=== PATIENT | female | born 1950 | race Two or more races ===

== ENCOUNTER 2020-06-17 17:35 | Inpatient (IN) | payer MEDICAID ==
[~2020-06-17] VITALS: Ht 157.5 cm; Wt 62.6 kg
[2020-06-17] MEDS ORDERED: cefTRIAXone 1 GM in NS 55 ML IV ONE (17:45)
[2020-06-17] MEDS ORDERED: dexAMETHasone 10mg/ml Inj IV ONE (17:45)
[2020-06-17] MEDS ORDERED: Azithromycin 500 MG in NS 275 ML IVPB ONE (17:45)
[2020-06-17 18:14] VITALS: BP 129/62
[2020-06-17 18:34] LABS: ANION GAP 11 mmol/L (5-15); BLOOD UREA NITROGEN 77 mg/dL (7-18); CALCIUM 8.5 MG/DL (8.5-10.1); CARBON DIOXIDE 27 MMOL/L (21-32); CHLORIDE 108 MMOL/L (98-107); CREATININE 1.6 MG/DL (0.55-1.30); POTASSIUM 3.5 MMOL/L (3.5-5.1); SODIUM 146 MMOL/L (136-145)
[2020-06-17 18:39] LABS: BASOPHILS % (AUTO) 0.2 % (0.0-2.0); HEMOGLOBIN 13.2 G/DL (12.0-16.0); LYMPHOCYTES % (AUTO) 7.4 % (20.0-45.0); MEAN CORPUSCULAR VOLUME 88 FL (80-99); MONOCYTES % (AUTO) 3.3 % (1.0-10.0); NEUTROPHILS % (AUTO) 89.1 % (45.0-75.0); PLATELET COUNT 341 K/UL (150-450); RED BLOOD COUNT 4.43 M/UL (4.20-5.40); RED CELL DISTRIBUTION WIDTH 11.3 % (11.6-14.8); WHITE BLOOD COUNT 15.5 K/UL (4.8-10.8)
--- NOTE | 2020-06-17 18:40 | NUR ---
ED Nurse Note:pt. was BIBA from home with respiratory distress, covid positive, pt. is A/Ox4 blood and cultures sent to labs, given IV fluids and meds, placed on isolation and laboratory monitor
[2020-06-17 18:51] LABS: ALANINE AMINOTRANSFERASE 55 U/L (12-78); ALBUMIN/GLOBULIN RATIO 0.6 (1.0-2.7); ALKALINE PHOSPHATASE 68 U/L (46-116); ASPARTATE AMINO TRANSFERASE 95 U/L (15-37); CREATINE KINASE 542 U/L (26-308); FERRITIN 222 NG/ML (8-388); LACTATE DEHYDROGENASE 1095 U/L (81-234)
--- NOTE | 2020-06-17 19:08 | Emergency Room Report ---
History of Present Illness General Chief Complaint: Dyspnea/Respdistress Source: Patient Present Illness HPI Patient has been ill for 6 days. She had a test for Covid that was positive. She was with her son. She has been having muscle aches. She was feeling dizzy and somewhat out of breath with walking and therefore 911 was called. Apparently they state her initial O2 saturation was 52%. She did not appear to be in distress. They placed the patient on 100% nonrebreather and her oxygen saturation teresa to 88 to 92%. With minimal exertion apparently her oxygen saturation decreased. The patient mainly complains of feeling weakness with trying to ambulate and some dizziness. She is felt feverish but no documented temperature. The patient has a history of hypertension. The patient is prediabetic. No chills, sore throat, chest pain, palpitations, nausea, vomiting, diarrhea, dysuria, abdominal pain, rashes, depression, anxiety, visual changes, headache. 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 Lives with son Reviewed Nursing Documentation: PMH: Agreed; PSxH: Agreed Nursing Documentation-[facility] Past Medical History: No History, Except For Hx Hypertension: Yes Review of Systems All Other Systems: negative except mentioned in HPI Physical Exam Vital Signs Date Time Temp Pulse Resp B/P (MAP) Pulse Ox O2 Delivery O2 Flow Rate FiO2 06/17/20 17:36 100.9 86 16 129/62 (84) 87 Non-Rebreather 15.0 Sp02 EP Interpretation: reviewed, abnormal - Interpreted as low by me General Appearance: GCS 15 - Sometimes slightly confused, non-toxic, mild distress Head: normocephalic Eyes: bilateral eye normal inspection ENT: moist mucus membranes Neck: supple Respiratory: no retraction, no accessory muscle use, respiratory distress - Minimal with tachypnea, crackles Cardiovascular #1: regular rate, rhythm, no edema Cardiovascular #2: 2+ radial (R) Gastrointestinal: normal inspection, non tender, soft, no mass, non-distended, decreased bowel sounds Genitourinary: no CVA tenderness Musculoskeletal: back normal, normal range of motion, no calf tenderness Neurologic: alert, oriented x3, grossly normal Psychiatric: mood/affect normal - Occasionally sometimes confused Skin: no rash, warm/dry Procedures Critical Care Time Critical Care Time Total Critical Care Time: 35 min bedside evaluation and treatment excludes procedures (EKG). Reason for critical care: hypoxia, proning, COVID pneumonia, repeat evaluations Possible complications: hypotension, hypertension, TN, shock, arrhythmias, metabolic acidosis, end organ damage, respiratory failure. Interventions: dexamethasone, antibiotics, oxygen titration, proning, repeat evaluations Course: Covid positive patient presents with hypoxia and respiratory distress. Evaluation reveals bilateral infiltrates. Patient saturations in the low 90s with desaturation with minimal movement. Treatment with dexamethasone and antibiotics. Minimally elevated D-dimer led to administration of Lovenox. Patient still deciding with minimal movement and advised and observed with proning. Improvement with proning. Still the degree of hypoxia needs to be closely watched and therefore the patient needs admission to stepdown unit. Consultations: nursing staff, EMS, family, admitting physician, RT Performed by: Dr. Valenzuela Tolerated well condition = critical Medical Decision Making Diagnostic Impression: Primary Impression: Pneumonia due to COVID-19 virus Additional Impressions: Hypoxia Renal insufficiency Elevated d-dimer ER Course Covid positive patient presents with hypoxia. Differential includes COVID-19 pneumonia, pulmonary embolus, acute myocardial infarction, other pneumonia amongst others. Evaluation includes EKG, chest x-ray and labs. Patient is placed on a knuckle strap sewer. Oxygen is administered. Patient without wheezes but clinically has COVID-19 pneumonia. Patient saturation 93% on 6 L by nasal cannula. Chest x-ray with bilateral infiltrates consistent with Covid pneumonia. Dexamethasone, azithromycin and rocephin ordered. Discussed that mother needs to be admitted with patient's son. Leukocytosis. Renal insufficiency. Elevated D dimer. Lovenox ordered. Elevated lactic acid. Fluid bolus had been ordered. Patient desat with minimal exertion. Proning L and R lateral decubitus. Improved with proning. Repeat lactic acid improved. Discussed with admitting MD. concern over need for aggressive observation and care. Admitted to stepdown unit. Laboratory Tests Test 06/17/20 18:10 06/17/20 19:49 06/17/20 20:18 White Blood Count 15.5 K/UL (4.8-10.8) H Red Blood Count 4.43 M/UL (4.20-5.40) Hemoglobin 13.2 G/DL (12.0-16.0) Hematocrit 39.0 % (37.0-47.0) Mean Corpuscular Volume 88 FL (80-99) Mean Corpuscular Hemoglobin 29.7 PG (27.0-31.0) Mean Corpuscular Hemoglobin Concent 33.7 G/DL (32.0-36.0) Red Cell Distribution Width 11.3 % (11.6-14.8) L Platelet Count 341 K/UL (150-450) Mean Platelet Volume 8.0 FL (6.5-10.1) Neutrophils (%) (Auto) 89.1 % (45.0-75.0) H Lymphocytes (%) (Auto) 7.4 % (20.0-45.0) L Monocytes (%) (Auto) 3.3 % (1.0-10.0) Eosinophils (%) (Auto) 0.0 % (0.0-3.0) Basophils (%) (Auto) 0.2 % (0.0-2.0) Prothrombin Time 11.1 SEC (9.30-11.50) Prothrombin Time INR 1.0 (0.9-1.1) Activated Partial Thromboplast Time 23 SEC (23-33) D-Dimer 1.08 mg/L FEU (0.00-0.49) H Sodium Level 146 MMOL/L (136-145) H Potassium Level 3.5 MMOL/L (3.5-5.1) Chloride Level 108 MMOL/L (98-107) H Carbon Dioxide Level 27 MMOL/L (21-32) Anion Gap 11 mmol/L (5-15) Blood Urea Nitrogen 77 mg/dL (7-18) H Creatinine 1.6 MG/DL (0.55-1.30) H Estimated Glomerular Filtration Rate 31.8 mL/min (>60) Glucose Level 168 MG/DL (74-106) H Lactic Acid Level 3.70 mmol/L (0.4-2.0) H 2.30 mmol/L (0.66-2.22) H Calcium Level 8.5 MG/DL (8.5-10.1) Magnesium Level 3.9 MG/DL (1.8-2.4) H Ferritin 222 NG/ML (8-388) Total Bilirubin 1.0 MG/DL (0.2-1.0) Aspartate Amino Transferase (AST) 95 U/L (15-37) H Alanine Aminotransferase (ALT) 55 U/L (12-78) Alkaline Phosphatase 68 U/L (46-116) Lactate Dehydrogenase 1095 U/L (81-234) H Total Creatine Kinase 542 U/L (26-308) H Troponin I 0.003 ng/mL (0.000-0.056) C-Reactive Protein, Quantitative 4.1 mg/dL (0.00-0.90) H Pro-B-Type Natriuretic Peptide 658 pg/mL (0-125) H Total Protein 7.7 G/DL (6.4-8.2) Albumin 3.0 G/DL (3.4-5.0) L Globulin 4.7 g/dL Albumin/Globulin Ratio 0.6 (1.0-2.7) L Lipase 226 U/L (73-393) Urine Color Pale yellow Urine Appearance Clear Urine pH 6 (4.5-8.0) Urine Specific [place] 1.010 (1.005-1.035) Urine Protein Negative (NEGATIVE) Urine Glucose (UA) Negative (NEGATIVE) Urine Ketones Negative (NEGATIVE) Urine Blood Negative (NEGATIVE) Urine Nitrite Negative (NEGATIVE) Urine Bilirubin Negative (NEGATIVE) Urine Urobilinogen Normal MG/DL (0.0-1.0) Urine Leukocyte Esterase 1+ (NEGATIVE) H Urine RBC 0-2 /HPF (0 - 2) Urine WBC 2-4 /HPF (0 - 2) Urine Squamous Epithelial Cells Few /LPF (NONE/OCC) Urine Bacteria Few /HPF (NONE) EKG Diagnostic Results Rate: normal Rhythm: NSR ST Segments: no acute changes - NSSTTW changes Rhythm Strip Diag. Results EP Interpretation: yes Rhythm: NSR, no PVC's, no ectopy Chest X-Ray Diagnostic Results Chest X-Ray Diagnostic Results : Chest X-Ray Ordered: Yes # of Views/Limited/Complete: 1 View Indication: Other EP Interpretation: Yes Interpretation: no effusion, no pneumothorax, other - bilateral infiltrates Impression: Other Electronically Signed by: Electronically signed by Selvin Valenzuela MD Last Vital Signs Date Time Temp Pulse Resp B/P (MAP) Pulse Ox O2 Delivery O2 Flow Rate FiO2 06/17/20 22:51 Non-Rebreather 15.0 06/17/20 20:20 99.0 78 22 105/79 95 Status: improved Disposition: ADMITTED INPATIENT Condition: Critical Referrals: NOT CHOSEN IPA/,REFERRING (PCP) Selvin Valenzuela MD Jun 17, 2020 19:08
[2020-06-17] MEDS ORDERED: Enoxaparin 80mg Inj SUBQ STA (19:20)
--- NOTE | 2020-06-17 19:25 | NUR ---
ED Nurse Note: Recived care from [place]. Pt is resting comfortably. PTs SPO2 was 88% on NC. Placed on simple mask and then NRB 15L. SPO2 is now 95%.
[2020-06-17 19:27] VITALS: BP 103/72
--- NOTE | 2020-06-17 20:31 | NUR ---
ED Nurse Note: Urine sent to lab, pt was incontinent of bowel, changed bed shets and gown.
[2020-06-17 20:53] LABS: APPEARANCE,URINE CLEAR; BILIRUBIN, URINE NEGATIVE (NEGATIVE); COLOR,URINE PALE YELLOW; GLUCOSE, URINE (UA) NEGATIVE (NEGATIVE); KETONES,URINE NEGATIVE (NEGATIVE); LEUKOCYTE ESTERASE ,URINE 1+ (NEGATIVE); NITRITE,URINE NEGATIVE (NEGATIVE); PH,URINE 6 (4.5-8.0); PROTEIN,URINE NEGATIVE (NEGATIVE); UROBILINOGEN,URINE NORMAL MG/DL (0.0-1.0)
--- NOTE | 2020-06-17 21:58 | NUR ---
ED Nurse Note: Report given to Iris [id number]
--- NOTE | 2020-06-17 22:23 | NUR ---
ED Nurse Note: Unable to do med recon. Patient forgot the name & dosage of meds shes taking
--- NOTE | 2020-06-17 22:47 | NUR ---
NURSE NOTES: notified Dr. Burleson regarding all the abnormal labs, and VS, with ER meds. will wait for call back for admission order.
[2020-06-17 23:00] VITALS: BP 113/61
--- NOTE | 2020-06-17 23:00 | NUR ---
NURSE NOTES: received pt from TEVIN AUST[facility]., no belonging noted, confirmed with pt. IV sites Left 20G AC and left hand 20G intact, clean, and patent. pt is AOx4 Kinyarwanda speaker. attached playground monitor pt the pt, screen shows NSR. vital stable, no fever at this time. pt is in non-breather 15L O2sat is at 91%. pt is voiding with bedside commode. ABD round, non-tender, soft, and active on 4 quadrants. no edema noted at this time. no skin issue, skin intact, clean, and little scaly. pupil 3mm bilateral. bilateral hands general farmer 5/5, bilateral foot 5/5. pt states no pain at this time.no active bleeding noted. call light within reach. will continue to monitor pt with plan of care. bed at the lowest position, alarmed, and locked.
--- NOTE | 2020-06-17 23:12 | NUR ---
TRANSFER TO FLOOR: Patient transferred to as ordered, per ER MD. Report given to Dalila AUSTIN ICU overflow [id number]. Belongings sent with pt.vitals re stable, transported with RN and passenger locomotive engineer.
[2020-06-18] VITALS (7 sets, daily range): BP systolic 105–128; BP diastolic 62–72
--- NOTE | 2020-06-18 | NUR ---
NURSE NOTES: pt is now on bipap, O2sat is at 100%. pt states no pain at this time, will continue to monitor pt.
--- NOTE | 2020-06-18 00:10 | NUR ---
NURSE NOTES: made Dr. Butts aware regarding new ABG result and received order of bipap. will carry on.
--- NOTE | 2020-06-18 02:00 | NUR ---
NURSE NOTES: assisted pt to urinate in bedside commode, yellow urine noted. no active bleeding noted at this time. call light within reach.
--- NOTE | 2020-06-18 04:00 | NUR ---
NURSE NOTES: assisted pt to the bedside commode. pt cooperates well, pt states no pain at this time.
[2020-06-18 05:06] LABS: HEMATOCRIT 36.1 % (37.0-47.0); HEMOGLOBIN 12.1 G/DL (12.0-16.0); MEAN CORPUSCULAR VOLUME 89 FL (80-99); PLATELET COUNT 278 K/UL (150-450); RED BLOOD COUNT 4.06 M/UL (4.20-5.40); RED CELL DISTRIBUTION WIDTH 11.2 % (11.6-14.8); WHITE BLOOD COUNT 11.6 K/UL (4.8-10.8)
[2020-06-18 05:25] LABS: ALBUMIN 2.6 G/DL (3.4-5.0); ALBUMIN/GLOBULIN RATIO 0.6 (1.0-2.7); BILIRUBIN,TOTAL 0.6 MG/DL (0.2-1.0); CALCIUM 8.3 MG/DL (8.5-10.1); CREATININE 1.3 MG/DL (0.55-1.30); POTASSIUM 3.3 MMOL/L (3.5-5.1)
--- NOTE | 2020-06-18 06:39 | Consultation ---
History of Present Illness General Chief Complaint: Dyspnea/Respdistress Present Illness Allergies: Coded Allergies: No Known Allergies (Unverified , 06/17/20) Patient History Healthcare decision maker N Resuscitation status Advanced Directive on File Physical Exam Last 24 Hour Vital Signs Date Time Temp Pulse Resp B/P (MAP) Pulse Ox O2 Delivery O2 Flow Rate FiO2 06/18/20 04:00 Bi-pap 100.0 06/18/20 04:00 100.0 06/18/20 03:41 65 35 96 100 06/18/20 03:32 62 06/18/20 01:00 69 126/70 (88) 100 06/18/20 00:35 72 28 100 100 06/18/20 00:35 72 28 100 Bi-Pap 100 06/18/20 00:00 76 06/18/20 00:00 Bi-pap 100.0 06/18/20 00:00 98.5 78 113/69 (84) 94 06/18/20 00:00 100.0 06/17/20 23:00 98.7 82 113/61 (78) 96 06/17/20 22:51 Non-Rebreather 15.0 06/17/20 22:37 91 06/17/20 20:20 99.0 78 22 105/79 95 Non-Rebreather 15.0 06/17/20 19:27 99.0 78 16 103/72 95 Non-Rebreather 15.0 06/17/20 18:52 100.3 06/17/20 18:37 81 16 Nasal Cannula 8.0 06/17/20 18:14 100.9 81 16 129/62 95 Nasal Cannula 8.0 06/17/20 17:36 100.9 86 16 129/62 (84) 87 Non-Rebreather 15.0 Laboratory Tests Test 06/17/20 18:10 06/17/20 19:49 06/17/20 20:18 06/17/20 23:50 White Blood Count 15.5 K/UL (4.8-10.8) H Red Blood Count 4.43 M/UL (4.20-5.40) Hemoglobin 13.2 G/DL (12.0-16.0) Hematocrit 39.0 % (37.0-47.0) Mean Corpuscular Volume 88 FL (80-99) Mean Corpuscular Hemoglobin 29.7 PG (27.0-31.0) Mean Corpuscular Hemoglobin Concent 33.7 G/DL (32.0-36.0) Red Cell Distribution Width 11.3 % (11.6-14.8) L Platelet Count 341 K/UL (150-450) Mean Platelet Volume 8.0 FL (6.5-10.1) Neutrophils (%) (Auto) 89.1 % (45.0-75.0) H Lymphocytes (%) (Auto) 7.4 % (20.0-45.0) L Monocytes (%) (Auto) 3.3 % (1.0-10.0) Eosinophils (%) (Auto) 0.0 % (0.0-3.0) Basophils (%) (Auto) 0.2 % (0.0-2.0) Prothrombin Time 11.1 SEC (9.30-11.50) Prothromb Time International Ratio 1.0 (0.9-1.1) Activated Partial Thromboplast Time 23 SEC (23-33) D-Dimer 1.08 mg/L FEU (0.00-0.49) H Sodium Level 146 MMOL/L (136-145) H Potassium Level 3.5 MMOL/L (3.5-5.1) Chloride Level 108 MMOL/L (98-107) H Carbon Dioxide Level 27 MMOL/L (21-32) Anion Gap 11 mmol/L (5-15) Blood Urea Nitrogen 77 mg/dL (7-18) H Creatinine 1.6 MG/DL (0.55-1.30) H Estimat Glomerular Filtration Rate 31.8 mL/min (>60) Glucose Level 168 MG/DL (74-106) H Lactic Acid Level 3.70 mmol/L (0.4-2.0) H 2.30 mmol/L (0.66-2.22) H Calcium Level 8.5 MG/DL (8.5-10.1) Magnesium Level 3.9 MG/DL (1.8-2.4) H Ferritin 222 NG/ML (8-388) Total Bilirubin 1.0 MG/DL (0.2-1.0) Aspartate Amino Transf (AST/SGOT) 95 U/L (15-37) H Alanine Aminotransferase (ALT/SGPT) 55 U/L (12-78) Alkaline Phosphatase 68 U/L (46-116) Lactate Dehydrogenase 1095 U/L (81-234) H Total Creatine Kinase 542 U/L (26-308) H Troponin I 0.003 ng/mL (0.000-0.056) C-Reactive Protein, Quantitative 4.1 mg/dL (0.00-0.90) H Pro-B-Type Natriuretic Peptide 658 pg/mL (0-125) H Total Protein 7.7 G/DL (6.4-8.2) Albumin 3.0 G/DL (3.4-5.0) L Globulin 4.7 g/dL Albumin/Globulin Ratio 0.6 (1.0-2.7) L Lipase 226 U/L (73-393) Urine Color Pale yellow Urine Appearance Clear Urine pH 6 (4.5-8.0) Urine Specific [place] 1.010 (1.005-1.035) Urine Protein Negative (NEGATIVE) Urine Glucose (UA) Negative (NEGATIVE) Urine Ketones Negative (NEGATIVE) Urine Blood Negative (NEGATIVE) Urine Nitrite Negative (NEGATIVE) Urine Bilirubin Negative (NEGATIVE) Urine Urobilinogen Normal MG/DL (0.0-1.0) Urine Leukocyte Esterase 1+ (NEGATIVE) H Urine RBC 0-2 /HPF (0 - 2) Urine WBC 2-4 /HPF (0 - 2) Urine Squamous Epithelial Cells Few /LPF (NONE/OCC) Urine Bacteria Few /HPF (NONE) Arterial Blood pH 7.507 (7.350-7.450) Arterial Blood Partial Pressure CO2 32.2 mmHg (35.0-45.0) L Arterial Blood Partial Pressure O2 63.5 mmHg (75.0-100.0) L Arterial Blood HCO3 24.9 mmol/L (22.0-26.0) Arterial Blood Oxygen Saturation 91.3 % (95-100) L Arterial Blood Base Excess 2.4 (-2-2) H Amrit Test Positive Test 06/18/20 03:30 06/18/20 06:05 White Blood Count 11.6 K/UL (4.8-10.8) H Red Blood Count 4.06 M/UL (4.20-5.40) L Hemoglobin 12.1 G/DL (12.0-16.0) Hematocrit 36.1 % (37.0-47.0) L Mean Corpuscular Volume 89 FL (80-99) Mean Corpuscular Hemoglobin 29.9 PG (27.0-31.0) Mean Corpuscular Hemoglobin Concent 33.6 G/DL (32.0-36.0) Red Cell Distribution Width 11.2 % (11.6-14.8) L Platelet Count 278 K/UL (150-450) Mean Platelet Volume 8.5 FL (6.5-10.1) Neutrophils (%) (Auto) % (45.0-75.0) Lymphocytes (%) (Auto) % (20.0-45.0) Monocytes (%) (Auto) % (1.0-10.0) Eosinophils (%) (Auto) % (0.0-3.0) Basophils (%) (Auto) % (0.0-2.0) Neutrophils % (Manual) Pending Lymphocytes % (Manual) Pending Platelet Estimate Pending Platelet Morphology Pending Sodium Level 148 MMOL/L (136-145) H Potassium Level 3.3 MMOL/L (3.5-5.1) L Chloride Level 112 MMOL/L (98-107) H Carbon Dioxide Level 27 MMOL/L (21-32) Anion Gap 9 mmol/L (5-15) Blood Urea Nitrogen 56 mg/dL (7-18) H Creatinine 1.3 MG/DL (0.55-1.30) Estimat Glomerular Filtration Rate 40.5 mL/min (>60) Glucose Level 214 MG/DL (74-106) H Calcium Level 8.3 MG/DL (8.5-10.1) L Total Bilirubin 0.6 MG/DL (0.2-1.0) Aspartate Amino Transf (AST/SGOT) 90 U/L (15-37) H Alanine Aminotransferase (ALT/SGPT) 48 U/L (12-78) Alkaline Phosphatase 63 U/L (46-116) Troponin I Pending Total Protein 7.3 G/DL (6.4-8.2) Albumin 2.6 G/DL (3.4-5.0) L Globulin 4.7 g/dL Albumin/Globulin Ratio 0.6 (1.0-2.7) L Lactic Acid Level Pending Height (Feet): 5 Height (Inches): 2.00 Weight (Pounds): 138 Medications Current Medications Medications (Trade) Dose Ordered Sig/Maya Route PRN Reason Start Time Stop Time Status Last Admin Dose Admin Acetaminophen (Tylenol) 500 mg Q4H PRN ORAL Mild Pain (Pain Scale 1-3) 06/18/20 00:15 07/18/20 00:14 Acetaminophen (Tylenol) 500 mg Q4H PRN ORAL Temp >100.5 06/18/20 00:15 07/18/20 00:14 Enoxaparin Sodium (Lovenox) 60 mg Q24H SUBQ 06/18/20 18:00 09/16/20 17:59 Assessment/Plan Assessment/Plan: Hematology Consultation RFC: High wbc DOS: 06/18/2020 REQ MD: Vidya Burr HPI Patient has been ill for 6 days. She had a test for Covid that was positive. She was with her son. She has been having muscle aches. She was feeling dizzy and somewhat out of breath with walking and therefore 911 was called. Apparently they state her initial O2 saturation was 52%. She did not appear to be in distress. They placed the patient on 100% nonrebreather and her oxygen saturation teresa to 88 to 92%. With minimal exertion apparently her oxygen saturation decreased. The patient mainly complains of feeling weakness with trying to ambulate and some dizziness. She is felt feverish but no documented temperature. The patient has a history of hypertension. The patient is prediabetic. No chi lls, sore throat, chest pain, palpitations, nausea, vomiting, diarrhea, dysuria, abdominal pain, rashes, depression, anxiety, visual changes, headache. Initally admitted to [facility] and this am transfered to sdu. 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 Lives with son Reviewed Nursing Documentation: PMH: Agreed; PSxH: Agreed Nursing Documentation-PMH Past Medical History: No History, Except For Hx Hypertension: Yes Review of Systems All Other Systems: negative except mentioned in HPI Physical Exam Vitals: reviewed, abnormal - Interpreted as low by me General: GCS 15 - Sometimes slightly confused, non-toxic, mild distress Head: normocephalic, moist mucus membranes Neck: supple Respiratory: no retraction, no accessory muscle use, respiratory distress - Minimal with tachypnea, crackles Cardiovascular: regular rate, rhythm, no edema Gastrointestinal: normal inspection, non tender, soft Genitourinary: no CVA tenderness Musculoskeletal: back normal Neurologic: alert, oriented x3, grossly normal Psychiatric: mood/affect normal - sometimes confused Skin: no rash, warm/dry Labs: noted Imaging: reviewed Assessment and recs # Leukocytosis with Pneumonia due to COVID-19 virus -> wbc trend 15-->11 --> ABX as per id --> imaging does show pna -> anticoag recommended # Anemia of chronic disease --> hgb 12 # Elevated ddimer due to covid --> duplex legs -> LOVENOX sq # Covid19++ with Hypoxia -> steriods, abx per id # Renal insufficiency -> per renal care # Sepsis due to above --> abx, fluid resuscitation # Dvt ppx lovenox sq Appreciate consultation and dw RN Jj Swann MD Jun 18, 2020 06:39
--- NOTE | 2020-06-18 07:33 | NUR ---
NURSE HAND-OFF REPORT: Important Events on Shift:[follow up lactic acid, troponin, ABG, chest x-ray. POTASSIUM low, sodium high] Patient Status: [stale] Diet: [npo] Pending Orders: [n/a] Pending Results/Labs:[lactic acid, troponin,] Pending MD notification:[n/a] Latest Vital Signs: Temperature 98.4 , Pulse 70 , B/P 105 /67 , Respiratory Rate 29 , O2 SAT 95 , Non-Rebreather, O2 Flow Rate 100.0 . Vital Sign Comment: [stable] EKG Rhythm: Sinus Rhythm Rhythm change?: N MD Notified?: N - MD Response: Latest Carney Fall Score: 45 Fall Risk: High Risk Safety Measures: Call light Within Reach, Bed Alarm Zone 3, Side Rails Side Rails x3, Bed position Low and Locked. Fall Precautions: Yellow Socks Yellow Gown Door Sign Patient Fall Education Report given to [kaley RN].
--- NOTE | 2020-06-18 07:55 | NUR ---
NURSE NOTES: Received patient from ICU, report given by aMranda AUSTIN. Patient in bed awake. Bipap in place with settings at 15/8, 100% FiO2, no acute distress, no complaints of discomfort at this time. IV lines intact. Maintained on NPO. HOB elevated. Bed locked in low position. Call light within reach. Will continue plan of care.
[2020-06-18] MEDS: dexAMETHasone 10mg/ml Inj IV SCH (09:53)
--- NOTE | 2020-06-18 10:06 | NUR ---
CASE MANAGEMENT:REVIEW 70 YR OLD FEMALE PRESENTED TO ER CC; SOB AND RESPIRATORY DISTRESS. SAT 52% ON RA SI: COVID PNA. HYPOXIA. RENAL INSUFF 101.0 86 16 129/62 87% ON 15L/NRB PH+7.50 PCO2-32.2 PO2-63.5 WBC+15.5 BUN+77 CR+1.6 IS: IV AZITHROMYCIN X1 IV DECADRON X1 1L NS BOLUS X1 IV ROCEPHIN X1 TYLENOL PO X1 LOVENOX SQ X1 : TO STEP DOWN UNIT DCP: FROM HOME
--- NOTE | 2020-06-18 10:41 | Diagnostic Imaging Report ---
Procedure: XRAY Chest 1v Reason for study: Shortness of breath. Comparison films: None. FINDINGS: A single one view chest is obtained. Extensive bilateral alveolar densities noted either infiltrates or edema. Cardiac and mediastinal silhouette are within normal limits. CP angles are sharp. The bony thorax appear unremarkable. IMPRESSION: Extensive bilateral alveolar densities, infiltrates and/or edema.
--- NOTE | 2020-06-18 10:51 | Diagnostic Imaging Report ---
EXAM: ULTRASOUND Venous Duplex Scan Marc Leg CLINICAL HISTORY: Leg pain and edema. COMPARISON: None TECHNIQUE: Doppler examination include grayscale images obtained with and without compression, and color and spectral doppler analysis. FINDINGS: Doppler examination shows normal spontaneity, phasicity, compressibility in the bilateral lower extremities. There is no thrombus identified by grayscale. Normal color and spectral flow is identified. There is no evidence of valvular incompetency or insufficiency. IMPRESSION: UNREMARKABLE VENOUS DUPLEX.
[2020-06-18] MEDS ORDERED: Loading Dose:Remdesivir 200mg/NS 210ml IV SCH ×2 (12:00)
--- NOTE | 2020-06-18 12:47 | Consultation ---
Consult Note Consult Note I am asked to evaluate the patient at the request of Dr. Owens for renal failure and electrolyte imbalances Patient seen in room 238 Discussed with RN Labs reviewed Chief Complaint: Dyspnea/Respdistress Patient has been ill for 6 days. She had a test for Covid that was positive. She was with her son. She has been having muscle aches. She was feeling dizzy and somewhat out of breath with walking and therefore 911 was called. Apparently they state her initial O2 saturation was 52%. She did not appear to be in distress. They placed the patient on 100% nonrebreather and her oxygen saturation teresa to 88 to 92%. With minimal exertion apparently her oxygen saturation decreased. The patient mainly complains of feeling weakness with trying to ambulate and some dizziness. She is felt feverish but no documented temperature. The patient has a history of hypertension. The patient is prediabetic. No chills, sore throat, chest pain, palpitations, nausea, vomiting, diarrhea, dysuria, abdominal pain, rashes, depression, anxiety, visual changes, headache. 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 HEAD AND NECK: [place] conjunctiva. HEART: Normal. LUNGS: Clear. The patient is on BiPAP with FiO2 of 100%. ABDOMEN: Soft. EXTREMITIES: She has no edema. NEUROLOGIC: She is awake, alert, responsive. LABORATORY AND DIAGNOSTIC DATA: WBC at the time of admission was 15.5, currently is 11.6, hemoglobin 12.1, hematocrit 36.1, platelets is 278. Sodium 148, potassium 3.3, chloride 100, bicarb 27, BUN 56, creatinine 1.3, glucose is 214, at the time of admission was 168. Lactic acid was 2.7 that is coming down to 2.3. Blood gas showed pO2 of 63.5. Chest x-ray official report is pending, but shows patchy infiltrates bilaterally. . Assessment/Plan 70-year-old female presents with COVID-19 pneumonia and hypoxia On admission has BUN of 77 and creatinine of 1.6. 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
[2020-06-18] MEDS: Docusate 100mg cap ORAL SCH ×2 (13:37→17:53)
--- NOTE | 2020-06-18 13:58 | Consultation ---
Consult Note Consult Note DATE OF CONSULTATION: 06/10/2020 CONSULTING PHYSICIAN: Charlie Sewell MD. ATTENDING PHYSICIAN: Dr. Clayton REASON FOR CONSULTATION: Hypoxia secondary to COVID-19 HISTORY OF PRESENT ILLNESS: Ms. Roni Myers is a 70-year-old female with past medical history of hypertension who presented to the ED for evaluation of myalgia, and shortness of breath x6 days. She was reported to be testing positive for COVID-19 recently with unknown date. She was hypoxic on arrival saturating at 52% however did not appear to be in distress. She was immediately placed on 100% nonrebreather and oxygen saturation improved to 92%. She denied chills, sore throat, chest pain, palpitations, nausea, vomiting, diarrhea, dysuria, abdominal pain, new rashes, depression, anxiety, visual changes, or headache. Chest x-ray was notable for extensive bilateral alveolar densities, infiltrates and/or edema. Her duplex undue that venous duplex ultrasound is unremarkable for DVT. She received broad-spectrum antibiotics, steroids, and Lovenox in ER and was admitted to the hospital for further management. PAST MEDICAL HISTORY: Hypertension MEDICATIONS: Full list of home medication not available at this time ALLERGIES: No known allergies FAMILY HISTORY: Unknown PERSONAL/SOCIAL HISTORY: Lives at home with son REVIEW OF SYSTEMS: None except mentioned in HPI PHYSICAL EXAMINATION: VITAL SIGNS: Blood pressure 108/62, heart rate 69, respiratory rate 33, weight 63 kg, height 107 undue that 157 cm General: Patient sitting up in bed watching TV, appears NAD on BiPAP. HEENT: Head exam reveals that the head is normocephalic, atraumatic without deformity or unusual swelling. Pupils are PERRLA. CHEST AND LUNGS: Crackles noted CARDIOVASCULAR: Reveals normal S1, S2 without murmurs, rubs, or clicks. ABDOMEN: Soft with no tenderness or organomegaly. RECTAL: Deferred. MUSCULOSKELETAL: There is no tenderness to palpation. Range of motion is normal. NEUROLOGICAL: Alert and oriented x3 , nonfocal LABORATORY DATA: Laboratory testing shows WBC 11.6, KRYS globin 12.1, hematocrit 36.1. Chemistries show sodium 148, potassium 3.3, chloride 112, BUN 56, glucose 214, calcium 8.3, AST 90 ABG shows pH 7.5, PCO2 32.2, PO2 63.5, O2 sat 91.3 Assessment/Plan 1. COVID-19 pneumonia -Currently pt is tolerating 60% FiO2 on BiPAP; will continue to wean as tolerated -Encourage proning -On Decadron, and remdesivir - can observe off abx since WBC improving, oxygen requirement improving, and afebrile; per ID 2. Leukocytosis -Likely secondary to #1 -WBC improving 3. Elevated D-dimer -Venous duplex ultrasound negative for DVT -On Lovenox for DVT prophylaxis 4. Renal insufficiency -On IV fluids - nephro following 5. Anemia of chronic disease -Hematology oncology following 6. Sepsis -Status post antibiotics, fluid resuscitation The care for this patient was discussed with my supervising physician. Time spent for this case was approximately 31 minutes. Dave Smith Jun 18, 2020 13:58
[2020-06-18] MEDS: 1/2NS w/KCl 20mEq 1000ml 1,000 ML IV SCH (15:22)
--- NOTE | 2020-06-18 15:53 | NUR ---
INSURANCE CLINICALS/REVIEW FAXED TO [facility] [phone]
[2020-06-18] MEDS ORDERED: METOPROLOL TART50 M1 ORAL (17:37)
[2020-06-18] MEDS ORDERED: HYZAAR 100-12.1 EACH ORAL (17:37)
[2020-06-18] MEDS ORDERED: AMLODIPINE BESYL5 MG ORAL (17:37)
[2020-06-18] MEDS: NovoLOG Insulin Flexpen SUBQ SCH (17:53)
[2020-06-18] MEDS ORDERED: CATAPRES0.1 MG ORAL (17:54)
[2020-06-18] MEDS ORDERED: MELOXICAM15 MG PO (17:54)
[2020-06-18] MEDS ORDERED: LORATADINE10 M1 PO (17:54)
[2020-06-18] MEDS ORDERED: ASPIRIN-LOW81 MG ORAL (17:54)
[2020-06-18] MEDS ORDERED: ATORVASTATIN CA10 MG ORAL (17:54)
[2020-06-18] MEDS ORDERED: MONTELUKAST SOD10 MG ORAL (17:54)
[2020-06-18] MEDS ORDERED: PROMETHAZINE-D118 ML ORAL (17:54)
[2020-06-18] MEDS: Enoxaparin 60mg Inj SUBQ SCH (17:55)
[2020-06-18] MEDS ORDERED: DOXYCYCLINE HY100 M6 PO (17:58)
[2020-06-18] MEDS ORDERED: CLOBETASOL PROP30 GM TP (17:58)
--- NOTE | 2020-06-18 18:46 | NUR ---
NURSE HAND-OFF REPORT: Important Events on Shift: bipap titrated down to 70% FiO2 Patient Status: alert Diet: npo Pending Orders: Pending Results/Labs: Pending MD notification: Latest Vital Signs: Temperature 98.1 , Pulse 71 , B/P 119 /72 , Respiratory Rate 28 , O2 SAT 93 , Non-Rebreather, O2 Flow Rate 70.0 . Vital Sign Comment: EKG Rhythm: Sinus Rhythm Rhythm change?: N MD Notified?: N - MD Response: Latest Carney Fall Score: 45 Fall Risk: High Risk Safety Measures: Call light Within Reach, Bed Alarm Zone 1, Side Rails Side Rails x2, Bed position Low and Locked. Fall Precautions: Yellow Socks Yellow Gown Door Sign Patient Fall Education Addendum: 06/18/20 at 1943 by Delaney Cook RN NURSE NOTES: Report given to Princess AUSTIN.
--- NOTE | 2020-06-18 19:35 | NUR ---
NURSE NOTES: Received report from NORMAN lEizondo. Pt is seen lying in bed in semi- flores's position. Pt is alert, oriented x 4. Pt is verbally responsive. Pt is on BIPAP 15/8 , with Fio2- 70%, o2 sat -95%, not in respiratory distress. Pt on NPO. With Right wrist g20 intacvt and oatent. With bedside commode near patient's bed. Call light within reach. NO pain noted. Bed in lowest position, call light within reach. Continue to plan of care.
[2020-06-18] MEDS: Pantoprazole Inj IVP SCH (21:01)
--- NOTE | 2020-06-18 22:00 | NUR ---
NURSE NOTES: assist to bedside commode, tolerating well. o2 sat- 93%.
[2020-06-18] MEDS ORDERED: Tubing IV Secondary IV ONE (22:37)
[2020-06-19] VITALS: BP 128/72
--- NOTE | 2020-06-19 00:24 | NUR ---
NURSE NOTES: Pt is sleeping, o2 sat-95%. No signs of distress.
[2020-06-19] MEDS: 1/2NS w/KCl 20mEq 1000ml 1,000 ML IV SCH (03:52)
[2020-06-19 04:00] VITALS: BP 129/61
--- NOTE | 2020-06-19 05:05 | NUR ---
NURSE NOTES: Assisted in ADL, tolerating BIPAP o2 sat- 98% with ambulation.
[2020-06-19] MEDS: NovoLOG Insulin Flexpen SUBQ SCH ×4 (05:27→18:00)
[2020-06-19 07:03] LABS: HEMATOCRIT 37.4 % (37.0-47.0); HEMOGLOBIN 12.3 G/DL (12.0-16.0); MEAN CORPUSCULAR VOLUME 91 FL (80-99); PLATELET COUNT 294 K/UL (150-450); RED BLOOD COUNT 4.13 M/UL (4.20-5.40); RED CELL DISTRIBUTION WIDTH 11.5 % (11.6-14.8); WHITE BLOOD COUNT 11.2 K/UL (4.8-10.8)
--- NOTE | 2020-06-19 07:15 | NUR ---
NURSE HAND-OFF REPORT: Important Events on Shift: ambulates, NPO for BIPAP. No acute events Patient Status: guarded and stable Diet: NPO Pending Orders: None Pending Results/Labs: none Pending MD notification: none Latest Vital Signs: Temperature 97.7 , Pulse 70 , B/P 129 /61 , Respiratory Rate 20 , O2 SAT 97 , Non-Rebreather, O2 Flow Rate 70.0 . Vital Sign Comment: WNML EKG Rhythm: Sinus Rhythm Rhythm change?: N MD Notified?: N - MD Response: Latest Carney Fall Score: 45 Fall Risk: High Risk Safety Measures: Call light Within Reach, Bed Alarm Zone 1, Side Rails Side Rails x2, Bed position Low and Locked. Fall Precautions: Yellow Socks Yellow Gown Door Sign Patient Fall Education Report given to [NORMAN Salinas].
[2020-06-19 07:25] LABS: % IRON SATURATION 22 % (15-50); CHOLESTEROL 145 MG/DL (< 200); HDL CHOLESTEROL 27 MG/DL (40-60); IRON 46 ug/dL (50-175); TOTAL IRON BINDING CAPACITY 212 ug/dL (250-450); TRIGLYCERIDES 203 MG/DL (30-150)
--- NOTE | 2020-06-19 07:27 | Hematology/Onc Progress Note ---
Assessment/Plan Assessment/Plan Assessment and recs # Leukocytosis with Pneumonia due to COVID-19 virus -> wbc trend 15-->11 --> ABX as per id --> imaging does show pna --> anticoag recommended --> on remdesivir # Anemia of chronic disease --> hgb 12 # Elevated ddimer due to covid --> duplex legs -> LOVENOX sq # Covid19++ with Hypoxia -> steriods, abx per id # Renal insufficiency -> per renal care # Sepsis due to above --> abx, fluid resuscitation # Dvt ppx lovenox sq Appreciate consultation and dw RN Subjective Cardiovascular: Denies: no symptoms, chest pain, edema, irregular heart rate, lightheadedness, palpitations, syncope, other Gastrointestinal/Abdominal: Denies: no symptoms, abdomen distended, abdominal pain, black stools, tarry stools, blood in stool, constipated, diarrhea, difficulty swallowing, nausea, poor appetite, poor fluid intake, rectal bleeding, vomiting, other Genitourinary: Denies: no symptoms, burning, discharge, frequency, flank pain, hematuria, incontinence, pain, urgency, other Neurologic/Psychiatric: Denies: no symptoms, anxiety, depressed, emotional problems, headache, numbness, paresthesia, pre-existing deficit, seizure, tingling, tremors, weakness, other Endocrine: Denies: no symptoms, excessive sweating, flushing, intolerance to cold, intolerance to heat, increased hunger, increased thirst, increased urine, unexplained weight gain, unexplained weight loss, other Hematologic/Lymphatic: Denies: no symptoms, anemia, easy bleeding, easy bruising, adenopathy, other Allergies: Coded Allergies: No Known Allergies (Unverified , 06/17/20) Subjective 06/19 sleeping, comfortable, on bipap, meds have been reviewed Objective Objective Current Medications Medications (Trade) Dose Ordered Sig/Maya Route PRN Reason Start Time Stop Time Status Last Admin Dose Admin Acetaminophen (Tylenol) 500 mg Q4H PRN ORAL Mild Pain (Pain Scale 1-3) 06/18/20 00:15 07/18/20 00:14 Acetaminophen (Tylenol) 500 mg Q4H PRN ORAL Temp >100.5 06/18/20 00:15 07/18/20 00:14 Dexamethasone Sodium Phosphate (Decadron 10mg/ ml Inj) 6 mg DAILY IV 06/18/20 09:45 06/27/20 09:01 06/18/20 09:53 Dextrose (Dextrose 50%) 25 ml Q30M PRN IV Hypoglycemia 06/18/20 14:15 09/16/20 14:14 Dextrose (Dextrose 50%) 50 ml Q30M PRN IV Hypoglycemia 06/18/20 14:15 09/16/20 14:14 Docusate Sodium (Colace) 100 mg THREE TIMES A DAY ORAL 06/18/20 13:00 07/18/20 12:59 06/18/20 17:53 Enoxaparin Sodium (Lovenox) 60 mg Q12HR SUBQ 06/18/20 18:00 09/16/20 17:59 06/18/20 17:55 Insulin Aspart (NovoLOG) while NPO Q6HR SUBQ 06/18/20 18:00 09/16/20 17:59 06/18/20 17:53 Pantoprazole (Protonix) 40 mg EVERY 12 HOURS IVP 06/18/20 21:00 07/18/20 20:59 06/18/20 21:01 Remdesivir 100 mg/ Sodium Chloride 250 ml @ 250 mls/hr Q24H IV 06/19/20 12:00 06/22/20 12:59 Sodium 1,000 ml @ 75 mls/hr [id number] IV 06/18/20 15:00 07/18/20 14:59 06/19/20 03:52 Last 24 Hour Vital Signs Date Time Temp Pulse Resp B/P (MAP) Pulse Ox O2 Delivery O2 Flow Rate FiO2 06/19/20 04:00 97.7 70 20 129/61 (83) 97 06/19/20 04:00 Bi-pap 70.0 06/19/20 04:00 70.0 06/19/20 04:00 70 06/19/20 03:10 63 27 96 70 06/19/20 00:00 65 06/19/20 00:00 98.1 82 25 128/72 (90) 96 06/19/20 00:00 Bi-pap 70.0 06/19/20 00:00 Bi-pap 70.0 06/19/20 00:00 98.1 82 22 128/72 (90) 96 06/18/20 23:14 76 27 97 70 06/18/20 20:00 Bi-pap 70.0 06/18/20 20:00 97.5 75 20 121/69 (86) 95 06/18/20 20:00 68 06/18/20 20:00 70.0 06/18/20 19:20 68 28 97 70 06/18/20 16:00 Bi-pap 70.0 06/18/20 16:00 98.1 71 28 119/72 (88) 93 06/18/20 16:00 74 06/18/20 16:00 70.0 06/18/20 14:40 72 35 93 60 06/18/20 12:00 60.0 06/18/20 11:46 70.0 06/18/20 11:45 97.6 69 33 108/62 (77) 95 06/18/20 11:43 Bi-pap 70.0 06/18/20 11:34 63 06/18/20 11:00 72 28 94 60 06/18/20 10:00 96 70 06/18/20 08:00 100.0 06/18/20 08:00 98.1 76 30 128/67 (87) 100 06/18/20 08:00 Bi-pap 100.0 06/18/20 07:46 68 06/18/20 06:40 70 29 95 100 06/18/20 04:00 Bi-pap 100.0 06/18/20 04:00 98.4 87 105/67 (80) 100 06/18/20 04:00 100.0 06/18/20 03:41 65 35 96 100 06/18/20 03:32 62 06/18/20 01:00 69 126/70 (88) 100 06/18/20 00:35 72 28 100 100 06/18/20 00:35 72 28 100 Bi-Pap 100 06/18/20 00:00 76 06/18/20 00:00 Bi-pap 100.0 06/18/20 00:00 98.5 78 113/69 (84) 94 06/18/20 00:00 100.0 06/17/20 23:00 98.7 82 113/61 (78) 96 06/17/20 22:51 Non-Rebreather 15.0 06/17/20 22:37 91 06/17/20 20:20 99.0 78 22 105/79 95 Non-Rebreather 15.0 06/17/20 19:27 99.0 78 16 103/72 95 Non-Rebreather 15.0 06/17/20 18:52 100.3 06/17/20 18:37 81 16 Nasal Cannula 8.0 06/17/20 18:14 100.9 81 16 129/62 95 Nasal Cannula 8.0 06/17/20 17:36 100.9 86 16 129/62 (84) 87 Non-Rebreather 15.0 Intake and Output 06/18/20 06/19/20 19:00 07:00 Intake Total 75 ml 825 ml Balance 75 ml 825 ml Intake IV Total 75 ml 825 ml # Voids 2 3 Labs Test 06/17/20 18:10 06/17/20 19:49 06/17/20 20:18 06/17/20 23:50 White Blood Count 15.5 K/UL (4.8-10.8) Red Blood Count 4.43 M/UL (4.20-5.40) Hemoglobin 13.2 G/DL (12.0-16.0) Hematocrit 39.0 % (37.0-47.0) Mean Corpuscular Volume 88 FL (80-99) Mean Corpuscular Hemoglobin 29.7 PG (27.0-31.0) Mean Corpuscular Hemoglobin Concent 33.7 G/DL (32.0-36.0) Red Cell Distribution Width 11.3 % (11.6-14.8) Platelet Count 341 K/UL (150-450) Mean Platelet Volume 8.0 FL (6.5-10.1) Neutrophils (%) (Auto) 89.1 % (45.0-75.0) Lymphocytes (%) (Auto) 7.4 % (20.0-45.0) Monocytes (%) (Auto) 3.3 % (1.0-10.0) Eosinophils (%) (Auto) 0.0 % (0.0-3.0) Basophils (%) (Auto) 0.2 % (0.0-2.0) Prothrombin Time 11.1 SEC (9.30-11.50) Prothromb Time International Ratio 1.0 (0.9-1.1) Activated Partial Thromboplast Time 23 SEC (23-33) D-Dimer 1.08 mg/L FEU (0.00-0.49) Sodium Level 146 MMOL/L (136-145) Potassium Level 3.5 MMOL/L (3.5-5.1) Chloride Level 108 MMOL/L (98-107) Carbon Dioxide Level 27 MMOL/L (21-32) Anion Gap 11 mmol/L (5-15) Blood Urea Nitrogen 77 mg/dL (7-18) Creatinine 1.6 MG/DL (0.55-1.30) Estimat Glomerular Filtration Rate 31.8 mL/min (>60) Glucose Level 168 MG/DL (74-106) Lactic Acid Level 3.70 mmol/L (0.4-2.0) 2.30 mmol/L (0.66-2.22) Calcium Level 8.5 MG/DL (8.5-10.1) Magnesium Level 3.9 MG/DL (1.8-2.4) Ferritin 222 NG/ML (8-388) Total Bilirubin 1.0 MG/DL (0.2-1.0) Aspartate Amino Transf (AST/SGOT) 95 U/L (15-37) Alanine Aminotransferase (ALT/SGPT) 55 U/L (12-78) Alkaline Phosphatase 68 U/L (46-116) Lactate Dehydrogenase 1095 U/L (81-234) Total Creatine Kinase 542 U/L (26-308) Troponin I 0.003 ng/mL (0.000-0.056) C-Reactive Protein, Quantitative 4.1 mg/dL (0.00-0.90) Pro-B-Type Natriuretic Peptide 658 pg/mL (0-125) Total Protein 7.7 G/DL (6.4-8.2) Albumin 3.0 G/DL (3.4-5.0) Globulin 4.7 g/dL Albumin/Globulin Ratio 0.6 (1.0-2.7) Lipase 226 U/L (73-393) Urine Color Pale yellow Urine Appearance Clear Urine pH 6 (4.5-8.0) Urine Specific [place] 1.010 (1.005-1.035) Urine Protein Negative (NEGATIVE) Urine Glucose (UA) Negative (NEGATIVE) Urine Ketones Negative (NEGATIVE) Urine Blood Negative (NEGATIVE) Urine Nitrite Negative (NEGATIVE) Urine Bilirubin Negative (NEGATIVE) Urine Urobilinogen Normal MG/DL (0.0-1.0) Urine Leukocyte Esterase 1+ (NEGATIVE) Urine RBC 0-2 /HPF (0 - 2) Urine WBC 2-4 /HPF (0 - 2) Urine Squamous Epithelial Cells Few /LPF (NONE/OCC) Urine Bacteria Few /HPF (NONE) Arterial Blood pH 7.507 (7.350-7.450) Arterial Blood Partial Pressure CO2 32.2 mmHg (35.0-45.0) Arterial Blood Partial Pressure O2 63.5 mmHg (75.0-100.0) Arterial Blood HCO3 24.9 mmol/L (22.0-26.0) Arterial Blood Oxygen Saturation 91.3 % (95-100) Arterial Blood Base Excess 2.4 (-2-2) Amrit Test Positive Test 06/18/20 03:30 06/18/20 06:05 06/18/20 13:20 06/18/20 17:41 White Blood Count 11.6 K/UL (4.8-10.8) Red Blood Count 4.06 M/UL (4.20-5.40) Hemoglobin 12.1 G/DL (12.0-16.0) Hematocrit 36.1 % (37.0-47.0) Mean Corpuscular Volume 89 FL (80-99) Mean Corpuscular Hemoglobin 29.9 PG (27.0-31.0) Mean Corpuscular Hemoglobin Concent 33.6 G/DL (32.0-36.0) Red Cell Distribution Width 11.2 % (11.6-14.8) Platelet Count 278 K/UL (150-450) Mean Platelet Volume 8.5 FL (6.5-10.1) Neutrophils (%) (Auto) % (45.0-75.0) Lymphocytes (%) (Auto) % (20.0-45.0) Monocytes (%) (Auto) % (1.0-10.0) Eosinophils (%) (Auto) % (0.0-3.0) Basophils (%) (Auto) % (0.0-2.0) Differential Total Cells Counted 100 Neutrophils % (Manual) 91 % (45-75) Lymphocytes % (Manual) 7 % (20-45) Monocytes % (Manual) 2 % (1-10) Eosinophils % (Manual) 0 % (0-3) Basophils % (Manual) 0 % (0-2) Band Neutrophils 0 % (0-8) Platelet Estimate Adequate Platelet Morphology Normal Red Blood Cell Morphology Normal Sodium Level 148 MMOL/L (136-145) Potassium Level 3.3 MMOL/L (3.5-5.1) Chloride Level 112 MMOL/L (98-107) Carbon Dioxide Level 27 MMOL/L (21-32) Anion Gap 9 mmol/L (5-15) Blood Urea Nitrogen 56 mg/dL (7-18) Creatinine 1.3 MG/DL (0.55-1.30) Estimat Glomerular Filtration Rate 40.5 mL/min (>60) Glucose Level 214 MG/DL (74-106) Calcium Level 8.3 MG/DL (8.5-10.1) Total Bilirubin 0.6 MG/DL (0.2-1.0) Aspartate Amino Transf (AST/SGOT) 90 U/L (15-37) Alanine Aminotransferase (ALT/SGPT) 48 U/L (12-78) Alkaline Phosphatase 63 U/L (46-116) Troponin I 0.013 ng/mL (0.000-0.056) Total Protein 7.3 G/DL (6.4-8.2) Albumin 2.6 G/DL (3.4-5.0) Globulin 4.7 g/dL Albumin/Globulin Ratio 0.6 (1.0-2.7) Lactic Acid Level 1.20 mmol/L (0.4-2.0) Urine Random Sodium 59 mmol/L (20-110) POC Whole Blood Glucose 167 MG/DL (74-106) Test 06/19/20 06:22 White Blood Count 11.2 K/UL (4.8-10.8) Red Blood Count 4.13 M/UL (4.20-5.40) Hemoglobin 12.3 G/DL (12.0-16.0) Hematocrit 37.4 % (37.0-47.0) Mean Corpuscular Volume 91 FL (80-99) Mean Corpuscular Hemoglobin 29.7 PG (27.0-31.0) Mean Corpuscular Hemoglobin Concent 32.8 G/DL (32.0-36.0) Red Cell Distribution Width 11.5 % (11.6-14.8) Platelet Count 294 K/UL (150-450) Mean Platelet Volume 8.1 FL (6.5-10.1) Neutrophils (%) (Auto) % (45.0-75.0) Lymphocytes (%) (Auto) % (20.0-45.0) Monocytes (%) (Auto) % (1.0-10.0) Eosinophils (%) (Auto) % (0.0-3.0) Basophils (%) (Auto) % (0.0-2.0) Lactate Dehydrogenase 915 U/L (81-234) Height (Feet): 5 Height (Inches): 2.00 Weight (Pounds): 138 Objective Physical Exam Vitals: reviewed, abnormal - Interpreted as low by me General: GCS 15 - Sometimes slightly confused, non-toxic, mild distress Head: normocephalic, moist mucus membranes Neck: supple Respiratory: no retraction, no accessory muscle use, respiratory distress - Minimal with tachypnea, crackles Cardiovascular: regular rate, rhythm, no edema Gastrointestinal: normal inspection, non tender, soft Genitourinary: no CVA tenderness Musculoskeletal: back normal Neurologic: alert, oriented x3, grossly normal Psychiatric: mood/affect normal - sometimes confused Skin: no rash, warm/dry Jj Swann MD Jun 19, 2020 07:27
[2020-06-19 07:28] LABS: CREATINE KINASE 228 U/L (26-308); GAMMA GLUTAMYL TRANSPEPTIDASE 86 U/L (5-85); PHOSPHORUS 3.5 MG/DL (2.5-4.9)
[2020-06-19 07:30] LABS: ALBUMIN 2.5 G/DL (3.4-5.0); ALBUMIN/GLOBULIN RATIO 0.5 (1.0-2.7); BILIRUBIN,DIRECT 0.3 MG/DL (0.0-0.3); BILIRUBIN,TOTAL 0.6 MG/DL (0.2-1.0); CALCIUM 8.6 MG/DL (8.5-10.1); POTASSIUM 3.9 MMOL/L (3.5-5.1)
[2020-06-19 08:00] VITALS: BP 130/99
[2020-06-19] MEDS: Enoxaparin 60mg Inj SUBQ SCH ×2 (08:59→20:13)
[2020-06-19] MEDS: dexAMETHasone 10mg/ml Inj IV SCH (08:59)
[2020-06-19] MEDS: Docusate 100mg cap ORAL SCH ×3 (08:59→17:54)
[2020-06-19] MEDS: Pantoprazole Inj IVP SCH ×2 (08:59→20:12)
--- NOTE | 2020-06-19 10:13 | NUR ---
CASE MANAGEMENT:REVIEW 06/19/20 SI: COVID PNA. HYPOXIA 98.1 89 20 130/99 99% ON BIPAP 70% FIO2 WBC+11.2 NA+152 BUN+44 IS: IV REMDESIVIR Q24 (06/26) IV DECADRON QD IVF@75/HR IV PROTONIX Q12 LOVENOX SQ Q12 : STEP DOWN UNIT DCP: FROM HOME
--- NOTE | 2020-06-19 10:58 | Infectious Diseases Prog Note ---
Assessment/Plan Assessment/Plan A; Sepsis COVID19 pneumonia Hypoxemia Acute kidney injury Hyperglycemia, DM type 2 P; Continue Remdesivir & Dexamethasone Subjective ROS Limited/Unobtainable: Yes Respiratory: Reports: shortness of breath, dry cough Allergies: Coded Allergies: No Known Allergies (Unverified , 06/17/20) Objective Last 24 Hour Vital Signs Date Time Temp Pulse Resp B/P (MAP) Pulse Ox O2 Delivery O2 Flow Rate FiO2 06/19/20 08:00 70.0 06/19/20 08:00 Bi-pap 70.0 06/19/20 08:00 98.1 89 20 130/99 (109) 99 06/19/20 07:51 59 06/19/20 04:00 97.7 70 20 129/61 (83) 97 06/19/20 04:00 Bi-pap 70.0 06/19/20 04:00 70.0 06/19/20 04:00 70 06/19/20 03:10 63 27 96 70 06/19/20 00:00 65 06/19/20 00:00 98.1 82 25 128/72 (90) 96 06/19/20 00:00 Bi-pap 70.0 06/19/20 00:00 Bi-pap 70.0 06/19/20 00:00 98.1 82 22 128/72 (90) 96 06/18/20 23:14 76 27 97 70 06/18/20 20:00 Bi-pap 70.0 06/18/20 20:00 97.5 75 20 121/69 (86) 95 06/18/20 20:00 68 06/18/20 20:00 70.0 06/18/20 19:20 68 28 97 70 06/18/20 16:00 Bi-pap 70.0 06/18/20 16:00 98.1 71 28 119/72 (88) 93 06/18/20 16:00 74 06/18/20 16:00 70.0 06/18/20 14:40 72 35 93 60 06/18/20 12:00 60.0 06/18/20 11:46 70.0 06/18/20 11:45 97.6 69 33 108/62 (77) 95 06/18/20 11:43 Bi-pap 70.0 06/18/20 11:34 63 06/18/20 11:00 72 28 94 60 Height (Feet): 5 Height (Inches): 2.00 Weight (Pounds): 138 HEENT: mucous membranes moist Respiratory/Chest: other - on BIPA, FIO2=70% Abdomen: soft, non tender Extremities: no edema Neurologic/Psychiatric: alert, responsive Microbiology Date/Time Source Procedure Growth Status 06/17/20 18:15 Blood Blood Culture - Preliminary NO GROWTH AFTER 24 HOURS Resulted 06/17/20 18:10 Blood Blood Culture - Preliminary NO GROWTH AFTER 24 HOURS Resulted Laboratory Tests Test 06/18/20 13:20 06/18/20 17:41 06/19/20 06:22 Urine Random Sodium 59 mmol/L (20-110) POC Whole Blood Glucose 167 MG/DL (74-106) H White Blood Count 11.2 K/UL (4.8-10.8) H Red Blood Count 4.13 M/UL (4.20-5.40) L Hemoglobin 12.3 G/DL (12.0-16.0) Hematocrit 37.4 % (37.0-47.0) Mean Corpuscular Volume 91 FL (80-99) Mean Corpuscular Hemoglobin 29.7 PG (27.0-31.0) Mean Corpuscular Hemoglobin Concent 32.8 G/DL (32.0-36.0) Red Cell Distribution Width 11.5 % (11.6-14.8) L Platelet Count 294 K/UL (150-450) Mean Platelet Volume 8.1 FL (6.5-10.1) Neutrophils (%) (Auto) % (45.0-75.0) Lymphocytes (%) (Auto) % (20.0-45.0) Monocytes (%) (Auto) % (1.0-10.0) Eosinophils (%) (Auto) % (0.0-3.0) Basophils (%) (Auto) % (0.0-2.0) Differential Total Cells Counted 100 Neutrophils % (Manual) 94 % (45-75) H Lymphocytes % (Manual) 4 % (20-45) L Monocytes % (Manual) 2 % (1-10) Eosinophils % (Manual) 0 % (0-3) Basophils % (Manual) 0 % (0-2) Band Neutrophils 0 % (0-8) Platelet Estimate Adequate Platelet Morphology Normal Polychromasia 1+ Hypochromasia 1+ Sodium Level 152 MMOL/L (136-145) H Potassium Level 3.9 MMOL/L (3.5-5.1) Chloride Level 117 MMOL/L (98-107) H Carbon Dioxide Level 28 MMOL/L (21-32) Anion Gap 7 mmol/L (5-15) Blood Urea Nitrogen 44 mg/dL (7-18) H Creatinine 1.0 MG/DL (0.55-1.30) Estimat Glomerular Filtration Rate 54.8 mL/min (>60) Glucose Level 141 MG/DL (74-106) H Hemoglobin A1c 7.1 % (4.3-6.0) H Lactic Acid Level 1.40 mmol/L (0.4-2.0) Uric Acid 8.2 MG/DL (2.6-7.2) H Calcium Level 8.6 MG/DL (8.5-10.1) Phosphorus Level 3.5 MG/DL (2.5-4.9) Magnesium Level 4.2 MG/DL (1.8-2.4) H Iron Level 46 ug/dL (50-175) L Total Iron Binding Capacity 212 ug/dL (250-450) L Percent Iron Saturation 22 % (15-50) Unsaturated Iron Binding 166 ug/dL (112-346) Total Bilirubin 0.6 MG/DL (0.2-1.0) Direct Bilirubin 0.3 MG/DL (0.0-0.3) Gamma Glutamyl Transpeptidase 86 U/L (5-85) H Aspartate Amino Transf (AST/SGOT) 55 U/L (15-37) H Alanine Aminotransferase (ALT/SGPT) 50 U/L (12-78) Alkaline Phosphatase 66 U/L (46-116) Lactate Dehydrogenase 915 U/L (81-234) H Total Creatine Kinase 228 U/L (26-308) C-Reactive Protein, Quantitative 2.2 mg/dL (0.00-0.90) H Pro-B-Type Natriuretic Peptide 199 pg/mL (0-125) H Total Protein 7.3 G/DL (6.4-8.2) Albumin 2.5 G/DL (3.4-5.0) L Globulin 4.8 g/dL Albumin/Globulin Ratio 0.5 (1.0-2.7) L Triglycerides Level 203 MG/DL (30-150) H Cholesterol Level 145 MG/DL (< 200) LDL Cholesterol 85 mg/dL (<100) HDL Cholesterol 27 MG/DL (40-60) L Cholesterol/HDL Ratio 5.4 (3.3-4.4) H Lipase 164 U/L (73-393) Vitamin B12 Level > 2000 PG/ML (193-986) H Vitamin D 25-Hydroxy Pending 25-Hydroxy Vitamin D2 Pending 25-Hydroxy Vitamin D3 Pending Folate 13.0 NG/ML (8.6-58.9) Thyroid Stimulating Hormone (TSH) 0.149 uiU/mL (0.358-3.740) Current Medications Medications (Trade) Dose Ordered Sig/Maya Route PRN Reason Start Time Stop Time Status Last Admin Dose Admin Acetaminophen (Tylenol) 500 mg Q4H PRN ORAL Mild Pain (Pain Scale 1-3) 06/18/20 00:15 07/18/20 00:14 Acetaminophen (Tylenol) 500 mg Q4H PRN ORAL Temp >100.5 06/18/20 00:15 07/18/20 00:14 Dexamethasone Sodium Phosphate (Decadron 10mg/ ml Inj) 6 mg DAILY IV 06/18/20 09:45 06/27/20 09:01 06/19/20 08:59 Dextrose (Dextrose 50%) 25 ml Q30M PRN IV Hypoglycemia 06/18/20 14:15 09/16/20 14:14 Dextrose (Dextrose 50%) 50 ml Q30M PRN IV Hypoglycemia 06/18/20 14:15 09/16/20 14:14 Docusate Sodium (Colace) 100 mg THREE TIMES A DAY ORAL 06/18/20 13:00 07/18/20 12:59 06/19/20 08:59 Enoxaparin Sodium (Lovenox) 60 mg Q12HR SUBQ 06/18/20 18:00 09/16/20 17:59 06/19/20 08:59 Insulin Aspart (NovoLOG) while NPO Q6HR SUBQ 06/18/20 18:00 09/16/20 17:59 06/18/20 17:53 Pantoprazole (Protonix) 40 mg EVERY 12 HOURS IVP 06/18/20 21:00 07/18/20 20:59 06/19/20 08:59 Remdesivir 100 mg/ Sodium Chloride 250 ml @ 250 mls/hr Q24H IV 06/19/20 12:00 06/22/20 12:59 Sodium 1,000 ml @ 75 mls/hr [id number] IV 06/18/20 15:00 07/18/20 14:59 06/19/20 03:52 Raji Turpin MD Jun 19, 2020 10:57
[2020-06-19 12:00] VITALS: BP 128/70
[2020-06-19] MEDS: Maintenance Dose:Remdesivir 100mg/NS 230ml x 4 Doses IV SCH ×2 (12:00)
--- NOTE | 2020-06-19 12:51 | NUR ---
NURSE NOTES: Received report from Princess [place]. Pt is AOx 4. Pt is verbally responsive. Pt is on BIPAP 15/8 , with Fio2- 70%, o2 sat -93-95%, not in respiratory distress. Pt on NPO. With Right wrist g20 intact and patent. 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 Call light within reach. NO pain noted. Bed in lowest position, call light within reach. Continue to plan of care.
--- NOTE | 2020-06-19 13:35 | Nephrology Progress Note ---
Assessment/Plan Problem List: (1) LEONARDO (acute kidney injury) (2) Dehydration (3) DMII (diabetes mellitus, type 2) (4) Pneumonia due to COVID-19 virus (5) Hypoxia Assessment 70-year-old female presents with COVID-19 pneumonia and hypoxia On admission has BUN of 77 and creatinine of 1.6. Renal failure most likely prerenal and dehydration with possible underlying chronic kidney disease Patient has elevated inflammatory markers Hypoalbuminemia Electrolyte abnormalities Hyperglycemia Plan June 19: IV changed to D5W. Monitor blood sugar. Monitor electrolytes. Medication list reviewed. Patient is being treated for COVID-19 pneumonia. Patient is full code. Previously Pulmonary support IV antibiotics Slow hydration Avoid nephrotoxic Monitor renal parameters Per orders Subjective ROS Limited/Unobtainable: No Constitutional: Reports: malaise Objective Objective Last 24 Hour Vital Signs Date Time Temp Pulse Resp B/P (MAP) Pulse Ox O2 Delivery O2 Flow Rate FiO2 06/19/20 12:00 58 06/19/20 12:00 96.4 71 24 128/70 (89) 93 06/19/20 12:00 Bi-pap 70.0 06/19/20 12:00 70.0 06/19/20 11:15 70 30 94 70 06/19/20 08:00 70.0 06/19/20 08:00 Bi-pap 70.0 06/19/20 08:00 98.1 89 20 130/99 (109) 99 06/19/20 07:51 59 06/19/20 07:15 67 27 96 70 06/19/20 04:00 97.7 70 20 129/61 (83) 97 06/19/20 04:00 Bi-pap 70.0 06/19/20 04:00 70.0 06/19/20 04:00 70 06/19/20 03:10 63 27 96 70 06/19/20 00:00 65 06/19/20 00:00 98.1 82 25 128/72 (90) 96 06/19/20 00:00 Bi-pap 70.0 06/19/20 00:00 Bi-pap 70.0 06/19/20 00:00 98.1 82 22 128/72 (90) 96 06/18/20 23:14 76 27 97 70 06/18/20 20:00 Bi-pap 70.0 06/18/20 20:00 97.5 75 20 121/69 (86) 95 06/18/20 20:00 68 06/18/20 20:00 70.0 06/18/20 19:20 68 28 97 70 06/18/20 16:00 Bi-pap 70.0 06/18/20 16:00 98.1 71 28 119/72 (88) 93 06/18/20 16:00 74 06/18/20 16:00 70.0 06/18/20 14:40 72 35 93 60 Intake and Output 06/18/20 06/19/20 19:00 07:00 Intake Total 75 ml 825 ml Balance 75 ml 825 ml Intake IV Total 75 ml 825 ml # Voids 2 3 Current Medications Medications (Trade) Dose Ordered Sig/Maya Route PRN Reason Start Time Stop Time Status Last Admin Dose Admin Acetaminophen (Tylenol) 500 mg Q4H PRN ORAL Mild Pain (Pain Scale 1-3) 06/18/20 00:15 07/18/20 00:14 Acetaminophen (Tylenol) 500 mg Q4H PRN ORAL Temp >100.5 06/18/20 00:15 07/18/20 00:14 Dexamethasone Sodium Phosphate (Decadron 10mg/ ml Inj) 6 mg DAILY IV 06/18/20 09:45 06/27/20 09:01 06/19/20 08:59 Dextrose 1,000 ml @ 50 mls/hr Q20H IV 06/19/20 13:30 07/19/20 13:29 UNV Dextrose (Dextrose 50%) 25 ml Q30M PRN IV Hypoglycemia 06/18/20 14:15 09/16/20 14:14 Dextrose (Dextrose 50%) 50 ml Q30M PRN IV Hypoglycemia 06/18/20 14:15 09/16/20 14:14 Docusate Sodium (Colace) 100 mg THREE TIMES A DAY ORAL 06/18/20 13:00 07/18/20 12:59 06/19/20 12:58 Enoxaparin Sodium (Lovenox) 60 mg Q12HR SUBQ 06/18/20 18:00 09/16/20 17:59 06/19/20 08:59 Insulin Aspart (NovoLOG) while NPO Q6HR SUBQ 06/18/20 18:00 4/28/21 17:59 06/18/20 17:53 Pantoprazole (Protonix) 40 mg EVERY 12 HOURS IVP 06/18/20 21:00 07/18/20 20:59 06/19/20 08:59 Remdesivir 100 mg/ Sodium Chloride 250 ml @ 250 mls/hr Q24H IV 06/19/20 12:00 06/22/20 12:59 06/19/20 12:00 Laboratory Tests 06/18/20 17:41: POC Whole Blood Glucose 167H 06/19/20 06:22: White Blood Count 11.2H, Red Blood Count 4.13L, Hemoglobin 12.3, Hematocrit 37.4, Mean Corpuscular Volume 91, Mean Corpuscular Hemoglobin 29.7, Mean Corpuscular Hemoglobin Concent 32.8, Red Cell Distribution Width 11.5L, Platelet Count 294, Mean Platelet Volume 8.1, Neutrophils (%) (Auto) , Lymphocytes (%) (Auto) , Monocytes (%) (Auto) , Eosinophils (%) (Auto) , Basophils (%) (Auto) , Differential Total Cells Counted 100, Neutrophils % (Manual) 94H, Lymphocytes % (Manual) 4L, Monocytes % (Manual) 2, Eosinophils % (Manual) 0, Basophils % (Manual) 0, Band Neutrophils 0, Platelet Estimate Adequate, Platelet Morphology Normal, Polychromasia 1+, Hypochromasia 1+, Sodium Level 152H, Potassium Level 3.9, Chloride Level 117H, Carbon Dioxide Level 28, Anion Gap 7, Blood Urea Nitrogen 44H, Creatinine 1.0, Estimat Glomerular Filtration Rate 54.8, Glucose Level 141H, Hemoglobin A1c 7.1H, Lactic Acid Level 1.40, Uric Acid 8.2H, Calcium Level 8.6, Phosphorus Level 3.5, Magnesium Level 4.2H, Iron Level 46L, Total Iron Binding Capacity 212L, Percent Iron Saturation 22, Unsaturated Iron Binding 166, Total Bilirubin 0.6, Direct Bilirubin 0.3, Gamma Glutamyl Transpeptidase 86H, Aspartate Amino Transf (AST/SGOT) 55H, Alanine Aminotransferase (ALT/SGPT) 50, Alkaline Phosphatase 66, Lactate Dehydrogenase 915H, Total Creatine Kinase 228, C-Reactive Protein, Quantitative 2.2H, Pro-B-Type Natriuretic Peptide 199H, Total Protein 7.3, Albumin 2.5L, Globulin 4.8, Albumin/Globulin Ratio 0.5L, Triglycerides Level 203H, Cholesterol Level 145, LDL Cholesterol 85, HDL Cholesterol 27L, Cholesterol/HDL Ratio 5.4H, Lipase 164, Vitamin B12 Level > 2000H, Vitamin D 25-Hydroxy [Pending], 25-Hydroxy Vitamin D2 [Pending], 25- Hydroxy Vitamin D3 [Pending], Folate 13.0, Thyroid Stimulating Hormone (TSH) 0.149L 06/19/20 13:02: POC Whole Blood Glucose [Pending] Height (Feet): 5 Height (Inches): 2.00 Weight (Pounds): 138 General Appearance: mild distress EENT: other - On BiPAP Cardiovascular: normal rate Respiratory/Chest: decreased breath sounds Abdomen: distended Raza De Jesus MD Jun 19, 2020 13:35
--- NOTE | 2020-06-19 14:18 | Pulmonology Progress Note ---
Subjective ROS Limited/Unobtainable: No Constitutional: Reports: no symptoms HEENT: Repors: no symptoms Respiratory: Reports: no symptoms Cardiovascular: Reports: no symptoms Gastrointestinal/Abdominal: Reports: no symptoms Allergies: Coded Allergies: No Known Allergies (Unverified , 06/17/20) Objective Last 24 Hour Vital Signs Date Time Temp Pulse Resp B/P (MAP) Pulse Ox O2 Delivery O2 Flow Rate FiO2 06/19/20 12:00 58 06/19/20 12:00 96.4 71 24 128/70 (89) 93 06/19/20 12:00 Bi-pap 70.0 06/19/20 12:00 70.0 06/19/20 11:15 70 30 94 70 06/19/20 08:00 70.0 06/19/20 08:00 Bi-pap 70.0 06/19/20 08:00 98.1 89 20 130/99 (109) 99 06/19/20 07:51 59 06/19/20 07:15 67 27 96 70 06/19/20 04:00 97.7 70 20 129/61 (83) 97 06/19/20 04:00 Bi-pap 70.0 06/19/20 04:00 70.0 06/19/20 04:00 70 06/19/20 03:10 63 27 96 70 06/19/20 00:00 65 06/19/20 00:00 98.1 82 25 128/72 (90) 96 06/19/20 00:00 Bi-pap 70.0 06/19/20 00:00 Bi-pap 70.0 06/19/20 00:00 98.1 82 22 128/72 (90) 96 06/18/20 23:14 76 27 97 70 06/18/20 20:00 Bi-pap 70.0 06/18/20 20:00 97.5 75 20 121/69 (86) 95 06/18/20 20:00 68 06/18/20 20:00 70.0 06/18/20 19:20 68 28 97 70 06/18/20 16:00 Bi-pap 70.0 06/18/20 16:00 98.1 71 28 119/72 (88) 93 06/18/20 16:00 74 06/18/20 16:00 70.0 06/18/20 14:40 72 35 93 60 Intake and Output 06/18/20 06/19/20 19:00 07:00 Intake Total 75 ml 825 ml Balance 75 ml 825 ml Intake IV Total 75 ml 825 ml # Voids 2 3 General Appearance: no acute distress HEENT: atraumatic Respiratory: crackles/rales Cardiovascular: normal rate Abdomen: soft, non tender Microbiology Date/Time Source Procedure Growth Status 06/17/20 18:15 Blood Blood Culture - Preliminary NO GROWTH AFTER 24 HOURS Resulted 06/17/20 18:10 Blood Blood Culture - Preliminary NO GROWTH AFTER 24 HOURS Resulted Laboratory Tests 06/18/20 17:41: POC Whole Blood Glucose 167H 06/19/20 06:22: White Blood Count 11.2H, Red Blood Count 4.13L, Hemoglobin 12.3, Hematocrit 37.4, Mean Corpuscular Volume 91, Mean Corpuscular Hemoglobin 29.7, Mean Corpuscular Hemoglobin Concent 32.8, Red Cell Distribution Width 11.5L, Platelet Count 294, Mean Platelet Volume 8.1, Neutrophils (%) (Auto) , Lymphocytes (%) (Auto) , Monocytes (%) (Auto) , Eosinophils (%) (Auto) , Basophils (%) (Auto) , Differential Total Cells Counted 100, Neutrophils % (Manual) 94H, Lymphocytes % (Manual) 4L, Monocytes % (Manual) 2, Eosinophils % (Manual) 0, Basophils % (Manual) 0, Band Neutrophils 0, Platelet Estimate Adequate, Platelet Morphology Normal, Polychromasia 1+, Hypochromasia 1+, Sodium Level 152H, Potassium Level 3.9, Chloride Level 117H, Carbon Dioxide Level 28, Anion Gap 7, Blood Urea Nitrogen 44H, Creatinine 1.0, Estimat Glomerular Filtration Rate 54.8, Glucose Level 141H, Hemoglobin A1c 7.1H, Lactic Acid Level 1.40, Uric Acid 8.2H, Calcium Level 8.6, Phosphorus Level 3.5, Magnesium Level 4.2H, Iron Level 46L, Total Iron Binding Capacity 212L, Percent Iron Saturation 22, Unsaturated Iron Binding 166, Total Bilirubin 0.6, Direct Bilirubin 0.3, Gamma Glutamyl Transpeptidase 86H, Aspartate Amino Transf (AST/SGOT) 55H, Alanine Aminotransferase (ALT/SGPT) 50, Alkaline Phosphatase 66, Lactate Dehydrogenase 915H, Total Creatine Kinase 228, C-Reactive Protein, Quantitative 2.2H, Pro-B-Type Natriuretic Peptide 199H, Total Protein 7.3, Albumin 2.5L, Globulin 4.8, Albumin/Globulin Ratio 0.5L, Triglycerides Level 203H, Cholesterol Level 145, LDL Cholesterol 85, HDL Cholesterol 27L, Cholesterol/HDL Ratio 5.4H, Lipase 164, Vitamin B12 Level > 2000H, Vitamin D 25-Hydroxy [Pending], 25-Hydroxy Vitamin D2 [Pending], 25- Hydroxy Vitamin D3 [Pending], Folate 13.0, Thyroid Stimulating Hormone (TSH) 0.149L 06/19/20 13:02: POC Whole Blood Glucose [Pending] Current Medications Medications (Trade) Dose Ordered Sig/Maya Route PRN Reason Start Time Stop Time Status Last Admin Dose Admin Acetaminophen (Tylenol) 500 mg Q4H PRN ORAL Mild Pain (Pain Scale 1-3) 06/18/20 00:15 07/18/20 00:14 Acetaminophen (Tylenol) 500 mg Q4H PRN ORAL Temp >100.5 06/18/20 00:15 07/18/20 00:14 Dexamethasone Sodium Phosphate (Decadron 10mg/ ml Inj) 6 mg DAILY IV 06/18/20 09:45 06/27/20 09:01 06/19/20 08:59 Dextrose 1,000 ml @ 50 mls/hr Q20H IV 06/19/20 13:30 07/19/20 13:29 Dextrose (Dextrose 50%) 25 ml Q30M PRN IV Hypoglycemia 06/18/20 14:15 09/16/20 14:14 Dextrose (Dextrose 50%) 50 ml Q30M PRN IV Hypoglycemia 06/18/20 14:15 09/16/20 14:14 Docusate Sodium (Colace) 100 mg THREE TIMES A DAY ORAL 06/18/20 13:00 07/18/20 12:59 06/19/20 12:58 Enoxaparin Sodium (Lovenox) 60 mg Q12HR SUBQ 06/18/20 18:00 09/16/20 17:59 06/19/20 08:59 Insulin Aspart (NovoLOG) while NPO Q6HR SUBQ 06/18/20 18:00 09/16/20 17:59 06/18/20 17:53 Pantoprazole (Protonix) 40 mg EVERY 12 HOURS IVP 06/18/20 21:00 07/18/20 20:59 06/19/20 08:59 Remdesivir 100 mg/ Sodium Chloride 250 ml @ 250 mls/hr Q24H IV 06/19/20 12:00 06/22/20 12:59 06/19/20 12:00 Assessment/Plan Assessment/Plan 1. COVID-19 pneumonia -on BiPAP, FiO2 increased from 60 to 70% today ; will continue to wean as tolerated -Encourage proning -On Decadron, and remdesivir - can observe off abx since WBC improving, oxygen requirement improving, and afebrile; per ID 2. Leukocytosis -Likely secondary to #1 -WBC improving 3. Elevated D-dimer -Venous duplex ultrasound negative for DVT -On Lovenox for DVT prophylaxis 4. Renal insufficiency -On IV fluids - nephro following 5. Anemia of chronic disease -Hematology oncology following 6. Sepsis -Status post antibiotics, fluid resuscitation The care for this patient was discussed with my supervising physician. Time spent for this case was approximately 31 minutes. Dave Smith Jun 19, 2020 14:18
--- NOTE | 2020-06-19 15:35 | NUR ---
INSURANCE CLINICALS/REVIEW FAXED TO [facility] [phone]
[2020-06-19 16:00] VITALS: BP 126/70
--- NOTE | 2020-06-19 19:36 | NUR ---
NURSE NOTES: Report received from NORMAN Salinas. Observed pt lying in the bed. A/O x4 noted. SR at this time. On Bipap 15, 70% at this time, failed weaning fio2 am shift. NPO at this time. IV on R W 20G intact. R AC 20G, intact. Bed in the lowest position. Side rails up x3. Call light within reach. Will continue to monitor.
[2020-06-19 20:00] VITALS: BP 142/76
--- NOTE | 2020-06-19 21:29 | General Progress Note ---
Subjective ROS Limited/Unobtainable: Yes Allergies: Coded Allergies: No Known Allergies (Unverified , 06/17/20) Objective Last 24 Hour Vital Signs Date Time Temp Pulse Resp B/P (MAP) Pulse Ox O2 Delivery O2 Flow Rate FiO2 06/19/20 19:08 72 32 99 70 06/19/20 16:00 71 06/19/20 16:00 70.0 06/19/20 16:00 Bi-pap 70.0 06/19/20 16:00 98.2 70 24 126/70 (88) 96 06/19/20 14:50 78 32 93 70 06/19/20 12:00 58 06/19/20 12:00 96.4 71 24 128/70 (89) 93 06/19/20 12:00 Bi-pap 70.0 06/19/20 12:00 70.0 06/19/20 11:15 70 30 94 70 06/19/20 08:00 70.0 06/19/20 08:00 Bi-pap 70.0 06/19/20 08:00 98.1 89 20 130/99 (109) 99 06/19/20 07:51 59 06/19/20 07:15 67 27 96 70 06/19/20 04:00 97.7 70 20 129/61 (83) 97 06/19/20 04:00 Bi-pap 70.0 06/19/20 04:00 70.0 06/19/20 04:00 70 06/19/20 03:10 63 27 96 70 06/19/20 00:00 65 06/19/20 00:00 98.1 82 25 128/72 (90) 96 06/19/20 00:00 Bi-pap 70.0 06/19/20 00:00 Bi-pap 70.0 06/19/20 00:00 98.1 82 22 128/72 (90) 96 06/18/20 23:14 76 27 97 70 Intake and Output0 06/18/20 06/19/20 19:00 07:00 Intake Total 75 ml 825 ml Balance 75 ml 825 ml Intake IV Total 75 ml 825 ml # Voids 2 3 Laboratory Tests 06/19/20 06:22: White Blood Count 11.2H, Red Blood Count 4.13L, Hemoglobin 12.3, Hematocrit 37.4, Mean Corpuscular Volume 91, Mean Corpuscular Hemoglobin 29.7, Mean Corpuscular Hemoglobin Concent 32.8, Red Cell Distribution Width 11.5L, Platelet Count 294, Mean Platelet Volume 8.1, Neutrophils (%) (Auto) , Lymphocytes (%) (Auto) , Monocytes (%) (Auto) , Eosinophils (%) (Auto) , Basophils (%) (Auto) , Differential Total Cells Counted 100, Neutrophils % (Manual) 94H, Lymphocytes % (Manual) 4L, Monocytes % (Manual) 2, Eosinophils % (Manual) 0, Basophils % (Manual) 0, Band Neutrophils 0, Platelet Estimate Adequate, Platelet Morphology Normal, Polychromasia 1+, Hypochromasia 1+, Sodium Level 152H, Potassium Level 3.9, Chloride Level 117H, Carbon Dioxide Level 28, Anion Gap 7, Blood Urea Nitrogen 44H, Creatinine 1.0, Estimat Glomerular Filtration Rate 54.8, Glucose Level 141H, Hemoglobin A1c 7.1H, Lactic Acid Level 1.40, Uric Acid 8.2H, Calcium Level 8.6, Phosphorus Level 3.5, Magnesium Level 4.2H, Iron Level 46L, Total Iron Binding Capacity 212L, Percent Iron Saturation 22, Unsaturated Iron Binding 166, Total Bilirubin 0.6, Direct Bilirubin 0.3, Gamma Glutamyl Transpeptidase 8 6H, Aspartate Amino Transf (AST/SGOT) 55H, Alanine Aminotransferase (ALT/SGPT) 50, Alkaline Phosphatase 66, Lactate Dehydrogenase 915H, Total Creatine Kinase 228, C-Reactive Protein, Quantitative 2.2H, Pro-B-Type Natriuretic Peptide 199H, Total Protein 7.3, Albumin 2.5L, Globulin 4.8, Albumin/Globulin Ratio 0.5L, Triglycerides Level 203H, Cholesterol Level 145, LDL Cholesterol 85, HDL Cholesterol 27L, Cholesterol/HDL Ratio 5.4H, Lipase 164, Vitamin B12 Level > 2000H, Vitamin D 25-Hydroxy [Pending], 25-Hydroxy Vitamin D2 [Pending], 25- Hydroxy Vitamin D3 [Pending], Folate 13.0, Thyroid Stimulating Hormone (TSH) 0.149L 06/19/20 13:02: POC Whole Blood Glucose [Pending] 06/19/20 18:32: POC Whole Blood Glucose 138H Height (Feet): 5 Height (Inches): 2.00 Weight (Pounds): 138 Assessment/Plan Problem List: (1) Elevated d-dimer ICD Codes: R79.89 - Other specified abnormal findings of blood chemistry SNOMED: 039923708 (2) Renal insufficiency ICD Codes: N28.9 - Disorder of kidney and ureter, unspecified SNOMED: 121809254, 513817939 (3) PNA (pneumonia) ICD Codes: J18.9 - Pneumonia, unspecified organism SNOMED: 520571322 (4) Dehydration ICD Codes: E86.0 - Dehydration SNOMED: 18945049 (5) LEONARDO (acute kidney injury) ICD Codes: N17.9 - Acute kidney failure, unspecified SNOMED: 9913811, 84073592 (6) Hypoxia ICD Codes: R09.02 - Hypoxemia; J12.82 - Pneumonia due to coronavirus disease 2019 SNOMED: 078754850 (7) Pneumonia due to COVID-19 virus ICD Codes: U07.1 - COVID-19; J12.82 - Pneumonia due to coronavirus disease 2019 SNOMED: 133218909253266317 (8) DMII (diabetes mellitus, type 2) ICD Codes: E11.9 - Type 2 diabetes mellitus without complications SNOMED: 02409098 Status: progressing Assessment/Plan: covid + resp insuff leonardo prn supportive care dm reviewed chart and labs Vidya Clayton MD Jun 19, 2020 21:28
--- NOTE | 2020-06-19 22:59 | NUR ---
NURSE NOTES: Noted pt lying in the bed, sleeping. SR noted. On bipap, saturating 95%. Assisted pt to bedside commode x1. Will continue to monitor.
[2020-06-20] VITALS: BP 147/86
[2020-06-20] MEDS: NovoLOG Insulin Flexpen SUBQ SCH ×4 (00:16→18:04)
--- NOTE | 2020-06-20 01:57 | NUR ---
NURSE NOTES: Pt sleeping at this time. On bipap, saturating at 95%. Bed bath given. Reposition done. Will continue to monitor.
[2020-06-20 04:00] VITALS: BP 133/72
[2020-06-20 04:48] LABS: HEMATOCRIT 36.1 % (37.0-47.0); HEMOGLOBIN 12.4 G/DL (12.0-16.0); MEAN CORPUSCULAR VOLUME 90 FL (80-99); PLATELET COUNT 275 K/UL (150-450); RED BLOOD COUNT 3.99 M/UL (4.20-5.40); WHITE BLOOD COUNT 10.4 K/UL (4.8-10.8)
[2020-06-20 05:05] LABS: ALANINE AMINOTRANSFERASE 48 U/L (12-78); ALBUMIN 2.5 G/DL (3.4-5.0); ALBUMIN/GLOBULIN RATIO 0.5 (1.0-2.7); ALKALINE PHOSPHATASE 68 U/L (46-116); ANION GAP 8 mmol/L (5-15); ASPARTATE AMINO TRANSFERASE 55 U/L (15-37); BILIRUBIN,DIRECT 0.1 MG/DL (0.0-0.3); BILIRUBIN,TOTAL 0.8 MG/DL (0.2-1.0); BLOOD UREA NITROGEN 42 mg/dL (7-18); CALCIUM 8.1 MG/DL (8.5-10.1); CARBON DIOXIDE 27 MMOL/L (21-32); CHLORIDE 118 MMOL/L (98-107); CREATININE 0.9 MG/DL (0.55-1.30); POTASSIUM 4.3 MMOL/L (3.5-5.1); SODIUM 153 MMOL/L (136-145)
[2020-06-20 05:17] LABS: PHOSPHORUS 3.2 MG/DL (2.5-4.9)
--- NOTE | 2020-06-20 07:19 | NUR ---
NURSE HAND-OFF REPORT: Important Events on Shift: Pt on bipap, tolerating FIO2 70%. Bedside commode use. Patient Status: Diet: npo Pending Orders: [] Pending Results/Labs:[] Pending MD notification:[] Latest Vital Signs: Temperature 98.6 , Pulse 70 , B/P 133 /72 , Respiratory Rate 22 , O2 SAT 98 , Non-Rebreather, O2 Flow Rate 70.0 . Vital Sign Comment: [] EKG Rhythm: Sinus Rhythm Rhythm change?: N MD Notified?: N - MD Response: Latest Carney Fall Score: 45 Fall Risk: High Risk Safety Measures: Call light Within Reach, Bed Alarm Zone 1, Side Rails Side Rails x2, Bed position Low and Locked. Fall Precautions: Yellow Socks Yellow Gown Door Sign Patient Fall Education Report given to NORMAN Moreau.
[2020-06-20 08:00] VITALS: BP 143/79
--- NOTE | 2020-06-20 08:00 | NUR ---
NURSE NOTES: Pt was assessed after receiving change of shift report from [facility]. Awake, alert, oriented x4, bilingual [place] speaking. On Bipap 15/8 FIO2 60%, O2Sat 99%, bilateral rhonchi on auscultation. NSR on early childhood associate. Temp 98.6F axillary. Peripheral IV access right wrist #20G, and right AC#20G, with IV fluid D5W is infusing 50ml/hour. Uses bedside commode for urination and BM. Skin is intact. HOB at high flores's, bed locked, three side rails, and ambrose light within easy reach. Will continue with plan of care.
--- NOTE | 2020-06-20 08:54 | Pulmonology Progress Note ---
Subjective ROS Limited/Unobtainable: Yes Constitutional: Reports: no symptoms HEENT: Repors: no symptoms Respiratory: Reports: no symptoms Cardiovascular: Reports: no symptoms Gastrointestinal/Abdominal: Reports: no symptoms Allergies: Coded Allergies: No Known Allergies (Unverified , 06/17/20) Objective Last 24 Hour Vital Signs Date Time Temp Pulse Resp B/P (MAP) Pulse Ox O2 Delivery O2 Flow Rate FiO2 06/20/20 04:00 98.6 93 22 133/72 (92) 98 06/20/20 04:00 70 06/20/20 04:00 70.0 06/20/20 04:00 Bi-pap 70.0 06/20/20 03:19 80 30 96 70 06/20/20 00:00 Bi-pap 70.0 06/20/20 00:00 96.0 93 22 147/86 (106) 98 06/20/20 00:00 82 06/19/20 22:28 85 34 97 70 06/19/20 20:00 98.2 70 22 142/76 (98) 98 06/19/20 20:00 Bi-pap 70.0 06/19/20 20:00 70.0 06/19/20 20:00 74 06/19/20 19:08 72 32 99 70 06/19/20 16:00 71 06/19/20 16:00 70.0 06/19/20 16:00 Bi-pap 70.0 06/19/20 16:00 98.2 70 24 126/70 (88) 96 06/19/20 14:50 78 32 93 70 06/19/20 12:00 58 06/19/20 12:00 96.4 71 24 128/70 (89) 93 06/19/20 12:00 Bi-pap 70.0 06/19/20 12:00 70.0 06/19/20 11:15 70 30 94 70 Intake and Output 06/19/20 06/20/20 19:00 07:00 Intake Total 50 ml 600 ml Balance 50 ml 600 ml Intake IV Total 50 ml 600 ml # Voids 2 3 General Appearance: no acute distress HEENT: atraumatic Respiratory: crackles/rales Cardiovascular: normal rate Abdomen: soft, non tender Microbiology Date/Time Source Procedure Growth Status 06/18/20 10:30 Nasopharynx Coronavirus COVID-19 PCR ([facility]) - Final Complete 06/17/20 18:15 Blood Blood Culture - Preliminary NO GROWTH AFTER 48 HOURS Resulted 06/17/20 18:10 Blood Blood Culture - Preliminary NO GROWTH AFTER 48 HOURS Resulted Laboratory Tests 06/19/20 13:02: POC Whole Blood Glucose [Pending] 06/19/20 18:32: POC Whole Blood Glucose 138H 06/20/20 00:10: POC Whole Blood Glucose [Pending] 06/20/20 03:00: White Blood Count 10.4, Red Blood Count 3.99L, Hemoglobin 12.4, Hematocrit 36.1L , Mean Corpuscular Volume 90, Mean Corpuscular Hemoglobin 31.0, Mean Corpuscular Hemoglobin Concent 34.3, Red Cell Distribution Width 12.0, Platelet Count 275, Mean Platelet Volume 7.0, Neutrophils (%) (Auto) , Lymphocytes (%) (Auto) , Monocytes (%) (Auto) , Eosinophils (%) (Auto) , Basophils (%) (Auto) , Neutrophils % (Manual) [Pending], Lymphocytes % (Manual) [Pending], Platelet Estimate [Pending], Platelet Morphology [Pending], Sodium Level 153H, Potassium Level 4.3, Chloride Level 118H, Carbon Dioxide Level 27, Anion Gap 8, Blood Urea Nitrogen 42H, Creatinine 0.9, Estimat Glomerular Filtration Rate > 60, Glucose Level 148H, Uric Acid 7.0, Calcium Level 8.1L, Phosphorus Level 3.2, Magnesium Level 3.6H, Total Bilirubin 0.8, Direct Bilirubin 0.1, Aspartate Amino Transf (AST/SGOT) 55H, Alanine Aminotransferase (ALT/SGPT) 48, Alkaline Phosphatase 68, C-Reactive Protein, Quantitative 2.1H, Pro-B-Type Natriuretic Peptide 77, Total Protein 7.2, Albumin 2.5L, Globulin 4.7, Albumin/Globulin Ratio 0.5L 06/20/20 05:37: POC Whole Blood Glucose 147H Current Medications Medications (Trade) Dose Ordered Sig/Maya Route PRN Reason Start Time Stop Time Status Last Admin Dose Admin Acetaminophen (Tylenol) 500 mg Q4H PRN ORAL Mild Pain (Pain Scale 1-3) 06/18/20 00:15 07/18/20 00:14 Acetaminophen (Tylenol) 500 mg Q4H PRN ORAL Temp >100.5 1/28/21 00:15 07/18/20 00:14 Dexamethasone Sodium Phosphate (Decadron 10mg/ ml Inj) 6 mg DAILY IV 06/18/20 09:45 06/27/20 09:01 06/19/20 08:59 Dextrose 1,000 ml @ 50 mls/hr Q20H IV 06/19/20 13:30 07/19/20 13:29 06/19/20 13:30 Dextrose (Dextrose 50%) 25 ml Q30M PRN IV Hypoglycemia 06/18/20 14:15 09/16/20 14:14 Dextrose (Dextrose 50%) 50 ml Q30M PRN IV Hypoglycemia 06/18/20 14:15 09/16/20 14:14 Docusate Sodium (Colace) 100 mg THREE TIMES A DAY ORAL 06/18/20 13:00 07/18/20 12:59 06/19/20 12:58 Enoxaparin Sodium (Lovenox) 60 mg Q12HR SUBQ 06/18/20 18:00 09/16/20 17:59 06/19/20 20:13 Insulin Aspart (NovoLOG) while NPO Q6HR SUBQ 06/18/20 18:00 09/16/20 17:59 06/20/20 06:04 Pantoprazole (Protonix) 40 mg EVERY 12 HOURS IVP 06/18/20 21:00 07/18/20 20:59 06/19/20 20:12 Remdesivir 100 mg/ Sodium Chloride 250 ml @ 250 mls/hr Q24H IV 06/19/20 12:00 06/22/20 12:59 06/19/20 12:00 Assessment/Plan Assessment/Plan 1. COVID-19 pneumonia -on BiPAP, FiO2 increased from 60 to 70% yesterday ; will continue to wean as tolerated -Encourage proning -On Decadron, and remdesivir - can observe off abx since WBC improving, oxygen requirement improving, and afebrile; per ID 2. Leukocytosis -Likely secondary to #1 -WBC improving 3. Elevated D-dimer -Venous duplex ultrasound negative for DVT -Was on full dose Lovenox, switched to 40 subcu QD for DVT prophylaxis 4. Renal insufficiency -On IV fluids - nephro following 5. Anemia of chronic disease -Hematology oncology following 6. Sepsis -Status post antibiotics, fluid resuscitation The care for this patient was discussed with my supervising physician. Time spent for this case was approximately 31 minutes. Dave Smith Jun 20, 2020 08:54
[2020-06-20] MEDS: dexAMETHasone 10mg/ml Inj IV SCH (09:37)
[2020-06-20] MEDS: Enoxaparin 60mg Inj SUBQ SCH (09:37)
[2020-06-20] MEDS: Docusate 100mg cap ORAL SCH ×3 (09:38→18:00)
[2020-06-20] MEDS: Pantoprazole Inj IVP SCH ×2 (09:38→21:04)
--- NOTE | 2020-06-20 10:00 | NUR ---
NURSE NOTES: Dave ACEVEDO is rounding and was updated on pt's current status. Informed regarding AM lab values, including Na 153 and on IV fluid D5W infusing at 50ml/hour. No new orders at this time.
--- NOTE | 2020-06-20 10:03 | Infectious Diseases Prog Note ---
Assessment/Plan Assessment/Plan A; Sepsis COVID19 pneumonia Hypoxemia Acute kidney injury Hyperglycemia, DM type 2 P; Continue Remdesivir & Dexamethasone Subjective ROS Limited/Unobtainable: Yes Constitutional: Denies: fever Allergies: Coded Allergies: No Known Allergies (Unverified , 06/17/20) Objective Last 24 Hour Vital Signs Date Time Temp Pulse Resp B/P (MAP) Pulse Ox O2 Delivery O2 Flow Rate FiO2 06/20/20 08:00 79 06/20/20 04:00 98.6 93 22 133/72 (92) 98 06/20/20 04:00 70 06/20/20 04:00 70.0 06/20/20 04:00 Bi-pap 70.0 06/20/20 03:19 80 30 96 70 06/20/20 00:00 Bi-pap 70.0 06/20/20 00:00 96.0 93 22 147/86 (106) 98 06/20/20 00:00 82 06/19/20 22:28 85 34 97 70 06/19/20 20:00 98.2 70 22 142/76 (98) 98 06/19/20 20:00 Bi-pap 70.0 06/19/20 20:00 70.0 06/19/20 20:00 74 06/19/20 19:08 72 32 99 70 06/19/20 16:00 71 06/19/20 16:00 70.0 06/19/20 16:00 Bi-pap 70.0 06/19/20 16:00 98.2 70 24 126/70 (88) 96 06/19/20 14:50 78 32 93 70 06/19/20 12:00 58 06/19/20 12:00 96.4 71 24 128/70 (89) 93 06/19/20 12:00 Bi-pap 70.0 06/19/20 12:00 70.0 06/19/20 11:15 70 30 94 70 Height (Feet): 5 Height (Inches): 2.00 Weight (Pounds): 138 HEENT: mucous membranes moist Respiratory/Chest: lungs clear, other - on BIPAP, FIO2=70% Cardiovascular: normal rate Abdomen: soft, non tender Extremities: no edema Neurologic/Psychiatric: alert, responsive Microbiology Date/Time Source Procedure Growth Status 06/18/20 10:30 Nasopharynx Coronavirus COVID-19 PCR ([facility]) - Final Complete 06/17/20 18:15 Blood Blood Culture - Preliminary NO GROWTH AFTER 48 HOURS Resulted 06/17/20 18:10 Blood Blood Culture - Preliminary NO GROWTH AFTER 48 HOURS Resulted Laboratory Tests Test 06/19/20 13:02 06/19/20 18:32 06/20/20 00:10 06/20/20 03:00 POC Whole Blood Glucose Pending 138 MG/DL (74-106) H Pending White Blood Count 10.4 K/UL (4.8-10.8) Red Blood Count 3.99 M/UL (4.20-5.40) L Hemoglobin 12.4 G/DL (12.0-16.0) Hematocrit 36.1 % (37.0-47.0) L Mean Corpuscular Volume 90 FL (80-99) Mean Corpuscular Hemoglobin 31.0 PG (27.0-31.0) Mean Corpuscular Hemoglobin Concent 34.3 G/DL (32.0-36.0) Red Cell Distribution Width 12.0 % (11.6-14.8) Platelet Count 275 K/UL (150-450) Mean Platelet Volume 7.0 FL (6.5-10.1) Neutrophils (%) (Auto) % (45.0-75.0) Lymphocytes (%) (Auto) % (20.0-45.0) Monocytes (%) (Auto) % (1.0-10.0) Eosinophils (%) (Auto) % (0.0-3.0) Basophils (%) (Auto) % (0.0-2.0) Differential Total Cells Counted 100 Neutrophils % (Manual) 88 % (45-75) H Lymphocytes % (Manual) 9 % (20-45) L Monocytes % (Manual) 3 % (1-10) Eosinophils % (Manual) 0 % (0-3) Basophils % (Manual) 0 % (0-2) Band Neutrophils 0 % (0-8) Platelet Estimate Adequate Platelet Morphology Normal Red Blood Cell Morphology Normal Sodium Level 153 MMOL/L (136-145) H Potassium Level 4.3 MMOL/L (3.5-5.1) Chloride Level 118 MMOL/L (98-107) H Carbon Dioxide Level 27 MMOL/L (21-32) Anion Gap 8 mmol/L (5-15) Blood Urea Nitrogen 42 mg/dL (7-18) H Creatinine 0.9 MG/DL (0.55-1.30) Estimat Glomerular Filtration Rate > 60 mL/min (>60) Glucose Level 148 MG/DL (74-106) H Uric Acid 7.0 MG/DL (2.6-7.2) Calcium Level 8.1 MG/DL (8.5-10.1) L Phosphorus Level 3.2 MG/DL (2.5-4.9) Magnesium Level 3.6 MG/DL (1.8-2.4) H Total Bilirubin 0.8 MG/DL (0.2-1.0) Direct Bilirubin 0.1 MG/DL (0.0-0.3) Aspartate Amino Transf (AST/SGOT) 55 U/L (15-37) H Alanine Aminotransferase (ALT/SGPT) 48 U/L (12-78) Alkaline Phosphatase 68 U/L (46-116) C-Reactive Protein, Quantitative 2.1 mg/dL (0.00-0.90) H Pro-B-Type Natriuretic Peptide 77 pg/mL (0-125) Total Protein 7.2 G/DL (6.4-8.2) Albumin 2.5 G/DL (3.4-5.0) L Globulin 4.7 g/dL Albumin/Globulin Ratio 0.5 (1.0-2.7) L Test 06/20/20 05:37 POC Whole Blood Glucose 147 MG/DL (74-106) H Current Medications Medications (Trade) Dose Ordered Sig/Maya Route PRN Reason Start Time Stop Time Status Last Admin Dose Admin Acetaminophen (Tylenol) 500 mg Q4H PRN ORAL Mild Pain (Pain Scale 1-3) 06/18/20 00:15 07/18/20 00:14 Acetaminophen (Tylenol) 500 mg Q4H PRN ORAL Temp >100.5 06/18/20 00:15 07/18/20 00:14 Dexamethasone Sodium Phosphate (Decadron 10mg/ ml Inj) 6 mg DAILY IV 06/18/20 09:45 06/27/20 09:01 06/20/20 09:37 Dextrose 1,000 ml @ 50 mls/hr Q20H IV 06/19/20 13:30 07/19/20 13:29 06/20/20 09:38 Dextrose (Dextrose 50%) 25 ml Q30M PRN IV Hypoglycemia 06/18/20 14:15 09/16/20 14:14 Dextrose (Dextrose 50%) 50 ml Q30M PRN IV Hypoglycemia 06/18/20 14:15 09/16/20 14:14 Docusate Sodium (Colace) 100 mg THREE TIMES A DAY ORAL 06/18/20 13:00 07/18/20 12:59 06/20/20 09:38 Enoxaparin Sodium (Lovenox) 60 mg Q12HR SUBQ 06/18/20 18:00 09/16/20 17:59 06/20/20 09:37 Insulin Aspart (NovoLOG) while NPO Q6HR SUBQ 06/18/20 18:00 09/16/20 17:59 06/20/20 06:04 Pantoprazole (Protonix) 40 mg EVERY 12 HOURS IVP 06/18/20 21:00 07/18/20 20:59 06/20/20 09:38 Remdesivir 100 mg/ Sodium Chloride 250 ml @ 250 mls/hr Q24H IV 06/19/20 12:00 06/22/20 12:59 06/19/20 12:00 Raji Turpin MD Jun 20, 2020 10:03
--- NOTE | 2020-06-20 11:45 | Hematology/Onc Progress Note ---
Assessment/Plan Assessment/Plan Assessment and recs # Leukocytosis with Pneumonia due to COVID-19 virus -> wbc trend 15-->11 --> ABX as per id --> imaging does show pna --> anticoag recommended --> on remdesivir # Anemia of chronic disease --> hgb 12 # Elevated ddimer due to covid --> duplex legs -> LOVENOX sq # Covid19++ with Hypoxia -> steriods, abx per id # Renal insufficiency -> per renal care # Sepsis due to above --> abx, fluid resuscitation # Dvt ppx lovenox sq Appreciate consultation and dw RN Subjective Allergies: Coded Allergies: No Known Allergies (Unverified , 06/17/20) Subjective Subjective Subjective Cardiovascular: Denies: no symptoms, chest pain, edema, irregular heart rate, lightheadedness, palpitations, syncope, other Gastrointestinal/Abdominal: Denies: no symptoms, abdomen distended, abdominal pain, black stools, tarry stools, blood in stool, constipated, diarrhea, difficulty swallowing, nausea, poor appetite, poor fluid intake, rectal bleeding, vomiting, other Genitourinary: Denies: no symptoms, burning, discharge, frequency, flank pain, hematuria, incontinence, pain, urgency, other Neurologic/Psychiatric: Denies: no symptoms, anxiety, depressed, emotional problems, headache, numbness, paresthesia, pre-existing deficit, seizure, tingling, tremors, weakness, other Endocrine: Denies: no symptoms, excessive sweating, flushing, intolerance to cold, intolerance to heat, increased hunger, increased thirst, increased urine, unexplained weight gain, unexplained weight loss, other Hematologic/Lymphatic: Denies: no symptoms, anemia, easy bleeding, easy bruising, adenopathy, other Allergies: Coded Allergies: No Known Allergies (Unverified , 06/17/20) Subjective 06/19 sleeping, comfortable, on bipap, meds have been reviewed 06/20: on supplemental oxygen no bleeding reported Objective Objective Current Medications Medications (Trade) Dose Ordered Sig/Maya Route PRN Reason Start Time Stop Time Status Last Admin Dose Admin Acetaminophen (Tylenol) 500 mg Q4H PRN ORAL Mild Pain (Pain Scale 1-3) 06/18/20 00:15 07/18/20 00:14 Acetaminophen (Tylenol) 500 mg Q4H PRN ORAL Temp >100.5 06/18/20 00:15 07/18/20 00:14 Dexamethasone Sodium Phosphate (Decadron 10mg/ ml Inj) 6 mg DAILY IV 06/18/20 09:45 06/27/20 09:01 06/20/20 09:37 Dextrose 1,000 ml @ 50 mls/hr Q20H IV 06/19/20 13:30 07/19/20 13:29 06/20/20 09:38 Dextrose (Dextrose 50%) 25 ml Q30M PRN IV Hypoglycemia 06/18/20 14:15 09/16/20 14:14 Dextrose (Dextrose 50%) 50 ml Q30M PRN IV Hypoglycemia 06/18/20 14:15 09/16/20 14:14 Docusate Sodium (Colace) 100 mg THREE TIMES A DAY ORAL 06/18/20 13:00 07/18/20 12:59 06/20/20 09:38 Enoxaparin Sodium (Lovenox) 60 mg Q12HR SUBQ 06/18/20 18:00 09/16/20 17:59 06/20/20 09:37 Insulin Aspart (NovoLOG) while NPO Q6HR SUBQ 06/18/20 18:00 09/16/20 17:59 06/20/20 06:04 Pantoprazole (Protonix) 40 mg EVERY 12 HOURS IVP 06/18/20 21:00 07/18/20 20:59 06/20/20 09:38 Remdesivir 100 mg/ Sodium Chloride 250 ml @ 250 mls/hr Q24H IV 06/19/20 12:00 06/22/20 12:59 06/19/20 12:00 Last 24 Hour Vital Signs Date Time Temp Pulse Resp B/P (MAP) Pulse Ox O2 Delivery O2 Flow Rate FiO2 06/20/20 08:00 70.0 06/20/20 08:00 98.6 84 22 143/79 (100) 99 06/20/20 08:00 79 06/20/20 08:00 Bi-pap 70.0 06/20/20 04:00 98.6 93 22 133/72 (92) 98 06/20/20 04:00 70 06/20/20 04:00 70.0 06/20/20 04:00 Bi-pap 70.0 06/20/20 03:19 80 30 96 70 06/20/20 00:00 Bi-pap 70.0 06/20/20 00:00 96.0 93 22 147/86 (106) 98 06/20/20 00:00 82 06/19/20 22:28 85 34 97 70 06/19/20 20:00 98.2 70 22 142/76 (98) 98 06/19/20 20:00 Bi-pap 70.0 06/19/20 20:00 70.0 06/19/20 20:00 74 06/19/20 19:08 72 32 99 70 06/19/20 16:00 71 06/19/20 16:00 70.0 06/19/20 16:00 Bi-pap 70.0 06/19/20 16:00 98.2 70 24 126/70 (88) 96 06/19/20 14:50 78 32 93 70 06/19/20 12:00 58 06/19/20 12:00 96.4 71 24 128/70 (89) 93 06/19/20 12:00 Bi-pap 70.0 06/19/20 12:00 70.0 06/19/20 11:15 70 30 94 70 06/19/20 08:00 70.0 06/19/20 08:00 Bi-pap 70.0 06/19/20 08:00 98.1 89 20 130/99 (109) 99 06/19/20 07:51 59 06/19/20 07:15 67 27 96 70 06/19/20 04:00 97.7 70 20 129/61 (83) 97 06/19/20 04:00 Bi-pap 70.0 06/19/20 04:00 70.0 06/19/20 04:00 70 06/19/20 03:10 63 27 96 70 06/19/20 00:00 65 06/19/20 00:00 98.1 82 25 128/72 (90) 96 06/19/20 00:00 Bi-pap 70.0 06/19/20 00:00 Bi-pap 70.0 06/19/20 00:00 98.1 82 22 128/72 (90) 96 06/18/20 23:14 76 27 97 70 06/18/20 20:00 Bi-pap 70.0 06/18/20 20:00 97.5 75 20 121/69 (86) 95 06/18/20 20:00 68 06/18/20 20:00 70.0 06/18/20 19:20 68 28 97 70 06/18/20 16:00 Bi-pap 70.0 06/18/20 16:00 98.1 71 28 119/72 (88) 93 06/18/20 16:00 74 06/18/20 16:00 70.0 06/18/20 14:40 72 35 93 60 06/18/20 12:00 60.0 06/18/20 11:46 70.0 06/18/20 11:45 97.6 69 33 108/62 (77) 95 Intake and Output 06/19/20 06/20/20 19:00 07:00 Intake Total 50 ml 600 ml Balance 50 ml 600 ml Intake IV Total 50 ml 600 ml # Voids 2 3 Labs Test 06/17/20 18:10 06/17/20 19:49 06/17/20 20:18 06/17/20 23:50 White Blood Count 15.5 K/UL (4.8-10.8) Red Blood Count 4.43 M/UL (4.20-5.40) Hemoglobin 13.2 G/DL (12.0-16.0) Hematocrit 39.0 % (37.0-47.0) Mean Corpuscular Volume 88 FL (80-99) Mean Corpuscular Hemoglobin 29.7 PG (27.0-31.0) Mean Corpuscular Hemoglobin Concent 33.7 G/DL (32.0-36.0) Red Cell Distribution Width 11.3 % (11.6-14.8) Platelet Count 341 K/UL (150-450) Mean Platelet Volume 8.0 FL (6.5-10.1) Neutrophils (%) (Auto) 89.1 % (45.0-75.0) Lymphocytes (%) (Auto) 7.4 % (20.0-45.0) Monocytes (%) (Auto) 3.3 % (1.0-10.0) Eosinophils (%) (Auto) 0.0 % (0.0-3.0) Basophils (%) (Auto) 0.2 % (0.0-2.0) Prothrombin Time 11.1 SEC (9.30-11.50) Prothromb Time International Ratio 1.0 (0.9-1.1) Activated Partial Thromboplast Time 23 SEC (23-33) D-Dimer 1.08 mg/L FEU (0.00-0.49) Sodium Level 146 MMOL/L (136-145) Potassium Level 3.5 MMOL/L (3.5-5.1) Chloride Level 108 MMOL/L (98-107) Carbon Dioxide Level 27 MMOL/L (21-32) Anion Gap 11 mmol/L (5-15) Blood Urea Nitrogen 77 mg/dL (7-18) Creatinine 1.6 MG/DL (0.55-1.30) Estimat Glomerular Filtration Rate 31.8 mL/min (>60) Glucose Level 168 MG/DL (74-106) Lactic Acid Level 3.70 mmol/L (0.4-2.0) 2.30 mmol/L (0.66-2.22) Calcium Level 8.5 MG/DL (8.5-10.1) Magnesium Level 3.9 MG/DL (1.8-2.4) Ferritin 222 NG/ML (8-388) Total Bilirubin 1.0 MG/DL (0.2-1.0) Aspartate Amino Transf (AST/SGOT) 95 U/L (15-37) Alanine Aminotransferase (ALT/SGPT) 55 U/L (12-78) Alkaline Phosphatase 68 U/L (46-116) Lactate Dehydrogenase 1095 U/L (81-234) Total Creatine Kinase 542 U/L (26-308) Troponin I 0.003 ng/mL (0.000-0.056) C-Reactive Protein, Quantitative 4.1 mg/dL (0.00-0.90) Pro-B-Type Natriuretic Peptide 658 pg/mL (0-125) Total Protein 7.7 G/DL (6.4-8.2) Albumin 3.0 G/DL (3.4-5.0) Globulin 4.7 g/dL Albumin/Globulin Ratio 0.6 (1.0-2.7) Lipase 226 U/L (73-393) Urine Color Pale yellow Urine Appearance Clear Urine pH 6 (4.5-8.0) Urine Specific [place] 1.010 (1.005-1.035) Urine Protein Negative (NEGATIVE) Urine Glucose (UA) Negative (NEGATIVE) Urine Ketones Negative (NEGATIVE) Urine Blood Negative (NEGATIVE) Urine Nitrite Negative (NEGATIVE) Urine Bilirubin Negative (NEGATIVE) Urine Urobilinogen Normal MG/DL (0.0-1.0) Urine Leukocyte Esterase 1+ (NEGATIVE) Urine RBC 0-2 /HPF (0 - 2) Urine WBC 2-4 /HPF (0 - 2) Urine Squamous Epithelial Cells Few /LPF (NONE/OCC) Urine Bacteria Few /HPF (NONE) Arterial Blood pH 7.507 (7.350-7.450) Arterial Blood Partial Pressure CO2 32.2 mmHg (35.0-45.0) Arterial Blood Partial Pressure O2 63.5 mmHg (75.0-100.0) Arterial Blood HCO3 24.9 mmol/L (22.0-26.0) Arterial Blood Oxygen Saturation 91.3 % (95-100) Arterial Blood Base Excess 2.4 (-2-2) Amrit Test Positive Test 06/18/20 03:30 06/18/20 06:05 06/18/20 13:20 06/18/20 17:41 White Blood Count 11.6 K/UL (4.8-10.8) Red Blood Count 4.06 M/UL (4.20-5.40) Hemoglobin 12.1 G/DL (12.0-16.0) Hematocrit 36.1 % (37.0-47.0) Mean Corpuscular Volume 89 FL (80-99) Mean Corpuscular Hemoglobin 29.9 PG (27.0-31.0) Mean Corpuscular Hemoglobin Concent 33.6 G/DL (32.0-36.0) Red Cell Distribution Width 11.2 % (11.6-14.8) Platelet Count 278 K/UL (150-450) Mean Platelet Volume 8.5 FL (6.5-10.1) Neutrophils (%) (Auto) % (45.0-75.0) Lymphocytes (%) (Auto) % (20.0-45.0) Monocytes (%) (Auto) % (1.0-10.0) Eosinophils (%) (Auto) % (0.0-3.0) Basophils (%) (Auto) % (0.0-2.0) Differential Total Cells Counted 100 Neutrophils % (Manual) 91 % (45-75) Lymphocytes % (Manual) 7 % (20-45) Monocytes % (Manual) 2 % (1-10) Eosinophils % (Manual) 0 % (0-3) Basophils % (Manual) 0 % (0-2) Band Neutrophils 0 % (0-8) Platelet Estimate Adequate Platelet Morphology Normal Red Blood Cell Morphology Normal Sodium Level 148 MMOL/L (136-145) Potassium Level 3.3 MMOL/L (3.5-5.1) Chloride Level 112 MMOL/L (98-107) Carbon Dioxide Level 27 MMOL/L (21-32) Anion Gap 9 mmol/L (5-15) Blood Urea Nitrogen 56 mg/dL (7-18) Creatinine 1.3 MG/DL (0.55-1.30) Estimat Glomerular Filtration Rate 40.5 mL/min (>60) Glucose Level 214 MG/DL (74-106) Calcium Level 8.3 MG/DL (8.5-10.1) Total Bilirubin 0.6 MG/DL (0.2-1.0) Aspartate Amino Transf (AST/SGOT) 90 U/L (15-37) Alanine Aminotransferase (ALT/SGPT) 48 U/L (12-78) Alkaline Phosphatase 63 U/L (46-116) Troponin I 0.013 ng/mL (0.000-0.056) Total Protein 7.3 G/DL (6.4-8.2) Albumin 2.6 G/DL (3.4-5.0) Globulin 4.7 g/dL Albumin/Globulin Ratio 0.6 (1.0-2.7) Lactic Acid Level 1.20 mmol/L (0.4-2.0) Urine Random Sodium 59 mmol/L (20-110) POC Whole Blood Glucose 167 MG/DL (74-106) Test 06/19/20 06:22 06/19/20 13:02 06/19/20 18:32 06/20/20 00:10 White Blood Count 11.2 K/UL (4.8-10.8) Red Blood Count 4.13 M/UL (4.20-5.40) Hemoglobin 12.3 G/DL (12.0-16.0) Hematocrit 37.4 % (37.0-47.0) Mean Corpuscular Volume 91 FL (80-99) Mean Corpuscular Hemoglobin 29.7 PG (27.0-31.0) Mean Corpuscular Hemoglobin Concent 32.8 G/DL (32.0-36.0) Red Cell Distribution Width 11.5 % (11.6-14.8) Platelet Count 294 K/UL (150-450) Mean Platelet Volume 8.1 FL (6.5-10.1) Neutrophils (%) (Auto) % (45.0-75.0) Lymphocytes (%) (Auto) % (20.0-45.0) Monocytes (%) (Auto) % (1.0-10.0) Eosinophils (%) (Auto) % (0.0-3.0) Basophils (%) (Auto) % (0.0-2.0) Differential Total Cells Counted 100 Neutrophils % (Manual) 94 % (45-75) Lymphocytes % (Manual) 4 % (20-45) Monocytes % (Manual) 2 % (1-10) Eosinophils % (Manual) 0 % (0-3) Basophils % (Manual) 0 % (0-2) Band Neutrophils 0 % (0-8) Platelet Estimate Adequate Platelet Morphology Normal Polychromasia 1+ Hypochromasia 1+ Sodium Level 152 MMOL/L (136-145) Potassium Level 3.9 MMOL/L (3.5-5.1) Chloride Level 117 MMOL/L (98-107) Carbon Dioxide Level 28 MMOL/L (21-32) Anion Gap 7 mmol/L (5-15) Blood Urea Nitrogen 44 mg/dL (7-18) Creatinine 1.0 MG/DL (0.55-1.30) Estimat Glomerular Filtration Rate 54.8 mL/min (>60) Glucose Level 141 MG/DL (74-106) Hemoglobin A1c 7.1 % (4.3-6.0) Lactic Acid Level 1.40 mmol/L (0.4-2.0) Uric Acid 8.2 MG/DL (2.6-7.2) Calcium Level 8.6 MG/DL (8.5-10.1) Phosphorus Level 3.5 MG/DL (2.5-4.9) Magnesium Level 4.2 MG/DL (1.8-2.4) Iron Level 46 ug/dL (50-175) Total Iron Binding Capacity 212 ug/dL (250-450) Percent Iron Saturation 22 % (15-50) Unsaturated Iron Binding 166 ug/dL (112-346) Total Bilirubin 0.6 MG/DL (0.2-1.0) Direct Bilirubin 0.3 MG/DL (0.0-0.3) Gamma Glutamyl Transpeptidase 86 U/L (5-85) Aspartate Amino Transf (AST/SGOT) 55 U/L (15-37) Alanine Aminotransferase (ALT/SGPT) 50 U/L (12-78) Alkaline Phosphatase 66 U/L (46-116) Lactate Dehydrogenase 915 U/L (81-234) Total Creatine Kinase 228 U/L (26-308) C-Reactive Protein, Quantitative 2.2 mg/dL (0.00-0.90) Pro-B-Type Natriuretic Peptide 199 pg/mL (0-125) Total Protein 7.3 G/DL (6.4-8.2) Albumin 2.5 G/DL (3.4-5.0) Globulin 4.8 g/dL Albumin/Globulin Ratio 0.5 (1.0-2.7) Triglycerides Level 203 MG/DL (30-150) Cholesterol Level 145 MG/DL (< 200) LDL Cholesterol 85 mg/dL (<100) HDL Cholesterol 27 MG/DL (40-60) Cholesterol/HDL Ratio 5.4 (3.3-4.4) Lipase 164 U/L (73-393) Vitamin B12 Level > 2000 PG/ML (193-986) Folate 13.0 NG/ML (8.6-58.9) Thyroid Stimulating Hormone (TSH) 0.149 uiU/mL (0.358-3.740) POC Whole Blood Glucose 138 MG/DL (74-106) Test 06/20/20 03:00 06/20/20 05:37 White Blood Count 10.4 K/UL (4.8-10.8) Red Blood Count 3.99 M/UL (4.20-5.40) Hemoglobin 12.4 G/DL (12.0-16.0) Hematocrit 36.1 % (37.0-47.0) Mean Corpuscular Volume 90 FL (80-99) Mean Corpuscular Hemoglobin 31.0 PG (27.0-31.0) Mean Corpuscular Hemoglobin Concent 34.3 G/DL (32.0-36.0) Red Cell Distribution Width 12.0 % (11.6-14.8) Platelet Count 275 K/UL (150-450) Mean Platelet Volume 7.0 FL (6.5-10.1) Neutrophils (%) (Auto) % (45.0-75.0) Lymphocytes (%) (Auto) % (20.0-45.0) Monocytes (%) (Auto) % (1.0-10.0) Eosinophils (%) (Auto) % (0.0-3.0) Basophils (%) (Auto) % (0.0-2.0) Differential Total Cells Counted 100 Neutrophils % (Manual) 88 % (45-75) Lymphocytes % (Manual) 9 % (20-45) Monocytes % (Manual) 3 % (1-10) Eosinophils % (Manual) 0 % (0-3) Basophils % (Manual) 0 % (0-2) Band Neutrophils 0 % (0-8) Platelet Estimate Adequate Platelet Morphology Normal Red Blood Cell Morphology Normal Sodium Level 153 MMOL/L (136-145) Potassium Level 4.3 MMOL/L (3.5-5.1) Chloride Level 118 MMOL/L (98-107) Carbon Dioxide Level 27 MMOL/L (21-32) Anion Gap 8 mmol/L (5-15) Blood Urea Nitrogen 42 mg/dL (7-18) Creatinine 0.9 MG/DL (0.55-1.30) Estimat Glomerular Filtration Rate > 60 mL/min (>60) Glucose Level 148 MG/DL (74-106) Uric Acid 7.0 MG/DL (2.6-7.2) Calcium Level 8.1 MG/DL (8.5-10.1) Phosphorus Level 3.2 MG/DL (2.5-4.9) Magnesium Level 3.6 MG/DL (1.8-2.4) Total Bilirubin 0.8 MG/DL (0.2-1.0) Direct Bilirubin 0.1 MG/DL (0.0-0.3) Aspartate Amino Transf (AST/SGOT) 55 U/L (15-37) Alanine Aminotransferase (ALT/SGPT) 48 U/L (12-78) Alkaline Phosphatase 68 U/L (46-116) C-Reactive Protein, Quantitative 2.1 mg/dL (0.00-0.90) Pro-B-Type Natriuretic Peptide 77 pg/mL (0-125) Total Protein 7.2 G/DL (6.4-8.2) Albumin 2.5 G/DL (3.4-5.0) Globulin 4.7 g/dL Albumin/Globulin Ratio 0.5 (1.0-2.7) POC Whole Blood Glucose 147 MG/DL (74-106) Height (Feet): 5 Height (Inches): 2.00 Weight (Pounds): 138 Objective Physical Exam Vitals: reviewed, abnormal - Interpreted as low by me General: GCS 15 - Sometimes slightly confused, non-toxic, mild distress Head: normocephalic, moist mucus membranes Neck: supple Respiratory: no retraction, no accessory muscle use, respiratory distress - Minimal with tachypnea, crackles Cardiovascular: regular rate, rhythm, no edema Gastrointestinal: normal inspection, non tender, soft Genitourinary: no CVA tenderness Musculoskeletal: back normal Neurologic: alert, oriented x3, grossly normal Psychiatric: mood/affect normal - sometimes confused Skin: no rash, warm/dry Maria Eugenia Farmer NP Jun 20, 2020 11:45
[2020-06-20 12:00] VITALS: BP 146/76
--- NOTE | 2020-06-20 12:30 | NUR ---
NURSE NOTES: Dr De Jesus is rounding and aware of AM lab results. No new orders received at this time.
[2020-06-20] MEDS: Maintenance Dose:Remdesivir 100mg/NS 230ml x 4 Doses IV SCH ×2 (12:57)
--- NOTE | 2020-06-20 13:13 | NUR ---
INSURANCE CLINICALS/REVIEW FAXED TO COUNT INCLUDES THE [facility] [phone]
--- NOTE | 2020-06-20 14:12 | Nephrology Progress Note ---
Assessment/Plan Problem List: (1) LEONARDO (acute kidney injury) (2) Dehydration (3) DMII (diabetes mellitus, type 2) (4) Pneumonia due to COVID-19 virus (5) Hypoxia Assessment 70-year-old female presents with COVID-19 pneumonia and hypoxia On admission has BUN of 77 and creatinine of 1.6. Renal failure most likely prerenal and dehydration with possible underlying chronic kidney disease Patient has elevated inflammatory markers Hypoalbuminemia Electrolyte abnormalities Hyperglycemia Plan June 20: Patient full code. On BiPAP. Labs reviewed. Serum sodium rising. Will increase D5W to 75 cc an hour. Continue to monitor electrolytes. June 19: IV changed to D5W. Monitor blood sugar. Monitor electrolytes. Medication list reviewed. Patient is being treated for COVID-19 pneumonia. Patient is full code. Previously Pulmonary support IV antibiotics Slow hydration Avoid nephrotoxic Monitor renal parameters Per orders Subjective ROS Limited/Unobtainable: Yes Objective Objective Last 24 Hour Vital Signs Date Time Temp Pulse Resp B/P (MAP) Pulse Ox O2 Delivery O2 Flow Rate FiO2 06/20/20 12:00 70.0 06/20/20 12:00 98.2 84 22 146/76 (99) 93 06/20/20 12:00 Bi-pap 70.0 06/20/20 12:00 77 06/20/20 11:14 91 30 97 70 06/20/20 08:00 70.0 06/20/20 08:00 98.6 84 22 143/79 (100) 99 06/20/20 08:00 79 06/20/20 08:00 Bi-pap 70.0 06/20/20 07:21 89 31 94 70 06/20/20 04:00 98.6 93 22 133/72 (92) 98 06/20/20 04:00 70 06/20/20 04:00 70.0 06/20/20 04:00 Bi-pap 70.0 06/20/20 03:19 80 30 96 70 06/20/20 00:00 Bi-pap 70.0 06/20/20 00:00 96.0 93 22 147/86 (106) 98 06/20/20 00:00 82 06/19/20 22:28 85 34 97 70 06/19/20 20:00 98.2 70 22 142/76 (98) 98 06/19/20 20:00 Bi-pap 70.0 06/19/20 20:00 70.0 06/19/20 20:00 74 06/19/20 19:08 72 32 99 70 06/19/20 16:00 71 06/19/20 16:00 70.0 06/19/20 16:00 Bi-pap 70.0 06/19/20 16:00 98.2 70 24 126/70 (88) 96 06/19/20 14:50 78 32 93 70 Intake and Output 06/19/20 06/20/20 19:00 07:00 Intake Total 50 ml 600 ml Balance 50 ml 600 ml Intake IV Total 50 ml 600 ml # Voids 2 3 Current Medications Medications (Trade) Dose Ordered Sig/Maya Route PRN Reason Start Time Stop Time Status Last Admin Dose Admin Acetaminophen (Tylenol) 500 mg Q4H PRN ORAL Mild Pain (Pain Scale 1-3) 06/18/20 00:15 07/18/20 00:14 Acetaminophen (Tylenol) 500 mg Q4H PRN ORAL Temp >100.5 06/18/20 00:15 07/18/20 00:14 Dexamethasone Sodium Phosphate (Decadron 10mg/ ml Inj) 6 mg DAILY IV 06/18/20 09:45 06/27/20 09:01 06/20/20 09:37 Dextrose 1,000 ml @ 50 mls/hr Q20H IV 06/19/20 13:30 07/19/20 13:29 06/20/20 09:38 Dextrose (Dextrose 50%) 25 ml Q30M PRN IV Hypoglycemia 06/18/20 14:15 09/16/20 14:14 Dextrose (Dextrose 50%) 50 ml Q30M PRN IV Hypoglycemia 06/18/20 14:15 09/16/20 14:14 Docusate Sodium (Colace) 100 mg THREE TIMES A DAY ORAL 06/18/20 13:00 07/18/20 12:59 06/20/20 12:57 Enoxaparin Sodium (Lovenox) 40 mg DAILY SUBQ 06/21/20 09:00 09/19/20 08:59 Insulin Aspart (NovoLOG) while NPO Q6HR SUBQ 06/18/20 18:00 09/16/20 17:59 06/20/20 12:58 Pantoprazole (Protonix) 40 mg EVERY 12 HOURS IVP 06/18/20 21:00 07/18/20 20:59 06/20/20 09:38 Remdesivir 100 mg/ Sodium Chloride 250 ml @ 250 mls/hr Q24H IV 06/19/20 12:00 06/22/20 12:59 06/20/20 12:57 Laboratory Tests 06/19/20 18:32: POC Whole Blood Glucose 138H 06/20/20 00:10: POC Whole Blood Glucose [Pending] 06/20/20 03:00: White Blood Count 10.4, Red Blood Count 3.99L, Hemoglobin 12.4, Hematocrit 36.1L , Mean Corpuscular Volume 90, Mean Corpuscular Hemoglobin 31.0, Mean Corpuscular Hemoglobin Concent 34.3, Red Cell Distribution Width 12.0, Platelet Count 275, Mean Platelet Volume 7.0, Neutrophils (%) (Auto) , Lymphocytes (%) (Auto) , Monocytes (%) (Auto) , Eosinophils (%) (Auto) , Basophils (%) (Auto) , Differential Total Cells Counted 100, Neutrophils % (Manual) 88H, Lymphocytes % (Manual) 9L, Monocytes % (Manual) 3, Eosinophils % (Manual) 0, Basophils % (Manual) 0, Band Neutrophils 0, Platelet Estimate Adequate, Platelet Morphology Normal, Red Blood Cell Morphology Normal, Sodium Level 153H, Potassium Level 4.3, Chloride Level 118H, Carbon Dioxide Level 27, Anion Gap 8, Blood Urea Nitrogen 42H, Creatinine 0.9, Estimat Glomerular Filtration Rate > 60, Glucose Level 148H, Uric Acid 7.0, Calcium Level 8.1L, Phosphorus Level 3.2, Magnesium Level 3.6H, Total Bilirubin 0.8, Direct Bilirubin 0.1, Aspartate Amino Transf (AST/SGOT) 55H, Alanine Aminotransferase (ALT/SGPT) 48, Alkaline Phosphatase 68, C-Reactive Protein, Quantitative 2.1H, Pro-B-Type Natriuretic Peptide 77, Total Protein 7.2, Albumin 2.5L, Globulin 4.7, Albumin/Globulin Ratio 0.5L 06/20/20 05:37: POC Whole Blood Glucose 147H 06/20/20 12:00: POC Whole Blood Glucose [Pending] Height (Feet): 5 Height (Inches): 2.00 Weight (Pounds): 138 EENT: other - On BiPAP Cardiovascular: tachycardia Respiratory/Chest: decreased breath sounds Abdomen: distended Raza De Jesus MD Jun 20, 2020 14:12
[2020-06-20 16:00] VITALS: BP 144/79
--- NOTE | 2020-06-20 18:00 | NUR ---
NURSE NOTES: Pt used bedside commode for BM x1, formed/soft/brown. VS remain stable.
--- NOTE | 2020-06-20 19:30 | NUR ---
NURSE NOTES: Received report from Lizzeth AUSTIN.patient in bed Awake, alert, oriented x4, bilingual Slovenian speaking. On Bipap 15/8 FIO2 60%, O2Sat 95%, . 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 Temp 97.9F axillary. Peripheral IV access right wrist #20G, and right AC#20G, with IV fluid D5W is infusing 50ml/hour. Uses bedside commode for urination and BM. Covid +, airborne precaution maintained and observed. HOB elevated.bed locked and in low position. and ambrose light within easy reach. Will continue with plan of care.
--- NOTE | 2020-06-20 19:32 | NUR ---
NURSE HAND-OFF REPORT: Important Events on Shift: IVF, bipap, antibiotics Patient Status: stable Diet: npo Pending Orders: n/a Pending Results/Labs:n/s Pending MD notification:n/a Latest Vital Signs: Temperature 99.7 , Pulse 78 , B/P 144 /79 , Respiratory Rate 32 , O2 SAT 96 , Non-Rebreather, O2 Flow Rate 70.0 . Vital Sign Comment: n/a EKG Rhythm: Sinus Rhythm Rhythm change?: N MD Notified?: N - MD Response: Latest Carney Fall Score: 45 Fall Risk: High Risk Safety Measures: Call light Within Reach, Bed Alarm Zone 1, Side Rails Side Rails x2, Bed position Low and Locked. Fall Precautions: Yellow Socks Yellow Gown Door Sign Patient Fall Education Report given to Michelle AUSTIN .
[2020-06-20 20:00] VITALS: BP 132/82
--- NOTE | 2020-06-20 20:27 | General Progress Note ---
Subjective ROS Limited/Unobtainable: Yes Allergies: Coded Allergies: No Known Allergies (Unverified , 06/17/20) Objective Last 24 Hour Vital Signs Date Time Temp Pulse Resp B/P (MAP) Pulse Ox O2 Delivery O2 Flow Rate FiO2 06/20/20 19:20 78 32 96 60 06/20/20 16:49 79 32 96 60 06/20/20 16:00 99.7 81 20 144/79 (100) 94 06/20/20 16:00 70.0 06/20/20 16:00 Bi-pap 70.0 06/20/20 16:00 73 06/20/20 15:00 73 29 97 60 06/20/20 13:01 91 30 97 70 06/20/20 12:00 70.0 06/20/20 12:00 98.2 84 22 146/76 (99) 93 06/20/20 12:00 Bi-pap 70.0 06/20/20 12:00 77 06/20/20 11:14 91 30 97 70 06/20/20 09:00 79 30 98 70 06/20/20 08:00 70.0 06/20/20 08:00 98.6 84 22 143/79 (100) 99 06/20/20 08:00 79 06/20/20 08:00 Bi-pap 70.0 06/20/20 07:21 89 31 94 70 06/20/20 04:00 98.6 93 22 133/72 (92) 98 06/20/20 04:00 70 06/20/20 04:00 70.0 06/20/20 04:00 Bi-pap 70.0 06/20/20 03:19 80 30 96 70 06/20/20 00:00 Bi-pap 70.0 06/20/20 00:00 96.0 93 22 147/86 (106) 98 06/20/20 00:00 82 06/19/20 22:28 85 34 97 70 Intake and Output 06/19/20 06/20/20 19:00 07:00 Intake Total 50 ml 600 ml Balance 50 ml 600 ml Intake IV Total 50 ml 600 ml # Voids 2 3 Laboratory Tests 06/20/20 00:10: POC Whole Blood Glucose [Pending] 06/20/20 03:00: White Blood Count 10.4, Red Blood Count 3.99L, Hemoglobin 12.4, Hematocrit 36.1L , Mean Corpuscular Volume 90, Mean Corpuscular Hemoglobin 31.0, Mean Corpuscular Hemoglobin Concent 34.3, Red Cell Distribution Width 12.0, Platelet Count 275, Mean Platelet Volume 7.0, Neutrophils (%) (Auto) , Lymphocytes (%) (Auto) , Monocytes (%) (Auto) , Eosinophils (%) (Auto) , Basophils (%) (Auto) , Differential Total Cells Counted 100, Neutrophils % (Manual) 88H, Lymphocytes % (Manual) 9L, Monocytes % (Manual) 3, Eosinophils % (Manual) 0, Basophils % (Manual) 0, Band Neutrophils 0, Platelet Estimate Adequate, Platelet Morphology Normal, Red Blood Cell Morphology Normal, Sodium Level 153H, Potassium Level 4.3, Chloride Level 118H, Carbon Dioxide Level 27, Anion Gap 8, Blood Urea Nitrogen 42H, Creatinine 0.9, Estimat Glomerular Filtration Rate > 60, Glucose Level 148H, Uric Acid 7.0, Calcium Level 8.1L, Phosphorus Level 3.2, Magnesium Level 3.6H, Total Bilirubin 0.8, Direct Bilirubin 0.1, Aspartate Amino Transf (AST/SGOT) 55H, Alanine Aminotransferase (ALT/SGPT) 48, Alkaline Phosphatase 68, C-Reactive Protein, Quantitative 2.1H, Pro-B-Type Natriuretic Peptide 77, Total Protein 7.2, Albumin 2.5L, Globulin 4.7, Albumin/Globulin Ratio 0.5L 06/20/20 05:37: POC Whole Blood Glucose 147H 06/20/20 12:00: POC Whole Blood Glucose [Pending] Height (Feet): 5 Height (Inches): 2.00 Weight (Pounds): 138 Assessment/Plan Problem List: (1) Elevated d-dimer ICD Codes: R79.89 - Other specified abnormal findings of blood chemistry SNOMED: 912186130 (2) Renal insufficiency ICD Codes: N28.9 - Disorder of kidney and ureter, unspecified SNOMED: 566259960, 755260847 (3) PNA (pneumonia) ICD Codes: J18.9 - Pneumonia, unspecified organism SNOMED: 668275489 (4) Dehydration ICD Codes: E86.0 - Dehydration SNOMED: 77867642 (5) LEONARDO (acute kidney injury) ICD Codes: N17.9 - Acute kidney failure, unspecified SNOMED: 8200807, 09687521 (6) Hypoxia ICD Codes: R09.02 - Hypoxemia; J12.82 - Pneumonia due to coronavirus disease 2019 SNOMED: 428949430 (7) Pneumonia due to COVID-19 virus ICD Codes: U07.1 - COVID-19; J12.82 - Pneumonia due to coronavirus disease 2019 SNOMED: 211301578664053113 (8) DMII (diabetes mellitus, type 2) ICD Codes: E11.9 - Type 2 diabetes mellitus without complications SNOMED: 92194254 Status: progressing Assessment/Plan: covid + resp insuff azotemia dehydration sugar is improving afebrile reviewed chart and labs Vidya Montes MD Jun 20, 2020 20:27
[2020-06-21] VITALS: BP 145/82
--- NOTE | 2020-06-21 | NUR ---
NURSE NOTES: Patient in bed on BIPAP 15/8 60% patient saturation 89-90% titrated fi02 to 90% satting 94-95%. HOB elevated. call light within easy reach.
[2020-06-21 04:00] VITALS: BP 145/75
[2020-06-21] MEDS: NovoLOG Insulin Flexpen SUBQ SCH ×4 (06:00→18:33)
[2020-06-21 06:35] LABS: HEMATOCRIT 40.9 % (37.0-47.0); HEMOGLOBIN 13.4 G/DL (12.0-16.0); MEAN CORPUSCULAR VOLUME 91 FL (80-99); PLATELET COUNT 319 K/UL (150-450); RED CELL DISTRIBUTION WIDTH 11.8 % (11.6-14.8)
--- NOTE | 2020-06-21 06:44 | Hematology/Onc Progress Note ---
Assessment/Plan Assessment/Plan Assessment and recs # Leukocytosis with Pneumonia due to COVID-19 virus -> wbc trend 15-->11-->10 --> ABX as per id --> imaging does show pna --> anticoag recommended --> on remdesivir # Anemia of chronic disease --> hgb 12 # Elevated ddimer due to covid --> duplex legs -> LOVENOX sq # Covid19++ with Hypoxia -> steriods, abx per id # Renal insufficiency -> per renal care # Sepsis due to above --> abx, fluid resuscitation # Dvt ppx lovenox sq Appreciate consultation and dw RN Subjective Constitutional: Denies: no symptoms, chills, fever, malaise, weakness, other HEENT: Denies: no symptoms, eye pain, blurred vision, tearing, double vision, ear pain, ear discharge, nose pain, nose congestion, throat pain, throat swelling, mouth pain, mouth swelling, other Respiratory: Denies: no symptoms, cough, shortness of breath, SOB with excertion, SOB at rest, sputum, wheezing, other Gastrointestinal/Abdominal: Denies: no symptoms, abdomen distended, abdominal pain, black stools, tarry stools, blood in stool, constipated, diarrhea, difficulty swallowing, nausea, poor appetite, poor fluid intake, rectal bleedin g, vomiting, other Genitourinary: Denies: no symptoms, burning, discharge, frequency, flank pain, hematuria, incontinence, pain, urgency, other Neurologic/Psychiatric: Denies: no symptoms, anxiety, depressed, emotional problems, headache, numbness, paresthesia, pre-existing deficit, seizure, tingling, tremors, weakness, other Hematologic/Lymphatic: Denies: no symptoms, anemia, easy bleeding, easy bruising, adenopathy, other Allergies: Coded Allergies: No Known Allergies (Unverified , 06/17/20) Subjective 06/19 sleeping, comfortable, on bipap, meds have been reviewed 06/21 on bipap, labs have been reviewed, no major events Objective Objective Current Medications Medications (Trade) Dose Ordered Sig/Maya Route PRN Reason Start Time Stop Time Status Last Admin Dose Admin Acetaminophen (Tylenol) 500 mg Q4H PRN ORAL Mild Pain (Pain Scale 1-3) 06/18/20 00:15 07/18/20 00:14 Acetaminophen (Tylenol) 500 mg Q4H PRN ORAL Temp >100.5 06/18/20 00:15 07/18/20 00:14 Dexamethasone Sodium Phosphate (Decadron 10mg/ ml Inj) 6 mg DAILY IV 06/18/20 09:45 06/27/20 09:01 06/20/20 09:37 Dextrose 1,000 ml @ 75 mls/hr [id number] IV 06/19/20 13:30 07/19/20 13:29 06/21/20 01:04 Dextrose (Dextrose 50%) 25 ml Q30M PRN IV Hypoglycemia 06/18/20 14:15 09/16/20 14:14 Dextrose (Dextrose 50%) 50 ml Q30M PRN IV Hypoglycemia 06/18/20 14:15 09/16/20 14:14 Docusate Sodium (Colace) 100 mg THREE TIMES A DAY ORAL 06/18/20 13:00 07/18/20 12:59 06/20/20 18:00 Enoxaparin Sodium (Lovenox) 40 mg DAILY SUBQ 06/21/20 09:00 09/19/20 08:59 Insulin Aspart (NovoLOG) while NPO Q6HR SUBQ 06/18/20 18:00 09/16/20 17:59 06/20/20 18:04 Pantoprazole (Protonix) 40 mg EVERY 12 HOURS IVP 06/18/20 21:00 07/18/20 20:59 06/20/20 21:04 Remdesivir 100 mg/ Sodium Chloride 250 ml @ 250 mls/hr Q24H IV 06/19/20 12:00 06/22/20 12:59 06/20/20 12:57 Last 24 Hour Vital Signs Date Time Temp Pulse Resp B/P (MAP) Pulse Ox O2 Delivery O2 Flow Rate FiO2 06/21/20 05:15 84 32 94 90 06/21/20 04:00 Bi-pap 90.0 06/21/20 04:00 90.0 06/21/20 04:00 73 06/21/20 04:00 97.7 82 20 145/75 (98) 95 06/21/20 03:28 86 38 95 90 06/21/20 00:35 82 30 94 90 06/21/20 00:00 90.0 06/21/20 00:00 Bi-pap 90.0 06/21/20 00:00 97.9 90 20 145/82 (103) 94 06/21/20 00:00 77 06/20/20 23:25 92 33 90 60 06/20/20 21:03 97 36 92 60 06/20/20 20:00 Bi-pap 70.0 06/20/20 20:00 60.0 06/20/20 20:00 73 06/20/20 20:00 97.9 78 20 132/82 (99) 94 06/20/20 19:20 78 32 96 60 06/20/20 16:49 79 32 96 60 06/20/20 16:00 99.7 81 20 144/79 (100) 94 06/20/20 16:00 70.0 06/20/20 16:00 Bi-pap 70.0 06/20/20 16:00 73 06/20/20 15:00 73 29 97 60 06/20/20 13:01 91 30 97 70 06/20/20 12:00 70.0 06/20/20 12:00 98.2 84 22 146/76 (99) 93 06/20/20 12:00 Bi-pap 70.0 06/20/20 12:00 77 06/20/20 11:14 91 30 97 70 06/20/20 09:00 79 30 98 70 06/20/20 08:00 70.0 06/20/20 08:00 98.6 84 22 143/79 (100) 99 06/20/20 08:00 79 06/20/20 08:00 Bi-pap 70.0 06/20/20 07:21 89 31 94 70 06/20/20 04:00 98.6 93 22 133/72 (92) 98 06/20/20 04:00 70 06/20/20 04:00 70.0 06/20/20 04:00 Bi-pap 70.0 06/20/20 03:19 80 30 96 70 06/20/20 00:00 Bi-pap 70.0 06/20/20 00:00 96.0 93 22 147/86 (106) 98 06/20/20 00:00 82 06/19/20 22:28 85 34 97 70 06/19/20 20:00 98.2 70 22 142/76 (98) 98 06/19/20 20:00 Bi-pap 70.0 06/19/20 20:00 70.0 06/19/20 20:00 74 06/19/20 19:08 72 32 99 70 06/19/20 16:00 71 06/19/20 16:00 70.0 06/19/20 16:00 Bi-pap 70.0 06/19/20 16:00 98.2 70 24 126/70 (88) 96 06/19/20 14:50 78 32 93 70 06/19/20 12:00 58 06/19/20 12:00 96.4 71 24 128/70 (89) 93 06/19/20 12:00 Bi-pap 70.0 06/19/20 12:00 70.0 06/19/20 11:15 70 30 94 70 06/19/20 08:00 70.0 06/19/20 08:00 Bi-pap 70.0 06/19/20 08:00 98.1 89 20 130/99 (109) 99 06/19/20 07:51 59 06/19/20 07:15 67 27 96 70 Intake and Output 06/20/20 06/21/20 19:00 07:00 Intake Total 850 ml 525 ml Balance 850 ml 525 ml Intake IV Total 850 ml 525 ml Labs Test 06/18/20 13:20 06/18/20 17:41 06/19/20 06:22 06/19/20 13:02 Urine Random Sodium 59 mmol/L (20-110) POC Whole Blood Glucose 167 MG/DL (74-106) White Blood Count 11.2 K/UL (4.8-10.8) Red Blood Count 4.13 M/UL (4.20-5.40) Hemoglobin 12.3 G/DL (12.0-16.0) Hematocrit 37.4 % (37.0-47.0) Mean Corpuscular Volume 91 FL (80-99) Mean Corpuscular Hemoglobin 29.7 PG (27.0-31.0) Mean Corpuscular Hemoglobin Concent 32.8 G/DL (32.0-36.0) Red Cell Distribution Width 11.5 % (11.6-14.8) Platelet Count 294 K/UL (150-450) Mean Platelet Volume 8.1 FL (6.5-10.1) Neutrophils (%) (Auto) % (45.0-75.0) Lymphocytes (%) (Auto) % (20.0-45.0) Monocytes (%) (Auto) % (1.0-10.0) Eosinophils (%) (Auto) % (0.0-3.0) Basophils (%) (Auto) % (0.0-2.0) Differential Total Cells Counted 100 Neutrophils % (Manual) 94 % (45-75) Lymphocytes % (Manual) 4 % (20-45) Monocytes % (Manual) 2 % (1-10) Eosinophils % (Manual) 0 % (0-3) Basophils % (Manual) 0 % (0-2) Band Neutrophils 0 % (0-8) Platelet Estimate Adequate Platelet Morphology Normal Polychromasia 1+ Hypochromasia 1+ Sodium Level 152 MMOL/L (136-145) Potassium Level 3.9 MMOL/L (3.5-5.1) Chloride Level 117 MMOL/L (98-107) Carbon Dioxide Level 28 MMOL/L (21-32) Anion Gap 7 mmol/L (5-15) Blood Urea Nitrogen 44 mg/dL (7-18) Creatinine 1.0 MG/DL (0.55-1.30) Estimat Glomerular Filtration Rate 54.8 mL/min (>60) Glucose Level 141 MG/DL (74-106) Hemoglobin A1c 7.1 % (4.3-6.0) Lactic Acid Level 1.40 mmol/L (0.4-2.0) Uric Acid 8.2 MG/DL (2.6-7.2) Calcium Level 8.6 MG/DL (8.5-10.1) Phosphorus Level 3.5 MG/DL (2.5-4.9) Magnesium Level 4.2 MG/DL (1.8-2.4) Iron Level 46 ug/dL (50-175) Total Iron Binding Capacity 212 ug/dL (250-450) Percent Iron Saturation 22 % (15-50) Unsaturated Iron Binding 166 ug/dL (112-346) Total Bilirubin 0.6 MG/DL (0.2-1.0) Direct Bilirubin 0.3 MG/DL (0.0-0.3) Gamma Glutamyl Transpeptidase 86 U/L (5-85) Aspartate Amino Transf (AST/SGOT) 55 U/L (15-37) Alanine Aminotransferase (ALT/SGPT) 50 U/L (12-78) Alkaline Phosphatase 66 U/L (46-116) Lactate Dehydrogenase 915 U/L (81-234) Total Creatine Kinase 228 U/L (26-308) C-Reactive Protein, Quantitative 2.2 mg/dL (0.00-0.90) Pro-B-Type Natriuretic Peptide 199 pg/mL (0-125) Total Protein 7.3 G/DL (6.4-8.2) Albumin 2.5 G/DL (3.4-5.0) Globulin 4.8 g/dL Albumin/Globulin Ratio 0.5 (1.0-2.7) Triglycerides Level 203 MG/DL (30-150) Cholesterol Level 145 MG/DL (< 200) LDL Cholesterol 85 mg/dL (<100) HDL Cholesterol 27 MG/DL (40-60) Cholesterol/HDL Ratio 5.4 (3.3-4.4) Lipase 164 U/L (73-393) Vitamin B12 Level > 2000 PG/ML (193-986) Folate 13.0 NG/ML (8.6-58.9) Thyroid Stimulating Hormone (TSH) 0.149 uiU/mL (0.358-3.740) Test 06/19/20 18:32 06/20/20 00:10 06/20/20 03:00 06/20/20 05:37 POC Whole Blood Glucose 138 MG/DL (74-106) 147 MG/DL (74-106) White Blood Count 10.4 K/UL (4.8-10.8) Red Blood Count 3.99 M/UL (4.20-5.40) Hemoglobin 12.4 G/DL (12.0-16.0) Hematocrit 36.1 % (37.0-47.0) Mean Corpuscular Volume 90 FL (80-99) Mean Corpuscular Hemoglobin 31.0 PG (27.0-31.0) Mean Corpuscular Hemoglobin Concent 34.3 G/DL (32.0-36.0) Red Cell Distribution Width 12.0 % (11.6-14.8) Platelet Count 275 K/UL (150-450) Mean Platelet Volume 7.0 FL (6.5-10.1) Neutrophils (%) (Auto) % (45.0-75.0) Lymphocytes (%) (Auto) % (20.0-45.0) Monocytes (%) (Auto) % (1.0-10.0) Eosinophils (%) (Auto) % (0.0-3.0) Basophils (%) (Auto) % (0.0-2.0) Differential Total Cells Counted 100 Neutrophils % (Manual) 88 % (45-75) Lymphocytes % (Manual) 9 % (20-45) Monocytes % (Manual) 3 % (1-10) Eosinophils % (Manual) 0 % (0-3) Basophils % (Manual) 0 % (0-2) Band Neutrophils 0 % (0-8) Platelet Estimate Adequate Platelet Morphology Normal Red Blood Cell Morphology Normal Sodium Level 153 MMOL/L (136-145) Potassium Level 4.3 MMOL/L (3.5-5.1) Chloride Level 118 MMOL/L (98-107) Carbon Dioxide Level 27 MMOL/L (21-32) Anion Gap 8 mmol/L (5-15) Blood Urea Nitrogen 42 mg/dL (7-18) Creatinine 0.9 MG/DL (0.55-1.30) Estimat Glomerular Filtration Rate > 60 mL/min (>60) Glucose Level 148 MG/DL (74-106) Uric Acid 7.0 MG/DL (2.6-7.2) Calcium Level 8.1 MG/DL (8.5-10.1) Phosphorus Level 3.2 MG/DL (2.5-4.9) Magnesium Level 3.6 MG/DL (1.8-2.4) Total Bilirubin 0.8 MG/DL (0.2-1.0) Direct Bilirubin 0.1 MG/DL (0.0-0.3) Aspartate Amino Transf (AST/SGOT) 55 U/L (15-37) Alanine Aminotransferase (ALT/SGPT) 48 U/L (12-78) Alkaline Phosphatase 68 U/L (46-116) C-Reactive Protein, Quantitative 2.1 mg/dL (0.00-0.90) Pro-B-Type Natriuretic Peptide 77 pg/mL (0-125) Total Protein 7.2 G/DL (6.4-8.2) Albumin 2.5 G/DL (3.4-5.0) Globulin 4.7 g/dL Albumin/Globulin Ratio 0.5 (1.0-2.7) Test 06/20/20 12:00 06/21/20 04:10 Height (Feet): 5 Height (Inches): 2.00 Weight (Pounds): 138 Objective Physical Exam Vitals: reviewed, abnormal - Interpreted as low by me General: GCS 15 - Sometimes slightly confused, non-toxic, mild distress Head: normocephalic, moist mucus membranes Neck: supple Respiratory: no retraction, no accessory muscle use, respiratory distress - Minimal with tachypnea, crackles Cardiovascular: regular rate, rhythm, no edema Gastrointestinal: normal inspection, non tender, soft Genitourinary: no CVA tenderness Musculoskeletal: back normal Neurologic: alert, oriented x3, grossly normal Psychiatric: mood/affect normal - sometimes confused Skin: no rash, warm/dry Jj Swann MD Jun 21, 2020 06:44
[2020-06-21 07:13] LABS: ALANINE AMINOTRANSFERASE 48 U/L (12-78); ALBUMIN 2.5 G/DL (3.4-5.0); ALBUMIN/GLOBULIN RATIO 0.5 (1.0-2.7); ALKALINE PHOSPHATASE 69 U/L (46-116); ANION GAP 9 mmol/L (5-15); ASPARTATE AMINO TRANSFERASE 50 U/L (15-37); BILIRUBIN,DIRECT 0.2 MG/DL (0.0-0.3); BILIRUBIN,TOTAL 0.8 MG/DL (0.2-1.0); BLOOD UREA NITROGEN 34 mg/dL (7-18); CALCIUM 8.5 MG/DL (8.5-10.1); CARBON DIOXIDE 26 MMOL/L (21-32); CHLORIDE 118 MMOL/L (98-107); CREATININE 0.8 MG/DL (0.55-1.30); POTASSIUM 3.8 MMOL/L (3.5-5.1); SODIUM 153 MMOL/L (136-145)
--- NOTE | 2020-06-21 07:24 | NUR ---
NURSE HAND-OFF REPORT: Important Events on Shift: Patient Status: Diet: Pending Orders: Pending Results/Labs: Pending MD notification: Latest Vital Signs: Temperature 97.7 , Pulse 84 , B/P 145 /75 , Respiratory Rate 32 , O2 SAT 94 , Non-Rebreather, O2 Flow Rate 90.0 . Vital Sign Comment: EKG Rhythm: Sinus Rhythm Rhythm change?: N MD Notified?: N - MD Response: Latest Carney Fall Score: 45 Fall Risk: High Risk Safety Measures: Call light Within Reach, Bed Alarm Zone 1, Side Rails Side Rails x2, Bed position Low and Locked. Fall Precautions: Yellow Socks Yellow Gown Door Sign Patient Fall Education Report given to .
--- NOTE | 2020-06-21 07:28 | NUR ---
NURSE NOTES: Received report from Michelle AUSTIN.
[2020-06-21 08:00] VITALS: BP 152/68
--- NOTE | 2020-06-21 08:20 | NUR ---
NURSE NOTES: Pt. in bed, awake, a/o x 4. No sign of distress. On cont. Bipap 15/8 with Fi O2 at 90%. Tried to lower Fi O2 but pt. deSat fast. No grimacing noted. IV at right wrist #20g. and right AC #20g. in placed patent/intact running D5W at 75cc/hr. Bed in low position, locked. Call light within reach. Will cont. to monitor.
[2020-06-21] MEDS: Enoxaparin 40mg Inj SUBQ SCH (08:59)
[2020-06-21] MEDS: dexAMETHasone 10mg/ml Inj IV SCH (08:59)
[2020-06-21] MEDS: Docusate 100mg cap ORAL SCH ×3 (09:00→18:00)
[2020-06-21] MEDS: Pantoprazole Inj IVP SCH ×2 (09:00→20:22)
--- NOTE | 2020-06-21 11:03 | NUR ---
INSURANCE CLINICALS FAXED TO [facility]S [facility]CLUDE [facility] BEDS AT THE [facility] [phone]
--- NOTE | 2020-06-21 11:35 | Pulmonology Progress Note ---
Subjective ROS Limited/Unobtainable: Yes Constitutional: Reports: no symptoms HEENT: Repors: no symptoms Respiratory: Reports: no symptoms Cardiovascular: Reports: no symptoms Gastrointestinal/Abdominal: Reports: no symptoms Allergies: Coded Allergies: No Known Allergies (Unverified , 06/17/20) Objective Last 24 Hour Vital Signs Date Time Temp Pulse Resp B/P (MAP) Pulse Ox O2 Delivery O2 Flow Rate FiO2 06/21/20 08:00 Bi-pap 90.0 06/21/20 08:00 99.0 95 35 152/68 (96) 94 06/21/20 08:00 90.0 06/21/20 07:47 95 06/21/20 05:15 84 32 94 90 06/21/20 04:00 Bi-pap 90.0 06/21/20 04:00 90.0 06/21/20 04:00 73 06/21/20 04:00 97.7 82 20 145/75 (98) 95 06/21/20 03:28 86 38 95 90 06/21/20 00:35 82 30 94 90 06/21/20 00:00 90.0 06/21/20 00:00 Bi-pap 90.0 06/21/20 00:00 97.9 90 20 145/82 (103) 94 06/21/20 00:00 77 06/20/20 23:25 92 33 90 60 06/20/20 21:03 97 36 92 60 06/20/20 20:00 Bi-pap 70.0 06/20/20 20:00 60.0 06/20/20 20:00 73 06/20/20 20:00 97.9 78 20 132/82 (99) 94 06/20/20 19:20 78 32 96 60 06/20/20 16:49 79 32 96 60 06/20/20 16:00 99.7 81 20 144/79 (100) 94 06/20/20 16:00 70.0 06/20/20 16:00 Bi-pap 70.0 06/20/20 16:00 73 06/20/20 15:00 73 29 97 60 06/20/20 13:01 91 30 97 70 06/20/20 12:00 70.0 06/20/20 12:00 98.2 84 22 146/76 (99) 93 06/20/20 12:00 Bi-pap 70.0 06/20/20 12:00 77 Intake and Output 06/20/20 06/21/20 19:00 07:00 Intake Total 850 ml 750 ml Output Total 1000 ml Balance 850 ml -250 ml Intake IV Total 850 ml 750 ml Output Urine Total 1000 ml # Voids 4 General Appearance: no acute distress HEENT: atraumatic Respiratory: crackles/rales Cardiovascular: normal rate Abdomen: soft, non tender Laboratory Tests 06/20/20 12:00: POC Whole Blood Glucose [Pending] 06/21/20 04:10: White Blood Count 10.0, Red Blood Count 4.50, Hemoglobin 13.4, Hematocrit 40.9, Mean Corpuscular Volume 91, Mean Corpuscular Hemoglobin 29.8, Mean Corpuscular Hemoglobin Concent 32.7, Red Cell Distribution Width 11.8, Platelet Count 319, Mean Platelet Volume 7.4, Neutrophils (%) (Auto) , Lymphocytes (%) (Auto) , Monocytes (%) (Auto) , Eosinophils (%) (Auto) , Basophils (%) (Auto) , Differential Total Cells Counted 100, Neutrophils % (Manual) 86H, Lymphocytes % (Manual) 9L, Monocytes % (Manual) 5, Eosinophils % (Manual) 0, Basophils % (Manual) 0, Band Neutrophils 0, Platelet Estimate Adequate, Platelet Morphology Normal, Red Blood Cell Morphology Normal, Sodium Level 153H, Potassium Level 3.8, Chloride Level 118H, Carbon Dioxide Level 26, Anion Gap 9, Blood Urea Nitrogen 34H, Creatinine 0.8, Estimat Glomerular Filtration Rate > 60, Glucose Level 117H, Uric Acid 5.7, Calcium Level 8.5, Phosphorus Level 3.0, Magnesium Level 3.1H, Total Bilirubin 0.8, Direct Bilirubin 0.2, Aspartate Amino Transf (AST/SGOT) 50H, Alanine Aminotransferase (ALT/SGPT) 48, Alkaline Phosphatase 69, C-Reactive Protein, Quantitative 3.4H, Pro-B-Type Natriuretic Peptide 140H, Total Protein 7.2, Albumin 2.5L, Globulin 4.7, Albumin/Globulin Ratio 0.5L Current Medications Medications (Trade) Dose Ordered Sig/Maya Route PRN Reason Start Time Stop Time Status Last Admin Dose Admin Acetaminophen (Tylenol) 500 mg Q4H PRN ORAL Mild Pain (Pain Scale 1-3) 06/18/20 00:15 07/18/20 00:14 Acetaminophen (Tylenol) 500 mg Q4H PRN ORAL Temp >100.5 06/18/20 00:15 07/18/20 00:14 Dexamethasone Sodium Phosphate (Decadron 10mg/ ml Inj) 6 mg DAILY IV 06/18/20 09:45 06/27/20 09:01 06/21/20 08:59 Dextrose 1,000 ml @ 75 mls/hr [id number] IV 06/19/20 13:30 07/19/20 13:29 06/21/20 01:04 Dextrose (Dextrose 50%) 25 ml Q30M PRN IV Hypoglycemia 06/18/20 14:15 09/16/20 14:14 Dextrose (Dextrose 50%) 50 ml Q30M PRN IV Hypoglycemia 06/18/20 14:15 09/16/20 14:14 Docusate Sodium (Colace) 100 mg THREE TIMES A DAY ORAL 06/18/20 13:00 07/18/20 12:59 06/20/20 18:00 Enoxaparin Sodium (Lovenox) 40 mg DAILY SUBQ 06/21/20 09:00 09/19/20 08:59 06/21/20 08:59 Insulin Aspart (NovoLOG) while NPO Q6HR SUBQ 06/18/20 18:00 09/16/20 17:59 06/21/20 06:00 Pantoprazole (Protonix) 40 mg EVERY 12 HOURS IVP 06/18/20 21:00 07/18/20 20:59 06/21/20 09:00 Remdesivir 100 mg/ Sodium Chloride 250 ml @ 250 mls/hr Q24H IV 06/19/20 12:00 06/22/20 12:59 06/20/20 12:57 Assessment/Plan Assessment/Plan 1. COVID-19 pneumonia -on BiPAP, FiO2 increased from 70 to 90% yesterday ; will continue to wean as tolerated -Encourage proning -On Decadron, and remdesivir - can observe off abx since WBC improving, oxygen requirement improving, and afebrile; per ID 2. Leukocytosis -Likely secondary to #1 -WBC improving 3. Elevated D-dimer -Venous duplex ultrasound negative for DVT -Was on full dose Lovenox, switched to 40 subcu QD for DVT prophylaxis 4. Renal insufficiency -On IV fluids - nephro following 5. Anemia of chronic disease -Hematology oncology following 6. Sepsis -Status post antibiotics, fluid resuscitation The care for this patient was discussed with my supervising physician. Time spent for this case was approximately 31 minutes. Dave Smith Jun 21, 2020 11:35
[2020-06-21] MEDS: Maintenance Dose:Remdesivir 100mg/NS 230ml x 4 Doses IV SCH ×2 (11:48)
[2020-06-21 12:00] VITALS: BP 141/82
--- NOTE | 2020-06-21 12:00 | NUR ---
NURSE NOTES: Pt. remain stable. On cont. Bipap unable to tolerate the tirtation of Fi O2. Maintain at 90% Fi O2. Sat at 94%. Pt. able to use commode with RN assistance.
--- NOTE | 2020-06-21 14:26 | Nephrology Progress Note ---
Assessment/Plan Problem List: (1) LEONARDO (acute kidney injury) (2) Dehydration (3) DMII (diabetes mellitus, type 2) (4) Pneumonia due to COVID-19 virus (5) Hypoxia Assessment 70-year-old female presents with COVID-19 pneumonia and hypoxia On admission has BUN of 77 and creatinine of 1.6. Renal failure most likely prerenal and dehydration with possible underlying chronic kidney disease Patient has elevated inflammatory markers Hypoalbuminemia Electrolyte abnormalities Hyperglycemia Plan June 21: Status quo. On BiPAP. Full code. Serum sodium 153. Continue D5W. Continue to monitor electrolytes. Continue per consultants. June 20: Patient full code. On BiPAP. Labs reviewed. Serum sodium rising. Will increase D5W to 75 cc an hour. Continue to monitor electrolytes. June 19: IV changed to D5W. Monitor blood sugar. Monitor electrolytes. Medication list reviewed. Patient is being treated for COVID-19 pneumonia. Patient is full code. Previously Pulmonary support IV antibiotics Slow hydration Avoid nephrotoxic Monitor renal parameters Per orders Subjective ROS Limited/Unobtainable: Yes Objective Objective Last 24 Hour Vital Signs Date Time Temp Pulse Resp B/P (MAP) Pulse Ox O2 Delivery O2 Flow Rate FiO2 06/21/20 12:00 90.0 06/21/20 12:00 99.0 110 22 141/82 (101) 93 06/21/20 08:00 Bi-pap 90.0 06/21/20 08:00 99.0 95 35 152/68 (96) 94 06/21/20 08:00 90.0 06/21/20 07:47 95 06/21/20 05:15 84 32 94 90 06/21/20 04:00 Bi-pap 90.0 06/21/20 04:00 90.0 06/21/20 04:00 73 06/21/20 04:00 97.7 82 20 145/75 (98) 95 06/21/20 03:28 86 38 95 90 06/21/20 00:35 82 30 94 90 06/21/20 00:00 90.0 06/21/20 00:00 Bi-pap 90.0 06/21/20 00:00 97.9 90 20 145/82 (103) 94 06/21/20 00:00 77 06/20/20 23:25 92 33 90 60 06/20/20 21:03 97 36 92 60 06/20/20 20:00 Bi-pap 70.0 06/20/20 20:00 60.0 06/20/20 20:00 73 06/20/20 20:00 97.9 78 20 132/82 (99) 94 06/20/20 19:20 78 32 96 60 06/20/20 16:49 79 32 96 60 06/20/20 16:00 99.7 81 20 144/79 (100) 94 06/20/20 16:00 70.0 06/20/20 16:00 Bi-pap 70.0 06/20/20 16:00 73 06/20/20 15:00 73 29 97 60 Intake and Output 06/20/20 06/21/20 19:00 07:00 Intake Total 850 ml 750 ml Output Total 1000 ml Balance 850 ml -250 ml Intake IV Total 850 ml 750 ml Output Urine Total 1000 ml # Voids 4 Current Medications Medications (Trade) Dose Ordered Sig/Maya Route PRN Reason Start Time Stop Time Status Last Admin Dose Admin Acetaminophen (Tylenol) 500 mg Q4H PRN ORAL Mild Pain (Pain Scale 1-3) 06/18/20 00:15 07/18/20 00:14 Acetaminophen (Tylenol) 500 mg Q4H PRN ORAL Temp >100.5 06/18/20 00:15 07/18/20 00:14 Dexamethasone Sodium Phosphate (Decadron 10mg/ ml Inj) 6 mg DAILY IV 06/18/20 09:45 06/27/20 09:01 06/21/20 08:59 Dextrose 1,000 ml @ 75 mls/hr [id number] IV 06/19/20 13:30 07/19/20 13:29 06/21/20 01:04 Dextrose (Dextrose 50%) 25 ml Q30M PRN IV Hypoglycemia 06/18/20 14:15 09/16/20 14:14 Dextrose (Dextrose 50%) 50 ml Q30M PRN IV Hypoglycemia 06/18/20 14:15 09/16/20 14:14 Docusate Sodium (Colace) 100 mg THREE TIMES A DAY ORAL 06/18/20 13:00 07/18/20 12:59 06/20/20 18:00 Enoxaparin Sodium (Lovenox) 40 mg DAILY SUBQ 06/21/20 09:00 09/19/20 08:59 06/21/20 08:59 Insulin Aspart (NovoLOG) while NPO Q6HR SUBQ 06/18/20 18:00 09/16/20 17:59 06/21/20 06:00 Pantoprazole (Protonix) 40 mg EVERY 12 HOURS IVP 06/18/20 21:00 07/18/20 20:59 06/21/20 09:00 Remdesivir 100 mg/ Sodium Chloride 250 ml @ 250 mls/hr Q24H IV 06/19/20 12:00 06/22/20 12:59 06/21/20 11:48 Laboratory Tests 06/21/20 04:10: White Blood Count 10.0, Red Blood Count 4.50, Hemoglobin 13.4, Hematocrit 40.9, Mean Corpuscular Volume 91, Mean Corpuscular Hemoglobin 29.8, Mean Corpuscular Hemoglobin Concent 32.7, Red Cell Distribution Width 11.8, Platelet Count 319, Mean Platelet Volume 7.4, Neutrophils (%) (Auto) , Lymphocytes (%) (Auto) , Monocytes (%) (Auto) , Eosinophils (%) (Auto) , Basophils (%) (Auto) , Differential Total Cells Counted 100, Neutrophils % (Manual) 86H, Lymphocytes % (Manual) 9L, Monocytes % (Manual) 5, Eosinophils % (Manual) 0, Basophils % (Manual) 0, Band Neutrophils 0, Platelet Estimate Adequate, Platelet Morphology Normal, Red Blood Cell Morphology Normal, Sodium Level 153H, Potassium Level 3.8, Chloride Level 118H, Carbon Dioxide Level 26, Anion Gap 9, Blood Urea Nitrogen 34H, Creatinine 0.8, Estimat Glomerular Filtration Rate > 60, Glucose Level 117H, Uric Acid 5.7, Calcium Level 8.5, Phosphorus Level 3.0, Magnesium Level 3.1H, Total Bilirubin 0.8, Direct Bilirubin 0.2, Aspartate Amino Transf (AST/SGOT) 50H, Alanine Aminotransferase (ALT/SGPT) 48, Alkaline Phosphatase 69, C-Reactive Protein, Quantitative 3.4H, Pro-B-Type Natriuretic Peptide 140H, Total Protein 7.2, Albumin 2.5L, Globulin 4.7, Albumin/Globulin Ratio 0.5L Height (Feet): 5 Height (Inches): 2.00 Weight (Pounds): 138 General Appearance: no apparent distress, lethargic EENT: other - On BiPAP Cardiovascular: tachycardia Respiratory/Chest: decreased breath sounds Abdomen: distended Raza De Jesus MD Jun 21, 2020 14:26
[2020-06-21 16:00] VITALS: BP 140/92
--- NOTE | 2020-06-21 17:56 | NUR ---
NURSE NOTES: Called and left message to Dr. Elsa Turpin regarding K+ 3.1 awaiting for response.
--- NOTE | 2020-06-21 18:25 | NUR ---
NURSE NOTES: Called Dr. Clayton and left a message regarding K+ 3.1 awaiting for response. Per Dr. Elsa Turpin (he doesn't have pt. at [facility]).
--- NOTE | 2020-06-21 19:15 | NUR ---
NURSE NOTES: Received report from Patricia AUSTIN. patient in bed restless when making rounds noted patient removed bipap saturation was 31%, placed the BIPAP back 03/01 fi01 100% saturation went up to 94%. RT came. Reality orientation provided. encouraged patient to verbalized needs, fears and feelings to staff. Explained the importance v/s risk and benefits of BIPAP. Instructed patient to use call light for assistance. Bed alarm on and in low position. offered bedside commode. Covid+ airborne precaution maintained and observed. will continue plan of care.
--- NOTE | 2020-06-21 19:18 | NUR ---
NURSE NOTES: Called Dr. De Jesus and received K+ IVPB 20MEQ. X 1 now. Noted and carried out.
--- NOTE | 2020-06-21 19:19 | NUR ---
NURSE HAND-OFF REPORT: Important Events on Shift: Pt. on cont. Bipap. Patient Status: Pt. remain stable. Diet: npo Pending Orders: n Pending Results/Labs:n Pending MD notification:n Latest Vital Signs: Temperature 98.0 , Pulse 133 , B/P 140 /92 , Respiratory Rate 37 , O2 SAT 93 , Non-Rebreather, O2 Flow Rate 90.0 . Vital Sign Comment: wnl EKG Rhythm: Sinus Tachycardia Rhythm change?: N MD Notified?: N - MD Response: Latest Carney Fall Score: 45 Fall Risk: High Risk Safety Measures: Call light Within Reach, Bed Alarm Zone 1, Side Rails Side Rails x2, Bed position Low and Locked. Fall Precautions: Yellow Socks Yellow Gown Door Sign Patient Fall Education Report given to Michelle AUSTIN.
[2020-06-21 20:00] VITALS: BP 141/98
--- NOTE | 2020-06-21 20:15 | NUR ---
NURSE NOTES: Called DR. De Jesus regarding the potassium level result was 3.8 not 3.1. over look and reported by previous nurse. Per MD D/C potassium 10 meQ x2 IVPB. charge nurse aware.
--- NOTE | 2020-06-21 20:22 | General Progress Note ---
Subjective ROS Limited/Unobtainable: Yes Allergies: Coded Allergies: No Known Allergies (Unverified , 06/17/20) Objective Last 24 Hour Vital Signs Date Time Temp Pulse Resp B/P (MAP) Pulse Ox O2 Delivery O2 Flow Rate FiO2 06/21/20 19:29 126 37 91 100 06/21/20 17:21 133 37 93 100 06/21/20 16:00 90.0 06/21/20 16:00 98.0 120 24 140/92 (108) 90 06/21/20 16:00 Bi-pap 90.0 06/21/20 15:32 120 38 93 90 06/21/20 15:32 122 06/21/20 13:16 93 39 94 90 06/21/20 12:00 Bi-pap 90.0 06/21/20 12:00 90.0 06/21/20 12:00 99.0 110 22 141/82 (101) 93 06/21/20 11:40 114 06/21/20 10:56 89 36 93 90 06/21/20 09:10 87 36 93 90 06/21/20 08:00 Bi-pap 90.0 06/21/20 08:00 99.0 95 35 152/68 (96) 94 06/21/20 08:00 90.0 06/21/20 07:47 95 06/21/20 07:32 89 27 96 90 06/21/20 05:15 84 32 94 90 06/21/20 04:00 Bi-pap 90.0 06/21/20 04:00 90.0 06/21/20 04:00 73 06/21/20 04:00 97.7 82 20 145/75 (98) 95 06/21/20 03:28 86 38 95 90 06/21/20 00:35 82 30 94 90 06/21/20 00:00 90.0 06/21/20 00:00 Bi-pap 90.0 06/21/20 00:00 97.9 90 20 145/82 (103) 94 06/21/20 00:00 77 06/20/20 23:25 92 33 90 60 06/20/20 21:03 97 36 92 60 Intake and Output 06/20/20 06/21/20 19:00 07:00 Intake Total 850 ml 750 ml Output Total 1000 ml Balance 850 ml -250 ml Intake IV Total 850 ml 750 ml Output Urine Total 1000 ml # Voids 4 Laboratory Tests 06/21/20 04:10: White Blood Count 10.0, Red Blood Count 4.50, Hemoglobin 13.4, Hematocrit 40.9, Mean Corpuscular Volume 91, Mean Corpuscular Hemoglobin 29.8, Mean Corpuscular Hemoglobin Concent 32.7, Red Cell Distribution Width 11.8, Platelet Count 319, Mean Platelet Volume 7.4, Neutrophils (%) (Auto) , Lymphocytes (%) (Auto) , Monocytes (%) (Auto) , Eosinophils (%) (Auto) , Basophils (%) (Auto) , Differential Total Cells Counted 100, Neutrophils % (Manual) 86H, Lymphocytes % (Manual) 9L, Monocytes % (Manual) 5, Eosinophils % (Manual) 0, Basophils % (Manual) 0, Band Neutrophils 0, Platelet Estimate Adequate, Platelet Morphology Normal, Red Blood Cell Morphology Normal, Sodium Level 153H, Potassium Level 3.8, Chloride Level 118H, Carbon Dioxide Level 26, Anion Gap 9, Blood Urea Nitrogen 34H, Creatinine 0.8, Estimat Glomerular Filtration Rate > 60, Glucose Level 117H, Uric Acid 5.7, Calcium Level 8.5, Phosphorus Level 3.0, Magnesium Level 3.1H, Total Bilirubin 0.8, Direct Bilirubin 0.2, Aspartate Amino Transf (AST/SGOT) 50H, Alanine Aminotransferase (ALT/SGPT) 48, Alkaline Phosphatase 69, C-Reactive Protein, Quantitative 3.4H, Pro-B-Type Natriuretic Peptide 140H, Tot al Protein 7.2, Albumin 2.5L, Globulin 4.7, Albumin/Globulin Ratio 0.5L Height (Feet): 5 Height (Inches): 2.00 Weight (Pounds): 138 Assessment/Plan Problem List: (1) Elevated d-dimer ICD Codes: R79.89 - Other specified abnormal findings of blood chemistry SNOMED: 358419269 (2) Renal insufficiency ICD Codes: N28.9 - Disorder of kidney and ureter, unspecified SNOMED: 882993633, 495165507 (3) PNA (pneumonia) ICD Codes: J18.9 - Pneumonia, unspecified organism SNOMED: 846359995 (4) Dehydration ICD Codes: E86.0 - Dehydration SNOMED: 77856346 (5) LEONARDO (acute kidney injury) ICD Codes: N17.9 - Acute kidney failure, unspecified SNOMED: 4165094, 16368214 (6) Hypoxia ICD Codes: R09.02 - Hypoxemia; J12.82 - Pneumonia due to coronavirus disease 2019 SNOMED: 067456711 (7) Pneumonia due to COVID-19 virus ICD Codes: U07.1 - COVID-19; J12.82 - Pneumonia due to coronavirus disease 2019 SNOMED: 779716886495661690 (8) DMII (diabetes mellitus, type 2) ICD Codes: E11.9 - Type 2 diabetes mellitus without complications SNOMED: 60589472 Status: progressing Assessment/Plan: covid + resp insuff azotemia check lytes afebrile not hypoxic continue supportive care reviewed chart and labs Vidya Montes MD Jun 21, 2020 20:22
[2020-06-22] VITALS: BP 122/77
[2020-06-22] MEDS: NovoLOG Insulin Flexpen SUBQ SCH ×4 (00:13→19:25)
--- NOTE | 2020-06-22 01:00 | NUR ---
NURSE NOTES: Pt desaturating to 80's with High Flow NR. Tachycardic 120's. RT at bedside. Rapid Response initiated. Addendum: 06/23/20 at 0200 by Jerrica Chaves RN Wrong date. Needs to be 06/23/20 at 0100
--- NOTE | 2020-06-22 03:14 | Consultation ---
DATE OF CONSULTATION: 06/18/2020 INFECTIOUS DISEASE CONSULTATION CONSULTING PHYSICIAN: Raji Turpin M.D. PRIMARY ATTENDING PHYSICIAN: Vidya Clayton M.D. REASON FOR CONSULT: COVID-19 pneumonia, hypoxemia. HISTORY OF PRESENT ILLNESS: The patient is a 70-year-old female, admitted last night from home complaining of sickness for 6 days, had muscle weakness, shortness of breath, has hypoxemia at initial evaluation with pulse oximetry of 52%. Had lactic acidosis. COVID test was positive 6 days ago. PAST MEDICAL HISTORY: Significant for hypertension. ALLERGIES: No known drug allergies. MEDICATIONS: Gets a dose of ceftriaxone and dexamethasone in the ER, getting enoxaparin and dexamethasone and Tylenol. SOCIAL HISTORY: Lives with son. No history of alcohol, drug abuse, or smoking. REVIEW OF SYSTEMS: Limited. At the present, had no fever. At the time of admission, had fever of 100.9. PHYSICAL EXAMINATION: VITAL SIGNS: Temperature 98.1, T-max is 100.9, pulse 76, blood pressure 128/67, respiratory rate is 309. HEAD AND NECK: Kirkman conjunctiva. HEART: Normal. LUNGS: Clear. The patient is on BiPAP with FiO2 of 100%. ABDOMEN: Soft. EXTREMITIES: She has no edema. NEUROLOGIC: She is awake, alert, responsive. LABORATORY AND DIAGNOSTIC DATA: WBC at the time of admission was 15.5, currently is 11.6, hemoglobin 12.1, hematocrit 36.1, platelets is 278. Sodium 148, potassium 3.3, chloride 100, bicarb 27, BUN 56, creatinine 1.3, glucose is 214, at the time of admission was 168. Lactic acid was 2.7 that is coming down to 2.3. Blood gas showed pO2 of 63.5. Chest x-ray official report is pending, but shows patchy infiltrates bilaterally. IMPRESSION: Sepsis with fever and leukocytosis. Seems to have COVID-19 pneumonia. Has hypoxemic respiratory failure on BiPAP. Has lactic acidosis, acute renal failure, hyperglycemia, likely underlying diabetes mellitus. Has hypertension. RECOMMENDATIONS: Continue dexamethasone. Case was discussed with pharmacy regarding starting of remdesivir. We will check hemoglobin A1c. We will check COVID-19 PCR. At the end of my exam, I thank, Dr. Clayton, for involving me in the care of this patient. Raji Turpin M.D. DR: JULIANA JOB#: [id number] CC: STEPHEN
[2020-06-22 04:00] VITALS: BP 139/77
--- NOTE | 2020-06-22 04:00 | NUR ---
NURSE NOTES: Patient in bed sleeping comfortably.
--- NOTE | 2020-06-22 06:28 | NUR ---
NURSE NOTES: patient removed BIPAP saturation decrease to 50%, placed patient back to BIPAP saturation 88-90%. RT at bed side will do ABG. patient restless reality orientation provided. encouraged patient to verbalized needs,fears and feelings to staff, explained the importance v/s risk and benefits. MD aware placed bilateral wrist restraint. call light within easy reach.
--- NOTE | 2020-06-22 06:59 | History and Physical Report ---
DATE OF ADMISSION: 06/17/2020 HISTORY OF PRESENT ILLNESS: The patient is being admitted for COVID-positive pneumonia, sepsis, and acute renal failure. The patient has been ill for about a week. The patient positive recently and looks feeling very weak, short of breath, and was coughing. Paramedics were called. The patient was severely hypoxic. The patient was not breathing and brought into the emergency room. The patient feels weak, lack of appetite, shortness of breath, and coughing as well. Denies wheezing. Denies sore throat. Denies headache. Denies nausea, vomiting, or diarrhea. PAST MEDICAL HISTORY: Recent COVID positive, GERD, and also history of hypertension as well. The patient also has a history of GERD and constipation. PAST SURGICAL HISTORY: None. ALLERGIES: No known allergies. MEDICATIONS: Protonix 40 mg daily. FAMILY HISTORY: Noncontributory. SOCIAL HISTORY: Denies history of smoking. Denies history of illegal drugs. No history of drug abuse. Denies history of alcohol abuse. REVIEW OF SYSTEMS: HEENT: Denies headaches. RESPIRATORY: Shortness of breath as well well cough, has both. Denies wheezing. CARDIOVASCULAR: Denies chest pain. GASTROINTESTINAL: Denies nausea, vomiting, or diarrhea. EXTREMITIES: Denies pain. CENTRAL NERVOUS SYSTEM: Reports generalized weakness and fatigue and poor appetite. PHYSICAL EXAMINATION: VITAL SIGNS: Temperature 97.6, pulse is 69, blood pressure 108/63. HEENT: PERRLA. CHEST: Bibasilar rhonchi. CARDIOVASCULAR: Regular rate and rhythm. No murmurs or extra sounds. GASTROINTESTINAL: Soft, nontender, nondistended. No organomegaly. EXTREMITIES: No edema. Dorsalis pedis pulses are present. Has generalized weakness. Reflexes on both sides. LABORATORY DATA: WBC of 15.5, hemoglobin of 13.2, platelets of 341. Sodium 148, potassium of 3.3, chloride 112, BUN of 56, creatinine 1.3, glucose of 214. Troponin 0.013. ASSESSMENT AND PLAN: COVID-positive pneumonia, sepsis, acute renal failure, hypokalemia, dehydration, poor appetite. I have asked Dr. De Jesus, Dr. Jj Swann, Dr. Charlie Sewell, and Dr. Raji Turpin to see the patient to help with the management of the above-mentioned abnormal symptoms and abnormal laboratory and imaging. Antibiotics per Dr. Raji Turpin. Vidya Clayton M.D. DR: Leigh JOB#: [id number] CC:
--- NOTE | 2020-06-22 07:30 | NUR ---
NURSE HAND-OFF REPORT: Important Events on Shift: Patient Status: Diet: NPO Pending Orders: Pending Results/Labs: Pending MD notification: Latest Vital Signs: Temperature 98.6 , Pulse 97 , B/P 139 /77 , Respiratory Rate 24 , O2 SAT 93 , BIPAP 12/8 fi02 100% . Vital Sign Comment: EKG Rhythm: Sinus Tachycardia Rhythm change?: N MD Notified?: N - MD Response: Latest Carney Fall Score: 45 Fall Risk: High Risk Safety Measures: Call light Within Reach, Bed Alarm Zone 1, Side Rails Side Rails x2, Bed position Low and Locked. Fall Precautions: Yellow Socks Yellow Gown Door Sign Patient Fall Education Report given to Viry Shaikh RN Leno Son made aware of patient change of condition and restraint order.
--- NOTE | 2020-06-22 07:41 | Hematology/Onc Progress Note ---
Assessment/Plan Assessment/Plan Assessment and recs # Leukocytosis with Pneumonia due to COVID-19 virus -> wbc trend 15-->11-->10 --> ABX as per id --> imaging does show pna --> anticoag recommended --> on remdesivir # Anemia of chronic disease --> hgb 12 # Elevated ddimer due to covid --> duplex legs -> LOVENOX sq # Covid19++ with Hypoxia -> steriods, abx per id # Renal insufficiency -> per renal care # Sepsis due to above --> abx, fluid resuscitation # Dvt ppx lovenox sq Appreciate consultation and dw RN Subjective Constitutional: Denies: no symptoms, chills, fever, malaise, weakness, other HEENT: Denies: no symptoms, eye pain, blurred vision, tearing, double vision, ear pain, ear discharge, nose pain, nose congestion, throat pain, throat swelling, mouth pain, mouth swelling, other Cardiovascular: Denies: no symptoms, chest pain, edema, irregular heart rate, lightheadedness, palpitations, syncope, other Respiratory: Denies: no symptoms, cough, shortness of breath, SOB with excertion, SOB at rest, sputum, wheezing, other Gastrointestinal/Abdominal: Denies: no symptoms, abdomen distended, abdominal pain, black stools, tarry stools, blood in stool, constipated, diarrhea, difficulty swallowing, nausea, poor appetite, poor fluid intake, rectal bleeding, vomiting, other Endocrine: Denies: no symptoms, excessive sweating, flushing, intolerance to cold, intolerance to heat, increased hunger, increased thirst, increased urine, unexplained weight gain, unexplained weight loss, other Hematologic/Lymphatic: Denies: no symptoms, anemia, easy bleeding, easy bruising, adenopathy, other Allergies: Coded Allergies: No Known Allergies (Unverified , 06/17/20) Subjective 06/19 sleeping, comfortable, on bipap, meds have been reviewed 06/21 on bipap, labs have been reviewed, no major events 06/22 bipap labs reviewed, meds noted, no bleeding Objective Objective Current Medications Medications (Trade) Dose Ordered Sig/Maya Route PRN Reason Start Time Stop Time Status Last Admin Dose Admin Acetaminophen (Tylenol) 500 mg Q4H PRN ORAL Mild Pain (Pain Scale 1-3) 06/18/20 00:15 07/18/20 00:14 Acetaminophen (Tylenol) 500 mg Q4H PRN ORAL Temp >100.5 06/18/20 00:15 07/18/20 00:14 Dexamethasone Sodium Phosphate (Decadron 10mg/ ml Inj) 6 mg DAILY IV 06/18/20 09:45 06/27/20 09:01 06/21/20 08:59 Dextrose 1,000 ml @ 75 mls/hr [id number] IV 06/19/20 13:30 07/19/20 13:29 06/22/20 03:00 Dextrose (Dextrose 50%) 25 ml Q30M PRN IV Hypoglycemia 06/18/20 14:15 09/16/20 14:14 Dextrose (Dextrose 50%) 50 ml Q30M PRN IV Hypoglycemia 06/18/20 14:15 09/16/20 14:14 Docusate Sodium (Colace) 100 mg THREE TIMES A DAY ORAL 06/18/20 13:00 07/18/20 12:59 06/20/20 18:00 Enoxaparin Sodium (Lovenox) 40 mg DAILY SUBQ 06/21/20 09:00 09/19/20 08:59 06/21/20 08:59 Insulin Aspart (NovoLOG) while NPO Q6HR SUBQ 06/18/20 18:00 09/16/20 17:59 06/22/20 06:41 Pantoprazole (Protonix) 40 mg EVERY 12 HOURS IVP 06/18/20 21:00 07/18/20 20:59 06/21/20 20:22 Remdesivir 100 mg/ Sodium Chloride 250 ml @ 250 mls/hr Q24H IV 06/19/20 12:00 06/22/20 12:59 06/21/20 11:48 Last 24 Hour Vital Signs Date Time Temp Pulse Resp B/P (MAP) Pulse Ox O2 Delivery O2 Flow Rate FiO2 06/22/20 04:00 99 06/22/20 04:00 98.6 97 24 139/77 (97) 92 06/22/20 04:00 100.0 06/22/20 04:00 Bi-pap 90.0 06/22/20 03:10 110 32 90 100 06/22/20 00:00 Bi-pap 90.0 06/22/20 00:00 99.0 112 24 122/77 (92) 93 06/22/20 00:00 100.0 06/22/20 00:00 110 06/21/20 23:47 113 34 92 100 06/21/20 20:00 Bi-pap 90.0 06/21/20 20:00 125 06/21/20 20:00 100.0 06/21/20 20:00 98.0 123 24 141/98 (112) 90 06/21/20 19:29 126 37 91 100 06/21/20 17:21 133 37 93 100 06/21/20 16:00 90.0 06/21/20 16:00 98.0 120 24 140/92 (108) 90 06/21/20 16:00 Bi-pap 90.0 06/21/20 15:32 120 38 93 90 06/21/20 15:32 122 06/21/20 13:16 93 39 94 90 06/21/20 12:00 Bi-pap 90.0 06/21/20 12:00 90.0 06/21/20 12:00 99.0 110 22 141/82 (101) 93 06/21/20 11:40 114 06/21/20 10:56 89 36 93 90 06/21/20 09:10 87 36 93 90 06/21/20 08:00 Bi-pap 90.0 06/21/20 08:00 99.0 95 35 152/68 (96) 94 06/21/20 08:00 90.0 06/21/20 07:47 95 06/21/20 07:32 89 27 96 90 06/21/20 05:15 84 32 94 90 06/21/20 04:00 Bi-pap 90.0 06/21/20 04:00 90.0 06/21/20 04:00 73 06/21/20 04:00 97.7 82 20 145/75 (98) 95 06/21/20 03:28 86 38 95 90 06/21/20 00:35 82 30 94 90 06/21/20 00:00 90.0 06/21/20 00:00 Bi-pap 90.0 06/21/20 00:00 97.9 90 20 145/82 (103) 94 06/21/20 00:00 77 06/20/20 23:25 92 33 90 60 06/20/20 21:03 97 36 92 60 06/20/20 20:00 Bi-pap 70.0 06/20/20 20:00 60.0 06/20/20 20:00 73 06/20/20 20:00 97.9 78 20 132/82 (99) 94 06/20/20 19:20 78 32 96 60 06/20/20 16:49 79 32 96 60 06/20/20 16:00 99.7 81 20 144/79 (100) 94 06/20/20 16:00 70.0 06/20/20 16:00 Bi-pap 70.0 06/20/20 16:00 73 06/20/20 15:00 73 29 97 60 06/20/20 13:01 91 30 97 70 06/20/20 12:00 70.0 06/20/20 12:00 98.2 84 22 146/76 (99) 93 06/20/20 12:00 Bi-pap 70.0 06/20/20 12:00 77 06/20/20 11:14 91 30 97 70 06/20/20 09:00 79 30 98 70 06/20/20 08:00 70.0 06/20/20 08:00 98.6 84 22 143/79 (100) 99 06/20/20 08:00 79 06/20/20 08:00 Bi-pap 70.0 Intake and Output 06/21/20 06/22/20 19:00 07:00 Intake Total 825 ml 900 ml Output Total 1000 ml 1000 ml Balance -175 ml -100 ml Intake IV Total 825 ml 900 ml Output Urine Total 1000 ml 1000 ml # Voids 4 3 # Bowel Movements 2 1 Labs Test 06/19/20 13:02 06/19/20 18:32 06/20/20 00:10 06/20/20 03:00 POC Whole Blood Glucose 138 MG/DL (74-106) White Blood Count 10.4 K/UL (4.8-10.8) Red Blood Count 3.99 M/UL (4.20-5.40) Hemoglobin 12.4 G/DL (12.0-16.0) Hematocrit 36.1 % (37.0-47.0) Mean Corpuscular Volume 90 FL (80-99) Mean Corpuscular Hemoglobin 31.0 PG (27.0-31.0) Mean Corpuscular Hemoglobin Concent 34.3 G/DL (32.0-36.0) Red Cell Distribution Width 12.0 % (11.6-14.8) Platelet Count 275 K/UL (150-450) Mean Platelet Volume 7.0 FL (6.5-10.1) Neutrophils (%) (Auto) % (45.0-75.0) Lymphocytes (%) (Auto) % (20.0-45.0) Monocytes (%) (Auto) % (1.0-10.0) Eosinophils (%) (Auto) % (0.0-3.0) Basophils (%) (Auto) % (0.0-2.0) Differential Total Cells Counted 100 Neutrophils % (Manual) 88 % (45-75) Lymphocytes % (Manual) 9 % (20-45) Monocytes % (Manual) 3 % (1-10) Eosinophils % (Manual) 0 % (0-3) Basophils % (Manual) 0 % (0-2) Band Neutrophils 0 % (0-8) Platelet Estimate Adequate Platelet Morphology Normal Red Blood Cell Morphology Normal Sodium Level 153 MMOL/L (136-145) Potassium Level 4.3 MMOL/L (3.5-5.1) Chloride Level 118 MMOL/L (98-107) Carbon Dioxide Level 27 MMOL/L (21-32) Anion Gap 8 mmol/L (5-15) Blood Urea Nitrogen 42 mg/dL (7-18) Creatinine 0.9 MG/DL (0.55-1.30) Estimat Glomerular Filtration Rate > 60 mL/min (>60) Glucose Level 148 MG/DL (74-106) Uric Acid 7.0 MG/DL (2.6-7.2) Calcium Level 8.1 MG/DL (8.5-10.1) Phosphorus Level 3.2 MG/DL (2.5-4.9) Magnesium Level 3.6 MG/DL (1.8-2.4) Total Bilirubin 0.8 MG/DL (0.2-1.0) Direct Bilirubin 0.1 MG/DL (0.0-0.3) Aspartate Amino Transf (AST/SGOT) 55 U/L (15-37) Alanine Aminotransferase (ALT/SGPT) 48 U/L (12-78) Alkaline Phosphatase 68 U/L (46-116) C-Reactive Protein, Quantitative 2.1 mg/dL (0.00-0.90) Pro-B-Type Natriuretic Peptide 77 pg/mL (0-125) Total Protein 7.2 G/DL (6.4-8.2) Albumin 2.5 G/DL (3.4-5.0) Globulin 4.7 g/dL Albumin/Globulin Ratio 0.5 (1.0-2.7) Test 06/20/20 05:37 06/20/20 12:00 06/21/20 04:10 06/22/20 06:37 POC Whole Blood Glucose 147 MG/DL (74-106) 143 MG/DL (74-106) White Blood Count 10.0 K/UL (4.8-10.8) Red Blood Count 4.50 M/UL (4.20-5.40) Hemoglobin 13.4 G/DL (12.0-16.0) Hematocrit 40.9 % (37.0-47.0) Mean Corpuscular Volume 91 FL (80-99) Mean Corpuscular Hemoglobin 29.8 PG (27.0-31.0) Mean Corpuscular Hemoglobin Concent 32.7 G/DL (32.0-36.0) Red Cell Distribution Width 11.8 % (11.6-14.8) Platelet Count 319 K/UL (150-450) Mean Platelet Volume 7.4 FL (6.5-10.1) Neutrophils (%) (Auto) % (45.0-75.0) Lymphocytes (%) (Auto) % (20.0-45.0) Monocytes (%) (Auto) % (1.0-10.0) Eosinophils (%) (Auto) % (0.0-3.0) Basophils (%) (Auto) % (0.0-2.0) Differential Total Cells Counted 100 Neutrophils % (Manual) 86 % (45-75) Lymphocytes % (Manual) 9 % (20-45) Monocytes % (Manual) 5 % (1-10) Eosinophils % (Manual) 0 % (0-3) Basophils % (Manual) 0 % (0-2) Band Neutrophils 0 % (0-8) Platelet Estimate Adequate Platelet Morphology Normal Red Blood Cell Morphology Normal Sodium Level 153 MMOL/L (136-145) Potassium Level 3.8 MMOL/L (3.5-5.1) Chloride Level 118 MMOL/L (98-107) Carbon Dioxide Level 26 MMOL/L (21-32) Anion Gap 9 mmol/L (5-15) Blood Urea Nitrogen 34 mg/dL (7-18) Creatinine 0.8 MG/DL (0.55-1.30) Estimat Glomerular Filtration Rate > 60 mL/min (>60) Glucose Level 117 MG/DL (74-106) Uric Acid 5.7 MG/DL (2.6-7.2) Calcium Level 8.5 MG/DL (8.5-10.1) Phosphorus Level 3.0 MG/DL (2.5-4.9) Magnesium Level 3.1 MG/DL (1.8-2.4) Total Bilirubin 0.8 MG/DL (0.2-1.0) Direct Bilirubin 0.2 MG/DL (0.0-0.3) Aspartate Amino Transf (AST/SGOT) 50 U/L (15-37) Alanine Aminotransferase (ALT/SGPT) 48 U/L (12-78) Alkaline Phosphatase 69 U/L (46-116) C-Reactive Protein, Quantitative 3.4 mg/dL (0.00-0.90) Pro-B-Type Natriuretic Peptide 140 pg/mL (0-125) Total Protein 7.2 G/DL (6.4-8.2) Albumin 2.5 G/DL (3.4-5.0) Globulin 4.7 g/dL Albumin/Globulin Ratio 0.5 (1.0-2.7) Test 06/22/20 06:49 Arterial Blood pH 7.471 (7.350-7.450) Arterial Blood Partial Pressure CO2 29.8 mmHg (35.0-45.0) Arterial Blood Partial Pressure O2 58.5 mmHg (75.0-100.0) Arterial Blood HCO3 21.2 mmol/L (22.0-26.0) Arterial Blood Oxygen Saturation 91.2 % (95-100) Arterial Blood Base Excess -1.2 (-2-2) Amrit Test Positive Height (Feet): 5 Height (Inches): 2.00 Weight (Pounds): 138 Objective Physical Exam Vitals: reviewed, abnormal - Interpreted as low by me General: GCS 15 - Sometimes slightly confused, non-toxic, mild distress Head: normocephalic, moist mucus membranes Neck: supple Respiratory: no retraction, no accessory muscle use, respiratory distress - Minimal with tachypnea, crackles Cardiovascular: regular rate, rhythm, no edema Gastrointestinal: normal inspection, non tender, soft Genitourinary: no CVA tenderness Musculoskeletal: back normal Neurologic: alert, oriented x3, grossly normal Psychiatric: mood/affect normal - sometimes confused Skin: no rash, warm/dry Jj Swann MD Jun 22, 2020 07:40
[2020-06-22 08:00] VITALS: BP 147/90
[2020-06-22] MEDS: Docusate 100mg cap ORAL SCH ×3 (09:00→18:40)
--- NOTE | 2020-06-22 09:04 | NUR ---
RADIOLOGY DEPT., CHEST X-RAY DONE.-P.DYE
--- NOTE | 2020-06-22 09:30 | NUR ---
NURSE NOTES: received report from NORMAN Stephens.
[2020-06-22 09:41] LABS: HEMOGLOBIN 13.8 G/DL (12.0-16.0); MEAN CORPUSCULAR VOLUME 92 FL (80-99); PLATELET COUNT 334 K/UL (150-450); RED CELL DISTRIBUTION WIDTH 12.4 % (11.6-14.8); WHITE BLOOD COUNT 15.3 K/UL (4.8-10.8)
--- NOTE | 2020-06-22 09:53 | NUR ---
NURSE NOTES: morning medication administered successfully. colace non-administered because patient is NPO. patient remains on bipap with saturations in the low 90s (91, 92). on bed, no signs of grimacing or distress noted. will continue to be monitored. will continue plan of care.
[2020-06-22 10:02] LABS: ALANINE AMINOTRANSFERASE 48 U/L (12-78); ALBUMIN 2.5 G/DL (3.4-5.0); ALBUMIN/GLOBULIN RATIO 0.5 (1.0-2.7); ALKALINE PHOSPHATASE 73 U/L (46-116); ANION GAP 9 mmol/L (5-15); ASPARTATE AMINO TRANSFERASE 56 U/L (15-37); BILIRUBIN,DIRECT 0.2 MG/DL (0.0-0.3); BILIRUBIN,TOTAL 0.9 MG/DL (0.2-1.0); BLOOD UREA NITROGEN 31 mg/dL (7-18); CALCIUM 8.5 MG/DL (8.5-10.1); CARBON DIOXIDE 26 MMOL/L (21-32); CHLORIDE 120 MMOL/L (98-107); CREATININE 0.8 MG/DL (0.55-1.30); SODIUM 155 MMOL/L (136-145)
[2020-06-22] MEDS: Enoxaparin 40mg Inj SUBQ SCH (10:14)
[2020-06-22] MEDS: dexAMETHasone 10mg/ml Inj IV SCH (10:15)
[2020-06-22] MEDS: Pantoprazole Inj IVP SCH ×2 (10:16→22:05)
--- NOTE | 2020-06-22 10:37 | NUR ---
RD ASSESSMENT & RECOMMENDATIONS SEE CARE ACTIVITY FOR COMPLETE ASSESSMENT DAILY ESTIMATED NEEDS: Needs based on Pulmonary 53kg 25-35 kcals/kg 1983-0887 total kcals 1-1.5 g protein/kg 53-80 g total protein 25-30 mL/kg 5989-6644 total fluid mLs NUTRITION DIAGNOSIS: Altered nutrition related lab values r/t clinical status as evidenced by elev BG checks (POC 226 230 128), A1C 7.1, elevated Na(153), elev BUN(34), elev Mg(3.1). CURRENT DIET: NPO PO DIET RECOMMENDATIONS: When appropriate oral diet-> Liberalized Regular diet/texture per cream dumper ADDITIONAL RECOMMENDATIONS: 1) With prolonged NPO status d/t Bipap status-> consider TPN 2) Maintain D5 while NPO 3) Calibrated bed scale wts 4) with oral diet add Glucerna 1 tetra TID w/ meals
--- NOTE | 2020-06-22 11:25 | Pulmonology Progress Note ---
Subjective ROS Limited/Unobtainable: Yes Constitutional: Reports: no symptoms HEENT: Repors: no symptoms Respiratory: Reports: shortness of breath Cardiovascular: Reports: no symptoms Gastrointestinal/Abdominal: Reports: no symptoms Allergies: Coded Allergies: No Known Allergies (Unverified , 06/17/20) Objective Last 24 Hour Vital Signs Date Time Temp Pulse Resp B/P (MAP) Pulse Ox O2 Delivery O2 Flow Rate FiO2 06/22/20 10:42 108 30 92 100 06/22/20 08:00 Bi-pap 06/22/20 08:00 98.6 92 30 147/90 (109) 100 06/22/20 08:00 100.0 06/22/20 08:00 102 06/22/20 06:49 105 30 90 100 06/22/20 04:00 99 06/22/20 04:00 98.6 97 24 139/77 (97) 92 06/22/20 04:00 100.0 06/22/20 04:00 Bi-pap 90.0 06/22/20 03:10 110 32 90 100 06/22/20 00:00 Bi-pap 90.0 06/22/20 00:00 99.0 112 24 122/77 (92) 93 06/22/20 00:00 100.0 06/22/20 00:00 110 06/21/20 23:47 113 34 92 100 06/21/20 20:00 Bi-pap 90.0 06/21/20 20:00 125 06/21/20 20:00 100.0 06/21/20 20:00 98.0 123 24 141/98 (112) 90 06/21/20 19:29 126 37 91 100 06/21/20 17:21 133 37 93 100 06/21/20 16:00 90.0 06/21/20 16:00 98.0 120 24 140/92 (108) 90 06/21/20 16:00 Bi-pap 90.0 06/21/20 15:32 120 38 93 90 06/21/20 15:32 122 06/21/20 13:16 93 39 94 90 06/21/20 12:00 Bi-pap 90.0 06/21/20 12:00 90.0 06/21/20 12:00 99.0 110 22 141/82 (101) 93 06/21/20 11:40 114 Intake and Output 06/21/20 06/22/20 19:00 07:00 Intake Total 825 ml 900 ml Output Total 1000 ml 1000 ml Balance -175 ml -100 ml Intake IV Total 825 ml 900 ml Output Urine Total 1000 ml 1000 ml # Voids 4 3 # Bowel Movements 2 1 General Appearance: no acute distress HEENT: atraumatic Respiratory: crackles/rales Cardiovascular: normal rate Abdomen: soft, non tender Laboratory Tests 06/22/20 06:37: POC Whole Blood Glucose 143H 06/22/20 06:49: Arterial Blood pH 7.471H, Arterial Blood Partial Pressure CO2 29.8L, Arterial Blood Partial Pressure O2 58.5L, Arterial Blood HCO3 21.2L, Arterial Blood Ox ygen Saturation 91.2L, Arterial Blood Base Excess -1.2, Amrit Test Positive 06/22/20 09:10: White Blood Count 15.3#H, Red Blood Count 4.80, Hemoglobin 13.8, Hematocrit 44.0, Mean Corpuscular Volume 92, Mean Corpuscular Hemoglobin 28.8, Mean Corpuscular Hemoglobin Concent 31.4L, Red Cell Distribution Width 12.4, Platelet Count 334, Mean Platelet Volume 7.5, Neutrophils (%) (Auto) , Lymphocytes (%) (Auto) , Monocytes (%) (Auto) , Eosinophils (%) (Auto) , Basophils (%) (Auto) , Differential Total Cells Counted 100, Neutrophils % (Manual) 95H, Lymphocytes % (Manual) 4L, Monocytes % (Manual) 1, Eosinophils % (Manual) 0, Basophils % (Manual) 0, Band Neutrophils 0, Platelet Estimate Adequate, Platelet Morphology Normal, Red Blood Cell Morphology Normal, Sodium Level 155H, Potassium Level 4.0, Chloride Level 120H, Carbon Dioxide Level 26, Anion Gap 9, Blood Urea Nitrogen 31H, Creatinine 0.8, Estimat Glomerular Filtration Rate > 60, Glucose Level 150H, Calcium Level 8.5, Total Bilirubin 0.9, Direct Bilirubin 0.2, Aspartate Amino Transf (AST/SGOT) 56H, Alanine Aminotransferase (ALT/SGPT) 48, Alkaline Phosphatase 73, Total Protein 7.4, Albumin 2.5L, Globulin 4.9, Albumin /Globulin Ratio 0.5L Current Medications Medications (Trade) Dose Ordered Sig/Maya Route PRN Reason Start Time Stop Time Status Last Admin Dose Admin Acetaminophen (Tylenol) 500 mg Q4H PRN ORAL Mild Pain (Pain Scale 1-3) 06/18/20 00:15 07/18/20 00:14 Acetaminophen (Tylenol) 500 mg Q4H PRN ORAL Temp >100.5 06/18/20 00:15 07/18/20 00:14 Dexamethasone Sodium Phosphate (Decadron 10mg/ ml Inj) 6 mg DAILY IV 06/18/20 09:45 06/27/20 09:01 06/22/20 10:15 Dextrose 1,000 ml @ 75 mls/hr [id number] IV 06/19/20 13:30 07/19/20 13:29 06/22/20 03:00 Dextrose (Dextrose 50%) 25 ml Q30M PRN IV Hypoglycemia 06/18/20 14:15 09/16/20 14:14 Dextrose (Dextrose 50%) 50 ml Q30M PRN IV Hypoglycemia 06/18/20 14:15 09/16/20 14:14 Docusate Sodium (Colace) 100 mg THREE TIMES A DAY ORAL 06/18/20 13:00 07/18/20 12:59 06/20/20 18:00 Enoxaparin Sodium (Lovenox) 40 mg DAILY SUBQ 06/21/20 09:00 09/19/20 08:59 06/22/20 10:14 Insulin Aspart (NovoLOG) while NPO Q6HR SUBQ 06/18/20 18:00 09/16/20 17:59 06/22/20 06:41 Pantoprazole (Protonix) 40 mg EVERY 12 HOURS IVP 06/18/20 21:00 07/18/20 20:59 06/22/20 10:16 Remdesivir 100 mg/ Sodium Chloride 250 ml @ 250 mls/hr Q24H IV 06/19/20 12:00 06/22/20 12:59 06/21/20 11:48 Assessment/Plan Assessment/Plan 1. COVID-19 pneumonia - Desaturation overnight on NRB + hi flow; ABG worse; will be intubated and transferred to ICU -On Decadron, s/p remdesivir - can observe off abx since WBC improving, oxygen requirement improving, and afebrile; per ID 2. Leukocytosis -Likely secondary to #1 -WBC improving 3. Elevated D-dimer -Venous duplex ultrasound negative for DVT -Was on full dose Lovenox, switched to 40 subcu QD for DVT prophylaxis 4. Renal insufficiency -On IV fluids - nephro following 5. Anemia of chronic disease -Hematology oncology following 6. Sepsis -Status post antibiotics, fluid resuscitation 7. Pneumothorax 06/22/20 - b/l subcutaneous emphysema, pneumomediastinum, probable small left pneumothorax & ? trace right pneumothorax. - will dc BiPAP and order NRB + hi flow oxygen - ABG reviewed; ABG worse overnight The care for this patient was discussed with my supervising physician. Time spent for this case was approximately 31 minutes. Dave Smith Jun 22, 2020 11:25
--- NOTE | 2020-06-22 11:38 | Infectious Diseases Prog Note ---
Assessment/Plan Assessment/Plan A; Sepsis COVID19 pneumonia Hypoxemia Acute kidney injury, resolving Hyperglycemia, DM type 2 P; Continue Remdesivir & Dexamethasone Repeat CXR Subjective ROS Limited/Unobtainable: Yes Constitutional: Denies: fever Respiratory: Reports: shortness of breath, dry cough Allergies: Coded Allergies: No Known Allergies (Unverified , 06/17/20) Objective Last 24 Hour Vital Signs Date Time Temp Pulse Resp B/P (MAP) Pulse Ox O2 Delivery O2 Flow Rate FiO2 06/22/20 10:42 108 30 92 100 06/22/20 08:00 Bi-pap 06/22/20 08:00 98.6 92 30 147/90 (109) 100 06/22/20 08:00 100.0 06/22/20 08:00 102 06/22/20 06:49 105 30 90 100 06/22/20 04:00 99 06/22/20 04:00 98.6 97 24 139/77 (97) 92 06/22/20 04:00 100.0 06/22/20 04:00 Bi-pap 90.0 06/22/20 03:10 110 32 90 100 06/22/20 00:00 Bi-pap 90.0 06/22/20 00:00 99.0 112 24 122/77 (92) 93 06/22/20 00:00 100.0 06/22/20 00:00 110 06/21/20 23:47 113 34 92 100 06/21/20 20:00 Bi-pap 90.0 06/21/20 20:00 125 06/21/20 20:00 100.0 06/21/20 20:00 98.0 123 24 141/98 (112) 90 06/21/20 19:29 126 37 91 100 06/21/20 17:21 133 37 93 100 06/21/20 16:00 90.0 06/21/20 16:00 98.0 120 24 140/92 (108) 90 06/21/20 16:00 Bi-pap 90.0 06/21/20 15:32 120 38 93 90 06/21/20 15:32 122 06/21/20 13:16 93 39 94 90 06/21/20 12:00 Bi-pap 90.0 06/21/20 12:00 90.0 1/31/21 12:00 99.0 110 22 141/82 (101) 93 06/21/20 11:40 114 Height (Feet): 5 Height (Inches): 2.00 Weight (Pounds): 138 HEENT: mucous membranes moist Respiratory/Chest: other - on BIPAP, [id number]% Cardiovascular: tachycardia Abdomen: soft, non tender Extremities: no edema Neurologic/Psychiatric: alert, responsive Laboratory Tests Test 06/22/20 06:37 06/22/20 06:49 06/22/20 09:10 POC Whole Blood Glucose 143 MG/DL (74-106) H Arterial Blood pH 7.471 (7.350-7.450) Arterial Blood Partial Pressure CO2 29.8 mmHg (35.0-45.0) L Arterial Blood Partial Pressure O2 58.5 mmHg (75.0-100.0) L Arterial Blood HCO3 21.2 mmol/L (22.0-26.0) L Arterial Blood Oxygen Saturation 91.2 % (95-100) L Arterial Blood Base Excess -1.2 (-2-2) Amrit Test Positive White Blood Count 15.3 K/UL (4.8-10.8) #H Red Blood Count 4.80 M/UL (4.20-5.40) Hemoglobin 13.8 G/DL (12.0-16.0) Hematocrit 44.0 % (37.0-47.0) Mean Corpuscular Volume 92 FL (80-99) Mean Corpuscular Hemoglobin 28.8 PG (27.0-31.0) Mean Corpuscular Hemoglobin Concent 31.4 G/DL (32.0-36.0) L Red Cell Distribution Width 12.4 % (11.6-14.8) Platelet Count 334 K/UL (150-450) Mean Platelet Volume 7.5 FL (6.5-10.1) Neutrophils (%) (Auto) % (45.0-75.0) Lymphocytes (%) (Auto) % (20.0-45.0) Monocytes (%) (Auto) % (1.0-10.0) Eosinophils (%) (Auto) % (0.0-3.0) Basophils (%) (Auto) % (0.0-2.0) Differential Total Cells Counted 100 Neutrophils % (Manual) 95 % (45-75) H Lymphocytes % (Manual) 4 % (20-45) L Monocytes % (Manual) 1 % (1-10) Eosinophils % (Manual) 0 % (0-3) Basophils % (Manual) 0 % (0-2) Band Neutrophils 0 % (0-8) Platelet Estimate Adequate Platelet Morphology Normal Red Blood Cell Morphology Normal Sodium Level 155 MMOL/L (136-145) H Potassium Level 4.0 MMOL/L (3.5-5.1) Chloride Level 120 MMOL/L (98-107) H Carbon Dioxide Level 26 MMOL/L (21-32) Anion Gap 9 mmol/L (5-15) Blood Urea Nitrogen 31 mg/dL (7-18) H Creatinine 0.8 MG/DL (0.55-1.30) Estimat Glomerular Filtration Rate > 60 mL/min (>60) Glucose Level 150 MG/DL (74-106) H Calcium Level 8.5 MG/DL (8.5-10.1) Total Bilirubin 0.9 MG/DL (0.2-1.0) Direct Bilirubin 0.2 MG/DL (0.0-0.3) Aspartate Amino Transf (AST/SGOT) 56 U/L (15-37) H Alanine Aminotransferase (ALT/SGPT) 48 U/L (12-78) Alkaline Phosphatase 73 U/L (46-116) Total Protein 7.4 G/DL (6.4-8.2) Albumin 2.5 G/DL (3.4-5.0) L Globulin 4.9 g/dL Albumin/Globulin Ratio 0.5 (1.0-2.7) L Current Medications Medications (Trade) Dose Ordered Sig/Maya Route PRN Reason Start Time Stop Time Status Last Admin Dose Admin Acetaminophen (Tylenol) 500 mg Q4H PRN ORAL Mild Pain (Pain Scale 1-3) 06/18/20 00:15 07/18/20 00:14 Acetaminophen (Tylenol) 500 mg Q4H PRN ORAL Temp >100.5 06/18/20 00:15 07/18/20 00:14 Dexamethasone Sodium Phosphate (Decadron 10mg/ ml Inj) 6 mg DAILY IV 06/18/20 09:45 06/27/20 09:01 06/22/20 10:15 Dextrose 1,000 ml @ 75 mls/hr [id number] IV 06/19/20 13:30 07/19/20 13:29 06/22/20 03:00 Dextrose (Dextrose 50%) 25 ml Q30M PRN IV Hypoglycemia 06/18/20 14:15 09/16/20 14:14 Dextrose (Dextrose 50%) 50 ml Q30M PRN IV Hypoglycemia 06/18/20 14:15 09/16/20 14:14 Docusate Sodium (Colace) 100 mg THREE TIMES A DAY ORAL 06/18/20 13:00 07/18/20 12:59 06/20/20 18:00 Enoxaparin Sodium (Lovenox) 40 mg DAILY SUBQ 06/21/20 09:00 09/19/20 08:59 06/22/20 10:14 Insulin Aspart (NovoLOG) while NPO Q6HR SUBQ 06/18/20 18:00 09/16/20 17:59 06/22/20 06:41 Pantoprazole (Protonix) 40 mg EVERY 12 HOURS IVP 06/18/20 21:00 07/18/20 20:59 06/22/20 10:16 Remdesivir 100 mg/ Sodium Chloride 250 ml @ 250 mls/hr Q24H IV 06/19/20 12:00 06/22/20 12:59 06/21/20 11:48 Raji Turpin MD Jun 22, 2020 11:38
--- NOTE | 2020-06-22 11:56 | Diagnostic Imaging Report ---
Indication: Reason For Exam: SOB Technique: One view of the chest Comparison: 06/17/2020 Findings: Interim development of extensive subcutaneous emphysema. There is probably a left pneumothorax, although this is not well-demonstrated. Lucency also outlines the left heart and mediastinal border, probably represents pneumomediastinum as this also appears to extend into the neck. There may be a small peripheral right pneumothorax, although this is doubtful. Bilateral infiltrates are again demonstrated. Impression: Since 06/17/2020, development of bilateral subcutaneous emphysema, pneumomediastinum, probable small left pneumothorax. There is questionably also a trace right pneumothorax. Bilateral infiltrates are unchanged Critical value findings phoned to patient's nurse at the time of interpretation
[2020-06-22 12:00] VITALS: BP 141/90
[2020-06-22] MEDS: Maintenance Dose:Remdesivir 100mg/NS 230ml x 4 Doses IV SCH ×2 (12:01)
--- NOTE | 2020-06-22 12:37 | NUR ---
NURSE NOTES: patient switched to hi flow per dr. Sewell. RT called and patient is now put on high flow 60 L 100% with nonrebreather 100%. the highest saturation was 90%. now, patient is saturating between 87-89%. called Dave Smith (pulmo PA), now aware. ordered ABG for 1330. will continue to monitor.
--- NOTE | 2020-06-22 12:59 | Nephrology Progress Note ---
Assessment/Plan Problem List: (1) LEONARDO (acute kidney injury) (2) Dehydration (3) DMII (diabetes mellitus, type 2) (4) Pneumonia due to COVID-19 virus (5) Hypoxia Assessment 70-year-old female presents with COVID-19 pneumonia and hypoxia On admission has BUN of 77 and creatinine of 1.6. Renal failure most likely prerenal and dehydration with possible underlying chronic kidney disease Patient has elevated inflammatory markers Hypoalbuminemia Electrolyte abnormalities Hyperglycemia Plan June 22: Labs reviewed. Remains on BiPAP which is not changed to high flow oxygen due to pneumothorax found on chest x-ray. Serum sodium 155. Continues on D5W. Electrolytes within normal limits. Check 2D echocardiogram. Coreg for blood pressure and heart rate. June 21: Status quo. On BiPAP. Full code. Serum sodium 153. Continue D5W. Continue to monitor electrolytes. Continue per consultants. June 20: Patient full code. On BiPAP. Labs reviewed. Serum sodium rising. Will increase D5W to 75 cc an hour. Continue to monitor electrolytes. June 19: IV changed to D5W. Monitor blood sugar. Monitor electrolytes. Medication list reviewed. Patient is being treated for COVID-19 pneumonia. Patient is full code. Previously Pulmonary support IV antibiotics Slow hydration Avoid nephrotoxic Monitor renal parameters Per orders Subjective ROS Limited/Unobtainable: Yes Objective Objective Last 24 Hour Vital Signs Date Time Temp Pulse Resp B/P (MAP) Pulse Ox O2 Delivery O2 Flow Rate FiO2 06/22/20 12:30 90 High Flow 60.0 100 06/22/20 12:20 60.0 100 06/22/20 12:00 108 06/22/20 12:00 Bi-pap 06/22/20 12:00 98.1 113 41 141/90 (107) 100 06/22/20 10:42 108 30 92 100 06/22/20 08:00 Bi-pap 06/22/20 08:00 98.6 92 30 147/90 (109) 100 06/22/20 08:00 100.0 06/22/20 08:00 102 06/22/20 06:49 105 30 90 100 06/22/20 04:00 99 06/22/20 04:00 98.6 97 24 139/77 (97) 92 06/22/20 04:00 100.0 06/22/20 04:00 Bi-pap 90.0 06/22/20 03:10 110 32 90 100 06/22/20 00:00 Bi-pap 90.0 06/22/20 00:00 99.0 112 24 122/77 (92) 93 06/22/20 00:00 100.0 06/22/20 00:00 110 06/21/20 23:47 113 34 92 100 06/21/20 20:00 Bi-pap 90.0 06/21/20 20:00 125 06/21/20 20:00 100.0 06/21/20 20:00 98.0 123 24 141/98 (112) 90 06/21/20 19:29 126 37 91 100 06/21/20 17:21 133 37 93 100 06/21/20 16:00 90.0 06/21/20 16:00 98.0 120 24 140/92 (108) 90 06/21/20 16:00 Bi-pap 90.0 06/21/20 15:32 120 38 93 90 06/21/20 15:32 122 06/21/20 13:16 93 39 94 90 Intake and Output 06/21/20 06/22/20 19:00 07:00 Intake Total 825 ml 900 ml Output Total 1000 ml 1000 ml Balance -175 ml -100 ml Intake IV Total 825 ml 900 ml Output Urine Total 1000 ml 1000 ml # Voids 4 3 # Bowel Movements 2 1 Current Medications Medications (Trade) Dose Ordered Sig/Maya Route PRN Reason Start Time Stop Time Status Last Admin Dose Admin Acetaminophen (Tylenol) 500 mg Q4H PRN ORAL Mild Pain (Pain Scale 1-3) 06/18/20 00:15 07/18/20 00:14 Acetaminophen (Tylenol) 500 mg Q4H PRN ORAL Temp >100.5 06/18/20 00:15 07/18/20 00:14 Dexamethasone Sodium Phosphate (Decadron 10mg/ ml Inj) 6 mg DAILY IV 06/18/20 09:45 06/27/20 09:01 06/22/20 10:15 Dextrose 1,000 ml @ 75 mls/hr [id number] IV 06/19/20 13:30 07/19/20 13:29 06/22/20 03:00 Dextrose (Dextrose 50%) 25 ml Q30M PRN IV Hypoglycemia 06/18/20 14:15 09/16/20 14:14 Dextrose (Dextrose 50%) 50 ml Q30M PRN IV Hypoglycemia 06/18/20 14:15 09/16/20 14:14 Docusate Sodium (Colace) 100 mg THREE TIMES A DAY ORAL 06/18/20 13:00 07/18/20 12:59 06/20/20 18:00 Enoxaparin Sodium (Lovenox) 40 mg DAILY SUBQ 06/21/20 09:00 09/19/20 08:59 06/22/20 10:14 Insulin Aspart (NovoLOG) while NPO Q6HR SUBQ 06/18/20 18:00 09/16/20 17:59 06/22/20 12:37 Pantoprazole (Protonix) 40 mg EVERY 12 HOURS IVP 06/18/20 21:00 07/18/20 20:59 06/22/20 10:16 Remdesivir 100 mg/ Sodium Chloride 250 ml @ 250 mls/hr Q24H IV 06/19/20 12:00 06/22/20 12:59 06/22/20 12:01 Laboratory Tests 06/22/20 06:37: POC Whole Blood Glucose 143H 06/22/20 06:49: Arterial Blood pH 7.471H, Arterial Blood Partial Pressure CO2 29.8L, Arterial Blood Partial Pressure O2 58.5L, Arterial Blood HCO3 21.2L, Arterial Blood Oxygen Saturation 91.2L, Arterial Blood Base Excess -1.2, Amrit Test Positive 06/22/20 09:10: White Blood Count 15.3#H, Red Blood Count 4.80, Hemoglobin 13.8, Hematocrit 44.0, Mean Corpuscular Volume 92, Mean Corpuscular Hemoglobin 28.8, Mean Corpuscular Hemoglobin Concent 31.4L, Red Cell Distribution Width 12.4, Platelet Count 334, Mean Platelet Volume 7.5, Neutrophils (%) (Auto) , Lymphocytes (%) (Auto) , Monocytes (%) (Auto) , Eosinophils (%) (Auto) , Basophils (%) (Auto) , Differential Total Cells Counted 100, Neutrophils % (Manual) 95H, Lymphocytes % (Manual) 4L, Monocytes % (Manual) 1, Eosinophils % (Manual) 0, Basophils % (Manual) 0, Band Neutrophils 0, Platelet Estimate Adequate, Platelet Morphology Normal, Red Blood Cell Morphology Normal, Sodium Level 155H, Potassium Level 4.0 , Chloride Level 120H, Carbon Dioxide Level 26, Anion Gap 9, Blood Urea Nitrogen 31H, Creatinine 0.8, Estimat Glomerular Filtration Rate > 60, Glucose Level 150H , Calcium Level 8.5, Total Bilirubin 0.9, Direct Bilirubin 0.2, Aspartate Amino Transf (AST/SGOT) 56H, Alanine Aminotransferase (ALT/SGPT) 48, Alkaline Phosphatase 73, Total Protein 7.4, Albumin 2.5L, Globulin 4.9, Albumin/Globulin Ratio 0.5L 06/22/20 12:09: POC Whole Blood Glucose 141H Height (Feet): 5 Height (Inches): 2.00 Weight (Pounds): 138 EENT: other - Remains on BiPAP Cardiovascular: tachycardia Respiratory/Chest: decreased breath sounds Abdomen: distended Raza De Jesus MD Jun 22, 2020 12:59
[2020-06-22] MEDS ORDERED: Carvedilol 6.25mg Tab ORAL SCH (13:15)
--- NOTE | 2020-06-22 13:21 | NUR ---
CASE MANAGEMENT:REVIEW 06/22/20 SI: COVID PNA. HYPOXIA 98.1 113 41 141/90 SAT 90% ON HI FLOW 60.0L/100% WBC+15.3 NA+155 BUN+31 IS: COREG PO Q12 IV DECADRON QD IVF@75/HR IV PROTONIX Q12 LOVENOX SQ Q12 : STEP DOWN UNIT DCP: FROM HOME PLAN: COMPLETED REMDESIVIR ~ WEAN OXYGENT WHEN ABLE
--- NOTE | 2020-06-22 15:05 | NUR ---
INSURANCE CLINICALS/REVIEW [facility] [phone]
[2020-06-22 16:00] VITALS: BP 139/80
--- NOTE | 2020-06-22 18:45 | NUR ---
NURSE NOTES: Patient's nasal cannula and mask were off. patient's saturation were in the low 70s. called RT and now saturation is on 85. ordered another ABG. will endorse to the upcoming nurse.
--- NOTE | 2020-06-22 18:49 | General Progress Note ---
Subjective ROS Limited/Unobtainable: Yes Allergies: Coded Allergies: No Known Allergies (Unverified , 06/17/20) Objective Last 24 Hour Vital Signs Date Time Temp Pulse Resp B/P (MAP) Pulse Ox O2 Delivery O2 Flow Rate FiO2 06/22/20 16:00 100 06/22/20 15:05 90 High Flow 60.0 100 06/22/20 13:34 102 143/80 06/22/20 12:30 90 High Flow 60.0 100 06/22/20 12:20 60.0 100 06/22/20 12:00 108 06/22/20 12:00 Bi-pap 06/22/20 12:00 98.1 113 41 141/90 (107) 100 06/22/20 10:42 108 30 92 100 06/22/20 08:00 Bi-pap 06/22/20 08:00 98.6 92 30 147/90 (109) 100 06/22/20 08:00 100.0 06/22/20 08:00 102 06/22/20 06:49 105 30 90 100 06/22/20 04:00 99 06/22/20 04:00 98.6 97 24 139/77 (97) 92 06/22/20 04:00 100.0 06/22/20 04:00 Bi-pap 90.0 06/22/20 03:10 110 32 90 100 06/22/20 00:00 Bi-pap 90.0 06/22/20 00:00 99.0 112 24 122/77 (92) 93 06/22/20 00:00 100.0 06/22/20 00:00 110 06/21/20 23:47 113 34 92 100 06/21/20 20:00 Bi-pap 90.0 06/21/20 20:00 125 06/21/20 20:00 100.0 06/21/20 20:00 98.0 123 24 141/98 (112) 90 06/21/20 19:29 126 37 91 100 Intake and Output 06/21/20 06/22/20 19:00 07:00 Intake Total 825 ml 900 ml Output Total 1000 ml 1000 ml Balance -175 ml -100 ml Intake IV Total 825 ml 900 ml Output Urine Total 1000 ml 1000 ml # Voids 4 3 # Bowel Movements 2 1 Laboratory Tests 06/22/20 06:37: POC Whole Blood Glucose 143H 06/22/20 06:49: Arterial Blood pH 7.471H, Arterial Blood Partial Pressure CO2 29.8L, Arterial Blood Partial Pressure O2 58.5L, Arterial Blood HCO3 21.2L, Arterial Blood Oxygen Saturation 91.2L, Arterial Blood Base Excess -1.2, Amrit Test Positive 06/22/20 09:10: White Blood Count 15.3#H, Red Blood Count 4.80, Hemoglobin 13.8, Hematocrit 44.0, Mean Corpuscular Volume 92, Mean Corpuscular Hemoglobin 28.8, Mean Corpuscular Hemoglobin Concent 31.4L, Red Cell Distribution Width 12.4, Platelet Count 334, Mean Platelet Volume 7.5, Neutrophils (%) (Auto) , Lymphocytes (%) (Auto) , Monocytes (%) (Auto) , Eosinophils (%) (Auto) , Basophils (%) (Auto) , Differential Total Cells Counted 100, Neutrophils % (Manual) 95H, Lymphocytes % (Manual) 4L, Monocytes % (Manual) 1, Eosinophils % (Manual) 0, Basophils % (Manual) 0, Band Neutrophils 0, Platelet Estimate Adequate, Platelet Morphology Normal, Red Blood Cell Morphology Normal, Sodium Level 155H, Potassium Level 4.0, Chloride Level 120H, Carbon Dioxide Level 26, Anion Gap 9, Blood Urea Nitrogen 31H, Creatinine 0.8, Estimat Glomerular Filtration Rate > 60, Glucose Level 150H, Calcium Level 8.5, Total Bilirubin 0.9, Direct Bilirubin 0.2, Aspartate Amino Transf (AST/SGOT) 56H, Alanine Aminotransferase (ALT/SGPT) 48, Alkaline Phosphatase 73, Total Protein 7.4, Albumin 2.5L, Globulin 4.9, Albumin/Globulin Ratio 0.5L 06/22/20 12:09: POC Whole Blood Glucose 141H 06/22/20 13:35: Arterial Blood pH 7.522H, Arterial Blood Partial Pressure CO2 25.3L, Arterial Blood Partial Pressure O2 54.9L, Arterial Blood HCO3 20.3L, Arterial Blood Oxygen Saturation 91.2L, Arterial Blood Base Excess -1.0, Amrit Test Positive Height (Feet): 5 Height (Inches): 2.00 Weight (Pounds): 138 Assessment/Plan Problem List: (1) Elevated d-dimer ICD Codes: R79.89 - Other specified abnormal findings of blood chemistry SNOMED: 205403143 (2) Renal insufficiency ICD Codes: N28.9 - Disorder of kidney and ureter, unspecified SNOMED: 337291575, 663141452 (3) PNA (pneumonia) ICD Codes: J18.9 - Pneumonia, unspecified organism SNOMED: 842054346 (4) Dehydration ICD Codes: E86.0 - Dehydration SNOMED: 80710467 (5) LEONARDO (acute kidney injury) ICD Codes: N17.9 - Acute kidney failure, unspecified SNOMED: 6638128, 34201625 (6) Hypoxia ICD Codes: R09.02 - Hypoxemia; J12.82 - Pneumonia due to coronavirus disease 2019 SNOMED: 089455836 (7) Pneumonia due to COVID-19 virus ICD Codes: U07.1 - COVID-19; J12.82 - Pneumonia due to coronavirus disease 2019 SNOMED: 385091156794762251 (8) DMII (diabetes mellitus, type 2) ICD Codes: E11.9 - Type 2 diabetes mellitus without complications SNOMED: 30856238 Status: progressing Assessment/Plan: covid + resp insuff not hypoxic continue supportive care reviewed chart and labs dm check sugar afebrile dehydration Vidya Clayton MD Jun 22, 2020 18:49
--- NOTE | 2020-06-22 19:30 | NUR ---
NURSE NOTES: NURSE HAND-OFF REPORT: Important Events on Shift: changed from bipap to high flow Patient Status: Diet: Pending Orders: Pending Results/Labs: Pending MD notification: Latest Vital Signs: Temperature 98.2 , Pulse 98 , B/P 139 /80 , Respiratory Rate 25 , O2 SAT 85 , Non-Rebreather, O2 Flow Rate 60.0 . Vital Sign Comment: EKG Rhythm: Sinus Tachycardia Rhythm change?: N MD Notified?: N - MD Response: Latest Carney Fall Score: 45 Fall Risk: High Risk Safety Measures: Call light Within Reach, Bed Alarm Zone 1, Side Rails Side Rails x2, Bed position Low and Locked. Fall Precautions: Yellow Socks Yellow Gown Door Sign Patient Fall Education Report given to NORMAN Foster.
--- NOTE | 2020-06-22 19:31 | NUR ---
NURSE NOTES: Report received from NORMAN Mccarthy. Upon assessment pt is seen without mask, hypoxic 79%, and attempting to get out of bed. Oxygen administered with RT at bedside and ensured pt is safe and comfortable. Right AC D5W running 85 mL. 5-lead EKG shows ST at 140. Per Dr. Clayton, Dr. Carreon on case for cardio. Will notify. Bilateral soft wrist restraints observed for attempting to remove medical devices. Bed kept in lowest and locked position. call light within reach. Will monitor.
[2020-06-22 20:00] VITALS: BP 124/75
--- NOTE | 2020-06-22 21:00 | NUR ---
NURSE NOTES: Pt seen attempting to get out of bed despite all needs met.
[2020-06-22] MEDS: Carvedilol 6.25mg Tab ORAL SCH (22:06)
[2020-06-23] VITALS (22 sets, daily range): BP systolic 86–162; BP diastolic 50–113
[2020-06-23] MEDS: NovoLOG Insulin Flexpen SUBQ SCH ×5 (00:11→23:59)
--- NOTE | 2020-06-23 01:30 | NUR ---
NURSE NOTES: Pt desaturating to 80's with High Flow NR. Tachycardic 120's. RT at bedside. Rapid Response initiated. ordered repeat ABG's, STAT chest xray. Will notify
--- NOTE | 2020-06-23 02:29 | Diagnostic Imaging Report ---
EXAM: XR Chest, 1 View CLINICAL HISTORY: PNEUMOTX TECHNIQUE: Frontal view of the chest. COMPARISON: 06/22/2020 IMPRESSION: Small bilateral pneumothoraces are again seen. Pneumomediastinum and diffuse soft tissue emphysema.
--- NOTE | 2020-06-23 03:15 | NUR ---
NURSE NOTES: Chest x-ray read by Dr. Talbot is unchanged compared to previous xray on 06/22/2020. Abg's compensated. EKG shows ST [address] Sewell; orders to monitor further. Pt currently saturating 86% on High Flow 60L 100% and NR 100%. Will monitor closely.
--- NOTE | 2020-06-23 04:30 | NUR ---
NURSE NOTES: Pt observed sitting on side of bed with masks off despite bilateral soft wrist restraints and bed alarm. Saturated 59% on monitor. Assist back into bed with RT at bedside and reoriented pt. Saturation back up to 83%. Will monitor.
[2020-06-23] MEDS ORDERED: LORazepam Inj 2mg/ml 1ml IV PRN (06:45)
[2020-06-23 06:47] LABS: ALANINE AMINOTRANSFERASE 49 U/L (12-78); ALBUMIN 2.2 G/DL (3.4-5.0); ALBUMIN/GLOBULIN RATIO 0.4 (1.0-2.7); ALKALINE PHOSPHATASE 90 U/L (46-116); ANION GAP 14 mmol/L (5-15); ASPARTATE AMINO TRANSFERASE 110 U/L (15-37); BILIRUBIN,TOTAL 1.1 MG/DL (0.2-1.0); BLOOD UREA NITROGEN 31 mg/dL (7-18); CALCIUM 8.4 MG/DL (8.5-10.1); CARBON DIOXIDE 17 MMOL/L (21-32); CHLORIDE 120 MMOL/L (98-107); CREATININE 0.5 MG/DL (0.55-1.30); PHOSPHORUS 2.1 MG/DL (2.5-4.9); POTASSIUM 5.5 MMOL/L (3.5-5.1); SODIUM 151 MMOL/L (136-145)
[2020-06-23 06:50] LABS: BILIRUBIN,DIRECT < 0.1 MG/DL (0.0-0.3)
--- NOTE | 2020-06-23 06:51 | NUR ---
NURSE HAND-OFF REPORT: Important Events on Shift: Rapid Responsive for hypoxia;tacchycardia;possible pneuomothorax Patient Status: Unstable; sustaining ST and 80% O2 Diet: NPO Pending Orders: Pending Results/Labs: Pending MD notification: Latest Vital Signs: Temperature 98.2 , Pulse 106 , B/P 138 /77 , Respiratory Rate 24 , O2 SAT 86 , Non-Rebreather, O2 Flow Rate 60.0 . Vital Sign Comment: EKG Rhythm: Sinus Tachycardia Rhythm change?: N MD Notified?: N - MD Response: Latest Carney Fall Score: 45 Fall Risk: High Risk Safety Measures: Call light Within Reach, Bed Alarm Zone 2, Side Rails Side Rails x3, Bed position Low and Locked. Fall Precautions: Yellow Socks Yellow Gown Door Sign Patient Fall Education Report given to NORMAN Marcus.
--- NOTE | 2020-06-23 06:57 | Hematology/Onc Progress Note ---
Assessment/Plan Assessment/Plan Assessment and recs # Leukocytosis with Pneumonia due to COVID-19 virus -> wbc trend 15-->11-->10 --> ABX as per id --> imaging does show pna --> anticoag recommended --> on remdesivir # Anemia of chronic disease --> hgb 12 # Elevated ddimer due to covid --> duplex legs -> LOVENOX sq # Covid19++ with Hypoxia -> steriods, abx per id # Renal insufficiency -> per renal care # Sepsis due to above --> abx, fluid resuscitation # Dvt ppx lovenox sq Appreciate consultation and mehran RN Subjective Constitutional: Denies: no symptoms, chills, fever, malaise, weakness, other HEENT: Denies: no symptoms, eye pain, blurred vision, tearing, double vision, ear pain, ear discharge, nose pain, nose congestion, throat pain, throat swelling, mouth pain, mouth swelling, other Cardiovascular: Denies: no symptoms, chest pain, edema, irregular heart rate, lightheadedness, palpitations, syncope, other Neurologic/Psychiatric: Denies: no symptoms, anxiety, depressed, emotional problems, headache, numbness, paresthesia, pre-existing deficit, seizure, tingling, tremors, weakness, other Endocrine: Denies: no symptoms, excessive sweating, flushing, intolerance to cold, intolerance to heat, increased hunger, increased thirst, increased urine, unexplained weight gain, unexplained weight loss, other Hematologic/Lymphatic: Denies: no symptoms, anemia, easy bleeding, easy bruising, adenopathy, other Allergies: Coded Allergies: No Known Allergies (Unverified , 06/17/20) Subjective 06/19 sleeping, comfortable, on bipap, meds have been reviewed 06/21 on bipap, labs have been reviewed, no major events 06/22 bipap labs reviewed, meds noted, no bleeding 06/23 bipap labs noted, no bleeding, meds reviewed, mehran woodward Objective Objective Current Medications Medications (Trade) Dose Ordered Sig/Maya Route PRN Reason Start Time Stop Time Status Last Admin Dose Admin Acetaminophen (Tylenol) 500 mg Q4H PRN ORAL Mild Pain (Pain Scale 1-3) 06/18/20 00:15 07/18/20 00:14 Acetaminophen (Tylenol) 500 mg Q4H PRN ORAL Temp >100.5 06/18/20 00:15 07/18/20 00:14 Carvedilol (Coreg) 6.25 mg EVERY 12 HOURS ORAL 06/22/20 21:00 07/22/20 20:59 06/22/20 22:06 Dexamethasone Sodium Phosphate (Decadron 10mg/ ml Inj) 6 mg DAILY IV 06/18/20 09:45 06/27/20 09:01 06/22/20 10:15 Dextrose 1,000 ml @ 75 mls/hr [id number] IV 06/19/20 13:30 07/19/20 13:29 06/23/20 05:38 Dextrose (Dextrose 50%) 25 ml Q30M PRN IV Hypoglycemia 06/18/20 14:15 09/16/20 14:14 Dextrose (Dextrose 50%) 50 ml Q30M PRN IV Hypoglycemia 06/18/20 14:15 09/16/20 14:14 Docusate Sodium (Colace) 100 mg THREE TIMES A DAY ORAL 06/18/20 13:00 07/18/20 12:59 06/22/20 18:40 Enoxaparin Sodium (Lovenox) 40 mg DAILY SUBQ 06/21/20 09:00 09/19/20 08:59 06/22/20 10:14 Insulin Aspart (NovoLOG) while NPO Q6HR SUBQ 06/18/20 18:00 09/16/20 17:59 06/23/20 00:11 Lorazepam (Ativan 2mg/ml 1ml) 1 mg Q8H PRN IV For Anxiety 06/23/20 06:45 06/30/20 06:44 Pantoprazole (Protonix) 40 mg EVERY 12 HOURS IVP 06/18/20 21:00 07/18/20 20:59 06/22/20 22:05 Last 24 Hour Vital Signs Date Time Temp Pulse Resp B/P (MAP) Pulse Ox O2 Delivery O2 Flow Rate FiO2 06/23/20 04:00 60.0 100 06/23/20 04:00 98.2 106 24 138/77 (97) 86 06/23/20 04:00 Bi-pap Bi-pap 06/23/20 04:00 106 06/23/20 03:23 86 High Flow 60.0 100 06/23/20 00:55 83 High Flow 60.0 100 06/23/20 00:55 108 26 83 High Flow 60.0 100 06/23/20 00:00 Bi-pap Bi-pap 06/23/20 00:00 123 06/23/20 00:00 98.2 130 28 162/99 (120) 92 06/23/20 00:00 60.0 100 06/22/20 23:05 90 Bi-Pap 100 06/22/20 22:06 137 124/75 06/22/20 21:15 111 40 85 100 06/22/20 20:07 111 40 89 100 06/22/20 20:00 Bi-pap Bi-pap 06/22/20 20:00 99.0 132 20 124/75 (91) 80 06/22/20 20:00 130 06/22/20 20:00 60.0 100 06/22/20 19:02 85 High Flow 60.0 100 06/22/20 16:00 60.0 100 06/22/20 16:00 100 06/22/20 16:00 98.2 98 25 139/80 (99) 100 06/22/20 16:00 Bi-pap 06/22/20 15:05 90 High Flow 60.0 100 06/22/20 13:34 102 143/80 06/22/20 12:30 90 High Flow 60.0 100 06/22/20 12:20 60.0 100 06/22/20 12:00 108 06/22/20 12:00 Bi-pap 06/22/20 12:00 98.1 113 41 141/90 (107) 100 06/22/20 10:42 108 30 92 100 06/22/20 08:00 Bi-pap 06/22/20 08:00 98.6 92 30 147/90 (109) 100 06/22/20 08:00 100.0 06/22/20 08:00 102 06/22/20 06:49 105 30 90 100 06/22/20 04:00 99 06/22/20 04:00 98.6 97 24 139/77 (97) 92 06/22/20 04:00 100.0 06/22/20 04:00 Bi-pap 90.0 06/22/20 03:10 110 32 90 100 06/22/20 00:00 Bi-pap 90.0 06/22/20 00:00 99.0 112 24 122/77 (92) 93 06/22/20 00:00 100.0 06/22/20 00:00 110 06/21/20 23:47 113 34 92 100 06/21/20 20:00 Bi-pap 90.0 06/21/20 20:00 125 06/21/20 20:00 100.0 06/21/20 20:00 98.0 123 24 141/98 (112) 90 06/21/20 19:29 126 37 91 100 06/21/20 17:21 133 37 93 100 06/21/20 16:00 90.0 06/21/20 16:00 98.0 120 24 140/92 (108) 90 06/21/20 16:00 Bi-pap 90.0 06/21/20 15:32 120 38 93 90 06/21/20 15:32 122 06/21/20 13:16 93 39 94 90 06/21/20 12:00 Bi-pap 90.0 06/21/20 12:00 90.0 06/21/20 12:00 99.0 110 22 141/82 (101) 93 06/21/20 11:40 114 06/21/20 10:56 89 36 93 90 06/21/20 09:10 87 36 93 90 06/21/20 08:00 Bi-pap 90.0 06/21/20 08:00 99.0 95 35 152/68 (96) 94 06/21/20 08:00 90.0 06/21/20 07:47 95 06/21/20 07:32 89 27 96 90 Intake and Output 06/22/20 06/23/20 19:00 07:00 Intake Total 750 ml 777.5 ml Balance 750 ml 777.5 ml Intake IV Total 750 ml 777.5 ml # Voids 4 Labs Test 06/20/20 12:00 06/21/20 04:10 06/22/20 06:37 06/22/20 06:49 White Blood Count 10.0 K/UL (4.8-10.8) Red Blood Count 4.50 M/UL (4.20-5.40) Hemoglobin 13.4 G/DL (12.0-16.0) Hematocrit 40.9 % (37.0-47.0) Mean Corpuscular Volume 91 FL (80-99) Mean Corpuscular Hemoglobin 29.8 PG (27.0-31.0) Mean Corpuscular Hemoglobin Concent 32.7 G/DL (32.0-36.0) Red Cell Distribution Width 11.8 % (11.6-14.8) Platelet Count 319 K/UL (150-450) Mean Platelet Volume 7.4 FL (6.5-10.1) Neutrophils (%) (Auto) % (45.0-75.0) Lymphocytes (%) (Auto) % (20.0-45.0) Monocytes (%) (Auto) % (1.0-10.0) Eosinophils (%) (Auto) % (0.0-3.0) Basophils (%) (Auto) % (0.0-2.0) Differential Total Cells Counted 100 Neutrophils % (Manual) 86 % (45-75) Lymphocytes % (Manual) 9 % (20-45) Monocytes % (Manual) 5 % (1-10) Eosinophils % (Manual) 0 % (0-3) Basophils % (Manual) 0 % (0-2) Band Neutrophils 0 % (0-8) Platelet Estimate Adequate Platelet Morphology Normal Red Blood Cell Morphology Normal Sodium Level 153 MMOL/L (136-145) Potassium Level 3.8 MMOL/L (3.5-5.1) Chloride Level 118 MMOL/L (98-107) Carbon Dioxide Level 26 MMOL/L (21-32) Anion Gap 9 mmol/L (5-15) Blood Urea Nitrogen 34 mg/dL (7-18) Creatinine 0.8 MG/DL (0.55-1.30) Estimat Glomerular Filtration Rate > 60 mL/min (>60) Glucose Level 117 MG/DL (74-106) Uric Acid 5.7 MG/DL (2.6-7.2) Calcium Level 8.5 MG/DL (8.5-10.1) Phosphorus Level 3.0 MG/DL (2.5-4.9) Magnesium Level 3.1 MG/DL (1.8-2.4) Total Bilirubin 0.8 MG/DL (0.2-1.0) Direct Bilirubin 0.2 MG/DL (0.0-0.3) Aspartate Amino Transf (AST/SGOT) 50 U/L (15-37) Alanine Aminotransferase (ALT/SGPT) 48 U/L (12-78) Alkaline Phosphatase 69 U/L (46-116) C-Reactive Protein, Quantitative 3.4 mg/dL (0.00-0.90) Pro-B-Type Natriuretic Peptide 140 pg/mL (0-125) Total Protein 7.2 G/DL (6.4-8.2) Albumin 2.5 G/DL (3.4-5.0) Globulin 4.7 g/dL Albumin/Globulin Ratio 0.5 (1.0-2.7) POC Whole Blood Glucose 143 MG/DL (74-106) Arterial Blood pH 7.471 (7.350-7.450) Arterial Blood Partial Pressure CO2 29.8 mmHg (35.0-45.0) Arterial Blood Partial Pressure O2 58.5 mmHg (75.0-100.0) Arterial Blood HCO3 21.2 mmol/L (22.0-26.0) Arterial Blood Oxygen Saturation 91.2 % (95-100) Arterial Blood Base Excess -1.2 (-2-2) Amrit Test Positive Test 06/22/20 09:10 06/22/20 12:09 06/22/20 13:35 06/22/20 19:09 White Blood Count 15.3 K/UL (4.8-10.8) Red Blood Count 4.80 M/UL (4.20-5.40) Hemoglobin 13.8 G/DL (12.0-16.0) Hematocrit 44.0 % (37.0-47.0) Mean Corpuscular Volume 92 FL (80-99) Mean Corpuscular Hemoglobin 28.8 PG (27.0-31.0) Mean Corpuscular Hemoglobin Concent 31.4 G/DL (32.0-36.0) Red Cell Distribution Width 12.4 % (11.6-14.8) Platelet Count 334 K/UL (150-450) Mean Platelet Volume 7.5 FL (6.5-10.1) Neutrophils (%) (Auto) % (45.0-75.0) Lymphocytes (%) (Auto) % (20.0-45.0) Monocytes (%) (Auto) % (1.0-10.0) Eosinophils (%) (Auto) % (0.0-3.0) Basophils (%) (Auto) % (0.0-2.0) Differential Total Cells Counted 100 Neutrophils % (Manual) 95 % (45-75) Lymphocytes % (Manual) 4 % (20-45) Monocytes % (Manual) 1 % (1-10) Eosinophils % (Manual) 0 % (0-3) Basophils % (Manual) 0 % (0-2) Band Neutrophils 0 % (0-8) Platelet Estimate Adequate Platelet Morphology Normal Red Blood Cell Morphology Normal Sodium Level 155 MMOL/L (136-145) Potassium Level 4.0 MMOL/L (3.5-5.1) Chloride Level 120 MMOL/L (98-107) Carbon Dioxide Level 26 MMOL/L (21-32) Anion Gap 9 mmol/L (5-15) Blood Urea Nitrogen 31 mg/dL (7-18) Creatinine 0.8 MG/DL (0.55-1.30) Estimat Glomerular Filtration Rate > 60 mL/min (>60) Glucose Level 150 MG/DL (74-106) Calcium Level 8.5 MG/DL (8.5-10.1) Total Bilirubin 0.9 MG/DL (0.2-1.0) Direct Bilirubin 0.2 MG/DL (0.0-0.3) Aspartate Amino Transf (AST/SGOT) 56 U/L (15-37) Alanine Aminotransferase (ALT/SGPT) 48 U/L (12-78) Alkaline Phosphatase 73 U/L (46-116) Total Protein 7.4 G/DL (6.4-8.2) Albumin 2.5 G/DL (3.4-5.0) Globulin 4.9 g/dL Albumin/Globulin Ratio 0.5 (1.0-2.7) POC Whole Blood Glucose 141 MG/DL (74-106) Arterial Blood pH 7.522 (7.350-7.450) 7.369 (7.350-7.450) Arterial Blood Partial Pressure CO2 25.3 mmHg (35.0-45.0) 29.3 mmHg (35.0-45.0) Arterial Blood Partial Pressure O2 54.9 mmHg (75.0-100.0) 47.7 mmHg (75.0-100.0) Arterial Blood HCO3 20.3 mmol/L (22.0-26.0) 16.5 mmol/L (22.0-26.0) Arterial Blood Oxygen Saturation 91.2 % (95-100) 79.3 % (95-100) Arterial Blood Base Excess -1.0 (-2-2) -7.3 (-2-2) Amrit Test Positive Positive Test 06/23/20 01:25 06/23/20 01:29 06/23/20 03:20 06/23/20 05:40 Arterial Blood pH 7.488 (7.350-7.450) Arterial Blood Partial Pressure CO2 30.6 mmHg (35.0-45.0) Arterial Blood Partial Pressure O2 40.8 mmHg (75.0-100.0) Arterial Blood HCO3 22.7 mmol/L (22.0-26.0) Arterial Blood Oxygen Saturation 78.4 % (95-100) Arterial Blood Base Excess 0.3 (-2-2) Amrit Test Positive POC Whole Blood Glucose 144 MG/DL (74-106) 107 MG/DL (74-106) Sodium Level 151 MMOL/L (136-145) Potassium Level 5.5 MMOL/L (3.5-5.1) Chloride Level 120 MMOL/L (98-107) Carbon Dioxide Level 17 MMOL/L (21-32) Anion Gap 14 mmol/L (5-15) Blood Urea Nitrogen 31 mg/dL (7-18) Creatinine 0.5 MG/DL (0.55-1.30) Estimat Glomerular Filtration Rate > 60 mL/min (>60) Glucose Level 85 MG/DL (74-106) Calcium Level 8.4 MG/DL (8.5-10.1) Phosphorus Level 2.1 MG/DL (2.5-4.9) Magnesium Level 2.5 MG/DL (1.8-2.4) Total Bilirubin 1.1 MG/DL (0.2-1.0) Direct Bilirubin < 0.1 MG/DL (0.0-0.3) Aspartate Amino Transf (AST/SGOT) 110 U/L (15-37) Alanine Aminotransferase (ALT/SGPT) 49 U/L (12-78) Alkaline Phosphatase 90 U/L (46-116) Total Protein 7.3 G/DL (6.4-8.2) Albumin 2.2 G/DL (3.4-5.0) Globulin 5.1 g/dL Albumin/Globulin Ratio 0.4 (1.0-2.7) Height (Feet): 5 Height (Inches): 2.00 Weight (Pounds): 138 Objective Physical Exam Vitals: reviewed, abnormal - Interpreted as low by me General: GCS 15 - Sometimes slightly confused, non-toxic, mild distress Head: normocephalic, moist mucus membranes Neck: supple Respiratory: no retraction, no accessory muscle use, respiratory distress - Minimal with tachypnea, crackles Cardiovascular: regular rate, rhythm, no edema Gastrointestinal: normal inspection, non tender, soft Genitourinary: no CVA tenderness Musculoskeletal: back normal Neurologic: alert, oriented x3, grossly normal Psychiatric: mood/affect normal - sometimes confused Skin: no rash, warm/dry Jj Swann MD Jun 23, 2020 06:57
--- NOTE | 2020-06-23 07:25 | NUR ---
NURSE NOTES: Pt rcvd awake, alert agitated and confused. pt tachypneic, SOB with labored respirations. Pt on 60L Hi Flow and 100% NRB mask. resp rate 40. Lungs yusuf diminished with crackles bilat. pt with SQ air across the entire upper chestwall. Pt in notable resp distress. IV started to left hand x 1 attempt and Ativan 1mg given IVP. Charge nurse notified of pt's status and my concerns related to pt's condition. Rapid response called. ABG done. Pt placed on transport monitor. pt in ST rate of 127. Lab drawn and sent to lab. Pt incontinent of urine. pt cleaned up and helms catheter placed. Obtained approx. 200ml of clear yellow urine. Pt prepared for transport to ICU. At 0830 pt transported to ICU via bed. 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 No clothing found in pt's room. Report given to Mary Shin RN in ICU.
--- NOTE | 2020-06-23 07:44 | NUR ---
RESPIRATORY NOTE: ABG drawn at this time during Rapid Response. Results reported to Kat AUSTIN. PT to be transferred to ICU. Will continue to monitor.
[2020-06-23 08:20] LABS: HEMATOCRIT 44.1 % (37.0-47.0); HEMOGLOBIN 13.9 G/DL (12.0-16.0); MEAN CORPUSCULAR VOLUME 91 FL (80-99); PLATELET COUNT 350 K/UL (150-450); RED BLOOD COUNT 4.83 M/UL (4.20-5.40); RED CELL DISTRIBUTION WIDTH 12.3 % (11.6-14.8)
[2020-06-23 08:22] LABS: WHITE BLOOD COUNT 22.4 K/UL (4.8-10.8)
[2020-06-23 08:28] LABS: ANION GAP 12 mmol/L (5-15); BLOOD UREA NITROGEN 31 mg/dL (7-18); CALCIUM 8.5 MG/DL (8.5-10.1); CARBON DIOXIDE 24 MMOL/L (21-32); CHLORIDE 122 MMOL/L (98-107); CREATININE 0.9 MG/DL (0.55-1.30); POTASSIUM 3.8 MMOL/L (3.5-5.1); SODIUM 157 MMOL/L (136-145)
--- NOTE | 2020-06-23 08:35 | NUR ---
NURSE HAND-OFF REPORT: Latest Vital Signs: Temperature 98.2 , Pulse 127 , B/P 138 /77 , Respiratory Rate 42 , O2 SAT 77 , Non-Rebreather, O2 Flow Rate 60.0 . Vital Sign Comment: EKG Rhythm: Sinus Tachycardia Rhythm change?: N MD Notified?: N - MD Response: Latest Carney Fall Score: 45 Fall Risk: High Risk Safety Measures: Call light Within Reach, Bed Alarm Zone 2, Side Rails Side Rails x3, Bed position Low and Locked. Fall Precautions: Yellow Socks Yellow Gown Door Sign Patient Fall Education Report given to Mary Shin RN.
--- NOTE | 2020-06-23 08:36 | NUR ---
NURSE NOTES: Report received from NORMAN Baires. Patient arrived in the unit. Belonging list checked. White pants missing. Other belongings are with the patient. Patient is confused and agitated and unable to follow commands. Continued bilateral soft wrist restraints. Tachy 120's on telemetry monitor. Patient is on high flow 60L, 100%. O2 sat 80's. Crepitus heard and palpitated on bilateral upper chest. Dr Zapata from ER is aware. Kept NPO as ordered. Martin in place draining to gravity. Bed in lowest position. Side rail up x3. Will resume plan of care.
--- NOTE | 2020-06-23 08:55 | NUR ---
RESPIRATORY NOTE: Rapid Response called at 0745. ABG drawn and reported to Kat AUSTIN. PT was transferred to ICU at 0830 and was intubated and placed on mechanical ventilation on AC/VC 12,500,100%,+5. Alarms are on and audible. PT is currently sedated and soft restraints are in place. Saturation improved post intubation. Informed by nurse that PT has bilateral Pneumothorax and that chest tubes are to be inserted. Will continue to closely monitor.
--- NOTE | 2020-06-23 08:55 | NUR ---
NURSE NOTES: Dr Zapata from ER came and intubated patient at 0855. STAT CXR ordered to check placement. Order for post intubation ABG was entered at 1000 as per protocol. Will continue to monitor.
[2020-06-23] MEDS: Enoxaparin 40mg Inj SUBQ SCH ×2 (09:00→10:35)
[2020-06-23] MEDS: Carvedilol 6.25mg Tab ORAL SCH ×2 (09:00→20:53)
[2020-06-23] MEDS: Pantoprazole Inj IVP SCH ×2 (09:00→20:52)
[2020-06-23] MEDS: Docusate 100mg cap ORAL SCH ×3 (09:00→17:41)
--- NOTE | 2020-06-23 09:00 | NUR ---
NURSE NOTES: Dr Carreon is aware of elevated Troponin level. Order for another Troponin draw received and noted. Will out the order. Addendum: 06/23/20 at 1339 by HARISH ELIZONDO RN RN NURSE NOTES: Dr Carreon is aware of elevated Troponin level. Order for another Troponin draw received and noted. Will out the order. Levenox held for possible chest tube insertion today.
--- NOTE | 2020-06-23 09:41 | Cardiac Electrophysiology PN ---
Subjective Subjective [id number] Objective Last 24 Hour Vital Signs Date Time Temp Pulse Resp B/P (MAP) Pulse Ox O2 Delivery O2 Flow Rate FiO2 06/23/20 08:00 127 42 77 06/23/20 07:30 125 40 81 06/23/20 04:00 60.0 100 06/23/20 04:00 98.2 106 24 138/77 (97) 86 06/23/20 04:00 Bi-pap Bi-pap 06/23/20 04:00 106 06/23/20 03:23 86 High Flow 60.0 100 06/23/20 00:55 83 High Flow 60.0 100 06/23/20 00:55 108 26 83 High Flow 60.0 100 06/23/20 00:00 Bi-pap Bi-pap 06/23/20 00:00 123 06/23/20 00:00 98.2 130 28 162/99 (120) 92 06/23/20 00:00 60.0 100 06/22/20 23:05 90 Bi-Pap 100 06/22/20 22:06 137 124/75 06/22/20 21:15 111 40 85 100 06/22/20 20:07 111 40 89 100 06/22/20 20:00 Bi-pap Bi-pap 06/22/20 20:00 99.0 132 20 124/75 (91) 80 06/22/20 20:00 130 06/22/20 20:00 60.0 100 06/22/20 19:02 85 High Flow 60.0 100 06/22/20 16:00 60.0 100 06/22/20 16:00 100 06/22/20 16:00 98.2 98 25 139/80 (99) 100 06/22/20 16:00 Bi-pap 06/22/20 15:05 90 High Flow 60.0 100 06/22/20 13:34 102 143/80 06/22/20 12:30 90 High Flow 60.0 100 06/22/20 12:20 60.0 100 06/22/20 12:00 108 06/22/20 12:00 Bi-pap 06/22/20 12:00 98.1 113 41 141/90 (107) 100 06/22/20 10:42 108 30 92 100 Intake and Output 06/22/20 06/23/20 19:00 07:00 Intake Total 750 ml 777.5 ml Balance 750 ml 777.5 ml Intake IV Total 750 ml 777.5 ml # Voids 4 Laboratory Tests Test 06/22/20 12:09 06/22/20 13:35 06/22/20 19:09 06/23/20 01:25 POC Whole Blood Glucose 141 MG/DL (74-106) H Arterial Blood pH 7.522 (7.350-7.450) 7.369 (7.350-7.450) 7.488 (7.350-7.450) Arterial Blood Partial Pressure CO2 25.3 mmHg (35.0-45.0) L 29.3 mmHg (35.0-45.0) L 30.6 mmHg (35.0-45.0) L Arterial Blood Partial Pressure O2 54.9 mmHg (75.0-100.0) L 47.7 mmHg (75.0-100.0) 40.8 mmHg (75.0-100.0) Arterial Blood HCO3 20.3 mmol/L (22.0-26.0) L 16.5 mmol/L (22.0-26.0) *L 22.7 mmol/L (22.0-26.0) Arterial Blood Oxygen Saturation 91.2 % (95-100) L 79.3 % (95-100) *L 78.4 % (95-100) *L Arterial Blood Base Excess -1.0 (-2-2) -7.3 (-2-2) L 0.3 (-2-2) Amrit Test Positive Positive Positive Test 06/23/20 01:29 06/23/20 03:20 06/23/20 05:40 06/23/20 08:00 POC Whole Blood Glucose 144 MG/DL (74-106) H 107 MG/DL (74-106) H Sodium Level 151 MMOL/L (136-145) H 157 MMOL/L (136-145) H Potassium Level 5.5 MMOL/L (3.5-5.1) H 3.8 MMOL/L (3.5-5.1) Chloride Level 120 MMOL/L (98-107) H 122 MMOL/L (98-107) H Carbon Dioxide Level 17 MMOL/L (21-32) L 24 MMOL/L (21-32) Anion Gap 14 mmol/L (5-15) 12 mmol/L (5-15) Blood Urea Nitrogen 31 mg/dL (7-18) H 31 mg/dL (7-18) H Creatinine 0.5 MG/DL (0.55-1.30) L 0.9 MG/DL (0.55-1.30) # Estimat Glomerular Filtration Rate > 60 mL/min (>60) > 60 mL/min (>60) Glucose Level 85 MG/DL (74-106) 105 MG/DL (74-106) Calcium Level 8.4 MG/DL (8.5-10.1) L 8.5 MG/DL (8.5-10.1) Phosphorus Level 2.1 MG/DL (2.5-4.9) L Magnesium Level 2.5 MG/DL (1.8-2.4) H Total Bilirubin 1.1 MG/DL (0.2-1.0) H Direct Bilirubin < 0.1 MG/DL (0.0-0.3) Aspartate Amino Transf (AST/SGOT) 110 U/L (15-37) H Alanine Aminotransferase (ALT/SGPT) 49 U/L (12-78) Alkaline Phosphatase 90 U/L (46-116) Total Protein 7.3 G/DL (6.4-8.2) Albumin 2.2 G/DL (3.4-5.0) L Globulin 5.1 g/dL Albumin/Globulin Ratio 0.4 (1.0-2.7) L White Blood Count 22.4 K/UL (4.8-10.8) *H Red Blood Count 4.83 M/UL (4.20-5.40) Hemoglobin 13.9 G/DL (12.0-16.0) Hematocrit 44.1 % (37.0-47.0) Mean Corpuscular Volume 91 FL (80-99) Mean Corpuscular Hemoglobin 28.9 PG (27.0-31.0) Mean Corpuscular Hemoglobin Concent 31.6 G/DL (32.0-36.0) L Red Cell Distribution Width 12.3 % (11.6-14.8) Platelet Count 350 K/UL (150-450) Mean Platelet Volume 7.4 FL (6.5-10.1) Neutrophils (%) (Auto) % (45.0-75.0) Lymphocytes (%) (Auto) % (20.0-45.0) Monocytes (%) (Auto) % (1.0-10.0) Eosinophils (%) (Auto) % (0.0-3.0) Basophils (%) (Auto) % (0.0-2.0) Neutrophils % (Manual) Pending Lymphocytes % (Manual) Pending Platelet Estimate Pending Platelet Morphology Pending Lactic Acid Level 2.70 mmol/L (0.4-2.0) H Troponin I 0.225 ng/mL (0.000-0.056) Pro-B-Type Natriuretic Peptide 655 pg/mL (0-125) H Maxwell Carreon MD Jun 23, 2020 09:41
--- NOTE | 2020-06-23 10:00 | NUR ---
NURSE NOTES: Will hold oral meds until KUB confirms placement for OGT.
[2020-06-23] MEDS: dexAMETHasone 10mg/ml Inj IV SCH (10:34)
--- NOTE | 2020-06-23 10:34 | NUR ---
RADIOLOGY DEPT., CHEST AND ABDOMEN X-RAYS DONE FOR ORAL GASTRIC AND E/TT TUBE PLCMTS.-P.DYE
--- NOTE | 2020-06-23 10:40 | NUR ---
RESPIRATORY NOTE: PEEP changed from +5 to +[address] Sewell's verbal order. Doug AUSTIN. aware. Will continue to monitor.
--- NOTE | 2020-06-23 10:44 | Nephrology Progress Note ---
Assessment/Plan Problem List: (1) LEONARDO (acute kidney injury) (2) Dehydration (3) DMII (diabetes mellitus, type 2) (4) Pneumonia due to COVID-19 virus (5) Hypoxia Assessment 70-year-old female presents with COVID-19 pneumonia and hypoxia On admission has BUN of 77 and creatinine of 1.6. Renal failure most likely prerenal and dehydration with possible underlying chronic kidney disease Patient has elevated inflammatory markers Hypoalbuminemia Electrolyte abnormalities Hyperglycemia Plan June 23: Patient in ICU. Intubated. Due for insertion of a chest tube. Has pneumothorax. Renal parameters are stable. Serum sodium rising. Will adjust IV fluid. Continue per consultants. Patient full code. Prognosis poor. June 22: Labs reviewed. Remains on BiPAP which is not changed to high flow oxygen due to pneumothorax found on chest x-ray. Serum sodium 155. Continues on D5W. Electrolytes within normal limits. Check 2D echocardiogram. Coreg for blood pressure and heart rate. June 21: Status quo. On BiPAP. Full code. Serum sodium 153. Continue D5W. Continue to monitor electrolytes. Continue per consultants. June 20: Patient full code. On BiPAP. Labs reviewed. Serum sodium rising. Will increase D5W to 75 cc an hour. Continue to monitor electrolytes. June 19: IV changed to D5W. Monitor blood sugar. Monitor electrolytes. Medication list reviewed. Patient is being treated for COVID-19 pneumonia. Patient is full code. Previously Pulmonary support IV antibiotics Slow hydration Avoid nephrotoxic Monitor renal parameters Per orders Subjective ROS Limited/Unobtainable: Yes Objective Objective Last 24 Hour Vital Signs Date Time Temp Pulse Resp B/P (MAP) Pulse Ox O2 Delivery O2 Flow Rate FiO2 06/23/20 09:00 100.5 135 18 118/80 (93) 92 06/23/20 08:55 100.0 06/23/20 08:30 106 24 138/77 (97) 86 06/23/20 08:00 127 42 77 06/23/20 07:30 125 40 81 06/23/20 04:00 60.0 100 06/23/20 04:00 98.2 106 24 138/77 (97) 86 06/23/20 04:00 Bi-pap Bi-pap 06/23/20 04:00 106 06/23/20 03:23 86 High Flow 60.0 100 06/23/20 00:55 83 High Flow 60.0 100 06/23/20 00:55 108 26 83 High Flow 60.0 100 06/23/20 00:00 Bi-pap Bi-pap 06/23/20 00:00 123 06/23/20 00:00 98.2 130 28 162/99 (120) 92 06/23/20 00:00 60.0 100 06/22/20 23:05 90 Bi-Pap 100 06/22/20 22:06 137 124/75 06/22/20 21:15 111 40 85 100 06/22/20 20:07 111 40 89 100 06/22/20 20:00 Bi-pap Bi-pap 06/22/20 20:00 99.0 132 20 124/75 (91) 80 06/22/20 20:00 130 06/22/20 20:00 60.0 100 06/22/20 19:02 85 High Flow 60.0 100 06/22/20 16:00 60.0 100 06/22/20 16:00 100 06/22/20 16:00 98.2 98 25 139/80 (99) 100 06/22/20 16:00 Bi-pap 06/22/20 15:05 90 High Flow 60.0 100 06/22/20 13:34 102 143/80 06/22/20 12:30 90 High Flow 60.0 100 06/22/20 12:20 60.0 100 06/22/20 12:00 108 06/22/20 12:00 Bi-pap 06/22/20 12:00 98.1 113 41 141/90 (107) 100 Intake and Output 06/22/20 06/23/20 19:00 07:00 Intake Total 750 ml 777.5 ml Balance 750 ml 777.5 ml Intake IV Total 750 ml 777.5 ml # Voids 4 Current Medications Medications (Trade) Dose Ordered Sig/Maya Route PRN Reason Start Time Stop Time Status Last Admin Dose Admin Acetaminophen (Tylenol) 500 mg Q4H PRN ORAL Mild Pain (Pain Scale 1-3) 06/18/20 00:15 07/18/20 00:14 Acetaminophen (Tylenol) 500 mg Q4H PRN ORAL Temp >100.5 06/18/20 00:15 07/18/20 00:14 Carvedilol (Coreg) 6.25 mg EVERY 12 HOURS ORAL 06/22/20 21:00 07/22/20 20:59 06/22/20 22:06 Dexamethasone Sodium Phosphate (Decadron 10mg/ ml Inj) 6 mg DAILY IV 06/18/20 09:45 06/27/20 09:01 06/23/20 10:34 Dextrose 1,000 ml @ 75 mls/hr [id number] IV 06/19/20 13:30 07/19/20 13:29 06/23/20 05:38 Dextrose (Dextrose 50%) 25 ml Q30M PRN IV Hypoglycemia 06/18/20 14:15 09/16/20 14:14 Dextrose (Dextrose 50%) 50 ml Q30M PRN IV Hypoglycemia 06/18/20 14:15 09/16/20 14:14 Docusate Sodium (Colace) 100 mg THREE TIMES A DAY ORAL 06/18/20 13:00 07/18/20 12:59 06/22/20 18:40 Enoxaparin Sodium (Lovenox) 40 mg DAILY SUBQ 06/21/20 09:00 09/19/20 08:59 06/23/20 10:35 Insulin Aspart (NovoLOG) while NPO Q6HR SUBQ 06/18/20 18:00 09/16/20 17:59 06/23/20 00:11 Lorazepam (Ativan 2mg/ml 1ml) 1 mg Q8H PRN IV For Anxiety 06/23/20 06:45 06/30/20 06:44 06/23/20 07:30 Pantoprazole (Protonix) 40 mg EVERY 12 HOURS IVP 06/18/20 21:00 07/18/20 20:59 06/23/20 09:00 Laboratory Tests 06/22/20 12:09: POC Whole Blood Glucose 141H 06/22/20 13:35: Arterial Blood pH 7.522H, Arterial Blood Partial Pressure CO2 25.3L, Arterial Blood Partial Pressure O2 54.9L, Arterial Blood HCO3 20.3L, Arterial Blood Oxygen Saturation 91.2L, Arterial Blood Base Excess -1.0, Amrit Test Positive 06/22/20 19:09: Arterial Blood pH 7.369, Arterial Blood Partial Pressure CO2 29.3L, Arterial Blood Partial Pressure O2 47.7*L, Arterial Blood HCO3 16.5*L, Arterial Blood Oxygen Saturation 79.3*L, Arterial Blood Base Excess -7.3L, Amrit Test Positive 06/23/20 01:25: Arterial Blood pH 7.488H, Arterial Blood Partial Pressure CO2 30.6L, Arterial Blood Partial Pressure O2 40.8*L, Arterial Blood HCO3 22.7, Arterial Blood Oxygen Saturation 78.4*L, Arterial Blood Base Excess 0.3, Amrit Test Positive 06/23/20 01:29: POC Whole Blood Glucose 144H 06/23/20 03:20: Sodium Level 151H, Potassium Level 5.5H, Chloride Level 120H, Carbon Dioxide Level 17L, Anion Gap 14, Blood Urea Nitrogen 31H, Creatinine 0.5L, Estimat Glomerular Filtration Rate > 60, Glucose Level 85, Calcium Level 8.4L, Phosphorus Level 2.1L, Magnesium Level 2.5H, Total Bilirubin 1.1H, Direct Bilirubin < 0.1, Aspartate Amino Transf (AST/SGOT) 110H, Alanine Aminotransferase (ALT/SGPT) 49, Alkaline Phosphatase 90, Total Protein 7.3, Albumin 2.2L, Globulin 5.1, Albumin/Globulin Ratio 0.4L 06/23/20 05:40: POC Whole Blood Glucose 107H 06/23/20 07:44: Arterial Blood pH 7.454H, Arterial Blood Partial Pressure CO2 32.4L, Arterial Blood Partial Pressure O2 40.9*L, Arterial Blood HCO3 22.2, Arterial Blood Oxygen Saturation 76.9*L, Arterial Blood Base Excess -0.8, Amrit Test Positive 06/23/20 08:00: White Blood Count 22.4*H, Red Blood Count 4.83, Hemoglobin 13.9, Hematocrit 44.1, Mean Corpuscular Volume 91, Mean Corpuscular Hemoglobin 28.9, Mean Corpuscular Hemoglobin Concent 31.6L, Red Cell Distribution Width 12.3, Platelet Count 350, Mean Platelet Volume 7.4, Neutrophils (%) (Auto) , Lymphocytes (%) (Auto) , Monocytes (%) (Auto) , Eosinophils (%) (Auto) , Basophils (%) (Auto) , Differential Total Cells Counted 100, Neutrophils % (Manual) 97H, Lymphocytes % (Manual) 2L, Monocytes % (Manual) 1, Eosinophils % (Manual) 0, Basophils % (Manual) 0, Band Neutrophils 0, Platelet Estimate Adequate, Platelet Morphology Normal, Red Blood Cell Morphology Normal, Sodium Level 157H, Potassium Level 3.8, Chloride Level 122H, Carbon Dioxide Level 24, Anion Gap 12, Blood Urea Nitrogen 31H, Creatinine 0.9#, Estimat Glomerular Filtration Rate > 60, Glucose Level 105, Lactic Acid Level 2.70H, Calcium Level 8.5, Troponin I 0.225H, Pro-B-Type Natriuretic Peptide 655H Height (Feet): 5 Height (Inches): 2.00 Weight (Pounds): 138 General Appearance: no apparent distress, other - Now in ICU intubated Cardiovascular: tachycardia Respiratory/Chest: decreased breath sounds Abdomen: distended Raza De Jesus MD Jun 23, 2020 10:44
--- NOTE | 2020-06-23 10:45 | NUR ---
RESPIRATORY NOTE: ABG drawn at this time. Results shown to Dr. Sewell and reported to Doug AUSTIN. Will continue to monitor.
--- NOTE | 2020-06-23 10:49 | NUR ---
NURSE NOTES: Dr Sewell here to see the patient. Updated him with patient's current condition including bilateral subcutaneous emphysema. He called Dr Frazier for chest tube. Order for chest tube insertion received and noted. Will carry out the order.
--- NOTE | 2020-06-23 11:03 | NUR ---
NURSE NOTES: RT, Tesha, reported post-intubation ABG to Dr Sewell. No new orders. Awaiting Dr Frazier to insert chest tube.
[2020-06-23] MEDS ORDERED: Haloperidol 5mg/ml Inj IM PRN (11:30)
[2020-06-23] MEDS: cefTRIAXone 1 GM in D5W 55 ML IVPB SCH (11:33)
--- NOTE | 2020-06-23 11:34 | NUR ---
NURSE NOTES: PRN Haldol 10mg IVP given for agitation as ordered. Will continue to monitor.
--- NOTE | 2020-06-23 11:39 | NUR ---
CASE MANAGEMENT:REVIEW 06/23/20 SI: COVID PNA. HYPOXIA 100.5 135 18 118/80 92% ON BIPAP W/100% FIO2 WBC+22.4 NA+157 TROPONIN(+) 0.225 IS: HALDOL IM Q6HRS PRN IV ROCEPHIN Q24 COREG PO Q12 IV DECADRON QD IVF@100/HR IV PROTONIX Q12 LOVENOX SQ Q12 : TRANSFERRED FROM STEP DOWN TO ICU FOR CLOSER MONITORING DCP: FROM HOME PLAN: COMPLETED REMDESIVIR ~ WEAN OXYGENT WHEN ABLE PATIENT PULLS OXYGEN OFF AND DESATS TO 70'S
--- NOTE | 2020-06-23 11:47 | Consultation ---
DATE OF CONSULTATION: 06/23/2020 CARDIOLOGY CONSULTATION CONSULTING PHYSICIAN: Maxwell Carreon MD. REFERRING PHYSICIAN: Vidya Clayton MD. REASON FOR CONSULTATION: Respiratory failure requiring intubation. HISTORY OF PRESENT ILLNESS: The patient is a 70-year-old lady who was admitted with increasing shortness of breath, muscle weakness and short of breath, pulse ox was 62% and the patient has lactic acidosis. The patient's COVID test was positive a week prior to the admission. The patient was admitted and was started on BiPAP. However, subsequently the patient's respiratory failure got worse and was transferred to intensive care unit as the patient was on BiPAP. At the time of my evaluation, the patient is in respiratory failure, is not able to provide any information and is on the verge of getting intubated by the emergency room physician. REVIEW OF SYSTEMS: Cannot be obtained. PAST MEDICAL HISTORY: Hypertension. FAMILY HISTORY: Noncontributory. ALLERGIES: No known drug allergies. MEDICATIONS: Per reconciliation. SOCIAL HISTORY: She lives with son. No history of alcohol or drug use. PHYSICAL EXAMINATION: VITAL SIGNS: Show blood pressure of 138/77, pulse 130, respirations 42, temperature 98.2. HEAD AND NECK: No JVD. LUNGS: Coarse rhonchi bilaterally. CARDIOVASCULAR: Regular S1 and S2 and tachycardic. ABDOMEN: Soft. EXTREMITIES: No pitting edema. LABORATORY AND DIAGNOSTIC DATA: White count of 22.4, hemoglobin 13.9, hematocrit of 44, and platelet count is 350. Sodium 157, potassium 3.8, BUN of 31, creatinine 0.9, and glucose of 105. Troponin is 0.225. ASSESSMENT AND PLAN: 1. Respiratory failure likely due to COVID pneumonia. The patient's chest x-ray was also suggestive of small bilateral pneumothoraces with pneumomediastinum and soft tissue emphysema. The patient will be intubated in view of respiratory failure and failed BiPAP. Her echocardiogram showed ejection fraction within normal range. 2. Bilateral pneumothoraces. The patient will be evaluated for possible chest tube placement, but that will be considered after the patient is intubated. 3. Troponin elevation. We will repeat the cardiac enzymes. We will repeat EKG as well. Initial EKG shows sinus tachycardia at 110 beats per minute. 4. Hypernatremia with sodium of 155. IV fluids per Dr. Fouladian. 5. Azotemia, BUN 31 and creatinine 0.8. 6. The patient is also COVID-19 positive and is in isolation, on dexamethasone, completed Remdesivir. 7. Hypertension, the patient is also on Coreg 6.25 mg b.i.d. that may need to be discontinued if the blood pressure drops. Thank you very much, Dr. Clayton, for allowing me to participate in the care of this patient. Please do not hesitate to contact me for any questions regarding my evaluation. Maxwell Carreon M.D. DR: Marcelino JOB#: [id number] CC:
[2020-06-23] MEDS: Midazolam HCl 50mg/10ml vial 50 MG in NS 90 ML IV PRN ×2 (11:59→12:00)
--- NOTE | 2020-06-23 12:00 | NUR ---
NURSE NOTES: Patient is still agitated and restless. RASS +1. Started Versed and will titrate up the rate as ordered to reach goal RASS -2. Will continue to monitor.
--- NOTE | 2020-06-23 13:02 | Infectious Diseases Prog Note ---
Assessment/Plan Assessment/Plan A; Sepsis COVID19 pneumonia Hypoxic respiratory failure Acute kidney injury, resolving Hyperglycemia, DM type 2 Bilateral pneumothorax P; Finished Remdesivir course Continue Dexamethasone Started on Rocephin Subjective ROS Limited/Unobtainable: Yes Constitutional: Reports: fever, other - T=100.5, transferred to ICU Respiratory: Reports: other - intubated, had chest tube placent Allergies: Coded Allergies: No Known Allergies (Unverified , 06/17/20) Objective Last 24 Hour Vital Signs Date Time Temp Pulse Resp B/P (MAP) Pulse Ox O2 Delivery O2 Flow Rate FiO2 06/23/20 12:15 125 35 110/70 (83) 91 06/23/20 12:00 135 39 149/86 (107) 85 06/23/20 11:59 38 Mechanical Ventilator 100 06/23/20 11:00 140 32 142/57 (85) 100 06/23/20 10:49 100.0 06/23/20 10:00 137 17 149/113 (125) 98 06/23/20 09:00 100.5 135 18 118/80 (93) 92 06/23/20 08:55 Mechanical Ventilator Mechanical Ventilator 06/23/20 08:55 100.0 06/23/20 08:30 High Flow O2 60.0 High Flow O2 60.0 06/23/20 08:30 106 24 138/77 (97) 86 06/23/20 08:00 127 42 77 06/23/20 07:30 125 40 81 06/23/20 04:00 60.0 100 06/23/20 04:00 98.2 106 24 138/77 (97) 86 06/23/20 04:00 Bi-pap Bi-pap 06/23/20 04:00 106 06/23/20 03:23 86 High Flow 60.0 100 06/23/20 00:55 83 High Flow 60.0 100 06/23/20 00:55 108 26 83 High Flow 60.0 100 06/23/20 00:00 Bi-pap Bi-pap 06/23/20 00:00 123 06/23/20 00:00 98.2 130 28 162/99 (120) 92 06/23/20 00:00 60.0 100 06/22/20 23:05 90 Bi-Pap 100 06/22/20 22:06 137 124/75 06/22/20 21:15 111 40 85 100 06/22/20 20:07 111 40 89 100 06/22/20 20:00 Bi-pap Bi-pap 06/22/20 20:00 99.0 132 20 124/75 (91) 80 06/22/20 20:00 130 06/22/20 20:00 60.0 100 06/22/20 19:02 85 High Flow 60.0 100 06/22/20 16:00 60.0 100 06/22/20 16:00 100 06/22/20 16:00 98.2 98 25 139/80 (99) 100 06/22/20 16:00 Bi-pap 06/22/20 15:05 90 High Flow 60.0 100 06/22/20 13:34 102 143/80 Height (Feet): 5 Height (Inches): 2.00 Weight (Pounds): 138 HEENT: other - orally intubated Respiratory/Chest: other - on ventilator, POT0=811%, bilateral chest tubes Cardiovascular: tachycardia Abdomen: soft, non tender Genitourinary: other - Martin catheter Extremities: no edema Neurologic/Psychiatric: other - sedated Laboratory Tests Test 06/22/20 13:35 06/22/20 19:09 06/23/20 01:25 06/23/20 01:29 Arterial Blood pH 7.522 (7.350-7.450) 7.369 (7.350-7.450) 7.488 (7.350-7.450) Arterial Blood Partial Pressure CO2 25.3 mmHg (35.0-45.0) L 29.3 mmHg (35.0-45.0) L 30.6 mmHg (35.0-45.0) L Arterial Blood Partial Pressure O2 54.9 mmHg (75.0-100.0) L 47.7 mmHg (75.0-100.0) 40.8 mmHg (75.0-100.0) Arterial Blood HCO3 20.3 mmol/L (22.0-26.0) L 16.5 mmol/L (22.0-26.0) *L 22.7 mmol/L (22.0-26.0) Arterial Blood Oxygen Saturation 91.2 % (95-100) L 79.3 % (95-100) *L 78.4 % (95-100) *L Arterial Blood Base Excess -1.0 (-2-2) -7.3 (-2-2) L 0.3 (-2-2) Amrit Test Positive Positive Positive POC Whole Blood Glucose 144 MG/DL (74-106) H Test 06/23/20 03:20 06/23/20 05:40 06/23/20 07:44 06/23/20 08:00 Sodium Level 151 MMOL/L (136-145) H 157 MMOL/L (136-145) H Potassium Level 5.5 MMOL/L (3.5-5.1) H 3.8 MMOL/L (3.5-5.1) Chloride Level 120 MMOL/L (98-107) H 122 MMOL/L (98-107) H Carbon Dioxide Level 17 MMOL/L (21-32) L 24 MMOL/L (21-32) Anion Gap 14 mmol/L (5-15) 12 mmol/L (5-15) Blood Urea Nitrogen 31 mg/dL (7-18) H 31 mg/dL (7-18) H Creatinine 0.5 MG/DL (0.55-1.30) L 0.9 MG/DL (0.55-1.30) # Estimat Glomerular Filtration Rate > 60 mL/min (>60) > 60 mL/min (>60) Glucose Level 85 MG/DL (74-106) 105 MG/DL (74-106) Calcium Level 8.4 MG/DL (8.5-10.1) L 8.5 MG/DL (8.5-10.1) Phosphorus Level 2.1 MG/DL (2.5-4.9) L Magnesium Level 2.5 MG/DL (1.8-2.4) H Total Bilirubin 1.1 MG/DL (0.2-1.0) H Direct Bilirubin < 0.1 MG/DL (0.0-0.3) Aspartate Amino Transf (AST/SGOT) 110 U/L (15-37) H Alanine Aminotransferase (ALT/SGPT) 49 U/L (12-78) Alkaline Phosphatase 90 U/L (46-116) Total Protein 7.3 G/DL (6.4-8.2) Albumin 2.2 G/DL (3.4-5.0) L Globulin 5.1 g/dL Albumin/Globulin Ratio 0.4 (1.0-2.7) L POC Whole Blood Glucose 107 MG/DL (74-106) H Arterial Blood pH 7.454 (7.350-7.450) Arterial Blood Partial Pressure CO2 32.4 mmHg (35.0-45.0) L Arterial Blood Partial Pressure O2 40.9 mmHg (75.0-100.0) Arterial Blood HCO3 22.2 mmol/L (22.0-26.0) Arterial Blood Oxygen Saturation 76.9 % (95-100) *L Arterial Blood Base Excess -0.8 (-2-2) Amrit Test Positive White Blood Count 22.4 K/UL (4.8-10.8) *H Red Blood Count 4.83 M/UL (4.20-5.40) Hemoglobin 13.9 G/DL (12.0-16.0) Hematocrit 44.1 % (37.0-47.0) Mean Corpuscular Volume 91 FL (80-99) Mean Corpuscular Hemoglobin 28.9 PG (27.0-31.0) Mean Corpuscular Hemoglobin Concent 31.6 G/DL (32.0-36.0) L Red Cell Distribution Width 12.3 % (11.6-14.8) Platelet Count 350 K/UL (150-450) Mean Platelet Volume 7.4 FL (6.5-10.1) Neutrophils (%) (Auto) % (45.0-75.0) Lymphocytes (%) (Auto) % (20.0-45.0) Monocytes (%) (Auto) % (1.0-10.0) Eosinophils (%) (Auto) % (0.0-3.0) Basophils (%) (Auto) % (0.0-2.0) Differential Total Cells Counted 100 Neutrophils % (Manual) 97 % (45-75) H Lymphocytes % (Manual) 2 % (20-45) L Monocytes % (Manual) 1 % (1-10) Eosinophils % (Manual) 0 % (0-3) Basophils % (Manual) 0 % (0-2) Band Neutrophils 0 % (0-8) Platelet Estimate Adequate Platelet Morphology Normal Red Blood Cell Morphology Normal Lactic Acid Level 2.70 mmol/L (0.4-2.0) H Troponin I 0.225 ng/mL (0.000-0.056) Pro-B-Type Natriuretic Peptide 655 pg/mL (0-125) H Test 06/23/20 10:45 Arterial Blood pH 7.391 (7.350-7.450) Arterial Blood Partial Pressure CO2 37.1 mmHg (35.0-45.0) Arterial Blood Partial Pressure O2 41.6 mmHg (75.0-100.0) Arterial Blood HCO3 22.0 mmol/L (22.0-26.0) Arterial Blood Oxygen Saturation 75.7 % (95-100) *L Arterial Blood Base Excess -2.4 (-2-2) L Amrit Test Positive Current Medications Medications (Trade) Dose Ordered Sig/Maya Route PRN Reason Start Time Stop Time Status Last Admin Dose Admin Acetaminophen (Tylenol) 500 mg Q4H PRN ORAL Mild Pain (Pain Scale 1-3) 06/18/20 00:15 07/18/20 00:14 Acetaminophen (Tylenol) 500 mg Q4H PRN ORAL Temp >100.5 06/18/20 00:15 07/18/20 00:14 Carvedilol (Coreg) 6.25 mg EVERY 12 HOURS ORAL 06/22/20 21:00 07/22/20 20:59 06/22/20 22:06 Ceftriaxone Sodium 1 gm/ Dextrose 55 ml @ 110 mls/hr Q24H IVPB 06/23/20 11:00 06/30/20 10:59 06/23/20 11:33 Dexamethasone Sodium Phosphate (Decadron 10mg/ ml Inj) 6 mg DAILY IV 06/18/20 09:45 06/27/20 09:01 06/23/20 10:34 Dextrose 1,000 ml @ 100 mls/hr Q10H IV 06/19/20 13:30 07/19/20 13:29 06/23/20 05:38 Dextrose (Dextrose 50%) 25 ml Q30M PRN IV Hypoglycemia 06/18/20 14:15 09/16/20 14:14 Dextrose (Dextrose 50%) 50 ml Q30M PRN IV Hypoglycemia 06/18/20 14:15 09/16/20 14:14 Docusate Sodium (Colace) 100 mg THREE TIMES A DAY ORAL 06/18/20 13:00 07/18/20 12:59 06/22/20 18:40 Enoxaparin Sodium (Lovenox) 40 mg DAILY SUBQ 06/21/20 09:00 09/19/20 08:59 06/23/20 10:35 Haloperidol Lactate (Haldol) 10 mg Q6H PRN IM Agitation 06/23/20 11:30 08/07/20 11:29 06/23/20 11:34 Insulin Aspart (NovoLOG) while NPO Q6HR SUBQ 06/18/20 18:00 09/16/20 17:59 06/23/20 11:54 Midazolam HCl 50 mg/Sodium Chloride 100 ml @ 0 mls/hr Q24H PRN IV Agitation 06/23/20 12:30 06/25/20 12:29 06/23/20 11:59 Pantoprazole (Protonix) 40 mg EVERY 12 HOURS IVP 06/18/20 21:00 07/18/20 20:59 06/23/20 09:00 Raji Turpin MD Jun 23, 2020 13:02
--- NOTE | 2020-06-23 13:03 | Operative Note - PDOC ---
Operative Note Operative Note Date of Operation/Procedure: Jun 23, 2020 Pre-op Diagnosis: Bilateral Pneumothorax Procedure: 1. right chest tube insertion 2. left chest tube insertion Post-op Diagnosis: same as pre-op Surgeon: blade frazier md Anesthesia: other Specimen: none Complications: none Condition: stable Fluids: see Estimated Blood Loss: minimal Drains: other Implant(s) used?: No Indications for Procedure 70-year-old female Covid positive currently intubated and lymphatic center declining identified to have pneumomediastinum and subcutaneous emphysema r ecently with today's x-ray identifying bilateral small pneumothoraces likely etiology. Discussed with pulmonology medical teams and patient's family bilateral tube thoracostomy indicated and recommended. Consent obtained patient in ICU procedure performed bedside Description of Procedure Patient is not comfortable the bedside with bilateral arms up. Patient on ventilator support patient sedated currently unresponsive. Desaturation identified satting in the high 80s low 90s. The bilateral chest razo were prepped draped in standard surgical fashion. Anatomy was identified bilaterally at the level around the fifth and sixth intercostal space. Inframammary line mid axillary identified. Began with the right side and a small skin incision was made using a fresh #15 scalpel and carried on the 70s tissue to the intercostal muscle. Entry into the pleural space identified with a gush of air being identified. A 28 [place] chest tube was inserted with direct palpation into the chest cavity without complication. It was placed on Pleur-evac suction. Tube was sutured in place followed by dressings. Attention was then turned to the left side where in a similar fashion a 28 [place] chest tube was inserted. Again dressings applied and placed on the Pleur-evac both onto suction. Chest x-ray obtained and tube in appropriate positioning bilaterally. Patient saturations improved to about 96 to 98% post tube placement. Small leak identified on the left side no leak currently identified on the right. Continue chest tubes to suction 20 mmHg for now. Dressings as needed check daily. Will monitor and care for chest tubes. Blade Frazier Jun 23, 2020 13:03
--- NOTE | 2020-06-23 13:14 | NUR ---
NURSE NOTES: Dr Frazier here to insert bilateral chest tube on the patient. He called son Ethan Schultz and got the consent for chest tube insertion. Bilateral chest tube inserted at bedside by Dr Frazier. Order to change vent setting receiving and noted.
--- NOTE | 2020-06-23 13:34 | NUR ---
RADIOLOGY DEPT., CHEST X-RAY DONE FOR TWO CHEST TUBES.-P.DYE
--- NOTE | 2020-06-23 13:46 | NUR ---
INSURANCE CLINICALS/REVIEW FAXED TO [facility] [phone]
--- NOTE | 2020-06-23 14:10 | Pulmonology Progress Note ---
Subjective ROS Limited/Unobtainable: Yes Interval Events: Intubated this AM Constitutional: Reports: fever, other - T=100.5, transferred to ICU HEENT: Repors: no symptoms Respiratory: Reports: shortness of breath Cardiovascular: Reports: no symptoms Gastrointestinal/Abdominal: Reports: no symptoms Allergies: Coded Allergies: No Known Allergies (Unverified , 06/17/20) Objective Last 24 Hour Vital Signs Date Time Temp Pulse Resp B/P (MAP) Pulse Ox O2 Delivery O2 Flow Rate FiO2 06/23/20 13:20 99.4 104 29 91/60 (70) 95 06/23/20 13:16 100.0 06/23/20 13:00 115 36 116/70 (85) 89 06/23/20 12:45 122 31 136/69 (91) 92 06/23/20 12:30 121 35 99/71 (80) 90 06/23/20 12:15 125 35 110/70 (83) 91 06/23/20 12:00 125 06/23/20 12:00 135 39 149/86 (107) 85 06/23/20 11:59 38 Mechanical Ventilator 100 06/23/20 11:00 140 32 142/57 (85) 100 06/23/20 10:49 100.0 06/23/20 10:40 144 35 100 06/23/20 10:00 137 17 149/113 (125) 98 06/23/20 09:00 100.5 135 18 118/80 (93) 92 06/23/20 08:55 124 12 97 Mechanical Ventilator 100 06/23/20 08:55 124 12 100 06/23/20 08:55 Mechanical Ventilator Mechanical Ventilator 06/23/20 08:55 100.0 06/23/20 08:55 124 12 97 Mechanical Ventilator 100 06/23/20 08:30 126 06/23/20 08:30 High Flow O2 60.0 High Flow O2 60.0 06/23/20 08:30 106 24 138/77 (97) 86 06/23/20 08:00 127 42 77 06/23/20 07:44 73 High Flow 60.0 100 06/23/20 07:30 125 40 81 06/23/20 04:00 60.0 100 06/23/20 04:00 98.2 106 24 138/77 (97) 86 06/23/20 04:00 Bi-pap Bi-pap 06/23/20 04:00 106 06/23/20 03:23 86 High Flow 60.0 100 06/23/20 00:55 83 High Flow 60.0 100 06/23/20 00:55 108 26 83 High Flow 60.0 100 06/23/20 00:00 Bi-pap Bi-pap 06/23/20 00:00 123 06/23/20 00:00 98.2 130 28 162/99 (120) 92 06/23/20 00:00 60.0 100 06/22/20 23:05 90 Bi-Pap 100 06/22/20 22:06 137 124/75 06/22/20 21:15 111 40 85 100 06/22/20 20:07 111 40 89 100 06/22/20 20:00 Bi-pap Bi-pap 06/22/20 20:00 99.0 132 20 124/75 (91) 80 06/22/20 20:00 130 06/22/20 20:00 60.0 100 06/22/20 19:02 85 High Flow 60.0 100 06/22/20 16:00 60.0 100 06/22/20 16:00 100 06/22/20 16:00 98.2 98 25 139/80 (99) 100 06/22/20 16:00 Bi-pap 06/22/20 15:05 90 High Flow 60.0 100 Intake and Output 06/22/20 06/23/20 19:00 07:00 Intake Total 750 ml 777.5 ml Balance 750 ml 777.5 ml Intake IV Total 750 ml 777.5 ml # Voids 4 General Appearance: no acute distress HEENT: atraumatic Respiratory: crackles/rales Cardiovascular: normal rate Abdomen: soft, non tender Laboratory Tests 06/22/20 19:09: Arterial Blood pH 7.369, Arterial Blood Partial Pressure CO2 29.3L, Arterial Blood Partial Pressure O2 47.7*L, Arterial Blood HCO3 16.5*L, Arterial Blood Oxygen Saturation 79.3*L, Arterial Blood Base Excess -7.3L, Amrit Test Positive 06/23/20 01:25: Arterial Blood pH 7.488H, Arterial Blood Partial Pressure CO2 30.6L, Arterial Blood Partial Pressure O2 40.8*L, Arterial Blood HCO3 22.7, Arterial Blood Oxygen Saturation 78.4*L, Arterial Blood Base Excess 0.3, Amrit Test Positive 06/23/20 01:29: POC Whole Blood Glucose 144H 06/23/20 03:20: Sodium Level 151H, Potassium Level 5.5H, Chloride Level 120H, Carbon Dioxide Level 17L, Anion Gap 14, Blood Urea Nitrogen 31H, Creatinine 0.5L, Estimat Glomerular Filtration Rate > 60, Glucose Level 85, Calcium Level 8.4L, Phosphorus Level 2.1L, Magnesium Level 2.5H, Total Bilirubin 1.1H, Direct Bilirubin < 0.1, Aspartate Amino Transf (AST/SGOT) 110H, Alanine Aminotransferase (ALT/SGPT) 49, Alkaline Phosphatase 90, Total Protein 7.3, Albumin 2.2L, Globulin 5.1, Albumin/Globulin Ratio 0.4L 06/23/20 05:40: POC Whole Blood Glucose 107H 06/23/20 07:44: Arterial Blood pH 7.454H, Arterial Blood Partial Pressure CO2 32.4L, Arterial Blood Partial Pressure O2 40.9*L, Arterial Blood HCO3 22.2, Arterial Blood Oxygen Saturation 76.9*L, Arterial Blood Base Excess -0.8, Amrit Test Positive 06/23/20 08:00: White Blood Count 22.4*H, Red Blood Count 4.83, Hemoglobin 13.9, Hematocrit 44.1, Mean Corpuscular Volume 91, Mean Corpuscular Hemoglobin 28.9, Mean Corpuscular Hemoglobin Concent 31.6L, Red Cell Distribution Width 12.3, Platelet Count 350, Mean Platelet Volume 7.4, Neutrophils (%) (Auto) , Lymphocytes (%) (Auto) , Monocytes (%) (Auto) , Eosinophils (%) (Auto) , Basophils (%) (Auto) , Differential Total Cells Counted 100, Neutrophils % (Manual) 97H, Lymphocytes % (Manual) 2L, Monocytes % (Manual) 1, Eosinophils % (Manual) 0, Basophils % (Manual) 0, Band Neutrophils 0, Platelet Estimate Adequate, Platelet Morphology Normal, Red Blood Cell Morphology Normal, Sodium Level 157H, Potassium Level 3.8, Chloride Level 122H, Carbon Dioxide Level 24, Anion Gap 12, Blood Urea Nitrogen 31H, Creatinine 0.9#, Estimat Glomerular Filtration Rate > 60, Glucose Level 105, Lactic Acid Level 2.70H, Calcium Level 8.5, Troponin I 0.225H, Pro-B-Type Natriuretic Peptide 655H 06/23/20 10:45: Arterial Blood pH 7.391, Arterial Blood Partial Pressure CO2 37.1, Arterial Blood Partial Pressure O2 41.6*L, Arterial Blood HCO3 22.0, Arterial Blood Oxygen Saturation 75.7*L, Arterial Blood Base Excess -2.4L, Amrit Test Positive Current Medications Medications (Trade) Dose Ordered Sig/Maya Route PRN Reason Start Time Stop Time Status Last Admin Dose Admin Acetaminophen (Tylenol) 500 mg Q4H PRN ORAL Mild Pain (Pain Scale 1-3) 06/18/20 00:15 07/18/20 00:14 Acetaminophen (Tylenol) 500 mg Q4H PRN ORAL Temp >100.5 06/18/20 00:15 07/18/20 00:14 Carvedilol (Coreg) 6.25 mg EVERY 12 HOURS ORAL 06/22/20 21:00 07/22/20 20:59 06/22/20 22:06 Ceftriaxone Sodium 1 gm/ Dextrose 55 ml @ 110 mls/hr Q24H IVPB 06/23/20 11:00 06/30/20 10:59 06/23/20 11:33 Dexamethasone Sodium Phosphate (Decadron 10mg/ ml Inj) 6 mg DAILY IV 06/18/20 09:45 06/27/20 09:01 06/23/20 10:34 Dextrose 1,000 ml @ 100 mls/hr Q10H IV 06/19/20 13:30 07/19/20 13:29 06/23/20 05:38 Dextrose (Dextrose 50%) 25 ml Q30M PRN IV Hypoglycemia 06/18/20 14:15 09/16/20 14:14 Dextrose (Dextrose 50%) 50 ml Q30M PRN IV Hypoglycemia 06/18/20 14:15 09/16/20 14:14 Docusate Sodium (Colace) 100 mg THREE TIMES A DAY ORAL 06/18/20 13:00 07/18/20 12:59 06/22/20 18:40 Enoxaparin Sodium (Lovenox) 40 mg DAILY SUBQ 06/21/20 09:00 09/19/20 08:59 06/22/20 10:14 Haloperidol Lactate (Haldol) 10 mg Q6H PRN IM Agitation 06/23/20 11:30 08/07/20 11:29 06/23/20 11:34 Insulin Aspart (NovoLOG) while NPO Q6HR SUBQ 06/18/20 18:00 09/16/20 17:59 06/23/20 11:54 Midazolam HCl 50 mg/Sodium Chloride 100 ml @ 0 mls/hr Q24H PRN IV Agitation 06/23/20 12:30 06/25/20 12:29 06/23/20 11:59 Pantoprazole (Protonix) 40 mg EVERY 12 HOURS IVP 06/18/20 21:00 07/18/20 20:59 06/23/20 09:00 Assessment/Plan Assessment/Plan 1. COVID-19 pneumonia - Desaturation overnight on NRB + hi flow; ABG worse; now intubated and transferred to ICU -On Decadron, s/p remdesivir 2. Leukocytosis -Likely secondary to #1 -WBC improving 3. Elevated D-dimer -Venous duplex ultrasound negative for DVT -Was on full dose Lovenox, switched to 40 subcu QD for DVT prophylaxis 4. Renal insufficiency -On IV fluids - nephro following 5. Anemia of chronic disease -Hematology oncology following 6. Sepsis -Status post antibiotics, fluid resuscitation 7. Pneumothorax 06/22/20 - b/l subcutaneous emphysema, pneumomediastinum, probable small left pneumothorax & ? trace right pneumothorax. - CXR worse; has bilateral PTX - requested CT by surgery (bilateral) Charlie Sewell MD Jun 23, 2020 14:10
--- NOTE | 2020-06-23 15:43 | Diagnostic Imaging Report ---
Indication: Post endotracheal tube placement Technique: One view of the chest Comparison: none Findings: Interim endotracheal intubation, endotracheal tube tip in good position approximately 4 cm above the melyssa. Interim placement of an orogastric tube, tip in the mid to distal esophagus, shaft appearing to be coiled in the hypopharynx. Bilateral infiltrates are unchanged. Small bilateral pneumothoraces are unchanged, left greater than right, slightly more conspicuous than on the previous study. There is probably a pneumomediastinum as well. Extensive subcutaneous emphysema persists. Impression: Satisfactory endotracheal intubation. High position of orogastric tube Unchanged bilateral pneumothoraces and pneumomediastinum Unchanged bilateral infiltrates Unchanged subcutaneous emphysema
--- NOTE | 2020-06-23 15:47 | Diagnostic Imaging Report ---
Indication: Post orogastric tube placement Technique: Supine view of the abdomen Comparison: none Findings: Initial image demonstrates orogastric tube tip at the level of the distal esophagus. On the subsequent image it has advanced, tip just within the stomach with the proximal port is above the gastroesophageal junction. The bowel gas pattern is unremarkable. The included lung bases demonstrate extensive infiltrates bilaterally. There is extensive subcutaneous emphysema. There are degenerative spondylosis changes Impression: High position of orogastric tube despite advancement. This was discussed with patient's nurse at the time of interpretation Other findings as noted
--- NOTE | 2020-06-23 15:50 | Diagnostic Imaging Report ---
Indication: Dyspnea Technique: One view of the chest Comparison: 3 hours earlier Findings: Orogastric tube tip projects just beyond the gastroesophageal junction and the proximal sidehole projects above the gastroesophageal junction, shaft of the orogastric tube coiled in the hypopharynx. Stable satisfactory position of endotracheal tube. Interim placement of bilateral chest tubes, which appear to be adequately positioned. However, bilateral pneumothoraces appear unchanged. Bilateral subcutaneous emphysema is again demonstrated, probably not significantly changed. Bilateral infiltrates are unchanged Impression: Interim bilateral chest tube placement. Unchanged small bilateral pneumothoraces, despite apparent adequate position of such. Malposition of orogastric tube, as described common shaft coiled in the hypopharynx, tip barely within the stomach. Recommend pulling out the slack and reinserting. This was discussed with patient's nurse at the time of interpretation. Other stable findings as described
--- NOTE | 2020-06-23 15:58 | NUR ---
NURSE NOTES: RASS -2 with Versed 4 mcg/hr. Hr 90's. O2 sat 96%. RR 25. Continued bilateral soft wrist restraints because patient is impulsive at times, trying to reach ETT. Will continue to monitor.
--- NOTE | 2020-06-23 17:45 | NUR ---
NURSE NOTES: New peripheral IV inserted to right AC. Cleaned and repositioned patient. Oral care done. Will continue to monitor. Addendum: 06/23/20 at 1748 by HARISH ELIZONDO RN RN NURSE NOTES: New peripheral IV inserted to right AC. Cleaned and repositioned patient. Oral care done. NGT tube adjusted as per radiologist's recommendation. STAT KUB ordered to check placement. Will continue to monitor.
--- NOTE | 2020-06-23 18:34 | Diagnostic Imaging Report ---
EXAM: XR Abdomen, 2 Views CLINICAL HISTORY: NGT TECHNIQUE: Frontal view of the abdomen/pelvis with upright view of the abdomen. COMPARISON: 06/23/2020, earlier study. FINDINGS: Lower thorax: Small bilateral pleural effusions. Intraperitoneal space: No free air. Gastrointestinal tract: Nonspecific bowel gas pattern. No dilation. Bones/joints: Osteopenia. Soft tissues: There is extensive subcutaneous emphysema the anterior chest wall. Tubes, lines and devices: NG tube is noted in place with its tip within the proximal duodenum. Bilateral chest tubes are noted in place. IMPRESSION: NG tube is noted in place with its tip below the diaphragm.
--- NOTE | 2020-06-23 19:13 | NUR ---
NURSE HAND-OFF REPORT: Latest Vital Signs: Temperature 99.5 , Pulse 99 , B/P 111 /56 , Respiratory Rate 30 , O2 SAT 96 , Mechanical Ventilator, O2 Flow Rate . Vital Sign Comment: EKG Rhythm: Sinus Rhythm Rhythm change?: N MD Notified?: MD Response: Latest Carney Fall Score: 45 Fall Risk: High Risk Safety Measures: Call light Within Reach, Bed Alarm Zone 2, Side Rails Side Rails x3, Bed position Low and Locked. Fall Precautions: Yellow Socks Yellow Gown Door Sign Patient Fall Education Report given to NORMAN Chisholm.
--- NOTE | 2020-06-23 20:06 | NUR ---
NURSE NOTES: received report from yina woodward orally intubated with o2 sat 94% sedated with versed 2mg -2 rass on 2chest tube to suction on suction iv infusing well site good urenary output good reposition and suction
--- NOTE | 2020-06-23 20:46 | General Progress Note ---
Subjective ROS Limited/Unobtainable: Yes Allergies: Coded Allergies: No Known Allergies (Unverified , 06/17/20) Objective Last 24 Hour Vital Signs Date Time Temp Pulse Resp B/P (MAP) Pulse Ox O2 Delivery O2 Flow Rate FiO2 06/23/20 19:00 28 Mechanical Ventilator 100 06/23/20 19:00 91 31 98/63 (75) 94 06/23/20 18:00 99 33 111/56 (74) 96 06/23/20 18:00 30 Mechanical Ventilator 100 06/23/20 17:00 31 Mechanical Ventilator 100 06/23/20 17:00 98 29 111/83 (92) 94 06/23/20 16:00 Mechanical Ventilator Mechanical Ventilator 06/23/20 16:00 99.5 95 27 100/65 (77) 96 06/23/20 16:00 29 Mechanical Ventilator 100 06/23/20 15:19 98 06/23/20 15:10 98 29 100 06/23/20 15:00 29 Mechanical Ventilator 100 06/23/20 15:00 98 26 104/61 (75) 94 06/23/20 14:00 27 Mechanical Ventilator 100 06/23/20 14:00 98 24 90/80 (83) 89 06/23/20 13:18 108 31 100 06/23/20 13:16 100.0 06/23/20 13:00 99.4 115 36 116/70 (85) 89 06/23/20 13:00 28 Mechanical Ventilator 100 06/23/20 12:45 32 Mechanical Ventilator 100 06/23/20 12:45 122 31 136/69 (91) 92 06/23/20 12:30 121 35 99/71 (80) 90 06/23/20 12:30 32 Mechanical Ventilator 100 06/23/20 12:15 34 Mechanical Ventilator 100 06/23/20 12:15 125 35 110/70 (83) 91 06/23/20 12:00 Mechanical Ventilator Mechanical Ventilator 06/23/20 12:00 125 06/23/20 12:00 35 Mechanical Ventilator 100 06/23/20 12:00 135 39 149/86 (107) 85 06/23/20 11:00 140 32 142/57 (85) 100 06/23/20 10:49 100.0 06/23/20 10:40 144 35 100 06/23/20 10:00 137 17 149/113 (125) 98 06/23/20 09:00 100.5 135 18 118/80 (93) 92 06/23/20 08:55 124 12 97 Mechanical Ventilator 100 06/23/20 08:55 124 12 100 06/23/20 08:55 Mechanical Ventilator Mechanical Ventilator 06/23/20 08:55 100.0 06/23/20 08:55 124 12 97 Mechanical Ventilator 100 06/23/20 08:30 126 06/23/20 08:30 High Flow O2 60.0 High Flow O2 60.0 06/23/20 08:30 106 24 138/77 (97) 86 06/23/20 08:00 127 42 77 06/23/20 07:44 73 High Flow 60.0 100 06/23/20 07:30 125 40 81 06/23/20 04:00 60.0 100 06/23/20 04:00 98.2 106 24 138/77 (97) 86 06/23/20 04:00 Bi-pap Bi-pap 06/23/20 04:00 106 06/23/20 03:23 86 High Flow 60.0 100 06/23/20 00:55 83 High Flow 60.0 100 06/23/20 00:55 108 26 83 High Flow 60.0 100 06/23/20 00:00 Bi-pap Bi-pap 06/23/20 00:00 123 06/23/20 00:00 98.2 130 28 162/99 (120) 92 06/23/20 00:00 60.0 100 06/22/20 23:05 90 Bi-Pap 100 06/22/20 22:06 137 124/75 06/22/20 21:15 111 40 85 100 Intake and Output 06/22/20 06/23/20 19:00 07:00 Intake Total 750 ml 852.5 ml Balance 750 ml 852.5 ml Intake IV Total 750 ml 852.5 ml # Voids 4 Laboratory Tests 06/23/20 01:25: Arterial Blood pH 7.488H, Arterial Blood Partial Pressure CO2 30.6L, Arterial Blood Partial Pressure O2 40.8*L, Arterial Blood HCO3 22.7, Arterial Blood Oxygen Saturation 78.4*L, Arterial Blood Base Excess 0.3, Amrit Test Positive 06/23/20 01:29: POC Whole Blood Glucose 144H 06/23/20 03:20: Sodium Level 151H, Potassium Level 5.5H, Chloride Level 120H, Carbon Dioxide Level 17L, Anion Gap 14, Blood Urea Nitrogen 31H, Creatinine 0.5L, Estimat Glomerular Filtration Rate > 60, Glucose Level 85, Calcium Level 8.4L, Phosphorus Level 2.1L, Magnesium Level 2.5H, Total Bilirubin 1.1H, Direct Bilirubin < 0.1, Aspartate Amino Transf (AST/SGOT) 110H, Alanine Aminotransferase (ALT/SGPT) 49, Alkaline Phosphatase 90, Total Protein 7.3, Albumin 2.2L, Globulin 5.1, Albumin/Globulin Ratio 0.4L 06/23/20 05:40: POC Whole Blood Glucose 107H 06/23/20 07:44: Arterial Blood pH 7.454H, Arterial Blood Partial Pressure CO2 32.4L, Arterial Blood Partial Pressure O2 40.9*L, Arterial Blood HCO3 22.2, Arterial Blood Oxygen Saturation 76.9*L, Arterial Blood Base Excess -0.8, Amrit Test Positive 06/23/20 08:00: White Blood Count 22.4*H, Red Blood Count 4.83, Hemoglobin 13.9, Hematocrit 44.1, Mean Corpuscular Volume 91, Mean Corpuscular Hemoglobin 28.9, Mean Corpuscular Hemoglobin Concent 31.6L, Red Cell Distribution Width 12.3, Platelet Count 350, Mean Platelet Volume 7.4, Neutrophils (%) (Auto) , Lymphocytes (%) (Auto) , Monocytes (%) (Auto) , Eosinophils (%) (Auto) , Basophils (%) (Auto) , Differential Total Cells Counted 100, Neutrophils % (Manual) 97H, Lymphocytes % (Manual) 2L, Monocytes % (Manual) 1, Eosinophils % (Manual) 0, Basophils % (Manual) 0, Band Neutrophils 0, Platelet Estimate Adequate, Platelet Morphology Normal, Red Blood Cell Morphology Normal, Sodium Level 157H, Potassium Level 3.8, Chloride Level 122H, Carbon Dioxide Level 24, Anion Gap 12, Blood Urea Nitrogen 31H, Creatinine 0.9#, Estimat Glomerular Filtration Rate > 60, Glucose Level 105, Lactic Acid Level 2.70H, Calcium Level 8.5, Troponin I 0.225H, Pro-B-Type Natriuretic Peptide 655H 06/23/20 10:45: Arterial Blood pH 7.391, Arterial Blood Partial Pressure CO2 37.1, Arterial Blood Partial Pressure O2 41.6*L, Arterial Blood HCO3 22.0, Arterial Blood Oxygen Saturation 75.7*L, Arterial Blood Base Excess -2.4L, Amrit Test Positive 06/23/20 17:30: Troponin I 0.120H Height (Feet): 5 Height (Inches): 2.00 Weight (Pounds): 138 Assessment/Plan Problem List: (1) Elevated d-dimer ICD Codes: R79.89 - Other specified abnormal findings of blood chemistry SNOMED: 138170111 (2) Renal insufficiency ICD Codes: N28.9 - Disorder of kidney and ureter, unspecified SNOMED: 567971847, 254252614 (3) PNA (pneumonia) ICD Codes: J18.9 - Pneumonia, unspecified organism SNOMED: 749784148 (4) Dehydration ICD Codes: E86.0 - Dehydration SNOMED: 97804880 (5) LEONARDO (acute kidney injury) ICD Codes: N17.9 - Acute kidney failure, unspecified SNOMED: 2807203, 24432566 (6) Hypoxia ICD Codes: R09.02 - Hypoxemia; J12.82 - Pneumonia due to coronavirus disease 2019 SNOMED: 667894454 (7) Pneumonia due to COVID-19 virus ICD Codes: U07.1 - COVID-19; J12.82 - Pneumonia due to coronavirus disease 2019 SNOMED: 958503931911456778 (8) DMII (diabetes mellitus, type 2) ICD Codes: E11.9 - Type 2 diabetes mellitus without complications SNOMED: 02961815 Status: progressing Assessment/Plan: covid + resp failure intubated dm worsening leuckoytosis in icu sepsis Vidya Clayton MD Jun 23, 2020 20:46
--- NOTE | 2020-06-23 22:53 | Psychiatry Consultation ---
Psychiatry Consultation Psychiatry Consultation Chief Complaint: Dyspnea/Respdistress Allergies: Coded Allergies: No Known Allergies (Unverified , 06/17/20) Medication History Scheduled Amlodipine Besylate* (Amlodipine Besylate*), 5 MG ORAL DAILY, (Reported) Aspirin (Aspirin EC), 81 MG ORAL DAILY, (Reported) Atorvastatin Calcium* (Lipitor*), 10 MG ORAL DAILY, (Reported) Clobetasol Propionate (Clobetasol Propionate), 1 APPLIC TP BID, (Reported) Doxycycline Hyclate (Doxycycline Hyclate), 100 MG PO BID, (Reported) Loratadine (Claritin*), 10 MG PO DAILY, (Reported) Losartan/Hydrochlorothiazide 100-12.5 Tablet (Hyzaar 100-12.5 Tablet), 1 TAB ORAL DAILY, (Reported) Metoprolol Tartrate* (Metoprolol Tartrate*), 50 MG ORAL DAILY, (Reported) Montelukast Sodium* (Montelukast Sodium*), 10 MG ORAL DAILY, (Reported) Scheduled PRN Clonidine Hcl* (Catapres*), 0.1 MG ORAL DAILY PRN for BLOOD PRESSURE, (Reported) D-Methorphan Hb/Prometh Hcl* (Promethazine-Dm Syrup*), 1 TBS ORAL Q6H PRN for For Cough, (Reported) Meloxicam* (Meloxicam*), 15 MG PO DAILY PRN for For Pain, (Reported) Objective Data Height (Feet): 5 Height (Inches): 2.00 Weight (Pounds): 138 Appearance: no abnormalities noted Behavior Mannerisms: good eye contact Affect: blunted Additional Comments: alert, oriented times self. Mood is agitated. Affect is blunted. Thought process, disorganized. Thought content, no suicidal or homicidal ideation. Cognition is impaired. Insight and judgment is impaired. ASSESSMENT: [place] I Schizophrenia. [place] II Deferred. [place] III Failure to thrive. [place] IV Low. [place] V 20. PLAN: 1. Discontinue the Remeron, Zyprexa 10 mg at bedtime. 2. Increase the Ativan p.r.harriet. Suellen Carlson MD Jun 23, 2020 22:53
[2020-06-24] VITALS (25 sets, daily range): BP systolic 91–153; BP diastolic 47–98
--- NOTE | 2020-06-24 | NUR ---
NURSE NOTES: reposition and suction
[2020-06-24] MEDS: Midazolam HCl 50mg/10ml vial 50 MG in NS 90 ML IV PRN ×3 (02:03→23:03)
--- NOTE | 2020-06-24 02:26 | Cardiology Report ---
APPROVED REPORT EXAM: Two-dimensional and M-mode echocardiogram with Doppler and color Doppler. INDICATION Congestive Heart Failure M-Mode DIMENSIONS Left Atrium (MM)3.3 (1.6-4.0cm) Aortic Root4.5 (2.0-3.7cm) Aortic Cusp Exc.1.9 (1.5-2.0cm) Other Information Quality : Technically Limited <Conclusion> Technically difficult study due poor acoustical windows,all images obtained from subcostal. Normal left ventricular chamber size, systolic function and wall motion to extent visualized. Left ventricular ejection fraction estimated to be grossly normal. No evidence of ventricular hypertrophy. Anterior Echo-free space, may be due to pericardial fat or effusion. All other cardiac chamber sizes are within normal limits. Calcification of aortic valve with adequate cusp excursion. Thickened mitral valve leaflets with normal excursion. Mitral annulus and aortic root calcification. Pulmonic valve not well visualized. Normal tricuspid valve structure. IVC at normal size with <50% physiologic collapse. A color flow and spectral Doppler study was performed and revealed: No aortic regurgitation. Trace mitral regurgitation. Trace tricuspid regurgitation. Tricuspid systolic velocities suggests peak right ventricular systolic pressure of 18 mmHg.
--- NOTE | 2020-06-24 04:00 | NUR ---
NURSE NOTES: complete bed bath back care and oral care done
[2020-06-24 05:11] LABS: HEMATOCRIT 36.6 % (37.0-47.0); HEMOGLOBIN 11.8 G/DL (12.0-16.0); MEAN CORPUSCULAR VOLUME 91 FL (80-99); PLATELET COUNT 219 K/UL (150-450); RED BLOOD COUNT 4.04 M/UL (4.20-5.40); RED CELL DISTRIBUTION WIDTH 11.9 % (11.6-14.8)
[2020-06-24 05:31] LABS: PHOSPHORUS 2.1 MG/DL (2.5-4.9)
[2020-06-24 05:47] LABS: ALANINE AMINOTRANSFERASE 41 U/L (12-78); ALBUMIN 1.9 G/DL (3.4-5.0); ALBUMIN/GLOBULIN RATIO 0.5 (1.0-2.7); ALKALINE PHOSPHATASE 74 U/L (46-116); ANION GAP 9 mmol/L (5-15); ASPARTATE AMINO TRANSFERASE 45 U/L (15-37); BILIRUBIN,TOTAL 0.9 MG/DL (0.2-1.0); BLOOD UREA NITROGEN 30 mg/dL (7-18); CALCIUM 7.5 MG/DL (8.5-10.1); CARBON DIOXIDE 23 MMOL/L (21-32); CHLORIDE 116 MMOL/L (98-107); CREATININE 0.7 MG/DL (0.55-1.30); POTASSIUM 3.6 MMOL/L (3.5-5.1); SODIUM 148 MMOL/L (136-145)
--- NOTE | 2020-06-24 06:00 | NUR ---
NURSE NOTES: bs [id number] insulin coverage coverage
[2020-06-24] MEDS: NovoLOG Insulin Flexpen SUBQ SCH ×4 (06:01→23:58)
--- NOTE | 2020-06-24 07:06 | Hematology/Onc Progress Note ---
Assessment/Plan Assessment/Plan Assessment and recs # Leukocytosis with Pneumonia due to COVID-19 virus -> wbc trend 15-->11-->10->17 --> ABX as per id ctx --> imaging does show pna --> anticoag recommended --> on remdesivir # Anemia of chronic disease --> hgb 12->10 --> r/o hemolysis # Elevated ddimer due to covid --> duplex legs -> LOVENOX sq # Covid19++ with Hypoxia -> steriods, abx per id # Renal insufficiency -> per renal care # Sepsis due to above --> abx, fluid resuscitation # Dvt ppx lovenox sq Appreciate consultation and mehran RN Subjective Allergies: Coded Allergies: No Known Allergies (Unverified , 06/17/20) All Systems: reviewed and negative except above Subjective 06/19 sleeping, comfortable, on bipap, meds have been reviewed 06/21 on bipap, labs have been reviewed, no major events 06/22 bipap labs reviewed, meds noted, no bleeding 06/23 bipap labs noted, no bleeding, meds reviewed, mehran rn 06/24 on vent, labs reviewed, meds reviewed Objective Objective Current Medications Medications (Trade) Dose Ordered Sig/Maya Route PRN Reason Start Time Stop Time Status Last Admin Dose Admin Acetaminophen (Tylenol) 500 mg Q4H PRN ORAL Mild Pain (Pain Scale 1-3) 06/18/20 00:15 07/18/20 00:14 Acetaminophen (Tylenol) 500 mg Q4H PRN ORAL Temp >100.5 06/18/20 00:15 07/18/20 00:14 Carvedilol (Coreg) 6.25 mg EVERY 12 HOURS ORAL 06/22/20 21:00 07/22/20 20:59 06/23/20 20:53 Ceftriaxone Sodium 1 gm/ Dextrose 55 ml @ 110 mls/hr Q24H IVPB 06/23/20 11:00 06/30/20 10:59 06/23/20 11:33 Dexamethasone Sodium Phosphate (Decadron 10mg/ ml Inj) 6 mg DAILY IV 06/18/20 09:45 06/27/20 09:01 06/23/20 10:34 Dextrose 1,000 ml @ 100 mls/hr Q10H IV 06/19/20 13:30 07/19/20 13:29 06/24/20 01:06 Dextrose (Dextrose 50%) 25 ml Q30M PRN IV Hypoglycemia 06/18/20 14:15 09/16/20 14:14 Dextrose (Dextrose 50%) 50 ml Q30M PRN IV Hypoglycemia 06/18/20 14:15 09/16/20 14:14 Docusate Sodium (Colace) 100 mg THREE TIMES A DAY ORAL 06/18/20 13:00 07/18/20 12:59 06/22/20 18:40 Enoxaparin Sodium (Lovenox) 40 mg DAILY SUBQ 06/21/20 09:00 09/19/20 08:59 06/22/20 10:14 Haloperidol Lactate (Haldol) 10 mg Q6H PRN IM Agitation 06/23/20 11:30 08/07/20 11:29 06/23/20 11:34 Insulin Aspart (NovoLOG) while NPO Q6HR SUBQ 06/18/20 18:00 09/16/20 17:59 06/24/20 06:01 Midazolam HCl 50 mg/Sodium Chloride 100 ml @ 0 mls/hr Q24H PRN IV Agitation 06/23/20 12:30 06/25/20 12:29 06/24/20 02:03 Pantoprazole (Protonix) 40 mg EVERY 12 HOURS IVP 06/18/20 21:00 07/18/20 20:59 06/23/20 20:52 Last 24 Hour Vital Signs Date Time Temp Pulse Resp B/P (MAP) Pulse Ox O2 Delivery O2 Flow Rate FiO2 06/24/20 06:00 30 Mechanical Ventilator 100 06/24/20 06:00 88 33 102/67 (79) 91 06/24/20 05:15 85 31 115/71 (86) 92 06/24/20 05:00 28 Mechanical Ventilator 100 06/24/20 05:00 98.5 89 29 103/63 (76) 84 06/24/20 04:00 100.0 06/24/20 04:00 80 06/24/20 04:00 92 37 124/71 (88) 83 06/24/20 04:00 30 Mechanical Ventilator 100 06/24/20 04:00 Mechanical Ventilator Mechanical Ventilator 06/24/20 03:27 86 38 100 06/24/20 03:00 85 32 95/63 (74) 94 06/24/20 03:00 28 100 06/24/20 02:03 28 100 06/24/20 02:00 83 34 101/62 (75) 96 06/24/20 01:00 30 Mechanical Ventilator 100 06/24/20 01:00 82 32 100/64 (76) 86 06/24/20 00:00 82 27 104/70 (81) 87 06/24/20 00:00 Mechanical Ventilator Mechanical Ventilator 06/24/20 00:00 30 Mechanical Ventilator 100 06/24/20 00:00 74 06/24/20 00:00 100.0 06/23/20 23:20 97 37 100 06/23/20 23:00 98.8 83 30 94/56 (69) 100 06/23/20 23:00 28 Endotracheal Tube 100 06/23/20 22:00 Mechanical Ventilator Mechanical Ventilator 06/23/20 22:00 30 100 06/23/20 22:00 84 31 95/63 (74) 98 06/23/20 21:00 29 Mechanical Ventilator 100 06/23/20 21:00 86 29 88/53 (65) 94 06/23/20 20:53 88 91/56 06/23/20 20:00 97.8 90 30 86/50 (62) 93 06/23/20 20:00 83 06/23/20 20:00 Mechanical Ventilator Mechanical Ventilator 06/23/20 20:00 100.0 06/23/20 20:00 30 Mechanical Ventilator 100 06/23/20 19:10 81 32 100 06/23/20 19:00 28 Mechanical Ventilator 100 06/23/20 19:00 91 31 98/63 (75) 94 06/23/20 18:00 99 33 111/56 (74) 96 06/23/20 18:00 30 Mechanical Ventilator 100 06/23/20 17:00 31 Mechanical Ventilator 100 06/23/20 17:00 98 29 111/83 (92) 94 06/23/20 16:00 Mechanical Ventilator Mechanical Ventilator 06/23/20 16:00 99.5 95 27 100/65 (77) 96 06/23/20 16:00 29 Mechanical Ventilator 100 06/23/20 15:19 98 06/23/20 15:10 98 29 100 06/23/20 15:00 29 Mechanical Ventilator 100 06/23/20 15:00 98 26 104/61 (75) 94 06/23/20 14:00 27 Mechanical Ventilator 100 06/23/20 14:00 98 24 90/80 (83) 89 06/23/20 13:18 108 31 100 06/23/20 13:16 100.0 06/23/20 13:00 99.4 115 36 116/70 (85) 89 06/23/20 13:00 28 Mechanical Ventilator 100 06/23/20 12:45 32 Mechanical Ventilator 100 06/23/20 12:45 122 31 136/69 (91) 92 06/23/20 12:30 121 35 99/71 (80) 90 06/23/20 12:30 32 Mechanical Ventilator 100 06/23/20 12:15 34 Mechanical Ventilator 100 06/23/20 12:15 125 35 110/70 (83) 91 06/23/20 12:00 Mechanical Ventilator Mechanical Ventilator 06/23/20 12:00 125 06/23/20 12:00 35 Mechanical Ventilator 100 06/23/20 12:00 135 39 149/86 (107) 85 06/23/20 11:00 140 32 142/57 (85) 100 06/23/20 10:49 100.0 06/23/20 10:40 144 35 100 06/23/20 10:00 137 17 149/113 (125) 98 06/23/20 09:00 100.5 135 18 118/80 (93) 92 06/23/20 08:55 124 12 97 Mechanical Ventilator 100 06/23/20 08:55 124 12 100 06/23/20 08:55 Mechanical Ventilator Mechanical Ventilator 06/23/20 08:55 100.0 06/23/20 08:55 124 12 97 Mechanical Ventilator 100 06/23/20 08:30 126 06/23/20 08:30 High Flow O2 60.0 High Flow O2 60.0 06/23/20 08:30 106 24 138/77 (97) 86 06/23/20 08:00 127 42 77 06/23/20 07:44 73 High Flow 60.0 100 06/23/20 07:30 125 40 81 06/23/20 04:00 60.0 100 06/23/20 04:00 98.2 106 24 138/77 (97) 86 06/23/20 04:00 Bi-pap Bi-pap 2/2/21 04:00 106 06/23/20 03:23 86 High Flow 60.0 100 06/23/20 00:55 83 High Flow 60.0 100 06/23/20 00:55 108 26 83 High Flow 60.0 100 06/23/20 00:00 Bi-pap Bi-pap 06/23/20 00:00 123 06/23/20 00:00 98.2 130 28 162/99 (120) 92 06/23/20 00:00 60.0 100 06/22/20 23:05 90 Bi-Pap 100 06/22/20 22:06 137 124/75 06/22/20 21:15 111 40 85 100 06/22/20 20:07 111 40 89 100 06/22/20 20:00 Bi-pap Bi-pap 06/22/20 20:00 99.0 132 20 124/75 (91) 80 06/22/20 20:00 130 06/22/20 20:00 60.0 100 06/22/20 19:02 85 High Flow 60.0 100 06/22/20 16:00 60.0 100 06/22/20 16:00 100 06/22/20 16:00 98.2 98 25 139/80 (99) 100 06/22/20 16:00 Bi-pap 06/22/20 15:05 90 High Flow 60.0 100 06/22/20 13:34 102 143/80 06/22/20 12:30 90 High Flow 60.0 100 06/22/20 12:20 60.0 100 06/22/20 12:00 108 06/22/20 12:00 Bi-pap 06/22/20 12:00 98.1 113 41 141/90 (107) 100 06/22/20 10:42 108 30 92 100 06/22/20 08:00 Bi-pap 06/22/20 08:00 98.6 92 30 147/90 (109) 100 06/22/20 08:00 100.0 06/22/20 08:00 102 Intake and Output 06/23/20 06/24/20 19:00 07:00 Intake Total 1057.75 ml 1280 ml Output Total 1414 ml 775 ml Balance -356.25 ml 505 ml Intake IV Total 1057.75 ml 1280 ml Output Urine Total 1400 ml 740 ml Chest Tube Drainage Total 14 ml 35 ml # Bowel Movements 3 Labs Test 06/22/20 06:37 06/22/20 06:49 06/22/20 09:10 06/22/20 12:09 POC Whole Blood Glucose 143 MG/DL (74-106) 141 MG/DL (74-106) Arterial Blood pH 7.471 (7.350-7.450) Arterial Blood Partial Pressure CO2 29.8 mmHg (35.0-45.0) Arterial Blood Partial Pressure O2 58.5 mmHg (75.0-100.0) Arterial Blood HCO3 21.2 mmol/L (22.0-26.0) Arterial Blood Oxygen Saturation 91.2 % (95-100) Arterial Blood Base Excess -1.2 (-2-2) Amrit Test Positive White Blood Count 15.3 K/UL (4.8-10.8) Red Blood Count 4.80 M/UL (4.20-5.40) Hemoglobin 13.8 G/DL (12.0-16.0) Hematocrit 44.0 % (37.0-47.0) Mean Corpuscular Volume 92 FL (80-99) Mean Corpuscular Hemoglobin 28.8 PG (27.0-31.0) Mean Corpuscular Hemoglobin Concent 31.4 G/DL (32.0-36.0) Red Cell Distribution Width 12.4 % (11.6-14.8) Platelet Count 334 K/UL (150-450) Mean Platelet Volume 7.5 FL (6.5-10.1) Neutrophils (%) (Auto) % (45.0-75.0) Lymphocytes (%) (Auto) % (20.0-45.0) Monocytes (%) (Auto) % (1.0-10.0) Eosinophils (%) (Auto) % (0.0-3.0) Basophils (%) (Auto) % (0.0-2.0) Differential Total Cells Counted 100 Neutrophils % (Manual) 95 % (45-75) Lymphocytes % (Manual) 4 % (20-45) Monocytes % (Manual) 1 % (1-10) Eosinophils % (Manual) 0 % (0-3) Basophils % (Manual) 0 % (0-2) Band Neutrophils 0 % (0-8) Platelet Estimate Adequate Platelet Morphology Normal Red Blood Cell Morphology Normal Sodium Level 155 MMOL/L (136-145) Potassium Level 4.0 MMOL/L (3.5-5.1) Chloride Level 120 MMOL/L (98-107) Carbon Dioxide Level 26 MMOL/L (21-32) Anion Gap 9 mmol/L (5-15) Blood Urea Nitrogen 31 mg/dL (7-18) Creatinine 0.8 MG/DL (0.55-1.30) Estimat Glomerular Filtration Rate > 60 mL/min (>60) Glucose Level 150 MG/DL (74-106) Calcium Level 8.5 MG/DL (8.5-10.1) Total Bilirubin 0.9 MG/DL (0.2-1.0) Direct Bilirubin 0.2 MG/DL (0.0-0.3) Aspartate Amino Transf (AST/SGOT) 56 U/L (15-37) Alanine Aminotransferase (ALT/SGPT) 48 U/L (12-78) Alkaline Phosphatase 73 U/L (46-116) Total Protein 7.4 G/DL (6.4-8.2) Albumin 2.5 G/DL (3.4-5.0) Globulin 4.9 g/dL Albumin/Globulin Ratio 0.5 (1.0-2.7) Test 06/22/20 13:35 06/22/20 19:09 06/23/20 01:25 06/23/20 01:29 Arterial Blood pH 7.522 (7.350-7.450) 7.369 (7.350-7.450) 7.488 (7.350-7.450) Arterial Blood Partial Pressure CO2 25.3 mmHg (35.0-45.0) 29.3 mmHg (35.0-45.0) 30.6 mmHg (35.0-45.0) Arterial Blood Partial Pressure O2 54.9 mmHg (75.0-100.0) 47.7 mmHg (75.0-100.0) 40.8 mmHg (75.0-100.0) Arterial Blood HCO3 20.3 mmol/L (22.0-26.0) 16.5 mmol/L (22.0-26.0) 22.7 mmol/L (22.0-26.0) Arterial Blood Oxygen Saturation 91.2 % (95-100) 79.3 % (95-100) 78.4 % (95-100) Arterial Blood Base Excess -1.0 (-2-2) -7.3 (-2-2) 0.3 (-2-2) Amrit Test Positive Positive Positive POC Whole Blood Glucose 144 MG/DL (74-106) Test 06/23/20 03:20 06/23/20 05:40 06/23/20 07:44 06/23/20 08:00 Sodium Level 151 MMOL/L (136-145) 157 MMOL/L (136-145) Potassium Level 5.5 MMOL/L (3.5-5.1) 3.8 MMOL/L (3.5-5.1) Chloride Level 120 MMOL/L (98-107) 122 MMOL/L (98-107) Carbon Dioxide Level 17 MMOL/L (21-32) 24 MMOL/L (21-32) Anion Gap 14 mmol/L (5-15) 12 mmol/L (5-15) Blood Urea Nitrogen 31 mg/dL (7-18) 31 mg/dL (7-18) Creatinine 0.5 MG/DL (0.55-1.30) 0.9 MG/DL (0.55-1.30) Estimat Glomerular Filtration Rate > 60 mL/min (>60) > 60 mL/min (>60) Glucose Level 85 MG/DL (74-106) 105 MG/DL (74-106) Calcium Level 8.4 MG/DL (8.5-10.1) 8.5 MG/DL (8.5-10.1) Phosphorus Level 2.1 MG/DL (2.5-4.9) Magnesium Level 2.5 MG/DL (1.8-2.4) Total Bilirubin 1.1 MG/DL (0.2-1.0) Direct Bilirubin < 0.1 MG/DL (0.0-0.3) Aspartate Amino Transf (AST/SGOT) 110 U/L (15-37) Alanine Aminotransferase (ALT/SGPT) 49 U/L (12-78) Alkaline Phosphatase 90 U/L (46-116) Total Protein 7.3 G/DL (6.4-8.2) Albumin 2.2 G/DL (3.4-5.0) Globulin 5.1 g/dL Albumin/Globulin Ratio 0.4 (1.0-2.7) POC Whole Blood Glucose 107 MG/DL (74-106) Arterial Blood pH 7.454 (7.350-7.450) Arterial Blood Partial Pressure CO2 32.4 mmHg (35.0-45.0) Arterial Blood Partial Pressure O2 40.9 mmHg (75.0-100.0) Arterial Blood HCO3 22.2 mmol/L (22.0-26.0) Arterial Blood Oxygen Saturation 76.9 % (95-100) Arterial Blood Base Excess -0.8 (-2-2) Amrit Test Positive White Blood Count 22.4 K/UL (4.8-10.8) Red Blood Count 4.83 M/UL (4.20-5.40) Hemoglobin 13.9 G/DL (12.0-16.0) Hematocrit 44.1 % (37.0-47.0) Mean Corpuscular Volume 91 FL (80-99) Mean Corpuscular Hemoglobin 28.9 PG (27.0-31.0) Mean Corpuscular Hemoglobin Concent 31.6 G/DL (32.0-36.0) Red Cell Distribution Width 12.3 % (11.6-14.8) Platelet Count 350 K/UL (150-450) Mean Platelet Volume 7.4 FL (6.5-10.1) Neutrophils (%) (Auto) % (45.0-75.0) Lymphocytes (%) (Auto) % (20.0-45.0) Monocytes (%) (Auto) % (1.0-10.0) Eosinophils (%) (Auto) % (0.0-3.0) Basophils (%) (Auto) % (0.0-2.0) Differential Total Cells Counted 100 Neutrophils % (Manual) 97 % (45-75) Lymphocytes % (Manual) 2 % (20-45) Monocytes % (Manual) 1 % (1-10) Eosinophils % (Manual) 0 % (0-3) Basophils % (Manual) 0 % (0-2) Band Neutrophils 0 % (0-8) Platelet Estimate Adequate Platelet Morphology Normal Red Blood Cell Morphology Normal Lactic Acid Level 2.70 mmol/L (0.4-2.0) Troponin I 0.225 ng/mL (0.000-0.056) Pro-B-Type Natriuretic Peptide 655 pg/mL (0-125) Test 06/23/20 10:45 06/23/20 17:30 06/24/20 00:56 06/24/20 04:20 Arterial Blood pH 7.391 (7.350-7.450) 7.482 (7.350-7.450) Arterial Blood Partial Pressure CO2 37.1 mmHg (35.0-45.0) 30.4 mmHg (35.0-45.0) Arterial Blood Partial Pressure O2 41.6 mmHg (75.0-100.0) 50.8 mmHg (75.0-100.0) Arterial Blood HCO3 22.0 mmol/L (22.0-26.0) 22.2 mmol/L (22.0-26.0) Arterial Blood Oxygen Saturation 75.7 % (95-100) 87.0 % (95-100) Arterial Blood Base Excess -2.4 (-2-2) -0.4 (-2-2) Amrit Test Positive Positive Troponin I 0.120 ng/mL (0.000-0.056) 0.079 ng/mL (0.000-0.056) White Blood Count 17.0 K/UL (4.8-10.8) Red Blood Count 4.04 M/UL (4.20-5.40) Hemoglobin 11.8 G/DL (12.0-16.0) Hematocrit 36.6 % (37.0-47.0) Mean Corpuscular Volume 91 FL (80-99) Mean Corpuscular Hemoglobin 29.3 PG (27.0-31.0) Mean Corpuscular Hemoglobin Concent 32.3 G/DL (32.0-36.0) Red Cell Distribution Width 11.9 % (11.6-14.8) Platelet Count 219 K/UL (150-450) Mean Platelet Volume 7.7 FL (6.5-10.1) Neutrophils (%) (Auto) % (45.0-75.0) Lymphocytes (%) (Auto) % (20.0-45.0) Monocytes (%) (Auto) % (1.0-10.0) Eosinophils (%) (Auto) % (0.0-3.0) Basophils (%) (Auto) % (0.0-2.0) Sodium Level 148 MMOL/L (136-145) Potassium Level 3.6 MMOL/L (3.5-5.1) Chloride Level 116 MMOL/L (98-107) Carbon Dioxide Level 23 MMOL/L (21-32) Anion Gap 9 mmol/L (5-15) Blood Urea Nitrogen 30 mg/dL (7-18) Creatinine 0.7 MG/DL (0.55-1.30) Estimat Glomerular Filtration Rate > 60 mL/min (>60) Glucose Level 247 MG/DL (74-106) Lactic Acid Level 2.40 mmol/L (0.4-2.0) Uric Acid 3.8 MG/DL (2.6-7.2) Calcium Level 7.5 MG/DL (8.5-10.1) Phosphorus Level 2.1 MG/DL (2.5-4.9) Magnesium Level 2.2 MG/DL (1.8-2.4) Total Bilirubin 0.9 MG/DL (0.2-1.0) Aspartate Amino Transf (AST/SGOT) 45 U/L (15-37) Alanine Aminotransferase (ALT/SGPT) 41 U/L (12-78) Alkaline Phosphatase 74 U/L (46-116) C-Reactive Protein, Quantitative 8.3 mg/dL (0.00-0.90) Pro-B-Type Natriuretic Peptide 219 pg/mL (0-125) Total Protein 5.8 G/DL (6.4-8.2) Albumin 1.9 G/DL (3.4-5.0) Globulin 3.9 g/dL Albumin/Globulin Ratio 0.5 (1.0-2.7) Height (Feet): 5 Height (Inches): 2.00 Weight (Pounds): 138 Objective Physical Exam Vitals: reviewed, abnormal - Interpreted as low by me General: GCS 15 - Sometimes slightly confused, non-toxic, mild distress Head: normocephalic, moist mucus membranes Neck: supple Respiratory: no retraction, no accessory muscle use, respiratory distress - Minimal with tachypnea, crackles Cardiovascular: regular rate, rhythm, no edema Gastrointestinal: normal inspection, non tender, soft Genitourinary: no CVA tenderness Musculoskeletal: back normal Neurologic: alert, oriented x3, grossly normal Psychiatric: mood/affect normal - sometimes confused Skin: no rash, warm/dry Jj Swann MD Jun 24, 2020 07:06
--- NOTE | 2020-06-24 07:37 | NUR ---
NURSE HAND-OFF REPORT: Latest Vital Signs: Temperature 98.5 , Pulse 89 , B/P 101 /65 , Respiratory Rate 28 , O2 SAT 92 , Mechanical Ventilator, O2 Flow Rate . Vital Sign Comment: EKG Rhythm: Sinus Rhythm Rhythm change?: N MD Notified?: N - MD Response: Latest Carney Fall Score: 45 Fall Risk: High Risk Safety Measures: Call light Within Reach, Bed Alarm Zone 2, Side Rails Side Rails x3, Bed position Low and Locked. Fall Precautions: Yellow Socks Yellow Gown Door Sign Patient Fall Education Report given to kay woodward using sbar.
--- NOTE | 2020-06-24 07:38 | NUR ---
NURSE NOTES: Report received from NORMAN Chisholm. Patient is sedated in bed. RASS -2. Patient is impulsive, trying to reach ETT. Continued bilateral soft wrist restraints. SR on automobile glass technician. ETT 7.0/22cm at lip line. AC 12, TV 500, FiO2 100%, P 5. O2 sat 87-93%. Subcutaneous emphysema is worse and tight. It is on bilateral upper chest, neck, lower face, bilateral arms. Will notify MD. Bilateral chest tubes are in place, connected to low continuos suction as ordered. No air leak. OGT in place and kept NPO as ordered. Martin in place draining to gravity. IV to left hand G20 and right AC 20 patent and asymptomatic. D5W is running at 100cc/hr. Patient is on Versed at 4mg/hr. Bed in lowest position. Side rail up x3. Will resume plan of care.
[2020-06-24] MEDS: Pantoprazole Inj IVP SCH ×2 (09:05→20:48)
[2020-06-24] MEDS: Enoxaparin 40mg Inj SUBQ SCH (09:06)
[2020-06-24] MEDS: dexAMETHasone 10mg/ml Inj IV SCH (09:06)
[2020-06-24] MEDS: Carvedilol 6.25mg Tab ORAL SCH ×2 (09:07→20:48)
[2020-06-24] MEDS: Docusate 100mg cap ORAL SCH ×3 (09:08→17:50)
--- NOTE | 2020-06-24 09:12 | NUR ---
CASE MANAGEMENT:REVIEW 06/24/20 SI: COVID PNA. HYPOXIA ~ INTUBATED 98.5 89 36 126/75 89% ON VENT SUPPORT W/100% FIO2 WBC+17.0 BUN+30 TROPONIN(+)0.079 IS: VERSED GTT IV ROCEPHIN Q24 COREG NG Q12 IV DECADRON QD IVF@100/HR IV PROTONIX Q12 LOVENOX SQ Q12 : ICU STATUS DCP: FROM HOME PLAN: COMPLETED REMDESIVIR ~ WEAN OXYGEN WHEN ABLE
--- NOTE | 2020-06-24 09:38 | NUR ---
NURSE NOTES: Notified DR Frazier that subcutaneous emphysema is worse and tight and it is on upper chest, neck, lower face, and bilateral arm area. No new orders.
--- NOTE | 2020-06-24 09:54 | NUR ---
NURSE NOTES: Called and left a message to Dr Sewell regarding subcutaneous emphysema. Awaiting call back for new orders.
--- NOTE | 2020-06-24 10:46 | Pulmonology Progress Note ---
Subjective ROS Limited/Unobtainable: Yes Interval Events: Remains intubated Constitutional: Reports: fever, other - T=100.5, transferred to ICU HEENT: Repors: no symptoms Respiratory: Reports: shortness of breath Cardiovascular: Reports: no symptoms Gastrointestinal/Abdominal: Reports: no symptoms Allergies: Coded Allergies: No Known Allergies (Unverified , 06/17/20) All Systems: reviewed and negative except above Objective Last 24 Hour Vital Signs Date Time Temp Pulse Resp B/P (MAP) Pulse Ox O2 Delivery O2 Flow Rate FiO2 06/24/20 10:00 98 29 111/70 (84) 83 06/24/20 09:07 95 110/69 06/24/20 09:00 99.4 94 34 110/69 (83) 89 06/24/20 08:00 Mechanical Ventilator Mechanical Ventilator 06/24/20 08:00 36 Mechanical Ventilator 100 06/24/20 08:00 89 36 126/75 (92) 89 06/24/20 08:00 100.0 06/24/20 07:00 28 Mechanical Ventilator 100 06/24/20 07:00 89 35 101/65 (77) 92 06/24/20 06:00 30 Mechanical Ventilator 100 06/24/20 06:00 88 33 102/67 (79) 91 06/24/20 05:15 85 31 115/71 (86) 92 06/24/20 05:00 28 Mechanical Ventilator 100 06/24/20 05:00 98.5 89 29 103/63 (76) 84 06/24/20 04:00 100.0 06/24/20 04:00 80 06/24/20 04:00 92 37 124/71 (88) 83 06/24/20 04:00 30 Mechanical Ventilator 100 06/24/20 04:00 Mechanical Ventilator Mechanical Ventilator 06/24/20 03:27 86 38 100 06/24/20 03:00 85 32 95/63 (74) 94 06/24/20 03:00 28 100 06/24/20 02:03 28 100 06/24/20 02:00 83 34 101/62 (75) 96 06/24/20 01:00 30 Mechanical Ventilator 100 06/24/20 01:00 82 32 100/64 (76) 86 06/24/20 00:00 82 27 104/70 (81) 87 06/24/20 00:00 Mechanical Ventilator Mechanical Ventilator 06/24/20 00:00 30 Mechanical Ventilator 100 06/24/20 00:00 74 06/24/20 00:00 100.0 06/23/20 23:20 97 37 100 06/23/20 23:00 98.8 83 30 94/56 (69) 100 06/23/20 23:00 28 Endotracheal Tube 100 06/23/20 22:00 Mechanical Ventilator Mechanical Ventilator 06/23/20 22:00 30 100 06/23/20 22:00 84 31 95/63 (74) 98 06/23/20 21:00 29 Mechanical Ventilator 100 06/23/20 21:00 86 29 88/53 (65) 94 06/23/20 20:53 88 91/56 06/23/20 20:00 97.8 90 30 86/50 (62) 93 06/23/20 20:00 83 06/23/20 20:00 Mechanical Ventilator Mechanical Ventilator 06/23/20 20:00 100.0 06/23/20 20:00 30 Mechanical Ventilator 100 06/23/20 19:10 81 32 100 06/23/20 19:00 28 Mechanical Ventilator 100 06/23/20 19:00 91 31 98/63 (75) 94 06/23/20 18:00 99 33 111/56 (74) 96 06/23/20 18:00 30 Mechanical Ventilator 100 06/23/20 17:00 31 Mechanical Ventilator 100 06/23/20 17:00 98 29 111/83 (92) 94 06/23/20 16:00 Mechanical Ventilator Mechanical Ventilator 06/23/20 16:00 99.5 95 27 100/65 (77) 96 06/23/20 16:00 29 Mechanical Ventilator 100 06/23/20 15:19 98 06/23/20 15:10 98 29 100 06/23/20 15:00 29 Mechanical Ventilator 100 06/23/20 15:00 98 26 104/61 (75) 94 06/23/20 14:00 27 Mechanical Ventilator 100 06/23/20 14:00 98 24 90/80 (83) 89 06/23/20 13:18 108 31 100 06/23/20 13:16 100.0 06/23/20 13:00 99.4 115 36 116/70 (85) 89 06/23/20 13:00 28 Mechanical Ventilator 100 06/23/20 12:45 32 Mechanical Ventilator 100 06/23/20 12:45 122 31 136/69 (91) 92 06/23/20 12:30 121 35 99/71 (80) 90 06/23/20 12:30 32 Mechanical Ventilator 100 06/23/20 12:15 34 Mechanical Ventilator 100 06/23/20 12:15 125 35 110/70 (83) 91 06/23/20 12:00 Mechanical Ventilator Mechanical Ventilator 06/23/20 12:00 125 06/23/20 12:00 35 Mechanical Ventilator 100 06/23/20 12:00 135 39 149/86 (107) 85 06/23/20 11:00 140 32 142/57 (85) 100 06/23/20 10:49 100.0 Intake and Output 06/23/20 06/24/20 19:00 07:00 Intake Total 1057.75 ml 1388 ml Output Total 1414 ml 825 ml Balance -356.25 ml 563 ml Intake IV Total 1057.75 ml 1388 ml Output Urine Total 1400 ml 790 ml Chest Tube Drainage Total 14 ml 35 ml # Bowel Movements 3 General Appearance: no acute distress HEENT: atraumatic Respiratory: crackles/rales Cardiovascular: normal rate Abdomen: soft, non tender Laboratory Tests 06/23/20 17:30: Troponin I 0.120H 06/24/20 00:56: Arterial Blood pH 7.482H, Arterial Blood Partial Pressure CO2 30.4L, Arterial Blood Partial Pressure O2 50.8L, Arterial Blood HCO3 22.2, Arterial Blood Oxygen Saturation 87.0*L, Arterial Blood Base Excess -0.4, Amrit Test Positive 06/24/20 04:20: Troponin I 0.079H, White Blood Count 17.0H, Red Blood Count 4.04L, Hemoglobin 11.8L, Hematocrit 36.6L, Mean Corpuscular Volume 91, Mean Corpuscular Hemoglobin 29.3, Mean Corpuscular Hemoglobin Concent 32.3, Red Cell Distribution Width 11.9, Platelet Count 219, Mean Platelet Volume 7.7, Neutrophils (%) (Auto) , Lymphocytes (%) (Auto) , Monocytes (%) (Auto) , Eosinophils (%) (Auto) , Basophils (%) (Auto) , Differential Total Cells Counted 100, Neutrophils % (Manual) 96H, Lymphocytes % (Manual) 3L, Monocytes % (Manual) 1, Eosinophils % (Manual) 0, Basophils % (Manual) 0, Band Neutrophils 0, Platelet Estimate Adequate, Platelet Morphology Normal, Red Blood Cell Morphology Normal, Sodium Level 148H, Potassium Level 3.6, Chloride Level 116H, Carbon Dioxide Level 23, Anion Gap 9, Blood Urea Nitrogen 30H, Creatinine 0.7, Estimat Glomerular Filtration Rate > 60, Glucose Level 247#H, Lactic Acid Level 2.40H, Uric Acid 3.8, Calcium Level 7.5L, Phosphorus Level 2.1L, Magnesium Level 2.2, Total Bilirubin 0.9, Aspartate Amino Transf (AST/SGOT) 45H, Alanine Aminotransferase (ALT/SGPT) 41, Alkaline Phosphatase 74, C-Reactive Protein, Quantitative 8.3H, Pro-B-Type Natriuretic Peptide 219H, Total Protein 5.8L, Albumin 1.9L, Globulin 3.9, Albumin/Globulin Ratio 0.5L Current Medications Medications (Trade) Dose Ordered Sig/Maya Route PRN Reason Start Time Stop Time Status Last Admin Dose Admin Acetaminophen (Tylenol) 500 mg Q4H PRN ORAL Mild Pain (Pain Scale 1-3) 06/18/20 00:15 07/18/20 00:14 Acetaminophen (Tylenol) 500 mg Q4H PRN ORAL Temp >100.5 06/18/20 00:15 07/18/20 00:14 Carvedilol (Coreg) 6.25 mg EVERY 12 HOURS ORAL 06/22/20 21:00 07/22/20 20:59 06/24/20 09:07 Ceftriaxone Sodium 1 gm/ Dextrose 55 ml @ 110 mls/hr Q24H IVPB 06/23/20 11:00 06/30/20 10:59 06/23/20 11:33 Dexamethasone Sodium Phosphate (Decadron 10mg/ ml Inj) 6 mg DAILY IV 06/18/20 09:45 06/27/20 09:01 06/24/20 09:06 Dextrose 1,000 ml @ 100 mls/hr Q10H IV 06/19/20 13:30 07/19/20 13:29 06/24/20 01:06 Dextrose (Dextrose 50%) 25 ml Q30M PRN IV Hypoglycemia 06/18/20 14:15 09/16/20 14:14 Dextrose (Dextrose 50%) 50 ml Q30M PRN IV Hypoglycemia 06/18/20 14:15 09/16/20 14:14 Docusate Sodium (Colace) 100 mg THREE TIMES A DAY ORAL 06/18/20 13:00 07/18/20 12:59 06/24/20 09:08 Enoxaparin Sodium (Lovenox) 40 mg DAILY SUBQ 06/21/20 09:00 09/19/20 08:59 06/24/20 09:06 Haloperidol Lactate (Haldol) 10 mg Q6H PRN IM Agitation 06/23/20 11:30 08/07/20 11:29 06/23/20 11:34 Insulin Aspart (NovoLOG) while NPO Q6HR SUBQ 06/18/20 18:00 09/16/20 17:59 06/24/20 06:01 Midazolam HCl 50 mg/Sodium Chloride 100 ml @ 0 mls/hr Q24H PRN IV Agitation 06/23/20 12:30 06/25/20 12:29 06/24/20 02:03 Pantoprazole (Protonix) 40 mg EVERY 12 HOURS IVP 06/18/20 21:00 07/18/20 20:59 06/24/20 09:05 Potassium Phosphate 20 mm/ Sodium Chloride 281.6667 ml @ 46.944 m... ONCE ONCE IV 06/24/20 12:00 06/24/20 17:59 Assessment/Plan Assessment/Plan 1. COVID-19 pneumonia - Desaturation overnight on NRB + hi flow; ABG worse; now intubated and transferred to ICU -On Decadron, s/p remdesivir 2. Leukocytosis -Likely secondary to #1 -WBC improving 3. Elevated D-dimer -Venous duplex ultrasound negative for DVT -Was on full dose Lovenox, switched to 40 subcu QD for DVT prophylaxis 4. Renal insufficiency -On IV fluids - nephro following 5. Anemia of chronic disease -Hematology oncology following 6. Sepsis -Status post antibiotics, fluid resuscitation 7. Pneumothorax 06/22/20 - b/l subcutaneous emphysema, pneumomediastinum, probable small left pneumothorax & ? trace right pneumothorax. - CXR worse; has bilateral PTX - placed CT by surgery (bilateral) - will decrease PEEP and VT; has worsening subcut emphysema Charlie Sewell MD Jun 24, 2020 10:46
--- NOTE | 2020-06-24 11:00 | Nephrology Progress Note ---
Assessment/Plan Problem List: (1) LEONARDO (acute kidney injury) (2) Dehydration (3) DMII (diabetes mellitus, type 2) (4) Pneumonia due to COVID-19 virus (5) Hypoxia Assessment 70-year-old female presents with COVID-19 pneumonia and hypoxia On admission has BUN of 77 and creatinine of 1.6. Renal failure most likely prerenal and dehydration with possible underlying chronic kidney disease Patient has elevated inflammatory markers Hypoalbuminemia Electrolyte abnormalities Hyperglycemia Plan June 24: Patient in ICU. Intubated. Has bilateral chest tube. Labs reviewed. Renal parameters stable. Low phosphorus addressed. Continue per consultants. Full code. Poor prognosis. June 23: Patient in ICU. Intubated. Due for insertion of a chest tube. Has pneumothorax. Renal parameters are stable. Serum sodium rising. Will adjust IV fluid. Continue per consultants. Patient full code. Prognosis poor. June 22: Labs reviewed. Remains on BiPAP which is not changed to high flow oxygen due to pneumothorax found on chest x-ray. Serum sodium 155. Continues on D5W. Electrolytes within normal limits. Check 2D echocardiogram. Coreg for blood pressure and heart rate. June 21: Status quo. On BiPAP. Full code. Serum sodium 153. Continue D5W. Continue to monitor electrolytes. Continue per consultants. June 20: Patient full code. On BiPAP. Labs reviewed. Serum sodium rising. Will increase D5W to 75 cc an hour. Continue to monitor electrolytes. June 19: IV changed to D5W. Monitor blood sugar. Monitor electrolytes. Medication list reviewed. Patient is being treated for COVID-19 pneumonia. Patient is full code. Previously Pulmonary support IV antibiotics Slow hydration Avoid nephrotoxic Monitor renal parameters Per orders Subjective ROS Limited/Unobtainable: Yes Objective Objective Last 24 Hour Vital Signs Date Time Temp Pulse Resp B/P (MAP) Pulse Ox O2 Delivery O2 Flow Rate FiO2 06/24/20 10:00 35 Mechanical Ventilator 100 06/24/20 10:00 98 29 111/70 (84) 83 06/24/20 09:07 95 110/69 06/24/20 09:00 99.4 94 34 110/69 (83) 89 06/24/20 09:00 37 Mechanical Ventilator 100 06/24/20 08:00 Mechanical Ventilator Mechanical Ventilator 06/24/20 08:00 36 Mechanical Ventilator 100 06/24/20 08:00 89 36 126/75 (92) 89 06/24/20 08:00 100.0 06/24/20 07:00 28 Mechanical Ventilator 100 06/24/20 07:00 89 35 101/65 (77) 92 06/24/20 06:00 30 Mechanical Ventilator 100 06/24/20 06:00 88 33 102/67 (79) 91 06/24/20 05:15 85 31 115/71 (86) 92 06/24/20 05:00 28 Mechanical Ventilator 100 06/24/20 05:00 98.5 89 29 103/63 (76) 84 06/24/20 04:00 100.0 06/24/20 04:00 80 06/24/20 04:00 92 37 124/71 (88) 83 06/24/20 04:00 30 Mechanical Ventilator 100 06/24/20 04:00 Mechanical Ventilator Mechanical Ventilator 06/24/20 03:27 86 38 100 06/24/20 03:00 85 32 95/63 (74) 94 06/24/20 03:00 28 100 06/24/20 02:03 28 100 06/24/20 02:00 83 34 101/62 (75) 96 06/24/20 01:00 30 Mechanical Ventilator 100 06/24/20 01:00 82 32 100/64 (76) 86 06/24/20 00:00 82 27 104/70 (81) 87 06/24/20 00:00 Mechanical Ventilator Mechanical Ventilator 06/24/20 00:00 30 Mechanical Ventilator 100 06/24/20 00:00 74 06/24/20 00:00 100.0 06/23/20 23:20 97 37 100 06/23/20 23:00 98.8 83 30 94/56 (69) 100 06/23/20 23:00 28 Endotracheal Tube 100 06/23/20 22:00 Mechanical Ventilator Mechanical Ventilator 06/23/20 22:00 30 100 06/23/20 22:00 84 31 95/63 (74) 98 06/23/20 21:00 29 Mechanical Ventilator 100 06/23/20 21:00 86 29 88/53 (65) 94 06/23/20 20:53 88 91/56 06/23/20 20:00 97.8 90 30 86/50 (62) 93 06/23/20 20:00 83 06/23/20 20:00 Mechanical Ventilator Mechanical Ventilator 06/23/20 20:00 100.0 06/23/20 20:00 30 Mechanical Ventilator 100 06/23/20 19:10 81 32 100 06/23/20 19:00 28 Mechanical Ventilator 100 06/23/20 19:00 91 31 98/63 (75) 94 06/23/20 18:00 99 33 111/56 (74) 96 06/23/20 18:00 30 Mechanical Ventilator 100 06/23/20 17:00 31 Mechanical Ventilator 100 06/23/20 17:00 98 29 111/83 (92) 94 06/23/20 16:00 Mechanical Ventilator Mechanical Ventilator 06/23/20 16:00 99.5 95 27 100/65 (77) 96 06/23/20 16:00 29 Mechanical Ventilator 100 06/23/20 15:19 98 06/23/20 15:10 98 29 100 06/23/20 15:00 29 Mechanical Ventilator 100 06/23/20 15:00 98 26 104/61 (75) 94 06/23/20 14:00 27 Mechanical Ventilator 100 06/23/20 14:00 98 24 90/80 (83) 89 06/23/20 13:18 108 31 100 06/23/20 13:16 100.0 06/23/20 13:00 99.4 115 36 116/70 (85) 89 06/23/20 13:00 28 Mechanical Ventilator 100 06/23/20 12:45 32 Mechanical Ventilator 100 06/23/20 12:45 122 31 136/69 (91) 92 06/23/20 12:30 121 35 99/71 (80) 90 06/23/20 12:30 32 Mechanical Ventilator 100 06/23/20 12:15 34 Mechanical Ventilator 100 06/23/20 12:15 125 35 110/70 (83) 91 06/23/20 12:00 Mechanical Ventilator Mechanical Ventilator 06/23/20 12:00 125 06/23/20 12:00 35 Mechanical Ventilator 100 06/23/20 12:00 135 39 149/86 (107) 85 06/23/20 11:00 140 32 142/57 (85) 100 Intake and Output 06/23/20 06/24/20 19:00 07:00 Intake Total 1057.75 ml 1388 ml Output Total 1414 ml 825 ml Balance -356.25 ml 563 ml Intake IV Total 1057.75 ml 1388 ml Output Urine Total 1400 ml 790 ml Chest Tube Drainage Total 14 ml 35 ml # Bowel Movements 3 Laboratory Tests Test 06/23/20 17:30 06/24/20 00:56 06/24/20 04:20 Troponin I 0.120 ng/mL (0.000-0.056) 0.079 ng/mL (0.000-0.056) Arterial Blood pH 7.482 (7.350-7.450) Arterial Blood Partial Pressure CO2 30.4 mmHg (35.0-45.0) L Arterial Blood Partial Pressure O2 50.8 mmHg (75.0-100.0) L Arterial Blood HCO3 22.2 mmol/L (22.0-26.0) Arterial Blood Oxygen Saturation 87.0 % (95-100) *L Arterial Blood Base Excess -0.4 (-2-2) Amrit Test Positive White Blood Count 17.0 K/UL (4.8-10.8) H Red Blood Count 4.04 M/UL (4.20-5.40) L Hemoglobin 11.8 G/DL (12.0-16.0) L Hematocrit 36.6 % (37.0-47.0) L Mean Corpuscular Volume 91 FL (80-99) Mean Corpuscular Hemoglobin 29.3 PG (27.0-31.0) Mean Corpuscular Hemoglobin Concent 32.3 G/DL (32.0-36.0) Red Cell Distribution Width 11.9 % (11.6-14.8) Platelet Count 219 K/UL (150-450) Mean Platelet Volume 7.7 FL (6.5-10.1) Neutrophils (%) (Auto) % (45.0-75.0) Lymphocytes (%) (Auto) % (20.0-45.0) Monocytes (%) (Auto) % (1.0-10.0) Eosinophils (%) (Auto) % (0.0-3.0) Basophils (%) (Auto) % (0.0-2.0) Differential Total Cells Counted 100 Neutrophils % (Manual) 96 % (45-75) H Lymphocytes % (Manual) 3 % (20-45) L Monocytes % (Manual) 1 % (1-10) Eosinophils % (Manual) 0 % (0-3) Basophils % (Manual) 0 % (0-2) Band Neutrophils 0 % (0-8) Platelet Estimate Adequate Platelet Morphology Normal Red Blood Cell Morphology Normal Sodium Level 148 MMOL/L (136-145) H Potassium Level 3.6 MMOL/L (3.5-5.1) Chloride Level 116 MMOL/L (98-107) H Carbon Dioxide Level 23 MMOL/L (21-32) Anion Gap 9 mmol/L (5-15) Blood Urea Nitrogen 30 mg/dL (7-18) H Creatinine 0.7 MG/DL (0.55-1.30) Estimat Glomerular Filtration Rate > 60 mL/min (>60) Glucose Level 247 MG/DL (74-106) #H Lactic Acid Level 2.40 mmol/L (0.4-2.0) H Uric Acid 3.8 MG/DL (2.6-7.2) Calcium Level 7.5 MG/DL (8.5-10.1) L Phosphorus Level 2.1 MG/DL (2.5-4.9) L Magnesium Level 2.2 MG/DL (1.8-2.4) Total Bilirubin 0.9 MG/DL (0.2-1.0) Aspartate Amino Transf (AST/SGOT) 45 U/L (15-37) H Alanine Aminotransferase (ALT/SGPT) 41 U/L (12-78) Alkaline Phosphatase 74 U/L (46-116) C-Reactive Protein, Quantitative 8.3 mg/dL (0.00-0.90) H Pro-B-Type Natriuretic Peptide 219 pg/mL (0-125) H Total Protein 5.8 G/DL (6.4-8.2) L Albumin 1.9 G/DL (3.4-5.0) L Globulin 3.9 g/dL Albumin/Globulin Ratio 0.5 (1.0-2.7) L Laboratory Tests 06/23/20 17:30: Troponin I 0.120H 06/24/20 00:56: Arterial Blood pH 7.482H, Arterial Blood Partial Pressure CO2 30.4L, Arterial Blood Partial Pressure O2 50.8L, Arterial Blood HCO3 22.2, Arterial Blood Oxygen Saturation 87.0*L, Arterial Blood Base Excess -0.4, Amrit Test Positive 2/3/21 04:20: Troponin I 0.079H, White Blood Count 17.0H, Red Blood Count 4.04L, Hemoglobin 11.8L, Hematocrit 36.6L, Mean Corpuscular Volume 91, Mean Corpuscular Hemoglobin 29.3, Mean Corpuscular Hemoglobin Concent 32.3, Red Cell Distribution Width 11.9, Platelet Count 219, Mean Platelet Volume 7.7, Neutrophils (%) (Auto) , Lymphocytes (%) (Auto) , Monocytes (%) (Auto) , Eosinophils (%) (Auto) , Basophils (%) (Auto) , Differential Total Cells Counted 100, Neutrophils % (Manual) 96H, Lymphocytes % (Manual) 3L, Monocytes % (Manual) 1, Eosinophils % (Manual) 0, Basophils % (Manual) 0, Band Neutrophils 0, Platelet Estimate Adequate, Platelet Morphology Normal, Red Blood Cell Morphology Normal, Sodium Level 148H, Potassium Level 3.6, Chloride Level 116H, Carbon Dioxide Level 23, Anion Gap 9, Blood Urea Nitrogen 30H, Creatinine 0.7, Estimat Glomerular Filtration Rate > 60, Glucose Level 247#H, Lactic Acid Level 2.40H, Uric Acid 3.8, Calcium Level 7.5L, Phosphorus Level 2.1L, Magnesium Level 2.2, Total Bilirubin 0.9, Aspartate Amino Transf (AST/SGOT) 45H, Alanine Aminotransferase (ALT/SGPT) 41, Alkaline Phosphatase 74, C-Reactive Protein, Quantitative 8.3H, Pro-B-Type Natriuretic Peptide 219H, Total Protein 5.8L, Albumin 1.9L, Globulin 3.9, Albumin/Globulin Ratio 0.5L Height (Feet): 5 Height (Inches): 2.00 Weight (Pounds): 138 General Appearance: no apparent distress, other - Subcutaneous emphysema extended to the neck and face EENT: other - Intubated on ventilator Neck: other - Subcutaneous emphysema Cardiovascular: tachycardia Respiratory/Chest: decreased breath sounds, other - Has bilateral chest tube Abdomen: distended Raza De Jesus MD Jun 24, 2020 11:00
--- NOTE | 2020-06-24 11:04 | NUR ---
NURSE NOTES: Vent setting changed as ordered by RT. O2 sat 87-91%. Dr Miller is aware.
--- NOTE | 2020-06-24 11:50 | Infectious Diseases Prog Note ---
Assessment/Plan Assessment/Plan A; Sepsis COVID19 pneumonia Hypoxic respiratory failure Acute kidney injury, resolving Hyperglycemia, DM type 2 Bilateral pneumothorax Leukocytosis P; Finished Remdesivir course Continue Dexamethasone Continue Rocephin Subjective ROS Limited/Unobtainable: Yes Neurologic: Reports: other - sedated Allergies: Coded Allergies: No Known Allergies (Unverified , 06/17/20) Objective Last 24 Hour Vital Signs Date Time Temp Pulse Resp B/P (MAP) Pulse Ox O2 Delivery O2 Flow Rate FiO2 06/24/20 11:04 100.0 06/24/20 11:00 29 Mechanical Ventilator 100 06/24/20 11:00 88 35 113/98 (103) 85 06/24/20 10:00 35 Mechanical Ventilator 100 06/24/20 10:00 98 29 111/70 (84) 83 06/24/20 09:07 95 110/69 06/24/20 09:00 99.4 94 34 110/69 (83) 89 06/24/20 09:00 37 Mechanical Ventilator 100 06/24/20 08:00 Mechanical Ventilator Mechanical Ventilator 06/24/20 08:00 36 Mechanical Ventilator 100 06/24/20 08:00 89 36 126/75 (92) 89 06/24/20 08:00 100.0 06/24/20 07:00 28 Mechanical Ventilator 100 06/24/20 07:00 89 35 101/65 (77) 92 06/24/20 06:00 30 Mechanical Ventilator 100 06/24/20 06:00 88 33 102/67 (79) 91 06/24/20 05:15 85 31 115/71 (86) 92 06/24/20 05:00 28 Mechanical Ventilator 100 06/24/20 05:00 98.5 89 29 103/63 (76) 84 06/24/20 04:00 100.0 06/24/20 04:00 80 06/24/20 04:00 92 37 124/71 (88) 83 06/24/20 04:00 30 Mechanical Ventilator 100 06/24/20 04:00 Mechanical Ventilator Mechanical Ventilator 06/24/20 03:27 86 38 100 06/24/20 03:00 85 32 95/63 (74) 94 06/24/20 03:00 28 100 06/24/20 02:03 28 100 06/24/20 02:00 83 34 101/62 (75) 96 06/24/20 01:00 30 Mechanical Ventilator 100 06/24/20 01:00 82 32 100/64 (76) 86 06/24/20 00:00 82 27 104/70 (81) 87 06/24/20 00:00 Mechanical Ventilator Mechanical Ventilator 06/24/20 00:00 30 Mechanical Ventilator 100 06/24/20 00:00 74 06/24/20 00:00 100.0 06/23/20 23:20 97 37 100 06/23/20 23:00 98.8 83 30 94/56 (69) 100 06/23/20 23:00 28 Endotracheal Tube 100 06/23/20 22:00 Mechanical Ventilator Mechanical Ventilator 06/23/20 22:00 30 100 06/23/20 22:00 84 31 95/63 (74) 98 06/23/20 21:00 29 Mechanical Ventilator 100 06/23/20 21:00 86 29 88/53 (65) 94 06/23/20 20:53 88 91/56 06/23/20 20:00 97.8 90 30 86/50 (62) 93 06/23/20 20:00 83 06/23/20 20:00 Mechanical Ventilator Mechanical Ventilator 06/23/20 20:00 100.0 06/23/20 20:00 30 Mechanical Ventilator 100 06/23/20 19:10 81 32 100 06/23/20 19:00 28 Mechanical Ventilator 100 06/23/20 19:00 91 31 98/63 (75) 94 06/23/20 18:00 99 33 111/56 (74) 96 06/23/20 18:00 30 Mechanical Ventilator 100 06/23/20 17:00 31 Mechanical Ventilator 100 06/23/20 17:00 98 29 111/83 (92) 94 06/23/20 16:00 Mechanical Ventilator Mechanical Ventilator 06/23/20 16:00 99.5 95 27 100/65 (77) 96 06/23/20 16:00 29 Mechanical Ventilator 100 06/23/20 15:19 98 06/23/20 15:10 98 29 100 06/23/20 15:00 29 Mechanical Ventilator 100 06/23/20 15:00 98 26 104/61 (75) 94 06/23/20 14:00 27 Mechanical Ventilator 100 06/23/20 14:00 98 24 90/80 (83) 89 06/23/20 13:18 108 31 100 06/23/20 13:16 100.0 06/23/20 13:00 99.4 115 36 116/70 (85) 89 06/23/20 13:00 28 Mechanical Ventilator 100 06/23/20 12:45 32 Mechanical Ventilator 100 06/23/20 12:45 122 31 136/69 (91) 92 06/23/20 12:30 121 35 99/71 (80) 90 06/23/20 12:30 32 Mechanical Ventilator 100 06/23/20 12:15 34 Mechanical Ventilator 100 06/23/20 12:15 125 35 110/70 (83) 91 06/23/20 12:00 Mechanical Ventilator Mechanical Ventilator 06/23/20 12:00 125 06/23/20 12:00 35 Mechanical Ventilator 100 06/23/20 12:00 135 39 149/86 (107) 85 Height (Feet): 5 Height (Inches): 2.00 Weight (Pounds): 138 HEENT: other - orally intubated Respiratory/Chest: other - on ventilator, [id number]%, bilateral chest tubes Cardiovascular: normal rate Abdomen: soft, non tender Extremities: no edema Skin: other - subcutanous emphysema Neurologic/Psychiatric: other - sedated Laboratory Tests Test 06/23/20 17:30 06/24/20 00:56 06/24/20 04:20 Troponin I 0.120 ng/mL (0.000-0.056) 0.079 ng/mL (0.000-0.056) Arterial Blood pH 7.482 (7.350-7.450) Arterial Blood Partial Pressure CO2 30.4 mmHg (35.0-45.0) L Arterial Blood Partial Pressure O2 50.8 mmHg (75.0-100.0) L Arterial Blood HCO3 22.2 mmol/L (22.0-26.0) Arterial Blood Oxygen Saturation 87.0 % (95-100) *L Arterial Blood Base Excess -0.4 (-2-2) Amrit Test Positive White Blood Count 17.0 K/UL (4.8-10.8) H Red Blood Count 4.04 M/UL (4.20-5.40) L Hemoglobin 11.8 G/DL (12.0-16.0) L Hematocrit 36.6 % (37.0-47.0) L Mean Corpuscular Volume 91 FL (80-99) Mean Corpuscular Hemoglobin 29.3 PG (27.0-31.0) Mean Corpuscular Hemoglobin Concent 32.3 G/DL (32.0-36.0) Red Cell Distribution Width 11.9 % (11.6-14.8) Platelet Count 219 K/UL (150-450) Mean Platelet Volume 7.7 FL (6.5-10.1) Neutrophils (%) (Auto) % (45.0-75.0) Lymphocytes (%) (Auto) % (20.0-45.0) Monocytes (%) (Auto) % (1.0-10.0) Eosinophils (%) (Auto) % (0.0-3.0) Basophils (%) (Auto) % (0.0-2.0) Differential Total Cells Counted 100 Neutrophils % (Manual) 96 % (45-75) H Lymphocytes % (Manual) 3 % (20-45) L Monocytes % (Manual) 1 % (1-10) Eosinophils % (Manual) 0 % (0-3) Basophils % (Manual) 0 % (0-2) Band Neutrophils 0 % (0-8) Platelet Estimate Adequate Platelet Morphology Normal Red Blood Cell Morphology Normal Sodium Level 148 MMOL/L (136-145) H Potassium Level 3.6 MMOL/L (3.5-5.1) Chloride Level 116 MMOL/L (98-107) H Carbon Dioxide Level 23 MMOL/L (21-32) Anion Gap 9 mmol/L (5-15) Blood Urea Nitrogen 30 mg/dL (7-18) H Creatinine 0.7 MG/DL (0.55-1.30) Estimat Glomerular Filtration Rate > 60 mL/min (>60) Glucose Level 247 MG/DL (74-106) #H Lactic Acid Level 2.40 mmol/L (0.4-2.0) H Uric Acid 3.8 MG/DL (2.6-7.2) Calcium Level 7.5 MG/DL (8.5-10.1) L Phosphorus Level 2.1 MG/DL (2.5-4.9) L Magnesium Level 2.2 MG/DL (1.8-2.4) Total Bilirubin 0.9 MG/DL (0.2-1.0) Aspartate Amino Transf (AST/SGOT) 45 U/L (15-37) H Alanine Aminotransferase (ALT/SGPT) 41 U/L (12-78) Alkaline Phosphatase 74 U/L (46-116) C-Reactive Protein, Quantitative 8.3 mg/dL (0.00-0.90) H Pro-B-Type Natriuretic Peptide 219 pg/mL (0-125) H Total Protein 5.8 G/DL (6.4-8.2) L Albumin 1.9 G/DL (3.4-5.0) L Globulin 3.9 g/dL Albumin/Globulin Ratio 0.5 (1.0-2.7) L Current Medications Medications (Trade) Dose Ordered Sig/Maya Route PRN Reason Start Time Stop Time Status Last Admin Dose Admin Acetaminophen (Tylenol) 500 mg Q4H PRN ORAL Mild Pain (Pain Scale 1-3) 06/18/20 00:15 07/18/20 00:14 Acetaminophen (Tylenol) 500 mg Q4H PRN ORAL Temp >100.5 06/18/20 00:15 07/18/20 00:14 Carvedilol (Coreg) 6.25 mg EVERY 12 HOURS ORAL 06/22/20 21:00 07/22/20 20:59 06/24/20 09:07 Ceftriaxone Sodium 1 gm/ Dextrose 55 ml @ 110 mls/hr Q24H IVPB 06/23/20 11:00 06/30/20 10:59 06/23/20 11:33 Dexamethasone Sodium Phosphate (Decadron 10mg/ ml Inj) 6 mg DAILY IV 06/18/20 09:45 06/27/20 09:01 06/24/20 09:06 Dextrose 1,000 ml @ 100 mls/hr Q10H IV 06/19/20 13:30 07/19/20 13:29 06/24/20 01:06 Dextrose (Dextrose 50%) 25 ml Q30M PRN IV Hypoglycemia 06/18/20 14:15 09/16/20 14:14 Dextrose (Dextrose 50%) 50 ml Q30M PRN IV Hypoglycemia 06/18/20 14:15 09/16/20 14:14 Docusate Sodium (Colace) 100 mg THREE TIMES A DAY ORAL 06/18/20 13:00 07/18/20 12:59 06/24/20 09:08 Enoxaparin Sodium (Lovenox) 40 mg DAILY SUBQ 06/21/20 09:00 09/19/20 08:59 06/24/20 09:06 Haloperidol Lactate (Haldol) 10 mg Q6H PRN IM Agitation 06/23/20 11:30 08/07/20 11:29 06/23/20 11:34 Insulin Aspart (NovoLOG) while NPO Q6HR SUBQ 06/18/20 18:00 09/16/20 17:59 06/24/20 06:01 Midazolam HCl 50 mg/Sodium Chloride 100 ml @ 0 mls/hr Q24H PRN IV Agitation 06/23/20 12:30 06/25/20 12:29 06/24/20 02:03 Pantoprazole (Protonix) 40 mg EVERY 12 HOURS IVP 06/18/20 21:00 07/18/20 20:59 06/24/20 09:05 Potassium Phosphate 20 mm/ Sodium Chloride 281.6667 ml @ 46.944 m... ONCE ONCE IV 06/24/20 12:00 06/24/20 17:59 Raji Turpin MD Jun 24, 2020 11:50
[2020-06-24] MEDS ORDERED: Potassium Phosphate 20 MM in NS 275 ML IV ONE (12:00)
[2020-06-24] MEDS: cefTRIAXone 1 GM in D5W 55 ML IVPB SCH (12:00)
--- NOTE | 2020-06-24 12:06 | NUR ---
T[employer]PERATOR LOCKSTITCH NOTE PT is intubated on 06/23/2020. NICOLE attempted to call pt's son, Ethan Frost [phone], the call was not answered and vm was full. SW spoke w/ pt's daughter, Suyapa [phone] and obtained information. Pt resides w/ two sons and she has 8 children. Pt was ambulatory w/o DME and independent w/ ADLs. PT did not have a caregiver. PT does not have hx of mental illness and substance abuse. PT does not have AD/POA. Pt remains full code. Primary contact: Ethan Frost (son) [phone] Secondary contact: Car Frost (son) [phone]
[2020-06-24] MEDS: Acetaminophen 500mg (ES) tab ORAL PRN ×2 (12:21→17:51)
--- NOTE | 2020-06-24 12:21 | NUR ---
NURSE NOTES: Oral temp 100.9. PRN 500mg Tylenol give for fever. Started cooling measures. Notified Dr Lilian Turpin regarding fever.
--- NOTE | 2020-06-24 12:42 | NUR ---
INSURANCE CLINICALS/REVIEW FAXED TO [facility] [phone]
--- NOTE | 2020-06-24 13:01 | NUR ---
NURSE NOTES: Dr Frazier here to see patient. Notified him regarding subcutaneous emphysema. No new orders.
[2020-06-24] MEDS ORDERED: NS 275ml ONE (13:13)
--- NOTE | 2020-06-24 13:58 | Surgery Progress Note ---
Surgery Progress Note Subjective Procedure Performed 1. right chest tube insertion 2. left chest tube insertion Additional Comments no acute events b/l chest tube in place cxr noted left with small air leak right without leak no n/v ill appearing kub noted ng in place now cont ct to suction Objective Last 24 Hour Vital Signs Date Time Temp Pulse Resp B/P (MAP) Pulse Ox O2 Delivery O2 Flow Rate FiO2 06/24/20 13:00 100 41 112/60 (77) 83 06/24/20 13:00 40 Mechanical Ventilator 100 06/24/20 12:51 100.3 06/24/20 12:04 112 06/24/20 12:00 38 Mechanical Ventilator 100 06/24/20 12:00 Mechanical Ventilator Mechanical Ventilator 06/24/20 12:00 100.9 115 45 149/73 (98) 88 06/24/20 12:00 100.0 06/24/20 11:04 100.0 06/24/20 11:00 29 Mechanical Ventilator 100 06/24/20 11:00 88 35 113/98 (103) 85 06/24/20 10:00 35 Mechanical Ventilator 100 06/24/20 10:00 98 29 111/70 (84) 83 06/24/20 09:07 95 110/69 06/24/20 09:00 99.4 94 34 110/69 (83) 89 06/24/20 09:00 37 Mechanical Ventilator 100 06/24/20 08:00 Mechanical Ventilator Mechanical Ventilator 06/24/20 08:00 36 Mechanical Ventilator 100 06/24/20 08:00 89 36 126/75 (92) 89 06/24/20 08:00 100.0 06/24/20 07:28 87 06/24/20 07:00 28 Mechanical Ventilator 100 06/24/20 07:00 89 35 101/65 (77) 92 06/24/20 06:00 30 Mechanical Ventilator 100 06/24/20 06:00 88 33 102/67 (79) 91 06/24/20 05:15 85 31 115/71 (86) 92 06/24/20 05:00 28 Mechanical Ventilator 100 06/24/20 05:00 98.5 89 29 103/63 (76) 84 06/24/20 04:00 100.0 06/24/20 04:00 80 06/24/20 04:00 92 37 124/71 (88) 83 06/24/20 04:00 30 Mechanical Ventilator 100 06/24/20 04:00 Mechanical Ventilator Mechanical Ventilator 06/24/20 03:27 86 38 100 06/24/20 03:00 85 32 95/63 (74) 94 06/24/20 03:00 28 100 06/24/20 02:03 28 100 06/24/20 02:00 83 34 101/62 (75) 96 06/24/20 01:00 30 Mechanical Ventilator 100 06/24/20 01:00 82 32 100/64 (76) 86 06/24/20 00:00 82 27 104/70 (81) 87 06/24/20 00:00 Mechanical Ventilator Mechanical Ventilator 06/24/20 00:00 30 Mechanical Ventilator 100 06/24/20 00:00 74 06/24/20 00:00 100.0 06/23/20 23:20 97 37 100 06/23/20 23:00 98.8 83 30 94/56 (69) 100 06/23/20 23:00 28 Endotracheal Tube 100 06/23/20 22:00 Mechanical Ventilator Mechanical Ventilator 06/23/20 22:00 30 100 06/23/20 22:00 84 31 95/63 (74) 98 06/23/20 21:00 29 Mechanical Ventilator 100 06/23/20 21:00 86 29 88/53 (65) 94 06/23/20 20:53 88 91/56 06/23/20 20:00 97.8 90 30 86/50 (62) 93 06/23/20 20:00 83 06/23/20 20:00 Mechanical Ventilator Mechanical Ventilator 06/23/20 20:00 100.0 06/23/20 20:00 30 Mechanical Ventilator 100 06/23/20 19:10 81 32 100 06/23/20 19:00 28 Mechanical Ventilator 100 06/23/20 19:00 91 31 98/63 (75) 94 06/23/20 18:00 99 33 111/56 (74) 96 06/23/20 18:00 30 Mechanical Ventilator 100 06/23/20 17:00 31 Mechanical Ventilator 100 06/23/20 17:00 98 29 111/83 (92) 94 06/23/20 16:00 Mechanical Ventilator Mechanical Ventilator 06/23/20 16:00 99.5 95 27 100/65 (77) 96 06/23/20 16:00 29 Mechanical Ventilator 100 06/23/20 15:19 98 06/23/20 15:10 98 29 100 06/23/20 15:00 29 Mechanical Ventilator 100 06/23/20 15:00 98 26 104/61 (75) 94 06/23/20 14:00 27 Mechanical Ventilator 100 06/23/20 14:00 98 24 90/80 (83) 89 I&O Intake and Output 06/23/20 06/24/20 19:00 07:00 Intake Total 1057.75 ml 1388 ml Output Total 1414 ml 825 ml Balance -356.25 ml 563 ml Intake IV Total 1057.75 ml 1388 ml Output Urine Total 1400 ml 790 ml Chest Tube Drainage Total 14 ml 35 ml # Bowel Movements 3 Dressing: saturated Drains: other Cardiovascular: RSR Respiratory: decreased breath sounds Abdomen: non-tender, present bowel sounds, non-distended Extremities: no edema, no tenderness, no cyanosis Laboratory Tests Test 06/23/20 17:30 06/24/20 00:56 06/24/20 04:20 06/24/20 12:26 Troponin I 0.120 ng/mL (0.000-0.056) 0.079 ng/mL (0.000-0.056) Arterial Blood pH 7.482 (7.350-7.450) Arterial Blood Partial Pressure CO2 30.4 mmHg (35.0-45.0) L Arterial Blood Partial Pressure O2 50.8 mmHg (75.0-100.0) L Arterial Blood HCO3 22.2 mmol/L (22.0-26.0) Arterial Blood Oxygen Saturation 87.0 % (95-100) *L Arterial Blood Base Excess -0.4 (-2-2) Amrit Test Positive White Blood Count 17.0 K/UL (4.8-10.8) H Red Blood Count 4.04 M/UL (4.20-5.40) L Hemoglobin 11.8 G/DL (12.0-16.0) L Hematocrit 36.6 % (37.0-47.0) L Mean Corpuscular Volume 91 FL (80-99) Mean Corpuscular Hemoglobin 29.3 PG (27.0-31.0) Mean Corpuscular Hemoglobin Concent 32.3 G/DL (32.0-36.0) Red Cell Distribution Width 11.9 % (11.6-14.8) Platelet Count 219 K/UL (150-450) Mean Platelet Volume 7.7 FL (6.5-10.1) Neutrophils (%) (Auto) % (45.0-75.0) Lymphocytes (%) (Auto) % (20.0-45.0) Monocytes (%) (Auto) % (1.0-10.0) Eosinophils (%) (Auto) % (0.0-3.0) Basophils (%) (Auto) % (0.0-2.0) Differential Total Cells Counted 100 Neutrophils % (Manual) 96 % (45-75) H Lymphocytes % (Manual) 3 % (20-45) L Monocytes % (Manual) 1 % (1-10) Eosinophils % (Manual) 0 % (0-3) Basophils % (Manual) 0 % (0-2) Band Neutrophils 0 % (0-8) Platelet Estimate Adequate Platelet Morphology Normal Red Blood Cell Morphology Normal Sodium Level 148 MMOL/L (136-145) H Potassium Level 3.6 MMOL/L (3.5-5.1) Chloride Level 116 MMOL/L (98-107) H Carbon Dioxide Level 23 MMOL/L (21-32) Anion Gap 9 mmol/L (5-15) Blood Urea Nitrogen 30 mg/dL (7-18) H Creatinine 0.7 MG/DL (0.55-1.30) Estimat Glomerular Filtration Rate > 60 mL/min (>60) Glucose Level 247 MG/DL (74-106) #H Lactic Acid Level 2.40 mmol/L (0.4-2.0) H 2.60 mmol/L (0.4-2.0) H Uric Acid 3.8 MG/DL (2.6-7.2) Calcium Level 7.5 MG/DL (8.5-10.1) L Phosphorus Level 2.1 MG/DL (2.5-4.9) L Magnesium Level 2.2 MG/DL (1.8-2.4) Total Bilirubin 0.9 MG/DL (0.2-1.0) Aspartate Amino Transf (AST/SGOT) 45 U/L (15-37) H Alanine Aminotransferase (ALT/SGPT) 41 U/L (12-78) Alkaline Phosphatase 74 U/L (46-116) C-Reactive Protein, Quantitative 8.3 mg/dL (0.00-0.90) H Pro-B-Type Natriuretic Peptide 219 pg/mL (0-125) H Total Protein 5.8 G/DL (6.4-8.2) L Albumin 1.9 G/DL (3.4-5.0) L Globulin 3.9 g/dL Albumin/Globulin Ratio 0.5 (1.0-2.7) L Elpidio Frazier Jun 24, 2020 13:58
--- NOTE | 2020-06-24 14:01 | Diagnostic Imaging Report ---
Indication: Dyspnea Technique: One view of the chest Comparison: 06/23/2020 Findings: Interim repositioning of malpositioned orogastric tube, tip projecting off the edge of the image but seen in this is far as the distal gastric antrum. Stable satisfactory position of endotracheal tube. Bilateral chest tubes remain. Bilateral small pneumothoraces persist despite chest tubes, appearing unchanged. Pneumomediastinum persists. Bilateral pulmonary parenchymal infiltrates are unchanged. Extensive subcutaneous emphysema persists. Impression: Improved and now satisfactory orogastric tube position Other stable findings as described
--- NOTE | 2020-06-24 14:16 | Cardiac Electrophysiology PN ---
Assessment/Plan Assessment/Plan 1. Respiratory failure likely due to COVID pneumonia. Intubated on 100% Fio2. Echocardiogram showed ejection fraction within normal range. 2. Bilateral pneumothoraces. S/P bilateral chest tube placement 3. Troponin elevation. Levels are low and flat could be demand ischemia vs Renal failure EKG shows sinus tachycardia at 110 beats per minute. 4. Hypernatremia with sodium of 155. IV fluids per Dr. De Jesus. 5. Azotemia, BUN 31 and creatinine 0.8. 6. The patient is also COVID-19 positive and is in isolation, on dexamethasone, completed Remdesivir. 7. Hypertension, on Coreg 6.25 mg b.i.d. Subjective Subjective Intubated in ICU . Underwent bilateral chest tube placement yesterday. Has severe SQ emphysema. On 100% Fio2 . Off pressors Objective Last 24 Hour Vital Signs Date Time Temp Pulse Resp B/P (MAP) Pulse Ox O2 Delivery O2 Flow Rate FiO2 06/24/20 13:00 100 41 112/60 (77) 83 06/24/20 13:00 40 Mechanical Ventilator 100 06/24/20 12:51 100.3 06/24/20 12:04 112 06/24/20 12:00 38 Mechanical Ventilator 100 06/24/20 12:00 Mechanical Ventilator Mechanical Ventilator 06/24/20 12:00 100.9 115 45 149/73 (98) 88 06/24/20 12:00 100.0 06/24/20 11:04 100.0 06/24/20 11:00 29 Mechanical Ventilator 100 06/24/20 11:00 88 35 113/98 (103) 85 06/24/20 10:00 35 Mechanical Ventilator 100 06/24/20 10:00 98 29 111/70 (84) 83 06/24/20 09:07 95 110/69 06/24/20 09:00 99.4 94 34 110/69 (83) 89 06/24/20 09:00 37 Mechanical Ventilator 100 06/24/20 08:00 Mechanical Ventilator Mechanical Ventilator 06/24/20 08:00 36 Mechanical Ventilator 100 06/24/20 08:00 89 36 126/75 (92) 89 06/24/20 08:00 100.0 06/24/20 07:28 87 06/24/20 07:00 28 Mechanical Ventilator 100 06/24/20 07:00 89 35 101/65 (77) 92 06/24/20 06:00 30 Mechanical Ventilator 100 06/24/20 06:00 88 33 102/67 (79) 91 06/24/20 05:15 85 31 115/71 (86) 92 06/24/20 05:00 28 Mechanical Ventilator 100 06/24/20 05:00 98.5 89 29 103/63 (76) 84 06/24/20 04:00 100.0 06/24/20 04:00 80 06/24/20 04:00 92 37 124/71 (88) 83 06/24/20 04:00 30 Mechanical Ventilator 100 06/24/20 04:00 Mechanical Ventilator Mechanical Ventilator 06/24/20 03:27 86 38 100 06/24/20 03:00 85 32 95/63 (74) 94 06/24/20 03:00 28 100 06/24/20 02:03 28 100 06/24/20 02:00 83 34 101/62 (75) 96 06/24/20 01:00 30 Mechanical Ventilator 100 06/24/20 01:00 82 32 100/64 (76) 86 06/24/20 00:00 82 27 104/70 (81) 87 06/24/20 00:00 Mechanical Ventilator Mechanical Ventilator 06/24/20 00:00 30 Mechanical Ventilator 100 06/24/20 00:00 74 06/24/20 00:00 100.0 06/23/20 23:20 97 37 100 06/23/20 23:00 98.8 83 30 94/56 (69) 100 06/23/20 23:00 28 Endotracheal Tube 100 06/23/20 22:00 Mechanical Ventilator Mechanical Ventilator 06/23/20 22:00 30 100 06/23/20 22:00 84 31 95/63 (74) 98 06/23/20 21:00 29 Mechanical Ventilator 100 06/23/20 21:00 86 29 88/53 (65) 94 06/23/20 20:53 88 91/56 06/23/20 20:00 97.8 90 30 86/50 (62) 93 06/23/20 20:00 83 06/23/20 20:00 Mechanical Ventilator Mechanical Ventilator 06/23/20 20:00 100.0 06/23/20 20:00 30 Mechanical Ventilator 100 06/23/20 19:10 81 32 100 06/23/20 19:00 28 Mechanical Ventilator 100 06/23/20 19:00 91 31 98/63 (75) 94 06/23/20 18:00 99 33 111/56 (74) 96 06/23/20 18:00 30 Mechanical Ventilator 100 06/23/20 17:00 31 Mechanical Ventilator 100 06/23/20 17:00 98 29 111/83 (92) 94 06/23/20 16:00 Mechanical Ventilator Mechanical Ventilator 06/23/20 16:00 99.5 95 27 100/65 (77) 96 06/23/20 16:00 29 Mechanical Ventilator 100 06/23/20 15:19 98 06/23/20 15:10 98 29 100 06/23/20 15:00 29 Mechanical Ventilator 100 06/23/20 15:00 98 26 104/61 (75) 94 Intake and Output 06/23/20 06/24/20 19:00 07:00 Intake Total 1057.75 ml 1388 ml Output Total 1414 ml 825 ml Balance -356.25 ml 563 ml Intake IV Total 1057.75 ml 1388 ml Output Urine Total 1400 ml 790 ml Chest Tube Drainage Total 14 ml 35 ml # Bowel Movements 3 Laboratory Tests Test 06/23/20 17:30 06/24/20 00:56 06/24/20 04:20 06/24/20 12:26 Troponin I 0.120 ng/mL (0.000-0.056) 0.079 ng/mL (0.000-0.056) Arterial Blood pH 7.482 (7.350-7.450) Arterial Blood Partial Pressure CO2 30.4 mmHg (35.0-45.0) L Arterial Blood Partial Pressure O2 50.8 mmHg (75.0-100.0) L Arterial Blood HCO3 22.2 mmol/L (22.0-26.0) Arterial Blood Oxygen Saturation 87.0 % (95-100) *L Arterial Blood Base Excess -0.4 (-2-2) Amrit Test Positive White Blood Count 17.0 K/UL (4.8-10.8) H Red Blood Count 4.04 M/UL (4.20-5.40) L Hemoglobin 11.8 G/DL (12.0-16.0) L Hematocrit 36.6 % (37.0-47.0) L Mean Corpuscular Volume 91 FL (80-99) Mean Corpuscular Hemoglobin 29.3 PG (27.0-31.0) Mean Corpuscular Hemoglobin Concent 32.3 G/DL (32.0-36.0) Red Cell Distribution Width 11.9 % (11.6-14.8) Platelet Count 219 K/UL (150-450) Mean Platelet Volume 7.7 FL (6.5-10.1) Neutrophils (%) (Auto) % (45.0-75.0) Lymphocytes (%) (Auto) % (20.0-45.0) Monocytes (%) (Auto) % (1.0-10.0) Eosinophils (%) (Auto) % (0.0-3.0) Basophils (%) (Auto) % (0.0-2.0) Differential Total Cells Counted 100 Neutrophils % (Manual) 96 % (45-75) H Lymphocytes % (Manual) 3 % (20-45) L Monocytes % (Manual) 1 % (1-10) Eosinophils % (Manual) 0 % (0-3) Basophils % (Manual) 0 % (0-2) Band Neutrophils 0 % (0-8) Platelet Estimate Adequate Platelet Morphology Normal Red Blood Cell Morphology Normal Sodium Level 148 MMOL/L (136-145) H Potassium Level 3.6 MMOL/L (3.5-5.1) Chloride Level 116 MMOL/L (98-107) H Carbon Dioxide Level 23 MMOL/L (21-32) Anion Gap 9 mmol/L (5-15) Blood Urea Nitrogen 30 mg/dL (7-18) H Creatinine 0.7 MG/DL (0.55-1.30) Estimat Glomerular Filtration Rate > 60 mL/min (>60) Glucose Level 247 MG/DL (74-106) #H Lactic Acid Level 2.40 mmol/L (0.4-2.0) H 2.60 mmol/L (0.4-2.0) H Uric Acid 3.8 MG/DL (2.6-7.2) Calcium Level 7.5 MG/DL (8.5-10.1) L Phosphorus Level 2.1 MG/DL (2.5-4.9) L Magnesium Level 2.2 MG/DL (1.8-2.4) Total Bilirubin 0.9 MG/DL (0.2-1.0) Aspartate Amino Transf (AST/SGOT) 45 U/L (15-37) H Alanine Aminotransferase (ALT/SGPT) 41 U/L (12-78) Alkaline Phosphatase 74 U/L (46-116) C-Reactive Protein, Quantitative 8.3 mg/dL (0.00-0.90) H Pro-B-Type Natriuretic Peptide 219 pg/mL (0-125) H Total Protein 5.8 G/DL (6.4-8.2) L Albumin 1.9 G/DL (3.4-5.0) L Globulin 3.9 g/dL Albumin/Globulin Ratio 0.5 (1.0-2.7) L Objective HEAD AND NECK: No JVD.Orally intubated with SQ emphysema LUNGS: Coarse rhonchi bilaterally. Bilateral chest tube in. CARDIOVASCULAR: Regular S1 and S2 and tachycardic. ABDOMEN: Soft. EXTREMITIES: No pitting edema. Maxwell Carreon MD Jun 24, 2020 14:16
--- NOTE | 2020-06-24 15:03 | NUR ---
NURSE NOTES: Subcutaneous emphysema on the lower face and neck area is better and less tight. Bilateral chest tubes are in place. O2 sat 90%. RR 44. Will continue to monitor.
--- NOTE | 2020-06-24 17:51 | NUR ---
NURSE NOTES: PRN Tylenol 500mg given via OGT for mild pain 3/10. Will reassess patient. Cleaned and repositioned patient. Good oral care done.
--- NOTE | 2020-06-24 18:50 | NUR ---
NURSE NOTES: Subcutaneous emphysema is a bit better compared to previous assessment on face, neck, upper chest, and bilateral arm area. New peripheral IV inserted to right wrist.
--- NOTE | 2020-06-24 19:13 | NUR ---
NURSE HAND-OFF REPORT: Latest Vital Signs: Temperature 100.5 , Pulse 105 , B/P 93 /50 , Respiratory Rate 38 , O2 SAT 76 , Mechanical Ventilator, O2 Flow Rate . Vital Sign Comment: NORMAN Chisholm EKG Rhythm: Sinus Tachycardia Rhythm change?: N MD Notified?: MD Response: Latest Carney Fall Score: 60 Fall Risk: High Risk Safety Measures: Call light Within Reach, Bed Alarm Zone 2, Side Rails Side Rails x3, Bed position Low and Locked. Fall Precautions: Yellow Socks Yellow Gown Door Sign Patient Fall Education Report given to NORMAN Chisholm.
--- NOTE | 2020-06-24 19:43 | NUR ---
NURSE NOTES: received report from nuvia rn pt orally intubated -vent o2 sat 85-90% sedated with versed 7mg/hr -2 ross ON JM RESTRAINT NAN COMPLAINT CHEST TUBE X2 -SUCTION SUBCUTANEOUS ENPHY IMPROVE REPOSITION AND SUCTION IV SITE GOOD AND INTACT
--- NOTE | 2020-06-24 21:32 | General Progress Note ---
Subjective ROS Limited/Unobtainable: Yes Allergies: Coded Allergies: No Known Allergies (Unverified , 06/17/20) Objective Last 24 Hour Vital Signs Date Time Temp Pulse Resp B/P (MAP) Pulse Ox O2 Delivery O2 Flow Rate FiO2 06/24/20 21:00 35 Mechanical Ventilator 100 06/24/20 21:00 99.5 98 40 106/58 (74) 83 06/24/20 20:48 100 90/49 06/24/20 20:00 Mechanical Ventilator Mechanical Ventilator 06/24/20 20:00 102 06/24/20 20:00 100.0 103 38 91/47 (62) 86 06/24/20 20:00 100.0 06/24/20 20:00 30 Mechanical Ventilator 100 06/24/20 19:05 106 38 100 06/24/20 19:00 105 38 93/50 (64) 76 06/24/20 19:00 38 Mechanical Ventilator 100 06/24/20 18:00 38 Mechanical Ventilator 100 06/24/20 18:00 100.5 112 40 135/60 (85) 83 06/24/20 17:00 40 Mechanical Ventilator 100 06/24/20 17:00 114 40 153/65 (94) 84 06/24/20 16:45 41 Mechanical Ventilator 100 06/24/20 16:30 42 Mechanical Ventilator 100 06/24/20 16:15 41 Mechanical Ventilator 100 06/24/20 16:00 Mechanical Ventilator Mechanical Ventilator 06/24/20 16:00 108 41 139/85 (103) 85 06/24/20 16:00 42 Mechanical Ventilator 100 06/24/20 16:00 100.0 06/24/20 15:50 100 06/24/20 15:16 101 42 100 06/24/20 15:00 104 35 120/62 (81) 91 06/24/20 15:00 38 Mechanical Ventilator 100 06/24/20 14:30 39 Mechanical Ventilator 100 06/24/20 14:00 40 Mechanical Ventilator 100 06/24/20 14:00 99 36 113/60 (77) 84 06/24/20 13:00 100.3 100 41 112/60 (77) 83 06/24/20 13:00 40 Mechanical Ventilator 100 06/24/20 12:51 100.3 06/24/20 12:04 112 06/24/20 12:00 38 Mechanical Ventilator 100 06/24/20 12:00 Mechanical Ventilator Mechanical Ventilator 06/24/20 12:00 100.9 115 45 149/73 (98) 88 06/24/20 12:00 100.0 06/24/20 11:39 88 39 100 06/24/20 11:04 100.0 06/24/20 11:00 29 Mechanical Ventilator 100 06/24/20 11:00 88 35 113/98 (103) 85 06/24/20 10:00 35 Mechanical Ventilator 100 06/24/20 10:00 98 29 111/70 (84) 83 06/24/20 09:07 95 110/69 06/24/20 09:00 99.4 94 34 110/69 (83) 89 06/24/20 09:00 37 Mechanical Ventilator 100 06/24/20 08:00 Mechanical Ventilator Mechanical Ventilator 06/24/20 08:00 36 Mechanical Ventilator 100 06/24/20 08:00 89 36 126/75 (92) 89 06/24/20 08:00 100.0 06/24/20 07:36 89 35 100 06/24/20 07:28 87 06/24/20 07:00 28 Mechanical Ventilator 100 06/24/20 07:00 89 35 101/65 (77) 92 06/24/20 06:00 30 Mechanical Ventilator 100 06/24/20 06:00 88 33 102/67 (79) 91 06/24/20 05:15 85 31 115/71 (86) 92 06/24/20 05:00 28 Mechanical Ventilator 100 06/24/20 05:00 98.5 89 29 103/63 (76) 84 06/24/20 04:00 100.0 06/24/20 04:00 80 06/24/20 04:00 92 37 124/71 (88) 83 06/24/20 04:00 30 Mechanical Ventilator 100 06/24/20 04:00 Mechanical Ventilator Mechanical Ventilator 06/24/20 03:27 86 38 100 06/24/20 03:00 85 32 95/63 (74) 94 06/24/20 03:00 28 100 06/24/20 02:03 28 100 06/24/20 02:00 83 34 101/62 (75) 96 06/24/20 01:00 30 Mechanical Ventilator 100 06/24/20 01:00 82 32 100/64 (76) 86 06/24/20 00:00 82 27 104/70 (81) 87 06/24/20 00:00 Mechanical Ventilator Mechanical Ventilator 06/24/20 00:00 30 Mechanical Ventilator 100 06/24/20 00:00 74 06/24/20 00:00 100.0 06/23/20 23:20 97 37 100 06/23/20 23:00 98.8 83 30 94/56 (69) 100 06/23/20 23:00 28 Endotracheal Tube 100 06/23/20 22:00 Mechanical Ventilator Mechanical Ventilator 06/23/20 22:00 30 100 06/23/20 22:00 84 31 95/63 (74) 98 Intake and Output 06/23/20 06/24/20 19:00 07:00 Intake Total 1057.75 ml 1388 ml Output Total 1414 ml 825 ml Balance -356.25 ml 563 ml Intake IV Total 1057.75 ml 1388 ml Output Urine Total 1400 ml 790 ml Chest Tube Drainage Total 14 ml 35 ml # Bowel Movements 3 Laboratory Tests 06/24/20 00:56: Arterial Blood pH 7.482H, Arterial Blood Partial Pressure CO2 30.4L, Arterial Blood Partial Pressure O2 50.8L, Arterial Blood HCO3 22.2, Arterial Blood Oxygen Saturation 87.0*L, Arterial Blood Base Excess -0.4, Amrit Test Positive 06/24/20 04:20: White Blood Count 17.0H, Red Blood Count 4.04L, Hemoglobin 11.8L, Hematocrit 36.6L, Mean Corpuscular Volume 91, Mean Corpuscular Hemoglobin 29.3, Mean Corpuscular Hemoglobin Concent 32.3, Red Cell Distribution Width 11.9, Platelet Count 219, Mean Platelet Volume 7.7, Neutrophils (%) (Auto) , Lymphocytes (%) (Auto) , Monocytes (%) (Auto) , Eosinophils (%) (Auto) , Basophils (%) (Auto) , Differential Total Cells Counted 100, Neutrophils % (Manual) 96H, Lymphocytes % (Manual) 3L, Monocytes % (Manual) 1, Eosinophils % (Manual) 0, Basophils % (Manual) 0, Band Neutrophils 0, Platelet Estimate Adequate, Platelet Morphology Normal, Red Blood Cell Morphology Normal, Sodium Level 148H, Potassium Level 3.6, Chloride Level 116H, Carbon Dioxide Level 23, Anion Gap 9, Blood Urea Nitrogen 30H, Creatinine 0.7, Estimat Glomerular Filtration Rate > 60, Glucose Level 247#H, Lactic Acid Level 2.40H, Uric Acid 3.8, Calcium Level 7.5L, Phosphorus Level 2.1L, Magnesium Level 2.2, Total Bilirubin 0.9, Aspartate Amino Transf (AST/SGOT) 45H, Alanine Aminotransferase (ALT/SGPT) 41, Alkaline Phosp hatase 74, Troponin I 0.079H, C-Reactive Protein, Quantitative 8.3H, Pro-B-Type Natriuretic Peptide 219H, Total Protein 5.8L, Albumin 1.9L, Globulin 3.9, Albumin/Globulin Ratio 0.5L 06/24/20 12:26: Lactic Acid Level 2.60H 06/24/20 18:20: Lactic Acid Level 2.10 Height (Feet): 5 Height (Inches): 2.00 Weight (Pounds): 138 Assessment/Plan Problem List: (1) Elevated d-dimer ICD Codes: R79.89 - Other specified abnormal findings of blood chemistry SNOMED: 494383227 (2) Renal insufficiency ICD Codes: N28.9 - Disorder of kidney and ureter, unspecified SNOMED: 867468303, 450284661 (3) PNA (pneumonia) ICD Codes: J18.9 - Pneumonia, unspecified organism SNOMED: 679367981 (4) Dehydration ICD Codes: E86.0 - Dehydration SNOMED: 32721549 (5) LEONARDO (acute kidney injury) ICD Codes: N17.9 - Acute kidney failure, unspecified SNOMED: 2781340, 60752401 (6) Hypoxia ICD Codes: R09.02 - Hypoxemia; J12.82 - Pneumonia due to coronavirus disease 2019 SNOMED: 279510669 (7) Pneumonia due to COVID-19 virus ICD Codes: U07.1 - COVID-19; J12.82 - Pneumonia due to coronavirus disease 2019 SNOMED: 005531320034641847 (8) DMII (diabetes mellitus, type 2) ICD Codes: E11.9 - Type 2 diabetes mellitus without complications SNOMED: 95650365 Status: progressing Assessment/Plan: covid + resp failure intubated check sugar afebrile leonardo dehydrated niddm poor prognosis Vidya Clayton MD Jun 24, 2020 21:32
--- NOTE | 2020-06-24 22:00 | NUR ---
NURSE NOTES: reposition and suction temp 99.8
[2020-06-25] VITALS (46 sets, daily range): BP systolic 98–155; BP diastolic 52–70
--- NOTE | 2020-06-25 | NUR ---
NURSE NOTES: bs 168 insulin -coverage elvin
--- NOTE | 2020-06-25 04:00 | NUR ---
NURSE NOTES: complete bed bath bach care done reposition and suction
[2020-06-25] MEDS: Acetaminophen 500mg (ES) tab ORAL PRN (04:05)
[2020-06-25 05:10] LABS: HEMATOCRIT 38.1 % (37.0-47.0); HEMOGLOBIN 12.4 G/DL (12.0-16.0); MEAN CORPUSCULAR VOLUME 92 FL (80-99); PLATELET COUNT 193 K/UL (150-450); RED BLOOD COUNT 4.15 M/UL (4.20-5.40); RED CELL DISTRIBUTION WIDTH 12.8 % (11.6-14.8); WHITE BLOOD COUNT 18.4 K/UL (4.8-10.8)
[2020-06-25 05:50] LABS: ALANINE AMINOTRANSFERASE 46 U/L (12-78); ALBUMIN 1.7 G/DL (3.4-5.0); ALBUMIN/GLOBULIN RATIO 0.4 (1.0-2.7); ALKALINE PHOSPHATASE 92 U/L (46-116); ANION GAP 7 mmol/L (5-15); ASPARTATE AMINO TRANSFERASE 55 U/L (15-37); BILIRUBIN,TOTAL 1.1 MG/DL (0.2-1.0); BLOOD UREA NITROGEN 18 mg/dL (7-18); CALCIUM 7.3 MG/DL (8.5-10.1); CARBON DIOXIDE 25 MMOL/L (21-32); CHLORIDE 109 MMOL/L (98-107); CREATININE 0.7 MG/DL (0.55-1.30); PHOSPHORUS 2.1 MG/DL (2.5-4.9); POTASSIUM 3.9 MMOL/L (3.5-5.1); SODIUM 141 MMOL/L (136-145)
[2020-06-25 05:52] LABS: BILIRUBIN,DIRECT 0.3 MG/DL (0.0-0.3)
[2020-06-25] MEDS: NovoLOG Insulin Flexpen SUBQ SCH ×3 (05:58→18:00)
--- NOTE | 2020-06-25 06:00 | NUR ---
NURSE NOTES: bs 158 insulin coverage given temp99.8 reposition and suction
--- NOTE | 2020-06-25 06:47 | Hematology/Onc Progress Note ---
Assessment/Plan Assessment/Plan Assessment and recs # Leukocytosis with Pneumonia due to COVID-19 virus -> wbc trend 15-->11-->10->17-->18 --> ABX as per id ctx --> imaging does show pna --> anticoag recommended --> on remdesivir # Anemia of chronic disease --> hgb 12->10 --> r/o hemolysis # Elevated ddimer due to covid --> duplex legs -> LOVENOX sq # Covid19++ with Hypoxia -> steriods, abx per id # Renal insufficiency -> per renal care # Sepsis due to above --> abx, fluid resuscitation # Dvt ppx lovenox sq Appreciate consultation and dw RN Subjective Constitutional: Denies: no symptoms, chills, fever, malaise, weakness, other HEENT: Denies: no symptoms, eye pain, blurred vision, tearing, double vision, ear pain, ear discharge, nose pain, nose congestion, throat pain, throat swelling, mouth pain, mouth swelling, other Cardiovascular: Denies: no symptoms, chest pain, edema, irregular heart rate, lightheadedness, palpitations, syncope, other Gastrointestinal/Abdominal: Denies: no symptoms, abdomen distended, abdominal pain, black stools, tarry stools, blood in stool, constipated, diarrhea, difficulty swallowing, nausea, poor appetite, poor fluid intake, rectal bleeding, vomiting, other Genitourinary: Denies: no symptoms, burning, discharge, frequency, flank pain, hematuria, incontinence, pain, urgency, other Neurologic/Psychiatric: Denies: no symptoms, anxiety, depressed, emotional problems, headache, numbness, paresthesia, pre-existing deficit, seizure, tingling, tremors, weakness, other Endocrine: Denies: no symptoms, excessive sweating, flushing, intolerance to c old, intolerance to heat, increased hunger, increased thirst, increased urine, unexplained weight gain, unexplained weight loss, other Allergies: Coded Allergies: No Known Allergies (Unverified , 06/17/20) Subjective 06/19 sleeping, comfortable, on bipap, meds have been reviewed 06/21 on bipap, labs have been reviewed, no major events 06/22 bipap labs reviewed, meds noted, no bleeding 06/23 bipap labs noted, no bleeding, meds reviewed, dw rn 06/24 on vent, labs reviewed, meds reviewed 06/25 on vent, with ctx as abx, labs noted, no bleeding Objective Objective Current Medications Medications (Trade) Dose Ordered Sig/Maya Route PRN Reason Start Time Stop Time Status Last Admin Dose Admin Acetaminophen (Tylenol) 500 mg Q4H PRN ORAL Mild Pain (Pain Scale 1-3) 06/18/20 00:15 07/18/20 00:14 06/24/20 17:51 Acetaminophen (Tylenol) 500 mg Q4H PRN ORAL Temp >100.5 06/18/20 00:15 07/18/20 00:14 06/25/20 04:05 Carvedilol (Coreg) 6.25 mg EVERY 12 HOURS ORAL 06/22/20 21:00 07/22/20 20:59 06/24/20 09:07 Ceftriaxone Sodium 1 gm/ Dextrose 55 ml @ 110 mls/hr Q24H IVPB 06/23/20 11:00 06/30/20 10:59 06/24/20 12:00 Dexamethasone Sodium Phosphate (Decadron 10mg/ ml Inj) 6 mg DAILY IV 06/18/20 09:45 06/27/20 09:01 06/24/20 09:06 Dextrose 1,000 ml @ 100 mls/hr Q10H IV 06/19/20 13:30 07/19/20 13:29 06/25/20 05:59 Dextrose (Dextrose 50%) 25 ml Q30M PRN IV Hypoglycemia 06/18/20 14:15 09/16/20 14:14 Dextrose (Dextrose 50%) 50 ml Q30M PRN IV Hypoglycemia 06/18/20 14:15 09/16/20 14:14 Docusate Sodium (Colace) 100 mg THREE TIMES A DAY ORAL 06/18/20 13:00 07/18/20 12:59 06/24/20 17:50 Enoxaparin Sodium (Lovenox) 40 mg DAILY SUBQ 06/21/20 09:00 09/19/20 08:59 06/24/20 09:06 Haloperidol Lactate (Haldol) 10 mg Q6H PRN IM Agitation 06/23/20 11:30 08/07/20 11:29 06/23/20 11:34 Insulin Aspart (NovoLOG) while NPO Q6HR SUBQ 06/18/20 18:00 09/16/20 17:59 06/25/20 05:58 Midazolam HCl 50 mg/Sodium Chloride 100 ml @ 0 mls/hr Q24H PRN IV Agitation 06/23/20 12:30 06/25/20 12:29 06/24/20 23:03 Pantoprazole (Protonix) 40 mg EVERY 12 HOURS IVP 06/18/20 21:00 07/18/20 20:59 06/24/20 20:48 Last 24 Hour Vital Signs Date Time Temp Pulse Resp B/P (MAP) Pulse Ox O2 Delivery O2 Flow Rate FiO2 06/25/20 06:00 100.0 105 40 113/60 (77) 93 06/25/20 06:00 35 Mechanical Ventilator 100 06/25/20 05:00 110 39 113/54 (73) 78 06/25/20 05:00 35 Mechanical Ventilator 100 06/25/20 04:35 100.0 06/25/20 04:00 110 06/25/20 04:00 30 Mechanical Ventilator 100 06/25/20 04:00 100.0 06/25/20 04:00 101.0 112 46 155/70 (98) 87 06/25/20 04:00 Mechanical Ventilator Mechanical Ventilator 06/25/20 03:34 104 35 100 06/25/20 03:00 108 42 128/60 (82) 83 06/25/20 03:00 30 Mechanical Ventilator 100 06/25/20 02:00 108 43 135/60 (85) 83 06/25/20 02:00 30 Mechanical Ventilator 100 06/25/20 01:25 100 38 100 06/25/20 01:00 105 43 128/61 (83) 83 06/25/20 01:00 38 100 06/25/20 00:00 34 Mechanical Ventilator 100 06/25/20 00:00 Mechanical Ventilator Mechanical Ventilator 06/25/20 00:00 99.8 104 42 119/61 (80) 83 06/24/20 23:03 35 Room Air 100 06/24/20 23:00 99 42 130/64 (86) 86 06/24/20 22:00 99 41 110/59 (76) 85 06/24/20 22:00 30 Mechanical Ventilator 100 06/24/20 21:00 35 Mechanical Ventilator 100 06/24/20 21:00 99.5 98 40 106/58 (74) 83 2 20:48 100 90/49 06/24/20 20:00 Mechanical Ventilator Mechanical Ventilator 06/24/20 20:00 102 06/24/20 20:00 100.0 103 38 91/47 (62) 86 06/24/20 20:00 100.0 06/24/20 20:00 30 Mechanical Ventilator 100 06/24/20 19:05 106 38 100 06/24/20 19:00 105 38 93/50 (64) 76 06/24/20 19:00 38 Mechanical Ventilator 100 06/24/20 18:00 38 Mechanical Ventilator 100 06/24/20 18:00 100.5 112 40 135/60 (85) 83 06/24/20 17:00 40 Mechanical Ventilator 100 06/24/20 17:00 114 40 153/65 (94) 84 06/24/20 16:45 41 Mechanical Ventilator 100 06/24/20 16:30 42 Mechanical Ventilator 100 06/24/20 16:15 41 Mechanical Ventilator 100 06/24/20 16:00 Mechanical Ventilator Mechanical Ventilator 06/24/20 16:00 108 41 139/85 (103) 85 06/24/20 16:00 42 Mechanical Ventilator 100 06/24/20 16:00 100.0 06/24/20 15:50 100 06/24/20 15:16 101 42 100 06/24/20 15:00 104 35 120/62 (81) 91 06/24/20 15:00 38 Mechanical Ventilator 100 06/24/20 14:30 39 Mechanical Ventilator 100 06/24/20 14:00 40 Mechanical Ventilator 100 06/24/20 14:00 99 36 113/60 (77) 84 06/24/20 13:00 100.3 100 41 112/60 (77) 83 06/24/20 13:00 40 Mechanical Ventilator 100 06/24/20 12:51 100.3 06/24/20 12:04 112 06/24/20 12:00 38 Mechanical Ventilator 100 06/24/20 12:00 Mechanical Ventilator Mechanical Ventilator 06/24/20 12:00 100.9 115 45 149/73 (98) 88 06/24/20 12:00 100.0 06/24/20 11:39 88 39 100 06/24/20 11:04 100.0 06/24/20 11:00 29 Mechanical Ventilator 100 06/24/20 11:00 88 35 113/98 (103) 85 06/24/20 10:00 35 Mechanical Ventilator 100 06/24/20 10:00 98 29 111/70 (84) 83 06/24/20 09:07 95 110/69 06/24/20 09:00 99.4 94 34 110/69 (83) 89 06/24/20 09:00 37 Mechanical Ventilator 100 06/24/20 08:00 Mechanical Ventilator Mechanical Ventilator 06/24/20 08:00 36 Mechanical Ventilator 100 06/24/20 08:00 89 36 126/75 (92) 89 06/24/20 08:00 100.0 06/24/20 07:36 89 35 100 06/24/20 07:28 87 06/24/20 07:00 28 Mechanical Ventilator 100 06/24/20 07:00 89 35 101/65 (77) 92 06/24/20 06:00 30 Mechanical Ventilator 100 06/24/20 06:00 88 33 102/67 (79) 91 06/24/20 05:15 85 31 115/71 (86) 92 06/24/20 05:00 28 Mechanical Ventilator 100 06/24/20 05:00 98.5 89 29 103/63 (76) 84 06/24/20 04:00 100.0 06/24/20 04:00 80 06/24/20 04:00 92 37 124/71 (88) 83 06/24/20 04:00 30 Mechanical Ventilator 100 06/24/20 04:00 Mechanical Ventilator Mechanical Ventilator 06/24/20 03:27 86 38 100 06/24/20 03:00 85 32 95/63 (74) 94 06/24/20 03:00 28 100 06/24/20 02:03 28 100 06/24/20 02:00 83 34 101/62 (75) 96 06/24/20 01:00 30 Mechanical Ventilator 100 06/24/20 01:00 82 32 100/64 (76) 86 06/24/20 00:00 82 27 104/70 (81) 87 06/24/20 00:00 Mechanical Ventilator Mechanical Ventilator 06/24/20 00:00 30 Mechanical Ventilator 100 06/24/20 00:00 74 06/24/20 00:00 100.0 06/23/20 23:20 97 37 100 06/23/20 23:00 98.8 83 30 94/56 (69) 100 06/23/20 23:00 28 Endotracheal Tube 100 06/23/20 22:00 Mechanical Ventilator Mechanical Ventilator 06/23/20 22:00 30 100 06/23/20 22:00 84 31 95/63 (74) 98 06/23/20 21:00 29 Mechanical Ventilator 100 06/23/20 21:00 86 29 88/53 (65) 94 06/23/20 20:53 88 91/56 06/23/20 20:00 97.8 90 30 86/50 (62) 93 06/23/20 20:00 83 06/23/20 20:00 Mechanical Ventilator Mechanical Ventilator 06/23/20 20:00 100.0 06/23/20 20:00 30 Mechanical Ventilator 100 06/23/20 19:10 81 32 100 06/23/20 19:00 28 Mechanical Ventilator 100 06/23/20 19:00 91 31 98/63 (75) 94 06/23/20 18:00 99 33 111/56 (74) 96 06/23/20 18:00 30 Mechanical Ventilator 100 06/23/20 17:00 31 Mechanical Ventilator 100 06/23/20 17:00 98 29 111/83 (92) 94 06/23/20 16:00 Mechanical Ventilator Mechanical Ventilator 06/23/20 16:00 99.5 95 27 100/65 (77) 96 06/23/20 16:00 29 Mechanical Ventilator 100 06/23/20 15:19 98 06/23/20 15:10 98 29 100 06/23/20 15:00 29 Mechanical Ventilator 100 06/23/20 15:00 98 26 104/61 (75) 94 06/23/20 14:00 27 Mechanical Ventilator 100 06/23/20 14:00 98 24 90/80 (83) 89 06/23/20 13:18 108 31 100 06/23/20 13:16 100.0 06/23/20 13:00 99.4 115 36 116/70 (85) 89 06/23/20 13:00 28 Mechanical Ventilator 100 06/23/20 12:45 32 Mechanical Ventilator 100 06/23/20 12:45 122 31 136/69 (91) 92 06/23/20 12:30 121 35 99/71 (80) 90 2/2/21 12:30 32 Mechanical Ventilator 100 06/23/20 12:15 34 Mechanical Ventilator 100 06/23/20 12:15 125 35 110/70 (83) 91 06/23/20 12:00 Mechanical Ventilator Mechanical Ventilator 06/23/20 12:00 125 06/23/20 12:00 35 Mechanical Ventilator 100 06/23/20 12:00 135 39 149/86 (107) 85 06/23/20 11:00 140 32 142/57 (85) 100 06/23/20 10:49 100.0 06/23/20 10:40 144 35 100 06/23/20 10:00 137 17 149/113 (125) 98 06/23/20 09:00 100.5 135 18 118/80 (93) 92 06/23/20 08:55 124 12 97 Mechanical Ventilator 100 06/23/20 08:55 124 12 100 06/23/20 08:55 Mechanical Ventilator Mechanical Ventilator 06/23/20 08:55 100.0 06/23/20 08:55 124 12 97 Mechanical Ventilator 100 06/23/20 08:30 126 06/23/20 08:30 High Flow O2 60.0 High Flow O2 60.0 06/23/20 08:30 106 24 138/77 (97) 86 06/23/20 08:00 127 42 77 06/23/20 07:44 73 High Flow 60.0 100 06/23/20 07:30 125 40 81 Intake and Output 06/24/20 06/25/20 19:00 07:00 Intake Total 1893.664 ml 1240 ml Output Total 518 ml 530 ml Balance 1375.664 ml 710 ml Intake IV Total 1743.664 ml 1240 ml Other 150 ml Output Urine Total 460 ml 530 ml Chest Tube Drainage Total 58 ml # Bowel Movements 1 Labs Test 06/22/20 06:49 06/22/20 09:10 06/22/20 12:09 06/22/20 13:35 Arterial Blood pH 7.471 (7.350-7.450) 7.522 (7.350-7.450) Arterial Blood Partial Pressure CO2 29.8 mmHg (35.0-45.0) 25.3 mmHg (35.0-45.0) Arterial Blood Partial Pressure O2 58.5 mmHg (75.0-100.0) 54.9 mmHg (75.0-100.0) Arterial Blood HCO3 21.2 mmol/L (22.0-26.0) 20.3 mmol/L (22.0-26.0) Arterial Blood Oxygen Saturation 91.2 % (95-100) 91.2 % (95-100) Arterial Blood Base Excess -1.2 (-2-2) -1.0 (-2-2) Amrit Test Positive Positive White Blood Count 15.3 K/UL (4.8-10.8) Red Blood Count 4.80 M/UL (4.20-5.40) Hemoglobin 13.8 G/DL (12.0-16.0) Hematocrit 44.0 % (37.0-47.0) Mean Corpuscular Volume 92 FL (80-99) Mean Corpuscular Hemoglobin 28.8 PG (27.0-31.0) Mean Corpuscular Hemoglobin Concent 31.4 G/DL (32.0-36.0) Red Cell Distribution Width 12.4 % (11.6-14.8) Platelet Count 334 K/UL (150-450) Mean Platelet Volume 7.5 FL (6.5-10.1) Neutrophils (%) (Auto) % (45.0-75.0) Lymphocytes (%) (Auto) % (20.0-45.0) Monocytes (%) (Auto) % (1.0-10.0) Eosinophils (%) (Auto) % (0.0-3.0) Basophils (%) (Auto) % (0.0-2.0) Differential Total Cells Counted 100 Neutrophils % (Manual) 95 % (45-75) Lymphocytes % (Manual) 4 % (20-45) Monocytes % (Manual) 1 % (1-10) Eosinophils % (Manual) 0 % (0-3) Basophils % (Manual) 0 % (0-2) Band Neutrophils 0 % (0-8) Platelet Estimate Adequate Platelet Morphology Normal Red Blood Cell Morphology Normal Sodium Level 155 MMOL/L (136-145) Potassium Level 4.0 MMOL/L (3.5-5.1) Chloride Level 120 MMOL/L (98-107) Carbon Dioxide Level 26 MMOL/L (21-32) Anion Gap 9 mmol/L (5-15) Blood Urea Nitrogen 31 mg/dL (7-18) Creatinine 0.8 MG/DL (0.55-1.30) Estimat Glomerular Filtration Rate > 60 mL/min (>60) Glucose Level 150 MG/DL (74-106) Calcium Level 8.5 MG/DL (8.5-10.1) Total Bilirubin 0.9 MG/DL (0.2-1.0) Direct Bilirubin 0.2 MG/DL (0.0-0.3) Aspartate Amino Transf (AST/SGOT) 56 U/L (15-37) Alanine Aminotransferase (ALT/SGPT) 48 U/L (12-78) Alkaline Phosphatase 73 U/L (46-116) Total Protein 7.4 G/DL (6.4-8.2) Albumin 2.5 G/DL (3.4-5.0) Globulin 4.9 g/dL Albumin/Globulin Ratio 0.5 (1.0-2.7) POC Whole Blood Glucose 141 MG/DL (74-106) Test 06/22/20 19:09 06/23/20 01:25 06/23/20 01:29 06/23/20 03:20 Arterial Blood pH 7.369 (7.350-7.450) 7.488 (7.350-7.450) Arterial Blood Partial Pressure CO2 29.3 mmHg (35.0-45.0) 30.6 mmHg (35.0-45.0) Arterial Blood Partial Pressure O2 47.7 mmHg (75.0-100.0) 40.8 mmHg (75.0-100.0) Arterial Blood HCO3 16.5 mmol/L (22.0-26.0) 22.7 mmol/L (22.0-26.0) Arterial Blood Oxygen Saturation 79.3 % (95-100) 78.4 % (95-100) Arterial Blood Base Excess -7.3 (-2-2) 0.3 (-2-2) Amrit Test Positive Positive POC Whole Blood Glucose 144 MG/DL (74-106) Sodium Level 151 MMOL/L (136-145) Potassium Level 5.5 MMOL/L (3.5-5.1) Chloride Level 120 MMOL/L (98-107) Carbon Dioxide Level 17 MMOL/L (21-32) Anion Gap 14 mmol/L (5-15) Blood Urea Nitrogen 31 mg/dL (7-18) Creatinine 0.5 MG/DL (0.55-1.30) Estimat Glomerular Filtration Rate > 60 mL/min (>60) Glucose Level 85 MG/DL (74-106) Calcium Level 8.4 MG/DL (8.5-10.1) Phosphorus Level 2.1 MG/DL (2.5-4.9) Magnesium Level 2.5 MG/DL (1.8-2.4) Total Bilirubin 1.1 MG/DL (0.2-1.0) Direct Bilirubin < 0.1 MG/DL (0.0-0.3) Aspartate Amino Transf (AST/SGOT) 110 U/L (15-37) Alanine Aminotransferase (ALT/SGPT) 49 U/L (12-78) Alkaline Phosphatase 90 U/L (46-116) Total Protein 7.3 G/DL (6.4-8.2) Albumin 2.2 G/DL (3.4-5.0) Globulin 5.1 g/dL Albumin/Globulin Ratio 0.4 (1.0-2.7) Test 06/23/20 05:40 06/23/20 07:44 06/23/20 08:00 06/23/20 10:45 POC Whole Blood Glucose 107 MG/DL (74-106) Arterial Blood pH 7.454 (7.350-7.450) 7.391 (7.350-7.450) Arterial Blood Partial Pressure CO2 32.4 mmHg (35.0-45.0) 37.1 mmHg (35.0-45.0) Arterial Blood Partial Pressure O2 40.9 mmHg (75.0-100.0) 41.6 mmHg (75.0-100.0) Arterial Blood HCO3 22.2 mmol/L (22.0-26.0) 22.0 mmol/L (22.0-26.0) Arterial Blood Oxygen Saturation 76.9 % (95-100) 75.7 % (95-100) Arterial Blood Base Excess -0.8 (-2-2) -2.4 (-2-2) Amrit Test Positive Positive White Blood Count 22.4 K/UL (4.8-10.8) Red Blood Count 4.83 M/UL (4.20-5.40) Hemoglobin 13.9 G/DL (12.0-16.0) Hematocrit 44.1 % (37.0-47.0) Mean Corpuscular Volume 91 FL (80-99) Mean Corpuscular Hemoglobin 28.9 PG (27.0-31.0) Mean Corpuscular Hemoglobin Concent 31.6 G/DL (32.0-36.0) Red Cell Distribution Width 12.3 % (11.6-14.8) Platelet Count 350 K/UL (150-450) Mean Platelet Volume 7.4 FL (6.5-10.1) Neutrophils (%) (Auto) % (45.0-75.0) Lymphocytes (%) (Auto) % (20.0-45.0) Monocytes (%) (Auto) % (1.0-10.0) Eosinophils (%) (Auto) % (0.0-3.0) Basophils (%) (Auto) % (0.0-2.0) Differential Total Cells Counted 100 Neutrophils % (Manual) 97 % (45-75) Lymphocytes % (Manual) 2 % (20-45) Monocytes % (Manual) 1 % (1-10) Eosinophils % (Manual) 0 % (0-3) Basophils % (Manual) 0 % (0-2) Band Neutrophils 0 % (0-8) Platelet Estimate Adequate Platelet Morphology Normal Red Blood Cell Morphology Normal Sodium Level 157 MMOL/L (136-145) Potassium Level 3.8 MMOL/L (3.5-5.1) Chloride Level 122 MMOL/L (98-107) Carbon Dioxide Level 24 MMOL/L (21-32) Anion Gap 12 mmol/L (5-15) Blood Urea Nitrogen 31 mg/dL (7-18) Creatinine 0.9 MG/DL (0.55-1.30) Estimat Glomerular Filtration Rate > 60 mL/min (>60) Glucose Level 105 MG/DL (74-106) Lactic Acid Level 2.70 mmol/L (0.4-2.0) Calcium Level 8.5 MG/DL (8.5-10.1) Troponin I 0.225 ng/mL (0.000-0.056) Pro-B-Type Natriuretic Peptide 655 pg/mL (0-125) Test 06/23/20 17:30 06/24/20 00:56 06/24/20 04:20 06/24/20 12:26 Troponin I 0.120 ng/mL (0.000-0.056) 0.079 ng/mL (0.000-0.056) Arterial Blood pH 7.482 (7.350-7.450) Arterial Blood Partial Pressure CO2 30.4 mmHg (35.0-45.0) Arterial Blood Partial Pressure O2 50.8 mmHg (75.0-100.0) Arterial Blood HCO3 22.2 mmol/L (22.0-26.0) Arterial Blood Oxygen Saturation 87.0 % (95-100) Arterial Blood Base Excess -0.4 (-2-2) Amrit Test Positive White Blood Count 17.0 K/UL (4.8-10.8) Red Blood Count 4.04 M/UL (4.20-5.40) Hemoglobin 11.8 G/DL (12.0-16.0) Hematocrit 36.6 % (37.0-47.0) Mean Corpuscular Volume 91 FL (80-99) Mean Corpuscular Hemoglobin 29.3 PG (27.0-31.0) Mean Corpuscular Hemoglobin Concent 32.3 G/DL (32.0-36.0) Red Cell Distribution Width 11.9 % (11.6-14.8) Platelet Count 219 K/UL (150-450) Mean Platelet Volume 7.7 FL (6.5-10.1) Neutrophils (%) (Auto) % (45.0-75.0) Lymphocytes (%) (Auto) % (20.0-45.0) Monocytes (%) (Auto) % (1.0-10.0) Eosinophils (%) (Auto) % (0.0-3.0) Basophils (%) (Auto) % (0.0-2.0) Differential Total Cells Counted 100 Neutrophils % (Manual) 96 % (45-75) Lymphocytes % (Manual) 3 % (20-45) Monocytes % (Manual) 1 % (1-10) Eosinophils % (Manual) 0 % (0-3) Basophils % (Manual) 0 % (0-2) Band Neutrophils 0 % (0-8) Platelet Estimate Adequate Platelet Morphology Normal Red Blood Cell Morphology Normal Sodium Level 148 MMOL/L (136-145) Potassium Level 3.6 MMOL/L (3.5-5.1) Chloride Level 116 MMOL/L (98-107) Carbon Dioxide Level 23 MMOL/L (21-32) Anion Gap 9 mmol/L (5-15) Blood Urea Nitrogen 30 mg/dL (7-18) Creatinine 0.7 MG/DL (0.55-1.30) Estimat Glomerular Filtration Rate > 60 mL/min (>60) Glucose Level 247 MG/DL (74-106) Lactic Acid Level 2.40 mmol/L (0.4-2.0) 2.60 mmol/L (0.4-2.0) Uric Acid 3.8 MG/DL (2.6-7.2) Calcium Level 7.5 MG/DL (8.5-10.1) Phosphorus Level 2.1 MG/DL (2.5-4.9) Magnesium Level 2.2 MG/DL (1.8-2.4) Total Bilirubin 0.9 MG/DL (0.2-1.0) Aspartate Amino Transf (AST/SGOT) 45 U/L (15-37) Alanine Aminotransferase (ALT/SGPT) 41 U/L (12-78) Alkaline Phosphatase 74 U/L (46-116) C-Reactive Protein, Quantitative 8.3 mg/dL (0.00-0.90) Pro-B-Type Natriuretic Peptide 219 pg/mL (0-125) Total Protein 5.8 G/DL (6.4-8.2) Albumin 1.9 G/DL (3.4-5.0) Globulin 3.9 g/dL Albumin/Globulin Ratio 0.5 (1.0-2.7) Test 06/24/20 18:20 06/25/20 04:30 Lactic Acid Level 2.10 mmol/L (0.66-2.22) White Blood Count 18.4 K/UL (4.8-10.8) Red Blood Count 4.15 M/UL (4.20-5.40) Hemoglobin 12.4 G/DL (12.0-16.0) Hematocrit 38.1 % (37.0-47.0) Mean Corpuscular Volume 92 FL (80-99) Mean Corpuscular Hemoglobin 29.8 PG (27.0-31.0) Mean Corpuscular Hemoglobin Concent 32.5 G/DL (32.0-36.0) Red Cell Distribution Width 12.8 % (11.6-14.8) Platelet Count 193 K/UL (150-450) Mean Platelet Volume 7.9 FL (6.5-10.1) Neutrophils (%) (Auto) % (45.0-75.0) Lymphocytes (%) (Auto) % (20.0-45.0) Monocytes (%) (Auto) % (1.0-10.0) Eosinophils (%) (Auto) % (0.0-3.0) Basophils (%) (Auto) % (0.0-2.0) Sodium Level 141 MMOL/L (136-145) Potassium Level 3.9 MMOL/L (3.5-5.1) Chloride Level 109 MMOL/L (98-107) Carbon Dioxide Level 25 MMOL/L (21-32) Anion Gap 7 mmol/L (5-15) Blood Urea Nitrogen 18 mg/dL (7-18) Creatinine 0.7 MG/DL (0.55-1.30) Estimat Glomerular Filtration Rate > 60 mL/min (>60) Glucose Level 133 MG/DL (74-106) Uric Acid 1.9 MG/DL (2.6-7.2) Calcium Level 7.3 MG/DL (8.5-10.1) Phosphorus Level 2.1 MG/DL (2.5-4.9) Magnesium Level 1.9 MG/DL (1.8-2.4) Total Bilirubin 1.1 MG/DL (0.2-1.0) Direct Bilirubin 0.3 MG/DL (0.0-0.3) Aspartate Amino Transf (AST/SGOT) 55 U/L (15-37) Alanine Aminotransferase (ALT/SGPT) 46 U/L (12-78) Alkaline Phosphatase 92 U/L (46-116) C-Reactive Protein, Quantitative 14.6 mg/dL (0.00-0.90) Pro-B-Type Natriuretic Peptide 139 pg/mL (0-125) Total Protein 5.8 G/DL (6.4-8.2) Albumin 1.7 G/DL (3.4-5.0) Globulin 4.1 g/dL Albumin/Globulin Ratio 0.4 (1.0-2.7) Height (Feet): 5 Height (Inches): 2.00 Weight (Pounds): 138 Objective Physical Exam Vitals: reviewed, abnormal - Interpreted as low by me General: GCS 15 - Sometimes slightly confused, non-toxic, mild distress Head: normocephalic, moist mucus membranes Neck: supple Respiratory: no retraction, no accessory muscle use, respiratory distress - Minimal with tachypnea, crackles Cardiovascular: regular rate, rhythm, no edema Gastrointestinal: normal inspection, non tender, soft Genitourinary: no CVA tenderness Musculoskeletal: back normal Neurologic: alert, oriented x3, grossly normal Psychiatric: mood/affect normal - sometimes confused Skin: no rash, warm/dry Jj Swann MD Jun 25, 2020 06:47
[2020-06-25] MEDS: Midazolam HCl 50mg/10ml vial 50 MG in NS 90 ML IV PRN (06:58)
--- NOTE | 2020-06-25 07:23 | NUR ---
NURSE HAND-OFF REPORT: Latest Vital Signs: Temperature 100.0 , Pulse 103 , B/P 118 /61 , Respiratory Rate 38 , O2 SAT 77 , Mechanical Ventilator, O2 Flow Rate . Vital Sign Comment: EKG Rhythm: Sinus Tachycardia Rhythm change?: N MD Notified?: N - MD Response: Latest Carney Fall Score: 60 Fall Risk: High Risk Safety Measures: Call light Within Reach, Bed Alarm Zone 2, Side Rails Side Rails x3, Bed position Low and Locked. Fall Precautions: Yellow Socks Yellow Gown Door Sign Patient Fall Education Report given to khushi gallardo.
--- NOTE | 2020-06-25 08:00 | NUR ---
NURSE NOTES: Pt rcvd tachypneic rate in the 40's. O2 sats in the 70's. Resp therapist notified and ABG ordered. Peep increased to 5. pt pulled up and repositioned. Bilat chest tubes to 20cm suction and patent. no air leaks present. pt grimaces to stimulation. Versed gtt increasede. Will discuss with Dr. Sewell about sedation and increasing peep. pt with large amount of SQ air in the neck face and chest area.
--- NOTE | 2020-06-25 08:22 | NUR ---
RD ASSESSMENT & RECOMMENDATIONS SEE CARE ACTIVITY FOR COMPLETE ASSESSMENT DAILY ESTIMATED NEEDS: Needs based on Critical care 62.7kg 22-28 kcals/kg 2492-2319 total kcals 1.2-2 g protein/kg 75-125 g total protein 25-30 mL/kg 1662-3388 total fluid mLs NUTRITION DIAGNOSIS: Altered nutrition related lab values r/t clinical status as evidenced by elev BG checks (POC 226 230 128), A1C 7.1, elevated Na(153), elev BUN(34), elev Mg(3.1). CURRENT DIET: NPO ENTERAL NUTRITION RECOMMENDATIONS: Glucerna 1.2 goal of 55ml/hr x24 hrs to provide 1320ml, 1584 kcal, 79g pro, 1063ml free H2O - Now intubated, rec non oral feeds as medically able. - Start Glucerna 1.2 @25ml/hr for 6 hrs, advance as tolerated 10ml/hr q4-6 hrs to goal. - Flush per MD/ HOB over 30 degrees ADDITIONAL RECOMMENDATIONS: 1) Now Intubated-->>Rec OGT/ NGT feeds 2) Maintain D5 while NPO 3) Calibrated bed scale wts 4) Lytes low, replete as able 5) On decadron, close monitoring of BG 6) Feed w/ hemodynamic stability
--- NOTE | 2020-06-25 08:37 | Surgery Progress Note ---
Surgery Progress Note Subjective Procedure Performed 1. right chest tube insertion 2. left chest tube insertion Additional Comments ill appearing b/l ct functional stat 77% peep 0 fio2 100% prognosis guarded imaging reviewed cont ct tos uction Objective Last 24 Hour Vital Signs Date Time Temp Pulse Resp B/P (MAP) Pulse Ox O2 Delivery O2 Flow Rate FiO2 06/25/20 07:00 38 Mechanical Ventilator 100 06/25/20 07:00 103 41 118/61 (80) 77 06/25/20 06:58 35 Mechanical Ventilator 100 06/25/20 06:00 100.0 105 40 113/60 (77) 93 06/25/20 06:00 35 Mechanical Ventilator 100 06/25/20 05:00 110 39 113/54 (73) 78 06/25/20 05:00 35 Mechanical Ventilator 100 06/25/20 04:35 100.0 06/25/20 04:00 110 06/25/20 04:00 30 Mechanical Ventilator 100 06/25/20 04:00 100.0 06/25/20 04:00 101.0 112 46 155/70 (98) 87 06/25/20 04:00 Mechanical Ventilator Mechanical Ventilator 06/25/20 03:34 104 35 100 06/25/20 03:00 108 42 128/60 (82) 83 06/25/20 03:00 30 Mechanical Ventilator 100 06/25/20 02:00 108 43 135/60 (85) 83 06/25/20 02:00 30 Mechanical Ventilator 100 06/25/20 01:25 100 38 100 06/25/20 01:00 105 43 128/61 (83) 83 06/25/20 01:00 38 100 06/25/20 00:00 34 Mechanical Ventilator 100 06/25/20 00:00 Mechanical Ventilator Mechanical Ventilator 06/25/20 00:00 99.8 104 42 119/61 (80) 83 06/24/20 23:03 35 Room Air 100 06/24/20 23:00 99 42 130/64 (86) 86 06/24/20 22:00 99 41 110/59 (76) 85 06/24/20 22:00 30 Mechanical Ventilator 100 06/24/20 21:00 35 Mechanical Ventilator 100 06/24/20 21:00 99.5 98 40 106/58 (74) 83 06/24/20 20:48 100 90/49 06/24/20 20:00 Mechanical Ventilator Mechanical Ventilator 06/24/20 20:00 102 06/24/20 20:00 100.0 103 38 91/47 (62) 86 06/24/20 20:00 100.0 06/24/20 20:00 30 Mechanical Ventilator 100 06/24/20 19:05 106 38 100 06/24/20 19:00 105 38 93/50 (64) 76 06/24/20 19:00 38 Mechanical Ventilator 100 06/24/20 18:00 38 Mechanical Ventilator 100 06/24/20 18:00 100.5 112 40 135/60 (85) 83 06/24/20 17:00 40 Mechanical Ventilator 100 06/24/20 17:00 114 40 153/65 (94) 84 06/24/20 16:45 41 Mechanical Ventilator 100 06/24/20 16:30 42 Mechanical Ventilator 100 06/24/20 16:15 41 Mechanical Ventilator 100 06/24/20 16:00 Mechanical Ventilator Mechanical Ventilator 06/24/20 16:00 108 41 139/85 (103) 85 06/24/20 16:00 42 Mechanical Ventilator 100 06/24/20 16:00 100.0 06/24/20 15:50 100 06/24/20 15:16 101 42 100 06/24/20 15:00 104 35 120/62 (81) 91 06/24/20 15:00 38 Mechanical Ventilator 100 06/24/20 14:30 39 Mechanical Ventilator 100 06/24/20 14:00 40 Mechanical Ventilator 100 06/24/20 14:00 99 36 113/60 (77) 84 06/24/20 13:00 100.3 100 41 112/60 (77) 83 06/24/20 13:00 40 Mechanical Ventilator 100 06/24/20 12:51 100.3 06/24/20 12:04 112 06/24/20 12:00 38 Mechanical Ventilator 100 06/24/20 12:00 Mechanical Ventilator Mechanical Ventilator 06/24/20 12:00 100.9 115 45 149/73 (98) 88 06/24/20 12:00 100.0 06/24/20 11:39 88 39 100 06/24/20 11:04 100.0 06/24/20 11:00 29 Mechanical Ventilator 100 06/24/20 11:00 88 35 113/98 (103) 85 06/24/20 10:00 35 Mechanical Ventilator 100 06/24/20 10:00 98 29 111/70 (84) 83 06/24/20 09:07 95 110/69 06/24/20 09:00 99.4 94 34 110/69 (83) 89 06/24/20 09:00 37 Mechanical Ventilator 100 I&O Intake and Output 06/24/20 06/25/20 19:00 07:00 Intake Total 1893.664 ml 1354 ml Output Total 518 ml 530 ml Balance 1375.664 ml 824 ml Intake IV Total 1743.664 ml 1354 ml Other 150 ml Output Urine Total 460 ml 530 ml Chest Tube Drainage Total 58 ml # Bowel Movements 1 Dressing: dry Drains: other Cardiovascular: RSR Respiratory: decreased breath sounds Abdomen: soft, non-tender, present bowel sounds Extremities: no tenderness, no cyanosis Laboratory Tests Test 06/24/20 12:26 06/24/20 18:20 06/25/20 04:30 06/25/20 08:13 Lactic Acid Level 2.60 mmol/L (0.4-2.0) H 2.10 mmol/L (0.66-2.22) White Blood Count 18.4 K/UL (4.8-10.8) H Red Blood Count 4.15 M/UL (4.20-5.40) L Hemoglobin 12.4 G/DL (12.0-16.0) Hematocrit 38.1 % (37.0-47.0) Mean Corpuscular Volume 92 FL (80-99) Mean Corpuscular Hemoglobin 29.8 PG (27.0-31.0) Mean Corpuscular Hemoglobin Concent 32.5 G/DL (32.0-36.0) Red Cell Distribution Width 12.8 % (11.6-14.8) Platelet Count 193 K/UL (150-450) Mean Platelet Volume 7.9 FL (6.5-10.1) Neutrophils (%) (Auto) % (45.0-75.0) Lymphocytes (%) (Auto) % (20.0-45.0) Monocytes (%) (Auto) % (1.0-10.0) Eosinophils (%) (Auto) % (0.0-3.0) Basophils (%) (Auto) % (0.0-2.0) Neutrophils % (Manual) Pending Lymphocytes % (Manual) Pending Platelet Estimate Pending Platelet Morphology Pending Sodium Level 141 MMOL/L (136-145) Potassium Level 3.9 MMOL/L (3.5-5.1) Chloride Level 109 MMOL/L (98-107) H Carbon Dioxide Level 25 MMOL/L (21-32) Anion Gap 7 mmol/L (5-15) Blood Urea Nitrogen 18 mg/dL (7-18) Creatinine 0.7 MG/DL (0.55-1.30) Estimat Glomerular Filtration Rate > 60 mL/min (>60) Glucose Level 133 MG/DL (74-106) #H Uric Acid 1.9 MG/DL (2.6-7.2) L Calcium Level 7.3 MG/DL (8.5-10.1) L Phosphorus Level 2.1 MG/DL (2.5-4.9) L Magnesium Level 1.9 MG/DL (1.8-2.4) Total Bilirubin 1.1 MG/DL (0.2-1.0) H Direct Bilirubin 0.3 MG/DL (0.0-0.3) Aspartate Amino Transf (AST/SGOT) 55 U/L (15-37) H Alanine Aminotransferase (ALT/SGPT) 46 U/L (12-78) Alkaline Phosphatase 92 U/L (46-116) C-Reactive Protein, Quantitative 14.6 mg/dL (0.00-0.90) H Pro-B-Type Natriuretic Peptide 139 pg/mL (0-125) H Total Protein 5.8 G/DL (6.4-8.2) L Albumin 1.7 G/DL (3.4-5.0) L Globulin 4.1 g/dL Albumin/Globulin Ratio 0.4 (1.0-2.7) L Arterial Blood pH 7.353 (7.350-7.450) Arterial Blood Partial Pressure CO2 46.3 mmHg (35.0-45.0) H Arterial Blood Partial Pressure O2 40.5 mmHg (75.0-100.0) Arterial Blood HCO3 25.2 mmol/L (22.0-26.0) Arterial Blood Oxygen Saturation 74.0 % (95-100) *L Arterial Blood Base Excess -0.7 (-2-2) Amrit Test Positive Plan Problems: (1) Renal insufficiency (2) Elevated d-dimer (3) Dehydration (4) LEONARDO (acute kidney injury) (5) DMII (diabetes mellitus, type 2) (6) Hypoxia (7) Pneumonia due to COVID-19 virus (8) PNA (pneumonia) Elpidio Frazier Jun 25, 2020 08:37
[2020-06-25] MEDS: Docusate 100mg cap ORAL SCH ×3 (08:41→18:00)
[2020-06-25] MEDS: dexAMETHasone 10mg/ml Inj IV SCH (08:41)
[2020-06-25] MEDS: Pantoprazole Inj IVP SCH ×2 (08:41→20:41)
[2020-06-25] MEDS: Enoxaparin 40mg Inj SUBQ SCH (08:41)
[2020-06-25] MEDS: Carvedilol 6.25mg Tab ORAL SCH ×2 (08:42→20:41)
--- NOTE | 2020-06-25 09:33 | Nephrology Progress Note ---
Assessment/Plan Problem List: (1) LEONARDO (acute kidney injury) (2) Dehydration (3) DMII (diabetes mellitus, type 2) (4) Pneumonia due to COVID-19 virus (5) Hypoxia Assessment 70-year-old female presents with COVID-19 pneumonia and hypoxia On admission has BUN of 77 and creatinine of 1.6. Renal failure most likely prerenal and dehydration with possible underlying chronic kidney disease Patient has elevated inflammatory markers Hypoalbuminemia Electrolyte abnormalities Hyperglycemia Plan June 25: Remains intubated. Has bilateral chest tube. Full code. Labs reviewed. Abnormal electrolytes addressed. Albumin bolus given. Continue to monitor renal parameters. Poor prognosis. June 24: Patient in ICU. Intubated. Has bilateral chest tube. Labs reviewed. Renal parameters stable. Low phosphorus addressed. Continue per consultants. Full code. Poor prognosis. June 23: Patient in ICU. Intubated. Due for insertion of a chest tube. Has pneumothorax. Renal parameters are stable. Serum sodium rising. Will adjust IV fluid. Continue per consultants. Patient full code. Prognosis poor. June 22: Labs reviewed. Remains on BiPAP which is not changed to high flow oxygen due to pneumothorax found on chest x-ray. Serum sodium 155. Continues on D5W. Electrolytes within normal limits. Check 2D echocardiogram. Coreg for blood pressure and heart rate. June 21: Status quo. On BiPAP. Full code. Serum sodium 153. Continue D5W. Continue to monitor electrolytes. Continue per consultants. June 20: Patient full code. On BiPAP. Labs reviewed. Serum sodium rising. Will increase D5W to 75 cc an hour. Continue to monitor electrolytes. June 19: IV changed to D5W. Monitor blood sugar. Monitor electrolytes. Medication list reviewed. Patient is being treated for COVID-19 pneumonia. Patient is full code. Previously Pulmonary support IV antibiotics Slow hydration Avoid nephrotoxic Monitor renal parameters Per orders Subjective ROS Limited/Unobtainable: Yes Objective Objective Last 24 Hour Vital Signs Date Time Temp Pulse Resp B/P (MAP) Pulse Ox O2 Delivery O2 Flow Rate FiO2 06/25/20 08:42 100 120/68 06/25/20 08:30 41 Mechanical Ventilator 100 06/25/20 07:00 38 Mechanical Ventilator 100 06/25/20 07:00 103 41 118/61 (80) 77 06/25/20 06:58 35 Mechanical Ventilator 100 06/25/20 06:00 100.0 105 40 113/60 (77) 93 06/25/20 06:00 35 Mechanical Ventilator 100 06/25/20 05:00 110 39 113/54 (73) 78 06/25/20 05:00 35 Mechanical Ventilator 100 06/25/20 04:35 100.0 06/25/20 04:00 110 06/25/20 04:00 30 Mechanical Ventilator 100 06/25/20 04:00 100.0 06/25/20 04:00 101.0 112 46 155/70 (98) 87 06/25/20 04:00 Mechanical Ventilator Mechanical Ventilator 06/25/20 03:34 104 35 100 06/25/20 03:00 108 42 128/60 (82) 83 06/25/20 03:00 30 Mechanical Ventilator 100 06/25/20 02:00 108 43 135/60 (85) 83 06/25/20 02:00 30 Mechanical Ventilator 100 06/25/20 01:25 100 38 100 06/25/20 01:00 105 43 128/61 (83) 83 06/25/20 01:00 38 100 06/25/20 00:00 34 Mechanical Ventilator 100 06/25/20 00:00 Mechanical Ventilator Mechanical Ventilator 06/25/20 00:00 99.8 104 42 119/61 (80) 83 06/24/20 23:03 35 Room Air 100 06/24/20 23:00 99 42 130/64 (86) 86 06/24/20 22:00 99 41 110/59 (76) 85 06/24/20 22:00 30 Mechanical Ventilator 100 06/24/20 21:00 35 Mechanical Ventilator 100 06/24/20 21:00 99.5 98 40 106/58 (74) 83 06/24/20 20:48 100 90/49 06/24/20 20:00 Mechanical Ventilator Mechanical Ventilator 06/24/20 20:00 102 06/24/20 20:00 100.0 103 38 91/47 (62) 86 06/24/20 20:00 100.0 06/24/20 20:00 30 Mechanical Ventilator 100 06/24/20 19:05 106 38 100 06/24/20 19:00 105 38 93/50 (64) 76 06/24/20 19:00 38 Mechanical Ventilator 100 06/24/20 18:00 38 Mechanical Ventilator 100 06/24/20 18:00 100.5 112 40 135/60 (85) 83 06/24/20 17:00 40 Mechanical Ventilator 100 06/24/20 17:00 114 40 153/65 (94) 84 06/24/20 16:45 41 Mechanical Ventilator 100 06/24/20 16:30 42 Mechanical Ventilator 100 06/24/20 16:15 41 Mechanical Ventilator 100 06/24/20 16:00 Mechanical Ventilator Mechanical Ventilator 06/24/20 16:00 108 41 139/85 (103) 85 06/24/20 16:00 42 Mechanical Ventilator 100 06/24/20 16:00 100.0 06/24/20 15:50 100 06/24/20 15:16 101 42 100 06/24/20 15:00 104 35 120/62 (81) 91 06/24/20 15:00 38 Mechanical Ventilator 100 06/24/20 14:30 39 Mechanical Ventilator 100 06/24/20 14:00 40 Mechanical Ventilator 100 06/24/20 14:00 99 36 113/60 (77) 84 06/24/20 13:00 100.3 100 41 112/60 (77) 83 06/24/20 13:00 40 Mechanical Ventilator 100 06/24/20 12:51 100.3 06/24/20 12:04 112 06/24/20 12:00 38 Mechanical Ventilator 100 06/24/20 12:00 Mechanical Ventilator Mechanical Ventilator 06/24/20 12:00 100.9 115 45 149/73 (98) 88 06/24/20 12:00 100.0 06/24/20 11:39 88 39 100 06/24/20 11:04 100.0 06/24/20 11:00 29 Mechanical Ventilator 100 06/24/20 11:00 88 35 113/98 (103) 85 06/24/20 10:00 35 Mechanical Ventilator 100 06/24/20 10:00 98 29 111/70 (84) 83 Intake and Output0 06/24/20 06/25/20 19:00 07:00 Intake Total 1893.664 ml 1354 ml Output Total 518 ml 530 ml Balance 1375.664 ml 824 ml Intake IV Total 1743.664 ml 1354 ml Other 150 ml Output Urine Total 460 ml 530 ml Chest Tube Drainage Total 58 ml # Bowel Movements 1 Current Medications Medications (Trade) Dose Ordered Sig/Maya Route PRN Reason Start Time Stop Time Status Last Admin Dose Admin Acetaminophen (Tylenol) 500 mg Q4H PRN ORAL Mild Pain (Pain Scale 1-3) 06/18/20 00:15 07/18/20 00:14 06/24/20 17:51 Acetaminophen (Tylenol) 500 mg Q4H PRN ORAL Temp >100.5 06/18/20 00:15 07/18/20 00:14 06/25/20 04:05 Carvedilol (Coreg) 6.25 mg EVERY 12 HOURS ORAL 06/22/20 21:00 07/22/20 20:59 06/25/20 08:42 Ceftriaxone Sodium 1 gm/ Dextrose 55 ml @ 110 mls/hr Q24H IVPB 06/23/20 11:00 06/30/20 10:59 06/24/20 12:00 Dexamethasone Sodium Phosphate (Decadron 10mg/ ml Inj) 6 mg DAILY IV 06/18/20 09:45 06/27/20 09:01 06/25/20 08:41 Dextrose 1,000 ml @ 100 mls/hr Q10H IV 06/19/20 13:30 07/19/20 13:29 06/25/20 05:59 Dextrose (Dextrose 50%) 25 ml Q30M PRN IV Hypoglycemia 06/18/20 14:15 09/16/20 14:14 Dextrose (Dextrose 50%) 50 ml Q30M PRN IV Hypoglycemia 06/18/20 14:15 09/16/20 14:14 Docusate Sodium (Colace) 100 mg THREE TIMES A DAY ORAL 06/18/20 13:00 07/18/20 12:59 06/24/20 17:50 Enoxaparin Sodium (Lovenox) 40 mg DAILY SUBQ 06/21/20 09:00 09/19/20 08:59 06/25/20 08:41 Haloperidol Lactate (Haldol) 10 mg Q6H PRN IM Agitation 06/23/20 11:30 08/07/20 11:29 06/23/20 11:34 Insulin Aspart (NovoLOG) while NPO Q6HR SUBQ 06/18/20 18:00 09/16/20 17:59 06/25/20 05:58 Midazolam HCl 50 mg/Sodium Chloride 100 ml @ 0 mls/hr Q24H PRN IV Agitation 06/23/20 12:30 06/25/20 12:29 06/25/20 06:58 Pantoprazole (Protonix) 40 mg EVERY 12 HOURS IVP 06/18/20 21:00 07/18/20 20:59 06/25/20 08:41 Potassium Phosphate 20 mm/ Sodium Chloride 281.6667 ml @ 46.944 m... ONCE ONCE IV 06/25/20 12:00 06/25/20 17:59 Laboratory Tests 06/24/20 12:26: Lactic Acid Level 2.60H 06/24/20 18:20: Lactic Acid Level 2.10 06/25/20 04:30: White Blood Count 18.4H, Red Blood Count 4.15L, Hemoglobin 12.4, Hematocrit 38.1, Mean Corpuscular Volume 92, Mean Corpuscular Hemoglobin 29.8, Mean Corpuscular Hemoglobin Concent 32.5, Red Cell Distribution Width 12.8, Platelet Count 193, Mean Platelet Volume 7.9, Neutrophils (%) (Auto) , Lymphocytes (%) (Auto) , Monocytes (%) (Auto) , Eosinophils (%) (Auto) , Basophils (%) (Auto) , Neutrophils % (Manual) [Pending], Lymphocytes % (Manual) [Pending], Platelet Estimate [Pending], Platelet Morphology [Pending], Sodium Level 141, Potassium Level 3.9, Chloride Level 109H, Carbon Dioxide Level 25, Anion Gap 7, Blood Urea Nitrogen 18, Creatinine 0.7, Estimat Glomerular Filtration Rate > 60, Glucose Level 133#H, Uric Acid 1.9L, Calcium Level 7.3L, Phosphorus Level 2.1L, Magnesium Level 1.9, Total Bilirubin 1.1H, Direct Bilirubin 0.3, Aspartate Amino Transf (AST/SGOT) 55H, Alanine Aminotransferase (ALT/SGPT) 46, Alkaline Phosphatase 92, C-Reactive Protein, Quantitative 14.6H, Pro-B-Type Natriuretic Peptide 139H, Total Protein 5.8L, Albumin 1.7L, Globulin 4.1, Albumin/Globulin Ratio 0.4L 06/25/20 08:13: Arterial Blood pH 7.353, Arterial Blood Partial Pressure CO2 46.3H, Arterial Blood Partial Pressure O2 40.5*L, Arterial Blood HCO3 25.2, Arterial Blood Oxygen Saturation 74.0*L, Arterial Blood Base Excess -0.7, Amrit Test Positive Height (Feet): 5 Height (Inches): 2.00 Weight (Pounds): 138 General Appearance: mild distress EENT: other - Intubated on ventilator Cardiovascular: tachycardia Respiratory/Chest: other - Bilateral chest tube Abdomen: distended Raza De Jesus MD Jun 25, 2020 09:33
--- NOTE | 2020-06-25 09:50 | Infectious Diseases Prog Note ---
Assessment/Plan Assessment/Plan A; Sepsis COVID19 pneumonia Hypoxic respiratory failure Acute kidney injury, resolving Hyperglycemia, DM type 2 Bilateral pneumothorax Leukocytosis P; Finished Remdesivir course Continue Dexamethasone Continue Rocephin Sputum culture Poor prognosis Subjective ROS Limited/Unobtainable: Yes Constitutional: Reports: fever, other - Pk=[id number] Neurologic: Reports: other - sedated on restraint Allergies: Coded Allergies: No Known Allergies (Unverified , 06/17/20) Objective Last 24 Hour Vital Signs Date Time Temp Pulse Resp B/P (MAP) Pulse Ox O2 Delivery O2 Flow Rate FiO2 06/25/20 09:00 97 40 98/62 (74) 80 06/25/20 08:42 100 120/68 06/25/20 08:30 41 Mechanical Ventilator 100 06/25/20 08:00 98 40 120/58 (78) 88 06/25/20 08:00 98 06/25/20 07:00 38 Mechanical Ventilator 100 06/25/20 07:00 103 41 118/61 (80) 77 06/25/20 06:58 35 Mechanical Ventilator 100 06/25/20 06:00 100.0 105 40 113/60 (77) 93 06/25/20 06:00 35 Mechanical Ventilator 100 06/25/20 05:00 110 39 113/54 (73) 78 06/25/20 05:00 35 Mechanical Ventilator 100 06/25/20 04:35 100.0 06/25/20 04:00 110 06/25/20 04:00 30 Mechanical Ventilator 100 06/25/20 04:00 100.0 06/25/20 04:00 101.0 112 46 155/70 (98) 87 06/25/20 04:00 Mechanical Ventilator Mechanical Ventilator 06/25/20 03:34 104 35 100 06/25/20 03:00 108 42 128/60 (82) 83 06/25/20 03:00 30 Mechanical Ventilator 100 06/25/20 02:00 108 43 135/60 (85) 83 06/25/20 02:00 30 Mechanical Ventilator 100 06/25/20 01:25 100 38 100 06/25/20 01:00 105 43 128/61 (83) 83 06/25/20 01:00 38 100 06/25/20 00:00 34 Mechanical Ventilator 100 06/25/20 00:00 Mechanical Ventilator Mechanical Ventilator 06/25/20 00:00 99.8 104 42 119/61 (80) 83 06/24/20 23:03 35 Room Air 100 06/24/20 23:00 99 42 130/64 (86) 86 06/24/20 22:00 99 41 110/59 (76) 85 06/24/20 22:00 30 Mechanical Ventilator 100 06/24/20 21:00 35 Mechanical Ventilator 100 06/24/20 21:00 99.5 98 40 106/58 (74) 83 06/24/20 20:48 100 90/49 06/24/20 20:00 Mechanical Ventilator Mechanical Ventilator 06/24/20 20:00 102 06/24/20 20:00 100.0 103 38 91/47 (62) 86 06/24/20 20:00 100.0 06/24/20 20:00 30 Mechanical Ventilator 100 06/24/20 19:05 106 38 100 06/24/20 19:00 105 38 93/50 (64) 76 06/24/20 19:00 38 Mechanical Ventilator 100 06/24/20 18:00 38 Mechanical Ventilator 100 06/24/20 18:00 100.5 112 40 135/60 (85) 83 06/24/20 17:00 40 Mechanical Ventilator 100 06/24/20 17:00 114 40 153/65 (94) 84 06/24/20 16:45 41 Mechanical Ventilator 100 06/24/20 16:30 42 Mechanical Ventilator 100 06/24/20 16:15 41 Mechanical Ventilator 100 06/24/20 16:00 Mechanical Ventilator Mechanical Ventilator 06/24/20 16:00 108 41 139/85 (103) 85 06/24/20 16:00 42 Mechanical Ventilator 100 06/24/20 16:00 100.0 06/24/20 15:50 100 06/24/20 15:16 101 42 100 06/24/20 15:00 104 35 120/62 (81) 91 06/24/20 15:00 38 Mechanical Ventilator 100 06/24/20 14:30 39 Mechanical Ventilator 100 06/24/20 14:00 40 Mechanical Ventilator 100 06/24/20 14:00 99 36 113/60 (77) 84 06/24/20 13:00 100.3 100 41 112/60 (77) 83 06/24/20 13:00 40 Mechanical Ventilator 100 06/24/20 12:51 100.3 2/3/21 12:04 112 06/24/20 12:00 38 Mechanical Ventilator 100 06/24/20 12:00 Mechanical Ventilator Mechanical Ventilator 06/24/20 12:00 100.9 115 45 149/73 (98) 88 06/24/20 12:00 100.0 06/24/20 11:39 88 39 100 06/24/20 11:04 100.0 06/24/20 11:00 29 Mechanical Ventilator 100 06/24/20 11:00 88 35 113/98 (103) 85 06/24/20 10:00 35 Mechanical Ventilator 100 06/24/20 10:00 98 29 111/70 (84) 83 Height (Feet): 5 Height (Inches): 2.00 Weight (Pounds): 138 HEENT: other - orally intubated Respiratory/Chest: other - on ventilator, [id number]%, bilateral chest tubes Cardiovascular: normal rate Abdomen: soft, non tender Extremities: other - hands edema Neurologic/Psychiatric: other - sedated Laboratory Tests Test 06/24/20 12:26 06/24/20 18:20 06/25/20 04:30 06/25/20 08:13 Lactic Acid Level 2.60 mmol/L (0.4-2.0) H 2.10 mmol/L (0.66-2.22) White Blood Count 18.4 K/UL (4.8-10.8) H Red Blood Count 4.15 M/UL (4.20-5.40) L Hemoglobin 12.4 G/DL (12.0-16.0) Hematocrit 38.1 % (37.0-47.0) Mean Corpuscular Volume 92 FL (80-99) Mean Corpuscular Hemoglobin 29.8 PG (27.0-31.0) Mean Corpuscular Hemoglobin Concent 32.5 G/DL (32.0-36.0) Red Cell Distribution Width 12.8 % (11.6-14.8) Platelet Count 193 K/UL (150-450) Mean Platelet Volume 7.9 FL (6.5-10.1) Neutrophils (%) (Auto) % (45.0-75.0) Lymphocytes (%) (Auto) % (20.0-45.0) Monocytes (%) (Auto) % (1.0-10.0) Eosinophils (%) (Auto) % (0.0-3.0) Basophils (%) (Auto) % (0.0-2.0) Differential Total Cells Counted 100 Neutrophils % (Manual) 95 % (45-75) H Lymphocytes % (Manual) 3 % (20-45) L Monocytes % (Manual) 0 % (1-10) L Eosinophils % (Manual) 0 % (0-3) Basophils % (Manual) 0 % (0-2) Band Neutrophils 2 % (0-8) Platelet Estimate Adequate Platelet Morphology Normal Red Blood Cell Morphology Normal Sodium Level 141 MMOL/L (136-145) Potassium Level 3.9 MMOL/L (3.5-5.1) Chloride Level 109 MMOL/L (98-107) H Carbon Dioxide Level 25 MMOL/L (21-32) Anion Gap 7 mmol/L (5-15) Blood Urea Nitrogen 18 mg/dL (7-18) Creatinine 0.7 MG/DL (0.55-1.30) Estimat Glomerular Filtration Rate > 60 mL/min (>60) Glucose Level 133 MG/DL (74-106) #H Uric Acid 1.9 MG/DL (2.6-7.2) L Calcium Level 7.3 MG/DL (8.5-10.1) L Phosphorus Level 2.1 MG/DL (2.5-4.9) L Magnesium Level 1.9 MG/DL (1.8-2.4) Total Bilirubin 1.1 MG/DL (0.2-1.0) H Direct Bilirubin 0.3 MG/DL (0.0-0.3) Aspartate Amino Transf (AST/SGOT) 55 U/L (15-37) H Alanine Aminotransferase (ALT/SGPT) 46 U/L (12-78) Alkaline Phosphatase 92 U/L (46-116) C-Reactive Protein, Quantitative 14.6 mg/dL (0.00-0.90) H Pro-B-Type Natriuretic Peptide 139 pg/mL (0-125) H Total Protein 5.8 G/DL (6.4-8.2) L Albumin 1.7 G/DL (3.4-5.0) L Globulin 4.1 g/dL Albumin/Globulin Ratio 0.4 (1.0-2.7) L Arterial Blood pH 7.353 (7.350-7.450) Arterial Blood Partial Pressure CO2 46.3 mmHg (35.0-45.0) H Arterial Blood Partial Pressure O2 40.5 mmHg (75.0-100.0) Arterial Blood HCO3 25.2 mmol/L (22.0-26.0) Arterial Blood Oxygen Saturation 74.0 % (95-100) *L Arterial Blood Base Excess -0.7 (-2-2) Amrit Test Positive Current Medications Medications (Trade) Dose Ordered Sig/Maya Route PRN Reason Start Time Stop Time Status Last Admin Dose Admin Acetaminophen (Tylenol) 500 mg Q4H PRN ORAL Mild Pain (Pain Scale 1-3) 06/18/20 00:15 07/18/20 00:14 06/24/20 17:51 Acetaminophen (Tylenol) 500 mg Q4H PRN ORAL Temp >100.5 06/18/20 00:15 07/18/20 00:14 06/25/20 04:05 Albumin Human 500 ml @ 0 mls/hr Q0M IV 06/25/20 09:30 06/25/20 12:00 Carvedilol (Coreg) 6.25 mg EVERY 12 HOURS ORAL 06/22/20 21:00 07/22/20 20:59 06/25/20 08:42 Ceftriaxone Sodium 1 gm/ Dextrose 55 ml @ 110 mls/hr Q24H IVPB 06/23/20 11:00 06/30/20 10:59 06/24/20 12:00 Dexamethasone Sodium Phosphate (Decadron 10mg/ ml Inj) 6 mg DAILY IV 06/18/20 09:45 06/27/20 09:01 06/25/20 08:41 Dextrose 1,000 ml @ 100 mls/hr Q10H IV 06/19/20 13:30 07/19/20 13:29 06/25/20 05:59 Dextrose (Dextrose 50%) 25 ml Q30M PRN IV Hypoglycemia 06/18/20 14:15 09/16/20 14:14 Dextrose (Dextrose 50%) 50 ml Q30M PRN IV Hypoglycemia 06/18/20 14:15 09/16/20 14:14 Docusate Sodium (Colace) 100 mg THREE TIMES A DAY ORAL 06/18/20 13:00 07/18/20 12:59 06/24/20 17:50 Enoxaparin Sodium (Lovenox) 40 mg DAILY SUBQ 06/21/20 09:00 09/19/20 08:59 06/25/20 08:41 Haloperidol Lactate (Haldol) 10 mg Q6H PRN IM Agitation 06/23/20 11:30 08/07/20 11:29 06/23/20 11:34 Insulin Aspart (NovoLOG) while NPO Q6HR SUBQ 06/18/20 18:00 09/16/20 17:59 06/25/20 05:58 Midazolam HCl 50 mg/Sodium Chloride 100 ml @ 0 mls/hr Q24H PRN IV Agitation 06/23/20 12:30 06/25/20 12:29 06/25/20 06:58 Pantoprazole (Protonix) 40 mg EVERY 12 HOURS IVP 06/18/20 21:00 07/18/20 20:59 06/25/20 08:41 Potassium Phosphate 20 mm/ Sodium Chloride 281.6667 ml @ 46.944 m... ONCE ONCE IV 06/25/20 12:00 06/25/20 17:59 Raji Turpin MD Jun 25, 2020 09:50
--- NOTE | 2020-06-25 10:15 | NUR ---
NURSE NOTES: Dr. Sewell in to see pt. Discussed pt status. Rcvd order for Fentanyl gtt and order to increase peep to 10 as tolerated. pt remains tachypneic. O2 sats slightly better. Will continue to monitor pt.
--- NOTE | 2020-06-25 10:23 | Cardiac Electrophysiology PN ---
Assessment/Plan Assessment/Plan 1. Respiratory failure likely due to COVID pneumonia. Intubated on 100% Fio2. Echocardiogram showed ejection fraction within normal range. 2. Bilateral pneumothoraces. S/P bilateral chest tube placement with around 100cc drainage over night 3. Troponin elevation. Levels are low and flat could be demand ischemia vs Renal failure EKG shows sinus tachycardia at 110 beats per minute. 4. Hypernatremia with sodium of 155. IV fluids per Dr. De Jesus. 5. Azotemia, BUN 31 and creatinine 0.8. 6. The patient is also COVID-19 positive and is in isolation, on dexamethasone, completed Remdesivir. 7. Hypertension, on Coreg 6.25 mg b.i.d. Subjective Subjective Intubated in ICU on Versed drip at 8 mg/hr. Has bilateral chest tube drainage. Has severe SQ emphysema. On 100% Fio2 . Off pressors Objective Last 24 Hour Vital Signs Date Time Temp Pulse Resp B/P (MAP) Pulse Ox O2 Delivery O2 Flow Rate FiO2 06/25/20 09:00 97 40 98/62 (74) 80 06/25/20 08:42 100 120/68 06/25/20 08:30 41 Mechanical Ventilator 100 06/25/20 08:00 98 40 120/58 (78) 88 06/25/20 08:00 98 06/25/20 07:37 105 42 100 06/25/20 07:00 38 Mechanical Ventilator 100 06/25/20 07:00 103 41 118/61 (80) 77 06/25/20 06:58 35 Mechanical Ventilator 100 06/25/20 06:00 100.0 105 40 113/60 (77) 93 06/25/20 06:00 35 Mechanical Ventilator 100 06/25/20 05:00 110 39 113/54 (73) 78 06/25/20 05:00 35 Mechanical Ventilator 100 06/25/20 04:35 100.0 06/25/20 04:00 110 06/25/20 04:00 30 Mechanical Ventilator 100 06/25/20 04:00 100.0 06/25/20 04:00 101.0 112 46 155/70 (98) 87 06/25/20 04:00 Mechanical Ventilator Mechanical Ventilator 06/25/20 03:34 104 35 100 06/25/20 03:00 108 42 128/60 (82) 83 06/25/20 03:00 30 Mechanical Ventilator 100 06/25/20 02:00 108 43 135/60 (85) 83 06/25/20 02:00 30 Mechanical Ventilator 100 06/25/20 01:25 100 38 100 06/25/20 01:00 105 43 128/61 (83) 83 06/25/20 01:00 38 100 06/25/20 00:00 34 Mechanical Ventilator 100 06/25/20 00:00 Mechanical Ventilator Mechanical Ventilator 06/25/20 00:00 99.8 104 42 119/61 (80) 83 06/24/20 23:03 35 Room Air 100 06/24/20 23:00 99 42 130/64 (86) 86 06/24/20 22:00 99 41 110/59 (76) 85 06/24/20 22:00 30 Mechanical Ventilator 100 06/24/20 21:00 35 Mechanical Ventilator 100 06/24/20 21:00 99.5 98 40 106/58 (74) 83 06/24/20 20:48 100 90/49 06/24/20 20:00 Mechanical Ventilator Mechanical Ventilator 06/24/20 20:00 102 06/24/20 20:00 100.0 103 38 91/47 (62) 86 06/24/20 20:00 100.0 06/24/20 20:00 30 Mechanical Ventilator 100 06/24/20 19:05 106 38 100 06/24/20 19:00 105 38 93/50 (64) 76 06/24/20 19:00 38 Mechanical Ventilator 100 06/24/20 18:00 38 Mechanical Ventilator 100 06/24/20 18:00 100.5 112 40 135/60 (85) 83 06/24/20 17:00 40 Mechanical Ventilator 100 06/24/20 17:00 114 40 153/65 (94) 84 06/24/20 16:45 41 Mechanical Ventilator 100 06/24/20 16:30 42 Mechanical Ventilator 100 06/24/20 16:15 41 Mechanical Ventilator 100 06/24/20 16:00 Mechanical Ventilator Mechanical Ventilator 06/24/20 16:00 108 41 139/85 (103) 85 06/24/20 16:00 42 Mechanical Ventilator 100 06/24/20 16:00 100.0 06/24/20 15:50 100 06/24/20 15:16 101 42 100 06/24/20 15:00 104 35 120/62 (81) 91 06/24/20 15:00 38 Mechanical Ventilator 100 06/24/20 14:30 39 Mechanical Ventilator 100 06/24/20 14:00 40 Mechanical Ventilator 100 06/24/20 14:00 99 36 113/60 (77) 84 06/24/20 13:00 100.3 100 41 112/60 (77) 83 06/24/20 13:00 40 Mechanical Ventilator 100 06/24/20 12:51 100.3 06/24/20 12:04 112 06/24/20 12:00 38 Mechanical Ventilator 100 06/24/20 12:00 Mechanical Ventilator Mechanical Ventilator 06/24/20 12:00 100.9 115 45 149/73 (98) 88 06/24/20 12:00 100.0 06/24/20 11:39 88 39 100 06/24/20 11:04 100.0 06/24/20 11:00 29 Mechanical Ventilator 100 06/24/20 11:00 88 35 113/98 (103) 85 Intake and Output 06/24/20 06/25/20 19:00 07:00 Intake Total 1893.664 ml 1354 ml Output Total 518 ml 530 ml Balance 1375.664 ml 824 ml Intake IV Total 1743.664 ml 1354 ml Other 150 ml Output Urine Total 460 ml 530 ml Chest Tube Drainage Total 58 ml # Bowel Movements 1 Laboratory Tests Test 06/24/20 12:26 06/24/20 18:20 06/25/20 04:30 06/25/20 08:13 Lactic Acid Level 2.60 mmol/L (0.4-2.0) H 2.10 mmol/L (0.66-2.22) White Blood Count 18.4 K/UL (4.8-10.8) H Red Blood Count 4.15 M/UL (4.20-5.40) L Hemoglobin 12.4 G/DL (12.0-16.0) Hematocrit 38.1 % (37.0-47.0) Mean Corpuscular Volume 92 FL (80-99) Mean Corpuscular Hemoglobin 29.8 PG (27.0-31.0) Mean Corpuscular Hemoglobin Concent 32.5 G/DL (32.0-36.0) Red Cell Distribution Width 12.8 % (11.6-14.8) Platelet Count 193 K/UL (150-450) Mean Platelet Volume 7.9 FL (6.5-10.1) Neutrophils (%) (Auto) % (45.0-75.0) Lymphocytes (%) (Auto) % (20.0-45.0) Monocytes (%) (Auto) % (1.0-10.0) Eosinophils (%) (Auto) % (0.0-3.0) Basophils (%) (Auto) % (0.0-2.0) Differential Total Cells Counted 100 Neutrophils % (Manual) 95 % (45-75) H Lymphocytes % (Manual) 3 % (20-45) L Monocytes % (Manual) 0 % (1-10) L Eosinophils % (Manual) 0 % (0-3) Basophils % (Manual) 0 % (0-2) Band Neutrophils 2 % (0-8) Platelet Estimate Adequate Platelet Morphology Normal Red Blood Cell Morphology Normal Sodium Level 141 MMOL/L (136-145) Potassium Level 3.9 MMOL/L (3.5-5.1) Chloride Level 109 MMOL/L (98-107) H Carbon Dioxide Level 25 MMOL/L (21-32) Anion Gap 7 mmol/L (5-15) Blood Urea Nitrogen 18 mg/dL (7-18) Creatinine 0.7 MG/DL (0.55-1.30) Estimat Glomerular Filtration Rate > 60 mL/min (>60) Glucose Level 133 MG/DL (74-106) #H Uric Acid 1.9 MG/DL (2.6-7.2) L Calcium Level 7.3 MG/DL (8.5-10.1) L Phosphorus Level 2.1 MG/DL (2.5-4.9) L Magnesium Level 1.9 MG/DL (1.8-2.4) Total Bilirubin 1.1 MG/DL (0.2-1.0) H Direct Bilirubin 0.3 MG/DL (0.0-0.3) Aspartate Amino Transf (AST/SGOT) 55 U/L (15-37) H Alanine Aminotransferase (ALT/SGPT) 46 U/L (12-78) Alkaline Phosphatase 92 U/L (46-116) C-Reactive Protein, Quantitative 14.6 mg/dL (0.00-0.90) H Pro-B-Type Natriuretic Peptide 139 pg/mL (0-125) H Total Protein 5.8 G/DL (6.4-8.2) L Albumin 1.7 G/DL (3.4-5.0) L Globulin 4.1 g/dL Albumin/Globulin Ratio 0.4 (1.0-2.7) L Arterial Blood pH 7.353 (7.350-7.450) Arterial Blood Partial Pressure CO2 46.3 mmHg (35.0-45.0) H Arterial Blood Partial Pressure O2 40.5 mmHg (75.0-100.0) Arterial Blood HCO3 25.2 mmol/L (22.0-26.0) Arterial Blood Oxygen Saturation 74.0 % (95-100) *L Arterial Blood Base Excess -0.7 (-2-2) Amrit Test Positive Objective HEAD AND NECK: No JVD.Orally intubated with SQ emphysema LUNGS: Coarse rhonchi bilaterally. Bilateral chest tube in. CARDIOVASCULAR: Regular S1 and S2 and tachycardic. ABDOMEN: Soft. EXTREMITIES: No pitting edema. Maxwell Carreon MD Jun 25, 2020 10:23
--- NOTE | 2020-06-25 11:06 | Pulmonology Progress Note ---
Subjective ROS Limited/Unobtainable: Yes Interval Events: Remains intubated Constitutional: Reports: fever, other - [id number] HEENT: Repors: no symptoms Respiratory: Reports: shortness of breath Cardiovascular: Reports: no symptoms Gastrointestinal/Abdominal: Reports: no symptoms Allergies: Coded Allergies: No Known Allergies (Unverified , 06/17/20) All Systems: reviewed and negative except above Objective Last 24 Hour Vital Signs Date Time Temp Pulse Resp B/P (MAP) Pulse Ox O2 Delivery O2 Flow Rate FiO2 06/25/20 09:00 97 40 98/62 (74) 80 06/25/20 08:42 100 120/68 06/25/20 08:30 41 Mechanical Ventilator 100 06/25/20 08:00 40 Mechanical Ventilator 100 06/25/20 08:00 98 40 120/58 (78) 88 06/25/20 08:00 98 06/25/20 07:37 105 42 100 06/25/20 07:00 38 Mechanical Ventilator 100 06/25/20 07:00 103 41 118/61 (80) 77 06/25/20 06:58 35 Mechanical Ventilator 100 06/25/20 06:00 100.0 105 40 113/60 (77) 93 06/25/20 06:00 35 Mechanical Ventilator 100 06/25/20 05:00 110 39 113/54 (73) 78 06/25/20 05:00 35 Mechanical Ventilator 100 06/25/20 04:35 100.0 06/25/20 04:00 110 06/25/20 04:00 30 Mechanical Ventilator 100 06/25/20 04:00 100.0 06/25/20 04:00 101.0 112 46 155/70 (98) 87 06/25/20 04:00 Mechanical Ventilator Mechanical Ventilator 06/25/20 03:34 104 35 100 06/25/20 03:00 108 42 128/60 (82) 83 06/25/20 03:00 30 Mechanical Ventilator 100 06/25/20 02:00 108 43 135/60 (85) 83 06/25/20 02:00 30 Mechanical Ventilator 100 06/25/20 01:25 100 38 100 06/25/20 01:00 105 43 128/61 (83) 83 06/25/20 01:00 38 100 06/25/20 00:00 34 Mechanical Ventilator 100 06/25/20 00:00 Mechanical Ventilator Mechanical Ventilator 06/25/20 00:00 99.8 104 42 119/61 (80) 83 06/24/20 23:03 35 Room Air 100 06/24/20 23:00 99 42 130/64 (86) 86 06/24/20 22:00 99 41 110/59 (76) 85 06/24/20 22:00 30 Mechanical Ventilator 100 06/24/20 21:00 35 Mechanical Ventilator 100 06/24/20 21:00 99.5 98 40 106/58 (74) 83 06/24/20 20:48 100 90/49 06/24/20 20:00 Mechanical Ventilator Mechanical Ventilator 06/24/20 20:00 102 06/24/20 20:00 100.0 103 38 91/47 (62) 86 06/24/20 20:00 100.0 06/24/20 20:00 30 Mechanical Ventilator 100 06/24/20 19:05 106 38 100 06/24/20 19:00 105 38 93/50 (64) 76 06/24/20 19:00 38 Mechanical Ventilator 100 06/24/20 18:00 38 Mechanical Ventilator 100 06/24/20 18:00 100.5 112 40 135/60 (85) 83 06/24/20 17:00 40 Mechanical Ventilator 100 06/24/20 17:00 114 40 153/65 (94) 84 06/24/20 16:45 41 Mechanical Ventilator 100 06/24/20 16:30 42 Mechanical Ventilator 100 06/24/20 16:15 41 Mechanical Ventilator 100 06/24/20 16:00 Mechanical Ventilator Mechanical Ventilator 06/24/20 16:00 108 41 139/85 (103) 85 06/24/20 16:00 42 Mechanical Ventilator 100 06/24/20 16:00 100.0 06/24/20 15:50 100 06/24/20 15:16 101 42 100 06/24/20 15:00 104 35 120/62 (81) 91 06/24/20 15:00 38 Mechanical Ventilator 100 06/24/20 14:30 39 Mechanical Ventilator 100 06/24/20 14:00 40 Mechanical Ventilator 100 06/24/20 14:00 99 36 113/60 (77) 84 06/24/20 13:00 100.3 100 41 112/60 (77) 83 06/24/20 13:00 40 Mechanical Ventilator 100 06/24/20 12:51 100.3 06/24/20 12:04 112 06/24/20 12:00 38 Mechanical Ventilator 100 06/24/20 12:00 Mechanical Ventilator Mechanical Ventilator 06/24/20 12:00 100.9 115 45 149/73 (98) 88 06/24/20 12:00 100.0 06/24/20 11:39 88 39 100 Intake and Output 06/24/20 06/25/20 19:00 07:00 Intake Total 1893.664 ml 1354 ml Output Total 518 ml 530 ml Balance 1375.664 ml 824 ml IV Total 1743.664 ml 1354 ml Other 150 ml Output Urine Total 460 ml 530 ml Chest Tube Drainage Total 58 ml # Bowel Movements 1 General Appearance: no acute distress HEENT: atraumatic Respiratory: crackles/rales Cardiovascular: normal rate Abdomen: soft, non tender Laboratory Tests 06/24/20 12:26: Lactic Acid Level 2.60H 06/24/20 18:20: Lactic Acid Level 2.10 06/25/20 04:30: White Blood Count 18.4H, Red Blood Count 4.15L, Hemoglobin 12.4, Hematocrit 38.1, Mean Corpuscular Volume 92, Mean Corpuscular Hemoglobin 29.8, Mean Corpuscular Hemoglobin Concent 32.5, Red Cell Distribution Width 12.8, Platelet Count 193, Mean Platelet Volume 7.9, Neutrophils (%) (Auto) , Lymphocytes (%) (Auto) , Monocytes (%) (Auto) , Eosinophils (%) (Auto) , Basophils (%) (Auto) , Differential Total Cells Counted 100, Neutrophils % (Manual) 95H, Lymphocytes % (Manual) 3L, Monocytes % (Manual) 0L, Eosinophils % (Manual) 0, Basophils % (Manual) 0, Band Neutrophils 2, Platelet Estimate Adequate, Platelet Morphology Normal, Red Blood Cell Morphology Normal, Sodium Level 141, Potassium Level 3.9, Chloride Level 109H, Carbon Dioxide Level 25, Anion Gap 7, Blood Urea Nitrogen 18, Creatinine 0.7, Estimat Glomerular Filtration Rate > 60, Glucose Level 133#H , Uric Acid 1.9L, Calcium Level 7.3L, Phosphorus Level 2.1L, Magnesium Level 1.9, Total Bilirubin 1.1H, Direct Bilirubin 0.3, Aspartate Amino Transf (AST/SGOT) 55H, Alanine Aminotransferase (ALT/SGPT) 46, Alkaline Phosphatase 92, C-Reactive Protein, Quantitative 14.6H, Pro-B-Type Natriuretic Peptide 139H, Total Protein 5.8L, Albumin 1.7L, Globulin 4.1, Albumin/Globulin Ratio 0.4L 06/25/20 08:13: Arterial Blood pH 7.353, Arterial Blood Partial Pressure CO2 46.3H, Arterial Blood Partial Pressure O2 40.5*L, Arterial Blood HCO3 25.2, Arterial Blood Oxygen Saturation 74.0*L, Arterial Blood Base Excess -0.7, Amrit Test Positive Current Medications Medications (Trade) Dose Ordered Sig/Maya Route PRN Reason Start Time Stop Time Status Last Admin Dose Admin Acetaminophen (Tylenol) 500 mg Q4H PRN ORAL Mild Pain (Pain Scale 1-3) 06/18/20 00:15 07/18/20 00:14 06/24/20 17:51 Acetaminophen (Tylenol) 500 mg Q4H PRN ORAL Temp >100.5 06/18/20 00:15 07/18/20 00:14 06/25/20 04:05 Albumin Human 500 ml @ 0 mls/hr Q0M IV 06/25/20 09:30 06/25/20 12:00 Carvedilol (Coreg) 6.25 mg EVERY 12 HOURS ORAL 06/22/20 21:00 07/22/20 20:59 06/25/20 08:42 Ceftriaxone Sodium 1 gm/ Dextrose 55 ml @ 110 mls/hr Q24H IVPB 06/23/20 11:00 06/30/20 10:59 06/24/20 12:00 Dexamethasone Sodium Phosphate (Decadron 10mg/ ml Inj) 6 mg DAILY IV 06/18/20 09:45 06/27/20 09:01 06/25/20 08:41 Dextrose 1,000 ml @ 100 mls/hr Q10H IV 06/19/20 13:30 07/19/20 13:29 06/25/20 05:59 Dextrose (Dextrose 50%) 25 ml Q30M PRN IV Hypoglycemia 06/18/20 14:15 09/16/20 14:14 Dextrose (Dextrose 50%) 50 ml Q30M PRN IV Hypoglycemia 06/18/20 14:15 09/16/20 14:14 Docusate Sodium (Colace) 100 mg THREE TIMES A DAY ORAL 06/18/20 13:00 07/18/20 12:59 06/24/20 17:50 Enoxaparin Sodium (Lovenox) 40 mg DAILY SUBQ 06/21/20 09:00 09/19/20 08:59 06/25/20 08:41 Fentanyl Citrate 250 ml @ 1 mls/hr Q24H IV 06/25/20 10:45 06/27/20 10:44 Haloperidol Lactate (Haldol) 10 mg Q6H PRN IM Agitation 06/23/20 11:30 08/07/20 11:29 06/23/20 11:34 Insulin Aspart (NovoLOG) while NPO Q6HR SUBQ 06/18/20 18:00 09/16/20 17:59 06/25/20 05:58 Midazolam HCl 50 mg/Sodium Chloride 100 ml @ 0 mls/hr Q24H PRN IV Agitation 06/23/20 12:30 06/25/20 12:29 06/25/20 06:58 Pantoprazole (Protonix) 40 mg EVERY 12 HOURS IVP 06/18/20 21:00 07/18/20 20:59 06/25/20 08:41 Potassium Phosphate 20 mm/ Sodium Chloride 281.6667 ml @ 46.944 m... ONCE ONCE IV 06/25/20 12:00 06/25/20 17:59 Assessment/Plan Assessment/Plan 1. COVID-19 pneumonia -Intubated, on 100% FiO2. PEEP 5. -Will increase PEEP as peak pressures tolerate. -On Decadron, s/p remdesivir 2. Leukocytosis -Likely secondary to #1 -WBC improving 3. Elevated D-dimer -Venous duplex ultrasound negative for DVT -Was on full dose Lovenox, switched to 40 subcu QD for DVT prophylaxis 4. Renal insufficiency -On IV fluids - nephro following 5. Anemia of chronic disease -Hematology oncology following 6. Sepsis -Status post antibiotics, fluid resuscitation 7. Pneumothorax 06/22/20 - b/l subcutaneous emphysema, pneumomediastinum, probable small left pneumothorax & ? trace right pneumothorax. -Pleur-evac adjusted by RN - placed CT by surgery (bilateral) - will need to increase PEEP given hypoxemia Charlie Sewell MD Jun 25, 2020 11:06
--- NOTE | 2020-06-25 11:25 | NUR ---
NURSE NOTES: Peep increased to 8. O2 sats 78%. Peak pressures increases to 50's but slowly comes down to low 40's.
[2020-06-25] MEDS ORDERED: Potassium Phosphate 20 MM in NS 275 ML IV ONE (12:00)
[2020-06-25] MEDS: cefTRIAXone 1 GM in D5W 55 ML IVPB SCH (12:03)
[2020-06-25] MEDS: fentaNYL 2500mcg/NS 250ml 250 ML IV SCH (12:05)
--- NOTE | 2020-06-25 12:30 | NUR ---
Pt tolerating increased peep well. o2 sats up to 86-87%. Will start Fentanyl gtt when IV fluid comes from pharmacy. no other changes noted.
--- NOTE | 2020-06-25 14:30 | NUR ---
NURSE NOTES: Fentanyl gtt titrated up for sedation and vent synchrony. No s/s of distress. Sats and VS are stable.
--- NOTE | 2020-06-25 15:00 | NUR ---
CASE MANAGEMENT:REVIEW 06/25/20 SI: COVID PNA. HYPOXIA ~ INTUBATED 99.2 94 37 98/62 87% ON VENT SUPPORT W/100% FIO2 WBC+18.4 PCO2+46.3 PO2-40.5 IS: IV ALBUMIN 50ML ``FENTANYL GTT IV K-PHOS X1 IV ROCEPHIN Q24 COREG NG Q12 IV DECADRON QD IVF@100/HR IV PROTONIX Q12 LOVENOX SQ Q12 : ICU STATUS DCP: FROM HOME PLAN: COMPLETED REMDESIVIR ~ WEAN OXYGEN WHEN ABLE
--- NOTE | 2020-06-25 16:00 | NUR ---
NURSE NOTES: Pt resting quietly. adequately sedated. Fentanyl @ 50mcg/hr and Versed @ 8mg/hr. O2 sats @ 87%. Resp rate @ 36. VSS.
[2020-06-25] MEDS: Midazolam HCl 50mg/10ml vial 100 MG in NS 180 ML IV PRN (16:48)
--- NOTE | 2020-06-25 18:15 | NUR ---
NURSE NOTES: Pt resting quietly. No s/s of distress. Sedation in use. VSS. CTs patent without air leak.
--- NOTE | 2020-06-25 19:17 | NUR ---
NURSE HAND-OFF REPORT: Latest Vital Signs: Temperature 97.6 , Pulse 74 , B/P 118 /52 , Respiratory Rate 16 , O2 SAT 88 , Mechanical Ventilator, O2 Flow Rate . Vital Sign Comment: EKG Rhythm: Sinus Rhythm Rhythm change?: N MD Notified?: N - MD Response: Latest Canrey Fall Score: 60 Fall Risk: High Risk Safety Measures: Call light Within Reach, Bed Alarm Zone 2, Side Rails Side Rails x3, Bed position Low and Locked. Fall Precautions: Yellow Socks Yellow Gown Door Sign Patient Fall Education Report given to NORMAN Alfredo.
--- NOTE | 2020-06-25 19:20 | NUR ---
NURSE NOTES: Received patient from NORMAN Baires. patient is sedated. sinus rhythm on the monitor. ETT 7.5, 23cm at the lip. vent settings AC 16 TV 400 FiO2 100% PEEP 8, O2 saturation 85%. OGT in place, currently NPO. helms in place and draining well to gravity. Fentanyl @50mcg/hr, versed @5mg/hr. bilateral chest tubes in place draining serosanguineous. bed to lowest position and locked. call light within easy reach. side rails up x2. will continue plan of care.
[2020-06-25] MEDS ORDERED: Haloperidol 5mg/ml Inj IM PRN (19:30)
--- NOTE | 2020-06-25 20:46 | General Progress Note ---
Subjective ROS Limited/Unobtainable: Yes Allergies: Coded Allergies: No Known Allergies (Unverified , 06/17/20) Objective Last 24 Hour Vital Signs Date Time Temp Pulse Resp B/P (MAP) Pulse Ox O2 Delivery O2 Flow Rate FiO2 06/25/20 20:41 80 107/52 06/25/20 20:30 80 25 107/52 (70) 87 06/25/20 20:00 98.7 79 44 108/56 (73) 87 06/25/20 19:30 80 28 100 06/25/20 19:00 80 42 108/53 (71) 87 06/25/20 18:45 80 35 106/55 (72) 87 06/25/20 18:30 79 30 106/59 (75) 85 06/25/20 18:15 79 28 102/55 (71) 86 06/25/20 18:00 78 33 86 06/25/20 18:00 78 33 108/53 (71) 86 06/25/20 17:45 77 31 107/57 (74) 86 06/25/20 17:30 78 32 105/52 (69) 86 06/25/20 17:15 80 33 109/53 (71) 86 06/25/20 17:00 81 30 114/55 (74) 85 06/25/20 17:00 34 114/55 Mechanical Ventilator 100 06/25/20 16:48 38 Mechanical Ventilator 100 06/25/20 16:45 80 32 111/53 (72) 85 06/25/20 16:30 82 35 109/56 (73) 84 06/25/20 16:15 82 43 113/59 (77) 83 06/25/20 16:00 100 06/25/20 16:00 83 06/25/20 16:00 98.3 82 33 109/54 (72) 84 06/25/20 16:00 33 109/54 Mechanical Ventilator 100 06/25/20 16:00 Endotracheal Tube Endotracheal Tube 06/25/20 15:45 83 34 109/56 (73) 84 06/25/20 15:32 83 35 100 06/25/20 15:30 84 35 110/54 (72) 87 06/25/20 15:15 85 35 106/62 (77) 87 06/25/20 15:00 30 99/55 Mechanical Ventilator 100 06/25/20 15:00 84 34 105/53 (70) 87 06/25/20 14:45 86 35 112/61 (78) 88 06/25/20 14:30 25 132/74 Mechanical Ventilator 91 06/25/20 14:30 88 35 115/61 (79) 88 06/25/20 14:15 88 35 117/57 (77) 87 06/25/20 14:00 26 93/41 Mechanical Ventilator 100 06/25/20 14:00 90 36 121/64 (83) 86 06/25/20 13:45 90 36 124/62 (82) 85 06/25/20 13:30 32 193/86 Mechanical Ventilator 100 06/25/20 13:30 91 37 122/62 (82) 86 06/25/20 13:15 94 37 127/63 (84) 85 06/25/20 13:00 29 103/61 Mechanical Ventilator 100 06/25/20 13:00 93 37 112/60 (77) 86 06/25/20 12:05 39 107/65 Mechanical Ventilator 100 06/25/20 12:00 Endotracheal Tube Endotracheal Tube 06/25/20 12:00 99.2 93 37 118/64 (82) 87 06/25/20 12:00 94 06/25/20 12:00 29 Mechanical Ventilator 100 06/25/20 12:00 100 06/25/20 11:38 93 37 100 06/25/20 11:30 100 06/25/20 11:00 96 39 125/63 (83) 83 06/25/20 11:00 27 118/80 100 06/25/20 10:00 98 38 114/63 (80) 87 06/25/20 09:00 97 40 98/62 (74) 80 06/25/20 08:42 100 120/68 06/25/20 08:30 100 06/25/20 08:30 41 Mechanical Ventilator 100 06/25/20 08:00 Endotracheal Tube Endotracheal Tube 06/25/20 08:00 40 Mechanical Ventilator 100 06/25/20 08:00 98 40 120/58 (78) 88 06/25/20 08:00 100 06/25/20 08:00 98 06/25/20 07:37 105 42 100 06/25/20 07:00 38 Mechanical Ventilator 100 06/25/20 07:00 103 41 118/61 (80) 77 06/25/20 06:58 35 Mechanical Ventilator 100 06/25/20 06:00 100.0 105 40 113/60 (77) 93 06/25/20 06:00 35 Mechanical Ventilator 100 06/25/20 05:00 110 39 113/54 (73) 78 06/25/20 05:00 35 Mechanical Ventilator 100 06/25/20 04:35 100.0 06/25/20 04:00 110 06/25/20 04:00 30 Mechanical Ventilator 100 06/25/20 04:00 100.0 06/25/20 04:00 101.0 112 46 155/70 (98) 87 06/25/20 04:00 Mechanical Ventilator Mechanical Ventilator 06/25/20 03:34 104 35 100 06/25/20 03:00 108 42 128/60 (82) 83 06/25/20 03:00 30 Mechanical Ventilator 100 06/25/20 02:00 108 43 135/60 (85) 83 06/25/20 02:00 30 Mechanical Ventilator 100 06/25/20 01:25 100 38 100 06/25/20 01:00 105 43 128/61 (83) 83 06/25/20 01:00 38 100 06/25/20 00:00 34 Mechanical Ventilator 100 06/25/20 00:00 Mechanical Ventilator Mechanical Ventilator 06/25/20 00:00 99.8 104 42 119/61 (80) 83 06/24/20 23:03 35 Room Air 100 06/24/20 23:00 99 42 130/64 (86) 86 06/24/20 22:00 99 41 110/59 (76) 85 06/24/20 22:00 30 Mechanical Ventilator 100 06/24/20 21:00 35 Mechanical Ventilator 100 06/24/20 21:00 99.5 98 40 106/58 (74) 83 06/24/20 20:48 100 90/49 Intake and Output 06/24/20 06/25/20 19:00 07:00 Intake Total 1893.664 ml 1354 ml Output Total 518 ml 530 ml Balance 1375.664 ml 824 ml IV Total 1743.664 ml 1354 ml Other 150 ml Output Urine Total 460 ml 530 ml Chest Tube Drainage Total 58 ml # Bowel Movements 1 Laboratory Tests 06/25/20 04:30: White Blood Count 18.4H, Red Blood Count 4.15L, Hemoglobin 12.4, Hematocrit 38.1, Mean Corpuscular Volume 92, Mean Corpuscular Hemoglobin 29.8, Mean Corpuscular Hemoglobin Concent 32.5, Red Cell Distribution Width 12.8, Platelet Count 193, Mean Platelet Volume 7.9, Neutrophils (%) (Auto) , Lymphocytes (%) (Auto) , Monocytes (%) (Auto) , Eosinophils (%) (Auto) , Basophils (%) (Auto) , Differential Total Cells Counted 100, Neutrophils % (Manual) 95H, Lymphocytes % (Manual) 3L, Monocytes % (Manual) 0L, Eosinophils % (Manual) 0, Basophils % (Manual) 0, Band Neutrophils 2, Platelet Estimate Adequate, Platelet Morphology Normal, Red Blood Cell Morphology Normal, Sodium Level 141, Potassium Level 3.9, Chloride Level 109H, Carbon Dioxide Level 25, Anion Gap 7, Blood Urea Nitrogen 18, Creatinine 0.7, Estimat Glomerular Filtration Rate > 60, Glucose Level 133#H , Uric Acid 1.9L, Calcium Level 7.3L, Phosphorus Level 2.1L, Magnesium Level 1.9, Total Bilirubin 1.1H, Direct Bilirubin 0.3, Aspartate Amino Transf (AST/SGOT) 55H, Alanine Aminotransferase (ALT/SGPT) 46, Alkaline Phosphatase 92, C-Reactive Protein, Quantitative 14.6H, Pro-B-Type Natriuretic Peptide 139H, Total Protein 5.8L, Albumin 1.7L, Globulin 4.1, Albumin/Globulin Ratio 0.4L 06/25/20 05:47: POC Whole Blood Glucose 154H 06/25/20 08:13: Arterial Blood pH 7.353, Arterial Blood Partial Pressure CO2 46.3H, Arterial Blood Partial Pressure O2 40.5*L, Arterial Blood HCO3 25.2, Arterial Blood Oxygen Saturation 74.0*L, Arterial Blood Base Excess -0.7, Amrit Test Positive 06/25/20 12:02: POC Whole Blood Glucose [Pending] 06/25/20 18:12: POC Whole Blood Glucose 241H Height (Feet): 5 Height (Inches): 2.00 Weight (Pounds): 138 General Appearance: lethargic Assessment/Plan Problem List: (1) Elevated d-dimer ICD Codes: R79.89 - Other specified abnormal findings of blood chemistry SNOMED: 777090659 (2) Renal insufficiency ICD Codes: N28.9 - Disorder of kidney and ureter, unspecified SNOMED: 481797188, 911617525 (3) PNA (pneumonia) ICD Codes: J18.9 - Pneumonia, unspecified organism SNOMED: 184553647 (4) Dehydration ICD Codes: E86.0 - Dehydration SNOMED: 30390219 (5) LEONARDO (acute kidney injury) ICD Codes: N17.9 - Acute kidney failure, unspecified SNOMED: 8417450, 92288245 (6) Hypoxia ICD Codes: R09.02 - Hypoxemia; J12.82 - Pneumonia due to coronavirus disease 2019 SNOMED: 596403559 (7) Pneumonia due to COVID-19 virus ICD Codes: U07.1 - COVID-19; J12.82 - Pneumonia due to coronavirus disease 2019 SNOMED: 141993575579621285 (8) DMII (diabetes mellitus, type 2) ICD Codes: E11.9 - Type 2 diabetes mellitus without complications SNOMED: 82448364 Status: progressing Assessment/Plan: covid + resp failure intubated arf on full support check sugar not improving dehydrated niddm poor prognosis Vidya Clayton MD Jun 25, 2020 20:46
--- NOTE | 2020-06-25 20:59 | Consultation ---
DATE OF CONSULTATION: 06/25/2020 CONSULTING PHYSICIAN: Suellen Carlson MD HISTORY OF PRESENT ILLNESS: This is a 70-year-old female. I was asked by the primary physician and administration to be involved during this case as the patient is on restraints. Patient is sedated in the ICU; however, the restraints were needed and according to the department of mental health, psychiatrist supervision needed for the restraints. Patient is attempting to pull out lines and extubate self. Patient is on sedation currently. Still has episodes of agitation and attempts to pull out lines or extubate self. This is not for management of her agitation. Patient will be ordered Seroquel or Haldol p.r.n. in case the patient is being weaned off from sedation and shows symptoms of agitation. The Seroquel is not being ordered now for the management of agitation. Right now, the patient is sedated on Versed and fentanyl. It is ordered for the future in case the patient being weaned off from sedation. Midazolam is ordered by the boat rental clerk on case for agitation. We will add Haldol. ASSESSMENT: [place] I Acute toxic encephalopathy. [place] II Deferred. [place] III As above, respiratory failure. [place] IV Low. [place] V 10. PLAN: 1. the restraints. 2. Haldol IM p.r.n. when needed for weaning off in addition to Midazolam that was ordered by the boat rental clerk. Suellen Carlson M.D. DR: OTTO JOB#: [id number] CC:
[2020-06-26] VITALS (67 sets, daily range): BP systolic 98–121; BP diastolic 45–60
[2020-06-26] MEDS: NovoLOG Insulin Flexpen SUBQ SCH ×5 (00:57→23:36)
--- NOTE | 2020-06-26 03:30 | NUR ---
NURSE NOTES: bed bath performed. no BM. vital signs stable
[2020-06-26 04:50] LABS: HEMATOCRIT 30.1 % (37.0-47.0); HEMOGLOBIN 9.7 G/DL (12.0-16.0); MEAN CORPUSCULAR VOLUME 93 FL (80-99); PLATELET COUNT 121 K/UL (150-450); RED BLOOD COUNT 3.24 M/UL (4.20-5.40); RED CELL DISTRIBUTION WIDTH 12.6 % (11.6-14.8); WHITE BLOOD COUNT 11.3 K/UL (4.8-10.8)
[2020-06-26 05:10] LABS: ALANINE AMINOTRANSFERASE 39 U/L (12-78); ALBUMIN/GLOBULIN RATIO 0.6 (1.0-2.7); ALKALINE PHOSPHATASE 71 U/L (46-116); ANION GAP 4 mmol/L (5-15); ASPARTATE AMINO TRANSFERASE 38 U/L (15-37); BILIRUBIN,TOTAL 0.6 MG/DL (0.2-1.0); BLOOD UREA NITROGEN 20 mg/dL (7-18); CALCIUM 7.1 MG/DL (8.5-10.1); CARBON DIOXIDE 25 MMOL/L (21-32); CHLORIDE 104 MMOL/L (98-107); CREATININE 0.7 MG/DL (0.55-1.30); POTASSIUM 4.6 MMOL/L (3.5-5.1); SODIUM 133 MMOL/L (136-145)
--- NOTE | 2020-06-26 06:53 | Hematology/Onc Progress Note ---
Assessment/Plan Assessment/Plan Assessment and recs # Leukocytosis with Pneumonia due to COVID-19 virus -> wbc trend 15-->11-->10->17-->18->11 --> ABX as per id ctx --> imaging does show pna --> anticoag recommended --> on remdesivir # Anemia of chronic disease --> hgb 12->10-->9 -> transfuse prn --> r/o hemolysis # Elevated ddimer due to covid --> duplex legs -> LOVENOX sq # Thrombocytopenia due to Covid19++ with Hypoxia -> steriods, abx per id --> plt 117 # Renal insufficiency -> per renal care # Sepsis due to above --> abx, fluid resuscitation # Dvt ppx lovenox sq Appreciate consultation and mehran RN Subjective Allergies: Coded Allergies: No Known Allergies (Unverified , 06/17/20) All Systems: reviewed and negative except above Subjective 06/19 sleeping, comfortable, on bipap, meds have been reviewed 06/21 on bipap, labs have been reviewed, no major events 06/22 bipap labs reviewed, meds noted, no bleeding 06/23 bipap labs noted, no bleeding, meds reviewed, mehran rn 06/24 on vent, labs reviewed, meds reviewed 06/25 on vent, with ctx as abx, labs noted, no bleeding 06/26 vent, with ogt, with helms, labs noted, no bleeding plts lower Objective Objective Current Medications Medications (Trade) Dose Ordered Sig/Maya Route PRN Reason Start Time Stop Time Status Last Admin Dose Admin Acetaminophen (Tylenol) 500 mg Q4H PRN ORAL Mild Pain (Pain Scale 1-3) 06/18/20 00:15 07/18/20 00:14 06/24/20 17:51 Acetaminophen (Tylenol) 500 mg Q4H PRN ORAL Temp >100.5 06/18/20 00:15 07/18/20 00:14 06/25/20 04:05 Carvedilol (Coreg) 6.25 mg EVERY 12 HOURS ORAL 06/22/20 21:00 07/22/20 20:59 06/25/20 08:42 Ceftriaxone Sodium 1 gm/ Dextrose 55 ml @ 110 mls/hr Q24H IVPB 06/23/20 11:00 06/30/20 10:59 06/25/20 12:03 Dexamethasone Sodium Phosphate (Decadron 10mg/ ml Inj) 6 mg DAILY IV 06/18/20 09:45 06/27/20 09:01 06/25/20 08:41 Dextrose 1,000 ml @ 100 mls/hr Q10H IV 06/19/20 13:30 07/19/20 13:29 06/26/20 05:00 Dextrose (Dextrose 50%) 25 ml Q30M PRN IV Hypoglycemia 06/18/20 14:15 09/16/20 14:14 Dextrose (Dextrose 50%) 50 ml Q30M PRN IV Hypoglycemia 06/18/20 14:15 09/16/20 14:14 Docusate Sodium (Colace) 100 mg THREE TIMES A DAY ORAL 06/18/20 13:00 07/18/20 12:59 06/24/20 17:50 Enoxaparin Sodium (Lovenox) 40 mg DAILY SUBQ 06/21/20 09:00 09/19/20 08:59 06/25/20 08:41 Fentanyl Citrate 250 ml @ 1 mls/hr Q24H IV 06/25/20 10:45 06/27/20 10:44 06/25/20 12:05 Haloperidol Lactate (Haldol) 10 mg Q6H PRN IM Agitation 06/23/20 11:30 08/07/20 11:29 06/23/20 11:34 Insulin Aspart (NovoLOG) while NPO Q6HR SUBQ 06/18/20 18:00 09/16/20 17:59 06/26/20 06:14 Midazolam HCl 100 mg/Sodium Chloride 200 ml @ 0 mls/hr Q24H PRN IV Agitation 06/25/20 14:41 06/27/20 14:40 06/25/20 16:48 Pantoprazole (Protonix) 40 mg EVERY 12 HOURS IVP 06/18/20 21:00 07/18/20 20:59 06/25/20 20:41 Last 24 Hour Vital Signs Date Time Temp Pulse Resp B/P (MAP) Pulse Ox O2 Delivery O2 Flow Rate FiO2 06/26/20 06:00 74 21 115/51 (72) 90 06/26/20 05:30 77 19 118/52 (74) 65 06/26/20 05:00 76 21 116/52 (73) 63 06/26/20 05:00 20 100 06/26/20 05:00 20 117/52 Mechanical Ventilator 100 06/26/20 04:30 75 22 116/53 (74) 100 06/26/20 04:00 100 06/26/20 04:00 79 06/26/20 04:00 98.7 76 22 117/51 (73) 92 06/26/20 04:00 Endotracheal Tube Endotracheal Tube 06/26/20 04:00 22 100 06/26/20 04:00 22 118/54 Mechanical Ventilator 100 06/26/20 03:56 77 29 100 06/26/20 03:30 77 22 117/54 (75) 93 06/26/20 03:00 79 22 107/58 (74) 85 06/26/20 03:00 23 Mechanical Ventilator 100 06/26/20 03:00 23 110/57 Mechanical Ventilator 100 06/26/20 02:30 81 22 111/55 (73) 89 06/26/20 02:00 22 Mechanical Ventilator 100 06/26/20 02:00 22 108/58 Mechanical Ventilator 100 06/26/20 02:00 80 22 112/54 (73) 88 06/26/20 01:00 77 35 98/53 (68) 86 06/26/20 01:00 35 Mechanical Ventilator 100 06/26/20 01:00 35 110/56 Mechanical Ventilator 100 06/26/20 00:00 79 06/26/20 00:00 25 Mechanical Ventilator 100 06/26/20 00:00 25 111/56 Mechanical Ventilator 100 06/26/20 00:00 Endotracheal Tube Endotracheal Tube 06/26/20 00:00 100 06/26/20 00:00 76 31 109/56 (73) 87 06/25/20 23:45 82 28 100 06/25/20 23:30 98.0 78 26 107/54 (71) 87 06/25/20 23:00 26 100 06/25/20 23:00 26 105/63 Mechanical Ventilator 100 06/25/20 23:00 78 27 105/63 (77) 87 06/25/20 22:30 79 29 109/53 (71) 86 06/25/20 22:00 29 Mechanical Ventilator 100 06/25/20 22:00 29 101/56 Mechanical Ventilator 100 06/25/20 22:00 78 25 103/59 (74) 87 06/25/20 21:30 78 32 102/55 (71) 86 06/25/20 21:00 29 Mechanical Ventilator 100 06/25/20 21:00 29 103/59 Mechanical Ventilator 100 06/25/20 21:00 79 30 101/56 (71) 87 06/25/20 20:41 80 107/52 06/25/20 20:30 80 25 107/52 (70) 87 06/25/20 20:00 98.7 79 44 108/56 (73) 87 06/25/20 20:00 80 06/25/20 20:00 26 Mechanical Ventilator 100 06/25/20 20:00 26 108/56 Mechanical Ventilator 100 06/25/20 20:00 Endotracheal Tube Endotracheal Tube 06/25/20 20:00 100 06/25/20 19:30 80 28 100 06/25/20 19:00 80 42 108/53 (71) 87 06/25/20 19:00 29 Mechanical Ventilator 100 06/25/20 19:00 29 108/53 Mechanical Ventilator 100 06/25/20 18:45 80 35 106/55 (72) 87 06/25/20 18:30 79 30 106/59 (75) 85 06/25/20 18:15 79 28 102/55 (71) 86 06/25/20 18:00 78 33 86 06/25/20 18:00 78 33 108/53 (71) 86 06/25/20 17:45 77 31 107/57 (74) 86 06/25/20 17:30 78 32 105/52 (69) 86 06/25/20 17:15 80 33 109/53 (71) 86 06/25/20 17:00 81 30 114/55 (74) 85 06/25/20 17:00 34 114/55 Mechanical Ventilator 100 06/25/20 16:48 38 Mechanical Ventilator 100 06/25/20 16:45 80 32 111/53 (72) 85 06/25/20 16:30 82 35 109/56 (73) 84 06/25/20 16:15 82 43 113/59 (77) 83 06/25/20 16:00 100 06/25/20 16:00 83 06/25/20 16:00 98.3 82 33 109/54 (72) 84 06/25/20 16:00 33 109/54 Mechanical Ventilator 100 06/25/20 16:00 Endotracheal Tube Endotracheal Tube 06/25/20 15:45 83 34 109/56 (73) 84 06/25/20 15:32 83 35 100 06/25/20 15:30 84 35 110/54 (72) 87 06/25/20 15:15 85 35 106/62 (77) 87 06/25/20 15:00 30 99/55 Mechanical Ventilator 100 06/25/20 15:00 84 34 105/53 (70) 87 06/25/20 14:45 86 35 112/61 (78) 88 06/25/20 14:30 25 132/74 Mechanical Ventilator 91 06/25/20 14:30 88 35 115/61 (79) 88 06/25/20 14:15 88 35 117/57 (77) 87 06/25/20 14:00 26 93/41 Mechanical Ventilator 100 06/25/20 14:00 90 36 121/64 (83) 86 06/25/20 13:45 90 36 124/62 (82) 85 06/25/20 13:30 32 193/86 Mechanical Ventilator 100 06/25/20 13:30 91 37 122/62 (82) 86 06/25/20 13:15 94 37 127/63 (84) 85 06/25/20 13:00 29 103/61 Mechanical Ventilator 100 06/25/20 13:00 93 37 112/60 (77) 86 06/25/20 12:05 39 107/65 Mechanical Ventilator 100 06/25/20 12:00 Endotracheal Tube Endotracheal Tube 06/25/20 12:00 99.2 93 37 118/64 (82) 87 06/25/20 12:00 94 06/25/20 12:00 29 Mechanical Ventilator 100 06/25/20 12:00 100 06/25/20 11:38 93 37 100 06/25/20 11:30 100 06/25/20 11:00 96 39 125/63 (83) 83 06/25/20 11:00 27 118/80 100 06/25/20 10:00 98 38 114/63 (80) 87 06/25/20 09:00 97 40 98/62 (74) 80 06/25/20 08:42 100 120/68 06/25/20 08:30 100 06/25/20 08:30 41 Mechanical Ventilator 100 06/25/20 08:00 Endotracheal Tube Endotracheal Tube 06/25/20 08:00 40 Mechanical Ventilator 100 06/25/20 08:00 98 40 120/58 (78) 88 06/25/20 08:00 100 06/25/20 08:00 98 06/25/20 07:37 105 42 100 06/25/20 07:00 38 Mechanical Ventilator 100 06/25/20 07:00 103 41 118/61 (80) 77 06/25/20 06:58 35 Mechanical Ventilator 100 06/25/20 06:00 100.0 105 40 113/60 (77) 93 06/25/20 06:00 35 Mechanical Ventilator 100 06/25/20 05:00 110 39 113/54 (73) 78 06/25/20 05:00 35 Mechanical Ventilator 100 06/25/20 04:35 100.0 06/25/20 04:00 110 06/25/20 04:00 30 Mechanical Ventilator 100 06/25/20 04:00 100.0 06/25/20 04:00 101.0 112 46 155/70 (98) 87 06/25/20 04:00 Mechanical Ventilator Mechanical Ventilator 06/25/20 03:34 104 35 100 06/25/20 03:00 108 42 128/60 (82) 83 06/25/20 03:00 30 Mechanical Ventilator 100 06/25/20 02:00 108 43 135/60 (85) 83 06/25/20 02:00 30 Mechanical Ventilator 100 06/25/20 01:25 100 38 100 06/25/20 01:00 105 43 128/61 (83) 83 06/25/20 01:00 38 100 06/25/20 00:00 34 Mechanical Ventilator 100 06/25/20 00:00 Mechanical Ventilator Mechanical Ventilator 06/25/20 00:00 99.8 104 42 119/61 (80) 83 06/24/20 23:03 35 Room Air 100 06/24/20 23:00 99 42 130/64 (86) 86 06/24/20 22:00 99 41 110/59 (76) 85 06/24/20 22:00 30 Mechanical Ventilator 100 06/24/20 21:00 35 Mechanical Ventilator 100 06/24/20 21:00 99.5 98 40 106/58 (74) 83 06/24/20 20:48 100 90/49 06/24/20 20:00 Mechanical Ventilator Mechanical Ventilator 06/24/20 20:00 102 06/24/20 20:00 100.0 103 38 91/47 (62) 86 06/24/20 20:00 100.0 06/24/20 20:00 30 Mechanical Ventilator 100 06/24/20 19:05 106 38 100 06/24/20 19:00 105 38 93/50 (64) 76 06/24/20 19:00 38 Mechanical Ventilator 100 06/24/20 18:00 38 Mechanical Ventilator 100 06/24/20 18:00 100.5 112 40 135/60 (85) 83 06/24/20 17:00 40 Mechanical Ventilator 100 06/24/20 17:00 114 40 153/65 (94) 84 06/24/20 16:45 41 Mechanical Ventilator 100 06/24/20 16:30 42 Mechanical Ventilator 100 06/24/20 16:15 41 Mechanical Ventilator 100 06/24/20 16:00 Mechanical Ventilator Mechanical Ventilator 06/24/20 16:00 108 41 139/85 (103) 85 06/24/20 16:00 42 Mechanical Ventilator 100 06/24/20 16:00 100.0 06/24/20 15:50 100 06/24/20 15:16 101 42 100 06/24/20 15:00 104 35 120/62 (81) 91 06/24/20 15:00 38 Mechanical Ventilator 100 06/24/20 14:30 39 Mechanical Ventilator 100 06/24/20 14:00 40 Mechanical Ventilator 100 06/24/20 14:00 99 36 113/60 (77) 84 06/24/20 13:00 100.3 100 41 112/60 (77) 83 06/24/20 13:00 40 Mechanical Ventilator 100 06/24/20 12:51 100.3 06/24/20 12:04 112 06/24/20 12:00 38 Mechanical Ventilator 100 06/24/20 12:00 Mechanical Ventilator Mechanical Ventilator 06/24/20 12:00 100.9 115 45 149/73 (98) 88 06/24/20 12:00 100.0 06/24/20 11:39 88 39 100 06/24/20 11:04 100.0 06/24/20 11:00 29 Mechanical Ventilator 100 06/24/20 11:00 88 35 113/98 (103) 85 06/24/20 10:00 35 Mechanical Ventilator 100 06/24/20 10:00 98 29 111/70 (84) 83 06/24/20 09:07 95 110/69 06/24/20 09:00 99.4 94 34 110/69 (83) 89 06/24/20 09:00 37 Mechanical Ventilator 100 06/24/20 08:00 Mechanical Ventilator Mechanical Ventilator 06/24/20 08:00 36 Mechanical Ventilator 100 06/24/20 08:00 89 36 126/75 (92) 89 06/24/20 08:00 100.0 06/24/20 07:36 89 35 100 06/24/20 07:28 87 06/24/20 07:00 28 Mechanical Ventilator 100 06/24/20 07:00 89 35 101/65 (77) 92 Intake and Output 06/25/20 06/26/20 19:00 07:00 Intake Total 1606.055 ml 950 ml Output Total 400 ml 726 ml Balance 1206.055 ml 224 ml Intake Free Water 60 ml IV Total 1546.055 ml 950 ml Output Urine Total 400 ml 630 ml Chest Tube Drainage Total 96 ml Labs Test 06/23/20 07:44 06/23/20 08:00 06/23/20 10:45 06/23/20 17:30 Arterial Blood pH 7.454 (7.350-7.450) 7.391 (7.350-7.450) Arterial Blood Partial Pressure CO2 32.4 mmHg (35.0-45.0) 37.1 mmHg (35.0-45.0) Arterial Blood Partial Pressure O2 40.9 mmHg (75.0-100.0) 41.6 mmHg (75.0-100.0) Arterial Blood HCO3 22.2 mmol/L (22.0-26.0) 22.0 mmol/L (22.0-26.0) Arterial Blood Oxygen Saturation 76.9 % (95-100) 75.7 % (95-100) Arterial Blood Base Excess -0.8 (-2-2) -2.4 (-2-2) Amrit Test Positive Positive White Blood Count 22.4 K/UL (4.8-10.8) Red Blood Count 4.83 M/UL (4.20-5.40) Hemoglobin 13.9 G/DL (12.0-16.0) Hematocrit 44.1 % (37.0-47.0) Mean Corpuscular Volume 91 FL (80-99) Mean Corpuscular Hemoglobin 28.9 PG (27.0-31.0) Mean Corpuscular Hemoglobin Concent 31.6 G/DL (32.0-36.0) Red Cell Distribution Width 12.3 % (11.6-14.8) Platelet Count 350 K/UL (150-450) Mean Platelet Volume 7.4 FL (6.5-10.1) Neutrophils (%) (Auto) % (45.0-75.0) Lymphocytes (%) (Auto) % (20.0-45.0) Monocytes (%) (Auto) % (1.0-10.0) Eosinophils (%) (Auto) % (0.0-3.0) Basophils (%) (Auto) % (0.0-2.0) Differential Total Cells Counted 100 Neutrophils % (Manual) 97 % (45-75) Lymphocytes % (Manual) 2 % (20-45) Monocytes % (Manual) 1 % (1-10) Eosinophils % (Manual) 0 % (0-3) Basophils % (Manual) 0 % (0-2) Band Neutrophils 0 % (0-8) Platelet Estimate Adequate Platelet Morphology Normal Red Blood Cell Morphology Normal Sodium Level 157 MMOL/L (136-145) Potassium Level 3.8 MMOL/L (3.5-5.1) Chloride Level 122 MMOL/L (98-107) Carbon Dioxide Level 24 MMOL/L (21-32) Anion Gap 12 mmol/L (5-15) Blood Urea Nitrogen 31 mg/dL (7-18) Creatinine 0.9 MG/DL (0.55-1.30) Estimat Glomerular Filtration Rate > 60 mL/min (>60) Glucose Level 105 MG/DL (74-106) Lactic Acid Level 2.70 mmol/L (0.4-2.0) Calcium Level 8.5 MG/DL (8.5-10.1) Troponin I 0.225 ng/mL (0.000-0.056) 0.120 ng/mL (0.000-0.056) Pro-B-Type Natriuretic Peptide 655 pg/mL (0-125) Test 2/3/21 00:56 06/24/20 04:20 06/24/20 12:26 06/24/20 17:58 Arterial Blood pH 7.482 (7.350-7.450) Arterial Blood Partial Pressure CO2 30.4 mmHg (35.0-45.0) Arterial Blood Partial Pressure O2 50.8 mmHg (75.0-100.0) Arterial Blood HCO3 22.2 mmol/L (22.0-26.0) Arterial Blood Oxygen Saturation 87.0 % (95-100) Arterial Blood Base Excess -0.4 (-2-2) Amrit Test Positive White Blood Count 17.0 K/UL (4.8-10.8) Red Blood Count 4.04 M/UL (4.20-5.40) Hemoglobin 11.8 G/DL (12.0-16.0) Hematocrit 36.6 % (37.0-47.0) Mean Corpuscular Volume 91 FL (80-99) Mean Corpuscular Hemoglobin 29.3 PG (27.0-31.0) Mean Corpuscular Hemoglobin Concent 32.3 G/DL (32.0-36.0) Red Cell Distribution Width 11.9 % (11.6-14.8) Platelet Count 219 K/UL (150-450) Mean Platelet Volume 7.7 FL (6.5-10.1) Neutrophils (%) (Auto) % (45.0-75.0) Lymphocytes (%) (Auto) % (20.0-45.0) Monocytes (%) (Auto) % (1.0-10.0) Eosinophils (%) (Auto) % (0.0-3.0) Basophils (%) (Auto) % (0.0-2.0) Differential Total Cells Counted 100 Neutrophils % (Manual) 96 % (45-75) Lymphocytes % (Manual) 3 % (20-45) Monocytes % (Manual) 1 % (1-10) Eosinophils % (Manual) 0 % (0-3) Basophils % (Manual) 0 % (0-2) Band Neutrophils 0 % (0-8) Platelet Estimate Adequate Platelet Morphology Normal Red Blood Cell Morphology Normal Sodium Level 148 MMOL/L (136-145) Potassium Level 3.6 MMOL/L (3.5-5.1) Chloride Level 116 MMOL/L (98-107) Carbon Dioxide Level 23 MMOL/L (21-32) Anion Gap 9 mmol/L (5-15) Blood Urea Nitrogen 30 mg/dL (7-18) Creatinine 0.7 MG/DL (0.55-1.30) Estimat Glomerular Filtration Rate > 60 mL/min (>60) Glucose Level 247 MG/DL (74-106) Lactic Acid Level 2.40 mmol/L (0.4-2.0) 2.60 mmol/L (0.4-2.0) Uric Acid 3.8 MG/DL (2.6-7.2) Calcium Level 7.5 MG/DL (8.5-10.1) Phosphorus Level 2.1 MG/DL (2.5-4.9) Magnesium Level 2.2 MG/DL (1.8-2.4) Total Bilirubin 0.9 MG/DL (0.2-1.0) Aspartate Amino Transf (AST/SGOT) 45 U/L (15-37) Alanine Aminotransferase (ALT/SGPT) 41 U/L (12-78) Alkaline Phosphatase 74 U/L (46-116) Troponin I 0.079 ng/mL (0.000-0.056) C-Reactive Protein, Quantitative 8.3 mg/dL (0.00-0.90) Pro-B-Type Natriuretic Peptide 219 pg/mL (0-125) Total Protein 5.8 G/DL (6.4-8.2) Albumin 1.9 G/DL (3.4-5.0) Globulin 3.9 g/dL Albumin/Globulin Ratio 0.5 (1.0-2.7) POC Whole Blood Glucose 129 MG/DL (74-106) Test 06/24/20 18:20 06/25/20 04:30 06/25/20 05:47 06/25/20 08:13 Lactic Acid Level 2.10 mmol/L (0.66-2.22) White Blood Count 18.4 K/UL (4.8-10.8) Red Blood Count 4.15 M/UL (4.20-5.40) Hemoglobin 12.4 G/DL (12.0-16.0) Hematocrit 38.1 % (37.0-47.0) Mean Corpuscular Volume 92 FL (80-99) Mean Corpuscular Hemoglobin 29.8 PG (27.0-31.0) Mean Corpuscular Hemoglobin Concent 32.5 G/DL (32.0-36.0) Red Cell Distribution Width 12.8 % (11.6-14.8) Platelet Count 193 K/UL (150-450) Mean Platelet Volume 7.9 FL (6.5-10.1) Neutrophils (%) (Auto) % (45.0-75.0) Lymphocytes (%) (Auto) % (20.0-45.0) Monocytes (%) (Auto) % (1.0-10.0) Eosinophils (%) (Auto) % (0.0-3.0) Basophils (%) (Auto) % (0.0-2.0) Differential Total Cells Counted 100 Neutrophils % (Manual) 95 % (45-75) Lymphocytes % (Manual) 3 % (20-45) Monocytes % (Manual) 0 % (1-10) Eosinophils % (Manual) 0 % (0-3) Basophils % (Manual) 0 % (0-2) Band Neutrophils 2 % (0-8) Platelet Estimate Adequate Platelet Morphology Normal Red Blood Cell Morphology Normal Sodium Level 141 MMOL/L (136-145) Potassium Level 3.9 MMOL/L (3.5-5.1) Chloride Level 109 MMOL/L (98-107) Carbon Dioxide Level 25 MMOL/L (21-32) Anion Gap 7 mmol/L (5-15) Blood Urea Nitrogen 18 mg/dL (7-18) Creatinine 0.7 MG/DL (0.55-1.30) Estimat Glomerular Filtration Rate > 60 mL/min (>60) Glucose Level 133 MG/DL (74-106) Uric Acid 1.9 MG/DL (2.6-7.2) Calcium Level 7.3 MG/DL (8.5-10.1) Phosphorus Level 2.1 MG/DL (2.5-4.9) Magnesium Level 1.9 MG/DL (1.8-2.4) Total Bilirubin 1.1 MG/DL (0.2-1.0) Direct Bilirubin 0.3 MG/DL (0.0-0.3) Aspartate Amino Transf (AST/SGOT) 55 U/L (15-37) Alanine Aminotransferase (ALT/SGPT) 46 U/L (12-78) Alkaline Phosphatase 92 U/L (46-116) C-Reactive Protein, Quantitative 14.6 mg/dL (0.00-0.90) Pro-B-Type Natriuretic Peptide 139 pg/mL (0-125) Total Protein 5.8 G/DL (6.4-8.2) Albumin 1.7 G/DL (3.4-5.0) Globulin 4.1 g/dL Albumin/Globulin Ratio 0.4 (1.0-2.7) POC Whole Blood Glucose 154 MG/DL (74-106) Arterial Blood pH 7.353 (7.350-7.450) Arterial Blood Partial Pressure CO2 46.3 mmHg (35.0-45.0) Arterial Blood Partial Pressure O2 40.5 mmHg (75.0-100.0) Arterial Blood HCO3 25.2 mmol/L (22.0-26.0) Arterial Blood Oxygen Saturation 74.0 % (95-100) Arterial Blood Base Excess -0.7 (-2-2) Amrit Test Positive Test 06/25/20 12:02 06/25/20 18:12 06/26/20 03:00 POC Whole Blood Glucose 241 MG/DL (74-106) White Blood Count 11.3 K/UL (4.8-10.8) Red Blood Count 3.24 M/UL (4.20-5.40) Hemoglobin 9.7 G/DL (12.0-16.0) Hematocrit 30.1 % (37.0-47.0) Mean Corpuscular Volume 93 FL (80-99) Mean Corpuscular Hemoglobin 30.1 PG (27.0-31.0) Mean Corpuscular Hemoglobin Concent 32.4 G/DL (32.0-36.0) Red Cell Distribution Width 12.6 % (11.6-14.8) Platelet Count 121 K/UL (150-450) Mean Platelet Volume 8.8 FL (6.5-10.1) Neutrophils (%) (Auto) % (45.0-75.0) Lymphocytes (%) (Auto) % (20.0-45.0) Monocytes (%) (Auto) % (1.0-10.0) Eosinophils (%) (Auto) % (0.0-3.0) Basophils (%) (Auto) % (0.0-2.0) Sodium Level 133 MMOL/L (136-145) Potassium Level 4.6 MMOL/L (3.5-5.1) Chloride Level 104 MMOL/L (98-107) Carbon Dioxide Level 25 MMOL/L (21-32) Anion Gap 4 mmol/L (5-15) Blood Urea Nitrogen 20 mg/dL (7-18) Creatinine 0.7 MG/DL (0.55-1.30) Estimat Glomerular Filtration Rate > 60 mL/min (>60) Glucose Level 241 MG/DL (74-106) Uric Acid 2.0 MG/DL (2.6-7.2) Calcium Level 7.1 MG/DL (8.5-10.1) Phosphorus Level 3.0 MG/DL (2.5-4.9) Magnesium Level 2.0 MG/DL (1.8-2.4) Total Bilirubin 0.6 MG/DL (0.2-1.0) Aspartate Amino Transf (AST/SGOT) 38 U/L (15-37) Alanine Aminotransferase (ALT/SGPT) 39 U/L (12-78) Alkaline Phosphatase 71 U/L (46-116) C-Reactive Protein, Quantitative 17.9 mg/dL (0.00-0.90) Pro-B-Type Natriuretic Peptide 122 pg/mL (0-125) Total Protein 5.5 G/DL (6.4-8.2) Albumin 2.0 G/DL (3.4-5.0) Globulin 3.5 g/dL Albumin/Globulin Ratio 0.6 (1.0-2.7) Height (Feet): 5 Height (Inches): 2.00 Weight (Pounds): 138 Objective Physical Exam Vitals: reviewed, abnormal - Interpreted as low by me General: GCS 15 - Sometimes slightly confused, non-toxic, mild distress Head: normocephalic, moist mucus membranes Neck: supple Respiratory: no retraction, no accessory muscle use, respiratory distress - Minimal with tachypnea, crackles Cardiovascular: regular rate, rhythm, no edema Gastrointestinal: normal inspection, non tender, soft Genitourinary: no CVA tenderness Musculoskeletal: back normal Neurologic: alert, oriented x3, grossly normal Psychiatric: mood/affect normal - sometimes confused Skin: no rash, warm/dry Kleynberg,Jj L. MD Jun 26, 2020 06:53
--- NOTE | 2020-06-26 07:00 | NUR ---
NURSE HAND-OFF REPORT: Latest Vital Signs: Temperature 98.7 , Pulse 74 , B/P 110 /49 , Respiratory Rate 20 , O2 SAT 90 , Mechanical Ventilator, O2 Flow Rate . Vital Sign Comment: stable EKG Rhythm: Sinus Rhythm Rhythm change?: N MD Notified?: N - MD Response: Latest Carney Fall Score: 60 Fall Risk: High Risk Safety Measures: Call light Within Reach, Bed Alarm Zone 2, Side Rails Side Rails x3, Bed position Low and Locked. Fall Precautions: Yellow Socks Yellow Gown Door Sign Patient Fall Education Report given to NORMAN Baires.
--- NOTE | 2020-06-26 07:14 | NUR ---
CASE MANAGEMENT:REVIEW 06/26/20 SI: COVID PNA. HYPOXIA ~ INTUBATED 98.7 74 21 115/51 90% ON VENT SUPPORT W/100% FIO2 WBC+11.3 BUN+20 CRP+17.9 IS: FENTANYL GTT IV ROCEPHIN Q24 COREG NG Q12 IV DECADRON QD IVF@100/HR IV PROTONIX Q12 LOVENOX SQ Q12 : ICU STATUS DCP: FROM HOME PLAN: COMPLETED REMDESIVIR ~ WEAN OXYGEN WHEN ABLE SUPPORTIVE CARE
--- NOTE | 2020-06-26 08:00 | NUR ---
NURSE NOTES: Pt rcvd sedated. No s/s of distress. tolerating vent. O2 sats 92-93%. CTs patent and intact. no air leak noted. SQ air improving. Oral care done and pt repositioned.
--- NOTE | 2020-06-26 08:40 | Pulmonology Progress Note ---
Subjective ROS Limited/Unobtainable: Yes Interval Events: Remains intubated Constitutional: Reports: fever, other - [id number] HEENT: Repors: no symptoms Respiratory: Reports: shortness of breath Cardiovascular: Reports: no symptoms Gastrointestinal/Abdominal: Reports: no symptoms Allergies: Coded Allergies: No Known Allergies (Unverified , 06/17/20) All Systems: reviewed and negative except above Objective Last 24 Hour Vital Signs Date Time Temp Pulse Resp B/P (MAP) Pulse Ox O2 Delivery O2 Flow Rate FiO2 06/26/20 07:00 77 19 110/55 (73) 91 06/26/20 07:00 20 Mechanical Ventilator 100 06/26/20 07:00 20 110/49 Mechanical Ventilator 100 06/26/20 06:00 20 Mechanical Ventilator 100 06/26/20 06:00 20 113/53 Mechanical Ventilator 100 06/26/20 06:00 74 21 115/51 (72) 90 06/26/20 05:30 77 19 118/52 (74) 65 06/26/20 05:00 76 21 116/52 (73) 63 06/26/20 05:00 20 100 06/26/20 05:00 20 117/52 Mechanical Ventilator 100 06/26/20 04:30 75 22 116/53 (74) 100 06/26/20 04:00 100 06/26/20 04:00 79 06/26/20 04:00 98.7 76 22 117/51 (73) 92 06/26/20 04:00 Endotracheal Tube Endotracheal Tube 06/26/20 04:00 22 100 06/26/20 04:00 22 118/54 Mechanical Ventilator 100 06/26/20 03:56 77 29 100 06/26/20 03:30 77 22 117/54 (75) 93 06/26/20 03:00 79 22 107/58 (74) 85 06/26/20 03:00 23 Mechanical Ventilator 100 06/26/20 03:00 23 110/57 Mechanical Ventilator 100 06/26/20 02:30 81 22 111/55 (73) 89 06/26/20 02:00 22 Mechanical Ventilator 100 06/26/20 02:00 22 108/58 Mechanical Ventilator 100 06/26/20 02:00 80 22 112/54 (73) 88 06/26/20 01:00 77 35 98/53 (68) 86 06/26/20 01:00 35 Mechanical Ventilator 100 06/26/20 01:00 35 110/56 Mechanical Ventilator 100 06/26/20 00:00 79 06/26/20 00:00 25 Mechanical Ventilator 100 06/26/20 00:00 25 111/56 Mechanical Ventilator 100 06/26/20 00:00 Endotracheal Tube Endotracheal Tube 06/26/20 00:00 100 06/26/20 00:00 76 31 109/56 (73) 87 06/25/20 23:45 82 28 100 06/25/20 23:30 98.0 78 26 107/54 (71) 87 06/25/20 23:00 26 100 06/25/20 23:00 26 105/63 Mechanical Ventilator 100 06/25/20 23:00 78 27 105/63 (77) 87 06/25/20 22:30 79 29 109/53 (71) 86 06/25/20 22:00 29 Mechanical Ventilator 100 06/25/20 22:00 29 101/56 Mechanical Ventilator 100 06/25/20 22:00 78 25 103/59 (74) 87 06/25/20 21:30 78 32 102/55 (71) 86 06/25/20 21:00 29 Mechanical Ventilator 100 06/25/20 21:00 29 103/59 Mechanical Ventilator 100 06/25/20 21:00 79 30 101/56 (71) 87 06/25/20 20:41 80 107/52 06/25/20 20:30 80 25 107/52 (70) 87 06/25/20 20:00 98.7 79 44 108/56 (73) 87 06/25/20 20:00 80 06/25/20 20:00 26 Mechanical Ventilator 100 06/25/20 20:00 26 108/56 Mechanical Ventilator 100 06/25/20 20:00 Endotracheal Tube Endotracheal Tube 06/25/20 20:00 100 06/25/20 19:30 80 28 100 06/25/20 19:00 80 42 108/53 (71) 87 06/25/20 19:00 29 Mechanical Ventilator 100 06/25/20 19:00 29 108/53 Mechanical Ventilator 100 06/25/20 18:45 80 35 106/55 (72) 87 06/25/20 18:30 79 30 106/59 (75) 85 06/25/20 18:15 79 28 102/55 (71) 86 2/4/21 18:00 78 33 86 06/25/20 18:00 78 33 108/53 (71) 86 06/25/20 17:45 77 31 107/57 (74) 86 06/25/20 17:30 78 32 105/52 (69) 86 06/25/20 17:15 80 33 109/53 (71) 86 06/25/20 17:00 81 30 114/55 (74) 85 06/25/20 17:00 34 114/55 Mechanical Ventilator 100 06/25/20 16:48 38 Mechanical Ventilator 100 06/25/20 16:45 80 32 111/53 (72) 85 06/25/20 16:30 82 35 109/56 (73) 84 06/25/20 16:15 82 43 113/59 (77) 83 06/25/20 16:00 100 06/25/20 16:00 83 06/25/20 16:00 98.3 82 33 109/54 (72) 84 06/25/20 16:00 33 109/54 Mechanical Ventilator 100 06/25/20 16:00 Endotracheal Tube Endotracheal Tube 06/25/20 15:45 83 34 109/56 (73) 84 06/25/20 15:32 83 35 100 06/25/20 15:30 84 35 110/54 (72) 87 06/25/20 15:15 85 35 106/62 (77) 87 06/25/20 15:00 30 99/55 Mechanical Ventilator 100 06/25/20 15:00 84 34 105/53 (70) 87 06/25/20 14:45 86 35 112/61 (78) 88 06/25/20 14:30 25 132/74 Mechanical Ventilator 91 06/25/20 14:30 88 35 115/61 (79) 88 06/25/20 14:15 88 35 117/57 (77) 87 06/25/20 14:00 26 93/41 Mechanical Ventilator 100 06/25/20 14:00 90 36 121/64 (83) 86 06/25/20 13:45 90 36 124/62 (82) 85 06/25/20 13:30 32 193/86 Mechanical Ventilator 100 06/25/20 13:30 91 37 122/62 (82) 86 06/25/20 13:15 94 37 127/63 (84) 85 06/25/20 13:00 29 103/61 Mechanical Ventilator 100 06/25/20 13:00 93 37 112/60 (77) 86 06/25/20 12:05 39 107/65 Mechanical Ventilator 100 06/25/20 12:00 Endotracheal Tube Endotracheal Tube 06/25/20 12:00 99.2 93 37 118/64 (82) 87 06/25/20 12:00 94 06/25/20 12:00 29 Mechanical Ventilator 100 06/25/20 12:00 100 06/25/20 11:38 93 37 100 06/25/20 11:30 100 06/25/20 11:00 96 39 125/63 (83) 83 06/25/20 11:00 27 118/80 100 06/25/20 10:00 98 38 114/63 (80) 87 06/25/20 09:00 97 40 98/62 (74) 80 06/25/20 08:42 100 120/68 Intake and Output 06/25/20 06/26/20 19:00 07:00 Intake Total 1606.055 ml 980 ml Output Total 400 ml 751 ml Balance 1206.055 ml 229 ml Intake Free Water 60 ml IV Total 1546.055 ml 980 ml Output Urine Total 400 ml 655 ml Chest Tube Drainage Total 96 ml General Appearance: no acute distress HEENT: atraumatic Respiratory: crackles/rales Cardiovascular: normal rate Abdomen: soft, non tender Microbiology Date/Time Source Procedure Growth Status 06/25/20 12:00 Sputum Gram Stain - Final Resulted 06/25/20 12:00 Sputum Sputum Culture Pending Resulted Laboratory Tests 06/25/20 12:02: POC Whole Blood Glucose [Pending] 06/25/20 18:12: POC Whole Blood Glucose 241H 06/26/20 03:00: White Blood Count 11.3H, Red Blood Count 3.24L, Hemoglobin 9.7L, Hematocrit 30.1L, Mean Corpuscular Volume 93, Mean Corpuscular Hemoglobin 30.1, Mean Corpuscular Hemoglobin Concent 32.4, Red Cell Distribution Width 12.6, Platelet Count 121L, Mean Platelet Volume 8.8, Neutrophils (%) (Auto) , Lymphocytes (%) (Auto) , Monocytes (%) (Auto) , Eosinophils (%) (Auto) , Basophils (%) (Auto) , Neutrophils % (Manual) [Pending], Lymphocytes % (Manual) [Pending], Platelet Estimate [Pending], Platelet Morphology [Pending], Sodium Level 133L, Potassium Level 4.6, Chloride Level 104, Carbon Dioxide Level 25, Anion Gap 4L, Blood Urea Nitrogen 20H, Creatinine 0.7, Estimat Glomerular Filtration Rate > 60, Glucose Level 241#H, Uric Acid 2.0L, Calcium Level 7.1L, Phosphorus Level 3.0, Magnesium Level 2.0, Total Bilirubin 0.6, Aspartate Amino Transf (AST/SGOT) 38H, Alanine Aminotransferase (ALT/SGPT) 39, Alkaline Phosphatase 71, C-Reactive Protein, Quantitative 17.9H, Pro-B-Type Natriuretic Peptide 122, Total Protein 5.5L, Albumin 2.0L, Globulin 3.5, Albumin/Globulin Ratio 0.6L Current Medications Medications (Trade) Dose Ordered Sig/Maya Route PRN Reason Start Time Stop Time Status Last Admin Dose Admin Acetaminophen (Tylenol) 500 mg Q4H PRN ORAL Mild Pain (Pain Scale 1-3) 06/18/20 00:15 07/18/20 00:14 06/24/20 17:51 Acetaminophen (Tylenol) 500 mg Q4H PRN ORAL Temp >100.5 06/18/20 00:15 07/18/20 00:14 06/25/20 04:05 Carvedilol (Coreg) 6.25 mg EVERY 12 HOURS ORAL 06/22/20 21:00 07/22/20 20:59 06/25/20 08:42 Ceftriaxone Sodium 1 gm/ Dextrose 55 ml @ 110 mls/hr Q24H IVPB 06/23/20 11:00 06/30/20 10:59 06/25/20 12:03 Dexamethasone Sodium Phosphate (Decadron 10mg/ ml Inj) 6 mg DAILY IV 06/18/20 09:45 06/27/20 09:01 06/25/20 08:41 Dextrose (Dextrose 50%) 25 ml Q30M PRN IV Hypoglycemia 06/18/20 14:15 09/16/20 14:14 Dextrose (Dextrose 50%) 50 ml Q30M PRN IV Hypoglycemia 06/18/20 14:15 09/16/20 14:14 Docusate Sodium (Colace) 100 mg THREE TIMES A DAY ORAL 06/18/20 13:00 07/18/20 12:59 06/24/20 17:50 Enoxaparin Sodium (Lovenox) 40 mg DAILY SUBQ 06/21/20 09:00 09/19/20 08:59 06/25/20 08:41 Fentanyl Citrate 250 ml @ 1 mls/hr Q24H IV 06/25/20 10:45 06/27/20 10:44 06/25/20 12:05 Haloperidol Lactate (Haldol) 10 mg Q6H PRN IM Agitation 06/23/20 11:30 08/07/20 11:29 06/23/20 11:34 Insulin Aspart (NovoLOG) while NPO Q6HR SUBQ 06/18/20 18:00 09/16/20 17:59 06/26/20 06:14 Midazolam HCl 100 mg/Sodium Chloride 200 ml @ 0 mls/hr Q24H PRN IV Agitation 06/25/20 14:41 06/27/20 14:40 06/25/20 16:48 Pantoprazole (Protonix) 40 mg EVERY 12 HOURS IVP 06/18/20 21:00 07/18/20 20:59 06/25/20 20:41 Sodium Chloride 1,000 ml @ 50 mls/hr Q20H IV 06/26/20 08:00 07/26/20 07:59 Assessment/Plan Assessment/Plan 1. COVID-19 pneumonia -Intubated, on 100% FiO2. PEEP 5-10. -Will increase PEEP as peak pressures tolerate. SaO2 91% -On Decadron, s/p remdesivir 2. Leukocytosis -Likely secondary to #1 -WBC improving 3. Elevated D-dimer -Venous duplex ultrasound negative for DVT -Was on full dose Lovenox, switched to 40 subcu QD for DVT prophylaxis 4. Renal insufficiency -On IV fluids - nephro following 5. Anemia of chronic disease -Hematology oncology following 6. Sepsis -Status post antibiotics, fluid resuscitation 7. Pneumothorax 06/22/20 - b/l subcutaneous emphysema, pneumomediastinum, probable small left pneumothorax & ? trace right pneumothorax. -Pleur-evac adjusted by RN - placed CT by surgery (bilateral) - will need to increase PEEP given hypoxemia Charlie Sewell MD Jun 26, 2020 08:40
--- NOTE | 2020-06-26 08:50 | Nephrology Progress Note ---
Assessment/Plan Problem List: (1) LEONARDO (acute kidney injury) (2) Dehydration (3) DMII (diabetes mellitus, type 2) (4) Pneumonia due to COVID-19 virus (5) Hypoxia Assessment 70-year-old female presents with COVID-19 pneumonia and hypoxia On admission has BUN of 77 and creatinine of 1.6. Renal failure most likely prerenal and dehydration with possible underlying chronic kidney disease Patient has elevated inflammatory markers Hypoalbuminemia Electrolyte abnormalities Hyperglycemia Plan June 26: Status quo. Remains full code. Labs reviewed. Main IV changed to normal saline 50 cc an hour. Continue per consultants and pulmonary. June 25: Remains intubated. Has bilateral chest tube. Full code. Labs reviewed. Abnormal electrolytes addressed. Albumin bolus given. Continue to monitor renal parameters. Poor prognosis. June 24: Patient in ICU. Intubated. Has bilateral chest tube. Labs reviewed. Renal parameters stable. Low phosphorus addressed. Continue per consultants. Full code. Poor prognosis. June 23: Patient in ICU. Intubated. Due for insertion of a chest tube. Has pneumothorax. Renal parameters are stable. Serum sodium rising. Will adjust IV fluid. Continue per consultants. Patient full code. Prognosis poor. June 22: Labs reviewed. Remains on BiPAP which is not changed to high flow oxygen due to pneumothorax found on chest x-ray. Serum sodium 155. Continues on D5W. Electrolytes within normal limits. Check 2D echocardiogram. Coreg for blood pressure and heart rate. June 21: Status quo. On BiPAP. Full code. Serum sodium 153. Continue D5W. Continue to monitor electrolytes. Continue per consultants. June 20: Patient full code. On BiPAP. Labs reviewed. Serum sodium rising. Will increase D5W to 75 cc an hour. Continue to monitor electrolytes. June 19: IV changed to D5W. Monitor blood sugar. Monitor electrolytes. Medication list reviewed. Patient is being treated for COVID-19 pneumonia. Patient is full code. Previously Pulmonary support IV antibiotics Slow hydration Avoid nephrotoxic Monitor renal parameters Per orders Subjective ROS Limited/Unobtainable: Yes Objective Objective Last 24 Hour Vital Signs Date Time Temp Pulse Resp B/P (MAP) Pulse Ox O2 Delivery O2 Flow Rate FiO2 06/26/20 07:00 77 19 110/55 (73) 91 06/26/20 07:00 20 Mechanical Ventilator 100 06/26/20 07:00 20 110/49 Mechanical Ventilator 100 06/26/20 06:00 20 Mechanical Ventilator 100 06/26/20 06:00 20 113/53 Mechanical Ventilator 100 06/26/20 06:00 74 21 115/51 (72) 90 06/26/20 05:30 77 19 118/52 (74) 65 06/26/20 05:00 76 21 116/52 (73) 63 06/26/20 05:00 20 100 06/26/20 05:00 20 117/52 Mechanical Ventilator 100 06/26/20 04:30 75 22 116/53 (74) 100 06/26/20 04:00 100 06/26/20 04:00 79 06/26/20 04:00 98.7 76 22 117/51 (73) 92 06/26/20 04:00 Endotracheal Tube Endotracheal Tube 06/26/20 04:00 22 100 06/26/20 04:00 22 118/54 Mechanical Ventilator 100 06/26/20 03:56 77 29 100 06/26/20 03:30 77 22 117/54 (75) 93 06/26/20 03:00 79 22 107/58 (74) 85 06/26/20 03:00 23 Mechanical Ventilator 100 06/26/20 03:00 23 110/57 Mechanical Ventilator 100 06/26/20 02:30 81 22 111/55 (73) 89 06/26/20 02:00 22 Mechanical Ventilator 100 06/26/20 02:00 22 108/58 Mechanical Ventilator 100 06/26/20 02:00 80 22 112/54 (73) 88 06/26/20 01:00 77 35 98/53 (68) 86 06/26/20 01:00 35 Mechanical Ventilator 100 06/26/20 01:00 35 110/56 Mechanical Ventilator 100 06/26/20 00:00 79 06/26/20 00:00 25 Mechanical Ventilator 100 06/26/20 00:00 25 111/56 Mechanical Ventilator 100 06/26/20 00:00 Endotracheal Tube Endotracheal Tube 06/26/20 00:00 100 06/26/20 00:00 76 31 109/56 (73) 87 06/25/20 23:45 82 28 100 06/25/20 23:30 98.0 78 26 107/54 (71) 87 06/25/20 23:00 26 100 06/25/20 23:00 26 105/63 Mechanical Ventilator 100 06/25/20 23:00 78 27 105/63 (77) 87 06/25/20 22:30 79 29 109/53 (71) 86 06/25/20 22:00 29 Mechanical Ventilator 100 06/25/20 22:00 29 101/56 Mechanical Ventilator 100 06/25/20 22:00 78 25 103/59 (74) 87 06/25/20 21:30 78 32 102/55 (71) 86 06/25/20 21:00 29 Mechanical Ventilator 100 06/25/20 21:00 29 103/59 Mechanical Ventilator 100 06/25/20 21:00 79 30 101/56 (71) 87 06/25/20 20:41 80 107/52 06/25/20 20:30 80 25 107/52 (70) 87 06/25/20 20:00 98.7 79 44 108/56 (73) 87 06/25/20 20:00 80 06/25/20 20:00 26 Mechanical Ventilator 100 06/25/20 20:00 26 108/56 Mechanical Ventilator 100 06/25/20 20:00 Endotracheal Tube Endotracheal Tube 06/25/20 20:00 100 06/25/20 19:30 80 28 100 06/25/20 19:00 80 42 108/53 (71) 87 06/25/20 19:00 29 Mechanical Ventilator 100 06/25/20 19:00 29 108/53 Mechanical Ventilator 100 06/25/20 18:45 80 35 106/55 (72) 87 06/25/20 18:30 79 30 106/59 (75) 85 06/25/20 18:15 79 28 102/55 (71) 86 06/25/20 18:00 78 33 86 06/25/20 18:00 78 33 108/53 (71) 86 06/25/20 17:45 77 31 107/57 (74) 86 06/25/20 17:30 78 32 105/52 (69) 86 06/25/20 17:15 80 33 109/53 (71) 86 06/25/20 17:00 81 30 114/55 (74) 85 06/25/20 17:00 34 114/55 Mechanical Ventilator 100 06/25/20 16:48 38 Mechanical Ventilator 100 06/25/20 16:45 80 32 111/53 (72) 85 06/25/20 16:30 82 35 109/56 (73) 84 06/25/20 16:15 82 43 113/59 (77) 83 06/25/20 16:00 100 06/25/20 16:00 83 06/25/20 16:00 98.3 82 33 109/54 (72) 84 06/25/20 16:00 33 109/54 Mechanical Ventilator 100 06/25/20 16:00 Endotracheal Tube Endotracheal Tube 06/25/20 15:45 83 34 109/56 (73) 84 06/25/20 15:32 83 35 100 06/25/20 15:30 84 35 110/54 (72) 87 06/25/20 15:15 85 35 106/62 (77) 87 06/25/20 15:00 30 99/55 Mechanical Ventilator 100 06/25/20 15:00 84 34 105/53 (70) 87 06/25/20 14:45 86 35 112/61 (78) 88 06/25/20 14:30 25 132/74 Mechanical Ventilator 91 06/25/20 14:30 88 35 115/61 (79) 88 06/25/20 14:15 88 35 117/57 (77) 87 06/25/20 14:00 26 93/41 Mechanical Ventilator 100 06/25/20 14:00 90 36 121/64 (83) 86 06/25/20 13:45 90 36 124/62 (82) 85 06/25/20 13:30 32 193/86 Mechanical Ventilator 100 06/25/20 13:30 91 37 122/62 (82) 86 06/25/20 13:15 94 37 127/63 (84) 85 06/25/20 13:00 29 103/61 Mechanical Ventilator 100 06/25/20 13:00 93 37 112/60 (77) 86 06/25/20 12:05 39 107/65 Mechanical Ventilator 100 06/25/20 12:00 Endotracheal Tube Endotracheal Tube 06/25/20 12:00 99.2 93 37 118/64 (82) 87 06/25/20 12:00 94 06/25/20 12:00 29 Mechanical Ventilator 100 06/25/20 12:00 100 06/25/20 11:38 93 37 100 06/25/20 11:30 100 06/25/20 11:00 96 39 125/63 (83) 83 06/25/20 11:00 27 118/80 100 06/25/20 10:00 98 38 114/63 (80) 87 06/25/20 09:00 97 40 98/62 (74) 80 Intake and Output 06/25/20 06/26/20 19:00 07:00 Intake Total 1606.055 ml 980 ml Output Total 400 ml 751 ml Balance 1206.055 ml 229 ml Intake Free Water 60 ml IV Total 1546.055 ml 980 ml Output Urine Total 400 ml 655 ml Chest Tube Drainage Total 96 ml Current Medications Medications (Trade) Dose Ordered Sig/Maya Route PRN Reason Start Time Stop Time Status Last Admin Dose Admin Acetaminophen (Tylenol) 500 mg Q4H PRN ORAL Mild Pain (Pain Scale 1-3) 06/18/20 00:15 07/18/20 00:14 06/24/20 17:51 Acetaminophen (Tylenol) 500 mg Q4H PRN ORAL Temp >100.5 06/18/20 00:15 07/18/20 00:14 06/25/20 04:05 Carvedilol (Coreg) 6.25 mg EVERY 12 HOURS ORAL 06/22/20 21:00 07/22/20 20:59 06/25/20 08:42 Ceftriaxone Sodium 1 gm/ Dextrose 55 ml @ 110 mls/hr Q24H IVPB 06/23/20 11:00 06/30/20 10:59 06/25/20 12:03 Dexamethasone Sodium Phosphate (Decadron 10mg/ ml Inj) 6 mg DAILY IV 06/18/20 09:45 06/27/20 09:01 06/25/20 08:41 Dextrose (Dextrose 50%) 25 ml Q30M PRN IV Hypoglycemia 06/18/20 14:15 09/16/20 14:14 Dextrose (Dextrose 50%) 50 ml Q30M PRN IV Hypoglycemia 06/18/20 14:15 09/16/20 14:14 Docusate Sodium (Colace) 100 mg THREE TIMES A DAY ORAL 06/18/20 13:00 07/18/20 12:59 06/24/20 17:50 Enoxaparin Sodium (Lovenox) 40 mg DAILY SUBQ 06/21/20 09:00 09/19/20 08:59 06/25/20 08:41 Fentanyl Citrate 250 ml @ 1 mls/hr Q24H IV 06/25/20 10:45 06/27/20 10:44 06/25/20 12:05 Haloperidol Lactate (Haldol) 10 mg Q6H PRN IM Agitation 06/23/20 11:30 08/07/20 11:29 06/23/20 11:34 Insulin Aspart (NovoLOG) while NPO Q6HR SUBQ 06/18/20 18:00 09/16/20 17:59 06/26/20 06:14 Midazolam HCl 100 mg/Sodium Chloride 200 ml @ 0 mls/hr Q24H PRN IV Agitation 06/25/20 14:41 06/27/20 14:40 06/25/20 16:48 Pantoprazole (Protonix) 40 mg EVERY 12 HOURS IVP 06/18/20 21:00 07/18/20 20:59 06/25/20 20:41 Sodium Chloride 1,000 ml @ 50 mls/hr Q20H IV 06/26/20 08:00 07/26/20 07:59 Laboratory Tests 06/25/20 12:02: POC Whole Blood Glucose [Pending] 06/25/20 18:12: POC Whole Blood Glucose 241H 06/26/20 03:00: White Blood Count 11.3H, Red Blood Count 3.24L, Hemoglobin 9.7L, Hematocrit 30.1L, Mean Corpuscular Volume 93, Mean Corpuscular Hemoglobin 30.1, Mean Corpuscular Hemoglobin Concent 32.4, Red Cell Distribution Width 12.6, Platelet Count 121L, Mean Platelet Volume 8.8, Neutrophils (%) (Auto) , Lymphocytes (%) (Auto) , Monocytes (%) (Auto) , Eosinophils (%) (Auto) , Basophils (%) (Auto) , Neutrophils % (Manual) [Pending], Lymphocytes % (Manual) [Pending], Platelet Estimate [Pending], Platelet Morphology [Pending], Sodium Level 133L, Potassium Level 4.6, Chloride Level 104, Carbon Dioxide Level 25, Anion Gap 4L, Blood Urea Nitrogen 20H, Creatinine 0.7, Estimat Glomerular Filtration Rate > 60, Glucose Level 241#H, Uric Acid 2.0L, Calcium Level 7.1L, Phosphorus Level 3.0, Magnesium Level 2.0, Total Bilirubin 0.6, Aspartate Amino Transf (AST/SGOT) 38H, Alanine Aminotransferase (ALT/SGPT) 39, Alkaline Phosphatase 71, C-Reactive Protein, Quantitative 17.9H, Pro-B-Type Natriuretic Peptide 122, Total Protein 5.5L, Albumin 2.0L, Globulin 3.5, Albumin/Globulin Ratio 0.6L Height (Feet): 5 Height (Inches): 2.00 Weight (Pounds): 138 General Appearance: no apparent distress EENT: other - Intubated on ventilator Cardiovascular: normal rate Respiratory/Chest: decreased breath sounds Abdomen: distended Raza De Jesus MD Jun 26, 2020 08:50
[2020-06-26] MEDS: Docusate 100mg cap ORAL SCH ×3 (09:00→18:00)
[2020-06-26] MEDS: dexAMETHasone 10mg/ml Inj IV SCH (09:40)
[2020-06-26] MEDS: Pantoprazole Inj IVP SCH ×2 (09:40→20:25)
[2020-06-26] MEDS: Carvedilol 6.25mg Tab ORAL SCH ×2 (09:40→21:00)
[2020-06-26] MEDS: Enoxaparin 40mg Inj SUBQ SCH (09:40)
--- NOTE | 2020-06-26 10:20 | NUR ---
NURSE NOTES: No change in status. Pt resting quietly. no s/s of distress. Fentanyl and Versed gtt infusing. IV sites patent.
[2020-06-26] MEDS: fentaNYL 2500mcg/NS 250ml 250 ML IV SCH (10:45)
[2020-06-26] MEDS: Midazolam HCl 50mg/10ml vial 100 MG in NS 180 ML IV PRN (11:25)
[2020-06-26] MEDS: cefTRIAXone 1 GM in D5W 55 ML IVPB SCH (11:27)
--- NOTE | 2020-06-26 12:10 | NUR ---
NURSE NOTES: Pt is resting quietly. no s/s of distress. pt repositioned. no oral care done. no change in status.
--- NOTE | 2020-06-26 13:25 | Cardiac Electrophysiology PN ---
Assessment/Plan Assessment/Plan 1. Respiratory failure likely due to COVID pneumonia. Intubated on 100% Fio2. Echocardiogram showed ejection fraction within normal range. 2. Bilateral pneumothoraces. S/P bilateral chest tube placement with around 50 cc drainage over night 3. Troponin elevation. Levels are low and flat could be demand ischemia vs Renal failure EKG shows sinus tachycardia at 110 beats per minute. 4. Hypernatremia with sodium of 155. IV fluids per Dr. De Jesus. 5. Azotemia, BUN 31 and creatinine 0.8. 6. The patient is also COVID-19 positive and is in isolation, on dexamethasone, completed Remdesivir. 7. Hypertension, on Coreg 6.25 mg b.i.d. Subjective Subjective Intubated in ICU on Fentanyl drip and Versed drip at 8 mg/hr. Has bilateral chest tube drainage < 50 cc. SQ emphysema getting better. On 100% Fio2 . Off pressors Objective Last 24 Hour Vital Signs Date Time Temp Pulse Resp B/P (MAP) Pulse Ox O2 Delivery O2 Flow Rate FiO2 06/26/20 11:25 24 Mechanical Ventilator 100 06/26/20 09:40 74 115/62 06/26/20 09:15 72 18 115/51 (72) 91 06/26/20 09:00 71 18 107/49 (68) 91 06/26/20 08:45 73 19 112/52 (72) 92 06/26/20 08:30 74 19 115/51 (72) 92 06/26/20 08:15 74 19 121/53 (75) 92 06/26/20 07:45 74 19 118/55 (76) 90 06/26/20 07:30 75 20 116/48 (70) 90 06/26/20 07:15 76 19 110/49 (69) 91 06/26/20 07:00 77 19 110/55 (73) 91 06/26/20 07:00 20 Mechanical Ventilator 100 06/26/20 07:00 20 110/49 Mechanical Ventilator 100 06/26/20 06:00 20 Mechanical Ventilator 100 06/26/20 06:00 20 113/53 Mechanical Ventilator 100 06/26/20 06:00 74 21 115/51 (72) 90 06/26/20 05:30 77 19 118/52 (74) 65 06/26/20 05:00 76 21 116/52 (73) 63 06/26/20 05:00 20 100 06/26/20 05:00 20 117/52 Mechanical Ventilator 100 06/26/20 04:30 75 22 116/53 (74) 100 06/26/20 04:00 100 06/26/20 04:00 79 06/26/20 04:00 98.7 76 22 117/51 (73) 92 06/26/20 04:00 Endotracheal Tube Endotracheal Tube 06/26/20 04:00 22 100 06/26/20 04:00 22 118/54 Mechanical Ventilator 100 06/26/20 03:56 77 29 100 06/26/20 03:30 77 22 117/54 (75) 93 06/26/20 03:00 79 22 107/58 (74) 85 06/26/20 03:00 23 Mechanical Ventilator 100 06/26/20 03:00 23 110/57 Mechanical Ventilator 100 06/26/20 02:30 81 22 111/55 (73) 89 06/26/20 02:00 22 Mechanical Ventilator 100 06/26/20 02:00 22 108/58 Mechanical Ventilator 100 06/26/20 02:00 80 22 112/54 (73) 88 06/26/20 01:00 77 35 98/53 (68) 86 06/26/20 01:00 35 Mechanical Ventilator 100 06/26/20 01:00 35 110/56 Mechanical Ventilator 100 06/26/20 00:00 79 06/26/20 00:00 25 Mechanical Ventilator 100 06/26/20 00:00 25 111/56 Mechanical Ventilator 100 06/26/20 00:00 Endotracheal Tube Endotracheal Tube 06/26/20 00:00 100 06/26/20 00:00 76 31 109/56 (73) 87 06/25/20 23:45 82 28 100 06/25/20 23:30 98.0 78 26 107/54 (71) 87 06/25/20 23:00 26 100 06/25/20 23:00 26 105/63 Mechanical Ventilator 100 06/25/20 23:00 78 27 105/63 (77) 87 06/25/20 22:30 79 29 109/53 (71) 86 06/25/20 22:00 29 Mechanical Ventilator 100 06/25/20 22:00 29 101/56 Mechanical Ventilator 100 06/25/20 22:00 78 25 103/59 (74) 87 06/25/20 21:30 78 32 102/55 (71) 86 06/25/20 21:00 29 Mechanical Ventilator 100 06/25/20 21:00 29 103/59 Mechanical Ventilator 100 06/25/20 21:00 79 30 101/56 (71) 87 06/25/20 20:41 80 107/52 06/25/20 20:30 80 25 107/52 (70) 87 06/25/20 20:00 98.7 79 44 108/56 (73) 87 06/25/20 20:00 80 06/25/20 20:00 26 Mechanical Ventilator 100 06/25/20 20:00 26 108/56 Mechanical Ventilator 100 06/25/20 20:00 Endotracheal Tube Endotracheal Tube 06/25/20 20:00 100 06/25/20 19:30 80 28 100 06/25/20 19:00 80 42 108/53 (71) 87 06/25/20 19:00 29 Mechanical Ventilator 100 06/25/20 19:00 29 108/53 Mechanical Ventilator 100 06/25/20 18:45 80 35 106/55 (72) 87 06/25/20 18:30 79 30 106/59 (75) 85 06/25/20 18:15 79 28 102/55 (71) 86 06/25/20 18:00 78 33 86 06/25/20 18:00 78 33 108/53 (71) 86 06/25/20 17:45 77 31 107/57 (74) 86 06/25/20 17:30 78 32 105/52 (69) 86 06/25/20 17:15 80 33 109/53 (71) 86 06/25/20 17:00 81 30 114/55 (74) 85 06/25/20 17:00 34 114/55 Mechanical Ventilator 100 06/25/20 16:48 38 Mechanical Ventilator 100 06/25/20 16:45 80 32 111/53 (72) 85 06/25/20 16:30 82 35 109/56 (73) 84 06/25/20 16:15 82 43 113/59 (77) 83 06/25/20 16:00 100 06/25/20 16:00 83 06/25/20 16:00 98.3 82 33 109/54 (72) 84 06/25/20 16:00 33 109/54 Mechanical Ventilator 100 06/25/20 16:00 Endotracheal Tube Endotracheal Tube 06/25/20 15:45 83 34 109/56 (73) 84 06/25/20 15:32 83 35 100 06/25/20 15:30 84 35 110/54 (72) 87 06/25/20 15:15 85 35 106/62 (77) 87 06/25/20 15:00 30 99/55 Mechanical Ventilator 100 06/25/20 15:00 84 34 105/53 (70) 87 06/25/20 14:45 86 35 112/61 (78) 88 06/25/20 14:30 25 132/74 Mechanical Ventilator 91 06/25/20 14:30 88 35 115/61 (79) 88 06/25/20 14:15 88 35 117/57 (77) 87 06/25/20 14:00 26 93/41 Mechanical Ventilator 100 06/25/20 14:00 90 36 121/64 (83) 86 06/25/20 13:45 90 36 124/62 (82) 85 06/25/20 13:30 32 193/86 Mechanical Ventilator 100 06/25/20 13:30 91 37 122/62 (82) 86 Intake and Output 06/25/20 06/26/20 19:00 07:00 Intake Total 1606.055 ml 980 ml Output Total 400 ml 751 ml Balance 1206.055 ml 229 ml Intake Free Water 60 ml IV Total 1546.055 ml 980 ml Output Urine Total 400 ml 655 ml Chest Tube Drainage Total 96 ml Laboratory Tests Test 06/25/20 18:12 06/26/20 03:00 POC Whole Blood Glucose 241 MG/DL (74-106) H White Blood Count 11.3 K/UL (4.8-10.8) H Red Blood Count 3.24 M/UL (4.20-5.40) L Hemoglobin 9.7 G/DL (12.0-16.0) L Hematocrit 30.1 % (37.0-47.0) L Mean Corpuscular Volume 93 FL (80-99) Mean Corpuscular Hemoglobin 30.1 PG (27.0-31.0) Mean Corpuscular Hemoglobin Concent 32.4 G/DL (32.0-36.0) Red Cell Distribution Width 12.6 % (11.6-14.8) Platelet Count 121 K/UL (150-450) L Mean Platelet Volume 8.8 FL (6.5-10.1) Neutrophils (%) (Auto) % (45.0-75.0) Lymphocytes (%) (Auto) % (20.0-45.0) Monocytes (%) (Auto) % (1.0-10.0) Eosinophils (%) (Auto) % (0.0-3.0) Basophils (%) (Auto) % (0.0-2.0) Differential Total Cells Counted 100 Neutrophils % (Manual) 97 % (45-75) H Lymphocytes % (Manual) 1 % (20-45) L Monocytes % (Manual) 2 % (1-10) Eosinophils % (Manual) 0 % (0-3) Basophils % (Manual) 0 % (0-2) Band Neutrophils 0 % (0-8) Platelet Estimate Decreased L Platelet Morphology Normal Hypochromasia 1+ Sodium Level 133 MMOL/L (136-145) L Potassium Level 4.6 MMOL/L (3.5-5.1) Chloride Level 104 MMOL/L (98-107) Carbon Dioxide Level 25 MMOL/L (21-32) Anion Gap 4 mmol/L (5-15) L Blood Urea Nitrogen 20 mg/dL (7-18) H Creatinine 0.7 MG/DL (0.55-1.30) Estimat Glomerular Filtration Rate > 60 mL/min (>60) Glucose Level 241 MG/DL (74-106) #H Uric Acid 2.0 MG/DL (2.6-7.2) L Calcium Level 7.1 MG/DL (8.5-10.1) L Phosphorus Level 3.0 MG/DL (2.5-4.9) Magnesium Level 2.0 MG/DL (1.8-2.4) Total Bilirubin 0.6 MG/DL (0.2-1.0) Aspartate Amino Transf (AST/SGOT) 38 U/L (15-37) H Alanine Aminotransferase (ALT/SGPT) 39 U/L (12-78) Alkaline Phosphatase 71 U/L (46-116) C-Reactive Protein, Quantitative 17.9 mg/dL (0.00-0.90) H Pro-B-Type Natriuretic Peptide 122 pg/mL (0-125) Total Protein 5.5 G/DL (6.4-8.2) L Albumin 2.0 G/DL (3.4-5.0) L Globulin 3.5 g/dL Albumin/Globulin Ratio 0.6 (1.0-2.7) L Microbiology Date/Time Source Procedure Growth Status 06/25/20 12:00 Sputum Gram Stain - Final Resulted 06/25/20 12:00 Sputum Sputum Culture Pending Resulted Objective HEAD AND NECK: No JVD.Orally intubated with SQ emphysema LUNGS: Coarse rhonchi bilaterally. Bilateral chest tube in. CARDIOVASCULAR: Regular S1 and S2 and tachycardic. ABDOMEN: Soft. EXTREMITIES: No pitting edema. Maxwell Carreon MD Jun 26, 2020 13:24
--- NOTE | 2020-06-26 13:38 | Infectious Diseases Prog Note ---
Assessment/Plan Assessment/Plan A; Sepsis COVID19 pneumonia Hypoxic respiratory failure Acute kidney injury, resolving Hyperglycemia, DM type 2 Bilateral pneumothorax Leukocytosis P; Finished Remdesivir course Continue Dexamethasone Continue Rocephin Will f/u Sputum culture Poor prognosis Subjective ROS Limited/Unobtainable: Yes Neurologic: Reports: other - sedated on restrainnt Allergies: Coded Allergies: No Known Allergies (Unverified , 06/17/20) Objective Last 24 Hour Vital Signs Date Time Temp Pulse Resp B/P (MAP) Pulse Ox O2 Delivery O2 Flow Rate FiO2 06/26/20 11:25 24 Mechanical Ventilator 100 06/26/20 09:40 74 115/62 06/26/20 09:15 72 18 115/51 (72) 91 06/26/20 09:00 71 18 107/49 (68) 91 06/26/20 08:45 73 19 112/52 (72) 92 06/26/20 08:30 74 19 115/51 (72) 92 06/26/20 08:15 74 19 121/53 (75) 92 06/26/20 07:45 74 19 118/55 (76) 90 06/26/20 07:30 75 20 116/48 (70) 90 06/26/20 07:15 76 19 110/49 (69) 91 06/26/20 07:00 77 19 110/55 (73) 91 06/26/20 07:00 20 Mechanical Ventilator 100 06/26/20 07:00 20 110/49 Mechanical Ventilator 100 06/26/20 06:00 20 Mechanical Ventilator 100 06/26/20 06:00 20 113/53 Mechanical Ventilator 100 06/26/20 06:00 74 21 115/51 (72) 90 06/26/20 05:30 77 19 118/52 (74) 65 06/26/20 05:00 76 21 116/52 (73) 63 06/26/20 05:00 20 100 06/26/20 05:00 20 117/52 Mechanical Ventilator 100 06/26/20 04:30 75 22 116/53 (74) 100 06/26/20 04:00 100 06/26/20 04:00 79 06/26/20 04:00 98.7 76 22 117/51 (73) 92 06/26/20 04:00 Endotracheal Tube Endotracheal Tube 06/26/20 04:00 22 100 06/26/20 04:00 22 118/54 Mechanical Ventilator 100 06/26/20 03:56 77 29 100 06/26/20 03:30 77 22 117/54 (75) 93 06/26/20 03:00 79 22 107/58 (74) 85 06/26/20 03:00 23 Mechanical Ventilator 100 06/26/20 03:00 23 110/57 Mechanical Ventilator 100 06/26/20 02:30 81 22 111/55 (73) 89 06/26/20 02:00 22 Mechanical Ventilator 100 06/26/20 02:00 22 108/58 Mechanical Ventilator 100 06/26/20 02:00 80 22 112/54 (73) 88 06/26/20 01:00 77 35 98/53 (68) 86 06/26/20 01:00 35 Mechanical Ventilator 100 06/26/20 01:00 35 110/56 Mechanical Ventilator 100 06/26/20 00:00 79 06/26/20 00:00 25 Mechanical Ventilator 100 06/26/20 00:00 25 111/56 Mechanical Ventilator 100 06/26/20 00:00 Endotracheal Tube Endotracheal Tube 06/26/20 00:00 100 06/26/20 00:00 76 31 109/56 (73) 87 06/25/20 23:45 82 28 100 06/25/20 23:30 98.0 78 26 107/54 (71) 87 06/25/20 23:00 26 100 06/25/20 23:00 26 105/63 Mechanical Ventilator 100 06/25/20 23:00 78 27 105/63 (77) 87 06/25/20 22:30 79 29 109/53 (71) 86 06/25/20 22:00 29 Mechanical Ventilator 100 06/25/20 22:00 29 101/56 Mechanical Ventilator 100 06/25/20 22:00 78 25 103/59 (74) 87 06/25/20 21:30 78 32 102/55 (71) 86 06/25/20 21:00 29 Mechanical Ventilator 100 06/25/20 21:00 29 103/59 Mechanical Ventilator 100 06/25/20 21:00 79 30 101/56 (71) 87 06/25/20 20:41 80 107/52 06/25/20 20:30 80 25 107/52 (70) 87 06/25/20 20:00 98.7 79 44 108/56 (73) 87 06/25/20 20:00 80 06/25/20 20:00 26 Mechanical Ventilator 100 06/25/20 20:00 26 108/56 Mechanical Ventilator 100 06/25/20 20:00 Endotracheal Tube Endotracheal Tube 06/25/20 20:00 100 06/25/20 19:30 80 28 100 06/25/20 19:00 80 42 108/53 (71) 87 06/25/20 19:00 29 Mechanical Ventilator 100 06/25/20 19:00 29 108/53 Mechanical Ventilator 100 06/25/20 18:45 80 35 106/55 (72) 87 06/25/20 18:30 79 30 106/59 (75) 85 06/25/20 18:15 79 28 102/55 (71) 86 06/25/20 18:00 78 33 86 06/25/20 18:00 78 33 108/53 (71) 86 06/25/20 17:45 77 31 107/57 (74) 86 06/25/20 17:30 78 32 105/52 (69) 86 06/25/20 17:15 80 33 109/53 (71) 86 06/25/20 17:00 81 30 114/55 (74) 85 06/25/20 17:00 34 114/55 Mechanical Ventilator 100 06/25/20 16:48 38 Mechanical Ventilator 100 06/25/20 16:45 80 32 111/53 (72) 85 06/25/20 16:30 82 35 109/56 (73) 84 06/25/20 16:15 82 43 113/59 (77) 83 06/25/20 16:00 100 06/25/20 16:00 83 06/25/20 16:00 98.3 82 33 109/54 (72) 84 06/25/20 16:00 33 109/54 Mechanical Ventilator 100 06/25/20 16:00 Endotracheal Tube Endotracheal Tube 06/25/20 15:45 83 34 109/56 (73) 84 06/25/20 15:32 83 35 100 06/25/20 15:30 84 35 110/54 (72) 87 06/25/20 15:15 85 35 106/62 (77) 87 06/25/20 15:00 30 99/55 Mechanical Ventilator 100 06/25/20 15:00 84 34 105/53 (70) 87 2/4/21 14:45 86 35 112/61 (78) 88 06/25/20 14:30 25 132/74 Mechanical Ventilator 91 06/25/20 14:30 88 35 115/61 (79) 88 06/25/20 14:15 88 35 117/57 (77) 87 06/25/20 14:00 26 93/41 Mechanical Ventilator 100 06/25/20 14:00 90 36 121/64 (83) 86 06/25/20 13:45 90 36 124/62 (82) 85 Height (Feet): 5 Height (Inches): 2.00 Weight (Pounds): 138 HEENT: other - orally intubated Respiratory/Chest: other - on ventilator, FTI5=838%, bilateral chest tubes Cardiovascular: normal rate Abdomen: soft, non tender Neurologic/Psychiatric: other - sedated Microbiology Date/Time Source Procedure Growth Status 06/25/20 12:00 Sputum Gram Stain - Final Resulted 06/25/20 12:00 Sputum Sputum Culture Pending Resulted Laboratory Tests Test 06/25/20 18:12 06/26/20 03:00 POC Whole Blood Glucose 241 MG/DL (74-106) H White Blood Count 11.3 K/UL (4.8-10.8) H Red Blood Count 3.24 M/UL (4.20-5.40) L Hemoglobin 9.7 G/DL (12.0-16.0) L Hematocrit 30.1 % (37.0-47.0) L Mean Corpuscular Volume 93 FL (80-99) Mean Corpuscular Hemoglobin 30.1 PG (27.0-31.0) Mean Corpuscular Hemoglobin Concent 32.4 G/DL (32.0-36.0) Red Cell Distribution Width 12.6 % (11.6-14.8) Platelet Count 121 K/UL (150-450) L Mean Platelet Volume 8.8 FL (6.5-10.1) Neutrophils (%) (Auto) % (45.0-75.0) Lymphocytes (%) (Auto) % (20.0-45.0) Monocytes (%) (Auto) % (1.0-10.0) Eosinophils (%) (Auto) % (0.0-3.0) Basophils (%) (Auto) % (0.0-2.0) Differential Total Cells Counted 100 Neutrophils % (Manual) 97 % (45-75) H Lymphocytes % (Manual) 1 % (20-45) L Monocytes % (Manual) 2 % (1-10) Eosinophils % (Manual) 0 % (0-3) Basophils % (Manual) 0 % (0-2) Band Neutrophils 0 % (0-8) Platelet Estimate Decreased L Platelet Morphology Normal Hypochromasia 1+ Sodium Level 133 MMOL/L (136-145) L Potassium Level 4.6 MMOL/L (3.5-5.1) Chloride Level 104 MMOL/L (98-107) Carbon Dioxide Level 25 MMOL/L (21-32) Anion Gap 4 mmol/L (5-15) L Blood Urea Nitrogen 20 mg/dL (7-18) H Creatinine 0.7 MG/DL (0.55-1.30) Estimat Glomerular Filtration Rate > 60 mL/min (>60) Glucose Level 241 MG/DL (74-106) #H Uric Acid 2.0 MG/DL (2.6-7.2) L Calcium Level 7.1 MG/DL (8.5-10.1) L Phosphorus Level 3.0 MG/DL (2.5-4.9) Magnesium Level 2.0 MG/DL (1.8-2.4) Total Bilirubin 0.6 MG/DL (0.2-1.0) Aspartate Amino Transf (AST/SGOT) 38 U/L (15-37) H Alanine Aminotransferase (ALT/SGPT) 39 U/L (12-78) Alkaline Phosphatase 71 U/L (46-116) C-Reactive Protein, Quantitative 17.9 mg/dL (0.00-0.90) H Pro-B-Type Natriuretic Peptide 122 pg/mL (0-125) Total Protein 5.5 G/DL (6.4-8.2) L Albumin 2.0 G/DL (3.4-5.0) L Globulin 3.5 g/dL Albumin/Globulin Ratio 0.6 (1.0-2.7) L Current Medications Medications (Trade) Dose Ordered Sig/Maya Route PRN Reason Start Time Stop Time Status Last Admin Dose Admin Acetaminophen (Tylenol) 500 mg Q4H PRN ORAL Mild Pain (Pain Scale 1-3) 06/18/20 00:15 2/27/21 00:14 06/24/20 17:51 Acetaminophen (Tylenol) 500 mg Q4H PRN ORAL Temp >100.5 06/18/20 00:15 07/18/20 00:14 06/25/20 04:05 Carvedilol (Coreg) 6.25 mg EVERY 12 HOURS ORAL 06/22/20 21:00 07/22/20 20:59 06/26/20 09:40 Ceftriaxone Sodium 1 gm/ Dextrose 55 ml @ 110 mls/hr Q24H IVPB 06/23/20 11:00 06/30/20 10:59 06/26/20 11:27 Dexamethasone Sodium Phosphate (Decadron 10mg/ ml Inj) 6 mg DAILY IV 06/18/20 09:45 06/27/20 09:01 06/26/20 09:40 Dextrose (Dextrose 50%) 25 ml Q30M PRN IV Hypoglycemia 06/18/20 14:15 09/16/20 14:14 Dextrose (Dextrose 50%) 50 ml Q30M PRN IV Hypoglycemia 06/18/20 14:15 09/16/20 14:14 Docusate Sodium (Colace) 100 mg THREE TIMES A DAY ORAL 06/18/20 13:00 07/18/20 12:59 06/24/20 17:50 Enoxaparin Sodium (Lovenox) 40 mg DAILY SUBQ 06/21/20 09:00 09/19/20 08:59 06/26/20 09:40 Fentanyl Citrate 250 ml @ 1 mls/hr Q24H IV 06/25/20 10:45 06/27/20 10:44 06/25/20 12:05 Haloperidol Lactate (Haldol) 10 mg Q6H PRN IM Agitation 06/23/20 11:30 08/07/20 11:29 06/23/20 11:34 Insulin Aspart (NovoLOG) while NPO Q6HR SUBQ 06/18/20 18:00 09/16/20 17:59 06/26/20 12:52 Midazolam HCl 100 mg/Sodium Chloride 200 ml @ 0 mls/hr Q24H PRN IV Agitation 06/25/20 14:41 06/27/20 14:40 06/26/20 11:25 Pantoprazole (Protonix) 40 mg EVERY 12 HOURS IVP 06/18/20 21:00 07/18/20 20:59 06/26/20 09:40 Sodium Chloride 1,000 ml @ 50 mls/hr Q20H IV 06/26/20 08:00 07/26/20 07:59 06/26/20 09:50 Raji Turpin MD Jun 26, 2020 13:38
--- NOTE | 2020-06-26 14:47 | NUR ---
INSURANCE CLINICALS/REVIEW FAXED TO [facility] [phone]
[2020-06-26] MEDS ORDERED: Sterile Water Irrig 1000ml IRRIG ONE (19:42)
[2020-06-26] MEDS ORDERED: NS Irrig 1000ml ONE (19:42)
[2020-06-26] MEDS ORDERED: Tubing IV Secondary IV ONE (19:42)
[2020-06-26] MEDS ORDERED: NS 275ml ONE (19:42)
--- NOTE | 2020-06-26 19:45 | NUR ---
NURSE NOTES: PATIENT SEDATED, RASS SCORE -2 STATUS, ON ETT TO VENT AC 16/TV400/FIO2 100%/PEEP 8, O2 SATURATION 88% NOTED, CHEST TUBE TO BILATERAL INTACT WITH PLEU VAC, SEROUS DISCHARGE OUTED, OGT INTACT AND PATENT, NPO STATUS, KEPT HOB 30 DEGREES AND ASPIRATION PRECAUTION, ABDOMEN SOFT, NON TENDER, NO BM STATUS, F/C INTACT AND PATENT, MALCOLM COLOR URINE OUTED, PPL TO RIGHT AC 20G AND RIGHT WRIST 20G, INTACT AND PATENT, ONGOING VERSED 5MG AND FENTANYL 50MCG/HR VIA RT. AC PPL, IV FLUID NS AT 50 ML VIA RT. WRIST PPL, KEPT [place] PRECAUTION, MADE LOWER BED POSITION, ON BED ALARM AND LOCKED, WILL CONTINUE TO MONITOR.
--- NOTE | 2020-06-26 21:28 | General Progress Note ---
Subjective ROS Limited/Unobtainable: Yes Allergies: Coded Allergies: No Known Allergies (Unverified , 06/17/20) Objective Last 24 Hour Vital Signs Date Time Temp Pulse Resp B/P (MAP) Pulse Ox O2 Delivery O2 Flow Rate FiO2 06/26/20 21:00 16 Mechanical Ventilator 100 06/26/20 21:00 16 110/48 Mechanical Ventilator 100 06/26/20 21:00 74 111/44 06/26/20 21:00 78 16 110/48 (68) 99 06/26/20 20:45 77 16 118/49 (72) 96 06/26/20 20:31 77 16 100 06/26/20 20:30 76 16 117/51 (73) 86 06/26/20 20:15 75 16 115/54 (74) 88 06/26/20 20:00 Mechanical Ventilator Mechanical Ventilator 06/26/20 20:00 16 Mechanical Ventilator 100 06/26/20 20:00 16 113/51 Mechanical Ventilator 100 06/26/20 20:00 98.0 75 16 113/51 (71) 85 06/26/20 20:00 100 06/26/20 19:45 75 06/26/20 19:30 77 17 115/53 (73) 89 06/26/20 19:07 74 16 100 06/26/20 19:00 74 20 118/52 (74) 88 06/26/20 18:45 77 16 118/52 (74) 83 06/26/20 18:30 75 16 113/52 (72) 84 06/26/20 18:15 75 17 117/50 (72) 90 06/26/20 18:00 72 22 107/54 (71) 89 06/26/20 17:45 77 17 116/55 (75) 86 06/26/20 17:30 74 17 112/54 (73) 87 06/26/20 17:15 76 17 117/54 (75) 87 06/26/20 17:00 76 17 116/54 (74) 87 06/26/20 16:45 77 18 117/54 (75) 87 06/26/20 16:30 77 18 116/54 (74) 94 06/26/20 16:15 79 17 119/60 (79) 91 06/26/20 16:01 97.6 77 22 119/58 (78) 85 06/26/20 16:00 Endotracheal Tube Endotracheal Tube 06/26/20 16:00 73 06/26/20 16:00 100 06/26/20 15:45 74 17 101/49 (66) 90 06/26/20 15:30 75 16 104/51 (68) 92 06/26/20 15:30 75 17 100 06/26/20 15:15 77 18 109/55 (73) 91 06/26/20 15:00 74 16 109/51 (70) 91 06/26/20 14:45 75 23 105/53 (70) 91 06/26/20 14:30 74 30 104/50 (68) 91 06/26/20 14:15 74 29 104/51 (68) 91 06/26/20 14:00 74 27 102/51 (68) 91 06/26/20 13:45 74 20 103/51 (68) 91 06/26/20 13:30 74 18 106/50 (68) 92 06/26/20 13:15 73 28 104/54 (71) 91 06/26/20 13:00 72 32 101/52 (68) 91 06/26/20 12:45 72 30 100/50 (67) 91 06/26/20 12:30 71 30 103/54 (70) 92 06/26/20 12:15 71 32 100/50 (67) 92 06/26/20 12:00 97.5 69 25 102/50 (67) 92 06/26/20 12:00 Endotracheal Tube Endotracheal Tube 06/26/20 12:00 100 06/26/20 12:00 74 06/26/20 11:45 70 28 107/53 (71) 91 06/26/20 11:30 70 33 100/54 (69) 90 06/26/20 11:25 24 Mechanical Ventilator 100 06/26/20 11:25 74 16 100 06/26/20 11:15 69 33 104/57 (73) 90 06/26/20 11:00 70 23 98/53 (68) 90 06/26/20 10:45 71 32 101/51 (68) 90 06/26/20 10:30 73 23 106/53 (70) 90 06/26/20 10:15 73 26 110/54 (72) 88 06/26/20 10:00 75 21 109/51 (70) 88 06/26/20 09:45 73 19 115/53 (73) 92 06/26/20 09:40 74 115/62 06/26/20 09:30 72 18 111/53 (72) 91 06/26/20 09:15 72 18 115/51 (72) 91 06/26/20 09:00 71 18 107/49 (68) 91 06/26/20 08:45 73 19 112/52 (72) 92 06/26/20 08:30 74 19 115/51 (72) 92 06/26/20 08:15 74 19 121/53 (75) 92 06/26/20 08:00 100 06/26/20 08:00 Endotracheal Tube Endotracheal Tube 06/26/20 08:00 75 06/26/20 07:45 74 19 118/55 (76) 90 06/26/20 07:30 72 25 100 06/26/20 07:30 75 20 116/48 (70) 90 06/26/20 07:15 76 19 110/49 (69) 91 06/26/20 07:00 77 19 110/55 (73) 91 06/26/20 07:00 20 Mechanical Ventilator 100 06/26/20 07:00 20 110/49 Mechanical Ventilator 100 06/26/20 06:00 20 Mechanical Ventilator 100 06/26/20 06:00 20 113/53 Mechanical Ventilator 100 06/26/20 06:00 74 21 115/51 (72) 90 06/26/20 05:30 77 19 118/52 (74) 65 06/26/20 05:00 76 21 116/52 (73) 63 06/26/20 05:00 20 100 06/26/20 05:00 20 117/52 Mechanical Ventilator 100 06/26/20 04:30 75 22 116/53 (74) 100 06/26/20 04:00 100 06/26/20 04:00 79 06/26/20 04:00 98.7 76 22 117/51 (73) 92 06/26/20 04:00 Endotracheal Tube Endotracheal Tube 06/26/20 04:00 22 100 06/26/20 04:00 22 118/54 Mechanical Ventilator 100 06/26/20 03:56 77 29 100 06/26/20 03:30 77 22 117/54 (75) 93 06/26/20 03:00 79 22 107/58 (74) 85 06/26/20 03:00 23 Mechanical Ventilator 100 06/26/20 03:00 23 110/57 Mechanical Ventilator 100 06/26/20 02:30 81 22 111/55 (73) 89 06/26/20 02:00 22 Mechanical Ventilator 100 06/26/20 02:00 22 108/58 Mechanical Ventilator 100 06/26/20 02:00 80 22 112/54 (73) 88 06/26/20 01:00 77 35 98/53 (68) 86 06/26/20 01:00 35 Mechanical Ventilator 100 06/26/20 01:00 35 110/56 Mechanical Ventilator 100 06/26/20 00:00 79 06/26/20 00:00 25 Mechanical Ventilator 100 06/26/20 00:00 25 111/56 Mechanical Ventilator 100 06/26/20 00:00 Endotracheal Tube Endotracheal Tube 06/26/20 00:00 100 06/26/20 00:00 76 31 109/56 (73) 87 06/25/20 23:45 82 28 100 06/25/20 23:30 98.0 78 26 107/54 (71) 87 06/25/20 23:00 26 100 06/25/20 23:00 26 105/63 Mechanical Ventilator 100 06/25/20 23:00 78 27 105/63 (77) 87 06/25/20 22:30 79 29 109/53 (71) 86 06/25/20 22:00 29 Mechanical Ventilator 100 06/25/20 22:00 29 101/56 Mechanical Ventilator 100 06/25/20 22:00 78 25 103/59 (74) 87 06/25/20 21:30 78 32 102/55 (71) 86 Intake and Output 06/25/20 06/26/20 19:00 07:00 Intake Total 1606.055 ml 980 ml Output Total 400 ml 751 ml Balance 1206.055 ml 229 ml Intake Free Water 60 ml IV Total 1546.055 ml 980 ml Output Urine Total 400 ml 655 ml Chest Tube Drainage Total 96 ml Laboratory Tests 06/26/20 03:00: White Blood Count 11.3H, Red Blood Count 3.24L, Hemoglobin 9.7L, Hematocrit 30.1L, Mean Corpuscular Volume 93, Mean Corpuscular Hemoglobin 30.1, Mean Corpuscular Hemoglobin Concent 32.4, Red Cell Distribution Width 12.6, Platelet Count 121L, Mean Platelet Volume 8.8, Neutrophils (%) (Auto) , Lymphocytes (%) (Auto) , Monocytes (%) (Auto) , Eosinophils (%) (Auto) , Basophils (%) (Auto) , Differential Total Cells Counted 100, Neutrophils % (Manual) 97H, Lymphocytes % (Manual) 1L, Monocytes % (Manual) 2, Eosinophils % (Manual) 0, Basophils % (Manual) 0, Band Neutrophils 0, Platelet Estimate DecreasedL, Platelet Morphology Normal, Hypochromasia 1+, Sodium Level 133L, Potassium Level 4.6, Chloride Level 104, Carbon Dioxide Level 25, Anion Gap 4L, Blood Urea Nitrogen 20H, Creatinine 0.7, Estimat Glomerular Filtration Rate > 60, Glucose Level 241#H, Uric Acid 2.0L, Calcium Level 7.1L, Phosphorus Level 3.0, Magnesium Level 2.0, Total Bilirubin 0.6, Aspartate Amino Transf (AST/SGOT) 38H, Alanine Aminotr ansferase (ALT/SGPT) 39, Alkaline Phosphatase 71, C-Reactive Protein, Quantitative 17.9H, Pro-B-Type Natriuretic Peptide 122, Total Protein 5.5L, Albumin 2.0L, Globulin 3.5, Albumin/Globulin Ratio 0.6L Height (Feet): 5 Height (Inches): 2.00 Weight (Pounds): 138 Assessment/Plan Problem List: (1) Elevated d-dimer ICD Codes: R79.89 - Other specified abnormal findings of blood chemistry SNOMED: 523069611 (2) Renal insufficiency ICD Codes: N28.9 - Disorder of kidney and ureter, unspecified SNOMED: 460680807, 913655285 (3) PNA (pneumonia) ICD Codes: J18.9 - Pneumonia, unspecified organism SNOMED: 541169256 (4) Dehydration ICD Codes: E86.0 - Dehydration SNOMED: 42858185 (5) LEONARDO (acute kidney injury) ICD Codes: N17.9 - Acute kidney failure, unspecified SNOMED: 7074880, 73546511 (6) Hypoxia ICD Codes: R09.02 - Hypoxemia; J12.82 - Pneumonia due to coronavirus disease 2019 SNOMED: 694066854 (7) Pneumonia due to COVID-19 virus ICD Codes: U07.1 - COVID-19; J12.82 - Pneumonia due to coronavirus disease 2019 SNOMED: 620722108150343600 (8) DMII (diabetes mellitus, type 2) ICD Codes: E11.9 - Type 2 diabetes mellitus without complications SNOMED: 96068955 Status: progressing Assessment/Plan: covid + resp failure intubated azotemia full support sugar improving afebrile lethargy niddm poor prognosis Vidya Clayton MD Jun 26, 2020 21:28
--- NOTE | 2020-06-26 21:55 | NUR ---
NURSE NOTES: REPOSITIONED, SEDATED, KEPT RASS SCORE -2, O2 SATURATION 99% NOTED ON FIO2 100%, BILATERAL CHEST TUBE INTACT AND SEROUS DISCHARGE OUTED FROM RIGHT SIDE, WILL CONTINUE TO MONITOR.
[2020-06-27] VITALS (24 sets, daily range): BP systolic 106–172; BP diastolic 43–59
--- NOTE | 2020-06-27 00:05 | NUR ---
NURSE NOTES: ORAL CARE WAS DONE, KEPT NPO, RASS SCORE -2 STATUS WITH FENTANYL 50MCG/HR AND VERSED 5MG/HR, WILL CONTINUE PLAN OF CARE.
--- NOTE | 2020-06-27 02:40 | NUR ---
NURSE NOTES: NO ACUTE DISTRESS NOTED AT THIS TIME.
--- NOTE | 2020-06-27 05:10 | NUR ---
NURSE NOTES: MORNING CARE AND ORAL CARE WAS DONE, O2 SATURATION 98% NOTED, WILL CONTINUE TO MONITOR.
[2020-06-27] MEDS: NovoLOG Insulin Flexpen SUBQ SCH ×4 (05:40→23:29)
[2020-06-27] MEDS: Midazolam HCl 50mg/10ml vial 100 MG in NS 180 ML IV PRN (07:04)
--- NOTE | 2020-06-27 07:08 | NUR ---
NURSE HAND-OFF REPORT: Latest Vital Signs: Temperature 97.5 , Pulse 78 , B/P 113 /45 , Respiratory Rate 16 , O2 SAT 98 , Mechanical Ventilator, O2 Flow Rate . Vital Sign Comment: EKG Rhythm: Sinus Rhythm Rhythm change?: N MD Notified?: N - MD Response: Latest Carney Fall Score: 50 Fall Risk: High Risk Safety Measures: Call light Within Reach, Bed Alarm Zone 2, Side Rails Side Rails x3, Bed position Low and Locked. Fall Precautions: Yellow Socks Door Sign Patient Fall Education Report given to NORMAN MATTSON.
--- NOTE | 2020-06-27 07:30 | NUR ---
NURSE NOTES: Patient stable at this time sedated at goal of RASS -2. Ventilated as ordered through ETT. NSR on potline monitor. Cardiac sounds benign and breath sounds diminished. Martin draining well to gravity. BL chest tubes noted and functioning to water seal as ordered. Side rails up x2, call light within reach.
[2020-06-27] MEDS: Docusate 100mg cap ORAL SCH ×3 (09:00→17:38)
[2020-06-27] MEDS: Enoxaparin 40mg Inj SUBQ SCH (09:00)
[2020-06-27] MEDS: Pantoprazole Inj IVP SCH ×2 (09:17→20:36)
[2020-06-27] MEDS: Carvedilol 6.25mg Tab ORAL SCH ×2 (09:18→21:00)
[2020-06-27] MEDS: dexAMETHasone 10mg/ml Inj IV SCH (09:18)
[2020-06-27] MEDS: fentaNYL 2500mcg/NS 250ml 250 ML IV SCH (10:45)
[2020-06-27] MEDS: cefTRIAXone 1 GM in D5W 55 ML IVPB SCH (11:32)
--- NOTE | 2020-06-27 12:35 | Infectious Diseases Prog Note ---
Assessment/Plan Assessment/Plan A; Sepsis COVID19 pneumonia Hypoxic respiratory failure Acute kidney injury, resolving Hyperglycemia, DM type 2 Bilateral pneumothorax Leukocytosis improving Anemia P; Finished Remdesivir & Dexamethasone course Continue Rocephin Poor prognosis Subjective ROS Limited/Unobtainable: Yes Constitutional: Denies: fever Allergies: Coded Allergies: No Known Allergies (Unverified , 06/17/20) Objective Last 24 Hour Vital Signs Date Time Temp Pulse Resp B/P (MAP) Pulse Ox O2 Delivery O2 Flow Rate FiO2 06/27/20 12:00 98.0 78 20 112/47 (68) 90 06/27/20 12:00 17 06/27/20 12:00 19 113/47 Endotracheal Tube 80 06/27/20 11:46 100 06/27/20 11:46 Mechanical Ventilator Mechanical Ventilator 06/27/20 11:26 77 06/27/20 11:00 76 17 110/49 (69) 97 06/27/20 11:00 17 80 06/27/20 11:00 17 110/49 Endotracheal Tube 80 06/27/20 10:00 80 17 115/46 (69) 96 06/27/20 10:00 17 Endotracheal Tube 80 06/27/20 10:00 17 115/46 Endotracheal Tube 80 06/27/20 09:18 83 119/47 06/27/20 09:00 17 Endotracheal Tube 80 06/27/20 09:00 17 119/46 Endotracheal Tube 80 06/27/20 09:00 81 16 119/46 (70) 100 06/27/20 08:00 Mechanical Ventilator Mechanical Ventilator 06/27/20 08:00 100 06/27/20 08:00 17 Endotracheal Tube 80 06/27/20 08:00 17 113/44 Endotracheal Tube 80 06/27/20 08:00 80 06/27/20 08:00 97.8 80 16 113/44 (67) 99 06/27/20 07:04 16 Mechanical Ventilator 100 06/27/20 07:00 16 Mechanical Ventilator 100 06/27/20 07:00 16 118/47 Mechanical Ventilator 100 06/27/20 07:00 80 16 118/47 (70) 99 06/27/20 06:00 17 Mechanical Ventilator 100 06/27/20 06:00 17 113/45 Mechanical Ventilator 100 06/27/20 06:00 78 17 113/45 (67) 98 06/27/20 05:08 81 16 100 06/27/20 05:00 80 16 111/49 (69) 99 06/27/20 05:00 16 Mechanical Ventilator 100 06/27/20 05:00 16 111/49 Mechanical Ventilator 100 06/27/20 04:00 Mechanical Ventilator Mechanical Ventilator 06/27/20 04:00 77 06/27/20 04:00 17 Mechanical Ventilator 100 06/27/20 04:00 17 115/47 Mechanical Ventilator 100 06/27/20 04:00 100 06/27/20 04:00 97.5 77 17 115/47 (69) 99 06/27/20 03:21 77 16 100 06/27/20 03:00 77 16 114/48 (70) 98 06/27/20 03:00 16 Mechanical Ventilator 100 06/27/20 03:00 16 114/48 Mechanical Ventilator 100 06/27/20 02:00 16 Mechanical Ventilator 100 06/27/20 02:00 16 110/47 Mechanical Ventilator 100 06/27/20 02:00 75 16 110/47 (68) 97 06/27/20 01:15 76 16 100 06/27/20 01:00 74 16 109/43 (65) 98 06/27/20 01:00 16 Mechanical Ventilator 100 06/27/20 01:00 16 109/43 Mechanical Ventilator 100 06/27/20 00:00 75 06/27/20 00:00 97.6 75 16 106/47 (66) 97 06/27/20 00:00 16 Mechanical Ventilator 100 06/27/20 00:00 16 106/47 Mechanical Ventilator 100 06/27/20 00:00 Mechanical Ventilator Mechanical Ventilator 06/27/20 00:00 100 06/26/20 23:31 77 16 100 06/26/20 23:00 16 Mechanical Ventilator 100 06/26/20 23:00 16 114/45 Mechanical Ventilator 100 06/26/20 23:00 77 16 114/45 (68) 97 06/26/20 22:00 74 16 109/45 (66) 99 06/26/20 22:00 16 Mechanical Ventilator 100 06/26/20 22:00 16 109/45 Mechanical Ventilator 100 06/26/20 21:00 16 Mechanical Ventilator 100 06/26/20 21:00 16 110/48 Mechanical Ventilator 100 06/26/20 21:00 74 111/44 06/26/20 21:00 78 16 110/48 (68) 99 06/26/20 20:45 77 16 118/49 (72) 96 06/26/20 20:31 77 16 100 06/26/20 20:30 76 16 117/51 (73) 86 06/26/20 20:15 75 16 115/54 (74) 88 06/26/20 20:00 Mechanical Ventilator Mechanical Ventilator 06/26/20 20:00 16 Mechanical Ventilator 100 06/26/20 20:00 16 113/51 Mechanical Ventilator 100 06/26/20 20:00 98.0 75 16 113/51 (71) 85 06/26/20 20:00 100 06/26/20 19:45 75 06/26/20 19:30 77 17 115/53 (73) 89 06/26/20 19:07 74 16 100 06/26/20 19:00 74 20 118/52 (74) 88 06/26/20 18:45 77 16 118/52 (74) 83 06/26/20 18:30 75 16 113/52 (72) 84 06/26/20 18:15 75 17 117/50 (72) 90 06/26/20 18:00 72 22 107/54 (71) 89 06/26/20 17:45 77 17 116/55 (75) 86 06/26/20 17:30 74 17 112/54 (73) 87 06/26/20 17:15 76 17 117/54 (75) 87 06/26/20 17:00 76 17 116/54 (74) 87 06/26/20 16:45 77 18 117/54 (75) 87 06/26/20 16:30 77 18 116/54 (74) 94 06/26/20 16:15 79 17 119/60 (79) 91 06/26/20 16:01 97.6 77 22 119/58 (78) 85 06/26/20 16:00 Endotracheal Tube Endotracheal Tube 06/26/20 16:00 73 06/26/20 16:00 100 06/26/20 15:45 74 17 101/49 (66) 90 06/26/20 15:30 75 16 104/51 (68) 92 06/26/20 15:30 75 17 100 06/26/20 15:15 77 18 109/55 (73) 91 06/26/20 15:00 74 16 109/51 (70) 91 06/26/20 14:45 75 23 105/53 (70) 91 06/26/20 14:30 74 30 104/50 (68) 91 06/26/20 14:15 74 29 104/51 (68) 91 06/26/20 14:00 74 27 102/51 (68) 91 06/26/20 13:45 74 20 103/51 (68) 91 06/26/20 13:30 74 18 106/50 (68) 92 06/26/20 13:15 73 28 104/54 (71) 91 06/26/20 13:00 72 32 101/52 (68) 91 06/26/20 12:45 72 30 100/50 (67) 91 Height (Feet): 5 Height (Inches): 2.00 Weight (Pounds): 138 HEENT: other - orally intubated Respiratory/Chest: other - on ventilator, FIO2=80%, bilateral chest tube Cardiovascular: normal rate Abdomen: soft, non tender, other - OG tube Extremities: other - hands edema Neurologic/Psychiatric: other - sedated Microbiology Date/Time Source Procedure Growth Status 06/25/20 12:00 Sputum Gram Stain - Final Complete 06/25/20 12:00 Sputum Culture - Final Mery Albicans Complete Laboratory Tests Test 06/26/20 12:50 06/26/20 18:16 06/26/20 23:05 06/27/20 11:42 POC Whole Blood Glucose Pending Pending 139 MG/DL (74-106) H Pending Current Medications Medications (Trade) Dose Ordered Sig/Maya Route PRN Reason Start Time Stop Time Status Last Admin Dose Admin Acetaminophen (Tylenol) 500 mg Q4H PRN ORAL Mild Pain (Pain Scale 1-3) 06/18/20 00:15 07/18/20 00:14 06/24/20 17:51 Acetaminophen (Tylenol) 500 mg Q4H PRN ORAL Temp >100.5 06/18/20 00:15 07/18/20 00:14 06/25/20 04:05 Carvedilol (Coreg) 6.25 mg EVERY 12 HOURS ORAL 06/22/20 21:00 07/22/20 20:59 06/27/20 09:18 Ceftriaxone Sodium 1 gm/ Dextrose 55 ml @ 110 mls/hr Q24H IVPB 06/23/20 11:00 06/30/20 10:59 06/27/20 11:32 Dextrose (Dextrose 50%) 25 ml Q30M PRN IV Hypoglycemia 06/18/20 14:15 09/16/20 14:14 Dextrose (Dextrose 50%) 50 ml Q30M PRN IV Hypoglycemia 06/18/20 14:15 09/16/20 14:14 Docusate Sodium (Colace) 100 mg THREE TIMES A DAY ORAL 06/18/20 13:00 07/18/20 12:59 06/24/20 17:50 Enoxaparin Sodium (Lovenox) 40 mg DAILY SUBQ 06/21/20 09:00 09/19/20 08:59 06/26/20 09:40 Fentanyl Citrate 250 ml @ 1 mls/hr Q24H IV 06/25/20 10:45 06/27/20 12:59 06/25/20 12:05 Fentanyl Citrate 1000 mcg/Sodium Chloride 100 ml @ 1 mls/hr Q24H IV 06/27/20 13:00 06/29/20 12:59 Haloperidol Lactate (Haldol) 10 mg Q6H PRN IM Agitation 06/23/20 11:30 08/07/20 11:29 06/23/20 11:34 Insulin Aspart (NovoLOG) while NPO Q6HR SUBQ 06/18/20 18:00 09/16/20 17:59 06/26/20 18:35 Midazolam HCl 100 mg/Sodium Chloride 200 ml @ 0 mls/hr Q24H PRN IV Agitation 06/25/20 14:41 06/27/20 14:40 06/27/20 07:04 Pantoprazole (Protonix) 40 mg EVERY 12 HOURS IVP 06/18/20 21:00 07/18/20 20:59 06/27/20 09:17 Sodium Chloride 1,000 ml @ 50 mls/hr Q20H IV 06/26/20 08:00 07/26/20 07:59 06/27/20 04:42 Raji Turpin MD Jun 27, 2020 12:35
--- NOTE | 2020-06-27 12:41 | NUR ---
NURSE HAND-OFF REPORT: Latest Vital Signs: Temperature 98.0 , Pulse 78 , B/P 112 /47 , Respiratory Rate 20 , O2 SAT 90 , Endotracheal Tube, O2 Flow Rate . Vital Sign Comment: STABLE EKG Rhythm: Sinus Rhythm Rhythm change?: N MD Notified?: N - MD Response: Latest Carney Fall Score: 50 Fall Risk: High Risk Safety Measures: Call light Within Reach, Bed Alarm Zone 2, Side Rails Side Rails x3, Bed position Low and Locked. Fall Precautions: Yellow Socks Door Sign Patient Fall Education Report given to Mary Shin. Plan of care endorsed.
--- NOTE | 2020-06-27 12:46 | NUR ---
NURSE NOTES: Report received from NORMAN Fernandes. Patient is sedated in bed. RASS -2. Patient is impulsive, trying to reach ETT. Continued bilateral soft wrist restraints. SR on athletic monitor. ETT 7.0/22cm at lip line. AC 16, TV 400, FiO2 80%, P 8. O2 sat 91-94%. Bilateral chest tubes are in place, connected to low continuos suction as ordered. No air leak. OGT in place and kept NPO as ordered. Martin in place draining to gravity. IV to right AC G20 and right wrist 20 patent and asymptomatic. Fentanyl at 50mg/hr, Versed at 5mg/hr. Bed in lowest position. Side rail up x3. Will resume plan of care.
--- NOTE | 2020-06-27 14:30 | NUR ---
NURSE NOTES: Turned and repositioned patient. Afebrile. Oral care done. O2 sat 90-93. Will continue to monitor.
--- NOTE | 2020-06-27 15:31 | Surgery Progress Note ---
Surgery Progress Note Subjective Procedure Performed 1. right chest tube insertion 2. left chest tube insertion Additional Comments ill appearing b/l chest tube stable on vent support Objective Last 24 Hour Vital Signs Date Time Temp Pulse Resp B/P (MAP) Pulse Ox O2 Delivery O2 Flow Rate FiO2 06/27/20 15:00 79 21 124/50 (74) 90 06/27/20 15:00 20 124/50 Mechanical Ventilator 80 06/27/20 15:00 20 124/50 Mechanical Ventilator 80 06/27/20 15:00 20 Mechanical Ventilator 80 06/27/20 15:00 20 Mechanical Ventilator 80 06/27/20 15:00 79 21 124/50 (74) 90 06/27/20 14:46 20 121/48 Mechanical Ventilator 80 06/27/20 14:00 78 21 122/46 (71) 91 06/27/20 14:00 21 Mechanical Ventilator 80 06/27/20 14:00 21 124/44 Mechanical Ventilator 80 06/27/20 13:20 77 21 80 06/27/20 13:00 79 19 122/48 (72) 92 06/27/20 13:00 19 Mechanical Ventilator 80 06/27/20 13:00 19 116/50 Mechanical Ventilator 80 06/27/20 12:46 Mechanical Ventilator Mechanical Ventilator 06/27/20 12:00 98.0 78 20 112/47 (68) 90 06/27/20 12:00 17 06/27/20 12:00 19 113/47 Endotracheal Tube 80 06/27/20 11:46 100 06/27/20 11:46 Mechanical Ventilator Mechanical Ventilator 06/27/20 11:26 77 06/27/20 11:20 75 17 80 06/27/20 11:00 76 17 110/49 (69) 97 06/27/20 11:00 17 80 06/27/20 11:00 17 110/49 Endotracheal Tube 80 06/27/20 10:00 80 17 115/46 (69) 96 06/27/20 10:00 17 Endotracheal Tube 80 06/27/20 10:00 17 115/46 Endotracheal Tube 80 06/27/20 09:30 83 17 90 06/27/20 09:18 83 119/47 06/27/20 09:00 17 Endotracheal Tube 80 06/27/20 09:00 17 119/46 Endotracheal Tube 80 06/27/20 09:00 81 16 119/46 (70) 100 2/6/21 08:00 Mechanical Ventilator Mechanical Ventilator 06/27/20 08:00 100 06/27/20 08:00 17 Endotracheal Tube 80 06/27/20 08:00 17 113/44 Endotracheal Tube 80 06/27/20 08:00 80 06/27/20 08:00 97.8 80 16 113/44 (67) 99 06/27/20 07:20 76 16 100 06/27/20 07:04 16 Mechanical Ventilator 100 06/27/20 07:00 16 Mechanical Ventilator 100 06/27/20 07:00 16 118/47 Mechanical Ventilator 100 06/27/20 07:00 80 16 118/47 (70) 99 06/27/20 06:00 17 Mechanical Ventilator 100 06/27/20 06:00 17 113/45 Mechanical Ventilator 100 06/27/20 06:00 78 17 113/45 (67) 98 06/27/20 05:08 81 16 100 06/27/20 05:00 80 16 111/49 (69) 99 06/27/20 05:00 16 Mechanical Ventilator 100 06/27/20 05:00 16 111/49 Mechanical Ventilator 100 06/27/20 04:00 Mechanical Ventilator Mechanical Ventilator 06/27/20 04:00 77 06/27/20 04:00 17 Mechanical Ventilator 100 06/27/20 04:00 17 115/47 Mechanical Ventilator 100 06/27/20 04:00 100 06/27/20 04:00 97.5 77 17 115/47 (69) 99 06/27/20 03:21 77 16 100 06/27/20 03:00 77 16 114/48 (70) 98 06/27/20 03:00 16 Mechanical Ventilator 100 06/27/20 03:00 16 114/48 Mechanical Ventilator 100 06/27/20 02:00 16 Mechanical Ventilator 100 06/27/20 02:00 16 110/47 Mechanical Ventilator 100 06/27/20 02:00 75 16 110/47 (68) 97 06/27/20 01:15 76 16 100 06/27/20 01:00 74 16 109/43 (65) 98 06/27/20 01:00 16 Mechanical Ventilator 100 06/27/20 01:00 16 109/43 Mechanical Ventilator 100 06/27/20 00:00 75 06/27/20 00:00 97.6 75 16 106/47 (66) 97 06/27/20 00:00 16 Mechanical Ventilator 100 06/27/20 00:00 16 106/47 Mechanical Ventilator 100 06/27/20 00:00 Mechanical Ventilator Mechanical Ventilator 06/27/20 00:00 100 06/26/20 23:31 77 16 100 06/26/20 23:00 16 Mechanical Ventilator 100 06/26/20 23:00 16 114/45 Mechanical Ventilator 100 06/26/20 23:00 77 16 114/45 (68) 97 06/26/20 22:00 74 16 109/45 (66) 99 06/26/20 22:00 16 Mechanical Ventilator 100 06/26/20 22:00 16 109/45 Mechanical Ventilator 100 06/26/20 21:00 16 Mechanical Ventilator 100 06/26/20 21:00 16 110/48 Mechanical Ventilator 100 06/26/20 21:00 74 111/44 06/26/20 21:00 78 16 110/48 (68) 99 06/26/20 20:45 77 16 118/49 (72) 96 06/26/20 20:31 77 16 100 06/26/20 20:30 76 16 117/51 (73) 86 06/26/20 20:15 75 16 115/54 (74) 88 06/26/20 20:00 Mechanical Ventilator Mechanical Ventilator 06/26/20 20:00 16 Mechanical Ventilator 100 06/26/20 20:00 16 113/51 Mechanical Ventilator 100 06/26/20 20:00 98.0 75 16 113/51 (71) 85 06/26/20 20:00 100 06/26/20 19:45 75 06/26/20 19:30 77 17 115/53 (73) 89 06/26/20 19:07 74 16 100 06/26/20 19:00 74 20 118/52 (74) 88 06/26/20 18:45 77 16 118/52 (74) 83 06/26/20 18:30 75 16 113/52 (72) 84 06/26/20 18:15 75 17 117/50 (72) 90 06/26/20 18:00 72 22 107/54 (71) 89 06/26/20 17:45 77 17 116/55 (75) 86 06/26/20 17:30 74 17 112/54 (73) 87 06/26/20 17:15 76 17 117/54 (75) 87 06/26/20 17:00 76 17 116/54 (74) 87 06/26/20 16:45 77 18 117/54 (75) 87 06/26/20 16:30 77 18 116/54 (74) 94 06/26/20 16:15 79 17 119/60 (79) 91 06/26/20 16:01 97.6 77 22 119/58 (78) 85 06/26/20 16:00 Endotracheal Tube Endotracheal Tube 06/26/20 16:00 73 06/26/20 16:00 100 06/26/20 15:45 74 17 101/49 (66) 90 I&O Intake and Output 06/26/20 06/27/20 19:00 07:00 Intake Total 1166.663 ml 780 ml Output Total 779 ml 770 ml Balance 387.663 ml 10 ml Intake Free Water 90 ml IV Total 1076.663 ml 780 ml Output Urine Total 740 ml 760 ml Chest Tube Drainage Total 39 ml 10 ml Dressing: saturated Drains: other Cardiovascular: RSR Respiratory: decreased breath sounds Abdomen: soft, non-tender, decreased bowel sounds Extremities: edema, no tenderness, no cyanosis Laboratory Tests Test 06/26/20 18:16 06/26/20 23:05 06/27/20 11:42 POC Whole Blood Glucose Pending 139 MG/DL (74-106) H Pending Plan Problems: (1) Renal insufficiency (2) Elevated d-dimer (3) Dehydration (4) LEONARDO (acute kidney injury) (5) DMII (diabetes mellitus, type 2) (6) Hypoxia (7) Pneumonia due to COVID-19 virus (8) PNA (pneumonia) (9) Pneumothorax Assessment & Plan: Bilateral pneumothorax status post bilateral chest tubes. Still on significant vent support. leak performed. Continue weaning vent. Continue with chest tubes. Will monitor and manage chest tubes accordingly. Thank you for let me to participate in patient's care Elpidio Frazier Jun 27, 2020 15:31
--- NOTE | 2020-06-27 15:38 | Pulmonology Progress Note ---
Subjective ROS Limited/Unobtainable: Yes Interval Events: Remains intubated; bilateral chest tubes in place Constitutional: Denies: fever HEENT: Repors: no symptoms Respiratory: Reports: shortness of breath Cardiovascular: Reports: no symptoms Gastrointestinal/Abdominal: Reports: no symptoms Allergies: Coded Allergies: No Known Allergies (Unverified , 06/17/20) All Systems: reviewed and negative except above Objective Last 24 Hour Vital Signs Date Time Temp Pulse Resp B/P (MAP) Pulse Ox O2 Delivery O2 Flow Rate FiO2 06/27/20 15:00 79 21 124/50 (74) 90 06/27/20 15:00 20 124/50 Mechanical Ventilator 80 06/27/20 15:00 20 124/50 Mechanical Ventilator 80 06/27/20 15:00 20 Mechanical Ventilator 80 06/27/20 15:00 20 Mechanical Ventilator 80 06/27/20 15:00 79 21 124/50 (74) 90 06/27/20 14:46 20 121/48 Mechanical Ventilator 80 06/27/20 14:00 78 21 122/46 (71) 91 06/27/20 14:00 21 Mechanical Ventilator 80 06/27/20 14:00 21 124/44 Mechanical Ventilator 80 06/27/20 13:20 77 21 80 06/27/20 13:00 79 19 122/48 (72) 92 06/27/20 13:00 19 Mechanical Ventilator 80 06/27/20 13:00 19 116/50 Mechanical Ventilator 80 06/27/20 12:46 Mechanical Ventilator Mechanical Ventilator 06/27/20 12:00 98.0 78 20 112/47 (68) 90 06/27/20 12:00 17 06/27/20 12:00 19 113/47 Endotracheal Tube 80 06/27/20 11:46 100 06/27/20 11:46 Mechanical Ventilator Mechanical Ventilator 06/27/20 11:26 77 06/27/20 11:20 75 17 80 06/27/20 11:00 76 17 110/49 (69) 97 06/27/20 11:00 17 80 06/27/20 11:00 17 110/49 Endotracheal Tube 80 06/27/20 10:00 80 17 115/46 (69) 96 06/27/20 10:00 17 Endotracheal Tube 80 06/27/20 10:00 17 115/46 Endotracheal Tube 80 06/27/20 09:30 83 17 90 2/6/21 09:18 83 119/47 06/27/20 09:00 17 Endotracheal Tube 80 06/27/20 09:00 17 119/46 Endotracheal Tube 80 06/27/20 09:00 81 16 119/46 (70) 100 06/27/20 08:00 Mechanical Ventilator Mechanical Ventilator 06/27/20 08:00 100 06/27/20 08:00 17 Endotracheal Tube 80 06/27/20 08:00 17 113/44 Endotracheal Tube 80 06/27/20 08:00 80 06/27/20 08:00 97.8 80 16 113/44 (67) 99 06/27/20 07:20 76 16 100 06/27/20 07:04 16 Mechanical Ventilator 100 06/27/20 07:00 16 Mechanical Ventilator 100 06/27/20 07:00 16 118/47 Mechanical Ventilator 100 06/27/20 07:00 80 16 118/47 (70) 99 06/27/20 06:00 17 Mechanical Ventilator 100 06/27/20 06:00 17 113/45 Mechanical Ventilator 100 06/27/20 06:00 78 17 113/45 (67) 98 06/27/20 05:08 81 16 100 06/27/20 05:00 80 16 111/49 (69) 99 06/27/20 05:00 16 Mechanical Ventilator 100 06/27/20 05:00 16 111/49 Mechanical Ventilator 100 06/27/20 04:00 Mechanical Ventilator Mechanical Ventilator 06/27/20 04:00 77 06/27/20 04:00 17 Mechanical Ventilator 100 06/27/20 04:00 17 115/47 Mechanical Ventilator 100 06/27/20 04:00 100 06/27/20 04:00 97.5 77 17 115/47 (69) 99 06/27/20 03:21 77 16 100 06/27/20 03:00 77 16 114/48 (70) 98 06/27/20 03:00 16 Mechanical Ventilator 100 06/27/20 03:00 16 114/48 Mechanical Ventilator 100 06/27/20 02:00 16 Mechanical Ventilator 100 06/27/20 02:00 16 110/47 Mechanical Ventilator 100 06/27/20 02:00 75 16 110/47 (68) 97 06/27/20 01:15 76 16 100 06/27/20 01:00 74 16 109/43 (65) 98 06/27/20 01:00 16 Mechanical Ventilator 100 06/27/20 01:00 16 109/43 Mechanical Ventilator 100 06/27/20 00:00 75 06/27/20 00:00 97.6 75 16 106/47 (66) 97 06/27/20 00:00 16 Mechanical Ventilator 100 06/27/20 00:00 16 106/47 Mechanical Ventilator 100 06/27/20 00:00 Mechanical Ventilator Mechanical Ventilator 06/27/20 00:00 100 06/26/20 23:31 77 16 100 06/26/20 23:00 16 Mechanical Ventilator 100 06/26/20 23:00 16 114/45 Mechanical Ventilator 100 06/26/20 23:00 77 16 114/45 (68) 97 06/26/20 22:00 74 16 109/45 (66) 99 06/26/20 22:00 16 Mechanical Ventilator 100 06/26/20 22:00 16 109/45 Mechanical Ventilator 100 06/26/20 21:00 16 Mechanical Ventilator 100 06/26/20 21:00 16 110/48 Mechanical Ventilator 100 06/26/20 21:00 74 111/44 06/26/20 21:00 78 16 110/48 (68) 99 06/26/20 20:45 77 16 118/49 (72) 96 06/26/20 20:31 77 16 100 06/26/20 20:30 76 16 117/51 (73) 86 06/26/20 20:15 75 16 115/54 (74) 88 06/26/20 20:00 Mechanical Ventilator Mechanical Ventilator 06/26/20 20:00 16 Mechanical Ventilator 100 06/26/20 20:00 16 113/51 Mechanical Ventilator 100 06/26/20 20:00 98.0 75 16 113/51 (71) 85 06/26/20 20:00 100 06/26/20 19:45 75 06/26/20 19:30 77 17 115/53 (73) 89 06/26/20 19:07 74 16 100 06/26/20 19:00 74 20 118/52 (74) 88 06/26/20 18:45 77 16 118/52 (74) 83 06/26/20 18:30 75 16 113/52 (72) 84 06/26/20 18:15 75 17 117/50 (72) 90 06/26/20 18:00 72 22 107/54 (71) 89 06/26/20 17:45 77 17 116/55 (75) 86 06/26/20 17:30 74 17 112/54 (73) 87 06/26/20 17:15 76 17 117/54 (75) 87 06/26/20 17:00 76 17 116/54 (74) 87 06/26/20 16:45 77 18 117/54 (75) 87 06/26/20 16:30 77 18 116/54 (74) 94 06/26/20 16:15 79 17 119/60 (79) 91 06/26/20 16:01 97.6 77 22 119/58 (78) 85 06/26/20 16:00 Endotracheal Tube Endotracheal Tube 06/26/20 16:00 73 06/26/20 16:00 100 06/26/20 15:45 74 17 101/49 (66) 90 Intake and Output 06/26/20 06/27/20 19:00 07:00 Intake Total 1166.663 ml 780 ml Output Total 779 ml 770 ml Balance 387.663 ml 10 ml Intake Free Water 90 ml IV Total 1076.663 ml 780 ml Output Urine Total 740 ml 760 ml Chest Tube Drainage Total 39 ml 10 ml General Appearance: no acute distress HEENT: atraumatic Respiratory: crackles/rales Cardiovascular: normal rate Abdomen: soft, non tender Microbiology Date/Time Source Procedure Growth Status 06/25/20 12:00 Sputum Gram Stain - Final Complete 06/25/20 12:00 Sputum Culture - Final Mery Albicans Complete Laboratory Tests 06/26/20 18:16: POC Whole Blood Glucose [Pending] 06/26/20 23:05: POC Whole Blood Glucose 139H 06/27/20 11:42: POC Whole Blood Glucose [Pending] Current Medications Medications (Trade) Dose Ordered Sig/Maya Route PRN Reason Start Time Stop Time Status Last Admin Dose Admin Acetaminophen (Tylenol) 500 mg Q4H PRN ORAL Mild Pain (Pain Scale 1-3) 06/18/20 00:15 07/18/20 00:14 06/24/20 17:51 Acetaminophen (Tylenol) 500 mg Q4H PRN ORAL Temp >100.5 06/18/20 00:15 07/18/20 00:14 06/25/20 04:05 Carvedilol (Coreg) 6.25 mg EVERY 12 HOURS ORAL 06/22/20 21:00 07/22/20 20:59 06/27/20 09:18 Ceftriaxone Sodium 1 gm/ Dextrose 55 ml @ 110 mls/hr Q24H IVPB 06/23/20 11:00 06/30/20 10:59 06/27/20 11:32 Dextrose (Dextrose 50%) 25 ml Q30M PRN IV Hypoglycemia 06/18/20 14:15 09/16/20 14:14 Dextrose (Dextrose 50%) 50 ml Q30M PRN IV Hypoglycemia 06/18/20 14:15 09/16/20 14:14 Docusate Sodium (Colace) 100 mg THREE TIMES A DAY ORAL 06/18/20 13:00 07/18/20 12:59 06/27/20 13:27 Enoxaparin Sodium (Lovenox) 40 mg DAILY SUBQ 06/21/20 09:00 09/19/20 08:59 06/26/20 09:40 Fentanyl Citrate 1000 mcg/Sodium Chloride 100 ml @ 1 mls/hr Q24H IV 06/27/20 13:00 06/29/20 12:59 06/27/20 14:46 Haloperidol Lactate (Haldol) 10 mg Q6H PRN IM Agitation 06/23/20 11:30 08/07/20 11:29 06/23/20 11:34 Insulin Aspart (NovoLOG) while NPO Q6HR SUBQ 06/18/20 18:00 09/16/20 17:59 06/26/20 18:35 Midazolam HCl 100 mg/Sodium Chloride 200 ml @ 0 mls/hr Q24H PRN IV Agitation 06/25/20 14:41 06/28/20 02:59 06/27/20 07:04 Midazolam HCl 100 mg/Sodium Chloride 200 ml @ 2 mls/hr Q24H PRN IV sedation 06/28/20 03:00 06/30/20 02:59 Pantoprazole (Protonix) 40 mg EVERY 12 HOURS IVP 06/18/20 21:00 07/18/20 20:59 06/27/20 09:17 Sodium Chloride 1,000 ml @ 50 mls/hr Q20H IV 06/26/20 08:00 07/26/20 07:59 06/27/20 04:42 Assessment/Plan Assessment/Plan 1. COVID-19 pneumonia -Intubated, on 80% FiO2. PEEP 5-10. -Will increase PEEP as peak pressures tolerate. SaO2 91% -On Decadron, s/p remdesivir 2. Leukocytosis -Likely secondary to #1 -WBC improving 3. Elevated D-dimer -Venous duplex ultrasound negative for DVT -Was on full dose Lovenox, switched to 40 subcu QD for DVT prophylaxis 4. Renal insufficiency -On IV fluids - nephro following 5. Anemia of chronic disease -Hematology oncology following 6. Sepsis -Status post antibiotics, fluid resuscitation 7. Pneumothorax 06/22/20 - b/l subcutaneous emphysema, pneumomediastinum, probable small left pneumothorax & ? trace right pneumothorax. -Pleur-evac adjusted by RN - placed CT by surgery (bilateral) - Charlie Sewell MD Jun 27, 2020 15:38
--- NOTE | 2020-06-27 17:24 | NUR ---
NURSE NOTES: Dr De Jesus here to see the patient. Notified him with patient's current condition including that nurses were unable to insert Martin, patient voided, and post-residual bladder scan shows 140ml. Awaiting new orders to be entered. Addendum: 06/27/20 at 1733 by HARISH ELIZONDO RN RN NURSE NOTES: Dr De Jesus here to see the patient. Notified him with patient's current condition. Awaiting new orders to be entered.
--- NOTE | 2020-06-27 17:33 | NUR ---
CASE MANAGEMENT:REVIEW 06/27/20 SI: COVID PNA. HYPOXIA ~ INTUBATED VS: T 98 HR 82 RR 21 B/P 130/49 SATS 91% ON MECH VENT FIO2 80 LABS: NO LABS TODAY IS: FENTANYL GTT IV ROCEPHIN Q24H COREG NG Q12H IV DECADRON QD IVF@100 mL/HR IV PROTONIX Q12H LOVENOX SQ Q12H : ICU STATUS DCP: FROM HOME PLAN: SUPPORTIVE CARE Continue weaning vent. Continue with chest tubes
--- NOTE | 2020-06-27 17:45 | Nephrology Progress Note ---
Assessment/Plan Problem List: (1) LEONARDO (acute kidney injury) (2) Dehydration (3) DMII (diabetes mellitus, type 2) (4) Pneumonia due to COVID-19 virus (5) Hypoxia Assessment 70-year-old female presents with COVID-19 pneumonia and hypoxia On admission has BUN of 77 and creatinine of 1.6. Renal failure most likely prerenal and dehydration with possible underlying chronic kidney disease Patient has elevated inflammatory markers Hypoalbuminemia Electrolyte abnormalities Hyperglycemia Plan June 27: No chemistry panel done today. Remains full code. Medication list reviewed. Continue per consultants. Will monitor electrolytes and renal panel in a.m. June 26: Status quo. Remains full code. Labs reviewed. Main IV changed to normal saline 50 cc an hour. Continue per consultants and pulmonary. June 25: Remains intubated. Has bilateral chest tube. Full code. Labs reviewed. Abnormal electrolytes addressed. Albumin bolus given. Continue to monitor renal parameters. Poor prognosis. June 24: Patient in ICU. Intubated. Has bilateral chest tube. Labs reviewed. Renal parameters stable. Low phosphorus addressed. Continue per consultants. Full code. Poor prognosis. June 23: Patient in ICU. Intubated. Due for insertion of a chest tube. Has pneumothorax. Renal parameters are stable. Serum sodium rising. Will adjust IV fluid. Continue per consultants. Patient full code. Prognosis poor. June 22: Labs reviewed. Remains on BiPAP which is not changed to high flow oxygen due to pneumothorax found on chest x-ray. Serum sodium 155. Continues on D5W. Electrolytes within normal limits. Check 2D echocardiogram. Coreg for blood pressure and heart rate. June 21: Status quo. On BiPAP. Full code. Serum sodium 153. Continue D5W. Continue to monitor electrolytes. Continue per consultants. June 20: Patient full code. On BiPAP. Labs reviewed. Serum sodium rising. Will increase D5W to 75 cc an hour. Continue to monitor electrolytes. June 19: IV changed to D5W. Monitor blood sugar. Monitor electrolytes. Medication list reviewed. Patient is being treated for COVID-19 pneumonia. Patient is full code. Previously Pulmonary support IV antibiotics Slow hydration Avoid nephrotoxic Monitor renal parameters Per orders Subjective ROS Limited/Unobtainable: Yes Objective Objective Last 24 Hour Vital Signs Date Time Temp Pulse Resp B/P (MAP) Pulse Ox O2 Delivery O2 Flow Rate FiO2 06/27/20 17:00 83 22 128/51 (76) 90 06/27/20 17:00 21 129/45 Mechanical Ventilator 80 06/27/20 17:00 21 Mechanical Ventilator 80 06/27/20 16:00 Mechanical Ventilator Mechanical Ventilator 06/27/20 16:00 20 129/49 Mechanical Ventilator 80 06/27/20 16:00 22 Mechanical Ventilator 80 06/27/20 16:00 80 06/27/20 16:00 98.0 82 21 130/49 (76) 91 06/27/20 15:44 82 06/27/20 15:15 82 21 80 06/27/20 15:00 79 21 124/50 (74) 90 06/27/20 15:00 20 124/50 Mechanical Ventilator 80 06/27/20 15:00 20 124/50 Mechanical Ventilator 80 06/27/20 15:00 20 Mechanical Ventilator 80 06/27/20 15:00 20 Mechanical Ventilator 80 06/27/20 14:46 20 121/48 Mechanical Ventilator 80 06/27/20 14:00 78 21 122/46 (71) 91 06/27/20 14:00 21 Mechanical Ventilator 80 06/27/20 14:00 21 124/44 Mechanical Ventilator 80 06/27/20 13:20 77 21 80 06/27/20 13:00 79 19 122/48 (72) 92 06/27/20 13:00 19 Mechanical Ventilator 80 06/27/20 13:00 19 116/50 Mechanical Ventilator 80 06/27/20 12:46 Mechanical Ventilator Mechanical Ventilator 06/27/20 12:00 98.0 78 20 112/47 (68) 90 06/27/20 12:00 17 06/27/20 12:00 19 113/47 Endotracheal Tube 80 06/27/20 11:46 100 06/27/20 11:46 Mechanical Ventilator Mechanical Ventilator 06/27/20 11:26 77 06/27/20 11:20 75 17 80 06/27/20 11:00 76 17 110/49 (69) 97 06/27/20 11:00 17 80 06/27/20 11:00 17 110/49 Endotracheal Tube 80 06/27/20 10:00 80 17 115/46 (69) 96 06/27/20 10:00 17 Endotracheal Tube 80 06/27/20 10:00 17 115/46 Endotracheal Tube 80 06/27/20 09:30 83 17 90 06/27/20 09:18 83 119/47 06/27/20 09:00 17 Endotracheal Tube 80 06/27/20 09:00 17 119/46 Endotracheal Tube 80 06/27/20 09:00 81 16 119/46 (70) 100 06/27/20 08:00 Mechanical Ventilator Mechanical Ventilator 06/27/20 08:00 100 06/27/20 08:00 17 Endotracheal Tube 80 06/27/20 08:00 17 113/44 Endotracheal Tube 80 06/27/20 08:00 80 06/27/20 08:00 97.8 80 16 113/44 (67) 99 06/27/20 07:20 76 16 100 06/27/20 07:04 16 Mechanical Ventilator 100 06/27/20 07:00 16 Mechanical Ventilator 100 06/27/20 07:00 16 118/47 Mechanical Ventilator 100 06/27/20 07:00 80 16 118/47 (70) 99 06/27/20 06:00 17 Mechanical Ventilator 100 06/27/20 06:00 17 113/45 Mechanical Ventilator 100 06/27/20 06:00 78 17 113/45 (67) 98 06/27/20 05:08 81 16 100 06/27/20 05:00 80 16 111/49 (69) 99 06/27/20 05:00 16 Mechanical Ventilator 100 06/27/20 05:00 16 111/49 Mechanical Ventilator 100 06/27/20 04:00 Mechanical Ventilator Mechanical Ventilator 06/27/20 04:00 77 06/27/20 04:00 17 Mechanical Ventilator 100 06/27/20 04:00 17 115/47 Mechanical Ventilator 100 06/27/20 04:00 100 06/27/20 04:00 97.5 77 17 115/47 (69) 99 06/27/20 03:21 77 16 100 06/27/20 03:00 77 16 114/48 (70) 98 06/27/20 03:00 16 Mechanical Ventilator 100 06/27/20 03:00 16 114/48 Mechanical Ventilator 100 06/27/20 02:00 16 Mechanical Ventilator 100 06/27/20 02:00 16 110/47 Mechanical Ventilator 100 06/27/20 02:00 75 16 110/47 (68) 97 06/27/20 01:15 76 16 100 06/27/20 01:00 74 16 109/43 (65) 98 2/6/21 01:00 16 Mechanical Ventilator 100 06/27/20 01:00 16 109/43 Mechanical Ventilator 100 06/27/20 00:00 75 06/27/20 00:00 97.6 75 16 106/47 (66) 97 06/27/20 00:00 16 Mechanical Ventilator 100 06/27/20 00:00 16 106/47 Mechanical Ventilator 100 06/27/20 00:00 Mechanical Ventilator Mechanical Ventilator 06/27/20 00:00 100 06/26/20 23:31 77 16 100 06/26/20 23:00 16 Mechanical Ventilator 100 06/26/20 23:00 16 114/45 Mechanical Ventilator 100 06/26/20 23:00 77 16 114/45 (68) 97 06/26/20 22:00 74 16 109/45 (66) 99 06/26/20 22:00 16 Mechanical Ventilator 100 06/26/20 22:00 16 109/45 Mechanical Ventilator 100 06/26/20 21:00 16 Mechanical Ventilator 100 06/26/20 21:00 16 110/48 Mechanical Ventilator 100 06/26/20 21:00 74 111/44 06/26/20 21:00 78 16 110/48 (68) 99 06/26/20 20:45 77 16 118/49 (72) 96 06/26/20 20:31 77 16 100 06/26/20 20:30 76 16 117/51 (73) 86 06/26/20 20:15 75 16 115/54 (74) 88 06/26/20 20:00 Mechanical Ventilator Mechanical Ventilator 06/26/20 20:00 16 Mechanical Ventilator 100 06/26/20 20:00 16 113/51 Mechanical Ventilator 100 06/26/20 20:00 98.0 75 16 113/51 (71) 85 06/26/20 20:00 100 06/26/20 19:45 75 06/26/20 19:30 77 17 115/53 (73) 89 06/26/20 19:07 74 16 100 06/26/20 19:00 74 20 118/52 (74) 88 06/26/20 18:45 77 16 118/52 (74) 83 06/26/20 18:30 75 16 113/52 (72) 84 06/26/20 18:15 75 17 117/50 (72) 90 06/26/20 18:00 72 22 107/54 (71) 89 06/26/20 17:45 77 17 116/55 (75) 86 Intake and Output 06/26/20 06/27/20 19:00 07:00 Intake Total 1166.663 ml 780 ml Output Total 779 ml 770 ml Balance 387.663 ml 10 ml Intake Free Water 90 ml IV Total 1076.663 ml 780 ml Output Urine Total 740 ml 760 ml Chest Tube Drainage Total 39 ml 10 ml Current Medications Medications (Trade) Dose Ordered Sig/Maya Route PRN Reason Start Time Stop Time Status Last Admin Dose Admin Acetaminophen (Tylenol) 500 mg Q4H PRN ORAL Mild Pain (Pain Scale 1-3) 06/18/20 00:15 07/18/20 00:14 06/24/20 17:51 Acetaminophen (Tylenol) 500 mg Q4H PRN ORAL Temp >100.5 06/18/20 00:15 07/18/20 00:14 06/25/20 04:05 Carvedilol (Coreg) 6.25 mg EVERY 12 HOURS ORAL 06/22/20 21:00 07/22/20 20:59 06/27/20 09:18 Ceftriaxone Sodium 1 gm/ Dextrose 55 ml @ 110 mls/hr Q24H IVPB 06/23/20 11:00 06/30/20 10:59 06/27/20 11:32 Dextrose (Dextrose 50%) 25 ml Q30M PRN IV Hypoglycemia 06/18/20 14:15 09/16/20 14:14 Dextrose (Dextrose 50%) 50 ml Q30M PRN IV Hypoglycemia 06/18/20 14:15 09/16/20 14:14 Docusate Sodium (Colace) 100 mg THREE TIMES A DAY ORAL 06/18/20 13:00 07/18/20 12:59 06/27/20 17:38 Enoxaparin Sodium (Lovenox) 40 mg DAILY SUBQ 06/21/20 09:00 09/19/20 08:59 06/26/20 09:40 Fentanyl Citrate 1000 mcg/Sodium Chloride 100 ml @ 1 mls/hr Q24H IV 06/27/20 13:00 06/29/20 12:59 06/27/20 14:46 Haloperidol Lactate (Haldol) 10 mg Q6H PRN IM Agitation 06/23/20 11:30 08/07/20 11:29 06/23/20 11:34 Insulin Aspart (NovoLOG) while NPO Q6HR SUBQ 06/18/20 18:00 09/16/20 17:59 06/26/20 18:35 Midazolam HCl 100 mg/Sodium Chloride 200 ml @ 0 mls/hr Q24H PRN IV Agitation 06/25/20 14:41 06/28/20 02:59 06/27/20 07:04 Midazolam HCl 100 mg/Sodium Chloride 200 ml @ 2 mls/hr Q24H PRN IV sedation 06/28/20 03:00 06/30/20 02:59 Pantoprazole (Protonix) 40 mg EVERY 12 HOURS IVP 06/18/20 21:00 07/18/20 20:59 06/27/20 09:17 Sodium Chloride 1,000 ml @ 50 mls/hr Q20H IV 06/26/20 08:00 07/26/20 07:59 06/27/20 04:42 Laboratory Tests 06/26/20 18:16: POC Whole Blood Glucose [Pending] 06/26/20 23:05: POC Whole Blood Glucose 139H 06/27/20 11:42: POC Whole Blood Glucose [Pending] Height (Feet): 5 Height (Inches): 2.00 Weight (Pounds): 138 General Appearance: no apparent distress Cardiovascular: normal rate Respiratory/Chest: decreased breath sounds Abdomen: distended Raza De Jesus MD Jun 27, 2020 17:45
--- NOTE | 2020-06-27 18:01 | Cardiac Electrophysiology PN ---
Assessment/Plan Assessment/Plan 1. Respiratory failure likely due to COVID pneumonia. Intubated on 100% Fio2. Echocardiogram showed ejection fraction within normal range. 2. Bilateral pneumothoraces. S/P bilateral chest tube placement with now minimal drainage 3. Troponin elevation. Levels are low and flat could be demand ischemia vs Renal failure EKG shows sinus tachycardia at 110 beats per minute. 4. Hypernatremia with sodium of 155. IV fluids per Dr. De Jesus. 5. Azotemia, BUN 31 and creatinine 0.8. 6. The patient is also COVID-19 positive and is in isolation, on dexamethasone, completed Remdesivir. 7. Hypertension, on Coreg 6.25 mg b.i.d. Subjective Subjective Intubated in ICU on Fentanyl drip and Versed drip . Has bilateral chest tube with minimal drainage. SQ emphysema getting better. On 80% Fio2, PEEP 8 . Off pressors Objective Last 24 Hour Vital Signs Date Time Temp Pulse Resp B/P (MAP) Pulse Ox O2 Delivery O2 Flow Rate FiO2 06/27/20 17:20 78 21 80 06/27/20 17:00 83 22 128/51 (76) 90 06/27/20 17:00 21 129/45 Mechanical Ventilator 80 06/27/20 17:00 21 Mechanical Ventilator 80 06/27/20 16:00 Mechanical Ventilator Mechanical Ventilator 06/27/20 16:00 20 129/49 Mechanical Ventilator 80 06/27/20 16:00 22 Mechanical Ventilator 80 06/27/20 16:00 80 06/27/20 16:00 98.0 82 21 130/49 (76) 91 06/27/20 15:44 82 06/27/20 15:15 82 21 80 06/27/20 15:00 79 21 124/50 (74) 90 06/27/20 15:00 20 124/50 Mechanical Ventilator 80 06/27/20 15:00 20 124/50 Mechanical Ventilator 80 06/27/20 15:00 20 Mechanical Ventilator 80 06/27/20 15:00 20 Mechanical Ventilator 80 06/27/20 14:46 20 121/48 Mechanical Ventilator 80 06/27/20 14:00 78 21 122/46 (71) 91 06/27/20 14:00 21 Mechanical Ventilator 80 06/27/20 14:00 21 124/44 Mechanical Ventilator 80 06/27/20 13:20 77 21 80 06/27/20 13:00 79 19 122/48 (72) 92 06/27/20 13:00 19 Mechanical Ventilator 80 06/27/20 13:00 19 116/50 Mechanical Ventilator 80 06/27/20 12:46 Mechanical Ventilator Mechanical Ventilator 06/27/20 12:00 98.0 78 20 112/47 (68) 90 06/27/20 12:00 17 06/27/20 12:00 19 113/47 Endotracheal Tube 80 06/27/20 11:46 100 06/27/20 11:46 Mechanical Ventilator Mechanical Ventilator 06/27/20 11:26 77 06/27/20 11:20 75 17 80 06/27/20 11:00 76 17 110/49 (69) 97 06/27/20 11:00 17 80 06/27/20 11:00 17 110/49 Endotracheal Tube 80 06/27/20 10:00 80 17 115/46 (69) 96 06/27/20 10:00 17 Endotracheal Tube 80 06/27/20 10:00 17 115/46 Endotracheal Tube 80 06/27/20 09:30 83 17 90 06/27/20 09:18 83 119/47 06/27/20 09:00 17 Endotracheal Tube 80 06/27/20 09:00 17 119/46 Endotracheal Tube 80 06/27/20 09:00 81 16 119/46 (70) 100 06/27/20 08:00 Mechanical Ventilator Mechanical Ventilator 06/27/20 08:00 100 06/27/20 08:00 17 Endotracheal Tube 80 06/27/20 08:00 17 113/44 Endotracheal Tube 80 06/27/20 08:00 80 06/27/20 08:00 97.8 80 16 113/44 (67) 99 06/27/20 07:20 76 16 100 06/27/20 07:04 16 Mechanical Ventilator 100 06/27/20 07:00 16 Mechanical Ventilator 100 06/27/20 07:00 16 118/47 Mechanical Ventilator 100 06/27/20 07:00 80 16 118/47 (70) 99 06/27/20 06:00 17 Mechanical Ventilator 100 06/27/20 06:00 17 113/45 Mechanical Ventilator 100 06/27/20 06:00 78 17 113/45 (67) 98 06/27/20 05:08 81 16 100 06/27/20 05:00 80 16 111/49 (69) 99 06/27/20 05:00 16 Mechanical Ventilator 100 06/27/20 05:00 16 111/49 Mechanical Ventilator 100 06/27/20 04:00 Mechanical Ventilator Mechanical Ventilator 06/27/20 04:00 77 06/27/20 04:00 17 Mechanical Ventilator 100 06/27/20 04:00 17 115/47 Mechanical Ventilator 100 06/27/20 04:00 100 06/27/20 04:00 97.5 77 17 115/47 (69) 99 06/27/20 03:21 77 16 100 06/27/20 03:00 77 16 114/48 (70) 98 06/27/20 03:00 16 Mechanical Ventilator 100 06/27/20 03:00 16 114/48 Mechanical Ventilator 100 06/27/20 02:00 16 Mechanical Ventilator 100 06/27/20 02:00 16 110/47 Mechanical Ventilator 100 06/27/20 02:00 75 16 110/47 (68) 97 06/27/20 01:15 76 16 100 06/27/20 01:00 74 16 109/43 (65) 98 06/27/20 01:00 16 Mechanical Ventilator 100 06/27/20 01:00 16 109/43 Mechanical Ventilator 100 06/27/20 00:00 75 06/27/20 00:00 97.6 75 16 106/47 (66) 97 06/27/20 00:00 16 Mechanical Ventilator 100 06/27/20 00:00 16 106/47 Mechanical Ventilator 100 06/27/20 00:00 Mechanical Ventilator Mechanical Ventilator 06/27/20 00:00 100 06/26/20 23:31 77 16 100 06/26/20 23:00 16 Mechanical Ventilator 100 06/26/20 23:00 16 114/45 Mechanical Ventilator 100 06/26/20 23:00 77 16 114/45 (68) 97 06/26/20 22:00 74 16 109/45 (66) 99 06/26/20 22:00 16 Mechanical Ventilator 100 06/26/20 22:00 16 109/45 Mechanical Ventilator 100 06/26/20 21:00 16 Mechanical Ventilator 100 06/26/20 21:00 16 110/48 Mechanical Ventilator 100 06/26/20 21:00 74 111/44 06/26/20 21:00 78 16 110/48 (68) 99 06/26/20 20:45 77 16 118/49 (72) 96 06/26/20 20:31 77 16 100 06/26/20 20:30 76 16 117/51 (73) 86 06/26/20 20:15 75 16 115/54 (74) 88 06/26/20 20:00 Mechanical Ventilator Mechanical Ventilator 06/26/20 20:00 16 Mechanical Ventilator 100 06/26/20 20:00 16 113/51 Mechanical Ventilator 100 06/26/20 20:00 98.0 75 16 113/51 (71) 85 06/26/20 20:00 100 06/26/20 19:45 75 06/26/20 19:30 77 17 115/53 (73) 89 06/26/20 19:07 74 16 100 06/26/20 19:00 74 20 118/52 (74) 88 06/26/20 18:45 77 16 118/52 (74) 83 06/26/20 18:30 75 16 113/52 (72) 84 06/26/20 18:15 75 17 117/50 (72) 90 06/26/20 18:00 72 22 107/54 (71) 89 Intake and Output 06/26/20 06/27/20 19:00 07:00 Intake Total 1166.663 ml 780 ml Output Total 779 ml 770 ml Balance 387.663 ml 10 ml Intake Free Water 90 ml IV Total 1076.663 ml 780 ml Output Urine Total 740 ml 760 ml Chest Tube Drainage Total 39 ml 10 ml Laboratory Tests Test 06/26/20 18:16 06/26/20 23:05 06/27/20 11:42 POC Whole Blood Glucose Pending 139 MG/DL (74-106) H Pending Microbiology Date/Time Source Procedure Growth Status 06/25/20 12:00 Sputum Gram Stain - Final Complete 06/25/20 12:00 Sputum Culture - Final Mery Albicans Complete Objective HEAD AND NECK: No JVD.Orally intubated with SQ emphysema LUNGS: Coarse rhonchi bilaterally. Bilateral chest tubes in. CARDIOVASCULAR: Regular S1 and S2 and tachycardic. ABDOMEN: Soft. EXTREMITIES: No pitting edema. Maxwell Carreon MD Jun 27, 2020 18:01
--- NOTE | 2020-06-27 19:20 | NUR ---
NURSE HAND-OFF REPORT: Latest Vital Signs: Temperature 98.0 , Pulse 83 , B/P 132 /52 , Respiratory Rate 21 , O2 SAT 88 , Mechanical Ventilator, O2 Flow Rate . Vital Sign Comment: EKG Rhythm: Sinus Rhythm Rhythm change?: N MD Notified?: MD Response: Latest Carney Fall Score: 50 Fall Risk: High Risk Safety Measures: Call light Within Reach, Bed Alarm Zone 2, Side Rails Side Rails x3, Bed position Low and Locked. Fall Precautions: Yellow Socks Door Sign Patient Fall Education Report given to Arpan العراقي RN.
--- NOTE | 2020-06-27 19:50 | NUR ---
NURSE NOTES: PATIENT SEDATED, RASS SCORE -2 STATUS, ON ETT TO VENT AC 16/TV400/FIO2 80%/PEEP 8, O2 SATURATION 85% NOTED, CHEST TUBE TO BILATERAL INTACT WITH PLEU VAC, SEROUS DISCHARGE OUTED, OGT INTACT AND PATENT, NPO STATUS, KEPT HOB 30 DEGREES AND ASPIRATION PRECAUTION, ABDOMEN SOFT, NON TENDER, NO BM STATUS, F/C INTACT AND PATENT, MALCOLM COLOR URINE OUTED, PPL TO RIGHT AC 20G AND RIGHT WRIST 20G, INTACT AND PATENT, ONGOING VERSED 5MG AND FENTANYL 50MCG/HR VIA RT. AC PPL, IV FLUID NS AT 50 ML VIA RT. WRIST PPL, KEPT [place] PRECAUTION, MADE LOWER BED POSITION, ON BED ALARM AND LOCKED, WILL CONTINUE TO MONITOR.
--- NOTE | 2020-06-27 21:38 | General Progress Note ---
Subjective ROS Limited/Unobtainable: Yes Allergies: Coded Allergies: No Known Allergies (Unverified , 06/17/20) Objective Last 24 Hour Vital Signs Date Time Temp Pulse Resp B/P (MAP) Pulse Ox O2 Delivery O2 Flow Rate FiO2 06/27/20 21:00 22 141/54 Mechanical Ventilator 80 06/27/20 21:00 22 Mechanical Ventilator 80 06/27/20 21:00 82 141/54 06/27/20 21:00 82 22 141/54 (83) 100 06/27/20 20:00 Mechanical Ventilator Mechanical Ventilator 06/27/20 20:00 80 06/27/20 20:00 21 136/51 Mechanical Ventilator 80 06/27/20 20:00 21 Mechanical Ventilator 80 06/27/20 20:00 98.6 84 21 136/51 (79) 86 06/27/20 19:20 83 21 80 06/27/20 19:16 89 06/27/20 19:00 88 22 136/53 (80) 88 06/27/20 19:00 22 132/52 Mechanical Ventilator 80 06/27/20 19:00 22 Mechanical Ventilator 80 06/27/20 18:00 88 21 172/57 (95) 87 06/27/20 18:00 23 160/58 Mechanical Ventilator 80 06/27/20 18:00 23 Mechanical Ventilator 80 06/27/20 17:20 78 21 80 06/27/20 17:00 83 22 128/51 (76) 90 06/27/20 17:00 21 129/45 Mechanical Ventilator 80 06/27/20 17:00 21 Mechanical Ventilator 80 06/27/20 16:00 Mechanical Ventilator Mechanical Ventilator 06/27/20 16:00 20 129/49 Mechanical Ventilator 80 06/27/20 16:00 22 Mechanical Ventilator 80 06/27/20 16:00 80 06/27/20 16:00 98.0 82 21 130/49 (76) 91 06/27/20 15:44 82 06/27/20 15:15 82 21 80 06/27/20 15:00 79 21 124/50 (74) 90 06/27/20 15:00 20 124/50 Mechanical Ventilator 80 06/27/20 15:00 20 124/50 Mechanical Ventilator 80 06/27/20 15:00 20 Mechanical Ventilator 80 06/27/20 15:00 20 Mechanical Ventilator 80 06/27/20 14:46 20 121/48 Mechanical Ventilator 80 06/27/20 14:00 78 21 122/46 (71) 91 06/27/20 14:00 21 Mechanical Ventilator 80 06/27/20 14:00 21 124/44 Mechanical Ventilator 80 06/27/20 13:20 77 21 80 06/27/20 13:00 79 19 122/48 (72) 92 06/27/20 13:00 19 Mechanical Ventilator 80 06/27/20 13:00 19 116/50 Mechanical Ventilator 80 06/27/20 12:46 Mechanical Ventilator Mechanical Ventilator 06/27/20 12:00 98.0 78 20 112/47 (68) 90 06/27/20 12:00 17 06/27/20 12:00 19 113/47 Endotracheal Tube 80 06/27/20 11:46 100 06/27/20 11:46 Mechanical Ventilator Mechanical Ventilator 06/27/20 11:26 77 06/27/20 11:20 75 17 80 06/27/20 11:00 76 17 110/49 (69) 97 06/27/20 11:00 17 80 06/27/20 11:00 17 110/49 Endotracheal Tube 80 06/27/20 10:00 80 17 115/46 (69) 96 06/27/20 10:00 17 Endotracheal Tube 80 06/27/20 10:00 17 115/46 Endotracheal Tube 80 06/27/20 09:30 83 17 90 06/27/20 09:18 83 119/47 06/27/20 09:00 17 Endotracheal Tube 80 06/27/20 09:00 17 119/46 Endotracheal Tube 80 06/27/20 09:00 81 16 119/46 (70) 100 06/27/20 08:00 Mechanical Ventilator Mechanical Ventilator 06/27/20 08:00 100 06/27/20 08:00 17 Endotracheal Tube 80 06/27/20 08:00 17 113/44 Endotracheal Tube 80 06/27/20 08:00 80 06/27/20 08:00 97.8 80 16 113/44 (67) 99 06/27/20 07:20 76 16 100 06/27/20 07:04 16 Mechanical Ventilator 100 06/27/20 07:00 16 Mechanical Ventilator 100 06/27/20 07:00 16 118/47 Mechanical Ventilator 100 06/27/20 07:00 80 16 118/47 (70) 99 2/6/21 06:00 17 Mechanical Ventilator 100 06/27/20 06:00 17 113/45 Mechanical Ventilator 100 06/27/20 06:00 78 17 113/45 (67) 98 06/27/20 05:08 81 16 100 06/27/20 05:00 80 16 111/49 (69) 99 06/27/20 05:00 16 Mechanical Ventilator 100 06/27/20 05:00 16 111/49 Mechanical Ventilator 100 06/27/20 04:00 Mechanical Ventilator Mechanical Ventilator 06/27/20 04:00 77 06/27/20 04:00 17 Mechanical Ventilator 100 06/27/20 04:00 17 115/47 Mechanical Ventilator 100 06/27/20 04:00 100 06/27/20 04:00 97.5 77 17 115/47 (69) 99 06/27/20 03:21 77 16 100 06/27/20 03:00 77 16 114/48 (70) 98 06/27/20 03:00 16 Mechanical Ventilator 100 06/27/20 03:00 16 114/48 Mechanical Ventilator 100 06/27/20 02:00 16 Mechanical Ventilator 100 06/27/20 02:00 16 110/47 Mechanical Ventilator 100 06/27/20 02:00 75 16 110/47 (68) 97 06/27/20 01:15 76 16 100 06/27/20 01:00 74 16 109/43 (65) 98 06/27/20 01:00 16 Mechanical Ventilator 100 06/27/20 01:00 16 109/43 Mechanical Ventilator 100 06/27/20 00:00 75 06/27/20 00:00 97.6 75 16 106/47 (66) 97 06/27/20 00:00 16 Mechanical Ventilator 100 06/27/20 00:00 16 106/47 Mechanical Ventilator 100 06/27/20 00:00 Mechanical Ventilator Mechanical Ventilator 06/27/20 00:00 100 06/26/20 23:31 77 16 100 06/26/20 23:00 16 Mechanical Ventilator 100 06/26/20 23:00 16 114/45 Mechanical Ventilator 100 06/26/20 23:00 77 16 114/45 (68) 97 06/26/20 22:00 74 16 109/45 (66) 99 06/26/20 22:00 16 Mechanical Ventilator 100 06/26/20 22:00 16 109/45 Mechanical Ventilator 100 Intake and Output 06/26/20 06/27/20 19:00 07:00 Intake Total 1166.663 ml 780 ml Output Total 779 ml 770 ml Balance 387.663 ml 10 ml Intake Free Water 90 ml IV Total 1076.663 ml 780 ml Output Urine Total 740 ml 760 ml Chest Tube Drainage Total 39 ml 10 ml Laboratory Tests 06/26/20 23:05: POC Whole Blood Glucose 139H 06/27/20 11:42: POC Whole Blood Glucose [Pending] Height (Feet): 5 Height (Inches): 2.00 Weight (Pounds): 138 Assessment/Plan Problem List: (1) Elevated d-dimer ICD Codes: R79.89 - Other specified abnormal findings of blood chemistry SNOMED: 517640569 (2) Renal insufficiency ICD Codes: N28.9 - Disorder of kidney and ureter, unspecified SNOMED: 138244166, 418471565 (3) PNA (pneumonia) ICD Codes: J18.9 - Pneumonia, unspecified organism SNOMED: 379223111 (4) Dehydration ICD Codes: E86.0 - Dehydration SNOMED: 07366792 (5) LEONARDO (acute kidney injury) ICD Codes: N17.9 - Acute kidney failure, unspecified SNOMED: 6406703, 61634351 (6) Hypoxia ICD Codes: R09.02 - Hypoxemia; J12.82 - Pneumonia due to coronavirus disease 2019 SNOMED: 412510956 (7) Pneumonia due to COVID-19 virus ICD Codes: U07.1 - COVID-19; J12.82 - Pneumonia due to coronavirus disease 2019 SNOMED: 000927055157941519 (8) DMII (diabetes mellitus, type 2) ICD Codes: E11.9 - Type 2 diabetes mellitus without complications SNOMED: 91075604 Status: progressing Assessment/Plan: covid + resp insuff intubated septic poor prognosis no change afebrile Vidya Clayton MD Jun 27, 2020 21:37
--- NOTE | 2020-06-27 21:44 | NUR ---
NURSE NOTES: O2 SATURATION OVER 98% NOTED ON FIO2 80%, KEPT RASS SCORE -2, WILL CONTINUE TO MONITOR.
--- NOTE | 2020-06-27 22:31 | Psychiatric Progress Note ---
Psychiatry Progress Note Psychiatry Progress Note Medications Current Medications Medications (Trade) Dose Ordered Sig/Maya Route PRN Reason Start Time Stop Time Status Last Admin Dose Admin Acetaminophen (Tylenol) 500 mg Q4H PRN ORAL Mild Pain (Pain Scale 1-3) 06/18/20 00:15 07/18/20 00:14 06/24/20 17:51 Acetaminophen (Tylenol) 500 mg Q4H PRN ORAL Temp >100.5 06/18/20 00:15 07/18/20 00:14 06/25/20 04:05 Carvedilol (Coreg) 6.25 mg EVERY 12 HOURS ORAL 06/22/20 21:00 07/22/20 20:59 06/27/20 09:18 Ceftriaxone Sodium 1 gm/ Dextrose 55 ml @ 110 mls/hr Q24H IVPB 06/23/20 11:00 06/30/20 10:59 06/27/20 11:32 Dextrose (Dextrose 50%) 25 ml Q30M PRN IV Hypoglycemia 06/18/20 14:15 09/16/20 14:14 Dextrose (Dextrose 50%) 50 ml Q30M PRN IV Hypoglycemia 06/18/20 14:15 09/16/20 14:14 Docusate Sodium (Colace) 100 mg THREE TIMES A DAY ORAL 06/18/20 13:00 07/18/20 12:59 06/27/20 17:38 Enoxaparin Sodium (Lovenox) 40 mg DAILY SUBQ 06/21/20 09:00 09/19/20 08:59 06/26/20 09:40 Fentanyl Citrate 1000 mcg/Sodium Chloride 100 ml @ 1 mls/hr Q24H IV 06/27/20 13:00 06/29/20 12:59 06/27/20 14:46 Haloperidol Lactate (Haldol) 10 mg Q6H PRN IM Agitation 06/23/20 11:30 08/07/20 11:29 06/23/20 11:34 Insulin Aspart (NovoLOG) while NPO Q6HR SUBQ 06/18/20 18:00 09/16/20 17:59 06/27/20 18:14 Midazolam HCl 100 mg/Sodium Chloride 200 ml @ 0 mls/hr Q24H PRN IV Agitation 06/25/20 14:41 06/28/20 02:59 06/27/20 07:04 Midazolam HCl 100 mg/Sodium Chloride 200 ml @ 2 mls/hr Q24H PRN IV sedation 06/28/20 03:00 06/30/20 02:59 Pantoprazole (Protonix) 40 mg EVERY 12 HOURS IVP 06/18/20 21:00 07/18/20 20:59 06/27/20 20:36 Sodium Chloride 1,000 ml @ 50 mls/hr Q20H IV 06/26/20 08:00 07/26/20 07:59 06/27/20 04:42 Neurological/Psychiatric: Denies: no symptoms, anxiety, depressed, emotional problems, headache, numbness, paresthesia, pre-existing deficit, seizure, tingling, tremors, weakness, other Allergies: Coded Allergies: No Known Allergies (Unverified , 06/17/20) Objective Data Height (Feet): 5 Height (Inches): 2.00 Weight (Pounds): 138 General Appearance: no apparent distress, lethargic, confused, agitated Additional Comments: Gilliam I Acute toxic encephalopathy. Gilliam II Deferred. Gilliam III As above, respiratory failure. Gilliam IV Low. Gilliam V 10. PLAN: 1. cont the restraints. 2. Haldol IM p.r.n. when needed for weaning off in addition to Midazolam that was ordered by the die inspector. Assessment/Plan Status: Suellen Allen MD Jun 27, 2020 22:31
--- NOTE | 2020-06-27 23:40 | NUR ---
NURSE NOTES: NOTED BS 128MG/DL, PATIENT SEDATED WITH FENTANYL 50MCG/HR AND VERSED 5MG/HR, NO ACUTE DISTRESS NOTED AT THIS TIME.
[2020-06-28] VITALS (63 sets, daily range): BP systolic 119–181; BP diastolic 57–119
--- NOTE | 2020-06-28 01:50 | NUR ---
NURSE NOTES: BILATERAL CHEST TUBE INTACT, NO LEAKING STATUS,
[2020-06-28] MEDS: Midazolam HCl 50mg/10ml vial 100 MG in NS 180 ML IV PRN ×2 (03:04→23:07)
--- NOTE | 2020-06-28 03:35 | NUR ---
NURSE NOTES: F/C INTACT AND PATENT, MALCOLM COLOR URINE OUTED, WILL CONTINUE TO MONITOR.
--- NOTE | 2020-06-28 05:20 | NUR ---
NURSE NOTES: MORNING CARE AND ORAL CARE WAS DONE, NO BM STATUS.
[2020-06-28] MEDS: NovoLOG Insulin Flexpen SUBQ SCH ×4 (05:49→23:41)
--- NOTE | 2020-06-28 06:43 | Hematology/Onc Progress Note ---
Assessment/Plan Assessment/Plan Assessment and recs # Leukocytosis with Pneumonia due to COVID-19 virus -> wbc trend 15-->11-->10->17-->18->11 --> ABX as per id ctx --> imaging does show pna --> anticoag recommended --> on remdesivir # Anemia of chronic disease --> hgb 12->10-->9 -> transfuse prn --> r/o hemolysis # Elevated ddimer due to covid --> duplex legs -> LOVENOX sq # Thrombocytopenia due to Covid19++ with Hypoxia -> steriods, abx per id --> plt 117-->121 # Renal insufficiency -> per renal care # Sepsis due to above --> abx, fluid resuscitation # Dvt ppx lovenox sq Appreciate consultation and mehran RN Subjective Allergies: Coded Allergies: No Known Allergies (Unverified , 06/17/20) All Systems: reviewed and negative except above Subjective 06/19 sleeping, comfortable, on bipap, meds have been reviewed 06/21 on bipap, labs have been reviewed, no major events 06/22 bipap labs reviewed, meds noted, no bleeding 06/23 bipap labs noted, no bleeding, meds reviewed, mehran rn 06/24 on vent, labs reviewed, meds reviewed 06/25 on vent, with ctx as abx, labs noted, no bleeding 06/26 vent, with ogt, with helms, labs noted, no bleeding plts lower 06/28 labs are pending, on vent, helms intract, no new changes Objective Objective Current Medications Medications (Trade) Dose Ordered Sig/Maya Route PRN Reason Start Time Stop Time Status Last Admin Dose Admin Acetaminophen (Tylenol) 500 mg Q4H PRN ORAL Mild Pain (Pain Scale 1-3) 06/18/20 00:15 07/18/20 00:14 06/24/20 17:51 Acetaminophen (Tylenol) 500 mg Q4H PRN ORAL Temp >100.5 06/18/20 00:15 07/18/20 00:14 06/25/20 04:05 Carvedilol (Coreg) 6.25 mg EVERY 12 HOURS ORAL 06/22/20 21:00 07/22/20 20:59 06/27/20 09:18 Ceftriaxone Sodium 1 gm/ Dextrose 55 ml @ 110 mls/hr Q24H IVPB 06/23/20 11:00 06/30/20 10:59 06/27/20 11:32 Dextrose (Dextrose 50%) 25 ml Q30M PRN IV Hypoglycemia 06/18/20 14:15 09/16/20 14:14 Dextrose (Dextrose 50%) 50 ml Q30M PRN IV Hypoglycemia 06/18/20 14:15 09/16/20 14:14 Docusate Sodium (Colace) 100 mg THREE TIMES A DAY ORAL 06/18/20 13:00 07/18/20 12:59 06/27/20 17:38 Enoxaparin Sodium (Lovenox) 40 mg DAILY SUBQ 06/21/20 09:00 09/19/20 08:59 06/26/20 09:40 Fentanyl Citrate 1000 mcg/Sodium Chloride 100 ml @ 1 mls/hr Q24H IV 06/27/20 13:00 06/29/20 12:59 06/27/20 14:46 Haloperidol Lactate (Haldol) 10 mg Q6H PRN IM Agitation 06/23/20 11:30 08/07/20 11:29 06/23/20 11:34 Insulin Aspart (NovoLOG) while NPO Q6HR SUBQ 06/18/20 18:00 09/16/20 17:59 06/27/20 18:14 Midazolam HCl 100 mg/Sodium Chloride 200 ml @ 2 mls/hr Q24H PRN IV sedation 06/28/20 03:00 06/30/20 02:59 06/28/20 03:04 Pantoprazole (Protonix) 40 mg EVERY 12 HOURS IVP 06/18/20 21:00 07/18/20 20:59 06/27/20 20:36 Sodium Chloride 1,000 ml @ 50 mls/hr Q20H IV 06/26/20 08:00 07/26/20 07:59 06/27/20 23:29 Last 24 Hour Vital Signs Date Time Temp Pulse Resp B/P (MAP) Pulse Ox O2 Delivery O2 Flow Rate FiO2 06/28/20 05:00 22 Mechanical Ventilator 80 06/28/20 05:00 22 140/60 Mechanical Ventilator 80 06/28/20 05:00 78 22 140/60 (86) 94 06/28/20 04:00 Mechanical Ventilator Mechanical Ventilator 06/28/20 04:00 80 06/28/20 04:00 23 Mechanical Ventilator 80 06/28/20 04:00 23 140/62 Mechanical Ventilator 80 06/28/20 04:00 98.6 76 23 140/62 (88) 92 06/28/20 04:00 76 06/28/20 03:04 26 Mechanical Ventilator 80 06/28/20 03:00 79 24 145/64 (91) 91 06/28/20 03:00 24 145/64 Mechanical Ventilator 80 06/28/20 03:00 24 Mechanical Ventilator 80 06/28/20 02:00 78 21 144/59 (87) 87 06/28/20 02:00 21 144/59 Mechanical Ventilator 80 06/28/20 02:00 21 Mechanical Ventilator 80 06/28/20 01:21 82 22 80 06/28/20 01:00 79 22 137/57 (83) 93 06/28/20 01:00 22 137/57 Mechanical Ventilator 80 06/28/20 01:00 22 Mechanical Ventilator 80 06/28/20 00:00 79 06/28/20 00:00 80 06/28/20 00:00 22 140/58 Mechanical Ventilator 80 06/28/20 00:00 22 Mechanical Ventilator 80 06/28/20 00:00 98.9 79 22 140/58 (85) 100 06/28/20 00:00 Mechanical Ventilator Mechanical Ventilator 06/27/20 23:00 79 22 140/54 (82) 100 06/27/20 23:00 22 140/54 Mechanical Ventilator 80 06/27/20 23:00 22 Mechanical Ventilator 80 06/27/20 22:00 21 139/59 Mechanical Ventilator 80 06/27/20 22:00 21 Mechanical Ventilator 80 06/27/20 22:00 83 21 139/59 (85) 100 06/27/20 21:00 22 141/54 Mechanical Ventilator 80 06/27/20 21:00 22 Mechanical Ventilator 80 06/27/20 21:00 82 141/54 06/27/20 21:00 82 22 141/54 (83) 100 06/27/20 20:00 Mechanical Ventilator Mechanical Ventilator 06/27/20 20:00 80 06/27/20 20:00 21 136/51 Mechanical Ventilator 80 06/27/20 20:00 21 Mechanical Ventilator 80 06/27/20 20:00 98.6 84 21 136/51 (79) 86 06/27/20 19:20 83 21 80 06/27/20 19:16 89 06/27/20 19:00 88 22 136/53 (80) 88 06/27/20 19:00 22 132/52 Mechanical Ventilator 80 06/27/20 19:00 22 Mechanical Ventilator 80 06/27/20 18:00 88 21 172/57 (95) 87 06/27/20 18:00 23 160/58 Mechanical Ventilator 80 06/27/20 18:00 23 Mechanical Ventilator 80 06/27/20 17:20 78 21 80 06/27/20 17:00 83 22 128/51 (76) 90 06/27/20 17:00 21 129/45 Mechanical Ventilator 80 06/27/20 17:00 21 Mechanical Ventilator 80 06/27/20 16:00 Mechanical Ventilator Mechanical Ventilator 06/27/20 16:00 20 129/49 Mechanical Ventilator 80 06/27/20 16:00 22 Mechanical Ventilator 80 06/27/20 16:00 80 06/27/20 16:00 98.0 82 21 130/49 (76) 91 06/27/20 15:44 82 06/27/20 15:15 82 21 80 06/27/20 15:00 79 21 124/50 (74) 90 06/27/20 15:00 20 124/50 Mechanical Ventilator 80 06/27/20 15:00 20 124/50 Mechanical Ventilator 80 06/27/20 15:00 20 Mechanical Ventilator 80 06/27/20 15:00 20 Mechanical Ventilator 80 06/27/20 14:46 20 121/48 Mechanical Ventilator 80 06/27/20 14:00 78 21 122/46 (71) 91 06/27/20 14:00 21 Mechanical Ventilator 80 06/27/20 14:00 21 124/44 Mechanical Ventilator 80 06/27/20 13:20 77 21 80 06/27/20 13:00 79 19 122/48 (72) 92 06/27/20 13:00 19 Mechanical Ventilator 80 06/27/20 13:00 19 116/50 Mechanical Ventilator 80 06/27/20 12:46 Mechanical Ventilator Mechanical Ventilator 06/27/20 12:00 98.0 78 20 112/47 (68) 90 06/27/20 12:00 17 06/27/20 12:00 19 113/47 Endotracheal Tube 80 06/27/20 11:46 100 06/27/20 11:46 Mechanical Ventilator Mechanical Ventilator 06/27/20 11:26 77 06/27/20 11:20 75 17 80 06/27/20 11:00 76 17 110/49 (69) 97 06/27/20 11:00 17 80 06/27/20 11:00 17 110/49 Endotracheal Tube 80 06/27/20 10:00 80 17 115/46 (69) 96 06/27/20 10:00 17 Endotracheal Tube 80 06/27/20 10:00 17 115/46 Endotracheal Tube 80 06/27/20 09:30 83 17 90 06/27/20 09:18 83 119/47 06/27/20 09:00 17 Endotracheal Tube 80 06/27/20 09:00 17 119/46 Endotracheal Tube 80 06/27/20 09:00 81 16 119/46 (70) 100 06/27/20 08:00 Mechanical Ventilator Mechanical Ventilator 06/27/20 08:00 100 06/27/20 08:00 17 Endotracheal Tube 80 06/27/20 08:00 17 113/44 Endotracheal Tube 80 06/27/20 08:00 80 06/27/20 08:00 97.8 80 16 113/44 (67) 99 06/27/20 07:20 76 16 100 06/27/20 07:04 16 Mechanical Ventilator 100 06/27/20 07:00 16 Mechanical Ventilator 100 06/27/20 07:00 16 118/47 Mechanical Ventilator 100 06/27/20 07:00 80 16 118/47 (70) 99 06/27/20 06:00 17 Mechanical Ventilator 100 06/27/20 06:00 17 113/45 Mechanical Ventilator 100 06/27/20 06:00 78 17 113/45 (67) 98 06/27/20 05:08 81 16 100 06/27/20 05:00 80 16 111/49 (69) 99 06/27/20 05:00 16 Mechanical Ventilator 100 06/27/20 05:00 16 111/49 Mechanical Ventilator 100 06/27/20 04:00 Mechanical Ventilator Mechanical Ventilator 06/27/20 04:00 77 06/27/20 04:00 17 Mechanical Ventilator 100 06/27/20 04:00 17 115/47 Mechanical Ventilator 100 06/27/20 04:00 100 06/27/20 04:00 97.5 77 17 115/47 (69) 99 06/27/20 03:21 77 16 100 06/27/20 03:00 77 16 114/48 (70) 98 06/27/20 03:00 16 Mechanical Ventilator 100 06/27/20 03:00 16 114/48 Mechanical Ventilator 100 06/27/20 02:00 16 Mechanical Ventilator 100 06/27/20 02:00 16 110/47 Mechanical Ventilator 100 06/27/20 02:00 75 16 110/47 (68) 97 06/27/20 01:15 76 16 100 06/27/20 01:00 74 16 109/43 (65) 98 06/27/20 01:00 16 Mechanical Ventilator 100 06/27/20 01:00 16 109/43 Mechanical Ventilator 100 06/27/20 00:00 75 06/27/20 00:00 97.6 75 16 106/47 (66) 97 06/27/20 00:00 16 Mechanical Ventilator 100 06/27/20 00:00 16 106/47 Mechanical Ventilator 100 06/27/20 00:00 Mechanical Ventilator Mechanical Ventilator 06/27/20 00:00 100 06/26/20 23:31 77 16 100 06/26/20 23:00 16 Mechanical Ventilator 100 06/26/20 23:00 16 114/45 Mechanical Ventilator 100 06/26/20 23:00 77 16 114/45 (68) 97 06/26/20 22:00 74 16 109/45 (66) 99 06/26/20 22:00 16 Mechanical Ventilator 100 06/26/20 22:00 16 109/45 Mechanical Ventilator 100 06/26/20 21:00 16 Mechanical Ventilator 100 06/26/20 21:00 16 110/48 Mechanical Ventilator 100 06/26/20 21:00 74 111/44 06/26/20 21:00 78 16 110/48 (68) 99 06/26/20 20:45 77 16 118/49 (72) 96 06/26/20 20:31 77 16 100 06/26/20 20:30 76 16 117/51 (73) 86 06/26/20 20:15 75 16 115/54 (74) 88 06/26/20 20:00 Mechanical Ventilator Mechanical Ventilator 06/26/20 20:00 16 Mechanical Ventilator 100 06/26/20 20:00 16 113/51 Mechanical Ventilator 100 06/26/20 20:00 98.0 75 16 113/51 (71) 85 06/26/20 20:00 100 06/26/20 19:45 75 06/26/20 19:30 77 17 115/53 (73) 89 06/26/20 19:07 74 16 100 06/26/20 19:00 74 20 118/52 (74) 88 06/26/20 18:45 77 16 118/52 (74) 83 06/26/20 18:30 75 16 113/52 (72) 84 06/26/20 18:15 75 17 117/50 (72) 90 06/26/20 18:00 72 22 107/54 (71) 89 06/26/20 17:45 77 17 116/55 (75) 86 06/26/20 17:30 74 17 112/54 (73) 87 06/26/20 17:15 76 17 117/54 (75) 87 06/26/20 17:00 76 17 116/54 (74) 87 06/26/20 16:45 77 18 117/54 (75) 87 06/26/20 16:30 77 18 116/54 (74) 94 06/26/20 16:15 79 17 119/60 (79) 91 06/26/20 16:01 97.6 77 22 119/58 (78) 85 06/26/20 16:00 Endotracheal Tube Endotracheal Tube 06/26/20 16:00 73 06/26/20 16:00 100 06/26/20 15:45 74 17 101/49 (66) 90 06/26/20 15:30 75 16 104/51 (68) 92 06/26/20 15:30 75 17 100 06/26/20 15:15 77 18 109/55 (73) 91 06/26/20 15:00 74 16 109/51 (70) 91 06/26/20 14:45 75 23 105/53 (70) 91 06/26/20 14:30 74 30 104/50 (68) 91 06/26/20 14:15 74 29 104/51 (68) 91 06/26/20 14:00 74 27 102/51 (68) 91 06/26/20 13:45 74 20 103/51 (68) 91 06/26/20 13:30 74 18 106/50 (68) 92 06/26/20 13:15 73 28 104/54 (71) 91 06/26/20 13:00 72 32 101/52 (68) 91 06/26/20 12:45 72 30 100/50 (67) 91 06/26/20 12:30 71 30 103/54 (70) 92 06/26/20 12:15 71 32 100/50 (67) 92 06/26/20 12:00 97.5 69 25 102/50 (67) 92 06/26/20 12:00 Endotracheal Tube Endotracheal Tube 06/26/20 12:00 100 06/26/20 12:00 74 06/26/20 11:45 70 28 107/53 (71) 91 06/26/20 11:30 70 33 100/54 (69) 90 06/26/20 11:25 24 Mechanical Ventilator 100 06/26/20 11:25 74 16 100 06/26/20 11:15 69 33 104/57 (73) 90 06/26/20 11:00 70 23 98/53 (68) 90 06/26/20 10:45 71 32 101/51 (68) 90 06/26/20 10:45 17 115/46 Mechanical Ventilator 100.0 100 06/26/20 10:30 73 23 106/53 (70) 90 06/26/20 10:15 73 26 110/54 (72) 88 06/26/20 10:00 75 21 109/51 (70) 88 06/26/20 09:45 73 19 115/53 (73) 92 06/26/20 09:40 74 115/62 06/26/20 09:30 72 18 111/53 (72) 91 06/26/20 09:15 72 18 115/51 (72) 91 06/26/20 09:00 71 18 107/49 (68) 91 06/26/20 08:45 73 19 112/52 (72) 92 06/26/20 08:30 74 19 115/51 (72) 92 06/26/20 08:15 74 19 121/53 (75) 92 06/26/20 08:00 100 06/26/20 08:00 Endotracheal Tube Endotracheal Tube 06/26/20 08:00 75 06/26/20 07:45 74 19 118/55 (76) 90 06/26/20 07:30 72 25 100 06/26/20 07:30 75 20 116/48 (70) 90 06/26/20 07:15 76 19 110/49 (69) 91 06/26/20 07:00 77 19 110/55 (73) 91 06/26/20 07:00 20 Mechanical Ventilator 100 06/26/20 07:00 20 110/49 Mechanical Ventilator 100 Intake and Output 06/27/20 06/28/20 19:00 07:00 Intake Total 834.00 ml 650 ml Output Total 684 ml 460 ml Balance 150.00 ml 190 ml IV Total 834.00 ml 650 ml Output Urine Total 616 ml 460 ml Chest Tube Drainage Total 68 ml Labs Test 06/25/20 08:13 06/25/20 12:02 06/25/20 18:12 06/26/20 00:55 Arterial Blood pH 7.353 (7.350-7.450) Arterial Blood Partial Pressure CO2 46.3 mmHg (35.0-45.0) Arterial Blood Partial Pressure O2 40.5 mmHg (75.0-100.0) Arterial Blood HCO3 25.2 mmol/L (22.0-26.0) Arterial Blood Oxygen Saturation 74.0 % (95-100) Arterial Blood Base Excess -0.7 (-2-2) Amrit Test Positive POC Whole Blood Glucose 241 MG/DL (74-106) 270 MG/DL (74-106) Test 06/26/20 03:00 06/26/20 06:09 06/26/20 12:50 06/26/20 18:16 White Blood Count 11.3 K/UL (4.8-10.8) Red Blood Count 3.24 M/UL (4.20-5.40) Hemoglobin 9.7 G/DL (12.0-16.0) Hematocrit 30.1 % (37.0-47.0) Mean Corpuscular Volume 93 FL (80-99) Mean Corpuscular Hemoglobin 30.1 PG (27.0-31.0) Mean Corpuscular Hemoglobin Concent 32.4 G/DL (32.0-36.0) Red Cell Distribution Width 12.6 % (11.6-14.8) Platelet Count 121 K/UL (150-450) Mean Platelet Volume 8.8 FL (6.5-10.1) Neutrophils (%) (Auto) % (45.0-75.0) Lymphocytes (%) (Auto) % (20.0-45.0) Monocytes (%) (Auto) % (1.0-10.0) Eosinophils (%) (Auto) % (0.0-3.0) Basophils (%) (Auto) % (0.0-2.0) Differential Total Cells Counted 100 Neutrophils % (Manual) 97 % (45-75) Lymphocytes % (Manual) 1 % (20-45) Monocytes % (Manual) 2 % (1-10) Eosinophils % (Manual) 0 % (0-3) Basophils % (Manual) 0 % (0-2) Band Neutrophils 0 % (0-8) Platelet Estimate Decreased Platelet Morphology Normal Hypochromasia 1+ Sodium Level 133 MMOL/L (136-145) Potassium Level 4.6 MMOL/L (3.5-5.1) Chloride Level 104 MMOL/L (98-107) Carbon Dioxide Level 25 MMOL/L (21-32) Anion Gap 4 mmol/L (5-15) Blood Urea Nitrogen 20 mg/dL (7-18) Creatinine 0.7 MG/DL (0.55-1.30) Estimat Glomerular Filtration Rate > 60 mL/min (>60) Glucose Level 241 MG/DL (74-106) Uric Acid 2.0 MG/DL (2.6-7.2) Calcium Level 7.1 MG/DL (8.5-10.1) Phosphorus Level 3.0 MG/DL (2.5-4.9) Magnesium Level 2.0 MG/DL (1.8-2.4) Total Bilirubin 0.6 MG/DL (0.2-1.0) Aspartate Amino Transf (AST/SGOT) 38 U/L (15-37) Alanine Aminotransferase (ALT/SGPT) 39 U/L (12-78) Alkaline Phosphatase 71 U/L (46-116) C-Reactive Protein, Quantitative 17.9 mg/dL (0.00-0.90) Pro-B-Type Natriuretic Peptide 122 pg/mL (0-125) Total Protein 5.5 G/DL (6.4-8.2) Albumin 2.0 G/DL (3.4-5.0) Globulin 3.5 g/dL Albumin/Globulin Ratio 0.6 (1.0-2.7) POC Whole Blood Glucose 262 MG/DL (74-106) Test 06/26/20 23:05 06/27/20 11:42 06/27/20 23:22 06/28/20 04:40 POC Whole Blood Glucose 139 MG/DL (74-106) 128 MG/DL (74-106) Height (Feet): 5 Height (Inches): 2.00 Weight (Pounds): 138 Objective Physical Exam Vitals: reviewed, abnormal - Interpreted as low by me General: GCS 15 - Sometimes slightly confused, non-toxic, mild distress Head: normocephalic, moist mucus membranes Neck: supple Respiratory: no retraction, no accessory muscle use, respiratory distress - Minimal with tachypnea, crackles Cardiovascular: regular rate, rhythm, no edema Gastrointestinal: normal inspection, non tender, soft Genitourinary: no CVA tenderness Musculoskeletal: back normal Neurologic: alert, oriented x3, grossly normal Psychiatric: mood/affect normal - sometimes confused Skin: no rash, warm/dry Jj Swann MD Jun 28, 2020 06:43
[2020-06-28 07:04] LABS: ALANINE AMINOTRANSFERASE 46 U/L (12-78); ALBUMIN 1.9 G/DL (3.4-5.0); ALBUMIN/GLOBULIN RATIO 0.5 (1.0-2.7); ALKALINE PHOSPHATASE 73 U/L (46-116); ANION GAP 2 mmol/L (5-15); ASPARTATE AMINO TRANSFERASE 50 U/L (15-37); BILIRUBIN,TOTAL 0.5 MG/DL (0.2-1.0); BLOOD UREA NITROGEN 26 mg/dL (7-18); CALCIUM 7.9 MG/DL (8.5-10.1); CARBON DIOXIDE 31 MMOL/L (21-32); CHLORIDE 112 MMOL/L (98-107); CREATININE 0.5 MG/DL (0.55-1.30); PHOSPHORUS 2.4 MG/DL (2.5-4.9); POTASSIUM 4.8 MMOL/L (3.5-5.1); SODIUM 145 MMOL/L (136-145)
--- NOTE | 2020-06-28 07:15 | NUR ---
RESPIRATORY NOTE: PT received on AC/VC: 16, 400 80%, +8. Alarms are on and audible. Vent circuit is secure and out of the way. Airway is secure and patent. No s/s of respiratory distress noted at this time. Will continue to closely monitor.
--- NOTE | 2020-06-28 07:21 | NUR ---
NURSE HAND-OFF REPORT: Latest Vital Signs: Temperature 98.6 , Pulse 79 , B/P 143 /63 , Respiratory Rate 21 , O2 SAT 91 , Mechanical Ventilator, O2 Flow Rate . Vital Sign Comment: EKG Rhythm: Sinus Rhythm Rhythm change?: N MD Notified?: N - MD Response: Latest Carney Fall Score: 50 Fall Risk: High Risk Safety Measures: Call light Within Reach, Bed Alarm Zone 2, Side Rails Side Rails x3, Bed position Low and Locked. Fall Precautions: Yellow Socks Door Sign Patient Fall Education Report given to NORMAN BRASHER.
[2020-06-28] MEDS: Docusate 100mg cap ORAL SCH (09:00)
--- NOTE | 2020-06-28 10:03 | Nephrology Progress Note ---
Assessment/Plan Problem List: (1) LEONARDO (acute kidney injury) (2) Dehydration (3) DMII (diabetes mellitus, type 2) (4) Pneumonia due to COVID-19 virus (5) Hypoxia Assessment 70-year-old female presents with COVID-19 pneumonia and hypoxia On admission has BUN of 77 and creatinine of 1.6. Renal failure most likely prerenal and dehydration with possible underlying chronic kidney disease Patient has elevated inflammatory markers Hypoalbuminemia Electrolyte abnormalities Hyperglycemia Plan June 28: Labs reviewed. Abnormal electrolytes addressed. Patient remains full code. Continue per consultants. June 27: No chemistry panel done today. Remains full code. Medication list reviewed. Continue per consultants. Will monitor electrolytes and renal panel in a.m. June 26: Status quo. Remains full code. Labs reviewed. Main IV changed to normal saline 50 cc an hour. Continue per consultants and pulmonary. June 25: Remains intubated. Has bilateral chest tube. Full code. Labs reviewed. Abnormal electrolytes addressed. Albumin bolus given. Continue to monitor renal parameters. Poor prognosis. June 24: Patient in ICU. Intubated. Has bilateral chest tube. Labs reviewe d. Renal parameters stable. Low phosphorus addressed. Continue per consultants. Full code. Poor prognosis. June 23: Patient in ICU. Intubated. Due for insertion of a chest tube. Has pneumothorax. Renal parameters are stable. Serum sodium rising. Will adjust IV fluid. Continue per consultants. Patient full code. Prognosis poor. June 22: Labs reviewed. Remains on BiPAP which is not changed to high flow oxygen due to pneumothorax found on chest x-ray. Serum sodium 155. Continues on D5W. Electrolytes within normal limits. Check 2D echocardiogram. Coreg for blood pressure and heart rate. June 21: Status quo. On BiPAP. Full code. Serum sodium 153. Continue D5W. Continue to monitor electrolytes. Continue per consultants. June 20: Patient full code. On BiPAP. Labs reviewed. Serum sodium rising. Will increase D5W to 75 cc an hour. Continue to monitor electrolytes. June 19: IV changed to D5W. Monitor blood sugar. Monitor electrolytes. Medication list reviewed. Patient is being treated for COVID-19 pneumonia. Patient is full code. Previously Pulmonary support IV antibiotics Slow hydration Avoid nephrotoxic Monitor renal parameters Per orders Subjective ROS Limited/Unobtainable: Yes Objective Objective Last 24 Hour Vital Signs Date Time Temp Pulse Resp B/P (MAP) Pulse Ox O2 Delivery O2 Flow Rate FiO2 06/28/20 07:00 79 21 143/63 (89) 91 06/28/20 07:00 21 Mechanical Ventilator 80 06/28/20 07:00 21 143/63 Mechanical Ventilator 80 06/28/20 06:00 21 Mechanical Ventilator 80 06/28/20 06:00 21 149/63 Mechanical Ventilator 80 06/28/20 06:00 77 21 149/63 (91) 92 06/28/20 05:00 22 Mechanical Ventilator 80 06/28/20 05:00 22 140/60 Mechanical Ventilator 80 06/28/20 05:00 78 22 140/60 (86) 94 06/28/20 04:00 Mechanical Ventilator Mechanical Ventilator 06/28/20 04:00 80 06/28/20 04:00 23 Mechanical Ventilator 80 06/28/20 04:00 23 140/62 Mechanical Ventilator 80 06/28/20 04:00 98.6 76 23 140/62 (88) 92 06/28/20 04:00 76 06/28/20 03:04 26 Mechanical Ventilator 80 06/28/20 03:00 79 24 145/64 (91) 91 06/28/20 03:00 24 145/64 Mechanical Ventilator 80 06/28/20 03:00 24 Mechanical Ventilator 80 06/28/20 02:00 78 21 144/59 (87) 87 06/28/20 02:00 21 144/59 Mechanical Ventilator 80 06/28/20 02:00 21 Mechanical Ventilator 80 06/28/20 01:21 82 22 80 06/28/20 01:00 79 22 137/57 (83) 93 06/28/20 01:00 22 137/57 Mechanical Ventilator 80 06/28/20 01:00 22 Mechanical Ventilator 80 06/28/20 00:00 79 06/28/20 00:00 80 06/28/20 00:00 22 140/58 Mechanical Ventilator 80 06/28/20 00:00 22 Mechanical Ventilator 80 06/28/20 00:00 98.9 79 22 140/58 (85) 100 06/28/20 00:00 Mechanical Ventilator Mechanical Ventilator 06/27/20 23:00 79 22 140/54 (82) 100 06/27/20 23:00 22 140/54 Mechanical Ventilator 80 06/27/20 23:00 22 Mechanical Ventilator 80 06/27/20 22:00 21 139/59 Mechanical Ventilator 80 06/27/20 22:00 21 Mechanical Ventilator 80 06/27/20 22:00 83 21 139/59 (85) 100 06/27/20 21:00 22 141/54 Mechanical Ventilator 80 06/27/20 21:00 22 Mechanical Ventilator 80 06/27/20 21:00 82 141/54 06/27/20 21:00 82 22 141/54 (83) 100 06/27/20 20:00 Mechanical Ventilator Mechanical Ventilator 06/27/20 20:00 80 06/27/20 20:00 21 136/51 Mechanical Ventilator 80 06/27/20 20:00 21 Mechanical Ventilator 80 06/27/20 20:00 98.6 84 21 136/51 (79) 86 06/27/20 19:20 83 21 80 06/27/20 19:16 89 06/27/20 19:00 88 22 136/53 (80) 88 06/27/20 19:00 22 132/52 Mechanical Ventilator 80 06/27/20 19:00 22 Mechanical Ventilator 80 06/27/20 18:00 88 21 172/57 (95) 87 06/27/20 18:00 23 160/58 Mechanical Ventilator 80 06/27/20 18:00 23 Mechanical Ventilator 80 06/27/20 17:20 78 21 80 06/27/20 17:00 83 22 128/51 (76) 90 06/27/20 17:00 21 129/45 Mechanical Ventilator 80 06/27/20 17:00 21 Mechanical Ventilator 80 06/27/20 16:00 Mechanical Ventilator Mechanical Ventilator 06/27/20 16:00 20 129/49 Mechanical Ventilator 80 06/27/20 16:00 22 Mechanical Ventilator 80 06/27/20 16:00 80 06/27/20 16:00 98.0 82 21 130/49 (76) 91 06/27/20 15:44 82 06/27/20 15:15 82 21 80 06/27/20 15:00 79 21 124/50 (74) 90 06/27/20 15:00 20 124/50 Mechanical Ventilator 80 06/27/20 15:00 20 124/50 Mechanical Ventilator 80 06/27/20 15:00 20 Mechanical Ventilator 80 06/27/20 15:00 20 Mechanical Ventilator 80 06/27/20 14:46 20 121/48 Mechanical Ventilator 80 06/27/20 14:00 78 21 122/46 (71) 91 06/27/20 14:00 21 Mechanical Ventilator 80 06/27/20 14:00 21 124/44 Mechanical Ventilator 80 06/27/20 13:20 77 21 80 06/27/20 13:00 79 19 122/48 (72) 92 06/27/20 13:00 19 Mechanical Ventilator 80 06/27/20 13:00 19 116/50 Mechanical Ventilator 80 06/27/20 12:46 Mechanical Ventilator Mechanical Ventilator 06/27/20 12:00 98.0 78 20 112/47 (68) 90 06/27/20 12:00 17 06/27/20 12:00 19 113/47 Endotracheal Tube 80 06/27/20 11:46 100 06/27/20 11:46 Mechanical Ventilator Mechanical Ventilator 06/27/20 11:26 77 06/27/20 11:20 75 17 80 06/27/20 11:00 76 17 110/49 (69) 97 06/27/20 11:00 17 80 06/27/20 11:00 17 110/49 Endotracheal Tube 80 Intake and Output 06/27/20 06/28/20 19:00 07:00 Intake Total 834.00 ml 780 ml Output Total 684 ml 750 ml Balance 150.00 ml 30 ml IV Total 834.00 ml 780 ml Output Urine Total 616 ml 570 ml Chest Tube Drainage Total 68 ml 180 ml Current Medications Medications (Trade) Dose Ordered Sig/Maya Route PRN Reason Start Time Stop Time Status Last Admin Dose Admin Acetaminophen (Tylenol) 500 mg Q4H PRN ORAL Mild Pain (Pain Scale 1-3) 06/18/20 00:15 07/18/20 00:14 06/24/20 17:51 Acetaminophen (Tylenol) 500 mg Q4H PRN ORAL Temp >100.5 06/18/20 00:15 07/18/20 00:14 06/25/20 04:05 Carvedilol (Coreg) 6.25 mg EVERY 12 HOURS ORAL 06/22/20 21:00 07/22/20 20:59 06/28/20 10:29 Ceftriaxone Sodium 1 gm/ Dextrose 55 ml @ 110 mls/hr Q24H IVPB 06/23/20 11:00 06/30/20 10:59 06/28/20 10:30 Dextrose (Dextrose 50%) 25 ml Q30M PRN IV Hypoglycemia 06/18/20 14:15 09/16/20 14:14 Dextrose (Dextrose 50%) 50 ml Q30M PRN IV Hypoglycemia 06/18/20 14:15 09/16/20 14:14 Docusate Sodium (Colace) 100 mg THREE TIMES A DAY ORAL 06/18/20 13:00 07/18/20 12:59 06/27/20 17:38 Enoxaparin Sodium (Lovenox) 40 mg DAILY SUBQ 06/21/20 09:00 09/19/20 08:59 06/28/20 10:31 Fentanyl Citrate 1000 mcg/Sodium Chloride 100 ml @ 1 mls/hr Q24H IV 06/27/20 13:00 06/29/20 12:59 06/27/20 14:46 Haloperidol Lactate (Haldol) 10 mg Q6H PRN IM Agitation 06/23/20 11:30 08/07/20 11:29 06/23/20 11:34 Insulin Aspart (NovoLOG) while NPO Q6HR SUBQ 06/18/20 18:00 09/16/20 17:59 06/27/20 18:14 Midazolam HCl 100 mg/Sodium Chloride 200 ml @ 2 mls/hr Q24H PRN IV sedation 06/28/20 03:00 06/30/20 02:59 06/28/20 03:04 Pantoprazole (Protonix) 40 mg EVERY 12 HOURS IVP 06/18/20 21:00 07/18/20 20:59 06/28/20 10:29 Sodium Chloride 1,000 ml @ 50 mls/hr Q20H IV 06/26/20 08:00 07/26/20 07:59 06/27/20 23:29 Laboratory Tests 06/27/20 11:42: POC Whole Blood Glucose [Pending] 06/27/20 23:22: POC Whole Blood Glucose 128H 06/28/20 04:40: Sodium Level 145, Potassium Level 4.8, Chloride Level 112H, Carbon Dioxide Level 31, Anion Gap 2L, Blood Urea Nitrogen 26H, Creatinine 0.5L, Estimat Glomerular Filtration Rate > 60, Glucose Level 106, Uric Acid 1.9L, Calcium Level 7.9L, Phosphorus Level 2.4L, Magnesium Level 2.4, Total Bilirubin 0.5, Aspartate Amino Transf (AST/SGOT) 50H, Alanine Aminotransferase (ALT/SGPT) 46, Alkaline Phosphatase 73, Total Protein 5.6L, Albumin 1.9L, Globulin 3.7, Albumin/Globulin Ratio 0.5L Height (Feet): 5 Height (Inches): 2.00 Weight (Pounds): 138 General Appearance: no apparent distress EENT: other - Intubated on ventilator Cardiovascular: normal rate Respiratory/Chest: decreased breath sounds, other - bilaterally chest. Abdomen: distended Raza De Jesus MD Jun 28, 2020 10:02
[2020-06-28] MEDS: Pantoprazole Inj IVP SCH ×2 (10:29→20:20)
[2020-06-28] MEDS: Carvedilol 6.25mg Tab ORAL SCH ×2 (10:29→20:20)
[2020-06-28] MEDS: cefTRIAXone 1 GM in D5W 55 ML IVPB SCH (10:30)
[2020-06-28] MEDS: Enoxaparin 40mg Inj SUBQ SCH (10:31)
--- NOTE | 2020-06-28 11:24 | Pulmonology Progress Note ---
Subjective ROS Limited/Unobtainable: Yes Interval Events: Remains intubated; bilateral chest tubes in place Constitutional: Denies: fever HEENT: Repors: no symptoms Respiratory: Reports: shortness of breath Cardiovascular: Reports: no symptoms Gastrointestinal/Abdominal: Reports: no symptoms Allergies: Coded Allergies: No Known Allergies (Unverified , 06/17/20) All Systems: reviewed and negative except above Objective Last 24 Hour Vital Signs Date Time Temp Pulse Resp B/P (MAP) Pulse Ox O2 Delivery O2 Flow Rate FiO2 06/28/20 10:29 83 157/61 06/28/20 07:00 79 21 143/63 (89) 91 06/28/20 07:00 21 Mechanical Ventilator 80 06/28/20 07:00 21 143/63 Mechanical Ventilator 80 06/28/20 06:00 21 Mechanical Ventilator 80 06/28/20 06:00 21 149/63 Mechanical Ventilator 80 06/28/20 06:00 77 21 149/63 (91) 92 06/28/20 05:00 22 Mechanical Ventilator 80 06/28/20 05:00 22 140/60 Mechanical Ventilator 80 06/28/20 05:00 78 22 140/60 (86) 94 06/28/20 04:00 Mechanical Ventilator Mechanical Ventilator 06/28/20 04:00 80 06/28/20 04:00 23 Mechanical Ventilator 80 06/28/20 04:00 23 140/62 Mechanical Ventilator 80 06/28/20 04:00 98.6 76 23 140/62 (88) 92 06/28/20 04:00 76 06/28/20 03:04 26 Mechanical Ventilator 80 06/28/20 03:00 79 24 145/64 (91) 91 06/28/20 03:00 24 145/64 Mechanical Ventilator 80 06/28/20 03:00 24 Mechanical Ventilator 80 06/28/20 02:00 78 21 144/59 (87) 87 06/28/20 02:00 21 144/59 Mechanical Ventilator 80 06/28/20 02:00 21 Mechanical Ventilator 80 06/28/20 01:21 82 22 80 06/28/20 01:00 79 22 137/57 (83) 93 06/28/20 01:00 22 137/57 Mechanical Ventilator 80 06/28/20 01:00 22 Mechanical Ventilator 80 06/28/20 00:00 79 06/28/20 00:00 80 06/28/20 00:00 22 140/58 Mechanical Ventilator 80 06/28/20 00:00 22 Mechanical Ventilator 80 06/28/20 00:00 98.9 79 22 140/58 (85) 100 06/28/20 00:00 Mechanical Ventilator Mechanical Ventilator 06/27/20 23:00 79 22 140/54 (82) 100 06/27/20 23:00 22 140/54 Mechanical Ventilator 80 06/27/20 23:00 22 Mechanical Ventilator 80 06/27/20 22:00 21 139/59 Mechanical Ventilator 80 06/27/20 22:00 21 Mechanical Ventilator 80 06/27/20 22:00 83 21 139/59 (85) 100 06/27/20 21:00 22 141/54 Mechanical Ventilator 80 06/27/20 21:00 22 Mechanical Ventilator 80 06/27/20 21:00 82 141/54 06/27/20 21:00 82 22 141/54 (83) 100 06/27/20 20:00 Mechanical Ventilator Mechanical Ventilator 06/27/20 20:00 80 06/27/20 20:00 21 136/51 Mechanical Ventilator 80 06/27/20 20:00 21 Mechanical Ventilator 80 06/27/20 20:00 98.6 84 21 136/51 (79) 86 06/27/20 19:20 83 21 80 06/27/20 19:16 89 06/27/20 19:00 88 22 136/53 (80) 88 06/27/20 19:00 22 132/52 Mechanical Ventilator 80 06/27/20 19:00 22 Mechanical Ventilator 80 06/27/20 18:00 88 21 172/57 (95) 87 06/27/20 18:00 23 160/58 Mechanical Ventilator 80 06/27/20 18:00 23 Mechanical Ventilator 80 06/27/20 17:20 78 21 80 06/27/20 17:00 83 22 128/51 (76) 90 06/27/20 17:00 21 129/45 Mechanical Ventilator 80 06/27/20 17:00 21 Mechanical Ventilator 80 06/27/20 16:00 Mechanical Ventilator Mechanical Ventilator 06/27/20 16:00 20 129/49 Mechanical Ventilator 80 06/27/20 16:00 22 Mechanical Ventilator 80 06/27/20 16:00 80 06/27/20 16:00 98.0 82 21 130/49 (76) 91 2/6/21 15:44 82 06/27/20 15:15 82 21 80 06/27/20 15:00 79 21 124/50 (74) 90 06/27/20 15:00 20 124/50 Mechanical Ventilator 80 06/27/20 15:00 20 124/50 Mechanical Ventilator 80 06/27/20 15:00 20 Mechanical Ventilator 80 06/27/20 15:00 20 Mechanical Ventilator 80 06/27/20 14:46 20 121/48 Mechanical Ventilator 80 06/27/20 14:00 78 21 122/46 (71) 91 06/27/20 14:00 21 Mechanical Ventilator 80 06/27/20 14:00 21 124/44 Mechanical Ventilator 80 06/27/20 13:20 77 21 80 06/27/20 13:00 79 19 122/48 (72) 92 06/27/20 13:00 19 Mechanical Ventilator 80 06/27/20 13:00 19 116/50 Mechanical Ventilator 80 06/27/20 12:46 Mechanical Ventilator Mechanical Ventilator 06/27/20 12:00 98.0 78 20 112/47 (68) 90 06/27/20 12:00 17 06/27/20 12:00 19 113/47 Endotracheal Tube 80 06/27/20 11:46 100 06/27/20 11:46 Mechanical Ventilator Mechanical Ventilator 06/27/20 11:26 77 Intake and Output 06/27/20 06/28/20 19:00 07:00 Intake Total 834.00 ml 780 ml Output Total 684 ml 750 ml Balance 150.00 ml 30 ml IV Total 834.00 ml 780 ml Output Urine Total 616 ml 570 ml Chest Tube Drainage Total 68 ml 180 ml General Appearance: no acute distress HEENT: atraumatic Respiratory: crackles/rales Cardiovascular: normal rate Abdomen: soft, non tender Microbiology Date/Time Source Procedure Growth Status 06/25/20 12:00 Sputum Gram Stain - Final Complete 06/25/20 12:00 Sputum Culture - Final Mery Albicans Complete Laboratory Tests 06/27/20 11:42: POC Whole Blood Glucose [Pending] 06/27/20 23:22: POC Whole Blood Glucose 128H 06/28/20 04:40: Sodium Level 145, Potassium Level 4.8, Chloride Level 112H, Carbon Dioxide Level 31, Anion Gap 2L, Blood Urea Nitrogen 26H, Creatinine 0.5L, Estimat Glomerular Filtration Rate > 60, Glucose Level 106, Uric Acid 1.9L, Calcium Level 7.9L, Phosphorus Level 2.4L, Magnesium Level 2.4, Total Bilirubin 0.5, Aspartate Amino Transf (AST/SGOT) 50H, Alanine Aminotransferase (ALT/SGPT) 46, Alkaline Phosphatase 73, Total Protein 5.6L, Albumin 1.9L, Globulin 3.7, Albumin/Globulin Ratio 0.5L Current Medications Medications (Trade) Dose Ordered Sig/Maya Route PRN Reason Start Time Stop Time Status Last Admin Dose Admin Acetaminophen (Tylenol) 500 mg Q4H PRN ORAL Mild Pain (Pain Scale 1-3) 06/18/20 00:15 07/18/20 00:14 06/24/20 17:51 Acetaminophen (Tylenol) 500 mg Q4H PRN ORAL Temp >100.5 06/18/20 00:15 07/18/20 00:14 06/25/20 04:05 Carvedilol (Coreg) 6.25 mg EVERY 12 HOURS ORAL 06/22/20 21:00 07/22/20 20:59 06/28/20 10:29 Ceftriaxone Sodium 1 gm/ Dextrose 55 ml @ 110 mls/hr Q24H IVPB 06/23/20 11:00 06/30/20 10:59 06/28/20 10:30 Dextrose (Dextrose 50%) 25 ml Q30M PRN IV Hypoglycemia 06/18/20 14:15 09/16/20 14:14 Dextrose (Dextrose 50%) 50 ml Q30M PRN IV Hypoglycemia 06/18/20 14:15 09/16/20 14:14 Docusate Sodium (Colace) 100 mg THREE TIMES A DAY ORAL 06/18/20 13:00 07/18/20 12:59 06/27/20 17:38 Enoxaparin Sodium (Lovenox) 40 mg DAILY SUBQ 06/21/20 09:00 09/19/20 08:59 06/28/20 10:31 Fentanyl Citrate 1000 mcg/Sodium Chloride 100 ml @ 1 mls/hr Q24H IV 06/27/20 13:00 06/29/20 12:59 06/27/20 14:46 Haloperidol Lactate (Haldol) 10 mg Q6H PRN IM Agitation 06/23/20 11:30 08/07/20 11:29 06/23/20 11:34 Insulin Aspart (NovoLOG) while NPO Q6HR SUBQ 06/18/20 18:00 09/16/20 17:59 06/27/20 18:14 Midazolam HCl 100 mg/Sodium Chloride 200 ml @ 2 mls/hr Q24H PRN IV sedation 06/28/20 03:00 06/30/20 02:59 06/28/20 03:04 Pantoprazole (Protonix) 40 mg EVERY 12 HOURS IVP 06/18/20 21:00 07/18/20 20:59 06/28/20 10:29 Sodium Chloride 1,000 ml @ 50 mls/hr Q20H IV 06/26/20 08:00 07/26/20 07:59 06/27/20 23:29 Assessment/Plan Assessment/Plan 1. COVID-19 pneumonia -Intubated, on 80% FiO2. PEEP 5-10. -Will increase PEEP as peak pressures tolerate. SaO2 91% -On Decadron, s/p remdesivir 2. Leukocytosis -Likely secondary to #1 -WBC improving 3. Elevated D-dimer -Venous duplex ultrasound negative for DVT -Was on full dose Lovenox, switched to 40 subcu QD for DVT prophylaxis 4. Renal insufficiency -On IV fluids - nephro following 5. Anemia of chronic disease -Hematology oncology following 6. Sepsis -Status post antibiotics, fluid resuscitation 7. Pneumothorax 06/22/20 - b/l subcutaneous emphysema, pneumomediastinum, probable small left pneumothorax & ? trace right pneumothorax. -Pleur-evac adjusted by RN - placed CT by surgery (bilateral) - Charlie Sewell MD Jun 28, 2020 11:24
[2020-06-28] MEDS: Docusate 100mg/10ml Liq NG SCH ×2 (12:28→17:58)
--- NOTE | 2020-06-28 13:35 | Surgery Progress Note ---
Surgery Progress Note Subjective Procedure Performed 1. right chest tube insertion 2. left chest tube insertion Additional Comments ill appearing on support no n/v labs noted ct stable Objective Last 24 Hour Vital Signs Date Time Temp Pulse Resp B/P (MAP) Pulse Ox O2 Delivery O2 Flow Rate FiO2 06/28/20 13:00 71 26 124/62 (82) 89 06/28/20 13:00 75 27 132/66 (88) 88 06/28/20 12:30 69 25 119/62 (81) 90 06/28/20 12:30 77 27 148/71 (96) 91 06/28/20 12:29 24 120/58 Mechanical Ventilator 100 06/28/20 12:00 97.7 73 25 122/59 (80) 89 06/28/20 12:00 80 06/28/20 12:00 70 24 120/58 (78) 91 06/28/20 12:00 Mechanical Ventilator Mechanical Ventilator 06/28/20 12:00 70 06/28/20 11:45 74 23 124/62 (82) 82 06/28/20 11:30 75 24 124/62 (82) 95 06/28/20 11:30 78 23 121/57 (78) 100 06/28/20 11:15 83 23 136/65 (88) 81 06/28/20 11:00 85 22 148/64 (92) 94 06/28/20 11:00 83 23 136/65 (88) 95 06/28/20 10:45 84 22 150/57 (88) 90 06/28/20 10:30 81 21 145/59 (87) 91 06/28/20 10:29 83 157/61 06/28/20 10:15 81 22 157/61 (93) 91 06/28/20 10:00 82 21 157/61 (93) 91 06/28/20 09:45 82 21 142/64 (90) 90 06/28/20 09:30 82 20 152/61 (91) 91 06/28/20 09:15 83 21 149/58 (88) 90 06/28/20 09:00 81 21 149/58 (88) 90 06/28/20 08:45 81 20 148/60 (89) 91 06/28/20 08:30 81 21 142/62 (88) 91 06/28/20 08:15 97.8 82 21 142/62 (88) 91 06/28/20 08:00 80 06/28/20 08:00 81 21 146/62 (90) 92 06/28/20 08:00 81 21 142/62 (88) 91 06/28/20 08:00 Mechanical Ventilator Mechanical Ventilator 06/28/20 08:00 81 06/28/20 07:45 79 22 147/62 (90) 91 06/28/20 07:30 79 21 153/64 (93) 91 06/28/20 07:15 80 22 150/62 (91) 91 06/28/20 07:00 79 21 143/63 (89) 91 06/28/20 07:00 21 Mechanical Ventilator 80 06/28/20 07:00 21 143/63 Mechanical Ventilator 80 06/28/20 06:00 21 Mechanical Ventilator 80 06/28/20 06:00 21 149/63 Mechanical Ventilator 80 06/28/20 06:00 77 21 149/63 (91) 92 06/28/20 05:00 22 Mechanical Ventilator 80 06/28/20 05:00 22 140/60 Mechanical Ventilator 80 06/28/20 05:00 78 22 140/60 (86) 94 06/28/20 04:00 Mechanical Ventilator Mechanical Ventilator 06/28/20 04:00 80 06/28/20 04:00 23 Mechanical Ventilator 80 06/28/20 04:00 23 140/62 Mechanical Ventilator 80 06/28/20 04:00 98.6 76 23 140/62 (88) 92 06/28/20 04:00 76 06/28/20 03:04 26 Mechanical Ventilator 80 06/28/20 03:00 79 24 145/64 (91) 91 06/28/20 03:00 24 145/64 Mechanical Ventilator 80 06/28/20 03:00 24 Mechanical Ventilator 80 06/28/20 02:00 78 21 144/59 (87) 87 06/28/20 02:00 21 144/59 Mechanical Ventilator 80 06/28/20 02:00 21 Mechanical Ventilator 80 06/28/20 01:21 82 22 80 06/28/20 01:00 79 22 137/57 (83) 93 06/28/20 01:00 22 137/57 Mechanical Ventilator 80 06/28/20 01:00 22 Mechanical Ventilator 80 06/28/20 00:00 79 06/28/20 00:00 80 2/7/21 00:00 22 140/58 Mechanical Ventilator 80 06/28/20 00:00 22 Mechanical Ventilator 80 06/28/20 00:00 98.9 79 22 140/58 (85) 100 06/28/20 00:00 Mechanical Ventilator Mechanical Ventilator 06/27/20 23:00 79 22 140/54 (82) 100 06/27/20 23:00 22 140/54 Mechanical Ventilator 80 06/27/20 23:00 22 Mechanical Ventilator 80 06/27/20 22:00 21 139/59 Mechanical Ventilator 80 06/27/20 22:00 21 Mechanical Ventilator 80 06/27/20 22:00 83 21 139/59 (85) 100 06/27/20 21:00 22 141/54 Mechanical Ventilator 80 06/27/20 21:00 22 Mechanical Ventilator 80 06/27/20 21:00 82 141/54 06/27/20 21:00 82 22 141/54 (83) 100 06/27/20 20:00 Mechanical Ventilator Mechanical Ventilator 06/27/20 20:00 80 06/27/20 20:00 21 136/51 Mechanical Ventilator 80 06/27/20 20:00 21 Mechanical Ventilator 80 06/27/20 20:00 98.6 84 21 136/51 (79) 86 06/27/20 19:20 83 21 80 06/27/20 19:16 89 06/27/20 19:00 88 22 136/53 (80) 88 06/27/20 19:00 22 132/52 Mechanical Ventilator 80 06/27/20 19:00 22 Mechanical Ventilator 80 06/27/20 18:00 88 21 172/57 (95) 87 06/27/20 18:00 23 160/58 Mechanical Ventilator 80 06/27/20 18:00 23 Mechanical Ventilator 80 06/27/20 17:20 78 21 80 06/27/20 17:00 83 22 128/51 (76) 90 06/27/20 17:00 21 129/45 Mechanical Ventilator 80 06/27/20 17:00 21 Mechanical Ventilator 80 06/27/20 16:00 Mechanical Ventilator Mechanical Ventilator 06/27/20 16:00 20 129/49 Mechanical Ventilator 80 06/27/20 16:00 22 Mechanical Ventilator 80 06/27/20 16:00 80 06/27/20 16:00 98.0 82 21 130/49 (76) 91 06/27/20 15:44 82 06/27/20 15:15 82 21 80 06/27/20 15:00 79 21 124/50 (74) 90 06/27/20 15:00 20 124/50 Mechanical Ventilator 80 06/27/20 15:00 20 124/50 Mechanical Ventilator 80 06/27/20 15:00 20 Mechanical Ventilator 80 06/27/20 15:00 20 Mechanical Ventilator 80 06/27/20 14:46 20 121/48 Mechanical Ventilator 80 06/27/20 14:00 78 21 122/46 (71) 91 06/27/20 14:00 21 Mechanical Ventilator 80 06/27/20 14:00 21 124/44 Mechanical Ventilator 80 I&O Intake and Output 06/27/20 06/28/20 19:00 07:00 Intake Total 834.00 ml 780 ml Output Total 684 ml 750 ml Balance 150.00 ml 30 ml IV Total 834.00 ml 780 ml Output Urine Total 616 ml 570 ml Chest Tube Drainage Total 68 ml 180 ml Dressing: saturated Drains: other Cardiovascular: RSR, other Respiratory: decreased breath sounds Abdomen: soft, non-tender, present bowel sounds Extremities: no edema, no tenderness, no cyanosis Laboratory Tests Test 06/27/20 23:22 06/28/20 04:40 POC Whole Blood Glucose 128 MG/DL (74-106) H Sodium Level 145 MMOL/L (136-145) Potassium Level 4.8 MMOL/L (3.5-5.1) Chloride Level 112 MMOL/L (98-107) H Carbon Dioxide Level 31 MMOL/L (21-32) Anion Gap 2 mmol/L (5-15) L Blood Urea Nitrogen 26 mg/dL (7-18) H Creatinine 0.5 MG/DL (0.55-1.30) L Estimat Glomerular Filtration Rate > 60 mL/min (>60) Glucose Level 106 MG/DL (74-106) Uric Acid 1.9 MG/DL (2.6-7.2) L Calcium Level 7.9 MG/DL (8.5-10.1) L Phosphorus Level 2.4 MG/DL (2.5-4.9) L Magnesium Level 2.4 MG/DL (1.8-2.4) Total Bilirubin 0.5 MG/DL (0.2-1.0) Aspartate Amino Transf (AST/SGOT) 50 U/L (15-37) H Alanine Aminotransferase (ALT/SGPT) 46 U/L (12-78) Alkaline Phosphatase 73 U/L (46-116) Total Protein 5.6 G/DL (6.4-8.2) L Albumin 1.9 G/DL (3.4-5.0) L Globulin 3.7 g/dL Albumin/Globulin Ratio 0.5 (1.0-2.7) L Plan Problems: (1) Renal insufficiency (2) Elevated d-dimer (3) Dehydration (4) LEONARDO (acute kidney injury) (5) DMII (diabetes mellitus, type 2) (6) Hypoxia (7) Pneumonia due to COVID-19 virus (8) PNA (pneumonia) (9) Pneumothorax Assessment & Plan: Bilateral pneumothorax status post bilateral chest tubes. Still on significant vent support. leak performed. Continue weaning vent. Continue with chest tubes. Will monitor and manage chest tubes accordingly. Thank you for let me to participate in patient's care Elpidio Frazier Jun 28, 2020 13:35
--- NOTE | 2020-06-28 15:22 | General Progress Note ---
Subjective ROS Limited/Unobtainable: Yes Allergies: Coded Allergies: No Known Allergies (Unverified , 06/17/20) Objective Last 24 Hour Vital Signs Date Time Temp Pulse Resp B/P (MAP) Pulse Ox O2 Delivery O2 Flow Rate FiO2 06/28/20 14:00 24 Mechanical Ventilator 100 06/28/20 14:00 24 125/62 Mechanical Ventilator 100 06/28/20 13:00 71 26 124/62 (82) 89 06/28/20 13:00 25 Mechanical Ventilator 100 06/28/20 13:00 25 124/62 Mechanical Ventilator 100 06/28/20 13:00 75 27 132/66 (88) 88 06/28/20 12:30 69 25 119/62 (81) 90 06/28/20 12:30 77 27 148/71 (96) 91 06/28/20 12:29 24 120/58 Mechanical Ventilator 100 06/28/20 12:00 97.7 73 25 122/59 (80) 89 06/28/20 12:00 80 06/28/20 12:00 70 24 120/58 (78) 91 06/28/20 12:00 Mechanical Ventilator Mechanical Ventilator 06/28/20 12:00 26 Mechanical Ventilator 100 06/28/20 12:00 26 120/58 Mechanical Ventilator 100 06/28/20 12:00 70 06/28/20 11:45 74 23 124/62 (82) 82 06/28/20 11:30 75 24 124/62 (82) 95 06/28/20 11:30 78 23 121/57 (78) 100 06/28/20 11:15 83 23 136/65 (88) 81 06/28/20 11:12 78 23 80 06/28/20 11:00 85 22 148/64 (92) 94 06/28/20 11:00 23 Mechanical Ventilator 100 06/28/20 11:00 23 136/65 Mechanical Ventilator 100 06/28/20 11:00 83 23 136/65 (88) 95 06/28/20 10:45 84 22 150/57 (88) 90 06/28/20 10:30 81 21 145/59 (87) 91 06/28/20 10:29 83 157/61 06/28/20 10:15 81 22 157/61 (93) 91 06/28/20 10:00 22 Mechanical Ventilator 100 06/28/20 10:00 22 157/61 Mechanical Ventilator 100 06/28/20 10:00 82 21 157/61 (93) 91 06/28/20 09:45 82 21 142/64 (90) 90 06/28/20 09:30 82 20 152/61 (91) 91 06/28/20 09:15 83 21 149/58 (88) 90 06/28/20 09:00 81 21 149/58 (88) 90 06/28/20 09:00 21 Mechanical Ventilator 100 06/28/20 09:00 21 149/58 Mechanical Ventilator 100 06/28/20 08:45 81 20 148/60 (89) 91 06/28/20 08:30 81 21 142/62 (88) 91 06/28/20 08:15 97.8 82 21 142/62 (88) 91 06/28/20 08:00 80 06/28/20 08:00 21 Mechanical Ventilator 100 06/28/20 08:00 21 142/62 Mechanical Ventilator 100 06/28/20 08:00 81 21 146/62 (90) 92 06/28/20 08:00 81 21 142/62 (88) 91 06/28/20 08:00 Mechanical Ventilator Mechanical Ventilator 06/28/20 08:00 81 06/28/20 07:45 79 22 147/62 (90) 91 06/28/20 07:30 79 21 153/64 (93) 91 06/28/20 07:15 83 21 80 06/28/20 07:15 80 22 150/62 (91) 91 06/28/20 07:00 79 21 143/63 (89) 91 06/28/20 07:00 21 Mechanical Ventilator 80 06/28/20 07:00 21 143/63 Mechanical Ventilator 80 06/28/20 06:00 21 Mechanical Ventilator 80 06/28/20 06:00 21 149/63 Mechanical Ventilator 80 06/28/20 06:00 77 21 149/63 (91) 92 06/28/20 05:00 22 Mechanical Ventilator 80 06/28/20 05:00 22 140/60 Mechanical Ventilator 80 06/28/20 05:00 78 22 140/60 (86) 94 06/28/20 04:00 Mechanical Ventilator Mechanical Ventilator 06/28/20 04:00 80 06/28/20 04:00 23 Mechanical Ventilator 80 06/28/20 04:00 23 140/62 Mechanical Ventilator 80 06/28/20 04:00 98.6 76 23 140/62 (88) 92 06/28/20 04:00 76 06/28/20 03:04 26 Mechanical Ventilator 80 06/28/20 03:00 79 24 145/64 (91) 91 06/28/20 03:00 24 145/64 Mechanical Ventilator 80 06/28/20 03:00 24 Mechanical Ventilator 80 06/28/20 02:00 78 21 144/59 (87) 87 06/28/20 02:00 21 144/59 Mechanical Ventilator 80 06/28/20 02:00 21 Mechanical Ventilator 80 06/28/20 01:21 82 22 80 06/28/20 01:07 78 23 92 Mechanical Ventilator 80 06/28/20 01:00 79 22 137/57 (83) 93 06/28/20 01:00 22 137/57 Mechanical Ventilator 80 06/28/20 01:00 22 Mechanical Ventilator 80 06/28/20 00:00 79 06/28/20 00:00 80 06/28/20 00:00 22 140/58 Mechanical Ventilator 80 06/28/20 00:00 22 Mechanical Ventilator 80 06/28/20 00:00 98.9 79 22 140/58 (85) 100 06/28/20 00:00 Mechanical Ventilator Mechanical Ventilator 06/27/20 23:00 79 22 140/54 (82) 100 06/27/20 23:00 22 140/54 Mechanical Ventilator 80 06/27/20 23:00 22 Mechanical Ventilator 80 06/27/20 22:00 21 139/59 Mechanical Ventilator 80 06/27/20 22:00 21 Mechanical Ventilator 80 06/27/20 22:00 83 21 139/59 (85) 100 06/27/20 21:00 22 141/54 Mechanical Ventilator 80 06/27/20 21:00 22 Mechanical Ventilator 80 06/27/20 21:00 82 141/54 06/27/20 21:00 82 22 141/54 (83) 100 06/27/20 20:00 Mechanical Ventilator Mechanical Ventilator 06/27/20 20:00 80 06/27/20 20:00 21 136/51 Mechanical Ventilator 80 06/27/20 20:00 21 Mechanical Ventilator 80 06/27/20 20:00 98.6 84 21 136/51 (79) 86 06/27/20 19:20 83 21 80 06/27/20 19:16 89 06/27/20 19:00 88 22 136/53 (80) 88 06/27/20 19:00 22 132/52 Mechanical Ventilator 80 06/27/20 19:00 22 Mechanical Ventilator 80 06/27/20 18:00 88 21 172/57 (95) 87 06/27/20 18:00 23 160/58 Mechanical Ventilator 80 06/27/20 18:00 23 Mechanical Ventilator 80 06/27/20 17:20 78 21 80 06/27/20 17:00 83 22 128/51 (76) 90 06/27/20 17:00 21 129/45 Mechanical Ventilator 80 06/27/20 17:00 21 Mechanical Ventilator 80 06/27/20 16:00 Mechanical Ventilator Mechanical Ventilator 06/27/20 16:00 20 129/49 Mechanical Ventilator 80 06/27/20 16:00 22 Mechanical Ventilator 80 06/27/20 16:00 80 06/27/20 16:00 98.0 82 21 130/49 (76) 91 06/27/20 15:44 82 Intake and Output0 06/27/20 06/28/20 19:00 07:00 Intake Total 834.00 ml 780 ml Output Total 684 ml 750 ml Balance 150.00 ml 30 ml IV Total 834.00 ml 780 ml Output Urine Total 616 ml 570 ml Chest Tube Drainage Total 68 ml 180 ml Laboratory Tests 06/27/20 23:22: POC Whole Blood Glucose 128H 06/28/20 04:40: Sodium Level 145, Potassium Level 4.8, Chloride Level 112H, Carbon Dioxide Level 31, Anion Gap 2L, Blood Urea Nitrogen 26H, Creatinine 0.5L, Estimat Glomerular Filtration Rate > 60, Glucose Level 106, Uric Acid 1.9L, Calcium Level 7.9L, Phosphorus Level 2.4L, Magnesium Level 2.4, Total Bilirubin 0.5, Aspartate Amino Transf (AST/SGOT) 50H, Alanine Aminotransferase (ALT/SGPT) 46, Alkaline Phosphatase 73, Total Protein 5.6L, Albumin 1.9L, Globulin 3.7, Albumin/Globulin Ratio 0.5L Height (Feet): 5 Height (Inches): 2.00 Weight (Pounds): 138 Assessment/Plan Problem List: (1) Elevated d-dimer ICD Codes: R79.89 - Other specified abnormal findings of blood chemistry SNOMED: 560890405 (2) Renal insufficiency ICD Codes: N28.9 - Disorder of kidney and ureter, unspecified SNOMED: 787683426, 228588785 (3) PNA (pneumonia) ICD Codes: J18.9 - Pneumonia, unspecified organism SNOMED: 998177727 (4) Dehydration ICD Codes: E86.0 - Dehydration SNOMED: 99984283 (5) LEONARDO (acute kidney injury) ICD Codes: N17.9 - Acute kidney failure, unspecified SNOMED: 4441276, 10240433 (6) Hypoxia ICD Codes: R09.02 - Hypoxemia; J12.82 - Pneumonia due to coronavirus disease 2019 SNOMED: 894342656 (7) Pneumonia due to COVID-19 virus ICD Codes: U07.1 - COVID-19; J12.82 - Pneumonia due to coronavirus disease 2019 SNOMED: 264715266693927440 (8) DMII (diabetes mellitus, type 2) ICD Codes: E11.9 - Type 2 diabetes mellitus without complications SNOMED: 32351035 Status: progressing Assessment/Plan: covid + resp insuff intubated septic shock off presors no change Vidya Clayton MD Jun 28, 2020 15:22
--- NOTE | 2020-06-28 17:43 | Cardiac Electrophysiology PN ---
Assessment/Plan Assessment/Plan 1. Respiratory failure likely due to COVID pneumonia. Intubated on 90% Fio2. Echocardiogram showed ejection fraction within normal range. 2. Bilateral pneumothoraces. S/P bilateral chest tube placement with around 100 cc drainage 3. Troponin elevation. Levels are low and flat could be demand ischemia vs Renal failure EKG shows sinus tachycardia at 110 beats per minute. 4. Hypernatremia with sodium of 155. Resolved 5. Volume overload. Add Lasix 40 iv daily 6. COVID-19 positive and is in isolation, on dexamethasone, completed Remdesivir. 7. Hypertension, on Coreg 6.25 mg b.i.d. Subjective Subjective Intubated in ICU on Fentanyl drip and Versed drip . Has bilateral chest tube with around [address] drainage. SQ emphysema getting better. On 90% Fio2, PEEP 8 . Off pressors Objective Last 24 Hour Vital Signs Date Time Temp Pulse Resp B/P (MAP) Pulse Ox O2 Delivery O2 Flow Rate FiO2 06/28/20 16:00 78 06/28/20 16:00 80 06/28/20 14:00 24 Mechanical Ventilator 100 06/28/20 14:00 24 125/62 Mechanical Ventilator 100 06/28/20 13:00 71 26 124/62 (82) 89 06/28/20 13:00 25 Mechanical Ventilator 100 06/28/20 13:00 25 124/62 Mechanical Ventilator 100 06/28/20 13:00 75 27 132/66 (88) 88 06/28/20 12:30 69 25 119/62 (81) 90 06/28/20 12:30 77 27 148/71 (96) 91 06/28/20 12:29 24 120/58 Mechanical Ventilator 100 06/28/20 12:00 97.7 73 25 122/59 (80) 89 06/28/20 12:00 80 06/28/20 12:00 70 24 120/58 (78) 91 06/28/20 12:00 Mechanical Ventilator Mechanical Ventilator 06/28/20 12:00 26 Mechanical Ventilator 100 06/28/20 12:00 26 120/58 Mechanical Ventilator 100 06/28/20 12:00 70 06/28/20 11:45 74 23 124/62 (82) 82 06/28/20 11:30 75 24 124/62 (82) 95 06/28/20 11:30 78 23 121/57 (78) 100 06/28/20 11:15 83 23 136/65 (88) 81 06/28/20 11:12 78 23 80 06/28/20 11:00 85 22 148/64 (92) 94 06/28/20 11:00 23 Mechanical Ventilator 100 06/28/20 11:00 23 136/65 Mechanical Ventilator 100 06/28/20 11:00 83 23 136/65 (88) 95 06/28/20 10:45 84 22 150/57 (88) 90 06/28/20 10:30 81 21 145/59 (87) 91 06/28/20 10:29 83 157/61 06/28/20 10:15 81 22 157/61 (93) 91 06/28/20 10:00 22 Mechanical Ventilator 100 06/28/20 10:00 22 157/61 Mechanical Ventilator 100 06/28/20 10:00 82 21 157/61 (93) 91 06/28/20 09:45 82 21 142/64 (90) 90 06/28/20 09:30 82 20 152/61 (91) 91 06/28/20 09:15 83 21 149/58 (88) 90 06/28/20 09:00 81 21 149/58 (88) 90 06/28/20 09:00 21 Mechanical Ventilator 100 06/28/20 09:00 21 149/58 Mechanical Ventilator 100 06/28/20 08:45 81 20 148/60 (89) 91 06/28/20 08:30 81 21 142/62 (88) 91 06/28/20 08:15 97.8 82 21 142/62 (88) 91 06/28/20 08:00 80 06/28/20 08:00 21 Mechanical Ventilator 100 06/28/20 08:00 21 142/62 Mechanical Ventilator 100 06/28/20 08:00 81 21 146/62 (90) 92 06/28/20 08:00 81 21 142/62 (88) 91 06/28/20 08:00 Mechanical Ventilator Mechanical Ventilator 06/28/20 08:00 81 06/28/20 07:45 79 22 147/62 (90) 91 06/28/20 07:30 79 21 153/64 (93) 91 06/28/20 07:15 83 21 80 06/28/20 07:15 80 22 150/62 (91) 91 06/28/20 07:00 79 21 143/63 (89) 91 06/28/20 07:00 21 Mechanical Ventilator 80 06/28/20 07:00 21 143/63 Mechanical Ventilator 80 06/28/20 06:00 21 Mechanical Ventilator 80 06/28/20 06:00 21 149/63 Mechanical Ventilator 80 06/28/20 06:00 77 21 149/63 (91) 92 06/28/20 05:00 22 Mechanical Ventilator 80 06/28/20 05:00 22 140/60 Mechanical Ventilator 80 06/28/20 05:00 78 22 140/60 (86) 94 06/28/20 04:00 Mechanical Ventilator Mechanical Ventilator 06/28/20 04:00 80 06/28/20 04:00 23 Mechanical Ventilator 80 06/28/20 04:00 23 140/62 Mechanical Ventilator 80 06/28/20 04:00 98.6 76 23 140/62 (88) 92 06/28/20 04:00 76 06/28/20 03:04 26 Mechanical Ventilator 80 06/28/20 03:00 79 24 145/64 (91) 91 06/28/20 03:00 24 145/64 Mechanical Ventilator 80 06/28/20 03:00 24 Mechanical Ventilator 80 06/28/20 02:00 78 21 144/59 (87) 87 06/28/20 02:00 21 144/59 Mechanical Ventilator 80 06/28/20 02:00 21 Mechanical Ventilator 80 06/28/20 01:21 82 22 80 06/28/20 01:07 78 23 92 Mechanical Ventilator 80 06/28/20 01:00 79 22 137/57 (83) 93 06/28/20 01:00 22 137/57 Mechanical Ventilator 80 06/28/20 01:00 22 Mechanical Ventilator 80 06/28/20 00:00 79 06/28/20 00:00 80 06/28/20 00:00 22 140/58 Mechanical Ventilator 80 06/28/20 00:00 22 Mechanical Ventilator 80 06/28/20 00:00 98.9 79 22 140/58 (85) 100 06/28/20 00:00 Mechanical Ventilator Mechanical Ventilator 06/27/20 23:00 79 22 140/54 (82) 100 06/27/20 23:00 22 140/54 Mechanical Ventilator 80 2/6/21 23:00 22 Mechanical Ventilator 80 06/27/20 22:00 21 139/59 Mechanical Ventilator 80 06/27/20 22:00 21 Mechanical Ventilator 80 06/27/20 22:00 83 21 139/59 (85) 100 06/27/20 21:00 22 141/54 Mechanical Ventilator 80 06/27/20 21:00 22 Mechanical Ventilator 80 06/27/20 21:00 82 141/54 06/27/20 21:00 82 22 141/54 (83) 100 06/27/20 20:00 Mechanical Ventilator Mechanical Ventilator 06/27/20 20:00 80 06/27/20 20:00 21 136/51 Mechanical Ventilator 80 06/27/20 20:00 21 Mechanical Ventilator 80 06/27/20 20:00 98.6 84 21 136/51 (79) 86 06/27/20 19:20 83 21 80 06/27/20 19:16 89 06/27/20 19:00 88 22 136/53 (80) 88 06/27/20 19:00 22 132/52 Mechanical Ventilator 80 06/27/20 19:00 22 Mechanical Ventilator 80 06/27/20 18:00 88 21 172/57 (95) 87 06/27/20 18:00 23 160/58 Mechanical Ventilator 80 06/27/20 18:00 23 Mechanical Ventilator 80 Intake and Output 06/27/20 06/28/20 19:00 07:00 Intake Total 834.00 ml 780 ml Output Total 684 ml 750 ml Balance 150.00 ml 30 ml IV Total 834.00 ml 780 ml Output Urine Total 616 ml 570 ml Chest Tube Drainage Total 68 ml 180 ml Laboratory Tests Test 06/27/20 23:22 06/28/20 04:40 POC Whole Blood Glucose 128 MG/DL (74-106) H Sodium Level 145 MMOL/L (136-145) Potassium Level 4.8 MMOL/L (3.5-5.1) Chloride Level 112 MMOL/L (98-107) H Carbon Dioxide Level 31 MMOL/L (21-32) Anion Gap 2 mmol/L (5-15) L Blood Urea Nitrogen 26 mg/dL (7-18) H Creatinine 0.5 MG/DL (0.55-1.30) L Estimat Glomerular Filtration Rate > 60 mL/min (>60) Glucose Level 106 MG/DL (74-106) Uric Acid 1.9 MG/DL (2.6-7.2) L Calcium Level 7.9 MG/DL (8.5-10.1) L Phosphorus Level 2.4 MG/DL (2.5-4.9) L Magnesium Level 2.4 MG/DL (1.8-2.4) Total Bilirubin 0.5 MG/DL (0.2-1.0) Aspartate Amino Transf (AST/SGOT) 50 U/L (15-37) H Alanine Aminotransferase (ALT/SGPT) 46 U/L (12-78) Alkaline Phosphatase 73 U/L (46-116) Total Protein 5.6 G/DL (6.4-8.2) L Albumin 1.9 G/DL (3.4-5.0) L Globulin 3.7 g/dL Albumin/Globulin Ratio 0.5 (1.0-2.7) L Objective HEAD AND NECK: No JVD.Orally intubated with SQ emphysema LUNGS: Coarse rhonchi bilaterally. Bilateral chest tubes in. CARDIOVASCULAR: Regular S1 and S2 and tachycardic. ABDOMEN: Soft. EXTREMITIES: No pitting edema. Maxwell Carreon MD Jun 28, 2020 17:43
--- NOTE | 2020-06-28 19:24 | NUR ---
NURSE HAND-OFF REPORT: Latest Vital Signs: Temperature 98.2 , Pulse 86 , B/P 170 /70 , Respiratory Rate 29 , O2 SAT 92 , Mechanical Ventilator, O2 Flow Rate . Vital Sign Comment: EKG Rhythm: Sinus Rhythm Rhythm change?: N MD Notified?: N - MD Response: Latest Carney Fall Score: 60 Fall Risk: High Risk Safety Measures: Call light Within Reach, Bed Alarm Zone 2, Side Rails Side Rails x3, Bed position Low and Locked. Fall Precautions: Yellow Socks Door Sign Patient Fall Education Report given to NORMAN Antony.
--- NOTE | 2020-06-28 19:45 | NUR ---
NURSE NOTES: PATIENT SEDATED, RASS SCORE -2 STATUS, ON ETT TO VENT AC 16/TV400/FIO2 90%/PEEP 8, O2 SATURATION 88% NOTED, CHEST TUBE TO BILATERAL INTACT WITH PLEU VAC, SEROSANGUINEOUS DISCHARGE OUTED, OGT INTACT AND PATENT, KEPT HOB 30 DEGREES AND ASPIRATION PRECAUTION, ABDOMEN SOFT, NON TENDER, NO BM STATUS, F/C INTACT AND PATENT, YELLOW COLOR URINE OUTED, PPL TO RIGHT AC 20G INTACT AND PATENT, RIGHT WRIST 20G, LEAKED STATUS, ONGOING VERSED 5MG AND FENTANYL 50MCG/HR VIA RT. AC PPL, IV FLUID NS AT 50 ML VIA RT. WRIST PPL STATUS, KEPT [place] PRECAUTION, MADE LOWER BED POSITION, ON BED ALARM AND LOCKED, WILL CONTINUE TO MONITOR.
--- NOTE | 2020-06-28 19:50 | NUR ---
NURSE NOTES: INSERTED PPL TO LEFT FA 22G CONNECTED IV FLUID NS AT AT 50ML/HR, WILL CONTINUE TO MONITOR.
[2020-06-28] MEDS ORDERED: Heparin1,000 units/500ml Premix(Conc:2 units/ml) IV PRN (20:00)
[2020-06-28] MEDS: Dyna-Hex 2% Top Sol 2oz TOPIC SCH (20:00)
--- NOTE | 2020-06-28 20:30 | NUR ---
NURSE NOTES: DESATURATION 85% SATTUS, RT CAME, CHANGED FIO2 TO 100%, WILL CONTINUE TO MONITOR.
--- NOTE | 2020-06-28 23:15 | NUR ---
NURSE NOTES: GOT TELEPHONE CONSENT FOR PICC LINE PLACEMENT FROM PT'S SON (ANGELES) THAT VERIFIED 2 NURSES.
[2020-06-29] VITALS (42 sets, daily range): BP systolic 89–178; BP diastolic 26–109
--- NOTE | 2020-06-29 00:40 | NUR ---
NURSE NOTES: ONGOING FENTANYL 60MCG/HR AND VERSED 8MG/HR VIA RIGHT AC PPL, RASS SCORE -2, WILL CONTINUE TO MONITOR.
--- NOTE | 2020-06-29 02:10 | NUR ---
NURSE NOTES: TEMP 99.9 F NOTED, REPOSITIONED AND APPLIED COOLING MEASURE, WILL CONTINUE TO MONITOR.
--- NOTE | 2020-06-29 04:20 | NUR ---
NURSE NOTES: MORNING CARE AND ORAL CARE WAS DONE, NO BM STATUS, TOLERATED OGT FEEDING.
[2020-06-29] MEDS: NovoLOG Insulin Flexpen SUBQ SCH ×4 (05:32→23:46)
--- NOTE | 2020-06-29 06:10 | NUR ---
NURSE NOTES: ONGOING GLUCERNA 1.2 AT 35ML/HR VIA OGT, RESIDUE 20ML OUTED, SEDATED, ONGOING FENTANYL 70MCG/HR AND VERSED 8MG/HR VIA RIGHT AC PPL, VSS AT THIS TIME, WILL CONTINUE TO MONITOR.
[2020-06-29 06:30] LABS: HEMATOCRIT 35.6 % (37.0-47.0); HEMOGLOBIN 11.4 G/DL (12.0-16.0); MEAN CORPUSCULAR VOLUME 94 FL (80-99); PLATELET COUNT 124 K/UL (150-450); RED CELL DISTRIBUTION WIDTH 14.7 % (11.6-14.8); WHITE BLOOD COUNT 10.1 K/UL (4.8-10.8)
--- NOTE | 2020-06-29 06:44 | Hematology/Onc Progress Note ---
Assessment/Plan Assessment/Plan Assessment and recs # Leukocytosis with Pneumonia due to COVID-19 virus -> wbc trend 15-->11-->10->17-->18->11 --> ABX as per id ctx --> imaging does show pna --> anticoag recommended --> on remdesivir # Anemia of chronic disease --> hgb 12->10-->9-->11 -> transfuse prn --> r/o hemolysis # Elevated ddimer due to covid --> duplex legs -> LOVENOX sq # Thrombocytopenia due to Covid19++ with Hypoxia -> steriods, abx per id --> plt 117-->121-->124 --> smear is noted # Renal insufficiency -> per renal care # Sepsis due to above --> abx, fluid resuscitation # Dvt ppx lovenox sq Appreciate consultation and mehran RN Subjective Allergies: Coded Allergies: No Known Allergies (Unverified , 06/17/20) All Systems: reviewed and negative except above Subjective 06/19 sleeping, comfortable, on bipap, meds have been reviewed 06/21 on bipap, labs have been reviewed, no major events 06/22 bipap labs reviewed, meds noted, no bleeding 06/23 bipap labs noted, no bleeding, meds reviewed, mehran rn 06/24 on vent, labs reviewed, meds reviewed 06/25 on vent, with ctx as abx, labs noted, no bleeding 06/26 vent, with ogt, with helms, labs noted, no bleeding plts lower 06/28 labs are pending, on vent, helms intract, no new changes 06/29 icu, on vent, hgb 11, plt 124, meds noted, on ctx Objective Objective Current Medications Medications (Trade) Dose Ordered Sig/Maya Route PRN Reason Start Time Stop Time Status Last Admin Dose Admin Acetaminophen (Tylenol) 500 mg Q4H PRN ORAL Mild Pain (Pain Scale 1-3) 06/18/20 00:15 07/18/20 00:14 06/24/20 17:51 Acetaminophen (Tylenol) 500 mg Q4H PRN ORAL Temp >100.5 06/18/20 00:15 07/18/20 00:14 06/25/20 04:05 Carvedilol (Coreg) 6.25 mg EVERY 12 HOURS ORAL 06/22/20 21:00 07/22/20 20:59 06/28/20 20:20 Ceftriaxone Sodium 1 gm/ Dextrose 55 ml @ 110 mls/hr Q24H IVPB 06/23/20 11:00 06/30/20 10:59 06/28/20 10:30 Chlorhexidine Gluconate (Sissy-Hex 2%) 1 applic DAILY@2000 TOPIC 06/28/20 20:00 09/26/20 19:59 Dextrose (Dextrose 50%) 25 ml Q30M PRN IV Hypoglycemia 06/18/20 14:15 09/16/20 14:14 Dextrose (Dextrose 50%) 50 ml Q30M PRN IV Hypoglycemia 06/18/20 14:15 09/16/20 14:14 Docusate Sodium (Colace) 100 mg THREE TIMES A DAY NG 06/28/20 13:00 07/28/20 12:59 06/28/20 12:28 Enoxaparin Sodium (Lovenox) 40 mg DAILY SUBQ 06/21/20 09:00 09/19/20 08:59 06/28/20 10:31 Fentanyl Citrate 1000 mcg/Sodium Chloride 100 ml @ 1 mls/hr Q24H IV 06/27/20 13:00 06/29/20 12:59 06/29/20 06:03 Furosemide (Lasix) 40 mg DAILY IV 06/28/20 17:45 07/28/20 16:59 06/28/20 17:57 Haloperidol Lactate (Haldol) 10 mg Q6H PRN IM Agitation 06/23/20 11:30 08/07/20 11:29 06/23/20 11:34 Heparin Sodium/ Sodium Chloride (Heparin 1000 units/500ml Premix) 1,000 unit NEEDED PRN IV PICC LINE PLACEMENT 06/28/20 20:00 Insulin Aspart (NovoLOG) while NPO Q6HR SUBQ 06/18/20 18:00 09/16/20 17:59 06/27/20 18:14 Midazolam HCl 100 mg/Sodium Chloride 200 ml @ 2 mls/hr Q24H PRN IV sedation 06/28/20 03:00 06/30/20 02:59 06/28/20 23:07 Pantoprazole (Protonix) 40 mg EVERY 12 HOURS IVP 06/18/20 21:00 07/18/20 20:59 06/28/20 20:20 Sodium Chloride 1,000 ml @ 50 mls/hr Q20H IV 06/26/20 08:00 07/26/20 07:59 06/28/20 19:32 Last 24 Hour Vital Signs Date Time Temp Pulse Resp B/P (MAP) Pulse Ox O2 Delivery O2 Flow Rate FiO2 06/29/20 06:03 30 136/61 Mechanical Ventilator 100 06/29/20 04:00 93 06/29/20 04:00 98.6 93 31 132/62 (85) 94 06/29/20 04:00 Mechanical Ventilator Mechanical Ventilator 06/29/20 04:00 100 06/29/20 03:00 94 33 155/62 (93) 95 06/29/20 02:30 99 33 156/72 (100) 95 06/29/20 02:00 100 33 147/64 (91) 95 06/29/20 01:30 100 34 156/66 (96) 93 06/29/20 01:00 100 35 100 06/29/20 01:00 101 36 164/81 (108) 97 06/29/20 01:00 36 Mechanical Ventilator 100 06/29/20 01:00 36 164/81 Mechanical Ventilator 100 06/29/20 00:42 100 35 161/69 (99) 93 06/29/20 00:30 34 156/66 Mechanical Ventilator 100 06/29/20 00:30 99 35 178/71 (106) 94 06/29/20 00:22 97 36 177/74 (108) 94 06/29/20 00:00 36 Mechanical Ventilator 100 06/29/20 00:00 36 178/74 Mechanical Ventilator 100 06/29/20 00:00 Mechanical Ventilator Mechanical Ventilator 06/29/20 00:00 99.9 93 36 178/74 (108) 96 06/29/20 00:00 100 06/29/20 00:00 93 06/28/20 23:07 35 Mechanical Ventilator 100 06/28/20 23:00 35 Mechanical Ventilator 100 06/28/20 23:00 35 165/60 Mechanical Ventilator 100 06/28/20 22:46 96 37 144/63 (90) 91 06/28/20 22:45 96 37 91 06/28/20 22:30 94 36 181/69 (106) 71 06/28/20 22:29 95 37 165/69 (101) 85 06/28/20 22:24 94 36 173/63 (99) 98 06/28/20 22:00 35 Mechanical Ventilator 100 06/28/20 22:00 35 165/60 Mechanical Ventilator 100 06/28/20 22:00 99.4 91 35 165/60 (95) 93 06/28/20 21:00 93 37 160/67 (98) 91 06/28/20 21:00 37 Mechanical Ventilator 100 06/28/20 21:00 37 160/67 Mechanical Ventilator 100 06/28/20 20:30 100 06/28/20 20:20 93 142/64 06/28/20 20:00 Mechanical Ventilator Mechanical Ventilator 06/28/20 20:00 31 Mechanical Ventilator 90 06/28/20 20:00 31 148/64 Mechanical Ventilator 90 06/28/20 20:00 93 31 148/64 (92) 82 06/28/20 20:00 90 06/28/20 19:58 92 06/28/20 19:30 93 37 100 06/28/20 19:00 30 Mechanical Ventilator 90 06/28/20 19:00 30 151/64 Mechanical Ventilator 90 06/28/20 19:00 98.5 88 30 151/64 (93) 83 06/28/20 18:45 86 29 170/70 (103) 92 06/28/20 18:30 84 28 162/66 (98) 88 06/28/20 18:19 85 29 168/61 (96) 06/28/20 18:15 92 29 178/65 (102) 06/28/20 18:00 83 27 151/67 (95) 88 06/28/20 18:00 27 Mechanical Ventilator 100 06/28/20 18:00 27 178/66 Mechanical Ventilator 100 06/28/20 17:45 82 27 152/60 (90) 88 06/28/20 17:30 80 27 134/60 (84) 88 06/28/20 17:15 80 27 127/64 (85) 88 06/28/20 17:00 26 Mechanical Ventilator 100 06/28/20 17:00 26 127/64 Mechanical Ventilator 100 06/28/20 17:00 79 26 123/61 (81) 88 06/28/20 16:45 79 26 122/59 (80) 88 06/28/20 16:30 78 26 119/59 (79) 90 06/28/20 16:15 80 26 124/58 (80) 93 06/28/20 16:04 84 27 139/60 (86) 99 06/28/20 16:00 Mechanical Ventilator Mechanical Ventilator 06/28/20 16:00 78 06/28/20 16:00 98.2 83 25 171/119 (136) 89 06/28/20 16:00 26 Mechanical Ventilator 100 06/28/20 16:00 26 139/60 Mechanical Ventilator 100 06/28/20 16:00 80 06/28/20 15:45 76 26 136/64 (88) 91 06/28/20 15:30 73 26 136/63 (87) 87 06/28/20 15:15 74 26 133/66 (88) 88 06/28/20 15:05 74 25 80 06/28/20 15:00 73 25 139/66 (90) 88 06/28/20 15:00 26 Mechanical Ventilator 100 06/28/20 15:00 26 133/66 Mechanical Ventilator 100 06/28/20 14:45 72 28 141/71 (94) 89 06/28/20 14:30 72 25 130/65 (86) 90 06/28/20 14:15 71 24 125/62 (83) 91 06/28/20 14:00 24 Mechanical Ventilator 100 06/28/20 14:00 24 125/62 Mechanical Ventilator 100 06/28/20 14:00 71 24 124/62 (82) 91 06/28/20 13:45 72 25 124/62 (82) 91 06/28/20 13:30 70 25 125/63 (83) 90 06/28/20 13:15 71 26 124/62 (82) 89 06/28/20 13:00 71 26 124/62 (82) 89 06/28/20 13:00 25 Mechanical Ventilator 100 06/28/20 13:00 25 124/62 Mechanical Ventilator 100 06/28/20 13:00 75 27 132/66 (88) 88 06/28/20 12:30 69 25 119/62 (81) 90 06/28/20 12:30 77 27 148/71 (96) 91 06/28/20 12:29 24 120/58 Mechanical Ventilator 100 06/28/20 12:00 97.7 73 25 122/59 (80) 89 06/28/20 12:00 80 06/28/20 12:00 70 24 120/58 (78) 91 06/28/20 12:00 Mechanical Ventilator Mechanical Ventilator 06/28/20 12:00 26 Mechanical Ventilator 100 06/28/20 12:00 26 120/58 Mechanical Ventilator 100 06/28/20 12:00 70 06/28/20 11:45 74 23 124/62 (82) 82 06/28/20 11:30 75 24 124/62 (82) 95 06/28/20 11:30 78 23 121/57 (78) 100 06/28/20 11:15 83 23 136/65 (88) 81 06/28/20 11:12 78 23 80 06/28/20 11:00 85 22 148/64 (92) 94 06/28/20 11:00 23 Mechanical Ventilator 100 06/28/20 11:00 23 136/65 Mechanical Ventilator 100 06/28/20 11:00 83 23 136/65 (88) 95 06/28/20 10:45 84 22 150/57 (88) 90 06/28/20 10:30 81 21 145/59 (87) 91 06/28/20 10:29 83 157/61 06/28/20 10:15 81 22 157/61 (93) 91 06/28/20 10:00 22 Mechanical Ventilator 100 06/28/20 10:00 22 157/61 Mechanical Ventilator 100 06/28/20 10:00 82 21 157/61 (93) 91 06/28/20 09:45 82 21 142/64 (90) 90 06/28/20 09:30 82 20 152/61 (91) 91 06/28/20 09:15 83 21 149/58 (88) 90 06/28/20 09:00 81 21 149/58 (88) 90 06/28/20 09:00 21 Mechanical Ventilator 100 06/28/20 09:00 21 149/58 Mechanical Ventilator 100 06/28/20 08:45 81 20 148/60 (89) 91 06/28/20 08:30 81 21 142/62 (88) 91 06/28/20 08:15 97.8 82 21 142/62 (88) 91 06/28/20 08:00 80 06/28/20 08:00 21 Mechanical Ventilator 100 06/28/20 08:00 21 142/62 Mechanical Ventilator 100 06/28/20 08:00 81 21 146/62 (90) 92 06/28/20 08:00 81 21 142/62 (88) 91 06/28/20 08:00 Mechanical Ventilator Mechanical Ventilator 06/28/20 08:00 81 06/28/20 07:45 79 22 147/62 (90) 91 06/28/20 07:30 79 21 153/64 (93) 91 06/28/20 07:15 83 21 80 06/28/20 07:15 80 22 150/62 (91) 91 06/28/20 07:00 79 21 143/63 (89) 91 06/28/20 07:00 21 Mechanical Ventilator 80 06/28/20 07:00 21 143/63 Mechanical Ventilator 80 06/28/20 06:00 21 Mechanical Ventilator 80 06/28/20 06:00 21 149/63 Mechanical Ventilator 80 06/28/20 06:00 77 21 149/63 (91) 92 06/28/20 05:00 22 Mechanical Ventilator 80 06/28/20 05:00 22 140/60 Mechanical Ventilator 80 06/28/20 05:00 78 22 140/60 (86) 94 06/28/20 04:00 Mechanical Ventilator Mechanical Ventilator 06/28/20 04:00 80 06/28/20 04:00 23 Mechanical Ventilator 80 06/28/20 04:00 23 140/62 Mechanical Ventilator 80 06/28/20 04:00 98.6 76 23 140/62 (88) 92 06/28/20 04:00 76 06/28/20 03:04 26 Mechanical Ventilator 80 06/28/20 03:00 79 24 145/64 (91) 91 06/28/20 03:00 24 145/64 Mechanical Ventilator 80 06/28/20 03:00 24 Mechanical Ventilator 80 06/28/20 02:00 78 21 144/59 (87) 87 06/28/20 02:00 21 144/59 Mechanical Ventilator 80 06/28/20 02:00 21 Mechanical Ventilator 80 06/28/20 01:21 82 22 80 06/28/20 01:07 78 23 92 Mechanical Ventilator 80 06/28/20 01:00 79 22 137/57 (83) 93 06/28/20 01:00 22 137/57 Mechanical Ventilator 80 06/28/20 01:00 22 Mechanical Ventilator 80 06/28/20 00:00 79 06/28/20 00:00 80 06/28/20 00:00 22 140/58 Mechanical Ventilator 80 06/28/20 00:00 22 Mechanical Ventilator 80 06/28/20 00:00 98.9 79 22 140/58 (85) 100 06/28/20 00:00 Mechanical Ventilator Mechanical Ventilator 06/27/20 23:00 79 22 140/54 (82) 100 06/27/20 23:00 22 140/54 Mechanical Ventilator 80 06/27/20 23:00 22 Mechanical Ventilator 80 06/27/20 22:00 21 139/59 Mechanical Ventilator 80 06/27/20 22:00 21 Mechanical Ventilator 80 06/27/20 22:00 83 21 139/59 (85) 100 06/27/20 21:00 22 141/54 Mechanical Ventilator 80 06/27/20 21:00 22 Mechanical Ventilator 80 06/27/20 21:00 82 141/54 06/27/20 21:00 82 22 141/54 (83) 100 06/27/20 20:00 Mechanical Ventilator Mechanical Ventilator 06/27/20 20:00 80 06/27/20 20:00 21 136/51 Mechanical Ventilator 80 06/27/20 20:00 21 Mechanical Ventilator 80 06/27/20 20:00 98.6 84 21 136/51 (79) 86 06/27/20 19:20 83 21 80 06/27/20 19:16 89 06/27/20 19:00 88 22 136/53 (80) 88 06/27/20 19:00 22 132/52 Mechanical Ventilator 80 06/27/20 19:00 22 Mechanical Ventilator 80 06/27/20 18:00 88 21 172/57 (95) 87 06/27/20 18:00 23 160/58 Mechanical Ventilator 80 06/27/20 18:00 23 Mechanical Ventilator 80 06/27/20 17:20 78 21 80 06/27/20 17:00 83 22 128/51 (76) 90 06/27/20 17:00 21 129/45 Mechanical Ventilator 80 06/27/20 17:00 21 Mechanical Ventilator 80 06/27/20 16:00 Mechanical Ventilator Mechanical Ventilator 06/27/20 16:00 20 129/49 Mechanical Ventilator 80 06/27/20 16:00 22 Mechanical Ventilator 80 06/27/20 16:00 80 06/27/20 16:00 98.0 82 21 130/49 (76) 91 06/27/20 15:44 82 06/27/20 15:15 82 21 80 06/27/20 15:00 79 21 124/50 (74) 90 06/27/20 15:00 20 124/50 Mechanical Ventilator 80 06/27/20 15:00 20 124/50 Mechanical Ventilator 80 06/27/20 15:00 20 Mechanical Ventilator 80 06/27/20 15:00 20 Mechanical Ventilator 80 06/27/20 14:46 20 121/48 Mechanical Ventilator 80 06/27/20 14:00 78 21 122/46 (71) 91 06/27/20 14:00 21 Mechanical Ventilator 80 06/27/20 14:00 21 124/44 Mechanical Ventilator 80 06/27/20 13:20 77 21 80 06/27/20 13:00 79 19 122/48 (72) 92 06/27/20 13:00 19 Mechanical Ventilator 80 06/27/20 13:00 19 116/50 Mechanical Ventilator 80 06/27/20 12:46 Mechanical Ventilator Mechanical Ventilator 06/27/20 12:00 98.0 78 20 112/47 (68) 90 06/27/20 12:00 17 06/27/20 12:00 19 113/47 Endotracheal Tube 80 06/27/20 11:46 100 06/27/20 11:46 Mechanical Ventilator Mechanical Ventilator 06/27/20 11:26 77 06/27/20 11:20 75 17 80 06/27/20 11:00 76 17 110/49 (69) 97 06/27/20 11:00 17 80 06/27/20 11:00 17 110/49 Endotracheal Tube 80 06/27/20 10:00 80 17 115/46 (69) 96 06/27/20 10:00 17 Endotracheal Tube 80 06/27/20 10:00 17 115/46 Endotracheal Tube 80 06/27/20 09:30 83 17 90 06/27/20 09:18 83 119/47 06/27/20 09:00 17 Endotracheal Tube 80 06/27/20 09:00 17 119/46 Endotracheal Tube 80 06/27/20 09:00 81 16 119/46 (70) 100 06/27/20 08:00 Mechanical Ventilator Mechanical Ventilator 06/27/20 08:00 100 06/27/20 08:00 17 Endotracheal Tube 80 06/27/20 08:00 17 113/44 Endotracheal Tube 80 06/27/20 08:00 80 06/27/20 08:00 97.8 80 16 113/44 (67) 99 06/27/20 07:20 76 16 100 06/27/20 07:04 16 Mechanical Ventilator 100 06/27/20 07:00 16 Mechanical Ventilator 100 06/27/20 07:00 16 118/47 Mechanical Ventilator 100 06/27/20 07:00 80 16 118/47 (70) 99 Intake and Output 06/28/20 06/29/20 19:00 07:00 Intake Total 835 ml 980.0 ml Output Total 1975 ml 1660 ml Balance -1140 ml -680.0 ml IV Total 835 ml 695.0 ml Tube Feeding 245 ml Other 40 ml Output Urine Total 1890 ml 1625 ml Chest Tube Drainage Total 85 ml 35 ml # Bowel Movements 1 Labs Test 06/26/20 12:50 06/26/20 18:16 06/26/20 23:05 06/27/20 11:42 POC Whole Blood Glucose 139 MG/DL (74-106) Test 06/27/20 23:22 06/28/20 04:40 06/28/20 05:09 06/29/20 05:05 POC Whole Blood Glucose 128 MG/DL (74-106) 124 MG/DL (74-106) Sodium Level 145 MMOL/L (136-145) Potassium Level 4.8 MMOL/L (3.5-5.1) Chloride Level 112 MMOL/L (98-107) Carbon Dioxide Level 31 MMOL/L (21-32) Anion Gap 2 mmol/L (5-15) Blood Urea Nitrogen 26 mg/dL (7-18) Creatinine 0.5 MG/DL (0.55-1.30) Estimat Glomerular Filtration Rate > 60 mL/min (>60) Glucose Level 106 MG/DL (74-106) Uric Acid 1.9 MG/DL (2.6-7.2) Calcium Level 7.9 MG/DL (8.5-10.1) Phosphorus Level 2.4 MG/DL (2.5-4.9) Magnesium Level 2.4 MG/DL (1.8-2.4) Total Bilirubin 0.5 MG/DL (0.2-1.0) Aspartate Amino Transf (AST/SGOT) 50 U/L (15-37) Alanine Aminotransferase (ALT/SGPT) 46 U/L (12-78) Alkaline Phosphatase 73 U/L (46-116) Total Protein 5.6 G/DL (6.4-8.2) Albumin 1.9 G/DL (3.4-5.0) Globulin 3.7 g/dL Albumin/Globulin Ratio 0.5 (1.0-2.7) White Blood Count 10.1 K/UL (4.8-10.8) Red Blood Count 3.80 M/UL (4.20-5.40) Hemoglobin 11.4 G/DL (12.0-16.0) Hematocrit 35.6 % (37.0-47.0) Mean Corpuscular Volume 94 FL (80-99) Mean Corpuscular Hemoglobin 30.0 PG (27.0-31.0) Mean Corpuscular Hemoglobin Concent 32.1 G/DL (32.0-36.0) Red Cell Distribution Width 14.7 % (11.6-14.8) Platelet Count 124 K/UL (150-450) Mean Platelet Volume 7.0 FL (6.5-10.1) Neutrophils (%) (Auto) % (45.0-75.0) Lymphocytes (%) (Auto) % (20.0-45.0) Monocytes (%) (Auto) % (1.0-10.0) Eosinophils (%) (Auto) % (0.0-3.0) Basophils (%) (Auto) % (0.0-2.0) Height (Feet): 5 Height (Inches): 2.00 Weight (Pounds): 138 Objective Physical Exam Vitals: reviewed, abnormal - Interpreted as low by me General: GCS 15 - Sometimes slightly confused, non-toxic, mild distress Head: normocephalic, moist mucus membranes Neck: supple Respiratory: no retraction, no accessory muscle use, respiratory distress - Minimal with tachypnea, crackles Cardiovascular: regular rate, rhythm, no edema Gastrointestinal: normal inspection, non tender, soft Genitourinary: no CVA tenderness Musculoskeletal: back normal Neurologic: alert, oriented x3, grossly normal Psychiatric: mood/affect normal - sometimes confused Skin: no rash, warm/dry Jj Swann MD Jun 29, 2020 06:44
[2020-06-29 06:45] LABS: ANION GAP 4 mmol/L (5-15); BLOOD UREA NITROGEN 23 mg/dL (7-18); CALCIUM 7.8 MG/DL (8.5-10.1); CARBON DIOXIDE 33 MMOL/L (21-32); CHLORIDE 109 MMOL/L (98-107); CREATININE 0.5 MG/DL (0.55-1.30); POTASSIUM 3.4 MMOL/L (3.5-5.1); SODIUM 146 MMOL/L (136-145)
--- NOTE | 2020-06-29 07:05 | NUR ---
NURSE HAND-OFF REPORT: Latest Vital Signs: Temperature 99.3 , Pulse 91 , B/P 136 /61 , Respiratory Rate 30 , O2 SAT 93 , Mechanical Ventilator, O2 Flow Rate . Vital Sign Comment: EKG Rhythm: Sinus Rhythm Rhythm change?: N MD Notified?: N - MD Response: Latest Carney Fall Score: 60 Fall Risk: High Risk Safety Measures: Call light Within Reach, Bed Alarm Zone 2, Side Rails Side Rails x3, Bed position Low and Locked. Fall Precautions: Yellow Socks Door Sign Patient Fall Education Report given to NORMAN BRASHER.
--- NOTE | 2020-06-29 07:10 | NUR ---
CASE MANAGEMENT:REVIEW 06/29/20 SI: COVID PNEUMONIA ~ INTUBATED. PNTHX W/BILATERAL CHEST TUBE 99.3 93 31 136/61 93% ON VENT SUPPORT W/100% FIO2 PLT-124 K-3.4 C02+33 BUN+23 IS: FENTANYL GTT IV LASIX QD IVF@50/HR IV ROCEPHIN Q24 IV ROCEPHIN Q24H COREG NG Q12H IV PROTONIX Q12H LOVENOX SQ Q12H : ICU STATUS DCP: FROM HOME PLAN: SUPPORTIVE CARE
[2020-06-29 07:15] LABS: ALANINE AMINOTRANSFERASE 63 U/L (12-78); ALBUMIN 1.9 G/DL (3.4-5.0); ALKALINE PHOSPHATASE 83 U/L (46-116); ASPARTATE AMINO TRANSFERASE 69 U/L (15-37); BILIRUBIN,DIRECT 0.4 MG/DL (0.0-0.3); BILIRUBIN,TOTAL 0.8 MG/DL (0.2-1.0); PHOSPHORUS 1.6 MG/DL (2.5-4.9)
--- NOTE | 2020-06-29 09:39 | NUR ---
RD ASSESSMENT & RECOMMENDATIONS SEE CARE ACTIVITY FOR COMPLETE ASSESSMENT DAILY ESTIMATED NEEDS: Needs based on Critical care 62.7kg 22-28 kcals/kg 8223-3715 total kcals 1.2-2 g protein/kg 75-125 g total protein 25-30 mL/kg 6407-4883 total fluid mLs NUTRITION DIAGNOSIS: Altered nutrition related lab values r/t clinical status as evidenced by elev BG checks (POC 226 230 128), A1C 7.1, elevated Na(153-> 146), elev BUN(34-> 23), elev Mg(3.1). CURRENT TF:Now Glucerna 1.2 goal of 55ml/hr, running @35ml/hr ENTERAL NUTRITION RECOMMENDATIONS: Glucerna 1.2 goal of 55ml/hr x24 hrs to provide 1320ml, 1584 kcal, 79g pro, 1063ml free H2O - Now intubated, rec non oral feeds as medically able. - Start Glucerna 1.2 @25ml/hr for 6 hrs, advance as tolerated 10ml/hr q4-6 hrs to goal. - Flush per MD/ HOB over 30 degrees ADDITIONAL RECOMMENDATIONS: 1) Now Intubated-->>Rec OGT/ NGT feeds 2) Maintain D5 while NPO 3) Calibrated bed scale wts 4) Lytes low, replete as able 5) On decadron, close monitoring of BG/ now off 6) Feed w/ hemodynamic stability
--- NOTE | 2020-06-29 09:42 | Infectious Diseases Prog Note ---
Assessment/Plan Assessment/Plan A; Sepsis COVID19 pneumonia Hypoxic respiratory failure Acute kidney injury, resolving Hyperglycemia, DM type 2 Bilateral pneumothorax Leukocytosis resolved Anemia P; Finished Remdesivir & Dexamethasone course May discontinue Rocephin Poor prognosis Subjective ROS Limited/Unobtainable: Yes Allergies: Coded Allergies: No Known Allergies (Unverified , 06/17/20) Objective Last 24 Hour Vital Signs Date Time Temp Pulse Resp B/P (MAP) Pulse Ox O2 Delivery O2 Flow Rate FiO2 06/29/20 07:29 89 32 90 06/29/20 07:00 90 32 129/61 (83) 96 06/29/20 07:00 32 Mechanical Ventilator 100 06/29/20 07:00 32 129/61 Mechanical Ventilator 100 06/29/20 06:03 30 136/61 Mechanical Ventilator 100 06/29/20 06:00 31 Mechanical Ventilator 100 06/29/20 06:00 31 136/61 Mechanical Ventilator 100 06/29/20 06:00 91 31 136/61 (86) 93 06/29/20 05:00 92 32 126/65 (85) 94 06/29/20 05:00 32 Mechanical Ventilator 100 06/29/20 05:00 32 126/65 Mechanical Ventilator 100 06/29/20 04:00 93 06/29/20 04:00 99.3 93 31 132/62 (85) 94 06/29/20 04:00 Mechanical Ventilator Mechanical Ventilator 06/29/20 04:00 31 Mechanical Ventilator 100 06/29/20 04:00 31 134/62 Mechanical Ventilator 100 06/29/20 04:00 100 06/29/20 03:00 94 33 155/62 (93) 95 06/29/20 03:00 33 Mechanical Ventilator 100 06/29/20 03:00 33 155/62 Mechanical Ventilator 100 06/29/20 02:30 99 33 156/72 (100) 95 06/29/20 02:00 100 33 147/64 (91) 95 06/29/20 02:00 33 Mechanical Ventilator 100 06/29/20 02:00 35 165/60 Mechanical Ventilator 100 06/29/20 01:30 100 34 156/66 (96) 93 06/29/20 01:30 34 156/66 Mechanical Ventilator 100 06/29/20 01:00 100 35 100 06/29/20 01:00 101 36 164/81 (108) 97 06/29/20 01:00 36 Mechanical Ventilator 100 06/29/20 01:00 36 164/81 Mechanical Ventilator 100 06/29/20 00:42 100 35 161/69 (99) 93 06/29/20 00:30 34 156/66 Mechanical Ventilator 100 06/29/20 00:30 99 35 178/71 (106) 94 06/29/20 00:22 97 36 177/74 (108) 94 06/29/20 00:00 36 Mechanical Ventilator 100 06/29/20 00:00 36 178/74 Mechanical Ventilator 100 06/29/20 00:00 Mechanical Ventilator Mechanical Ventilator 06/29/20 00:00 99.9 93 36 178/74 (108) 96 06/29/20 00:00 100 06/29/20 00:00 93 06/28/20 23:07 35 Mechanical Ventilator 100 06/28/20 23:00 35 Mechanical Ventilator 100 06/28/20 23:00 35 165/60 Mechanical Ventilator 100 06/28/20 22:46 96 37 144/63 (90) 91 06/28/20 22:45 96 37 91 06/28/20 22:30 94 36 181/69 (106) 71 06/28/20 22:29 95 37 165/69 (101) 85 06/28/20 22:24 94 36 173/63 (99) 98 06/28/20 22:00 35 Mechanical Ventilator 100 06/28/20 22:00 35 165/60 Mechanical Ventilator 100 06/28/20 22:00 99.4 91 35 165/60 (95) 93 06/28/20 21:00 93 37 160/67 (98) 91 06/28/20 21:00 37 Mechanical Ventilator 100 06/28/20 21:00 37 160/67 Mechanical Ventilator 100 06/28/20 20:30 100 06/28/20 20:20 93 142/64 06/28/20 20:00 Mechanical Ventilator Mechanical Ventilator 06/28/20 20:00 31 Mechanical Ventilator 90 06/28/20 20:00 31 148/64 Mechanical Ventilator 90 06/28/20 20:00 93 31 148/64 (92) 82 06/28/20 20:00 90 06/28/20 19:58 92 06/28/20 19:30 93 37 100 06/28/20 19:00 30 Mechanical Ventilator 90 06/28/20 19:00 30 151/64 Mechanical Ventilator 90 06/28/20 19:00 98.5 88 30 151/64 (93) 83 06/28/20 18:45 86 29 170/70 (103) 92 06/28/20 18:30 84 28 162/66 (98) 88 06/28/20 18:19 85 29 168/61 (96) 06/28/20 18:15 92 29 178/65 (102) 06/28/20 18:00 83 27 151/67 (95) 88 06/28/20 18:00 27 Mechanical Ventilator 100 06/28/20 18:00 27 178/66 Mechanical Ventilator 100 06/28/20 17:45 82 27 152/60 (90) 88 06/28/20 17:30 80 27 134/60 (84) 88 06/28/20 17:15 80 27 127/64 (85) 88 06/28/20 17:00 26 Mechanical Ventilator 100 06/28/20 17:00 26 127/64 Mechanical Ventilator 100 06/28/20 17:00 79 26 123/61 (81) 88 06/28/20 16:45 79 26 122/59 (80) 88 06/28/20 16:30 78 26 119/59 (79) 90 06/28/20 16:15 80 26 124/58 (80) 93 06/28/20 16:04 84 27 139/60 (86) 99 06/28/20 16:00 Mechanical Ventilator Mechanical Ventilator 06/28/20 16:00 78 06/28/20 16:00 98.2 83 25 171/119 (136) 89 06/28/20 16:00 26 Mechanical Ventilator 100 06/28/20 16:00 26 139/60 Mechanical Ventilator 100 06/28/20 16:00 80 06/28/20 15:45 76 26 136/64 (88) 91 06/28/20 15:30 73 26 136/63 (87) 87 06/28/20 15:15 74 26 133/66 (88) 88 06/28/20 15:05 74 25 80 06/28/20 15:00 73 25 139/66 (90) 88 06/28/20 15:00 26 Mechanical Ventilator 100 06/28/20 15:00 26 133/66 Mechanical Ventilator 100 06/28/20 14:45 72 28 141/71 (94) 89 06/28/20 14:30 72 25 130/65 (86) 90 06/28/20 14:15 71 24 125/62 (83) 91 06/28/20 14:00 24 Mechanical Ventilator 100 06/28/20 14:00 24 125/62 Mechanical Ventilator 100 06/28/20 14:00 71 24 124/62 (82) 91 06/28/20 13:45 72 25 124/62 (82) 91 06/28/20 13:30 70 25 125/63 (83) 90 06/28/20 13:15 71 26 124/62 (82) 89 06/28/20 13:00 71 26 124/62 (82) 89 06/28/20 13:00 25 Mechanical Ventilator 100 06/28/20 13:00 25 124/62 Mechanical Ventilator 100 06/28/20 13:00 75 27 132/66 (88) 88 06/28/20 12:30 69 25 119/62 (81) 90 06/28/20 12:30 77 27 148/71 (96) 91 06/28/20 12:29 24 120/58 Mechanical Ventilator 100 06/28/20 12:00 97.7 73 25 122/59 (80) 89 06/28/20 12:00 80 06/28/20 12:00 70 24 120/58 (78) 91 06/28/20 12:00 Mechanical Ventilator Mechanical Ventilator 06/28/20 12:00 26 Mechanical Ventilator 100 06/28/20 12:00 26 120/58 Mechanical Ventilator 100 06/28/20 12:00 70 06/28/20 11:45 74 23 124/62 (82) 82 06/28/20 11:30 75 24 124/62 (82) 95 06/28/20 11:30 78 23 121/57 (78) 100 06/28/20 11:15 83 23 136/65 (88) 81 06/28/20 11:12 78 23 80 06/28/20 11:00 85 22 148/64 (92) 94 06/28/20 11:00 23 Mechanical Ventilator 100 06/28/20 11:00 23 136/65 Mechanical Ventilator 100 06/28/20 11:00 83 23 136/65 (88) 95 06/28/20 10:45 84 22 150/57 (88) 90 06/28/20 10:30 81 21 145/59 (87) 91 06/28/20 10:29 83 157/61 06/28/20 10:15 81 22 157/61 (93) 91 06/28/20 10:00 22 Mechanical Ventilator 100 06/28/20 10:00 22 157/61 Mechanical Ventilator 100 06/28/20 10:00 82 21 157/61 (93) 91 06/28/20 09:45 82 21 142/64 (90) 90 Height (Feet): 5 Height (Inches): 2.00 Weight (Pounds): 138 HEENT: other - orally intubated Respiratory/Chest: other - on ventilator , FIO2=90%, bilateral chest tubes Cardiovascular: normal rate Abdomen: soft, non tender Neurologic/Psychiatric: other - sedated Laboratory Tests Test 06/29/20 05:05 White Blood Count 10.1 K/UL (4.8-10.8) Red Blood Count 3.80 M/UL (4.20-5.40) L Hemoglobin 11.4 G/DL (12.0-16.0) L Hematocrit 35.6 % (37.0-47.0) L Mean Corpuscular Volume 94 FL (80-99) Mean Corpuscular Hemoglobin 30.0 PG (27.0-31.0) Mean Corpuscular Hemoglobin Concent 32.1 G/DL (32.0-36.0) Red Cell Distribution Width 14.7 % (11.6-14.8) Platelet Count 124 K/UL (150-450) L Mean Platelet Volume 7.0 FL (6.5-10.1) Neutrophils (%) (Auto) % (45.0-75.0) Lymphocytes (%) (Auto) % (20.0-45.0) Monocytes (%) (Auto) % (1.0-10.0) Eosinophils (%) (Auto) % (0.0-3.0) Basophils (%) (Auto) % (0.0-2.0) Differential Total Cells Counted 100 Neutrophils % (Manual) 91 % (45-75) H Lymphocytes % (Manual) 6 % (20-45) L Monocytes % (Manual) 3 % (1-10) Eosinophils % (Manual) 0 % (0-3) Basophils % (Manual) 0 % (0-2) Band Neutrophils 0 % (0-8) Platelet Estimate Decreased L Platelet Morphology Normal Anisocytosis 1+ Sodium Level 146 MMOL/L (136-145) H Potassium Level 3.4 MMOL/L (3.5-5.1) L Chloride Level 109 MMOL/L (98-107) H Carbon Dioxide Level 33 MMOL/L (21-32) H Anion Gap 4 mmol/L (5-15) L Blood Urea Nitrogen 23 mg/dL (7-18) H Creatinine 0.5 MG/DL (0.55-1.30) L Estimat Glomerular Filtration Rate > 60 mL/min (>60) Glucose Level 118 MG/DL (74-106) H Uric Acid 2.0 MG/DL (2.6-7.2) L Calcium Level 7.8 MG/DL (8.5-10.1) L Phosphorus Level 1.6 MG/DL (2.5-4.9) L Magnesium Level 2.4 MG/DL (1.8-2.4) Total Bilirubin 0.8 MG/DL (0.2-1.0) Direct Bilirubin 0.4 MG/DL (0.0-0.3) H Aspartate Amino Transf (AST/SGOT) 69 U/L (15-37) H Alanine Aminotransferase (ALT/SGPT) 63 U/L (12-78) Alkaline Phosphatase 83 U/L (46-116) C-Reactive Protein, Quantitative 6.9 mg/dL (0.00-0.90) H Pro-B-Type Natriuretic Peptide 183 pg/mL (0-125) H Total Protein 5.3 G/DL (6.4-8.2) L Albumin 1.9 G/DL (3.4-5.0) L Current Medications Medications (Trade) Dose Ordered Sig/Maya Route PRN Reason Start Time Stop Time Status Last Admin Dose Admin Acetaminophen (Tylenol) 500 mg Q4H PRN ORAL Mild Pain (Pain Scale 1-3) 06/18/20 00:15 07/18/20 00:14 06/24/20 17:51 Acetaminophen (Tylenol) 500 mg Q4H PRN ORAL Temp >100.5 06/18/20 00:15 07/18/20 00:14 06/25/20 04:05 Carvedilol (Coreg) 6.25 mg EVERY 12 HOURS ORAL 06/22/20:00 07/22/20 20:59 06/28/20 20:20 Ceftriaxone Sodium 1 gm/ Dextrose 55 ml @ 110 mls/hr Q24H IVPB 06/29/20 11:00 07/06/20 10:59 Chlorhexidine Gluconate (Sissy-Hex 2%) 1 applic DAILY@2000 TOPIC 06/28/20 20:00 09/26/20 19:59 Dextrose (Dextrose 50%) 25 ml Q30M PRN IV Hypoglycemia 06/18/20 14:15 09/16/20 14:14 Dextrose (Dextrose 50%) 50 ml Q30M PRN IV Hypoglycemia 06/18/20 14:15 09/16/20 14:14 Docusate Sodium (Colace) 100 mg THREE TIMES A DAY NG 06/28/20 13:00 07/28/20 12:59 06/28/20 12:28 Enoxaparin Sodium (Lovenox) 40 mg DAILY SUBQ 06/21/20 09:00 09/19/20 08:59 06/28/20 10:31 Fentanyl Citrate 1000 mcg/Sodium Chloride 100 ml @ 1 mls/hr Q24H IV 06/27/20 13:00 06/29/20 12:59 06/29/20 06:03 Furosemide (Lasix) 40 mg DAILY IV 06/28/20 17:45 07/28/20 16:59 06/28/20 17:57 Haloperidol Lactate (Haldol) 10 mg Q6H PRN IM Agitation 06/23/20 11:30 08/07/20 11:29 06/23/20 11:34 Heparin Sodium/ Sodium Chloride (Heparin 1000 units/500ml Premix) 1,000 unit NEEDED PRN IV PICC LINE PLACEMENT 06/28/20 20:00 Insulin Aspart (NovoLOG) while NPO Q6HR SUBQ 06/18/20 18:00 09/16/20 17:59 06/27/20 18:14 Midazolam HCl 100 mg/Sodium Chloride 200 ml @ 2 mls/hr Q24H PRN IV sedation 06/28/20 03:00 06/30/20 02:59 06/28/20 23:07 Pantoprazole (Protonix) 40 mg EVERY 12 HOURS IVP 06/18/20 21:00 2/27/21 20:59 06/28/20 20:20 Potassium Phosphate 20 mm/ Sodium Chloride 281.6667 ml @ 46.944 m... ONCE ONCE IV 06/29/20 10:00 06/29/20 15:59 Sodium Chloride 1,000 ml @ 50 mls/hr Q20H IV 06/26/20 08:00 07/26/20 07:59 06/28/20 19:32 Raji Turpin MD Jun 29, 2020 09:42
[2020-06-29] MEDS: Midazolam HCl 50mg/10ml vial 100 MG in NS 180 ML IV PRN ×2 (09:47→23:48)
[2020-06-29] MEDS ORDERED: Potassium Phosphate 20 MM in NS 275 ML IV ONE (10:00)
--- NOTE | 2020-06-29 10:03 | Nephrology Progress Note ---
Assessment/Plan Problem List: (1) LEONARDO (acute kidney injury) (2) Dehydration (3) DMII (diabetes mellitus, type 2) (4) Pneumonia due to COVID-19 virus (5) Hypoxia Assessment 70-year-old female presents with COVID-19 pneumonia and hypoxia On admission has BUN of 77 and creatinine of 1.6. Renal failure most likely prerenal and dehydration with possible underlying chronic kidney disease Patient has elevated inflammatory markers Hypoalbuminemia Electrolyte abnormalities Hyperglycemia Plan June 29: Full code. Intubated. Bilateral chest tube. Unstable pulmonary status. ABG ordered. Electrolyte imbalance addressed. Discussed with NORMAN Montalvo. June 28: Labs reviewed. Abnormal electrolytes addressed. Patient remains full code. Continue per consultants. June 27: No chemistry panel done today. Remains full code. Medication list reviewed. Continue per consultants. Will monitor electrolytes and renal panel in a.m. June 26: Status quo. Remains full code. Labs reviewed. Main IV changed to normal saline 50 cc an hour. Continue per consultants and pulmonary. June 25: Remains intubated. Has bilateral chest tube. Full code. Labs reviewed. Abnormal electrolytes addressed. Albumin bolus given. Continue to monitor renal parameters. Poor prognosis. June 24: Patient in ICU. Intubated. Has bilateral chest tube. Labs reviewed. Renal parameters stable. Low phosphorus addressed. Continue per consultants. Full code. Poor prognosis. June 23: Patient in ICU. Intubated. Due for insertion of a chest tube. Has pneumothorax. Renal parameters are stable. Serum sodium rising. Will adjust IV fluid. Continue per consultants. Patient full code. Prognosis poor. June 22: Labs reviewed. Remains on BiPAP which is not changed to high flow oxygen due to pneumothorax found on chest x-ray. Serum sodium 155. Continues on D5W. Electrolytes within normal limits. Check 2D echocardiogram. Coreg for blood pressure and heart rate. June 21: Status quo. On BiPAP. Full code. Serum sodium 153. Continue D5W. Continue to monitor electrolytes. Continue per consultants. June 20: Patient full code. On BiPAP. Labs reviewed. Serum sodium rising. Will increase D5W to 75 cc an hour. Continue to monitor electrolytes. June 19: IV changed to D5W. Monitor blood sugar. Monitor electrolytes. Medication list reviewed. Patient is being treated for COVID-19 pneumonia. Patient is full code. Previously Pulmonary support IV antibiotics Slow hydration Avoid nephrotoxic Monitor renal parameters Per orders Subjective ROS Limited/Unobtainable: Yes Objective Objective Last 24 Hour Vital Signs Date Time Temp Pulse Resp B/P (MAP) Pulse Ox O2 Delivery O2 Flow Rate FiO2 06/29/20 09:47 32 Mechanical Ventilator 100 06/29/20 07:29 89 32 90 06/29/20 07:00 90 32 129/61 (83) 96 06/29/20 07:00 32 Mechanical Ventilator 100 06/29/20 07:00 32 129/61 Mechanical Ventilator 100 06/29/20 06:03 30 136/61 Mechanical Ventilator 100 06/29/20 06:00 31 Mechanical Ventilator 100 06/29/20 06:00 31 136/61 Mechanical Ventilator 100 06/29/20 06:00 91 31 136/61 (86) 93 06/29/20 05:00 92 32 126/65 (85) 94 06/29/20 05:00 32 Mechanical Ventilator 100 06/29/20 05:00 32 126/65 Mechanical Ventilator 100 06/29/20 04:00 93 06/29/20 04:00 99.3 93 31 132/62 (85) 94 06/29/20 04:00 Mechanical Ventilator Mechanical Ventilator 06/29/20 04:00 31 Mechanical Ventilator 100 06/29/20 04:00 31 134/62 Mechanical Ventilator 100 06/29/20 04:00 100 06/29/20 03:00 94 33 155/62 (93) 95 06/29/20 03:00 33 Mechanical Ventilator 100 06/29/20 03:00 33 155/62 Mechanical Ventilator 100 06/29/20 02:30 99 33 156/72 (100) 95 06/29/20 02:00 100 33 147/64 (91) 95 06/29/20 02:00 33 Mechanical Ventilator 100 06/29/20 02:00 35 165/60 Mechanical Ventilator 100 06/29/20 01:30 100 34 156/66 (96) 93 06/29/20 01:30 34 156/66 Mechanical Ventilator 100 06/29/20 01:00 100 35 100 06/29/20 01:00 101 36 164/81 (108) 97 06/29/20 01:00 36 Mechanical Ventilator 100 06/29/20 01:00 36 164/81 Mechanical Ventilator 100 06/29/20 00:42 100 35 161/69 (99) 93 06/29/20 00:30 34 156/66 Mechanical Ventilator 100 06/29/20 00:30 99 35 178/71 (106) 94 06/29/20 00:22 97 36 177/74 (108) 94 06/29/20 00:00 36 Mechanical Ventilator 100 06/29/20 00:00 36 178/74 Mechanical Ventilator 100 06/29/20 00:00 Mechanical Ventilator Mechanical Ventilator 06/29/20 00:00 99.9 93 36 178/74 (108) 96 06/29/20 00:00 100 06/29/20 00:00 93 06/28/20 23:07 35 Mechanical Ventilator 100 06/28/20 23:00 35 Mechanical Ventilator 100 06/28/20 23:00 35 165/60 Mechanical Ventilator 100 06/28/20 22:46 96 37 144/63 (90) 91 06/28/20 22:45 96 37 91 06/28/20 22:30 94 36 181/69 (106) 71 06/28/20 22:29 95 37 165/69 (101) 85 06/28/20 22:24 94 36 173/63 (99) 98 06/28/20 22:00 35 Mechanical Ventilator 100 06/28/20 22:00 35 165/60 Mechanical Ventilator 100 06/28/20 22:00 99.4 91 35 165/60 (95) 93 06/28/20 21:00 93 37 160/67 (98) 91 06/28/20 21:00 37 Mechanical Ventilator 100 06/28/20 21:00 37 160/67 Mechanical Ventilator 100 06/28/20 20:30 100 06/28/20 20:20 93 142/64 06/28/20 20:00 Mechanical Ventilator Mechanical Ventilator 06/28/20 20:00 31 Mechanical Ventilator 90 06/28/20 20:00 31 148/64 Mechanical Ventilator 90 06/28/20 20:00 93 31 148/64 (92) 82 06/28/20 20:00 90 06/28/20 19:58 92 06/28/20 19:30 93 37 100 06/28/20 19:00 30 Mechanical Ventilator 90 06/28/20 19:00 30 151/64 Mechanical Ventilator 90 06/28/20 19:00 98.5 88 30 151/64 (93) 83 06/28/20 18:45 86 29 170/70 (103) 92 06/28/20 18:30 84 28 162/66 (98) 88 06/28/20 18:19 85 29 168/61 (96) 06/28/20 18:15 92 29 178/65 (102) 06/28/20 18:00 83 27 151/67 (95) 88 06/28/20 18:00 27 Mechanical Ventilator 100 06/28/20 18:00 27 178/66 Mechanical Ventilator 100 06/28/20 17:45 82 27 152/60 (90) 88 06/28/20 17:30 80 27 134/60 (84) 88 06/28/20 17:15 80 27 127/64 (85) 88 06/28/20 17:00 26 Mechanical Ventilator 100 06/28/20 17:00 26 127/64 Mechanical Ventilator 100 06/28/20 17:00 79 26 123/61 (81) 88 06/28/20 16:45 79 26 122/59 (80) 88 06/28/20 16:30 78 26 119/59 (79) 90 06/28/20 16:15 80 26 124/58 (80) 93 06/28/20 16:04 84 27 139/60 (86) 99 06/28/20 16:00 Mechanical Ventilator Mechanical Ventilator 06/28/20 16:00 78 06/28/20 16:00 98.2 83 25 171/119 (136) 89 06/28/20 16:00 26 Mechanical Ventilator 100 06/28/20 16:00 26 139/60 Mechanical Ventilator 100 06/28/20 16:00 80 06/28/20 15:45 76 26 136/64 (88) 91 06/28/20 15:30 73 26 136/63 (87) 87 06/28/20 15:15 74 26 133/66 (88) 88 06/28/20 15:05 74 25 80 06/28/20 15:00 73 25 139/66 (90) 88 06/28/20 15:00 26 Mechanical Ventilator 100 06/28/20 15:00 26 133/66 Mechanical Ventilator 100 06/28/20 14:45 72 28 141/71 (94) 89 06/28/20 14:30 72 25 130/65 (86) 90 06/28/20 14:15 71 24 125/62 (83) 91 06/28/20 14:00 24 Mechanical Ventilator 100 06/28/20 14:00 24 125/62 Mechanical Ventilator 100 06/28/20 14:00 71 24 124/62 (82) 91 06/28/20 13:45 72 25 124/62 (82) 91 06/28/20 13:30 70 25 125/63 (83) 90 06/28/20 13:15 71 26 124/62 (82) 89 06/28/20 13:00 71 26 124/62 (82) 89 06/28/20 13:00 25 Mechanical Ventilator 100 06/28/20 13:00 25 124/62 Mechanical Ventilator 100 06/28/20 13:00 75 27 132/66 (88) 88 06/28/20 12:30 69 25 119/62 (81) 90 06/28/20 12:30 77 27 148/71 (96) 91 06/28/20 12:29 24 120/58 Mechanical Ventilator 100 06/28/20 12:00 97.7 73 25 122/59 (80) 89 06/28/20 12:00 80 06/28/20 12:00 70 24 120/58 (78) 91 06/28/20 12:00 Mechanical Ventilator Mechanical Ventilator 06/28/20 12:00 26 Mechanical Ventilator 100 06/28/20 12:00 26 120/58 Mechanical Ventilator 100 06/28/20 12:00 70 06/28/20 11:45 74 23 124/62 (82) 82 06/28/20 11:30 75 24 124/62 (82) 95 06/28/20 11:30 78 23 121/57 (78) 100 06/28/20 11:15 83 23 136/65 (88) 81 06/28/20 11:12 78 23 80 06/28/20 11:00 85 22 148/64 (92) 94 06/28/20 11:00 23 Mechanical Ventilator 100 06/28/20 11:00 23 136/65 Mechanical Ventilator 100 06/28/20 11:00 83 23 136/65 (88) 95 06/28/20 10:45 84 22 150/57 (88) 90 06/28/20 10:30 81 21 145/59 (87) 91 06/28/20 10:29 83 157/61 06/28/20 10:15 81 22 157/61 (93) 91 Intake and Output 06/28/20 06/29/20 19:00 07:00 Intake Total 835 ml 1161.0 ml Output Total 1975 ml 1700 ml Balance -1140 ml -539.0 ml IV Total 835 ml 841.0 ml Tube Feeding 280 ml Other 40 ml Output Urine Total 1890 ml 1665 ml Chest Tube Drainage Total 85 ml 35 ml # Bowel Movements 1 Current Medications Medications (Trade) Dose Ordered Sig/Maya Route PRN Reason Start Time Stop Time Status Last Admin Dose Admin Acetaminophen (Tylenol) 500 mg Q4H PRN ORAL Mild Pain (Pain Scale 1-3) 06/18/20 00:15 07/18/20 00:14 06/24/20 17:51 Acetaminophen (Tylenol) 500 mg Q4H PRN ORAL Temp >100.5 06/18/20 00:15 07/18/20 00:14 06/25/20 04:05 Carvedilol (Coreg) 6.25 mg EVERY 12 HOURS ORAL 06/22/20 21:00 07/22/20 20:59 06/28/20 20:20 Chlorhexidine Gluconate (Sissy-Hex 2%) 1 applic DAILY@2000 TOPIC 06/28/20 20:00 09/26/20 19:59 Dextrose (Dextrose 50%) 25 ml Q30M PRN IV Hypoglycemia 06/18/20 14:15 09/16/20 14:14 Dextrose (Dextrose 50%) 50 ml Q30M PRN IV Hypoglycemia 06/18/20 14:15 09/16/20 14:14 Docusate Sodium (Colace) 100 mg THREE TIMES A DAY NG 06/28/20 13:00 07/28/20 12:59 06/28/20 12:28 Enoxaparin Sodium (Lovenox) 40 mg DAILY SUBQ 06/21/20 09:00 09/19/20 08:59 06/28/20 10:31 Fentanyl Citrate 1000 mcg/Sodium Chloride 100 ml @ 1 mls/hr Q24H IV 06/27/20 13:00 06/29/20 12:59 06/29/20 06:03 Furosemide (Lasix) 40 mg DAILY IV 06/28/20 17:45 07/28/20 16:59 06/28/20 17:57 Haloperidol Lactate (Haldol) 10 mg Q6H PRN IM Agitation 06/23/20 11:30 08/07/20 11:29 06/23/20 11:34 Heparin Sodium/ Sodium Chloride (Heparin 1000 units/500ml Premix) 1,000 unit NEEDED PRN IV PICC LINE PLACEMENT 06/28/20 20:00 Insulin Aspart (NovoLOG) while NPO Q6HR SUBQ 06/18/20 18:00 09/16/20 17:59 06/27/20 18:14 Midazolam HCl 100 mg/Sodium Chloride 200 ml @ 2 mls/hr Q24H PRN IV sedation 06/28/20 03:00 06/30/20 02:59 06/29/20 09:47 Pantoprazole (Protonix) 40 mg EVERY 12 HOURS IVP 06/18/20 21:00 07/18/20 20:59 06/28/20 20:20 Potassium Phosphate 20 mm/ Sodium Chloride 281.6667 ml @ 46.944 m... ONCE ONCE IV 06/29/20 10:00 06/29/20 15:59 Sodium Chloride 1,000 ml @ 50 mls/hr Q20H IV 06/26/20 08:00 07/26/20 07:59 06/28/20 19:32 Laboratory Tests 06/29/20 05:05: White Blood Count 10.1, Red Blood Count 3.80L, Hemoglobin 11.4L, Hematocrit 35.6L, Mean Corpuscular Volume 94, Mean Corpuscular Hemoglobin 30.0, Mean Corpuscular Hemoglobin Concent 32.1, Red Cell Distribution Width 14.7, Platelet Count 124L, Mean Platelet Volume 7.0, Neutrophils (%) (Auto) , Lymphocytes (%) (Auto) , Monocytes (%) (Auto) , Eosinophils (%) (Auto) , Basophils (%) (Auto) , Differential Total Cells Counted 100, Neutrophils % (Manual) 91H, Lymphocytes % (Manual) 6L, Monocytes % (Manual) 3, Eosinophils % (Manual) 0, Basophils % (Manual) 0, Band Neutrophils 0, Platelet Estimate DecreasedL, Platelet Morphology Normal, Anisocytosis 1+, Sodium Level 146H, Potassium Level 3.4L, Chloride Level 109H, Carbon Dioxide Level 33H, Anion Gap 4L, Blood Urea Nitrogen 23H, Creatinine 0.5L, Estimat Glomerular Filtration Rate > 60, Glucose Level 118H, Uric Acid 2.0L, Calcium Level 7.8L, Phosphorus Level 1.6L, Magnesium Level 2.4, Total Bilirubin 0.8, Direct Bilirubin 0.4H, Aspartate Amino Transf (AST/SGOT) 69H, Alanine Aminotransferase (ALT/SGPT) 63, Alkaline Phosphatase 83, C-Reactive Protein, Quantitative 6.9H, Pro-B-Type Natriuretic Peptide 183H, Total Protein 5.3L, Albumin 1.9L Height (Feet): 5 Height (Inches): 2.00 Weight (Pounds): 138 General Appearance: moderate distress EENT: other - Intubated on ventilator tachypneic Cardiovascular: tachycardia Respiratory/Chest: decreased breath sounds, other - Bilateral chest tube Abdomen: distended Raza De Jesus MD Jun 29, 2020 10:03
[2020-06-29] MEDS ORDERED: cefTRIAXone 1 GM in D5W 55 ML IVPB SCH (11:00)
[2020-06-29] MEDS: Enoxaparin 40mg Inj SUBQ SCH (11:10)
[2020-06-29] MEDS: Vitamin D 1000 units Tab GT SCH (11:10)
[2020-06-29] MEDS: Carvedilol 6.25mg Tab ORAL SCH ×2 (11:11→20:42)
[2020-06-29] MEDS: Docusate 100mg/10ml Liq NG SCH ×3 (11:11→18:00)
[2020-06-29] MEDS: Pantoprazole Inj IVP SCH ×2 (11:11→20:42)
--- NOTE | 2020-06-29 12:19 | Cardiac Electrophysiology PN ---
Assessment/Plan Assessment/Plan 1. Respiratory failure likely due to COVID pneumonia. Intubated on 90% Fio2. Echocardiogram showed ejection fraction within normal range. 2. Bilateral pneumothoraces. S/P bilateral chest tube placement with around 100 cc drainage 3. Troponin elevation. Levels are low and flat could be demand ischemia vs Renal failure EKG shows sinus tachycardia at 110 beats per minute. 4. Hypernatremia with sodium of 155. Resolved 5. Volume overload. On Lasix 40 iv daily 6. COVID-19 positive and is in isolation, on dexamethasone, completed Remdesivir. 7. Hypertension, on Coreg 6.25 mg b.i.d. and Lasix DW RN Subjective Subjective Intubated in ICU on Fentanyl drip and Versed drip. Has bilateral chest tube with around [address] drainage. SQ emphysema getting better. On 100% Fio2, PEEP 8 . Off pressors Diuresed 4 liters on iv Lasix Objective Last 24 Hour Vital Signs Date Time Temp Pulse Resp B/P (MAP) Pulse Ox O2 Delivery O2 Flow Rate FiO2 06/29/20 11:17 89 33 100 06/29/20 11:11 90 131/63 06/29/20 09:47 32 Mechanical Ventilator 100 06/29/20 07:29 89 32 90 06/29/20 07:00 90 32 129/61 (83) 96 06/29/20 07:00 32 Mechanical Ventilator 100 06/29/20 07:00 32 129/61 Mechanical Ventilator 100 06/29/20 06:03 30 136/61 Mechanical Ventilator 100 06/29/20 06:00 31 Mechanical Ventilator 100 06/29/20 06:00 31 136/61 Mechanical Ventilator 100 06/29/20 06:00 91 31 136/61 (86) 93 06/29/20 05:00 92 32 126/65 (85) 94 06/29/20 05:00 32 Mechanical Ventilator 100 06/29/20 05:00 32 126/65 Mechanical Ventilator 100 06/29/20 04:00 93 06/29/20 04:00 99.3 93 31 132/62 (85) 94 06/29/20 04:00 Mechanical Ventilator Mechanical Ventilator 06/29/20 04:00 31 Mechanical Ventilator 100 06/29/20 04:00 31 134/62 Mechanical Ventilator 100 06/29/20 04:00 100 06/29/20 03:00 94 33 155/62 (93) 95 06/29/20 03:00 33 Mechanical Ventilator 100 06/29/20 03:00 33 155/62 Mechanical Ventilator 100 06/29/20 02:30 99 33 156/72 (100) 95 06/29/20 02:00 100 33 147/64 (91) 95 06/29/20 02:00 33 Mechanical Ventilator 100 06/29/20 02:00 35 165/60 Mechanical Ventilator 100 06/29/20 01:30 100 34 156/66 (96) 93 06/29/20 01:30 34 156/66 Mechanical Ventilator 100 06/29/20 01:00 100 35 100 06/29/20 01:00 101 36 164/81 (108) 97 06/29/20 01:00 36 Mechanical Ventilator 100 06/29/20 01:00 36 164/81 Mechanical Ventilator 100 06/29/20 00:42 100 35 161/69 (99) 93 06/29/20 00:30 34 156/66 Mechanical Ventilator 100 06/29/20 00:30 99 35 178/71 (106) 94 06/29/20 00:22 97 36 177/74 (108) 94 06/29/20 00:00 36 Mechanical Ventilator 100 06/29/20 00:00 36 178/74 Mechanical Ventilator 100 06/29/20 00:00 Mechanical Ventilator Mechanical Ventilator 06/29/20 00:00 99.9 93 36 178/74 (108) 96 06/29/20 00:00 100 06/29/20 00:00 93 06/28/20 23:07 35 Mechanical Ventilator 100 06/28/20 23:00 35 Mechanical Ventilator 100 06/28/20 23:00 35 165/60 Mechanical Ventilator 100 06/28/20 22:46 96 37 144/63 (90) 91 06/28/20 22:45 96 37 91 06/28/20 22:30 94 36 181/69 (106) 71 06/28/20 22:29 95 37 165/69 (101) 85 06/28/20 22:24 94 36 173/63 (99) 98 06/28/20 22:00 35 Mechanical Ventilator 100 06/28/20 22:00 35 165/60 Mechanical Ventilator 100 06/28/20 22:00 99.4 91 35 165/60 (95) 93 06/28/20 21:00 93 37 160/67 (98) 91 06/28/20 21:00 37 Mechanical Ventilator 100 06/28/20 21:00 37 160/67 Mechanical Ventilator 100 06/28/20 20:30 100 06/28/20 20:20 93 142/64 06/28/20 20:00 Mechanical Ventilator Mechanical Ventilator 06/28/20 20:00 31 Mechanical Ventilator 90 06/28/20 20:00 31 148/64 Mechanical Ventilator 90 06/28/20 20:00 93 31 148/64 (92) 82 06/28/20 20:00 90 06/28/20 19:58 92 06/28/20 19:30 93 37 100 06/28/20 19:00 30 Mechanical Ventilator 90 06/28/20 19:00 30 151/64 Mechanical Ventilator 90 06/28/20 19:00 98.5 88 30 151/64 (93) 83 06/28/20 18:45 86 29 170/70 (103) 92 06/28/20 18:30 84 28 162/66 (98) 88 06/28/20 18:19 85 29 168/61 (96) 06/28/20 18:15 92 29 178/65 (102) 06/28/20 18:00 83 27 151/67 (95) 88 06/28/20 18:00 27 Mechanical Ventilator 100 06/28/20 18:00 27 178/66 Mechanical Ventilator 100 06/28/20 17:45 82 27 152/60 (90) 88 06/28/20 17:30 80 27 134/60 (84) 88 06/28/20 17:15 80 27 127/64 (85) 88 06/28/20 17:00 26 Mechanical Ventilator 100 06/28/20 17:00 26 127/64 Mechanical Ventilator 100 06/28/20 17:00 79 26 123/61 (81) 88 06/28/20 16:45 79 26 122/59 (80) 88 06/28/20 16:30 78 26 119/59 (79) 90 06/28/20 16:15 80 26 124/58 (80) 93 06/28/20 16:04 84 27 139/60 (86) 99 06/28/20 16:00 Mechanical Ventilator Mechanical Ventilator 06/28/20 16:00 78 06/28/20 16:00 98.2 83 25 171/119 (136) 89 06/28/20 16:00 26 Mechanical Ventilator 100 06/28/20 16:00 26 139/60 Mechanical Ventilator 100 06/28/20 16:00 80 06/28/20 15:45 76 26 136/64 (88) 91 06/28/20 15:30 73 26 136/63 (87) 87 06/28/20 15:15 74 26 133/66 (88) 88 06/28/20 15:05 74 25 80 06/28/20 15:00 73 25 139/66 (90) 88 06/28/20 15:00 26 Mechanical Ventilator 100 06/28/20 15:00 26 133/66 Mechanical Ventilator 100 06/28/20 14:45 72 28 141/71 (94) 89 06/28/20 14:30 72 25 130/65 (86) 90 06/28/20 14:15 71 24 125/62 (83) 91 06/28/20 14:00 24 Mechanical Ventilator 100 06/28/20 14:00 24 125/62 Mechanical Ventilator 100 06/28/20 14:00 71 24 124/62 (82) 91 06/28/20 13:45 72 25 124/62 (82) 91 06/28/20 13:30 70 25 125/63 (83) 90 06/28/20 13:15 71 26 124/62 (82) 89 06/28/20 13:00 71 26 124/62 (82) 89 06/28/20 13:00 25 Mechanical Ventilator 100 06/28/20 13:00 25 124/62 Mechanical Ventilator 100 06/28/20 13:00 75 27 132/66 (88) 88 06/28/20 12:30 69 25 119/62 (81) 90 06/28/20 12:30 77 27 148/71 (96) 91 06/28/20 12:29 24 120/58 Mechanical Ventilator 100 Intake and Output 06/28/20 06/29/20 19:00 07:00 Intake Total 835 ml 1161.0 ml Output Total 1975 ml 1700 ml Balance -1140 ml -539.0 ml IV Total 835 ml 841.0 ml Tube Feeding 280 ml Other 40 ml Output Urine Total 1890 ml 1665 ml Chest Tube Drainage Total 85 ml 35 ml # Bowel Movements 1 Laboratory Tests Test 06/29/20 05:05 White Blood Count 10.1 K/UL (4.8-10.8) Red Blood Count 3.80 M/UL (4.20-5.40) L Hemoglobin 11.4 G/DL (12.0-16.0) L Hematocrit 35.6 % (37.0-47.0) L Mean Corpuscular Volume 94 FL (80-99) Mean Corpuscular Hemoglobin 30.0 PG (27.0-31.0) Mean Corpuscular Hemoglobin Concent 32.1 G/DL (32.0-36.0) Red Cell Distribution Width 14.7 % (11.6-14.8) Platelet Count 124 K/UL (150-450) L Mean Platelet Volume 7.0 FL (6.5-10.1) Neutrophils (%) (Auto) % (45.0-75.0) Lymphocytes (%) (Auto) % (20.0-45.0) Monocytes (%) (Auto) % (1.0-10.0) Eosinophils (%) (Auto) % (0.0-3.0) Basophils (%) (Auto) % (0.0-2.0) Differential Total Cells Counted 100 Neutrophils % (Manual) 91 % (45-75) H Lymphocytes % (Manual) 6 % (20-45) L Monocytes % (Manual) 3 % (1-10) Eosinophils % (Manual) 0 % (0-3) Basophils % (Manual) 0 % (0-2) Band Neutrophils 0 % (0-8) Platelet Estimate Decreased L Platelet Morphology Normal Anisocytosis 1+ Sodium Level 146 MMOL/L (136-145) H Potassium Level 3.4 MMOL/L (3.5-5.1) L Chloride Level 109 MMOL/L (98-107) H Carbon Dioxide Level 33 MMOL/L (21-32) H Anion Gap 4 mmol/L (5-15) L Blood Urea Nitrogen 23 mg/dL (7-18) H Creatinine 0.5 MG/DL (0.55-1.30) L Estimat Glomerular Filtration Rate > 60 mL/min (>60) Glucose Level 118 MG/DL (74-106) H Uric Acid 2.0 MG/DL (2.6-7.2) L Calcium Level 7.8 MG/DL (8.5-10.1) L Phosphorus Level 1.6 MG/DL (2.5-4.9) L Magnesium Level 2.4 MG/DL (1.8-2.4) Total Bilirubin 0.8 MG/DL (0.2-1.0) Direct Bilirubin 0.4 MG/DL (0.0-0.3) H Aspartate Amino Transf (AST/SGOT) 69 U/L (15-37) H Alanine Aminotransferase (ALT/SGPT) 63 U/L (12-78) Alkaline Phosphatase 83 U/L (46-116) C-Reactive Protein, Quantitative 6.9 mg/dL (0.00-0.90) H Pro-B-Type Natriuretic Peptide 183 pg/mL (0-125) H Total Protein 5.3 G/DL (6.4-8.2) L Albumin 1.9 G/DL (3.4-5.0) L Objective HEAD AND NECK: No JVD.Orally intubated with SQ emphysema LUNGS: Coarse rhonchi bilaterally. Bilateral chest tubes in. CARDIOVASCULAR: Regular S1 and S2 and tachycardic. ABDOMEN: Soft. EXTREMITIES: No pitting edema. Maxwell Carreon MD Jun 29, 2020 12:19
[2020-06-29] MEDS ORDERED: Heparin1,000 units/500ml Premix(Conc:2 units/ml) IV PRN (12:52)
[2020-06-29] MEDS ORDERED: Lidocaine 1% Plain 30 ml INJ PRN (12:52)
--- NOTE | 2020-06-29 13:30 | Pulmonology Progress Note ---
Subjective ROS Limited/Unobtainable: Yes Interval Events: Remains intubated; bilateral chest tubes in place Constitutional: Denies: fever HEENT: Repors: no symptoms Respiratory: Reports: shortness of breath Cardiovascular: Reports: no symptoms Gastrointestinal/Abdominal: Reports: no symptoms Allergies: Coded Allergies: No Known Allergies (Unverified , 06/17/20) All Systems: reviewed and negative except above Objective Last 24 Hour Vital Signs Date Time Temp Pulse Resp B/P (MAP) Pulse Ox O2 Delivery O2 Flow Rate FiO2 06/29/20 11:17 89 33 100 06/29/20 11:11 90 131/63 06/29/20 09:47 32 Mechanical Ventilator 100 06/29/20 07:29 89 32 90 06/29/20 07:00 90 32 129/61 (83) 96 06/29/20 07:00 32 Mechanical Ventilator 100 06/29/20 07:00 32 129/61 Mechanical Ventilator 100 06/29/20 06:03 30 136/61 Mechanical Ventilator 100 06/29/20 06:00 31 Mechanical Ventilator 100 06/29/20 06:00 31 136/61 Mechanical Ventilator 100 06/29/20 06:00 91 31 136/61 (86) 93 06/29/20 05:00 92 32 126/65 (85) 94 06/29/20 05:00 32 Mechanical Ventilator 100 06/29/20 05:00 32 126/65 Mechanical Ventilator 100 06/29/20 04:00 93 06/29/20 04:00 99.3 93 31 132/62 (85) 94 06/29/20 04:00 Mechanical Ventilator Mechanical Ventilator 06/29/20 04:00 31 Mechanical Ventilator 100 06/29/20 04:00 31 134/62 Mechanical Ventilator 100 06/29/20 04:00 100 06/29/20 03:00 94 33 155/62 (93) 95 06/29/20 03:00 33 Mechanical Ventilator 100 06/29/20 03:00 33 155/62 Mechanical Ventilator 100 06/29/20 02:30 99 33 156/72 (100) 95 06/29/20 02:00 100 33 147/64 (91) 95 06/29/20 02:00 33 Mechanical Ventilator 100 06/29/20 02:00 35 165/60 Mechanical Ventilator 100 06/29/20 01:30 100 34 156/66 (96) 93 06/29/20 01:30 34 156/66 Mechanical Ventilator 100 06/29/20 01:00 100 35 100 06/29/20 01:00 101 36 164/81 (108) 97 06/29/20 01:00 36 Mechanical Ventilator 100 06/29/20 01:00 36 164/81 Mechanical Ventilator 100 06/29/20 00:42 100 35 161/69 (99) 93 06/29/20 00:30 34 156/66 Mechanical Ventilator 100 06/29/20 00:30 99 35 178/71 (106) 94 06/29/20 00:22 97 36 177/74 (108) 94 06/29/20 00:00 36 Mechanical Ventilator 100 06/29/20 00:00 36 178/74 Mechanical Ventilator 100 06/29/20 00:00 Mechanical Ventilator Mechanical Ventilator 06/29/20 00:00 99.9 93 36 178/74 (108) 96 06/29/20 00:00 100 06/29/20 00:00 93 06/28/20 23:07 35 Mechanical Ventilator 100 06/28/20 23:00 35 Mechanical Ventilator 100 06/28/20 23:00 35 165/60 Mechanical Ventilator 100 06/28/20 22:46 96 37 144/63 (90) 91 06/28/20 22:45 96 37 91 06/28/20 22:30 94 36 181/69 (106) 71 06/28/20 22:29 95 37 165/69 (101) 85 06/28/20 22:24 94 36 173/63 (99) 98 06/28/20 22:00 35 Mechanical Ventilator 100 06/28/20 22:00 35 165/60 Mechanical Ventilator 100 06/28/20 22:00 99.4 91 35 165/60 (95) 93 06/28/20 21:00 93 37 160/67 (98) 91 06/28/20 21:00 37 Mechanical Ventilator 100 06/28/20 21:00 37 160/67 Mechanical Ventilator 100 06/28/20 20:30 100 06/28/20 20:20 93 142/64 06/28/20 20:00 Mechanical Ventilator Mechanical Ventilator 06/28/20 20:00 31 Mechanical Ventilator 90 06/28/20 20:00 31 148/64 Mechanical Ventilator 90 06/28/20 20:00 93 31 148/64 (92) 82 06/28/20 20:00 90 06/28/20 19:58 92 06/28/20 19:30 93 37 100 06/28/20 19:00 30 Mechanical Ventilator 90 06/28/20 19:00 30 151/64 Mechanical Ventilator 90 06/28/20 19:00 98.5 88 30 151/64 (93) 83 06/28/20 18:45 86 29 170/70 (103) 92 06/28/20 18:30 84 28 162/66 (98) 88 06/28/20 18:19 85 29 168/61 (96) 06/28/20 18:15 92 29 178/65 (102) 06/28/20 18:00 83 27 151/67 (95) 88 06/28/20 18:00 27 Mechanical Ventilator 100 06/28/20 18:00 27 178/66 Mechanical Ventilator 100 06/28/20 17:45 82 27 152/60 (90) 88 06/28/20 17:30 80 27 134/60 (84) 88 06/28/20 17:15 80 27 127/64 (85) 88 06/28/20 17:00 26 Mechanical Ventilator 100 06/28/20 17:00 26 127/64 Mechanical Ventilator 100 06/28/20 17:00 79 26 123/61 (81) 88 06/28/20 16:45 79 26 122/59 (80) 88 06/28/20 16:30 78 26 119/59 (79) 90 06/28/20 16:15 80 26 124/58 (80) 93 06/28/20 16:04 84 27 139/60 (86) 99 06/28/20 16:00 Mechanical Ventilator Mechanical Ventilator 06/28/20 16:00 78 06/28/20 16:00 98.2 83 25 171/119 (136) 89 06/28/20 16:00 26 Mechanical Ventilator 100 06/28/20 16:00 26 139/60 Mechanical Ventilator 100 06/28/20 16:00 80 06/28/20 15:45 76 26 136/64 (88) 91 06/28/20 15:30 73 26 136/63 (87) 87 06/28/20 15:15 74 26 133/66 (88) 88 06/28/20 15:05 74 25 80 06/28/20 15:00 73 25 139/66 (90) 88 06/28/20 15:00 26 Mechanical Ventilator 100 06/28/20 15:00 26 133/66 Mechanical Ventilator 100 06/28/20 14:45 72 28 141/71 (94) 89 06/28/20 14:30 72 25 130/65 (86) 90 06/28/20 14:15 71 24 125/62 (83) 91 06/28/20 14:00 24 Mechanical Ventilator 100 06/28/20 14:00 24 125/62 Mechanical Ventilator 100 06/28/20 14:00 71 24 124/62 (82) 91 06/28/20 13:45 72 25 124/62 (82) 91 06/28/20 13:30 70 25 125/63 (83) 90 Intake and Output 06/28/20 06/29/20 19:00 07:00 Intake Total 835 ml 1161.0 ml Output Total 1975 ml 1700 ml Balance -1140 ml -539.0 ml IV Total 835 ml 841.0 ml Tube Feeding 280 ml Other 40 ml Output Urine Total 1890 ml 1665 ml Chest Tube Drainage Total 85 ml 35 ml # Bowel Movements 1 General Appearance: no acute distress HEENT: atraumatic Respiratory: crackles/rales Cardiovascular: normal rate Abdomen: soft, non tender Laboratory Tests 06/29/20 05:05: White Blood Count 10.1, Red Blood Count 3.80L, Hemoglobin 11.4L, Hematocrit 35.6L, Mean Corpuscular Volume 94, Mean Corpuscular Hemoglobin 30.0, Mean Corpuscular Hemoglobin Concent 32.1, Red Cell Distribution Width 14.7, Platelet Count 124L, Mean Platelet Volume 7.0, Neutrophils (%) (Auto) , Lymphocytes (%) (Auto) , Monocytes (%) (Auto) , Eosinophils (%) (Auto) , Basophils (%) (Auto) , Differential Total Cells Counted 100, Neutrophils % (Manual) 91H, Lymphocytes % (Manual) 6L, Monocytes % (Manual) 3, Eosinophils % (Manual) 0, Basophils % (Manual) 0, Band Neutrophils 0, Platelet Estimate DecreasedL, Platelet Morphology Normal, Anisocytosis 1+, Sodium Level 146H, Potassium Level 3.4L, Chloride Level 109H, Carbon Dioxide Level 33H, Anion Gap 4L, Blood Urea Nitrogen 23H, Creatinine 0.5L, Estimat Glomerular Filtration Rate > 60, Glucose Level 118H, Uric Acid 2.0L, Calcium Level 7.8L, Phosphorus Level 1.6L, Magnesium Level 2.4, Total Bilirubin 0.8, Direct Bilirubin 0.4H, Aspartate Amino Transf (AST/SGOT) 69H, Alanine Aminotransferase (ALT/SGPT) 63, Alkaline Phosphatase 83, C-Reactive Protein, Quantitative 6.9H, Pro-B-Type Natriuretic Peptide 183H, Total Protein 5.3L, Albumin 1.9L 06/29/20 12:31: POC Whole Blood Glucose 176H Current Medications Medications (Trade) Dose Ordered Sig/Maya Route PRN Reason Start Time Stop Time Status Last Admin Dose Admin Acetaminophen (Tylenol) 500 mg Q4H PRN ORAL Mild Pain (Pain Scale 1-3) 06/18/20 00:15 07/18/20 00:14 06/24/20 17:51 Acetaminophen (Tylenol) 500 mg Q4H PRN ORAL Temp >100.5 06/18/20 00:15 07/18/20 00:14 06/25/20 04:05 Carvedilol (Coreg) 6.25 mg EVERY 12 HOURS ORAL 06/22/20 21:00 07/22/20 20:59 06/29/20 11:11 Chlorhexidine Gluconate (Sissy-Hex 2%) 1 applic DAILY@2000 TOPIC 06/28/20 20:00 09/26/20 19:59 Dextrose (Dextrose 50%) 25 ml Q30M PRN IV Hypoglycemia 06/18/20 14:15 09/16/20 14:14 Dextrose (Dextrose 50%) 50 ml Q30M PRN IV Hypoglycemia 06/18/20 14:15 09/16/20 14:14 Docusate Sodium (Colace) 100 mg THREE TIMES A DAY NG 06/28/20 13:00 07/28/20 12:59 06/29/20 11:11 Enoxaparin Sodium (Lovenox) 40 mg DAILY SUBQ 06/21/20 09:00 09/19/20 08:59 06/29/20 11:10 Fentanyl Citrate 1000 mcg/Sodium Chloride 100 ml @ 1 mls/hr Q24H IV 06/27/20 13:00 06/29/20 19:59 06/29/20 06:03 Fentanyl Citrate 1000 mcg/Sodium Chloride 100 ml @ 1 mls/hr Q24H IV 06/29/20 20:00 07/01/20 19:59 Furosemide (Lasix) 40 mg DAILY IV 06/28/20 17:45 07/28/20 16:59 06/29/20 11:11 Haloperidol Lactate (Haldol) 10 mg Q6H PRN IM Agitation 06/23/20 11:30 08/07/20 11:29 06/23/20 11:34 Heparin Sodium/ Sodium Chloride (Heparin 1000 units/500ml Premix) 1,000 unit NEEDED PRN IV PICC LINE PLACEMENT 06/28/20 20:00 Heparin Sodium/ Sodium Chloride (Heparin 1000 units/500ml Premix) 1,000 unit ONCE PRN IV PROCEDURE 06/29/20 12:52 06/29/20 23:59 Insulin Aspart (NovoLOG) while NPO Q6HR SUBQ 06/18/20 18:00 09/16/20 17:59 06/29/20 12:45 Lidocaine HCl (Xylocaine 1% 30ml) 30 ml ONCE PRN INJ procedure 06/29/20 12:52 06/29/20 23:59 Midazolam HCl 100 mg/Sodium Chloride 200 ml @ 2 mls/hr Q24H PRN IV sedation 06/28/20 03:00 06/30/20 02:59 06/29/20 09:47 Pantoprazole (Protonix) 40 mg EVERY 12 HOURS IVP 06/18/20 21:00 07/18/20 20:59 06/29/20 11:11 Potassium Phosphate 20 mm/ Sodium Chloride 281.6667 ml @ 46.944 m... ONCE ONCE IV 06/29/20 10:00 06/29/20 15:59 06/29/20 11:07 Sodium Chloride 1,000 ml @ 50 mls/hr Q20H IV 06/26/20 08:00 07/26/20 07:59 06/28/20 19:32 Vitamin D (Vitamin D) 2,000 unit DAILY GT 06/29/20 10:30 07/29/20 10:29 06/29/20 11:10 Assessment/Plan Assessment/Plan 1. COVID-19 pneumonia -Intubated, on 80% FiO2. PEEP 5-10. -Will increase PEEP as peak pressures tolerate. SaO2 91% -On Decadron, s/p remdesivir 2. Leukocytosis -Likely secondary to #1 -WBC improving 3. Elevated D-dimer -Venous duplex ultrasound negative for DVT -Was on full dose Lovenox, switched to 40 subcu QD for DVT prophylaxis 4. Renal insufficiency -On IV fluids - nephro following 5. Anemia of chronic disease -Hematology oncology following 6. Sepsis -Status post antibiotics, fluid resuscitation 7. Pneumothorax 06/22/20 - b/l subcutaneous emphysema, pneumomediastinum, probable small left pneumothorax & ? trace right pneumothorax. -Pleur-evac adjusted by RN - placed CT by surgery (bilateral) - Charlie Sewell MD Jun 29, 2020 13:30
--- NOTE | 2020-06-29 13:57 | NUR ---
RADIOLOGY NOTE: RIGHT UPPER EXTREMITY PICC PLACED.
--- NOTE | 2020-06-29 14:20 | NUR ---
INSURANCE CLINICALS/REVIEW FAXED TO [facility] [phone]
--- NOTE | 2020-06-29 14:23 | Brief Operative Note ---
Immediate Post Operative Note Operative Note Pre-op Diagnosis: needs IV access Procedure: PICC Post-op Diagnosis: same as pre-op Surgeon: Dominic Rosa Specimen: none Complications: none Fluids: none Implant(s) used?: No Fredis Rosa MD Jun 29, 2020 14:23
--- NOTE | 2020-06-29 15:44 | Diagnostic Imaging Report ---
Indications: Needs long-term IV access Technique: Procedure performed at bedside. Procedural timeout performed. Ultrasound confirms patent compressible right basilic vein. Total sterile technique, including sterile probe cover and sterile gel, sterile gloves, hand hygiene, hat, mask,, sterile gown, large sterile drape, and preparation with 2% chlorhexidine utilized. Local anesthesia with 1% lidocaine. Under real-time ultrasound guidance, puncture basilic vein using 21-gauge needle, passage 0.018 guidewire, exchange for 4 [place] peel-away sheath. 4 [place] Bard dual-lumen power PICC cut to 39 cm. It was inserted through the peel-away sheath. Peel-away sheath and guidewire removed. Catheter fixed to the skin. Both catheter ports aspirated and flushed. Patient tolerated procedure well, without immediate complication. FINDINGS: Followup chest x-ray obtained, documents catheter tip position at the cavoatrial junction. Chest radiograph also demonstrates endotracheal tube tip at the right mainstem bronchus orifice. Bilateral chest tubes remain in place. Small bilateral pneumothoraces are unchanged from 06/24/2020. Stable satisfactory position of orogastric tube. Bilateral infiltrates are unchanged. Extensive subcutaneous emphysema persists. Impression: Successful bedside placement of right arm PICC under sonographic guidance, as described above. Malposition of endotracheal tube, seen on postprocedure chest radiograph. This value finding was reported to charge nurse in the ICU [place] at the time of interpretation
--- NOTE | 2020-06-29 17:11 | Diagnostic Imaging Report ---
Indication: Post endotracheal tube readjustment Technique: One view of the chest Comparison: Post PICC radiograph of 2 hours earlier Findings: Interim improvement in position of endotracheal tube, now satisfactory, tip now projects approximately 2 cm above the melyssa. Other findings are unchanged. Impression: Improved and now satisfactory endotracheal tube tip position
--- NOTE | 2020-06-29 18:22 | Surgery Progress Note ---
Surgery Progress Note Subjective Procedure Performed 1. right chest tube insertion 2. left chest tube insertion Additional Comments Patient is declining. Left chest tube has a worsening leak. Her peak pressures are very high. She has been sedated. Imaging noted labs noted Objective Last 24 Hour Vital Signs Date Time Temp Pulse Resp B/P (MAP) Pulse Ox O2 Delivery O2 Flow Rate FiO2 06/29/20 17:30 104 33 118/61 (80) 88 06/29/20 17:00 34 Mechanical Ventilator 100 06/29/20 17:00 34 114/63 Mechanical Ventilator 100 06/29/20 17:00 105 34 114/63 (80) 87 06/29/20 16:30 107 34 112/62 (79) 86 06/29/20 16:00 99.0 105 35 107/58 (74) 87 06/29/20 16:00 33 Mechanical Ventilator 100 06/29/20 16:00 33 112/62 Mechanical Ventilator 100 06/29/20 15:30 106 32 133/74 (93) 83 06/29/20 15:21 104 38 100 06/29/20 15:00 108 33 120/61 (80) 84 06/29/20 15:00 33 100 06/29/20 15:00 33 133/74 Mechanical Ventilator 100 06/29/20 14:30 109 33 122/57 (78) 86 06/29/20 14:00 33 Mechanical Ventilator 100 06/29/20 14:00 33 122/57 Mechanical Ventilator 100 06/29/20 14:00 109 34 112/75 (87) 85 06/29/20 13:30 107 34 147/53 (84) 84 06/29/20 13:00 34 Mechanical Ventilator 100 06/29/20 13:00 34 147/53 Mechanical Ventilator 100 06/29/20 13:00 105 33 140/63 (88) 84 06/29/20 12:30 103 34 134/47 (76) 82 06/29/20 12:00 33 Non-Rebreather 100 06/29/20 12:00 33 134/47 Mechanical Ventilator 100 06/29/20 12:00 99.6 98 27 144/56 (85) 76 06/29/20 11:45 91 31 06/29/20 11:30 91 31 155/81 (105) 06/29/20 11:17 89 33 100 2/8/21 11:15 92 32 96 06/29/20 11:11 90 131/63 06/29/20 11:00 32 Mechanical Ventilator 100 06/29/20 11:00 32 155/81 Mechanical Ventilator 100 06/29/20 11:00 91 33 131/63 (85) 92 06/29/20 10:45 93 33 92 06/29/20 10:30 94 32 137/76 (96) 93 06/29/20 10:15 92 32 91 06/29/20 10:00 92 32 137/71 (93) 93 06/29/20 10:00 32 Mechanical Ventilator 100 06/29/20 10:00 32 137/76 Mechanical Ventilator 100 06/29/20 09:47 32 Mechanical Ventilator 100 06/29/20 09:45 89 32 91 06/29/20 09:30 89 32 123/78 (93) 92 06/29/20 09:15 88 32 92 06/29/20 09:00 88 32 125/63 (83) 92 06/29/20 09:00 100 06/29/20 09:00 32 Mechanical Ventilator 100 06/29/20 09:00 32 123/78 Mechanical Ventilator 100 06/29/20 08:45 88 32 97 06/29/20 08:30 88 32 137/63 (87) 97 06/29/20 08:15 89 32 94 06/29/20 08:00 98.9 88 32 119/50 (73) 90 06/29/20 08:00 32 Mechanical Ventilator 100 06/29/20 08:00 32 119/50 Mechanical Ventilator 100 06/29/20 07:45 88 32 96 06/29/20 07:30 89 32 163/109 (127) 97 06/29/20 07:29 89 32 90 06/29/20 07:15 91 31 97 06/29/20 07:00 90 32 129/61 (83) 96 06/29/20 07:00 32 Mechanical Ventilator 100 06/29/20 07:00 32 129/61 Mechanical Ventilator 100 06/29/20 06:03 30 136/61 Mechanical Ventilator 100 06/29/20 06:00 31 Mechanical Ventilator 100 06/29/20 06:00 31 136/61 Mechanical Ventilator 100 06/29/20 06:00 91 31 136/61 (86) 93 06/29/20 05:00 92 32 126/65 (85) 94 06/29/20 05:00 32 Mechanical Ventilator 100 06/29/20 05:00 32 126/65 Mechanical Ventilator 100 06/29/20 04:00 93 06/29/20 04:00 99.3 93 31 132/62 (85) 94 06/29/20 04:00 Mechanical Ventilator Mechanical Ventilator 06/29/20 04:00 31 Mechanical Ventilator 100 06/29/20 04:00 31 134/62 Mechanical Ventilator 100 06/29/20 04:00 100 06/29/20 03:00 94 33 155/62 (93) 95 06/29/20 03:00 33 Mechanical Ventilator 100 06/29/20 03:00 33 155/62 Mechanical Ventilator 100 06/29/20 02:30 99 33 156/72 (100) 95 06/29/20 02:00 100 33 147/64 (91) 95 06/29/20 02:00 33 Mechanical Ventilator 100 06/29/20 02:00 35 165/60 Mechanical Ventilator 100 06/29/20 01:30 100 34 156/66 (96) 93 06/29/20 01:30 34 156/66 Mechanical Ventilator 100 06/29/20 01:00 100 35 100 06/29/20 01:00 101 36 164/81 (108) 97 06/29/20 01:00 36 Mechanical Ventilator 100 06/29/20 01:00 36 164/81 Mechanical Ventilator 100 06/29/20 00:42 100 35 161/69 (99) 93 06/29/20 00:30 34 156/66 Mechanical Ventilator 100 06/29/20 00:30 99 35 178/71 (106) 94 06/29/20 00:22 97 36 177/74 (108) 94 06/29/20 00:00 36 Mechanical Ventilator 100 06/29/20 00:00 36 178/74 Mechanical Ventilator 100 06/29/20 00:00 Mechanical Ventilator Mechanical Ventilator 06/29/20 00:00 99.9 93 36 178/74 (108) 96 06/29/20 00:00 100 06/29/20 00:00 93 06/28/20 23:07 35 Mechanical Ventilator 100 06/28/20 23:00 35 Mechanical Ventilator 100 06/28/20 23:00 35 165/60 Mechanical Ventilator 100 06/28/20 22:46 96 37 144/63 (90) 91 06/28/20 22:45 96 37 91 06/28/20 22:30 94 36 181/69 (106) 71 06/28/20 22:29 95 37 165/69 (101) 85 06/28/20 22:24 94 36 173/63 (99) 98 06/28/20 22:00 35 Mechanical Ventilator 100 06/28/20 22:00 35 165/60 Mechanical Ventilator 100 06/28/20 22:00 99.4 91 35 165/60 (95) 93 06/28/20 21:00 93 37 160/67 (98) 91 06/28/20 21:00 37 Mechanical Ventilator 100 06/28/20 21:00 37 160/67 Mechanical Ventilator 100 06/28/20 20:30 100 06/28/20 20:20 93 142/64 06/28/20 20:00 Mechanical Ventilator Mechanical Ventilator 06/28/20 20:00 31 Mechanical Ventilator 90 06/28/20 20:00 31 148/64 Mechanical Ventilator 90 06/28/20 20:00 93 31 148/64 (92) 82 06/28/20 20:00 90 06/28/20 19:58 92 06/28/20 19:30 93 37 100 06/28/20 19:00 30 Mechanical Ventilator 90 06/28/20 19:00 30 151/64 Mechanical Ventilator 90 06/28/20 19:00 98.5 88 30 151/64 (93) 83 06/28/20 18:45 86 29 170/70 (103) 92 06/28/20 18:30 84 28 162/66 (98) 88 I&O Intake and Output 06/28/20 06/29/20 19:00 07:00 Intake Total 835 ml 1161.0 ml Output Total 1975 ml 1700 ml Balance -1140 ml -539.0 ml IV Total 835 ml 841.0 ml Tube Feeding 280 ml Other 40 ml Output Urine Total 1890 ml 1665 ml Chest Tube Drainage Total 85 ml 35 ml # Bowel Movements 1 Cardiovascular: RSR Respiratory: decreased breath sounds Abdomen: non-tender, non-distended, decreased bowel sounds Extremities: edema, no tenderness, no cyanosis Laboratory Tests Test 06/29/20 05:05 06/29/20 12:31 White Blood Count 10.1 K/UL (4.8-10.8) Red Blood Count 3.80 M/UL (4.20-5.40) L Hemoglobin 11.4 G/DL (12.0-16.0) L Hematocrit 35.6 % (37.0-47.0) L Mean Corpuscular Volume 94 FL (80-99) Mean Corpuscular Hemoglobin 30.0 PG (27.0-31.0) Mean Corpuscular Hemoglobin Concent 32.1 G/DL (32.0-36.0) Red Cell Distribution Width 14.7 % (11.6-14.8) Platelet Count 124 K/UL (150-450) L Mean Platelet Volume 7.0 FL (6.5-10.1) Neutrophils (%) (Auto) % (45.0-75.0) Lymphocytes (%) (Auto) % (20.0-45.0) Monocytes (%) (Auto) % (1.0-10.0) Eosinophils (%) (Auto) % (0.0-3.0) Basophils (%) (Auto) % (0.0-2.0) Differential Total Cells Counted 100 Neutrophils % (Manual) 91 % (45-75) H Lymphocytes % (Manual) 6 % (20-45) L Monocytes % (Manual) 3 % (1-10) Eosinophils % (Manual) 0 % (0-3) Basophils % (Manual) 0 % (0-2) Band Neutrophils 0 % (0-8) Platelet Estimate Decreased L Platelet Morphology Normal Anisocytosis 1+ Sodium Level 146 MMOL/L (136-145) H Potassium Level 3.4 MMOL/L (3.5-5.1) L Chloride Level 109 MMOL/L (98-107) H Carbon Dioxide Level 33 MMOL/L (21-32) H Anion Gap 4 mmol/L (5-15) L Blood Urea Nitrogen 23 mg/dL (7-18) H Creatinine 0.5 MG/DL (0.55-1.30) L Estimat Glomerular Filtration Rate > 60 mL/min (>60) Glucose Level 118 MG/DL (74-106) H Uric Acid 2.0 MG/DL (2.6-7.2) L Calcium Level 7.8 MG/DL (8.5-10.1) L Phosphorus Level 1.6 MG/DL (2.5-4.9) L Magnesium Level 2.4 MG/DL (1.8-2.4) Total Bilirubin 0.8 MG/DL (0.2-1.0) Direct Bilirubin 0.4 MG/DL (0.0-0.3) H Aspartate Amino Transf (AST/SGOT) 69 U/L (15-37) H Alanine Aminotransferase (ALT/SGPT) 63 U/L (12-78) Alkaline Phosphatase 83 U/L (46-116) C-Reactive Protein, Quantitative 6.9 mg/dL (0.00-0.90) H Pro-B-Type Natriuretic Peptide 183 pg/mL (0-125) H Total Protein 5.3 G/DL (6.4-8.2) L Albumin 1.9 G/DL (3.4-5.0) L POC Whole Blood Glucose 176 MG/DL (74-106) H Plan Problems: (1) Renal insufficiency (2) Elevated d-dimer (3) Dehydration (4) LEONARDO (acute kidney injury) (5) DMII (diabetes mellitus, type 2) (6) Hypoxia (7) Pneumonia due to COVID-19 virus (8) PNA (pneumonia) (9) Pneumothorax Assessment & Plan: Bilateral pneumothorax status post bilateral chest tubes. Still on significant vent support. leak performed. Continue weaning vent. Continue with chest tubes. Will monitor and manage chest tubes accordingly. Thank you for let me to participate in patient's care Continue bilateral chest tubes on suction the airleak is worse her peak pressures are high prognosis overall is guarded. Imaging reviewed Elpidio Frazier Jun 29, 2020 18:22
--- NOTE | 2020-06-29 19:50 | NUR ---
NURSE NOTES: PATIENT SEDATED, RASS SCORE -2 STATUS, ON ETT TO VENT AC 16/TV400/FIO2 100%/PEEP 8, O2 SATURATION 88% NOTED, CHEST TUBE TO BILATERAL INTACT WITH PLEU VAC, RIGHT SIDE LEAKED THAT DAY SHIFT NURSE SAID DR. GIRALDO WAS AWARE. OGT INTACT AND PATENT, ONGOING GLUCERNA 1.1 AT 55ML/HR, NO RESIDUE NOTED, KEPT HOB 30 DEGREES AND ASPIRATION PRECAUTION, ABDOMEN SOFT, NON TENDER, NO BM STATUS, F/C INTACT AND PATENT, MALCOLM COLOR URINE OUTED, PPL TO RIGHT AC 20G, LEFT FOREARM 22G AND PICC LINE TO RIGHT UPPER ARM INTACT AND PATENT, ONGOING VERSED 8MG AND FENTANYL 70 MCG/HR VIA RT. PICC LINE, IV FLUID NS AT 50 ML VIA PICC LINE. KEPT AIRBORNE PRECAUTION, MADE LOWER BED POSITION, ON BED ALARM AND LOCKED, WILL CONTINUE TO MONITOR.
[2020-06-29] MEDS: Dyna-Hex 2% Top Sol 2oz TOPIC SCH (19:59)
[2020-06-29] MEDS: Acetaminophen 500mg (ES) tab ORAL PRN ×2 (20:00→20:01)
--- NOTE | 2020-06-29 20:22 | Psychiatric Progress Note ---
Psychiatry Progress Note Psychiatry Progress Note Medications Current Medications Medications (Trade) Dose Ordered Sig/Maya Route PRN Reason Start Time Stop Time Status Last Admin Dose Admin Acetaminophen (Tylenol) 500 mg Q4H PRN ORAL Mild Pain (Pain Scale 1-3) 06/18/20 00:15 07/18/20 00:14 06/24/20 17:51 Acetaminophen (Tylenol) 500 mg Q4H PRN ORAL Temp >100.5 06/18/20 00:15 07/18/20 00:14 06/29/20 20:01 Carvedilol (Coreg) 6.25 mg EVERY 12 HOURS ORAL 06/22/20 21:00 07/22/20 20:59 06/29/20 11:11 Chlorhexidine Gluconate (Sissy-Hex 2%) 1 applic DAILY@2000 TOPIC 06/28/20 20:00 09/26/20 19:59 06/29/20 19:59 Dextrose (Dextrose 50%) 25 ml Q30M PRN IV Hypoglycemia 06/18/20 14:15 09/16/20 14:14 Dextrose (Dextrose 50%) 50 ml Q30M PRN IV Hypoglycemia 06/18/20 14:15 09/16/20 14:14 Docusate Sodium (Colace) 100 mg THREE TIMES A DAY NG 06/28/20 13:00 07/28/20 12:59 06/29/20 18:00 Enoxaparin Sodium (Lovenox) 40 mg DAILY SUBQ 06/21/20 09:00 09/19/20 08:59 06/29/20 11:10 Fentanyl Citrate 1000 mcg/Sodium Chloride 100 ml @ 1 mls/hr Q24H PRN IV sedation 06/29/20 20:00 07/01/20 19:59 06/29/20 20:03 Furosemide (Lasix) 40 mg DAILY IV 06/28/20 17:45 07/28/20 16:59 06/29/20 11:11 Haloperidol Lactate (Haldol) 10 mg Q6H PRN IM Agitation 06/23/20 11:30 08/07/20 11:29 06/23/20 11:34 Heparin Sodium/ Sodium Chloride (Heparin 1000 units/500ml Premix) 1,000 unit NEEDED PRN IV PICC LINE PLACEMENT 06/28/20 20:00 Heparin Sodium/ Sodium Chloride (Heparin 1000 units/500ml Premix) 1,000 unit ONCE PRN IV PROCEDURE 06/29/20 12:52 06/29/20 23:59 Insulin Aspart (NovoLOG) while NPO Q6HR SUBQ 06/18/20 18:00 09/16/20 17:59 06/29/20 12:45 Lidocaine HCl (Xylocaine 1% 30ml) 30 ml ONCE PRN INJ procedure 06/29/20 12:52 06/29/20 23:59 Midazolam HCl 100 mg/Sodium Chloride 200 ml @ 2 mls/hr Q24H PRN IV sedation 06/28/20 03:00 06/30/20 02:59 06/29/20 09:47 Pantoprazole (Protonix) 40 mg EVERY 12 HOURS IVP 06/18/20 21:00 07/18/20 20:59 06/29/20 11:11 Sodium Chloride 1,000 ml @ 50 mls/hr Q20H IV 06/26/20 08:00 07/26/20 07:59 06/29/20 16:13 Vitamin D (Vitamin D) 2,000 unit DAILY GT 06/29/20 10:30 07/29/20 10:29 06/29/20 11:10 Neurological/Psychiatric: Reports: anxiety, depressed, emotional problems; Denies: no symptoms, headache, numbness, paresthesia, pre-existing deficit, seizure, tingling, tremors, weakness, other Allergies: Coded Allergies: No Known Allergies (Unverified , 06/17/20) Objective Data Height (Feet): 5 Height (Inches): 2.00 Weight (Pounds): 138 General Appearance: moderate distress Additional Comments: Kevin I Acute toxic encephalopathy. Kevin II Deferred. Kevin III As above, respiratory failure. Kevin IV Low. Kevin V 10. PLAN: 1. cont the restraints. 2. Haldol IM p.r.n. when needed for weaning off in addition to Midazolam that was ordered by the tubing mill setter. Assessment/Plan Status: progressing Suellen Carlson MD Jun 29, 2020 20:21
--- NOTE | 2020-06-29 20:32 | General Progress Note ---
Subjective ROS Limited/Unobtainable: Yes Allergies: Coded Allergies: No Known Allergies (Unverified , 06/17/20) Objective Last 24 Hour Vital Signs Date Time Temp Pulse Resp B/P (MAP) Pulse Ox O2 Delivery O2 Flow Rate FiO2 06/29/20 20:03 33 142/63 Mechanical Ventilator 100 06/29/20 19:43 110 32 100 06/29/20 18:30 105 33 120/60 (80) 89 06/29/20 18:00 104 34 115/61 (79) 88 06/29/20 17:30 104 33 118/61 (80) 88 06/29/20 17:00 34 Mechanical Ventilator 100 06/29/20 17:00 34 114/63 Mechanical Ventilator 100 06/29/20 17:00 105 34 114/63 (80) 87 06/29/20 16:30 107 34 112/62 (79) 86 06/29/20 16:00 100 06/29/20 16:00 99.0 105 35 107/58 (74) 87 06/29/20 16:00 33 Mechanical Ventilator 100 06/29/20 16:00 33 112/62 Mechanical Ventilator 100 06/29/20 16:00 Mechanical Ventilator Mechanical Ventilator 06/29/20 15:30 106 32 133/74 (93) 83 06/29/20 15:21 104 38 100 06/29/20 15:00 108 33 120/61 (80) 84 06/29/20 15:00 33 100 06/29/20 15:00 33 133/74 Mechanical Ventilator 100 06/29/20 14:30 109 33 122/57 (78) 86 06/29/20 14:00 33 Mechanical Ventilator 100 06/29/20 14:00 33 122/57 Mechanical Ventilator 100 06/29/20 14:00 109 34 112/75 (87) 85 06/29/20 13:30 107 34 147/53 (84) 84 06/29/20 13:00 34 Mechanical Ventilator 100 06/29/20 13:00 34 147/53 Mechanical Ventilator 100 06/29/20 13:00 105 33 140/63 (88) 84 06/29/20 12:30 103 34 134/47 (76) 82 06/29/20 12:00 100 06/29/20 12:00 33 Non-Rebreather 100 06/29/20 12:00 33 134/47 Mechanical Ventilator 100 06/29/20 12:00 99.6 98 27 144/56 (85) 76 06/29/20 12:00 Mechanical Ventilator Mechanical Ventilator 06/29/20 11:45 91 31 06/29/20 11:30 91 31 155/81 (105) 06/29/20 11:17 89 33 100 06/29/20 11:15 92 32 96 06/29/20 11:11 90 131/63 06/29/20 11:00 32 Mechanical Ventilator 100 06/29/20 11:00 32 155/81 Mechanical Ventilator 100 06/29/20 11:00 91 33 131/63 (85) 92 06/29/20 10:45 93 33 92 06/29/20 10:30 94 32 137/76 (96) 93 06/29/20 10:15 92 32 91 06/29/20 10:00 92 32 137/71 (93) 93 06/29/20 10:00 32 Mechanical Ventilator 100 06/29/20 10:00 32 137/76 Mechanical Ventilator 100 06/29/20 09:47 32 Mechanical Ventilator 100 06/29/20 09:45 89 32 91 06/29/20 09:30 89 32 123/78 (93) 92 06/29/20 09:15 88 32 92 06/29/20 09:00 88 32 125/63 (83) 92 06/29/20 09:00 100 06/29/20 09:00 32 Mechanical Ventilator 100 06/29/20 09:00 32 123/78 Mechanical Ventilator 100 06/29/20 08:45 88 32 97 06/29/20 08:30 88 32 137/63 (87) 97 06/29/20 08:15 89 32 94 06/29/20 08:00 Mechanical Ventilator Mechanical Ventilator 06/29/20 08:00 98.9 88 32 119/50 (73) 90 06/29/20 08:00 32 Mechanical Ventilator 100 06/29/20 08:00 32 119/50 Mechanical Ventilator 100 06/29/20 07:45 88 32 96 06/29/20 07:30 89 32 163/109 (127) 97 06/29/20 07:29 89 32 90 06/29/20 07:15 91 31 97 06/29/20 07:00 90 32 129/61 (83) 96 06/29/20 07:00 32 Mechanical Ventilator 100 2/8/21 07:00 32 129/61 Mechanical Ventilator 100 06/29/20 06:03 30 136/61 Mechanical Ventilator 100 06/29/20 06:00 31 Mechanical Ventilator 100 06/29/20 06:00 31 136/61 Mechanical Ventilator 100 06/29/20 06:00 91 31 136/61 (86) 93 06/29/20 05:00 92 32 126/65 (85) 94 06/29/20 05:00 32 Mechanical Ventilator 100 06/29/20 05:00 32 126/65 Mechanical Ventilator 100 06/29/20 04:00 93 06/29/20 04:00 99.3 93 31 132/62 (85) 94 06/29/20 04:00 Mechanical Ventilator Mechanical Ventilator 06/29/20 04:00 31 Mechanical Ventilator 100 06/29/20 04:00 31 134/62 Mechanical Ventilator 100 06/29/20 04:00 100 06/29/20 03:00 94 33 155/62 (93) 95 06/29/20 03:00 33 Mechanical Ventilator 100 06/29/20 03:00 33 155/62 Mechanical Ventilator 100 06/29/20 02:30 99 33 156/72 (100) 95 06/29/20 02:00 100 33 147/64 (91) 95 06/29/20 02:00 33 Mechanical Ventilator 100 06/29/20 02:00 35 165/60 Mechanical Ventilator 100 06/29/20 01:30 100 34 156/66 (96) 93 06/29/20 01:30 34 156/66 Mechanical Ventilator 100 06/29/20 01:00 100 35 100 06/29/20 01:00 101 36 164/81 (108) 97 06/29/20 01:00 36 Mechanical Ventilator 100 06/29/20 01:00 36 164/81 Mechanical Ventilator 100 06/29/20 00:42 100 35 161/69 (99) 93 06/29/20 00:30 34 156/66 Mechanical Ventilator 100 06/29/20 00:30 99 35 178/71 (106) 94 06/29/20 00:22 97 36 177/74 (108) 94 06/29/20 00:00 36 Mechanical Ventilator 100 06/29/20 00:00 36 178/74 Mechanical Ventilator 100 06/29/20 00:00 Mechanical Ventilator Mechanical Ventilator 06/29/20 00:00 99.9 93 36 178/74 (108) 96 06/29/20 00:00 100 06/29/20 00:00 93 06/28/20 23:07 35 Mechanical Ventilator 100 06/28/20 23:00 35 Mechanical Ventilator 100 06/28/20 23:00 35 165/60 Mechanical Ventilator 100 06/28/20 22:46 96 37 144/63 (90) 91 06/28/20 22:45 96 37 91 06/28/20 22:30 94 36 181/69 (106) 71 06/28/20 22:29 95 37 165/69 (101) 85 06/28/20 22:24 94 36 173/63 (99) 98 06/28/20 22:00 35 Mechanical Ventilator 100 06/28/20 22:00 35 165/60 Mechanical Ventilator 100 06/28/20 22:00 99.4 91 35 165/60 (95) 93 06/28/20 21:00 93 37 160/67 (98) 91 06/28/20 21:00 37 Mechanical Ventilator 100 06/28/20 21:00 37 160/67 Mechanical Ventilator 100 Intake and Output 0 06/28/20 06/29/20 19:00 07:00 Intake Total 835 ml 1161.0 ml Output Total 1975 ml 1700 ml Balance -1140 ml -539.0 ml IV Total 835 ml 841.0 ml Tube Feeding 280 ml Other 40 ml Output Urine Total 1890 ml 1665 ml Chest Tube Drainage Total 85 ml 35 ml # Bowel Movements 1 Laboratory Tests 06/29/20 05:05: White Blood Count 10.1, Red Blood Count 3.80L, Hemoglobin 11.4L, Hematocrit 35.6L, Mean Corpuscular Volume 94, Mean Corpuscular Hemoglobin 30.0, Mean Corpuscular Hemoglobin Concent 32.1, Red Cell Distribution Width 14.7, Platelet Count 124L, Mean Platelet Volume 7.0, Neutrophils (%) (Auto) , Lymphocytes (%) (Auto) , Monocytes (%) (Auto) , Eosinophils (%) (Auto) , Basophils (%) (Auto) , Differential Total Cells Counted 100, Neutrophils % (Manual) 91H, Lymphocytes % (Manual) 6L, Monocytes % (Manual) 3, Eosinophils % (Manual) 0, Basophils % (Manual) 0, Band Neutrophils 0, Platelet Estimate DecreasedL, Platelet Morphology Normal, Anisocytosis 1+, Sodium Level 146H, Potassium Level 3.4L, Chloride Level 109H, Carbon Dioxide Level 33H, Anion Gap 4L, Blood Urea Nitrogen 23H, Creatinine 0.5L, Estimat Glomerular Filtration Rate > 60, Glucose Level 118H, Uric Acid 2.0L, Calcium Level 7.8L, Phosphorus Level 1.6L, Magnesium Level 2.4, Total Bilirubin 0.8, Direct Bilirubin 0.4H, Aspartate Amino Transf (AST/SGOT) 69H, Alanine Aminotransferase (ALT/SGPT) 63, Alkaline Phosphatase 83, C-Reactive Protein, Quantitative 6.9H, Pro-B-Type Natriuretic Peptide 183H, Total Protein 5.3L, Albumin 1.9L 06/29/20 12:31: POC Whole Blood Glucose 176H Height (Feet): 5 Height (Inches): 2.00 Weight (Pounds): 138 Assessment/Plan Problem List: (1) Elevated d-dimer ICD Codes: R79.89 - Other specified abnormal findings of blood chemistry SNOMED: 217924686 (2) Renal insufficiency ICD Codes: N28.9 - Disorder of kidney and ureter, unspecified SNOMED: 065917003, 565208319 (3) PNA (pneumonia) ICD Codes: J18.9 - Pneumonia, unspecified organism SNOMED: 617329744 (4) Dehydration ICD Codes: E86.0 - Dehydration SNOMED: 14774387 (5) LEONARDO (acute kidney injury) ICD Codes: N17.9 - Acute kidney failure, unspecified SNOMED: 1161890, 56399082 (6) Hypoxia ICD Codes: R09.02 - Hypoxemia; J12.82 - Pneumonia due to coronavirus disease 2019 SNOMED: 991027858 (7) Pneumonia due to COVID-19 virus ICD Codes: U07.1 - COVID-19; J12.82 - Pneumonia due to coronavirus disease 2019 SNOMED: 600898251176623051 (8) DMII (diabetes mellitus, type 2) ICD Codes: E11.9 - Type 2 diabetes mellitus without complications SNOMED: 97323620 Status: progressing, unchanged Assessment/Plan: covid + resp insuff intubated septic shock dehydration azotemia check sugar afebrile Vidya Clayton MD Jun 29, 2020 20:32
--- NOTE | 2020-06-29 21:00 | NUR ---
NURSE NOTES: LE: TEMP 100.9F THAT GIVEN TYLENOL 500MG VIA GOGT AND APPLIED COOLING MEASURE AT 2001PM. HR 107/MIN ST, O2 SATURATION 90% NOTED AT THIS TIME.
--- NOTE | 2020-06-29 22:00 | NUR ---
NURSE NOTES: NOTED BP 89/29MMHG, RASS SCORE -2, DECREASED FENTANYL 60MCG/MIN AND VERSED 7MG/HR, WILL CONTINUE TO MONITOR.
[2020-06-30] VITALS (46 sets, daily range): BP systolic 90–183; BP diastolic 51–96
--- NOTE | 2020-06-30 00:05 | NUR ---
NURSE NOTES: TEMP 99.3F NOTED, ORAL CARE WAS DONE, NO ACUTE DISTRESS NOTED AT THIS TIME.
--- NOTE | 2020-06-30 02:44 | NUR ---
NURSE NOTES: EDEMATOUS TO BOTH CONJUNCTIVAS, F/C INTACT AND PATENT, TOLERATED OGT FEEDING, WILL CONTINUE TO MONITOR.
--- NOTE | 2020-06-30 04:30 | NUR ---
NURSE NOTES: MORNING CARE WAS DONE, NO BM STATUS, WILL CONTINUE PLAN OF CARE
[2020-06-30 05:36] LABS: HEMATOCRIT 32.8 % (37.0-47.0); HEMOGLOBIN 10.8 G/DL (12.0-16.0); MEAN CORPUSCULAR VOLUME 94 FL (80-99); PLATELET COUNT 77 K/UL (150-450); RED BLOOD COUNT 3.48 M/UL (4.20-5.40); RED CELL DISTRIBUTION WIDTH 15.1 % (11.6-14.8); WHITE BLOOD COUNT 9.2 K/UL (4.8-10.8)
[2020-06-30] MEDS: NovoLOG Insulin Flexpen SUBQ SCH ×4 (05:39→23:35)
[2020-06-30 06:06] LABS: ALANINE AMINOTRANSFERASE 59 U/L (12-78); ALBUMIN 1.5 G/DL (3.4-5.0); ALBUMIN/GLOBULIN RATIO 0.4 (1.0-2.7); ALKALINE PHOSPHATASE 98 U/L (46-116); ANION GAP 1 mmol/L (5-15); ASPARTATE AMINO TRANSFERASE 60 U/L (15-37); BLOOD UREA NITROGEN 21 mg/dL (7-18); CALCIUM 7.4 MG/DL (8.5-10.1); CARBON DIOXIDE 36 MMOL/L (21-32); CHLORIDE 109 MMOL/L (98-107); CREATININE 0.5 MG/DL (0.55-1.30); PHOSPHORUS 2.3 MG/DL (2.5-4.9); POTASSIUM 3.5 MMOL/L (3.5-5.1); SODIUM 146 MMOL/L (136-145)
--- NOTE | 2020-06-30 06:31 | Hematology/Onc Progress Note ---
Assessment/Plan Assessment/Plan Assessment and recs # Leukocytosis with Pneumonia due to COVID-19 virus -> wbc trend 15-->11-->10->17-->18->11 --> ABX as per id ctx-->off --> imaging does show pna --> anticoag recommended --> on remdesivir # Anemia of chronic disease --> hgb 12->10-->9-->11-->10.8 -> transfuse prn --> r/o hemolysis # Elevated ddimer due to covid --> duplex legs -> LOVENOX sq # Thrombocytopenia due to likely plt destruction, Covid19++ with Hypoxia -> steriods, abx per id --> plt 117-->121-->124->77 --> smear is noted # Renal insufficiency -> per renal care # Sepsis due to above --> abx, fluid resuscitation # Dvt ppx lovenox sq Appreciate consultation and mehran RN Subjective Allergies: Coded Allergies: No Known Allergies (Unverified , 06/17/20) All Systems: reviewed and negative except above Subjective 06/19 sleeping, comfortable, on bipap, meds have been reviewed 06/21 on bipap, labs have been reviewed, no major events 06/22 bipap labs reviewed, meds noted, no bleeding 06/23 bipap labs noted, no bleeding, meds reviewed, mehran rn 06/24 on vent, labs reviewed, meds reviewed 06/25 on vent, with ctx as abx, labs noted, no bleeding 06/26 vent, with ogt, with helms, labs noted, no bleeding plts lower 06/28 labs are pending, on vent, helms intract, no new changes 06/29 icu, on vent, hgb 11, plt 124, meds noted, on ctx 06/30 icu, edematous, is on vent, labs reviewed, abx Objective Objective Current Medications Medications (Trade) Dose Ordered Sig/Maya Route PRN Reason Start Time Stop Time Status Last Admin Dose Admin Acetaminophen (Tylenol) 500 mg Q4H PRN ORAL Mild Pain (Pain Scale 1-3) 06/18/20 00:15 07/18/20 00:14 06/24/20 17:51 Acetaminophen (Tylenol) 500 mg Q4H PRN ORAL Temp >100.5 1/28/21 00:15 07/18/20 00:14 06/29/20 20:01 Carvedilol (Coreg) 6.25 mg EVERY 12 HOURS ORAL 06/22/20 21:00 07/22/20 20:59 06/29/20 20:42 Chlorhexidine Gluconate (Sissy-Hex 2%) 1 applic DAILY@2000 TOPIC 06/28/20 20:00 09/26/20 19:59 06/29/20 19:59 Dextrose (Dextrose 50%) 25 ml Q30M PRN IV Hypoglycemia 06/18/20 14:15 09/16/20 14:14 Dextrose (Dextrose 50%) 50 ml Q30M PRN IV Hypoglycemia 06/18/20 14:15 09/16/20 14:14 Docusate Sodium (Colace) 100 mg THREE TIMES A DAY NG 06/28/20 13:00 07/28/20 12:59 06/29/20 18:00 Enoxaparin Sodium (Lovenox) 40 mg DAILY SUBQ 06/21/20 09:00 09/19/20 08:59 06/29/20 11:10 Fentanyl Citrate 1000 mcg/Sodium Chloride 100 ml @ 1 mls/hr Q24H PRN IV sedation 06/29/20 20:00 07/01/20 19:59 06/29/20 20:03 Furosemide (Lasix) 40 mg DAILY IV 06/28/20 17:45 07/28/20 16:59 06/29/20 11:11 Haloperidol Lactate (Haldol) 10 mg Q6H PRN IM Agitation 06/23/20 11:30 08/07/20 11:29 06/23/20 11:34 Heparin Sodium/ Sodium Chloride (Heparin 1000 units/500ml Premix) 1,000 unit NEEDED PRN IV PICC LINE PLACEMENT 06/28/20 20:00 Insulin Aspart (NovoLOG) while NPO Q6HR SUBQ 06/18/20 18:00 09/16/20 17:59 06/30/20 05:39 Midazolam HCl 100 ml @ 0 mls/hr Q24H PRN IV Per rx protocol 06/30/20 03:00 07/02/20 02:59 Pantoprazole (Protonix) 40 mg EVERY 12 HOURS IVP 06/18/20 21:00 07/18/20 20:59 06/29/20 20:42 Sodium Chloride 1,000 ml @ 50 mls/hr Q20H IV 06/26/20 08:00 07/26/20 07:59 06/29/20 16:13 Vitamin D (Vitamin D) 2,000 unit DAILY GT 06/29/20 10:30 07/29/20 10:29 06/29/20 11:10 Last 24 Hour Vital Signs Date Time Temp Pulse Resp B/P (MAP) Pulse Ox O2 Delivery O2 Flow Rate FiO2 06/30/20 04:00 85 06/30/20 04:00 28 109/56 Mechanical Ventilator 100 06/30/20 04:00 26 Mechanical Ventilator 100 06/30/20 04:00 Mechanical Ventilator Mechanical Ventilator 06/30/20 04:00 100 06/30/20 04:00 97.7 85 28 109/56 (73) 95 06/30/20 03:30 88 30 100 06/30/20 03:30 85 28 102/52 (69) 95 06/30/20 03:15 28 Mechanical Ventilator 100 06/30/20 03:00 88 26 90/52 (65) 96 06/30/20 03:00 26 90/52 Mechanical Ventilator 100 06/30/20 03:00 26 Mechanical Ventilator 100 06/30/20 02:00 23 104/53 Mechanical Ventilator 100 06/30/20 02:00 23 Mechanical Ventilator 100 06/30/20 02:00 93 23 104/53 (70) 93 06/30/20 01:45 23 Mechanical Ventilator 100 06/30/20 01:30 26 104/51 Mechanical Ventilator 100 06/30/20 01:30 26 Mechanical Ventilator 100 06/30/20 01:30 97 26 104/51 (68) 93 06/30/20 01:15 26 Mechanical Ventilator 100 06/30/20 01:00 97 26 105/52 (69) 93 06/30/20 01:00 26 105/52 Mechanical Ventilator 100 06/30/20 01:00 26 Mechanical Ventilator 100 06/30/20 00:30 97 27 109/53 (71) 92 06/30/20 00:00 100 06/30/20 00:00 Mechanical Ventilator Mechanical Ventilator 06/30/20 00:00 28 106/51 Mechanical Ventilator 100 06/30/20 00:00 28 Mechanical Ventilator 100 06/30/20 00:00 99.3 96 28 106/51 (69) 92 06/30/20 00:00 96 06/29/20 23:48 28 Mechanical Ventilator 100 06/29/20 23:30 110 28 100 06/29/20 23:00 94 27 97/52 (67) 93 06/29/20 23:00 27 97/52 Mechanical Ventilator 100 06/29/20 23:00 27 Mechanical Ventilator 100 06/29/20 22:30 95 27 94/49 (64) 95 06/29/20 22:00 93 27 89/26 (47) 92 06/29/20 22:00 27 89/26 Mechanical Ventilator 100 06/29/20 22:00 27 Mechanical Ventilator 100 06/29/20 21:00 31 107/51 Mechanical Ventilator 100 06/29/20 21:00 31 Mechanical Ventilator 100 06/29/20 21:00 99.9 107 31 107/51 (69) 90 06/29/20 20:42 108 123/56 06/29/20 20:31 99.9 06/29/20 20:03 33 142/63 Mechanical Ventilator 100 06/29/20 20:00 Mechanical Ventilator Mechanical Ventilator 06/29/20 20:00 100.7 113 33 142/63 (89) 87 06/29/20 20:00 33 Mechanical Ventilator 100 06/29/20 20:00 33 142/63 Mechanical Ventilator 100 06/29/20 20:00 100 06/29/20 19:43 110 32 100 06/29/20 19:34 111 06/29/20 19:00 108 32 122/62 (82) 88 06/29/20 19:00 32 Mechanical Ventilator 100 06/29/20 19:00 32 122/62 Mechanical Ventilator 100 06/29/20 18:30 105 33 120/60 (80) 89 06/29/20 18:00 104 34 115/61 (79) 88 06/29/20 17:30 104 33 118/61 (80) 88 06/29/20 17:00 34 Mechanical Ventilator 100 06/29/20 17:00 34 114/63 Mechanical Ventilator 100 06/29/20 17:00 105 34 114/63 (80) 87 06/29/20 16:30 107 34 112/62 (79) 86 06/29/20 16:00 100 06/29/20 16:00 99.0 105 35 107/58 (74) 87 06/29/20 16:00 33 Mechanical Ventilator 100 06/29/20 16:00 33 112/62 Mechanical Ventilator 100 06/29/20 16:00 Mechanical Ventilator Mechanical Ventilator 06/29/20 15:30 106 32 133/74 (93) 83 06/29/20 15:21 104 38 100 06/29/20 15:00 108 33 120/61 (80) 84 06/29/20 15:00 33 100 06/29/20 15:00 33 133/74 Mechanical Ventilator 100 06/29/20 14:30 109 33 122/57 (78) 86 06/29/20 14:00 33 Mechanical Ventilator 100 06/29/20 14:00 33 122/57 Mechanical Ventilator 100 06/29/20 14:00 109 34 112/75 (87) 85 06/29/20 13:30 107 34 147/53 (84) 84 06/29/20 13:00 34 Mechanical Ventilator 100 06/29/20 13:00 34 147/53 Mechanical Ventilator 100 06/29/20 13:00 105 33 140/63 (88) 84 06/29/20 12:30 103 34 134/47 (76) 82 06/29/20 12:00 100 06/29/20 12:00 33 Non-Rebreather 100 06/29/20 12:00 33 134/47 Mechanical Ventilator 100 06/29/20 12:00 99.6 98 27 144/56 (85) 76 06/29/20 12:00 Mechanical Ventilator Mechanical Ventilator 06/29/20 11:45 91 31 06/29/20 11:30 91 31 155/81 (105) 06/29/20 11:17 89 33 100 06/29/20 11:15 92 32 96 06/29/20 11:11 90 131/63 06/29/20 11:00 32 Mechanical Ventilator 100 06/29/20 11:00 32 155/81 Mechanical Ventilator 100 06/29/20 11:00 91 33 131/63 (85) 92 06/29/20 10:45 93 33 92 06/29/20 10:30 94 32 137/76 (96) 93 06/29/20 10:15 92 32 91 06/29/20 10:00 92 32 137/71 (93) 93 06/29/20 10:00 32 Mechanical Ventilator 100 06/29/20 10:00 32 137/76 Mechanical Ventilator 100 06/29/20 09:47 32 Mechanical Ventilator 100 06/29/20 09:45 89 32 91 06/29/20 09:30 89 32 123/78 (93) 92 06/29/20 09:15 88 32 92 06/29/20 09:00 88 32 125/63 (83) 92 06/29/20 09:00 100 06/29/20 09:00 32 Mechanical Ventilator 100 06/29/20 09:00 32 123/78 Mechanical Ventilator 100 06/29/20 08:45 88 32 97 06/29/20 08:30 88 32 137/63 (87) 97 06/29/20 08:15 89 32 94 06/29/20 08:00 Mechanical Ventilator Mechanical Ventilator 06/29/20 08:00 98.9 88 32 119/50 (73) 90 06/29/20 08:00 32 Mechanical Ventilator 100 06/29/20 08:00 32 119/50 Mechanical Ventilator 100 06/29/20 07:45 88 32 96 06/29/20 07:30 89 32 163/109 (127) 97 06/29/20 07:29 89 32 90 06/29/20 07:15 91 31 97 06/29/20 07:00 90 32 129/61 (83) 96 06/29/20 07:00 32 Mechanical Ventilator 100 06/29/20 07:00 32 129/61 Mechanical Ventilator 100 06/29/20 06:03 30 136/61 Mechanical Ventilator 100 06/29/20 06:00 31 Mechanical Ventilator 100 06/29/20 06:00 31 136/61 Mechanical Ventilator 100 06/29/20 06:00 91 31 136/61 (86) 93 06/29/20 05:00 92 32 126/65 (85) 94 06/29/20 05:00 32 Mechanical Ventilator 100 06/29/20 05:00 32 126/65 Mechanical Ventilator 100 06/29/20 04:00 93 06/29/20 04:00 99.3 93 31 132/62 (85) 94 06/29/20 04:00 Mechanical Ventilator Mechanical Ventilator 06/29/20 04:00 31 Mechanical Ventilator 100 06/29/20 04:00 31 134/62 Mechanical Ventilator 100 06/29/20 04:00 100 06/29/20 03:00 94 33 155/62 (93) 95 06/29/20 03:00 33 Mechanical Ventilator 100 06/29/20 03:00 33 155/62 Mechanical Ventilator 100 06/29/20 02:30 99 33 156/72 (100) 95 06/29/20 02:00 100 33 147/64 (91) 95 06/29/20 02:00 33 Mechanical Ventilator 100 06/29/20 02:00 35 165/60 Mechanical Ventilator 100 06/29/20 01:30 100 34 156/66 (96) 93 06/29/20 01:30 34 156/66 Mechanical Ventilator 100 06/29/20 01:00 100 35 100 06/29/20 01:00 101 36 164/81 (108) 97 06/29/20 01:00 36 Mechanical Ventilator 100 06/29/20 01:00 36 164/81 Mechanical Ventilator 100 06/29/20 00:42 100 35 161/69 (99) 93 06/29/20 00:30 34 156/66 Mechanical Ventilator 100 06/29/20 00:30 99 35 178/71 (106) 94 06/29/20 00:22 97 36 177/74 (108) 94 06/29/20 00:00 36 Mechanical Ventilator 100 06/29/20 00:00 36 178/74 Mechanical Ventilator 100 06/29/20 00:00 Mechanical Ventilator Mechanical Ventilator 06/29/20 00:00 99.9 93 36 178/74 (108) 96 06/29/20 00:00 100 06/29/20 00:00 93 06/28/20 23:07 35 Mechanical Ventilator 100 06/28/20 23:00 35 Mechanical Ventilator 100 06/28/20 23:00 35 165/60 Mechanical Ventilator 100 06/28/20 22:46 96 37 144/63 (90) 91 06/28/20 22:45 96 37 91 06/28/20 22:30 94 36 181/69 (106) 71 06/28/20 22:29 95 37 165/69 (101) 85 06/28/20 22:24 94 36 173/63 (99) 98 06/28/20 22:00 35 Mechanical Ventilator 100 06/28/20 22:00 35 165/60 Mechanical Ventilator 100 06/28/20 22:00 99.4 91 35 165/60 (95) 93 06/28/20 21:00 93 37 160/67 (98) 91 06/28/20 21:00 37 Mechanical Ventilator 100 06/28/20 21:00 37 160/67 Mechanical Ventilator 100 06/28/20 20:30 100 06/28/20 20:20 93 142/64 06/28/20 20:00 Mechanical Ventilator Mechanical Ventilator 06/28/20 20:00 31 Mechanical Ventilator 90 06/28/20 20:00 31 148/64 Mechanical Ventilator 90 06/28/20 20:00 93 31 148/64 (92) 82 06/28/20 20:00 90 06/28/20 19:58 92 06/28/20 19:30 93 37 100 06/28/20 19:00 30 Mechanical Ventilator 90 06/28/20 19:00 30 151/64 Mechanical Ventilator 90 06/28/20 19:00 98.5 88 30 151/64 (93) 83 06/28/20 18:45 86 29 170/70 (103) 92 06/28/20 18:30 84 28 162/66 (98) 88 06/28/20 18:19 85 29 168/61 (96) 06/28/20 18:15 92 29 178/65 (102) 06/28/20 18:00 83 27 151/67 (95) 88 06/28/20 18:00 27 Mechanical Ventilator 100 06/28/20 18:00 27 178/66 Mechanical Ventilator 100 06/28/20 17:45 82 27 152/60 (90) 88 06/28/20 17:30 80 27 134/60 (84) 88 06/28/20 17:15 80 27 127/64 (85) 88 06/28/20 17:00 26 Mechanical Ventilator 100 06/28/20 17:00 26 127/64 Mechanical Ventilator 100 06/28/20 17:00 79 26 123/61 (81) 88 06/28/20 16:45 79 26 122/59 (80) 88 06/28/20 16:30 78 26 119/59 (79) 90 06/28/20 16:15 80 26 124/58 (80) 93 06/28/20 16:04 84 27 139/60 (86) 99 06/28/20 16:00 Mechanical Ventilator Mechanical Ventilator 06/28/20 16:00 78 06/28/20 16:00 98.2 83 25 171/119 (136) 89 06/28/20 16:00 26 Mechanical Ventilator 100 06/28/20 16:00 26 139/60 Mechanical Ventilator 100 06/28/20 16:00 80 06/28/20 15:45 76 26 136/64 (88) 91 06/28/20 15:30 73 26 136/63 (87) 87 06/28/20 15:15 74 26 133/66 (88) 88 06/28/20 15:05 74 25 80 06/28/20 15:00 73 25 139/66 (90) 88 06/28/20 15:00 26 Mechanical Ventilator 100 06/28/20 15:00 26 133/66 Mechanical Ventilator 100 06/28/20 14:45 72 28 141/71 (94) 89 06/28/20 14:30 72 25 130/65 (86) 90 06/28/20 14:15 71 24 125/62 (83) 91 06/28/20 14:00 24 Mechanical Ventilator 100 06/28/20 14:00 24 125/62 Mechanical Ventilator 100 06/28/20 14:00 71 24 124/62 (82) 91 06/28/20 13:45 72 25 124/62 (82) 91 06/28/20 13:30 70 25 125/63 (83) 90 06/28/20 13:15 71 26 124/62 (82) 89 06/28/20 13:00 71 26 124/62 (82) 89 06/28/20 13:00 25 Mechanical Ventilator 100 06/28/20 13:00 25 124/62 Mechanical Ventilator 100 06/28/20 13:00 75 27 132/66 (88) 88 06/28/20 12:30 69 25 119/62 (81) 90 06/28/20 12:30 77 27 148/71 (96) 91 06/28/20 12:29 24 120/58 Mechanical Ventilator 100 06/28/20 12:00 97.7 73 25 122/59 (80) 89 06/28/20 12:00 80 06/28/20 12:00 70 24 120/58 (78) 91 06/28/20 12:00 Mechanical Ventilator Mechanical Ventilator 06/28/20 12:00 26 Mechanical Ventilator 100 06/28/20 12:00 26 120/58 Mechanical Ventilator 100 06/28/20 12:00 70 06/28/20 11:45 74 23 124/62 (82) 82 06/28/20 11:30 75 24 124/62 (82) 95 06/28/20 11:30 78 23 121/57 (78) 100 06/28/20 11:15 83 23 136/65 (88) 81 06/28/20 11:12 78 23 80 06/28/20 11:00 85 22 148/64 (92) 94 06/28/20 11:00 23 Mechanical Ventilator 100 06/28/20 11:00 23 136/65 Mechanical Ventilator 100 06/28/20 11:00 83 23 136/65 (88) 95 06/28/20 10:45 84 22 150/57 (88) 90 06/28/20 10:30 81 21 145/59 (87) 91 06/28/20 10:29 83 157/61 06/28/20 10:15 81 22 157/61 (93) 91 06/28/20 10:00 22 Mechanical Ventilator 100 06/28/20 10:00 22 157/61 Mechanical Ventilator 100 06/28/20 10:00 82 21 157/61 (93) 91 06/28/20 09:45 82 21 142/64 (90) 90 06/28/20 09:30 82 20 152/61 (91) 91 06/28/20 09:15 83 21 149/58 (88) 90 06/28/20 09:00 81 21 149/58 (88) 90 06/28/20 09:00 21 Mechanical Ventilator 100 06/28/20 09:00 21 149/58 Mechanical Ventilator 100 06/28/20 08:45 81 20 148/60 (89) 91 06/28/20 08:30 81 21 142/62 (88) 91 06/28/20 08:15 97.8 82 21 142/62 (88) 91 06/28/20 08:00 80 06/28/20 08:00 21 Mechanical Ventilator 100 06/28/20 08:00 21 142/62 Mechanical Ventilator 100 06/28/20 08:00 81 21 146/62 (90) 92 06/28/20 08:00 81 21 142/62 (88) 91 06/28/20 08:00 Mechanical Ventilator Mechanical Ventilator 06/28/20 08:00 81 06/28/20 07:45 79 22 147/62 (90) 91 06/28/20 07:30 79 21 153/64 (93) 91 06/28/20 07:15 83 21 80 06/28/20 07:15 80 22 150/62 (91) 91 06/28/20 07:00 79 21 143/63 (89) 91 06/28/20 07:00 21 Mechanical Ventilator 80 06/28/20 07:00 21 143/63 Mechanical Ventilator 80 Intake and Output 06/29/20 06/30/20 19:00 07:00 Intake Total 1658.6667 ml 1200.1 ml Output Total 1860 ml 380 ml Balance -201.3333 ml 820.1 ml Intake Free Water 90 ml IV Total 1068.6667 ml 610.1 ml Tube Feeding 500 ml 440 ml Other 150 ml Output Urine Total 1860 ml 380 ml Labs Test 06/27/20 11:42 06/27/20 23:22 06/28/20 04:40 06/28/20 05:09 POC Whole Blood Glucose 128 MG/DL (74-106) 124 MG/DL (74-106) Sodium Level 145 MMOL/L (136-145) Potassium Level 4.8 MMOL/L (3.5-5.1) Chloride Level 112 MMOL/L (98-107) Carbon Dioxide Level 31 MMOL/L (21-32) Anion Gap 2 mmol/L (5-15) Blood Urea Nitrogen 26 mg/dL (7-18) Creatinine 0.5 MG/DL (0.55-1.30) Estimat Glomerular Filtration Rate > 60 mL/min (>60) Glucose Level 106 MG/DL (74-106) Uric Acid 1.9 MG/DL (2.6-7.2) Calcium Level 7.9 MG/DL (8.5-10.1) Phosphorus Level 2.4 MG/DL (2.5-4.9) Magnesium Level 2.4 MG/DL (1.8-2.4) Total Bilirubin 0.5 MG/DL (0.2-1.0) Aspartate Amino Transf (AST/SGOT) 50 U/L (15-37) Alanine Aminotransferase (ALT/SGPT) 46 U/L (12-78) Alkaline Phosphatase 73 U/L (46-116) Total Protein 5.6 G/DL (6.4-8.2) Albumin 1.9 G/DL (3.4-5.0) Globulin 3.7 g/dL Albumin/Globulin Ratio 0.5 (1.0-2.7) Test 06/29/20 05:05 06/29/20 12:31 06/30/20 04:25 White Blood Count 10.1 K/UL (4.8-10.8) 9.2 K/UL (4.8-10.8) Red Blood Count 3.80 M/UL (4.20-5.40) 3.48 M/UL (4.20-5.40) Hemoglobin 11.4 G/DL (12.0-16.0) 10.8 G/DL (12.0-16.0) Hematocrit 35.6 % (37.0-47.0) 32.8 % (37.0-47.0) Mean Corpuscular Volume 94 FL (80-99) 94 FL (80-99) Mean Corpuscular Hemoglobin 30.0 PG (27.0-31.0) 30.9 PG (27.0-31.0) Mean Corpuscular Hemoglobin Concent 32.1 G/DL (32.0-36.0) 32.8 G/DL (32.0-36.0) Red Cell Distribution Width 14.7 % (11.6-14.8) 15.1 % (11.6-14.8) Platelet Count 124 K/UL (150-450) 77 K/UL (150-450) Mean Platelet Volume 7.0 FL (6.5-10.1) 7.7 FL (6.5-10.1) Neutrophils (%) (Auto) % (45.0-75.0) % (45.0-75.0) Lymphocytes (%) (Auto) % (20.0-45.0) % (20.0-45.0) Monocytes (%) (Auto) % (1.0-10.0) % (1.0-10.0) Eosinophils (%) (Auto) % (0.0-3.0) % (0.0-3.0) Basophils (%) (Auto) % (0.0-2.0) % (0.0-2.0) Differential Total Cells Counted 100 Neutrophils % (Manual) 91 % (45-75) Lymphocytes % (Manual) 6 % (20-45) Monocytes % (Manual) 3 % (1-10) Eosinophils % (Manual) 0 % (0-3) Basophils % (Manual) 0 % (0-2) Band Neutrophils 0 % (0-8) Platelet Estimate Decreased Platelet Morphology Normal Anisocytosis 1+ Sodium Level 146 MMOL/L (136-145) 146 MMOL/L (136-145) Potassium Level 3.4 MMOL/L (3.5-5.1) 3.5 MMOL/L (3.5-5.1) Chloride Level 109 MMOL/L (98-107) 109 MMOL/L (98-107) Carbon Dioxide Level 33 MMOL/L (21-32) 36 MMOL/L (21-32) Anion Gap 4 mmol/L (5-15) 1 mmol/L (5-15) Blood Urea Nitrogen 23 mg/dL (7-18) 21 mg/dL (7-18) Creatinine 0.5 MG/DL (0.55-1.30) 0.5 MG/DL (0.55-1.30) Estimat Glomerular Filtration Rate > 60 mL/min (>60) > 60 mL/min (>60) Glucose Level 118 MG/DL (74-106) 173 MG/DL (74-106) Uric Acid 2.0 MG/DL (2.6-7.2) Calcium Level 7.8 MG/DL (8.5-10.1) 7.4 MG/DL (8.5-10.1) Phosphorus Level 1.6 MG/DL (2.5-4.9) 2.3 MG/DL (2.5-4.9) Magnesium Level 2.4 MG/DL (1.8-2.4) 2.2 MG/DL (1.8-2.4) Total Bilirubin 0.8 MG/DL (0.2-1.0) Direct Bilirubin 0.4 MG/DL (0.0-0.3) Aspartate Amino Transf (AST/SGOT) 69 U/L (15-37) 60 U/L (15-37) Alanine Aminotransferase (ALT/SGPT) 63 U/L (12-78) 59 U/L (12-78) Alkaline Phosphatase 83 U/L (46-116) 98 U/L (46-116) C-Reactive Protein, Quantitative 6.9 mg/dL (0.00-0.90) 16.0 mg/dL (0.00-0.90) Pro-B-Type Natriuretic Peptide 183 pg/mL (0-125) 131 pg/mL (0-125) Total Protein 5.3 G/DL (6.4-8.2) 5.2 G/DL (6.4-8.2) Albumin 1.9 G/DL (3.4-5.0) 1.5 G/DL (3.4-5.0) POC Whole Blood Glucose 176 MG/DL (74-106) Globulin 3.7 g/dL Albumin/Globulin Ratio 0.4 (1.0-2.7) Height (Feet): 5 Height (Inches): 2.00 Weight (Pounds): 138 Objective Physical Exam Vitals: reviewed, abnormal - Interpreted as low by me General: GCS 15 - Sometimes slightly confused, non-toxic, mild distress Head: normocephalic, moist mucus membranes Neck: supple Respiratory: no retraction, no accessory muscle use, respiratory distress - Minimal with tachypnea, crackles Cardiovascular: regular rate, rhythm, no edema Gastrointestinal: normal inspection, non tender, soft Genitourinary: no CVA tenderness Musculoskeletal: back normal Neurologic: alert, oriented x3, grossly normal Psychiatric: mood/affect normal - sometimes confused Skin: no rash, warm/dry Jj Swann MD Jun 30, 2020 06:30
--- NOTE | 2020-06-30 07:10 | NUR ---
NURSE HAND-OFF REPORT: Latest Vital Signs: Temperature 97.7 , Pulse 92 , B/P 142 /67 , Respiratory Rate 32 , O2 SAT 90 , Mechanical Ventilator, O2 Flow Rate . Vital Sign Comment: EKG Rhythm: Sinus Rhythm Rhythm change?: N MD Notified?: N - MD Response: Latest Carney Fall Score: 50 Fall Risk: High Risk Safety Measures: Call light Within Reach, Bed Alarm Zone 2, Side Rails Side Rails x3, Bed position Low and Locked. Fall Precautions: Yellow Socks Door Sign Patient Fall Education Report given to NORMAN BRASHER.
[2020-06-30 07:19] LABS: BILIRUBIN,TOTAL 0.9 MG/DL (0.2-1.0)
[2020-06-30] MEDS: Pantoprazole Inj IVP SCH ×2 (08:28→20:31)
[2020-06-30] MEDS: Docusate 100mg/10ml Liq NG SCH ×3 (08:28→18:39)
[2020-06-30] MEDS: Vitamin D 1000 units Tab GT SCH (08:30)
[2020-06-30] MEDS: Carvedilol 6.25mg Tab ORAL SCH ×2 (08:30→20:32)
--- NOTE | 2020-06-30 10:23 | Cardiac Electrophysiology PN ---
Assessment/Plan Assessment/Plan 1. Respiratory failure likely due to COVID pneumonia. Intubated on 100% Fio2. Echocardiogram showed ejection fraction within normal range. 2. Bilateral pneumothoraces. S/P bilateral chest tube placement with around 10-20 cc drainage 3. Troponin elevation. Levels are low and flat could be demand ischemia vs Renal failure EKG shows sinus tachycardia at 110 beats per minute. 4. Hypernatremia with sodium of 155. Resolved 5. Volume overload. On Lasix 40 iv daily 6. COVID-19 positive and is in isolation, on dexamethasone, completed Remdesivir. 7. Hypertension, on Coreg 6.25 mg b.i.d. and Lasix DW RN Subjective Subjective Intubated in ICU on Fentanyl drip and Versed drip. Has bilateral chest tube with around 10-[address] drainage. On 100% Fio2, PEEP 8 . Off pressors On iv Lasix Objective Last 24 Hour Vital Signs Date Time Temp Pulse Resp B/P (MAP) Pulse Ox O2 Delivery O2 Flow Rate FiO2 06/30/20 08:30 103 159/69 06/30/20 07:00 33 149/65 Mechanical Ventilator 100 06/30/20 07:00 33 Mechanical Ventilator 100 06/30/20 07:00 94 33 149/65 (93) 90 06/30/20 06:45 92 32 142/67 (92) 90 06/30/20 06:30 93 33 162/70 (100) 93 06/30/20 06:15 90 31 138/68 (91) 93 06/30/20 06:00 30 138/61 Mechanical Ventilator 100 06/30/20 06:00 30 Mechanical Ventilator 100 06/30/20 06:00 89 30 138/61 (86) 93 06/30/20 05:45 88 29 136/60 (85) 93 06/30/20 05:30 86 29 126/61 (82) 92 06/30/20 05:30 30 126/61 Mechanical Ventilator 100 06/30/20 05:15 29 126/63 Mechanical Ventilator 100 06/30/20 05:00 30 126/63 Mechanical Ventilator 100 06/30/20 05:00 30 Mechanical Ventilator 100 06/30/20 05:00 86 30 126/63 (84) 91 06/30/20 04:30 87 30 125/65 (85) 91 06/30/20 04:15 26 Mechanical Ventilator 100 06/30/20 04:00 85 06/30/20 04:00 28 109/56 Mechanical Ventilator 100 06/30/20 04:00 26 Mechanical Ventilator 100 06/30/20 04:00 Mechanical Ventilator Mechanical Ventilator 06/30/20 04:00 100 06/30/20 04:00 97.7 85 28 109/56 (73) 95 06/30/20 03:30 88 30 100 06/30/20 03:30 85 28 102/52 (69) 95 06/30/20 03:15 28 Mechanical Ventilator 100 06/30/20 03:00 88 26 90/52 (65) 96 06/30/20 03:00 26 90/52 Mechanical Ventilator 100 06/30/20 03:00 26 Mechanical Ventilator 100 06/30/20 02:00 23 104/53 Mechanical Ventilator 100 06/30/20 02:00 23 Mechanical Ventilator 100 06/30/20 02:00 93 23 104/53 (70) 93 06/30/20 01:45 23 Mechanical Ventilator 100 06/30/20 01:30 26 104/51 Mechanical Ventilator 100 06/30/20 01:30 26 Mechanical Ventilator 100 06/30/20 01:30 97 26 104/51 (68) 93 06/30/20 01:15 26 Mechanical Ventilator 100 06/30/20 01:00 97 26 105/52 (69) 93 06/30/20 01:00 26 105/52 Mechanical Ventilator 100 06/30/20 01:00 26 Mechanical Ventilator 100 06/30/20 00:30 97 27 109/53 (71) 92 06/30/20 00:00 100 06/30/20 00:00 Mechanical Ventilator Mechanical Ventilator 06/30/20 00:00 28 106/51 Mechanical Ventilator 100 06/30/20 00:00 28 Mechanical Ventilator 100 06/30/20 00:00 99.3 96 28 106/51 (69) 92 06/30/20 00:00 96 06/29/20 23:48 28 Mechanical Ventilator 100 06/29/20 23:30 110 28 100 06/29/20 23:00 94 27 97/52 (67) 93 06/29/20 23:00 27 97/52 Mechanical Ventilator 100 06/29/20 23:00 27 Mechanical Ventilator 100 06/29/20 22:30 95 27 94/49 (64) 95 06/29/20 22:00 93 27 89/26 (47) 92 06/29/20 22:00 27 89/26 Mechanical Ventilator 100 06/29/20 22:00 27 Mechanical Ventilator 100 06/29/20 21:00 31 107/51 Mechanical Ventilator 100 06/29/20 21:00 31 Mechanical Ventilator 100 06/29/20 21:00 99.9 107 31 107/51 (69) 90 06/29/20 20:42 108 123/56 06/29/20 20:31 99.9 06/29/20 20:03 33 142/63 Mechanical Ventilator 100 06/29/20 20:00 Mechanical Ventilator Mechanical Ventilator 06/29/20 20:00 100.7 113 33 142/63 (89) 87 06/29/20 20:00 33 Mechanical Ventilator 100 06/29/20 20:00 33 142/63 Mechanical Ventilator 100 06/29/20 20:00 100 06/29/20 19:43 110 32 100 06/29/20 19:34 111 06/29/20 19:00 108 32 122/62 (82) 88 06/29/20 19:00 32 Mechanical Ventilator 100 06/29/20 19:00 32 122/62 Mechanical Ventilator 100 06/29/20 18:30 105 33 120/60 (80) 89 06/29/20 18:00 104 34 115/61 (79) 88 06/29/20 17:30 104 33 118/61 (80) 88 06/29/20 17:00 34 Mechanical Ventilator 100 06/29/20 17:00 34 114/63 Mechanical Ventilator 100 06/29/20 17:00 105 34 114/63 (80) 87 06/29/20 16:30 107 34 112/62 (79) 86 06/29/20 16:00 100 06/29/20 16:00 99.0 105 35 107/58 (74) 87 06/29/20 16:00 33 Mechanical Ventilator 100 06/29/20 16:00 33 112/62 Mechanical Ventilator 100 06/29/20 16:00 Mechanical Ventilator Mechanical Ventilator 06/29/20 15:30 106 32 133/74 (93) 83 06/29/20 15:21 104 38 100 06/29/20 15:00 108 33 120/61 (80) 84 06/29/20 15:00 33 100 06/29/20 15:00 33 133/74 Mechanical Ventilator 100 06/29/20 14:30 109 33 122/57 (78) 86 06/29/20 14:00 33 Mechanical Ventilator 100 06/29/20 14:00 33 122/57 Mechanical Ventilator 100 06/29/20 14:00 109 34 112/75 (87) 85 06/29/20 13:30 107 34 147/53 (84) 84 06/29/20 13:00 34 Mechanical Ventilator 100 06/29/20 13:00 34 147/53 Mechanical Ventilator 100 06/29/20 13:00 105 33 140/63 (88) 84 06/29/20 12:30 103 34 134/47 (76) 82 06/29/20 12:00 100 06/29/20 12:00 33 Non-Rebreather 100 06/29/20 12:00 33 134/47 Mechanical Ventilator 100 06/29/20 12:00 99.6 98 27 144/56 (85) 76 06/29/20 12:00 Mechanical Ventilator Mechanical Ventilator 06/29/20 11:45 91 31 06/29/20 11:30 91 31 155/81 (105) 06/29/20 11:17 89 33 100 06/29/20 11:15 92 32 96 06/29/20 11:11 90 131/63 06/29/20 11:00 32 Mechanical Ventilator 100 06/29/20 11:00 32 155/81 Mechanical Ventilator 100 06/29/20 11:00 91 33 131/63 (85) 92 06/29/20 10:45 93 33 92 06/29/20 10:30 94 32 137/76 (96) 93 Intake and Output 06/29/20 06/30/20 19:00 07:00 Intake Total 1658.6667 ml 1590.85 ml Output Total 1860 ml 580 ml Balance -201.3333 ml 1010.85 ml Intake Free Water 90 ml IV Total 1068.6667 ml 835.85 ml Tube Feeding 500 ml 605 ml Other 150 ml Output Urine Total 1860 ml 550 ml Chest Tube Drainage Total 30 ml Laboratory Tests Test 06/29/20 12:31 06/30/20 04:25 POC Whole Blood Glucose 176 MG/DL (74-106) H White Blood Count 9.2 K/UL (4.8-10.8) Red Blood Count 3.48 M/UL (4.20-5.40) L Hemoglobin 10.8 G/DL (12.0-16.0) L Hematocrit 32.8 % (37.0-47.0) L Mean Corpuscular Volume 94 FL (80-99) Mean Corpuscular Hemoglobin 30.9 PG (27.0-31.0) Mean Corpuscular Hemoglobin Concent 32.8 G/DL (32.0-36.0) Red Cell Distribution Width 15.1 % (11.6-14.8) H Platelet Count 77 K/UL (150-450) L Mean Platelet Volume 7.7 FL (6.5-10.1) Neutrophils (%) (Auto) % (45.0-75.0) Lymphocytes (%) (Auto) % (20.0-45.0) Monocytes (%) (Auto) % (1.0-10.0) Eosinophils (%) (Auto) % (0.0-3.0) Basophils (%) (Auto) % (0.0-2.0) Differential Total Cells Counted 100 Neutrophils % (Manual) 92 % (45-75) H Lymphocytes % (Manual) 6 % (20-45) L Monocytes % (Manual) 2 % (1-10) Eosinophils % (Manual) 0 % (0-3) Basophils % (Manual) 0 % (0-2) Band Neutrophils 0 % (0-8) Platelet Estimate Decreased L Platelet Morphology Normal Polychromasia 1+ Hypochromasia 1+ Anisocytosis 1+ Sodium Level 146 MMOL/L (136-145) H Potassium Level 3.5 MMOL/L (3.5-5.1) Chloride Level 109 MMOL/L (98-107) H Carbon Dioxide Level 36 MMOL/L (21-32) H Anion Gap 1 mmol/L (5-15) L Blood Urea Nitrogen 21 mg/dL (7-18) H Creatinine 0.5 MG/DL (0.55-1.30) L Estimat Glomerular Filtration Rate > 60 mL/min (>60) Glucose Level 173 MG/DL (74-106) H Calcium Level 7.4 MG/DL (8.5-10.1) L Phosphorus Level 2.3 MG/DL (2.5-4.9) L Magnesium Level 2.2 MG/DL (1.8-2.4) Total Bilirubin 0.9 MG/DL (0.2-1.0) Aspartate Amino Transf (AST/SGOT) 60 U/L (15-37) H Alanine Aminotransferase (ALT/SGPT) 59 U/L (12-78) Alkaline Phosphatase 98 U/L (46-116) C-Reactive Protein, Quantitative 16.0 mg/dL (0.00-0.90) H Pro-B-Type Natriuretic Peptide 131 pg/mL (0-125) H Total Protein 5.2 G/DL (6.4-8.2) L Albumin 1.5 G/DL (3.4-5.0) L Globulin 3.7 g/dL Albumin/Globulin Ratio 0.4 (1.0-2.7) L Objective HEAD AND NECK: No JVD.Orally intubated with SQ emphysema LUNGS: Coarse rhonchi bilaterally. Bilateral chest tubes in. CARDIOVASCULAR: Regular S1 and S2 and tachycardic. ABDOMEN: Soft. EXTREMITIES: No pitting edema. Maxwell Carreon MD Jun 30, 2020 10:23
--- NOTE | 2020-06-30 10:35 | Infectious Diseases Prog Note ---
Assessment/Plan Assessment/Plan A; Sepsis COVID19 pneumonia Hypoxic respiratory failure Acute kidney injury, resolving Hyperglycemia, DM type 2 Bilateral pneumothorax Leukocytosis resolved Anemia P; Finished Remdesivir & Dexamethasone course Poor prognosis Subjective ROS Limited/Unobtainable: Yes Constitutional: Reports: fever, other - low grade Neurologic: Reports: other - sedated Allergies: Coded Allergies: No Known Allergies (Unverified , 06/17/20) Objective Last 24 Hour Vital Signs Date Time Temp Pulse Resp B/P (MAP) Pulse Ox O2 Delivery O2 Flow Rate FiO2 06/30/20 10:00 33 133/80 Mechanical Ventilator 100 06/30/20 10:00 33 Mechanical Ventilator 100 06/30/20 09:00 24 156/75 100 06/30/20 09:00 34 Mechanical Ventilator 100 06/30/20 08:30 103 159/69 06/30/20 08:00 35 162/66 Mechanical Ventilator 100 06/30/20 08:00 35 Mechanical Ventilator 100 06/30/20 07:00 33 149/65 Mechanical Ventilator 100 06/30/20 07:00 33 Mechanical Ventilator 100 06/30/20 07:00 94 33 149/65 (93) 90 06/30/20 06:45 92 32 142/67 (92) 90 06/30/20 06:30 93 33 162/70 (100) 93 06/30/20 06:15 90 31 138/68 (91) 93 06/30/20 06:00 30 138/61 Mechanical Ventilator 100 06/30/20 06:00 30 Mechanical Ventilator 100 06/30/20 06:00 89 30 138/61 (86) 93 06/30/20 05:45 88 29 136/60 (85) 93 06/30/20 05:30 86 29 126/61 (82) 92 06/30/20 05:30 30 126/61 Mechanical Ventilator 100 06/30/20 05:15 29 126/63 Mechanical Ventilator 100 06/30/20 05:00 30 126/63 Mechanical Ventilator 100 06/30/20 05:00 30 Mechanical Ventilator 100 06/30/20 05:00 86 30 126/63 (84) 91 06/30/20 04:30 87 30 125/65 (85) 91 06/30/20 04:15 26 Mechanical Ventilator 100 06/30/20 04:00 85 06/30/20 04:00 28 109/56 Mechanical Ventilator 100 06/30/20 04:00 26 Mechanical Ventilator 100 06/30/20 04:00 Mechanical Ventilator Mechanical Ventilator 06/30/20 04:00 100 06/30/20 04:00 97.7 85 28 109/56 (73) 95 06/30/20 03:30 88 30 100 06/30/20 03:30 85 28 102/52 (69) 95 06/30/20 03:15 28 Mechanical Ventilator 100 06/30/20 03:00 88 26 90/52 (65) 96 06/30/20 03:00 26 90/52 Mechanical Ventilator 100 06/30/20 03:00 26 Mechanical Ventilator 100 06/30/20 02:00 23 104/53 Mechanical Ventilator 100 06/30/20 02:00 23 Mechanical Ventilator 100 06/30/20 02:00 93 23 104/53 (70) 93 06/30/20 01:45 23 Mechanical Ventilator 100 06/30/20 01:30 26 104/51 Mechanical Ventilator 100 06/30/20 01:30 26 Mechanical Ventilator 100 06/30/20 01:30 97 26 104/51 (68) 93 06/30/20 01:15 26 Mechanical Ventilator 100 06/30/20 01:00 97 26 105/52 (69) 93 06/30/20 01:00 26 105/52 Mechanical Ventilator 100 06/30/20 01:00 26 Mechanical Ventilator 100 06/30/20 00:30 97 27 109/53 (71) 92 06/30/20 00:00 100 06/30/20 00:00 Mechanical Ventilator Mechanical Ventilator 06/30/20 00:00 28 106/51 Mechanical Ventilator 100 06/30/20 00:00 28 Mechanical Ventilator 100 06/30/20 00:00 99.3 96 28 106/51 (69) 92 06/30/20 00:00 96 06/29/20 23:48 28 Mechanical Ventilator 100 06/29/20 23:30 110 28 100 06/29/20 23:00 94 27 97/52 (67) 93 06/29/20 23:00 27 97/52 Mechanical Ventilator 100 06/29/20 23:00 27 Mechanical Ventilator 100 06/29/20 22:30 95 27 94/49 (64) 95 06/29/20 22:00 93 27 89/26 (47) 92 2/8/21 22:00 27 89/26 Mechanical Ventilator 100 06/29/20 22:00 27 Mechanical Ventilator 100 06/29/20 21:00 31 107/51 Mechanical Ventilator 100 06/29/20 21:00 31 Mechanical Ventilator 100 06/29/20 21:00 99.9 107 31 107/51 (69) 90 06/29/20 20:42 108 123/56 06/29/20 20:31 99.9 06/29/20 20:03 33 142/63 Mechanical Ventilator 100 06/29/20 20:00 Mechanical Ventilator Mechanical Ventilator 06/29/20 20:00 100.7 113 33 142/63 (89) 87 06/29/20 20:00 33 Mechanical Ventilator 100 06/29/20 20:00 33 142/63 Mechanical Ventilator 100 06/29/20 20:00 100 06/29/20 19:43 110 32 100 06/29/20 19:34 111 06/29/20 19:00 108 32 122/62 (82) 88 06/29/20 19:00 32 Mechanical Ventilator 100 06/29/20 19:00 32 122/62 Mechanical Ventilator 100 06/29/20 18:30 105 33 120/60 (80) 89 06/29/20 18:00 104 34 115/61 (79) 88 06/29/20 17:30 104 33 118/61 (80) 88 06/29/20 17:00 34 Mechanical Ventilator 100 06/29/20 17:00 34 114/63 Mechanical Ventilator 100 06/29/20 17:00 105 34 114/63 (80) 87 06/29/20 16:30 107 34 112/62 (79) 86 06/29/20 16:00 100 06/29/20 16:00 99.0 105 35 107/58 (74) 87 06/29/20 16:00 33 Mechanical Ventilator 100 06/29/20 16:00 33 112/62 Mechanical Ventilator 100 06/29/20 16:00 Mechanical Ventilator Mechanical Ventilator 06/29/20 15:30 106 32 133/74 (93) 83 06/29/20 15:21 104 38 100 06/29/20 15:00 108 33 120/61 (80) 84 06/29/20 15:00 33 100 06/29/20 15:00 33 133/74 Mechanical Ventilator 100 06/29/20 14:30 109 33 122/57 (78) 86 06/29/20 14:00 33 Mechanical Ventilator 100 06/29/20 14:00 33 122/57 Mechanical Ventilator 100 06/29/20 14:00 109 34 112/75 (87) 85 06/29/20 13:30 107 34 147/53 (84) 84 06/29/20 13:00 34 Mechanical Ventilator 100 06/29/20 13:00 34 147/53 Mechanical Ventilator 100 06/29/20 13:00 105 33 140/63 (88) 84 06/29/20 12:30 103 34 134/47 (76) 82 06/29/20 12:00 100 06/29/20 12:00 33 Non-Rebreather 100 06/29/20 12:00 33 134/47 Mechanical Ventilator 100 06/29/20 12:00 99.6 98 27 144/56 (85) 76 06/29/20 12:00 Mechanical Ventilator Mechanical Ventilator 06/29/20 11:45 91 31 06/29/20 11:30 91 31 155/81 (105) 06/29/20 11:17 89 33 100 06/29/20 11:15 92 32 96 06/29/20 11:11 90 131/63 06/29/20 11:00 32 Mechanical Ventilator 100 06/29/20 11:00 32 155/81 Mechanical Ventilator 100 06/29/20 11:00 91 33 131/63 (85) 92 06/29/20 10:45 93 33 92 Height (Feet): 5 Height (Inches): 2.00 Weight (Pounds): 138 HEENT: other - orally intubated, Respiratory/Chest: other - on ventilator , UFD2=654%, bilateral chest tubes Cardiovascular: tachycardia Abdomen: other - edema Neurologic/Psychiatric: other - sedated Laboratory Tests Test 06/29/20 12:31 06/30/20 04:25 POC Whole Blood Glucose 176 MG/DL (74-106) H White Blood Count 9.2 K/UL (4.8-10.8) Red Blood Count 3.48 M/UL (4.20-5.40) L Hemoglobin 10.8 G/DL (12.0-16.0) L Hematocrit 32.8 % (37.0-47.0) L Mean Corpuscular Volume 94 FL (80-99) Mean Corpuscular Hemoglobin 30.9 PG (27.0-31.0) Mean Corpuscular Hemoglobin Concent 32.8 G/DL (32.0-36.0) Red Cell Distribution Width 15.1 % (11.6-14.8) H Platelet Count 77 K/UL (150-450) L Mean Platelet Volume 7.7 FL (6.5-10.1) Neutrophils (%) (Auto) % (45.0-75.0) Lymphocytes (%) (Auto) % (20.0-45.0) Monocytes (%) (Auto) % (1.0-10.0) Eosinophils (%) (Auto) % (0.0-3.0) Basophils (%) (Auto) % (0.0-2.0) Differential Total Cells Counted 100 Neutrophils % (Manual) 92 % (45-75) H Lymphocytes % (Manual) 6 % (20-45) L Monocytes % (Manual) 2 % (1-10) Eosinophils % (Manual) 0 % (0-3) Basophils % (Manual) 0 % (0-2) Band Neutrophils 0 % (0-8) Platelet Estimate Decreased L Platelet Morphology Normal Polychromasia 1+ Hypochromasia 1+ Anisocytosis 1+ Sodium Level 146 MMOL/L (136-145) H Potassium Level 3.5 MMOL/L (3.5-5.1) Chloride Level 109 MMOL/L (98-107) H Carbon Dioxide Level 36 MMOL/L (21-32) H Anion Gap 1 mmol/L (5-15) L Blood Urea Nitrogen 21 mg/dL (7-18) H Creatinine 0.5 MG/DL (0.55-1.30) L Estimat Glomerular Filtration Rate > 60 mL/min (>60) Glucose Level 173 MG/DL (74-106) H Calcium Level 7.4 MG/DL (8.5-10.1) L Phosphorus Level 2.3 MG/DL (2.5-4.9) L Magnesium Level 2.2 MG/DL (1.8-2.4) Total Bilirubin 0.9 MG/DL (0.2-1.0) Aspartate Amino Transf (AST/SGOT) 60 U/L (15-37) H Alanine Aminotransferase (ALT/SGPT) 59 U/L (12-78) Alkaline Phosphatase 98 U/L (46-116) C-Reactive Protein, Quantitative 16.0 mg/dL (0.00-0.90) H Pro-B-Type Natriuretic Peptide 131 pg/mL (0-125) H Total Protein 5.2 G/DL (6.4-8.2) L Albumin 1.5 G/DL (3.4-5.0) L Globulin 3.7 g/dL Albumin/Globulin Ratio 0.4 (1.0-2.7) L Current Medications Medications (Trade) Dose Ordered Sig/Maya Route PRN Reason Start Time Stop Time Status Last Admin Dose Admin Acetaminophen (Tylenol) 500 mg Q4H PRN ORAL Mild Pain (Pain Scale 1-3) 06/18/20 00:15 07/18/20 00:14 06/24/20 17:51 Acetaminophen (Tylenol) 500 mg Q4H PRN ORAL Temp >100.5 06/18/20 00:15 07/18/20 00:14 06/29/20 20:01 Carvedilol (Coreg) 6.25 mg EVERY 12 HOURS ORAL 06/22/20 21:00 07/22/20 20:59 06/30/20 08:30 Chlorhexidine Gluconate (Sissy-Hex 2%) 1 applic DAILY@2000 TOPIC 06/28/20 20:00 09/26/20 19:59 06/29/20 19:59 Dextrose (Dextrose 50%) 25 ml Q30M PRN IV Hypoglycemia 06/18/20 14:15 09/16/20 14:14 Dextrose (Dextrose 50%) 50 ml Q30M PRN IV Hypoglycemia 06/18/20 14:15 09/16/20 14:14 Docusate Sodium (Colace) 100 mg THREE TIMES A DAY NG 06/28/20 13:00 07/28/20 12:59 06/30/20 08:28 Enoxaparin Sodium (Lovenox) 40 mg DAILY SUBQ 06/21/20 09:00 09/19/20 08:59 06/29/20 11:10 Fentanyl Citrate 1000 mcg/Sodium Chloride 100 ml @ 1 mls/hr Q24H PRN IV sedation 06/29/20 20:00 07/01/20 19:59 06/29/20 20:03 Furosemide (Lasix) 40 mg DAILY IV 06/28/20 17:45 07/28/20 16:59 06/30/20 08:28 Haloperidol Lactate (Haldol) 10 mg Q6H PRN IM Agitation 06/23/20 11:30 08/07/20 11:29 06/23/20 11:34 Heparin Sodium/ Sodium Chloride (Heparin 1000 units/500ml Premix) 1,000 unit NEEDED PRN IV PICC LINE PLACEMENT 06/28/20 20:00 Insulin Aspart (NovoLOG) while NPO Q6HR SUBQ 06/18/20 18:00 09/16/20 17:59 06/30/20 05:39 Midazolam HCl 100 ml @ 0 mls/hr Q24H PRN IV Per rx protocol 06/30/20 03:00 07/02/20 02:59 Pantoprazole (Protonix) 40 mg EVERY 12 HOURS IVP 06/18/20 21:00 07/18/20 20:59 06/30/20 08:28 Potassium Phosphate 20 mm/ Sodium Chloride 281.6667 ml @ 46.944 m... ONCE IV 06/30/20 11:00 06/30/20 12:00 Sodium Chloride 1,000 ml @ 50 mls/hr Q20H IV 06/26/20 08:00 07/26/20 07:59 06/29/20 16:13 Vitamin D (Vitamin D) 2,000 unit DAILY GT 06/29/20 10:30 07/29/20 10:29 06/30/20 08:30 Raji Turpin MD Jun 30, 2020 10:35
[2020-06-30] MEDS ORDERED: Potassium Phosphate 20 MM in NS 275 ML IV SCH (11:00)
--- NOTE | 2020-06-30 11:03 | Nephrology Progress Note ---
Assessment/Plan Problem List: (1) LEONARDO (acute kidney injury) (2) Dehydration (3) DMII (diabetes mellitus, type 2) (4) Pneumonia due to COVID-19 virus (5) Hypoxia Assessment 70-year-old female presents with COVID-19 pneumonia and hypoxia On admission has BUN of 77 and creatinine of 1.6. Renal failure most likely prerenal and dehydration with possible underlying chronic kidney disease Patient has elevated inflammatory markers Hypoalbuminemia Electrolyte abnormalities Hyperglycemia Plan June 30: Full code. Intubated. Bilateral chest tube. As reviewed. Abnormal electrolytes addressed. June 29: Full code. Intubated. Bilateral chest tube. Unstable pulmonary status. ABG ordered. Electrolyte imbalance addressed. Discussed with NORMAN Montalvo. June 28: Labs reviewed. Abnormal electrolytes addressed. Patient remains full code. Continue per consultants. June 27: No chemistry panel done today. Remains full code. Medication list reviewed. Continue per consultants. Will monitor electrolytes and renal panel in a.m. June 26: Status quo. Remains full code. Labs reviewed. Main IV changed to normal saline 50 cc an hour. Continue per consultants and pulmonary. June 25: Remains intubated. Has bilateral chest tube. Full code. Labs reviewed. Abnormal electrolytes addressed. Albumin bolus given. Continue to monitor renal parameters. Poor prognosis. June 24: Patient in ICU. Intubated. Has bilateral chest tube. Labs reviewed. Renal parameters stable. Low phosphorus addressed. Continue per consultants. Full code. Poor prognosis. June 23: Patient in ICU. Intubated. Due for insertion of a chest tube. Has pneumothorax. Renal parameters are stable. Serum sodium rising. Will adjust IV fluid. Continue per consultants. Patient full code. Prognosis poor. June 22: Labs reviewed. Remains on BiPAP which is not changed to high flow oxygen due to pneumothorax found on chest x-ray. Serum sodium 155. Continues on D5W. Electrolytes within normal limits. Check 2D echocardiogram. Coreg for blood pressure and heart rate. June 21: Status quo. On BiPAP. Full code. Serum sodium 153. Continue D5W. Continue to monitor electrolytes. Continue per consultants. June 20: Patient full code. On BiPAP. Labs reviewed. Serum sodium rising. Will increase D5W to 75 cc an hour. Continue to monitor electrolytes. June 19: IV changed to D5W. Monitor blood sugar. Monitor electrolytes. Medication list reviewed. Patient is being treated for COVID-19 pneumonia. Patient is full code. Previously Pulmonary support IV antibiotics Slow hydration Avoid nephrotoxic Monitor renal parameters Per orders Subjective ROS Limited/Unobtainable: Yes Objective Objective Last 24 Hour Vital Signs Date Time Temp Pulse Resp B/P (MAP) Pulse Ox O2 Delivery O2 Flow Rate FiO2 06/30/20 10:00 33 133/80 Mechanical Ventilator 100 06/30/20 10:00 33 Mechanical Ventilator 100 06/30/20 09:00 24 156/75 100 06/30/20 09:00 34 Mechanical Ventilator 100 06/30/20 08:30 103 159/69 06/30/20 08:00 35 162/66 Mechanical Ventilator 100 06/30/20 08:00 35 Mechanical Ventilator 100 06/30/20 07:00 33 149/65 Mechanical Ventilator 100 06/30/20 07:00 33 Mechanical Ventilator 100 06/30/20 07:00 94 33 149/65 (93) 90 06/30/20 06:45 92 32 142/67 (92) 90 06/30/20 06:30 93 33 162/70 (100) 93 06/30/20 06:15 90 31 138/68 (91) 93 06/30/20 06:00 30 138/61 Mechanical Ventilator 100 06/30/20 06:00 30 Mechanical Ventilator 100 06/30/20 06:00 89 30 138/61 (86) 93 06/30/20 05:45 88 29 136/60 (85) 93 06/30/20 05:30 86 29 126/61 (82) 92 06/30/20 05:30 30 126/61 Mechanical Ventilator 100 06/30/20 05:15 29 126/63 Mechanical Ventilator 100 06/30/20 05:00 30 126/63 Mechanical Ventilator 100 06/30/20 05:00 30 Mechanical Ventilator 100 06/30/20 05:00 86 30 126/63 (84) 91 06/30/20 04:30 87 30 125/65 (85) 91 06/30/20 04:15 26 Mechanical Ventilator 100 06/30/20 04:00 85 06/30/20 04:00 28 109/56 Mechanical Ventilator 100 06/30/20 04:00 26 Mechanical Ventilator 100 06/30/20 04:00 Mechanical Ventilator Mechanical Ventilator 06/30/20 04:00 100 06/30/20 04:00 97.7 85 28 109/56 (73) 95 06/30/20 03:30 88 30 100 06/30/20 03:30 85 28 102/52 (69) 95 06/30/20 03:15 28 Mechanical Ventilator 100 06/30/20 03:00 88 26 90/52 (65) 96 06/30/20 03:00 26 90/52 Mechanical Ventilator 100 06/30/20 03:00 26 Mechanical Ventilator 100 06/30/20 02:00 23 104/53 Mechanical Ventilator 100 06/30/20 02:00 23 Mechanical Ventilator 100 06/30/20 02:00 93 23 104/53 (70) 93 06/30/20 01:45 23 Mechanical Ventilator 100 06/30/20 01:30 26 104/51 Mechanical Ventilator 100 06/30/20 01:30 26 Mechanical Ventilator 100 06/30/20 01:30 97 26 104/51 (68) 93 06/30/20 01:15 26 Mechanical Ventilator 100 06/30/20 01:00 97 26 105/52 (69) 93 06/30/20 01:00 26 105/52 Mechanical Ventilator 100 06/30/20 01:00 26 Mechanical Ventilator 100 06/30/20 00:30 97 27 109/53 (71) 92 06/30/20 00:00 100 06/30/20 00:00 Mechanical Ventilator Mechanical Ventilator 06/30/20 00:00 28 106/51 Mechanical Ventilator 100 06/30/20 00:00 28 Mechanical Ventilator 100 06/30/20 00:00 99.3 96 28 106/51 (69) 92 06/30/20 00:00 96 06/29/20 23:48 28 Mechanical Ventilator 100 06/29/20 23:30 110 28 100 06/29/20 23:00 94 27 97/52 (67) 93 06/29/20 23:00 27 97/52 Mechanical Ventilator 100 06/29/20 23:00 27 Mechanical Ventilator 100 06/29/20 22:30 95 27 94/49 (64) 95 06/29/20 22:00 93 27 89/26 (47) 92 06/29/20 22:00 27 89/26 Mechanical Ventilator 100 06/29/20 22:00 27 Mechanical Ventilator 100 06/29/20 21:00 31 107/51 Mechanical Ventilator 100 06/29/20 21:00 31 Mechanical Ventilator 100 06/29/20 21:00 99.9 107 31 107/51 (69) 90 06/29/20 20:42 108 123/56 06/29/20 20:31 99.9 06/29/20 20:03 33 142/63 Mechanical Ventilator 100 06/29/20 20:00 Mechanical Ventilator Mechanical Ventilator 06/29/20 20:00 100.7 113 33 142/63 (89) 87 06/29/20 20:00 33 Mechanical Ventilator 100 06/29/20 20:00 33 142/63 Mechanical Ventilator 100 06/29/20 20:00 100 06/29/20 19:43 110 32 100 06/29/20 19:34 111 06/29/20 19:00 108 32 122/62 (82) 88 06/29/20 19:00 32 Mechanical Ventilator 100 06/29/20 19:00 32 122/62 Mechanical Ventilator 100 06/29/20 18:30 105 33 120/60 (80) 89 06/29/20 18:00 104 34 115/61 (79) 88 06/29/20 17:30 104 33 118/61 (80) 88 06/29/20 17:00 34 Mechanical Ventilator 100 06/29/20 17:00 34 114/63 Mechanical Ventilator 100 06/29/20 17:00 105 34 114/63 (80) 87 06/29/20 16:30 107 34 112/62 (79) 86 06/29/20 16:00 100 06/29/20 16:00 99.0 105 35 107/58 (74) 87 06/29/20 16:00 33 Mechanical Ventilator 100 06/29/20 16:00 33 112/62 Mechanical Ventilator 100 06/29/20 16:00 Mechanical Ventilator Mechanical Ventilator 06/29/20 15:30 106 32 133/74 (93) 83 06/29/20 15:21 104 38 100 06/29/20 15:00 108 33 120/61 (80) 84 06/29/20 15:00 33 100 06/29/20 15:00 33 133/74 Mechanical Ventilator 100 06/29/20 14:30 109 33 122/57 (78) 86 06/29/20 14:00 33 Mechanical Ventilator 100 06/29/20 14:00 33 122/57 Mechanical Ventilator 100 06/29/20 14:00 109 34 112/75 (87) 85 06/29/20 13:30 107 34 147/53 (84) 84 06/29/20 13:00 34 Mechanical Ventilator 100 06/29/20 13:00 34 147/53 Mechanical Ventilator 100 06/29/20 13:00 105 33 140/63 (88) 84 06/29/20 12:30 103 34 134/47 (76) 82 06/29/20 12:00 100 06/29/20 12:00 33 Non-Rebreather 100 06/29/20 12:00 33 134/47 Mechanical Ventilator 100 06/29/20 12:00 99.6 98 27 144/56 (85) 76 06/29/20 12:00 Mechanical Ventilator Mechanical Ventilator 06/29/20 11:45 91 31 06/29/20 11:30 91 31 155/81 (105) 06/29/20 11:17 89 33 100 06/29/20 11:15 92 32 96 06/29/20 11:11 90 131/63 Intake and Output 06/29/20 06/30/20 19:00 07:00 Intake Total 1658.6667 ml 1590.85 ml Output Total 1860 ml 580 ml Balance -201.3333 ml 1010.85 ml Intake Free Water 90 ml IV Total 1068.6667 ml 835.85 ml Tube Feeding 500 ml 605 ml Other 150 ml Output Urine Total 1860 ml 550 ml Chest Tube Drainage Total 30 ml Current Medications Medications (Trade) Dose Ordered Sig/Maya Route PRN Reason Start Time Stop Time Status Last Admin Dose Admin Acetaminophen (Tylenol) 500 mg Q4H PRN ORAL Mild Pain (Pain Scale 1-3) 06/18/20 00:15 07/18/20 00:14 06/24/20 17:51 Acetaminophen (Tylenol) 500 mg Q4H PRN ORAL Temp >100.5 06/18/20 00:15 07/18/20 00:14 06/29/20 20:01 Carvedilol (Coreg) 6.25 mg EVERY 12 HOURS ORAL 06/22/20 21:00 07/22/20 20:59 06/30/20 08:30 Chlorhexidine Gluconate (Sissy-Hex 2%) 1 applic DAILY@1999 TOPIC 06/28/20 20:00 09/26/20 19:59 06/29/20 19:59 Dextrose (Dextrose 50%) 25 ml Q30M PRN IV Hypoglycemia 06/18/20 14:15 09/16/20 14:14 Dextrose (Dextrose 50%) 50 ml Q30M PRN IV Hypoglycemia 06/18/20 14:15 09/16/20 14:14 Docusate Sodium (Colace) 100 mg THREE TIMES A DAY NG 06/28/20 13:00 07/28/20 12:59 06/30/20 08:28 Enoxaparin Sodium (Lovenox) 40 mg DAILY SUBQ 06/21/20 09:00 09/19/20 08:59 06/29/20 11:10 Fentanyl Citrate 1000 mcg/Sodium Chloride 100 ml @ 1 mls/hr Q24H PRN IV sedation 06/29/20 20:00 07/01/20 19:59 06/29/20 20:03 Furosemide (Lasix) 40 mg DAILY IV 06/28/20 17:45 07/28/20 16:59 06/30/20 08:28 Haloperidol Lactate (Haldol) 10 mg Q6H PRN IM Agitation 06/23/20 11:30 08/07/20 11:29 06/23/20 11:34 Heparin Sodium/ Sodium Chloride (Heparin 1000 units/500ml Premix) 1,000 unit NEEDED PRN IV PICC LINE PLACEMENT 06/28/20 20:00 Insulin Aspart (NovoLOG) while NPO Q6HR SUBQ 06/18/20 18:00 09/16/20 17:59 06/30/20 05:39 Midazolam HCl 100 ml @ 0 mls/hr Q24H PRN IV Per rx protocol 06/30/20 03:00 07/02/20 02:59 Pantoprazole (Protonix) 40 mg EVERY 12 HOURS IVP 06/18/20 21:00 07/18/20 20:59 06/30/20 08:28 Potassium Phosphate 20 mm/ Sodium Chloride 281.6667 ml @ 46.944 m... ONCE IV 06/30/20 11:00 06/30/20 12:00 Sodium Chloride 1,000 ml @ 50 mls/hr Q20H IV 06/26/20 08:00 07/26/20 07:59 06/29/20 16:13 Vitamin D (Vitamin D) 2,000 unit DAILY GT 06/29/20 10:30 07/29/20 10:29 06/30/20 08:30 Laboratory Tests 06/29/20 12:31: POC Whole Blood Glucose 176H 06/30/20 04:25: White Blood Count 9.2, Red Blood Count 3.48L, Hemoglobin 10.8L, Hematocrit 32.8L , Mean Corpuscular Volume 94, Mean Corpuscular Hemoglobin 30.9, Mean Corpuscular Hemoglobin Concent 32.8, Red Cell Distribution Width 15.1H, Platelet Count 77L, Mean Platelet Volume 7.7, Neutrophils (%) (Auto) , Lymphocytes (%) (Auto) , Monocytes (%) (Auto) , Eosinophils (%) (Auto) , Basophils (%) (Auto) , Differential Total Cells Counted 100, Neutrophils % (Manual) 92H, Lymphocytes % (Manual) 6L, Monocytes % (Manual) 2, Eosinophils % (Manual) 0, Basophils % (Manual) 0, Band Neutrophils 0, Platelet Estimate DecreasedL, Platelet Morphology Normal, Polychromasia 1+, Hypochromasia 1+, Anisocytosis 1+, Sodium Level 146H, Potassium Level 3.5, Chloride Level 109H, Carbon Dioxide Level 36H, Anion Gap 1L, Blood Urea Nitrogen 21H, Creatinine 0.5L, Estimat Glomerular Filtration Rate > 60, Glucose Level 173H, Calcium Level 7.4L, Phosphorus Level 2.3L, Magnesium Level 2.2, Total Bilirubin 0.9, Aspartate Amino Transf (AST/SGOT) 60H, Alanine Aminotransferase (ALT/SGPT) 59, Alkaline Phosphatase 98, C-Reactive Protein, Quantitative 16.0H, Pro-B-Type Natriuretic Peptide 131H, Total Protein 5.2L, Albumin 1.5L, Globulin 3.7, Albumin/Globulin Ratio 0.4L Height (Feet): 5 Height (Inches): 2.00 Weight (Pounds): 138 General Appearance: no apparent distress Cardiovascular: tachycardia Respiratory/Chest: decreased breath sounds Abdomen: distended Raza De Jesus MD Jun 30, 2020 11:03
--- NOTE | 2020-06-30 11:48 | Pulmonology Progress Note ---
Subjective ROS Limited/Unobtainable: Yes Interval Events: Remains intubated; bilateral chest tubes in place Constitutional: Reports: fever, other - low grade HEENT: Repors: no symptoms Respiratory: Reports: shortness of breath Cardiovascular: Reports: no symptoms Gastrointestinal/Abdominal: Reports: no symptoms Allergies: Coded Allergies: No Known Allergies (Unverified , 06/17/20) All Systems: reviewed and negative except above Objective Last 24 Hour Vital Signs Date Time Temp Pulse Resp B/P (MAP) Pulse Ox O2 Delivery O2 Flow Rate FiO2 06/30/20 10:00 33 133/80 Mechanical Ventilator 100 06/30/20 10:00 33 Mechanical Ventilator 100 06/30/20 09:00 24 156/75 100 06/30/20 09:00 34 Mechanical Ventilator 100 06/30/20 08:30 103 159/69 06/30/20 08:00 35 162/66 Mechanical Ventilator 100 06/30/20 08:00 35 Mechanical Ventilator 100 06/30/20 07:00 33 149/65 Mechanical Ventilator 100 06/30/20 07:00 33 Mechanical Ventilator 100 06/30/20 07:00 94 33 149/65 (93) 90 06/30/20 06:45 92 32 142/67 (92) 90 06/30/20 06:30 93 33 162/70 (100) 93 06/30/20 06:15 90 31 138/68 (91) 93 06/30/20 06:00 30 138/61 Mechanical Ventilator 100 06/30/20 06:00 30 Mechanical Ventilator 100 06/30/20 06:00 89 30 138/61 (86) 93 06/30/20 05:45 88 29 136/60 (85) 93 06/30/20 05:30 86 29 126/61 (82) 92 06/30/20 05:30 30 126/61 Mechanical Ventilator 100 06/30/20 05:15 29 126/63 Mechanical Ventilator 100 06/30/20 05:00 30 126/63 Mechanical Ventilator 100 06/30/20 05:00 30 Mechanical Ventilator 100 06/30/20 05:00 86 30 126/63 (84) 91 06/30/20 04:30 87 30 125/65 (85) 91 06/30/20 04:15 26 Mechanical Ventilator 100 06/30/20 04:00 85 06/30/20 04:00 28 109/56 Mechanical Ventilator 100 06/30/20 04:00 26 Mechanical Ventilator 100 06/30/20 04:00 Mechanical Ventilator Mechanical Ventilator 06/30/20 04:00 100 06/30/20 04:00 97.7 85 28 109/56 (73) 95 06/30/20 03:30 88 30 100 06/30/20 03:30 85 28 102/52 (69) 95 06/30/20 03:15 28 Mechanical Ventilator 100 06/30/20 03:00 88 26 90/52 (65) 96 06/30/20 03:00 26 90/52 Mechanical Ventilator 100 06/30/20 03:00 26 Mechanical Ventilator 100 06/30/20 02:00 23 104/53 Mechanical Ventilator 100 06/30/20 02:00 23 Mechanical Ventilator 100 06/30/20 02:00 93 23 104/53 (70) 93 06/30/20 01:45 23 Mechanical Ventilator 100 06/30/20 01:30 26 104/51 Mechanical Ventilator 100 06/30/20 01:30 26 Mechanical Ventilator 100 06/30/20 01:30 97 26 104/51 (68) 93 06/30/20 01:15 26 Mechanical Ventilator 100 06/30/20 01:00 97 26 105/52 (69) 93 06/30/20 01:00 26 105/52 Mechanical Ventilator 100 06/30/20 01:00 26 Mechanical Ventilator 100 06/30/20 00:30 97 27 109/53 (71) 92 06/30/20 00:00 100 06/30/20 00:00 Mechanical Ventilator Mechanical Ventilator 06/30/20 00:00 28 106/51 Mechanical Ventilator 100 06/30/20 00:00 28 Mechanical Ventilator 100 06/30/20 00:00 99.3 96 28 106/51 (69) 92 06/30/20 00:00 96 06/29/20 23:48 28 Mechanical Ventilator 100 06/29/20 23:30 110 28 100 06/29/20 23:00 94 27 97/52 (67) 93 06/29/20 23:00 27 97/52 Mechanical Ventilator 100 06/29/20 23:00 27 Mechanical Ventilator 100 06/29/20 22:30 95 27 94/49 (64) 95 06/29/20 22:00 93 27 89/26 (47) 92 2/8/21 22:00 27 89/26 Mechanical Ventilator 100 06/29/20 22:00 27 Mechanical Ventilator 100 06/29/20 21:00 31 107/51 Mechanical Ventilator 100 06/29/20 21:00 31 Mechanical Ventilator 100 06/29/20 21:00 99.9 107 31 107/51 (69) 90 06/29/20 20:42 108 123/56 06/29/20 20:31 99.9 06/29/20 20:03 33 142/63 Mechanical Ventilator 100 06/29/20 20:00 Mechanical Ventilator Mechanical Ventilator 06/29/20 20:00 100.7 113 33 142/63 (89) 87 06/29/20 20:00 33 Mechanical Ventilator 100 06/29/20 20:00 33 142/63 Mechanical Ventilator 100 06/29/20 20:00 100 06/29/20 19:43 110 32 100 06/29/20 19:34 111 06/29/20 19:00 108 32 122/62 (82) 88 06/29/20 19:00 32 Mechanical Ventilator 100 06/29/20 19:00 32 122/62 Mechanical Ventilator 100 06/29/20 18:30 105 33 120/60 (80) 89 06/29/20 18:00 104 34 115/61 (79) 88 06/29/20 17:30 104 33 118/61 (80) 88 06/29/20 17:00 34 Mechanical Ventilator 100 06/29/20 17:00 34 114/63 Mechanical Ventilator 100 06/29/20 17:00 105 34 114/63 (80) 87 06/29/20 16:30 107 34 112/62 (79) 86 06/29/20 16:00 100 06/29/20 16:00 99.0 105 35 107/58 (74) 87 06/29/20 16:00 33 Mechanical Ventilator 100 06/29/20 16:00 33 112/62 Mechanical Ventilator 100 06/29/20 16:00 Mechanical Ventilator Mechanical Ventilator 06/29/20 15:30 106 32 133/74 (93) 83 06/29/20 15:21 104 38 100 06/29/20 15:00 108 33 120/61 (80) 84 06/29/20 15:00 33 100 06/29/20 15:00 33 133/74 Mechanical Ventilator 100 06/29/20 14:30 109 33 122/57 (78) 86 06/29/20 14:00 33 Mechanical Ventilator 100 06/29/20 14:00 33 122/57 Mechanical Ventilator 100 06/29/20 14:00 109 34 112/75 (87) 85 06/29/20 13:30 107 34 147/53 (84) 84 06/29/20 13:00 34 Mechanical Ventilator 100 06/29/20 13:00 34 147/53 Mechanical Ventilator 100 06/29/20 13:00 105 33 140/63 (88) 84 06/29/20 12:30 103 34 134/47 (76) 82 06/29/20 12:00 100 06/29/20 12:00 33 Non-Rebreather 100 06/29/20 12:00 33 134/47 Mechanical Ventilator 100 06/29/20 12:00 99.6 98 27 144/56 (85) 76 06/29/20 12:00 Mechanical Ventilator Mechanical Ventilator Intake and Output 06/29/20 06/30/20 19:00 07:00 Intake Total 1658.6667 ml 1590.85 ml Output Total 1860 ml 580 ml Balance -201.3333 ml 1010.85 ml Intake Free Water 90 ml IV Total 1068.6667 ml 835.85 ml Tube Feeding 500 ml 605 ml Other 150 ml Output Urine Total 1860 ml 550 ml Chest Tube Drainage Total 30 ml General Appearance: no acute distress HEENT: atraumatic Respiratory: crackles/rales Cardiovascular: normal rate Abdomen: soft, non tender Laboratory Tests 06/29/20 12:31: POC Whole Blood Glucose 176H 06/30/20 04:25: White Blood Count 9.2, Red Blood Count 3.48L, Hemoglobin 10.8L, Hematocrit 32.8L , Mean Corpuscular Volume 94, Mean Corpuscular Hemoglobin 30.9, Mean Corpuscular Hemoglobin Concent 32.8, Red Cell Distribution Width 15.1H, Platelet Count 77L, Mean Platelet Volume 7.7, Neutrophils (%) (Auto) , Lymphocytes (%) (Auto) , Monocytes (%) (Auto) , Eosinophils (%) (Auto) , Basophils (%) (Auto) , Differential Total Cells Counted 100, Neutrophils % (Manual) 92H, Lymphocytes % (Manual) 6L, Monocytes % (Manual) 2, Eosinophils % (Manual) 0, Basophils % (Manual) 0, Band Neutrophils 0, Platelet Estimate DecreasedL, Platelet Morphology Normal, Polychromasia 1+, Hypochromasia 1+, Anisocytosis 1+, Sodium Level 146H, Potassium Level 3.5, Chloride Level 109H, Carbon Dioxide Level 36H, Anion Gap 1L, Blood Urea Nitrogen 21H, Creatinine 0.5L, Estimat Glomerular Filtration Rate > 60, Glucose Level 173H, Calcium Level 7.4L, Phosphorus Level 2.3L, Magnesium Level 2.2, Total Bilirubin 0.9, Aspartate Amino Transf (AST/SGOT) 60H, Alanine Aminotransferase (ALT/SGPT) 59, Alkaline Phosphatase 98, C-Reactive Protein, Quantitative 16.0H, Pro-B-Type Natriuretic Peptide 131H, Total Protein 5.2L, Albumin 1.5L, Globulin 3.7, Albumin/Globulin Ratio 0.4L Current Medications Medications (Trade) Dose Ordered Sig/Maya Route PRN Reason Start Time Stop Time Status Last Admin Dose Admin Acetaminophen (Tylenol) 500 mg Q4H PRN ORAL Mild Pain (Pain Scale 1-3) 06/18/20 00:15 07/18/20 00:14 06/24/20 17:51 Acetaminophen (Tylenol) 500 mg Q4H PRN ORAL Temp >100.5 06/18/20 00:15 07/18/20 00:14 06/29/20 20:01 Carvedilol (Coreg) 6.25 mg EVERY 12 HOURS ORAL 06/22/20 21:00 07/22/20 20:59 06/30/20 08:30 Chlorhexidine Gluconate (Sissy-Hex 2%) 1 applic DAILY@1999 TOPIC 06/28/20 20:00 09/26/20 19:59 06/29/20 19:59 Dextrose (Dextrose 50%) 25 ml Q30M PRN IV Hypoglycemia 06/18/20 14:15 09/16/20 14:14 Dextrose (Dextrose 50%) 50 ml Q30M PRN IV Hypoglycemia 06/18/20 14:15 09/16/20 14:14 Docusate Sodium (Colace) 100 mg THREE TIMES A DAY NG 06/28/20 13:00 07/28/20 12:59 06/30/20 08:28 Fentanyl Citrate 1000 mcg/Sodium Chloride 100 ml @ 1 mls/hr Q24H PRN IV sedation 06/29/20 20:00 07/01/20 19:59 06/29/20 20:03 Furosemide (Lasix) 40 mg DAILY IV 06/28/20 17:45 07/28/20 16:59 06/30/20 08:28 Haloperidol Lactate (Haldol) 10 mg Q6H PRN IM Agitation 06/23/20 11:30 08/07/20 11:29 06/23/20 11:34 Heparin Sodium/ Sodium Chloride (Heparin 1000 units/500ml Premix) 1,000 unit NEEDED PRN IV PICC LINE PLACEMENT 06/28/20 20:00 Insulin Aspart (NovoLOG) while NPO Q6HR SUBQ 06/18/20 18:00 09/16/20 17:59 06/30/20 05:39 Midazolam HCl 100 ml @ 0 mls/hr Q24H PRN IV Per rx protocol 06/30/20 03:00 07/02/20 02:59 Pantoprazole (Protonix) 40 mg EVERY 12 HOURS IVP 06/18/20 21:00 07/18/20 20:59 06/30/20 08:28 Potassium Phosphate 20 mm/ Sodium Chloride 281.6667 ml @ 46.944 m... ONCE IV 06/30/20 11:00 06/30/20 12:00 Sodium Chloride 1,000 ml @ 50 mls/hr Q20H IV 06/26/20 08:00 07/26/20 07:59 06/30/20 11:26 Vitamin D (Vitamin D) 2,000 unit DAILY GT 06/29/20 10:30 07/29/20 10:29 06/30/20 08:30 Assessment/Plan Assessment/Plan 1. COVID-19 pneumonia -Intubated, on 80% FiO2. PEEP 5-10. -Will increase PEEP as peak pressures tolerate. SaO2 96% -On Decadron, s/p remdesivir 2. Leukocytosis -Likely secondary to #1 -WBC improving 3. Elevated D-dimer -Venous duplex ultrasound negative for DVT -Was on full dose Lovenox, switched to 40 subcu QD for DVT prophylaxis 4. Renal insufficiency -On IV fluids - nephro following 5. Anemia of chronic disease -Hematology oncology following 6. Sepsis -Status post antibiotics, fluid resuscitation 7. Pneumothorax 06/22/20 - b/l subcutaneous emphysema, pneumomediastinum, probable small left pneumothorax & ? trace right pneumothorax. -Pleur-evac adjusted by RN - placed CT by surgery (bilateral) - Charlie Sewell MD Jun 30, 2020 11:48
--- NOTE | 2020-06-30 12:15 | Surgery Progress Note ---
Surgery Progress Note Subjective Procedure Performed 1. right chest tube insertion 2. left chest tube insertion Additional Comments Bilateral air leak today. Peak pressures down. Ill-appearing. On vent support. Weaning as tolerated. Objective Last 24 Hour Vital Signs Date Time Temp Pulse Resp B/P (MAP) Pulse Ox O2 Delivery O2 Flow Rate FiO2 06/30/20 12:00 120 06/30/20 11:00 33 145/85 Mechanical Ventilator 100 06/30/20 11:00 33 100 06/30/20 10:00 33 133/80 Mechanical Ventilator 100 06/30/20 10:00 33 Mechanical Ventilator 100 06/30/20 09:30 107 34 133/80 (97) 94 06/30/20 09:00 24 156/75 100 06/30/20 09:00 34 Mechanical Ventilator 100 06/30/20 09:00 111 34 144/76 (98) 93 06/30/20 08:30 110 34 156/75 (102) 93 06/30/20 08:30 103 159/69 06/30/20 08:00 100 06/30/20 08:00 105 36 163/67 (99) 92 06/30/20 08:00 35 162/66 Mechanical Ventilator 100 06/30/20 08:00 35 Mechanical Ventilator 100 06/30/20 08:00 100 06/30/20 07:30 101 36 162/66 (98) 90 06/30/20 07:00 33 149/65 Mechanical Ventilator 100 06/30/20 07:00 33 Mechanical Ventilator 100 06/30/20 07:00 94 33 149/65 (93) 90 06/30/20 06:45 92 32 142/67 (92) 90 06/30/20 06:30 93 33 162/70 (100) 93 06/30/20 06:15 90 31 138/68 (91) 93 06/30/20 06:00 30 138/61 Mechanical Ventilator 100 06/30/20 06:00 30 Mechanical Ventilator 100 06/30/20 06:00 89 30 138/61 (86) 93 06/30/20 05:45 88 29 136/60 (85) 93 06/30/20 05:30 86 29 126/61 (82) 92 06/30/20 05:30 30 126/61 Mechanical Ventilator 100 06/30/20 05:15 29 126/63 Mechanical Ventilator 100 06/30/20 05:00 30 126/63 Mechanical Ventilator 100 06/30/20 05:00 30 Mechanical Ventilator 100 06/30/20 05:00 86 30 126/63 (84) 91 06/30/20 04:30 87 30 125/65 (85) 91 06/30/20 04:15 26 Mechanical Ventilator 100 06/30/20 04:00 85 06/30/20 04:00 28 109/56 Mechanical Ventilator 100 06/30/20 04:00 26 Mechanical Ventilator 100 06/30/20 04:00 Mechanical Ventilator Mechanical Ventilator 06/30/20 04:00 100 06/30/20 04:00 97.7 85 28 109/56 (73) 95 06/30/20 03:30 88 30 100 06/30/20 03:30 85 28 102/52 (69) 95 06/30/20 03:15 28 Mechanical Ventilator 100 06/30/20 03:00 88 26 90/52 (65) 96 06/30/20 03:00 26 90/52 Mechanical Ventilator 100 06/30/20 03:00 26 Mechanical Ventilator 100 06/30/20 02:00 23 104/53 Mechanical Ventilator 100 06/30/20 02:00 23 Mechanical Ventilator 100 06/30/20 02:00 93 23 104/53 (70) 93 06/30/20 01:45 23 Mechanical Ventilator 100 06/30/20 01:30 26 104/51 Mechanical Ventilator 100 06/30/20 01:30 26 Mechanical Ventilator 100 06/30/20 01:30 97 26 104/51 (68) 93 06/30/20 01:15 26 Mechanical Ventilator 100 06/30/20 01:00 97 26 105/52 (69) 93 06/30/20 01:00 26 105/52 Mechanical Ventilator 100 06/30/20 01:00 26 Mechanical Ventilator 100 06/30/20 00:30 97 27 109/53 (71) 92 06/30/20 00:00 100 06/30/20 00:00 Mechanical Ventilator Mechanical Ventilator 06/30/20 00:00 28 106/51 Mechanical Ventilator 100 06/30/20 00:00 28 Mechanical Ventilator 100 06/30/20 00:00 99.3 96 28 106/51 (69) 92 06/30/20 00:00 96 06/29/20 23:48 28 Mechanical Ventilator 100 06/29/20 23:30 110 28 100 06/29/20 23:00 94 27 97/52 (67) 93 06/29/20 23:00 27 97/52 Mechanical Ventilator 100 06/29/20 23:00 27 Mechanical Ventilator 100 06/29/20 22:30 95 27 94/49 (64) 95 06/29/20 22:00 93 27 89/26 (47) 92 06/29/20 22:00 27 89/26 Mechanical Ventilator 100 06/29/20 22:00 27 Mechanical Ventilator 100 06/29/20 21:00 31 107/51 Mechanical Ventilator 100 06/29/20 21:00 31 Mechanical Ventilator 100 06/29/20 21:00 99.9 107 31 107/51 (69) 90 06/29/20 20:42 108 123/56 06/29/20 20:31 99.9 06/29/20 20:03 33 142/63 Mechanical Ventilator 100 06/29/20 20:00 Mechanical Ventilator Mechanical Ventilator 06/29/20 20:00 100.7 113 33 142/63 (89) 87 06/29/20 20:00 33 Mechanical Ventilator 100 06/29/20 20:00 33 142/63 Mechanical Ventilator 100 06/29/20 20:00 100 06/29/20 19:43 110 32 100 06/29/20 19:34 111 06/29/20 19:00 108 32 122/62 (82) 88 06/29/20 19:00 32 Mechanical Ventilator 100 06/29/20 19:00 32 122/62 Mechanical Ventilator 100 06/29/20 18:30 105 33 120/60 (80) 89 06/29/20 18:00 104 34 115/61 (79) 88 06/29/20 17:30 104 33 118/61 (80) 88 06/29/20 17:00 34 Mechanical Ventilator 100 06/29/20 17:00 34 114/63 Mechanical Ventilator 100 06/29/20 17:00 105 34 114/63 (80) 87 06/29/20 16:30 107 34 112/62 (79) 86 06/29/20 16:00 100 06/29/20 16:00 99.0 105 35 107/58 (74) 87 06/29/20 16:00 33 Mechanical Ventilator 100 06/29/20 16:00 33 112/62 Mechanical Ventilator 100 06/29/20 16:00 Mechanical Ventilator Mechanical Ventilator 06/29/20 15:30 106 32 133/74 (93) 83 06/29/20 15:21 104 38 100 06/29/20 15:00 108 33 120/61 (80) 84 06/29/20 15:00 33 100 06/29/20 15:00 33 133/74 Mechanical Ventilator 100 06/29/20 14:30 109 33 122/57 (78) 86 06/29/20 14:00 33 Mechanical Ventilator 100 06/29/20 14:00 33 122/57 Mechanical Ventilator 100 06/29/20 14:00 109 34 112/75 (87) 85 06/29/20 13:30 107 34 147/53 (84) 84 06/29/20 13:00 34 Mechanical Ventilator 100 06/29/20 13:00 34 147/53 Mechanical Ventilator 100 06/29/20 13:00 105 33 140/63 (88) 84 06/29/20 12:30 103 34 134/47 (76) 82 I&O Intake and Output 06/29/20 06/30/20 19:00 07:00 Intake Total 1658.6667 ml 1590.85 ml Output Total 1860 ml 580 ml Balance -201.3333 ml 1010.85 ml Intake Free Water 90 ml IV Total 1068.6667 ml 835.85 ml Tube Feeding 500 ml 605 ml Other 150 ml Output Urine Total 1860 ml 550 ml Chest Tube Drainage Total 30 ml Dressing: saturated Cardiovascular: RSR Respiratory: decreased breath sounds Abdomen: soft, non-tender, decreased bowel sounds Extremities: edema, no tenderness, no cyanosis Laboratory Tests Test 06/29/20 12:31 06/30/20 04:25 POC Whole Blood Glucose 176 MG/DL (74-106) H White Blood Count 9.2 K/UL (4.8-10.8) Red Blood Count 3.48 M/UL (4.20-5.40) L Hemoglobin 10.8 G/DL (12.0-16.0) L Hematocrit 32.8 % (37.0-47.0) L Mean Corpuscular Volume 94 FL (80-99) Mean Corpuscular Hemoglobin 30.9 PG (27.0-31.0) Mean Corpuscular Hemoglobin Concent 32.8 G/DL (32.0-36.0) Red Cell Distribution Width 15.1 % (11.6-14.8) H Platelet Count 77 K/UL (150-450) L Mean Platelet Volume 7.7 FL (6.5-10.1) Neutrophils (%) (Auto) % (45.0-75.0) Lymphocytes (%) (Auto) % (20.0-45.0) Monocytes (%) (Auto) % (1.0-10.0) Eosinophils (%) (Auto) % (0.0-3.0) Basophils (%) (Auto) % (0.0-2.0) Differential Total Cells Counted 100 Neutrophils % (Manual) 92 % (45-75) H Lymphocytes % (Manual) 6 % (20-45) L Monocytes % (Manual) 2 % (1-10) Eosinophils % (Manual) 0 % (0-3) Basophils % (Manual) 0 % (0-2) Band Neutrophils 0 % (0-8) Platelet Estimate Decreased L Platelet Morphology Normal Polychromasia 1+ Hypochromasia 1+ Anisocytosis 1+ Sodium Level 146 MMOL/L (136-145) H Potassium Level 3.5 MMOL/L (3.5-5.1) Chloride Level 109 MMOL/L (98-107) H Carbon Dioxide Level 36 MMOL/L (21-32) H Anion Gap 1 mmol/L (5-15) L Blood Urea Nitrogen 21 mg/dL (7-18) H Creatinine 0.5 MG/DL (0.55-1.30) L Estimat Glomerular Filtration Rate > 60 mL/min (>60) Glucose Level 173 MG/DL (74-106) H Calcium Level 7.4 MG/DL (8.5-10.1) L Phosphorus Level 2.3 MG/DL (2.5-4.9) L Magnesium Level 2.2 MG/DL (1.8-2.4) Total Bilirubin 0.9 MG/DL (0.2-1.0) Aspartate Amino Transf (AST/SGOT) 60 U/L (15-37) H Alanine Aminotransferase (ALT/SGPT) 59 U/L (12-78) Alkaline Phosphatase 98 U/L (46-116) C-Reactive Protein, Quantitative 16.0 mg/dL (0.00-0.90) H Pro-B-Type Natriuretic Peptide 131 pg/mL (0-125) H Total Protein 5.2 G/DL (6.4-8.2) L Albumin 1.5 G/DL (3.4-5.0) L Globulin 3.7 g/dL Albumin/Globulin Ratio 0.4 (1.0-2.7) L Plan Problems: (1) Renal insufficiency (2) Elevated d-dimer (3) Dehydration (4) LEONARDO (acute kidney injury) (5) DMII (diabetes mellitus, type 2) (6) Hypoxia (7) Pneumonia due to COVID-19 virus (8) PNA (pneumonia) (9) Pneumothorax Assessment & Plan: Bilateral pneumothorax status post bilateral chest tubes. Still on significant vent support. leak performed. Continue weaning vent. Continue with chest tubes. Will monitor and manage chest tubes accordingly. Thank you for let me to participate in patient's care Continue bilateral chest tubes on suction the airleak is worse her peak pressures are high prognosis overall is guarded. Imaging reviewed Bilateral air leaks noted high pressures continue chest tube suction Elpidio Frazier Jun 30, 2020 12:15
--- NOTE | 2020-06-30 13:44 | NUR ---
CASE MANAGEMENT:REVIEW 06/30/20 SI: COVID PNEUMONIA ~ INTUBATED. PNTHX W/BILATERAL CHEST TUBE 99.3 120 33 170/96 98% ON VENT SUPPORT W/100% FIO2 H/H-10.8/32.8 PLT-77 CA-7.4 PHOS-2.3 IS: FENTANYL GTT IV LASIX QD IVF@50/HR COREG NG Q12H IV PROTONIX Q12H LOVENOX SQ Q12H : ICU STATUS DCP: FROM HOME PLAN: SUPPORTIVE CARE BILATERAL CHEST TUBES TO SUCTION
--- NOTE | 2020-06-30 13:51 | NUR ---
INSURANCE CLINICALS/REVIEW FAXED TO [facility] [phone]
--- NOTE | 2020-06-30 16:51 | NUR ---
NURSE NOTES:WOUND CARE NOTES:Pt deconditioned and presents with rapidly evolving Sacral DTPI. (L)7.5c x (W)9cm. Base of Pressure Injury is indurated, purpuric with erythematous margins. Purpuric and fluctuant areas noted to both R and L Ischial tuberosities. Fingers both hands are purplish/red. R Heel is boggy with non-blanchable erythema. L Heel is boggy but blanchable. Tx.Plan: Apply Moisture Barrier Paste to Sacrum. Cover with Optifoam drsg. Change every 3 days and prn. Apply Moisture Barrier Paste R and L Ischial tuberosities. Cover each site with Optifoam drsgs. Change every 3 days and prn. Apply Cavilon Skin Barrier to both heels. Cover each Heel with Optifoam drsg. Change every 7 days and prn. Reposition at least every 2hours or as tolerated. Off-load heels with Pillows. APM/VIK Mattress overlay.
--- NOTE | 2020-06-30 19:00 | NUR ---
NURSE HAND-OFF REPORT: Latest Vital Signs: Temperature 100.8 , Pulse 113 , B/P 135 /70 , Respiratory Rate 31 , O2 SAT 98 , Mechanical Ventilator, O2 Flow Rate . Vital Sign Comment: EKG Rhythm: Sinus Tachycardia Rhythm change?: N MD Notified?: N - MD Response: Latest Carney Fall Score: 50 Fall Risk: High Risk Safety Measures: Call light Within Reach, Bed Alarm Zone 2, Side Rails Side Rails x3, Bed position Low and Locked. Fall Precautions: Yellow Socks Door Sign Patient Fall Education Report given to NORMAN Antony.
[2020-06-30] MEDS: Dyna-Hex 2% Top Sol 2oz TOPIC SCH (19:40)
--- NOTE | 2020-06-30 19:40 | NUR ---
NURSE NOTES: PATIENT SEDATED, RASS SCORE -2 STATUS, ON ETT TO VENT AC 16/TV400/FIO2 90%/PEEP 8, O2 SATURATION 98% NOTED, CHEST TUBE TO BILATERAL INTACT WITH PLEU VAC, SEROSANGUINEOUS DISCHARGE OUTED, OGT INTACT AND PATENT, ONGOING GLUCERNA 1.2 AT 55ML/HR, RESIDUE 20ML NOTED, KEPT HOB 30 DEGREES AND ASPIRATION PRECAUTION, ABDOMEN SOFT, NON TENDER, NO BM STATUS, F/C INTACT AND PATENT, MALCOLM COLOR URINE OUTED, PPL TO RIGHT AC 20G, LEFT FOREARM 22G AND PICC LINE TO RIGHT UPPER ARM INTACT AND PATENT, ONGOING VERSED 2MG AND FENTANYL 20 MCG/HR VIA RT. PICC LINE, IV FLUID NS AT 50 ML VIA PICC LINE. KEPT AIRBORNE PRECAUTION, MADE LOWER BED POSITION, ON BED ALARM AND LOCKED, WILL CONTINUE TO MONITOR.
--- NOTE | 2020-06-30 19:42 | General Progress Note ---
Subjective ROS Limited/Unobtainable: Yes Allergies: Coded Allergies: No Known Allergies (Unverified , 06/17/20) Objective Last 24 Hour Vital Signs Date Time Temp Pulse Resp B/P (MAP) Pulse Ox O2 Delivery O2 Flow Rate FiO2 06/30/20 19:00 31 135/70 Mechanical Ventilator 100 06/30/20 19:00 31 Mechanical Ventilator 100 06/30/20 19:00 113 32 120/71 (87) 98 06/30/20 18:30 100.8 114 26 146/71 (96) 92 06/30/20 18:00 32 153/69 Mechanical Ventilator 100 06/30/20 18:00 33 Mechanical Ventilator 100 06/30/20 18:00 115 27 153/69 (97) 95 06/30/20 17:30 117 33 121/77 (92) 97 06/30/20 17:00 33 126/67 Mechanical Ventilator 100 06/30/20 17:00 33 Mechanical Ventilator 100 06/30/20 17:00 120 33 126/67 (86) 95 06/30/20 16:30 123 33 183/92 (122) 87 06/30/20 16:00 Mechanical Ventilator Mechanical Ventilator 06/30/20 16:00 90 06/30/20 16:00 33 164/88 Mechanical Ventilator 100 06/30/20 16:00 33 Mechanical Ventilator 100 06/30/20 16:00 127 33 164/88 (113) 93 06/30/20 16:00 120 06/30/20 15:30 125 34 142/83 (102) 95 06/30/20 15:27 121 33 100 06/30/20 15:00 124 32 143/76 (98) 96 06/30/20 15:00 33 143/76 Mechanical Ventilator 100 06/30/20 15:00 33 Mechanical Ventilator 100 06/30/20 14:30 122 34 153/82 (105) 95 06/30/20 14:00 33 161/80 Mechanical Ventilator 100 06/30/20 14:00 33 Mechanical Ventilator 100 06/30/20 14:00 120 34 161/80 (107) 94 06/30/20 13:30 119 34 157/78 (104) 94 06/30/20 13:00 34 160/86 Mechanical Ventilator 100 06/30/20 13:00 34 Mechanical Ventilator 100 06/30/20 13:00 118 34 160/86 (110) 93 06/30/20 12:30 120 33 161/89 (113) 99 06/30/20 12:00 Mechanical Ventilator Mechanical Ventilator 06/30/20 12:00 99.8 06/30/20 12:00 33 168/101 Mechanical Ventilator 100 06/30/20 12:00 33 Mechanical Ventilator 100 06/30/20 12:00 120 33 170/96 (120) 98 06/30/20 12:00 120 06/30/20 12:00 90 06/30/20 11:30 120 33 154/89 (110) 98 06/30/20 11:00 33 145/85 Mechanical Ventilator 100 06/30/20 11:00 33 100 06/30/20 11:00 119 33 149/89 (109) 97 06/30/20 10:56 122 34 100 06/30/20 10:30 114 33 145/85 (105) 96 06/30/20 10:00 33 133/80 Mechanical Ventilator 100 06/30/20 10:00 33 Mechanical Ventilator 100 06/30/20 10:00 111 33 132/78 (96) 94 06/30/20 09:30 107 34 133/80 (97) 94 06/30/20 09:00 24 156/75 100 06/30/20 09:00 34 Mechanical Ventilator 100 06/30/20 09:00 111 34 144/76 (98) 93 06/30/20 08:30 110 34 156/75 (102) 93 06/30/20 08:30 103 159/69 06/30/20 08:00 100.6 06/30/20 08:00 100 06/30/20 08:00 105 36 163/67 (99) 92 06/30/20 08:00 35 162/66 Mechanical Ventilator 100 06/30/20 08:00 35 Mechanical Ventilator 100 06/30/20 08:00 100 06/30/20 08:00 Mechanical Ventilator Mechanical Ventilator 06/30/20 07:30 101 36 162/66 (98) 90 06/30/20 07:30 90 34 100 06/30/20 07:00 33 149/65 Mechanical Ventilator 100 06/30/20 07:00 33 Mechanical Ventilator 100 06/30/20 07:00 94 33 149/65 (93) 90 06/30/20 06:45 92 32 142/67 (92) 90 06/30/20 06:30 93 33 162/70 (100) 93 06/30/20 06:15 90 31 138/68 (91) 93 06/30/20 06:00 30 138/61 Mechanical Ventilator 100 06/30/20 06:00 30 Mechanical Ventilator 100 06/30/20 06:00 89 30 138/61 (86) 93 06/30/20 05:45 88 29 136/60 (85) 93 06/30/20 05:30 86 29 126/61 (82) 92 06/30/20 05:30 30 126/61 Mechanical Ventilator 100 06/30/20 05:15 29 126/63 Mechanical Ventilator 100 06/30/20 05:00 30 126/63 Mechanical Ventilator 100 06/30/20 05:00 30 Mechanical Ventilator 100 06/30/20 05:00 86 30 126/63 (84) 91 06/30/20 04:30 87 30 125/65 (85) 91 06/30/20 04:15 26 Mechanical Ventilator 100 06/30/20 04:00 85 06/30/20 04:00 28 109/56 Mechanical Ventilator 100 06/30/20 04:00 26 Mechanical Ventilator 100 06/30/20 04:00 Mechanical Ventilator Mechanical Ventilator 06/30/20 04:00 100 06/30/20 04:00 97.7 85 28 109/56 (73) 95 06/30/20 03:30 88 30 100 06/30/20 03:30 85 28 102/52 (69) 95 06/30/20 03:15 28 Mechanical Ventilator 100 06/30/20 03:00 88 26 90/52 (65) 96 06/30/20 03:00 26 90/52 Mechanical Ventilator 100 06/30/20 03:00 26 Mechanical Ventilator 100 06/30/20 02:00 23 104/53 Mechanical Ventilator 100 06/30/20 02:00 23 Mechanical Ventilator 100 06/30/20 02:00 93 23 104/53 (70) 93 06/30/20 01:45 23 Mechanical Ventilator 100 06/30/20 01:30 26 104/51 Mechanical Ventilator 100 06/30/20 01:30 26 Mechanical Ventilator 100 06/30/20 01:30 97 26 104/51 (68) 93 06/30/20 01:15 26 Mechanical Ventilator 100 06/30/20 01:00 97 26 105/52 (69) 93 2/9/21 01:00 26 105/52 Mechanical Ventilator 100 06/30/20 01:00 26 Mechanical Ventilator 100 06/30/20 00:30 97 27 109/53 (71) 92 06/30/20 00:00 100 06/30/20 00:00 Mechanical Ventilator Mechanical Ventilator 06/30/20 00:00 28 106/51 Mechanical Ventilator 100 06/30/20 00:00 28 Mechanical Ventilator 100 06/30/20 00:00 99.3 96 28 106/51 (69) 92 06/30/20 00:00 96 06/29/20 23:48 28 Mechanical Ventilator 100 06/29/20 23:30 110 28 100 06/29/20 23:00 94 27 97/52 (67) 93 06/29/20 23:00 27 97/52 Mechanical Ventilator 100 06/29/20 23:00 27 Mechanical Ventilator 100 06/29/20 22:30 95 27 94/49 (64) 95 06/29/20 22:00 93 27 89/26 (47) 92 06/29/20 22:00 27 89/26 Mechanical Ventilator 100 06/29/20 22:00 27 Mechanical Ventilator 100 06/29/20 21:00 31 107/51 Mechanical Ventilator 100 06/29/20 21:00 31 Mechanical Ventilator 100 06/29/20 21:00 99.9 107 31 107/51 (69) 90 06/29/20 20:42 108 123/56 06/29/20 20:31 99.9 06/29/20 20:03 33 142/63 Mechanical Ventilator 100 06/29/20 20:00 Mechanical Ventilator Mechanical Ventilator 06/29/20 20:00 100.7 113 33 142/63 (89) 87 06/29/20 20:00 33 Mechanical Ventilator 100 06/29/20 20:00 33 142/63 Mechanical Ventilator 100 06/29/20 20:00 100 06/29/20 19:43 110 32 100 Intake and Output 06/29/20 06/30/20 19:00 07:00 Intake Total 1658.6667 ml 1590.85 ml Output Total 1860 ml 580 ml Balance -201.3333 ml 1010.85 ml Intake Free Water 90 ml IV Total 1068.6667 ml 835.85 ml Tube Feeding 500 ml 605 ml Other 150 ml Output Urine Total 1860 ml 550 ml Chest Tube Drainage Total 30 ml Laboratory Tests 06/30/20 04:25: White Blood Count 9.2, Red Blood Count 3.48L, Hemoglobin 10.8L, Hematocrit 32.8L , Mean Corpuscular Volume 94, Mean Corpuscular Hemoglobin 30.9, Mean Corpuscular Hemoglobin Concent 32.8, Red Cell Distribution Width 15.1H, Platelet Count 77L, Mean Platelet Volume 7.7, Neutrophils (%) (Auto) , Lymphocytes (%) (Auto) , Monocytes (%) (Auto) , Eosinophils (%) (Auto) , Basophils (%) (Auto) , Differential Total Cells Counted 100, Neutrophils % (Manual) 92H, Lymphocytes % (Manual) 6L, Monocytes % (Manual) 2, Eosinophils % (Manual) 0, Basophils % (Manual) 0, Band Neutrophils 0, Platelet Estimate DecreasedL, Platelet Morphology Normal, Polychromasia 1+, Hypochromasia 1+, Anisocytosis 1+, Sodium Level 146H, Potassium Level 3.5, Chloride Level 109H, Carbon Dioxide Level 36H, Anion Gap 1L, Blood Urea Nitrogen 21H, Creatinine 0.5L, Estimat Glomerular Filtration Rate > 60, Glucose Level 173H, Calcium Level 7.4L, Phosphorus Level 2.3L, Magnesium Level 2.2, Total Bilirubin 0.9, Aspartate Amino Transf (AST/SGOT) 60H, Alanine Aminotransferase (ALT/SGPT) 59, Alkaline Phosphatase 98, C-Reactive Protein, Quantitative 16.0H, Pro-B-Type Natriuretic Peptide 131H, Total Protein 5.2L, Albumin 1.5L, Globulin 3.7, Albumin/Globulin Ratio 0.4L Height (Feet): 5 Height (Inches): 2.00 Weight (Pounds): 138 Assessment/Plan Problem List: (1) Elevated d-dimer ICD Codes: R79.89 - Other specified abnormal findings of blood chemistry SNOMED: 518400731 (2) Renal insufficiency ICD Codes: N28.9 - Disorder of kidney and ureter, unspecified SNOMED: 563151312, 955649155 (3) PNA (pneumonia) ICD Codes: J18.9 - Pneumonia, unspecified organism SNOMED: 936708195 (4) Dehydration ICD Codes: E86.0 - Dehydration SNOMED: 77291540 (5) LEONARDO (acute kidney injury) ICD Codes: N17.9 - Acute kidney failure, unspecified SNOMED: 5471388, 68241163 (6) Hypoxia ICD Codes: R09.02 - Hypoxemia; J12.82 - Pneumonia due to coronavirus disease 2019 SNOMED: 737850913 (7) Pneumonia due to COVID-19 virus ICD Codes: U07.1 - COVID-19; J12.82 - Pneumonia due to coronavirus disease 2019 SNOMED: 302881752168295429 (8) DMII (diabetes mellitus, type 2) ICD Codes: E11.9 - Type 2 diabetes mellitus without complications SNOMED: 73276105 Status: progressing, unchanged Assessment/Plan: covid + no change intubated niddm azotemia not on pressor poor prognosis not improving Vidya Clayton MD Jun 30, 2020 19:42
--- NOTE | 2020-06-30 22:25 | NUR ---
NURSE NOTES: HR 95/MIN SR, VSS, REPOSITIONED.
[2020-07-01] VITALS (60 sets, daily range): BP systolic 88–171; BP diastolic 54–97
--- NOTE | 2020-07-01 00:10 | NUR ---
NURSE NOTES: TOLERATED FEEDING, NO BM STATUS, WILL CONTINUE TO MONITOR.
[2020-07-01] MEDS: Versed 50mg/NS 100ml 100 ML IV PRN ×2 (01:03→01:05)
--- NOTE | 2020-07-01 02:10 | NUR ---
NURSE NOTES: PATIENT SEDATED WITH FENTANYL 20MCG/HR AND VERSED 2MG/HR, RASS SCORE -2, WILL CONTINUE PLAN OF CARE.
--- NOTE | 2020-07-01 02:16 | Cardiology Report ---
APPROVED REPORT EKG Measurement Heart [id number] <Conclusion> Normal sinus rhythm Low voltage QRS Possible Inferior infarct, age undetermined Abnormal ECG
--- NOTE | 2020-07-01 04:30 | NUR ---
NURSE NOTES: MORNING CARE AND ORAL CARE WAS DONE, NO BM STATUS.
[2020-07-01] MEDS: NovoLOG Insulin Flexpen SUBQ SCH ×3 (05:49→18:00)
--- NOTE | 2020-07-01 06:12 | NUR ---
NURSE NOTES: PATIENT SEDATED, BILATERAL CHEST TUBE INTACT, RASS SCORE -2, NO ACUTE DISTRESS NOTED AT THIS SHIFT.
--- NOTE | 2020-07-01 06:44 | Hematology/Onc Progress Note ---
Assessment/Plan Assessment/Plan Assessment and recs # Leukocytosis with Pneumonia due to COVID-19 virus -> wbc trend 15-->11-->10->17-->18->11->21 --> ABX as per id ctx-->off --> imaging does show pna --> anticoag recommended --> on remdesivir # Anemia of chronic disease --> hgb 12->10-->9-->11-->10.8->10 -> transfuse prn --> r/o hemolysis # Elevated ddimer due to covid --> duplex legs -> LOVENOX sq # Thrombocytopenia due to likely plt destruction, Covid19++ with Hypoxia -> steriods, abx per id --> plt 117-->121-->124->77 --> smear is noted # Renal insufficiency -> per renal care # Sepsis due to above --> abx, fluid resuscitation # Dvt ppx lovenox sq Appreciate consultation and mehran RN Subjective Allergies: Coded Allergies: No Known Allergies (Unverified , 06/17/20) All Systems: reviewed and negative except above Subjective 06/19 sleeping, comfortable, on bipap, meds have been reviewed 06/21 on bipap, labs have been reviewed, no major events 06/22 bipap labs reviewed, meds noted, no bleeding 06/23 bipap labs noted, no bleeding, meds reviewed, mehran rn 06/24 on vent, labs reviewed, meds reviewed 06/25 on vent, with ctx as abx, labs noted, no bleeding 06/26 vent, with ogt, with helms, labs noted, no bleeding plts lower 06/28 labs are pending, on vent, helms intract, no new changes 06/29 icu, on vent, hgb 11, plt 124, meds noted, on ctx 06/30 icu, edematous, is on vent, labs reviewed, abx 07/01 icu, on vent, labs noted, no bleeding, plt 77, labs ordered Objective Objective Current Medications Medications (Trade) Dose Ordered Sig/Maya Route PRN Reason Start Time Stop Time Status Last Admin Dose Admin Acetaminophen (Tylenol) 500 mg Q4H PRN ORAL Mild Pain (Pain Scale 1-3) 06/18/20 00:15 07/18/20 00:14 06/24/20 17:51 Acetaminophen (Tylenol) 500 mg Q4H PRN ORAL Temp >100.5 06/18/20 00:15 07/18/20 00:14 06/29/20 20:01 Carvedilol (Coreg) 6.25 mg EVERY 12 HOURS ORAL 06/22/20 21:00 07/22/20 20:59 06/30/20 20:32 Chlorhexidine Gluconate (Sissy-Hex 2%) 1 applic DAILY@2000 TOPIC 06/28/20 20:00 09/26/20 19:59 06/30/20 19:40 Dextrose (Dextrose 50%) 25 ml Q30M PRN IV Hypoglycemia 06/18/20 14:15 09/16/20 14:14 Dextrose (Dextrose 50%) 50 ml Q30M PRN IV Hypoglycemia 06/18/20 14:15 09/16/20 14:14 Docusate Sodium (Colace) 100 mg THREE TIMES A DAY NG 06/28/20 13:00 07/28/20 12:59 06/30/20 18:39 Fentanyl Citrate 1000 mcg/Sodium Chloride 100 ml @ 1 mls/hr Q24H PRN IV sedation 06/29/20 20:00 07/01/20 19:59 07/01/20 01:03 Furosemide (Lasix) 40 mg DAILY IV 06/28/20 17:45 07/28/20 16:59 06/30/20 08:28 Haloperidol Lactate (Haldol) 10 mg Q6H PRN IM Agitation 06/23/20 11:30 08/07/20 11:29 06/23/20 11:34 Heparin Sodium/ Sodium Chloride (Heparin 1000 units/500ml Premix) 1,000 unit NEEDED PRN IV PICC LINE PLACEMENT 06/28/20 20:00 Insulin Aspart (NovoLOG) while NPO Q6HR SUBQ 06/18/20 18:00 09/16/20 17:59 07/01/20 05:49 Midazolam HCl 100 ml @ 0 mls/hr Q24H PRN IV Per rx protocol 06/30/20 03:00 07/02/20 02:59 07/01/20 01:05 Pantoprazole (Protonix) 40 mg EVERY 12 HOURS IVP 06/18/20 21:00 07/18/20 20:59 06/30/20 20:31 Sodium Chloride 1,000 ml @ 50 mls/hr Q20H IV 06/26/20 08:00 07/26/20 07:59 07/01/20 05:38 Vitamin D (Vitamin D) 2,000 unit DAILY GT 06/29/20 10:30 07/29/20 10:29 06/30/20 08:30 Last 24 Hour Vital Signs Date Time Temp Pulse Resp B/P (MAP) Pulse Ox O2 Delivery O2 Flow Rate FiO2 07/01/20 06:00 105 33 127/66 (86) 95 07/01/20 06:00 33 Mechanical Ventilator 90 07/01/20 06:00 33 127/66 Mechanical Ventilator 90 07/01/20 05:00 32 Mechanical Ventilator 90 07/01/20 05:00 32 94/58 Mechanical Ventilator 90 07/01/20 05:00 104 32 94/58 (70) 92 07/01/20 04:00 99.6 107 32 96/54 (68) 96 07/01/20 04:00 Mechanical Ventilator Mechanical Ventilator 07/01/20 04:00 107 07/01/20 04:00 32 Mechanical Ventilator 90 07/01/20 04:00 32 96/54 Mechanical Ventilator 90 07/01/20 04:00 90 07/01/20 03:30 108 33 90 07/01/20 03:00 32 Mechanical Ventilator 90 07/01/20 03:00 32 138/67 Mechanical Ventilator 90 07/01/20 03:00 108 32 138/67 (90) 95 07/01/20 02:00 32 Mechanical Ventilator 90 07/01/20 02:00 32 134/77 Mechanical Ventilator 90 07/01/20 02:00 108 32 134/77 (96) 96 07/01/20 01:05 32 Mechanical Ventilator 90 07/01/20 01:03 32 147/79 Mechanical Ventilator 90 07/01/20 01:00 33 147/79 Mechanical Ventilator 90 07/01/20 01:00 33 Mechanical Ventilator 90 07/01/20 01:00 112 33 147/79 (101) 95 07/01/20 00:00 90 07/01/20 00:00 Mechanical Ventilator Mechanical Ventilator 07/01/20 00:00 110 07/01/20 00:00 98.9 110 33 138/68 (91) 96 07/01/20 00:00 20 102/58 Mechanical Ventilator 90 07/01/20 00:00 15 Mechanical Ventilator 90 06/30/20 23:31 106 34 90 06/30/20 23:00 20 106/69 Mechanical Ventilator 90 06/30/20 23:00 20 Mechanical Ventilator 90 06/30/20 23:00 106 32 120/62 (81) 95 06/30/20 22:00 103 32 121/66 (84) 86 06/30/20 22:00 17 106/62 Mechanical Ventilator 90 06/30/20 22:00 17 Mechanical Ventilator 90 06/30/20 21:00 32 108/58 Mechanical Ventilator 90 06/30/20 21:00 32 Mechanical Ventilator 90 06/30/20 21:00 107 32 108/58 (75) 86 06/30/20 20:32 109 119/65 06/30/20 20:30 111 32 119/65 (83) 99 06/30/20 20:00 90 06/30/20 20:00 99.3 110 32 118/76 (90) 100 06/30/20 20:00 32 118/76 Mechanical Ventilator 90 06/30/20 20:00 32 Mechanical Ventilator 90 06/30/20 20:00 Mechanical Ventilator Mechanical Ventilator 06/30/20 19:40 109 31 90 06/30/20 19:36 109 06/30/20 19:00 31 135/70 Mechanical Ventilator 100 06/30/20 19:00 31 Mechanical Ventilator 100 06/30/20 19:00 113 32 120/71 (87) 98 06/30/20 18:30 100.8 114 26 146/71 (96) 92 06/30/20 18:00 32 153/69 Mechanical Ventilator 100 06/30/20 18:00 33 Mechanical Ventilator 100 06/30/20 18:00 115 27 153/69 (97) 95 06/30/20 17:30 117 33 121/77 (92) 97 06/30/20 17:00 33 126/67 Mechanical Ventilator 100 06/30/20 17:00 33 Mechanical Ventilator 100 06/30/20 17:00 120 33 126/67 (86) 95 06/30/20 16:30 123 33 183/92 (122) 87 06/30/20 16:00 Mechanical Ventilator Mechanical Ventilator 06/30/20 16:00 90 06/30/20 16:00 33 164/88 Mechanical Ventilator 100 06/30/20 16:00 33 Mechanical Ventilator 100 06/30/20 16:00 127 33 164/88 (113) 93 06/30/20 16:00 120 06/30/20 15:30 125 34 142/83 (102) 95 06/30/20 15:27 121 33 100 06/30/20 15:00 124 32 143/76 (98) 96 06/30/20 15:00 33 143/76 Mechanical Ventilator 100 06/30/20 15:00 33 Mechanical Ventilator 100 06/30/20 14:30 122 34 153/82 (105) 95 06/30/20 14:00 33 161/80 Mechanical Ventilator 100 06/30/20 14:00 33 Mechanical Ventilator 100 06/30/20 14:00 120 34 161/80 (107) 94 06/30/20 13:30 119 34 157/78 (104) 94 06/30/20 13:00 34 160/86 Mechanical Ventilator 100 06/30/20 13:00 34 Mechanical Ventilator 100 06/30/20 13:00 118 34 160/86 (110) 93 06/30/20 12:30 120 33 161/89 (113) 99 06/30/20 12:00 Mechanical Ventilator Mechanical Ventilator 06/30/20 12:00 99.8 06/30/20 12:00 33 168/101 Mechanical Ventilator 100 06/30/20 12:00 33 Mechanical Ventilator 100 06/30/20 12:00 120 33 170/96 (120) 98 06/30/20 12:00 120 06/30/20 12:00 90 06/30/20 11:30 120 33 154/89 (110) 98 06/30/20 11:00 33 145/85 Mechanical Ventilator 100 06/30/20 11:00 33 100 06/30/20 11:00 119 33 149/89 (109) 97 06/30/20 10:56 122 34 100 06/30/20 10:30 114 33 145/85 (105) 96 06/30/20 10:00 33 133/80 Mechanical Ventilator 100 06/30/20 10:00 33 Mechanical Ventilator 100 06/30/20 10:00 111 33 132/78 (96) 94 06/30/20 09:30 107 34 133/80 (97) 94 06/30/20 09:00 24 156/75 100 06/30/20 09:00 34 Mechanical Ventilator 100 06/30/20 09:00 111 34 144/76 (98) 93 06/30/20 08:30 110 34 156/75 (102) 93 06/30/20 08:30 103 159/69 06/30/20 08:00 100.6 06/30/20 08:00 100 06/30/20 08:00 105 36 163/67 (99) 92 06/30/20 08:00 35 162/66 Mechanical Ventilator 100 06/30/20 08:00 35 Mechanical Ventilator 100 06/30/20 08:00 100 06/30/20 08:00 Mechanical Ventilator Mechanical Ventilator 06/30/20 07:30 101 36 162/66 (98) 90 06/30/20 07:30 90 34 100 06/30/20 07:00 33 149/65 Mechanical Ventilator 100 06/30/20 07:00 33 Mechanical Ventilator 100 06/30/20 07:00 94 33 149/65 (93) 90 06/30/20 06:45 92 32 142/67 (92) 90 06/30/20 06:30 93 33 162/70 (100) 93 06/30/20 06:15 90 31 138/68 (91) 93 06/30/20 06:00 30 138/61 Mechanical Ventilator 100 06/30/20 06:00 30 Mechanical Ventilator 100 06/30/20 06:00 89 30 138/61 (86) 93 06/30/20 05:45 88 29 136/60 (85) 93 06/30/20 05:30 86 29 126/61 (82) 92 06/30/20 05:30 30 126/61 Mechanical Ventilator 100 06/30/20 05:15 29 126/63 Mechanical Ventilator 100 06/30/20 05:00 30 126/63 Mechanical Ventilator 100 06/30/20 05:00 30 Mechanical Ventilator 100 06/30/20 05:00 86 30 126/63 (84) 91 06/30/20 04:30 87 30 125/65 (85) 91 06/30/20 04:15 26 Mechanical Ventilator 100 06/30/20 04:00 85 06/30/20 04:00 28 109/56 Mechanical Ventilator 100 06/30/20 04:00 26 Mechanical Ventilator 100 06/30/20 04:00 Mechanical Ventilator Mechanical Ventilator 06/30/20 04:00 100 2/9/21 04:00 97.7 85 28 109/56 (73) 95 06/30/20 03:30 88 30 100 06/30/20 03:30 85 28 102/52 (69) 95 06/30/20 03:15 28 Mechanical Ventilator 100 06/30/20 03:00 88 26 90/52 (65) 96 06/30/20 03:00 26 90/52 Mechanical Ventilator 100 06/30/20 03:00 26 Mechanical Ventilator 100 06/30/20 02:00 23 104/53 Mechanical Ventilator 100 06/30/20 02:00 23 Mechanical Ventilator 100 06/30/20 02:00 93 23 104/53 (70) 93 06/30/20 01:45 23 Mechanical Ventilator 100 06/30/20 01:30 26 104/51 Mechanical Ventilator 100 06/30/20 01:30 26 Mechanical Ventilator 100 06/30/20 01:30 97 26 104/51 (68) 93 06/30/20 01:15 26 Mechanical Ventilator 100 06/30/20 01:00 97 26 105/52 (69) 93 06/30/20 01:00 26 105/52 Mechanical Ventilator 100 06/30/20 01:00 26 Mechanical Ventilator 100 06/30/20 00:30 97 27 109/53 (71) 92 06/30/20 00:00 100 06/30/20 00:00 Mechanical Ventilator Mechanical Ventilator 06/30/20 00:00 28 106/51 Mechanical Ventilator 100 06/30/20 00:00 28 Mechanical Ventilator 100 06/30/20 00:00 99.3 96 28 106/51 (69) 92 06/30/20 00:00 96 06/29/20 23:48 28 Mechanical Ventilator 100 06/29/20 23:30 110 28 100 06/29/20 23:00 94 27 97/52 (67) 93 06/29/20 23:00 27 97/52 Mechanical Ventilator 100 06/29/20 23:00 27 Mechanical Ventilator 100 06/29/20 22:30 95 27 94/49 (64) 95 06/29/20 22:00 93 27 89/26 (47) 92 06/29/20 22:00 27 89/26 Mechanical Ventilator 100 06/29/20 22:00 27 Mechanical Ventilator 100 06/29/20 21:00 31 107/51 Mechanical Ventilator 100 06/29/20 21:00 31 Mechanical Ventilator 100 06/29/20 21:00 99.9 107 31 107/51 (69) 90 06/29/20 20:42 108 123/56 06/29/20 20:31 99.9 06/29/20 20:03 33 142/63 Mechanical Ventilator 100 06/29/20 20:00 Mechanical Ventilator Mechanical Ventilator 06/29/20 20:00 100.7 113 33 142/63 (89) 87 06/29/20 20:00 33 Mechanical Ventilator 100 06/29/20 20:00 33 142/63 Mechanical Ventilator 100 06/29/20 20:00 100 06/29/20 19:43 110 32 100 06/29/20 19:34 111 06/29/20 19:00 108 32 122/62 (82) 88 06/29/20 19:00 32 Mechanical Ventilator 100 06/29/20 19:00 32 122/62 Mechanical Ventilator 100 06/29/20 18:30 105 33 120/60 (80) 89 06/29/20 18:00 104 34 115/61 (79) 88 06/29/20 17:30 104 33 118/61 (80) 88 06/29/20 17:00 34 Mechanical Ventilator 100 06/29/20 17:00 34 114/63 Mechanical Ventilator 100 06/29/20 17:00 105 34 114/63 (80) 87 06/29/20 16:30 107 34 112/62 (79) 86 06/29/20 16:00 100 06/29/20 16:00 99.0 105 35 107/58 (74) 87 06/29/20 16:00 33 Mechanical Ventilator 100 06/29/20 16:00 33 112/62 Mechanical Ventilator 100 06/29/20 16:00 Mechanical Ventilator Mechanical Ventilator 06/29/20 15:30 106 32 133/74 (93) 83 06/29/20 15:21 104 38 100 06/29/20 15:00 108 33 120/61 (80) 84 06/29/20 15:00 33 100 06/29/20 15:00 33 133/74 Mechanical Ventilator 100 06/29/20 14:30 109 33 122/57 (78) 86 06/29/20 14:00 33 Mechanical Ventilator 100 06/29/20 14:00 33 122/57 Mechanical Ventilator 100 06/29/20 14:00 109 34 112/75 (87) 85 06/29/20 13:30 107 34 147/53 (84) 84 06/29/20 13:00 34 Mechanical Ventilator 100 06/29/20 13:00 34 147/53 Mechanical Ventilator 100 06/29/20 13:00 105 33 140/63 (88) 84 06/29/20 12:30 103 34 134/47 (76) 82 06/29/20 12:00 100 06/29/20 12:00 33 Non-Rebreather 100 06/29/20 12:00 33 134/47 Mechanical Ventilator 100 06/29/20 12:00 99.6 98 27 144/56 (85) 76 06/29/20 12:00 Mechanical Ventilator Mechanical Ventilator 06/29/20 11:45 91 31 06/29/20 11:30 91 31 155/81 (105) 06/29/20 11:17 89 33 100 06/29/20 11:15 92 32 96 06/29/20 11:11 90 131/63 06/29/20 11:00 32 Mechanical Ventilator 100 06/29/20 11:00 32 155/81 Mechanical Ventilator 100 06/29/20 11:00 91 33 131/63 (85) 92 06/29/20 10:45 93 33 92 06/29/20 10:30 94 32 137/76 (96) 93 06/29/20 10:15 92 32 91 06/29/20 10:00 92 32 137/71 (93) 93 06/29/20 10:00 32 Mechanical Ventilator 100 06/29/20 10:00 32 137/76 Mechanical Ventilator 100 06/29/20 09:47 32 Mechanical Ventilator 100 06/29/20 09:45 89 32 91 06/29/20 09:30 89 32 123/78 (93) 92 06/29/20 09:15 88 32 92 06/29/20 09:00 88 32 125/63 (83) 92 06/29/20 09:00 100 06/29/20 09:00 32 Mechanical Ventilator 100 06/29/20 09:00 32 123/78 Mechanical Ventilator 100 06/29/20 08:45 88 32 97 06/29/20 08:30 88 32 137/63 (87) 97 06/29/20 08:15 89 32 94 06/29/20 08:00 Mechanical Ventilator Mechanical Ventilator 06/29/20 08:00 98.9 88 32 119/50 (73) 90 06/29/20 08:00 32 Mechanical Ventilator 100 06/29/20 08:00 32 119/50 Mechanical Ventilator 100 06/29/20 07:45 88 32 96 06/29/20 07:30 89 32 163/109 (127) 97 06/29/20 07:29 89 32 90 06/29/20 07:15 91 31 97 06/29/20 07:00 90 32 129/61 (83) 96 06/29/20 07:00 32 Mechanical Ventilator 100 06/29/20 07:00 32 129/61 Mechanical Ventilator 100 Intake and Output 06/30/20 07/01/20 19:00 07:00 Intake Total 1828.6667 ml 1316 ml Output Total 2005 ml 505 ml Balance -176.3333 ml 811 ml Intake Free Water 270 ml IV Total 953.6667 ml 616 ml Tube Feeding 605 ml 660 ml Other 40 ml Output Urine Total 1905 ml 460 ml Chest Tube Drainage Total 100 ml 45 ml Labs Test 06/29/20 05:05 06/29/20 12:31 06/30/20 04:25 07/01/20 06:11 White Blood Count 10.1 K/UL (4.8-10.8) 9.2 K/UL (4.8-10.8) Red Blood Count 3.80 M/UL (4.20-5.40) 3.48 M/UL (4.20-5.40) Hemoglobin 11.4 G/DL (12.0-16.0) 10.8 G/DL (12.0-16.0) Hematocrit 35.6 % (37.0-47.0) 32.8 % (37.0-47.0) Mean Corpuscular Volume 94 FL (80-99) 94 FL (80-99) Mean Corpuscular Hemoglobin 30.0 PG (27.0-31.0) 30.9 PG (27.0-31.0) Mean Corpuscular Hemoglobin Concent 32.1 G/DL (32.0-36.0) 32.8 G/DL (32.0-36.0) Red Cell Distribution Width 14.7 % (11.6-14.8) 15.1 % (11.6-14.8) Platelet Count 124 K/UL (150-450) 77 K/UL (150-450) Mean Platelet Volume 7.0 FL (6.5-10.1) 7.7 FL (6.5-10.1) Neutrophils (%) (Auto) % (45.0-75.0) % (45.0-75.0) Lymphocytes (%) (Auto) % (20.0-45.0) % (20.0-45.0) Monocytes (%) (Auto) % (1.0-10.0) % (1.0-10.0) Eosinophils (%) (Auto) % (0.0-3.0) % (0.0-3.0) Basophils (%) (Auto) % (0.0-2.0) % (0.0-2.0) Differential Total Cells Counted 100 100 Neutrophils % (Manual) 91 % (45-75) 92 % (45-75) Lymphocytes % (Manual) 6 % (20-45) 6 % (20-45) Monocytes % (Manual) 3 % (1-10) 2 % (1-10) Eosinophils % (Manual) 0 % (0-3) 0 % (0-3) Basophils % (Manual) 0 % (0-2) 0 % (0-2) Band Neutrophils 0 % (0-8) 0 % (0-8) Platelet Estimate Decreased Decreased Platelet Morphology Normal Normal Anisocytosis 1+ 1+ Sodium Level 146 MMOL/L (136-145) 146 MMOL/L (136-145) Potassium Level 3.4 MMOL/L (3.5-5.1) 3.5 MMOL/L (3.5-5.1) Chloride Level 109 MMOL/L (98-107) 109 MMOL/L (98-107) Carbon Dioxide Level 33 MMOL/L (21-32) 36 MMOL/L (21-32) Anion Gap 4 mmol/L (5-15) 1 mmol/L (5-15) Blood Urea Nitrogen 23 mg/dL (7-18) 21 mg/dL (7-18) Creatinine 0.5 MG/DL (0.55-1.30) 0.5 MG/DL (0.55-1.30) Estimat Glomerular Filtration Rate > 60 mL/min (>60) > 60 mL/min (>60) Glucose Level 118 MG/DL (74-106) 173 MG/DL (74-106) Uric Acid 2.0 MG/DL (2.6-7.2) Calcium Level 7.8 MG/DL (8.5-10.1) 7.4 MG/DL (8.5-10.1) Phosphorus Level 1.6 MG/DL (2.5-4.9) 2.3 MG/DL (2.5-4.9) Magnesium Level 2.4 MG/DL (1.8-2.4) 2.2 MG/DL (1.8-2.4) Total Bilirubin 0.8 MG/DL (0.2-1.0) 0.9 MG/DL (0.2-1.0) Direct Bilirubin 0.4 MG/DL (0.0-0.3) Aspartate Amino Transf (AST/SGOT) 69 U/L (15-37) 60 U/L (15-37) Alanine Aminotransferase (ALT/SGPT) 63 U/L (12-78) 59 U/L (12-78) Alkaline Phosphatase 83 U/L (46-116) 98 U/L (46-116) C-Reactive Protein, Quantitative 6.9 mg/dL (0.00-0.90) 16.0 mg/dL (0.00-0.90) Pro-B-Type Natriuretic Peptide 183 pg/mL (0-125) 131 pg/mL (0-125) Total Protein 5.3 G/DL (6.4-8.2) 5.2 G/DL (6.4-8.2) Albumin 1.9 G/DL (3.4-5.0) 1.5 G/DL (3.4-5.0) POC Whole Blood Glucose 176 MG/DL (74-106) Polychromasia 1+ Hypochromasia 1+ Globulin 3.7 g/dL Albumin/Globulin Ratio 0.4 (1.0-2.7) Height (Feet): 5 Height (Inches): 2.00 Weight (Pounds): 138 Objective Physical Exam Vitals: reviewed, abnormal - Interpreted as low by me General: GCS 15 - Sometimes slightly confused, non-toxic, mild distress Head: normocephalic, moist mucus membranes Neck: supple Respiratory: no retraction, no accessory muscle use, respiratory distress - Minimal with tachypnea, crackles Cardiovascular: regular rate, rhythm, no edema Gastrointestinal: normal inspection, non tender, soft Genitourinary: no CVA tenderness Musculoskeletal: back normal Neurologic: alert, oriented x3, grossly normal Psychiatric: mood/affect normal - sometimes confused Skin: no rash, warm/dry Jj Swann MD Jul 01, 2020 06:44
--- NOTE | 2020-07-01 07:00 | NUR ---
NURSE NOTES: HELD OGT FEEDING DUE TO ABD US.
[2020-07-01 07:01] LABS: HEMATOCRIT 34.7 % (37.0-47.0); HEMOGLOBIN 11.1 G/DL (12.0-16.0); MEAN CORPUSCULAR VOLUME 95 FL (80-99); PLATELET COUNT 100 K/UL (150-450); RED BLOOD COUNT 3.67 M/UL (4.20-5.40); RED CELL DISTRIBUTION WIDTH 14.7 % (11.6-14.8); WHITE BLOOD COUNT 9.9 K/UL (4.8-10.8)
--- NOTE | 2020-07-01 07:24 | NUR ---
NURSE HAND-OFF REPORT: Latest Vital Signs: Temperature 99.6 , Pulse 109 , B/P 134 /69 , Respiratory Rate 33 , O2 SAT 95 , Mechanical Ventilator, O2 Flow Rate . Vital Sign Comment: EKG Rhythm: Sinus Tachycardia Rhythm change?: N MD Notified?: N - MD Response: Latest Carney Fall Score: 50 Fall Risk: High Risk Safety Measures: Call light Within Reach, Bed Alarm Zone 2, Side Rails Side Rails x3, Bed position Low and Locked. Fall Precautions: Yellow Socks Door Sign Patient Fall Education Report given to NORMAN JOSEPH.
[2020-07-01 07:37] LABS: ANION GAP 4 mmol/L (5-15); BLOOD UREA NITROGEN 21 mg/dL (7-18); CALCIUM 7.6 MG/DL (8.5-10.1); CARBON DIOXIDE 36 MMOL/L (21-32); CHLORIDE 108 MMOL/L (98-107); CREATININE 0.6 MG/DL (0.55-1.30); POTASSIUM 3.5 MMOL/L (3.5-5.1); SODIUM 148 MMOL/L (136-145)
[2020-07-01] MEDS: Docusate 100mg/10ml Liq NG SCH ×3 (09:00→18:00)
[2020-07-01] MEDS: Pantoprazole Inj IVP SCH ×2 (09:00→20:10)
[2020-07-01] MEDS: Vitamin D 1000 units Tab GT SCH (09:00)
[2020-07-01] MEDS: Carvedilol 6.25mg Tab ORAL SCH ×2 (09:00→21:00)
[2020-07-01 09:31] LABS: ALANINE AMINOTRANSFERASE 60 U/L (12-78); ALBUMIN 1.4 G/DL (3.4-5.0); ALKALINE PHOSPHATASE 128 U/L (46-116); ASPARTATE AMINO TRANSFERASE 59 U/L (15-37); BILIRUBIN,TOTAL 0.6 MG/DL (0.2-1.0)
[2020-07-01 09:40] LABS: BILIRUBIN,DIRECT 0.3 MG/DL (0.0-0.3)
--- NOTE | 2020-07-01 10:07 | Nephrology Progress Note ---
Assessment/Plan Problem List: (1) LEONARDO (acute kidney injury) (2) Dehydration (3) DMII (diabetes mellitus, type 2) (4) Pneumonia due to COVID-19 virus (5) Hypoxia Assessment 70-year-old female presents with COVID-19 pneumonia and hypoxia On admission has BUN of 77 and creatinine of 1.6. Renal failure most likely prerenal and dehydration with possible underlying chronic kidney disease Patient has elevated inflammatory markers Hypoalbuminemia Electrolyte abnormalities Hyperglycemia Plan July 01: Remains intubated. Continues to have bilateral chest tube. Full code. Labs reviewed. Renal parameters stable. Low phosphorus addressed. Discussed with NORMAN Lyon. June 30: Full code. Intubated. Bilateral chest tube. As reviewed. Abnormal electrolytes addressed. June 29: Full code. Intubated. Bilateral chest tube. Unstable pulmonary status. ABG ordered. Electrolyte imbalance addressed. Discussed with NORMAN Montalvo. June 28: Labs reviewed. Abnormal electrolytes addressed. Patient remains full code. Continue per consultants. June 27: No chemistry panel done today. Remains full code. Medication list reviewed. Continue per consultants. Will monitor electrolytes and renal panel in a.m. June 26: Status quo. Remains full code. Labs reviewed. Main IV changed to normal saline 50 cc an hour. Continue per consultants and pulmonary. June 25: Remains intubated. Has bilateral chest tube. Full code. Labs reviewed. Abnormal electrolytes addressed. Albumin bolus given. Continue to monitor renal parameters. Poor prognosis. June 24: Patient in ICU. Intubated. Has bilateral chest tube. Labs reviewed. Renal parameters stable. Low phosphorus addressed. Continue per consultants. Full code. Poor prognosis. June 23: Patient in ICU. Intubated. Due for insertion of a chest tube. Has pneumothorax. Renal parameters are stable. Serum sodium rising. Will adjust IV fluid. Continue per consultants. Patient full code. Prognosis poor. June 22: Labs reviewed. Remains on BiPAP which is not changed to high flow oxygen due to pneumothorax found on chest x-ray. Serum sodium 155. Continues on D5W. Electrolytes within normal limits. Check 2D echocardiogram. Coreg for blood pressure and heart rate. June 21: Status quo. On BiPAP. Full code. Serum sodium 153. Continue D5W. Continue to monitor electrolytes. Continue per consultants. June 20: Patient full code. On BiPAP. Labs reviewed. Serum sodium rising. Will increase D5W to 75 cc an hour. Continue to monitor electrolytes. June 19: IV changed to D5W. Monitor blood sugar. Monitor electrolytes. Medication list reviewed. Patient is being treated for COVID-19 pneumonia. Patient is full code. Previously Pulmonary support IV antibiotics Slow hydration Avoid nephrotoxic Monitor renal parameters Per orders Subjective ROS Limited/Unobtainable: Yes Objective Objective Last 24 Hour Vital Signs Date Time Temp Pulse Resp B/P (MAP) Pulse Ox O2 Delivery O2 Flow Rate FiO2 07/01/20 09:54 107 33 90 07/01/20 09:00 109 33 127/66 (86) 96 07/01/20 08:00 109 33 127/66 (86) 96 07/01/20 08:00 Mechanical Ventilator Mechanical Ventilator 07/01/20 08:00 109 33 134/69 (90) 95 07/01/20 08:00 107 07/01/20 08:00 90 07/01/20 07:45 110 34 90 07/01/20 07:45 110 33 130/70 (90) 95 07/01/20 07:30 110 33 119/66 (83) 94 07/01/20 07:15 110 33 120/61 (80) 95 07/01/20 07:00 109 33 134/69 (90) 95 07/01/20 07:00 109 33 134/69 (90) 95 07/01/20 07:00 33 Mechanical Ventilator 90 07/01/20 07:00 33 134/69 Mechanical Ventilator 90 07/01/20 06:45 108 33 135/66 (89) 95 07/01/20 06:30 108 33 134/69 (90) 95 07/01/20 06:15 106 33 128/66 (86) 96 07/01/20 06:00 105 33 127/66 (86) 95 07/01/20 06:00 33 Mechanical Ventilator 90 07/01/20 06:00 33 127/66 Mechanical Ventilator 90 07/01/20 06:00 105 33 127/66 (86) 95 07/01/20 05:00 32 Mechanical Ventilator 90 07/01/20 05:00 32 94/58 Mechanical Ventilator 90 07/01/20 05:00 104 32 94/58 (70) 92 07/01/20 04:00 99.6 107 32 96/54 (68) 96 07/01/20 04:00 Mechanical Ventilator Mechanical Ventilator 07/01/20 04:00 107 07/01/20 04:00 32 Mechanical Ventilator 90 07/01/20 04:00 32 96/54 Mechanical Ventilator 90 07/01/20 04:00 90 07/01/20 03:30 108 33 90 07/01/20 03:00 32 Mechanical Ventilator 90 07/01/20 03:00 32 138/67 Mechanical Ventilator 90 07/01/20 03:00 108 32 138/67 (90) 95 07/01/20 02:00 32 Mechanical Ventilator 90 07/01/20 02:00 32 134/77 Mechanical Ventilator 90 07/01/20 02:00 108 32 134/77 (96) 96 07/01/20 01:05 32 Mechanical Ventilator 90 07/01/20 01:03 32 147/79 Mechanical Ventilator 90 07/01/20 01:00 33 147/79 Mechanical Ventilator 90 07/01/20 01:00 33 Mechanical Ventilator 90 07/01/20 01:00 112 33 147/79 (101) 95 07/01/20 00:00 90 07/01/20 00:00 Mechanical Ventilator Mechanical Ventilator 07/01/20 00:00 110 07/01/20 00:00 98.9 110 33 138/68 (91) 96 07/01/20 00:00 20 102/58 Mechanical Ventilator 90 07/01/20 00:00 15 Mechanical Ventilator 90 06/30/20 23:31 106 34 90 06/30/20 23:00 20 106/69 Mechanical Ventilator 90 06/30/20 23:00 20 Mechanical Ventilator 90 06/30/20 23:00 106 32 120/62 (81) 95 06/30/20 22:00 103 32 121/66 (84) 86 06/30/20 22:00 17 106/62 Mechanical Ventilator 90 06/30/20 22:00 17 Mechanical Ventilator 90 06/30/20 21:00 32 108/58 Mechanical Ventilator 90 06/30/20 21:00 32 Mechanical Ventilator 90 06/30/20 21:00 107 32 108/58 (75) 86 06/30/20 20:32 109 119/65 06/30/20 20:30 111 32 119/65 (83) 99 06/30/20 20:00 90 06/30/20 20:00 99.3 110 32 118/76 (90) 100 06/30/20 20:00 32 118/76 Mechanical Ventilator 90 06/30/20 20:00 32 Mechanical Ventilator 90 06/30/20 20:00 Mechanical Ventilator Mechanical Ventilator 06/30/20 19:40 109 31 90 06/30/20 19:36 109 06/30/20 19:00 31 135/70 Mechanical Ventilator 100 06/30/20 19:00 31 Mechanical Ventilator 100 06/30/20 19:00 113 32 120/71 (87) 98 06/30/20 18:30 100.8 114 26 146/71 (96) 92 06/30/20 18:00 32 153/69 Mechanical Ventilator 100 06/30/20 18:00 33 Mechanical Ventilator 100 06/30/20 18:00 115 27 153/69 (97) 95 06/30/20 17:30 117 33 121/77 (92) 97 06/30/20 17:00 33 126/67 Mechanical Ventilator 100 06/30/20 17:00 33 Mechanical Ventilator 100 06/30/20 17:00 120 33 126/67 (86) 95 06/30/20 16:30 123 33 183/92 (122) 87 06/30/20 16:00 Mechanical Ventilator Mechanical Ventilator 06/30/20 16:00 90 06/30/20 16:00 33 164/88 Mechanical Ventilator 100 06/30/20 16:00 33 Mechanical Ventilator 100 06/30/20 16:00 127 33 164/88 (113) 93 06/30/20 16:00 120 06/30/20 15:30 125 34 142/83 (102) 95 06/30/20 15:27 121 33 100 06/30/20 15:00 124 32 143/76 (98) 96 06/30/20 15:00 33 143/76 Mechanical Ventilator 100 06/30/20 15:00 33 Mechanical Ventilator 100 06/30/20 14:30 122 34 153/82 (105) 95 06/30/20 14:00 33 161/80 Mechanical Ventilator 100 06/30/20 14:00 33 Mechanical Ventilator 100 06/30/20 14:00 120 34 161/80 (107) 94 06/30/20 13:30 119 34 157/78 (104) 94 06/30/20 13:00 34 160/86 Mechanical Ventilator 100 06/30/20 13:00 34 Mechanical Ventilator 100 06/30/20 13:00 118 34 160/86 (110) 93 06/30/20 12:30 120 33 161/89 (113) 99 06/30/20 12:00 Mechanical Ventilator Mechanical Ventilator 06/30/20 12:00 99.8 06/30/20 12:00 33 168/101 Mechanical Ventilator 100 06/30/20 12:00 33 Mechanical Ventilator 100 06/30/20 12:00 120 33 170/96 (120) 98 06/30/20 12:00 120 06/30/20 12:00 90 06/30/20 11:30 120 33 154/89 (110) 98 06/30/20 11:00 33 145/85 Mechanical Ventilator 100 06/30/20 11:00 33 100 06/30/20 11:00 119 33 149/89 (109) 97 06/30/20 10:56 122 34 100 06/30/20 10:30 114 33 145/85 (105) 96 Intake and Output 06/30/20 07/01/20 19:00 07:00 Intake Total 1828.6667 ml 1427 ml Output Total 2005 ml 535 ml Balance -176.3333 ml 892 ml Intake Free Water 270 ml IV Total 953.6667 ml 672 ml Tube Feeding 605 ml 715 ml Other 40 ml Output Urine Total 1905 ml 490 ml Chest Tube Drainage Total 100 ml 45 ml Current Medications Medications (Trade) Dose Ordered Sig/Maya Route PRN Reason Start Time Stop Time Status Last Admin Dose Admin Acetaminophen (Tylenol) 500 mg Q4H PRN ORAL Mild Pain (Pain Scale 1-3) 06/18/20 00:15 07/18/20 00:14 06/24/20 17:51 Acetaminophen (Tylenol) 500 mg Q4H PRN ORAL Temp >100.5 06/18/20 00:15 07/18/20 00:14 06/29/20 20:01 Carvedilol (Coreg) 6.25 mg EVERY 12 HOURS ORAL 06/22/20 21:00 07/22/20 20:59 06/30/20 20:32 Chlorhexidine Gluconate (Sissy-Hex 2%) 1 applic DAILY@2000 TOPIC 06/28/20 20:00 09/26/20 19:59 06/30/20 19:40 Dextrose (Dextrose 50%) 25 ml Q30M PRN IV Hypoglycemia 06/18/20 14:15 09/16/20 14:14 Dextrose (Dextrose 50%) 50 ml Q30M PRN IV Hypoglycemia 06/18/20 14:15 09/16/20 14:14 Docusate Sodium (Colace) 100 mg THREE TIMES A DAY NG 06/28/20 13:00 07/28/20 12:59 06/30/20 18:39 Fentanyl Citrate 1000 mcg/Sodium Chloride 100 ml @ 1 mls/hr Q24H PRN IV sedation 06/29/20 20:00 07/01/20 19:59 07/01/20 01:03 Furosemide (Lasix) 40 mg DAILY IV 06/28/20 17:45 07/28/20 16:59 06/30/20 08:28 Haloperidol Lactate (Haldol) 10 mg Q6H PRN IM Agitation 06/23/20 11:30 08/07/20 11:29 06/23/20 11:34 Heparin Sodium/ Sodium Chloride (Heparin 1000 units/500ml Premix) 1,000 unit NEEDED PRN IV PICC LINE PLACEMENT 06/28/20 20:00 Insulin Aspart (NovoLOG) while NPO Q6HR SUBQ 06/18/20 18:00 09/16/20 17:59 07/01/20 05:49 Midazolam HCl 100 ml @ 0 mls/hr Q24H PRN IV Per rx protocol 06/30/20 03:00 07/02/20 02:59 07/01/20 01:05 Pantoprazole (Protonix) 40 mg EVERY 12 HOURS IVP 06/18/20 21:00 07/18/20 20:59 06/30/20 20:31 Sodium Chloride 1,000 ml @ 50 mls/hr Q20H IV 06/26/20 08:00 07/26/20 07:59 07/01/20 05:38 Vitamin D (Vitamin D) 2,000 unit DAILY GT 06/29/20 10:30 07/29/20 10:29 06/30/20 08:30 Laboratory Tests 07/01/20 06:11: White Blood Count 9.9, Red Blood Count 3.67L, Hemoglobin 11.1L, Hematocrit 34.7L , Mean Corpuscular Volume 95, Mean Corpuscular Hemoglobin 30.3, Mean Corpuscular Hemoglobin Concent 32.0, Red Cell Distribution Width 14.7, Platelet Count 100L, Mean Platelet Volume 7.6, Neutrophils (%) (Auto) , Lymphocytes (%) (Auto) , Monocytes (%) (Auto) , Eosinophils (%) (Auto) , Basophils (%) (Auto) , Differential Total Cells Counted 100, Neutrophils % (Manual) 87H, Lymphocytes % (Manual) 9L, Monocytes % (Manual) 2, Eosinophils % (Manual) 2, Basophils % (Manual) 0, Band Neutrophils 0, Platelet Estimate DecreasedL, Platelet Morphology Normal, Anisocytosis 1+, Sodium Level 148H, Potassium Level 3.5, Chloride Level 108H, Carbon Dioxide Level 36H, Anion Gap 4L, Blood Urea Nitrogen 21H, Creatinine 0.6, Estimat Glomerular Filtration Rate > 60, Glucose Level 144H , Calcium Level 7.6L, Phosphorus Level 2.0L, Magnesium Level 2.0, Total Bilirubin 0.6, Direct Bilirubin 0.3, Aspartate Amino Transf (AST/SGOT) 59H, Alanine Aminotransferase (ALT/SGPT) 60, Alkaline Phosphatase 128H, Total Protein 5.4L, Albumin 1.4L Height (Feet): 5 Height (Inches): 2.00 Weight (Pounds): 138 General Appearance: mild distress EENT: other - Intubated on ventilator Cardiovascular: tachycardia Respiratory/Chest: decreased breath sounds, other - Bilateral chest tube present Raza De Jesus MD Jul 01, 2020 10:07
--- NOTE | 2020-07-01 10:20 | Pulmonology Progress Note ---
Subjective ROS Limited/Unobtainable: Yes Interval Events: Remains intubated; bilateral chest tubes in place Constitutional: Reports: fever, other - low grade HEENT: Repors: no symptoms Respiratory: Reports: shortness of breath Cardiovascular: Reports: no symptoms Gastrointestinal/Abdominal: Reports: no symptoms Allergies: Coded Allergies: No Known Allergies (Unverified , 06/17/20) All Systems: reviewed and negative except above Objective Last 24 Hour Vital Signs Date Time Temp Pulse Resp B/P (MAP) Pulse Ox O2 Delivery O2 Flow Rate FiO2 07/01/20 09:54 107 33 90 07/01/20 09:00 109 33 127/66 (86) 96 07/01/20 08:00 109 33 127/66 (86) 96 07/01/20 08:00 Mechanical Ventilator Mechanical Ventilator 07/01/20 08:00 109 33 134/69 (90) 95 07/01/20 08:00 107 07/01/20 08:00 90 07/01/20 07:45 110 34 90 07/01/20 07:45 110 33 130/70 (90) 95 07/01/20 07:30 110 33 119/66 (83) 94 07/01/20 07:15 110 33 120/61 (80) 95 07/01/20 07:00 109 33 134/69 (90) 95 07/01/20 07:00 109 33 134/69 (90) 95 07/01/20 07:00 33 Mechanical Ventilator 90 07/01/20 07:00 33 134/69 Mechanical Ventilator 90 07/01/20 06:45 108 33 135/66 (89) 95 07/01/20 06:30 108 33 134/69 (90) 95 07/01/20 06:15 106 33 128/66 (86) 96 07/01/20 06:00 105 33 127/66 (86) 95 07/01/20 06:00 33 Mechanical Ventilator 90 07/01/20 06:00 33 127/66 Mechanical Ventilator 90 07/01/20 06:00 105 33 127/66 (86) 95 07/01/20 05:00 32 Mechanical Ventilator 90 07/01/20 05:00 32 94/58 Mechanical Ventilator 90 07/01/20 05:00 104 32 94/58 (70) 92 07/01/20 04:00 99.6 107 32 96/54 (68) 96 07/01/20 04:00 Mechanical Ventilator Mechanical Ventilator 07/01/20 04:00 107 07/01/20 04:00 32 Mechanical Ventilator 90 07/01/20 04:00 32 96/54 Mechanical Ventilator 90 07/01/20 04:00 90 07/01/20 03:30 108 33 90 07/01/20 03:00 32 Mechanical Ventilator 90 07/01/20 03:00 32 138/67 Mechanical Ventilator 90 07/01/20 03:00 108 32 138/67 (90) 95 07/01/20 02:00 32 Mechanical Ventilator 90 07/01/20 02:00 32 134/77 Mechanical Ventilator 90 07/01/20 02:00 108 32 134/77 (96) 96 07/01/20 01:05 32 Mechanical Ventilator 90 07/01/20 01:03 32 147/79 Mechanical Ventilator 90 07/01/20 01:00 33 147/79 Mechanical Ventilator 90 07/01/20 01:00 33 Mechanical Ventilator 90 07/01/20 01:00 112 33 147/79 (101) 95 07/01/20 00:00 90 07/01/20 00:00 Mechanical Ventilator Mechanical Ventilator 07/01/20 00:00 110 07/01/20 00:00 98.9 110 33 138/68 (91) 96 07/01/20 00:00 20 102/58 Mechanical Ventilator 90 07/01/20 00:00 15 Mechanical Ventilator 90 06/30/20 23:31 106 34 90 06/30/20 23:00 20 106/69 Mechanical Ventilator 90 06/30/20 23:00 20 Mechanical Ventilator 90 06/30/20 23:00 106 32 120/62 (81) 95 06/30/20 22:00 103 32 121/66 (84) 86 06/30/20 22:00 17 106/62 Mechanical Ventilator 90 06/30/20 22:00 17 Mechanical Ventilator 90 06/30/20 21:00 32 108/58 Mechanical Ventilator 90 06/30/20 21:00 32 Mechanical Ventilator 90 06/30/20 21:00 107 32 108/58 (75) 86 06/30/20 20:32 109 119/65 06/30/20 20:30 111 32 119/65 (83) 99 06/30/20 20:00 90 06/30/20 20:00 99.3 110 32 118/76 (90) 100 06/30/20 20:00 32 118/76 Mechanical Ventilator 90 06/30/20 20:00 32 Mechanical Ventilator 90 06/30/20 20:00 Mechanical Ventilator Mechanical Ventilator 06/30/20 19:40 109 31 90 06/30/20 19:36 109 06/30/20 19:00 31 135/70 Mechanical Ventilator 100 06/30/20 19:00 31 Mechanical Ventilator 100 06/30/20 19:00 113 32 120/71 (87) 98 06/30/20 18:30 100.8 114 26 146/71 (96) 92 06/30/20 18:00 32 153/69 Mechanical Ventilator 100 06/30/20 18:00 33 Mechanical Ventilator 100 06/30/20 18:00 115 27 153/69 (97) 95 06/30/20 17:30 117 33 121/77 (92) 97 06/30/20 17:00 33 126/67 Mechanical Ventilator 100 06/30/20 17:00 33 Mechanical Ventilator 100 06/30/20 17:00 120 33 126/67 (86) 95 06/30/20 16:30 123 33 183/92 (122) 87 06/30/20 16:00 Mechanical Ventilator Mechanical Ventilator 06/30/20 16:00 90 06/30/20 16:00 33 164/88 Mechanical Ventilator 100 06/30/20 16:00 33 Mechanical Ventilator 100 06/30/20 16:00 127 33 164/88 (113) 93 06/30/20 16:00 120 06/30/20 15:30 125 34 142/83 (102) 95 06/30/20 15:27 121 33 100 06/30/20 15:00 124 32 143/76 (98) 96 06/30/20 15:00 33 143/76 Mechanical Ventilator 100 06/30/20 15:00 33 Mechanical Ventilator 100 06/30/20 14:30 122 34 153/82 (105) 95 06/30/20 14:00 33 161/80 Mechanical Ventilator 100 06/30/20 14:00 33 Mechanical Ventilator 100 06/30/20 14:00 120 34 161/80 (107) 94 06/30/20 13:30 119 34 157/78 (104) 94 06/30/20 13:00 34 160/86 Mechanical Ventilator 100 06/30/20 13:00 34 Mechanical Ventilator 100 06/30/20 13:00 118 34 160/86 (110) 93 06/30/20 12:30 120 33 161/89 (113) 99 06/30/20 12:00 Mechanical Ventilator Mechanical Ventilator 06/30/20 12:00 99.8 06/30/20 12:00 33 168/101 Mechanical Ventilator 100 06/30/20 12:00 33 Mechanical Ventilator 100 06/30/20 12:00 120 33 170/96 (120) 98 06/30/20 12:00 120 06/30/20 12:00 90 06/30/20 11:30 120 33 154/89 (110) 98 06/30/20 11:00 33 145/85 Mechanical Ventilator 100 06/30/20 11:00 33 100 06/30/20 11:00 119 33 149/89 (109) 97 06/30/20 10:56 122 34 100 06/30/20 10:30 114 33 145/85 (105) 96 Intake and Output 06/30/20 07/01/20 19:00 07:00 Intake Total 1828.6667 ml 1427 ml Output Total 2005 ml 535 ml Balance -176.3333 ml 892 ml Intake Free Water 270 ml IV Total 953.6667 ml 672 ml Tube Feeding 605 ml 715 ml Other 40 ml Output Urine Total 1905 ml 490 ml Chest Tube Drainage Total 100 ml 45 ml General Appearance: no acute distress HEENT: atraumatic Respiratory: crackles/rales Cardiovascular: normal rate Abdomen: soft, non tender Laboratory Tests 07/01/20 06:11: White Blood Count 9.9, Red Blood Count 3.67L, Hemoglobin 11.1L, Hematocrit 34.7L , Mean Corpuscular Volume 95, Mean Corpuscular Hemoglobin 30.3, Mean Corpuscular Hemoglobin Concent 32.0, Red Cell Distribution Width 14.7, Platelet Count 100L, Mean Platelet Volume 7.6, Neutrophils (%) (Auto) , Lymphocytes (%) (Auto) , Monocytes (%) (Auto) , Eosinophils (%) (Auto) , Basophils (%) (Auto) , Differential Total Cells Counted 100, Neutrophils % (Manual) 87H, Lymphocytes % (Manual) 9L, Monocytes % (Manual) 2, Eosinophils % (Manual) 2, Basophils % (Manual) 0, Band Neutrophils 0, Platelet Estimate DecreasedL, Platelet Morphology Normal, Anisocytosis 1+, Sodium Level 148H, Potassium Level 3.5, Chloride Level 108H, Carbon Dioxide Level 36H, Anion Gap 4L, Blood Urea Nitrogen 21H, Creatinine 0.6, Estimat Glomerular Filtration Rate > 60, Glucose Level 144H , Calcium Level 7.6L, Phosphorus Level 2.0L, Magnesium Level 2.0, Total Bilirubin 0.6, Direct Bilirubin 0.3, Aspartate Amino Transf (AST/SGOT) 59H, Alanine Aminotransferase (ALT/SGPT) 60, Alkaline Phosphatase 128H, Total Protein 5.4L, Albumin 1.4L Current Medications Medications (Trade) Dose Ordered Sig/Maya Route PRN Reason Start Time Stop Time Status Last Admin Dose Admin Acetaminophen (Tylenol) 500 mg Q4H PRN ORAL Mild Pain (Pain Scale 1-3) 06/18/20 00:15 07/18/20 00:14 06/24/20 17:51 Acetaminophen (Tylenol) 500 mg Q4H PRN ORAL Temp >100.5 06/18/20 00:15 07/18/20 00:14 06/29/20 20:01 Carvedilol (Coreg) 6.25 mg EVERY 12 HOURS ORAL 06/22/20 21:00 07/22/20 20:59 06/30/20 20:32 Chlorhexidine Gluconate (Sissy-Hex 2%) 1 applic DAILY@2000 TOPIC 06/28/20 20:00 09/26/20 19:59 06/30/20 19:40 Dextrose (Dextrose 50%) 25 ml Q30M PRN IV Hypoglycemia 06/18/20 14:15 09/16/20 14:14 Dextrose (Dextrose 50%) 50 ml Q30M PRN IV Hypoglycemia 06/18/20 14:15 09/16/20 14:14 Docusate Sodium (Colace) 100 mg THREE TIMES A DAY NG 06/28/20 13:00 07/28/20 12:59 06/30/20 18:39 Fentanyl Citrate 1000 mcg/Sodium Chloride 100 ml @ 1 mls/hr Q24H PRN IV sedation 06/29/20 20:00 07/01/20 19:59 07/01/20 01:03 Furosemide (Lasix) 40 mg DAILY IV 06/28/20 17:45 07/28/20 16:59 06/30/20 08:28 Haloperidol Lactate (Haldol) 10 mg Q6H PRN IM Agitation 06/23/20 11:30 08/07/20 11:29 06/23/20 11:34 Heparin Sodium/ Sodium Chloride (Heparin 1000 units/500ml Premix) 1,000 unit NEEDED PRN IV PICC LINE PLACEMENT 06/28/20 20:00 Insulin Aspart (NovoLOG) while NPO Q6HR SUBQ 06/18/20 18:00 09/16/20 17:59 07/01/20 05:49 Midazolam HCl 100 ml @ 0 mls/hr Q24H PRN IV Per rx protocol 06/30/20 03:00 07/02/20 02:59 07/01/20 01:05 Pantoprazole (Protonix) 40 mg EVERY 12 HOURS IVP 06/18/20 21:00 07/18/20 20:59 06/30/20 20:31 Potassium Phosphate 20 mm/ Sodium Chloride 281.6667 ml @ 46.944 m... ONCE ONCE IV 07/01/20 10:15 07/01/20 16:14 UNV Sodium Chloride 1,000 ml @ 50 mls/hr Q20H IV 06/26/20 08:00 07/26/20 07:59 07/01/20 05:38 Vitamin D (Vitamin D) 2,000 unit DAILY GT 06/29/20 10:30 07/29/20 10:29 06/30/20 08:30 Assessment/Plan Assessment/Plan 1. COVID-19 pneumonia -Intubated, on 80% FiO2. PEEP 5-10. -Will increase PEEP as peak pressures tolerate. SaO2 96% -On Decadron, s/p remdesivir 2. Leukocytosis -Likely secondary to #1 -WBC improving 3. Elevated D-dimer -Venous duplex ultrasound negative for DVT -Was on full dose Lovenox, switched to 40 subcu QD for DVT prophylaxis 4. Renal insufficiency -On IV fluids - nephro following 5. Anemia of chronic disease -Hematology oncology following 6. Sepsis -Status post antibiotics, fluid resuscitation 7. Pneumothorax 06/22/20 - b/l subcutaneous emphysema, pneumomediastinum, probable small left p neumothorax & ? trace right pneumothorax. -Pleur-evac adjusted by RN - placed CT by surgery (bilateral) - Charlie Sewell MD Jul 01, 2020 10:20
[2020-07-01] MEDS ORDERED: Potassium Phosphate 20 MM in NS 275 ML IV SCH (11:30)
--- NOTE | 2020-07-01 11:31 | Infectious Diseases Prog Note ---
Assessment/Plan Assessment/Plan A; Fever Sepsis COVID19 pneumonia Hypoxic respiratory failure Acute kidney injury, resolving Hyperglycemia, DM type 2 Bilateral pneumothorax Leukocytosis resolved Anemia P; Finished Remdesivir & Dexamethasone course UA, urine culture, CXR Poor prognosis Subjective ROS Limited/Unobtainable: Yes Constitutional: Reports: fever, other - low grade Allergies: Coded Allergies: No Known Allergies (Unverified , 06/17/20) Objective Last 24 Hour Vital Signs Date Time Temp Pulse Resp B/P (MAP) Pulse Ox O2 Delivery O2 Flow Rate FiO2 07/01/20 11:00 105 31 143/79 (100) 98 07/01/20 10:15 106 33 138/81 (100) 96 07/01/20 10:00 105 32 134/72 (92) 96 07/01/20 09:54 107 33 90 07/01/20 09:45 107 31 145/74 (97) 97 07/01/20 09:30 108 32 121/80 (94) 96 07/01/20 09:15 109 33 142/69 (93) 96 07/01/20 09:00 108 33 126/60 (82) 96 07/01/20 09:00 109 33 127/66 (86) 96 07/01/20 08:00 109 33 127/66 (86) 96 07/01/20 08:00 Mechanical Ventilator Mechanical Ventilator 07/01/20 08:00 109 33 134/69 (90) 95 07/01/20 08:00 107 07/01/20 08:00 90 07/01/20 07:45 110 34 90 07/01/20 07:45 110 33 130/70 (90) 95 07/01/20 07:30 110 33 119/66 (83) 94 07/01/20 07:15 110 33 120/61 (80) 95 07/01/20 07:00 109 33 134/69 (90) 95 07/01/20 07:00 109 33 134/69 (90) 95 07/01/20 07:00 33 Mechanical Ventilator 90 07/01/20 07:00 33 134/69 Mechanical Ventilator 90 07/01/20 06:45 108 33 135/66 (89) 95 07/01/20 06:30 108 33 134/69 (90) 95 07/01/20 06:15 106 33 128/66 (86) 96 07/01/20 06:00 105 33 127/66 (86) 95 07/01/20 06:00 33 Mechanical Ventilator 90 07/01/20 06:00 33 127/66 Mechanical Ventilator 90 07/01/20 06:00 105 33 127/66 (86) 95 07/01/20 05:00 32 Mechanical Ventilator 90 07/01/20 05:00 32 94/58 Mechanical Ventilator 90 07/01/20 05:00 104 32 94/58 (70) 92 07/01/20 04:00 99.6 107 32 96/54 (68) 96 07/01/20 04:00 Mechanical Ventilator Mechanical Ventilator 07/01/20 04:00 107 07/01/20 04:00 32 Mechanical Ventilator 90 07/01/20 04:00 32 96/54 Mechanical Ventilator 90 07/01/20 04:00 90 07/01/20 03:30 108 33 90 07/01/20 03:00 32 Mechanical Ventilator 90 07/01/20 03:00 32 138/67 Mechanical Ventilator 90 07/01/20 03:00 108 32 138/67 (90) 95 07/01/20 02:00 32 Mechanical Ventilator 90 07/01/20 02:00 32 134/77 Mechanical Ventilator 90 07/01/20 02:00 108 32 134/77 (96) 96 07/01/20 01:05 32 Mechanical Ventilator 90 07/01/20 01:03 32 147/79 Mechanical Ventilator 90 07/01/20 01:00 33 147/79 Mechanical Ventilator 90 07/01/20 01:00 33 Mechanical Ventilator 90 07/01/20 01:00 112 33 147/79 (101) 95 07/01/20 00:00 90 07/01/20 00:00 Mechanical Ventilator Mechanical Ventilator 07/01/20 00:00 110 07/01/20 00:00 98.9 110 33 138/68 (91) 96 07/01/20 00:00 20 102/58 Mechanical Ventilator 90 07/01/20 00:00 15 Mechanical Ventilator 90 06/30/20 23:31 106 34 90 06/30/20 23:00 20 106/69 Mechanical Ventilator 90 06/30/20 23:00 20 Mechanical Ventilator 90 06/30/20 23:00 106 32 120/62 (81) 95 06/30/20 22:00 103 32 121/66 (84) 86 06/30/20 22:00 17 106/62 Mechanical Ventilator 90 06/30/20 22:00 17 Mechanical Ventilator 90 06/30/20 21:00 32 108/58 Mechanical Ventilator 90 06/30/20 21:00 32 Mechanical Ventilator 90 06/30/20 21:00 107 32 108/58 (75) 86 06/30/20 20:32 109 119/65 06/30/20 20:30 111 32 119/65 (83) 99 06/30/20 20:00 90 06/30/20 20:00 99.3 110 32 118/76 (90) 100 06/30/20 20:00 32 118/76 Mechanical Ventilator 90 06/30/20 20:00 32 Mechanical Ventilator 90 06/30/20 20:00 Mechanical Ventilator Mechanical Ventilator 06/30/20 19:40 109 31 90 06/30/20 19:36 109 06/30/20 19:00 31 135/70 Mechanical Ventilator 100 06/30/20 19:00 31 Mechanical Ventilator 100 06/30/20 19:00 113 32 120/71 (87) 98 06/30/20 18:30 100.8 114 26 146/71 (96) 92 06/30/20 18:00 32 153/69 Mechanical Ventilator 100 06/30/20 18:00 33 Mechanical Ventilator 100 06/30/20 18:00 115 27 153/69 (97) 95 06/30/20 17:30 117 33 121/77 (92) 97 06/30/20 17:00 33 126/67 Mechanical Ventilator 100 06/30/20 17:00 33 Mechanical Ventilator 100 06/30/20 17:00 120 33 126/67 (86) 95 06/30/20 16:30 123 33 183/92 (122) 87 06/30/20 16:00 Mechanical Ventilator Mechanical Ventilator 06/30/20 16:00 90 06/30/20 16:00 33 164/88 Mechanical Ventilator 100 06/30/20 16:00 33 Mechanical Ventilator 100 06/30/20 16:00 127 33 164/88 (113) 93 06/30/20 16:00 120 06/30/20 15:30 125 34 142/83 (102) 95 06/30/20 15:27 121 33 100 06/30/20 15:00 124 32 143/76 (98) 96 06/30/20 15:00 33 143/76 Mechanical Ventilator 100 06/30/20 15:00 33 Mechanical Ventilator 100 06/30/20 14:30 122 34 153/82 (105) 95 06/30/20 14:00 33 161/80 Mechanical Ventilator 100 06/30/20 14:00 33 Mechanical Ventilator 100 06/30/20 14:00 120 34 161/80 (107) 94 06/30/20 13:30 119 34 157/78 (104) 94 06/30/20 13:00 34 160/86 Mechanical Ventilator 100 06/30/20 13:00 34 Mechanical Ventilator 100 06/30/20 13:00 118 34 160/86 (110) 93 06/30/20 12:30 120 33 161/89 (113) 99 06/30/20 12:00 Mechanical Ventilator Mechanical Ventilator 06/30/20 12:00 99.8 06/30/20 12:00 33 168/101 Mechanical Ventilator 100 06/30/20 12:00 33 Mechanical Ventilator 100 06/30/20 12:00 120 33 170/96 (120) 98 06/30/20 12:00 120 06/30/20 12:00 90 06/30/20 11:30 120 33 154/89 (110) 98 Height (Feet): 5 Height (Inches): 2.00 Weight (Pounds): 138 HEENT: other - orally intubated Respiratory/Chest: other - on ventilator FIO2=90%, bilateral chext tubes Cardiovascular: tachycardia, other - R arm PICC line Abdomen: soft, non tender Genitourinary: other - Martin catheter Extremities: other - edema, more in upper extemities Neurologic/Psychiatric: other - sedated Laboratory Tests Test 07/01/20 06:11 White Blood Count 9.9 K/UL (4.8-10.8) Red Blood Count 3.67 M/UL (4.20-5.40) L Hemoglobin 11.1 G/DL (12.0-16.0) L Hematocrit 34.7 % (37.0-47.0) L Mean Corpuscular Volume 95 FL (80-99) Mean Corpuscular Hemoglobin 30.3 PG (27.0-31.0) Mean Corpuscular Hemoglobin Concent 32.0 G/DL (32.0-36.0) Red Cell Distribution Width 14.7 % (11.6-14.8) Platelet Count 100 K/UL (150-450) L Mean Platelet Volume 7.6 FL (6.5-10.1) Neutrophils (%) (Auto) % (45.0-75.0) Lymphocytes (%) (Auto) % (20.0-45.0) Monocytes (%) (Auto) % (1.0-10.0) Eosinophils (%) (Auto) % (0.0-3.0) Basophils (%) (Auto) % (0.0-2.0) Differential Total Cells Counted 100 Neutrophils % (Manual) 87 % (45-75) H Lymphocytes % (Manual) 9 % (20-45) L Monocytes % (Manual) 2 % (1-10) Eosinophils % (Manual) 2 % (0-3) Basophils % (Manual) 0 % (0-2) Band Neutrophils 0 % (0-8) Platelet Estimate Decreased L Platelet Morphology Normal Anisocytosis 1+ Sodium Level 148 MMOL/L (136-145) H Potassium Level 3.5 MMOL/L (3.5-5.1) Chloride Level 108 MMOL/L (98-107) H Carbon Dioxide Level 36 MMOL/L (21-32) H Anion Gap 4 mmol/L (5-15) L Blood Urea Nitrogen 21 mg/dL (7-18) H Creatinine 0.6 MG/DL (0.55-1.30) Estimat Glomerular Filtration Rate > 60 mL/min (>60) Glucose Level 144 MG/DL (74-106) H Calcium Level 7.6 MG/DL (8.5-10.1) L Phosphorus Level 2.0 MG/DL (2.5-4.9) L Magnesium Level 2.0 MG/DL (1.8-2.4) Total Bilirubin 0.6 MG/DL (0.2-1.0) Direct Bilirubin 0.3 MG/DL (0.0-0.3) Aspartate Amino Transf (AST/SGOT) 59 U/L (15-37) H Alanine Aminotransferase (ALT/SGPT) 60 U/L (12-78) Alkaline Phosphatase 128 U/L (46-116) H Total Protein 5.4 G/DL (6.4-8.2) L Albumin 1.4 G/DL (3.4-5.0) L Current Medications Medications (Trade) Dose Ordered Sig/Maya Route PRN Reason Start Time Stop Time Status Last Admin Dose Admin Acetaminophen (Tylenol) 500 mg Q4H PRN ORAL Mild Pain (Pain Scale 1-3) 06/18/20 00:15 07/18/20 00:14 06/24/20 17:51 Acetaminophen (Tylenol) 500 mg Q4H PRN ORAL Temp >100.5 06/18/20 00:15 07/18/20 00:14 06/29/20 20:01 Carvedilol (Coreg) 6.25 mg EVERY 12 HOURS ORAL 06/22/20 21:00 07/22/20 20:59 06/30/20 20:32 Chlorhexidine Gluconate (Sissy-Hex 2%) 1 applic DAILY@2000 TOPIC 06/28/20 20:00 09/26/20 19:59 06/30/20 19:40 Dextrose (Dextrose 50%) 25 ml Q30M PRN IV Hypoglycemia 06/18/20 14:15 09/16/20 14:14 Dextrose (Dextrose 50%) 50 ml Q30M PRN IV Hypoglycemia 06/18/20 14:15 09/16/20 14:14 Docusate Sodium (Colace) 100 mg THREE TIMES A DAY NG 06/28/20 13:00 07/28/20 12:59 06/30/20 18:39 Fentanyl Citrate 1000 mcg/Sodium Chloride 100 ml @ 1 mls/hr Q24H PRN IV sedation 06/29/20 20:00 07/01/20 19:59 07/01/20 01:03 Furosemide (Lasix) 40 mg DAILY IV 06/28/20 17:45 07/28/20 16:59 06/30/20 08:28 Haloperidol Lactate (Haldol) 10 mg Q6H PRN IM Agitation 06/23/20 11:30 08/07/20 11:29 06/23/20 11:34 Heparin Sodium/ Sodium Chloride (Heparin 1000 units/500ml Premix) 1,000 unit NEEDED PRN IV PICC LINE PLACEMENT 06/28/20 20:00 Insulin Aspart (NovoLOG) while NPO Q6HR SUBQ 06/18/20 18:00 09/16/20 17:59 07/01/20 05:49 Midazolam HCl 100 ml @ 0 mls/hr Q24H PRN IV Per rx protocol 06/30/20 03:00 07/02/20 02:59 07/01/20 01:05 Pantoprazole (Protonix) 40 mg EVERY 12 HOURS IVP 06/18/20 21:00 07/18/20 20:59 06/30/20 20:31 Potassium Phosphate 20 mm/ Sodium Chloride 281.6667 ml @ 46.944 m... ONCE IV 07/01/20 11:30 07/01/20 12:30 Sodium Chloride 1,000 ml @ 50 mls/hr Q20H IV 06/26/20 08:00 07/26/20 07:59 07/01/20 05:38 Vitamin D (Vitamin D) 2,000 unit DAILY GT 06/29/20 10:30 07/29/20 10:29 06/30/20 08:30 Raji Turpin MD Jul 01, 2020 11:31
[2020-07-01] MEDS: Cefepime HCl 1 GM in D5W 55 ML IVPB SCH ×2 (11:45→20:10)
--- NOTE | 2020-07-01 13:31 | Surgery Progress Note ---
Surgery Progress Note Subjective Procedure Performed 1. right chest tube insertion 2. left chest tube insertion Additional Comments ill appearing on support labs noted imaging reviewed micro reviewed cont weaning worsening air leaks sub q air Objective Last 24 Hour Vital Signs Date Time Temp Pulse Resp B/P (MAP) Pulse Ox O2 Delivery O2 Flow Rate FiO2 07/01/20 13:00 117 31 129/75 (93) 96 07/01/20 12:00 90 07/01/20 12:00 Mechanical Ventilator Mechanical Ventilator 07/01/20 12:00 33 Mechanical Ventilator 07/01/20 12:00 33 146/78 Mechanical Ventilator 07/01/20 12:00 107 07/01/20 12:00 108 33 95 07/01/20 11:45 107 32 159/76 (103) 95 07/01/20 11:30 107 33 143/73 (96) 94 07/01/20 11:15 107 32 146/75 (98) 95 07/01/20 11:00 105 31 143/79 (100) 98 07/01/20 11:00 32 Mechanical Ventilator 07/01/20 11:00 33 147/62 07/01/20 11:00 106 32 143/79 (100) 96 07/01/20 10:45 106 32 121/69 (86) 96 07/01/20 10:30 106 32 147/76 (99) 96 07/01/20 10:15 106 33 138/81 (100) 96 07/01/20 10:15 106 33 138/81 (100) 96 07/01/20 10:00 105 32 134/72 (92) 96 07/01/20 10:00 34 Mechanical Ventilator 07/01/20 10:00 33 156/67 07/01/20 10:00 105 32 134/72 (92) 96 07/01/20 09:54 107 33 90 07/01/20 09:45 107 31 145/74 (97) 97 07/01/20 09:30 108 32 121/80 (94) 96 07/01/20 09:15 109 33 142/69 (93) 96 07/01/20 09:00 108 33 126/60 (82) 96 07/01/20 09:00 33 Mechanical Ventilator 07/01/20 09:00 33 156/67 Mechanical Ventilator 07/01/20 09:00 105 143/70 07/01/20 09:00 109 33 127/66 (86) 96 07/01/20 08:00 30 Mechanical Ventilator 07/01/20 08:00 33 147/72 07/01/20 08:00 109 33 127/66 (86) 96 07/01/20 08:00 Mechanical Ventilator Mechanical Ventilator 07/01/20 08:00 109 33 134/69 (90) 95 07/01/20 08:00 107 07/01/20 08:00 90 07/01/20 07:45 110 34 90 07/01/20 07:45 110 33 130/70 (90) 95 07/01/20 07:30 110 33 119/66 (83) 94 07/01/20 07:15 110 33 120/61 (80) 95 07/01/20 07:00 109 33 134/69 (90) 95 07/01/20 07:00 109 33 134/69 (90) 95 07/01/20 07:00 33 Mechanical Ventilator 90 07/01/20 07:00 33 134/69 Mechanical Ventilator 90 07/01/20 06:45 108 33 135/66 (89) 95 07/01/20 06:30 108 33 134/69 (90) 95 07/01/20 06:15 106 33 128/66 (86) 96 07/01/20 06:00 105 33 127/66 (86) 95 07/01/20 06:00 33 Mechanical Ventilator 90 07/01/20 06:00 33 127/66 Mechanical Ventilator 90 07/01/20 06:00 105 33 127/66 (86) 95 07/01/20 05:00 32 Mechanical Ventilator 90 07/01/20 05:00 32 94/58 Mechanical Ventilator 90 07/01/20 05:00 104 32 94/58 (70) 92 07/01/20 04:00 99.6 107 32 96/54 (68) 96 07/01/20 04:00 Mechanical Ventilator Mechanical Ventilator 07/01/20 04:00 107 07/01/20 04:00 32 Mechanical Ventilator 90 07/01/20 04:00 32 96/54 Mechanical Ventilator 90 07/01/20 04:00 90 07/01/20 03:30 108 33 90 07/01/20 03:00 32 Mechanical Ventilator 90 07/01/20 03:00 32 138/67 Mechanical Ventilator 90 07/01/20 03:00 108 32 138/67 (90) 95 07/01/20 02:00 32 Mechanical Ventilator 90 07/01/20 02:00 32 134/77 Mechanical Ventilator 90 07/01/20 02:00 108 32 134/77 (96) 96 07/01/20 01:05 32 Mechanical Ventilator 90 07/01/20 01:03 32 147/79 Mechanical Ventilator 90 07/01/20 01:00 33 147/79 Mechanical Ventilator 90 07/01/20 01:00 33 Mechanical Ventilator 90 07/01/20 01:00 112 33 147/79 (101) 95 07/01/20 00:00 90 07/01/20 00:00 Mechanical Ventilator Mechanical Ventilator 07/01/20 00:00 110 07/01/20 00:00 98.9 110 33 138/68 (91) 96 07/01/20 00:00 20 102/58 Mechanical Ventilator 90 07/01/20 00:00 15 Mechanical Ventilator 90 06/30/20 23:31 106 34 90 06/30/20 23:00 20 106/69 Mechanical Ventilator 90 06/30/20 23:00 20 Mechanical Ventilator 90 06/30/20 23:00 106 32 120/62 (81) 95 06/30/20 22:00 103 32 121/66 (84) 86 06/30/20 22:00 17 106/62 Mechanical Ventilator 90 06/30/20 22:00 17 Mechanical Ventilator 90 06/30/20 21:00 32 108/58 Mechanical Ventilator 90 06/30/20 21:00 32 Mechanical Ventilator 90 06/30/20 21:00 107 32 108/58 (75) 86 06/30/20 20:32 109 119/65 06/30/20 20:30 111 32 119/65 (83) 99 06/30/20 20:00 90 06/30/20 20:00 99.3 110 32 118/76 (90) 100 06/30/20 20:00 32 118/76 Mechanical Ventilator 90 06/30/20 20:00 32 Mechanical Ventilator 90 06/30/20 20:00 Mechanical Ventilator Mechanical Ventilator 06/30/20 19:40 109 31 90 06/30/20 19:36 109 06/30/20 19:00 31 135/70 Mechanical Ventilator 100 06/30/20 19:00 31 Mechanical Ventilator 100 06/30/20 19:00 113 32 120/71 (87) 98 06/30/20 18:30 100.8 114 26 146/71 (96) 92 06/30/20 18:00 32 153/69 Mechanical Ventilator 100 06/30/20 18:00 33 Mechanical Ventilator 100 06/30/20 18:00 115 27 153/69 (97) 95 06/30/20 17:30 117 33 121/77 (92) 97 06/30/20 17:00 33 126/67 Mechanical Ventilator 100 06/30/20 17:00 33 Mechanical Ventilator 100 06/30/20 17:00 120 33 126/67 (86) 95 06/30/20 16:30 123 33 183/92 (122) 87 06/30/20 16:00 Mechanical Ventilator Mechanical Ventilator 06/30/20 16:00 90 06/30/20 16:00 33 164/88 Mechanical Ventilator 100 06/30/20 16:00 33 Mechanical Ventilator 100 06/30/20 16:00 127 33 164/88 (113) 93 06/30/20 16:00 120 06/30/20 15:30 125 34 142/83 (102) 95 06/30/20 15:27 121 33 100 06/30/20 15:00 124 32 143/76 (98) 96 06/30/20 15:00 33 143/76 Mechanical Ventilator 100 06/30/20 15:00 33 Mechanical Ventilator 100 06/30/20 14:30 122 34 153/82 (105) 95 06/30/20 14:00 33 161/80 Mechanical Ventilator 100 06/30/20 14:00 33 Mechanical Ventilator 100 06/30/20 14:00 120 34 161/80 (107) 94 I&O Intake and Output 06/30/20 07/01/20 19:00 07:00 Intake Total 1828.6667 ml 1427 ml Output Total 2005 ml 535 ml Balance -176.3333 ml 892 ml Intake Free Water 270 ml IV Total 953.6667 ml 672 ml Tube Feeding 605 ml 715 ml Other 40 ml Output Urine Total 1905 ml 490 ml Chest Tube Drainage Total 100 ml 45 ml Dressing: saturated Wound: other Drains: other Cardiovascular: RSR Respiratory: decreased breath sounds Abdomen: soft, non-tender, present bowel sounds Extremities: no tenderness, no cyanosis Laboratory Tests Test 07/01/20 06:11 White Blood Count 9.9 K/UL (4.8-10.8) Red Blood Count 3.67 M/UL (4.20-5.40) L Hemoglobin 11.1 G/DL (12.0-16.0) L Hematocrit 34.7 % (37.0-47.0) L Mean Corpuscular Volume 95 FL (80-99) Mean Corpuscular Hemoglobin 30.3 PG (27.0-31.0) Mean Corpuscular Hemoglobin Concent 32.0 G/DL (32.0-36.0) Red Cell Distribution Width 14.7 % (11.6-14.8) Platelet Count 100 K/UL (150-450) L Mean Platelet Volume 7.6 FL (6.5-10.1) Neutrophils (%) (Auto) % (45.0-75.0) Lymphocytes (%) (Auto) % (20.0-45.0) Monocytes (%) (Auto) % (1.0-10.0) Eosinophils (%) (Auto) % (0.0-3.0) Basophils (%) (Auto) % (0.0-2.0) Differential Total Cells Counted 100 Neutrophils % (Manual) 87 % (45-75) H Lymphocytes % (Manual) 9 % (20-45) L Monocytes % (Manual) 2 % (1-10) Eosinophils % (Manual) 2 % (0-3) Basophils % (Manual) 0 % (0-2) Band Neutrophils 0 % (0-8) Platelet Estimate Decreased L Platelet Morphology Normal Anisocytosis 1+ Sodium Level 148 MMOL/L (136-145) H Potassium Level 3.5 MMOL/L (3.5-5.1) Chloride Level 108 MMOL/L (98-107) H Carbon Dioxide Level 36 MMOL/L (21-32) H Anion Gap 4 mmol/L (5-15) L Blood Urea Nitrogen 21 mg/dL (7-18) H Creatinine 0.6 MG/DL (0.55-1.30) Estimat Glomerular Filtration Rate > 60 mL/min (>60) Glucose Level 144 MG/DL (74-106) H Calcium Level 7.6 MG/DL (8.5-10.1) L Phosphorus Level 2.0 MG/DL (2.5-4.9) L Magnesium Level 2.0 MG/DL (1.8-2.4) Total Bilirubin 0.6 MG/DL (0.2-1.0) Direct Bilirubin 0.3 MG/DL (0.0-0.3) Aspartate Amino Transf (AST/SGOT) 59 U/L (15-37) H Alanine Aminotransferase (ALT/SGPT) 60 U/L (12-78) Alkaline Phosphatase 128 U/L (46-116) H Total Protein 5.4 G/DL (6.4-8.2) L Albumin 1.4 G/DL (3.4-5.0) L Hepatitis A IgM Antibody Pending Hepatitis B Surface Antigen Pending Hepatitis B Core IgM Antibody Pending Hepatitis C Antibody Pending HIV (1&2) Antibody Rapid Pending Plan Problems: (1) Renal insufficiency (2) Elevated d-dimer (3) Dehydration (4) LEONARDO (acute kidney injury) (5) DMII (diabetes mellitus, type 2) (6) Hypoxia (7) Pneumonia due to COVID-19 virus (8) PNA (pneumonia) (9) Pneumothorax Assessment & Plan: Bilateral pneumothorax status post bilateral chest tubes. Still on significant vent support. leak performed. Continue weaning vent. Continue with chest tubes. Will monitor and manage chest tubes accordingly. Thank you for let me to participate in patient's care Continue bilateral chest tubes on suction the airleak is worse her peak pressures are high prognosis overall is guarded. Imaging reviewed Bilateral air leaks noted high pressures continue chest tube suction Elpidio Frazier Jul 01, 2020 13:31
--- NOTE | 2020-07-01 14:19 | NUR ---
CASE MANAGEMENT:REVIEW 07/01/20 SI: COVID PNEUMONIA ~ INTUBATED. PNTHX W/BILATERAL CHEST TUBE 99.6 120 31 152/94 97% ON VENT W/90% FIO2 H/H-11.1/34.7 PLT-100 IS: FENTANYL GTT VERSED GTT PRN IV CEFEPIME Q12 IV LASIX QD IVF@50/HR COREG NG Q12H IV PROTONIX Q12H LOVENOX SQ Q12H : ICU STATUS DCP: FROM HOME PLAN: SUPPORTIVE CARE BILATERAL CHEST TUBES TO SUCTION
--- NOTE | 2020-07-01 14:24 | NUR ---
INSURANCE CLINICALS/REVIEW FAXED TO [facility] [id number]
--- NOTE | 2020-07-01 15:27 | Cardiac Electrophysiology PN ---
Assessment/Plan Assessment/Plan 1. Respiratory failure likely due to COVID pneumonia. Intubated on 100% Fio2. Echocardiogram showed ejection fraction within normal range. 2. Bilateral pneumothoraces. S/P bilateral chest tube placement with around 10-20 cc drainage 3. Troponin elevation. Levels are low and flat could be demand ischemia vs Renal failure EKG shows sinus tachycardia at 110 beats per minute. 4. Hypernatremia with sodium of 155. Resolved 5. Volume overload. On Lasix 40 iv daily 6. COVID-19 positive and is in isolation, on dexamethasone, completed Remdesivir. 7. Hypertension, on Coreg 6.25 mg b.i.d. and Lasix DW RN Subjective Subjective Intubated in ICU on Fentanyl drip and Versed drip. Left chest tube no drainage and right chest tube with around 10-20 cc On 100% Fio2, PEEP 8 . Off pressors On iv Lasix Objective Last 24 Hour Vital Signs Date Time Temp Pulse Resp B/P (MAP) Pulse Ox O2 Delivery O2 Flow Rate FiO2 07/01/20 15:00 115 30 134/71 (92) 96 07/01/20 14:00 119 31 142/84 (103) 96 07/01/20 13:55 102 33 90 07/01/20 13:45 120 31 152/94 (113) 97 07/01/20 13:30 118 31 144/78 (100) 95 07/01/20 13:15 118 31 129/75 (93) 94 07/01/20 13:00 30 07/01/20 13:00 117 31 129/75 (93) 96 07/01/20 13:00 116 32 151/81 (104) 94 07/01/20 12:45 111 32 154/95 (114) 96 07/01/20 12:30 108 32 153/81 (105) 96 07/01/20 12:15 108 32 159/82 (107) 96 07/01/20 12:00 90 07/01/20 12:00 Mechanical Ventilator Mechanical Ventilator 07/01/20 12:00 108 33 163/76 (105) 95 07/01/20 12:00 33 Mechanical Ventilator 07/01/20 12:00 33 146/78 Mechanical Ventilator 07/01/20 12:00 107 07/01/20 12:00 108 33 95 07/01/20 11:45 107 32 159/76 (103) 95 07/01/20 11:30 107 33 143/73 (96) 94 07/01/20 11:15 107 32 146/75 (98) 95 07/01/20 11:15 108 33 90 07/01/20 11:00 105 31 143/79 (100) 98 07/01/20 11:00 32 Mechanical Ventilator 07/01/20 11:00 33 147/62 07/01/20 11:00 106 32 143/79 (100) 96 07/01/20 10:45 106 32 121/69 (86) 96 07/01/20 10:30 106 32 147/76 (99) 96 07/01/20 10:15 106 33 138/81 (100) 96 07/01/20 10:15 106 33 138/81 (100) 96 07/01/20 10:00 105 32 134/72 (92) 96 07/01/20 10:00 34 Mechanical Ventilator 07/01/20 10:00 33 156/67 07/01/20 10:00 105 32 134/72 (92) 96 07/01/20 09:54 107 33 90 07/01/20 09:45 107 31 145/74 (97) 97 07/01/20 09:30 108 32 121/80 (94) 96 07/01/20 09:15 109 33 142/69 (93) 96 07/01/20 09:00 108 33 126/60 (82) 96 07/01/20 09:00 33 Mechanical Ventilator 07/01/20 09:00 33 156/67 Mechanical Ventilator 07/01/20 09:00 105 143/70 07/01/20 09:00 109 33 127/66 (86) 96 07/01/20 08:00 30 Mechanical Ventilator 07/01/20 08:00 33 147/72 07/01/20 08:00 109 33 127/66 (86) 96 07/01/20 08:00 Mechanical Ventilator Mechanical Ventilator 07/01/20 08:00 109 33 134/69 (90) 95 07/01/20 08:00 107 07/01/20 08:00 90 07/01/20 07:45 110 34 90 07/01/20 07:45 110 33 130/70 (90) 95 07/01/20 07:30 110 33 119/66 (83) 94 07/01/20 07:15 110 33 120/61 (80) 95 07/01/20 07:00 109 33 134/69 (90) 95 07/01/20 07:00 109 33 134/69 (90) 95 07/01/20 07:00 33 Mechanical Ventilator 90 07/01/20 07:00 33 134/69 Mechanical Ventilator 90 07/01/20 06:45 108 33 135/66 (89) 95 07/01/20 06:30 108 33 134/69 (90) 95 07/01/20 06:15 106 33 128/66 (86) 96 07/01/20 06:00 105 33 127/66 (86) 95 07/01/20 06:00 33 Mechanical Ventilator 90 07/01/20 06:00 33 127/66 Mechanical Ventilator 90 07/01/20 06:00 105 33 127/66 (86) 95 07/01/20 05:00 32 Mechanical Ventilator 90 07/01/20 05:00 32 94/58 Mechanical Ventilator 90 07/01/20 05:00 104 32 94/58 (70) 92 07/01/20 04:00 99.6 107 32 96/54 (68) 96 07/01/20 04:00 Mechanical Ventilator Mechanical Ventilator 07/01/20 04:00 107 07/01/20 04:00 32 Mechanical Ventilator 90 07/01/20 04:00 32 96/54 Mechanical Ventilator 90 07/01/20 04:00 90 07/01/20 03:30 108 33 90 07/01/20 03:00 32 Mechanical Ventilator 90 07/01/20 03:00 32 138/67 Mechanical Ventilator 90 07/01/20 03:00 108 32 138/67 (90) 95 07/01/20 02:00 32 Mechanical Ventilator 90 07/01/20 02:00 32 134/77 Mechanical Ventilator 90 07/01/20 02:00 108 32 134/77 (96) 96 07/01/20 01:05 32 Mechanical Ventilator 90 07/01/20 01:03 32 147/79 Mechanical Ventilator 90 07/01/20 01:00 33 147/79 Mechanical Ventilator 90 07/01/20 01:00 33 Mechanical Ventilator 90 07/01/20 01:00 112 33 147/79 (101) 95 07/01/20 00:00 90 07/01/20 00:00 Mechanical Ventilator Mechanical Ventilator 07/01/20 00:00 110 07/01/20 00:00 98.9 110 33 138/68 (91) 96 07/01/20 00:00 20 102/58 Mechanical Ventilator 90 07/01/20 00:00 15 Mechanical Ventilator 90 06/30/20 23:31 106 34 90 06/30/20 23:00 20 106/69 Mechanical Ventilator 90 06/30/20 23:00 20 Mechanical Ventilator 90 06/30/20 23:00 106 32 120/62 (81) 95 06/30/20 22:00 103 32 121/66 (84) 86 06/30/20 22:00 17 106/62 Mechanical Ventilator 90 06/30/20 22:00 17 Mechanical Ventilator 90 06/30/20 21:00 32 108/58 Mechanical Ventilator 90 06/30/20 21:00 32 Mechanical Ventilator 90 06/30/20 21:00 107 32 108/58 (75) 86 06/30/20 20:32 109 119/65 06/30/20 20:30 111 32 119/65 (83) 99 06/30/20 20:00 90 06/30/20 20:00 99.3 110 32 118/76 (90) 100 06/30/20 20:00 32 118/76 Mechanical Ventilator 90 06/30/20 20:00 32 Mechanical Ventilator 90 06/30/20 20:00 Mechanical Ventilator Mechanical Ventilator 06/30/20 19:40 109 31 90 06/30/20 19:36 109 06/30/20 19:00 31 135/70 Mechanical Ventilator 100 06/30/20 19:00 31 Mechanical Ventilator 100 06/30/20 19:00 113 32 120/71 (87) 98 06/30/20 18:30 100.8 114 26 146/71 (96) 92 06/30/20 18:00 32 153/69 Mechanical Ventilator 100 06/30/20 18:00 33 Mechanical Ventilator 100 06/30/20 18:00 115 27 153/69 (97) 95 06/30/20 17:30 117 33 121/77 (92) 97 06/30/20 17:00 33 126/67 Mechanical Ventilator 100 06/30/20 17:00 33 Mechanical Ventilator 100 06/30/20 17:00 120 33 126/67 (86) 95 06/30/20 16:30 123 33 183/92 (122) 87 06/30/20 16:00 Mechanical Ventilator Mechanical Ventilator 06/30/20 16:00 90 06/30/20 16:00 33 164/88 Mechanical Ventilator 100 06/30/20 16:00 33 Mechanical Ventilator 100 06/30/20 16:00 127 33 164/88 (113) 93 06/30/20 16:00 120 06/30/20 15:30 125 34 142/83 (102) 95 06/30/20 15:27 121 33 100 Intake and Output 06/30/20 07/01/20 19:00 07:00 Intake Total 1828.6667 ml 1427 ml Output Total 2005 ml 535 ml Balance -176.3333 ml 892 ml Intake Free Water 270 ml IV Total 953.6667 ml 672 ml Tube Feeding 605 ml 715 ml Other 40 ml Output Urine Total 1905 ml 490 ml Chest Tube Drainage Total 100 ml 45 ml Laboratory Tests Test 07/01/20 06:11 White Blood Count 9.9 K/UL (4.8-10.8) Red Blood Count 3.67 M/UL (4.20-5.40) L Hemoglobin 11.1 G/DL (12.0-16.0) L Hematocrit 34.7 % (37.0-47.0) L Mean Corpuscular Volume 95 FL (80-99) Mean Corpuscular Hemoglobin 30.3 PG (27.0-31.0) Mean Corpuscular Hemoglobin Concent 32.0 G/DL (32.0-36.0) Red Cell Distribution Width 14.7 % (11.6-14.8) Platelet Count 100 K/UL (150-450) L Mean Platelet Volume 7.6 FL (6.5-10.1) Neutrophils (%) (Auto) % (45.0-75.0) Lymphocytes (%) (Auto) % (20.0-45.0) Monocytes (%) (Auto) % (1.0-10.0) Eosinophils (%) (Auto) % (0.0-3.0) Basophils (%) (Auto) % (0.0-2.0) Differential Total Cells Counted 100 Neutrophils % (Manual) 87 % (45-75) H Lymphocytes % (Manual) 9 % (20-45) L Monocytes % (Manual) 2 % (1-10) Eosinophils % (Manual) 2 % (0-3) Basophils % (Manual) 0 % (0-2) Band Neutrophils 0 % (0-8) Platelet Estimate Decreased L Platelet Morphology Normal Anisocytosis 1+ Sodium Level 148 MMOL/L (136-145) H Potassium Level 3.5 MMOL/L (3.5-5.1) Chloride Level 108 MMOL/L (98-107) H Carbon Dioxide Level 36 MMOL/L (21-32) H Anion Gap 4 mmol/L (5-15) L Blood Urea Nitrogen 21 mg/dL (7-18) H Creatinine 0.6 MG/DL (0.55-1.30) Estimat Glomerular Filtration Rate > 60 mL/min (>60) Glucose Level 144 MG/DL (74-106) H Calcium Level 7.6 MG/DL (8.5-10.1) L Phosphorus Level 2.0 MG/DL (2.5-4.9) L Magnesium Level 2.0 MG/DL (1.8-2.4) Total Bilirubin 0.6 MG/DL (0.2-1.0) Direct Bilirubin 0.3 MG/DL (0.0-0.3) Aspartate Amino Transf (AST/SGOT) 59 U/L (15-37) H Alanine Aminotransferase (ALT/SGPT) 60 U/L (12-78) Alkaline Phosphatase 128 U/L (46-116) H Total Protein 5.4 G/DL (6.4-8.2) L Albumin 1.4 G/DL (3.4-5.0) L Hepatitis A IgM Antibody Pending Hepatitis B Surface Antigen Pending Hepatitis B Core IgM Antibody Pending Hepatitis C Antibody Pending HIV (1&2) Antibody Rapid Pending Objective HEAD AND NECK: No JVD.Orally intubated with SQ emphysema LUNGS: Coarse rhonchi bilaterally. Bilateral chest tubes in. CARDIOVASCULAR: Regular S1 and S2 and tachycardic. ABDOMEN: Soft. EXTREMITIES: No pitting edema. Maxwell Carreon MD Jul 01, 2020 15:27
--- NOTE | 2020-07-01 18:00 | NUR ---
After felipe care pt's O2 saturation decreased. Endorsed to extension service specialist in charge and RT; stat Xray results showed repositioning of chest tube. MD her contacted by NORMAN Brito.
--- NOTE | 2020-07-01 18:10 | Diagnostic Imaging Report ---
EXAM: XR Chest, 1 View CLINICAL HISTORY: ABN CHST TECHNIQUE: Frontal view of the chest. COMPARISON: Chest radiograph on 06/29/2020 FINDINGS: Hardware: Endotracheal tube terminates in the region of the mid thoracic trachea, approximately 2.7 cm above the melyssa. An enteric tube courses past the diaphragm and out of the [id number]. Left-sided chest tube. Repositioning of the right-sided chest tube which is now along the lateral right lower lung. Lungs/pleura: Similar extensive opacities throughout the lungs. Similar small bilateral pneumothoraces. Heart/mediastinum: Normal. No cardiomegaly. Soft tissues: Similar extensive subcutaneous emphysema. Bones: No acute fracture. Upper abdomen: Normal. IMPRESSION: 1. Endotracheal tube terminates in the region of the mid thoracic trachea, approximately 2.7 cm above the melyssa. An enteric tube courses past the diaphragm and out of the [id number]. Left-sided chest tube. Repositioning of the right-sided chest tube which is now along the lateral right lower lung. 2. Similar extensive opacities throughout the lungs. Similar small bilateral pneumothoraces.
--- NOTE | 2020-07-01 19:30 | NUR ---
Report received from NORMAN Lyon and this RN assumed care of patient. Patient O2 sats low in 85-89% range. XRay results showed repositioning of R Chest Tube. Called Dr. Collazo with results. Per Physician, CT is still in the lung, no intervention required. Updated on O2 sat and requested ABG on patient. Physician requested this RN contact street railway line installer for this need. Day Charge stated to order the ABG under [facility] and have RT draw. If gas requires intervention, then call [facility]. ABG reported back abnormal, but not critical. Patient FiO2 increased from 90% to 100% on vent.
--- NOTE | 2020-07-01 19:42 | General Progress Note ---
Subjective ROS Limited/Unobtainable: Yes Allergies: Coded Allergies: No Known Allergies (Unverified , 06/17/20) Objective Last 24 Hour Vital Signs Date Time Temp Pulse Resp B/P (MAP) Pulse Ox O2 Delivery O2 Flow Rate FiO2 07/01/20 18:00 34 07/01/20 18:00 112 34 135/69 (91) 83 07/01/20 17:00 137 36 171/97 (121) 96 07/01/20 17:00 30 07/01/20 16:00 90 07/01/20 16:00 109 07/01/20 16:00 33 07/01/20 16:00 100.9 108 26 146/77 (100) 96 07/01/20 16:00 Mechanical Ventilator Mechanical Ventilator 07/01/20 15:41 110 33 90 07/01/20 15:00 34 07/01/20 15:00 115 30 134/71 (92) 96 07/01/20 14:00 119 31 142/84 (103) 96 07/01/20 14:00 33 07/01/20 13:55 102 33 90 07/01/20 13:45 120 31 152/94 (113) 97 07/01/20 13:30 118 31 144/78 (100) 95 07/01/20 13:15 118 31 129/75 (93) 94 07/01/20 13:00 30 07/01/20 13:00 117 31 129/75 (93) 96 07/01/20 13:00 116 32 151/81 (104) 94 07/01/20 12:45 111 32 154/95 (114) 96 07/01/20 12:30 108 32 153/81 (105) 96 07/01/20 12:15 108 32 159/82 (107) 96 07/01/20 12:00 90 07/01/20 12:00 Mechanical Ventilator Mechanical Ventilator 07/01/20 12:00 108 33 163/76 (105) 95 07/01/20 12:00 33 Mechanical Ventilator 07/01/20 12:00 33 146/78 Mechanical Ventilator 07/01/20 12:00 107 07/01/20 12:00 108 33 95 07/01/20 11:45 107 32 159/76 (103) 95 07/01/20 11:30 107 33 143/73 (96) 94 07/01/20 11:15 107 32 146/75 (98) 95 07/01/20 11:15 108 33 90 07/01/20 11:00 105 31 143/79 (100) 98 07/01/20 11:00 32 Mechanical Ventilator 07/01/20 11:00 33 147/62 07/01/20 11:00 106 32 143/79 (100) 96 07/01/20 10:45 106 32 121/69 (86) 96 07/01/20 10:30 106 32 147/76 (99) 96 07/01/20 10:15 106 33 138/81 (100) 96 07/01/20 10:15 106 33 138/81 (100) 96 07/01/20 10:00 105 32 134/72 (92) 96 07/01/20 10:00 34 Mechanical Ventilator 07/01/20 10:00 33 156/67 07/01/20 10:00 105 32 134/72 (92) 96 07/01/20 09:54 107 33 90 07/01/20 09:45 107 31 145/74 (97) 97 07/01/20 09:30 108 32 121/80 (94) 96 07/01/20 09:15 109 33 142/69 (93) 96 07/01/20 09:00 108 33 126/60 (82) 96 07/01/20 09:00 33 Mechanical Ventilator 07/01/20 09:00 33 156/67 Mechanical Ventilator 07/01/20 09:00 105 143/70 07/01/20 09:00 109 33 127/66 (86) 96 07/01/20 08:00 30 Mechanical Ventilator 07/01/20 08:00 33 147/72 07/01/20 08:00 109 33 127/66 (86) 96 07/01/20 08:00 Mechanical Ventilator Mechanical Ventilator 07/01/20 08:00 109 33 134/69 (90) 95 07/01/20 08:00 107 07/01/20 08:00 90 07/01/20 07:45 110 34 90 07/01/20 07:45 110 33 130/70 (90) 95 07/01/20 07:30 110 33 119/66 (83) 94 07/01/20 07:15 110 33 120/61 (80) 95 07/01/20 07:00 109 33 134/69 (90) 95 07/01/20 07:00 109 33 134/69 (90) 95 07/01/20 07:00 33 Mechanical Ventilator 90 07/01/20 07:00 33 134/69 Mechanical Ventilator 90 07/01/20 06:45 108 33 135/66 (89) 95 07/01/20 06:30 108 33 134/69 (90) 95 07/01/20 06:15 106 33 128/66 (86) 96 07/01/20 06:00 105 33 127/66 (86) 95 07/01/20 06:00 33 Mechanical Ventilator 90 07/01/20 06:00 33 127/66 Mechanical Ventilator 90 07/01/20 06:00 105 33 127/66 (86) 95 07/01/20 05:00 32 Mechanical Ventilator 90 07/01/20 05:00 32 94/58 Mechanical Ventilator 90 07/01/20 05:00 104 32 94/58 (70) 92 07/01/20 04:00 99.6 107 32 96/54 (68) 96 07/01/20 04:00 Mechanical Ventilator Mechanical Ventilator 07/01/20 04:00 107 07/01/20 04:00 32 Mechanical Ventilator 90 07/01/20 04:00 32 96/54 Mechanical Ventilator 90 07/01/20 04:00 90 07/01/20 03:30 108 33 90 07/01/20 03:00 32 Mechanical Ventilator 90 07/01/20 03:00 32 138/67 Mechanical Ventilator 90 07/01/20 03:00 108 32 138/67 (90) 95 07/01/20 02:00 32 Mechanical Ventilator 90 07/01/20 02:00 32 134/77 Mechanical Ventilator 90 07/01/20 02:00 108 32 134/77 (96) 96 07/01/20 01:05 32 Mechanical Ventilator 90 07/01/20 01:03 32 147/79 Mechanical Ventilator 90 07/01/20 01:00 33 147/79 Mechanical Ventilator 90 07/01/20 01:00 33 Mechanical Ventilator 90 07/01/20 01:00 112 33 147/79 (101) 95 07/01/20 00:00 90 07/01/20 00:00 Mechanical Ventilator Mechanical Ventilator 07/01/20 00:00 110 07/01/20 00:00 98.9 110 33 138/68 (91) 96 07/01/20 00:00 20 102/58 Mechanical Ventilator 90 07/01/20 00:00 15 Mechanical Ventilator 90 06/30/20 23:31 106 34 90 06/30/20 23:00 20 106/69 Mechanical Ventilator 90 06/30/20 23:00 20 Mechanical Ventilator 90 06/30/20 23:00 106 32 120/62 (81) 95 06/30/20 22:00 103 32 121/66 (84) 86 06/30/20 22:00 17 106/62 Mechanical Ventilator 90 06/30/20 22:00 17 Mechanical Ventilator 90 06/30/20 21:00 32 108/58 Mechanical Ventilator 90 06/30/20 21:00 32 Mechanical Ventilator 90 06/30/20 21:00 107 32 108/58 (75) 86 06/30/20 20:32 109 119/65 06/30/20 20:30 111 32 119/65 (83) 99 06/30/20 20:00 90 06/30/20 20:00 99.3 110 32 118/76 (90) 100 06/30/20 20:00 32 118/76 Mechanical Ventilator 90 06/30/20 20:00 32 Mechanical Ventilator 90 06/30/20 20:00 Mechanical Ventilator Mechanical Ventilator Intake and Output 06/30/20 07/01/20 19:00 07:00 Intake Total 1828.6667 ml 1427 ml Output Total 2005 ml 535 ml Balance -176.3333 ml 892 ml Intake Free Water 270 ml IV Total 953.6667 ml 672 ml Tube Feeding 605 ml 715 ml Other 40 ml Output Urine Total 1905 ml 490 ml Chest Tube Drainage Total 100 ml 45 ml Laboratory Tests 07/01/20 06:11: White Blood Count 9.9, Red Blood Count 3.67L, Hemoglobin 11.1L, Hematocrit 34.7L , Mean Corpuscular Volume 95, Mean Corpuscular Hemoglobin 30.3, Mean Corpuscular Hemoglobin Concent 32.0, Red Cell Distribution Width 14.7, Platelet Count 100L, Mean Platelet Volume 7.6, Neutrophils (%) (Auto) , Lymphocytes (%) (Auto) , Monocytes (%) (Auto) , Eosinophils (%) (Auto) , Basophils (%) (Auto) , Differential Total Cells Counted 100, Neutrophils % (Manual) 87H, Lymphocytes % (Manual) 9L, Monocytes % (Manual) 2, Eosinophils % (Manual) 2, Basophils % (Manual) 0, Band Neutrophils 0, Platelet Estimate DecreasedL, Platelet Morphology Normal, Anisocytosis 1+, Sodium Level 148H, Potassium Level 3.5, Chloride Level 108H, Carbon Dioxide Level 36H, Anion Gap 4L, Blood Urea Nitrogen 21H, Creatinine 0.6, Estimat Glomerular Filtration Rate > 60, Glucose Level 144H , Calcium Level 7.6L, Phosphorus Level 2.0L, Magnesium Level 2.0, Total Bilirubin 0.6, Direct Bilirubin 0.3, Aspartate Amino Transf (AST/SGOT) 59H, Alanine Aminotransferase (ALT/SGPT) 60, Alkaline Phosphatase 128H, Total Protein 5.4L, Albumin 1.4L, Hepatitis A IgM Antibody [Pending], Hepatitis B Surface Antigen [Pending], Hepatitis B Core IgM Antibody [Pending], Hepatitis C Antibody [Pending], HIV (1&2) Antibody Rapid [Pending] Height (Feet): 5 Height (Inches): 2.00 Weight (Pounds): 138 Assessment/Plan Problem List: (1) Elevated d-dimer ICD Codes: R79.89 - Other specified abnormal findings of blood chemistry SNOMED: 974195911 (2) Renal insufficiency ICD Codes: N28.9 - Disorder of kidney and ureter, unspecified SNOMED: 999633690, 564904658 (3) PNA (pneumonia) ICD Codes: J18.9 - Pneumonia, unspecified organism SNOMED: 300753844 (4) Dehydration ICD Codes: E86.0 - Dehydration SNOMED: 17040010 (5) LEONARDO (acute kidney injury) ICD Codes: N17.9 - Acute kidney failure, unspecified SNOMED: 3595154, 99702075 (6) Hypoxia ICD Codes: R09.02 - Hypoxemia; J12.82 - Pneumonia due to coronavirus disease 2019 SNOMED: 296358723 (7) Pneumonia due to COVID-19 virus ICD Codes: U07.1 - COVID-19; J12.82 - Pneumonia due to coronavirus disease 2019 SNOMED: 765556296996160956 (8) DMII (diabetes mellitus, type 2) ICD Codes: E11.9 - Type 2 diabetes mellitus without complications SNOMED: 38321281 Status: progressing, unchanged Assessment/Plan: covid + diarrhea lethargic poor prognosis intubated niddm azotemia not on pressor p Vidya Clayton MD Jul 01, 2020 19:42
--- NOTE | 2020-07-01 20:00 | NUR ---
This RN into patient room to assess patient. Found L CT leaking around taped site where CT connects to suction. NORMAN James into patient room as well due to large BM and assisting with clean-up. Jacob and This RN took down the tape and noticed the chest tube had a slice in it where a prior provider had tried to make the CT opening large enough to connect the large 5 in 1 connector to the suction. However, it was not working and leaking fluid out and not sealed. Due to the unit not having a small 5 in 1 in stock, a 6 in 1 was utilized and fit snugly into the CT opening and also into the original 5 in 1 that connected into the suction tubing. Appropriate seal achieved. Re-taped the parts together to ensure they do not come disconnected and to enforce the seal. Immediately upon sealing the chest tube the patients O2 sats increased back into 90's and sustained. Patient cleaned up, linen change, CHG bath completed, and repositioned onto Right side. Patient stable, will continue to monitor.
[2020-07-01] MEDS: Dyna-Hex 2% Top Sol 2oz TOPIC SCH (20:10)
--- NOTE | 2020-07-01 22:00 | NUR ---
Patient repositioned, chest tubes assessed, oral care provided, VSS, underpad clean and dry, will continue to monitor.
[2020-07-01 23:00] LABS: APPEARANCE,URINE CLEAR; BILIRUBIN, URINE 1+ (NEGATIVE); GLUCOSE, URINE (UA) NEGATIVE (NEGATIVE); KETONES,URINE 1+ (NEGATIVE); LEUKOCYTE ESTERASE ,URINE 1+ (NEGATIVE); NITRITE,URINE NEGATIVE (NEGATIVE); PH,URINE 6 (4.5-8.0); PROTEIN,URINE 2+ (NEGATIVE); UROBILINOGEN,URINE 4 MG/DL (0.0-1.0)
[2020-07-02] VITALS (93 sets, daily range): BP systolic 87–167; BP diastolic 13–87
--- NOTE | 2020-07-02 | NUR ---
Patient repositioned, chest tubes assessed, oral care provided, VSS, underpad clean and dry, will continue to monitor.
[2020-07-02] MEDS: NovoLOG Insulin Flexpen SUBQ SCH ×4 (00:40→18:00)
[2020-07-02] MEDS: Versed 50mg/NS 100ml 100 ML IV PRN ×2 (00:40→16:12)
[2020-07-02 00:50] LABS: COLOR,URINE YELLOW
--- NOTE | 2020-07-02 02:00 | NUR ---
Left chest tube water chamber not filled to line. Refilled chest tube container to appropriate level using sterile water. Patient repositioned, chest tubes assessed, oral care provided, VSS, underpad clean and dry, will continue to monitor.
--- NOTE | 2020-07-02 04:00 | NUR ---
New TF hung, new tubing hung and dated, new suction and piston/irrigation kit changed. Patient repositioned, chest tubes assessed, oral care provided, VSS, underpad clean and dry, will continue to monitor.
[2020-07-02 05:49] LABS: HEMATOCRIT 31.5 % (37.0-47.0); HEMOGLOBIN 10.1 G/DL (12.0-16.0); MEAN CORPUSCULAR VOLUME 95 FL (80-99); PLATELET COUNT 91 K/UL (150-450); RED BLOOD COUNT 3.32 M/UL (4.20-5.40); RED CELL DISTRIBUTION WIDTH 14.7 % (11.6-14.8); WHITE BLOOD COUNT 7.9 K/UL (4.8-10.8)
[2020-07-02 05:54] LABS: ALANINE AMINOTRANSFERASE 56 U/L (12-78); ALBUMIN 1.2 G/DL (3.4-5.0); ALBUMIN/GLOBULIN RATIO 0.3 (1.0-2.7); ALKALINE PHOSPHATASE 82 U/L (46-116); ANION GAP 2 mmol/L (5-15); ASPARTATE AMINO TRANSFERASE 54 U/L (15-37); BILIRUBIN,TOTAL 0.6 MG/DL (0.2-1.0); BLOOD UREA NITROGEN 24 mg/dL (7-18); CALCIUM 7.3 MG/DL (8.5-10.1); CARBON DIOXIDE 36 MMOL/L (21-32); CHLORIDE 112 MMOL/L (98-107); CREATININE 0.4 MG/DL (0.55-1.30); POTASSIUM 3.5 MMOL/L (3.5-5.1); SODIUM 150 MMOL/L (136-145)
[2020-07-02 05:56] LABS: PHOSPHORUS 2.4 MG/DL (2.5-4.9)
--- NOTE | 2020-07-02 06:00 | NUR ---
This RN noticed that when patient is turned to Left side, pt becomes slightly hypotensive despite where BP cuff is placed. When pt is supine or turned to right this does not occur. Patient repositioned, oral care provided, underpad clean and dry, pt weighed. VSS. Will continue to monitor.
--- NOTE | 2020-07-02 06:37 | Hematology/Onc Progress Note ---
Assessment/Plan Assessment/Plan Assessment and recs # Leukocytosis with Pneumonia due to COVID-19 virus -> wbc trend 15-->11-->10->17-->18->11->21 --> ABX as per id ctx-->off --> imaging does show pna --> anticoag recommended --> on remdesivir # Anemia of chronic disease --> hgb 12->10-->9-->11-->10.8->10 -> transfuse prn --> r/o hemolysis # Elevated ddimer due to covid --> duplex legs -> LOVENOX sq # Thrombocytopenia due to likely plt destruction, Covid19++ with Hypoxia -> steriods, abx per id --> plt 117-->121-->124->77 --> smear is noted # Renal insufficiency -> per renal care # Sepsis due to above --> abx, fluid resuscitation # Dvt ppx lovenox sq Appreciate consultation and mehran RN Subjective HEENT: Denies: no symptoms, eye pain, blurred vision, tearing, double vision, ear pain, ear discharge, nose pain, nose congestion, throat pain, throat swelling, mouth pain, mouth swelling, other Cardiovascular: Denies: no symptoms, chest pain, edema, irregular heart rate, lightheadedness, palpitations, syncope, other Respiratory: Denies: no symptoms, cough, shortness of breath, SOB with excertion, SOB at rest, sputum, wheezing, other Allergies: Coded Allergies: No Known Allergies (Unverified , 06/17/20) All Systems: reviewed and negative except above Subjective 06/19 sleeping, comfortable, on bipap, meds have been reviewed 06/21 on bipap, labs have been reviewed, no major events 06/22 bipap labs reviewed, meds noted, no bleeding 06/23 bipap labs noted, no bleeding, meds reviewed, mehran woodward 06/24 on vent, labs reviewed, meds reviewed 06/25 on vent, with ctx as abx, labs noted, no bleeding 06/26 vent, with ogt, with helms, labs noted, no bleeding plts lower 06/28 labs are pending, on vent, helms intract, no new changes 06/29 icu, on vent, hgb 11, plt 124, meds noted, on ctx 06/30 icu, edematous, is on vent, labs reviewed, abx 07/01 icu, on vent, labs noted, no bleeding, plt 77, labs ordered 07/02 icu, nv, meds noted, no bleeding, plt 91, hgb 9 Objective Objective Current Medications Medications (Trade) Dose Ordered Sig/Maya Route PRN Reason Start Time Stop Time Status Last Admin Dose Admin Acetaminophen (Tylenol) 500 mg Q4H PRN ORAL Mild Pain (Pain Scale 1-3) 06/18/20 00:15 07/18/20 00:14 06/24/20 17:51 Acetaminophen (Tylenol) 500 mg Q4H PRN ORAL Temp >100.5 06/18/20 00:15 07/18/20 00:14 06/29/20 20:01 Carvedilol (Coreg) 6.25 mg EVERY 12 HOURS ORAL 06/22/20 21:00 07/22/20 20:59 07/01/20 09:00 Cefepime HCl 1 gm/ Dextrose 55 ml @ 110 mls/hr EVERY 12 HOURS IVPB 07/01/20 11:45 07/08/20 11:44 07/01/20 20:10 Chlorhexidine Gluconate (Sissy-Hex 2%) 1 applic DAILY@2000 TOPIC 06/28/20 20:00 09/26/20 19:59 07/01/20 20:10 Dextrose (Dextrose 50%) 25 ml Q30M PRN IV Hypoglycemia 06/18/20 14:15 09/16/20 14:14 Dextrose (Dextrose 50%) 50 ml Q30M PRN IV Hypoglycemia 06/18/20 14:15 09/16/20 14:14 Docusate Sodium (Colace) 100 mg THREE TIMES A DAY NG 06/28/20 13:00 07/28/20 12:59 07/01/20 18:00 Fentanyl Citrate 1000 mcg/Sodium Chloride 100 ml @ 1 mls/hr Q24H IV 07/01/20 22:30 07/03/20 22:29 07/02/20 06:10 Furosemide (Lasix) 40 mg DAILY IV 06/28/20 17:45 07/28/20 16:59 07/01/20 09:00 Haloperidol Lactate (Haldol) 10 mg Q6H PRN IM Agitation 06/23/20 11:30 08/07/20 11:29 06/23/20 11:34 Heparin Sodium/ Sodium Chloride (Heparin 1000 units/500ml Premix) 1,000 unit NEEDED PRN IV PICC LINE PLACEMENT 06/28/20 20:00 Insulin Aspart (NovoLOG) while NPO Q6HR SUBQ 06/18/20 18:00 09/16/20 17:59 07/02/20 00:40 Midazolam HCl 100 ml @ 0 mls/hr Q24H PRN IV To Patient Comfort 07/02/20 05:15 07/04/20 05:14 Pantoprazole (Protonix) 40 mg EVERY 12 HOURS IVP 06/18/20 21:00 07/18/20 20:59 07/01/20 20:10 Sodium Chloride 1,000 ml @ 50 mls/hr Q20H IV 06/26/20 08:00 07/26/20 07:59 07/02/20 02:22 Vitamin D (Vitamin D) 2,000 unit DAILY GT 06/29/20 10:30 07/29/20 10:29 07/01/20 09:00 Last 24 Hour Vital Signs Date Time Temp Pulse Resp B/P (MAP) Pulse Ox O2 Delivery O2 Flow Rate FiO2 07/02/20 06:10 26 118/60 Mechanical Ventilator 100 07/02/20 05:00 76 26 110/50 (70) 99 07/02/20 05:00 26 Mechanical Ventilator 100 07/02/20 05:00 26 110/60 Mechanical Ventilator 100 07/02/20 04:45 78 27 97/48 (64) 98 07/02/20 04:30 79 27 96/50 (65) 98 07/02/20 04:15 81 27 100/51 (67) 99 07/02/20 04:00 98.3 83 28 100/52 (68) 98 07/02/20 04:00 Mechanical Ventilator Mechanical Ventilator 07/02/20 04:00 28 Mechanical Ventilator 100 07/02/20 04:00 28 95/52 Mechanical Ventilator 100 07/02/20 04:00 100 07/02/20 03:45 84 27 95/52 (66) 97 07/02/20 03:30 87 26 95/52 (66) 99 07/02/20 03:15 89 26 95/56 (69) 98 07/02/20 03:03 90 07/02/20 03:00 99.5 90 28 87/52 (64) 98 07/02/20 03:00 28 Mechanical Ventilator 100 07/02/20 03:00 27 87/52 Mechanical Ventilator 100 07/02/20 02:45 95 28 110/57 (74) 100 07/02/20 02:30 95 28 97/57 (70) 95 07/02/20 02:15 94 28 102/61 (75) 93 07/02/20 02:00 94 28 113/53 (73) 92 07/02/20 02:00 28 Mechanical Ventilator 100 07/02/20 02:00 30 87/52 Mechanical Ventilator 100 07/02/20 01:45 92 28 106/59 (75) 89 07/02/20 01:40 89 31 90 07/02/20 01:30 91 28 107/59 (75) 90 07/02/20 01:15 88 27 107/57 (74) 93 07/02/20 01:09 32 107/57 Mechanical Ventilator 100 07/02/20 01:00 87 30 139/76 (97) 89 07/02/20 01:00 27 Mechanical Ventilator 100 07/02/20 00:45 89 29 118/68 (85) 94 07/02/20 00:40 30 Mechanical Ventilator 100 07/02/20 00:30 89 30 128/13 (51) 95 07/02/20 00:15 89 30 127/59 (81) 95 07/02/20 00:00 Mechanical Ventilator Mechanical Ventilator 07/02/20 00:00 30 Mechanical Ventilator 100 07/02/20 00:00 32 127/59 Mechanical Ventilator 100 07/02/20 00:00 100 07/02/20 00:00 98.4 89 29 113/64 (80) 96 07/01/20 23:45 90 30 164/63 (96) 93 07/01/20 23:30 86 29 143/62 (89) 94 07/01/20 23:24 87 07/01/20 23:15 84 29 129/84 (99) 93 07/01/20 23:00 83 30 113/79 (90) 94 07/01/20 23:00 30 Mechanical Ventilator 100 07/01/20 23:00 30 137/57 Mechanical Ventilator 100 07/01/20 22:45 85 29 140/67 (91) 93 07/01/20 22:30 87 31 144/66 (92) 83 07/01/20 22:15 85 29 135/74 (94) 81 07/01/20 22:00 30 Mechanical Ventilator 100 07/01/20 22:00 30 88/64 Mechanical Ventilator 100 07/01/20 22:00 87 31 137/57 (83) 93 07/01/20 21:45 89 31 109/73 (85) 94 07/01/20 21:30 89 30 135/57 (83) 94 07/01/20 21:15 91 30 100/57 (71) 95 07/01/20 21:00 98.9 95 30 88/64 (72) 89 07/01/20 21:00 30 Mechanical Ventilator 100 07/01/20 21:00 30 88/64 Mechanical Ventilator 100 07/01/20 21:00 90 98/57 07/01/20 20:45 93 24 116/64 (81) 84 07/01/20 20:30 96 27 143/66 (91) 88 07/01/20 20:15 102 30 122/73 (89) 87 07/01/20 20:00 Mechanical Ventilator Mechanical Ventilator 07/01/20 20:00 100 31 130/73 (92) 86 07/01/20 20:00 100 07/01/20 20:00 32 Mechanical Ventilator 100 07/01/20 20:00 32 90/61 Mechanical Ventilator 100 07/01/20 19:45 101 30 131/84 (100) 89 07/01/20 19:36 100 07/01/20 19:30 103 31 108/82 (91) 92 07/01/20 19:15 105 32 90/61 (71) 88 07/01/20 19:00 101 30 90 07/01/20 19:00 98.5 106 33 90/59 (69) 89 07/01/20 19:00 32 Mechanical Ventilator 100 07/01/20 19:00 30 130/73 Mechanical Ventilator 100 07/01/20 18:00 34 07/01/20 18:00 112 34 135/69 (91) 83 07/01/20 17:00 137 36 171/97 (121) 96 07/01/20 17:00 30 07/01/20 16:00 90 07/01/20 16:00 109 07/01/20 16:00 33 07/01/20 16:00 100.9 108 26 146/77 (100) 96 07/01/20 16:00 Mechanical Ventilator Mechanical Ventilator 07/01/20 15:41 110 33 90 07/01/20 15:00 34 07/01/20 15:00 115 30 134/71 (92) 96 07/01/20 14:00 119 31 142/84 (103) 96 07/01/20 14:00 33 07/01/20 13:55 102 33 90 07/01/20 13:45 120 31 152/94 (113) 97 07/01/20 13:30 118 31 144/78 (100) 95 07/01/20 13:15 118 31 129/75 (93) 94 07/01/20 13:00 30 07/01/20 13:00 117 31 129/75 (93) 96 07/01/20 13:00 116 32 151/81 (104) 94 07/01/20 12:45 111 32 154/95 (114) 96 07/01/20 12:30 108 32 153/81 (105) 96 07/01/20 12:15 108 32 159/82 (107) 96 07/01/20 12:00 90 07/01/20 12:00 Mechanical Ventilator Mechanical Ventilator 07/01/20 12:00 108 33 163/76 (105) 95 07/01/20 12:00 33 Mechanical Ventilator 07/01/20 12:00 33 146/78 Mechanical Ventilator 07/01/20 12:00 107 07/01/20 12:00 108 33 95 07/01/20 11:45 107 32 159/76 (103) 95 07/01/20 11:30 107 33 143/73 (96) 94 07/01/20 11:15 107 32 146/75 (98) 95 07/01/20 11:15 108 33 90 07/01/20 11:00 105 31 143/79 (100) 98 07/01/20 11:00 32 Mechanical Ventilator 07/01/20 11:00 33 147/62 07/01/20 11:00 106 32 143/79 (100) 96 07/01/20 10:45 106 32 121/69 (86) 96 07/01/20 10:30 106 32 147/76 (99) 96 07/01/20 10:15 106 33 138/81 (100) 96 07/01/20 10:15 106 33 138/81 (100) 96 07/01/20 10:00 105 32 134/72 (92) 96 07/01/20 10:00 34 Mechanical Ventilator 07/01/20 10:00 33 156/67 07/01/20 10:00 105 32 134/72 (92) 96 07/01/20 09:54 107 33 90 07/01/20 09:45 107 31 145/74 (97) 97 07/01/20 09:30 108 32 121/80 (94) 96 07/01/20 09:15 109 33 142/69 (93) 96 07/01/20 09:00 108 33 126/60 (82) 96 07/01/20 09:00 33 Mechanical Ventilator 07/01/20 09:00 33 156/67 Mechanical Ventilator 07/01/20 09:00 105 143/70 07/01/20 09:00 109 33 127/66 (86) 96 07/01/20 08:00 30 Mechanical Ventilator 07/01/20 08:00 33 147/72 07/01/20 08:00 109 33 127/66 (86) 96 07/01/20 08:00 Mechanical Ventilator Mechanical Ventilator 07/01/20 08:00 109 33 134/69 (90) 95 07/01/20 08:00 107 07/01/20 08:00 90 07/01/20 07:45 110 34 90 07/01/20 07:45 110 33 130/70 (90) 95 07/01/20 07:30 110 33 119/66 (83) 94 07/01/20 07:15 110 33 120/61 (80) 95 07/01/20 07:00 109 33 134/69 (90) 95 07/01/20 07:00 109 33 134/69 (90) 95 07/01/20 07:00 33 Mechanical Ventilator 90 07/01/20 07:00 33 134/69 Mechanical Ventilator 90 07/01/20 06:45 108 33 135/66 (89) 95 07/01/20 06:30 108 33 134/69 (90) 95 07/01/20 06:15 106 33 128/66 (86) 96 07/01/20 06:00 105 33 127/66 (86) 95 07/01/20 06:00 33 Mechanical Ventilator 90 07/01/20 06:00 33 127/66 Mechanical Ventilator 90 07/01/20 06:00 105 33 127/66 (86) 95 07/01/20 05:00 32 Mechanical Ventilator 90 07/01/20 05:00 32 94/58 Mechanical Ventilator 90 07/01/20 05:00 104 32 94/58 (70) 92 07/01/20 04:00 99.6 107 32 96/54 (68) 96 07/01/20 04:00 Mechanical Ventilator Mechanical Ventilator 07/01/20 04:00 107 07/01/20 04:00 32 Mechanical Ventilator 90 07/01/20 04:00 32 96/54 Mechanical Ventilator 90 07/01/20 04:00 90 07/01/20 03:30 108 33 90 07/01/20 03:00 32 Mechanical Ventilator 90 07/01/20 03:00 32 138/67 Mechanical Ventilator 90 07/01/20 03:00 108 32 138/67 (90) 95 07/01/20 02:00 32 Mechanical Ventilator 90 07/01/20 02:00 32 134/77 Mechanical Ventilator 90 07/01/20 02:00 108 32 134/77 (96) 96 07/01/20 01:05 32 Mechanical Ventilator 90 07/01/20 01:03 32 147/79 Mechanical Ventilator 90 07/01/20 01:00 33 147/79 Mechanical Ventilator 90 07/01/20 01:00 33 Mechanical Ventilator 90 07/01/20 01:00 112 33 147/79 (101) 95 07/01/20 00:00 90 07/01/20 00:00 Mechanical Ventilator Mechanical Ventilator 07/01/20 00:00 110 07/01/20 00:00 98.9 110 33 138/68 (91) 96 07/01/20 00:00 20 102/58 Mechanical Ventilator 90 07/01/20 00:00 15 Mechanical Ventilator 90 06/30/20 23:31 106 34 90 06/30/20 23:00 20 106/69 Mechanical Ventilator 90 06/30/20 23:00 20 Mechanical Ventilator 90 06/30/20 23:00 106 32 120/62 (81) 95 06/30/20 22:00 103 32 121/66 (84) 86 06/30/20 22:00 17 106/62 Mechanical Ventilator 90 06/30/20 22:00 17 Mechanical Ventilator 90 06/30/20 21:00 32 108/58 Mechanical Ventilator 90 06/30/20 21:00 32 Mechanical Ventilator 90 06/30/20 21:00 107 32 108/58 (75) 86 06/30/20 20:32 109 119/65 06/30/20 20:30 111 32 119/65 (83) 99 06/30/20 20:00 90 06/30/20 20:00 99.3 110 32 118/76 (90) 100 06/30/20 20:00 32 118/76 Mechanical Ventilator 90 06/30/20 20:00 32 Mechanical Ventilator 90 06/30/20 20:00 Mechanical Ventilator Mechanical Ventilator 06/30/20 19:40 109 31 90 06/30/20 19:36 109 06/30/20 19:00 31 135/70 Mechanical Ventilator 100 06/30/20 19:00 31 Mechanical Ventilator 100 06/30/20 19:00 113 32 120/71 (87) 98 06/30/20 18:30 100.8 114 26 146/71 (96) 92 06/30/20 18:00 32 153/69 Mechanical Ventilator 100 06/30/20 18:00 33 Mechanical Ventilator 100 06/30/20 18:00 115 27 153/69 (97) 95 06/30/20 17:30 117 33 121/77 (92) 97 06/30/20 17:00 33 126/67 Mechanical Ventilator 100 06/30/20 17:00 33 Mechanical Ventilator 100 06/30/20 17:00 120 33 126/67 (86) 95 06/30/20 16:30 123 33 183/92 (122) 87 06/30/20 16:00 Mechanical Ventilator Mechanical Ventilator 06/30/20 16:00 90 06/30/20 16:00 33 164/88 Mechanical Ventilator 100 06/30/20 16:00 33 Mechanical Ventilator 100 06/30/20 16:00 127 33 164/88 (113) 93 06/30/20 16:00 120 06/30/20 15:30 125 34 142/83 (102) 95 06/30/20 15:27 121 33 100 06/30/20 15:00 124 32 143/76 (98) 96 06/30/20 15:00 33 143/76 Mechanical Ventilator 100 06/30/20 15:00 33 Mechanical Ventilator 100 06/30/20 14:30 122 34 153/82 (105) 95 06/30/20 14:00 33 161/80 Mechanical Ventilator 100 06/30/20 14:00 33 Mechanical Ventilator 100 06/30/20 14:00 120 34 161/80 (107) 94 06/30/20 13:30 119 34 157/78 (104) 94 06/30/20 13:00 34 160/86 Mechanical Ventilator 100 06/30/20 13:00 34 Mechanical Ventilator 100 06/30/20 13:00 118 34 160/86 (110) 93 06/30/20 12:30 120 33 161/89 (113) 99 06/30/20 12:00 Mechanical Ventilator Mechanical Ventilator 06/30/20 12:00 99.8 06/30/20 12:00 33 168/101 Mechanical Ventilator 100 06/30/20 12:00 33 Mechanical Ventilator 100 06/30/20 12:00 120 33 170/96 (120) 98 06/30/20 12:00 120 06/30/20 12:00 90 06/30/20 11:30 120 33 154/89 (110) 98 06/30/20 11:00 33 145/85 Mechanical Ventilator 100 06/30/20 11:00 33 100 06/30/20 11:00 119 33 149/89 (109) 97 06/30/20 10:56 122 34 100 06/30/20 10:30 114 33 145/85 (105) 96 06/30/20 10:00 33 133/80 Mechanical Ventilator 100 06/30/20 10:00 33 Mechanical Ventilator 100 06/30/20 10:00 111 33 132/78 (96) 94 06/30/20 09:30 107 34 133/80 (97) 94 06/30/20 09:00 24 156/75 100 06/30/20 09:00 34 Mechanical Ventilator 100 06/30/20 09:00 111 34 144/76 (98) 93 06/30/20 08:30 110 34 156/75 (102) 93 06/30/20 08:30 103 159/69 06/30/20 08:00 100.6 06/30/20 08:00 100 06/30/20 08:00 105 36 163/67 (99) 92 06/30/20 08:00 35 162/66 Mechanical Ventilator 100 06/30/20 08:00 35 Mechanical Ventilator 100 06/30/20 08:00 100 06/30/20 08:00 Mechanical Ventilator Mechanical Ventilator 06/30/20 07:30 101 36 162/66 (98) 90 06/30/20 07:30 90 34 100 06/30/20 07:00 33 149/65 Mechanical Ventilator 100 06/30/20 07:00 33 Mechanical Ventilator 100 06/30/20 07:00 94 33 149/65 (93) 90 06/30/20 06:45 92 32 142/67 (92) 90 Intake and Output 07/01/20 07/02/20 19:00 07:00 Intake Total 1277 ml 1225 ml Output Total 330 ml 860 ml Balance 947 ml 365 ml Intake Free Water 250 ml IV Total 672 ml 535 ml Tube Feeding 605 ml 440 ml Output Urine Total 330 ml 860 ml # Bowel Movements 2 Labs Test 06/29/20 12:31 06/30/20 04:25 07/01/20 06:11 07/01/20 19:31 POC Whole Blood Glucose 176 MG/DL (74-106) White Blood Count 9.2 K/UL (4.8-10.8) 9.9 K/UL (4.8-10.8) Red Blood Count 3.48 M/UL (4.20-5.40) 3.67 M/UL (4.20-5.40) Hemoglobin 10.8 G/DL (12.0-16.0) 11.1 G/DL (12.0-16.0) Hematocrit 32.8 % (37.0-47.0) 34.7 % (37.0-47.0) Mean Corpuscular Volume 94 FL (80-99) 95 FL (80-99) Mean Corpuscular Hemoglobin 30.9 PG (27.0-31.0) 30.3 PG (27.0-31.0) Mean Corpuscular Hemoglobin Concent 32.8 G/DL (32.0-36.0) 32.0 G/DL (32.0-36.0) Red Cell Distribution Width 15.1 % (11.6-14.8) 14.7 % (11.6-14.8) Platelet Count 77 K/UL (150-450) 100 K/UL (150-450) Mean Platelet Volume 7.7 FL (6.5-10.1) 7.6 FL (6.5-10.1) Neutrophils (%) (Auto) % (45.0-75.0) % (45.0-75.0) Lymphocytes (%) (Auto) % (20.0-45.0) % (20.0-45.0) Monocytes (%) (Auto) % (1.0-10.0) % (1.0-10.0) Eosinophils (%) (Auto) % (0.0-3.0) % (0.0-3.0) Basophils (%) (Auto) % (0.0-2.0) % (0.0-2.0) Differential Total Cells Counted 100 100 Neutrophils % (Manual) 92 % (45-75) 87 % (45-75) Lymphocytes % (Manual) 6 % (20-45) 9 % (20-45) Monocytes % (Manual) 2 % (1-10) 2 % (1-10) Eosinophils % (Manual) 0 % (0-3) 2 % (0-3) Basophils % (Manual) 0 % (0-2) 0 % (0-2) Band Neutrophils 0 % (0-8) 0 % (0-8) Platelet Estimate Decreased Decreased Platelet Morphology Normal Normal Polychromasia 1+ Hypochromasia 1+ Anisocytosis 1+ 1+ Sodium Level 146 MMOL/L (136-145) 148 MMOL/L (136-145) Potassium Level 3.5 MMOL/L (3.5-5.1) 3.5 MMOL/L (3.5-5.1) Chloride Level 109 MMOL/L (98-107) 108 MMOL/L (98-107) Carbon Dioxide Level 36 MMOL/L (21-32) 36 MMOL/L (21-32) Anion Gap 1 mmol/L (5-15) 4 mmol/L (5-15) Blood Urea Nitrogen 21 mg/dL (7-18) 21 mg/dL (7-18) Creatinine 0.5 MG/DL (0.55-1.30) 0.6 MG/DL (0.55-1.30) Estimat Glomerular Filtration Rate > 60 mL/min (>60) > 60 mL/min (>60) Glucose Level 173 MG/DL (74-106) 144 MG/DL (74-106) Calcium Level 7.4 MG/DL (8.5-10.1) 7.6 MG/DL (8.5-10.1) Phosphorus Level 2.3 MG/DL (2.5-4.9) 2.0 MG/DL (2.5-4.9) Magnesium Level 2.2 MG/DL (1.8-2.4) 2.0 MG/DL (1.8-2.4) Total Bilirubin 0.9 MG/DL (0.2-1.0) 0.6 MG/DL (0.2-1.0) Aspartate Amino Transf (AST/SGOT) 60 U/L (15-37) 59 U/L (15-37) Alanine Aminotransferase (ALT/SGPT) 59 U/L (12-78) 60 U/L (12-78) Alkaline Phosphatase 98 U/L (46-116) 128 U/L (46-116) C-Reactive Protein, Quantitative 16.0 mg/dL (0.00-0.90) Pro-B-Type Natriuretic Peptide 131 pg/mL (0-125) Total Protein 5.2 G/DL (6.4-8.2) 5.4 G/DL (6.4-8.2) Albumin 1.5 G/DL (3.4-5.0) 1.4 G/DL (3.4-5.0) Globulin 3.7 g/dL Albumin/Globulin Ratio 0.4 (1.0-2.7) Direct Bilirubin 0.3 MG/DL (0.0-0.3) Arterial Blood pH 7.484 (7.350-7.450) Arterial Blood Partial Pressure CO2 44.3 mmHg (35.0-45.0) Arterial Blood Partial Pressure O2 55.8 mmHg (75.0-100.0) Arterial Blood HCO3 32.5 mmol/L (22.0-26.0) Arterial Blood Oxygen Saturation 90.3 % (95-100) Arterial Blood Base Excess 8.2 (-2-2) Amrit Test Positive Test 07/01/20 22:45 07/02/20 04:45 Urine Color Yellow Urine Appearance Clear Urine pH 6 (4.5-8.0) Urine Specific [place] 1.020 (1.005-1.035) Urine Protein 2+ (NEGATIVE) Urine Glucose (UA) Negative (NEGATIVE) Urine Ketones 1+ (NEGATIVE) Urine Blood 5+ (NEGATIVE) Urine Nitrite Negative (NEGATIVE) Urine Bilirubin 1+ (NEGATIVE) Urine Ictotest Negative (NEGATIVE) Urine Urobilinogen 4 MG/DL (0.0-1.0) Urine Leukocyte Esterase 1+ (NEGATIVE) Urine RBC Tntc /HPF (0 - 2) Urine WBC 2-4 /HPF (0 - 2) Urine Squamous Epithelial Cells Few /LPF (NONE/OCC) Urine Bacteria Few /HPF (NONE) Urine Mucus Few /LPF (NONE/OCC) White Blood Count 7.9 K/UL (4.8-10.8) Red Blood Count 3.32 M/UL (4.20-5.40) Hemoglobin 10.1 G/DL (12.0-16.0) Hematocrit 31.5 % (37.0-47.0) Mean Corpuscular Volume 95 FL (80-99) Mean Corpuscular Hemoglobin 30.3 PG (27.0-31.0) Mean Corpuscular Hemoglobin Concent 32.0 G/DL (32.0-36.0) Red Cell Distribution Width 14.7 % (11.6-14.8) Platelet Count 91 K/UL (150-450) Mean Platelet Volume 8.8 FL (6.5-10.1) Neutrophils (%) (Auto) % (45.0-75.0) Lymphocytes (%) (Auto) % (20.0-45.0) Monocytes (%) (Auto) % (1.0-10.0) Eosinophils (%) (Auto) % (0.0-3.0) Basophils (%) (Auto) % (0.0-2.0) Sodium Level 150 MMOL/L (136-145) Potassium Level 3.5 MMOL/L (3.5-5.1) Chloride Level 112 MMOL/L (98-107) Carbon Dioxide Level 36 MMOL/L (21-32) Anion Gap 2 mmol/L (5-15) Blood Urea Nitrogen 24 mg/dL (7-18) Creatinine 0.4 MG/DL (0.55-1.30) Estimat Glomerular Filtration Rate > 60 mL/min (>60) Glucose Level 90 MG/DL (74-106) Calcium Level 7.3 MG/DL (8.5-10.1) Phosphorus Level 2.4 MG/DL (2.5-4.9) Magnesium Level 2.0 MG/DL (1.8-2.4) Total Bilirubin 0.6 MG/DL (0.2-1.0) Aspartate Amino Transf (AST/SGOT) 54 U/L (15-37) Alanine Aminotransferase (ALT/SGPT) 56 U/L (12-78) Alkaline Phosphatase 82 U/L (46-116) Total Protein 5.1 G/DL (6.4-8.2) Albumin 1.2 G/DL (3.4-5.0) Globulin 3.9 g/dL Albumin/Globulin Ratio 0.3 (1.0-2.7) Height (Feet): 5 Height (Inches): 2.00 Weight (Pounds): 138 Objective Physical Exam Vitals: reviewed, abnormal - Interpreted as low by me General: GCS 15 - Sometimes slightly confused, non-toxic, mild distress Head: normocephalic, moist mucus membranes Neck: supple Respiratory: no retraction, no accessory muscle use, respiratory distress - Minimal with tachypnea, crackles Cardiovascular: regular rate, rhythm, no edema Gastrointestinal: normal inspection, non tender, soft Genitourinary: no CVA tenderness Musculoskeletal: back normal Neurologic: alert, oriented x3, grossly normal Psychiatric: mood/affect normal - sometimes confused Skin: no rash, warm/dry Jj Swann MD Jul 02, 2020 06:37
--- NOTE | 2020-07-02 07:21 | NUR ---
Gave report to NORMAN Lyon who assumed care of patient.
--- NOTE | 2020-07-02 08:21 | NUR ---
RD ASSESSMENT & RECOMMENDATIONS SEE CARE ACTIVITY FOR COMPLETE ASSESSMENT DAILY ESTIMATED NEEDS: Needs based on Critical care 62.7kg 22-28 kcals/kg 5946-2497 total kcals 1.2-2 g protein/kg 75-125 g total protein 25-30 mL/kg 3657-5402 total fluid mLs NUTRITION DIAGNOSIS: Altered nutrition related lab values r/t clinical status as evidenced by elev BG checks (POC 226 230 128), A1C 7.1, elevated Na(153-> 146), elev BUN(34-> 23), elev Mg(3.1). ENTERAL NUTRITION RECOMMENDATIONS: Glucerna 1.2 goal of 55ml/hr x24 hrs to provide 1320ml, 1584 kcal, 79g pro, 1063ml free H2O - Maintain Glucerna 1.2 @goal as tolerated. - Flush per MD/ HOB over 30 degrees - Trophic feeds if on pressor support to maintain gut integrity. ADDITIONAL RECOMMENDATIONS: 1) Now Intubated-->>Rec OGT/ NGT feeds 2) Maintain D5 while NPO 3) Calibrated bed scale wts 4) Lytes low, replete as able 5) On decadron, close monitoring of BG 6) Feed w/ hemodynamic stability- no pressors at this time
[2020-07-02] MEDS ORDERED: Potassium Phosphate 20 MM in NS 275 ML IV ONE (08:30)
[2020-07-02] MEDS: Vitamin D 1000 units Tab GT SCH (09:00)
[2020-07-02] MEDS: Docusate 100mg/10ml Liq NG SCH ×3 (09:00→21:27)
[2020-07-02] MEDS: Cefepime HCl 1 GM in D5W 55 ML IVPB SCH ×2 (09:00→20:38)
[2020-07-02] MEDS: Pantoprazole Inj IVP SCH ×2 (09:00→20:38)
[2020-07-02] MEDS: Carvedilol 6.25mg Tab ORAL SCH ×2 (09:00→20:39)
--- NOTE | 2020-07-02 09:34 | NUR ---
RADIOLOGY DEPT., CHEST X-RAY DONE.-P.DYE
--- NOTE | 2020-07-02 11:19 | Pulmonology Progress Note ---
Subjective ROS Limited/Unobtainable: Yes Interval Events: Remains intubated; bilateral chest tubes in place Constitutional: Reports: fever, other - low grade HEENT: Repors: no symptoms Respiratory: Reports: shortness of breath Cardiovascular: Reports: no symptoms Gastrointestinal/Abdominal: Reports: no symptoms Allergies: Coded Allergies: No Known Allergies (Unverified , 06/17/20) All Systems: reviewed and negative except above Objective Last 24 Hour Vital Signs Date Time Temp Pulse Resp B/P (MAP) Pulse Ox O2 Delivery O2 Flow Rate FiO2 07/02/20 09:45 88 28 131/70 (90) 97 07/02/20 09:30 88 31 149/76 (100) 97 07/02/20 09:15 95 28 105/56 (72) 92 07/02/20 09:00 93 29 126/65 (85) 87 07/02/20 09:00 80 121/63 07/02/20 08:45 88 32 127/69 (88) 89 07/02/20 08:30 93 29 117/61 (79) 92 07/02/20 08:15 96 29 138/60 (86) 90 07/02/20 08:15 96 29 138/60 (86) 90 07/02/20 08:00 95 30 130/58 (82) 90 07/02/20 08:00 95 30 130/58 (82) 90 07/02/20 08:00 90 07/02/20 08:00 100 07/02/20 08:00 Mechanical Ventilator Mechanical Ventilator 07/02/20 07:45 97 27 135/65 (88) 90 07/02/20 07:30 92 28 133/51 (78) 94 07/02/20 07:15 88 27 121/56 (77) 94 07/02/20 07:10 93 28 100 07/02/20 07:00 84 29 96/47 (63) 94 07/02/20 07:00 84 29 96/47 (63) 94 07/02/20 06:45 80 28 97/48 (64) 93 07/02/20 06:45 80 28 97/48 (64) 93 07/02/20 06:30 77 27 102/47 (65) 94 07/02/20 06:30 77 27 102/47 (65) 94 07/02/20 06:30 77 27 102/47 (65) 94 07/02/20 06:15 74 25 96/50 (65) 71 07/02/20 06:15 74 25 96/50 (65) 71 07/02/20 06:15 74 25 96/50 (65) 71 07/02/20 06:10 26 118/60 Mechanical Ventilator 100 07/02/20 06:00 26 Mechanical Ventilator 100 07/02/20 06:00 26 98/63 Mechanical Ventilator 100 07/02/20 06:00 71 24 118/60 (79) 81 07/02/20 06:00 98.0 71 24 118/60 (79) 81 07/02/20 06:00 71 24 118/60 (79) 81 07/02/20 05:45 66 22 145/64 (91) 85 07/02/20 05:45 66 22 145/64 (91) 85 07/02/20 05:30 76 26 97/50 (66) 98 07/02/20 05:30 76 26 97/50 (66) 98 07/02/20 05:15 78 24 94/55 (68) 100 07/02/20 05:15 78 24 94/55 (68) 100 07/02/20 05:00 76 26 110/50 (70) 99 07/02/20 05:00 26 Mechanical Ventilator 100 07/02/20 05:00 26 110/60 Mechanical Ventilator 100 07/02/20 05:00 76 26 110/50 (70) 99 07/02/20 04:45 78 27 97/48 (64) 98 07/02/20 04:30 79 27 96/50 (65) 98 07/02/20 04:15 81 27 100/51 (67) 99 07/02/20 04:00 98.3 83 28 100/52 (68) 98 07/02/20 04:00 Mechanical Ventilator Mechanical Ventilator 07/02/20 04:00 28 Mechanical Ventilator 100 07/02/20 04:00 28 95/52 Mechanical Ventilator 100 07/02/20 04:00 100 07/02/20 03:45 84 27 95/52 (66) 97 07/02/20 03:30 87 26 95/52 (66) 99 07/02/20 03:15 89 26 95/56 (69) 98 07/02/20 03:03 90 07/02/20 03:00 99.5 90 28 87/52 (64) 98 07/02/20 03:00 28 Mechanical Ventilator 100 07/02/20 03:00 27 87/52 Mechanical Ventilator 100 07/02/20 02:45 95 28 110/57 (74) 100 07/02/20 02:30 95 28 97/57 (70) 95 07/02/20 02:15 94 28 102/61 (75) 93 07/02/20 02:00 94 28 113/53 (73) 92 07/02/20 02:00 28 Mechanical Ventilator 100 07/02/20 02:00 30 87/52 Mechanical Ventilator 100 07/02/20 01:45 92 28 106/59 (75) 89 07/02/20 01:40 89 31 90 07/02/20 01:30 91 28 107/59 (75) 90 07/02/20 01:15 88 27 107/57 (74) 93 07/02/20 01:09 32 107/57 Mechanical Ventilator 100 07/02/20 01:00 87 30 139/76 (97) 89 07/02/20 01:00 27 Mechanical Ventilator 100 07/02/20 00:45 89 29 118/68 (85) 94 07/02/20 00:40 30 Mechanical Ventilator 100 07/02/20 00:30 89 30 128/13 (51) 95 07/02/20 00:15 89 30 127/59 (81) 95 07/02/20 00:00 Mechanical Ventilator Mechanical Ventilator 07/02/20 00:00 30 Mechanical Ventilator 100 07/02/20 00:00 32 127/59 Mechanical Ventilator 100 07/02/20 00:00 100 07/02/20 00:00 98.4 89 29 113/64 (80) 96 07/01/20 23:45 90 30 164/63 (96) 93 07/01/20 23:30 86 29 143/62 (89) 94 07/01/20 23:24 87 07/01/20 23:15 84 29 129/84 (99) 93 07/01/20 23:00 83 30 113/79 (90) 94 07/01/20 23:00 30 Mechanical Ventilator 100 07/01/20 23:00 30 137/57 Mechanical Ventilator 100 07/01/20 22:45 85 29 140/67 (91) 93 07/01/20 22:30 87 31 144/66 (92) 83 07/01/20 22:15 85 29 135/74 (94) 81 07/01/20 22:00 30 Mechanical Ventilator 100 07/01/20 22:00 30 88/64 Mechanical Ventilator 100 07/01/20 22:00 87 31 137/57 (83) 93 07/01/20 21:45 89 31 109/73 (85) 94 07/01/20 21:30 89 30 135/57 (83) 94 07/01/20 21:15 91 30 100/57 (71) 95 07/01/20 21:00 98.9 95 30 88/64 (72) 89 07/01/20 21:00 30 Mechanical Ventilator 100 07/01/20 21:00 30 88/64 Mechanical Ventilator 100 07/01/20 21:00 90 98/57 07/01/20 20:45 93 24 116/64 (81) 84 07/01/20 20:30 96 27 143/66 (91) 88 07/01/20 20:15 102 30 122/73 (89) 87 07/01/20 20:00 Mechanical Ventilator Mechanical Ventilator 07/01/20 20:00 100 31 130/73 (92) 86 07/01/20 20:00 100 07/01/20 20:00 32 Mechanical Ventilator 100 07/01/20 20:00 32 90/61 Mechanical Ventilator 100 07/01/20 19:45 101 30 131/84 (100) 89 07/01/20 19:36 100 07/01/20 19:30 103 31 108/82 (91) 92 07/01/20 19:15 105 32 90/61 (71) 88 07/01/20 19:00 101 30 90 07/01/20 19:00 98.5 106 33 90/59 (69) 89 07/01/20 19:00 32 Mechanical Ventilator 100 07/01/20 19:00 30 130/73 Mechanical Ventilator 100 07/01/20 18:00 34 07/01/20 18:00 112 34 135/69 (91) 83 07/01/20 17:00 137 36 171/97 (121) 96 07/01/20 17:00 30 07/01/20 16:00 90 07/01/20 16:00 109 07/01/20 16:00 33 07/01/20 16:00 100.9 108 26 146/77 (100) 96 07/01/20 16:00 Mechanical Ventilator Mechanical Ventilator 07/01/20 15:41 110 33 90 07/01/20 15:00 34 07/01/20 15:00 115 30 134/71 (92) 96 07/01/20 14:00 119 31 142/84 (103) 96 07/01/20 14:00 33 07/01/20 13:55 102 33 90 07/01/20 13:45 120 31 152/94 (113) 97 07/01/20 13:30 118 31 144/78 (100) 95 07/01/20 13:15 118 31 129/75 (93) 94 07/01/20 13:00 30 07/01/20 13:00 117 31 129/75 (93) 96 07/01/20 13:00 116 32 151/81 (104) 94 07/01/20 12:45 111 32 154/95 (114) 96 07/01/20 12:30 108 32 153/81 (105) 96 07/01/20 12:15 108 32 159/82 (107) 96 07/01/20 12:00 90 07/01/20 12:00 Mechanical Ventilator Mechanical Ventilator 07/01/20 12:00 108 33 163/76 (105) 95 07/01/20 12:00 33 Mechanical Ventilator 07/01/20 12:00 33 146/78 Mechanical Ventilator 07/01/20 12:00 107 07/01/20 12:00 108 33 95 07/01/20 11:45 107 32 159/76 (103) 95 07/01/20 11:30 107 33 143/73 (96) 94 Intake and Output 07/01/20 07/02/20 19:00 07:00 Intake Total 1277 ml 1396 ml Output Total 330 ml 1060 ml Balance 947 ml 336 ml Intake Free Water 250 ml IV Total 672 ml 596 ml Tube Feeding 605 ml 550 ml Output Urine Total 330 ml 960 ml Chest Tube Drainage Total 100 ml # Bowel Movements 2 General Appearance: no acute distress HEENT: atraumatic Respiratory: crackles/rales Cardiovascular: normal rate Abdomen: soft, non tender Laboratory Tests 07/01/20 19:31: Arterial Blood pH 7.484H, Arterial Blood Partial Pressure CO2 44.3, Arterial Blood Partial Pressure O2 55.8L, Arterial Blood HCO3 32.5H, Arterial Blood Oxygen Saturation 90.3L, Arterial Blood Base Excess 8.2H, Amrit Test Positive 07/01/20 22:45: Urine Color Yellow, Urine Appearance Clear, Urine pH 6, Urine Specific Cascade 1.020, Urine Protein 2+H, Urine Glucose (UA) Negative, Urine Ketones 1+H, Urine Blood 5+H, Urine Nitrite Negative, Urine Bilirubin 1+H, Urine Ictotest Negative, Urine Urobilinogen 4H, Urine Leukocyte Esterase 1+H, Urine RBC TntcH, Urine WBC 2-4, Urine Squamous Epithelial Cells Few, Urine Bacteria Few, Urine Mucus FewH 07/02/20 04:45: White Blood Count 7.9, Red Blood Count 3.32L, Hemoglobin 10.1L, Hematocrit 31.5L , Mean Corpuscular Volume 95, Mean Corpuscular Hemoglobin 30.3, Mean Corpuscular Hemoglobin Concent 32.0, Red Cell Distribution Width 14.7, Platelet Count 91L, Mean Platelet Volume 8.8, Neutrophils (%) (Auto) , Lymphocytes (%) (Auto) , Monocytes (%) (Auto) , Eosinophils (%) (Auto) , Basophils (%) (Auto) , Sodium Level 150H, Potassium Level 3.5, Chloride Level 112H, Carbon Dioxide Level 36H, Anion Gap 2L, Blood Urea Nitrogen 24H, Creatinine 0.4L, Estimat Glomerular Filtration Rate > 60, Glucose Level 90, Calcium Level 7.3L, Phosphorus Level 2.4L, Magnesium Level 2.0, Total Bilirubin 0.6, Aspartate Amino Transf (AST/SGOT) 54H, Alanine Aminotransferase (ALT/SGPT) 56, Alkaline Phosphatase 82, Total Protein 5.1L, Albumin 1.2L, Globulin 3.9, Albumin/Globulin Ratio 0.3L Current Medications Medications (Trade) Dose Ordered Sig/Maya Route PRN Reason Start Time Stop Time Status Last Admin Dose Admin Acetaminophen (Tylenol) 500 mg Q4H PRN ORAL Mild Pain (Pain Scale 1-3) 06/18/20 00:15 07/18/20 00:14 06/24/20 17:51 Acetaminophen (Tylenol) 500 mg Q4H PRN ORAL Temp >100.5 06/18/20 00:15 07/18/20 00:14 06/29/20 20:01 Carvedilol (Coreg) 6.25 mg EVERY 12 HOURS ORAL 06/22/20 21:00 07/22/20 20:59 07/01/20 09:00 Cefepime HCl 1 gm/ Dextrose 55 ml @ 110 mls/hr EVERY 12 HOURS IVPB 07/01/20 11:45 07/08/20 11:44 07/02/20 09:00 Chlorhexidine Gluconate (Sissy-Hex 2%) 1 applic DAILY@2000 TOPIC 06/28/20 20:00 09/26/20 19:59 07/01/20 20:10 Dextrose (Dextrose 50%) 25 ml Q30M PRN IV Hypoglycemia 06/18/20 14:15 09/16/20 14:14 Dextrose (Dextrose 50%) 50 ml Q30M PRN IV Hypoglycemia 06/18/20 14:15 09/16/20 14:14 Docusate Sodium (Colace) 100 mg EVERY 8 HOURS NG 07/02/20 14:00 07/28/20 12:59 Fentanyl Citrate 1000 mcg/Sodium Chloride 100 ml @ 1 mls/hr Q24H IV 07/01/20 22:30 07/03/20 22:29 07/02/20 06:10 Furosemide (Lasix) 40 mg DAILY IV 06/28/20 17:45 07/28/20 16:59 07/02/20 09:00 Haloperidol Lactate (Haldol) 10 mg Q6H PRN IM Agitation 06/23/20 11:30 08/07/20 11:29 06/23/20 11:34 Heparin Sodium/ Sodium Chloride (Heparin 1000 units/500ml Premix) 1,000 unit NEEDED PRN IV PICC LINE PLACEMENT 06/28/20 20:00 Insulin Aspart (NovoLOG) while NPO Q6HR SUBQ 06/18/20 18:00 09/16/20 17:59 07/02/20 00:40 Midazolam HCl 100 ml @ 0 mls/hr Q24H PRN IV To Patient Comfort 07/02/20 05:15 07/04/20 05:14 Pantoprazole (Protonix) 40 mg EVERY 12 HOURS IVP 06/18/20 21:00 07/18/20 20:59 07/02/20 09:00 Potassium Phosphate 20 mm/ Sodium Chloride 281.6667 ml @ 46.944 m... ONCE ONCE IV 07/02/20 08:30 07/02/20 14:29 07/02/20 08:30 Sodium Chloride 1,000 ml @ 50 mls/hr Q20H IV 06/26/20 08:00 07/26/20 07:59 07/02/20 02:22 Vitamin D (Vitamin D) 2,000 unit DAILY GT 06/29/20 10:30 07/29/20 10:29 07/02/20 09:00 Assessment/Plan Assessment/Plan 1. COVID-19 pneumonia -Intubated, on 80-90% FiO2. PEEP 5-10. -SaO2 96% -On Decadron, s/p remdesivir 2. Leukocytosis -Resolved 3. Elevated D-dimer -On Lovenox 40 subcu QD for DVT prophylaxis 4. Renal insufficiency -Improved 5. Anemia of chronic disease -Hematology oncology following 6. Sepsis -Status post antibiotics, fluid resuscitation 7. Pneumothorax 06/22/20 - b/l subcutaneous emphysema, pneumomediastinum, probable small left pneumothorax & ? trace right pneumothorax. -P[place] in place - placed CT by surgery (bilateral) - Will attempt wean when FiO2 decreases Charlie Sewell MD Jul 02, 2020 11:19
--- NOTE | 2020-07-02 12:41 | Nephrology Progress Note ---
Assessment/Plan Problem List: (1) LEONARDO (acute kidney injury) (2) Dehydration (3) DMII (diabetes mellitus, type 2) (4) Pneumonia due to COVID-19 virus (5) Hypoxia Assessment 70-year-old female presents with COVID-19 pneumonia and hypoxia On admission has BUN of 77 and creatinine of 1.6. Renal failure most likely prerenal and dehydration with possible underlying chronic kidney disease Patient has elevated inflammatory markers Hypoalbuminemia Electrolyte abnormalities Hyperglycemia Plan July 02: Remains intubated. Has a bilateral chest tube. He is full code. Labs reviewed. Abnormal electrolyte addressed. Continue per consultants. July 01: Remains intubated. Continues to have bilateral chest tube. Full code. Labs reviewed. Renal parameters stable. Low phosphorus addressed. Discussed with NORMAN Lyon. June 30: Full code. Intubated. Bilateral chest tube. As reviewed. Abnormal electrolytes addressed. June 29: Full code. Intubated. Bilateral chest tube. Unstable pulmonary status. ABG ordered. Electrolyte imbalance addressed. Discussed with NORMAN Montalvo. June 28: Labs reviewed. Abnormal electrolytes addressed. Patient remains full code. Continue per consultants. June 27: No chemistry panel done today. Remains full code. Medication list reviewed. Continue per consultants. Will monitor electrolytes and renal panel in a.m. June 26: Status quo. Remains full code. Labs reviewed. Main IV changed to normal saline 50 cc an hour. Continue per consultants and pulmonary. June 25: Remains intubated. Has bilateral chest tube. Full code. Labs reviewed. Abnormal electrolytes addressed. Albumin bolus given. Continue to monitor renal parameters. Poor prognosis. June 24: Patient in ICU. Intubated. Has bilateral chest tube. Labs reviewed. Renal parameters stable. Low phosphorus addressed. Continue per consultants. Full code. Poor prognosis. June 23: Patient in ICU. Intubated. Due for insertion of a chest tube. Has pneumothorax. Renal parameters are stable. Serum sodium rising. Will adjust IV fluid. Continue per consultants. Patient full code. Prognosis poor. June 22: Labs reviewed. Remains on BiPAP which is not changed to high flow oxygen due to pneumothorax found on chest x-ray. Serum sodium 155. Continues on D5W. Electrolytes within normal limits. Check 2D echocardiogram. Coreg for blood pressure and heart rate. June 21: Status quo. On BiPAP. Full code. Serum sodium 153. Continue D5W. Continue to monitor electrolytes. Continue per consultants. June 20: Patient full code. On BiPAP. Labs reviewed. Serum sodium rising. Will increase D5W to 75 cc an hour. Continue to monitor electrolytes. June 19: IV changed to D5W. Monitor blood sugar. Monitor electrolytes. Medication list reviewed. Patient is being treated for COVID-19 pneumonia. Patient is full code. Previously Pulmonary support IV antibiotics Slow hydration Avoid nephrotoxic Monitor renal parameters Per orders Subjective ROS Limited/Unobtainable: Yes Objective Objective Last 24 Hour Vital Signs Date Time Temp Pulse Resp B/P (MAP) Pulse Ox O2 Delivery O2 Flow Rate FiO2 07/02/20 12:00 100 07/02/20 12:00 90 07/02/20 12:00 87 24 148/72 (97) 99 07/02/20 12:00 Mechanical Ventilator Mechanical Ventilator 07/02/20 11:45 86 20 139/71 (93) 99 07/02/20 11:30 90 28 100 07/02/20 11:30 86 26 140/77 (98) 90 07/02/20 11:15 86 27 152/80 (104) 66 07/02/20 11:00 83 27 157/71 (99) 89 07/02/20 10:45 83 26 150/68 (95) 92 07/02/20 10:30 83 25 143/73 (96) 98 07/02/20 10:15 87 27 133/72 (92) 98 07/02/20 10:00 87 26 127/73 (91) 97 07/02/20 09:45 88 28 131/70 (90) 97 07/02/20 09:30 88 31 149/76 (100) 97 07/02/20 09:15 95 28 105/56 (72) 92 07/02/20 09:00 93 29 126/65 (85) 87 07/02/20 09:00 80 121/63 07/02/20 08:45 88 32 127/69 (88) 89 07/02/20 08:30 93 29 117/61 (79) 92 07/02/20 08:15 96 29 138/60 (86) 90 07/02/20 08:15 96 29 138/60 (86) 90 07/02/20 08:00 95 30 130/58 (82) 90 07/02/20 08:00 95 30 130/58 (82) 90 07/02/20 08:00 90 07/02/20 08:00 100 07/02/20 08:00 Mechanical Ventilator Mechanical Ventilator 07/02/20 07:45 97 27 135/65 (88) 90 07/02/20 07:30 92 28 133/51 (78) 94 07/02/20 07:15 88 27 121/56 (77) 94 07/02/20 07:10 93 28 100 07/02/20 07:00 84 29 96/47 (63) 94 07/02/20 07:00 84 29 96/47 (63) 94 07/02/20 06:45 80 28 97/48 (64) 93 07/02/20 06:45 80 28 97/48 (64) 93 07/02/20 06:30 77 27 102/47 (65) 94 07/02/20 06:30 77 27 102/47 (65) 94 07/02/20 06:30 77 27 102/47 (65) 94 07/02/20 06:15 74 25 96/50 (65) 71 07/02/20 06:15 74 25 96/50 (65) 71 07/02/20 06:15 74 25 96/50 (65) 71 07/02/20 06:10 26 118/60 Mechanical Ventilator 100 07/02/20 06:00 26 Mechanical Ventilator 100 07/02/20 06:00 26 98/63 Mechanical Ventilator 100 07/02/20 06:00 71 24 118/60 (79) 81 07/02/20 06:00 98.0 71 24 118/60 (79) 81 07/02/20 06:00 71 24 118/60 (79) 81 07/02/20 05:45 66 22 145/64 (91) 85 07/02/20 05:45 66 22 145/64 (91) 85 07/02/20 05:30 76 26 97/50 (66) 98 07/02/20 05:30 76 26 97/50 (66) 98 07/02/20 05:15 78 24 94/55 (68) 100 07/02/20 05:15 78 24 94/55 (68) 100 07/02/20 05:00 76 26 110/50 (70) 99 07/02/20 05:00 26 Mechanical Ventilator 100 07/02/20 05:00 26 110/60 Mechanical Ventilator 100 07/02/20 05:00 76 26 110/50 (70) 99 07/02/20 04:45 78 27 97/48 (64) 98 07/02/20 04:30 79 27 96/50 (65) 98 07/02/20 04:15 81 27 100/51 (67) 99 07/02/20 04:00 98.3 83 28 100/52 (68) 98 07/02/20 04:00 Mechanical Ventilator Mechanical Ventilator 07/02/20 04:00 28 Mechanical Ventilator 100 07/02/20 04:00 28 95/52 Mechanical Ventilator 100 07/02/20 04:00 100 07/02/20 03:45 84 27 95/52 (66) 97 07/02/20 03:30 87 26 95/52 (66) 99 07/02/20 03:15 89 26 95/56 (69) 98 07/02/20 03:03 90 07/02/20 03:00 99.5 90 28 87/52 (64) 98 07/02/20 03:00 28 Mechanical Ventilator 100 07/02/20 03:00 27 87/52 Mechanical Ventilator 100 07/02/20 02:45 95 28 110/57 (74) 100 07/02/20 02:30 95 28 97/57 (70) 95 07/02/20 02:15 94 28 102/61 (75) 93 07/02/20 02:00 94 28 113/53 (73) 92 07/02/20 02:00 28 Mechanical Ventilator 100 07/02/20 02:00 30 87/52 Mechanical Ventilator 100 07/02/20 01:45 92 28 106/59 (75) 89 07/02/20 01:40 89 31 90 07/02/20 01:30 91 28 107/59 (75) 90 07/02/20 01:15 88 27 107/57 (74) 93 07/02/20 01:09 32 107/57 Mechanical Ventilator 100 07/02/20 01:00 87 30 139/76 (97) 89 07/02/20 01:00 27 Mechanical Ventilator 100 07/02/20 00:45 89 29 118/68 (85) 94 07/02/20 00:40 30 Mechanical Ventilator 100 07/02/20 00:30 89 30 128/13 (51) 95 07/02/20 00:15 89 30 127/59 (81) 95 07/02/20 00:00 Mechanical Ventilator Mechanical Ventilator 07/02/20 00:00 30 Mechanical Ventilator 100 07/02/20 00:00 32 127/59 Mechanical Ventilator 100 07/02/20 00:00 100 07/02/20 00:00 98.4 89 29 113/64 (80) 96 07/01/20 23:45 90 30 164/63 (96) 93 07/01/20 23:30 86 29 143/62 (89) 94 07/01/20 23:24 87 07/01/20 23:15 84 29 129/84 (99) 93 07/01/20 23:00 83 30 113/79 (90) 94 07/01/20 23:00 30 Mechanical Ventilator 100 07/01/20 23:00 30 137/57 Mechanical Ventilator 100 07/01/20 22:45 85 29 140/67 (91) 93 07/01/20 22:30 87 31 144/66 (92) 83 07/01/20 22:15 85 29 135/74 (94) 81 07/01/20 22:00 30 Mechanical Ventilator 100 07/01/20 22:00 30 88/64 Mechanical Ventilator 100 07/01/20 22:00 87 31 137/57 (83) 93 07/01/20 21:45 89 31 109/73 (85) 94 07/01/20 21:30 89 30 135/57 (83) 94 07/01/20 21:15 91 30 100/57 (71) 95 07/01/20 21:00 98.9 95 30 88/64 (72) 89 07/01/20 21:00 30 Mechanical Ventilator 100 07/01/20 21:00 30 88/64 Mechanical Ventilator 100 07/01/20 21:00 90 98/57 07/01/20 20:45 93 24 116/64 (81) 84 07/01/20 20:30 96 27 143/66 (91) 88 07/01/20 20:15 102 30 122/73 (89) 87 07/01/20 20:00 Mechanical Ventilator Mechanical Ventilator 07/01/20 20:00 100 31 130/73 (92) 86 07/01/20 20:00 100 07/01/20 20:00 32 Mechanical Ventilator 100 07/01/20 20:00 32 90/61 Mechanical Ventilator 100 07/01/20 19:45 101 30 131/84 (100) 89 07/01/20 19:36 100 07/01/20 19:30 103 31 108/82 (91) 92 07/01/20 19:15 105 32 90/61 (71) 88 07/01/20 19:00 101 30 90 07/01/20 19:00 98.5 106 33 90/59 (69) 89 07/01/20 19:00 32 Mechanical Ventilator 100 07/01/20 19:00 30 130/73 Mechanical Ventilator 100 07/01/20 18:00 34 07/01/20 18:00 112 34 135/69 (91) 83 07/01/20 17:00 137 36 171/97 (121) 96 07/01/20 17:00 30 07/01/20 16:00 90 07/01/20 16:00 109 07/01/20 16:00 33 07/01/20 16:00 100.9 108 26 146/77 (100) 96 07/01/20 16:00 Mechanical Ventilator Mechanical Ventilator 07/01/20 15:41 110 33 90 07/01/20 15:00 34 07/01/20 15:00 115 30 134/71 (92) 96 07/01/20 14:00 119 31 142/84 (103) 96 07/01/20 14:00 33 07/01/20 13:55 102 33 90 07/01/20 13:45 120 31 152/94 (113) 97 07/01/20 13:30 118 31 144/78 (100) 95 07/01/20 13:15 118 31 129/75 (93) 94 07/01/20 13:00 30 07/01/20 13:00 117 31 129/75 (93) 96 07/01/20 13:00 116 32 151/81 (104) 94 07/01/20 12:45 111 32 154/95 (114) 96 Intake and Output 07/01/20 07/02/20 19:00 07:00 Intake Total 1277 ml 1396 ml Output Total 330 ml 1060 ml Balance 947 ml 336 ml Intake Free Water 250 ml IV Total 672 ml 596 ml Tube Feeding 605 ml 550 ml Output Urine Total 330 ml 960 ml Chest Tube Drainage Total 100 ml # Bowel Movements 2 Current Medications Medications (Trade) Dose Ordered Sig/Maya Route PRN Reason Start Time Stop Time Status Last Admin Dose Admin Acetaminophen (Tylenol) 500 mg Q4H PRN ORAL Mild Pain (Pain Scale 1-3) 06/18/20 00:15 07/18/20 00:14 06/24/20 17:51 Acetaminophen (Tylenol) 500 mg Q4H PRN ORAL Temp >100.5 06/18/20 00:15 07/18/20 00:14 06/29/20 20:01 Carvedilol (Coreg) 6.25 mg EVERY 12 HOURS ORAL 06/22/20 21:00 07/22/20 20:59 07/01/20 09:00 Cefepime HCl 1 gm/ Dextrose 55 ml @ 110 mls/hr EVERY 12 HOURS IVPB 07/01/20 11:45 07/08/20 11:44 07/02/20 09:00 Chlorhexidine Gluconate (Sissy-Hex 2%) 1 applic DAILY@2000 TOPIC 06/28/20 20:00 09/26/20 19:59 07/01/20 20:10 Dextrose (Dextrose 50%) 25 ml Q30M PRN IV Hypoglycemia 06/18/20 14:15 09/16/20 14:14 Dextrose (Dextrose 50%) 50 ml Q30M PRN IV Hypoglycemia 06/18/20 14:15 09/16/20 14:14 Docusate Sodium (Colace) 100 mg EVERY 8 HOURS NG 07/02/20 14:00 07/28/20 12:59 Fentanyl Citrate 1000 mcg/Sodium Chloride 100 ml @ 1 mls/hr Q24H IV 07/01/20 22:30 07/03/20 22:29 07/02/20 06:10 Furosemide (Lasix) 40 mg DAILY IV 06/28/20 17:45 07/28/20 16:59 07/02/20 09:00 Haloperidol Lactate (Haldol) 10 mg Q6H PRN IM Agitation 06/23/20 11:30 08/07/20 11:29 06/23/20 11:34 Heparin Sodium/ Sodium Chloride (Heparin 1000 units/500ml Premix) 1,000 unit NEEDED PRN IV PICC LINE PLACEMENT 06/28/20 20:00 Insulin Aspart (NovoLOG) while NPO Q6HR SUBQ 06/18/20 18:00 09/16/20 17:59 07/02/20 00:40 Midazolam HCl 100 ml @ 0 mls/hr Q24H PRN IV To Patient Comfort 07/02/20 05:15 07/04/20 05:14 Pantoprazole (Protonix) 40 mg EVERY 12 HOURS IVP 06/18/20 21:00 07/18/20 20:59 07/02/20 09:00 Potassium Phosphate 20 mm/ Sodium Chloride 281.6667 ml @ 46.944 m... ONCE ONCE IV 07/02/20 08:30 07/02/20 14:29 07/02/20 08:30 Sodium Chloride 1,000 ml @ 50 mls/hr Q20H IV 06/26/20 08:00 07/26/20 07:59 07/02/20 02:22 Vitamin D (Vitamin D) 2,000 unit DAILY GT 06/29/20 10:30 07/29/20 10:29 07/02/20 09:00 Laboratory Tests 07/01/20 19:31: Arterial Blood pH 7.484H, Arterial Blood Partial Pressure CO2 44.3, Arterial Blood Partial Pressure O2 55.8L, Arterial Blood HCO3 32.5H, Arterial Blood Oxygen Saturation 90.3L, Arterial Blood Base Excess 8.2H, Amrit Test Positive 07/01/20 22:45: Urine Color Yellow, Urine Appearance Clear, Urine pH 6, Urine Specific Antelope 1.020, Urine Protein 2+H, Urine Glucose (UA) Negative, Urine Ketones 1+H, Urine Blood 5+H, Urine Nitrite Negative, Urine Bilirubin 1+H, Urine Ictotest Negative, Urine Urobilinogen 4H, Urine Leukocyte Esterase 1+H, Urine RBC TntcH, Urine WBC 2-4, Urine Squamous Epithelial Cells Few, Urine Bacteria Few, Urine Mucus FewH 07/02/20 04:45: White Blood Count 7.9, Red Blood Count 3.32L, Hemoglobin 10.1L, Hematocrit 31.5L , Mean Corpuscular Volume 95, Mean Corpuscular Hemoglobin 30.3, Mean Corpuscular Hemoglobin Concent 32.0, Red Cell Distribution Width 14.7, Platelet Count 91L, Mean Platelet Volume 8.8, Neutrophils (%) (Auto) , Lymphocytes (%) (Auto) , Monocytes (%) (Auto) , Eosinophils (%) (Auto) , Basophils (%) (Auto) , Sodium Level 150H, Potassium Level 3.5, Chloride Level 112H, Carbon Dioxide Level 36H, Anion Gap 2L, Blood Urea Nitrogen 24H, Creatinine 0.4L, Estimat Glomerular Filtration Rate > 60, Glucose Level 90, Calcium Level 7.3L, Phosphorus Level 2.4L, Magnesium Level 2.0, Total Bilirubin 0.6, Aspartate Amino Transf (AST/SGOT) 54H, Alanine Aminotransferase (ALT/SGPT) 56, Alkaline Phosphatase 82, Total Protein 5.1L, Albumin 1.2L, Globulin 3.9, Albumin/Globulin Ratio 0.3L Height (Feet): 5 Height (Inches): 2.00 Weight (Pounds): 138 General Appearance: no apparent distress EENT: other - Trach to vent Cardiovascular: tachycardia Respiratory/Chest: decreased breath sounds Abdomen: soft Raza De Jesus MD Jul 02, 2020 12:41
--- NOTE | 2020-07-02 13:35 | Surgery Progress Note ---
Surgery Progress Note Subjective Procedure Performed 1. right chest tube insertion 2. left chest tube insertion Additional Comments Patient seen exam bedside. Worsening. Declining. Desaturating. Chest tubes functional imaging reviewed. Prognosis guarded Objective Last 24 Hour Vital Signs Date Time Temp Pulse Resp B/P (MAP) Pulse Ox O2 Delivery O2 Flow Rate FiO2 07/02/20 12:00 100 07/02/20 12:00 90 07/02/20 12:00 87 24 148/72 (97) 99 07/02/20 12:00 Mechanical Ventilator Mechanical Ventilator 07/02/20 11:45 86 20 139/71 (93) 99 07/02/20 11:30 90 28 100 07/02/20 11:30 86 26 140/77 (98) 90 07/02/20 11:15 86 27 152/80 (104) 66 07/02/20 11:00 83 27 157/71 (99) 89 07/02/20 10:45 83 26 150/68 (95) 92 07/02/20 10:30 83 25 143/73 (96) 98 07/02/20 10:15 87 27 133/72 (92) 98 07/02/20 10:00 87 26 127/73 (91) 97 07/02/20 09:45 88 28 131/70 (90) 97 07/02/20 09:30 88 31 149/76 (100) 97 07/02/20 09:15 95 28 105/56 (72) 92 07/02/20 09:00 93 29 126/65 (85) 87 07/02/20 09:00 80 121/63 07/02/20 08:45 88 32 127/69 (88) 89 07/02/20 08:30 93 29 117/61 (79) 92 07/02/20 08:15 96 29 138/60 (86) 90 07/02/20 08:15 96 29 138/60 (86) 90 07/02/20 08:00 95 30 130/58 (82) 90 07/02/20 08:00 95 30 130/58 (82) 90 07/02/20 08:00 90 07/02/20 08:00 100 07/02/20 08:00 Mechanical Ventilator Mechanical Ventilator 07/02/20 07:45 97 27 135/65 (88) 90 07/02/20 07:30 92 28 133/51 (78) 94 07/02/20 07:15 88 27 121/56 (77) 94 07/02/20 07:10 93 28 100 07/02/20 07:00 84 29 96/47 (63) 94 07/02/20 07:00 84 29 96/47 (63) 94 07/02/20 06:45 80 28 97/48 (64) 93 07/02/20 06:45 80 28 97/48 (64) 93 07/02/20 06:30 77 27 102/47 (65) 94 07/02/20 06:30 77 27 102/47 (65) 94 07/02/20 06:30 77 27 102/47 (65) 94 07/02/20 06:15 74 25 96/50 (65) 71 07/02/20 06:15 74 25 96/50 (65) 71 07/02/20 06:15 74 25 96/50 (65) 71 07/02/20 06:10 26 118/60 Mechanical Ventilator 100 07/02/20 06:00 26 Mechanical Ventilator 100 07/02/20 06:00 26 98/63 Mechanical Ventilator 100 07/02/20 06:00 71 24 118/60 (79) 81 07/02/20 06:00 98.0 71 24 118/60 (79) 81 07/02/20 06:00 71 24 118/60 (79) 81 07/02/20 05:45 66 22 145/64 (91) 85 07/02/20 05:45 66 22 145/64 (91) 85 07/02/20 05:30 76 26 97/50 (66) 98 07/02/20 05:30 76 26 97/50 (66) 98 07/02/20 05:15 78 24 94/55 (68) 100 07/02/20 05:15 78 24 94/55 (68) 100 07/02/20 05:00 76 26 110/50 (70) 99 07/02/20 05:00 26 Mechanical Ventilator 100 07/02/20 05:00 26 110/60 Mechanical Ventilator 100 07/02/20 05:00 76 26 110/50 (70) 99 07/02/20 04:45 78 27 97/48 (64) 98 07/02/20 04:30 79 27 96/50 (65) 98 07/02/20 04:15 81 27 100/51 (67) 99 07/02/20 04:00 98.3 83 28 100/52 (68) 98 07/02/20 04:00 Mechanical Ventilator Mechanical Ventilator 07/02/20 04:00 28 Mechanical Ventilator 100 07/02/20 04:00 28 95/52 Mechanical Ventilator 100 07/02/20 04:00 100 07/02/20 03:45 84 27 95/52 (66) 97 07/02/20 03:30 87 26 95/52 (66) 99 07/02/20 03:15 89 26 95/56 (69) 98 07/02/20 03:03 90 07/02/20 03:00 99.5 90 28 87/52 (64) 98 07/02/20 03:00 28 Mechanical Ventilator 100 07/02/20 03:00 27 87/52 Mechanical Ventilator 100 07/02/20 02:45 95 28 110/57 (74) 100 07/02/20 02:30 95 28 97/57 (70) 95 07/02/20 02:15 94 28 102/61 (75) 93 07/02/20 02:00 94 28 113/53 (73) 92 07/02/20 02:00 28 Mechanical Ventilator 100 07/02/20 02:00 30 87/52 Mechanical Ventilator 100 07/02/20 01:45 92 28 106/59 (75) 89 07/02/20 01:40 89 31 90 07/02/20 01:30 91 28 107/59 (75) 90 07/02/20 01:15 88 27 107/57 (74) 93 07/02/20 01:09 32 107/57 Mechanical Ventilator 100 07/02/20 01:00 87 30 139/76 (97) 89 07/02/20 01:00 27 Mechanical Ventilator 100 07/02/20 00:45 89 29 118/68 (85) 94 07/02/20 00:40 30 Mechanical Ventilator 100 07/02/20 00:30 89 30 128/13 (51) 95 07/02/20 00:15 89 30 127/59 (81) 95 07/02/20 00:00 Mechanical Ventilator Mechanical Ventilator 07/02/20 00:00 30 Mechanical Ventilator 100 07/02/20 00:00 32 127/59 Mechanical Ventilator 100 07/02/20 00:00 100 07/02/20 00:00 98.4 89 29 113/64 (80) 96 07/01/20 23:45 90 30 164/63 (96) 93 07/01/20 23:30 86 29 143/62 (89) 94 07/01/20 23:24 87 07/01/20 23:15 84 29 129/84 (99) 93 07/01/20 23:00 83 30 113/79 (90) 94 07/01/20 23:00 30 Mechanical Ventilator 100 07/01/20 23:00 30 137/57 Mechanical Ventilator 100 07/01/20 22:45 85 29 140/67 (91) 93 07/01/20 22:30 87 31 144/66 (92) 83 07/01/20 22:15 85 29 135/74 (94) 81 07/01/20 22:00 30 Mechanical Ventilator 100 07/01/20 22:00 30 88/64 Mechanical Ventilator 100 07/01/20 22:00 87 31 137/57 (83) 93 07/01/20 21:45 89 31 109/73 (85) 94 07/01/20 21:30 89 30 135/57 (83) 94 07/01/20 21:15 91 30 100/57 (71) 95 07/01/20 21:00 98.9 95 30 88/64 (72) 89 07/01/20 21:00 30 Mechanical Ventilator 100 07/01/20 21:00 30 88/64 Mechanical Ventilator 100 07/01/20 21:00 90 98/57 07/01/20 20:45 93 24 116/64 (81) 84 07/01/20 20:30 96 27 143/66 (91) 88 07/01/20 20:15 102 30 122/73 (89) 87 07/01/20 20:00 Mechanical Ventilator Mechanical Ventilator 07/01/20 20:00 100 31 130/73 (92) 86 07/01/20 20:00 100 07/01/20 20:00 32 Mechanical Ventilator 100 07/01/20 20:00 32 90/61 Mechanical Ventilator 100 07/01/20 19:45 101 30 131/84 (100) 89 07/01/20 19:36 100 07/01/20 19:30 103 31 108/82 (91) 92 07/01/20 19:15 105 32 90/61 (71) 88 07/01/20 19:00 101 30 90 07/01/20 19:00 98.5 106 33 90/59 (69) 89 07/01/20 19:00 32 Mechanical Ventilator 100 07/01/20 19:00 30 130/73 Mechanical Ventilator 100 07/01/20 18:00 34 07/01/20 18:00 112 34 135/69 (91) 83 07/01/20 17:00 137 36 171/97 (121) 96 07/01/20 17:00 30 07/01/20 16:00 90 07/01/20 16:00 109 07/01/20 16:00 33 07/01/20 16:00 100.9 108 26 146/77 (100) 96 07/01/20 16:00 Mechanical Ventilator Mechanical Ventilator 07/01/20 15:41 110 33 90 07/01/20 15:00 34 07/01/20 15:00 115 30 134/71 (92) 96 07/01/20 14:00 119 31 142/84 (103) 96 07/01/20 14:00 33 07/01/20 13:55 102 33 90 07/01/20 13:45 120 31 152/94 (113) 97 I&O Intake and Output 07/01/20 07/02/20 19:00 07:00 Intake Total 1277 ml 1396 ml Output Total 330 ml 1060 ml Balance 947 ml 336 ml Intake Free Water 250 ml IV Total 672 ml 596 ml Tube Feeding 605 ml 550 ml Output Urine Total 330 ml 960 ml Chest Tube Drainage Total 100 ml # Bowel Movements 2 Dressing: saturated Drains: other Cardiovascular: RSR Respiratory: decreased breath sounds Abdomen: soft, non-tender, present bowel sounds, non-distended Extremities: no tenderness, no cyanosis Laboratory Tests Test 07/01/20 19:31 07/01/20 22:45 07/02/20 04:45 Arterial Blood pH 7.484 (7.350-7.450) Arterial Blood Partial Pressure CO2 44.3 mmHg (35.0-45.0) Arterial Blood Partial Pressure O2 55.8 mmHg (75.0-100.0) L Arterial Blood HCO3 32.5 mmol/L (22.0-26.0) H Arterial Blood Oxygen Saturation 90.3 % (95-100) L Arterial Blood Base Excess 8.2 (-2-2) H Amrit Test Positive Urine Color Yellow Urine Appearance Clear Urine pH 6 (4.5-8.0) Urine Specific [place] 1.020 (1.005-1.035) Urine Protein 2+ (NEGATIVE) H Urine Glucose (UA) Negative (NEGATIVE) Urine Ketones 1+ (NEGATIVE) H Urine Blood 5+ (NEGATIVE) H Urine Nitrite Negative (NEGATIVE) Urine Bilirubin 1+ (NEGATIVE) H Urine Ictotest Negative (NEGATIVE) Urine Urobilinogen 4 MG/DL (0.0-1.0) H Urine Leukocyte Esterase 1+ (NEGATIVE) H Urine RBC Tntc /HPF (0 - 2) H Urine WBC 2-4 /HPF (0 - 2) Urine Squamous Epithelial Cells Few /LPF (NONE/OCC) Urine Bacteria Few /HPF (NONE) Urine Mucus Few /LPF (NONE/OCC) H White Blood Count 7.9 K/UL (4.8-10.8) Red Blood Count 3.32 M/UL (4.20-5.40) L Hemoglobin 10.1 G/DL (12.0-16.0) L Hematocrit 31.5 % (37.0-47.0) L Mean Corpuscular Volume 95 FL (80-99) Mean Corpuscular Hemoglobin 30.3 PG (27.0-31.0) Mean Corpuscular Hemoglobin Concent 32.0 G/DL (32.0-36.0) Red Cell Distribution Width 14.7 % (11.6-14.8) Platelet Count 91 K/UL (150-450) L Mean Platelet Volume 8.8 FL (6.5-10.1) Neutrophils (%) (Auto) % (45.0-75.0) Lymphocytes (%) (Auto) % (20.0-45.0) Monocytes (%) (Auto) % (1.0-10.0) Eosinophils (%) (Auto) % (0.0-3.0) Basophils (%) (Auto) % (0.0-2.0) Sodium Level 150 MMOL/L (136-145) H Potassium Level 3.5 MMOL/L (3.5-5.1) Chloride Level 112 MMOL/L (98-107) H Carbon Dioxide Level 36 MMOL/L (21-32) H Anion Gap 2 mmol/L (5-15) L Blood Urea Nitrogen 24 mg/dL (7-18) H Creatinine 0.4 MG/DL (0.55-1.30) L Estimat Glomerular Filtration Rate > 60 mL/min (>60) Glucose Level 90 MG/DL (74-106) Calcium Level 7.3 MG/DL (8.5-10.1) L Phosphorus Level 2.4 MG/DL (2.5-4.9) L Magnesium Level 2.0 MG/DL (1.8-2.4) Total Bilirubin 0.6 MG/DL (0.2-1.0) Aspartate Amino Transf (AST/SGOT) 54 U/L (15-37) H Alanine Aminotransferase (ALT/SGPT) 56 U/L (12-78) Alkaline Phosphatase 82 U/L (46-116) Total Protein 5.1 G/DL (6.4-8.2) L Albumin 1.2 G/DL (3.4-5.0) L Globulin 3.9 g/dL Albumin/Globulin Ratio 0.3 (1.0-2.7) L Plan Problems: (1) Renal insufficiency (2) Elevated d-dimer (3) Dehydration (4) LEONARDO (acute kidney injury) (5) DMII (diabetes mellitus, type 2) (6) Hypoxia (7) Pneumonia due to COVID-19 virus (8) PNA (pneumonia) (9) Pneumothorax Assessment & Plan: Bilateral pneumothorax status post bilateral chest tubes. Still on significant vent support. leak performed. Continue weaning vent. Continue with chest tubes. Will monitor and manage chest tubes accordingly. Thank you for let me to participate in patient's care Continue bilateral chest tubes on suction the airleak is worse her peak pressures are high prognosis overall is guarded. Imaging reviewed Bilateral air leaks noted high pressures continue chest tube suction Elpidio Frazier Jul 02, 2020 13:35
--- NOTE | 2020-07-02 14:43 | NUR ---
CASE MANAGEMENT:REVIEW 07/02/20 SI: COVID PNEUMONIA ~ INTUBATED. PNTHX W/BILATERAL CHEST TUBE 98.0 96 29 138/60 90% ON VENT SUPPORT W/100% FIO2 IS: FENTANYL GTT VERSED GTT PRN IV CEFEPIME Q12 IV LASIX QD IVF@50/HR COREG NG Q12H IV PROTONIX Q12H LOVENOX SQ Q12H : ICU STATUS DCP: FROM HOME PLAN: SUPPORTIVE CARE BILATERAL CHEST TUBES TO SUCTION
--- NOTE | 2020-07-02 14:43 | Infectious Diseases Prog Note ---
Assessment/Plan Assessment/Plan A; Fever Sepsis COVID19 pneumonia Hypoxic respiratory failure Acute kidney injury, resolving Hyperglycemia, DM type 2 Bilateral pneumothorax Leukocytosis resolved Anemia P; Finished Remdesivir & Dexamethasone course Continue Cefepime Poor prognosis Subjective ROS Limited/Unobtainable: Yes Allergies: Coded Allergies: No Known Allergies (Unverified , 06/17/20) Objective Last 24 Hour Vital Signs Date Time Temp Pulse Resp B/P (MAP) Pulse Ox O2 Delivery O2 Flow Rate FiO2 07/02/20 14:00 90 23 130/69 (89) 98 07/02/20 13:45 94 28 141/74 (96) 92 07/02/20 13:30 79 27 150/79 (102) 84 07/02/20 13:15 87 17 143/74 (97) 99 07/02/20 13:00 85 17 148/75 (99) 100 07/02/20 12:52 78 29 165/79 (107) 75 07/02/20 12:45 78 29 162/87 (112) 69 07/02/20 12:30 156/85 (108) 07/02/20 12:00 100 07/02/20 12:00 90 07/02/20 12:00 87 24 148/72 (97) 99 07/02/20 12:00 87 24 148/72 (97) 99 07/02/20 12:00 Mechanical Ventilator Mechanical Ventilator 07/02/20 11:45 86 20 139/71 (93) 99 07/02/20 11:30 90 28 100 07/02/20 11:30 86 26 140/77 (98) 90 07/02/20 11:15 86 27 152/80 (104) 66 07/02/20 11:00 83 27 157/71 (99) 89 07/02/20 10:45 83 26 150/68 (95) 92 07/02/20 10:30 83 25 143/73 (96) 98 07/02/20 10:15 87 27 133/72 (92) 98 07/02/20 10:00 87 26 127/73 (91) 97 07/02/20 09:45 88 28 131/70 (90) 97 07/02/20 09:30 88 31 149/76 (100) 97 07/02/20 09:15 95 28 105/56 (72) 92 07/02/20 09:00 93 29 126/65 (85) 87 07/02/20 09:00 80 121/63 07/02/20 08:45 88 32 127/69 (88) 89 07/02/20 08:30 93 29 117/61 (79) 92 07/02/20 08:15 96 29 138/60 (86) 90 07/02/20 08:15 96 29 138/60 (86) 90 07/02/20 08:00 95 30 130/58 (82) 90 07/02/20 08:00 95 30 130/58 (82) 90 07/02/20 08:00 90 07/02/20 08:00 100 07/02/20 08:00 Mechanical Ventilator Mechanical Ventilator 07/02/20 07:45 97 27 135/65 (88) 90 07/02/20 07:30 92 28 133/51 (78) 94 07/02/20 07:15 88 27 121/56 (77) 94 07/02/20 07:10 93 28 100 07/02/20 07:00 84 29 96/47 (63) 94 07/02/20 07:00 84 29 96/47 (63) 94 07/02/20 06:45 80 28 97/48 (64) 93 07/02/20 06:45 80 28 97/48 (64) 93 07/02/20 06:30 77 27 102/47 (65) 94 07/02/20 06:30 77 27 102/47 (65) 94 07/02/20 06:30 77 27 102/47 (65) 94 07/02/20 06:15 74 25 96/50 (65) 71 07/02/20 06:15 74 25 96/50 (65) 71 07/02/20 06:15 74 25 96/50 (65) 71 07/02/20 06:10 26 118/60 Mechanical Ventilator 100 07/02/20 06:00 26 Mechanical Ventilator 100 07/02/20 06:00 26 98/63 Mechanical Ventilator 100 07/02/20 06:00 71 24 118/60 (79) 81 07/02/20 06:00 98.0 71 24 118/60 (79) 81 07/02/20 06:00 71 24 118/60 (79) 81 07/02/20 05:45 66 22 145/64 (91) 85 07/02/20 05:45 66 22 145/64 (91) 85 07/02/20 05:30 76 26 97/50 (66) 98 07/02/20 05:30 76 26 97/50 (66) 98 07/02/20 05:15 78 24 94/55 (68) 100 07/02/20 05:15 78 24 94/55 (68) 100 07/02/20 05:00 76 26 110/50 (70) 99 07/02/20 05:00 26 Mechanical Ventilator 100 07/02/20 05:00 26 110/60 Mechanical Ventilator 100 07/02/20 05:00 76 26 110/50 (70) 99 07/02/20 04:45 78 27 97/48 (64) 98 07/02/20 04:30 79 27 96/50 (65) 98 07/02/20 04:15 81 27 100/51 (67) 99 07/02/20 04:00 98.3 83 28 100/52 (68) 98 07/02/20 04:00 Mechanical Ventilator Mechanical Ventilator 07/02/20 04:00 28 Mechanical Ventilator 100 07/02/20 04:00 28 95/52 Mechanical Ventilator 100 07/02/20 04:00 100 07/02/20 03:45 84 27 95/52 (66) 97 07/02/20 03:30 87 26 95/52 (66) 99 07/02/20 03:15 89 26 95/56 (69) 98 07/02/20 03:03 90 07/02/20 03:00 99.5 90 28 87/52 (64) 98 07/02/20 03:00 28 Mechanical Ventilator 100 07/02/20 03:00 27 87/52 Mechanical Ventilator 100 07/02/20 02:45 95 28 110/57 (74) 100 07/02/20 02:30 95 28 97/57 (70) 95 07/02/20 02:15 94 28 102/61 (75) 93 07/02/20 02:00 94 28 113/53 (73) 92 07/02/20 02:00 28 Mechanical Ventilator 100 07/02/20 02:00 30 87/52 Mechanical Ventilator 100 07/02/20 01:45 92 28 106/59 (75) 89 07/02/20 01:40 89 31 90 07/02/20 01:30 91 28 107/59 (75) 90 07/02/20 01:15 88 27 107/57 (74) 93 07/02/20 01:09 32 107/57 Mechanical Ventilator 100 07/02/20 01:00 87 30 139/76 (97) 89 07/02/20 01:00 27 Mechanical Ventilator 100 07/02/20 00:45 89 29 118/68 (85) 94 07/02/20 00:40 30 Mechanical Ventilator 100 07/02/20 00:30 89 30 128/13 (51) 95 07/02/20 00:15 89 30 127/59 (81) 95 07/02/20 00:00 Mechanical Ventilator Mechanical Ventilator 07/02/20 00:00 30 Mechanical Ventilator 100 07/02/20 00:00 32 127/59 Mechanical Ventilator 100 07/02/20 00:00 100 07/02/20 00:00 98.4 89 29 113/64 (80) 96 07/01/20 23:45 90 30 164/63 (96) 93 07/01/20 23:30 86 29 143/62 (89) 94 07/01/20 23:24 87 07/01/20 23:15 84 29 129/84 (99) 93 07/01/20 23:00 83 30 113/79 (90) 94 07/01/20 23:00 30 Mechanical Ventilator 100 07/01/20 23:00 30 137/57 Mechanical Ventilator 100 07/01/20 22:45 85 29 140/67 (91) 93 07/01/20 22:30 87 31 144/66 (92) 83 07/01/20 22:15 85 29 135/74 (94) 81 07/01/20 22:00 30 Mechanical Ventilator 100 07/01/20 22:00 30 88/64 Mechanical Ventilator 100 07/01/20 22:00 87 31 137/57 (83) 93 07/01/20 21:45 89 31 109/73 (85) 94 07/01/20 21:30 89 30 135/57 (83) 94 07/01/20 21:15 91 30 100/57 (71) 95 07/01/20 21:00 98.9 95 30 88/64 (72) 89 07/01/20 21:00 30 Mechanical Ventilator 100 07/01/20 21:00 30 88/64 Mechanical Ventilator 100 07/01/20 21:00 90 98/57 07/01/20 20:45 93 24 116/64 (81) 84 07/01/20 20:30 96 27 143/66 (91) 88 07/01/20 20:15 102 30 122/73 (89) 87 07/01/20 20:00 Mechanical Ventilator Mechanical Ventilator 07/01/20 20:00 100 31 130/73 (92) 86 07/01/20 20:00 100 07/01/20 20:00 32 Mechanical Ventilator 100 07/01/20 20:00 32 90/61 Mechanical Ventilator 100 07/01/20 19:45 101 30 131/84 (100) 89 07/01/20 19:36 100 07/01/20 19:30 103 31 108/82 (91) 92 07/01/20 19:15 105 32 90/61 (71) 88 07/01/20 19:00 101 30 90 07/01/20 19:00 98.5 106 33 90/59 (69) 89 07/01/20 19:00 32 Mechanical Ventilator 100 07/01/20 19:00 30 130/73 Mechanical Ventilator 100 07/01/20 18:00 34 07/01/20 18:00 112 34 135/69 (91) 83 07/01/20 17:00 137 36 171/97 (121) 96 07/01/20 17:00 30 07/01/20 16:00 90 07/01/20 16:00 109 07/01/20 16:00 33 07/01/20 16:00 100.9 108 26 146/77 (100) 96 07/01/20 16:00 Mechanical Ventilator Mechanical Ventilator 07/01/20 15:41 110 33 90 07/01/20 15:00 34 07/01/20 15:00 115 30 134/71 (92) 96 Height (Feet): 5 Height (Inches): 2.00 Weight (Pounds): 138 HEENT: other - orally intubated Respiratory/Chest: other - on ventilator, UNW1=373%, bilateral chest tubes Abdomen: soft, non tender, other - OG tube Neurologic/Psychiatric: unresponsiveness Laboratory Tests Test 07/01/20 19:31 07/01/20 22:45 07/02/20 04:45 Arterial Blood pH 7.484 (7.350-7.450) Arterial Blood Partial Pressure CO2 44.3 mmHg (35.0-45.0) Arterial Blood Partial Pressure O2 55.8 mmHg (75.0-100.0) L Arterial Blood HCO3 32.5 mmol/L (22.0-26.0) H Arterial Blood Oxygen Saturation 90.3 % (95-100) L Arterial Blood Base Excess 8.2 (-2-2) H Amrit Test Positive Urine Color Yellow Urine Appearance Clear Urine pH 6 (4.5-8.0) Urine Specific [place] 1.020 (1.005-1.035) Urine Protein 2+ (NEGATIVE) H Urine Glucose (UA) Negative (NEGATIVE) Urine Ketones 1+ (NEGATIVE) H Urine Blood 5+ (NEGATIVE) H Urine Nitrite Negative (NEGATIVE) Urine Bilirubin 1+ (NEGATIVE) H Urine Ictotest Negative (NEGATIVE) Urine Urobilinogen 4 MG/DL (0.0-1.0) H Urine Leukocyte Esterase 1+ (NEGATIVE) H Urine RBC Tntc /HPF (0 - 2) H Urine WBC 2-4 /HPF (0 - 2) Urine Squamous Epithelial Cells Few /LPF (NONE/OCC) Urine Bacteria Few /HPF (NONE) Urine Mucus Few /LPF (NONE/OCC) H White Blood Count 7.9 K/UL (4.8-10.8) Red Blood Count 3.32 M/UL (4.20-5.40) L Hemoglobin 10.1 G/DL (12.0-16.0) L Hematocrit 31.5 % (37.0-47.0) L Mean Corpuscular Volume 95 FL (80-99) Mean Corpuscular Hemoglobin 30.3 PG (27.0-31.0) Mean Corpuscular Hemoglobin Concent 32.0 G/DL (32.0-36.0) Red Cell Distribution Width 14.7 % (11.6-14.8) Platelet Count 91 K/UL (150-450) L Mean Platelet Volume 8.8 FL (6.5-10.1) Neutrophils (%) (Auto) % (45.0-75.0) Lymphocytes (%) (Auto) % (20.0-45.0) Monocytes (%) (Auto) % (1.0-10.0) Eosinophils (%) (Auto) % (0.0-3.0) Basophils (%) (Auto) % (0.0-2.0) Sodium Level 150 MMOL/L (136-145) H Potassium Level 3.5 MMOL/L (3.5-5.1) Chloride Level 112 MMOL/L (98-107) H Carbon Dioxide Level 36 MMOL/L (21-32) H Anion Gap 2 mmol/L (5-15) L Blood Urea Nitrogen 24 mg/dL (7-18) H Creatinine 0.4 MG/DL (0.55-1.30) L Estimat Glomerular Filtration Rate > 60 mL/min (>60) Glucose Level 90 MG/DL (74-106) Calcium Level 7.3 MG/DL (8.5-10.1) L Phosphorus Level 2.4 MG/DL (2.5-4.9) L Magnesium Level 2.0 MG/DL (1.8-2.4) Total Bilirubin 0.6 MG/DL (0.2-1.0) Aspartate Amino Transf (AST/SGOT) 54 U/L (15-37) H Alanine Aminotransferase (ALT/SGPT) 56 U/L (12-78) Alkaline Phosphatase 82 U/L (46-116) Total Protein 5.1 G/DL (6.4-8.2) L Albumin 1.2 G/DL (3.4-5.0) L Globulin 3.9 g/dL Albumin/Globulin Ratio 0.3 (1.0-2.7) L Current Medications Medications (Trade) Dose Ordered Sig/Maya Route PRN Reason Start Time Stop Time Status Last Admin Dose Admin Acetaminophen (Tylenol) 500 mg Q4H PRN ORAL Mild Pain (Pain Scale 1-3) 06/18/20 00:15 07/18/20 00:14 06/24/20 17:51 Acetaminophen (Tylenol) 500 mg Q4H PRN ORAL Temp >100.5 06/18/20 00:15 07/18/20 00:14 06/29/20 20:01 Carvedilol (Coreg) 6.25 mg EVERY 12 HOURS ORAL 06/22/20 21:00 07/22/20 20:59 07/01/20 09:00 Cefepime HCl 1 gm/ Dextrose 55 ml @ 110 mls/hr EVERY 12 HOURS IVPB 07/01/20 11:45 07/08/20 11:44 07/02/20 09:00 Chlorhexidine Gluconate (Sissy-Hex 2%) 1 applic DAILY@2000 TOPIC 06/28/20 20:00 09/26/20 19:59 07/01/20 20:10 Dextrose (Dextrose 50%) 25 ml Q30M PRN IV Hypoglycemia 06/18/20 14:15 09/16/20 14:14 Dextrose (Dextrose 50%) 50 ml Q30M PRN IV Hypoglycemia 06/18/20 14:15 09/16/20 14:14 Docusate Sodium (Colace) 100 mg EVERY 8 HOURS NG 07/02/20 14:00 07/28/20 12:59 Fentanyl Citrate 1000 mcg/Sodium Chloride 100 ml @ 1 mls/hr Q24H IV 07/01/20 22:30 07/03/20 22:29 07/02/20 06:10 Furosemide (Lasix) 40 mg DAILY IV 06/28/20 17:45 07/28/20 16:59 07/02/20 09:00 Haloperidol Lactate (Haldol) 10 mg Q6H PRN IM Agitation 06/23/20 11:30 08/07/20 11:29 06/23/20 11:34 Heparin Sodium/ Sodium Chloride (Heparin 1000 units/500ml Premix) 1,000 unit NEEDED PRN IV PICC LINE PLACEMENT 06/28/20 20:00 Insulin Aspart (NovoLOG) while NPO Q6HR SUBQ 06/18/20 18:00 09/16/20 17:59 07/02/20 00:40 Midazolam HCl 100 ml @ 0 mls/hr Q24H PRN IV To Patient Comfort 07/02/20 05:15 07/04/20 05:14 Pantoprazole (Protonix) 40 mg EVERY 12 HOURS IVP 06/18/20 21:00 07/18/20 20:59 07/02/20 09:00 Sodium Chloride 1,000 ml @ 50 mls/hr Q20H IV 06/26/20 08:00 07/26/20 07:59 07/02/20 02:22 Vitamin D (Vitamin D) 2,000 unit DAILY GT 06/29/20 10:30 07/29/20 10:29 07/02/20 09:00 Raji Turpin MD Jul 02, 2020 14:43
--- NOTE | 2020-07-02 14:51 | NUR ---
[employer]/REVIEW FAXED TO [facility] T:[phone] F: [phone]
--- NOTE | 2020-07-02 15:13 | Diagnostic Imaging Report ---
Indication: Cough Technique: One view of the chest Comparison: 07/01/2020 Findings: Bilateral chest tubes remain. Left pneumothorax appears smaller, now minimal. Small right pneumothorax is probably unchanged. Endotracheal and orogastric tubes remain in stable satisfactory positions. There appears to be decreased subcutaneous emphysema. The heart size is normal Impression: Decreased subcutaneous emphysema Smaller left pneumothorax Other stable findings as described
--- NOTE | 2020-07-02 15:22 | Cardiac Electrophysiology PN ---
Assessment/Plan Assessment/Plan 1. Respiratory failure likely due to COVID pneumonia. Intubated on 100% Fio2. Echocardiogram showed ejection fraction within normal range. 2. Bilateral pneumothoraces. S/P bilateral chest tube placement with minimal drainage 3. Troponin elevation. Levels are low and flat could be demand ischemia vs Renal failure EKG shows sinus tachycardia at 110 beats per minute. 4. Hypernatremia with sodium of 155. Resolved 5. Volume overload. On Lasix 40 iv daily 6. COVID-19 positive and is in isolation, on dexamethasone, completed Remdesivir. 7. Hypertension, on Coreg 6.25 mg b.i.d. and Lasix DW RN Subjective Subjective Intubated in ICU on Fentanyl drip and Versed drip. Chest tubes minimal drainage On 100% Fio2, PEEP 8 . Off pressors Objective Last 24 Hour Vital Signs Date Time Temp Pulse Resp B/P (MAP) Pulse Ox O2 Delivery O2 Flow Rate FiO2 07/02/20 14:00 90 23 130/69 (89) 98 07/02/20 13:45 94 28 141/74 (96) 92 07/02/20 13:30 79 27 150/79 (102) 84 07/02/20 13:15 87 17 143/74 (97) 99 07/02/20 13:00 85 17 148/75 (99) 100 07/02/20 12:52 78 29 165/79 (107) 75 07/02/20 12:45 78 29 162/87 (112) 69 07/02/20 12:30 156/85 (108) 07/02/20 12:00 100 07/02/20 12:00 90 07/02/20 12:00 87 24 148/72 (97) 99 07/02/20 12:00 87 24 148/72 (97) 99 07/02/20 12:00 Mechanical Ventilator Mechanical Ventilator 07/02/20 11:45 86 20 139/71 (93) 99 07/02/20 11:30 90 28 100 07/02/20 11:30 86 26 140/77 (98) 90 07/02/20 11:15 86 27 152/80 (104) 66 07/02/20 11:00 83 27 157/71 (99) 89 07/02/20 10:45 83 26 150/68 (95) 92 07/02/20 10:30 83 25 143/73 (96) 98 07/02/20 10:15 87 27 133/72 (92) 98 07/02/20 10:00 87 26 127/73 (91) 97 07/02/20 09:45 88 28 131/70 (90) 97 07/02/20 09:30 88 31 149/76 (100) 97 07/02/20 09:15 95 28 105/56 (72) 92 07/02/20 09:00 93 29 126/65 (85) 87 07/02/20 09:00 80 121/63 07/02/20 08:45 88 32 127/69 (88) 89 07/02/20 08:30 93 29 117/61 (79) 92 07/02/20 08:15 96 29 138/60 (86) 90 07/02/20 08:15 96 29 138/60 (86) 90 07/02/20 08:00 95 30 130/58 (82) 90 07/02/20 08:00 95 30 130/58 (82) 90 07/02/20 08:00 90 07/02/20 08:00 100 07/02/20 08:00 Mechanical Ventilator Mechanical Ventilator 07/02/20 07:45 97 27 135/65 (88) 90 07/02/20 07:30 92 28 133/51 (78) 94 07/02/20 07:15 88 27 121/56 (77) 94 07/02/20 07:10 93 28 100 07/02/20 07:00 84 29 96/47 (63) 94 07/02/20 07:00 84 29 96/47 (63) 94 07/02/20 06:45 80 28 97/48 (64) 93 07/02/20 06:45 80 28 97/48 (64) 93 07/02/20 06:30 77 27 102/47 (65) 94 07/02/20 06:30 77 27 102/47 (65) 94 07/02/20 06:30 77 27 102/47 (65) 94 07/02/20 06:15 74 25 96/50 (65) 71 07/02/20 06:15 74 25 96/50 (65) 71 07/02/20 06:15 74 25 96/50 (65) 71 07/02/20 06:10 26 118/60 Mechanical Ventilator 100 07/02/20 06:00 26 Mechanical Ventilator 100 07/02/20 06:00 26 98/63 Mechanical Ventilator 100 07/02/20 06:00 71 24 118/60 (79) 81 07/02/20 06:00 98.0 71 24 118/60 (79) 81 07/02/20 06:00 71 24 118/60 (79) 81 07/02/20 05:45 66 22 145/64 (91) 85 07/02/20 05:45 66 22 145/64 (91) 85 07/02/20 05:30 76 26 97/50 (66) 98 07/02/20 05:30 76 26 97/50 (66) 98 07/02/20 05:15 78 24 94/55 (68) 100 07/02/20 05:15 78 24 94/55 (68) 100 07/02/20 05:00 76 26 110/50 (70) 99 07/02/20 05:00 26 Mechanical Ventilator 100 07/02/20 05:00 26 110/60 Mechanical Ventilator 100 07/02/20 05:00 76 26 110/50 (70) 99 07/02/20 04:45 78 27 97/48 (64) 98 07/02/20 04:30 79 27 96/50 (65) 98 07/02/20 04:15 81 27 100/51 (67) 99 07/02/20 04:00 98.3 83 28 100/52 (68) 98 07/02/20 04:00 Mechanical Ventilator Mechanical Ventilator 07/02/20 04:00 28 Mechanical Ventilator 100 07/02/20 04:00 28 95/52 Mechanical Ventilator 100 07/02/20 04:00 100 07/02/20 03:45 84 27 95/52 (66) 97 07/02/20 03:30 87 26 95/52 (66) 99 07/02/20 03:15 89 26 95/56 (69) 98 07/02/20 03:03 90 07/02/20 03:00 99.5 90 28 87/52 (64) 98 07/02/20 03:00 28 Mechanical Ventilator 100 07/02/20 03:00 27 87/52 Mechanical Ventilator 100 07/02/20 02:45 95 28 110/57 (74) 100 07/02/20 02:30 95 28 97/57 (70) 95 07/02/20 02:15 94 28 102/61 (75) 93 07/02/20 02:00 94 28 113/53 (73) 92 07/02/20 02:00 28 Mechanical Ventilator 100 07/02/20 02:00 30 87/52 Mechanical Ventilator 100 07/02/20 01:45 92 28 106/59 (75) 89 07/02/20 01:40 89 31 90 07/02/20 01:30 91 28 107/59 (75) 90 07/02/20 01:15 88 27 107/57 (74) 93 07/02/20 01:09 32 107/57 Mechanical Ventilator 100 07/02/20 01:00 87 30 139/76 (97) 89 07/02/20 01:00 27 Mechanical Ventilator 100 07/02/20 00:45 89 29 118/68 (85) 94 07/02/20 00:40 30 Mechanical Ventilator 100 07/02/20 00:30 89 30 128/13 (51) 95 07/02/20 00:15 89 30 127/59 (81) 95 07/02/20 00:00 Mechanical Ventilator Mechanical Ventilator 07/02/20 00:00 30 Mechanical Ventilator 100 07/02/20 00:00 32 127/59 Mechanical Ventilator 100 07/02/20 00:00 100 07/02/20 00:00 98.4 89 29 113/64 (80) 96 07/01/20 23:45 90 30 164/63 (96) 93 07/01/20 23:30 86 29 143/62 (89) 94 07/01/20 23:24 87 07/01/20 23:15 84 29 129/84 (99) 93 07/01/20 23:00 83 30 113/79 (90) 94 07/01/20 23:00 30 Mechanical Ventilator 100 07/01/20 23:00 30 137/57 Mechanical Ventilator 100 07/01/20 22:45 85 29 140/67 (91) 93 07/01/20 22:30 87 31 144/66 (92) 83 07/01/20 22:15 85 29 135/74 (94) 81 07/01/20 22:00 30 Mechanical Ventilator 100 07/01/20 22:00 30 88/64 Mechanical Ventilator 100 07/01/20 22:00 87 31 137/57 (83) 93 07/01/20 21:45 89 31 109/73 (85) 94 07/01/20 21:30 89 30 135/57 (83) 94 07/01/20 21:15 91 30 100/57 (71) 95 07/01/20 21:00 98.9 95 30 88/64 (72) 89 07/01/20 21:00 30 Mechanical Ventilator 100 07/01/20 21:00 30 88/64 Mechanical Ventilator 100 07/01/20 21:00 90 98/57 07/01/20 20:45 93 24 116/64 (81) 84 07/01/20 20:30 96 27 143/66 (91) 88 07/01/20 20:15 102 30 122/73 (89) 87 07/01/20 20:00 Mechanical Ventilator Mechanical Ventilator 07/01/20 20:00 100 31 130/73 (92) 86 07/01/20 20:00 100 07/01/20 20:00 32 Mechanical Ventilator 100 07/01/20 20:00 32 90/61 Mechanical Ventilator 100 07/01/20 19:45 101 30 131/84 (100) 89 07/01/20 19:36 100 07/01/20 19:30 103 31 108/82 (91) 92 07/01/20 19:15 105 32 90/61 (71) 88 07/01/20 19:00 101 30 90 07/01/20 19:00 98.5 106 33 90/59 (69) 89 07/01/20 19:00 32 Mechanical Ventilator 100 07/01/20 19:00 30 130/73 Mechanical Ventilator 100 07/01/20 18:00 34 07/01/20 18:00 112 34 135/69 (91) 83 07/01/20 17:00 137 36 171/97 (121) 96 07/01/20 17:00 30 07/01/20 16:00 90 07/01/20 16:00 109 07/01/20 16:00 33 07/01/20 16:00 100.9 108 26 146/77 (100) 96 07/01/20 16:00 Mechanical Ventilator Mechanical Ventilator 07/01/20 15:41 110 33 90 Intake and Output 07/01/20 07/02/20 19:00 07:00 Intake Total 1277 ml 1396 ml Output Total 330 ml 1060 ml Balance 947 ml 336 ml Intake Free Water 250 ml IV Total 672 ml 596 ml Tube Feeding 605 ml 550 ml Output Urine Total 330 ml 960 ml Chest Tube Drainage Total 100 ml # Bowel Movements 2 Laboratory Tests Test 07/01/20 19:31 07/01/20 22:45 07/02/20 04:45 Arterial Blood pH 7.484 (7.350-7.450) Arterial Blood Partial Pressure CO2 44.3 mmHg (35.0-45.0) Arterial Blood Partial Pressure O2 55.8 mmHg (75.0-100.0) L Arterial Blood HCO3 32.5 mmol/L (22.0-26.0) H Arterial Blood Oxygen Saturation 90.3 % (95-100) L Arterial Blood Base Excess 8.2 (-2-2) H Amrit Test Positive Urine Color Yellow Urine Appearance Clear Urine pH 6 (4.5-8.0) Urine Specific [place] 1.020 (1.005-1.035) Urine Protein 2+ (NEGATIVE) H Urine Glucose (UA) Negative (NEGATIVE) Urine Ketones 1+ (NEGATIVE) H Urine Blood 5+ (NEGATIVE) H Urine Nitrite Negative (NEGATIVE) Urine Bilirubin 1+ (NEGATIVE) H Urine Ictotest Negative (NEGATIVE) Urine Urobilinogen 4 MG/DL (0.0-1.0) H Urine Leukocyte Esterase 1+ (NEGATIVE) H Urine RBC Tntc /HPF (0 - 2) H Urine WBC 2-4 /HPF (0 - 2) Urine Squamous Epithelial Cells Few /LPF (NONE/OCC) Urine Bacteria Few /HPF (NONE) Urine Mucus Few /LPF (NONE/OCC) H White Blood Count 7.9 K/UL (4.8-10.8) Red Blood Count 3.32 M/UL (4.20-5.40) L Hemoglobin 10.1 G/DL (12.0-16.0) L Hematocrit 31.5 % (37.0-47.0) L Mean Corpuscular Volume 95 FL (80-99) Mean Corpuscular Hemoglobin 30.3 PG (27.0-31.0) Mean Corpuscular Hemoglobin Concent 32.0 G/DL (32.0-36.0) Red Cell Distribution Width 14.7 % (11.6-14.8) Platelet Count 91 K/UL (150-450) L Mean Platelet Volume 8.8 FL (6.5-10.1) Neutrophils (%) (Auto) % (45.0-75.0) Lymphocytes (%) (Auto) % (20.0-45.0) Monocytes (%) (Auto) % (1.0-10.0) Eosinophils (%) (Auto) % (0.0-3.0) Basophils (%) (Auto) % (0.0-2.0) Sodium Level 150 MMOL/L (136-145) H Potassium Level 3.5 MMOL/L (3.5-5.1) Chloride Level 112 MMOL/L (98-107) H Carbon Dioxide Level 36 MMOL/L (21-32) H Anion Gap 2 mmol/L (5-15) L Blood Urea Nitrogen 24 mg/dL (7-18) H Creatinine 0.4 MG/DL (0.55-1.30) L Estimat Glomerular Filtration Rate > 60 mL/min (>60) Glucose Level 90 MG/DL (74-106) Calcium Level 7.3 MG/DL (8.5-10.1) L Phosphorus Level 2.4 MG/DL (2.5-4.9) L Magnesium Level 2.0 MG/DL (1.8-2.4) Total Bilirubin 0.6 MG/DL (0.2-1.0) Aspartate Amino Transf (AST/SGOT) 54 U/L (15-37) H Alanine Aminotransferase (ALT/SGPT) 56 U/L (12-78) Alkaline Phosphatase 82 U/L (46-116) Total Protein 5.1 G/DL (6.4-8.2) L Albumin 1.2 G/DL (3.4-5.0) L Globulin 3.9 g/dL Albumin/Globulin Ratio 0.3 (1.0-2.7) L Objective HEAD AND NECK: No JVD.Orally intubated with SQ emphysema LUNGS: Coarse rhonchi bilaterally. Bilateral chest tubes in. CARDIOVASCULAR: Regular S1 and S2 and tachycardic. ABDOMEN: Soft. EXTREMITIES: No pitting edema. Maxwell Carreon MD Jul 02, 2020 15:22
--- NOTE | 2020-07-02 15:57 | Diagnostic Imaging Report ---
Indication: Abdominal pain, abnormal liver function tests Technique: Veronica-scale and duplex images of the upper abdomen were obtained Comparison: none Findings: Exam is very limited due to patient body habitus, presence of chest tube, bandage, and bowel gas. Only portions of the left hepatic lobe abdominal aorta, and inferior vena cava, pancreas could be visualized. These structures are unremarkable The kidneys, gallbladder, common bile duct, spleen, right hepatic lobe could not be visualized Impression: Limited, essentially nondiagnostic exam, as described
--- NOTE | 2020-07-02 19:15 | NUR ---
Received report from NORMAN Lyon and assumed care of patient.
--- NOTE | 2020-07-02 20:00 | NUR ---
To bedside to assess patient. CT appear intact and patent. No drainage around tubing connections or on dressings. Patient does appear to have slightly labored breathing using accessory muscles, however all vent settings and volumes appear normal. Will continue to monitor this. VSS, patients underpad clean and dry. Not able to ET suction patient due to clamp in tube by dexter. See separate note notifying RT. Oral care provided as well as oral suction. Pt repositioned. Will continue to monitor.
--- NOTE | 2020-07-02 20:10 | NUR ---
Called RT to notify that ETT dexter is too tight around ETT causing an indentation on tube and restricting access to rae suction. RT to come to bedside to assess and loosen as needed to allow for suction while maintaining airway.
[2020-07-02] MEDS: Dyna-Hex 2% Top Sol 2oz TOPIC SCH (20:37)
--- NOTE | 2020-07-02 21:16 | General Progress Note ---
Subjective ROS Limited/Unobtainable: Yes Allergies: Coded Allergies: No Known Allergies (Unverified , 06/17/20) Objective Last 24 Hour Vital Signs Date Time Temp Pulse Resp B/P (MAP) Pulse Ox O2 Delivery O2 Flow Rate FiO2 07/02/20 20:39 93 164/76 07/02/20 20:00 100 07/02/20 20:00 97.0 93 26 158/70 (99) 95 07/02/20 20:00 Mechanical Ventilator Mechanical Ventilator 07/02/20 19:45 91 26 158/74 (102) 93 07/02/20 19:30 100 22 163/71 (101) 94 07/02/20 19:27 95 26 100 07/02/20 19:15 93 24 150/72 (98) 94 07/02/20 19:00 92 24 160/71 (100) 95 07/02/20 18:00 89 24 105/56 (72) 98 07/02/20 17:45 87 22 126/67 (86) 96 07/02/20 17:30 84 22 119/57 (77) 97 07/02/20 17:30 84 22 119/57 (77) 97 07/02/20 17:15 86 24 110/56 (74) 95 07/02/20 17:15 86 24 110/56 (74) 95 07/02/20 17:00 85 24 109/58 (75) 97 07/02/20 17:00 85 24 109/58 (75) 97 07/02/20 16:45 86 22 111/57 (75) 96 07/02/20 16:45 86 22 111/57 (75) 96 07/02/20 16:42 98.9 07/02/20 16:30 85 22 121/55 (77) 97 07/02/20 16:30 85 22 121/55 (77) 97 07/02/20 16:15 84 24 130/62 (84) 98 07/02/20 16:15 84 24 130/62 (84) 98 07/02/20 16:15 84 24 130/62 (84) 98 07/02/20 16:12 24 07/02/20 16:00 90 07/02/20 16:00 85 23 160/82 (108) 93 07/02/20 16:00 100 07/02/20 16:00 Mechanical Ventilator Mechanical Ventilator 07/02/20 16:00 85 23 160/82 (108) 93 07/02/20 16:00 85 23 160/82 (108) 93 07/02/20 15:45 84 25 110/68 (82) 95 07/02/20 15:45 84 25 110/68 (82) 95 07/02/20 15:30 84 24 134/60 (84) 94 07/02/20 15:30 84 24 134/60 (84) 94 07/02/20 15:20 83 24 100 07/02/20 15:15 83 24 135/75 (95) 94 07/02/20 15:15 83 24 135/75 (95) 94 07/02/20 15:00 84 24 119/76 (90) 97 07/02/20 15:00 84 24 119/76 (90) 97 07/02/20 14:45 83 23 132/76 (94) 99 07/02/20 14:30 84 24 133/74 (93) 97 07/02/20 14:15 83 25 124/64 (84) 100 07/02/20 14:00 90 23 130/69 (89) 98 07/02/20 14:00 90 23 130/69 (89) 98 07/02/20 13:45 94 28 141/74 (96) 92 07/02/20 13:30 79 27 150/79 (102) 84 07/02/20 13:15 87 17 143/74 (97) 99 07/02/20 13:00 85 17 148/75 (99) 100 07/02/20 12:52 78 29 165/79 (107) 75 07/02/20 12:45 78 29 162/87 (112) 69 07/02/20 12:30 156/85 (108) 07/02/20 12:00 100 07/02/20 12:00 90 07/02/20 12:00 87 24 148/72 (97) 99 07/02/20 12:00 87 24 148/72 (97) 99 07/02/20 12:00 Mechanical Ventilator Mechanical Ventilator 07/02/20 11:45 86 20 139/71 (93) 99 07/02/20 11:30 90 28 100 07/02/20 11:30 86 26 140/77 (98) 90 07/02/20 11:15 86 27 152/80 (104) 66 07/02/20 11:10 90 28 100 07/02/20 11:00 83 27 157/71 (99) 89 07/02/20 10:45 83 26 150/68 (95) 92 07/02/20 10:30 83 25 143/73 (96) 98 07/02/20 10:15 87 27 133/72 (92) 98 07/02/20 10:00 87 26 127/73 (91) 97 07/02/20 09:45 88 28 131/70 (90) 97 07/02/20 09:30 88 31 149/76 (100) 97 07/02/20 09:15 95 28 105/56 (72) 92 07/02/20 09:00 93 29 126/65 (85) 87 07/02/20 09:00 80 121/63 07/02/20 08:45 88 32 127/69 (88) 89 07/02/20 08:30 93 29 117/61 (79) 92 07/02/20 08:15 96 29 138/60 (86) 90 07/02/20 08:15 96 29 138/60 (86) 90 07/02/20 08:00 95 30 130/58 (82) 90 07/02/20 08:00 95 30 130/58 (82) 90 07/02/20 08:00 90 07/02/20 08:00 20 124/65 Mechanical Ventilator 100 07/02/20 08:00 100 07/02/20 08:00 Mechanical Ventilator Mechanical Ventilator 07/02/20 07:45 97 27 135/65 (88) 90 07/02/20 07:30 92 28 133/51 (78) 94 07/02/20 07:15 88 27 121/56 (77) 94 07/02/20 07:10 93 28 100 07/02/20 07:00 84 29 96/47 (63) 94 07/02/20 07:00 84 29 96/47 (63) 94 07/02/20 06:45 80 28 97/48 (64) 93 07/02/20 06:45 80 28 97/48 (64) 93 07/02/20 06:30 77 27 102/47 (65) 94 07/02/20 06:30 77 27 102/47 (65) 94 07/02/20 06:30 77 27 102/47 (65) 94 07/02/20 06:15 74 25 96/50 (65) 71 07/02/20 06:15 74 25 96/50 (65) 71 07/02/20 06:15 74 25 96/50 (65) 71 07/02/20 06:10 26 118/60 Mechanical Ventilator 100 07/02/20 06:00 26 Mechanical Ventilator 100 07/02/20 06:00 26 98/63 Mechanical Ventilator 100 07/02/20 06:00 71 24 118/60 (79) 81 07/02/20 06:00 98.0 71 24 118/60 (79) 81 07/02/20 06:00 71 24 118/60 (79) 81 07/02/20 05:45 66 22 145/64 (91) 85 07/02/20 05:45 66 22 145/64 (91) 85 07/02/20 05:30 76 26 97/50 (66) 98 07/02/20 05:30 76 26 97/50 (66) 98 07/02/20 05:15 78 24 94/55 (68) 100 07/02/20 05:15 78 24 94/55 (68) 100 07/02/20 05:00 76 26 110/50 (70) 99 07/02/20 05:00 26 Mechanical Ventilator 100 07/02/20 05:00 26 110/60 Mechanical Ventilator 100 07/02/20 05:00 76 26 110/50 (70) 99 07/02/20 04:45 78 27 97/48 (64) 98 07/02/20 04:30 79 27 96/50 (65) 98 07/02/20 04:15 81 27 100/51 (67) 99 07/02/20 04:00 98.3 83 28 100/52 (68) 98 07/02/20 04:00 Mechanical Ventilator Mechanical Ventilator 07/02/20 04:00 28 Mechanical Ventilator 100 07/02/20 04:00 28 95/52 Mechanical Ventilator 100 07/02/20 04:00 100 07/02/20 03:45 84 27 95/52 (66) 97 07/02/20 03:30 87 26 95/52 (66) 99 07/02/20 03:15 89 26 95/56 (69) 98 07/02/20 03:03 90 07/02/20 03:00 99.5 90 28 87/52 (64) 98 07/02/20 03:00 28 Mechanical Ventilator 100 07/02/20 03:00 27 87/52 Mechanical Ventilator 100 07/02/20 02:45 95 28 110/57 (74) 100 07/02/20 02:30 95 28 97/57 (70) 95 07/02/20 02:15 94 28 102/61 (75) 93 07/02/20 02:00 94 28 113/53 (73) 92 07/02/20 02:00 28 Mechanical Ventilator 100 07/02/20 02:00 30 87/52 Mechanical Ventilator 100 07/02/20 01:45 92 28 106/59 (75) 89 07/02/20 01:40 89 31 90 07/02/20 01:30 91 28 107/59 (75) 90 07/02/20 01:15 88 27 107/57 (74) 93 07/02/20 01:09 32 107/57 Mechanical Ventilator 100 07/02/20 01:00 87 30 139/76 (97) 89 07/02/20 01:00 27 Mechanical Ventilator 100 07/02/20 00:45 89 29 118/68 (85) 94 07/02/20 00:40 30 Mechanical Ventilator 100 07/02/20 00:30 89 30 128/13 (51) 95 07/02/20 00:15 89 30 127/59 (81) 95 07/02/20 00:00 Mechanical Ventilator Mechanical Ventilator 07/02/20 00:00 30 Mechanical Ventilator 100 07/02/20 00:00 32 127/59 Mechanical Ventilator 100 07/02/20 00:00 100 07/02/20 00:00 98.4 89 29 113/64 (80) 96 07/01/20 23:45 90 30 164/63 (96) 93 07/01/20 23:30 86 29 143/62 (89) 94 07/01/20 23:24 87 07/01/20 23:15 84 29 129/84 (99) 93 07/01/20 23:00 83 30 113/79 (90) 94 07/01/20 23:00 30 Mechanical Ventilator 100 07/01/20 23:00 30 137/57 Mechanical Ventilator 100 07/01/20 22:45 85 29 140/67 (91) 93 07/01/20 22:30 87 31 144/66 (92) 83 07/01/20 22:15 85 29 135/74 (94) 81 07/01/20 22:00 30 Mechanical Ventilator 100 07/01/20 22:00 30 88/64 Mechanical Ventilator 100 07/01/20 22:00 87 31 137/57 (83) 93 07/01/20 21:45 89 31 109/73 (85) 94 07/01/20 21:30 89 30 135/57 (83) 94 Intake and Output 07/01/20 07/02/20 19:00 07:00 Intake Total 1277 ml 1407 ml Output Total 330 ml 1060 ml Balance 947 ml 347 ml Intake Free Water 250 ml IV Total 672 ml 607 ml Tube Feeding 605 ml 550 ml Output Urine Total 330 ml 960 ml Chest Tube Drainage Total 100 ml # Bowel Movements 2 Laboratory Tests 07/01/20 22:45: Urine Color Yellow, Urine Appearance Clear, Urine pH 6, Urine Specific [place] 1.020, Urine Protein 2+H, Urine Glucose (UA) Negative, Urine Ketones 1+H, Urine Blood 5+H, Urine Nitrite Negative, Urine Bilirubin 1+H, Urine Ictotest Negative, Urine Urobilinogen 4H, Urine Leukocyte Esterase 1+H, Urine RBC TntcH, Urine WBC 2-4, Urine Squamous Epithelial Cells Few, Urine Bacteria Few, Urine Mucus FewH 07/02/20 04:45: White Blood Count 7.9, Red Blood Count 3.32L, Hemoglobin 10.1L, Hematocrit 31.5L , Mean Corpuscular Volume 95, Mean Corpuscular Hemoglobin 30.3, Mean Corpuscular Hemoglobin Concent 32.0, Red Cell Distribution Width 14.7, Platelet Count 91L, Mean Platelet Volume 8.8, Neutrophils (%) (Auto) , Lymphocytes (%) (Auto) , Monocytes (%) (Auto) , Eosinophils (%) (Auto) , Basophils (%) (Auto) , Sodium Level 150H, Potassium Level 3.5, Chloride Level 112H, Carbon Dioxide Level 36H, Anion Gap 2L, Blood Urea Nitrogen 24H, Creatinine 0.4L, Estimat Glomerular Filtration Rate > 60, Glucose Level 90, Calcium Level 7.3L, Phosphorus Level 2.4L, Magnesium Level 2.0, Total Bilirubin 0.6, Aspartate Amino Transf (AST/SGOT) 54H, Alanine Aminotransferase (ALT/SGPT) 56, Alkaline Phosphatase 82, Total Protein 5.1L, Albumin 1.2L, Globulin 3.9, Albumin/Globulin Ratio 0.3L Height (Feet): 5 Height (Inches): 2.00 Weight (Pounds): 138 Assessment/Plan Problem List: (1) Elevated d-dimer ICD Codes: R79.89 - Other specified abnormal findings of blood chemistry SNOMED: 139510761 (2) Renal insufficiency ICD Codes: N28.9 - Disorder of kidney and ureter, unspecified SNOMED: 072197427, 870811540 (3) PNA (pneumonia) ICD Codes: J18.9 - Pneumonia, unspecified organism SNOMED: 828014276 (4) Dehydration ICD Codes: E86.0 - Dehydration SNOMED: 67389821 (5) LEONARDO (acute kidney injury) ICD Codes: N17.9 - Acute kidney failure, unspecified SNOMED: 7441156, 24706009 (6) Hypoxia ICD Codes: R09.02 - Hypoxemia; J12.82 - Pneumonia due to coronavirus disease 2019 SNOMED: 204473485 (7) Pneumonia due to COVID-19 virus ICD Codes: U07.1 - COVID-19; J12.82 - Pneumonia due to coronavirus disease 2019 SNOMED: 506988616182597316 (8) DMII (diabetes mellitus, type 2) ICD Codes: E11.9 - Type 2 diabetes mellitus without complications SNOMED: 87224548 Status: progressing, unchanged Assessment/Plan: covid + diarrhea check lytes not improving lethargic intubated niddm azotemia Vidya Clayton MD Jul 02, 2020 21:16
--- NOTE | 2020-07-02 22:41 | NUR ---
ETT now allowing suction via rae post RT adjustment. OG was also not secured, assessed location of OG tube by auscultation, withdrawal of tube feeds, and flush. Taped and secured. Pt repositioned, oral care provided, and VSS. Will continue to monitor. Chest tubes remain secured.
[2020-07-03] VITALS (87 sets, daily range): BP systolic 91–180; BP diastolic 50–98
[2020-07-03] MEDS: NovoLOG Insulin Flexpen SUBQ SCH ×4 (00:04→18:00)
--- NOTE | 2020-07-03 00:07 | NUR ---
Oral care provided, CT milked B serousanguineous drainage noted, patient repositioned, VSS will continue to monitor.
--- NOTE | 2020-07-03 02:22 | NUR ---
Oral care provided, patient repositioned, B CT patent and draining. VSS, will continue to monitor.
--- NOTE | 2020-07-03 04:00 | NUR ---
Pt repositioned, oral care provided, underpad clean and dry, chest tubes assessed and patent. Will continue to monitor.
[2020-07-03 05:00] LABS: HEMATOCRIT 31.6 % (37.0-47.0); MEAN CORPUSCULAR VOLUME 96 FL (80-99); PLATELET COUNT 90 K/UL (150-450); RED BLOOD COUNT 3.29 M/UL (4.20-5.40); RED CELL DISTRIBUTION WIDTH 15.1 % (11.6-14.8); WHITE BLOOD COUNT 8.4 K/UL (4.8-10.8)
[2020-07-03 05:16] LABS: ANION GAP 1 mmol/L (5-15); BLOOD UREA NITROGEN 21 mg/dL (7-18); CALCIUM 7.6 MG/DL (8.5-10.1); CARBON DIOXIDE 36 MMOL/L (21-32); CHLORIDE 109 MMOL/L (98-107); CREATININE 0.4 MG/DL (0.55-1.30); POTASSIUM 3.9 MMOL/L (3.5-5.1); SODIUM 146 MMOL/L (136-145)
--- NOTE | 2020-07-03 06:17 | NUR ---
R chest tube put out 100ml overnight, and Left chest tube put out 28ml both marked with time and date with tape. Patient repositioned, underpad clean and dry, oral care provided, VSS will continue to monitor.
[2020-07-03] MEDS: Docusate 100mg/10ml Liq NG SCH ×3 (06:22→22:00)
--- NOTE | 2020-07-03 06:27 | Hematology/Onc Progress Note ---
Assessment/Plan Assessment/Plan Assessment and recs # Leukocytosis with Pneumonia due to COVID-19 virus -> wbc trend 15-->11-->10->17-->18->11->21 --> ABX as per id ctx-->off --> imaging does show pna --> anticoag recommended --> on remdesivir # Anemia of chronic disease --> hgb 12->10-->9-->11-->10.8->10 -> transfuse prn --> r/o hemolysis # Elevated ddimer due to covid --> duplex legs -> LOVENOX sq # Thrombocytopenia due to likely plt destruction, Covid19++ with Hypoxia -> steriods, abx per id --> plt 117-->121-->124->77 --> smear is noted # Renal insufficiency -> per renal care # Sepsis due to above --> abx, fluid resuscitation # Dvt ppx lovenox sq Appreciate consultation and mehran [place]UST[place] Subjective HEENT: Denies: no symptoms, eye pain, blurred vision, tearing, double vision, ear pain, ear discharge, nose pain, nose congestion, throat pain, throat swelling, mouth pain, mouth swelling, other Cardiovascular: Denies: no symptoms, chest pain, edema, irregular heart rate, lightheadedness, palpitations, syncope, other Respiratory: Denies: no symptoms, cough, shortness of breath, SOB with excertion, SOB at rest, sputum, wheezing, other Genitourinary: Denies: no symptoms, burning, discharge, frequency, flank pain, hematuria, incontinence, pain, urgency, other Endocrine: Denies: no symptoms, excessive sweating, flushing, intolerance to cold, intolerance to heat, increased hunger, increased thirst, increased urine, unexplained weight gain, unexplained weight loss, other Hematologic/Lymphatic: Denies: no symptoms, anemia, easy bleeding, easy bruising, adenopathy, other Allergies: Coded Allergies: No Known Allergies (Unverified , 06/17/20) Subjective 06/19 sleeping, comfortable, on bipap, meds have been reviewed 06/21 on bipap, labs have been reviewed, no major events 06/22 bipap labs reviewed, meds noted, no bleeding 06/23 bipap labs noted, no bleeding, meds reviewed, mehran [place] 06/24 on vent, labs reviewed, meds reviewed 06/25 on vent, with ctx as abx, labs noted, no bleeding 06/26 vent, with ogt, with helms, labs noted, no bleeding plts lower 06/28 labs are pending, on vent, helms intract, no new changes 06/29 icu, on vent, hgb 11, plt 124, meds noted, on ctx 06/30 icu, edematous, is on vent, labs reviewed, abx 07/01 icu, on vent, labs noted, no bleeding, plt 77, labs ordered 07/02 icu, nv, meds noted, no bleeding, plt 91, hgb 9 07/03 icu, nv, meds noted, right chest tube with output, hgb 10 Objective Objective Current Medications Medications (Trade) Dose Ordered Sig/Maya Route PRN Reason Start Time Stop Time Status Last Admin Dose Admin Acetaminophen (Tylenol) 500 mg Q4H PRN ORAL Mild Pain (Pain Scale 1-3) 06/18/20 00:15 07/18/20 00:14 06/24/20 17:51 Acetaminophen (Tylenol) 500 mg Q4H PRN ORAL Temp >100.5 06/18/20 00:15 07/18/20 00:14 06/29/20 20:01 Carvedilol (Coreg) 6.25 mg EVERY 12 HOURS ORAL 06/22/20 21:00 07/22/20 20:59 07/02/20 20:39 Cefepime HCl 1 gm/ Dextrose 55 ml @ 110 mls/hr EVERY 12 HOURS IVPB 07/01/20 11:45 07/08/20 11:44 07/02/20 20:38 Chlorhexidine Gluconate (Sissy-Hex 2%) 1 applic DAILY@2000 TOPIC 06/28/20 20:00 09/26/20 19:59 07/02/20 20:37 Dextrose (Dextrose 50%) 25 ml Q30M PRN IV Hypoglycemia 06/18/20 14:15 09/16/20 14:14 Dextrose (Dextrose 50%) 50 ml Q30M PRN IV Hypoglycemia 06/18/20 14:15 09/16/20 14:14 Docusate Sodium (Colace) 100 mg EVERY 8 HOURS NG 07/02/20 14:00 07/28/20 12:59 07/03/20 06:22 Fentanyl Citrate 1000 mcg/Sodium Chloride 100 ml @ 1 mls/hr Q24H IV 07/01/20 22:30 07/03/20 22:29 07/02/20 21:39 Furosemide (Lasix) 40 mg DAILY IV 06/28/20 17:45 07/28/20 16:59 07/02/20 09:00 Haloperidol Lactate (Haldol) 10 mg Q6H PRN IM Agitation 06/23/20 11:30 08/07/20 11:29 06/23/20 11:34 Heparin Sodium/ Sodium Chloride (Heparin 1000 units/500ml Premix) 1,000 unit NEEDED PRN IV PICC LINE PLACEMENT 06/28/20 20:00 Insulin Aspart (NovoLOG) while NPO Q6HR SUBQ 06/18/20 18:00 09/16/20 17:59 07/03/20 00:04 Midazolam HCl 100 ml @ 0 mls/hr Q24H PRN IV To Patient Comfort 07/02/20 05:15 07/04/20 05:14 07/02/20 16:12 Pantoprazole (Protonix) 40 mg EVERY 12 HOURS IVP 06/18/20 21:00 07/18/20 20:59 07/02/20 20:38 Sodium Chloride 1,000 ml @ 50 mls/hr Q20H IV 06/26/20 08:00 07/26/20 07:59 07/02/20 20:40 Vitamin D (Vitamin D) 2,000 unit DAILY GT 06/29/20 10:30 07/29/20 10:29 07/02/20 09:00 Last 24 Hour Vital Signs Date Time Temp Pulse Resp B/P (MAP) Pulse Ox O2 Delivery O2 Flow Rate FiO2 07/03/20 06:00 102 24 155/68 (97) 94 07/03/20 05:45 99 37 164/67 (99) 90 07/03/20 05:30 98.1 101 38 146/77 (100) 92 07/03/20 05:15 99 30 146/78 (100) 92 07/03/20 05:00 96 31 158/81 (106) 92 07/03/20 05:00 26 Mechanical Ventilator 100 07/03/20 05:00 26 96/55 Mechanical Ventilator 100 07/03/20 04:45 99 28 154/89 (110) 95 07/03/20 04:30 104 30 140/78 (98) 97 07/03/20 04:15 100 29 170/70 (103) 97 07/03/20 04:00 99.6 99 28 96/55 (69) 97 07/03/20 04:00 24 Mechanical Ventilator 100 07/03/20 04:00 24 94/54 Mechanical Ventilator 100 07/03/20 04:00 100 07/03/20 04:00 Mechanical Ventilator Mechanical Ventilator 07/03/20 03:45 99 26 107/57 (74) 95 07/03/20 03:30 99 27 91/56 (68) 97 07/03/20 03:15 97 07/03/20 03:15 98 22 105/60 (75) 95 07/03/20 03:03 99 27 100 07/03/20 03:00 26 Mechanical Ventilator 100 07/03/20 03:00 26 114/55 Mechanical Ventilator 100 07/03/20 03:00 98 26 94/54 (67) 98 07/03/20 02:45 99 27 98/54 (69) 98 07/03/20 02:30 99 26 114/55 (74) 98 07/03/20 02:15 100 26 118/59 (78) 96 07/03/20 02:00 99.0 95 26 108/57 (74) 97 07/03/20 02:00 26 Mechanical Ventilator 100 07/03/20 02:00 26 119/59 Mechanical Ventilator 100 07/03/20 01:45 96 27 108/63 (78) 97 07/03/20 01:30 95 26 122/64 (83) 97 07/03/20 01:15 93 25 138/61 (86) 93 07/03/20 01:00 93 26 136/59 (84) 93 07/03/20 01:00 24 Mechanical Ventilator 100 07/03/20 01:00 24 108/63 Mechanical Ventilator 100 07/03/20 00:55 92 24 100 07/03/20 00:45 93 26 136/65 (88) 94 07/03/20 00:30 92 25 128/69 (88) 94 07/03/20 00:15 91 25 131/59 (83) 94 07/03/20 00:03 89 07/03/20 00:00 100 07/03/20 00:00 23 Mechanical Ventilator 100 07/03/20 00:00 23 125/78 Mechanical Ventilator 100 07/03/20 00:00 Mechanical Ventilator Mechanical Ventilator 07/03/20 00:00 90 24 125/78 (94) 95 07/02/20 23:45 93 24 111/56 (74) 100 07/02/20 23:30 91 22 108/56 (73) 99 07/02/20 23:16 87 27 100 07/02/20 23:15 96.8 88 30 122/63 (82) 94 07/02/20 23:00 87 27 129/66 (87) 94 07/02/20 23:00 26 Mechanical Ventilator 100 07/02/20 23:00 26 122/63 Mechanical Ventilator 100 07/02/20 22:45 87 29 127/66 (86) 92 07/02/20 22:30 88 29 124/65 (84) 92 07/02/20 22:15 87 30 129/78 (95) 91 07/02/20 22:00 28 Mechanical Ventilator 100 07/02/20 22:00 31 129/78 Mechanical Ventilator 100 07/02/20 22:00 87 27 123/62 (82) 92 07/02/20 21:45 92 29 110/62 (78) 95 07/02/20 21:39 28 92/55 Mechanical Ventilator 100 07/02/20 21:30 93 25 92/55 (67) 97 07/02/20 21:24 102 28 100 07/02/20 21:15 102 22 112/65 (81) 99 07/02/20 21:00 102 23 152/73 (99) 100 07/02/20 21:00 30 Mechanical Ventilator 100 07/02/20 21:00 25 112/65 Mechanical Ventilator 100 07/02/20 20:45 91 27 162/67 (98) 93 07/02/20 20:39 93 164/76 07/02/20 20:30 95 28 164/76 (105) 99 07/02/20 20:15 90 28 167/72 (103) 94 07/02/20 20:00 100 07/02/20 20:00 97.0 93 26 158/70 (99) 95 07/02/20 20:00 34 Mechanical Ventilator 100 07/02/20 20:00 27 167/72 Mechanical Ventilator 100 07/02/20 20:00 Mechanical Ventilator Mechanical Ventilator 07/02/20 19:45 91 26 158/74 (102) 93 07/02/20 19:30 100 22 163/71 (101) 94 07/02/20 19:27 95 26 100 07/02/20 19:18 100 07/02/20 19:15 93 24 150/72 (98) 94 07/02/20 19:00 92 24 160/71 (100) 95 07/02/20 18:00 89 24 105/56 (72) 98 07/02/20 17:45 87 22 126/67 (86) 96 07/02/20 17:30 84 22 119/57 (77) 97 07/02/20 17:30 84 22 119/57 (77) 97 07/02/20 17:15 86 24 110/56 (74) 95 07/02/20 17:15 86 24 110/56 (74) 95 07/02/20 17:00 85 24 109/58 (75) 97 07/02/20 17:00 85 24 109/58 (75) 97 07/02/20 16:45 86 22 111/57 (75) 96 07/02/20 16:45 86 22 111/57 (75) 96 07/02/20 16:42 98.9 07/02/20 16:30 85 22 121/55 (77) 97 07/02/20 16:30 85 22 121/55 (77) 97 07/02/20 16:15 84 24 130/62 (84) 98 07/02/20 16:15 84 24 130/62 (84) 98 07/02/20 16:15 84 24 130/62 (84) 98 07/02/20 16:12 24 07/02/20 16:00 90 07/02/20 16:00 85 23 160/82 (108) 93 07/02/20 16:00 100 07/02/20 16:00 Mechanical Ventilator Mechanical Ventilator 07/02/20 16:00 85 23 160/82 (108) 93 07/02/20 16:00 85 23 160/82 (108) 93 07/02/20 15:45 84 25 110/68 (82) 95 07/02/20 15:45 84 25 110/68 (82) 95 07/02/20 15:30 84 24 134/60 (84) 94 07/02/20 15:30 84 24 134/60 (84) 94 07/02/20 15:20 83 24 100 07/02/20 15:15 83 24 135/75 (95) 94 07/02/20 15:15 83 24 135/75 (95) 94 07/02/20 15:00 84 24 119/76 (90) 97 07/02/20 15:00 84 24 119/76 (90) 97 07/02/20 14:45 83 23 132/76 (94) 99 07/02/20 14:30 84 24 133/74 (93) 97 07/02/20 14:15 83 25 124/64 (84) 100 07/02/20 14:00 90 23 130/69 (89) 98 07/02/20 14:00 90 23 130/69 (89) 98 07/02/20 13:45 94 28 141/74 (96) 92 07/02/20 13:30 79 27 150/79 (102) 84 07/02/20 13:15 87 17 143/74 (97) 99 07/02/20 13:00 85 17 148/75 (99) 100 07/02/20 12:52 78 29 165/79 (107) 75 07/02/20 12:45 78 29 162/87 (112) 69 07/02/20 12:30 156/85 (108) 07/02/20 12:00 100 07/02/20 12:00 90 07/02/20 12:00 87 24 148/72 (97) 99 07/02/20 12:00 87 24 148/72 (97) 99 07/02/20 12:00 Mechanical Ventilator Mechanical Ventilator 07/02/20 11:45 86 20 139/71 (93) 99 07/02/20 11:30 90 28 100 07/02/20 11:30 86 26 140/77 (98) 90 07/02/20 11:15 86 27 152/80 (104) 66 07/02/20 11:10 90 28 100 07/02/20 11:00 83 27 157/71 (99) 89 07/02/20 10:45 83 26 150/68 (95) 92 07/02/20 10:30 83 25 143/73 (96) 98 07/02/20 10:15 87 27 133/72 (92) 98 07/02/20 10:00 87 26 127/73 (91) 97 07/02/20 09:45 88 28 131/70 (90) 97 07/02/20 09:30 88 31 149/76 (100) 97 07/02/20 09:15 95 28 105/56 (72) 92 07/02/20 09:00 93 29 126/65 (85) 87 07/02/20 09:00 80 121/63 07/02/20 08:45 88 32 127/69 (88) 89 07/02/20 08:30 93 29 117/61 (79) 92 07/02/20 08:15 96 29 138/60 (86) 90 07/02/20 08:15 96 29 138/60 (86) 90 07/02/20 08:00 95 30 130/58 (82) 90 07/02/20 08:00 95 30 130/58 (82) 90 07/02/20 08:00 90 07/02/20 08:00 20 124/65 Mechanical Ventilator 100 07/02/20 08:00 100 07/02/20 08:00 Mechanical Ventilator Mechanical Ventilator 07/02/20 07:45 97 27 135/65 (88) 90 07/02/20 07:30 92 28 133/51 (78) 94 07/02/20 07:15 88 27 121/56 (77) 94 07/02/20 07:10 93 28 100 07/02/20 07:00 84 29 96/47 (63) 94 07/02/20 07:00 84 29 96/47 (63) 94 07/02/20 06:45 80 28 97/48 (64) 93 07/02/20 06:45 80 28 97/48 (64) 93 07/02/20 06:30 77 27 102/47 (65) 94 07/02/20 06:30 77 27 102/47 (65) 94 07/02/20 06:30 77 27 102/47 (65) 94 07/02/20 06:15 74 25 96/50 (65) 71 07/02/20 06:15 74 25 96/50 (65) 71 07/02/20 06:15 74 25 96/50 (65) 71 07/02/20 06:10 26 118/60 Mechanical Ventilator 100 07/02/20 06:00 26 Mechanical Ventilator 100 07/02/20 06:00 26 98/63 Mechanical Ventilator 100 07/02/20 06:00 71 24 118/60 (79) 81 07/02/20 06:00 98.0 71 24 118/60 (79) 81 07/02/20 06:00 71 24 118/60 (79) 81 07/02/20 05:45 66 22 145/64 (91) 85 07/02/20 05:45 66 22 145/64 (91) 85 07/02/20 05:30 76 26 97/50 (66) 98 07/02/20 05:30 76 26 97/50 (66) 98 07/02/20 05:15 78 24 94/55 (68) 100 07/02/20 05:15 78 24 94/55 (68) 100 07/02/20 05:00 76 26 110/50 (70) 99 07/02/20 05:00 26 Mechanical Ventilator 100 07/02/20 05:00 26 110/60 Mechanical Ventilator 100 07/02/20 05:00 76 26 110/50 (70) 99 07/02/20 04:45 78 27 97/48 (64) 98 07/02/20 04:30 79 27 96/50 (65) 98 07/02/20 04:15 81 27 100/51 (67) 99 07/02/20 04:00 98.3 83 28 100/52 (68) 98 07/02/20 04:00 Mechanical Ventilator Mechanical Ventilator 07/02/20 04:00 28 Mechanical Ventilator 100 07/02/20 04:00 28 95/52 Mechanical Ventilator 100 07/02/20 04:00 100 07/02/20 03:45 84 27 95/52 (66) 97 07/02/20 03:30 87 26 95/52 (66) 99 07/02/20 03:15 89 26 95/56 (69) 98 07/02/20 03:03 90 07/02/20 03:00 99.5 90 28 87/52 (64) 98 07/02/20 03:00 28 Mechanical Ventilator 100 07/02/20 03:00 27 87/52 Mechanical Ventilator 100 07/02/20 02:45 95 28 110/57 (74) 100 07/02/20 02:30 95 28 97/57 (70) 95 07/02/20 02:15 94 28 102/61 (75) 93 07/02/20 02:00 94 28 113/53 (73) 92 07/02/20 02:00 28 Mechanical Ventilator 100 07/02/20 02:00 30 87/52 Mechanical Ventilator 100 07/02/20 01:45 92 28 106/59 (75) 89 07/02/20 01:40 89 31 90 07/02/20 01:30 91 28 107/59 (75) 90 07/02/20 01:15 88 27 107/57 (74) 93 07/02/20 01:09 32 107/57 Mechanical Ventilator 100 07/02/20 01:00 87 30 139/76 (97) 89 07/02/20 01:00 27 Mechanical Ventilator 100 07/02/20 00:45 89 29 118/68 (85) 94 07/02/20 00:40 30 Mechanical Ventilator 100 07/02/20 00:30 89 30 128/13 (51) 95 07/02/20 00:15 89 30 127/59 (81) 95 07/02/20 00:00 Mechanical Ventilator Mechanical Ventilator 07/02/20 00:00 30 Mechanical Ventilator 100 07/02/20 00:00 32 127/59 Mechanical Ventilator 100 07/02/20 00:00 100 07/02/20 00:00 98.4 89 29 113/64 (80) 96 07/01/20 23:45 90 30 164/63 (96) 93 07/01/20 23:30 86 29 143/62 (89) 94 07/01/20 23:24 87 07/01/20 23:15 84 29 129/84 (99) 93 07/01/20 23:00 83 30 113/79 (90) 94 07/01/20 23:00 30 Mechanical Ventilator 100 07/01/20 23:00 30 137/57 Mechanical Ventilator 100 07/01/20 22:45 85 29 140/67 (91) 93 07/01/20 22:30 87 31 144/66 (92) 83 07/01/20 22:15 85 29 135/74 (94) 81 07/01/20 22:00 30 Mechanical Ventilator 100 07/01/20 22:00 30 88/64 Mechanical Ventilator 100 07/01/20 22:00 87 31 137/57 (83) 93 07/01/20 21:45 89 31 109/73 (85) 94 07/01/20 21:30 89 30 135/57 (83) 94 07/01/20 21:15 91 30 100/57 (71) 95 07/01/20 21:00 98.9 95 30 88/64 (72) 89 07/01/20 21:00 30 Mechanical Ventilator 100 07/01/20 21:00 30 88/64 Mechanical Ventilator 100 07/01/20 21:00 90 98/57 07/01/20 20:45 93 24 116/64 (81) 84 07/01/20 20:30 96 27 143/66 (91) 88 07/01/20 20:15 102 30 122/73 (89) 87 07/01/20 20:00 Mechanical Ventilator Mechanical Ventilator 07/01/20 20:00 100 31 130/73 (92) 86 07/01/20 20:00 100 07/01/20 20:00 32 Mechanical Ventilator 100 07/01/20 20:00 32 90/61 Mechanical Ventilator 100 07/01/20 19:45 101 30 131/84 (100) 89 07/01/20 19:36 100 07/01/20 19:30 103 31 108/82 (91) 92 07/01/20 19:15 105 32 90/61 (71) 88 07/01/20 19:00 101 30 90 07/01/20 19:00 98.5 106 33 90/59 (69) 89 07/01/20 19:00 32 Mechanical Ventilator 100 07/01/20 19:00 30 130/73 Mechanical Ventilator 100 07/01/20 18:00 34 07/01/20 18:00 112 34 135/69 (91) 83 07/01/20 17:00 137 36 171/97 (121) 96 07/01/20 17:00 30 07/01/20 16:00 90 07/01/20 16:00 109 07/01/20 16:00 33 07/01/20 16:00 100.9 108 26 146/77 (100) 96 07/01/20 16:00 Mechanical Ventilator Mechanical Ventilator 07/01/20 15:41 110 33 90 07/01/20 15:00 34 07/01/20 15:00 115 30 134/71 (92) 96 07/01/20 14:00 119 31 142/84 (103) 96 07/01/20 14:00 33 07/01/20 13:55 102 33 90 07/01/20 13:45 120 31 152/94 (113) 97 07/01/20 13:30 118 31 144/78 (100) 95 07/01/20 13:15 118 31 129/75 (93) 94 07/01/20 13:00 30 07/01/20 13:00 117 31 129/75 (93) 96 07/01/20 13:00 116 32 151/81 (104) 94 07/01/20 12:45 111 32 154/95 (114) 96 07/01/20 12:30 108 32 153/81 (105) 96 07/01/20 12:15 108 32 159/82 (107) 96 07/01/20 12:00 90 07/01/20 12:00 Mechanical Ventilator Mechanical Ventilator 07/01/20 12:00 108 33 163/76 (105) 95 07/01/20 12:00 33 Mechanical Ventilator 07/01/20 12:00 33 146/78 Mechanical Ventilator 07/01/20 12:00 107 07/01/20 12:00 108 33 95 07/01/20 11:45 107 32 159/76 (103) 95 07/01/20 11:30 107 33 143/73 (96) 94 07/01/20 11:15 107 32 146/75 (98) 95 07/01/20 11:15 108 33 90 07/01/20 11:00 105 31 143/79 (100) 98 07/01/20 11:00 32 Mechanical Ventilator 07/01/20 11:00 33 147/62 07/01/20 11:00 106 32 143/79 (100) 96 07/01/20 10:45 106 32 121/69 (86) 96 07/01/20 10:30 106 32 147/76 (99) 96 07/01/20 10:15 106 33 138/81 (100) 96 07/01/20 10:15 106 33 138/81 (100) 96 07/01/20 10:00 105 32 134/72 (92) 96 07/01/20 10:00 34 Mechanical Ventilator 07/01/20 10:00 33 156/67 07/01/20 10:00 105 32 134/72 (92) 96 07/01/20 09:54 107 33 90 07/01/20 09:45 107 31 145/74 (97) 97 07/01/20 09:30 108 32 121/80 (94) 96 07/01/20 09:15 109 33 142/69 (93) 96 07/01/20 09:00 108 33 126/60 (82) 96 07/01/20 09:00 33 Mechanical Ventilator 07/01/20 09:00 33 156/67 Mechanical Ventilator 07/01/20 09:00 105 143/70 07/01/20 09:00 109 33 127/66 (86) 96 07/01/20 08:00 30 Mechanical Ventilator 07/01/20 08:00 33 147/72 07/01/20 08:00 109 33 127/66 (86) 96 07/01/20 08:00 Mechanical Ventilator Mechanical Ventilator 07/01/20 08:00 109 33 134/69 (90) 95 07/01/20 08:00 107 07/01/20 08:00 90 07/01/20 07:45 110 34 90 07/01/20 07:45 110 33 130/70 (90) 95 07/01/20 07:30 110 33 119/66 (83) 94 07/01/20 07:15 110 33 120/61 (80) 95 07/01/20 07:00 109 33 134/69 (90) 95 07/01/20 07:00 109 33 134/69 (90) 95 07/01/20 07:00 33 Mechanical Ventilator 90 07/01/20 07:00 33 134/69 Mechanical Ventilator 90 07/01/20 06:45 108 33 135/66 (89) 95 07/01/20 06:30 108 33 134/69 (90) 95 Intake and Output 07/02/20 07/03/20 19:00 07:00 Intake Total 1633 ml 1465 ml Output Total 630 ml 813 ml Balance 1003 ml 652 ml Intake Free Water 1050 ml 300 ml IV Total 143 ml 560 ml Tube Feeding 440 ml 605 ml Output Urine Total 630 ml 685 ml Chest Tube Drainage Total 128 ml Labs Test 07/01/20 06:11 07/01/20 19:31 07/01/20 22:45 07/02/20 04:45 White Blood Count 9.9 K/UL (4.8-10.8) 7.9 K/UL (4.8-10.8) Red Blood Count 3.67 M/UL (4.20-5.40) 3.32 M/UL (4.20-5.40) Hemoglobin 11.1 G/DL (12.0-16.0) 10.1 G/DL (12.0-16.0) Hematocrit 34.7 % (37.0-47.0) 31.5 % (37.0-47.0) Mean Corpuscular Volume 95 FL (80-99) 95 FL (80-99) Mean Corpuscular Hemoglobin 30.3 PG (27.0-31.0) 30.3 PG (27.0-31.0) Mean Corpuscular Hemoglobin Concent 32.0 G/DL (32.0-36.0) 32.0 G/DL (32.0-36.0) Red Cell Distribution Width 14.7 % (11.6-14.8) 14.7 % (11.6-14.8) Platelet Count 100 K/UL (150-450) 91 K/UL (150-450) Mean Platelet Volume 7.6 FL (6.5-10.1) 8.8 FL (6.5-10.1) Neutrophils (%) (Auto) % (45.0-75.0) % (45.0-75.0) Lymphocytes (%) (Auto) % (20.0-45.0) % (20.0-45.0) Monocytes (%) (Auto) % (1.0-10.0) % (1.0-10.0) Eosinophils (%) (Auto) % (0.0-3.0) % (0.0-3.0) Basophils (%) (Auto) % (0.0-2.0) % (0.0-2.0) Differential Total Cells Counted 100 Neutrophils % (Manual) 87 % (45-75) Lymphocytes % (Manual) 9 % (20-45) Monocytes % (Manual) 2 % (1-10) Eosinophils % (Manual) 2 % (0-3) Basophils % (Manual) 0 % (0-2) Band Neutrophils 0 % (0-8) Platelet Estimate Decreased Platelet Morphology Normal Anisocytosis 1+ Sodium Level 148 MMOL/L (136-145) 150 MMOL/L (136-145) Potassium Level 3.5 MMOL/L (3.5-5.1) 3.5 MMOL/L (3.5-5.1) Chloride Level 108 MMOL/L (98-107) 112 MMOL/L (98-107) Carbon Dioxide Level 36 MMOL/L (21-32) 36 MMOL/L (21-32) Anion Gap 4 mmol/L (5-15) 2 mmol/L (5-15) Blood Urea Nitrogen 21 mg/dL (7-18) 24 mg/dL (7-18) Creatinine 0.6 MG/DL (0.55-1.30) 0.4 MG/DL (0.55-1.30) Estimat Glomerular Filtration Rate > 60 mL/min (>60) > 60 mL/min (>60) Glucose Level 144 MG/DL (74-106) 90 MG/DL (74-106) Calcium Level 7.6 MG/DL (8.5-10.1) 7.3 MG/DL (8.5-10.1) Phosphorus Level 2.0 MG/DL (2.5-4.9) 2.4 MG/DL (2.5-4.9) Magnesium Level 2.0 MG/DL (1.8-2.4) 2.0 MG/DL (1.8-2.4) Total Bilirubin 0.6 MG/DL (0.2-1.0) 0.6 MG/DL (0.2-1.0) Direct Bilirubin 0.3 MG/DL (0.0-0.3) Aspartate Amino Transf (AST/SGOT) 59 U/L (15-37) 54 U/L (15-37) Alanine Aminotransferase (ALT/SGPT) 60 U/L (12-78) 56 U/L (12-78) Alkaline Phosphatase 128 U/L (46-116) 82 U/L (46-116) Total Protein 5.4 G/DL (6.4-8.2) 5.1 G/DL (6.4-8.2) Albumin 1.4 G/DL (3.4-5.0) 1.2 G/DL (3.4-5.0) Arterial Blood pH 7.484 (7.350-7.450) Arterial Blood Partial Pressure CO2 44.3 mmHg (35.0-45.0) Arterial Blood Partial Pressure O2 55.8 mmHg (75.0-100.0) Arterial Blood HCO3 32.5 mmol/L (22.0-26.0) Arterial Blood Oxygen Saturation 90.3 % (95-100) Arterial Blood Base Excess 8.2 (-2-2) Amrit Test Positive Urine Color Yellow Urine Appearance Clear Urine pH 6 (4.5-8.0) Urine Specific [place] 1.020 (1.005-1.035) Urine Protein 2+ (NEGATIVE) Urine Glucose (UA) Negative (NEGATIVE) Urine Ketones 1+ (NEGATIVE) Urine Blood 5+ (NEGATIVE) Urine Nitrite Negative (NEGATIVE) Urine Bilirubin 1+ (NEGATIVE) Urine Ictotest Negative (NEGATIVE) Urine Urobilinogen 4 MG/DL (0.0-1.0) Urine Leukocyte Esterase 1+ (NEGATIVE) Urine RBC Tntc /HPF (0 - 2) Urine WBC 2-4 /HPF (0 - 2) Urine Squamous Epithelial Cells Few /LPF (NONE/OCC) Urine Bacteria Few /HPF (NONE) Urine Mucus Few /LPF (NONE/OCC) Globulin 3.9 g/dL Albumin/Globulin Ratio 0.3 (1.0-2.7) Test 07/03/20 03:40 White Blood Count 8.4 K/UL (4.8-10.8) Red Blood Count 3.29 M/UL (4.20-5.40) Hemoglobin 10.0 G/DL (12.0-16.0) Hematocrit 31.6 % (37.0-47.0) Mean Corpuscular Volume 96 FL (80-99) Mean Corpuscular Hemoglobin 30.5 PG (27.0-31.0) Mean Corpuscular Hemoglobin Concent 31.6 G/DL (32.0-36.0) Red Cell Distribution Width 15.1 % (11.6-14.8) Platelet Count 90 K/UL (150-450) Mean Platelet Volume 9.5 FL (6.5-10.1) Neutrophils (%) (Auto) % (45.0-75.0) Lymphocytes (%) (Auto) % (20.0-45.0) Monocytes (%) (Auto) % (1.0-10.0) Eosinophils (%) (Auto) % (0.0-3.0) Basophils (%) (Auto) % (0.0-2.0) Sodium Level 146 MMOL/L (136-145) Potassium Level 3.9 MMOL/L (3.5-5.1) Chloride Level 109 MMOL/L (98-107) Carbon Dioxide Level 36 MMOL/L (21-32) Anion Gap 1 mmol/L (5-15) Blood Urea Nitrogen 21 mg/dL (7-18) Creatinine 0.4 MG/DL (0.55-1.30) Estimat Glomerular Filtration Rate > 60 mL/min (>60) Glucose Level 128 MG/DL (74-106) Calcium Level 7.6 MG/DL (8.5-10.1) Height (Feet): 5 Height (Inches): 2.00 Weight (Pounds): 138 Objective Physical Exam Vitals: reviewed, abnormal - Interpreted as low by me General: GCS 15 - Sometimes slightly confused, non-toxic, mild distress Head: normocephalic, moist mucus membranes Neck: supple Respiratory: no retraction, no accessory muscle use, respiratory distress - Min imal with tachypnea, crackles Cardiovascular: regular rate, rhythm, no edema Gastrointestinal: normal inspection, non tender, soft Genitourinary: no CVA tenderness Musculoskeletal: back normal Neurologic: alert, oriented x3, grossly normal Psychiatric: mood/affect normal - sometimes confused Skin: no rash, warm/dry Jj Swann MD Jul 03, 2020 06:27
--- NOTE | 2020-07-03 06:36 | NUR ---
CASE MANAGEMENT:REVIEW 07/03/20 SI: COVID PNEUMONIA ~ INTUBATED. PNTHX W/BILATERAL CHEST TUBES 97.8 102 26 106/55 97% ON VENT SUPPORT W/100% FIO2 PEEP~8.0 H/H-10.0/31.6 PLT-90 CO2+36 BUN+21 CA-7.6 IS: FENTANYL GTT VERSED GTT PRN IV CEFEPIME Q12 IV LASIX QD IVF@50/HR COREG NG Q12H IV PROTONIX Q12H LOVENOX SQ Q12H : ICU STATUS DCP: FROM HOME PLAN: SUPPORTIVE CARE BILATERAL CHEST TUBES TO SUCTION WEAN OXYGEN ABLE
--- NOTE | 2020-07-03 07:40 | NUR ---
RESPIRATORY NOTE: PT received on AC/VC: 16, 400, 100%, +8. Alarms are on and audible. Vent circuit is secure and out of the way. Airway is secure and patent. No s/s of respiratory distress noted at this time. Will continue to closely monitor.
[2020-07-03] MEDS: Carvedilol 6.25mg Tab ORAL SCH ×2 (09:00→21:00)
[2020-07-03] MEDS: Vitamin D 1000 units Tab GT SCH (09:00)
[2020-07-03] MEDS: Cefepime HCl 1 GM in D5W 55 ML IVPB SCH (09:00)
[2020-07-03] MEDS: Pantoprazole Inj IVP SCH ×2 (09:00→20:46)
--- NOTE | 2020-07-03 10:44 | Pulmonology Progress Note ---
Subjective ROS Limited/Unobtainable: Yes Interval Events: Remains intubated; bilateral chest tubes in place Constitutional: Reports: fever, other - low grade HEENT: Repors: no symptoms Respiratory: Reports: shortness of breath Cardiovascular: Reports: no symptoms Gastrointestinal/Abdominal: Reports: no symptoms Allergies: Coded Allergies: No Known Allergies (Unverified , 06/17/20) All Systems: reviewed and negative except above Objective Last 24 Hour Vital Signs Date Time Temp Pulse Resp B/P (MAP) Pulse Ox O2 Delivery O2 Flow Rate FiO2 07/03/20 10:00 98 25 93/54 (67) 95 07/03/20 09:45 96 24 102/55 (71) 96 07/03/20 09:30 96 24 97/52 (67) 98 07/03/20 09:15 97 24 103/54 (70) 97 07/03/20 09:00 100 23 99 07/03/20 09:00 75 105/66 07/03/20 09:00 100 23 128/63 (84) 99 07/03/20 08:45 102 24 145/58 (87) 99 07/03/20 08:30 101 24 146/66 (92) 99 07/03/20 08:15 104 25 146/72 (96) 99 07/03/20 08:00 100 07/03/20 08:00 Mechanical Ventilator Mechanical Ventilator 07/03/20 08:00 98 30 142/69 (93) 92 07/03/20 08:00 97 07/03/20 07:45 99 31 147/71 (96) 92 07/03/20 07:30 95 33 164/72 (102) 90 07/03/20 07:15 101 28 100/51 (67) 97 07/03/20 07:15 101 28 100/51 (67) 97 07/03/20 07:00 100 27 95/51 (66) 96 07/03/20 07:00 100 27 95/51 (66) 96 07/03/20 06:45 99 26 93/50 (64) 97 07/03/20 06:30 97.8 102 26 106/55 (72) 97 07/03/20 06:30 102 26 106/55 (72) 97 07/03/20 06:15 103 26 125/71 (89) 95 2/12/21 06:15 103 26 125/71 (89) 95 07/03/20 06:00 26 Mechanical Ventilator 100 07/03/20 06:00 26 125/55 Mechanical Ventilator 100 07/03/20 06:00 102 24 155/68 (97) 94 07/03/20 06:00 102 24 155/68 (97) 94 07/03/20 05:45 99 37 164/67 (99) 90 07/03/20 05:45 99 37 164/67 (99) 90 07/03/20 05:30 98.1 101 38 146/77 (100) 92 07/03/20 05:30 101 38 146/77 (100) 92 07/03/20 05:15 99 30 146/78 (100) 92 07/03/20 05:15 99 30 146/78 (100) 92 07/03/20 05:00 96 31 158/81 (106) 92 07/03/20 05:00 26 Mechanical Ventilator 100 07/03/20 05:00 26 96/55 Mechanical Ventilator 100 07/03/20 05:00 96 31 158/81 (106) 92 07/03/20 04:45 99 28 154/89 (110) 95 07/03/20 04:30 104 30 140/78 (98) 97 07/03/20 04:15 100 29 170/70 (103) 97 07/03/20 04:00 99.6 99 28 96/55 (69) 97 07/03/20 04:00 24 Mechanical Ventilator 100 07/03/20 04:00 24 94/54 Mechanical Ventilator 100 07/03/20 04:00 100 07/03/20 04:00 Mechanical Ventilator Mechanical Ventilator 07/03/20 03:45 99 26 107/57 (74) 95 07/03/20 03:30 99 27 91/56 (68) 97 07/03/20 03:15 97 07/03/20 03:15 98 22 105/60 (75) 95 07/03/20 03:03 99 27 100 07/03/20 03:00 26 Mechanical Ventilator 100 07/03/20 03:00 26 114/55 Mechanical Ventilator 100 07/03/20 03:00 98 26 94/54 (67) 98 07/03/20 02:45 99 27 98/54 (69) 98 07/03/20 02:30 99 26 114/55 (74) 98 07/03/20 02:15 100 26 118/59 (78) 96 07/03/20 02:00 99.0 95 26 108/57 (74) 97 07/03/20 02:00 26 Mechanical Ventilator 100 07/03/20 02:00 26 119/59 Mechanical Ventilator 100 07/03/20 01:45 96 27 108/63 (78) 97 07/03/20 01:30 95 26 122/64 (83) 97 07/03/20 01:15 93 25 138/61 (86) 93 07/03/20 01:00 93 26 136/59 (84) 93 07/03/20 01:00 24 Mechanical Ventilator 100 07/03/20 01:00 24 108/63 Mechanical Ventilator 100 07/03/20 00:55 92 24 100 07/03/20 00:45 93 26 136/65 (88) 94 07/03/20 00:30 92 25 128/69 (88) 94 07/03/20 00:15 91 25 131/59 (83) 94 07/03/20 00:03 89 07/03/20 00:00 100 07/03/20 00:00 23 Mechanical Ventilator 100 07/03/20 00:00 23 125/78 Mechanical Ventilator 100 07/03/20 00:00 Mechanical Ventilator Mechanical Ventilator 07/03/20 00:00 90 24 125/78 (94) 95 07/02/20 23:45 93 24 111/56 (74) 100 07/02/20 23:30 91 22 108/56 (73) 99 07/02/20 23:16 87 27 100 07/02/20 23:15 96.8 88 30 122/63 (82) 94 07/02/20 23:00 87 27 129/66 (87) 94 07/02/20 23:00 26 Mechanical Ventilator 100 07/02/20 23:00 26 122/63 Mechanical Ventilator 100 07/02/20 22:45 87 29 127/66 (86) 92 07/02/20 22:30 88 29 124/65 (84) 92 07/02/20 22:15 87 30 129/78 (95) 91 07/02/20 22:00 28 Mechanical Ventilator 100 07/02/20 22:00 31 129/78 Mechanical Ventilator 100 07/02/20 22:00 87 27 123/62 (82) 92 07/02/20 21:45 92 29 110/62 (78) 95 07/02/20 21:39 28 92/55 Mechanical Ventilator 100 07/02/20 21:30 93 25 92/55 (67) 97 07/02/20 21:24 102 28 100 07/02/20 21:15 102 22 112/65 (81) 99 07/02/20 21:00 102 23 152/73 (99) 100 07/02/20 21:00 30 Mechanical Ventilator 100 07/02/20 21:00 25 112/65 Mechanical Ventilator 100 07/02/20 20:45 91 27 162/67 (98) 93 07/02/20 20:39 93 164/76 07/02/20 20:30 95 28 164/76 (105) 99 07/02/20 20:15 90 28 167/72 (103) 94 07/02/20 20:00 100 07/02/20 20:00 97.0 93 26 158/70 (99) 95 07/02/20 20:00 34 Mechanical Ventilator 100 07/02/20 20:00 27 167/72 Mechanical Ventilator 100 07/02/20 20:00 Mechanical Ventilator Mechanical Ventilator 07/02/20 19:45 91 26 158/74 (102) 93 07/02/20 19:30 100 22 163/71 (101) 94 07/02/20 19:27 95 26 100 07/02/20 19:18 100 07/02/20 19:15 93 24 150/72 (98) 94 07/02/20 19:00 92 24 160/71 (100) 95 07/02/20 18:00 89 24 105/56 (72) 98 07/02/20 17:45 87 22 126/67 (86) 96 07/02/20 17:30 84 22 119/57 (77) 97 07/02/20 17:30 84 22 119/57 (77) 97 07/02/20 17:15 86 24 110/56 (74) 95 07/02/20 17:15 86 24 110/56 (74) 95 07/02/20 17:00 85 24 109/58 (75) 97 07/02/20 17:00 85 24 109/58 (75) 97 07/02/20 16:45 86 22 111/57 (75) 96 07/02/20 16:45 86 22 111/57 (75) 96 07/02/20 16:42 98.9 07/02/20 16:30 85 22 121/55 (77) 97 07/02/20 16:30 85 22 121/55 (77) 97 07/02/20 16:15 84 24 130/62 (84) 98 07/02/20 16:15 84 24 130/62 (84) 98 07/02/20 16:15 84 24 130/62 (84) 98 07/02/20 16:12 24 07/02/20 16:00 90 07/02/20 16:00 85 23 160/82 (108) 93 07/02/20 16:00 100 07/02/20 16:00 Mechanical Ventilator Mechanical Ventilator 07/02/20 16:00 85 23 160/82 (108) 93 07/02/20 16:00 85 23 160/82 (108) 93 07/02/20 15:45 84 25 110/68 (82) 95 07/02/20 15:45 84 25 110/68 (82) 95 07/02/20 15:30 84 24 134/60 (84) 94 07/02/20 15:30 84 24 134/60 (84) 94 07/02/20 15:20 83 24 100 07/02/20 15:15 83 24 135/75 (95) 94 07/02/20 15:15 83 24 135/75 (95) 94 07/02/20 15:00 84 24 119/76 (90) 97 07/02/20 15:00 84 24 119/76 (90) 97 07/02/20 14:45 83 23 132/76 (94) 99 07/02/20 14:30 84 24 133/74 (93) 97 07/02/20 14:15 83 25 124/64 (84) 100 07/02/20 14:00 90 23 130/69 (89) 98 07/02/20 14:00 90 23 130/69 (89) 98 07/02/20 13:45 94 28 141/74 (96) 92 07/02/20 13:30 79 27 150/79 (102) 84 07/02/20 13:15 87 17 143/74 (97) 99 07/02/20 13:00 85 17 148/75 (99) 100 07/02/20 12:52 78 29 165/79 (107) 75 07/02/20 12:45 78 29 162/87 (112) 69 07/02/20 12:30 156/85 (108) 07/02/20 12:00 100 07/02/20 12:00 90 07/02/20 12:00 87 24 148/72 (97) 99 07/02/20 12:00 87 24 148/72 (97) 99 07/02/20 12:00 Mechanical Ventilator Mechanical Ventilator 07/02/20 11:45 86 20 139/71 (93) 99 07/02/20 11:30 90 28 100 07/02/20 11:30 86 26 140/77 (98) 90 07/02/20 11:15 86 27 152/80 (104) 66 07/02/20 11:10 90 28 100 07/02/20 11:00 83 27 157/71 (99) 89 07/02/20 10:45 83 26 150/68 (95) 92 Intake and Output 07/02/20 07/03/20 19:00 07:00 Intake Total 1633 ml 1581 ml Output Total 630 ml 843 ml Balance 1003 ml 738 ml Intake Free Water 1050 ml 300 ml IV Total 143 ml 621 ml Tube Feeding 440 ml 660 ml Output Urine Total 630 ml 715 ml Chest Tube Drainage Total 128 ml General Appearance: no acute distress HEENT: atraumatic Respiratory: crackles/rales Cardiovascular: normal rate Abdomen: soft, non tender Laboratory Tests 07/03/20 03:40: White Blood Count 8.4, Red Blood Count 3.29L, Hemoglobin 10.0L, Hematocrit 31.6L , Mean Corpuscular Volume 96, Mean Corpuscular Hemoglobin 30.5, Mean Corpuscular Hemoglobin Concent 31.6L, Red Cell Distribution Width 15.1H, Platelet Count 90L, Mean Platelet Volume 9.5, Neutrophils (%) (Auto) , Lymphocytes (%) (Auto) , Monocytes (%) (Auto) , Eosinophils (%) (Auto) , Basophils (%) (Auto) , Differential Total Cells Counted 100, Neutrophils % (Manual) 81H, Lymphocytes % (Manual) 11L, Monocytes % (Manual) 3, Eosinophils % (Manual) 5H, Basophils % (Manual) 0, Band Neutrophils 0, Platelet Estimate DecreasedL, Platelet Morphology Normal, Hypochromasia 1+, Anisocytosis 1+, Sodium Level 146H, Potassium Level 3.9, Chloride Level 109H, Carbon Dioxide Level 36H, Anion Gap 1L , Blood Urea Nitrogen 21H, Creatinine 0.4L, Estimat Glomerular Filtration Rate > 60, Glucose Level 128H, Calcium Level 7.6L Current Medications Medications (Trade) Dose Ordered Sig/Maya Route PRN Reason Start Time Stop Time Status Last Admin Dose Admin Acetaminophen (Tylenol) 500 mg Q4H PRN ORAL Mild Pain (Pain Scale 1-3) 06/18/20 00:15 07/18/20 00:14 06/24/20 17:51 Acetaminophen (Tylenol) 500 mg Q4H PRN ORAL Temp >100.5 06/18/20 00:15 07/18/20 00:14 06/29/20 20:01 Carvedilol (Coreg) 6.25 mg EVERY 12 HOURS ORAL 06/22/20 21:00 07/22/20 20:59 07/02/20 20:39 Cefepime HCl 1 gm/ Dextrose 55 ml @ 110 mls/hr EVERY 12 HOURS IVPB 07/01/20 11:45 07/08/20 11:44 07/03/20 09:00 Chlorhexidine Gluconate (Sissy-Hex 2%) 1 applic DAILY@2000 TOPIC 06/28/20 20:00 09/26/20 19:59 07/02/20 20:37 Dextrose (Dextrose 50%) 25 ml Q30M PRN IV Hypoglycemia 06/18/20 14:15 09/16/20 14:14 Dextrose (Dextrose 50%) 50 ml Q30M PRN IV Hypoglycemia 06/18/20 14:15 09/16/20 14:14 Docusate Sodium (Colace) 100 mg EVERY 8 HOURS NG 07/02/20 14:00 07/28/20 12:59 07/03/20 06:22 Fentanyl Citrate 1000 mcg/Sodium Chloride 100 ml @ 1 mls/hr Q24H IV 07/01/20 22:30 07/03/20 22:29 07/02/20 21:39 Furosemide (Lasix) 40 mg DAILY IV 06/28/20 17:45 07/28/20 16:59 07/03/20 09:00 Haloperidol Lactate (Haldol) 10 mg Q6H PRN IM Agitation 06/23/20 11:30 08/07/20 11:29 06/23/20 11:34 Insulin Aspart (NovoLOG) while NPO Q6HR SUBQ 06/18/20 18:00 09/16/20 17:59 07/03/20 00:04 Midazolam HCl 100 ml @ 0 mls/hr Q24H PRN IV To Patient Comfort 07/02/20 05:15 07/04/20 05:14 07/02/20 16:12 Pantoprazole (Protonix) 40 mg EVERY 12 HOURS IVP 06/18/20 21:00 07/18/20 20:59 07/03/20 09:00 Sodium Chloride 1,000 ml @ 50 mls/hr Q20H IV 06/26/20 08:00 07/26/20 07:59 07/02/20 20:40 Vitamin D (Vitamin D) 2,000 unit DAILY GT 06/29/20 10:30 07/29/20 10:29 07/03/20 09:00 Assessment/Plan Assessment/Plan 1. COVID-19 pneumonia -Intubated, on 80-90% FiO2. PEEP 5-10. -SaO2 96% -On Decadron, s/p remdesivir 2. Leukocytosis -Resolved 3. Elevated D-dimer -On Lovenox 40 subcu QD for DVT prophylaxis 4. Renal insufficiency -Improved 5. Anemia of chronic disease -Hematology oncology following 6. Sepsis -Status post antibiotics, fluid resuscitation 7. Pneumothorax 06/22/20 - b/l subcutaneous emphysema, pneumomediastinum, probable small left pneumothorax & ? trace right pneumothorax. -[place] in place - placed CT by surgery (bilateral) - Will attempt wean when FiO2 decreases Charlie Sewell MD Jul 03, 2020 10:44
[2020-07-03 11:03] LABS: ALANINE AMINOTRANSFERASE 48 U/L (12-78); ALBUMIN 1.2 G/DL (3.4-5.0); ALKALINE PHOSPHATASE 103 U/L (46-116); ASPARTATE AMINO TRANSFERASE 57 U/L (15-37); BILIRUBIN,DIRECT < 0.1 MG/DL (0.0-0.3); BILIRUBIN,TOTAL 0.6 MG/DL (0.2-1.0); PHOSPHORUS 2.5 MG/DL (2.5-4.9)
[2020-07-03] MEDS: Versed 50mg/NS 100ml 100 ML IV PRN (12:08)
--- NOTE | 2020-07-03 12:21 | Nephrology Progress Note ---
Assessment/Plan Problem List: (1) LEONARDO (acute kidney injury) (2) Dehydration (3) DMII (diabetes mellitus, type 2) (4) Pneumonia due to COVID-19 virus (5) Hypoxia Assessment 70-year-old female presents with COVID-19 pneumonia and hypoxia On admission has BUN of 77 and creatinine of 1.6. Renal failure most likely prerenal and dehydration with possible underlying chronic kidney disease Patient has elevated inflammatory markers Hypoalbuminemia Electrolyte abnormalities Hyperglycemia Plan July 03: Patient remains full code. Intubated on ventilator. Has chest tube. Labs reviewed. Renal parameters stable. Continue per consultants. July 02: Remains intubated. Has a bilateral chest tube. He is full code. Labs reviewed. Abnormal electrolyte addressed. Continue per consultants. July 01: Remains intubated. Continues to have bilateral chest tube. Full code. Labs reviewed. Renal parameters stable. Low phosphorus addressed. Discussed with NORMAN Lyon. June 30: Full code. Intubated. Bilateral chest tube. As reviewed. Abnormal electrolytes addressed. June 29: Full code. Intubated. Bilateral chest tube. Unstable pulmonary status. ABG ordered. Electrolyte imbalance addressed. Discussed with NORMAN Montalvo. June 28: Labs reviewed. Abnormal electrolytes addressed. Patient remains full code. Continue per consultants. June 27: No chemistry panel done today. Remains full code. Medication list reviewed. Continue per consultants. Will monitor electrolytes and renal panel in a.m. June 26: Status quo. Remains full code. Labs reviewed. Main IV changed to normal saline 50 cc an hour. Continue per consultants and pulmonary. June 25: Remains intubated. Has bilateral chest tube. Full code. Labs reviewed. Abnormal electrolytes addressed. Albumin bolus given. Continue to monitor renal parameters. Poor prognosis. June 24: Patient in ICU. Intubated. Has bilateral chest tube. Labs reviewed. Renal parameters stable. Low phosphorus addressed. Continue per consultants. Full code. Poor prognosis. June 23: Patient in ICU. Intubated. Due for insertion of a chest tube. Has pneumothorax. Renal parameters are stable. Serum sodium rising. Will adjust IV fluid. Continue per consultants. Patient full code. Prognosis poor. June 22: Labs reviewed. Remains on BiPAP which is not changed to high flow oxygen due to pneumothorax found on chest x-ray. Serum sodium 155. Continues on D5W. Electrolytes within normal limits. Check 2D echocardiogram. Coreg for blood pressure and heart rate. June 21: Status quo. On BiPAP. Full code. Serum sodium 153. Continue D5W. Continue to monitor electrolytes. Continue per consultants. June 20: Patient full code. On BiPAP. Labs reviewed. Serum sodium rising. Will increase D5W to 75 cc an hour. Continue to monitor electrolytes. June 19: IV changed to D5W. Monitor blood sugar. Monitor electrolytes. Medication list reviewed. Patient is being treated for COVID-19 pneumonia. Patient is full code. Previously Pulmonary support IV antibiotics Slow hydration Avoid nephrotoxic Monitor renal parameters Per orders Subjective ROS Limited/Unobtainable: Yes Objective Objective Last 24 Hour Vital Signs Date Time Temp Pulse Resp B/P (MAP) Pulse Ox O2 Delivery O2 Flow Rate FiO2 07/03/20 12:08 26 Mechanical Ventilator 100 07/03/20 12:00 103 28 116/58 (77) 94 07/03/20 12:00 Mechanical Ventilator Mechanical Ventilator 07/03/20 12:00 100 07/03/20 12:00 97 07/03/20 11:45 102 26 119/56 (77) 97 07/03/20 11:40 67 15 100 07/03/20 11:30 103 25 143/69 (93) 98 07/03/20 11:30 103 25 143/69 (93) 98 07/03/20 11:15 102 25 137/60 (85) 96 07/03/20 11:15 102 25 137/60 (85) 96 07/03/20 11:00 101 26 126/69 (88) 95 07/03/20 11:00 101 26 126/69 (88) 95 07/03/20 10:51 99 28 94 Mechanical Ventilator 80 07/03/20 10:45 102 27 119/58 (78) 95 07/03/20 10:30 101 27 109/71 (84) 95 07/03/20 10:15 99 27 100/52 (68) 96 07/03/20 10:00 98 25 93/54 (67) 95 07/03/20 10:00 98 25 93/54 (67) 95 07/03/20 09:45 96 24 102/55 (71) 96 07/03/20 09:30 96 24 97/52 (67) 98 07/03/20 09:15 97 24 103/54 (70) 97 07/03/20 09:00 100 23 99 07/03/20 09:00 75 105/66 07/03/20 09:00 100 23 128/63 (84) 99 07/03/20 08:45 102 24 145/58 (87) 99 07/03/20 08:30 101 24 146/66 (92) 99 07/03/20 08:15 104 25 146/72 (96) 99 07/03/20 08:00 100 07/03/20 08:00 Mechanical Ventilator Mechanical Ventilator 07/03/20 08:00 98 30 142/69 (93) 92 07/03/20 08:00 97 07/03/20 07:45 99 31 147/71 (96) 92 07/03/20 07:40 99 28 100 07/03/20 07:30 95 33 164/72 (102) 90 07/03/20 07:15 101 28 100/51 (67) 97 07/03/20 07:15 101 28 100/51 (67) 97 07/03/20 07:00 100 27 95/51 (66) 96 07/03/20 07:00 100 27 95/51 (66) 96 07/03/20 06:45 99 26 93/50 (64) 97 07/03/20 06:30 97.8 102 26 106/55 (72) 97 07/03/20 06:30 102 26 106/55 (72) 97 07/03/20 06:15 103 26 125/71 (89) 95 07/03/20 06:15 103 26 125/71 (89) 95 07/03/20 06:00 26 Mechanical Ventilator 100 07/03/20 06:00 26 125/55 Mechanical Ventilator 100 07/03/20 06:00 102 24 155/68 (97) 94 07/03/20 06:00 102 24 155/68 (97) 94 07/03/20 05:45 99 37 164/67 (99) 90 07/03/20 05:45 99 37 164/67 (99) 90 07/03/20 05:30 98.1 101 38 146/77 (100) 92 07/03/20 05:30 101 38 146/77 (100) 92 07/03/20 05:15 99 30 146/78 (100) 92 07/03/20 05:15 99 30 146/78 (100) 92 07/03/20 05:00 96 31 158/81 (106) 92 07/03/20 05:00 26 Mechanical Ventilator 100 07/03/20 05:00 26 96/55 Mechanical Ventilator 100 07/03/20 05:00 96 31 158/81 (106) 92 07/03/20 04:45 99 28 154/89 (110) 95 07/03/20 04:30 104 30 140/78 (98) 97 07/03/20 04:15 100 29 170/70 (103) 97 07/03/20 04:00 99.6 99 28 96/55 (69) 97 07/03/20 04:00 24 Mechanical Ventilator 100 07/03/20 04:00 24 94/54 Mechanical Ventilator 100 07/03/20 04:00 100 07/03/20 04:00 Mechanical Ventilator Mechanical Ventilator 07/03/20 03:45 99 26 107/57 (74) 95 07/03/20 03:30 99 27 91/56 (68) 97 07/03/20 03:15 97 07/03/20 03:15 98 22 105/60 (75) 95 07/03/20 03:03 99 27 100 07/03/20 03:00 26 Mechanical Ventilator 100 07/03/20 03:00 26 114/55 Mechanical Ventilator 100 07/03/20 03:00 98 26 94/54 (67) 98 07/03/20 02:45 99 27 98/54 (69) 98 07/03/20 02:30 99 26 114/55 (74) 98 07/03/20 02:15 100 26 118/59 (78) 96 07/03/20 02:00 99.0 95 26 108/57 (74) 97 07/03/20 02:00 26 Mechanical Ventilator 100 07/03/20 02:00 26 119/59 Mechanical Ventilator 100 07/03/20 01:45 96 27 108/63 (78) 97 07/03/20 01:30 95 26 122/64 (83) 97 07/03/20 01:15 93 25 138/61 (86) 93 07/03/20 01:00 93 26 136/59 (84) 93 07/03/20 01:00 24 Mechanical Ventilator 100 07/03/20 01:00 24 108/63 Mechanical Ventilator 100 07/03/20 00:55 92 24 100 07/03/20 00:45 93 26 136/65 (88) 94 07/03/20 00:30 92 25 128/69 (88) 94 07/03/20 00:15 91 25 131/59 (83) 94 07/03/20 00:03 89 07/03/20 00:00 100 07/03/20 00:00 23 Mechanical Ventilator 100 07/03/20 00:00 23 125/78 Mechanical Ventilator 100 07/03/20 00:00 Mechanical Ventilator Mechanical Ventilator 07/03/20 00:00 90 24 125/78 (94) 95 07/02/20 23:45 93 24 111/56 (74) 100 07/02/20 23:30 91 22 108/56 (73) 99 07/02/20 23:16 87 27 100 07/02/20 23:15 96.8 88 30 122/63 (82) 94 07/02/20 23:00 87 27 129/66 (87) 94 07/02/20 23:00 26 Mechanical Ventilator 100 07/02/20 23:00 26 122/63 Mechanical Ventilator 100 07/02/20 22:45 87 29 127/66 (86) 92 07/02/20 22:30 88 29 124/65 (84) 92 07/02/20 22:15 87 30 129/78 (95) 91 07/02/20 22:00 28 Mechanical Ventilator 100 07/02/20 22:00 31 129/78 Mechanical Ventilator 100 07/02/20 22:00 87 27 123/62 (82) 92 07/02/20 21:45 92 29 110/62 (78) 95 07/02/20 21:39 28 92/55 Mechanical Ventilator 100 07/02/20 21:30 93 25 92/55 (67) 97 07/02/20 21:24 102 28 100 07/02/20 21:15 102 22 112/65 (81) 99 07/02/20 21:00 102 23 152/73 (99) 100 07/02/20 21:00 30 Mechanical Ventilator 100 07/02/20 21:00 25 112/65 Mechanical Ventilator 100 07/02/20 20:45 91 27 162/67 (98) 93 07/02/20 20:39 93 164/76 07/02/20 20:30 95 28 164/76 (105) 99 07/02/20 20:15 90 28 167/72 (103) 94 07/02/20 20:00 100 07/02/20 20:00 97.0 93 26 158/70 (99) 95 07/02/20 20:00 34 Mechanical Ventilator 100 07/02/20 20:00 27 167/72 Mechanical Ventilator 100 07/02/20 20:00 Mechanical Ventilator Mechanical Ventilator 07/02/20 19:45 91 26 158/74 (102) 93 07/02/20 19:30 100 22 163/71 (101) 94 07/02/20 19:27 95 26 100 07/02/20 19:18 100 07/02/20 19:15 93 24 150/72 (98) 94 07/02/20 19:00 92 24 160/71 (100) 95 07/02/20 18:00 89 24 105/56 (72) 98 07/02/20 17:45 87 22 126/67 (86) 96 07/02/20 17:30 84 22 119/57 (77) 97 07/02/20 17:30 84 22 119/57 (77) 97 07/02/20 17:15 86 24 110/56 (74) 95 07/02/20 17:15 86 24 110/56 (74) 95 07/02/20 17:00 85 24 109/58 (75) 97 07/02/20 17:00 85 24 109/58 (75) 97 07/02/20 16:45 86 22 111/57 (75) 96 07/02/20 16:45 86 22 111/57 (75) 96 07/02/20 16:42 98.9 07/02/20 16:30 85 22 121/55 (77) 97 07/02/20 16:30 85 22 121/55 (77) 97 07/02/20 16:15 84 24 130/62 (84) 98 07/02/20 16:15 84 24 130/62 (84) 98 07/02/20 16:15 84 24 130/62 (84) 98 07/02/20 16:12 24 07/02/20 16:00 90 07/02/20 16:00 85 23 160/82 (108) 93 07/02/20 16:00 100 07/02/20 16:00 Mechanical Ventilator Mechanical Ventilator 07/02/20 16:00 85 23 160/82 (108) 93 07/02/20 16:00 85 23 160/82 (108) 93 07/02/20 15:45 84 25 110/68 (82) 95 07/02/20 15:45 84 25 110/68 (82) 95 07/02/20 15:30 84 24 134/60 (84) 94 07/02/20 15:30 84 24 134/60 (84) 94 07/02/20 15:20 83 24 100 07/02/20 15:15 83 24 135/75 (95) 94 07/02/20 15:15 83 24 135/75 (95) 94 07/02/20 15:00 84 24 119/76 (90) 97 07/02/20 15:00 84 24 119/76 (90) 97 07/02/20 14:45 83 23 132/76 (94) 99 07/02/20 14:30 84 24 133/74 (93) 97 07/02/20 14:15 83 25 124/64 (84) 100 07/02/20 14:00 90 23 130/69 (89) 98 07/02/20 14:00 90 23 130/69 (89) 98 07/02/20 13:45 94 28 141/74 (96) 92 07/02/20 13:30 79 27 150/79 (102) 84 07/02/20 13:15 87 17 143/74 (97) 99 07/02/20 13:00 85 17 148/75 (99) 100 07/02/20 12:52 78 29 165/79 (107) 75 07/02/20 12:45 78 29 162/87 (112) 69 07/02/20 12:30 156/85 (108) Intake and Output0 07/02/20 07/03/20 19:00 07:00 Intake Total 1633 ml 1642 ml Output Total 630 ml 843 ml Balance 1003 ml 799 ml Intake Free Water 1050 ml 300 ml IV Total 143 ml 682 ml Tube Feeding 440 ml 660 ml Output Urine Total 630 ml 715 ml Chest Tube Drainage Total 128 ml Current Medications Medications (Trade) Dose Ordered Sig/Maya Route PRN Reason Start Time Stop Time Status Last Admin Dose Admin Acetaminophen (Tylenol) 500 mg Q4H PRN ORAL Mild Pain (Pain Scale 1-3) 06/18/20 00:15 2/27/21 00:14 06/24/20 17:51 Acetaminophen (Tylenol) 500 mg Q4H PRN ORAL Temp >100.5 06/18/20 00:15 07/18/20 00:14 06/29/20 20:01 Carvedilol (Coreg) 6.25 mg EVERY 12 HOURS ORAL 06/22/20 21:00 07/22/20 20:59 07/02/20 20:39 Cefepime HCl 1 gm/ Dextrose 55 ml @ 110 mls/hr DAILY IVPB 07/04/20 09:00 07/08/20 12:00 Chlorhexidine Gluconate (Sissy-Hex 2%) 1 applic DAILY@2000 TOPIC 06/28/20 20:00 09/26/20 19:59 07/02/20 20:37 Dextrose (Dextrose 50%) 25 ml Q30M PRN IV Hypoglycemia 06/18/20 14:15 09/16/20 14:14 Dextrose (Dextrose 50%) 50 ml Q30M PRN IV Hypoglycemia 06/18/20 14:15 09/16/20 14:14 Docusate Sodium (Colace) 100 mg EVERY 8 HOURS NG 07/02/20 14:00 07/28/20 12:59 07/03/20 06:22 Fentanyl Citrate 1000 mcg/Sodium Chloride 100 ml @ 1 mls/hr Q24H IV 07/01/20 22:30 07/03/20 22:29 07/02/20 21:39 Furosemide (Lasix) 40 mg DAILY IV 06/28/20 17:45 07/28/20 16:59 07/03/20 09:00 Haloperidol Lactate (Haldol) 10 mg Q6H PRN IM Agitation 06/23/20 11:30 08/07/20 11:29 06/23/20 11:34 Insulin Aspart (NovoLOG) while NPO Q6HR SUBQ 06/18/20 18:00 09/16/20 17:59 07/03/20 00:04 Midazolam HCl 100 ml @ 0 mls/hr Q24H PRN IV To Patient Comfort 07/02/20 05:15 07/04/20 05:14 07/03/20 12:08 Pantoprazole (Protonix) 40 mg EVERY 12 HOURS IVP 06/18/20 21:00 07/18/20 20:59 07/03/20 09:00 Sodium Chloride 1,000 ml @ 50 mls/hr Q20H IV 06/26/20 08:00 07/26/20 07:59 07/02/20 20:40 Vitamin D (Vitamin D) 2,000 unit DAILY GT 06/29/20 10:30 07/29/20 10:29 07/03/20 09:00 Laboratory Tests 07/03/20 03:40: White Blood Count 8.4, Red Blood Count 3.29L, Hemoglobin 10.0L, Hematocrit 31.6L , Mean Corpuscular Volume 96, Mean Corpuscular Hemoglobin 30.5, Mean Corpuscular Hemoglobin Concent 31.6L, Red Cell Distribution Width 15.1H, Platelet Count 90L, Mean Platelet Volume 9.5, Neutrophils (%) (Auto) , Lymphocytes (%) (Auto) , Monocytes (%) (Auto) , Eosinophils (%) (Auto) , Basophils (%) (Auto) , Differential Total Cells Counted 100, Neutrophils % (Manual) 81H, Lymphocytes % (Manual) 11L, Monocytes % (Manual) 3, Eosinophils % (Manual) 5H, Basophils % (Manual) 0, Band Neutrophils 0, Platelet Estimate DecreasedL, Platelet Morphology Normal, Hypochromasia 1+, Anisocytosis 1+, Sodium Level 146H, Potassium Level 3.9, Chloride Level 109H, Carbon Dioxide Level 36H, Anion Gap 1L , Blood Urea Nitrogen 21H, Creatinine 0.4L, Estimat Glomerular Filtration Rate > 60, Glucose Level 128H, Calcium Level 7.6L, Phosphorus Level 2.5, Magnesium Level 2.0, Total Bilirubin 0.6, Direct Bilirubin < 0.1, Aspartate Amino Transf (AST/SGOT) 57H, Alanine Aminotransferase (ALT/SGPT) 48, Alkaline Phosphatase 103 , Total Protein 5.4L, Albumin 1.2L Height (Feet): 5 Height (Inches): 2.00 Weight (Pounds): 138 General Appearance: mild distress EENT: other - Intubated on ventilator Cardiovascular: tachycardia Respiratory/Chest: other - Bilateral chest tube Abdomen: distended Raza De Jesus MD Jul 03, 2020 12:21
--- NOTE | 2020-07-03 12:52 | Infectious Diseases Prog Note ---
Assessment/Plan Assessment/Plan A; Fever Sepsis COVID19 pneumonia Hypoxic respiratory failure Acute kidney injury, resolving Hyperglycemia, DM type 2 Bilateral pneumothorax Leukocytosis resolved Anemia P; Finished Remdesivir & Dexamethasone course Continue Cefepime Poor prognosis Subjective ROS Limited/Unobtainable: Yes Constitutional: Denies: fever Allergies: Coded Allergies: No Known Allergies (Unverified , 06/17/20) Objective Last 24 Hour Vital Signs Date Time Temp Pulse Resp B/P (MAP) Pulse Ox O2 Delivery O2 Flow Rate FiO2 07/03/20 12:08 26 Mechanical Ventilator 100 07/03/20 12:00 103 28 116/58 (77) 94 07/03/20 12:00 Mechanical Ventilator Mechanical Ventilator 07/03/20 12:00 100 07/03/20 12:00 97 07/03/20 11:45 102 26 119/56 (77) 97 07/03/20 11:30 103 25 143/69 (93) 98 07/03/20 11:30 103 25 143/69 (93) 98 07/03/20 11:25 102 25 100 07/03/20 11:15 102 25 137/60 (85) 96 07/03/20 11:15 102 25 137/60 (85) 96 07/03/20 11:00 101 26 126/69 (88) 95 07/03/20 11:00 101 26 126/69 (88) 95 07/03/20 10:51 99 28 94 Mechanical Ventilator 80 07/03/20 10:45 102 27 119/58 (78) 95 07/03/20 10:30 101 27 109/71 (84) 95 07/03/20 10:15 99 27 100/52 (68) 96 07/03/20 10:00 98 25 93/54 (67) 95 07/03/20 10:00 98 25 93/54 (67) 95 07/03/20 09:45 96 24 102/55 (71) 96 07/03/20 09:30 96 24 97/52 (67) 98 07/03/20 09:15 97 24 103/54 (70) 97 07/03/20 09:00 100 23 99 07/03/20 09:00 75 105/66 07/03/20 09:00 100 23 128/63 (84) 99 07/03/20 08:45 102 24 145/58 (87) 99 07/03/20 08:30 101 24 146/66 (92) 99 07/03/20 08:15 104 25 146/72 (96) 99 07/03/20 08:00 100 07/03/20 08:00 Mechanical Ventilator Mechanical Ventilator 07/03/20 08:00 98 30 142/69 (93) 92 07/03/20 08:00 97 07/03/20 07:45 99 31 147/71 (96) 92 07/03/20 07:40 99 28 100 07/03/20 07:30 95 33 164/72 (102) 90 07/03/20 07:15 101 28 100/51 (67) 97 07/03/20 07:15 101 28 100/51 (67) 97 07/03/20 07:00 100 27 95/51 (66) 96 07/03/20 07:00 100 27 95/51 (66) 96 07/03/20 06:45 99 26 93/50 (64) 97 07/03/20 06:30 97.8 102 26 106/55 (72) 97 07/03/20 06:30 102 26 106/55 (72) 97 07/03/20 06:15 103 26 125/71 (89) 95 07/03/20 06:15 103 26 125/71 (89) 95 07/03/20 06:00 26 Mechanical Ventilator 100 07/03/20 06:00 26 125/55 Mechanical Ventilator 100 07/03/20 06:00 102 24 155/68 (97) 94 07/03/20 06:00 102 24 155/68 (97) 94 07/03/20 05:45 99 37 164/67 (99) 90 07/03/20 05:45 99 37 164/67 (99) 90 07/03/20 05:30 98.1 101 38 146/77 (100) 92 07/03/20 05:30 101 38 146/77 (100) 92 07/03/20 05:15 99 30 146/78 (100) 92 07/03/20 05:15 99 30 146/78 (100) 92 07/03/20 05:00 96 31 158/81 (106) 92 07/03/20 05:00 26 Mechanical Ventilator 100 07/03/20 05:00 26 96/55 Mechanical Ventilator 100 07/03/20 05:00 96 31 158/81 (106) 92 07/03/20 04:45 99 28 154/89 (110) 95 07/03/20 04:30 104 30 140/78 (98) 97 07/03/20 04:15 100 29 170/70 (103) 97 07/03/20 04:00 99.6 99 28 96/55 (69) 97 07/03/20 04:00 24 Mechanical Ventilator 100 07/03/20 04:00 24 94/54 Mechanical Ventilator 100 07/03/20 04:00 100 07/03/20 04:00 Mechanical Ventilator Mechanical Ventilator 07/03/20 03:45 99 26 107/57 (74) 95 07/03/20 03:30 99 27 91/56 (68) 97 07/03/20 03:15 97 07/03/20 03:15 98 22 105/60 (75) 95 07/03/20 03:03 99 27 100 07/03/20 03:00 26 Mechanical Ventilator 100 07/03/20 03:00 26 114/55 Mechanical Ventilator 100 07/03/20 03:00 98 26 94/54 (67) 98 07/03/20 02:45 99 27 98/54 (69) 98 07/03/20 02:30 99 26 114/55 (74) 98 07/03/20 02:15 100 26 118/59 (78) 96 07/03/20 02:00 99.0 95 26 108/57 (74) 97 07/03/20 02:00 26 Mechanical Ventilator 100 07/03/20 02:00 26 119/59 Mechanical Ventilator 100 07/03/20 01:45 96 27 108/63 (78) 97 07/03/20 01:30 95 26 122/64 (83) 97 07/03/20 01:15 93 25 138/61 (86) 93 07/03/20 01:00 93 26 136/59 (84) 93 07/03/20 01:00 24 Mechanical Ventilator 100 07/03/20 01:00 24 108/63 Mechanical Ventilator 100 07/03/20 00:55 92 24 100 07/03/20 00:45 93 26 136/65 (88) 94 07/03/20 00:30 92 25 128/69 (88) 94 07/03/20 00:15 91 25 131/59 (83) 94 07/03/20 00:03 89 07/03/20 00:00 100 07/03/20 00:00 23 Mechanical Ventilator 100 07/03/20 00:00 23 125/78 Mechanical Ventilator 100 07/03/20 00:00 Mechanical Ventilator Mechanical Ventilator 07/03/20 00:00 90 24 125/78 (94) 95 07/02/20 23:45 93 24 111/56 (74) 100 07/02/20 23:30 91 22 108/56 (73) 99 07/02/20 23:16 87 27 100 07/02/20 23:15 96.8 88 30 122/63 (82) 94 07/02/20 23:00 87 27 129/66 (87) 94 07/02/20 23:00 26 Mechanical Ventilator 100 07/02/20 23:00 26 122/63 Mechanical Ventilator 100 07/02/20 22:45 87 29 127/66 (86) 92 07/02/20 22:30 88 29 124/65 (84) 92 07/02/20 22:15 87 30 129/78 (95) 91 07/02/20 22:00 28 Mechanical Ventilator 100 07/02/20 22:00 31 129/78 Mechanical Ventilator 100 07/02/20 22:00 87 27 123/62 (82) 92 07/02/20 21:45 92 29 110/62 (78) 95 07/02/20 21:39 28 92/55 Mechanical Ventilator 100 07/02/20 21:30 93 25 92/55 (67) 97 07/02/20 21:24 102 28 100 07/02/20 21:15 102 22 112/65 (81) 99 07/02/20 21:00 102 23 152/73 (99) 100 07/02/20 21:00 30 Mechanical Ventilator 100 07/02/20 21:00 25 112/65 Mechanical Ventilator 100 07/02/20 20:45 91 27 162/67 (98) 93 07/02/20 20:39 93 164/76 07/02/20 20:30 95 28 164/76 (105) 99 07/02/20 20:15 90 28 167/72 (103) 94 07/02/20 20:00 100 07/02/20 20:00 97.0 93 26 158/70 (99) 95 07/02/20 20:00 34 Mechanical Ventilator 100 07/02/20 20:00 27 167/72 Mechanical Ventilator 100 07/02/20 20:00 Mechanical Ventilator Mechanical Ventilator 07/02/20 19:45 91 26 158/74 (102) 93 07/02/20 19:30 100 22 163/71 (101) 94 07/02/20 19:27 95 26 100 07/02/20 19:18 100 07/02/20 19:15 93 24 150/72 (98) 94 07/02/20 19:00 92 24 160/71 (100) 95 07/02/20 18:00 89 24 105/56 (72) 98 07/02/20 17:45 87 22 126/67 (86) 96 07/02/20 17:30 84 22 119/57 (77) 97 07/02/20 17:30 84 22 119/57 (77) 97 07/02/20 17:15 86 24 110/56 (74) 95 07/02/20 17:15 86 24 110/56 (74) 95 07/02/20 17:00 85 24 109/58 (75) 97 07/02/20 17:00 85 24 109/58 (75) 97 07/02/20 16:45 86 22 111/57 (75) 96 07/02/20 16:45 86 22 111/57 (75) 96 07/02/20 16:42 98.9 07/02/20 16:30 85 22 121/55 (77) 97 07/02/20 16:30 85 22 121/55 (77) 97 07/02/20 16:15 84 24 130/62 (84) 98 07/02/20 16:15 84 24 130/62 (84) 98 07/02/20 16:15 84 24 130/62 (84) 98 07/02/20 16:12 24 07/02/20 16:00 90 07/02/20 16:00 85 23 160/82 (108) 93 07/02/20 16:00 100 07/02/20 16:00 Mechanical Ventilator Mechanical Ventilator 07/02/20 16:00 85 23 160/82 (108) 93 07/02/20 16:00 85 23 160/82 (108) 93 07/02/20 15:45 84 25 110/68 (82) 95 07/02/20 15:45 84 25 110/68 (82) 95 07/02/20 15:30 84 24 134/60 (84) 94 07/02/20 15:30 84 24 134/60 (84) 94 07/02/20 15:20 83 24 100 07/02/20 15:15 83 24 135/75 (95) 94 07/02/20 15:15 83 24 135/75 (95) 94 07/02/20 15:00 84 24 119/76 (90) 97 07/02/20 15:00 84 24 119/76 (90) 97 07/02/20 14:45 83 23 132/76 (94) 99 07/02/20 14:30 84 24 133/74 (93) 97 07/02/20 14:15 83 25 124/64 (84) 100 07/02/20 14:00 90 23 130/69 (89) 98 07/02/20 14:00 90 23 130/69 (89) 98 07/02/20 13:45 94 28 141/74 (96) 92 07/02/20 13:30 79 27 150/79 (102) 84 07/02/20 13:15 87 17 143/74 (97) 99 07/02/20 13:00 85 17 148/75 (99) 100 07/02/20 12:52 78 29 165/79 (107) 75 Height (Feet): 5 Height (Inches): 2.00 Weight (Pounds): 138 HEENT: other - orally intubated Respiratory/Chest: other Cardiovascular: tachycardia Abdomen: soft, non tender Extremities: other - dependent edema Neurologic/Psychiatric: other - sedated Laboratory Tests Test 07/03/20 03:40 White Blood Count 8.4 K/UL (4.8-10.8) Red Blood Count 3.29 M/UL (4.20-5.40) L Hemoglobin 10.0 G/DL (12.0-16.0) L Hematocrit 31.6 % (37.0-47.0) L Mean Corpuscular Volume 96 FL (80-99) Mean Corpuscular Hemoglobin 30.5 PG (27.0-31.0) Mean Corpuscular Hemoglobin Concent 31.6 G/DL (32.0-36.0) L Red Cell Distribution Width 15.1 % (11.6-14.8) H Platelet Count 90 K/UL (150-450) L Mean Platelet Volume 9.5 FL (6.5-10.1) Neutrophils (%) (Auto) % (45.0-75.0) Lymphocytes (%) (Auto) % (20.0-45.0) Monocytes (%) (Auto) % (1.0-10.0) Eosinophils (%) (Auto) % (0.0-3.0) Basophils (%) (Auto) % (0.0-2.0) Differential Total Cells Counted 100 Neutrophils % (Manual) 81 % (45-75) H Lymphocytes % (Manual) 11 % (20-45) L Monocytes % (Manual) 3 % (1-10) Eosinophils % (Manual) 5 % (0-3) H Basophils % (Manual) 0 % (0-2) Band Neutrophils 0 % (0-8) Platelet Estimate Decreased L Platelet Morphology Normal Hypochromasia 1+ Anisocytosis 1+ Sodium Level 146 MMOL/L (136-145) H Potassium Level 3.9 MMOL/L (3.5-5.1) Chloride Level 109 MMOL/L (98-107) H Carbon Dioxide Level 36 MMOL/L (21-32) H Anion Gap 1 mmol/L (5-15) L Blood Urea Nitrogen 21 mg/dL (7-18) H Creatinine 0.4 MG/DL (0.55-1.30) L Estimat Glomerular Filtration Rate > 60 mL/min (>60) Glucose Level 128 MG/DL (74-106) H Calcium Level 7.6 MG/DL (8.5-10.1) L Phosphorus Level 2.5 MG/DL (2.5-4.9) Magnesium Level 2.0 MG/DL (1.8-2.4) Total Bilirubin 0.6 MG/DL (0.2-1.0) Direct Bilirubin < 0.1 MG/DL (0.0-0.3) Aspartate Amino Transf (AST/SGOT) 57 U/L (15-37) H Alanine Aminotransferase (ALT/SGPT) 48 U/L (12-78) Alkaline Phosphatase 103 U/L (46-116) Total Protein 5.4 G/DL (6.4-8.2) L Albumin 1.2 G/DL (3.4-5.0) L Current Medications Medications (Trade) Dose Ordered Sig/Maya Route PRN Reason Start Time Stop Time Status Last Admin Dose Admin Acetaminophen (Tylenol) 500 mg Q4H PRN ORAL Mild Pain (Pain Scale 1-3) 06/18/20 00:15 07/18/20 00:14 06/24/20 17:51 Acetaminophen (Tylenol) 500 mg Q4H PRN ORAL Temp >100.5 06/18/20 00:15 07/18/20 00:14 06/29/20 20:01 Carvedilol (Coreg) 6.25 mg EVERY 12 HOURS ORAL 06/22/20 21:00 07/22/20 20:59 07/02/20 20:39 Cefepime HCl 1 gm/ Dextrose 55 ml @ 110 mls/hr DAILY IVPB 07/04/20 09:00 07/08/20 12:00 Chlorhexidine Gluconate (Sissy-Hex 2%) 1 applic DAILY@2000 TOPIC 06/28/20 20:00 09/26/20 19:59 07/02/20 20:37 Dextrose (Dextrose 50%) 25 ml Q30M PRN IV Hypoglycemia 06/18/20 14:15 09/16/20 14:14 Dextrose (Dextrose 50%) 50 ml Q30M PRN IV Hypoglycemia 06/18/20 14:15 09/16/20 14:14 Docusate Sodium (Colace) 100 mg EVERY 8 HOURS NG 07/02/20 14:00 07/28/20 12:59 07/03/20 06:22 Fentanyl Citrate 1000 mcg/Sodium Chloride 100 ml @ 1 mls/hr Q24H IV 07/01/20 22:30 07/03/20 22:29 07/02/20 21:39 Furosemide (Lasix) 40 mg DAILY IV 06/28/20 17:45 07/28/20 16:59 07/03/20 09:00 Haloperidol Lactate (Haldol) 10 mg Q6H PRN IM Agitation 06/23/20 11:30 08/07/20 11:29 06/23/20 11:34 Insulin Aspart (NovoLOG) while NPO Q6HR SUBQ 06/18/20 18:00 09/16/20 17:59 07/03/20 00:04 Midazolam HCl 100 ml @ 0 mls/hr Q24H PRN IV To Patient Comfort 07/02/20 05:15 07/04/20 05:14 07/03/20 12:08 Pantoprazole (Protonix) 40 mg EVERY 12 HOURS IVP 06/18/20 21:00 07/18/20 20:59 07/03/20 09:00 Sodium Chloride 1,000 ml @ 50 mls/hr Q20H IV 06/26/20 08:00 07/26/20 07:59 07/02/20 20:40 Vitamin D (Vitamin D) 2,000 unit DAILY GT 06/29/20 10:30 07/29/20 10:29 07/03/20 09:00 Raji Turpin MD Jul 03, 2020 12:52
--- NOTE | 2020-07-03 13:13 | Cardiac Electrophysiology PN ---
Assessment/Plan Assessment/Plan 1. Respiratory failure likely due to COVID pneumonia. Intubated on 100% Fio2. Echocardiogram showed Nl EF 2. Bilateral pneumothoraces. S/P bilateral chest tube placement 3. Troponin elevation. Levels are low and flat could be demand ischemia vs Renal failure EKG shows sinus tachycardia at 110 beats per minute. 4. Hypernatremia with sodium of 155. Resolved 5. Volume overload. On Lasix 40 iv daily 6. COVID-19 positive and is in isolation, on dexamethasone, completed Remdesivir. 7. Hypertension, on Coreg 6.25 mg b.i.d. and Lasix DW RN Subjective Subjective Intubated in ICU on Fentanyl drip and Versed drip. Chest tubes drainage 100cc on R and 40cc on L. On 100% Fio2, PEEP 8 . Off pressors Objective Last 24 Hour Vital Signs Date Time Temp Pulse Resp B/P (MAP) Pulse Ox O2 Delivery O2 Flow Rate FiO2 07/03/20 12:08 26 Mechanical Ventilator 100 07/03/20 12:00 103 28 116/58 (77) 94 07/03/20 12:00 Mechanical Ventilator Mechanical Ventilator 07/03/20 12:00 100 07/03/20 12:00 97 07/03/20 11:45 102 26 119/56 (77) 97 07/03/20 11:30 103 25 143/69 (93) 98 07/03/20 11:30 103 25 143/69 (93) 98 07/03/20 11:25 102 25 100 07/03/20 11:15 102 25 137/60 (85) 96 07/03/20 11:15 102 25 137/60 (85) 96 07/03/20 11:00 101 26 126/69 (88) 95 07/03/20 11:00 101 26 126/69 (88) 95 07/03/20 10:51 99 28 94 Mechanical Ventilator 80 07/03/20 10:45 102 27 119/58 (78) 95 07/03/20 10:30 101 27 109/71 (84) 95 07/03/20 10:15 99 27 100/52 (68) 96 07/03/20 10:00 98 25 93/54 (67) 95 07/03/20 10:00 98 25 93/54 (67) 95 07/03/20 09:45 96 24 102/55 (71) 96 07/03/20 09:30 96 24 97/52 (67) 98 07/03/20 09:15 97 24 103/54 (70) 97 07/03/20 09:00 100 23 99 07/03/20 09:00 75 105/66 07/03/20 09:00 100 23 128/63 (84) 99 07/03/20 08:45 102 24 145/58 (87) 99 07/03/20 08:30 101 24 146/66 (92) 99 07/03/20 08:15 104 25 146/72 (96) 99 07/03/20 08:00 100 07/03/20 08:00 Mechanical Ventilator Mechanical Ventilator 07/03/20 08:00 98 30 142/69 (93) 92 07/03/20 08:00 97 07/03/20 07:45 99 31 147/71 (96) 92 07/03/20 07:40 99 28 100 07/03/20 07:30 95 33 164/72 (102) 90 07/03/20 07:15 101 28 100/51 (67) 97 07/03/20 07:15 101 28 100/51 (67) 97 07/03/20 07:00 100 27 95/51 (66) 96 07/03/20 07:00 100 27 95/51 (66) 96 07/03/20 06:45 99 26 93/50 (64) 97 07/03/20 06:30 97.8 102 26 106/55 (72) 97 07/03/20 06:30 102 26 106/55 (72) 97 07/03/20 06:15 103 26 125/71 (89) 95 07/03/20 06:15 103 26 125/71 (89) 95 07/03/20 06:00 26 Mechanical Ventilator 100 07/03/20 06:00 26 125/55 Mechanical Ventilator 100 07/03/20 06:00 102 24 155/68 (97) 94 07/03/20 06:00 102 24 155/68 (97) 94 07/03/20 05:45 99 37 164/67 (99) 90 07/03/20 05:45 99 37 164/67 (99) 90 07/03/20 05:30 98.1 101 38 146/77 (100) 92 07/03/20 05:30 101 38 146/77 (100) 92 07/03/20 05:15 99 30 146/78 (100) 92 07/03/20 05:15 99 30 146/78 (100) 92 07/03/20 05:00 96 31 158/81 (106) 92 07/03/20 05:00 26 Mechanical Ventilator 100 07/03/20 05:00 26 96/55 Mechanical Ventilator 100 07/03/20 05:00 96 31 158/81 (106) 92 07/03/20 04:45 99 28 154/89 (110) 95 07/03/20 04:30 104 30 140/78 (98) 97 07/03/20 04:15 100 29 170/70 (103) 97 07/03/20 04:00 99.6 99 28 96/55 (69) 97 07/03/20 04:00 24 Mechanical Ventilator 100 07/03/20 04:00 24 94/54 Mechanical Ventilator 100 07/03/20 04:00 100 07/03/20 04:00 Mechanical Ventilator Mechanical Ventilator 07/03/20 03:45 99 26 107/57 (74) 95 07/03/20 03:30 99 27 91/56 (68) 97 07/03/20 03:15 97 07/03/20 03:15 98 22 105/60 (75) 95 07/03/20 03:03 99 27 100 07/03/20 03:00 26 Mechanical Ventilator 100 07/03/20 03:00 26 114/55 Mechanical Ventilator 100 07/03/20 03:00 98 26 94/54 (67) 98 07/03/20 02:45 99 27 98/54 (69) 98 07/03/20 02:30 99 26 114/55 (74) 98 07/03/20 02:15 100 26 118/59 (78) 96 07/03/20 02:00 99.0 95 26 108/57 (74) 97 07/03/20 02:00 26 Mechanical Ventilator 100 07/03/20 02:00 26 119/59 Mechanical Ventilator 100 07/03/20 01:45 96 27 108/63 (78) 97 07/03/20 01:30 95 26 122/64 (83) 97 07/03/20 01:15 93 25 138/61 (86) 93 07/03/20 01:00 93 26 136/59 (84) 93 07/03/20 01:00 24 Mechanical Ventilator 100 07/03/20 01:00 24 108/63 Mechanical Ventilator 100 07/03/20 00:55 92 24 100 07/03/20 00:45 93 26 136/65 (88) 94 07/03/20 00:30 92 25 128/69 (88) 94 07/03/20 00:15 91 25 131/59 (83) 94 07/03/20 00:03 89 07/03/20 00:00 100 07/03/20 00:00 23 Mechanical Ventilator 100 07/03/20 00:00 23 125/78 Mechanical Ventilator 100 07/03/20 00:00 Mechanical Ventilator Mechanical Ventilator 07/03/20 00:00 90 24 125/78 (94) 95 07/02/20 23:45 93 24 111/56 (74) 100 07/02/20 23:30 91 22 108/56 (73) 99 07/02/20 23:16 87 27 100 07/02/20 23:15 96.8 88 30 122/63 (82) 94 07/02/20 23:00 87 27 129/66 (87) 94 07/02/20 23:00 26 Mechanical Ventilator 100 07/02/20 23:00 26 122/63 Mechanical Ventilator 100 07/02/20 22:45 87 29 127/66 (86) 92 07/02/20 22:30 88 29 124/65 (84) 92 07/02/20 22:15 87 30 129/78 (95) 91 07/02/20 22:00 28 Mechanical Ventilator 100 07/02/20 22:00 31 129/78 Mechanical Ventilator 100 07/02/20 22:00 87 27 123/62 (82) 92 07/02/20 21:45 92 29 110/62 (78) 95 07/02/20 21:39 28 92/55 Mechanical Ventilator 100 07/02/20 21:30 93 25 92/55 (67) 97 07/02/20 21:24 102 28 100 07/02/20 21:15 102 22 112/65 (81) 99 07/02/20 21:00 102 23 152/73 (99) 100 07/02/20 21:00 30 Mechanical Ventilator 100 07/02/20 21:00 25 112/65 Mechanical Ventilator 100 2/11/21 20:45 91 27 162/67 (98) 93 07/02/20 20:39 93 164/76 07/02/20 20:30 95 28 164/76 (105) 99 07/02/20 20:15 90 28 167/72 (103) 94 07/02/20 20:00 100 07/02/20 20:00 97.0 93 26 158/70 (99) 95 07/02/20 20:00 34 Mechanical Ventilator 100 07/02/20 20:00 27 167/72 Mechanical Ventilator 100 07/02/20 20:00 Mechanical Ventilator Mechanical Ventilator 07/02/20 19:45 91 26 158/74 (102) 93 07/02/20 19:30 100 22 163/71 (101) 94 07/02/20 19:27 95 26 100 07/02/20 19:18 100 07/02/20 19:15 93 24 150/72 (98) 94 07/02/20 19:00 92 24 160/71 (100) 95 07/02/20 18:00 89 24 105/56 (72) 98 07/02/20 17:45 87 22 126/67 (86) 96 07/02/20 17:30 84 22 119/57 (77) 97 07/02/20 17:30 84 22 119/57 (77) 97 07/02/20 17:15 86 24 110/56 (74) 95 07/02/20 17:15 86 24 110/56 (74) 95 07/02/20 17:00 85 24 109/58 (75) 97 07/02/20 17:00 85 24 109/58 (75) 97 07/02/20 16:45 86 22 111/57 (75) 96 07/02/20 16:45 86 22 111/57 (75) 96 07/02/20 16:42 98.9 07/02/20 16:30 85 22 121/55 (77) 97 07/02/20 16:30 85 22 121/55 (77) 97 07/02/20 16:15 84 24 130/62 (84) 98 07/02/20 16:15 84 24 130/62 (84) 98 07/02/20 16:15 84 24 130/62 (84) 98 07/02/20 16:12 24 07/02/20 16:00 90 07/02/20 16:00 85 23 160/82 (108) 93 07/02/20 16:00 100 07/02/20 16:00 Mechanical Ventilator Mechanical Ventilator 07/02/20 16:00 85 23 160/82 (108) 93 07/02/20 16:00 85 23 160/82 (108) 93 07/02/20 15:45 84 25 110/68 (82) 95 07/02/20 15:45 84 25 110/68 (82) 95 07/02/20 15:30 84 24 134/60 (84) 94 07/02/20 15:30 84 24 134/60 (84) 94 07/02/20 15:20 83 24 100 07/02/20 15:15 83 24 135/75 (95) 94 07/02/20 15:15 83 24 135/75 (95) 94 07/02/20 15:00 84 24 119/76 (90) 97 07/02/20 15:00 84 24 119/76 (90) 97 07/02/20 14:45 83 23 132/76 (94) 99 07/02/20 14:30 84 24 133/74 (93) 97 07/02/20 14:15 83 25 124/64 (84) 100 07/02/20 14:00 90 23 130/69 (89) 98 07/02/20 14:00 90 23 130/69 (89) 98 07/02/20 13:45 94 28 141/74 (96) 92 07/02/20 13:30 79 27 150/79 (102) 84 07/02/20 13:15 87 17 143/74 (97) 99 Intake and Output 07/02/20 07/03/20 19:00 07:00 Intake Total 1633 ml 1642 ml Output Total 630 ml 843 ml Balance 1003 ml 799 ml Intake Free Water 1050 ml 300 ml IV Total 143 ml 682 ml Tube Feeding 440 ml 660 ml Output Urine Total 630 ml 715 ml Chest Tube Drainage Total 128 ml Laboratory Tests Test 07/03/20 03:40 White Blood Count 8.4 K/UL (4.8-10.8) Red Blood Count 3.29 M/UL (4.20-5.40) L Hemoglobin 10.0 G/DL (12.0-16.0) L Hematocrit 31.6 % (37.0-47.0) L Mean Corpuscular Volume 96 FL (80-99) Mean Corpuscular Hemoglobin 30.5 PG (27.0-31.0) Mean Corpuscular Hemoglobin Concent 31.6 G/DL (32.0-36.0) L Red Cell Distribution Width 15.1 % (11.6-14.8) H Platelet Count 90 K/UL (150-450) L Mean Platelet Volume 9.5 FL (6.5-10.1) Neutrophils (%) (Auto) % (45.0-75.0) Lymphocytes (%) (Auto) % (20.0-45.0) Monocytes (%) (Auto) % (1.0-10.0) Eosinophils (%) (Auto) % (0.0-3.0) Basophils (%) (Auto) % (0.0-2.0) Differential Total Cells Counted 100 Neutrophils % (Manual) 81 % (45-75) H Lymphocytes % (Manual) 11 % (20-45) L Monocytes % (Manual) 3 % (1-10) Eosinophils % (Manual) 5 % (0-3) H Basophils % (Manual) 0 % (0-2) Band Neutrophils 0 % (0-8) Platelet Estimate Decreased L Platelet Morphology Normal Hypochromasia 1+ Anisocytosis 1+ Sodium Level 146 MMOL/L (136-145) H Potassium Level 3.9 MMOL/L (3.5-5.1) Chloride Level 109 MMOL/L (98-107) H Carbon Dioxide Level 36 MMOL/L (21-32) H Anion Gap 1 mmol/L (5-15) L Blood Urea Nitrogen 21 mg/dL (7-18) H Creatinine 0.4 MG/DL (0.55-1.30) L Estimat Glomerular Filtration Rate > 60 mL/min (>60) Glucose Level 128 MG/DL (74-106) H Calcium Level 7.6 MG/DL (8.5-10.1) L Phosphorus Level 2.5 MG/DL (2.5-4.9) Magnesium Level 2.0 MG/DL (1.8-2.4) Total Bilirubin 0.6 MG/DL (0.2-1.0) Direct Bilirubin < 0.1 MG/DL (0.0-0.3) Aspartate Amino Transf (AST/SGOT) 57 U/L (15-37) H Alanine Aminotransferase (ALT/SGPT) 48 U/L (12-78) Alkaline Phosphatase 103 U/L (46-116) Total Protein 5.4 G/DL (6.4-8.2) L Albumin 1.2 G/DL (3.4-5.0) L Objective HEAD AND NECK: No JVD.Orally intubated with SQ emphysema LUNGS: Coarse rhonchi bilaterally. Bilateral chest tubes in. CARDIOVASCULAR: Regular S1 and S2 and tachycardic. ABDOMEN: Soft. EXTREMITIES: No pitting edema. Maxwell Carreon MD Jul 03, 2020 13:13
--- NOTE | 2020-07-03 15:04 | NUR ---
INSURANCE CLINICALS/REVIEW FAXED TO [facility] T:[phone] F: [phone]
--- NOTE | 2020-07-03 18:39 | Surgery Progress Note ---
Surgery Progress Note Subjective Procedure Performed 1. right chest tube insertion 2. left chest tube insertion Additional Comments cxr improving no n/v chest tubes okay functional cont to suction Objective Last 24 Hour Vital Signs Date Time Temp Pulse Resp B/P (MAP) Pulse Ox O2 Delivery O2 Flow Rate FiO2 07/03/20 18:00 108 30 180/78 (112) 85 07/03/20 17:00 104 33 161/81 (107) 84 07/03/20 16:15 113 31 120/59 (79) 95 07/03/20 16:00 97 07/03/20 16:00 110 31 112/52 (72) 95 07/03/20 16:00 113 07/03/20 16:00 Mechanical Ventilator Mechanical Ventilator 07/03/20 16:00 100 07/03/20 15:45 110 30 111/57 (75) 95 07/03/20 15:42 112 30 100 07/03/20 15:30 113 30 120/59 (79) 96 07/03/20 15:30 110 30 108/53 (71) 96 07/03/20 15:15 109 30 114/53 (73) 96 07/03/20 15:00 109 30 96 07/03/20 15:00 109 30 110/61 (77) 96 07/03/20 14:30 106 29 107/61 (76) 97 07/03/20 14:15 105 29 100/54 (69) 98 07/03/20 14:00 105 28 104/57 (73) 99 07/03/20 13:45 106 28 103/55 (71) 97 07/03/20 13:30 104 29 102/57 (72) 98 07/03/20 13:15 106 29 100/51 (67) 98 07/03/20 13:00 103 28 104/54 (71) 96 07/03/20 13:00 98.9 105 27 102/57 (72) 100 07/03/20 12:45 103 27 93/54 (67) 97 07/03/20 12:38 99.1 07/03/20 12:30 105 29 107/52 (70) 96 07/03/20 12:15 103 28 100/58 (72) 95 07/03/20 12:08 26 Mechanical Ventilator 100 07/03/20 12:00 103 28 116/58 (77) 94 07/03/20 12:00 Mechanical Ventilator Mechanical Ventilator 07/03/20 12:00 100 07/03/20 12:00 103 28 116/58 (77) 94 07/03/20 12:00 97 07/03/20 11:45 102 26 119/56 (77) 97 07/03/20 11:30 103 25 143/69 (93) 98 07/03/20 11:30 103 25 143/69 (93) 98 07/03/20 11:25 102 25 100 07/03/20 11:15 102 25 137/60 (85) 96 07/03/20 11:15 102 25 137/60 (85) 96 07/03/20 11:00 101 26 126/69 (88) 95 07/03/20 11:00 101 26 126/69 (88) 95 07/03/20 10:51 99 28 94 Mechanical Ventilator 80 07/03/20 10:45 102 27 119/58 (78) 95 07/03/20 10:30 101 27 109/71 (84) 95 07/03/20 10:15 99 27 100/52 (68) 96 07/03/20 10:00 98 25 93/54 (67) 95 07/03/20 10:00 98 25 93/54 (67) 95 07/03/20 09:45 96 24 102/55 (71) 96 07/03/20 09:30 96 24 97/52 (67) 98 07/03/20 09:15 97 24 103/54 (70) 97 07/03/20 09:00 100 23 99 07/03/20 09:00 75 105/66 07/03/20 09:00 100 23 128/63 (84) 99 07/03/20 08:45 102 24 145/58 (87) 99 07/03/20 08:30 101 24 146/66 (92) 99 07/03/20 08:15 104 25 146/72 (96) 99 07/03/20 08:00 100 07/03/20 08:00 Mechanical Ventilator Mechanical Ventilator 07/03/20 08:00 98 30 142/69 (93) 92 07/03/20 08:00 97 07/03/20 07:45 99 31 147/71 (96) 92 07/03/20 07:40 99 28 100 07/03/20 07:30 95 33 164/72 (102) 90 07/03/20 07:15 101 28 100/51 (67) 97 07/03/20 07:15 101 28 100/51 (67) 97 07/03/20 07:00 100 27 95/51 (66) 96 07/03/20 07:00 100 27 95/51 (66) 96 07/03/20 06:45 99 26 93/50 (64) 97 07/03/20 06:30 97.8 102 26 106/55 (72) 97 07/03/20 06:30 102 26 106/55 (72) 97 07/03/20 06:15 103 26 125/71 (89) 95 07/03/20 06:15 103 26 125/71 (89) 95 07/03/20 06:00 26 Mechanical Ventilator 100 07/03/20 06:00 26 125/55 Mechanical Ventilator 100 07/03/20 06:00 102 24 155/68 (97) 94 07/03/20 06:00 102 24 155/68 (97) 94 07/03/20 05:45 99 37 164/67 (99) 90 07/03/20 05:45 99 37 164/67 (99) 90 07/03/20 05:30 98.1 101 38 146/77 (100) 92 07/03/20 05:30 101 38 146/77 (100) 92 07/03/20 05:15 99 30 146/78 (100) 92 07/03/20 05:15 99 30 146/78 (100) 92 07/03/20 05:00 96 31 158/81 (106) 92 07/03/20 05:00 26 Mechanical Ventilator 100 07/03/20 05:00 26 96/55 Mechanical Ventilator 100 07/03/20 05:00 96 31 158/81 (106) 92 07/03/20 04:45 99 28 154/89 (110) 95 07/03/20 04:30 104 30 140/78 (98) 97 07/03/20 04:15 100 29 170/70 (103) 97 07/03/20 04:00 99.6 99 28 96/55 (69) 97 07/03/20 04:00 24 Mechanical Ventilator 100 07/03/20 04:00 24 94/54 Mechanical Ventilator 100 07/03/20 04:00 100 07/03/20 04:00 Mechanical Ventilator Mechanical Ventilator 07/03/20 03:45 99 26 107/57 (74) 95 07/03/20 03:30 99 27 91/56 (68) 97 07/03/20 03:15 97 07/03/20 03:15 98 22 105/60 (75) 95 07/03/20 03:03 99 27 100 07/03/20 03:00 26 Mechanical Ventilator 100 07/03/20 03:00 26 114/55 Mechanical Ventilator 100 07/03/20 03:00 98 26 94/54 (67) 98 07/03/20 02:45 99 27 98/54 (69) 98 07/03/20 02:30 99 26 114/55 (74) 98 07/03/20 02:15 100 26 118/59 (78) 96 07/03/20 02:00 99.0 95 26 108/57 (74) 97 07/03/20 02:00 26 Mechanical Ventilator 100 07/03/20 02:00 26 119/59 Mechanical Ventilator 100 07/03/20 01:45 96 27 108/63 (78) 97 07/03/20 01:30 95 26 122/64 (83) 97 07/03/20 01:15 93 25 138/61 (86) 93 07/03/20 01:00 93 26 136/59 (84) 93 07/03/20 01:00 24 Mechanical Ventilator 100 07/03/20 01:00 24 108/63 Mechanical Ventilator 100 07/03/20 00:55 92 24 100 07/03/20 00:45 93 26 136/65 (88) 94 07/03/20 00:30 92 25 128/69 (88) 94 07/03/20 00:15 91 25 131/59 (83) 94 07/03/20 00:03 89 07/03/20 00:00 100 07/03/20 00:00 23 Mechanical Ventilator 100 07/03/20 00:00 23 125/78 Mechanical Ventilator 100 07/03/20 00:00 Mechanical Ventilator Mechanical Ventilator 07/03/20 00:00 90 24 125/78 (94) 95 07/02/20 23:45 93 24 111/56 (74) 100 07/02/20 23:30 91 22 108/56 (73) 99 07/02/20 23:16 87 27 100 07/02/20 23:15 96.8 88 30 122/63 (82) 94 07/02/20 23:00 87 27 129/66 (87) 94 07/02/20 23:00 26 Mechanical Ventilator 100 07/02/20 23:00 26 122/63 Mechanical Ventilator 100 07/02/20 22:45 87 29 127/66 (86) 92 07/02/20 22:30 88 29 124/65 (84) 92 07/02/20 22:15 87 30 129/78 (95) 91 07/02/20 22:00 28 Mechanical Ventilator 100 07/02/20 22:00 31 129/78 Mechanical Ventilator 100 07/02/20 22:00 87 27 123/62 (82) 92 07/02/20 21:45 92 29 110/62 (78) 95 07/02/20 21:39 28 92/55 Mechanical Ventilator 100 07/02/20 21:30 93 25 92/55 (67) 97 07/02/20 21:24 102 28 100 07/02/20 21:15 102 22 112/65 (81) 99 07/02/20 21:00 102 23 152/73 (99) 100 07/02/20 21:00 30 Mechanical Ventilator 100 07/02/20 21:00 25 112/65 Mechanical Ventilator 100 07/02/20 20:45 91 27 162/67 (98) 93 07/02/20 20:39 93 164/76 07/02/20 20:30 95 28 164/76 (105) 99 07/02/20 20:15 90 28 167/72 (103) 94 07/02/20 20:00 100 07/02/20 20:00 97.0 93 26 158/70 (99) 95 07/02/20 20:00 34 Mechanical Ventilator 100 07/02/20 20:00 27 167/72 Mechanical Ventilator 100 07/02/20 20:00 Mechanical Ventilator Mechanical Ventilator 07/02/20 19:45 91 26 158/74 (102) 93 07/02/20 19:30 100 22 163/71 (101) 94 07/02/20 19:27 95 26 100 07/02/20 19:18 100 07/02/20 19:15 93 24 150/72 (98) 94 07/02/20 19:00 92 24 160/71 (100) 95 I&O Intake and Output 07/02/20 07/03/20 19:00 07:00 Intake Total 1633 ml 1642 ml Output Total 630 ml 843 ml Balance 1003 ml 799 ml Intake Free Water 1050 ml 300 ml IV Total 143 ml 682 ml Tube Feeding 440 ml 660 ml Output Urine Total 630 ml 715 ml Chest Tube Drainage Total 128 ml Dressing: saturated Cardiovascular: RSR Respiratory: decreased breath sounds Abdomen: soft, non-tender, decreased bowel sounds Extremities: edema, no tenderness, no cyanosis Laboratory Tests Test 07/03/20 03:40 White Blood Count 8.4 K/UL (4.8-10.8) Red Blood Count 3.29 M/UL (4.20-5.40) L Hemoglobin 10.0 G/DL (12.0-16.0) L Hematocrit 31.6 % (37.0-47.0) L Mean Corpuscular Volume 96 FL (80-99) Mean Corpuscular Hemoglobin 30.5 PG (27.0-31.0) Mean Corpuscular Hemoglobin Concent 31.6 G/DL (32.0-36.0) L Red Cell Distribution Width 15.1 % (11.6-14.8) H Platelet Count 90 K/UL (150-450) L Mean Platelet Volume 9.5 FL (6.5-10.1) Neutrophils (%) (Auto) % (45.0-75.0) Lymphocytes (%) (Auto) % (20.0-45.0) Monocytes (%) (Auto) % (1.0-10.0) Eosinophils (%) (Auto) % (0.0-3.0) Basophils (%) (Auto) % (0.0-2.0) Differential Total Cells Counted 100 Neutrophils % (Manual) 81 % (45-75) H Lymphocytes % (Manual) 11 % (20-45) L Monocytes % (Manual) 3 % (1-10) Eosinophils % (Manual) 5 % (0-3) H Basophils % (Manual) 0 % (0-2) Band Neutrophils 0 % (0-8) Platelet Estimate Decreased L Platelet Morphology Normal Hypochromasia 1+ Anisocytosis 1+ Sodium Level 146 MMOL/L (136-145) H Potassium Level 3.9 MMOL/L (3.5-5.1) Chloride Level 109 MMOL/L (98-107) H Carbon Dioxide Level 36 MMOL/L (21-32) H Anion Gap 1 mmol/L (5-15) L Blood Urea Nitrogen 21 mg/dL (7-18) H Creatinine 0.4 MG/DL (0.55-1.30) L Estimat Glomerular Filtration Rate > 60 mL/min (>60) Glucose Level 128 MG/DL (74-106) H Calcium Level 7.6 MG/DL (8.5-10.1) L Phosphorus Level 2.5 MG/DL (2.5-4.9) Magnesium Level 2.0 MG/DL (1.8-2.4) Total Bilirubin 0.6 MG/DL (0.2-1.0) Direct Bilirubin < 0.1 MG/DL (0.0-0.3) Aspartate Amino Transf (AST/SGOT) 57 U/L (15-37) H Alanine Aminotransferase (ALT/SGPT) 48 U/L (12-78) Alkaline Phosphatase 103 U/L (46-116) Total Protein 5.4 G/DL (6.4-8.2) L Albumin 1.2 G/DL (3.4-5.0) L Plan Problems: (1) Renal insufficiency (2) Elevated d-dimer (3) Dehydration (4) LEONARDO (acute kidney injury) (5) DMII (diabetes mellitus, type 2) (6) Hypoxia (7) Pneumonia due to COVID-19 virus (8) PNA (pneumonia) (9) Pneumothorax Assessment & Plan: Bilateral pneumothorax status post bilateral chest tubes. Still on significant vent support. leak performed. Continue weaning vent. Continue with chest tubes. Will monitor and manage chest tubes accordingly. Thank you for let me to participate in patient's care Continue bilateral chest tubes on suction the airleak is worse her peak pressures are high prognosis overall is guarded. Imaging reviewed Bilateral air leaks noted high pressures continue chest tube suction Elpidio Frazier Jul 03, 2020 18:39
--- NOTE | 2020-07-03 19:15 | NUR ---
Received report from NORMAN Lyon and assumed care of patient.
[2020-07-03] MEDS: fentaNYL 2500mcg/NS 250ml 250 ML IV SCH (20:30)
[2020-07-03] MEDS: Dyna-Hex 2% Top Sol 2oz TOPIC SCH (20:46)
--- NOTE | 2020-07-03 21:00 | NUR ---
Pulled medications for evening and saw that NORMAN Lyon pulled out coreg @ 1852 from [employer], due to this pull/potential late administration held this evening dose as it is too close to previous pull for administration. Same occurred for Colace so it was also held. Patient assessed, VSS, oral care provided, repositioned. Will continue to monitor.
--- NOTE | 2020-07-03 21:05 | General Progress Note ---
Subjective ROS Limited/Unobtainable: Yes Allergies: Coded Allergies: No Known Allergies (Unverified , 06/17/20) Objective Last 24 Hour Vital Signs Date Time Temp Pulse Resp B/P (MAP) Pulse Ox O2 Delivery O2 Flow Rate FiO2 07/03/20 19:08 104 25 100 07/03/20 18:00 108 30 180/78 (112) 85 07/03/20 17:00 104 33 161/81 (107) 84 07/03/20 16:15 113 31 120/59 (79) 95 07/03/20 16:00 97 07/03/20 16:00 110 31 112/52 (72) 95 07/03/20 16:00 113 07/03/20 16:00 Mechanical Ventilator Mechanical Ventilator 07/03/20 16:00 100 07/03/20 15:45 110 30 111/57 (75) 95 07/03/20 15:42 112 30 100 07/03/20 15:30 113 30 120/59 (79) 96 07/03/20 15:30 110 30 108/53 (71) 96 07/03/20 15:15 109 30 114/53 (73) 96 07/03/20 15:00 109 30 96 07/03/20 15:00 109 30 110/61 (77) 96 07/03/20 14:30 106 29 107/61 (76) 97 07/03/20 14:15 105 29 100/54 (69) 98 07/03/20 14:00 105 28 104/57 (73) 99 07/03/20 13:45 106 28 103/55 (71) 97 07/03/20 13:30 104 29 102/57 (72) 98 07/03/20 13:15 106 29 100/51 (67) 98 07/03/20 13:00 103 28 104/54 (71) 96 07/03/20 13:00 98.9 105 27 102/57 (72) 100 07/03/20 12:45 103 27 93/54 (67) 97 07/03/20 12:38 99.1 07/03/20 12:30 105 29 107/52 (70) 96 07/03/20 12:15 103 28 100/58 (72) 95 07/03/20 12:08 26 Mechanical Ventilator 100 07/03/20 12:00 103 28 116/58 (77) 94 07/03/20 12:00 Mechanical Ventilator Mechanical Ventilator 07/03/20 12:00 100 07/03/20 12:00 103 28 116/58 (77) 94 07/03/20 12:00 97 07/03/20 11:45 102 26 119/56 (77) 97 07/03/20 11:30 103 25 143/69 (93) 98 07/03/20 11:30 103 25 143/69 (93) 98 07/03/20 11:25 102 25 100 07/03/20 11:15 102 25 137/60 (85) 96 07/03/20 11:15 102 25 137/60 (85) 96 07/03/20 11:00 101 26 126/69 (88) 95 07/03/20 11:00 101 26 126/69 (88) 95 07/03/20 10:51 99 28 94 Mechanical Ventilator 80 07/03/20 10:45 102 27 119/58 (78) 95 07/03/20 10:30 101 27 109/71 (84) 95 07/03/20 10:15 99 27 100/52 (68) 96 07/03/20 10:00 98 25 93/54 (67) 95 07/03/20 10:00 98 25 93/54 (67) 95 07/03/20 09:45 96 24 102/55 (71) 96 07/03/20 09:30 96 24 97/52 (67) 98 07/03/20 09:15 97 24 103/54 (70) 97 07/03/20 09:00 100 23 99 07/03/20 09:00 75 105/66 07/03/20 09:00 100 23 128/63 (84) 99 07/03/20 08:45 102 24 145/58 (87) 99 07/03/20 08:30 101 24 146/66 (92) 99 07/03/20 08:15 104 25 146/72 (96) 99 07/03/20 08:00 100 07/03/20 08:00 Mechanical Ventilator Mechanical Ventilator 07/03/20 08:00 98 30 142/69 (93) 92 07/03/20 08:00 97 07/03/20 07:45 99 31 147/71 (96) 92 07/03/20 07:40 99 28 100 07/03/20 07:30 95 33 164/72 (102) 90 07/03/20 07:15 101 28 100/51 (67) 97 07/03/20 07:15 101 28 100/51 (67) 97 07/03/20 07:00 100 27 95/51 (66) 96 07/03/20 07:00 100 27 95/51 (66) 96 07/03/20 06:45 99 26 93/50 (64) 97 07/03/20 06:30 97.8 102 26 106/55 (72) 97 07/03/20 06:30 102 26 106/55 (72) 97 07/03/20 06:15 103 26 125/71 (89) 95 07/03/20 06:15 103 26 125/71 (89) 95 07/03/20 06:00 26 Mechanical Ventilator 100 07/03/20 06:00 26 125/55 Mechanical Ventilator 100 07/03/20 06:00 102 24 155/68 (97) 94 07/03/20 06:00 102 24 155/68 (97) 94 07/03/20 05:45 99 37 164/67 (99) 90 07/03/20 05:45 99 37 164/67 (99) 90 07/03/20 05:30 98.1 101 38 146/77 (100) 92 07/03/20 05:30 101 38 146/77 (100) 92 07/03/20 05:15 99 30 146/78 (100) 92 07/03/20 05:15 99 30 146/78 (100) 92 07/03/20 05:00 96 31 158/81 (106) 92 07/03/20 05:00 26 Mechanical Ventilator 100 07/03/20 05:00 26 96/55 Mechanical Ventilator 100 07/03/20 05:00 96 31 158/81 (106) 92 07/03/20 04:45 99 28 154/89 (110) 95 07/03/20 04:30 104 30 140/78 (98) 97 07/03/20 04:15 100 29 170/70 (103) 97 07/03/20 04:00 99.6 99 28 96/55 (69) 97 07/03/20 04:00 24 Mechanical Ventilator 100 07/03/20 04:00 24 94/54 Mechanical Ventilator 100 07/03/20 04:00 100 07/03/20 04:00 Mechanical Ventilator Mechanical Ventilator 07/03/20 03:45 99 26 107/57 (74) 95 07/03/20 03:30 99 27 91/56 (68) 97 07/03/20 03:15 97 07/03/20 03:15 98 22 105/60 (75) 95 07/03/20 03:03 99 27 100 07/03/20 03:00 26 Mechanical Ventilator 100 07/03/20 03:00 26 114/55 Mechanical Ventilator 100 07/03/20 03:00 98 26 94/54 (67) 98 07/03/20 02:45 99 27 98/54 (69) 98 07/03/20 02:30 99 26 114/55 (74) 98 07/03/20 02:15 100 26 118/59 (78) 96 07/03/20 02:00 99.0 95 26 108/57 (74) 97 07/03/20 02:00 26 Mechanical Ventilator 100 07/03/20 02:00 26 119/59 Mechanical Ventilator 100 07/03/20 01:45 96 27 108/63 (78) 97 07/03/20 01:30 95 26 122/64 (83) 97 07/03/20 01:15 93 25 138/61 (86) 93 07/03/20 01:00 93 26 136/59 (84) 93 07/03/20 01:00 24 Mechanical Ventilator 100 07/03/20 01:00 24 108/63 Mechanical Ventilator 100 07/03/20 00:55 92 24 100 07/03/20 00:45 93 26 136/65 (88) 94 07/03/20 00:30 92 25 128/69 (88) 94 07/03/20 00:15 91 25 131/59 (83) 94 07/03/20 00:03 89 07/03/20 00:00 100 07/03/20 00:00 23 Mechanical Ventilator 100 07/03/20 00:00 23 125/78 Mechanical Ventilator 100 07/03/20 00:00 Mechanical Ventilator Mechanical Ventilator 07/03/20 00:00 90 24 125/78 (94) 95 07/02/20 23:45 93 24 111/56 (74) 100 07/02/20 23:30 91 22 108/56 (73) 99 07/02/20 23:16 87 27 100 07/02/20 23:15 96.8 88 30 122/63 (82) 94 07/02/20 23:00 87 27 129/66 (87) 94 07/02/20 23:00 26 Mechanical Ventilator 100 07/02/20 23:00 26 122/63 Mechanical Ventilator 100 07/02/20 22:45 87 29 127/66 (86) 92 07/02/20 22:30 88 29 124/65 (84) 92 07/02/20 22:15 87 30 129/78 (95) 91 07/02/20 22:00 28 Mechanical Ventilator 100 07/02/20 22:00 31 129/78 Mechanical Ventilator 100 07/02/20 22:00 87 27 123/62 (82) 92 07/02/20 21:45 92 29 110/62 (78) 95 07/02/20 21:39 28 92/55 Mechanical Ventilator 100 07/02/20 21:30 93 25 92/55 (67) 97 07/02/20 21:24 102 28 100 07/02/20 21:15 102 22 112/65 (81) 99 Intake and Output 07/02/20 07/03/20 19:00 07:00 Intake Total 1633 ml 1642 ml Output Total 630 ml 843 ml Balance 1003 ml 799 ml Intake Free Water 1050 ml 300 ml IV Total 143 ml 682 ml Tube Feeding 440 ml 660 ml Output Urine Total 630 ml 715 ml Chest Tube Drainage Total 128 ml Laboratory Tests 07/03/20 03:40: White Blood Count 8.4, Red Blood Count 3.29L, Hemoglobin 10.0L, Hematocrit 31.6L , Mean Corpuscular Volume 96, Mean Corpuscular Hemoglobin 30.5, Mean Corpuscular Hemoglobin Concent 31.6L, Red Cell Distribution Width 15.1H, Platelet Count 90L, Mean Platelet Volume 9.5, Neutrophils (%) (Auto) , Lymphocytes (%) (Auto) , Monocytes (%) (Auto) , Eosinophils (%) (Auto) , Basophils (%) (Auto) , Differential Total Cells Counted 100, Neutrophils % (Manual) 81H, Lymphocytes % (Manual) 11L, Monocytes % (Manual) 3, Eosinophils % (Manual) 5H, Basophils % (Manual) 0, Band Neutrophils 0, Platelet Estimate DecreasedL, Platelet Morphology Normal, Hypochromasia 1+, Anisocytosis 1+, Sodium Level 146H, Potassium Level 3.9, Chloride Level 109H, Carbon Dioxide Level 36H, Anion Gap 1L , Blood Urea Nitrogen 21H, Creatinine 0.4L, Estimat Glomerular Filtration Rate > 60, Glucose Level 128H, Calcium Level 7.6L, Phosphorus Level 2.5, Magnesium Level 2.0, Total Bilirubin 0.6, Direct Bilirubin < 0.1, Aspartate Amino Transf (AST/SGOT) 57H, Alanine Aminotransferase (ALT/SGPT) 48, Alkaline Phosphatase 103, Total Protein 5.4L, Albumin 1.2L Height (Feet): 5 Height (Inches): 2.00 Weight (Pounds): 138 Assessment/Plan Problem List: (1) Elevated d-dimer ICD Codes: R79.89 - Other specified abnormal findings of blood chemistry SNOMED: 481510157 (2) Renal insufficiency ICD Codes: N28.9 - Disorder of kidney and ureter, unspecified SNOMED: 543792695, 955560476 (3) PNA (pneumonia) ICD Codes: J18.9 - Pneumonia, unspecified organism SNOMED: 897213171 (4) Dehydration ICD Codes: E86.0 - Dehydration SNOMED: 36748088 (5) LEONARDO (acute kidney injury) ICD Codes: N17.9 - Acute kidney failure, unspecified SNOMED: 4016135, 20848869 (6) Hypoxia ICD Codes: R09.02 - Hypoxemia; J12.82 - Pneumonia due to coronavirus disease 2019 SNOMED: 097515266 (7) Pneumonia due to COVID-19 virus ICD Codes: U07.1 - COVID-19; J12.82 - Pneumonia due to coronavirus disease 2019 SNOMED: 095614529834426221 (8) DMII (diabetes mellitus, type 2) ICD Codes: E11.9 - Type 2 diabetes mellitus without complications SNOMED: 00603313 Status: progressing, unchanged Assessment/Plan: covid + diarrhea check sugar afebrile reviewed chart and labs intubated niddm azotemia Vidya Clayton MD Jul 03, 2020 21:05
--- NOTE | 2020-07-03 21:30 | NUR ---
RT called to bedside as patient ventilator keeps alarming saying adequate volumes not being given. RT irrigated the ETT with saline bullets multiple times in order to clear tube and allow for proper ventilation and volume administration. Will continue to monitor and call RT if alarms again.
[2020-07-04] VITALS (67 sets, daily range): BP systolic 91–165; BP diastolic 47–93
--- NOTE | 2020-07-04 00:30 | NUR ---
Patient began to drop O2 saturation. B chest tubes assessed. Patient also began having frequent ectopy on the monitor while her tachycardia increased to the 110-115 range. Could not get patient saturation up after suctioning both orally and via ETT. Spoke with processing mgr about findings and presentation/patient changes in condition. ABG ordered as well as Chest XRay and STAT 12 lead EKG to assess the cardiac changes we were seeing on the bedside monitor. EKG shows changes "Sinus Tachycardia, with occassional PVS's,ST & T Wave abnormality, consider anterior ischemia". RT to bedside and amarilis ABG. Results came back concerning that it was a venous gas. Requested RT to re-draw the ABG to ensure it was arterial. Chest Xray was with an ER patient and therefore came to ICU as soon as able for this STAT chest XRay. Results pending. ABG Redraw still shows abnormality but not as severe as the venous. See results for this information. Once Chest XRay is read to ensure that all tubes are appropriately placed, will call MD with all of findings for further orders.
--- NOTE | 2020-07-04 02:15 | Diagnostic Imaging Report ---
EXAM: XR Chest, 1 View CLINICAL HISTORY: PNEUMOTX TECHNIQUE: Frontal view of the chest. COMPARISON: Chest x-ray 07/01/2020 11:36 PM FINDINGS: Lungs: No significant interval change in extensive bilateral airspace and interstitial opacities. Pleural space: Stable small right pneumothorax and trace left pneumothorax. Heart: Unremarkable. No cardiomegaly. Mediastinum: Unremarkable. Bones/joints: Unremarkable. Soft tissues: Interval improvement in diffuse subcutaneous emphysema throughout the chest, right lateral chest wall and neck compared to the previous exam. Tubes, lines and devices: ET tube terminates 2.8 cm above the melyssa. An enteric tube courses below the level of the diaphragm and extends beyond the [id number]. Bilateral chest tubes with slight repositioning of the chest tube along the lateral right lower lung. IMPRESSION: 1. Stable small right pneumothorax and trace left pneumothorax. Bilateral chest tubes remain in place. 2. No significant interval change in extensive bilateral airspace and interstitial opacities. 3. Stable ET tube. An enteric tube again is visualized coursing below the level of the diaphragm and extending beyond the [id number]. 4. Resolution of previously demonstrated subcutaneous emphysema throughout the chest.
--- NOTE | 2020-07-04 02:30 | NUR ---
Called Dr. Sewell to report changes in patient condition. Let the provider know that the patient dropped sats to 70's, became hypotensive, a liter bolus was administered, ABG drawn and resulted read him the results over the phone (see results) patient continues to sat 73% on ventilator at 100% FiO2. Read provider EKG changes on obtained 12 lead EKG, and Chest XRay results. Per Dr. Sewell no new orders as patient is on maximum therapy. Will continue to monitor the patient at this time as there are no new orders from [facility]. Updated software development analyst with Provider communication.
--- NOTE | 2020-07-04 04:00 | NUR ---
Pt remains hypoxic satting in 70's-80's. Continuing to monitor per Dr. Katz. Turned patient to change underpad and glidesheet. Kept supine due to instability.
[2020-07-04 05:16] LABS: HEMATOCRIT 30.9 % (37.0-47.0); HEMOGLOBIN 9.6 G/DL (12.0-16.0); MEAN CORPUSCULAR VOLUME 96 FL (80-99); PLATELET COUNT 90 K/UL (150-450); WHITE BLOOD COUNT 9.6 K/UL (4.8-10.8)
[2020-07-04 05:42] LABS: PHOSPHORUS 2.3 MG/DL (2.5-4.9)
[2020-07-04 05:44] LABS: ALANINE AMINOTRANSFERASE 52 U/L (12-78); ALBUMIN 1.1 G/DL (3.4-5.0); ALBUMIN/GLOBULIN RATIO 0.3 (1.0-2.7); ALKALINE PHOSPHATASE 136 U/L (46-116); ANION GAP 4 mmol/L (5-15); ASPARTATE AMINO TRANSFERASE 55 U/L (15-37); BILIRUBIN,TOTAL 0.5 MG/DL (0.2-1.0); BLOOD UREA NITROGEN 15 mg/dL (7-18); CALCIUM 7.4 MG/DL (8.5-10.1); CARBON DIOXIDE 36 MMOL/L (21-32); CHLORIDE 107 MMOL/L (98-107); CREATININE 0.4 MG/DL (0.55-1.30); POTASSIUM 3.6 MMOL/L (3.5-5.1); SODIUM 146 MMOL/L (136-145)
[2020-07-04] MEDS: NovoLOG Insulin Flexpen SUBQ SCH ×4 (06:00→17:45)
--- NOTE | 2020-07-04 06:00 | NUR ---
No new changes. Continuing to monitor.
[2020-07-04] MEDS: Docusate 100mg/10ml Liq NG SCH ×3 (06:30→20:18)
[2020-07-04] MEDS: Versed 50mg/NS 100ml 100 ML IV PRN ×2 (06:31→20:19)
--- NOTE | 2020-07-04 07:40 | NUR ---
Report given to Chikis who assumed care of patient
[2020-07-04] MEDS: Carvedilol 6.25mg Tab ORAL SCH ×3 (09:00→20:18)
--- NOTE | 2020-07-04 09:17 | Infectious Diseases Prog Note ---
Assessment/Plan Assessment/Plan A; Fever Sepsis COVID19 pneumonia Hypoxic respiratory failure Acute kidney injury, resolving Hyperglycemia, DM type 2 Bilateral pneumothorax Leukocytosis resolved Anemia P; Finished Remdesivir & Dexamethasone course Continue Cefepime Poor prognosis Subjective ROS Limited/Unobtainable: Yes Constitutional: Reports: fever, other - low grade in am Allergies: Coded Allergies: No Known Allergies (Unverified , 06/17/20) Objective Last 24 Hour Vital Signs Date Time Temp Pulse Resp B/P (MAP) Pulse Ox O2 Delivery O2 Flow Rate FiO2 07/04/20 08:00 96.0 112 23 113/62 (79) 92 07/04/20 08:00 110 07/04/20 08:00 100 07/04/20 08:00 Mechanical Ventilator Mechanical Ventilator 07/04/20 07:30 114 23 129/70 (89) 90 07/04/20 07:00 116 22 128/71 (90) 92 07/04/20 06:45 119 22 149/75 (99) 82 07/04/20 06:31 27 Mechanical Ventilator 100 07/04/20 06:30 116 25 151/82 (105) 79 07/04/20 06:15 119 26 150/71 (97) 78 07/04/20 06:00 96.7 118 27 160/79 (106) 76 07/04/20 06:00 30 102/59 Mechanical Ventilator 100 07/04/20 05:45 118 26 145/78 (100) 80 07/04/20 05:30 117 26 165/70 (101) 83 07/04/20 05:15 120 28 131/74 (93) 89 07/04/20 05:00 30 115/61 Mechanical Ventilator 100 07/04/20 05:00 123 21 117/64 (81) 93 07/04/20 04:45 123 24 127/62 (83) 93 07/04/20 04:30 124 22 129/74 (92) 85 07/04/20 04:15 119 26 104/53 (70) 77 07/04/20 04:00 100.0 121 26 108/52 (70) 78 07/04/20 04:00 Mechanical Ventilator Mechanical Ventilator 07/04/20 04:00 30 110/62 Mechanical Ventilator 100 07/04/20 04:00 30 Mechanical Ventilator 100 07/04/20 04:00 100 07/04/20 03:51 115 26 100 07/04/20 03:45 119 26 95/57 (70) 75 07/04/20 03:30 120 26 94/62 (73) 72 07/04/20 03:15 118 26 99/52 (68) 71 07/04/20 03:00 116 26 99/57 (71) 72 07/04/20 03:00 29 114/62 Mechanical Ventilator 100 07/04/20 03:00 29 Mechanical Ventilator 100 07/04/20 02:45 115 27 109/55 (73) 73 07/04/20 02:30 112 26 128/65 (86) 73 07/04/20 02:15 111 26 109/68 (82) 78 07/04/20 02:00 110 24 117/61 (79) 85 07/04/20 02:00 24 117/61 Mechanical Ventilator 100 07/04/20 02:00 24 Mechanical Ventilator 100 07/04/20 01:45 111 27 105/47 (66) 93 07/04/20 01:44 112 07/04/20 01:30 113 26 97/55 (69) 91 07/04/20 01:15 115 25 94/59 (71) 81 07/04/20 01:00 116 26 96/49 (65) 88 07/04/20 01:00 28 96/49 Mechanical Ventilator 100 07/04/20 01:00 28 Mechanical Ventilator 100 07/04/20 00:45 112 19 91/53 (66) 85 07/04/20 00:30 111 17 101/51 (68) 81 07/04/20 00:15 109 28 123/63 (83) 90 07/04/20 00:00 Mechanical Ventilator Mechanical Ventilator 07/04/20 00:00 98.0 108 31 126/61 (82) 92 07/04/20 00:00 28 126/61 Mechanical Ventilator 100 07/04/20 00:00 28 Mechanical Ventilator 100 07/03/20 23:45 108 32 131/64 (86) 90 07/03/20 23:30 109 21 127/62 (83) 94 07/03/20 23:18 107 18 100 07/03/20 23:15 108 19 138/61 (86) 95 07/03/20 23:00 107 18 131/67 (88) 94 07/03/20 23:00 30 131/67 Mechanical Ventilator 100 07/03/20 23:00 31 Mechanical Ventilator 100 07/03/20 22:45 107 22 125/71 (89) 93 07/03/20 22:30 107 20 128/70 (89) 94 07/03/20 22:15 106 18 115/63 (80) 95 07/03/20 22:00 95.3 105 18 123/59 (80) 95 07/03/20 22:00 18 148/80 Mechanical Ventilator 100 07/03/20 22:00 18 Mechanical Ventilator 100 07/03/20 21:45 106 16 107/59 (75) 96 07/03/20 21:30 105 16 119/58 (78) 94 07/03/20 21:15 105 17 115/60 (78) 92 07/03/20 21:00 112 25 148/80 (102) 95 07/03/20 21:00 16 148/80 Mechanical Ventilator 100 07/03/20 21:00 16 Mechanical Ventilator 100 07/03/20 21:00 105 123/59 07/03/20 20:45 101 30 150/86 (107) 93 07/03/20 20:30 100 31 158/70 (99) 92 07/03/20 20:30 31 158/79 Mechanical Ventilator 100 07/03/20 20:15 95 31 157/83 (107) 90 07/03/20 20:00 100 07/03/20 20:00 95 29 158/79 (105) 92 07/03/20 20:00 30 158/79 Mechanical Ventilator 100 07/03/20 20:00 30 Mechanical Ventilator 100 07/03/20 20:00 Mechanical Ventilator Mechanical Ventilator 07/03/20 19:45 92 31 168/75 (106) 93 07/03/20 19:33 98 07/03/20 19:30 96 31 169/98 (121) 94 07/03/20 19:15 98 34 166/74 (104) 94 07/03/20 19:08 104 25 100 07/03/20 19:00 32 169/98 Mechanical Ventilator 100 07/03/20 19:00 31 Mechanical Ventilator 100 07/03/20 19:00 31 169/69 Mechanical Ventilator 100 07/03/20 19:00 97.3 115 25 162/70 (100) 91 07/03/20 18:00 108 30 180/78 (112) 85 07/03/20 17:00 104 33 161/81 (107) 84 07/03/20 16:15 113 31 120/59 (79) 95 07/03/20 16:00 97 07/03/20 16:00 110 31 112/52 (72) 95 07/03/20 16:00 113 07/03/20 16:00 Mechanical Ventilator Mechanical Ventilator 07/03/20 16:00 100 07/03/20 15:45 110 30 111/57 (75) 95 07/03/20 15:42 112 30 100 07/03/20 15:30 113 30 120/59 (79) 96 07/03/20 15:30 110 30 108/53 (71) 96 07/03/20 15:15 109 30 114/53 (73) 96 07/03/20 15:00 109 30 96 07/03/20 15:00 109 30 110/61 (77) 96 07/03/20 14:30 106 29 107/61 (76) 97 07/03/20 14:15 105 29 100/54 (69) 98 07/03/20 14:00 105 28 104/57 (73) 99 07/03/20 13:45 106 28 103/55 (71) 97 07/03/20 13:30 104 29 102/57 (72) 98 07/03/20 13:15 106 29 100/51 (67) 98 07/03/20 13:00 103 28 104/54 (71) 96 07/03/20 13:00 98.9 105 27 102/57 (72) 100 07/03/20 12:45 103 27 93/54 (67) 97 07/03/20 12:38 99.1 07/03/20 12:30 105 29 107/52 (70) 96 07/03/20 12:15 103 28 100/58 (72) 95 07/03/20 12:08 26 Mechanical Ventilator 100 07/03/20 12:00 103 28 116/58 (77) 94 07/03/20 12:00 Mechanical Ventilator Mechanical Ventilator 07/03/20 12:00 100 07/03/20 12:00 103 28 116/58 (77) 94 07/03/20 12:00 97 07/03/20 11:45 102 26 119/56 (77) 97 07/03/20 11:30 103 25 143/69 (93) 98 07/03/20 11:30 103 25 143/69 (93) 98 07/03/20 11:25 102 25 100 07/03/20 11:15 102 25 137/60 (85) 96 07/03/20 11:15 102 25 137/60 (85) 96 07/03/20 11:00 101 26 126/69 (88) 95 07/03/20 11:00 101 26 126/69 (88) 95 07/03/20 10:51 99 28 94 Mechanical Ventilator 80 07/03/20 10:45 102 27 119/58 (78) 95 07/03/20 10:30 101 27 109/71 (84) 95 07/03/20 10:15 99 27 100/52 (68) 96 07/03/20 10:00 98 25 93/54 (67) 95 07/03/20 10:00 98 25 93/54 (67) 95 07/03/20 09:45 96 24 102/55 (71) 96 07/03/20 09:30 96 24 97/52 (67) 98 Height (Feet): 5 Height (Inches): 2.00 Weight (Pounds): 138 HEENT: other - orally intubated Respiratory/Chest: other - on ventilator, YOV5=355%, bilateral chest tubes Cardiovascular: tachycardia, other - PICC line Extremities: other - edema Neurologic/Psychiatric: other - sedated Laboratory Tests Test 07/04/20 00:55 07/04/20 01:44 07/04/20 03:40 Arterial Blood pH 7.326 (7.350-7.450) 7.364 (7.350-7.450) Arterial Blood Partial Pressure CO2 78.7 mmHg (35.0-45.0) *H 65.3 mmHg (35.0-45.0) *H Arterial Blood Partial Pressure O2 32.8 mmHg (75.0-100.0) 58.2 mmHg (75.0-100.0) L Arterial Blood HCO3 40.2 mmol/L (22.0-26.0) *H 36.4 mmol/L (22.0-26.0) H Arterial Blood Oxygen Saturation 58.5 % (95-100) *L 86.9 % (95-100) *L Arterial Blood Base Excess 11.5 (-2-2) *H 9.2 (-2-2) *H Amrit Test Positive Positive White Blood Count 9.6 K/UL (4.8-10.8) Red Blood Count 3.20 M/UL (4.20-5.40) L Hemoglobin 9.6 G/DL (12.0-16.0) L Hematocrit 30.9 % (37.0-47.0) L Mean Corpuscular Volume 96 FL (80-99) Mean Corpuscular Hemoglobin 30.1 PG (27.0-31.0) Mean Corpuscular Hemoglobin Concent 31.3 G/DL (32.0-36.0) L Red Cell Distribution Width 15.0 % (11.6-14.8) H Platelet Count 90 K/UL (150-450) L Mean Platelet Volume 8.6 FL (6.5-10.1) Neutrophils (%) (Auto) % (45.0-75.0) Lymphocytes (%) (Auto) % (20.0-45.0) Monocytes (%) (Auto) % (1.0-10.0) Eosinophils (%) (Auto) % (0.0-3.0) Basophils (%) (Auto) % (0.0-2.0) Neutrophils % (Manual) Pending Lymphocytes % (Manual) Pending Platelet Estimate Pending Platelet Morphology Pending Sodium Level 146 MMOL/L (136-145) H Potassium Level 3.6 MMOL/L (3.5-5.1) Chloride Level 107 MMOL/L (98-107) Carbon Dioxide Level 36 MMOL/L (21-32) H Anion Gap 4 mmol/L (5-15) L Blood Urea Nitrogen 15 mg/dL (7-18) Creatinine 0.4 MG/DL (0.55-1.30) L Estimat Glomerular Filtration Rate > 60 mL/min (>60) Glucose Level 149 MG/DL (74-106) H Uric Acid 1.2 MG/DL (2.6-7.2) L Calcium Level 7.4 MG/DL (8.5-10.1) L Phosphorus Level 2.3 MG/DL (2.5-4.9) L Magnesium Level 2.0 MG/DL (1.8-2.4) Total Bilirubin 0.5 MG/DL (0.2-1.0) Aspartate Amino Transf (AST/SGOT) 55 U/L (15-37) H Alanine Aminotransferase (ALT/SGPT) 52 U/L (12-78) Alkaline Phosphatase 136 U/L (46-116) H C-Reactive Protein, Quantitative 11.2 mg/dL (0.00-0.90) H Pro-B-Type Natriuretic Peptide 271 pg/mL (0-125) H Total Protein 5.4 G/DL (6.4-8.2) L Albumin 1.1 G/DL (3.4-5.0) L Globulin 4.3 g/dL Albumin/Globulin Ratio 0.3 (1.0-2.7) L Vitamin D 25-Hydroxy Pending 25-Hydroxy Vitamin D2 Pending 25-Hydroxy Vitamin D3 Pending Current Medications Medications (Trade) Dose Ordered Sig/Maya Route PRN Reason Start Time Stop Time Status Last Admin Dose Admin Acetaminophen (Tylenol) 500 mg Q4H PRN ORAL Mild Pain (Pain Scale 1-3) 06/18/20 00:15 07/18/20 00:14 06/24/20 17:51 Acetaminophen (Tylenol) 500 mg Q4H PRN ORAL Temp >100.5 06/18/20 00:15 07/18/20 00:14 06/29/20 20:01 Carvedilol (Coreg) 6.25 mg EVERY 12 HOURS ORAL 06/22/20 21:00 07/22/20 20:59 07/02/20 20:39 Cefepime HCl 1 gm/ Dextrose 55 ml @ 110 mls/hr DAILY IVPB 07/04/20 09:00 07/08/20 12:00 Chlorhexidine Gluconate (Sissy-Hex 2%) 1 applic DAILY@2000 TOPIC 06/28/20 20:00 09/26/20 19:59 07/03/20 20:46 Dextrose (Dextrose 50%) 25 ml Q30M PRN IV Hypoglycemia 06/18/20 14:15 09/16/20 14:14 Dextrose (Dextrose 50%) 50 ml Q30M PRN IV Hypoglycemia 06/18/20 14:15 09/16/20 14:14 Docusate Sodium (Colace) 100 mg EVERY 8 HOURS NG 07/02/20 14:00 07/28/20 12:59 07/04/20 06:30 Fentanyl Citrate 250 ml @ 1 mls/hr Q24H IV 07/03/20 20:30 07/05/20 20:29 07/03/20 20:30 Furosemide (Lasix) 40 mg DAILY IV 06/28/20 17:45 07/28/20 16:59 07/03/20 09:00 Haloperidol Lactate (Haldol) 10 mg Q6H PRN IM Agitation 06/23/20 11:30 08/07/20 11:29 06/23/20 11:34 Insulin Aspart (NovoLOG) while NPO Q6HR SUBQ 06/18/20 18:00 09/16/20 17:59 07/03/20 18:00 Midazolam HCl 100 ml @ 0 mls/hr Q24H PRN IV To Patient Comfort 07/04/20 03:00 07/06/20 02:59 07/04/20 06:31 Pantoprazole (Protonix) 40 mg EVERY 12 HOURS IVP 06/18/20 21:00 07/18/20 20:59 07/03/20 20:46 Sodium Chloride 1,000 ml @ 50 mls/hr Q20H IV 06/26/20 08:00 07/26/20 07:59 07/03/20 19:10 Vitamin D (Vitamin D) 2,000 unit DAILY GT 06/29/20 10:30 07/29/20 10:29 07/03/20 09:00 Raji Turpin MD Jul 04, 2020 09:17
[2020-07-04] MEDS: Pantoprazole Inj IVP SCH ×2 (09:32→20:18)
[2020-07-04] MEDS: Vitamin D 1000 units Tab GT SCH (09:32)
[2020-07-04] MEDS: Cefepime HCl 1 GM in D5W 55 ML IVPB SCH (09:34)
[2020-07-04] MEDS: fentaNYL 2500mcg/NS 250ml 250 ML IV SCH (09:36)
[2020-07-04] MEDS ORDERED: NS 275ml ONE ×2 (10:00→10:01)
[2020-07-04] MEDS ORDERED: Tubing IV Secondary IV ONE (10:00)
--- NOTE | 2020-07-04 10:08 | Pulmonology Progress Note ---
Subjective ROS Limited/Unobtainable: Yes Interval Events: Remains intubated; bilateral chest tubes in place Constitutional: Reports: fever, other - low grade in am HEENT: Repors: no symptoms Respiratory: Reports: shortness of breath Cardiovascular: Reports: no symptoms Gastrointestinal/Abdominal: Reports: no symptoms Allergies: Coded Allergies: No Known Allergies (Unverified , 06/17/20) All Systems: reviewed and negative except above Objective Last 24 Hour Vital Signs Date Time Temp Pulse Resp B/P (MAP) Pulse Ox O2 Delivery O2 Flow Rate FiO2 07/04/20 09:36 21 101/58 100 07/04/20 09:00 19 Mechanical Ventilator 100 07/04/20 09:00 19 113/58 Mechanical Ventilator 100 07/04/20 09:00 104 101/58 07/04/20 08:00 96.0 112 23 113/62 (79) 92 07/04/20 08:00 110 07/04/20 08:00 24 Mechanical Ventilator 100 07/04/20 08:00 24 113/62 Mechanical Ventilator 100 07/04/20 08:00 100 07/04/20 08:00 Mechanical Ventilator Mechanical Ventilator 07/04/20 07:30 114 23 129/70 (89) 90 07/04/20 07:00 116 22 128/71 (90) 92 07/04/20 07:00 22 Mechanical Ventilator 100 07/04/20 07:00 22 128/71 Mechanical Ventilator 100 07/04/20 06:45 119 22 149/75 (99) 82 07/04/20 06:31 27 Mechanical Ventilator 100 07/04/20 06:30 116 25 151/82 (105) 79 07/04/20 06:15 119 26 150/71 (97) 78 07/04/20 06:00 96.7 118 27 160/79 (106) 76 07/04/20 06:00 30 102/59 Mechanical Ventilator 100 07/04/20 05:45 118 26 145/78 (100) 80 07/04/20 05:30 117 26 165/70 (101) 83 07/04/20 05:15 120 28 131/74 (93) 89 07/04/20 05:00 30 115/61 Mechanical Ventilator 100 07/04/20 05:00 123 21 117/64 (81) 93 07/04/20 04:45 123 24 127/62 (83) 93 07/04/20 04:30 124 22 129/74 (92) 85 07/04/20 04:15 119 26 104/53 (70) 77 07/04/20 04:00 100.0 121 26 108/52 (70) 78 07/04/20 04:00 Mechanical Ventilator Mechanical Ventilator 07/04/20 04:00 30 110/62 Mechanical Ventilator 100 07/04/20 04:00 30 Mechanical Ventilator 100 07/04/20 04:00 100 07/04/20 03:51 115 26 100 07/04/20 03:45 119 26 95/57 (70) 75 07/04/20 03:30 120 26 94/62 (73) 72 07/04/20 03:15 118 26 99/52 (68) 71 07/04/20 03:00 116 26 99/57 (71) 72 07/04/20 03:00 29 114/62 Mechanical Ventilator 100 07/04/20 03:00 29 Mechanical Ventilator 100 07/04/20 02:45 115 27 109/55 (73) 73 07/04/20 02:30 112 26 128/65 (86) 73 07/04/20 02:15 111 26 109/68 (82) 78 07/04/20 02:00 110 24 117/61 (79) 85 07/04/20 02:00 24 117/61 Mechanical Ventilator 100 07/04/20 02:00 24 Mechanical Ventilator 100 07/04/20 01:45 111 27 105/47 (66) 93 07/04/20 01:44 112 07/04/20 01:30 113 26 97/55 (69) 91 07/04/20 01:15 115 25 94/59 (71) 81 07/04/20 01:00 116 26 96/49 (65) 88 07/04/20 01:00 28 96/49 Mechanical Ventilator 100 07/04/20 01:00 28 Mechanical Ventilator 100 07/04/20 00:45 112 19 91/53 (66) 85 07/04/20 00:30 111 17 101/51 (68) 81 07/04/20 00:15 109 28 123/63 (83) 90 07/04/20 00:00 Mechanical Ventilator Mechanical Ventilator 07/04/20 00:00 98.0 108 31 126/61 (82) 92 07/04/20 00:00 28 126/61 Mechanical Ventilator 100 07/04/20 00:00 28 Mechanical Ventilator 100 07/03/20 23:45 108 32 131/64 (86) 90 07/03/20 23:30 109 21 127/62 (83) 94 07/03/20 23:18 107 18 100 07/03/20 23:15 108 19 138/61 (86) 95 07/03/20 23:00 107 18 131/67 (88) 94 07/03/20 23:00 30 131/67 Mechanical Ventilator 100 07/03/20 23:00 31 Mechanical Ventilator 100 07/03/20 22:45 107 22 125/71 (89) 93 07/03/20 22:30 107 20 128/70 (89) 94 07/03/20 22:15 106 18 115/63 (80) 95 07/03/20 22:00 95.3 105 18 123/59 (80) 95 07/03/20 22:00 18 148/80 Mechanical Ventilator 100 07/03/20 22:00 18 Mechanical Ventilator 100 07/03/20 21:45 106 16 107/59 (75) 96 07/03/20 21:30 105 16 119/58 (78) 94 07/03/20 21:15 105 17 115/60 (78) 92 07/03/20 21:00 112 25 148/80 (102) 95 07/03/20 21:00 16 148/80 Mechanical Ventilator 100 07/03/20 21:00 16 Mechanical Ventilator 100 07/03/20 21:00 105 123/59 07/03/20 20:45 101 30 150/86 (107) 93 07/03/20 20:30 100 31 158/70 (99) 92 07/03/20 20:30 31 158/79 Mechanical Ventilator 100 07/03/20 20:15 95 31 157/83 (107) 90 07/03/20 20:00 100 07/03/20 20:00 95 29 158/79 (105) 92 07/03/20 20:00 30 158/79 Mechanical Ventilator 100 07/03/20 20:00 30 Mechanical Ventilator 100 07/03/20 20:00 Mechanical Ventilator Mechanical Ventilator 07/03/20 19:45 92 31 168/75 (106) 93 07/03/20 19:33 98 07/03/20 19:30 96 31 169/98 (121) 94 2/12/21 19:15 98 34 166/74 (104) 94 07/03/20 19:08 104 25 100 07/03/20 19:00 32 169/98 Mechanical Ventilator 100 07/03/20 19:00 31 Mechanical Ventilator 100 07/03/20 19:00 31 169/69 Mechanical Ventilator 100 07/03/20 19:00 97.3 115 25 162/70 (100) 91 07/03/20 18:00 108 30 180/78 (112) 85 07/03/20 17:00 104 33 161/81 (107) 84 07/03/20 16:15 113 31 120/59 (79) 95 07/03/20 16:00 97 07/03/20 16:00 110 31 112/52 (72) 95 07/03/20 16:00 113 07/03/20 16:00 Mechanical Ventilator Mechanical Ventilator 07/03/20 16:00 100 07/03/20 15:45 110 30 111/57 (75) 95 07/03/20 15:42 112 30 100 07/03/20 15:30 113 30 120/59 (79) 96 07/03/20 15:30 110 30 108/53 (71) 96 07/03/20 15:15 109 30 114/53 (73) 96 07/03/20 15:00 109 30 96 07/03/20 15:00 109 30 110/61 (77) 96 07/03/20 14:30 106 29 107/61 (76) 97 07/03/20 14:15 105 29 100/54 (69) 98 07/03/20 14:00 105 28 104/57 (73) 99 07/03/20 13:45 106 28 103/55 (71) 97 07/03/20 13:30 104 29 102/57 (72) 98 07/03/20 13:15 106 29 100/51 (67) 98 07/03/20 13:00 103 28 104/54 (71) 96 07/03/20 13:00 98.9 105 27 102/57 (72) 100 07/03/20 12:45 103 27 93/54 (67) 97 07/03/20 12:38 99.1 07/03/20 12:30 105 29 107/52 (70) 96 07/03/20 12:15 103 28 100/58 (72) 95 07/03/20 12:08 26 Mechanical Ventilator 100 07/03/20 12:00 103 28 116/58 (77) 94 07/03/20 12:00 Mechanical Ventilator Mechanical Ventilator 07/03/20 12:00 100 07/03/20 12:00 103 28 116/58 (77) 94 07/03/20 12:00 97 07/03/20 11:45 102 26 119/56 (77) 97 07/03/20 11:30 103 25 143/69 (93) 98 07/03/20 11:30 103 25 143/69 (93) 98 07/03/20 11:25 102 25 100 07/03/20 11:15 102 25 137/60 (85) 96 07/03/20 11:15 102 25 137/60 (85) 96 07/03/20 11:00 101 26 126/69 (88) 95 07/03/20 11:00 101 26 126/69 (88) 95 07/03/20 10:51 99 28 94 Mechanical Ventilator 80 07/03/20 10:45 102 27 119/58 (78) 95 07/03/20 10:30 101 27 109/71 (84) 95 07/03/20 10:15 99 27 100/52 (68) 96 Intake and Output 07/03/20 07/04/20 19:00 07:00 Intake Total 1084 ml 1648.0 ml Output Total 300 ml 635 ml Balance 784 ml 1013.0 ml Intake Free Water 300 ml IV Total 479 ml 743.0 ml Tube Feeding 605 ml 605 ml Output Urine Total 300 ml 515 ml Chest Tube Drainage Total 120 ml General Appearance: no acute distress HEENT: atraumatic Respiratory: crackles/rales Cardiovascular: normal rate Abdomen: soft, non tender Laboratory Tests 07/04/20 00:55: Arterial Blood pH 7.326L, Arterial Blood Partial Pressure CO2 78.7*H, Arterial Blood Partial Pressure O2 32.8*L, Arterial Blood HCO3 40.2*H, Arterial Blood Oxygen Saturation 58.5*L, Arterial Blood Base Excess 11.5*H, Amrit Test Positive 07/04/20 01:44: Arterial Blood pH 7.364, Arterial Blood Partial Pressure CO2 65.3*H, Arterial Blood Partial Pressure O2 58.2L, Arterial Blood HCO3 36.4H, Arterial Blood Oxygen Saturation 86.9*L, Arterial Blood Base Excess 9.2*H, Amrit Test Positive 07/04/20 03:40: White Blood Count 9.6, Red Blood Count 3.20L, Hemoglobin 9.6L, Hematocrit 30.9L, Mean Corpuscular Volume 96, Mean Corpuscular Hemoglobin 30.1, Mean Corpuscular Hemoglobin Concent 31.3L, Red Cell Distribution Width 15.0H, Platelet Count 90L, Mean Platelet Volume 8.6, Neutrophils (%) (Auto) , Lymphocytes (%) (Auto) , Monocytes (%) (Auto) , Eosinophils (%) (Auto) , Basophils (%) (Auto) , Differential Total Cells Counted 100, Neutrophils % (Manual) 82H, Lymphocytes % (Manual) 10L, Monocytes % (Manual) 3, Eosinophils % (Manual) 4H, Basophils % (Manual) 0, Band Neutrophils 1, Platelet Estimate DecreasedL, Platelet Morphology Normal, Hypochromasia 1+, Anisocytosis 1+, Sodium Level 146H, Potassium Level 3.6, Chloride Level 107, Carbon Dioxide Level 36H, Anion Gap 4L, Blood Urea Nitrogen 15, Creatinine 0.4L, Estimat Glomerular Filtration Rate > 60, Glucose Level 149H, Uric Acid 1.2L, Calcium Level 7.4L, Phosphorus Level 2.3L, Magnesium Level 2.0, Total Bilirubin 0.5, Aspartate Amino Transf (AST/SGOT) 55H, Alanine Aminotransferase (ALT/SGPT) 52, Alkaline Phosphatase 136H, C-Reactive Protein, Quantitative 11.2H, Pro-B-Type Natriuretic Peptide 271H, Total Protein 5.4L, Albumin 1.1L, Globulin 4.3, Albumin/Globulin Ratio 0.3L, Vitamin D 25-Hydroxy [Pending], 25-Hydroxy Vitamin D2 [Pending], 25- Hydroxy Vitamin D3 [Pending] Current Medications Medications (Trade) Dose Ordered Sig/Maya Route PRN Reason Start Time Stop Time Status Last Admin Dose Admin Acetaminophen (Tylenol) 500 mg Q4H PRN ORAL Mild Pain (Pain Scale 1-3) 06/18/20 00:15 07/18/20 00:14 06/24/20 17:51 Acetaminophen (Tylenol) 500 mg Q4H PRN ORAL Temp >100.5 06/18/20 00:15 07/18/20 00:14 06/29/20 20:01 Carvedilol (Coreg) 6.25 mg EVERY 12 HOURS ORAL 06/22/20 21:00 07/22/20 20:59 07/02/20 20:39 Cefepime HCl 1 gm/ Dextrose 55 ml @ 110 mls/hr DAILY IVPB 07/04/20 09:00 07/08/20 12:00 07/04/20 09:34 Chlorhexidine Gluconate (Sissy-Hex 2%) 1 applic DAILY@2000 TOPIC 06/28/20 20:00 09/26/20 19:59 07/03/20 20:46 Dextrose (Dextrose 50%) 25 ml Q30M PRN IV Hypoglycemia 06/18/20 14:15 09/16/20 14:14 Dextrose (Dextrose 50%) 50 ml Q30M PRN IV Hypoglycemia 06/18/20 14:15 09/16/20 14:14 Docusate Sodium (Colace) 100 mg EVERY 8 HOURS NG 07/02/20 14:00 07/28/20 12:59 07/04/20 06:30 Fentanyl Citrate 250 ml @ 1 mls/hr Q24H IV 07/03/20 20:30 07/05/20 20:29 07/04/20 09:36 Furosemide (Lasix) 40 mg DAILY IV 06/28/20 17:45 07/28/20 16:59 07/04/20 09:33 Haloperidol Lactate (Haldol) 10 mg Q6H PRN IM Agitation 06/23/20 11:30 08/07/20 11:29 06/23/20 11:34 Insulin Aspart (NovoLOG) while NPO Q6HR SUBQ 06/18/20 18:00 09/16/20 17:59 07/03/20 18:00 Midazolam HCl 100 ml @ 0 mls/hr Q24H PRN IV To Patient Comfort 07/04/20 03:00 07/06/20 02:59 07/04/20 06:31 Pantoprazole (Protonix) 40 mg EVERY 12 HOURS IVP 06/18/20 21:00 07/18/20 20:59 07/04/20 09:32 Sodium Chloride 1,000 ml @ 50 mls/hr Q20H IV 06/26/20 08:00 07/26/20 07:59 07/03/20 19:10 Vitamin D (Vitamin D) 2,000 unit DAILY GT 06/29/20 10:30 07/29/20 10:29 07/04/20 09:32 Assessment/Plan Assessment/Plan 1. COVID-19 pneumonia -Intubated, on 80-90% FiO2. PEEP 5-10. -SaO2 96% -On Decadron, s/p remdesivir 2. Leukocytosis -Resolved 3. Elevated D-dimer -On Lovenox 40 subcu QD for DVT prophylaxis 4. Renal insufficiency -Improved 5. Anemia of chronic disease -Hematology oncology following 6. Sepsis -Status post antibiotics, fluid resuscitation 7. Pneumothorax 06/22/20 - b/l subcutaneous emphysema, pneumomediastinum, probable small left pneumothorax & ? trace right pneumothorax. -Pleur-evacs in place - placed CT by surgery (bilateral) - Will attempt wean when FiO2 decreases - CXR shows R PTX; will advise CT surgery to adjust R CT Charlie Sewell MD Jul 04, 2020 10:08
[2020-07-04] MEDS ORDERED: Potassium Phosphate 20 MM in NS 275 ML IV ONE (12:00)
--- NOTE | 2020-07-04 12:24 | Cardiology Report ---
APPROVED REPORT EKG Measurement Heart [id number] <Conclusion> Sinus tachycardia with occasional premature ventricular complexes ST & T wave abnormality, consider anterior ischemia Abnormal ECG
--- NOTE | 2020-07-04 12:33 | Nephrology Progress Note ---
Assessment/Plan Problem List: (1) LEONARDO (acute kidney injury) (2) Dehydration (3) DMII (diabetes mellitus, type 2) (4) Pneumonia due to COVID-19 virus (5) Hypoxia Assessment 70-year-old female presents with COVID-19 pneumonia and hypoxia On admission has BUN of 77 and creatinine of 1.6. Renal failure most likely prerenal and dehydration with possible underlying chronic kidney disease Patient has elevated inflammatory markers Hypoalbuminemia Electrolyte abnormalities Hyperglycemia Plan July 04: Status quo. On ventilator. Full code. Bilateral chest tube. Renal parameters stable. July 03: Patient remains full code. Intubated on ventilator. Has chest tube. Labs reviewed. Renal parameters stable. Continue per consultants. July 02: Remains intubated. Has a bilateral chest tube. He is full code. Labs reviewed. Abnormal electrolyte addressed. Continue per consultants. July 01: Remains intubated. Continues to have bilateral chest tube. Full code. Labs reviewed. Renal parameters stable. Low phosphorus addressed. Discussed with NORMAN Lyon. June 30: Full code. Intubated. Bilateral chest tube. As reviewed. Abnormal electrolytes addressed. June 29: Full code. Intubated. Bilateral chest tube. Unstable pulmonary status. ABG ordered. Electrolyte imbalance addressed. Discussed with NORMAN Montalvo. June 28: Labs reviewed. Abnormal electrolytes addressed. Patient remains full code. Continue per consultants. June 27: No chemistry panel done today. Remains full code. Medication list reviewed. Continue per consultants. Will monitor electrolytes and renal panel in a.m. June 26: Status quo. Remains full code. Labs reviewed. Main IV changed to normal saline 50 cc an hour. Continue per consultants and pulmonary. June 25: Remains intubated. Has bilateral chest tube. Full code. Labs reviewed. Abnormal electrolytes addressed. Albumin bolus given. Continue to monitor renal parameters. Poor prognosis. June 24: Patient in ICU. Intubated. Has bilateral chest tube. Labs reviewed. Renal parameters stable. Low phosphorus addressed. Continue per consultants. Full code. Poor prognosis. June 23: Patient in ICU. Intubated. Due for insertion of a chest tube. Has pneumothorax. Renal parameters are stable. Serum sodium rising. Will adjust IV fluid. Continue per consultants. Patient full code. Prognosis poor. June 22: Labs reviewed. Remains on BiPAP which is not changed to high flow oxygen due to pneumothorax found on chest x-ray. Serum sodium 155. Continues on D5W. Electrolytes within normal limits. Check 2D echocardiogram. Coreg for blood pressure and heart rate. June 21: Status quo. On BiPAP. Full code. Serum sodium 153. Continue D5W. Continue to monitor electrolytes. Continue per consultants. June 20: Patient full code. On BiPAP. Labs reviewed. Serum sodium rising. Will increase D5W to 75 cc an hour. Continue to monitor electrolytes. June 19: IV changed to D5W. Monitor blood sugar. Monitor electrolytes. Medication list reviewed. Patient is being treated for COVID-19 pneumonia. Patient is full code. Previously Pulmonary support IV antibiotics Slow hydration Avoid nephrotoxic Monitor renal parameters Per orders Subjective ROS Limited/Unobtainable: Yes Objective Objective Last 24 Hour Vital Signs Date Time Temp Pulse Resp B/P (MAP) Pulse Ox O2 Delivery O2 Flow Rate FiO2 07/04/20 10:06 105 148/69 07/04/20 10:00 110 24 117/58 (77) 86 07/04/20 09:36 21 101/58 100 07/04/20 09:30 104 22 148/69 (95) 84 07/04/20 09:00 19 Mechanical Ventilator 100 07/04/20 09:00 19 113/58 Mechanical Ventilator 100 07/04/20 09:00 108 23 113/58 (76) 84 07/04/20 08:30 116 25 127/76 (93) 90 07/04/20 08:00 96.0 112 23 113/62 (79) 92 07/04/20 08:00 110 07/04/20 08:00 24 Mechanical Ventilator 100 07/04/20 08:00 24 113/62 Mechanical Ventilator 100 07/04/20 08:00 100 07/04/20 08:00 Mechanical Ventilator Mechanical Ventilator 07/04/20 07:38 109 20 100 07/04/20 07:30 114 23 129/70 (89) 90 07/04/20 07:00 116 22 128/71 (90) 92 07/04/20 07:00 22 Mechanical Ventilator 100 07/04/20 07:00 22 128/71 Mechanical Ventilator 100 07/04/20 06:45 119 22 149/75 (99) 82 07/04/20 06:31 27 Mechanical Ventilator 100 07/04/20 06:30 116 25 151/82 (105) 79 07/04/20 06:15 119 26 150/71 (97) 78 07/04/20 06:00 96.7 118 27 160/79 (106) 76 07/04/20 06:00 30 102/59 Mechanical Ventilator 100 07/04/20 05:45 118 26 145/78 (100) 80 07/04/20 05:30 117 26 165/70 (101) 83 07/04/20 05:15 120 28 131/74 (93) 89 07/04/20 05:00 30 115/61 Mechanical Ventilator 100 07/04/20 05:00 123 21 117/64 (81) 93 07/04/20 04:45 123 24 127/62 (83) 93 07/04/20 04:30 124 22 129/74 (92) 85 07/04/20 04:15 119 26 104/53 (70) 77 07/04/20 04:00 100.0 121 26 108/52 (70) 78 07/04/20 04:00 Mechanical Ventilator Mechanical Ventilator 07/04/20 04:00 30 110/62 Mechanical Ventilator 100 07/04/20 04:00 30 Mechanical Ventilator 100 07/04/20 04:00 100 07/04/20 03:51 115 26 100 07/04/20 03:45 119 26 95/57 (70) 75 07/04/20 03:30 120 26 94/62 (73) 72 07/04/20 03:15 118 26 99/52 (68) 71 07/04/20 03:00 116 26 99/57 (71) 72 07/04/20 03:00 29 114/62 Mechanical Ventilator 100 07/04/20 03:00 29 Mechanical Ventilator 100 07/04/20 02:45 115 27 109/55 (73) 73 07/04/20 02:30 112 26 128/65 (86) 73 07/04/20 02:15 111 26 109/68 (82) 78 07/04/20 02:00 110 24 117/61 (79) 85 07/04/20 02:00 24 117/61 Mechanical Ventilator 100 07/04/20 02:00 24 Mechanical Ventilator 100 07/04/20 01:45 111 27 105/47 (66) 93 07/04/20 01:44 112 07/04/20 01:30 113 26 97/55 (69) 91 07/04/20 01:15 115 25 94/59 (71) 81 07/04/20 01:00 116 26 96/49 (65) 88 07/04/20 01:00 28 96/49 Mechanical Ventilator 100 07/04/20 01:00 28 Mechanical Ventilator 100 07/04/20 00:45 112 19 91/53 (66) 85 07/04/20 00:30 111 17 101/51 (68) 81 07/04/20 00:15 109 28 123/63 (83) 90 07/04/20 00:00 Mechanical Ventilator Mechanical Ventilator 07/04/20 00:00 98.0 108 31 126/61 (82) 92 07/04/20 00:00 28 126/61 Mechanical Ventilator 100 07/04/20 00:00 28 Mechanical Ventilator 100 07/03/20 23:45 108 32 131/64 (86) 90 07/03/20 23:30 109 21 127/62 (83) 94 07/03/20 23:18 107 18 100 07/03/20 23:15 108 19 138/61 (86) 95 07/03/20 23:00 107 18 131/67 (88) 94 07/03/20 23:00 30 131/67 Mechanical Ventilator 100 07/03/20 23:00 31 Mechanical Ventilator 100 07/03/20 22:45 107 22 125/71 (89) 93 07/03/20 22:30 107 20 128/70 (89) 94 07/03/20 22:15 106 18 115/63 (80) 95 07/03/20 22:00 95.3 105 18 123/59 (80) 95 07/03/20 22:00 18 148/80 Mechanical Ventilator 100 07/03/20 22:00 18 Mechanical Ventilator 100 07/03/20 21:45 106 16 107/59 (75) 96 07/03/20 21:30 105 16 119/58 (78) 94 07/03/20 21:15 105 17 115/60 (78) 92 07/03/20 21:00 112 25 148/80 (102) 95 07/03/20 21:00 16 148/80 Mechanical Ventilator 100 07/03/20 21:00 16 Mechanical Ventilator 100 07/03/20 21:00 105 123/59 07/03/20 20:45 101 30 150/86 (107) 93 07/03/20 20:30 100 31 158/70 (99) 92 07/03/20 20:30 31 158/79 Mechanical Ventilator 100 07/03/20 20:15 95 31 157/83 (107) 90 07/03/20 20:00 100 07/03/20 20:00 95 29 158/79 (105) 92 07/03/20 20:00 30 158/79 Mechanical Ventilator 100 07/03/20 20:00 30 Mechanical Ventilator 100 07/03/20 20:00 Mechanical Ventilator Mechanical Ventilator 07/03/20 19:45 92 31 168/75 (106) 93 07/03/20 19:33 98 07/03/20 19:30 96 31 169/98 (121) 94 07/03/20 19:15 98 34 166/74 (104) 94 07/03/20 19:08 104 25 100 07/03/20 19:00 32 169/98 Mechanical Ventilator 100 07/03/20 19:00 31 Mechanical Ventilator 100 07/03/20 19:00 31 169/69 Mechanical Ventilator 100 07/03/20 19:00 97.3 115 25 162/70 (100) 91 07/03/20 18:00 108 30 180/78 (112) 85 07/03/20 17:00 104 33 161/81 (107) 84 07/03/20 16:15 113 31 120/59 (79) 95 07/03/20 16:00 97 07/03/20 16:00 110 31 112/52 (72) 95 07/03/20 16:00 113 07/03/20 16:00 Mechanical Ventilator Mechanical Ventilator 07/03/20 16:00 100 07/03/20 15:45 110 30 111/57 (75) 95 07/03/20 15:42 112 30 100 07/03/20 15:30 113 30 120/59 (79) 96 07/03/20 15:30 110 30 108/53 (71) 96 07/03/20 15:15 109 30 114/53 (73) 96 07/03/20 15:00 109 30 96 07/03/20 15:00 109 30 110/61 (77) 96 07/03/20 14:30 106 29 107/61 (76) 97 07/03/20 14:15 105 29 100/54 (69) 98 07/03/20 14:00 105 28 104/57 (73) 99 07/03/20 13:45 106 28 103/55 (71) 97 07/03/20 13:30 104 29 102/57 (72) 98 07/03/20 13:15 106 29 100/51 (67) 98 07/03/20 13:00 103 28 104/54 (71) 96 07/03/20 13:00 98.9 105 27 102/57 (72) 100 07/03/20 12:45 103 27 93/54 (67) 97 07/03/20 12:38 99.1 Intake and Output 07/03/20 07/04/20 19:00 07:00 Intake Total 1084 ml 1648.0 ml Output Total 300 ml 635 ml Balance 784 ml 1013.0 ml Intake Free Water 300 ml IV Total 479 ml 743.0 ml Tube Feeding 605 ml 605 ml Output Urine Total 300 ml 515 ml Chest Tube Drainage Total 120 ml Current Medications Medications (Trade) Dose Ordered Sig/Maya Route PRN Reason Start Time Stop Time Status Last Admin Dose Admin Acetaminophen (Tylenol) 500 mg Q4H PRN ORAL Mild Pain (Pain Scale 1-3) 06/18/20 00:15 07/18/20 00:14 06/24/20 17:51 Acetaminophen (Tylenol) 500 mg Q4H PRN ORAL Temp >100.5 06/18/20 00:15 07/18/20 00:14 06/29/20 20:01 Carvedilol (Coreg) 6.25 mg EVERY 12 HOURS ORAL 06/22/20 21:00 07/22/20 20:59 07/04/20 10:06 Cefepime HCl 1 gm/ Dextrose 55 ml @ 110 mls/hr DAILY IVPB 07/04/20 09:00 07/08/20 12:00 07/04/20 09:34 Chlorhexidine Gluconate (Sissy-Hex 2%) 1 applic DAILY@2000 TOPIC 06/28/20 20:00 09/26/20 19:59 07/03/20 20:46 Dextrose (Dextrose 50%) 25 ml Q30M PRN IV Hypoglycemia 06/18/20 14:15 09/16/20 14:14 Dextrose (Dextrose 50%) 50 ml Q30M PRN IV Hypoglycemia 06/18/20 14:15 09/16/20 14:14 Docusate Sodium (Colace) 100 mg EVERY 8 HOURS NG 07/02/20 14:00 07/28/20 12:59 07/04/20 06:30 Fentanyl Citrate 250 ml @ 1 mls/hr Q24H IV 07/03/20 20:30 07/05/20 20:29 07/04/20 09:36 Furosemide (Lasix) 40 mg DAILY IV 06/28/20 17:45 07/28/20 16:59 07/04/20 09:33 Haloperidol Lactate (Haldol) 10 mg Q6H PRN IM Agitation 06/23/20 11:30 08/07/20 11:29 06/23/20 11:34 Insulin Aspart (NovoLOG) while NPO Q6HR SUBQ 06/18/20 18:00 09/16/20 17:59 07/03/20 18:00 Midazolam HCl 100 ml @ 0 mls/hr Q24H PRN IV To Patient Comfort 07/04/20 03:00 07/06/20 02:59 07/04/20 06:31 Pantoprazole (Protonix) 40 mg EVERY 12 HOURS IVP 06/18/20 21:00 07/18/20 20:59 07/04/20 09:32 Potassium Phosphate 20 mm/ Sodium Chloride 281.6667 ml @ 46.944 m... ONCE ONCE IV 07/04/20 12:00 07/04/20 17:59 Sodium Chloride 1,000 ml @ 50 mls/hr Q20H IV 06/26/20 08:00 07/26/20 07:59 07/03/20 19:10 Vitamin D (Vitamin D) 2,000 unit DAILY GT 06/29/20 10:30 07/29/20 10:29 07/04/20 09:32 Laboratory Tests 07/04/20 00:55: Arterial Blood pH 7.326L, Arterial Blood Partial Pressure CO2 78.7*H, Arterial Blood Partial Pressure O2 32.8*L, Arterial Blood HCO3 40.2*H, Arterial Blood Oxygen Saturation 58.5*L, Arterial Blood Base Excess 11.5*H, Amrit Test Positive 07/04/20 01:44: Arterial Blood pH 7.364, Arterial Blood Partial Pressure CO2 65.3*H, Arterial Blood Partial Pressure O2 58.2L, Arterial Blood HCO3 36.4H, Arterial Blood Oxygen Saturation 86.9*L, Arterial Blood Base Excess 9.2*H, Amrit Test Positive 07/04/20 03:40: White Blood Count 9.6, Red Blood Count 3.20L, Hemoglobin 9.6L, Hematocrit 30.9L, Mean Corpuscular Volume 96, Mean Corpuscular Hemoglobin 30.1, Mean Corpuscular Hemoglobin Concent 31.3L, Red Cell Distribution Width 15.0H, Platelet Count 90L, Mean Platelet Volume 8.6, Neutrophils (%) (Auto) , Lymphocytes (%) (Auto) , Monocytes (%) (Auto) , Eosinophils (%) (Auto) , Basophils (%) (Auto) , Differential Total Cells Counted 100, Neutrophils % (Manual) 82H, Lymphocytes % (Manual) 10L, Monocytes % (Manual) 3, Eosinophils % (Manual) 4H, Basophils % (Manual) 0, Band Neutrophils 1, Platelet Estimate DecreasedL, Platelet Morphology Normal, Hypochromasia 1+, Anisocytosis 1+, Sodium Level 146H, Potassium Level 3.6, Chloride Level 107, Carbon Dioxide Level 36H, Anion Gap 4L, Blood Urea Nitrogen 15, Creatinine 0.4L, Estimat Glomerular Filtration Rate > 60, Glucose Level 149H, Uric Acid 1.2L, Calcium Level 7.4L, Phosphorus Level 2.3L, Magnesium Level 2.0, Total Bilirubin 0.5, Aspartate Amino Transf (AST/SGOT) 55H, Alanine Aminotransferase (ALT/SGPT) 52, Alkaline Phosphatase 136H, C-Reactive Protein, Quantitative 11.2H, Pro-B-Type Natriuretic Peptide 271H, Total Protein 5.4L, Albumin 1.1L, Globulin 4.3, Albumin/Globulin Ratio 0.3L, Vitamin D 25-Hydroxy [Pending], 25-Hydroxy Vitamin D2 [Pending], 25- Hydroxy Vitamin D3 [Pending] Height (Feet): 5 Height (Inches): 2.00 Weight (Pounds): 138 General Appearance: no apparent distress EENT: other - Intubated on ventilator Cardiovascular: tachycardia Respiratory/Chest: decreased breath sounds, other - Bilateral chest tube Abdomen: distended Raza De Jesus MD Jul 04, 2020 12:32
--- NOTE | 2020-07-04 12:36 | Surgery Progress Note ---
Surgery Progress Note Subjective Procedure Performed 1. right chest tube insertion 2. left chest tube insertion Additional Comments Chest x-ray noted. Recurrent right pneumothorax. tube noted to be kinked. Tube repositioned unkinked now functional. Repeat imaging. Objective Last 24 Hour Vital Signs Date Time Temp Pulse Resp B/P (MAP) Pulse Ox O2 Delivery O2 Flow Rate FiO2 07/04/20 10:06 105 148/69 07/04/20 10:00 110 24 117/58 (77) 86 07/04/20 09:36 21 101/58 100 07/04/20 09:30 104 22 148/69 (95) 84 07/04/20 09:00 19 Mechanical Ventilator 100 07/04/20 09:00 19 113/58 Mechanical Ventilator 100 07/04/20 09:00 108 23 113/58 (76) 84 07/04/20 08:30 116 25 127/76 (93) 90 07/04/20 08:00 96.0 112 23 113/62 (79) 92 07/04/20 08:00 110 07/04/20 08:00 24 Mechanical Ventilator 100 07/04/20 08:00 24 113/62 Mechanical Ventilator 100 07/04/20 08:00 100 07/04/20 08:00 Mechanical Ventilator Mechanical Ventilator 07/04/20 07:38 109 20 100 07/04/20 07:30 114 23 129/70 (89) 90 07/04/20 07:00 116 22 128/71 (90) 92 07/04/20 07:00 22 Mechanical Ventilator 100 07/04/20 07:00 22 128/71 Mechanical Ventilator 100 07/04/20 06:45 119 22 149/75 (99) 82 07/04/20 06:31 27 Mechanical Ventilator 100 07/04/20 06:30 116 25 151/82 (105) 79 07/04/20 06:15 119 26 150/71 (97) 78 07/04/20 06:00 96.7 118 27 160/79 (106) 76 07/04/20 06:00 30 102/59 Mechanical Ventilator 100 07/04/20 05:45 118 26 145/78 (100) 80 07/04/20 05:30 117 26 165/70 (101) 83 07/04/20 05:15 120 28 131/74 (93) 89 07/04/20 05:00 30 115/61 Mechanical Ventilator 100 2/13/21 05:00 123 21 117/64 (81) 93 07/04/20 04:45 123 24 127/62 (83) 93 07/04/20 04:30 124 22 129/74 (92) 85 07/04/20 04:15 119 26 104/53 (70) 77 07/04/20 04:00 100.0 121 26 108/52 (70) 78 07/04/20 04:00 Mechanical Ventilator Mechanical Ventilator 07/04/20 04:00 30 110/62 Mechanical Ventilator 100 07/04/20 04:00 30 Mechanical Ventilator 100 07/04/20 04:00 100 07/04/20 03:51 115 26 100 07/04/20 03:45 119 26 95/57 (70) 75 07/04/20 03:30 120 26 94/62 (73) 72 07/04/20 03:15 118 26 99/52 (68) 71 07/04/20 03:00 116 26 99/57 (71) 72 07/04/20 03:00 29 114/62 Mechanical Ventilator 100 07/04/20 03:00 29 Mechanical Ventilator 100 07/04/20 02:45 115 27 109/55 (73) 73 07/04/20 02:30 112 26 128/65 (86) 73 07/04/20 02:15 111 26 109/68 (82) 78 07/04/20 02:00 110 24 117/61 (79) 85 07/04/20 02:00 24 117/61 Mechanical Ventilator 100 07/04/20 02:00 24 Mechanical Ventilator 100 07/04/20 01:45 111 27 105/47 (66) 93 07/04/20 01:44 112 07/04/20 01:30 113 26 97/55 (69) 91 07/04/20 01:15 115 25 94/59 (71) 81 07/04/20 01:00 116 26 96/49 (65) 88 07/04/20 01:00 28 96/49 Mechanical Ventilator 100 07/04/20 01:00 28 Mechanical Ventilator 100 07/04/20 00:45 112 19 91/53 (66) 85 07/04/20 00:30 111 17 101/51 (68) 81 07/04/20 00:15 109 28 123/63 (83) 90 07/04/20 00:00 Mechanical Ventilator Mechanical Ventilator 07/04/20 00:00 98.0 108 31 126/61 (82) 92 07/04/20 00:00 28 126/61 Mechanical Ventilator 100 07/04/20 00:00 28 Mechanical Ventilator 100 07/03/20 23:45 108 32 131/64 (86) 90 07/03/20 23:30 109 21 127/62 (83) 94 07/03/20 23:18 107 18 100 07/03/20 23:15 108 19 138/61 (86) 95 07/03/20 23:00 107 18 131/67 (88) 94 07/03/20 23:00 30 131/67 Mechanical Ventilator 100 07/03/20 23:00 31 Mechanical Ventilator 100 07/03/20 22:45 107 22 125/71 (89) 93 07/03/20 22:30 107 20 128/70 (89) 94 07/03/20 22:15 106 18 115/63 (80) 95 07/03/20 22:00 95.3 105 18 123/59 (80) 95 07/03/20 22:00 18 148/80 Mechanical Ventilator 100 07/03/20 22:00 18 Mechanical Ventilator 100 07/03/20 21:45 106 16 107/59 (75) 96 07/03/20 21:30 105 16 119/58 (78) 94 07/03/20 21:15 105 17 115/60 (78) 92 07/03/20 21:00 112 25 148/80 (102) 95 07/03/20 21:00 16 148/80 Mechanical Ventilator 100 07/03/20 21:00 16 Mechanical Ventilator 100 07/03/20 21:00 105 123/59 07/03/20 20:45 101 30 150/86 (107) 93 07/03/20 20:30 100 31 158/70 (99) 92 07/03/20 20:30 31 158/79 Mechanical Ventilator 100 07/03/20 20:15 95 31 157/83 (107) 90 07/03/20 20:00 100 07/03/20 20:00 95 29 158/79 (105) 92 07/03/20 20:00 30 158/79 Mechanical Ventilator 100 07/03/20 20:00 30 Mechanical Ventilator 100 07/03/20 20:00 Mechanical Ventilator Mechanical Ventilator 07/03/20 19:45 92 31 168/75 (106) 93 07/03/20 19:33 98 07/03/20 19:30 96 31 169/98 (121) 94 07/03/20 19:15 98 34 166/74 (104) 94 07/03/20 19:08 104 25 100 07/03/20 19:00 32 169/98 Mechanical Ventilator 100 07/03/20 19:00 31 Mechanical Ventilator 100 07/03/20 19:00 31 169/69 Mechanical Ventilator 100 07/03/20 19:00 97.3 115 25 162/70 (100) 91 07/03/20 18:00 108 30 180/78 (112) 85 07/03/20 17:00 104 33 161/81 (107) 84 07/03/20 16:15 113 31 120/59 (79) 95 07/03/20 16:00 97 07/03/20 16:00 110 31 112/52 (72) 95 07/03/20 16:00 113 07/03/20 16:00 Mechanical Ventilator Mechanical Ventilator 07/03/20 16:00 100 07/03/20 15:45 110 30 111/57 (75) 95 07/03/20 15:42 112 30 100 07/03/20 15:30 113 30 120/59 (79) 96 07/03/20 15:30 110 30 108/53 (71) 96 07/03/20 15:15 109 30 114/53 (73) 96 07/03/20 15:00 109 30 96 07/03/20 15:00 109 30 110/61 (77) 96 07/03/20 14:30 106 29 107/61 (76) 97 07/03/20 14:15 105 29 100/54 (69) 98 07/03/20 14:00 105 28 104/57 (73) 99 07/03/20 13:45 106 28 103/55 (71) 97 07/03/20 13:30 104 29 102/57 (72) 98 07/03/20 13:15 106 29 100/51 (67) 98 07/03/20 13:00 103 28 104/54 (71) 96 07/03/20 13:00 98.9 105 27 102/57 (72) 100 07/03/20 12:45 103 27 93/54 (67) 97 07/03/20 12:38 99.1 I&O Intake and Output 07/03/20 07/04/20 19:00 07:00 Intake Total 1084 ml 1648.0 ml Output Total 300 ml 635 ml Balance 784 ml 1013.0 ml Intake Free Water 300 ml IV Total 479 ml 743.0 ml Tube Feeding 605 ml 605 ml Output Urine Total 300 ml 515 ml Chest Tube Drainage Total 120 ml Dressing: saturated Cardiovascular: RSR Respiratory: decreased breath sounds Abdomen: soft, non-tender, present bowel sounds Extremities: edema, no cyanosis Laboratory Tests Test 07/04/20 00:55 07/04/20 01:44 07/04/20 03:40 Arterial Blood pH 7.326 (7.350-7.450) 7.364 (7.350-7.450) Arterial Blood Partial Pressure CO2 78.7 mmHg (35.0-45.0) *H 65.3 mmHg (35.0-45.0) *H Arterial Blood Partial Pressure O2 32.8 mmHg (75.0-100.0) 58.2 mmHg (75.0-100.0) L Arterial Blood HCO3 40.2 mmol/L (22.0-26.0) *H 36.4 mmol/L (22.0-26.0) H Arterial Blood Oxygen Saturation 58.5 % (95-100) *L 86.9 % (95-100) *L Arterial Blood Base Excess 11.5 (-2-2) *H 9.2 (-2-2) *H Amrit Test Positive Positive White Blood Count 9.6 K/UL (4.8-10.8) Red Blood Count 3.20 M/UL (4.20-5.40) L Hemoglobin 9.6 G/DL (12.0-16.0) L Hematocrit 30.9 % (37.0-47.0) L Mean Corpuscular Volume 96 FL (80-99) Mean Corpuscular Hemoglobin 30.1 PG (27.0-31.0) Mean Corpuscular Hemoglobin Concent 31.3 G/DL (32.0-36.0) L Red Cell Distribution Width 15.0 % (11.6-14.8) H Platelet Count 90 K/UL (150-450) L Mean Platelet Volume 8.6 FL (6.5-10.1) Neutrophils (%) (Auto) % (45.0-75.0) Lymphocytes (%) (Auto) % (20.0-45.0) Monocytes (%) (Auto) % (1.0-10.0) Eosinophils (%) (Auto) % (0.0-3.0) Basophils (%) (Auto) % (0.0-2.0) Differential Total Cells Counted 100 Neutrophils % (Manual) 82 % (45-75) H Lymphocytes % (Manual) 10 % (20-45) L Monocytes % (Manual) 3 % (1-10) Eosinophils % (Manual) 4 % (0-3) H Basophils % (Manual) 0 % (0-2) Band Neutrophils 1 % (0-8) Platelet Estimate Decreased L Platelet Morphology Normal Hypochromasia 1+ Anisocytosis 1+ Sodium Level 146 MMOL/L (136-145) H Potassium Level 3.6 MMOL/L (3.5-5.1) Chloride Level 107 MMOL/L (98-107) Carbon Dioxide Level 36 MMOL/L (21-32) H Anion Gap 4 mmol/L (5-15) L Blood Urea Nitrogen 15 mg/dL (7-18) Creatinine 0.4 MG/DL (0.55-1.30) L Estimat Glomerular Filtration Rate > 60 mL/min (>60) Glucose Level 149 MG/DL (74-106) H Uric Acid 1.2 MG/DL (2.6-7.2) L Calcium Level 7.4 MG/DL (8.5-10.1) L Phosphorus Level 2.3 MG/DL (2.5-4.9) L Magnesium Level 2.0 MG/DL (1.8-2.4) Total Bilirubin 0.5 MG/DL (0.2-1.0) Aspartate Amino Transf (AST/SGOT) 55 U/L (15-37) H Alanine Aminotransferase (ALT/SGPT) 52 U/L (12-78) Alkaline Phosphatase 136 U/L (46-116) H C-Reactive Protein, Quantitative 11.2 mg/dL (0.00-0.90) H Pro-B-Type Natriuretic Peptide 271 pg/mL (0-125) H Total Protein 5.4 G/DL (6.4-8.2) L Albumin 1.1 G/DL (3.4-5.0) L Globulin 4.3 g/dL Albumin/Globulin Ratio 0.3 (1.0-2.7) L Vitamin D 25-Hydroxy Pending 25-Hydroxy Vitamin D2 Pending 25-Hydroxy Vitamin D3 Pending Plan Problems: (1) Renal insufficiency (2) Elevated d-dimer (3) Dehydration (4) LEONARDO (acute kidney injury) (5) DMII (diabetes mellitus, type 2) (6) Hypoxia (7) Pneumonia due to COVID-19 virus (8) PNA (pneumonia) (9) Pneumothorax Assessment & Plan: Bilateral pneumothorax status post bilateral chest tubes. Still on significant vent support. leak performed. Continue weaning vent. Continue with chest tubes. Will monitor and manage chest tubes accordingly. Thank you for let me to participate in patient's care Continue bilateral chest tubes on suction the airleak is worse her peak pressures are high prognosis overall is guarded. Imaging reviewed Bilateral air leaks noted high pressures continue chest tube suction recurrent right ptx tube fixed imaging Elpidio Frazier Jul 04, 2020 12:36
--- NOTE | 2020-07-04 16:33 | General Progress Note ---
Subjective ROS Limited/Unobtainable: Yes Allergies: Coded Allergies: No Known Allergies (Unverified , 06/17/20) Objective Last 24 Hour Vital Signs Date Time Temp Pulse Resp B/P (MAP) Pulse Ox O2 Delivery O2 Flow Rate FiO2 07/04/20 16:00 Mechanical Ventilator Mechanical Ventilator 07/04/20 16:00 99.8 134 28 133/69 (90) 53 07/04/20 16:00 100 07/04/20 16:00 137 07/04/20 15:30 129 26 133/64 (87) 63 07/04/20 15:00 26 Mechanical Ventilator 100 07/04/20 15:00 26 119/72 Mechanical Ventilator 100 07/04/20 15:00 128 27 119/72 (88) 67 07/04/20 14:30 128 28 140/71 (94) 53 07/04/20 14:00 28 Mechanical Ventilator 100 07/04/20 14:00 28 152/69 Mechanical Ventilator 100 07/04/20 14:00 128 28 152/69 (96) 56 07/04/20 13:30 125 31 160/75 (103) 50 07/04/20 13:00 30 Mechanical Ventilator 100 07/04/20 13:00 30 145/72 Mechanical Ventilator 100 07/04/20 13:00 118 31 145/72 (96) 42 07/04/20 12:30 111 25 111/57 (75) 88 07/04/20 12:00 110 07/04/20 12:00 99.7 111 24 104/56 (72) 89 07/04/20 12:00 25 Mechanical Ventilator 100 07/04/20 12:00 22 121/64 Mechanical Ventilator 100 07/04/20 12:00 Mechanical Ventilator Mechanical Ventilator 07/04/20 12:00 114 28 121/64 (83) 78 07/04/20 12:00 100 07/04/20 11:38 110 27 100 07/04/20 11:00 112 24 111/57 (75) 89 07/04/20 11:00 19 Mechanical Ventilator 100 07/04/20 11:00 24 111/57 Mechanical Ventilator 100 07/04/20 10:06 105 148/69 07/04/20 10:00 110 24 117/58 (77) 86 07/04/20 10:00 22 Non-Rebreather 100 07/04/20 10:00 19 117/58 Mechanical Ventilator 100 07/04/20 09:36 21 101/58 100 07/04/20 09:30 104 22 148/69 (95) 84 07/04/20 09:00 19 Mechanical Ventilator 100 07/04/20 09:00 19 113/58 Mechanical Ventilator 100 07/04/20 09:00 108 23 113/58 (76) 84 07/04/20 08:30 116 25 127/76 (93) 90 07/04/20 08:00 96.0 112 23 113/62 (79) 92 07/04/20 08:00 110 07/04/20 08:00 24 Mechanical Ventilator 100 07/04/20 08:00 24 113/62 Mechanical Ventilator 100 07/04/20 08:00 100 07/04/20 08:00 Mechanical Ventilator Mechanical Ventilator 07/04/20 07:38 109 20 100 07/04/20 07:30 114 23 129/70 (89) 90 07/04/20 07:00 116 22 128/71 (90) 92 07/04/20 07:00 22 Mechanical Ventilator 100 07/04/20 07:00 22 128/71 Mechanical Ventilator 100 07/04/20 06:45 119 22 149/75 (99) 82 07/04/20 06:31 27 Mechanical Ventilator 100 07/04/20 06:30 116 25 151/82 (105) 79 07/04/20 06:15 119 26 150/71 (97) 78 07/04/20 06:00 96.7 118 27 160/79 (106) 76 07/04/20 06:00 30 102/59 Mechanical Ventilator 100 07/04/20 05:45 118 26 145/78 (100) 80 07/04/20 05:30 117 26 165/70 (101) 83 07/04/20 05:15 120 28 131/74 (93) 89 07/04/20 05:00 30 115/61 Mechanical Ventilator 100 07/04/20 05:00 123 21 117/64 (81) 93 07/04/20 04:45 123 24 127/62 (83) 93 07/04/20 04:30 124 22 129/74 (92) 85 07/04/20 04:15 119 26 104/53 (70) 77 07/04/20 04:00 100.0 121 26 108/52 (70) 78 07/04/20 04:00 Mechanical Ventilator Mechanical Ventilator 07/04/20 04:00 30 110/62 Mechanical Ventilator 100 07/04/20 04:00 30 Mechanical Ventilator 100 07/04/20 04:00 100 07/04/20 03:51 115 26 100 07/04/20 03:45 119 26 95/57 (70) 75 07/04/20 03:30 120 26 94/62 (73) 72 07/04/20 03:15 118 26 99/52 (68) 71 07/04/20 03:00 116 26 99/57 (71) 72 07/04/20 03:00 29 114/62 Mechanical Ventilator 100 07/04/20 03:00 29 Mechanical Ventilator 100 07/04/20 02:45 115 27 109/55 (73) 73 07/04/20 02:30 112 26 128/65 (86) 73 07/04/20 02:15 111 26 109/68 (82) 78 07/04/20 02:00 110 24 117/61 (79) 85 07/04/20 02:00 24 117/61 Mechanical Ventilator 100 07/04/20 02:00 24 Mechanical Ventilator 100 07/04/20 01:45 111 27 105/47 (66) 93 07/04/20 01:44 112 07/04/20 01:30 113 26 97/55 (69) 91 07/04/20 01:15 115 25 94/59 (71) 81 07/04/20 01:00 116 26 96/49 (65) 88 07/04/20 01:00 28 96/49 Mechanical Ventilator 100 07/04/20 01:00 28 Mechanical Ventilator 100 07/04/20 00:45 112 19 91/53 (66) 85 07/04/20 00:30 111 17 101/51 (68) 81 07/04/20 00:15 109 28 123/63 (83) 90 07/04/20 00:00 Mechanical Ventilator Mechanical Ventilator 07/04/20 00:00 98.0 108 31 126/61 (82) 92 07/04/20 00:00 28 126/61 Mechanical Ventilator 100 07/04/20 00:00 28 Mechanical Ventilator 100 07/03/20 23:45 108 32 131/64 (86) 90 07/03/20 23:30 109 21 127/62 (83) 94 07/03/20 23:18 107 18 100 07/03/20 23:15 108 19 138/61 (86) 95 07/03/20 23:00 107 18 131/67 (88) 94 07/03/20 23:00 30 131/67 Mechanical Ventilator 100 07/03/20 23:00 31 Mechanical Ventilator 100 07/03/20 22:45 107 22 125/71 (89) 93 07/03/20 22:30 107 20 128/70 (89) 94 07/03/20 22:15 106 18 115/63 (80) 95 07/03/20 22:00 95.3 105 18 123/59 (80) 95 07/03/20 22:00 18 148/80 Mechanical Ventilator 100 07/03/20 22:00 18 Mechanical Ventilator 100 07/03/20 21:45 106 16 107/59 (75) 96 07/03/20 21:30 105 16 119/58 (78) 94 07/03/20 21:15 105 17 115/60 (78) 92 07/03/20 21:00 112 25 148/80 (102) 95 07/03/20 21:00 16 148/80 Mechanical Ventilator 100 07/03/20 21:00 16 Mechanical Ventilator 100 07/03/20 21:00 105 123/59 07/03/20 20:45 101 30 150/86 (107) 93 07/03/20 20:30 100 31 158/70 (99) 92 07/03/20 20:30 31 158/79 Mechanical Ventilator 100 07/03/20 20:15 95 31 157/83 (107) 90 07/03/20 20:00 100 07/03/20 20:00 95 29 158/79 (105) 92 07/03/20 20:00 30 158/79 Mechanical Ventilator 100 07/03/20 20:00 30 Mechanical Ventilator 100 07/03/20 20:00 Mechanical Ventilator Mechanical Ventilator 07/03/20 19:45 92 31 168/75 (106) 93 07/03/20 19:33 98 07/03/20 19:30 96 31 169/98 (121) 94 07/03/20 19:15 98 34 166/74 (104) 94 07/03/20 19:08 104 25 100 07/03/20 19:00 32 169/98 Mechanical Ventilator 100 07/03/20 19:00 31 Mechanical Ventilator 100 07/03/20 19:00 31 169/69 Mechanical Ventilator 100 07/03/20 19:00 97.3 115 25 162/70 (100) 91 07/03/20 18:00 108 30 180/78 (112) 85 07/03/20 17:00 104 33 161/81 (107) 84 Intake and Output0 07/03/20 07/04/20 19:00 07:00 Intake Total 1084 ml 1648.0 ml Output Total 300 ml 635 ml Balance 784 ml 1013.0 ml Intake Free Water 300 ml IV Total 479 ml 743.0 ml Tube Feeding 605 ml 605 ml Output Urine Total 300 ml 515 ml Chest Tube Drainage Total 120 ml Laboratory Tests 07/04/20 00:55: Arterial Blood pH 7.326L, Arterial Blood Partial Pressure CO2 78.7*H, Arterial Blood Partial Pressure O2 32.8*L, Arterial Blood HCO3 40.2*H, Arterial Blood Oxygen Saturation 58.5*L, Arterial Blood Base Excess 11.5*H, Amrit Test Positive 07/04/20 01:44: Arterial Blood pH 7.364, Arterial Blood Partial Pressure CO2 65.3*H, Arterial Blood Partial Pressure O2 58.2L, Arterial Blood HCO3 36.4H, Arterial Blood Oxygen Saturation 86.9*L, Arterial Blood Base Excess 9.2*H, Amrit Test Positive 07/04/20 03:40: White Blood Count 9.6, Red Blood Count 3.20L, Hemoglobin 9.6L, Hematocrit 30.9L, Mean Corpuscular Volume 96, Mean Corpuscular Hemoglobin 30.1, Mean Corpuscular Hemoglobin Concent 31.3L, Red Cell Distribution Width 15.0H, Platelet Count 90L, Mean Platelet Volume 8.6, Neutrophils (%) (Auto) , Lymphocytes (%) (Auto) , Monocytes (%) (Auto) , Eosinophils (%) (Auto) , Basophils (%) (Auto) , Differential Total Cells Counted 100, Neutrophils % (Manual) 82H, Lymphocytes % (Manual) 10L, Monocytes % (Manual) 3, Eosinophils % (Manual) 4H, Basophils % (Manual) 0, Band Neutrophils 1, Platelet Estimate DecreasedL, Platelet Morphology Normal, Hypochromasia 1+, Anisocytosis 1+, Sodium Level 146H, Potassium Level 3.6, Chloride Level 107, Carbon Dioxide Level 36H, Anion Gap 4L, Blood Urea Nitrogen 15, Creatinine 0.4L, Estimat Glomerular Filtration Rate > 60, Glucose Level 149H, Uric Acid 1.2L, Calcium Level 7.4L, Phosphorus Level 2.3L, Magnesium Level 2.0, Total Bilirubin 0.5, Aspartate Amino Transf (AST/SGOT) 55H, Alanine Aminotransferase (ALT/SGPT) 52, Alkaline Phosphatase 136H, C-Reactive Protein, Quantitative 11.2H, Pro-B-Type Natriuretic Peptide 271H, Total Protein 5.4L, Albumin 1.1L, Globulin 4.3, Albumin/Globulin Ratio 0.3L, Vitamin D 25-Hydroxy [Pending], 25-Hydroxy Vitamin D2 [Pending], 25- Hydroxy Vitamin D3 [Pending] Height (Feet): 5 Height (Inches): 2.00 Weight (Pounds): 138 Assessment/Plan Problem List: (1) Elevated d-dimer ICD Codes: R79.89 - Other specified abnormal findings of blood chemistry SNOMED: 022364419 (2) Renal insufficiency ICD Codes: N28.9 - Disorder of kidney and ureter, unspecified SNOMED: 002586580, 932178759 (3) PNA (pneumonia) ICD Codes: J18.9 - Pneumonia, unspecified organism SNOMED: 219123457 (4) Dehydration ICD Codes: E86.0 - Dehydration SNOMED: 38195719 (5) LEONARDO (acute kidney injury) ICD Codes: N17.9 - Acute kidney failure, unspecified SNOMED: 8843722, 28094487 (6) Hypoxia ICD Codes: R09.02 - Hypoxemia; J12.82 - Pneumonia due to coronavirus disease 2019 SNOMED: 232761510 (7) Pneumonia due to COVID-19 virus ICD Codes: U07.1 - COVID-19; J12.82 - Pneumonia due to coronavirus disease 2019 SNOMED: 389627780214388812 (8) DMII (diabetes mellitus, type 2) ICD Codes: E11.9 - Type 2 diabetes mellitus without complications SNOMED: 77892056 Status: progressing, unchanged Assessment/Plan: covid + failure to weam trach decision per dr dugan lethargic intubated niddm azotemia Vidya Clayton MD Jul 04, 2020 16:33
--- NOTE | 2020-07-04 16:49 | Cardiac Electrophysiology PN ---
Assessment/Plan Assessment/Plan 1. Respiratory failure likely due to COVID pneumonia. Intubated on 100% Fio2. Echo showed Nl EF 2. Bilateral pneumothoraces. S/P bilateral chest tube placement. Right chest tube repositioned today 3. Troponin elevation. Levels are low and flat could be demand ischemia vs Renal failure EKG shows sinus tachycardia at 110 beats per minute. 4. Hypernatremia with sodium of 155. Resolved 5. Volume overload. On Lasix 40 iv daily 6. COVID-19 positive and is in isolation, on dexamethasone, completed Remdesivir. 7. Hypertension, on Coreg 6.25 mg b.i.d. and Lasix 8. Full code DW RN Subjective Subjective Intubated in ICU on Fentanyl and Versed drip. Had Right Chest tubes repositioned by Dr Frazier On 100% Fio2, PEEP 8 . Off pressors Objective Last 24 Hour Vital Signs Date Time Temp Pulse Resp B/P (MAP) Pulse Ox O2 Delivery O2 Flow Rate FiO2 07/04/20 16:00 Mechanical Ventilator Mechanical Ventilator 07/04/20 16:00 99.8 134 28 133/69 (90) 53 07/04/20 16:00 100 07/04/20 16:00 137 07/04/20 15:30 129 26 133/64 (87) 63 07/04/20 15:00 26 Mechanical Ventilator 100 07/04/20 15:00 26 119/72 Mechanical Ventilator 100 07/04/20 15:00 128 27 119/72 (88) 67 07/04/20 14:30 128 28 140/71 (94) 53 07/04/20 14:00 28 Mechanical Ventilator 100 07/04/20 14:00 28 152/69 Mechanical Ventilator 100 07/04/20 14:00 128 28 152/69 (96) 56 07/04/20 13:30 125 31 160/75 (103) 50 07/04/20 13:00 30 Mechanical Ventilator 100 07/04/20 13:00 30 145/72 Mechanical Ventilator 100 07/04/20 13:00 118 31 145/72 (96) 42 07/04/20 12:30 111 25 111/57 (75) 88 07/04/20 12:00 110 07/04/20 12:00 99.7 111 24 104/56 (72) 89 07/04/20 12:00 25 Mechanical Ventilator 100 07/04/20 12:00 22 121/64 Mechanical Ventilator 100 07/04/20 12:00 Mechanical Ventilator Mechanical Ventilator 07/04/20 12:00 114 28 121/64 (83) 78 07/04/20 12:00 100 07/04/20 11:38 110 27 100 07/04/20 11:00 112 24 111/57 (75) 89 07/04/20 11:00 19 Mechanical Ventilator 100 07/04/20 11:00 24 111/57 Mechanical Ventilator 100 07/04/20 10:06 105 148/69 07/04/20 10:00 110 24 117/58 (77) 86 07/04/20 10:00 22 Non-Rebreather 100 07/04/20 10:00 19 117/58 Mechanical Ventilator 100 07/04/20 09:36 21 101/58 100 07/04/20 09:30 104 22 148/69 (95) 84 07/04/20 09:00 19 Mechanical Ventilator 100 07/04/20 09:00 19 113/58 Mechanical Ventilator 100 07/04/20 09:00 108 23 113/58 (76) 84 07/04/20 08:30 116 25 127/76 (93) 90 07/04/20 08:00 96.0 112 23 113/62 (79) 92 07/04/20 08:00 110 07/04/20 08:00 24 Mechanical Ventilator 100 07/04/20 08:00 24 113/62 Mechanical Ventilator 100 07/04/20 08:00 100 07/04/20 08:00 Mechanical Ventilator Mechanical Ventilator 07/04/20 07:38 109 20 100 07/04/20 07:30 114 23 129/70 (89) 90 07/04/20 07:00 116 22 128/71 (90) 92 07/04/20 07:00 22 Mechanical Ventilator 100 07/04/20 07:00 22 128/71 Mechanical Ventilator 100 07/04/20 06:45 119 22 149/75 (99) 82 07/04/20 06:31 27 Mechanical Ventilator 100 07/04/20 06:30 116 25 151/82 (105) 79 07/04/20 06:15 119 26 150/71 (97) 78 07/04/20 06:00 96.7 118 27 160/79 (106) 76 07/04/20 06:00 30 102/59 Mechanical Ventilator 100 07/04/20 05:45 118 26 145/78 (100) 80 07/04/20 05:30 117 26 165/70 (101) 83 07/04/20 05:15 120 28 131/74 (93) 89 07/04/20 05:00 30 115/61 Mechanical Ventilator 100 07/04/20 05:00 123 21 117/64 (81) 93 07/04/20 04:45 123 24 127/62 (83) 93 07/04/20 04:30 124 22 129/74 (92) 85 07/04/20 04:15 119 26 104/53 (70) 77 07/04/20 04:00 100.0 121 26 108/52 (70) 78 07/04/20 04:00 Mechanical Ventilator Mechanical Ventilator 07/04/20 04:00 30 110/62 Mechanical Ventilator 100 07/04/20 04:00 30 Mechanical Ventilator 100 07/04/20 04:00 100 07/04/20 03:51 115 26 100 07/04/20 03:45 119 26 95/57 (70) 75 07/04/20 03:30 120 26 94/62 (73) 72 07/04/20 03:15 118 26 99/52 (68) 71 07/04/20 03:00 116 26 99/57 (71) 72 07/04/20 03:00 29 114/62 Mechanical Ventilator 100 07/04/20 03:00 29 Mechanical Ventilator 100 07/04/20 02:45 115 27 109/55 (73) 73 07/04/20 02:30 112 26 128/65 (86) 73 07/04/20 02:15 111 26 109/68 (82) 78 07/04/20 02:00 110 24 117/61 (79) 85 07/04/20 02:00 24 117/61 Mechanical Ventilator 100 07/04/20 02:00 24 Mechanical Ventilator 100 07/04/20 01:45 111 27 105/47 (66) 93 07/04/20 01:44 112 07/04/20 01:30 113 26 97/55 (69) 91 07/04/20 01:15 115 25 94/59 (71) 81 07/04/20 01:00 116 26 96/49 (65) 88 07/04/20 01:00 28 96/49 Mechanical Ventilator 100 07/04/20 01:00 28 Mechanical Ventilator 100 07/04/20 00:45 112 19 91/53 (66) 85 07/04/20 00:30 111 17 101/51 (68) 81 07/04/20 00:15 109 28 123/63 (83) 90 07/04/20 00:00 Mechanical Ventilator Mechanical Ventilator 07/04/20 00:00 98.0 108 31 126/61 (82) 92 07/04/20 00:00 28 126/61 Mechanical Ventilator 100 07/04/20 00:00 28 Mechanical Ventilator 100 07/03/20 23:45 108 32 131/64 (86) 90 07/03/20 23:30 109 21 127/62 (83) 94 07/03/20 23:18 107 18 100 07/03/20 23:15 108 19 138/61 (86) 95 07/03/20 23:00 107 18 131/67 (88) 94 07/03/20 23:00 30 131/67 Mechanical Ventilator 100 07/03/20 23:00 31 Mechanical Ventilator 100 07/03/20 22:45 107 22 125/71 (89) 93 07/03/20 22:30 107 20 128/70 (89) 94 07/03/20 22:15 106 18 115/63 (80) 95 07/03/20 22:00 95.3 105 18 123/59 (80) 95 07/03/20 22:00 18 148/80 Mechanical Ventilator 100 07/03/20 22:00 18 Mechanical Ventilator 100 07/03/20 21:45 106 16 107/59 (75) 96 07/03/20 21:30 105 16 119/58 (78) 94 07/03/20 21:15 105 17 115/60 (78) 92 07/03/20 21:00 112 25 148/80 (102) 95 07/03/20 21:00 16 148/80 Mechanical Ventilator 100 07/03/20 21:00 16 Mechanical Ventilator 100 07/03/20 21:00 105 123/59 07/03/20 20:45 101 30 150/86 (107) 93 07/03/20 20:30 100 31 158/70 (99) 92 07/03/20 20:30 31 158/79 Mechanical Ventilator 100 07/03/20 20:15 95 31 157/83 (107) 90 07/03/20 20:00 100 07/03/20 20:00 95 29 158/79 (105) 92 07/03/20 20:00 30 158/79 Mechanical Ventilator 100 07/03/20 20:00 30 Mechanical Ventilator 100 07/03/20 20:00 Mechanical Ventilator Mechanical Ventilator 07/03/20 19:45 92 31 168/75 (106) 93 07/03/20 19:33 98 07/03/20 19:30 96 31 169/98 (121) 94 07/03/20 19:15 98 34 166/74 (104) 94 07/03/20 19:08 104 25 100 07/03/20 19:00 32 169/98 Mechanical Ventilator 100 07/03/20 19:00 31 Mechanical Ventilator 100 07/03/20 19:00 31 169/69 Mechanical Ventilator 100 07/03/20 19:00 97.3 115 25 162/70 (100) 91 07/03/20 18:00 108 30 180/78 (112) 85 07/03/20 17:00 104 33 161/81 (107) 84 Intake and Output 07/03/20 07/04/20 19:00 07:00 Intake Total 1084 ml 1648.0 ml Output Total 300 ml 635 ml Balance 784 ml 1013.0 ml Intake Free Water 300 ml IV Total 479 ml 743.0 ml Tube Feeding 605 ml 605 ml Output Urine Total 300 ml 515 ml Chest Tube Drainage Total 120 ml Laboratory Tests Test 07/04/20 00:55 07/04/20 01:44 07/04/20 03:40 Arterial Blood pH 7.326 (7.350-7.450) 7.364 (7.350-7.450) Arterial Blood Partial Pressure CO2 78.7 mmHg (35.0-45.0) *H 65.3 mmHg (35.0-45.0) *H Arterial Blood Partial Pressure O2 32.8 mmHg (75.0-100.0) 58.2 mmHg (75.0-100.0) L Arterial Blood HCO3 40.2 mmol/L (22.0-26.0) *H 36.4 mmol/L (22.0-26.0) H Arterial Blood Oxygen Saturation 58.5 % (95-100) *L 86.9 % (95-100) *L Arterial Blood Base Excess 11.5 (-2-2) *H 9.2 (-2-2) *H Amrit Test Positive Positive White Blood Count 9.6 K/UL (4.8-10.8) Red Blood Count 3.20 M/UL (4.20-5.40) L Hemoglobin 9.6 G/DL (12.0-16.0) L Hematocrit 30.9 % (37.0-47.0) L Mean Corpuscular Volume 96 FL (80-99) Mean Corpuscular Hemoglobin 30.1 PG (27.0-31.0) Mean Corpuscular Hemoglobin Concent 31.3 G/DL (32.0-36.0) L Red Cell Distribution Width 15.0 % (11.6-14.8) H Platelet Count 90 K/UL (150-450) L Mean Platelet Volume 8.6 FL (6.5-10.1) Neutrophils (%) (Auto) % (45.0-75.0) Lymphocytes (%) (Auto) % (20.0-45.0) Monocytes (%) (Auto) % (1.0-10.0) Eosinophils (%) (Auto) % (0.0-3.0) Basophils (%) (Auto) % (0.0-2.0) Differential Total Cells Counted 100 Neutrophils % (Manual) 82 % (45-75) H Lymphocytes % (Manual) 10 % (20-45) L Monocytes % (Manual) 3 % (1-10) Eosinophils % (Manual) 4 % (0-3) H Basophils % (Manual) 0 % (0-2) Band Neutrophils 1 % (0-8) Platelet Estimate Decreased L Platelet Morphology Normal Hypochromasia 1+ Anisocytosis 1+ Sodium Level 146 MMOL/L (136-145) H Potassium Level 3.6 MMOL/L (3.5-5.1) Chloride Level 107 MMOL/L (98-107) Carbon Dioxide Level 36 MMOL/L (21-32) H Anion Gap 4 mmol/L (5-15) L Blood Urea Nitrogen 15 mg/dL (7-18) Creatinine 0.4 MG/DL (0.55-1.30) L Estimat Glomerular Filtration Rate > 60 mL/min (>60) Glucose Level 149 MG/DL (74-106) H Uric Acid 1.2 MG/DL (2.6-7.2) L Calcium Level 7.4 MG/DL (8.5-10.1) L Phosphorus Level 2.3 MG/DL (2.5-4.9) L Magnesium Level 2.0 MG/DL (1.8-2.4) Total Bilirubin 0.5 MG/DL (0.2-1.0) Aspartate Amino Transf (AST/SGOT) 55 U/L (15-37) H Alanine Aminotransferase (ALT/SGPT) 52 U/L (12-78) Alkaline Phosphatase 136 U/L (46-116) H C-Reactive Protein, Quantitative 11.2 mg/dL (0.00-0.90) H Pro-B-Type Natriuretic Peptide 271 pg/mL (0-125) H Total Protein 5.4 G/DL (6.4-8.2) L Albumin 1.1 G/DL (3.4-5.0) L Globulin 4.3 g/dL Albumin/Globulin Ratio 0.3 (1.0-2.7) L Vitamin D 25-Hydroxy Pending 25-Hydroxy Vitamin D2 Pending 25-Hydroxy Vitamin D3 Pending Objective HEAD AND NECK: No JVD.Orally intubated with SQ emphysema LUNGS: Coarse rhonchi bilaterally. Bilateral chest tubes in. CARDIOVASCULAR: Regular S1 and S2 and tachycardic. ABDOMEN: Soft. EXTREMITIES: No pitting edema. Maxwell Carreon MD Jul 04, 2020 16:49
--- NOTE | 2020-07-04 18:45 | NUR ---
0745: Received nurse from [facility] [place]. Pt intubated and sedated. Pt breathing over vent at this time. Pt grimaces and becomes tachypneic with any movement. Pt currently with O2 saturation at 90's. 1200: MD repositioned chest tube. Now patent and draining. 1330: Pt with low O2 saturation in the 50's. RT was called to bedside. Attempted to call pulmonary MD x2. Voicemail left. Awaiting call back. 1600: Attempted to reach MD again. Awaiting call back. Cardiology was seen at bedside and updated. No new orders. Notified that L chest tube was not draining. Stated that Xray will be obtained in the AM and will reassess at that time. 1800: Pt remains with low O2 saturations in the 80's. Awaiting call back from . Son called and was updated. Pt remains on cooling blanket to control temperatures.
--- NOTE | 2020-07-04 19:24 | NUR ---
Report received from NORMAN Diop and assumed care of patient. Pt continues to sat in low 80's to 70's, MD Sewell aware and received no new orders overnight. Day Shift RN reported to this RN she attempted to call him twice and left messages with no return calls. Patient more tachycardic this evening into 130's, cardiology saw patient on day shift, and no new orders per Day shift RN. Will continue to monitor this patient.
--- NOTE | 2020-07-04 20:00 | NUR ---
In room to assess patient. CHG bath provided. Any manipulation of patient causes her to desaturate into low 70's. Unable to turn her due to instability at this time. Will attempt later if she becomes more stable. Patient remains in severe respiratory acidosis. TMax at 101.7. Patient is very temperature sensitive. She will spike a temp, nurses will turn on the cooling blanket and she will drop her temperatures quickly to 96 range[address] Will then place the cooling blanket on standby to monitor only temp and not treat then she will slowly spike back up. Will continue to monitor and adjust the cooling blanket as needed. Patient chest tubes are patent and draining. Oral care provided to which the patient dropped her saturation again to the low 70's. Pt did recover her saturation into the 80's at this time. Will continue to monitor. Dr. Sewell has not returned the Day shift RN calls to this RN as of this time. Did note that RT adjusted patent rate on ventilator to assist with elevated critical CO2 levels. AC is now at 26 all other settings remain the same on max levels.
[2020-07-04] MEDS: Dyna-Hex 2% Top Sol 2oz TOPIC SCH (20:18)
--- NOTE | 2020-07-04 22:30 | NUR ---
Leads changed on chest due to artifact. Patient has DTI to Chest from leads. Moved leads away from injury sites. Will capture photos and ensure upload by end of shift. Notified craps dealer of new wounds. Patient continues to saturate in the 70's and 80's. Remains too sensitive to turn at this time, however, will attempt when taking photos of sacral wound this shift. Pt remains tachycardic. Chest tubes remain intact and patent with serous drainage. Will continue to monitor.
[2020-07-05] VITALS (70 sets, daily range): BP systolic 95–185; BP diastolic 48–90
--- NOTE | 2020-07-05 00:20 | NUR ---
Took photos of patients chest wounds from telemetry leads. Due to instability did not turn patient for sacral photos. benefits consultant aware and concurs with this RN to not turn patient at this time. Pulse Oximetry continues to be int he 70's-80's on max ventilator settings. Continues to have urine output, chest tubes are patent and draining. Temperature decreased to 96F on cooling blanket. This RN placed cooling blanket on standby to monitor patient temperature only at this time due to lower temperature reading. Will continue to monitor patient.
[2020-07-05] MEDS: NovoLOG Insulin Flexpen SUBQ SCH ×4 (00:30→18:31)
--- NOTE | 2020-07-05 02:00 | NUR ---
Patient remains fragile. Vitals unchanged. Decreased urine output the last 2 hours. Chest tubes remain patent and draining. Will continue to monitor.
--- NOTE | 2020-07-05 04:00 | NUR ---
Patient remains fragile with movement and her saturations. B chest tubes remain in place and patent. BP stable. Remains on max vent settings. Will continue to monitor.
[2020-07-05] MEDS: Docusate 100mg/10ml Liq NG SCH ×3 (05:34→21:37)
--- NOTE | 2020-07-05 06:00 | NUR ---
Pt remains guarded. Chest tubes patent and draining. Will continue to monitor.
--- NOTE | 2020-07-05 07:19 | NUR ---
Report given to Chikis who assumed care of patient.
--- NOTE | 2020-07-05 07:59 | Pulmonology Progress Note ---
Subjective ROS Limited/Unobtainable: Yes Interval Events: Remains intubated; bilateral chest tubes in place Constitutional: Reports: fever, other - low grade in am HEENT: Repors: no symptoms Respiratory: Reports: shortness of breath Cardiovascular: Reports: no symptoms Gastrointestinal/Abdominal: Reports: no symptoms Allergies: Coded Allergies: No Known Allergies (Unverified , 06/17/20) All Systems: reviewed and negative except above Objective Last 24 Hour Vital Signs Date Time Temp Pulse Resp B/P (MAP) Pulse Ox O2 Delivery O2 Flow Rate FiO2 07/05/20 06:30 105 28 128/58 (81) 86 07/05/20 06:15 108 28 118/59 (78) 84 07/05/20 06:00 28 Mechanical Ventilator 100 07/05/20 06:00 28 118/59 Mechanical Ventilator 100 07/05/20 06:00 107 27 105/58 (74) 85 07/05/20 05:45 107 28 115/59 (77) 85 07/05/20 05:30 99.8 106 27 95/49 (64) 86 07/05/20 05:15 106 25 96/48 (64) 86 07/05/20 05:00 107 25 109/57 (74) 85 07/05/20 05:00 27 Mechanical Ventilator 100 07/05/20 05:00 27 135/71 Mechanical Ventilator 100 07/05/20 04:45 108 27 130/65 (86) 85 07/05/20 04:30 108 27 119/60 (79) 84 07/05/20 04:15 109 27 135/71 (92) 83 07/05/20 04:00 Mechanical Ventilator Mechanical Ventilator 07/05/20 04:00 96.3 111 27 117/52 (73) 83 07/05/20 04:00 26 Mechanical Ventilator 100 07/05/20 04:00 26 120/60 Mechanical Ventilator 100 07/05/20 04:00 100 07/05/20 03:45 109 07/05/20 03:45 109 26 104/58 (73) 85 07/05/20 03:30 109 26 105/57 (73) 86 07/05/20 03:15 109 25 120/60 (80) 87 07/05/20 03:09 108 27 100 07/05/20 03:00 28 Mechanical Ventilator 100 07/05/20 03:00 28 123/64 Mechanical Ventilator 100 07/05/20 03:00 112 27 123/64 (83) 87 07/05/20 02:45 113 25 129/62 (84) 87 07/05/20 02:30 115 26 143/66 (91) 84 07/05/20 02:15 116 27 140/73 (95) 83 07/05/20 02:00 115 27 134/72 (92) 85 07/05/20 02:00 28 Mechanical Ventilator 100 07/05/20 02:00 28 129/62 Mechanical Ventilator 100 07/05/20 01:45 100.4 114 27 114/60 (78) 85 07/05/20 01:30 114 28 112/59 (76) 85 07/05/20 01:15 115 26 118/54 (75) 86 07/05/20 01:00 115 26 112/56 (74) 87 07/05/20 01:00 27 Mechanical Ventilator 100 07/05/20 01:00 27 118/54 Mechanical Ventilator 100 07/05/20 00:45 117 24 119/64 (82) 87 07/05/20 00:30 119 28 122/66 (84) 87 07/05/20 00:15 96.0 121 26 121/61 (81) 87 07/05/20 00:00 124 27 128/69 (88) 86 07/05/20 00:00 27 Mechanical Ventilator 100 07/05/20 00:00 27 121/61 Mechanical Ventilator 100 07/05/20 00:00 Mechanical Ventilator Mechanical Ventilator 07/05/20 00:00 100 07/04/20 23:45 124 28 148/75 (99) 82 07/04/20 23:30 126 30 151/77 (101) 81 07/04/20 23:15 124 31 152/76 (101) 80 07/04/20 23:13 124 07/04/20 23:08 124 25 100 07/04/20 23:00 100.7 125 31 164/87 (112) 84 07/04/20 23:00 28 Mechanical Ventilator 100 07/04/20 23:00 28 152/76 Mechanical Ventilator 100 07/04/20 22:45 123 28 111/64 (80) 86 07/04/20 22:30 126 29 116/69 (85) 87 07/04/20 22:15 128 26 130/66 (87) 84 07/04/20 22:00 96.4 129 27 129/73 (91) 85 07/04/20 22:00 28 Mechanical Ventilator 100 07/04/20 22:00 28 130/66 Mechanical Ventilator 100 07/04/20 21:45 131 29 138/74 (95) 85 07/04/20 21:30 134 29 143/71 (95) 85 07/04/20 21:15 136 28 142/80 (100) 87 07/04/20 21:00 29 Mechanical Ventilator 100 07/04/20 21:00 29 142/80 Mechanical Ventilator 100 07/04/20 21:00 137 28 164/84 (110) 87 07/04/20 20:45 138 28 158/91 (113) 70 07/04/20 20:30 136 30 154/93 (113) 68 07/04/20 20:19 29 Mechanical Ventilator 100 07/04/20 20:18 135 126/72 07/04/20 20:15 135 27 126/72 (90) 86 07/04/20 20:00 100 07/04/20 20:00 Mechanical Ventilator Mechanical Ventilator 07/04/20 20:00 28 126/72 Mechanical Ventilator 100 07/04/20 20:00 101.7 133 26 125/72 (89) 83 07/04/20 19:45 133 31 129/72 (91) 78 07/04/20 19:31 133 29 100 07/04/20 19:30 133 30 118/71 (87) 83 07/04/20 19:20 133 07/04/20 19:15 133 28 126/66 (86) 83 07/04/20 19:00 28 Mechanical Ventilator 100 07/04/20 19:00 28 126/66 Mechanical Ventilator 100 07/04/20 19:00 132 26 132/76 (94) 83 07/04/20 18:00 26 Mechanical Ventilator 100 07/04/20 18:00 26 126/66 Mechanical Ventilator 100 07/04/20 18:00 136 26 130/69 (89) 82 07/04/20 17:00 25 Mechanical Ventilator 100 07/04/20 17:00 26 126/66 Mechanical Ventilator 100 07/04/20 17:00 138 26 141/74 (96) 81 07/04/20 16:00 22 Mechanical Ventilator 100 07/04/20 16:00 26 128/66 Mechanical Ventilator 100 07/04/20 16:00 Mechanical Ventilator Mechanical Ventilator 07/04/20 16:00 99.8 134 28 133/69 (90) 53 07/04/20 16:00 100 07/04/20 16:00 137 07/04/20 15:30 129 26 133/64 (87) 63 07/04/20 15:28 100 29 100 07/04/20 15:00 26 Mechanical Ventilator 100 07/04/20 15:00 26 119/72 Mechanical Ventilator 100 07/04/20 15:00 128 27 119/72 (88) 67 07/04/20 14:30 128 28 140/71 (94) 53 07/04/20 14:00 28 Mechanical Ventilator 100 07/04/20 14:00 28 152/69 Mechanical Ventilator 100 07/04/20 14:00 128 28 152/69 (96) 56 07/04/20 13:30 125 31 160/75 (103) 50 07/04/20 13:00 30 Mechanical Ventilator 100 07/04/20 13:00 30 145/72 Mechanical Ventilator 100 07/04/20 13:00 118 31 145/72 (96) 42 07/04/20 12:30 111 25 111/57 (75) 88 07/04/20 12:00 110 07/04/20 12:00 99.7 111 24 104/56 (72) 89 07/04/20 12:00 25 Mechanical Ventilator 100 07/04/20 12:00 22 121/64 Mechanical Ventilator 100 07/04/20 12:00 Mechanical Ventilator Mechanical Ventilator 07/04/20 12:00 114 28 121/64 (83) 78 07/04/20 12:00 100 07/04/20 11:38 110 27 100 07/04/20 11:00 112 24 111/57 (75) 89 07/04/20 11:00 19 Mechanical Ventilator 100 07/04/20 11:00 24 111/57 Mechanical Ventilator 100 07/04/20 10:06 105 148/69 07/04/20 10:00 110 24 117/58 (77) 86 07/04/20 10:00 22 Non-Rebreather 100 07/04/20 10:00 19 117/58 Mechanical Ventilator 100 07/04/20 09:36 21 101/58 100 07/04/20 09:30 104 22 148/69 (95) 84 07/04/20 09:00 19 Mechanical Ventilator 100 07/04/20 09:00 19 113/58 Mechanical Ventilator 100 07/04/20 09:00 108 23 113/58 (76) 84 07/04/20 08:30 116 25 127/76 (93) 90 07/04/20 08:00 96.0 112 23 113/62 (79) 92 07/04/20 08:00 110 07/04/20 08:00 24 Mechanical Ventilator 100 07/04/20 08:00 24 113/62 Mechanical Ventilator 100 07/04/20 08:00 100 07/04/20 08:00 Mechanical Ventilator Mechanical Ventilator Intake and Output 07/04/20 07/05/20 19:00 07:00 Intake Total 1796.0 ml 1717.5 ml Output Total 1985 ml 496 ml Balance -189.0 ml 1221.5 ml Intake Free Water 350 ml 400 ml IV Total 786.0 ml 712.5 ml Tube Feeding 660 ml 605 ml Output Urine Total 1865 ml 400 ml Chest Tube Drainage Total 120 ml 96 ml General Appearance: no acute distress HEENT: atraumatic Respiratory: crackles/rales Cardiovascular: normal rate Abdomen: soft, non tender Laboratory Tests 07/04/20 13:25: Arterial Blood pH 7.378, Arterial Blood Partial Pressure CO2 70.7*H, Arterial Blood Partial Pressure O2 29.2*L, Arterial Blood HCO3 40.7*H, Arterial Blood Oxygen Saturation 54.7*L, Arterial Blood Base Excess 12.9*H, Amrit Test Positive Current Medications Medications (Trade) Dose Ordered Sig/Maya Route PRN Reason Start Time Stop Time Status Last Admin Dose Admin Acetaminophen (Tylenol) 500 mg Q4H PRN ORAL Mild Pain (Pain Scale 1-3) 06/18/20 00:15 07/18/20 00:14 06/24/20 17:51 Acetaminophen (Tylenol) 500 mg Q4H PRN ORAL Temp >100.5 06/18/20 00:15 07/18/20 00:14 06/29/20 20:01 Carvedilol (Coreg) 6.25 mg EVERY 12 HOURS ORAL 06/22/20 21:00 07/22/20 20:59 07/04/20 20:18 Cefepime HCl 1 gm/ Dextrose 55 ml @ 110 mls/hr DAILY IVPB 07/04/20 09:00 07/08/20 12:00 07/04/20 09:34 Chlorhexidine Gluconate (Sissy-Hex 2%) 1 applic DAILY@2000 TOPIC 06/28/20 20:00 09/26/20 19:59 07/04/20 20:18 Dextrose (Dextrose 50%) 25 ml Q30M PRN IV Hypoglycemia 06/18/20 14:15 09/16/20 14:14 Dextrose (Dextrose 50%) 50 ml Q30M PRN IV Hypoglycemia 06/18/20 14:15 09/16/20 14:14 Docusate Sodium (Colace) 100 mg EVERY 8 HOURS NG 07/02/20 14:00 07/28/20 12:59 07/05/20 05:34 Fentanyl Citrate 250 ml @ 1 mls/hr Q24H IV 07/03/20 20:30 07/05/20 20:29 07/04/20 09:36 Furosemide (Lasix) 40 mg DAILY IV 06/28/20 17:45 07/28/20 16:59 07/04/20 09:33 Haloperidol Lactate (Haldol) 10 mg Q6H PRN IM Agitation 06/23/20 11:30 08/07/20 11:29 06/23/20 11:34 Insulin Aspart (NovoLOG) while NPO Q6HR SUBQ 06/18/20 18:00 09/16/20 17:59 07/05/20 00:30 Midazolam HCl 100 ml @ 0 mls/hr Q24H PRN IV To Patient Comfort 07/04/20 03:00 07/06/20 02:59 07/04/20 20:19 Pantoprazole (Protonix) 40 mg EVERY 12 HOURS IVP 06/18/20 21:00 07/18/20 20:59 07/04/20 20:18 Sodium Chloride 1,000 ml @ 50 mls/hr Q20H IV 06/26/20 08:00 07/26/20 07:59 07/04/20 16:19 Vitamin D (Vitamin D) 2,000 unit DAILY GT 06/29/20 10:30 07/29/20 10:29 07/04/20 09:32 Assessment/Plan Assessment/Plan 1. COVID-19 pneumonia -Intubated, on 100% FiO2. PEEP 5-10. -SaO2 90% -On Decadron, s/p remdesivir 2. Leukocytosis -Resolved 3. Elevated D-dimer -On Lovenox 40 subcu QD for DVT prophylaxis 4. Renal insufficiency -Improved 5. Anemia of chronic disease -Hematology oncology following 6. Sepsis -Status post antibiotics, fluid resuscitation 7. Pneumothorax 06/22/20 - b/l subcutaneous emphysema, pneumomediastinum, probable small left pneumothorax & ? trace right pneumothorax. -Pleur-ev[place] in place - placed CT by surgery (bilateral) - Will attempt wean when FiO2 decreases - CXR shows R PTX; will advise CT surgery to adjust R CT Charlie Sewell MD Jul 05, 2020 07:59
--- NOTE | 2020-07-05 08:15 | NUR ---
RD ASSESSMENT & RECOMMENDATIONS SEE CARE ACTIVITY FOR COMPLETE ASSESSMENT DAILY ESTIMATED NEEDS: Needs based on Critical care 62.7kg 22-28 kcals/kg [id number] total kcals 1.2-2 g protein/kg 75-125 g total protein 25-30 mL/kg 9040-0055 total fluid mLs NUTRITION DIAGNOSIS: Altered nutrition related lab values r/t clinical status as evidenced by elev BG checks (POC 226 230 128-> now improved), A1C 7.1, elevated Na(153-> 146), elev BUN(34-> 23), elev Mg(3.1). CURRENT TF:Now Glucerna 1.2 goal of 55ml/hr, running @35ml/hr ENTERAL NUTRITION RECOMMENDATIONS: Glucerna 1.2 goal of 55ml/hr x24 hrs to provide 1320ml, 1584 kcal, 79g pro, 1063ml free H2O - Maintain Glucerna 1.2 @goal as tolerated. - Flush per MD/ HOB over 30 degrees - Trophic feeds if on pressor support to maintain gut integrity. ADDITIONAL RECOMMENDATIONS: 1) Now Intubated-->>Rec OGT/ NGT feeds 2) Maintain D5 while NPO 3) Calibrated bed scale wts 4) Lytes low, replete as able 5) Off decadron, BG improved/ 6) Feed w/ hemodynamic stability- no pressors at this time
--- NOTE | 2020-07-05 08:25 | Diagnostic Imaging Report ---
EXAM: XR Chest, 1 View CLINICAL HISTORY: F/U TECHNIQUE: Frontal view of the chest. COMPARISON: Chest x-ray dated 07/04/20 FINDINGS: Lungs: No significant change in diffuse bilateral interstitial and airspace opacities. Pleural space: Persistent right apical pneumothorax, approximately 15% in volume. No definite pneumothorax identified on the left. Heart: Cardiac silhouette is exaggerated by portable AP exam technique. Mediastinum: Unremarkable. Bones/joints: Mild degenerative changes about the visualized spine. Tubes, lines and devices: Stable positioning of the left-sided chest tube. Right-sided chest tube tip appears more superiorly positioned compared to the prior exam. Endotracheal tube tip 3.6 cm above the melyssa. NG tube tip in the distal stomach/pylorus region. IMPRESSION: 1. Stable positioning of the left-sided chest tube. Right-sided chest tube tip appears more superiorly positioned compared to the prior exam. 2. Persistent right apical pneumothorax, approximately 15% in volume. No definite pneumothorax identified on the left. 3. No significant change in diffuse bilateral interstitial and airspace opacities.
[2020-07-05] MEDS: Pantoprazole Inj IVP SCH ×2 (08:48→20:30)
[2020-07-05] MEDS: Vitamin D 1000 units Tab GT SCH (08:48)
[2020-07-05] MEDS: Cefepime HCl 1 GM in D5W 55 ML IVPB SCH (08:49)
[2020-07-05] MEDS: Carvedilol 6.25mg Tab ORAL SCH ×2 (08:50→21:00)
--- NOTE | 2020-07-05 09:48 | Hematology/Onc Progress Note ---
Assessment/Plan Assessment/Plan Assessment and recs # Leukocytosis with Pneumonia due to COVID-19 virus -> wbc trend 15-->11-->10->17-->18->11->21->9 --> ABX as per id ctx-->off --> imaging does show pna --> anticoag recommended --> on remdesivir # Anemia of chronic disease --> hgb 12->10-->9-->11-->10.8->10-->9.6 -> transfuse prn --> r/o hemolysis # Elevated ddimer due to covid --> duplex legs -> LOVENOX sq # Thrombocytopenia due to likely plt destruction, Covid19++ with Hypoxia -> steriods, abx per id --> plt 117-->121-->124->77-->90 --> smear is noted # Renal insufficiency -> per renal care # Sepsis due to above --> abx, fluid resuscitation # Dvt ppx lovenox sq Appreciate consultation and mehran RN Subjective Allergies: Coded Allergies: No Known Allergies (Unverified , 06/17/20) All Systems: reviewed and negative except above Subjective 06/19 sleeping, comfortable, on bipap, meds have been reviewed 06/21 on bipap, labs have been reviewed, no major events 06/22 bipap labs reviewed, meds noted, no bleeding 06/23 bipap labs noted, no bleeding, meds reviewed, mehran rn 06/24 on vent, labs reviewed, meds reviewed 06/25 on vent, with ctx as abx, labs noted, no bleeding 06/26 vent, with ogt, with helms, labs noted, no bleeding plts lower 06/28 labs are pending, on vent, helms intract, no new changes 06/29 icu, on vent, hgb 11, plt 124, meds noted, on ctx 06/30 icu, edematous, is on vent, labs reviewed, abx 07/01 icu, on vent, labs noted, no bleeding, plt 77, labs ordered 07/02 icu, nv, meds noted, no bleeding, plt 91, hgb 9 07/03 icu, nv, meds noted, right chest tube with output, hgb 10 07/05 icu, nv, meds reviewed, labs noted, b/l chest tubes in place Objective Objective Current Medications Medications (Trade) Dose Ordered Sig/Maya Route PRN Reason Start Time Stop Time Status Last Admin Dose Admin Acetaminophen (Tylenol) 500 mg Q4H PRN ORAL Mild Pain (Pain Scale 1-3) 06/18/20 00:15 07/18/20 00:14 06/24/20 17:51 Acetaminophen (Tylenol) 500 mg Q4H PRN ORAL Temp >100.5 06/18/20 00:15 07/18/20 00:14 06/29/20 20:01 Carvedilol (Coreg) 6.25 mg EVERY 12 HOURS ORAL 06/22/20 21:00 07/22/20 20:59 07/04/20 20:18 Cefepime HCl 1 gm/ Dextrose 55 ml @ 110 mls/hr DAILY IVPB 07/04/20 09:00 07/08/20 12:00 07/05/20 08:49 Chlorhexidine Gluconate (Sissy-Hex 2%) 1 applic DAILY@2000 TOPIC 06/28/20 20:00 09/26/20 19:59 07/04/20 20:18 Dextrose (Dextrose 50%) 25 ml Q30M PRN IV Hypoglycemia 06/18/20 14:15 09/16/20 14:14 Dextrose (Dextrose 50%) 50 ml Q30M PRN IV Hypoglycemia 06/18/20 14:15 09/16/20 14:14 Docusate Sodium (Colace) 100 mg EVERY 8 HOURS NG 07/02/20 14:00 07/28/20 12:59 07/05/20 05:34 Fentanyl Citrate 250 ml @ 1 mls/hr Q24H IV 07/03/20 20:30 07/05/20 20:29 07/04/20 09:36 Furosemide (Lasix) 40 mg DAILY IV 06/28/20 17:45 07/28/20 16:59 07/05/20 08:48 Haloperidol Lactate (Haldol) 10 mg Q6H PRN IM Agitation 06/23/20 11:30 08/07/20 11:29 06/23/20 11:34 Insulin Aspart (NovoLOG) while NPO Q6HR SUBQ 06/18/20 18:00 09/16/20 17:59 07/05/20 00:30 Midazolam HCl 100 ml @ 0 mls/hr Q24H PRN IV To Patient Comfort 07/04/20 03:00 07/06/20 02:59 07/04/20 20:19 Pantoprazole (Protonix) 40 mg EVERY 12 HOURS IVP 06/18/20 21:00 07/18/20 20:59 07/05/20 08:48 Sodium Chloride 1,000 ml @ 50 mls/hr Q20H IV 06/26/20 08:00 07/26/20 07:59 07/04/20 16:19 Vitamin D (Vitamin D) 2,000 unit DAILY GT 06/29/20 10:30 07/29/20 10:29 07/05/20 08:48 Last 24 Hour Vital Signs Date Time Temp Pulse Resp B/P (MAP) Pulse Ox O2 Delivery O2 Flow Rate FiO2 07/05/20 09:30 102 29 127/65 (85) 80 07/05/20 09:00 102 28 116/60 (78) 83 07/05/20 08:50 103 113/59 07/05/20 08:30 105 29 104/51 (68) 84 07/05/20 08:00 100 07/05/20 08:00 105 07/05/20 08:00 98.7 103 26 108/52 (70) 85 07/05/20 07:39 104 27 100 07/05/20 07:30 102 27 102/53 (69) 87 07/05/20 07:00 102 27 120/59 (79) 86 07/05/20 06:30 105 28 128/58 (81) 86 07/05/20 06:15 108 28 118/59 (78) 84 07/05/20 06:00 28 Mechanical Ventilator 100 07/05/20 06:00 28 118/59 Mechanical Ventilator 100 07/05/20 06:00 107 27 105/58 (74) 85 07/05/20 05:45 107 28 115/59 (77) 85 07/05/20 05:30 99.8 106 27 95/49 (64) 86 07/05/20 05:15 106 25 96/48 (64) 86 07/05/20 05:00 107 25 109/57 (74) 85 07/05/20 05:00 27 Mechanical Ventilator 100 07/05/20 05:00 27 135/71 Mechanical Ventilator 100 07/05/20 04:45 108 27 130/65 (86) 85 07/05/20 04:30 108 27 119/60 (79) 84 07/05/20 04:15 109 27 135/71 (92) 83 07/05/20 04:00 Mechanical Ventilator Mechanical Ventilator 07/05/20 04:00 96.3 111 27 117/52 (73) 83 07/05/20 04:00 26 Mechanical Ventilator 100 07/05/20 04:00 26 120/60 Mechanical Ventilator 100 07/05/20 04:00 100 07/05/20 03:45 109 07/05/20 03:45 109 26 104/58 (73) 85 07/05/20 03:30 109 26 105/57 (73) 86 07/05/20 03:15 109 25 120/60 (80) 87 07/05/20 03:09 108 27 100 07/05/20 03:00 28 Mechanical Ventilator 100 07/05/20 03:00 28 123/64 Mechanical Ventilator 100 07/05/20 03:00 112 27 123/64 (83) 87 07/05/20 02:45 113 25 129/62 (84) 87 07/05/20 02:30 115 26 143/66 (91) 84 07/05/20 02:15 116 27 140/73 (95) 83 07/05/20 02:00 115 27 134/72 (92) 85 07/05/20 02:00 28 Mechanical Ventilator 100 07/05/20 02:00 28 129/62 Mechanical Ventilator 100 07/05/20 01:45 100.4 114 27 114/60 (78) 85 07/05/20 01:30 114 28 112/59 (76) 85 07/05/20 01:15 115 26 118/54 (75) 86 07/05/20 01:00 115 26 112/56 (74) 87 07/05/20 01:00 27 Mechanical Ventilator 100 07/05/20 01:00 27 118/54 Mechanical Ventilator 100 07/05/20 00:45 117 24 119/64 (82) 87 07/05/20 00:30 119 28 122/66 (84) 87 07/05/20 00:15 96.0 121 26 121/61 (81) 87 07/05/20 00:00 124 27 128/69 (88) 86 07/05/20 00:00 27 Mechanical Ventilator 100 07/05/20 00:00 27 121/61 Mechanical Ventilator 100 07/05/20 00:00 Mechanical Ventilator Mechanical Ventilator 07/05/20 00:00 100 07/04/20 23:45 124 28 148/75 (99) 82 07/04/20 23:30 126 30 151/77 (101) 81 07/04/20 23:15 124 31 152/76 (101) 80 07/04/20 23:13 124 07/04/20 23:08 124 25 100 07/04/20 23:00 100.7 125 31 164/87 (112) 84 07/04/20 23:00 28 Mechanical Ventilator 100 07/04/20 23:00 28 152/76 Mechanical Ventilator 100 07/04/20 22:45 123 28 111/64 (80) 86 07/04/20 22:30 126 29 116/69 (85) 87 07/04/20 22:15 128 26 130/66 (87) 84 07/04/20 22:00 96.4 129 27 129/73 (91) 85 07/04/20 22:00 28 Mechanical Ventilator 100 07/04/20 22:00 28 130/66 Mechanical Ventilator 100 07/04/20 21:45 131 29 138/74 (95) 85 07/04/20 21:30 134 29 143/71 (95) 85 07/04/20 21:15 136 28 142/80 (100) 87 07/04/20 21:00 29 Mechanical Ventilator 100 07/04/20 21:00 29 142/80 Mechanical Ventilator 100 07/04/20 21:00 137 28 164/84 (110) 87 07/04/20 20:45 138 28 158/91 (113) 70 07/04/20 20:30 136 30 154/93 (113) 68 07/04/20 20:19 29 Mechanical Ventilator 100 07/04/20 20:18 135 126/72 07/04/20 20:15 135 27 126/72 (90) 86 07/04/20 20:00 100 07/04/20 20:00 Mechanical Ventilator Mechanical Ventilator 07/04/20 20:00 28 126/72 Mechanical Ventilator 100 07/04/20 20:00 101.7 133 26 125/72 (89) 83 07/04/20 19:45 133 31 129/72 (91) 78 07/04/20 19:31 133 29 100 07/04/20 19:30 133 30 118/71 (87) 83 07/04/20 19:20 133 07/04/20 19:15 133 28 126/66 (86) 83 07/04/20 19:00 28 Mechanical Ventilator 100 07/04/20 19:00 28 126/66 Mechanical Ventilator 100 07/04/20 19:00 132 26 132/76 (94) 83 07/04/20 18:00 26 Mechanical Ventilator 100 07/04/20 18:00 26 126/66 Mechanical Ventilator 100 07/04/20 18:00 136 26 130/69 (89) 82 07/04/20 17:00 25 Mechanical Ventilator 100 07/04/20 17:00 26 126/66 Mechanical Ventilator 100 07/04/20 17:00 138 26 141/74 (96) 81 07/04/20 16:00 22 Mechanical Ventilator 100 07/04/20 16:00 26 128/66 Mechanical Ventilator 100 07/04/20 16:00 Mechanical Ventilator Mechanical Ventilator 07/04/20 16:00 99.8 134 28 133/69 (90) 53 07/04/20 16:00 100 07/04/20 16:00 137 07/04/20 15:30 129 26 133/64 (87) 63 07/04/20 15:28 100 29 100 07/04/20 15:00 26 Mechanical Ventilator 100 07/04/20 15:00 26 119/72 Mechanical Ventilator 100 07/04/20 15:00 128 27 119/72 (88) 67 07/04/20 14:30 128 28 140/71 (94) 53 07/04/20 14:00 28 Mechanical Ventilator 100 07/04/20 14:00 28 152/69 Mechanical Ventilator 100 07/04/20 14:00 128 28 152/69 (96) 56 07/04/20 13:30 125 31 160/75 (103) 50 07/04/20 13:00 30 Mechanical Ventilator 100 07/04/20 13:00 30 145/72 Mechanical Ventilator 100 07/04/20 13:00 118 31 145/72 (96) 42 07/04/20 12:30 111 25 111/57 (75) 88 07/04/20 12:00 110 07/04/20 12:00 99.7 111 24 104/56 (72) 89 07/04/20 12:00 25 Mechanical Ventilator 100 07/04/20 12:00 22 121/64 Mechanical Ventilator 100 07/04/20 12:00 Mechanical Ventilator Mechanical Ventilator 07/04/20 12:00 114 28 121/64 (83) 78 07/04/20 12:00 100 07/04/20 11:38 110 27 100 07/04/20 11:00 112 24 111/57 (75) 89 07/04/20 11:00 19 Mechanical Ventilator 100 07/04/20 11:00 24 111/57 Mechanical Ventilator 100 07/04/20 10:06 105 148/69 07/04/20 10:00 110 24 117/58 (77) 86 07/04/20 10:00 22 Non-Rebreather 100 07/04/20 10:00 19 117/58 Mechanical Ventilator 100 07/04/20 09:36 21 101/58 100 07/04/20 09:30 104 22 148/69 (95) 84 07/04/20 09:00 19 Mechanical Ventilator 100 07/04/20 09:00 19 113/58 Mechanical Ventilator 100 07/04/20 09:00 108 23 113/58 (76) 84 07/04/20 08:30 116 25 127/76 (93) 90 07/04/20 08:00 96.0 112 23 113/62 (79) 92 07/04/20 08:00 110 07/04/20 08:00 24 Mechanical Ventilator 100 07/04/20 08:00 24 113/62 Mechanical Ventilator 100 07/04/20 08:00 100 07/04/20 08:00 Mechanical Ventilator Mechanical Ventilator 07/04/20 07:38 109 20 100 07/04/20 07:30 114 23 129/70 (89) 90 07/04/20 07:00 116 22 128/71 (90) 92 07/04/20 07:00 22 Mechanical Ventilator 100 07/04/20 07:00 22 128/71 Mechanical Ventilator 100 07/04/20 06:45 119 22 149/75 (99) 82 07/04/20 06:31 27 Mechanical Ventilator 100 07/04/20 06:30 116 25 151/82 (105) 79 07/04/20 06:15 119 26 150/71 (97) 78 07/04/20 06:00 96.7 118 27 160/79 (106) 76 07/04/20 06:00 30 102/59 Mechanical Ventilator 100 07/04/20 05:45 118 26 145/78 (100) 80 07/04/20 05:30 117 26 165/70 (101) 83 07/04/20 05:15 120 28 131/74 (93) 89 07/04/20 05:00 30 115/61 Mechanical Ventilator 100 07/04/20 05:00 123 21 117/64 (81) 93 07/04/20 04:45 123 24 127/62 (83) 93 07/04/20 04:30 124 22 129/74 (92) 85 07/04/20 04:15 119 26 104/53 (70) 77 07/04/20 04:00 100.0 121 26 108/52 (70) 78 07/04/20 04:00 Mechanical Ventilator Mechanical Ventilator 07/04/20 04:00 30 110/62 Mechanical Ventilator 100 07/04/20 04:00 30 Mechanical Ventilator 100 07/04/20 04:00 100 07/04/20 03:51 115 26 100 07/04/20 03:45 119 26 95/57 (70) 75 07/04/20 03:30 120 26 94/62 (73) 72 07/04/20 03:15 118 26 99/52 (68) 71 07/04/20 03:00 116 26 99/57 (71) 72 07/04/20 03:00 29 114/62 Mechanical Ventilator 100 07/04/20 03:00 29 Mechanical Ventilator 100 07/04/20 02:45 115 27 109/55 (73) 73 07/04/20 02:30 112 26 128/65 (86) 73 07/04/20 02:15 111 26 109/68 (82) 78 07/04/20 02:00 110 24 117/61 (79) 85 07/04/20 02:00 24 117/61 Mechanical Ventilator 100 07/04/20 02:00 24 Mechanical Ventilator 100 07/04/20 01:45 111 27 105/47 (66) 93 07/04/20 01:44 112 07/04/20 01:30 113 26 97/55 (69) 91 07/04/20 01:15 115 25 94/59 (71) 81 07/04/20 01:00 116 26 96/49 (65) 88 07/04/20 01:00 28 96/49 Mechanical Ventilator 100 07/04/20 01:00 28 Mechanical Ventilator 100 07/04/20 00:45 112 19 91/53 (66) 85 07/04/20 00:30 111 17 101/51 (68) 81 07/04/20 00:15 109 28 123/63 (83) 90 07/04/20 00:00 Mechanical Ventilator Mechanical Ventilator 07/04/20 00:00 98.0 108 31 126/61 (82) 92 07/04/20 00:00 28 126/61 Mechanical Ventilator 100 07/04/20 00:00 28 Mechanical Ventilator 100 07/03/20 23:45 108 32 131/64 (86) 90 07/03/20 23:30 109 21 127/62 (83) 94 07/03/20 23:18 107 18 100 07/03/20 23:15 108 19 138/61 (86) 95 07/03/20 23:00 107 18 131/67 (88) 94 07/03/20 23:00 30 131/67 Mechanical Ventilator 100 07/03/20 23:00 31 Mechanical Ventilator 100 07/03/20 22:45 107 22 125/71 (89) 93 07/03/20 22:30 107 20 128/70 (89) 94 07/03/20 22:15 106 18 115/63 (80) 95 07/03/20 22:00 95.3 105 18 123/59 (80) 95 07/03/20 22:00 18 148/80 Mechanical Ventilator 100 07/03/20 22:00 18 Mechanical Ventilator 100 07/03/20 21:45 106 16 107/59 (75) 96 07/03/20 21:30 105 16 119/58 (78) 94 07/03/20 21:15 105 17 115/60 (78) 92 07/03/20 21:00 112 25 148/80 (102) 95 07/03/20 21:00 16 148/80 Mechanical Ventilator 100 07/03/20 21:00 16 Mechanical Ventilator 100 07/03/20 21:00 105 123/59 07/03/20 20:45 101 30 150/86 (107) 93 07/03/20 20:30 100 31 158/70 (99) 92 07/03/20 20:30 31 158/79 Mechanical Ventilator 100 07/03/20 20:15 95 31 157/83 (107) 90 07/03/20 20:00 100 07/03/20 20:00 95 29 158/79 (105) 92 07/03/20 20:00 30 158/79 Mechanical Ventilator 100 07/03/20 20:00 30 Mechanical Ventilator 100 07/03/20 20:00 Mechanical Ventilator Mechanical Ventilator 07/03/20 19:45 92 31 168/75 (106) 93 07/03/20 19:33 98 07/03/20 19:30 96 31 169/98 (121) 94 07/03/20 19:15 98 34 166/74 (104) 94 07/03/20 19:08 104 25 100 07/03/20 19:00 32 169/98 Mechanical Ventilator 100 07/03/20 19:00 31 Mechanical Ventilator 100 07/03/20 19:00 31 169/69 Mechanical Ventilator 100 07/03/20 19:00 97.3 115 25 162/70 (100) 91 07/03/20 18:00 108 30 180/78 (112) 85 07/03/20 17:00 104 33 161/81 (107) 84 07/03/20 16:15 113 31 120/59 (79) 95 07/03/20 16:00 97 07/03/20 16:00 110 31 112/52 (72) 95 07/03/20 16:00 113 07/03/20 16:00 Mechanical Ventilator Mechanical Ventilator 07/03/20 16:00 100 07/03/20 15:45 110 30 111/57 (75) 95 07/03/20 15:42 112 30 100 07/03/20 15:30 113 30 120/59 (79) 96 07/03/20 15:30 110 30 108/53 (71) 96 07/03/20 15:15 109 30 114/53 (73) 96 07/03/20 15:00 109 30 96 07/03/20 15:00 109 30 110/61 (77) 96 07/03/20 14:30 106 29 107/61 (76) 97 07/03/20 14:15 105 29 100/54 (69) 98 07/03/20 14:00 105 28 104/57 (73) 99 07/03/20 13:45 106 28 103/55 (71) 97 2/12/21 13:30 104 29 102/57 (72) 98 07/03/20 13:15 106 29 100/51 (67) 98 07/03/20 13:00 103 28 104/54 (71) 96 07/03/20 13:00 98.9 105 27 102/57 (72) 100 07/03/20 12:45 103 27 93/54 (67) 97 07/03/20 12:38 99.1 07/03/20 12:30 105 29 107/52 (70) 96 07/03/20 12:15 103 28 100/58 (72) 95 07/03/20 12:08 26 Mechanical Ventilator 100 07/03/20 12:00 103 28 116/58 (77) 94 07/03/20 12:00 Mechanical Ventilator Mechanical Ventilator 07/03/20 12:00 100 07/03/20 12:00 103 28 116/58 (77) 94 07/03/20 12:00 97 07/03/20 11:45 102 26 119/56 (77) 97 07/03/20 11:30 103 25 143/69 (93) 98 07/03/20 11:30 103 25 143/69 (93) 98 07/03/20 11:25 102 25 100 07/03/20 11:15 102 25 137/60 (85) 96 07/03/20 11:15 102 25 137/60 (85) 96 07/03/20 11:00 101 26 126/69 (88) 95 07/03/20 11:00 101 26 126/69 (88) 95 07/03/20 10:51 99 28 94 Mechanical Ventilator 80 07/03/20 10:45 102 27 119/58 (78) 95 07/03/20 10:30 101 27 109/71 (84) 95 07/03/20 10:15 99 27 100/52 (68) 96 07/03/20 10:00 98 25 93/54 (67) 95 07/03/20 10:00 98 25 93/54 (67) 95 Intake and Output 07/04/20 07/05/20 19:00 07:00 Intake Total 1796.0 ml 1717.5 ml Output Total 1985 ml 496 ml Balance -189.0 ml 1221.5 ml Intake Free Water 350 ml 400 ml IV Total 786.0 ml 712.5 ml Tube Feeding 660 ml 605 ml Output Urine Total 1865 ml 400 ml Chest Tube Drainage Total 120 ml 96 ml Labs Test 07/03/20 03:40 07/04/20 00:55 07/04/20 01:44 07/04/20 03:40 White Blood Count 8.4 K/UL (4.8-10.8) 9.6 K/UL (4.8-10.8) Red Blood Count 3.29 M/UL (4.20-5.40) 3.20 M/UL (4.20-5.40) Hemoglobin 10.0 G/DL (12.0-16.0) 9.6 G/DL (12.0-16.0) Hematocrit 31.6 % (37.0-47.0) 30.9 % (37.0-47.0) Mean Corpuscular Volume 96 FL (80-99) 96 FL (80-99) Mean Corpuscular Hemoglobin 30.5 PG (27.0-31.0) 30.1 PG (27.0-31.0) Mean Corpuscular Hemoglobin Concent 31.6 G/DL (32.0-36.0) 31.3 G/DL (32.0-36.0) Red Cell Distribution Width 15.1 % (11.6-14.8) 15.0 % (11.6-14.8) Platelet Count 90 K/UL (150-450) 90 K/UL (150-450) Mean Platelet Volume 9.5 FL (6.5-10.1) 8.6 FL (6.5-10.1) Neutrophils (%) (Auto) % (45.0-75.0) % (45.0-75.0) Lymphocytes (%) (Auto) % (20.0-45.0) % (20.0-45.0) Monocytes (%) (Auto) % (1.0-10.0) % (1.0-10.0) Eosinophils (%) (Auto) % (0.0-3.0) % (0.0-3.0) Basophils (%) (Auto) % (0.0-2.0) % (0.0-2.0) Differential Total Cells Counted 100 100 Neutrophils % (Manual) 81 % (45-75) 82 % (45-75) Lymphocytes % (Manual) 11 % (20-45) 10 % (20-45) Monocytes % (Manual) 3 % (1-10) 3 % (1-10) Eosinophils % (Manual) 5 % (0-3) 4 % (0-3) Basophils % (Manual) 0 % (0-2) 0 % (0-2) Band Neutrophils 0 % (0-8) 1 % (0-8) Platelet Estimate Decreased Decreased Platelet Morphology Normal Normal Hypochromasia 1+ 1+ Anisocytosis 1+ 1+ Sodium Level 146 MMOL/L (136-145) 146 MMOL/L (136-145) Potassium Level 3.9 MMOL/L (3.5-5.1) 3.6 MMOL/L (3.5-5.1) Chloride Level 109 MMOL/L (98-107) 107 MMOL/L (98-107) Carbon Dioxide Level 36 MMOL/L (21-32) 36 MMOL/L (21-32) Anion Gap 1 mmol/L (5-15) 4 mmol/L (5-15) Blood Urea Nitrogen 21 mg/dL (7-18) 15 mg/dL (7-18) Creatinine 0.4 MG/DL (0.55-1.30) 0.4 MG/DL (0.55-1.30) Estimat Glomerular Filtration Rate > 60 mL/min (>60) > 60 mL/min (>60) Glucose Level 128 MG/DL (74-106) 149 MG/DL (74-106) Calcium Level 7.6 MG/DL (8.5-10.1) 7.4 MG/DL (8.5-10.1) Phosphorus Level 2.5 MG/DL (2.5-4.9) 2.3 MG/DL (2.5-4.9) Magnesium Level 2.0 MG/DL (1.8-2.4) 2.0 MG/DL (1.8-2.4) Total Bilirubin 0.6 MG/DL (0.2-1.0) 0.5 MG/DL (0.2-1.0) Direct Bilirubin < 0.1 MG/DL (0.0-0.3) Aspartate Amino Transf (AST/SGOT) 57 U/L (15-37) 55 U/L (15-37) Alanine Aminotransferase (ALT/SGPT) 48 U/L (12-78) 52 U/L (12-78) Alkaline Phosphatase 103 U/L (46-116) 136 U/L (46-116) Total Protein 5.4 G/DL (6.4-8.2) 5.4 G/DL (6.4-8.2) Albumin 1.2 G/DL (3.4-5.0) 1.1 G/DL (3.4-5.0) Arterial Blood pH 7.326 (7.350-7.450) 7.364 (7.350-7.450) Arterial Blood Partial Pressure CO2 78.7 mmHg (35.0-45.0) 65.3 mmHg (35.0-45.0) Arterial Blood Partial Pressure O2 32.8 mmHg (75.0-100.0) 58.2 mmHg (75.0-100.0) Arterial Blood HCO3 40.2 mmol/L (22.0-26.0) 36.4 mmol/L (22.0-26.0) Arterial Blood Oxygen Saturation 58.5 % (95-100) 86.9 % (95-100) Arterial Blood Base Excess 11.5 (-2-2) 9.2 (-2-2) Amrit Test Positive Positive Uric Acid 1.2 MG/DL (2.6-7.2) C-Reactive Protein, Quantitative 11.2 mg/dL (0.00-0.90) Pro-B-Type Natriuretic Peptide 271 pg/mL (0-125) Globulin 4.3 g/dL Albumin/Globulin Ratio 0.3 (1.0-2.7) Test 07/04/20 13:25 Arterial Blood pH 7.378 (7.350-7.450) Arterial Blood Partial Pressure CO2 70.7 mmHg (35.0-45.0) Arterial Blood Partial Pressure O2 29.2 mmHg (75.0-100.0) Arterial Blood HCO3 40.7 mmol/L (22.0-26.0) Arterial Blood Oxygen Saturation 54.7 % (95-100) Arterial Blood Base Excess 12.9 (-2-2) Amrit Test Positive Height (Feet): 5 Height (Inches): 2.00 Weight (Pounds): 138 Objective Physical Exam Vitals: reviewed, abnormal - Interpreted as low by me General: GCS 15 - Sometimes slightly confused, non-toxic, mild distress Head: normocephalic, moist mucus membranes Neck: supple Respiratory: no retraction, no accessory muscle use, respiratory distress - Minimal with tachypnea, crackles Cardiovascular: regular rate, rhythm, no edema Gastrointestinal: normal inspection, non tender, soft Genitourinary: no CVA tenderness Musculoskeletal: back normal Neurologic: alert, oriented x3, grossly normal Psychiatric: mood/affect normal - sometimes confused Skin: no rash, warm/dry Jj Swann MD Jul 05, 2020 09:48
[2020-07-05] MEDS: Versed 50mg/NS 100ml 100 ML IV PRN ×3 (10:04→22:06)
--- NOTE | 2020-07-05 11:05 | Surgery Progress Note ---
Surgery Progress Note Subjective Procedure Performed 1. right chest tube insertion 2. left chest tube insertion Additional Comments cxr noted tube in place pleuravac not functional fixed placed on suction pending repeat cxr Objective Last 24 Hour Vital Signs Date Time Temp Pulse Resp B/P (MAP) Pulse Ox O2 Delivery O2 Flow Rate FiO2 07/05/20 10:30 107 26 105/49 (67) 84 07/05/20 10:04 28 Mechanical Ventilator 100 07/05/20 10:00 104 28 117/59 (78) 81 07/05/20 10:00 29 Mechanical Ventilator 100 07/05/20 10:00 29 105/49 Mechanical Ventilator 100 07/05/20 09:30 102 29 127/65 (85) 80 07/05/20 09:00 102 28 116/60 (78) 83 07/05/20 09:00 29 Mechanical Ventilator 100 07/05/20 09:00 29 116/60 Mechanical Ventilator 100 07/05/20 08:50 103 113/59 07/05/20 08:30 105 29 104/51 (68) 84 07/05/20 08:00 100 07/05/20 08:00 105 07/05/20 08:00 26 Mechanical Ventilator 100 07/05/20 08:00 26 108/52 Mechanical Ventilator 100 07/05/20 08:00 98.7 103 26 108/52 (70) 85 07/05/20 07:39 104 27 100 07/05/20 07:30 102 27 102/53 (69) 87 07/05/20 07:00 27 Mechanical Ventilator 100 07/05/20 07:00 27 120/59 Mechanical Ventilator 100 07/05/20 07:00 102 27 120/59 (79) 86 07/05/20 06:30 105 28 128/58 (81) 86 07/05/20 06:15 108 28 118/59 (78) 84 07/05/20 06:00 28 Mechanical Ventilator 100 07/05/20 06:00 28 118/59 Mechanical Ventilator 100 07/05/20 06:00 107 27 105/58 (74) 85 07/05/20 05:45 107 28 115/59 (77) 85 07/05/20 05:30 99.8 106 27 95/49 (64) 86 07/05/20 05:15 106 25 96/48 (64) 86 07/05/20 05:00 107 25 109/57 (74) 85 07/05/20 05:00 27 Mechanical Ventilator 100 07/05/20 05:00 27 135/71 Mechanical Ventilator 100 07/05/20 04:45 108 27 130/65 (86) 85 07/05/20 04:30 108 27 119/60 (79) 84 07/05/20 04:15 109 27 135/71 (92) 83 07/05/20 04:00 Mechanical Ventilator Mechanical Ventilator 07/05/20 04:00 96.3 111 27 117/52 (73) 83 07/05/20 04:00 26 Mechanical Ventilator 100 07/05/20 04:00 26 120/60 Mechanical Ventilator 100 07/05/20 04:00 100 07/05/20 03:45 109 07/05/20 03:45 109 26 104/58 (73) 85 07/05/20 03:30 109 26 105/57 (73) 86 07/05/20 03:15 109 25 120/60 (80) 87 07/05/20 03:09 108 27 100 07/05/20 03:00 28 Mechanical Ventilator 100 07/05/20 03:00 28 123/64 Mechanical Ventilator 100 07/05/20 03:00 112 27 123/64 (83) 87 07/05/20 02:45 113 25 129/62 (84) 87 07/05/20 02:30 115 26 143/66 (91) 84 07/05/20 02:15 116 27 140/73 (95) 83 07/05/20 02:00 115 27 134/72 (92) 85 07/05/20 02:00 28 Mechanical Ventilator 100 07/05/20 02:00 28 129/62 Mechanical Ventilator 100 07/05/20 01:45 100.4 114 27 114/60 (78) 85 07/05/20 01:30 114 28 112/59 (76) 85 07/05/20 01:15 115 26 118/54 (75) 86 07/05/20 01:00 115 26 112/56 (74) 87 07/05/20 01:00 27 Mechanical Ventilator 100 07/05/20 01:00 27 118/54 Mechanical Ventilator 100 07/05/20 00:45 117 24 119/64 (82) 87 07/05/20 00:30 119 28 122/66 (84) 87 07/05/20 00:15 96.0 121 26 121/61 (81) 87 07/05/20 00:00 124 27 128/69 (88) 86 07/05/20 00:00 27 Mechanical Ventilator 100 07/05/20 00:00 27 121/61 Mechanical Ventilator 100 07/05/20 00:00 Mechanical Ventilator Mechanical Ventilator 07/05/20 00:00 100 07/04/20 23:45 124 28 148/75 (99) 82 07/04/20 23:30 126 30 151/77 (101) 81 07/04/20 23:15 124 31 152/76 (101) 80 07/04/20 23:13 124 07/04/20 23:08 124 25 100 07/04/20 23:00 100.7 125 31 164/87 (112) 84 07/04/20 23:00 28 Mechanical Ventilator 100 07/04/20 23:00 28 152/76 Mechanical Ventilator 100 07/04/20 22:45 123 28 111/64 (80) 86 07/04/20 22:30 126 29 116/69 (85) 87 07/04/20 22:15 128 26 130/66 (87) 84 07/04/20 22:00 96.4 129 27 129/73 (91) 85 07/04/20 22:00 28 Mechanical Ventilator 100 07/04/20 22:00 28 130/66 Mechanical Ventilator 100 07/04/20 21:45 131 29 138/74 (95) 85 07/04/20 21:30 134 29 143/71 (95) 85 07/04/20 21:15 136 28 142/80 (100) 87 07/04/20 21:00 29 Mechanical Ventilator 100 07/04/20 21:00 29 142/80 Mechanical Ventilator 100 07/04/20 21:00 137 28 164/84 (110) 87 07/04/20 20:45 138 28 158/91 (113) 70 07/04/20 20:30 136 30 154/93 (113) 68 07/04/20 20:19 29 Mechanical Ventilator 100 07/04/20 20:18 135 126/72 07/04/20 20:15 135 27 126/72 (90) 86 07/04/20 20:00 100 07/04/20 20:00 Mechanical Ventilator Mechanical Ventilator 07/04/20 20:00 28 126/72 Mechanical Ventilator 100 07/04/20 20:00 101.7 133 26 125/72 (89) 83 07/04/20 19:45 133 31 129/72 (91) 78 07/04/20 19:31 133 29 100 07/04/20 19:30 133 30 118/71 (87) 83 07/04/20 19:20 133 07/04/20 19:15 133 28 126/66 (86) 83 07/04/20 19:00 28 Mechanical Ventilator 100 07/04/20 19:00 28 126/66 Mechanical Ventilator 100 07/04/20 19:00 132 26 132/76 (94) 83 07/04/20 18:00 26 Mechanical Ventilator 100 07/04/20 18:00 26 126/66 Mechanical Ventilator 100 07/04/20 18:00 136 26 130/69 (89) 82 07/04/20 17:00 25 Mechanical Ventilator 100 07/04/20 17:00 26 126/66 Mechanical Ventilator 100 07/04/20 17:00 138 26 141/74 (96) 81 07/04/20 16:00 22 Mechanical Ventilator 100 07/04/20 16:00 26 128/66 Mechanical Ventilator 100 07/04/20 16:00 Mechanical Ventilator Mechanical Ventilator 07/04/20 16:00 99.8 134 28 133/69 (90) 53 07/04/20 16:00 100 07/04/20 16:00 137 07/04/20 15:30 129 26 133/64 (87) 63 07/04/20 15:28 100 29 100 07/04/20 15:00 26 Mechanical Ventilator 100 07/04/20 15:00 26 119/72 Mechanical Ventilator 100 07/04/20 15:00 128 27 119/72 (88) 67 07/04/20 14:30 128 28 140/71 (94) 53 07/04/20 14:00 28 Mechanical Ventilator 100 07/04/20 14:00 28 152/69 Mechanical Ventilator 100 07/04/20 14:00 128 28 152/69 (96) 56 07/04/20 13:30 125 31 160/75 (103) 50 07/04/20 13:00 30 Mechanical Ventilator 100 07/04/20 13:00 30 145/72 Mechanical Ventilator 100 07/04/20 13:00 118 31 145/72 (96) 42 07/04/20 12:30 111 25 111/57 (75) 88 07/04/20 12:00 110 07/04/20 12:00 99.7 111 24 104/56 (72) 89 07/04/20 12:00 25 Mechanical Ventilator 100 07/04/20 12:00 22 121/64 Mechanical Ventilator 100 07/04/20 12:00 Mechanical Ventilator Mechanical Ventilator 07/04/20 12:00 114 28 121/64 (83) 78 07/04/20 12:00 100 07/04/20 11:38 110 27 100 I&O Intake and Output 07/04/20 07/05/20 19:00 07:00 Intake Total 1796.0 ml 1783.0 ml Output Total 1985 ml 496 ml Balance -189.0 ml 1287.0 ml Intake Free Water 350 ml 400 ml IV Total 786.0 ml 778.0 ml Tube Feeding 660 ml 605 ml Output Urine Total 1865 ml 400 ml Chest Tube Drainage Total 120 ml 96 ml Dressing: saturated Cardiovascular: RSR Respiratory: decreased breath sounds Abdomen: soft, non-tender, present bowel sounds, non-distended Extremities: edema, no tenderness, no cyanosis Laboratory Tests Test 07/04/20 13:25 Arterial Blood pH 7.378 (7.350-7.450) Arterial Blood Partial Pressure CO2 70.7 mmHg (35.0-45.0) *H Arterial Blood Partial Pressure O2 29.2 mmHg (75.0-100.0) Arterial Blood HCO3 40.7 mmol/L (22.0-26.0) *H Arterial Blood Oxygen Saturation 54.7 % (95-100) *L Arterial Blood Base Excess 12.9 (-2-2) *H Amrit Test Positive Plan Problems: (1) Renal insufficiency (2) Elevated d-dimer (3) Dehydration (4) LEONARDO (acute kidney injury) (5) DMII (diabetes mellitus, type 2) (6) Hypoxia (7) Pneumonia due to COVID-19 virus (8) PNA (pneumonia) (9) Pneumothorax Assessment & Plan: Bilateral pneumothorax status post bilateral chest tubes. Still on significant vent support. leak performed. Continue weaning vent. Continue with chest tubes. Will monitor and manage chest tubes accordingly. Thank you for let me to participate in patient's care Continue bilateral chest tubes on suction the airleak is worse her peak pressures are high prognosis overall is guarded. Imaging reviewed Bilateral air leaks noted high pressures continue chest tube suction recurrent right ptx tube fixed imaging Elpidio Frazier Jul 05, 2020 11:04
--- NOTE | 2020-07-05 12:05 | Diagnostic Imaging Report ---
EXAM: XR Chest, 1 View CLINICAL HISTORY: LINE TECHNIQUE: Frontal view of the chest. COMPARISON: Chest x-rays dated 07/05/20 at 6:57 AM FINDINGS: Lungs: No significant change in patchy opacities and interstitial markings in bilateral lungs. Pleural space: Interval decrease in size of the tiny right apical pneumothorax, now less than 10% in volume. No definite left-sided pneumothorax identified. Heart: Unremarkable. No cardiomegaly. Mediastinum: Unremarkable. Bones/joints: Unremarkable. Tubes, lines and devices: Stable positioning of bilateral chest tubes. NG tube tip in the distal stomach. Endotracheal tube tip 3.3 cm above the melyssa. Right arm PICC with catheter tip in the SVC region. IMPRESSION: 1. Interval decrease in size of the tiny right apical pneumothorax, now less than 10% in volume. No definite left-sided pneumothorax identified. 2. Stable positioning of endotracheal tube, nasogastric tube, bilateral chest tubes, and right-sided PICC. 3. No significant change in patchy opacities and interstitial markings in bilateral lungs.
--- NOTE | 2020-07-05 14:05 | Nephrology Progress Note ---
Assessment/Plan Problem List: (1) LEONARDO (acute kidney injury) (2) Dehydration (3) DMII (diabetes mellitus, type 2) (4) Pneumonia due to COVID-19 virus (5) Hypoxia Assessment 70-year-old female presents with COVID-19 pneumonia and hypoxia On admission has BUN of 77 and creatinine of 1.6. Renal failure most likely prerenal and dehydration with possible underlying chronic kidney disease Patient has elevated inflammatory markers Hypoalbuminemia Electrolyte abnormalities Hyperglycemia Plan July 05: No CHEM panel drawn today. Status quo. Pulmonary status u nchanged. We will continue to monitor renal parameters and electrolytes. Continue per consultants. July 04: Status quo. On ventilator. Full code. Bilateral chest tube. Renal parameters stable. July 03: Patient remains full code. Intubated on ventilator. Has chest tube. Labs reviewed. Renal parameters stable. Continue per consultants. July 02: Remains intubated. Has a bilateral chest tube. He is full code. Labs reviewed. Abnormal electrolyte addressed. Continue per consultants. July 01: Remains intubated. Continues to have bilateral chest tube. Full code. Labs reviewed. Renal parameters stable. Low phosphorus addressed. Discussed with NORMAN Lyon. June 30: Full code. Intubated. Bilateral chest tube. As reviewed. Abn ormal electrolytes addressed. June 29: Full code. Intubated. Bilateral chest tube. Unstable pulmonary status. ABG ordered. Electrolyte imbalance addressed. Discussed with NORMAN Montalvo. June 28: Labs reviewed. Abnormal electrolytes addressed. Patient remains full code. Continue per consultants. June 27: No chemistry panel done today. Remains full code. Medication list reviewed. Continue per consultants. Will monitor electrolytes and renal panel in a.m. June 26: Status quo. Remains full code. Labs reviewed. Main IV changed to normal saline 50 cc an hour. Continue per consultants and pulmonary. June 25: Remains intubated. Has bilateral chest tube. Full code. Labs reviewed. Abnormal electrolytes addressed. Albumin bolus given. Continue to monitor renal parameters. Poor prognosis. June 24: Patient in ICU. Intubated. Has bilateral chest tube. Labs r eviewed. Renal parameters stable. Low phosphorus addressed. Continue per consultants. Full code. Poor prognosis. June 23: Patient in ICU. Intubated. Due for insertion of a chest tube. Has pneumothorax. Renal parameters are stable. Serum sodium rising. Will adjust IV fluid. Continue per consultants. Patient full code. Prognosis poor. June 22: Labs reviewed. Remains on BiPAP which is not changed to high flow oxygen due to pneumothorax found on chest x-ray. Serum sodium 155. Continues on D5W. Electrolytes within normal limits. Check 2D echocardiogram. Coreg for blood pressure and heart rate. June 21: Status quo. On BiPAP. Full code. Serum sodium 153. Continue D5W. Continue to monitor electrolytes. Continue per consultants. June 20: Patient full code. On BiPAP. Labs reviewed. Serum sodium rising. Will increase D5W to 75 cc an hour. Continue to monitor electrolytes. June 19: IV changed to D5W. Monitor blood sugar. Monitor electrolytes. Medication list reviewed. Patient is being treated for COVID-19 pneumonia. Patient is full code. Previously Pulmonary support IV antibiotics Slow hydration Avoid nephrotoxic Monitor renal parameters Per orders Subjective ROS Limited/Unobtainable: Yes Objective Objective Last 24 Hour Vital Signs Date Time Temp Pulse Resp B/P (MAP) Pulse Ox O2 Delivery O2 Flow Rate FiO2 07/05/20 13:00 100 26 113/59 (77) 89 07/05/20 12:30 98 27 115/61 (79) 88 07/05/20 12:00 99 07/05/20 12:00 98.5 101 29 101/52 (68) 88 07/05/20 12:00 Mechanical Ventilator Mechanical Ventilator 07/05/20 12:00 100 07/05/20 11:38 105 28 100 07/05/20 11:30 104 28 110/55 (73) 86 07/05/20 11:00 109 27 104/51 (68) 84 07/05/20 10:30 107 26 105/49 (67) 84 07/05/20 10:04 28 Mechanical Ventilator 100 07/05/20 10:00 104 28 117/59 (78) 81 07/05/20 10:00 29 Mechanical Ventilator 100 07/05/20 10:00 29 105/49 Mechanical Ventilator 100 07/05/20 09:30 102 29 127/65 (85) 80 07/05/20 09:00 102 28 116/60 (78) 83 07/05/20 09:00 29 Mechanical Ventilator 100 07/05/20 09:00 29 116/60 Mechanical Ventilator 100 07/05/20 08:50 103 113/59 07/05/20 08:30 105 29 104/51 (68) 84 07/05/20 08:00 100 07/05/20 08:00 105 07/05/20 08:00 26 Mechanical Ventilator 100 07/05/20 08:00 26 108/52 Mechanical Ventilator 100 07/05/20 08:00 Mechanical Ventilator Mechanical Ventilator 07/05/20 08:00 98.7 103 26 108/52 (70) 85 07/05/20 07:39 104 27 100 07/05/20 07:30 102 27 102/53 (69) 87 07/05/20 07:00 27 Mechanical Ventilator 100 07/05/20 07:00 27 120/59 Mechanical Ventilator 100 07/05/20 07:00 102 27 120/59 (79) 86 07/05/20 06:30 105 28 128/58 (81) 86 07/05/20 06:15 108 28 118/59 (78) 84 07/05/20 06:00 28 Mechanical Ventilator 100 07/05/20 06:00 28 118/59 Mechanical Ventilator 100 07/05/20 06:00 107 27 105/58 (74) 85 07/05/20 05:45 107 28 115/59 (77) 85 07/05/20 05:30 99.8 106 27 95/49 (64) 86 07/05/20 05:15 106 25 96/48 (64) 86 07/05/20 05:00 107 25 109/57 (74) 85 07/05/20 05:00 27 Mechanical Ventilator 100 07/05/20 05:00 27 135/71 Mechanical Ventilator 100 07/05/20 04:45 108 27 130/65 (86) 85 07/05/20 04:30 108 27 119/60 (79) 84 07/05/20 04:15 109 27 135/71 (92) 83 07/05/20 04:00 Mechanical Ventilator Mechanical Ventilator 07/05/20 04:00 96.3 111 27 117/52 (73) 83 07/05/20 04:00 26 Mechanical Ventilator 100 07/05/20 04:00 26 120/60 Mechanical Ventilator 100 07/05/20 04:00 100 07/05/20 03:45 109 07/05/20 03:45 109 26 104/58 (73) 85 07/05/20 03:30 109 26 105/57 (73) 86 07/05/20 03:15 109 25 120/60 (80) 87 07/05/20 03:09 108 27 100 07/05/20 03:00 28 Mechanical Ventilator 100 07/05/20 03:00 28 123/64 Mechanical Ventilator 100 07/05/20 03:00 112 27 123/64 (83) 87 07/05/20 02:45 113 25 129/62 (84) 87 07/05/20 02:30 115 26 143/66 (91) 84 07/05/20 02:15 116 27 140/73 (95) 83 07/05/20 02:00 115 27 134/72 (92) 85 07/05/20 02:00 28 Mechanical Ventilator 100 07/05/20 02:00 28 129/62 Mechanical Ventilator 100 07/05/20 01:45 100.4 114 27 114/60 (78) 85 07/05/20 01:30 114 28 112/59 (76) 85 07/05/20 01:15 115 26 118/54 (75) 86 07/05/20 01:00 115 26 112/56 (74) 87 07/05/20 01:00 27 Mechanical Ventilator 100 07/05/20 01:00 27 118/54 Mechanical Ventilator 100 07/05/20 00:45 117 24 119/64 (82) 87 07/05/20 00:30 119 28 122/66 (84) 87 07/05/20 00:15 96.0 121 26 121/61 (81) 87 07/05/20 00:00 124 27 128/69 (88) 86 07/05/20 00:00 27 Mechanical Ventilator 100 07/05/20 00:00 27 121/61 Mechanical Ventilator 100 07/05/20 00:00 Mechanical Ventilator Mechanical Ventilator 07/05/20 00:00 100 07/04/20 23:45 124 28 148/75 (99) 82 07/04/20 23:30 126 30 151/77 (101) 81 07/04/20 23:15 124 31 152/76 (101) 80 07/04/20 23:13 124 07/04/20 23:08 124 25 100 07/04/20 23:00 100.7 125 31 164/87 (112) 84 07/04/20 23:00 28 Mechanical Ventilator 100 07/04/20 23:00 28 152/76 Mechanical Ventilator 100 07/04/20 22:45 123 28 111/64 (80) 86 07/04/20 22:30 126 29 116/69 (85) 87 07/04/20 22:15 128 26 130/66 (87) 84 07/04/20 22:00 96.4 129 27 129/73 (91) 85 07/04/20 22:00 28 Mechanical Ventilator 100 07/04/20 22:00 28 130/66 Mechanical Ventilator 100 07/04/20 21:45 131 29 138/74 (95) 85 07/04/20 21:30 134 29 143/71 (95) 85 07/04/20 21:15 136 28 142/80 (100) 87 07/04/20 21:00 29 Mechanical Ventilator 100 07/04/20 21:00 29 142/80 Mechanical Ventilator 100 07/04/20 21:00 137 28 164/84 (110) 87 07/04/20 20:45 138 28 158/91 (113) 70 07/04/20 20:30 136 30 154/93 (113) 68 07/04/20 20:19 29 Mechanical Ventilator 100 07/04/20 20:18 135 126/72 07/04/20 20:15 135 27 126/72 (90) 86 07/04/20 20:00 100 07/04/20 20:00 Mechanical Ventilator Mechanical Ventilator 07/04/20 20:00 28 126/72 Mechanical Ventilator 100 07/04/20 20:00 101.7 133 26 125/72 (89) 83 07/04/20 19:45 133 31 129/72 (91) 78 07/04/20 19:31 133 29 100 07/04/20 19:30 133 30 118/71 (87) 83 07/04/20 19:20 133 07/04/20 19:15 133 28 126/66 (86) 83 07/04/20 19:00 28 Mechanical Ventilator 100 07/04/20 19:00 28 126/66 Mechanical Ventilator 100 07/04/20 19:00 132 26 132/76 (94) 83 07/04/20 18:00 26 Mechanical Ventilator 100 07/04/20 18:00 26 126/66 Mechanical Ventilator 100 07/04/20 18:00 136 26 130/69 (89) 82 07/04/20 17:00 25 Mechanical Ventilator 100 07/04/20 17:00 26 126/66 Mechanical Ventilator 100 07/04/20 17:00 138 26 141/74 (96) 81 07/04/20 16:00 22 Mechanical Ventilator 100 07/04/20 16:00 26 128/66 Mechanical Ventilator 100 07/04/20 16:00 Mechanical Ventilator Mechanical Ventilator 07/04/20 16:00 99.8 134 28 133/69 (90) 53 07/04/20 16:00 100 07/04/20 16:00 137 07/04/20 15:30 129 26 133/64 (87) 63 07/04/20 15:28 100 29 100 07/04/20 15:00 26 Mechanical Ventilator 100 07/04/20 15:00 26 119/72 Mechanical Ventilator 100 07/04/20 15:00 128 27 119/72 (88) 67 07/04/20 14:30 128 28 140/71 (94) 53 Intake and Output 07/04/20 07/05/20 19:00 07:00 Intake Total 1796.0 ml 1783.0 ml Output Total 1985 ml 496 ml Balance -189.0 ml 1287.0 ml Intake Free Water 350 ml 400 ml IV Total 786.0 ml 778.0 ml Tube Feeding 660 ml 605 ml Output Urine Total 1865 ml 400 ml Chest Tube Drainage Total 120 ml 96 ml No CHEM panel drawn today Height (Feet): 5 Height (Inches): 2.00 Weight (Pounds): 138 General Appearance: no apparent distress EENT: other - Intubated on ventilator Cardiovascular: tachycardia Respiratory/Chest: other - Bilateral chest tube Raza De Jesus MD Jul 05, 2020 14:05
--- NOTE | 2020-07-05 15:30 | Cardiac Electrophysiology PN ---
Assessment/Plan Assessment/Plan 1. Respiratory failure likely due to COVID pneumonia. Intubated on 100% Fio2. Echo showed Nl EF 2. Bilateral pneumothoraces. S/P bilateral chest tube placement. Right chest tube repositioned 07/04/20 3. Troponin elevation. Levels are low and flat could be demand ischemia vs Renal failure EKG shows sinus tachycardia at 110 beats per minute. 4. Hypernatremia with sodium of 155. Resolved 5. Volume overload. On Lasix 40 iv daily 6. COVID-19 positive and is in isolation, on dexamethasone, completed Remdesivir. 7. Hypertension, on Coreg 6.25 mg b.i.d. and Lasix 8. Full code DW RN Subjective Subjective Intubated in ICU on Fentanyl and Versed drip. Had Right Chest tubes repositioned by Dr Frazier yesterday On 100% Fio2, PEEP 8 . Off pressors Objective Last 24 Hour Vital Signs Date Time Temp Pulse Resp B/P (MAP) Pulse Ox O2 Delivery O2 Flow Rate FiO2 07/05/20 14:00 101 28 102/53 (69) 86 07/05/20 14:00 26 Mechanical Ventilator 100 07/05/20 14:00 26 102/53 Mechanical Ventilator 100 07/05/20 13:30 97 26 112/56 (74) 88 07/05/20 13:00 100 26 113/59 (77) 89 07/05/20 13:00 26 Mechanical Ventilator 100 07/05/20 13:00 26 113/59 Mechanical Ventilator 100 07/05/20 12:30 98 27 115/61 (79) 88 07/05/20 12:00 99 07/05/20 12:00 98.5 101 29 101/52 (68) 88 07/05/20 12:00 Mechanical Ventilator Mechanical Ventilator 07/05/20 12:00 100 07/05/20 12:00 26 Mechanical Ventilator 100 07/05/20 12:00 29 101/52 Mechanical Ventilator 100 07/05/20 11:38 105 28 100 07/05/20 11:30 104 28 110/55 (73) 86 07/05/20 11:00 28 Mechanical Ventilator 100 07/05/20 11:00 27 104/51 Mechanical Ventilator 100 07/05/20 11:00 109 27 104/51 (68) 84 07/05/20 10:30 107 26 105/49 (67) 84 07/05/20 10:04 28 Mechanical Ventilator 100 07/05/20 10:00 104 28 117/59 (78) 81 07/05/20 10:00 29 Mechanical Ventilator 100 07/05/20 10:00 29 105/49 Mechanical Ventilator 100 07/05/20 09:30 102 29 127/65 (85) 80 07/05/20 09:00 102 28 116/60 (78) 83 07/05/20 09:00 29 Mechanical Ventilator 100 07/05/20 09:00 29 116/60 Mechanical Ventilator 100 07/05/20 08:50 103 113/59 07/05/20 08:30 105 29 104/51 (68) 84 07/05/20 08:00 100 07/05/20 08:00 105 07/05/20 08:00 26 Mechanical Ventilator 100 07/05/20 08:00 26 108/52 Mechanical Ventilator 100 07/05/20 08:00 Mechanical Ventilator Mechanical Ventilator 07/05/20 08:00 98.7 103 26 108/52 (70) 85 07/05/20 07:39 104 27 100 07/05/20 07:30 102 27 102/53 (69) 87 07/05/20 07:00 27 Mechanical Ventilator 100 07/05/20 07:00 27 120/59 Mechanical Ventilator 100 07/05/20 07:00 102 27 120/59 (79) 86 07/05/20 06:30 105 28 128/58 (81) 86 07/05/20 06:15 108 28 118/59 (78) 84 07/05/20 06:00 28 Mechanical Ventilator 100 07/05/20 06:00 28 118/59 Mechanical Ventilator 100 07/05/20 06:00 107 27 105/58 (74) 85 07/05/20 05:45 107 28 115/59 (77) 85 07/05/20 05:30 99.8 106 27 95/49 (64) 86 07/05/20 05:15 106 25 96/48 (64) 86 07/05/20 05:00 107 25 109/57 (74) 85 07/05/20 05:00 27 Mechanical Ventilator 100 07/05/20 05:00 27 135/71 Mechanical Ventilator 100 07/05/20 04:45 108 27 130/65 (86) 85 07/05/20 04:30 108 27 119/60 (79) 84 07/05/20 04:15 109 27 135/71 (92) 83 07/05/20 04:00 Mechanical Ventilator Mechanical Ventilator 07/05/20 04:00 96.3 111 27 117/52 (73) 83 07/05/20 04:00 26 Mechanical Ventilator 100 07/05/20 04:00 26 120/60 Mechanical Ventilator 100 07/05/20 04:00 100 07/05/20 03:45 109 07/05/20 03:45 109 26 104/58 (73) 85 07/05/20 03:30 109 26 105/57 (73) 86 07/05/20 03:15 109 25 120/60 (80) 87 07/05/20 03:09 108 27 100 07/05/20 03:00 28 Mechanical Ventilator 100 07/05/20 03:00 28 123/64 Mechanical Ventilator 100 07/05/20 03:00 112 27 123/64 (83) 87 07/05/20 02:45 113 25 129/62 (84) 87 07/05/20 02:30 115 26 143/66 (91) 84 07/05/20 02:15 116 27 140/73 (95) 83 07/05/20 02:00 115 27 134/72 (92) 85 07/05/20 02:00 28 Mechanical Ventilator 100 07/05/20 02:00 28 129/62 Mechanical Ventilator 100 07/05/20 01:45 100.4 114 27 114/60 (78) 85 07/05/20 01:30 114 28 112/59 (76) 85 07/05/20 01:15 115 26 118/54 (75) 86 07/05/20 01:00 115 26 112/56 (74) 87 07/05/20 01:00 27 Mechanical Ventilator 100 07/05/20 01:00 27 118/54 Mechanical Ventilator 100 07/05/20 00:45 117 24 119/64 (82) 87 07/05/20 00:30 119 28 122/66 (84) 87 07/05/20 00:15 96.0 121 26 121/61 (81) 87 07/05/20 00:00 124 27 128/69 (88) 86 07/05/20 00:00 27 Mechanical Ventilator 100 07/05/20 00:00 27 121/61 Mechanical Ventilator 100 07/05/20 00:00 Mechanical Ventilator Mechanical Ventilator 07/05/20 00:00 100 07/04/20 23:45 124 28 148/75 (99) 82 07/04/20 23:30 126 30 151/77 (101) 81 07/04/20 23:15 124 31 152/76 (101) 80 07/04/20 23:13 124 07/04/20 23:08 124 25 100 07/04/20 23:00 100.7 125 31 164/87 (112) 84 07/04/20 23:00 28 Mechanical Ventilator 100 07/04/20 23:00 28 152/76 Mechanical Ventilator 100 07/04/20 22:45 123 28 111/64 (80) 86 07/04/20 22:30 126 29 116/69 (85) 87 07/04/20 22:15 128 26 130/66 (87) 84 07/04/20 22:00 96.4 129 27 129/73 (91) 85 07/04/20 22:00 28 Mechanical Ventilator 100 07/04/20 22:00 28 130/66 Mechanical Ventilator 100 07/04/20 21:45 131 29 138/74 (95) 85 07/04/20 21:30 134 29 143/71 (95) 85 07/04/20 21:15 136 28 142/80 (100) 87 07/04/20 21:00 29 Mechanical Ventilator 100 07/04/20 21:00 29 142/80 Mechanical Ventilator 100 07/04/20 21:00 137 28 164/84 (110) 87 07/04/20 20:45 138 28 158/91 (113) 70 07/04/20 20:30 136 30 154/93 (113) 68 07/04/20 20:19 29 Mechanical Ventilator 100 07/04/20 20:18 135 126/72 07/04/20 20:15 135 27 126/72 (90) 86 07/04/20 20:00 100 07/04/20 20:00 Mechanical Ventilator Mechanical Ventilator 07/04/20 20:00 28 126/72 Mechanical Ventilator 100 07/04/20 20:00 101.7 133 26 125/72 (89) 83 07/04/20 19:45 133 31 129/72 (91) 78 07/04/20 19:31 133 29 100 07/04/20 19:30 133 30 118/71 (87) 83 07/04/20 19:20 133 07/04/20 19:15 133 28 126/66 (86) 83 07/04/20 19:00 28 Mechanical Ventilator 100 07/04/20 19:00 28 126/66 Mechanical Ventilator 100 07/04/20 19:00 132 26 132/76 (94) 83 07/04/20 18:00 26 Mechanical Ventilator 100 07/04/20 18:00 26 126/66 Mechanical Ventilator 100 07/04/20 18:00 136 26 130/69 (89) 82 07/04/20 17:00 25 Mechanical Ventilator 100 07/04/20 17:00 26 126/66 Mechanical Ventilator 100 07/04/20 17:00 138 26 141/74 (96) 81 07/04/20 16:00 22 Mechanical Ventilator 100 07/04/20 16:00 26 128/66 Mechanical Ventilator 100 07/04/20 16:00 Mechanical Ventilator Mechanical Ventilator 07/04/20 16:00 99.8 134 28 133/69 (90) 53 07/04/20 16:00 100 07/04/20 16:00 137 07/04/20 15:30 129 26 133/64 (87) 63 Intake and Output 07/04/20 07/05/20 19:00 07:00 Intake Total 1796.0 ml 1783.0 ml Output Total 1985 ml 496 ml Balance -189.0 ml 1287.0 ml Intake Free Water 350 ml 400 ml IV Total 786.0 ml 778.0 ml Tube Feeding 660 ml 605 ml Output Urine Total 1865 ml 400 ml Chest Tube Drainage Total 120 ml 96 ml Objective HEAD AND NECK: No JVD.Orally intubated with SQ emphysema LUNGS: Coarse rhonchi bilaterally. Bilateral chest tubes in. CARDIOVASCULAR: Regular S1 and S2 and tachycardic. ABDOMEN: Soft. EXTREMITIES: No pitting edema. Maxwell Carreon MD Jul 05, 2020 15:30
--- NOTE | 2020-07-05 17:26 | NUR ---
Respiratory Notes: Anchor[facility] in good condition.
--- NOTE | 2020-07-05 17:46 | NUR ---
0725: Assumed care of pt from Coral AUSTIN. Pt remains intubated and sedated. Pt currently with O2 saturations in the 80's. 0930: Spoke with KRISTINA Smith regarding orders needed for change in vent settings as well as drop in pt O2 and pt condition at this time. Also made aware that pt family members would like to be called. 1300: Dr. Frazier was at bedside and troubleshooted chest tube. Now patent and draining. All tubes in correct position. 1600: Pt continues to have O2 saturation in the high 80's. No new orders received pulmonary gilbert. Family was called and updated. Pt tolerating tube feeds at goal of 55. Pt unable to be turned due to medical instability as pt on maximum vent settings. Pt remains on cooling blanket to regulate temperature. Pt noted to have breakdown to chest. Urine output beginning to decrease following lasix push. All needs addressed. Will continue to follow.
[2020-07-05] MEDS: fentaNYL 2500mcg/NS 250ml 250 ML IV SCH (18:36)
--- NOTE | 2020-07-05 19:15 | NUR ---
Received report on patient from NORMAN Diop and assumed care of patient. Pt O2 sats in 70's and not tolerating any touching at this time. Will monitor patient.
--- NOTE | 2020-07-05 19:45 | NUR ---
Pt dropped sats to 43% and bedside monitor showed ST changes (depression). Decision made to perform a 12 lead EKG as well as an ABG in preparation of calling tonotify provider. PEr Day shift RNMD still has not called to update and speak with family. Will update provider to do so when ABG results are back. 1999: ABG results continue to show severe respiratory acidosis. RT unable to upload results into computer at this point due to no curent order for a rate of 26 on the vent. However, Melodie called multiple times 07/04/20 by Day RN to obtain order with no call back. Sarah ACEVEDO at bedside today where Day Shift RN also asked for order which was still not placed. 2009: NORMAN Martinez placed Vent rate order of 26 in computer to allow for RT to upload ABG results so that this RN can call provider. 2030: Paged Dr. Clayton, PCP and attending on case to request he call family. Will update note once provider calls back. Will also call Melodie to update on vent and gas results once I hear back from PCP/Attending.
[2020-07-05] MEDS: Dyna-Hex 2% Top Sol 2oz TOPIC SCH (20:30)
--- NOTE | 2020-07-05 20:40 | NUR ---
Called Dr. Clayton but voicemail was full so unable to leave a message. Called Dr. Sewell who requested that the rate be decreased to 20 on vent and PEEP increased to 10 with a max of [address] Sewell to call the son to speak with him about patient condition. Notified of 12 lead EKG findings and ABG findings. RT called to update on Dr. mcleod orders. Will continue to monitor the patient.
--- NOTE | 2020-07-05 21:20 | NUR ---
Called Ethan, son, who did not answer the phone and his voicemail was full so could not leave a message. Called other son, Car, to update on patient condition. Let son know current vital signs to include sustained low O2 saturations and that the patient is not doing well. Offered a visit to the family so that they could come to the ICU and see the patient through the window in the door. Notified them that it should be immediate family only and that no children should come. Also notified them that they cannot go into the patient room due to COVID19. Family agreed upon these restrictions and son handed the the phone due to him crying and unable to communicate with this RN due to emotions. said they would come into hospital and call other brother and sister as well to update them. 2135: This RN was in other patient room when family called back into hospital. high scaler notified them the same patient condition and family asked what their next step is. high scaler notified them of severe criticality of patient condition and worsening saturations and that they should talk amongst themselves about homes/arrangements to prepare for a poor outcome. Family deciding if they will come into hospital tonight or try and wait until tomorrow. Stressed current condition of patient and explained we do not know how long she can sustain with these vital signs/oxygenation levels.
--- NOTE | 2020-07-05 22:45 | NUR ---
1709-0310 Family at [facility], rotating in and out in pairs of 2 to see the patient through the window. Patient has 8 children and all children were able to see her. 1 daughter is in [place] and was able to see the patient . The family did not have any power of estate attorney and therefore wanted all siblings to discuss care of patient and advanced directive to come to a decision on next steps. This RN updated family on current status, low O2 saturations and instability of patient. Pt O2 saturations anywhere between 43% and 87%. Very fragile state. The eldest son is unable to be contact center consultant due to health and emotions. SonCar will be the point person for the family and is speaking on behalf of family in a unanimous decision by the family. The family requested that no CPR be administered if the patient were to arrest/code. SonCar, Signed the DNR for the patient. They would like to continue the current course of care for her, which includes artificial nutrition, antibiotics, IV fluids, etc. However, would not like CPR. Call made to Dr. Sewell to validate DNR by son, but physician refused to speak with the son as it was "12:30 in the morning". Explained to provider that son was in unit and immediately available via phone and he still refused. He said that he would sign it in the morning and that it is "ok that they make her DNR if they want too". Asked provider if it was [place] state law to have a provider witness a DNR request over the phone in order to activate it and he said "no it is not". This RN notified the vice president biostatistics of Dr. Sewell response. DNR signed by son placed in the patients chart along with a "sign here" sticky note pointing to the physician signature line for the provider to sign in the am. This RN will also pass along to the Day Nurse to ensure a signature is obtained. Notified family that all communication on patient should go through Car and that they should get any updates from him. Family in agreement with this. This RN will call sonCar, prior to departure in the am to update on current status and condition. Pt current O2 sat is 88%, B/P 96/52, TMax 103.2 (cooling blanket on), PEEP is at 12.
--- NOTE | 2020-07-05 23:30 | General Progress Note ---
Subjective ROS Limited/Unobtainable: Yes Allergies: Coded Allergies: No Known Allergies (Unverified , 06/17/20) Objective Last 24 Hour Vital Signs Date Time Temp Pulse Resp B/P (MAP) Pulse Ox O2 Delivery O2 Flow Rate FiO2 07/05/20 23:18 128 25 100 07/05/20 22:06 29 Mechanical Ventilator 100 07/05/20 21:45 124 29 104/59 (74) 56 07/05/20 21:30 125 31 111/60 (77) 53 07/05/20 21:15 126 32 158/63 (94) 52 07/05/20 21:00 123 31 135/69 (91) 55 07/05/20 21:00 100 07/05/20 21:00 29 Mechanical Ventilator 100 07/05/20 21:00 29 104/52 Mechanical Ventilator 100 07/05/20 21:00 112 127/65 07/05/20 20:51 112 07/05/20 20:49 120 28 100 07/05/20 20:45 118 30 118/62 (80) 54 07/05/20 20:30 118 29 121/61 (81) 55 07/05/20 20:15 115 29 121/64 (83) 61 07/05/20 20:00 Mechanical Ventilator Mechanical Ventilator 07/05/20 20:00 100 07/05/20 20:00 96.0 111 27 130/64 (86) 60 07/05/20 20:00 34 Mechanical Ventilator 100 07/05/20 20:00 34 171/98 Mechanical Ventilator 100 07/05/20 19:45 118 119/68 (85) 49 07/05/20 19:30 119 33 176/78 (110) 43 07/05/20 19:15 118 32 185/90 (121) 83 07/05/20 19:00 114 27 172/72 (105) 85 07/05/20 19:00 33 Mechanical Ventilator 100 07/05/20 19:00 33 168/95 Mechanical Ventilator 100 07/05/20 18:36 33 158/73 Mechanical Ventilator 100 07/05/20 18:00 106 29 172/83 (112) 77 07/05/20 18:00 30 Mechanical Ventilator 100 07/05/20 18:00 30 158/73 Mechanical Ventilator 100 07/05/20 17:30 107 33 177/77 (110) 75 07/05/20 17:00 26 Mechanical Ventilator 100 07/05/20 17:00 26 101/54 Mechanical Ventilator 100 07/05/20 17:00 96 27 101/54 (70) 87 07/05/20 16:30 95 25 105/55 (72) 87 07/05/20 16:00 Mechanical Ventilator Mechanical Ventilator 07/05/20 16:00 99 07/05/20 16:00 26 Mechanical Ventilator 100 07/05/20 16:00 28 105/55 Mechanical Ventilator 100 07/05/20 16:00 100 07/05/20 16:00 98.4 100 27 129/65 (86) 87 07/05/20 15:30 99 28 134/66 (88) 87 07/05/20 15:09 87 27 100 07/05/20 15:00 26 Mechanical Ventilator 100 07/05/20 15:00 26 129/65 Mechanical Ventilator 100 07/05/20 15:00 102 26 134/64 (87) 85 07/05/20 14:30 103 28 126/59 (81) 86 07/05/20 14:00 101 28 102/53 (69) 86 07/05/20 14:00 26 Mechanical Ventilator 100 07/05/20 14:00 26 102/53 Mechanical Ventilator 100 07/05/20 13:30 97 26 112/56 (74) 88 07/05/20 13:00 100 26 113/59 (77) 89 07/05/20 13:00 26 Mechanical Ventilator 100 07/05/20 13:00 26 113/59 Mechanical Ventilator 100 07/05/20 12:30 98 27 115/61 (79) 88 07/05/20 12:00 99 07/05/20 12:00 98.5 101 29 101/52 (68) 88 07/05/20 12:00 Mechanical Ventilator Mechanical Ventilator 07/05/20 12:00 100 07/05/20 12:00 26 Mechanical Ventilator 100 07/05/20 12:00 29 101/52 Mechanical Ventilator 100 07/05/20 11:38 105 28 100 07/05/20 11:30 104 28 110/55 (73) 86 07/05/20 11:00 28 Mechanical Ventilator 100 07/05/20 11:00 27 104/51 Mechanical Ventilator 100 07/05/20 11:00 109 27 104/51 (68) 84 07/05/20 10:30 107 26 105/49 (67) 84 07/05/20 10:04 28 Mechanical Ventilator 100 07/05/20 10:00 104 28 117/59 (78) 81 07/05/20 10:00 29 Mechanical Ventilator 100 07/05/20 10:00 29 105/49 Mechanical Ventilator 100 07/05/20 09:30 102 29 127/65 (85) 80 07/05/20 09:00 102 28 116/60 (78) 83 07/05/20 09:00 29 Mechanical Ventilator 100 07/05/20 09:00 29 116/60 Mechanical Ventilator 100 07/05/20 08:50 103 113/59 07/05/20 08:30 105 29 104/51 (68) 84 07/05/20 08:00 100 07/05/20 08:00 105 07/05/20 08:00 26 Mechanical Ventilator 100 07/05/20 08:00 26 108/52 Mechanical Ventilator 100 07/05/20 08:00 Mechanical Ventilator Mechanical Ventilator 07/05/20 08:00 98.7 103 26 108/52 (70) 85 07/05/20 07:39 104 27 100 07/05/20 07:30 102 27 102/53 (69) 87 07/05/20 07:00 27 Mechanical Ventilator 100 07/05/20 07:00 27 120/59 Mechanical Ventilator 100 07/05/20 07:00 102 27 120/59 (79) 86 07/05/20 06:30 105 28 128/58 (81) 86 07/05/20 06:15 108 28 118/59 (78) 84 07/05/20 06:00 28 Mechanical Ventilator 100 07/05/20 06:00 28 118/59 Mechanical Ventilator 100 07/05/20 06:00 107 27 105/58 (74) 85 07/05/20 05:45 107 28 115/59 (77) 85 07/05/20 05:30 99.8 106 27 95/49 (64) 86 07/05/20 05:15 106 25 96/48 (64) 86 07/05/20 05:00 107 25 109/57 (74) 85 07/05/20 05:00 27 Mechanical Ventilator 100 07/05/20 05:00 27 135/71 Mechanical Ventilator 100 07/05/20 04:45 108 27 130/65 (86) 85 07/05/20 04:30 108 27 119/60 (79) 84 07/05/20 04:15 109 27 135/71 (92) 83 07/05/20 04:00 Mechanical Ventilator Mechanical Ventilator 07/05/20 04:00 96.3 111 27 117/52 (73) 83 07/05/20 04:00 26 Mechanical Ventilator 100 07/05/20 04:00 26 120/60 Mechanical Ventilator 100 07/05/20 04:00 100 07/05/20 03:45 109 07/05/20 03:45 109 26 104/58 (73) 85 07/05/20 03:30 109 26 105/57 (73) 86 07/05/20 03:15 109 25 120/60 (80) 87 07/05/20 03:09 108 27 100 07/05/20 03:00 28 Mechanical Ventilator 100 07/05/20 03:00 28 123/64 Mechanical Ventilator 100 07/05/20 03:00 112 27 123/64 (83) 87 07/05/20 02:45 113 25 129/62 (84) 87 07/05/20 02:30 115 26 143/66 (91) 84 07/05/20 02:15 116 27 140/73 (95) 83 07/05/20 02:00 115 27 134/72 (92) 85 07/05/20 02:00 28 Mechanical Ventilator 100 07/05/20 02:00 28 129/62 Mechanical Ventilator 100 07/05/20 01:45 100.4 114 27 114/60 (78) 85 07/05/20 01:30 114 28 112/59 (76) 85 07/05/20 01:15 115 26 118/54 (75) 86 07/05/20 01:00 115 26 112/56 (74) 87 07/05/20 01:00 27 Mechanical Ventilator 100 07/05/20 01:00 27 118/54 Mechanical Ventilator 100 07/05/20 00:45 117 24 119/64 (82) 87 07/05/20 00:30 119 28 122/66 (84) 87 07/05/20 00:15 96.0 121 26 121/61 (81) 87 07/05/20 00:00 124 27 128/69 (88) 86 07/05/20 00:00 27 Mechanical Ventilator 100 07/05/20 00:00 27 121/61 Mechanical Ventilator 100 07/05/20 00:00 Mechanical Ventilator Mechanical Ventilator 07/05/20 00:00 100 07/04/20 23:45 124 28 148/75 (99) 82 07/04/20 23:30 126 30 151/77 (101) 81 Intake and Output 07/04/20 07/05/20 19:00 07:00 Intake Total 1796.0 ml 1783.0 ml Output Total 1985 ml 496 ml Balance -189.0 ml 1287.0 ml Intake Free Water 350 ml 400 ml IV Total 786.0 ml 778.0 ml Tube Feeding 660 ml 605 ml Output Urine Total 1865 ml 400 ml Chest Tube Drainage Total 120 ml 96 ml Laboratory Tests 07/05/20 20:14: Arterial Blood pH 7.391, Arterial Blood Partial Pressure CO2 66.3*H, Arterial Blood Partial Pressure O2 37.5*L, Arterial Blood HCO3 39.3H, Arterial Blood Oxygen Saturation 67.7*L, Arterial Blood Base Excess 12.1*H, Amrit Test Positive Height (Feet): 5 Height (Inches): 2.00 Weight (Pounds): 138 Assessment/Plan Problem List: (1) Elevated d-dimer ICD Codes: R79.89 - Other specified abnormal findings of blood chemistry SNOMED: 947196268 (2) Renal insufficiency ICD Codes: N28.9 - Disorder of kidney and ureter, unspecified SNOMED: 050580316, 516035332 (3) PNA (pneumonia) ICD Codes: J18.9 - Pneumonia, unspecified organism SNOMED: 651759266 (4) Dehydration ICD Codes: E86.0 - Dehydration SNOMED: 19474090 (5) LEONARDO (acute kidney injury) ICD Codes: N17.9 - Acute kidney failure, unspecified SNOMED: 4588973, 96957733 (6) Hypoxia ICD Codes: R09.02 - Hypoxemia; J12.82 - Pneumonia due to coronavirus disease 2019 SNOMED: 155154750 (7) Pneumonia due to COVID-19 virus ICD Codes: U07.1 - COVID-19; J12.82 - Pneumonia due to coronavirus disease 2019 SNOMED: 727633961648368181 (8) DMII (diabetes mellitus, type 2) ICD Codes: E11.9 - Type 2 diabetes mellitus without complications SNOMED: 01523527 Status: progressing, unchanged Assessment/Plan: covid + resp failure poor prognosis no fever reviewed chart and labs lethargic intubated niddm azotemia Vidya Clayton MD Jul 05, 2020 23:30
[2020-07-06] VITALS (47 sets, daily range): BP systolic 86–144; BP diastolic 50–80
[2020-07-06] MEDS: NovoLOG Insulin Flexpen SUBQ SCH ×4 (00:26→18:32)
--- NOTE | 2020-07-06 03:03 | NUR ---
Patient laid flat in order to change underpad which was damp due to slightly loose connection on L CT where suction tubing connects. Took tape down, re-tightened and re-taped the area. Snug fit. Patient does not tolerate being flat. Dropped sat to 68% with good pleth. Repositioned patient with slight tilt to the left using a pillow. Patients tube feeding changed, suction canisters changed and oral care provided. While flat, helms catheter care provided, and CHG applied to central line with cloth. Patient recovered to O2 sat of high 80's upon sitting her in high fowlers position post turn. B/P slightly low at this point, tachycardia remains, although improved. B CT's present and draining. Will continue to monitor the patient.
--- NOTE | 2020-07-06 04:57 | NUR ---
Pt remains guarded. Chest tubes patent and draining. O2 saturations stable in 80's as long as pt is not repositioned or touched. B/P remains on the sift side with SBP is the 80's-90's predominantly. Will continue to monitor the patient.
[2020-07-06] MEDS: Docusate 100mg/10ml Liq NG SCH ×3 (06:08→20:33)
--- NOTE | 2020-07-06 06:10 | NUR ---
Pt R CT put out a total of 70ml overnight while the L CT put out a total of 80ml. Pt had low urine output in total overnight at a total of ~300ml. B/P remains on the softer side, O2 sat remains in the 80's on max therapies, aware, but it is improved than where it was at start of shift. B CT's remain patent and dry/intact around connections and on dressings. Will continue to monitor the patient.
--- NOTE | 2020-07-06 06:37 | Hematology/Onc Progress Note ---
Assessment/Plan Assessment/Plan Assessment and recs # Leukocytosis with Pneumonia due to COVID-19 virus -> wbc trend 15-->11-->10->17-->18->11->21->9 --> ABX as per id ctx-->off --> imaging does show pna --> anticoag recommended --> on remdesivir # Anemia of chronic disease --> hgb 12->10-->9-->11-->10.8->10-->9.6 -> transfuse prn --> r/o hemolysis # Elevated ddimer due to covid --> duplex legs -> LOVENOX sq # Thrombocytopenia due to likely plt destruction, Covid19++ with Hypoxia -> steriods, abx per id --> plt 117-->121-->124->77-->90 --> smear is noted # Renal insufficiency -> per renal care # Sepsis due to above --> abx, fluid resuscitation # Dvt ppx lovenox sq Appreciate consultation and mehran RN Subjective Allergies: Coded Allergies: No Known Allergies (Unverified , 06/17/20) All Systems: reviewed and negative except above Subjective 06/19 sleeping, comfortable, on bipap, meds have been reviewed 06/21 on bipap, labs have been reviewed, no major events 06/22 bipap labs reviewed, meds noted, no bleeding 06/23 bipap labs noted, no bleeding, meds reviewed, mehran rn 06/24 on vent, labs reviewed, meds reviewed 06/25 on vent, with ctx as abx, labs noted, no bleeding 06/26 vent, with ogt, with helms, labs noted, no bleeding plts lower 06/28 labs are pending, on vent, helms intract, no new changes 06/29 icu, on vent, hgb 11, plt 124, meds noted, on ctx 06/30 icu, edematous, is on vent, labs reviewed, abx 07/01 icu, on vent, labs noted, no bleeding, plt 77, labs ordered 07/02 icu, nv, meds noted, no bleeding, plt 91, hgb 9 07/03 icu, nv, meds noted, right chest tube with output, hgb 10 07/05 icu, nv, meds reviewed, labs noted, b/l chest tubes in place 07/06 icu, nv, meds, labs have been ordered, chest tube draining Objective Objective Current Medications Medications (Trade) Dose Ordered Sig/Maya Route PRN Reason Start Time Stop Time Status Last Admin Dose Admin Acetaminophen (Tylenol) 500 mg Q4H PRN ORAL Mild Pain (Pain Scale 1-3) 06/18/20 00:15 07/18/20 00:14 06/24/20 17:51 Acetaminophen (Tylenol) 500 mg Q4H PRN ORAL Temp >100.5 06/18/20 00:15 07/18/20 00:14 06/29/20 20:01 Carvedilol (Coreg) 6.25 mg EVERY 12 HOURS ORAL 06/22/20 21:00 07/22/20 20:59 07/05/20 21:00 Cefepime HCl 1 gm/ Dextrose 55 ml @ 110 mls/hr DAILY IVPB 07/04/20 09:00 07/08/20 12:00 07/05/20 08:49 Chlorhexidine Gluconate (Sissy-Hex 2%) 1 applic DAILY@2000 TOPIC 06/28/20 20:00 09/26/20 19:59 07/05/20 20:30 Dextrose (Dextrose 50%) 25 ml Q30M PRN IV Hypoglycemia 06/18/20 14:15 09/16/20 14:14 Dextrose (Dextrose 50%) 50 ml Q30M PRN IV Hypoglycemia 06/18/20 14:15 09/16/20 14:14 Docusate Sodium (Colace) 100 mg EVERY 8 HOURS NG 07/02/20 14:00 07/28/20 12:59 07/06/20 06:08 Fentanyl Citrate 250 ml @ 1 mls/hr Q24H IV 07/03/20 20:30 07/06/20 20:29 07/05/20 18:36 Furosemide (Lasix) 40 mg DAILY IV 06/28/20 17:45 07/28/20 16:59 07/05/20 08:48 Haloperidol Lactate (Haldol) 10 mg Q6H PRN IM Agitation 06/23/20 11:30 08/07/20 11:29 06/23/20 11:34 Insulin Aspart (NovoLOG) while NPO Q6HR SUBQ 06/18/20 18:00 09/16/20 17:59 07/06/20 00:26 Midazolam HCl 100 ml @ 0 mls/hr Q24H PRN IV To Patient Comfort 07/06/20 07:00 07/08/20 06:59 Pantoprazole (Protonix) 40 mg EVERY 12 HOURS IVP 06/18/20 21:00 07/18/20 20:59 07/05/20 20:30 Sodium Chloride 1,000 ml @ 50 mls/hr Q20H IV 06/26/20 08:00 07/26/20 07:59 07/05/20 12:08 Vitamin D (Vitamin D) 2,000 unit DAILY GT 06/29/20 10:30 07/29/20 10:29 07/05/20 08:48 Last 24 Hour Vital Signs Date Time Temp Pulse Resp B/P (MAP) Pulse Ox O2 Delivery O2 Flow Rate FiO2 07/06/20 06:00 99.5 100 25 94/52 (66) 87 07/06/20 06:00 23 Mechanical Ventilator 100 07/06/20 06:00 23 94/52 Mechanical Ventilator 100 07/06/20 05:45 101 25 93/54 (67) 87 07/06/20 05:38 102 23 100 07/06/20 05:30 102 24 94/56 (69) 88 07/06/20 05:15 103 25 100/61 (74) 87 07/06/20 05:00 103 25 106/63 (77) 87 07/06/20 05:00 25 Mechanical Ventilator 100 07/06/20 05:00 25 106/63 Mechanical Ventilator 100 07/06/20 04:45 98.3 103 25 97/59 (72) 86 07/06/20 04:30 104 26 98/59 (72) 86 07/06/20 04:15 105 25 101/64 (76) 85 07/06/20 04:00 105 23 86/53 (64) 86 07/06/20 04:00 23 Mechanical Ventilator 100 07/06/20 04:00 23 86/53 Mechanical Ventilator 100 07/06/20 04:00 100 07/06/20 04:00 Mechanical Ventilator Mechanical Ventilator 07/06/20 03:57 104 07/06/20 03:45 104 24 90/50 (63) 87 07/06/20 03:30 104 23 97/57 (70) 87 07/06/20 03:29 103 22 100 07/06/20 03:15 106 24 88/55 (66) 88 07/06/20 03:00 21 Mechanical Ventilator 100 07/06/20 03:00 21 90/56 Mechanical Ventilator 100 07/06/20 03:00 99.4 106 21 90/56 (67) 89 07/06/20 02:45 106 22 98/55 (69) 88 07/06/20 02:30 107 21 116/68 (84) 68 07/06/20 02:15 96.0 111 24 93/53 (66) 88 07/06/20 02:00 114 25 87/59 (68) 88 07/06/20 02:00 25 Mechanical Ventilator 100 07/06/20 02:00 25 87/59 Mechanical Ventilator 100 07/06/20 01:48 109 22 100 07/06/20 01:45 100.4 116 23 96/56 (69) 87 07/06/20 01:30 118 23 94/57 (69) 86 07/06/20 01:15 120 24 99/60 (73) 85 07/06/20 01:00 103.1 121 23 106/68 (81) 84 07/06/20 01:00 27 Mechanical Ventilator 100 07/06/20 01:00 27 106/68 Mechanical Ventilator 100 07/06/20 00:48 100 07/06/20 00:45 123 27 115/60 (78) 80 07/06/20 00:30 125 28 118/64 (82) 77 07/06/20 00:15 125 29 111/52 (71) 75 07/06/20 00:00 Mechanical Ventilator Mechanical Ventilator 07/06/20 00:00 102.8 126 28 108/56 (73) 74 07/06/20 00:00 28 Mechanical Ventilator 100 07/06/20 00:00 28 108/56 Mechanical Ventilator 100 07/05/20 23:46 126 07/05/20 23:45 126 28 104/57 (73) 74 07/05/20 23:30 127 27 107/55 (72) 75 07/05/20 23:18 128 25 100 07/05/20 23:15 128 25 98/61 (73) 75 07/05/20 23:00 27 Mechanical Ventilator 100 07/05/20 23:00 27 107/55 Mechanical Ventilator 100 07/05/20 23:00 127 22 105/61 (76) 76 07/05/20 22:45 126 22 101/59 (73) 67 07/05/20 22:30 126 30 104/59 (74) 62 07/05/20 22:15 126 28 101/60 (74) 57 07/05/20 22:06 29 Mechanical Ventilator 100 07/05/20 22:00 22 105/61 Mechanical Ventilator 100 07/05/20 22:00 125 29 104/60 (75) 55 07/05/20 21:45 124 29 104/59 (74) 56 07/05/20 21:30 125 31 111/60 (77) 53 07/05/20 21:15 126 32 158/63 (94) 52 07/05/20 21:00 123 31 135/69 (91) 55 07/05/20 21:00 100 07/05/20 21:00 29 Mechanical Ventilator 100 07/05/20 21:00 29 104/52 Mechanical Ventilator 100 07/05/20 21:00 112 127/65 07/05/20 20:51 112 07/05/20 20:49 120 28 100 07/05/20 20:45 118 30 118/62 (80) 54 07/05/20 20:30 118 29 121/61 (81) 55 07/05/20 20:15 115 29 121/64 (83) 61 07/05/20 20:00 Mechanical Ventilator Mechanical Ventilator 07/05/20 20:00 100 07/05/20 20:00 96.0 111 27 130/64 (86) 60 07/05/20 20:00 34 Mechanical Ventilator 100 07/05/20 20:00 34 171/98 Mechanical Ventilator 100 07/05/20 19:45 118 119/68 (85) 49 07/05/20 19:30 119 33 176/78 (110) 43 07/05/20 19:15 118 32 185/90 (121) 83 07/05/20 19:00 114 27 172/72 (105) 85 07/05/20 19:00 33 Mechanical Ventilator 100 07/05/20 19:00 33 168/95 Mechanical Ventilator 100 07/05/20 18:36 33 158/73 Mechanical Ventilator 100 07/05/20 18:00 106 29 172/83 (112) 77 2/14/21 18:00 30 Mechanical Ventilator 100 07/05/20 18:00 30 158/73 Mechanical Ventilator 100 07/05/20 17:30 107 33 177/77 (110) 75 07/05/20 17:00 26 Mechanical Ventilator 100 07/05/20 17:00 26 101/54 Mechanical Ventilator 100 07/05/20 17:00 96 27 101/54 (70) 87 07/05/20 16:30 95 25 105/55 (72) 87 07/05/20 16:00 Mechanical Ventilator Mechanical Ventilator 07/05/20 16:00 99 07/05/20 16:00 26 Mechanical Ventilator 100 07/05/20 16:00 28 105/55 Mechanical Ventilator 100 07/05/20 16:00 100 07/05/20 16:00 98.4 100 27 129/65 (86) 87 07/05/20 15:30 99 28 134/66 (88) 87 07/05/20 15:09 87 27 100 07/05/20 15:00 26 Mechanical Ventilator 100 07/05/20 15:00 26 129/65 Mechanical Ventilator 100 07/05/20 15:00 102 26 134/64 (87) 85 07/05/20 14:30 103 28 126/59 (81) 86 07/05/20 14:00 101 28 102/53 (69) 86 07/05/20 14:00 26 Mechanical Ventilator 100 07/05/20 14:00 26 102/53 Mechanical Ventilator 100 07/05/20 13:30 97 26 112/56 (74) 88 07/05/20 13:00 100 26 113/59 (77) 89 07/05/20 13:00 26 Mechanical Ventilator 100 07/05/20 13:00 26 113/59 Mechanical Ventilator 100 07/05/20 12:30 98 27 115/61 (79) 88 07/05/20 12:00 99 07/05/20 12:00 98.5 101 29 101/52 (68) 88 07/05/20 12:00 Mechanical Ventilator Mechanical Ventilator 07/05/20 12:00 100 07/05/20 12:00 26 Mechanical Ventilator 100 07/05/20 12:00 29 101/52 Mechanical Ventilator 100 07/05/20 11:38 105 28 100 07/05/20 11:30 104 28 110/55 (73) 86 07/05/20 11:00 28 Mechanical Ventilator 100 07/05/20 11:00 27 104/51 Mechanical Ventilator 100 07/05/20 11:00 109 27 104/51 (68) 84 07/05/20 10:30 107 26 105/49 (67) 84 07/05/20 10:04 28 Mechanical Ventilator 100 07/05/20 10:00 104 28 117/59 (78) 81 07/05/20 10:00 29 Mechanical Ventilator 100 07/05/20 10:00 29 105/49 Mechanical Ventilator 100 07/05/20 09:30 102 29 127/65 (85) 80 07/05/20 09:00 102 28 116/60 (78) 83 07/05/20 09:00 29 Mechanical Ventilator 100 07/05/20 09:00 29 116/60 Mechanical Ventilator 100 07/05/20 08:50 103 113/59 07/05/20 08:30 105 29 104/51 (68) 84 07/05/20 08:00 100 07/05/20 08:00 105 07/05/20 08:00 26 Mechanical Ventilator 100 07/05/20 08:00 26 108/52 Mechanical Ventilator 100 07/05/20 08:00 Mechanical Ventilator Mechanical Ventilator 07/05/20 08:00 98.7 103 26 108/52 (70) 85 07/05/20 07:39 104 27 100 07/05/20 07:30 102 27 102/53 (69) 87 07/05/20 07:00 27 Mechanical Ventilator 100 07/05/20 07:00 27 120/59 Mechanical Ventilator 100 07/05/20 07:00 102 27 120/59 (79) 86 07/05/20 06:30 105 28 128/58 (81) 86 07/05/20 06:15 108 28 118/59 (78) 84 07/05/20 06:00 28 Mechanical Ventilator 100 07/05/20 06:00 28 118/59 Mechanical Ventilator 100 07/05/20 06:00 107 27 105/58 (74) 85 07/05/20 05:45 107 28 115/59 (77) 85 07/05/20 05:30 99.8 106 27 95/49 (64) 86 07/05/20 05:15 106 25 96/48 (64) 86 07/05/20 05:00 107 25 109/57 (74) 85 07/05/20 05:00 27 Mechanical Ventilator 100 07/05/20 05:00 27 135/71 Mechanical Ventilator 100 07/05/20 04:45 108 27 130/65 (86) 85 07/05/20 04:30 108 27 119/60 (79) 84 07/05/20 04:15 109 27 135/71 (92) 83 07/05/20 04:00 Mechanical Ventilator Mechanical Ventilator 07/05/20 04:00 96.3 111 27 117/52 (73) 83 07/05/20 04:00 26 Mechanical Ventilator 100 07/05/20 04:00 26 120/60 Mechanical Ventilator 100 07/05/20 04:00 100 07/05/20 03:45 109 07/05/20 03:45 109 26 104/58 (73) 85 07/05/20 03:30 109 26 105/57 (73) 86 07/05/20 03:15 109 25 120/60 (80) 87 07/05/20 03:09 108 27 100 07/05/20 03:00 28 Mechanical Ventilator 100 07/05/20 03:00 28 123/64 Mechanical Ventilator 100 07/05/20 03:00 112 27 123/64 (83) 87 07/05/20 02:45 113 25 129/62 (84) 87 07/05/20 02:30 115 26 143/66 (91) 84 07/05/20 02:15 116 27 140/73 (95) 83 07/05/20 02:00 115 27 134/72 (92) 85 07/05/20 02:00 28 Mechanical Ventilator 100 07/05/20 02:00 28 129/62 Mechanical Ventilator 100 07/05/20 01:45 100.4 114 27 114/60 (78) 85 07/05/20 01:30 114 28 112/59 (76) 85 07/05/20 01:15 115 26 118/54 (75) 86 07/05/20 01:00 115 26 112/56 (74) 87 07/05/20 01:00 27 Mechanical Ventilator 100 07/05/20 01:00 27 118/54 Mechanical Ventilator 100 07/05/20 00:45 117 24 119/64 (82) 87 07/05/20 00:30 119 28 122/66 (84) 87 07/05/20 00:15 96.0 121 26 121/61 (81) 87 07/05/20 00:00 124 27 128/69 (88) 86 07/05/20 00:00 27 Mechanical Ventilator 100 07/05/20 00:00 27 121/61 Mechanical Ventilator 100 07/05/20 00:00 Mechanical Ventilator Mechanical Ventilator 07/05/20 00:00 100 07/04/20 23:45 124 28 148/75 (99) 82 07/04/20 23:30 126 30 151/77 (101) 81 07/04/20 23:15 124 31 152/76 (101) 80 07/04/20 23:13 124 07/04/20 23:08 124 25 100 07/04/20 23:00 100.7 125 31 164/87 (112) 84 07/04/20 23:00 28 Mechanical Ventilator 100 07/04/20 23:00 28 152/76 Mechanical Ventilator 100 07/04/20 22:45 123 28 111/64 (80) 86 07/04/20 22:30 126 29 116/69 (85) 87 07/04/20 22:15 128 26 130/66 (87) 84 07/04/20 22:00 96.4 129 27 129/73 (91) 85 07/04/20 22:00 28 Mechanical Ventilator 100 07/04/20 22:00 28 130/66 Mechanical Ventilator 100 07/04/20 21:45 131 29 138/74 (95) 85 07/04/20 21:30 134 29 143/71 (95) 85 07/04/20 21:15 136 28 142/80 (100) 87 07/04/20 21:00 29 Mechanical Ventilator 100 07/04/20 21:00 29 142/80 Mechanical Ventilator 100 07/04/20 21:00 137 28 164/84 (110) 87 07/04/20 20:45 138 28 158/91 (113) 70 07/04/20 20:30 136 30 154/93 (113) 68 07/04/20 20:19 29 Mechanical Ventilator 100 07/04/20 20:18 135 126/72 07/04/20 20:15 135 27 126/72 (90) 86 07/04/20 20:00 100 07/04/20 20:00 Mechanical Ventilator Mechanical Ventilator 07/04/20 20:00 28 126/72 Mechanical Ventilator 100 07/04/20 20:00 101.7 133 26 125/72 (89) 83 07/04/20 19:45 133 31 129/72 (91) 78 07/04/20 19:31 133 29 100 07/04/20 19:30 133 30 118/71 (87) 83 07/04/20 19:20 133 07/04/20 19:15 133 28 126/66 (86) 83 07/04/20 19:00 28 Mechanical Ventilator 100 07/04/20 19:00 28 126/66 Mechanical Ventilator 100 07/04/20 19:00 132 26 132/76 (94) 83 07/04/20 18:00 26 Mechanical Ventilator 100 07/04/20 18:00 26 126/66 Mechanical Ventilator 100 07/04/20 18:00 136 26 130/69 (89) 82 07/04/20 17:00 25 Mechanical Ventilator 100 07/04/20 17:00 26 126/66 Mechanical Ventilator 100 07/04/20 17:00 138 26 141/74 (96) 81 07/04/20 16:00 22 Mechanical Ventilator 100 07/04/20 16:00 26 128/66 Mechanical Ventilator 100 07/04/20 16:00 Mechanical Ventilator Mechanical Ventilator 07/04/20 16:00 99.8 134 28 133/69 (90) 53 07/04/20 16:00 100 07/04/20 16:00 137 07/04/20 15:30 129 26 133/64 (87) 63 07/04/20 15:28 100 29 100 07/04/20 15:00 26 Mechanical Ventilator 100 07/04/20 15:00 26 119/72 Mechanical Ventilator 100 07/04/20 15:00 128 27 119/72 (88) 67 07/04/20 14:30 128 28 140/71 (94) 53 07/04/20 14:00 28 Mechanical Ventilator 100 07/04/20 14:00 28 152/69 Mechanical Ventilator 100 07/04/20 14:00 128 28 152/69 (96) 56 07/04/20 13:30 125 31 160/75 (103) 50 07/04/20 13:00 30 Mechanical Ventilator 100 07/04/20 13:00 30 145/72 Mechanical Ventilator 100 07/04/20 13:00 118 31 145/72 (96) 42 07/04/20 12:30 111 25 111/57 (75) 88 07/04/20 12:00 110 07/04/20 12:00 99.7 111 24 104/56 (72) 89 07/04/20 12:00 25 Mechanical Ventilator 100 07/04/20 12:00 22 121/64 Mechanical Ventilator 100 07/04/20 12:00 Mechanical Ventilator Mechanical Ventilator 07/04/20 12:00 114 28 121/64 (83) 78 07/04/20 12:00 100 07/04/20 11:38 110 27 100 07/04/20 11:00 112 24 111/57 (75) 89 07/04/20 11:00 19 Mechanical Ventilator 100 07/04/20 11:00 24 111/57 Mechanical Ventilator 100 07/04/20 10:06 105 148/69 07/04/20 10:00 110 24 117/58 (77) 86 07/04/20 10:00 22 Non-Rebreather 100 07/04/20 10:00 19 117/58 Mechanical Ventilator 100 07/04/20 09:36 21 101/58 100 07/04/20 09:30 104 22 148/69 (95) 84 07/04/20 09:00 19 Mechanical Ventilator 100 07/04/20 09:00 19 113/58 Mechanical Ventilator 100 07/04/20 09:00 108 23 113/58 (76) 84 07/04/20 08:30 116 25 127/76 (93) 90 07/04/20 08:00 96.0 112 23 113/62 (79) 92 07/04/20 08:00 110 07/04/20 08:00 24 Mechanical Ventilator 100 07/04/20 08:00 24 113/62 Mechanical Ventilator 100 07/04/20 08:00 100 07/04/20 08:00 Mechanical Ventilator Mechanical Ventilator 07/04/20 07:38 109 20 100 07/04/20 07:30 114 23 129/70 (89) 90 07/04/20 07:00 116 22 128/71 (90) 92 07/04/20 07:00 22 Mechanical Ventilator 100 07/04/20 07:00 22 128/71 Mechanical Ventilator 100 07/04/20 06:45 119 22 149/75 (99) 82 Intake and Output 07/05/20 07/06/20 19:00 07:00 Intake Total 1726.0 ml 1465 ml Output Total 1816 ml 430 ml Balance -90.0 ml 1035 ml Intake Free Water 280 ml 100 ml IV Total 786.0 ml 760 ml Tube Feeding 660 ml 605 ml Output Urine Total 1730 ml 280 ml Chest Tube Drainage Total 86 ml 150 ml Labs Test 07/04/20 00:55 07/04/20 01:44 07/04/20 03:40 07/04/20 13:25 Arterial Blood pH 7.326 (7.350-7.450) 7.364 (7.350-7.450) 7.378 (7.350-7.450) Arterial Blood Partial Pressure CO2 78.7 mmHg (35.0-45.0) 65.3 mmHg (35.0-45.0) 70.7 mmHg (35.0-45.0) Arterial Blood Partial Pressure O2 32.8 mmHg (75.0-100.0) 58.2 mmHg (75.0-100.0) 29.2 mmHg (75.0-100.0) Arterial Blood HCO3 40.2 mmol/L (22.0-26.0) 36.4 mmol/L (22.0-26.0) 40.7 mmol/L (22.0-26.0) Arterial Blood Oxygen Saturation 58.5 % (95-100) 86.9 % (95-100) 54.7 % (95-100) Arterial Blood Base Excess 11.5 (-2-2) 9.2 (-2-2) 12.9 (-2-2) Amrit Test Positive Positive Positive White Blood Count 9.6 K/UL (4.8-10.8) Red Blood Count 3.20 M/UL (4.20-5.40) Hemoglobin 9.6 G/DL (12.0-16.0) Hematocrit 30.9 % (37.0-47.0) Mean Corpuscular Volume 96 FL (80-99) Mean Corpuscular Hemoglobin 30.1 PG (27.0-31.0) Mean Corpuscular Hemoglobin Concent 31.3 G/DL (32.0-36.0) Red Cell Distribution Width 15.0 % (11.6-14.8) Platelet Count 90 K/UL (150-450) Mean Platelet Volume 8.6 FL (6.5-10.1) Neutrophils (%) (Auto) % (45.0-75.0) Lymphocytes (%) (Auto) % (20.0-45.0) Monocytes (%) (Auto) % (1.0-10.0) Eosinophils (%) (Auto) % (0.0-3.0) Basophils (%) (Auto) % (0.0-2.0) Differential Total Cells Counted 100 Neutrophils % (Manual) 82 % (45-75) Lymphocytes % (Manual) 10 % (20-45) Monocytes % (Manual) 3 % (1-10) Eosinophils % (Manual) 4 % (0-3) Basophils % (Manual) 0 % (0-2) Band Neutrophils 1 % (0-8) Platelet Estimate Decreased Platelet Morphology Normal Hypochromasia 1+ Anisocytosis 1+ Sodium Level 146 MMOL/L (136-145) Potassium Level 3.6 MMOL/L (3.5-5.1) Chloride Level 107 MMOL/L (98-107) Carbon Dioxide Level 36 MMOL/L (21-32) Anion Gap 4 mmol/L (5-15) Blood Urea Nitrogen 15 mg/dL (7-18) Creatinine 0.4 MG/DL (0.55-1.30) Estimat Glomerular Filtration Rate > 60 mL/min (>60) Glucose Level 149 MG/DL (74-106) Uric Acid 1.2 MG/DL (2.6-7.2) Calcium Level 7.4 MG/DL (8.5-10.1) Phosphorus Level 2.3 MG/DL (2.5-4.9) Magnesium Level 2.0 MG/DL (1.8-2.4) Total Bilirubin 0.5 MG/DL (0.2-1.0) Aspartate Amino Transf (AST/SGOT) 55 U/L (15-37) Alanine Aminotransferase (ALT/SGPT) 52 U/L (12-78) Alkaline Phosphatase 136 U/L (46-116) C-Reactive Protein, Quantitative 11.2 mg/dL (0.00-0.90) Pro-B-Type Natriuretic Peptide 271 pg/mL (0-125) Total Protein 5.4 G/DL (6.4-8.2) Albumin 1.1 G/DL (3.4-5.0) Globulin 4.3 g/dL Albumin/Globulin Ratio 0.3 (1.0-2.7) Test 07/05/20 20:14 Arterial Blood pH 7.391 (7.350-7.450) Arterial Blood Partial Pressure CO2 66.3 mmHg (35.0-45.0) Arterial Blood Partial Pressure O2 37.5 mmHg (75.0-100.0) Arterial Blood HCO3 39.3 mmol/L (22.0-26.0) Arterial Blood Oxygen Saturation 67.7 % (95-100) Arterial Blood Base Excess 12.1 (-2-2) Amrit Test Positive Height (Feet): 5 Height (Inches): 2.00 Weight (Pounds): 138 Objective Physical Exam Vitals: reviewed, abnormal - Interpreted as low by me General: GCS 15 - Sometimes slightly confused, non-toxic, mild distress Head: normocephalic, moist mucus membranes Neck: supple Respiratory: no retraction, no accessory muscle use, respiratory distress - Minimal with tachypnea, crackles Cardiovascular: regular rate, rhythm, no edema Gastrointestinal: normal inspection, non tender, soft Genitourinary: no CVA tenderness Musculoskeletal: back normal Neurologic: alert, oriented x3, grossly normal Psychiatric: mood/affect normal - sometimes confused Skin: no rash, warm/dry Jj Swann MD Jul 06, 2020 06:37
--- NOTE | 2020-07-06 06:47 | NUR ---
Called son, Car, to update on Mother's condition. Notified him of day nurse name and that I would pass along his information to her. Will continue to monitor.
[2020-07-06 06:52] LABS: BASOPHILS % (AUTO) 0.5 % (0.0-2.0); EOSINOPHILS % (AUTO) 3.5 % (0.0-3.0); HEMATOCRIT 30.6 % (37.0-47.0); HEMOGLOBIN 9.6 G/DL (12.0-16.0); LYMPHOCYTES % (AUTO) 11.3 % (20.0-45.0); MEAN CORPUSCULAR VOLUME 98 FL (80-99); MONOCYTES % (AUTO) 2.1 % (1.0-10.0); NEUTROPHILS % (AUTO) 82.6 % (45.0-75.0); PLATELET COUNT 105 K/UL (150-450); RED BLOOD COUNT 3.13 M/UL (4.20-5.40); WHITE BLOOD COUNT 8.4 K/UL (4.8-10.8)
[2020-07-06 07:12] LABS: ALANINE AMINOTRANSFERASE 52 U/L (12-78); ALBUMIN/GLOBULIN RATIO 0.2 (1.0-2.7); ALKALINE PHOSPHATASE 150 U/L (46-116); ASPARTATE AMINO TRANSFERASE 57 U/L (15-37); BILIRUBIN,TOTAL 0.5 MG/DL (0.2-1.0); BLOOD UREA NITROGEN 17 mg/dL (7-18); CALCIUM 7.6 MG/DL (8.5-10.1); CARBON DIOXIDE 38 MMOL/L (21-32); CHLORIDE 104 MMOL/L (98-107); CREATININE 0.6 MG/DL (0.55-1.30); GAMMA GLUTAMYL TRANSPEPTIDASE 123 U/L (5-85); PHOSPHORUS 2.7 MG/DL (2.5-4.9); POTASSIUM 3.8 MMOL/L (3.5-5.1); SODIUM 141 MMOL/L (136-145)
--- NOTE | 2020-07-06 07:15 | NUR ---
RESPIRATORY NOTE: PT received on AC/VC: 20, 400, 100%, +12. (Ventilator states PEEP of +10 but allows PEEP of +12 if needed). Alarms are on and audible. Vent circuit is secure and out of the way. Airway is secure and patent. PT saturation is currently 84% on the monitor while on the maximum allowed PEEP. Beatriz AUSTIN is aware. Will continue to closely monitor.
--- NOTE | 2020-07-06 07:15 | NUR ---
Report given to Tatiana Cerda who assumed care of patient.
--- NOTE | 2020-07-06 07:16 | NUR ---
NURSE NOTES: Received bedside report from NORMAN Moncada. Taz arnett MD aware. Pt is on sedation, does not open eyes spontaneously, does not follow commands. SR to ST on the cardiac specialist, HR between 95-110. Pt intubated, ETT 7.0 at 22 cm lip line with the following vent settings: A/C 20, T/V 400, 100% FiO2, Peep 12, O2 sat between 80-86%, MD aware per prior RN. Pt has Glucerna 1.2 running at 55mL/hr via OGT, no residual noted. Pt has helms catheter, draining well, dark yellow urine noted. Pt has Right and Left Chest Tubes, suction noted, functioning well, serousanguinous drainage noted. Skin alterations noted in chart and protected with optifoam. Pt has Left FA 22g, no signs of infection or complication noted, and TONY PICC, no signs of infection or complication noted from site, dressing clean dry and intact. Fentanyl currently running at 100mcg/hr, Versed at 5mg/hr, and NS at 50mL/hr. HOB at 30 degrees. Bed locked and in lowest position. Safety precautions maintained. Will continue to monitor. Addendum: 07/06/20 at 1243 by Beatriz Espinoza RN NURSE NOTES: Received bedside report from NORMAN Moncada. Taz arnett MD aware. Pt is on sedation, does not open eyes spontaneously, does not follow commands. SR to ST on the cardiac specialist, HR between 95-110. Pt intubated, ETT 7.0 at 22 cm lip line with the following vent settings: A/C 20, T/V 400, 100% FiO2, Peep 12, O2 sat between 80-86%, MD aware per prior RN. Pt has Glucerna 1.2 running at 55mL/hr via OGT, no residual noted. Pt has helms catheter, draining well, dark yellow urine noted. Pt has Right and Left Chest Tubes, suction noted, functioning well, serousanguinous drainage noted. Skin alterations noted in chart and protected with optifoam. Pt has Left FA 22g, no signs of infection or complication noted, and TONY PICC, no signs of infection or complication noted from site, dressing clean dry and intact. Fentanyl currently running at 100mcg/hr, Versed at 5mg/hr, and NS at 50mL/hr. Pt currently on cooling blanket. HOB at 30 degrees. Bed locked and in lowest position. Safety precautions maintained. Will continue to monitor.
--- NOTE | 2020-07-06 08:29 | NUR ---
RESPIRATORY NOTE: ABG drawn at this time. Results reported to Beatriz AUSTIN. Drawn on: AC/VC20,400,100%,+12 Vent order states PEEP of +10 but allows for a PEEP of +12 if needed. ABG drawn on settings above.
[2020-07-06] MEDS: Vitamin D 1000 units Tab GT SCH (08:43)
[2020-07-06] MEDS: Pantoprazole Inj IVP SCH ×2 (08:43→20:32)
[2020-07-06] MEDS: Cefepime HCl 1 GM in D5W 55 ML IVPB SCH (08:43)
[2020-07-06] MEDS: Carvedilol 6.25mg Tab ORAL SCH ×2 (08:47→20:33)
[2020-07-06] MEDS: Versed 50mg/NS 100ml 100 ML IV PRN ×2 (08:47→20:06)
--- NOTE | 2020-07-06 09:45 | NUR ---
NURSE NOTES: OGT placement checked, tip of tube in its proper place. Tube feeding residual checked, no residual noted. Scheduled carvedilol and lasix not given due to pt's SBP is in the 90s. Other scheduled medications given per MD order, pt tolerated well. Pt's VSS, afebrile. Will continue to monitor.
--- NOTE | 2020-07-06 10:00 | NUR ---
NURSE NOTES: MD Sewell at bedside to assess pt. Current ABG results given to MD Sewell, no new orders received. MD Sewell signed pt's DNR form. Will continue to monitor pt.
--- NOTE | 2020-07-06 10:44 | Pulmonology Progress Note ---
Subjective ROS Limited/Unobtainable: Yes Interval Events: Remains intubated; bilateral chest tubes in place Constitutional: Reports: fever, other - low grade in am HEENT: Repors: no symptoms Respiratory: Reports: shortness of breath Cardiovascular: Reports: no symptoms Gastrointestinal/Abdominal: Reports: no symptoms Allergies: Coded Allergies: No Known Allergies (Unverified , 06/17/20) All Systems: reviewed and negative except above Objective Last 24 Hour Vital Signs Date Time Temp Pulse Resp B/P (MAP) Pulse Ox O2 Delivery O2 Flow Rate FiO2 07/06/20 08:47 23 Mechanical Ventilator 100 07/06/20 08:47 101 123/61 07/06/20 07:16 100 24 100 07/06/20 06:00 99.5 100 25 94/52 (66) 87 07/06/20 06:00 23 Mechanical Ventilator 100 07/06/20 06:00 23 94/52 Mechanical Ventilator 100 07/06/20 05:45 101 25 93/54 (67) 87 07/06/20 05:38 102 23 100 07/06/20 05:30 102 24 94/56 (69) 88 07/06/20 05:15 103 25 100/61 (74) 87 07/06/20 05:00 103 25 106/63 (77) 87 07/06/20 05:00 25 Mechanical Ventilator 100 07/06/20 05:00 25 106/63 Mechanical Ventilator 100 07/06/20 04:45 98.3 103 25 97/59 (72) 86 07/06/20 04:30 104 26 98/59 (72) 86 07/06/20 04:15 105 25 101/64 (76) 85 07/06/20 04:00 105 23 86/53 (64) 86 07/06/20 04:00 23 Mechanical Ventilator 100 07/06/20 04:00 23 86/53 Mechanical Ventilator 100 07/06/20 04:00 100 07/06/20 04:00 Mechanical Ventilator Mechanical Ventilator 07/06/20 03:57 104 07/06/20 03:45 104 24 90/50 (63) 87 07/06/20 03:30 104 23 97/57 (70) 87 07/06/20 03:29 103 22 100 07/06/20 03:15 106 24 88/55 (66) 88 07/06/20 03:00 21 Mechanical Ventilator 100 07/06/20 03:00 21 90/56 Mechanical Ventilator 100 07/06/20 03:00 99.4 106 21 90/56 (67) 89 07/06/20 02:45 106 22 98/55 (69) 88 07/06/20 02:30 107 21 116/68 (84) 68 07/06/20 02:15 96.0 111 24 93/53 (66) 88 07/06/20 02:00 114 25 87/59 (68) 88 07/06/20 02:00 25 Mechanical Ventilator 100 07/06/20 02:00 25 87/59 Mechanical Ventilator 100 07/06/20 01:48 109 22 100 07/06/20 01:45 100.4 116 23 96/56 (69) 87 07/06/20 01:30 118 23 94/57 (69) 86 07/06/20 01:15 120 24 99/60 (73) 85 07/06/20 01:00 103.1 121 23 106/68 (81) 84 07/06/20 01:00 27 Mechanical Ventilator 100 07/06/20 01:00 27 106/68 Mechanical Ventilator 100 07/06/20 00:48 100 07/06/20 00:45 123 27 115/60 (78) 80 07/06/20 00:30 125 28 118/64 (82) 77 07/06/20 00:15 125 29 111/52 (71) 75 07/06/20 00:00 Mechanical Ventilator Mechanical Ventilator 07/06/20 00:00 102.8 126 28 108/56 (73) 74 07/06/20 00:00 28 Mechanical Ventilator 100 07/06/20 00:00 28 108/56 Mechanical Ventilator 100 07/05/20 23:46 126 07/05/20 23:45 126 28 104/57 (73) 74 07/05/20 23:30 127 27 107/55 (72) 75 07/05/20 23:18 128 25 100 07/05/20 23:15 128 25 98/61 (73) 75 07/05/20 23:00 27 Mechanical Ventilator 100 07/05/20 23:00 27 107/55 Mechanical Ventilator 100 07/05/20 23:00 127 22 105/61 (76) 76 07/05/20 22:45 126 22 101/59 (73) 67 07/05/20 22:30 126 30 104/59 (74) 62 07/05/20 22:15 126 28 101/60 (74) 57 07/05/20 22:06 29 Mechanical Ventilator 100 07/05/20 22:00 22 105/61 Mechanical Ventilator 100 07/05/20 22:00 125 29 104/60 (75) 55 07/05/20 21:45 124 29 104/59 (74) 56 07/05/20 21:30 125 31 111/60 (77) 53 07/05/20 21:15 126 32 158/63 (94) 52 07/05/20 21:00 123 31 135/69 (91) 55 07/05/20 21:00 100 07/05/20 21:00 29 Mechanical Ventilator 100 07/05/20 21:00 29 104/52 Mechanical Ventilator 100 07/05/20 21:00 112 127/65 07/05/20 20:51 112 07/05/20 20:49 120 28 100 07/05/20 20:45 118 30 118/62 (80) 54 07/05/20 20:30 118 29 121/61 (81) 55 07/05/20 20:15 115 29 121/64 (83) 61 07/05/20 20:00 Mechanical Ventilator Mechanical Ventilator 07/05/20 20:00 100 07/05/20 20:00 96.0 111 27 130/64 (86) 60 07/05/20 20:00 34 Mechanical Ventilator 100 07/05/20 20:00 34 171/98 Mechanical Ventilator 100 07/05/20 19:45 118 119/68 (85) 49 07/05/20 19:30 119 33 176/78 (110) 43 07/05/20 19:15 118 32 185/90 (121) 83 07/05/20 19:00 114 27 172/72 (105) 85 07/05/20 19:00 33 Mechanical Ventilator 100 07/05/20 19:00 33 168/95 Mechanical Ventilator 100 07/05/20 18:36 33 158/73 Mechanical Ventilator 100 07/05/20 18:00 106 29 172/83 (112) 77 07/05/20 18:00 30 Mechanical Ventilator 100 07/05/20 18:00 30 158/73 Mechanical Ventilator 100 07/05/20 17:30 107 33 177/77 (110) 75 2/14/21 17:00 26 Mechanical Ventilator 100 07/05/20 17:00 26 101/54 Mechanical Ventilator 100 07/05/20 17:00 96 27 101/54 (70) 87 07/05/20 16:30 95 25 105/55 (72) 87 07/05/20 16:00 Mechanical Ventilator Mechanical Ventilator 07/05/20 16:00 99 07/05/20 16:00 26 Mechanical Ventilator 100 07/05/20 16:00 28 105/55 Mechanical Ventilator 100 07/05/20 16:00 100 07/05/20 16:00 98.4 100 27 129/65 (86) 87 07/05/20 15:30 99 28 134/66 (88) 87 07/05/20 15:09 87 27 100 07/05/20 15:00 26 Mechanical Ventilator 100 07/05/20 15:00 26 129/65 Mechanical Ventilator 100 07/05/20 15:00 102 26 134/64 (87) 85 07/05/20 14:30 103 28 126/59 (81) 86 07/05/20 14:00 101 28 102/53 (69) 86 07/05/20 14:00 26 Mechanical Ventilator 100 07/05/20 14:00 26 102/53 Mechanical Ventilator 100 07/05/20 13:30 97 26 112/56 (74) 88 07/05/20 13:00 100 26 113/59 (77) 89 07/05/20 13:00 26 Mechanical Ventilator 100 07/05/20 13:00 26 113/59 Mechanical Ventilator 100 07/05/20 12:30 98 27 115/61 (79) 88 07/05/20 12:00 99 07/05/20 12:00 98.5 101 29 101/52 (68) 88 07/05/20 12:00 Mechanical Ventilator Mechanical Ventilator 07/05/20 12:00 100 07/05/20 12:00 26 Mechanical Ventilator 100 07/05/20 12:00 29 101/52 Mechanical Ventilator 100 07/05/20 11:38 105 28 100 07/05/20 11:30 104 28 110/55 (73) 86 07/05/20 11:00 28 Mechanical Ventilator 100 07/05/20 11:00 27 104/51 Mechanical Ventilator 100 07/05/20 11:00 109 27 104/51 (68) 84 Intake and Output 2/14/21 2/15/21 19:00 07:00 Intake Total 1726.0 ml 1465 ml Output Total 1816 ml 430 ml Balance -90.0 ml 1035 ml Intake Free Water 280 ml 100 ml IV Total 786.0 ml 760 ml Tube Feeding 660 ml 605 ml Output Urine Total 1730 ml 280 ml Chest Tube Drainage Total 86 ml 150 ml General Appearance: no acute distress HEENT: atraumatic Respiratory: crackles/rales Cardiovascular: normal rate Abdomen: soft, non tender Laboratory Tests 07/05/20 20:14: Arterial Blood pH 7.391, Arterial Blood Partial Pressure CO2 66.3*H, Arterial Blood Partial Pressure O2 37.5*L, Arterial Blood HCO3 39.3H, Arterial Blood Oxygen Saturation 67.7*L, Arterial Blood Base Excess 12.1*H, Amrit Test Positive 07/06/20 05:45: White Blood Count 8.4, Red Blood Count 3.13L, Hemoglobin 9.6L, Hematocrit 30.6L, Mean Corpuscular Volume 98, Mean Corpuscular Hemoglobin 30.6, Mean Corpuscular Hemoglobin Concent 31.3L, Red Cell Distribution Width 16.0H, Platelet Count 105L , Mean Platelet Volume 8.9, Neutrophils (%) (Auto) 82.6H, Lymphocytes (%) (Auto) 11.3L, Monocytes (%) (Auto) 2.1, Eosinophils (%) (Auto) 3.5H, Basophils (%) (Auto) 0.5, Sodium Level 141, Potassium Level 3.8, Chloride Level 104, Carbon Dioxide Level 38H, Blood Urea Nitrogen 17, Creatinine 0.6, Estimat Glomerular Filtration Rate > 60, Glucose Level 131H, Uric Acid 1.7L, Calcium Level 7.6L, Phosphorus Level 2.7, Magnesium Level 2.1, Total Bilirubin 0.5, Gamma Glutamyl Transpeptidase 123H, Aspartate Amino Transf (AST/SGOT) 57H, Alanine Aminotransferase (ALT/SGPT) 52, Alkaline Phosphatase 150H, C-Reactive Protein, Quantitative 13.5H, Pro-B-Type Natriuretic Peptide 1297H, Total Protein 5.5L, Albumin 1.0L, Globulin 4.5, Albumin/Globulin Ratio 0.2L 07/06/20 08:29: Arterial Blood pH 7.395, Arterial Blood Partial Pressure CO2 70.1*H, Arterial Blood Partial Pressure O2 44.4*L, Arterial Blood HCO3 42.0*H, Arterial Blood Oxygen Saturation 78.5*L, Arterial Blood Base Excess 14.6*H, Amrit Test Positive Current Medications Medications (Trade) Dose Ordered Sig/Maya Route PRN Reason Start Time Stop Time Status Last Admin Dose Admin Acetaminophen (Tylenol) 500 mg Q4H PRN ORAL Mild Pain (Pain Scale 1-3) 06/18/20 00:15 07/18/20 00:14 06/24/20 17:51 Acetaminophen (Tylenol) 500 mg Q4H PRN ORAL Temp >100.5 06/18/20 00:15 07/18/20 00:14 06/29/20 20:01 Carvedilol (Coreg) 6.25 mg EVERY 12 HOURS ORAL 06/22/20 21:00 07/22/20 20:59 07/05/20 21:00 Cefepime HCl 1 gm/ Dextrose 55 ml @ 110 mls/hr DAILY IVPB 07/04/20 09:00 07/08/20 12:00 07/06/20 08:43 Chlorhexidine Gluconate (Sissy-Hex 2%) 1 applic DAILY@2000 TOPIC 06/28/20 20:00 09/26/20 19:59 07/05/20 20:30 Dextrose (Dextrose 50%) 25 ml Q30M PRN IV Hypoglycemia 06/18/20 14:15 09/16/20 14:14 Dextrose (Dextrose 50%) 50 ml Q30M PRN IV Hypoglycemia 06/18/20 14:15 09/16/20 14:14 Docusate Sodium (Colace) 100 mg EVERY 8 HOURS NG 07/02/20 14:00 07/28/20 12:59 07/06/20 06:08 Fentanyl Citrate 250 ml @ 1 mls/hr Q24H IV 07/03/20 20:30 07/06/20 20:29 07/05/20 18:36 Furosemide (Lasix) 40 mg DAILY IV 06/28/20 17:45 07/28/20 16:59 07/05/20 08:48 Haloperidol Lactate (Haldol) 10 mg Q6H PRN IM Agitation 06/23/20 11:30 08/07/20 11:29 06/23/20 11:34 Insulin Aspart (NovoLOG) while NPO Q6HR SUBQ 06/18/20 18:00 09/16/20 17:59 07/06/20 00:26 Midazolam HCl 100 ml @ 0 mls/hr Q24H PRN IV To Patient Comfort 07/06/20 07:00 07/08/20 06:59 07/06/20 08:47 Pantoprazole (Protonix) 40 mg EVERY 12 HOURS IVP 06/18/20 21:00 07/18/20 20:59 07/06/20 08:43 Sodium Chloride 1,000 ml @ 50 mls/hr Q20H IV 06/26/20 08:00 07/26/20 07:59 07/06/20 08:43 Vitamin D (Vitamin D) 2,000 unit DAILY GT 06/29/20 10:30 07/29/20 10:29 07/06/20 08:43 Assessment/Plan Assessment/Plan 1. COVID-19 pneumonia -Intubated, on 100% FiO2. PEEP 5-10. -SaO2 90% -On Decadron, s/p remdesivir 2. Leukocytosis -Resolved 3. Elevated D-dimer -On Lovenox 40 subcu QD for DVT prophylaxis 4. Renal insufficiency -Improved 5. Anemia of chronic disease -Hematology oncology following 6. Sepsis -Status post antibiotics, fluid resuscitation 7. Pneumothorax 06/22/20 - b/l subcutaneous emphysema, pneumomediastinum, probable small left pneumothorax & ? trace right pneumothorax. -P[place] in place - placed CT by surgery (bilateral) - Will attempt wean when FiO2 decreases - CXR shows R PTX; will advise CT surgery to adjust R CT Discussed with son Now DNAR PaO2 44 on 100% FiO2 and PEEP 12 Grave prognosis Charlie Sewell MD Jul 06, 2020 10:44
--- NOTE | 2020-07-06 11:50 | Infectious Diseases Prog Note ---
Assessment/Plan Assessment/Plan antibiotics : cefepime A 1. covid 19 pneumonia on 100 % Fio2 with 79 % saturation 2. pneumothorax s/p CT 3. respiratory failure 4. diabetes mellitus P 1. continue cefepime 2. will follow up cultures Subjective ROS Limited/Unobtainable: Yes Allergies: Coded Allergies: No Known Allergies (Unverified , 06/17/20) Objective Last 24 Hour Vital Signs Date Time Temp Pulse Resp B/P (MAP) Pulse Ox O2 Delivery O2 Flow Rate FiO2 07/06/20 10:00 105 26 129/68 (88) 79 07/06/20 09:45 102 26 96/53 (67) 77 07/06/20 09:30 100 24 94/51 (65) 80 07/06/20 09:00 101 21 108/63 (78) 81 07/06/20 08:47 23 Mechanical Ventilator 100 07/06/20 08:47 101 123/61 07/06/20 08:03 100 07/06/20 08:00 Mechanical Ventilator Mechanical Ventilator 07/06/20 08:00 98.2 100 23 101/56 (71) 87 07/06/20 08:00 100 07/06/20 07:30 98 24 91/50 (64) 84 07/06/20 07:16 100 24 100 07/06/20 07:00 100 26 95/55 (68) 85 07/06/20 06:00 99.5 100 25 94/52 (66) 87 07/06/20 06:00 23 Mechanical Ventilator 100 07/06/20 06:00 23 94/52 Mechanical Ventilator 100 07/06/20 05:45 101 25 93/54 (67) 87 07/06/20 05:38 102 23 100 07/06/20 05:30 102 24 94/56 (69) 88 07/06/20 05:15 103 25 100/61 (74) 87 07/06/20 05:00 103 25 106/63 (77) 87 07/06/20 05:00 25 Mechanical Ventilator 100 07/06/20 05:00 25 106/63 Mechanical Ventilator 100 07/06/20 04:45 98.3 103 25 97/59 (72) 86 07/06/20 04:30 104 26 98/59 (72) 86 07/06/20 04:15 105 25 101/64 (76) 85 07/06/20 04:00 105 23 86/53 (64) 86 07/06/20 04:00 23 Mechanical Ventilator 100 07/06/20 04:00 23 86/53 Mechanical Ventilator 100 07/06/20 04:00 100 07/06/20 04:00 Mechanical Ventilator Mechanical Ventilator 07/06/20 03:57 104 07/06/20 03:45 104 24 90/50 (63) 87 07/06/20 03:30 104 23 97/57 (70) 87 07/06/20 03:29 103 22 100 07/06/20 03:15 106 24 88/55 (66) 88 07/06/20 03:00 21 Mechanical Ventilator 100 07/06/20 03:00 21 90/56 Mechanical Ventilator 100 07/06/20 03:00 99.4 106 21 90/56 (67) 89 07/06/20 02:45 106 22 98/55 (69) 88 07/06/20 02:30 107 21 116/68 (84) 68 07/06/20 02:15 96.0 111 24 93/53 (66) 88 07/06/20 02:00 114 25 87/59 (68) 88 07/06/20 02:00 25 Mechanical Ventilator 100 07/06/20 02:00 25 87/59 Mechanical Ventilator 100 07/06/20 01:48 109 22 100 07/06/20 01:45 100.4 116 23 96/56 (69) 87 07/06/20 01:30 118 23 94/57 (69) 86 07/06/20 01:15 120 24 99/60 (73) 85 07/06/20 01:00 103.1 121 23 106/68 (81) 84 07/06/20 01:00 27 Mechanical Ventilator 100 07/06/20 01:00 27 106/68 Mechanical Ventilator 100 07/06/20 00:48 100 07/06/20 00:45 123 27 115/60 (78) 80 07/06/20 00:30 125 28 118/64 (82) 77 07/06/20 00:15 125 29 111/52 (71) 75 07/06/20 00:00 Mechanical Ventilator Mechanical Ventilator 07/06/20 00:00 102.8 126 28 108/56 (73) 74 07/06/20 00:00 28 Mechanical Ventilator 100 07/06/20 00:00 28 108/56 Mechanical Ventilator 100 07/05/20 23:46 126 07/05/20 23:45 126 28 104/57 (73) 74 07/05/20 23:30 127 27 107/55 (72) 75 07/05/20 23:18 128 25 100 07/05/20 23:15 128 25 98/61 (73) 75 07/05/20 23:00 27 Mechanical Ventilator 100 07/05/20 23:00 27 107/55 Mechanical Ventilator 100 07/05/20 23:00 127 22 105/61 (76) 76 07/05/20 22:45 126 22 101/59 (73) 67 07/05/20 22:30 126 30 104/59 (74) 62 07/05/20 22:15 126 28 101/60 (74) 57 07/05/20 22:06 29 Mechanical Ventilator 100 07/05/20 22:00 22 105/61 Mechanical Ventilator 100 07/05/20 22:00 125 29 104/60 (75) 55 07/05/20 21:45 124 29 104/59 (74) 56 07/05/20 21:30 125 31 111/60 (77) 53 07/05/20 21:15 126 32 158/63 (94) 52 07/05/20 21:00 123 31 135/69 (91) 55 07/05/20 21:00 100 07/05/20 21:00 29 Mechanical Ventilator 100 07/05/20 21:00 29 104/52 Mechanical Ventilator 100 07/05/20 21:00 112 127/65 07/05/20 20:51 112 07/05/20 20:49 120 28 100 07/05/20 20:45 118 30 118/62 (80) 54 07/05/20 20:30 118 29 121/61 (81) 55 07/05/20 20:15 115 29 121/64 (83) 61 07/05/20 20:00 Mechanical Ventilator Mechanical Ventilator 07/05/20 20:00 100 07/05/20 20:00 96.0 111 27 130/64 (86) 60 07/05/20 20:00 34 Mechanical Ventilator 100 07/05/20 20:00 34 171/98 Mechanical Ventilator 100 07/05/20 19:45 118 119/68 (85) 49 07/05/20 19:30 119 33 176/78 (110) 43 07/05/20 19:15 118 32 185/90 (121) 83 07/05/20 19:00 114 27 172/72 (105) 85 07/05/20 19:00 33 Mechanical Ventilator 100 07/05/20 19:00 33 168/95 Mechanical Ventilator 100 07/05/20 18:36 33 158/73 Mechanical Ventilator 100 07/05/20 18:00 106 29 172/83 (112) 77 07/05/20 18:00 30 Mechanical Ventilator 100 07/05/20 18:00 30 158/73 Mechanical Ventilator 100 07/05/20 17:30 107 33 177/77 (110) 75 07/05/20 17:00 26 Mechanical Ventilator 100 07/05/20 17:00 26 101/54 Mechanical Ventilator 100 07/05/20 17:00 96 27 101/54 (70) 87 07/05/20 16:30 95 25 105/55 (72) 87 07/05/20 16:00 Mechanical Ventilator Mechanical Ventilator 07/05/20 16:00 99 07/05/20 16:00 26 Mechanical Ventilator 100 07/05/20 16:00 28 105/55 Mechanical Ventilator 100 07/05/20 16:00 100 07/05/20 16:00 98.4 100 27 129/65 (86) 87 07/05/20 15:30 99 28 134/66 (88) 87 07/05/20 15:09 87 27 100 07/05/20 15:00 26 Mechanical Ventilator 100 07/05/20 15:00 26 129/65 Mechanical Ventilator 100 07/05/20 15:00 102 26 134/64 (87) 85 07/05/20 14:30 103 28 126/59 (81) 86 07/05/20 14:00 101 28 102/53 (69) 86 07/05/20 14:00 26 Mechanical Ventilator 100 07/05/20 14:00 26 102/53 Mechanical Ventilator 100 07/05/20 13:30 97 26 112/56 (74) 88 07/05/20 13:00 100 26 113/59 (77) 89 07/05/20 13:00 26 Mechanical Ventilator 100 07/05/20 13:00 26 113/59 Mechanical Ventilator 100 07/05/20 12:30 98 27 115/61 (79) 88 07/05/20 12:00 99 07/05/20 12:00 98.5 101 29 101/52 (68) 88 07/05/20 12:00 Mechanical Ventilator Mechanical Ventilator 07/05/20 12:00 100 07/05/20 12:00 26 Mechanical Ventilator 100 07/05/20 12:00 29 101/52 Mechanical Ventilator 100 Height (Feet): 5 Height (Inches): 2.00 Weight (Pounds): 138 HEENT: other - intubated Laboratory Tests Test 07/05/20 20:14 07/06/20 05:45 07/06/20 08:29 Arterial Blood pH 7.391 (7.350-7.450) 7.395 (7.350-7.450) Arterial Blood Partial Pressure CO2 66.3 mmHg (35.0-45.0) *H 70.1 mmHg (35.0-45.0) *H Arterial Blood Partial Pressure O2 37.5 mmHg (75.0-100.0) 44.4 mmHg (75.0-100.0) Arterial Blood HCO3 39.3 mmol/L (22.0-26.0) H 42.0 mmol/L (22.0-26.0) *H Arterial Blood Oxygen Saturation 67.7 % (95-100) *L 78.5 % (95-100) *L Arterial Blood Base Excess 12.1 (-2-2) *H 14.6 (-2-2) *H Amrit Test Positive Positive White Blood Count 8.4 K/UL (4.8-10.8) Red Blood Count 3.13 M/UL (4.20-5.40) L Hemoglobin 9.6 G/DL (12.0-16.0) L Hematocrit 30.6 % (37.0-47.0) L Mean Corpuscular Volume 98 FL (80-99) Mean Corpuscular Hemoglobin 30.6 PG (27.0-31.0) Mean Corpuscular Hemoglobin Concent 31.3 G/DL (32.0-36.0) L Red Cell Distribution Width 16.0 % (11.6-14.8) H Platelet Count 105 K/UL (150-450) L Mean Platelet Volume 8.9 FL (6.5-10.1) Neutrophils (%) (Auto) 82.6 % (45.0-75.0) H Lymphocytes (%) (Auto) 11.3 % (20.0-45.0) L Monocytes (%) (Auto) 2.1 % (1.0-10.0) Eosinophils (%) (Auto) 3.5 % (0.0-3.0) H Basophils (%) (Auto) 0.5 % (0.0-2.0) Sodium Level 141 MMOL/L (136-145) Potassium Level 3.8 MMOL/L (3.5-5.1) Chloride Level 104 MMOL/L (98-107) Carbon Dioxide Level 38 MMOL/L (21-32) H Blood Urea Nitrogen 17 mg/dL (7-18) Creatinine 0.6 MG/DL (0.55-1.30) Estimat Glomerular Filtration Rate > 60 mL/min (>60) Glucose Level 131 MG/DL (74-106) H Uric Acid 1.7 MG/DL (2.6-7.2) L Calcium Level 7.6 MG/DL (8.5-10.1) L Phosphorus Level 2.7 MG/DL (2.5-4.9) Magnesium Level 2.1 MG/DL (1.8-2.4) Total Bilirubin 0.5 MG/DL (0.2-1.0) Gamma Glutamyl Transpeptidase 123 U/L (5-85) H Aspartate Amino Transf (AST/SGOT) 57 U/L (15-37) H Alanine Aminotransferase (ALT/SGPT) 52 U/L (12-78) Alkaline Phosphatase 150 U/L (46-116) H C-Reactive Protein, Quantitative 13.5 mg/dL (0.00-0.90) H Pro-B-Type Natriuretic Peptide 1297 pg/mL (0-125) H Total Protein 5.5 G/DL (6.4-8.2) L Albumin 1.0 G/DL (3.4-5.0) L Globulin 4.5 g/dL Albumin/Globulin Ratio 0.2 (1.0-2.7) L Current Medications Medications (Trade) Dose Ordered Sig/Maya Route PRN Reason Start Time Stop Time Status Last Admin Dose Admin Acetaminophen (Tylenol) 500 mg Q4H PRN ORAL Mild Pain (Pain Scale 1-3) 06/18/20 00:15 07/18/20 00:14 2/3/21 17:51 Acetaminophen (Tylenol) 500 mg Q4H PRN ORAL Temp >100.5 06/18/20 00:15 07/18/20 00:14 06/29/20 20:01 Carvedilol (Coreg) 6.25 mg EVERY 12 HOURS ORAL 06/22/20 21:00 07/22/20 20:59 07/05/20 21:00 Cefepime HCl 1 gm/ Dextrose 55 ml @ 110 mls/hr DAILY IVPB 07/04/20 09:00 07/08/20 12:00 07/06/20 08:43 Chlorhexidine Gluconate (Sissy-Hex 2%) 1 applic DAILY@2000 TOPIC 06/28/20 20:00 09/26/20 19:59 07/05/20 20:30 Dextrose (Dextrose 50%) 25 ml Q30M PRN IV Hypoglycemia 06/18/20 14:15 09/16/20 14:14 Dextrose (Dextrose 50%) 50 ml Q30M PRN IV Hypoglycemia 06/18/20 14:15 09/16/20 14:14 Docusate Sodium (Colace) 100 mg EVERY 8 HOURS NG 07/02/20 14:00 07/28/20 12:59 07/06/20 06:08 Fentanyl Citrate 250 ml @ 1 mls/hr Q24H IV 07/03/20 20:30 07/06/20 20:29 07/05/20 18:36 Furosemide (Lasix) 40 mg DAILY IV 06/28/20 17:45 07/28/20 16:59 07/05/20 08:48 Haloperidol Lactate (Haldol) 10 mg Q6H PRN IM Agitation 06/23/20 11:30 08/07/20 11:29 06/23/20 11:34 Insulin Aspart (NovoLOG) while NPO Q6HR SUBQ 06/18/20 18:00 09/16/20 17:59 07/06/20 00:26 Midazolam HCl 100 ml @ 0 mls/hr Q24H PRN IV To Patient Comfort 07/06/20 07:00 07/08/20 06:59 07/06/20 08:47 Pantoprazole (Protonix) 40 mg EVERY 12 HOURS IVP 06/18/20 21:00 07/18/20 20:59 07/06/20 08:43 Sodium Chloride 1,000 ml @ 50 mls/hr Q20H IV 06/26/20 08:00 07/26/20 07:59 07/06/20 08:43 Vitamin D (Vitamin D) 2,000 unit DAILY GT 06/29/20 10:30 07/29/20 10:29 07/06/20 08:43 Ernestina Coates MD Jul 06, 2020 11:50
--- NOTE | 2020-07-06 11:55 | Nephrology Progress Note ---
Assessment/Plan Problem List: (1) LEONARDO (acute kidney injury) (2) Dehydration (3) DMII (diabetes mellitus, type 2) (4) Pneumonia due to COVID-19 virus (5) Hypoxia Assessment 70-year-old female presents with COVID-19 pneumonia and hypoxia On admission has BUN of 77 and creatinine of 1.6. Renal failure most likely prerenal and dehydration with possible underlying chronic kidney disease Patient has elevated inflammatory markers Hypoalbuminemia Electrolyte abnormalities Hyperglycemia Plan July 06: Labs reviewed. Renal parameters stable. ABG suggests retaining of CO2. Patient continues to be on FiO2 100%. Has bilateral chest tubes. Remains intubated on ventilator. Continue to monitor renal parameters. July 05: No CHEM panel drawn today. Status quo. Pulmonary status unchanged. We will continue to monitor renal parameters and electrolytes. Continue per consultants. July 04: Status quo. On ventilator. Full code. Bilateral chest tube. Renal parameters stable. July 03: Patient remains full code. Intubated on ventilator. Has chest tube. Labs reviewed. Renal parameters stable. Continue per consultants. July 02: Remains intubated. Has a bilateral chest tube. He is full code. Labs reviewed. Abnormal electrolyte addressed. Continue per consultants. July 01: Remains intubated. Continues to have bilateral chest tube. Full code. Labs reviewed. Renal parameters stable. Low phosphorus addressed. Discussed with NORMAN Lyon. June 30: Full code. Intubated. Bilateral chest tube. As reviewed. Abnormal electrolytes addressed. June 29: Full code. Intubated. Bilateral chest tube. Unstable pulmonary status. ABG ordered. Electrolyte imbalance addressed. Discussed with NORMAN Montalvo. June 28: Labs reviewed. Abnormal electrolytes addressed. Patient remains full code. Continue per consultants. June 27: No chemistry panel done today. Remains full code. Medication list reviewed. Continue per consultants. Will monitor electrolytes and renal panel in a.m. June 26: Status quo. Remains full code. Labs reviewed. Main IV changed to normal saline 50 cc an hour. Continue per consultants and pulmonary. June 25: Remains intubated. Has bilateral chest tube. Full code. Labs reviewed. Abnormal electrolytes addressed. Albumin bolus given. Continue to monitor renal parameters. Poor prognosis. June 24: Patient in ICU. Intubated. Has bilateral chest tube. Labs reviewed. Renal parameters stable. Low phosphorus addressed. Continue per consultants. Full code. Poor prognosis. June 23: Patient in ICU. Intubated. Due for insertion of a chest tube. Has pneumothorax. Renal parameters are stable. Serum sodium rising. Will adjust IV fluid. Continue per consultants. Patient full code. Prognosis poor. June 22: Labs reviewed. Remains on BiPAP which is not changed to high flow oxygen due to pneumothorax found on chest x-ray. Serum sodium 155. Continues on D5W. Electrolytes within normal limits. Check 2D echocardiogram. Coreg for blood pressure and heart rate. June 21: Status quo. On BiPAP. Full code. Serum sodium 153. Continue D5W. Continue to monitor electrolytes. Continue per consultants. June 20: Patient full code. On BiPAP. Labs reviewed. Serum sodium rising. Will increase D5W to 75 cc an hour. Continue to monitor electrolytes. June 19: IV changed to D5W. Monitor blood sugar. Monitor electrolytes. Medication list reviewed. Patient is being treated for COVID-19 pneumonia. Patient is full code. Previously Pulmonary support IV antibiotics Slow hydration Avoid nephrotoxic Monitor renal parameters Per orders Subjective ROS Limited/Unobtainable: Yes Objective Objective Last 24 Hour Vital Signs Date Time Temp Pulse Resp B/P (MAP) Pulse Ox O2 Delivery O2 Flow Rate FiO2 07/06/20 10:00 105 26 129/68 (88) 79 07/06/20 09:45 102 26 96/53 (67) 77 07/06/20 09:30 100 24 94/51 (65) 80 07/06/20 09:00 101 21 108/63 (78) 81 07/06/20 08:47 23 Mechanical Ventilator 100 07/06/20 08:47 101 123/61 07/06/20 08:03 100 07/06/20 08:00 Mechanical Ventilator Mechanical Ventilator 07/06/20 08:00 98.2 100 23 101/56 (71) 87 07/06/20 08:00 100 07/06/20 07:30 98 24 91/50 (64) 84 07/06/20 07:16 100 24 100 07/06/20 07:00 100 26 95/55 (68) 85 07/06/20 06:00 99.5 100 25 94/52 (66) 87 07/06/20 06:00 23 Mechanical Ventilator 100 07/06/20 06:00 23 94/52 Mechanical Ventilator 100 07/06/20 05:45 101 25 93/54 (67) 87 07/06/20 05:38 102 23 100 07/06/20 05:30 102 24 94/56 (69) 88 07/06/20 05:15 103 25 100/61 (74) 87 07/06/20 05:00 103 25 106/63 (77) 87 07/06/20 05:00 25 Mechanical Ventilator 100 07/06/20 05:00 25 106/63 Mechanical Ventilator 100 07/06/20 04:45 98.3 103 25 97/59 (72) 86 07/06/20 04:30 104 26 98/59 (72) 86 07/06/20 04:15 105 25 101/64 (76) 85 07/06/20 04:00 105 23 86/53 (64) 86 07/06/20 04:00 23 Mechanical Ventilator 100 07/06/20 04:00 23 86/53 Mechanical Ventilator 100 07/06/20 04:00 100 07/06/20 04:00 Mechanical Ventilator Mechanical Ventilator 07/06/20 03:57 104 07/06/20 03:45 104 24 90/50 (63) 87 07/06/20 03:30 104 23 97/57 (70) 87 07/06/20 03:29 103 22 100 07/06/20 03:15 106 24 88/55 (66) 88 07/06/20 03:00 21 Mechanical Ventilator 100 07/06/20 03:00 21 90/56 Mechanical Ventilator 100 07/06/20 03:00 99.4 106 21 90/56 (67) 89 07/06/20 02:45 106 22 98/55 (69) 88 07/06/20 02:30 107 21 116/68 (84) 68 07/06/20 02:15 96.0 111 24 93/53 (66) 88 07/06/20 02:00 114 25 87/59 (68) 88 07/06/20 02:00 25 Mechanical Ventilator 100 07/06/20 02:00 25 87/59 Mechanical Ventilator 100 07/06/20 01:48 109 22 100 07/06/20 01:45 100.4 116 23 96/56 (69) 87 07/06/20 01:30 118 23 94/57 (69) 86 07/06/20 01:15 120 24 99/60 (73) 85 07/06/20 01:00 103.1 121 23 106/68 (81) 84 07/06/20 01:00 27 Mechanical Ventilator 100 07/06/20 01:00 27 106/68 Mechanical Ventilator 100 07/06/20 00:48 100 07/06/20 00:45 123 27 115/60 (78) 80 07/06/20 00:30 125 28 118/64 (82) 77 07/06/20 00:15 125 29 111/52 (71) 75 07/06/20 00:00 Mechanical Ventilator Mechanical Ventilator 07/06/20 00:00 102.8 126 28 108/56 (73) 74 07/06/20 00:00 28 Mechanical Ventilator 100 07/06/20 00:00 28 108/56 Mechanical Ventilator 100 07/05/20 23:46 126 07/05/20 23:45 126 28 104/57 (73) 74 07/05/20 23:30 127 27 107/55 (72) 75 07/05/20 23:18 128 25 100 07/05/20 23:15 128 25 98/61 (73) 75 07/05/20 23:00 27 Mechanical Ventilator 100 07/05/20 23:00 27 107/55 Mechanical Ventilator 100 07/05/20 23:00 127 22 105/61 (76) 76 07/05/20 22:45 126 22 101/59 (73) 67 07/05/20 22:30 126 30 104/59 (74) 62 07/05/20 22:15 126 28 101/60 (74) 57 07/05/20 22:06 29 Mechanical Ventilator 100 07/05/20 22:00 22 105/61 Mechanical Ventilator 100 07/05/20 22:00 125 29 104/60 (75) 55 07/05/20 21:45 124 29 104/59 (74) 56 07/05/20 21:30 125 31 111/60 (77) 53 07/05/20 21:15 126 32 158/63 (94) 52 07/05/20 21:00 123 31 135/69 (91) 55 07/05/20 21:00 100 07/05/20 21:00 29 Mechanical Ventilator 100 07/05/20 21:00 29 104/52 Mechanical Ventilator 100 07/05/20 21:00 112 127/65 07/05/20 20:51 112 07/05/20 20:49 120 28 100 07/05/20 20:45 118 30 118/62 (80) 54 07/05/20 20:30 118 29 121/61 (81) 55 07/05/20 20:15 115 29 121/64 (83) 61 07/05/20 20:00 Mechanical Ventilator Mechanical Ventilator 07/05/20 20:00 100 07/05/20 20:00 96.0 111 27 130/64 (86) 60 07/05/20 20:00 34 Mechanical Ventilator 100 07/05/20 20:00 34 171/98 Mechanical Ventilator 100 07/05/20 19:45 118 119/68 (85) 49 07/05/20 19:30 119 33 176/78 (110) 43 07/05/20 19:15 118 32 185/90 (121) 83 07/05/20 19:00 114 27 172/72 (105) 85 07/05/20 19:00 33 Mechanical Ventilator 100 07/05/20 19:00 33 168/95 Mechanical Ventilator 100 07/05/20 18:36 33 158/73 Mechanical Ventilator 100 07/05/20 18:00 106 29 172/83 (112) 77 07/05/20 18:00 30 Mechanical Ventilator 100 07/05/20 18:00 30 158/73 Mechanical Ventilator 100 07/05/20 17:30 107 33 177/77 (110) 75 07/05/20 17:00 26 Mechanical Ventilator 100 07/05/20 17:00 26 101/54 Mechanical Ventilator 100 07/05/20 17:00 96 27 101/54 (70) 87 07/05/20 16:30 95 25 105/55 (72) 87 07/05/20 16:00 Mechanical Ventilator Mechanical Ventilator 07/05/20 16:00 99 07/05/20 16:00 26 Mechanical Ventilator 100 07/05/20 16:00 28 105/55 Mechanical Ventilator 100 07/05/20 16:00 100 07/05/20 16:00 98.4 100 27 129/65 (86) 87 07/05/20 15:30 99 28 134/66 (88) 87 07/05/20 15:09 87 27 100 07/05/20 15:00 26 Mechanical Ventilator 100 07/05/20 15:00 26 129/65 Mechanical Ventilator 100 07/05/20 15:00 102 26 134/64 (87) 85 07/05/20 14:30 103 28 126/59 (81) 86 07/05/20 14:00 101 28 102/53 (69) 86 07/05/20 14:00 26 Mechanical Ventilator 100 07/05/20 14:00 26 102/53 Mechanical Ventilator 100 07/05/20 13:30 97 26 112/56 (74) 88 07/05/20 13:00 100 26 113/59 (77) 89 07/05/20 13:00 26 Mechanical Ventilator 100 07/05/20 13:00 26 113/59 Mechanical Ventilator 100 07/05/20 12:30 98 27 115/61 (79) 88 07/05/20 12:00 99 07/05/20 12:00 98.5 101 29 101/52 (68) 88 07/05/20 12:00 Mechanical Ventilator Mechanical Ventilator 07/05/20 12:00 100 07/05/20 12:00 26 Mechanical Ventilator 100 07/05/20 12:00 29 101/52 Mechanical Ventilator 100 Intake and Output 07/05/20 07/06/20 19:00 07:00 Intake Total 1726.0 ml 1520 ml Output Total 1816 ml 460 ml Balance -90.0 ml 1060 ml Intake Free Water 280 ml 100 ml IV Total 786.0 ml 760 ml Tube Feeding 660 ml 660 ml Output Urine Total 1730 ml 310 ml Chest Tube Drainage Total 86 ml 150 ml Current Medications Medications (Trade) Dose Ordered Sig/Maya Route PRN Reason Start Time Stop Time Status Last Admin Dose Admin Acetaminophen (Tylenol) 500 mg Q4H PRN ORAL Mild Pain (Pain Scale 1-3) 06/18/20 00:15 07/18/20 00:14 06/24/20 17:51 Acetaminophen (Tylenol) 500 mg Q4H PRN ORAL Temp >100.5 06/18/20 00:15 07/18/20 00:14 06/29/20 20:01 Carvedilol (Coreg) 6.25 mg EVERY 12 HOURS ORAL 06/22/20 21:00 07/22/20 20:59 07/05/20 21:00 Cefepime HCl 1 gm/ Dextrose 55 ml @ 110 mls/hr DAILY IVPB 07/04/20 09:00 07/08/20 12:00 07/06/20 08:43 Chlorhexidine Gluconate (Sissy-Hex 2%) 1 applic DAILY@2000 TOPIC 06/28/20 20:00 09/26/20 19:59 07/05/20 20:30 Dextrose (Dextrose 50%) 25 ml Q30M PRN IV Hypoglycemia 06/18/20 14:15 09/16/20 14:14 Dextrose (Dextrose 50%) 50 ml Q30M PRN IV Hypoglycemia 06/18/20 14:15 09/16/20 14:14 Docusate Sodium (Colace) 100 mg EVERY 8 HOURS NG 07/02/20 14:00 07/28/20 12:59 07/06/20 06:08 Fentanyl Citrate 250 ml @ 1 mls/hr Q24H IV 07/03/20 20:30 07/06/20 20:29 07/05/20 18:36 Furosemide (Lasix) 40 mg DAILY IV 06/28/20 17:45 07/28/20 16:59 07/05/20 08:48 Haloperidol Lactate (Haldol) 10 mg Q6H PRN IM Agitation 06/23/20 11:30 08/07/20 11:29 06/23/20 11:34 Insulin Aspart (NovoLOG) while NPO Q6HR SUBQ 06/18/20 18:00 09/16/20 17:59 07/06/20 00:26 Midazolam HCl 100 ml @ 0 mls/hr Q24H PRN IV To Patient Comfort 07/06/20 07:00 07/08/20 06:59 07/06/20 08:47 Pantoprazole (Protonix) 40 mg EVERY 12 HOURS IVP 06/18/20 21:00 07/18/20 20:59 07/06/20 08:43 Sodium Chloride 1,000 ml @ 50 mls/hr Q20H IV 06/26/20 08:00 07/26/20 07:59 07/06/20 08:43 Vitamin D (Vitamin D) 2,000 unit DAILY GT 06/29/20 10:30 07/29/20 10:29 07/06/20 08:43 Laboratory Tests 07/05/20 20:14: Arterial Blood pH 7.391, Arterial Blood Partial Pressure CO2 66.3*H, Arterial Blood Partial Pressure O2 37.5*L, Arterial Blood HCO3 39.3H, Arterial Blood Oxygen Saturation 67.7*L, Arterial Blood Base Excess 12.1*H, Amrit Test Positive 07/06/20 05:45: White Blood Count 8.4, Red Blood Count 3.13L, Hemoglobin 9.6L, Hematocrit 30.6L, Mean Corpuscular Volume 98, Mean Corpuscular Hemoglobin 30.6, Mean Corpuscular Hemoglobin Concent 31.3L, Red Cell Distribution Width 16.0H, Platelet Count 105L , Mean Platelet Volume 8.9, Neutrophils (%) (Auto) 82.6H, Lymphocytes (%) (Auto) 11.3L, Monocytes (%) (Auto) 2.1, Eosinophils (%) (Auto) 3.5H, Basophils (%) (Aut o) 0.5, Sodium Level 141, Potassium Level 3.8, Chloride Level 104, Carbon Dioxide Level 38H, Blood Urea Nitrogen 17, Creatinine 0.6, Estimat Glomerular Filtration Rate > 60, Glucose Level 131H, Uric Acid 1.7L, Calcium Level 7.6L, Phosphorus Level 2.7, Magnesium Level 2.1, Total Bilirubin 0.5, Gamma Glutamyl Transpeptidase 123H, Aspartate Amino Transf (AST/SGOT) 57H, Alanine Aminotran sferase (ALT/SGPT) 52, Alkaline Phosphatase 150H, C-Reactive Protein, Quantitative 13.5H, Pro-B-Type Natriuretic Peptide 1297H, Total Protein 5.5L, Albumin 1.0L, Globulin 4.5, Albumin/Globulin Ratio 0.2L 07/06/20 08:29: Arterial Blood pH 7.395, Arterial Blood Partial Pressure CO2 70.1*H, Arterial Blood Partial Pressure O2 44.4*L, Arterial Blood HCO3 42.0*H, Arterial Blood Oxygen Saturation 78.5*L, Arterial Blood Base Excess 14.6*H, Amrit Test Positive Height (Feet): 5 Height (Inches): 2.00 Weight (Pounds): 138 General Appearance: mild distress EENT: other - Intubated on ventilator Cardiovascular: tachycardia Respiratory/Chest: decreased breath sounds Abdomen: distended Raza De Jesus MD Jul 06, 2020 11:55
--- NOTE | 2020-07-06 12:05 | NUR ---
NURSE NOTES: Pt's BG checked, 149, insulin given per sliding scale order. No signs of distress noted, will continue to monitor pt.
--- NOTE | 2020-07-06 13:08 | General Progress Note ---
Subjective ROS Limited/Unobtainable: Yes Allergies: Coded Allergies: No Known Allergies (Unverified , 06/17/20) Objective Last 24 Hour Vital Signs Date Time Temp Pulse Resp B/P (MAP) Pulse Ox O2 Delivery O2 Flow Rate FiO2 07/06/20 12:14 110 07/06/20 12:00 Mechanical Ventilator Mechanical Ventilator 07/06/20 12:00 100 07/06/20 12:00 99.6 111 28 120/69 (86) 78 07/06/20 11:45 106 27 102/54 (70) 81 07/06/20 11:30 105 23 101/59 (73) 83 07/06/20 11:00 109 21 122/68 (86) 84 07/06/20 10:00 105 26 129/68 (88) 79 07/06/20 09:45 102 26 96/53 (67) 77 07/06/20 09:30 100 24 94/51 (65) 80 07/06/20 09:00 101 21 108/63 (78) 81 07/06/20 08:47 23 Mechanical Ventilator 100 07/06/20 08:47 101 123/61 07/06/20 08:03 100 07/06/20 08:00 Mechanical Ventilator Mechanical Ventilator 07/06/20 08:00 98.2 100 23 101/56 (71) 87 07/06/20 08:00 100 07/06/20 07:30 98 24 91/50 (64) 84 07/06/20 07:16 100 24 100 07/06/20 07:00 100 26 95/55 (68) 85 07/06/20 06:00 99.5 100 25 94/52 (66) 87 07/06/20 06:00 23 Mechanical Ventilator 100 07/06/20 06:00 23 94/52 Mechanical Ventilator 100 07/06/20 05:45 101 25 93/54 (67) 87 07/06/20 05:38 102 23 100 07/06/20 05:30 102 24 94/56 (69) 88 07/06/20 05:15 103 25 100/61 (74) 87 07/06/20 05:00 103 25 106/63 (77) 87 07/06/20 05:00 25 Mechanical Ventilator 100 07/06/20 05:00 25 106/63 Mechanical Ventilator 100 07/06/20 04:45 98.3 103 25 97/59 (72) 86 07/06/20 04:30 104 26 98/59 (72) 86 07/06/20 04:15 105 25 101/64 (76) 85 07/06/20 04:00 105 23 86/53 (64) 86 07/06/20 04:00 23 Mechanical Ventilator 100 07/06/20 04:00 23 86/53 Mechanical Ventilator 100 07/06/20 04:00 100 07/06/20 04:00 Mechanical Ventilator Mechanical Ventilator 07/06/20 03:57 104 07/06/20 03:45 104 24 90/50 (63) 87 07/06/20 03:30 104 23 97/57 (70) 87 07/06/20 03:29 103 22 100 07/06/20 03:15 106 24 88/55 (66) 88 07/06/20 03:00 21 Mechanical Ventilator 100 07/06/20 03:00 21 90/56 Mechanical Ventilator 100 07/06/20 03:00 99.4 106 21 90/56 (67) 89 07/06/20 02:45 106 22 98/55 (69) 88 07/06/20 02:30 107 21 116/68 (84) 68 07/06/20 02:15 96.0 111 24 93/53 (66) 88 07/06/20 02:00 114 25 87/59 (68) 88 07/06/20 02:00 25 Mechanical Ventilator 100 07/06/20 02:00 25 87/59 Mechanical Ventilator 100 07/06/20 01:48 109 22 100 07/06/20 01:45 100.4 116 23 96/56 (69) 87 07/06/20 01:30 118 23 94/57 (69) 86 07/06/20 01:15 120 24 99/60 (73) 85 07/06/20 01:00 103.1 121 23 106/68 (81) 84 07/06/20 01:00 27 Mechanical Ventilator 100 07/06/20 01:00 27 106/68 Mechanical Ventilator 100 07/06/20 00:48 100 07/06/20 00:45 123 27 115/60 (78) 80 07/06/20 00:30 125 28 118/64 (82) 77 07/06/20 00:15 125 29 111/52 (71) 75 07/06/20 00:00 Mechanical Ventilator Mechanical Ventilator 07/06/20 00:00 102.8 126 28 108/56 (73) 74 07/06/20 00:00 28 Mechanical Ventilator 100 07/06/20 00:00 28 108/56 Mechanical Ventilator 100 07/05/20 23:46 126 07/05/20 23:45 126 28 104/57 (73) 74 07/05/20 23:30 127 27 107/55 (72) 75 07/05/20 23:18 128 25 100 07/05/20 23:15 128 25 98/61 (73) 75 07/05/20 23:00 27 Mechanical Ventilator 100 07/05/20 23:00 27 107/55 Mechanical Ventilator 100 07/05/20 23:00 127 22 105/61 (76) 76 07/05/20 22:45 126 22 101/59 (73) 67 07/05/20 22:30 126 30 104/59 (74) 62 07/05/20 22:15 126 28 101/60 (74) 57 07/05/20 22:06 29 Mechanical Ventilator 100 07/05/20 22:00 22 105/61 Mechanical Ventilator 100 07/05/20 22:00 125 29 104/60 (75) 55 07/05/20 21:45 124 29 104/59 (74) 56 07/05/20 21:30 125 31 111/60 (77) 53 07/05/20 21:15 126 32 158/63 (94) 52 07/05/20 21:00 123 31 135/69 (91) 55 07/05/20 21:00 100 07/05/20 21:00 29 Mechanical Ventilator 100 07/05/20 21:00 29 104/52 Mechanical Ventilator 100 07/05/20 21:00 112 127/65 07/05/20 20:51 112 07/05/20 20:49 120 28 100 07/05/20 20:45 118 30 118/62 (80) 54 07/05/20 20:30 118 29 121/61 (81) 55 07/05/20 20:15 115 29 121/64 (83) 61 07/05/20 20:00 Mechanical Ventilator Mechanical Ventilator 07/05/20 20:00 100 07/05/20 20:00 96.0 111 27 130/64 (86) 60 07/05/20 20:00 34 Mechanical Ventilator 100 07/05/20 20:00 34 171/98 Mechanical Ventilator 100 07/05/20 19:45 118 119/68 (85) 49 07/05/20 19:30 119 33 176/78 (110) 43 07/05/20 19:15 118 32 185/90 (121) 83 07/05/20 19:00 114 27 172/72 (105) 85 07/05/20 19:00 33 Mechanical Ventilator 100 07/05/20 19:00 33 168/95 Mechanical Ventilator 100 07/05/20 18:36 33 158/73 Mechanical Ventilator 100 07/05/20 18:00 106 29 172/83 (112) 77 07/05/20 18:00 30 Mechanical Ventilator 100 07/05/20 18:00 30 158/73 Mechanical Ventilator 100 07/05/20 17:30 107 33 177/77 (110) 75 07/05/20 17:00 26 Mechanical Ventilator 100 07/05/20 17:00 26 101/54 Mechanical Ventilator 100 07/05/20 17:00 96 27 101/54 (70) 87 07/05/20 16:30 95 25 105/55 (72) 87 07/05/20 16:00 Mechanical Ventilator Mechanical Ventilator 07/05/20 16:00 99 07/05/20 16:00 26 Mechanical Ventilator 100 07/05/20 16:00 28 105/55 Mechanical Ventilator 100 07/05/20 16:00 100 07/05/20 16:00 98.4 100 27 129/65 (86) 87 07/05/20 15:30 99 28 134/66 (88) 87 07/05/20 15:09 87 27 100 07/05/20 15:00 26 Mechanical Ventilator 100 07/05/20 15:00 26 129/65 Mechanical Ventilator 100 07/05/20 15:00 102 26 134/64 (87) 85 07/05/20 14:30 103 28 126/59 (81) 86 07/05/20 14:00 101 28 102/53 (69) 86 07/05/20 14:00 26 Mechanical Ventilator 100 07/05/20 14:00 26 102/53 Mechanical Ventilator 100 07/05/20 13:30 97 26 112/56 (74) 88 Intake and Output 07/05/20 07/06/20 19:00 07:00 Intake Total 1726.0 ml 1520 ml Output Total 1816 ml 460 ml Balance -90.0 ml 1060 ml Intake Free Water 280 ml 100 ml IV Total 786.0 ml 760 ml Tube Feeding 660 ml 660 ml Output Urine Total 1730 ml 310 ml Chest Tube Drainage Total 86 ml 150 ml Laboratory Tests 07/05/20 20:14: Arterial Blood pH 7.391, Arterial Blood Partial Pressure CO2 66.3*H, Arterial Blood Partial Pressure O2 37.5*L, Arterial Blood HCO3 39.3H, Arterial Blood Oxygen Saturation 67.7*L, Arterial Blood Base Excess 12.1*H, Amrit Test Positive 07/06/20 05:45: White Blood Count 8.4, Red Blood Count 3.13L, Hemoglobin 9.6L, Hematocrit 30.6L, Mean Corpuscular Volume 98, Mean Corpuscular Hemoglobin 30.6, Mean Corpuscular Hemoglobin Concent 31.3L, Red Cell Distribution Width 16.0H, Platelet Count 105L , Mean Platelet Volume 8.9, Neutrophils (%) (Auto) 82.6H, Lymphocytes (%) (Auto) 11.3L, Monocytes (%) (Auto) 2.1, Eosinophils (%) (Auto) 3.5H, Basophils (%) (Auto) 0.5, Sodium Level 141, Potassium Level 3.8, Chloride Level 104, Carbon Dioxide Level 38H, Blood Urea Nitrogen 17, Creatinine 0.6, Estimat Glomerular Filtration Rate > 60, Glucose Level 131H, Uric Acid 1.7L, Calcium Level 7.6L, Phosphorus Level 2.7, Magnesium Level 2.1, Total Bilirubin 0.5, Gamma Glutamyl Transpeptidase 123H, Aspartate Amino Transf (AST/SGOT) 57H, Alanine Aminotransferase (ALT/SGPT) 52, Alkaline Phosphatase 150H, C-Reactive Protein, Quantitative 13.5H, Pro-B-Type Natriuretic Peptide 1297H, Total Protein 5.5L, Albumin 1.0L, Globulin 4.5, Albumin/Globulin Ratio 0.2L 07/06/20 08:29: Arterial Blood pH 7.395, Arterial Blood Partial Pressure CO2 70.1*H, Arterial Blood Partial Pressure O2 44.4*L, Arterial Blood HCO3 42.0*H, Arterial Blood Oxygen Saturation 78.5*L, Arterial Blood Base Excess 14.6*H, Amrit Test Positive Height (Feet): 5 Height (Inches): 2.00 Weight (Pounds): 138 Assessment/Plan Problem List: (1) Elevated d-dimer ICD Codes: R79.89 - Other specified abnormal findings of blood chemistry SNOMED: 020207938 (2) Renal insufficiency ICD Codes: N28.9 - Disorder of kidney and ureter, unspecified SNOMED: 337855511, 216215291 (3) PNA (pneumonia) ICD Codes: J18.9 - Pneumonia, unspecified organism SNOMED: 713452467 (4) Dehydration ICD Codes: E86.0 - Dehydration SNOMED: 55018260 (5) LEONARDO (acute kidney injury) ICD Codes: N17.9 - Acute kidney failure, unspecified SNOMED: 3773072, 06700260 (6) Hypoxia ICD Codes: R09.02 - Hypoxemia; J12.82 - Pneumonia due to coronavirus disease 2019 SNOMED: 975508299 (7) Pneumonia due to COVID-19 virus ICD Codes: U07.1 - COVID-19; J12.82 - Pneumonia due to coronavirus disease 2019 SNOMED: 813459645837983555 (8) DMII (diabetes mellitus, type 2) ICD Codes: E11.9 - Type 2 diabetes mellitus without complications SNOMED: 33680144 Status: progressing, unchanged Assessment/Plan: covid + trach per dr thompson not improving check sugar poor prognosis intubated niddm azotemia Vidya Clayton MD Jul 06, 2020 13:08
--- NOTE | 2020-07-06 13:15 | Surgery Progress Note ---
Surgery Progress Note Subjective Procedure Performed 1. right chest tube insertion 2. left chest tube insertion Additional Comments ill appearing on support no n/v ptx <10% now tubes okay and functional new pleuravac functional prognosis guarded Objective Last 24 Hour Vital Signs Date Time Temp Pulse Resp B/P (MAP) Pulse Ox O2 Delivery O2 Flow Rate FiO2 07/06/20 12:14 110 07/06/20 12:00 Mechanical Ventilator Mechanical Ventilator 07/06/20 12:00 100 07/06/20 12:00 99.6 111 28 120/69 (86) 78 07/06/20 11:45 106 27 102/54 (70) 81 07/06/20 11:30 105 23 101/59 (73) 83 07/06/20 11:00 109 21 122/68 (86) 84 07/06/20 10:00 105 26 129/68 (88) 79 07/06/20 09:45 102 26 96/53 (67) 77 07/06/20 09:30 100 24 94/51 (65) 80 07/06/20 09:00 101 21 108/63 (78) 81 07/06/20 08:47 23 Mechanical Ventilator 100 07/06/20 08:47 101 123/61 07/06/20 08:03 100 07/06/20 08:00 Mechanical Ventilator Mechanical Ventilator 07/06/20 08:00 98.2 100 23 101/56 (71) 87 07/06/20 08:00 100 07/06/20 07:30 98 24 91/50 (64) 84 07/06/20 07:16 100 24 100 07/06/20 07:00 100 26 95/55 (68) 85 07/06/20 06:00 99.5 100 25 94/52 (66) 87 07/06/20 06:00 23 Mechanical Ventilator 100 07/06/20 06:00 23 94/52 Mechanical Ventilator 100 07/06/20 05:45 101 25 93/54 (67) 87 07/06/20 05:38 102 23 100 07/06/20 05:30 102 24 94/56 (69) 88 07/06/20 05:15 103 25 100/61 (74) 87 07/06/20 05:00 103 25 106/63 (77) 87 07/06/20 05:00 25 Mechanical Ventilator 100 07/06/20 05:00 25 106/63 Mechanical Ventilator 100 07/06/20 04:45 98.3 103 25 97/59 (72) 86 07/06/20 04:30 104 26 98/59 (72) 86 07/06/20 04:15 105 25 101/64 (76) 85 07/06/20 04:00 105 23 86/53 (64) 86 07/06/20 04:00 23 Mechanical Ventilator 100 07/06/20 04:00 23 86/53 Mechanical Ventilator 100 07/06/20 04:00 100 07/06/20 04:00 Mechanical Ventilator Mechanical Ventilator 07/06/20 03:57 104 07/06/20 03:45 104 24 90/50 (63) 87 07/06/20 03:30 104 23 97/57 (70) 87 07/06/20 03:29 103 22 100 07/06/20 03:15 106 24 88/55 (66) 88 07/06/20 03:00 21 Mechanical Ventilator 100 07/06/20 03:00 21 90/56 Mechanical Ventilator 100 07/06/20 03:00 99.4 106 21 90/56 (67) 89 07/06/20 02:45 106 22 98/55 (69) 88 07/06/20 02:30 107 21 116/68 (84) 68 07/06/20 02:15 96.0 111 24 93/53 (66) 88 07/06/20 02:00 114 25 87/59 (68) 88 07/06/20 02:00 25 Mechanical Ventilator 100 07/06/20 02:00 25 87/59 Mechanical Ventilator 100 07/06/20 01:48 109 22 100 07/06/20 01:45 100.4 116 23 96/56 (69) 87 07/06/20 01:30 118 23 94/57 (69) 86 07/06/20 01:15 120 24 99/60 (73) 85 07/06/20 01:00 103.1 121 23 106/68 (81) 84 07/06/20 01:00 27 Mechanical Ventilator 100 07/06/20 01:00 27 106/68 Mechanical Ventilator 100 07/06/20 00:48 100 07/06/20 00:45 123 27 115/60 (78) 80 07/06/20 00:30 125 28 118/64 (82) 77 07/06/20 00:15 125 29 111/52 (71) 75 07/06/20 00:00 Mechanical Ventilator Mechanical Ventilator 07/06/20 00:00 102.8 126 28 108/56 (73) 74 07/06/20 00:00 28 Mechanical Ventilator 100 07/06/20 00:00 28 108/56 Mechanical Ventilator 100 07/05/20 23:46 126 07/05/20 23:45 126 28 104/57 (73) 74 07/05/20 23:30 127 27 107/55 (72) 75 07/05/20 23:18 128 25 100 07/05/20 23:15 128 25 98/61 (73) 75 07/05/20 23:00 27 Mechanical Ventilator 100 07/05/20 23:00 27 107/55 Mechanical Ventilator 100 07/05/20 23:00 127 22 105/61 (76) 76 07/05/20 22:45 126 22 101/59 (73) 67 07/05/20 22:30 126 30 104/59 (74) 62 07/05/20 22:15 126 28 101/60 (74) 57 07/05/20 22:06 29 Mechanical Ventilator 100 07/05/20 22:00 22 105/61 Mechanical Ventilator 100 07/05/20 22:00 125 29 104/60 (75) 55 07/05/20 21:45 124 29 104/59 (74) 56 07/05/20 21:30 125 31 111/60 (77) 53 07/05/20 21:15 126 32 158/63 (94) 52 07/05/20 21:00 123 31 135/69 (91) 55 07/05/20 21:00 100 07/05/20 21:00 29 Mechanical Ventilator 100 07/05/20 21:00 29 104/52 Mechanical Ventilator 100 07/05/20 21:00 112 127/65 07/05/20 20:51 112 07/05/20 20:49 120 28 100 07/05/20 20:45 118 30 118/62 (80) 54 07/05/20 20:30 118 29 121/61 (81) 55 07/05/20 20:15 115 29 121/64 (83) 61 07/05/20 20:00 Mechanical Ventilator Mechanical Ventilator 07/05/20 20:00 100 07/05/20 20:00 96.0 111 27 130/64 (86) 60 07/05/20 20:00 34 Mechanical Ventilator 100 07/05/20 20:00 34 171/98 Mechanical Ventilator 100 07/05/20 19:45 118 119/68 (85) 49 07/05/20 19:30 119 33 176/78 (110) 43 07/05/20 19:15 118 32 185/90 (121) 83 07/05/20 19:00 114 27 172/72 (105) 85 07/05/20 19:00 33 Mechanical Ventilator 100 07/05/20 19:00 33 168/95 Mechanical Ventilator 100 07/05/20 18:36 33 158/73 Mechanical Ventilator 100 07/05/20 18:00 106 29 172/83 (112) 77 07/05/20 18:00 30 Mechanical Ventilator 100 07/05/20 18:00 30 158/73 Mechanical Ventilator 100 07/05/20 17:30 107 33 177/77 (110) 75 07/05/20 17:00 26 Mechanical Ventilator 100 07/05/20 17:00 26 101/54 Mechanical Ventilator 100 07/05/20 17:00 96 27 101/54 (70) 87 07/05/20 16:30 95 25 105/55 (72) 87 07/05/20 16:00 Mechanical Ventilator Mechanical Ventilator 07/05/20 16:00 99 07/05/20 16:00 26 Mechanical Ventilator 100 07/05/20 16:00 28 105/55 Mechanical Ventilator 100 07/05/20 16:00 100 07/05/20 16:00 98.4 100 27 129/65 (86) 87 07/05/20 15:30 99 28 134/66 (88) 87 07/05/20 15:09 87 27 100 07/05/20 15:00 26 Mechanical Ventilator 100 07/05/20 15:00 26 129/65 Mechanical Ventilator 100 07/05/20 15:00 102 26 134/64 (87) 85 07/05/20 14:30 103 28 126/59 (81) 86 07/05/20 14:00 101 28 102/53 (69) 86 07/05/20 14:00 26 Mechanical Ventilator 100 07/05/20 14:00 26 102/53 Mechanical Ventilator 100 07/05/20 13:30 97 26 112/56 (74) 88 I&O Intake and Output 07/05/20 07/06/20 19:00 07:00 Intake Total 1726.0 ml 1520 ml Output Total 1816 ml 460 ml Balance -90.0 ml 1060 ml Intake Free Water 280 ml 100 ml IV Total 786.0 ml 760 ml Tube Feeding 660 ml 660 ml Output Urine Total 1730 ml 310 ml Chest Tube Drainage Total 86 ml 150 ml Dressing: saturated Cardiovascular: RSR Respiratory: decreased breath sounds Abdomen: soft, non-tender, present bowel sounds, non-distended Extremities: no tenderness, no cyanosis Laboratory Tests Test 07/05/20 20:14 07/06/20 05:45 07/06/20 08:29 Arterial Blood pH 7.391 (7.350-7.450) 7.395 (7.350-7.450) Arterial Blood Partial Pressure CO2 66.3 mmHg (35.0-45.0) *H 70.1 mmHg (35.0-45.0) *H Arterial Blood Partial Pressure O2 37.5 mmHg (75.0-100.0) 44.4 mmHg (75.0-100.0) Arterial Blood HCO3 39.3 mmol/L (22.0-26.0) H 42.0 mmol/L (22.0-26.0) *H Arterial Blood Oxygen Saturation 67.7 % (95-100) *L 78.5 % (95-100) *L Arterial Blood Base Excess 12.1 (-2-2) *H 14.6 (-2-2) *H Amrit Test Positive Positive White Blood Count 8.4 K/UL (4.8-10.8) Red Blood Count 3.13 M/UL (4.20-5.40) L Hemoglobin 9.6 G/DL (12.0-16.0) L Hematocrit 30.6 % (37.0-47.0) L Mean Corpuscular Volume 98 FL (80-99) Mean Corpuscular Hemoglobin 30.6 PG (27.0-31.0) Mean Corpuscular Hemoglobin Concent 31.3 G/DL (32.0-36.0) L Red Cell Distribution Width 16.0 % (11.6-14.8) H Platelet Count 105 K/UL (150-450) L Mean Platelet Volume 8.9 FL (6.5-10.1) Neutrophils (%) (Auto) 82.6 % (45.0-75.0) H Lymphocytes (%) (Auto) 11.3 % (20.0-45.0) L Monocytes (%) (Auto) 2.1 % (1.0-10.0) Eosinophils (%) (Auto) 3.5 % (0.0-3.0) H Basophils (%) (Auto) 0.5 % (0.0-2.0) Sodium Level 141 MMOL/L (136-145) Potassium Level 3.8 MMOL/L (3.5-5.1) Chloride Level 104 MMOL/L (98-107) Carbon Dioxide Level 38 MMOL/L (21-32) H Blood Urea Nitrogen 17 mg/dL (7-18) Creatinine 0.6 MG/DL (0.55-1.30) Estimat Glomerular Filtration Rate > 60 mL/min (>60) Glucose Level 131 MG/DL (74-106) H Uric Acid 1.7 MG/DL (2.6-7.2) L Calcium Level 7.6 MG/DL (8.5-10.1) L Phosphorus Level 2.7 MG/DL (2.5-4.9) Magnesium Level 2.1 MG/DL (1.8-2.4) Total Bilirubin 0.5 MG/DL (0.2-1.0) Gamma Glutamyl Transpeptidase 123 U/L (5-85) H Aspartate Amino Transf (AST/SGOT) 57 U/L (15-37) H Alanine Aminotransferase (ALT/SGPT) 52 U/L (12-78) Alkaline Phosphatase 150 U/L (46-116) H C-Reactive Protein, Quantitative 13.5 mg/dL (0.00-0.90) H Pro-B-Type Natriuretic Peptide 1297 pg/mL (0-125) H Total Protein 5.5 G/DL (6.4-8.2) L Albumin 1.0 G/DL (3.4-5.0) L Globulin 4.5 g/dL Albumin/Globulin Ratio 0.2 (1.0-2.7) L Plan Problems: (1) Renal insufficiency (2) Elevated d-dimer (3) Dehydration (4) LEONARDO (acute kidney injury) (5) DMII (diabetes mellitus, type 2) (6) Hypoxia (7) Pneumonia due to COVID-19 virus (8) PNA (pneumonia) (9) Pneumothorax Assessment & Plan: Bilateral pneumothorax status post bilateral chest tubes. Still on significant vent support. leak performed. Continue weaning vent. Continue with chest tubes. Will monitor and manage chest tubes accordingly. Thank you for let me to participate in patient's care Continue bilateral chest tubes on suction the airleak is worse her peak pressures are high prognosis overall is guarded. Imaging reviewed Bilateral air leaks noted high pressures continue chest tube suction recurrent right ptx tube fixed imaging pleuravac fixed tubes functional Unfortunately patient continues to be very ill on vent support with bilateral chest tubes in place. She continues to reaccumulate pneumothorax as this type functional tubes. Occasionally tubes or Pleur-evac needs to be changed and immediately shows improvement but then again declines. Prognosis is very guarded. We will continue to follow thank you for let me participate in patient's care Elpidio Frazier Jul 06, 2020 13:15
--- NOTE | 2020-07-06 13:50 | NUR ---
NURSE NOTES: MD Clayton at bedside to assess pt. MD updated regarding pt's status. Made MD aware that MD Sewell signed DNR form for pt. Made MD aware scheduled lasix and carvedilol in the morning was not given due to episodes of SBP in the 90s. Pt's VSS, will continue to monitor.
--- NOTE | 2020-07-06 14:43 | NUR ---
CASE MANAGEMENT:REVIEW 07/06/20 SI: COVID PNEUMONIA ~ INTUBATED. PNTHX W/BILATERAL CHEST TUBES 99.6 111 28 120/69 87% ON VENT SUPPORT W/100% FIO2 PEEP~7.0 H/H-9.6/30.6 PLT-105 CO2+38 CA-7.6 PCO2+70.1 PO244.4 HCO3 42.0 IS: FENTANYL GTT VERSED GTT PRN IV CEFEPIME Q12 IV LASIX QD IVF@50/HR COREG NG Q12H IV PROTONIX Q12H : ICU STATUS DCP: FROM HOME PLAN: SUPPORTIVE CARE BILATERAL CHEST TUBES TO SUCTION WEAN OXYGEN ABLE
--- NOTE | 2020-07-06 14:50 | Cardiology Report ---
APPROVED REPORT EKG Measurement Heart [id number] <Conclusion> Sinus tachycardia with occasional premature ventricular complexes Otherwise normal ECG
--- NOTE | 2020-07-06 15:11 | Cardiac Electrophysiology PN ---
Assessment/Plan Assessment/Plan 1. Respiratory failure due to COVID pneumonia. Intubated on 100% Fio2. PEEP 12 Echo showed Nl EF 2. Bilateral pneumothoraces. S/P bilateral chest tube placement. Right chest tube repositioned 07/04/20 3. Troponin elevation. Levels are low and flat could be demand ischemia vs Renal failure EKG shows sinus tachycardia at 110 beats per minute. 4. Hypernatremia with sodium of 155. Resolved 5. Volume overload. 6. COVID-19 positive and is in isolation, on dexamethasone, completed Remdesivir. 7. Hypertension, on Coreg 6.25 mg b.i.d. and Lasix 8. DNR now DW RN Subjective Subjective Intubated in ICU on Fentanyl and Versed drip. Had Right Chest tubes repositioned by Dr Frazier On 100% Fio2, PEEP 8 . Off pressors Now DNR Objective Last 24 Hour Vital Signs Date Time Temp Pulse Resp B/P (MAP) Pulse Ox O2 Delivery O2 Flow Rate FiO2 07/06/20 15:00 23 Mechanical Ventilator 90 07/06/20 14:00 100 24 109/62 (78) 87 07/06/20 14:00 25 Mechanical Ventilator 90 07/06/20 13:00 106 23 108/60 (76) 87 07/06/20 13:00 23 Mechanical Ventilator 100 07/06/20 12:14 110 07/06/20 12:00 Mechanical Ventilator Mechanical Ventilator 07/06/20 12:00 100 07/06/20 12:00 26 Mechanical Ventilator 100 07/06/20 12:00 99.6 111 28 120/69 (86) 78 07/06/20 11:45 106 27 102/54 (70) 81 07/06/20 11:30 105 23 101/59 (73) 83 07/06/20 11:00 109 21 122/68 (86) 84 07/06/20 11:00 24 Mechanical Ventilator 90 07/06/20 10:00 22 Mechanical Ventilator 90 07/06/20 10:00 105 26 129/68 (88) 79 07/06/20 09:45 102 26 96/53 (67) 77 07/06/20 09:30 100 24 94/51 (65) 80 07/06/20 09:00 23 Mechanical Ventilator 90 07/06/20 09:00 101 21 108/63 (78) 81 07/06/20 08:47 23 Mechanical Ventilator 100 07/06/20 08:47 101 123/61 07/06/20 08:42 26 Mechanical Ventilator 100 07/06/20 08:03 100 07/06/20 08:00 25 Mechanical Ventilator 100 07/06/20 08:00 Mechanical Ventilator Mechanical Ventilator 07/06/20 08:00 98.2 100 23 101/56 (71) 87 07/06/20 08:00 100 07/06/20 07:30 98 24 91/50 (64) 84 07/06/20 07:16 100 24 100 07/06/20 07:00 100 26 95/55 (68) 85 07/06/20 07:00 26 Mechanical Ventilator 100 07/06/20 06:00 99.5 100 25 94/52 (66) 87 07/06/20 06:00 23 Mechanical Ventilator 100 07/06/20 06:00 23 94/52 Mechanical Ventilator 100 07/06/20 05:45 101 25 93/54 (67) 87 07/06/20 05:38 102 23 100 07/06/20 05:30 102 24 94/56 (69) 88 07/06/20 05:15 103 25 100/61 (74) 87 07/06/20 05:00 103 25 106/63 (77) 87 07/06/20 05:00 25 Mechanical Ventilator 100 07/06/20 05:00 25 106/63 Mechanical Ventilator 100 07/06/20 04:45 98.3 103 25 97/59 (72) 86 07/06/20 04:30 104 26 98/59 (72) 86 07/06/20 04:15 105 25 101/64 (76) 85 07/06/20 04:00 105 23 86/53 (64) 86 07/06/20 04:00 23 Mechanical Ventilator 100 07/06/20 04:00 23 86/53 Mechanical Ventilator 100 07/06/20 04:00 100 07/06/20 04:00 Mechanical Ventilator Mechanical Ventilator 07/06/20 03:57 104 07/06/20 03:45 104 24 90/50 (63) 87 07/06/20 03:30 104 23 97/57 (70) 87 07/06/20 03:29 103 22 100 07/06/20 03:15 106 24 88/55 (66) 88 07/06/20 03:00 21 Mechanical Ventilator 100 07/06/20 03:00 21 90/56 Mechanical Ventilator 100 07/06/20 03:00 99.4 106 21 90/56 (67) 89 07/06/20 02:45 106 22 98/55 (69) 88 07/06/20 02:30 107 21 116/68 (84) 68 07/06/20 02:15 96.0 111 24 93/53 (66) 88 07/06/20 02:00 114 25 87/59 (68) 88 07/06/20 02:00 25 Mechanical Ventilator 100 07/06/20 02:00 25 87/59 Mechanical Ventilator 100 07/06/20 01:48 109 22 100 07/06/20 01:45 100.4 116 23 96/56 (69) 87 07/06/20 01:30 118 23 94/57 (69) 86 07/06/20 01:15 120 24 99/60 (73) 85 07/06/20 01:00 103.1 121 23 106/68 (81) 84 07/06/20 01:00 27 Mechanical Ventilator 100 07/06/20 01:00 27 106/68 Mechanical Ventilator 100 07/06/20 00:48 100 07/06/20 00:45 123 27 115/60 (78) 80 07/06/20 00:30 125 28 118/64 (82) 77 07/06/20 00:15 125 29 111/52 (71) 75 07/06/20 00:00 Mechanical Ventilator Mechanical Ventilator 07/06/20 00:00 102.8 126 28 108/56 (73) 74 07/06/20 00:00 28 Mechanical Ventilator 100 07/06/20 00:00 28 108/56 Mechanical Ventilator 100 07/05/20 23:46 126 07/05/20 23:45 126 28 104/57 (73) 74 07/05/20 23:30 127 27 107/55 (72) 75 07/05/20 23:18 128 25 100 07/05/20 23:15 128 25 98/61 (73) 75 07/05/20 23:00 27 Mechanical Ventilator 100 07/05/20 23:00 27 107/55 Mechanical Ventilator 100 07/05/20 23:00 127 22 105/61 (76) 76 07/05/20 22:45 126 22 101/59 (73) 67 07/05/20 22:30 126 30 104/59 (74) 62 07/05/20 22:15 126 28 101/60 (74) 57 07/05/20 22:06 29 Mechanical Ventilator 100 07/05/20 22:00 22 105/61 Mechanical Ventilator 100 07/05/20 22:00 125 29 104/60 (75) 55 07/05/20 21:45 124 29 104/59 (74) 56 07/05/20 21:30 125 31 111/60 (77) 53 07/05/20 21:15 126 32 158/63 (94) 52 07/05/20 21:00 123 31 135/69 (91) 55 07/05/20 21:00 100 07/05/20 21:00 29 Mechanical Ventilator 100 07/05/20 21:00 29 104/52 Mechanical Ventilator 100 07/05/20 21:00 112 127/65 07/05/20 20:51 112 07/05/20 20:49 120 28 100 07/05/20 20:45 118 30 118/62 (80) 54 07/05/20 20:30 118 29 121/61 (81) 55 07/05/20 20:15 115 29 121/64 (83) 61 07/05/20 20:00 Mechanical Ventilator Mechanical Ventilator 07/05/20 20:00 100 07/05/20 20:00 96.0 111 27 130/64 (86) 60 07/05/20 20:00 34 Mechanical Ventilator 100 07/05/20 20:00 34 171/98 Mechanical Ventilator 100 07/05/20 19:45 118 119/68 (85) 49 07/05/20 19:30 119 33 176/78 (110) 43 07/05/20 19:15 118 32 185/90 (121) 83 07/05/20 19:00 114 27 172/72 (105) 85 07/05/20 19:00 33 Mechanical Ventilator 100 07/05/20 19:00 33 168/95 Mechanical Ventilator 100 07/05/20 18:36 33 158/73 Mechanical Ventilator 100 07/05/20 18:00 106 29 172/83 (112) 77 07/05/20 18:00 30 Mechanical Ventilator 100 07/05/20 18:00 30 158/73 Mechanical Ventilator 100 07/05/20 17:30 107 33 177/77 (110) 75 07/05/20 17:00 26 Mechanical Ventilator 100 07/05/20 17:00 26 101/54 Mechanical Ventilator 100 07/05/20 17:00 96 27 101/54 (70) 87 07/05/20 16:30 95 25 105/55 (72) 87 07/05/20 16:00 Mechanical Ventilator Mechanical Ventilator 07/05/20 16:00 99 07/05/20 16:00 26 Mechanical Ventilator 100 07/05/20 16:00 28 105/55 Mechanical Ventilator 100 07/05/20 16:00 100 07/05/20 16:00 98.4 100 27 129/65 (86) 87 07/05/20 15:30 99 28 134/66 (88) 87 07/05/20 15:09 87 27 100 Intake and Output 07/05/20 07/06/20 19:00 07:00 Intake Total 1726.0 ml 1580 ml Output Total 1816 ml 460 ml Balance -90.0 ml 1120 ml Intake Free Water 280 ml 100 ml IV Total 786.0 ml 820 ml Tube Feeding 660 ml 660 ml Output Urine Total 1730 ml 310 ml Chest Tube Drainage Total 86 ml 150 ml Laboratory Tests Test 07/05/20 20:14 07/06/20 05:45 07/06/20 08:29 Arterial Blood pH 7.391 (7.350-7.450) 7.395 (7.350-7.450) Arterial Blood Partial Pressure CO2 66.3 mmHg (35.0-45.0) *H 70.1 mmHg (35.0-45.0) *H Arterial Blood Partial Pressure O2 37.5 mmHg (75.0-100.0) 44.4 mmHg (75.0-100.0) Arterial Blood HCO3 39.3 mmol/L (22.0-26.0) H 42.0 mmol/L (22.0-26.0) *H Arterial Blood Oxygen Saturation 67.7 % (95-100) *L 78.5 % (95-100) *L Arterial Blood Base Excess 12.1 (-2-2) *H 14.6 (-2-2) *H Amrit Test Positive Positive White Blood Count 8.4 K/UL (4.8-10.8) Red Blood Count 3.13 M/UL (4.20-5.40) L Hemoglobin 9.6 G/DL (12.0-16.0) L Hematocrit 30.6 % (37.0-47.0) L Mean Corpuscular Volume 98 FL (80-99) Mean Corpuscular Hemoglobin 30.6 PG (27.0-31.0) Mean Corpuscular Hemoglobin Concent 31.3 G/DL (32.0-36.0) L Red Cell Distribution Width 16.0 % (11.6-14.8) H Platelet Count 105 K/UL (150-450) L Mean Platelet Volume 8.9 FL (6.5-10.1) Neutrophils (%) (Auto) 82.6 % (45.0-75.0) H Lymphocytes (%) (Auto) 11.3 % (20.0-45.0) L Monocytes (%) (Auto) 2.1 % (1.0-10.0) Eosinophils (%) (Auto) 3.5 % (0.0-3.0) H Basophils (%) (Auto) 0.5 % (0.0-2.0) Sodium Level 141 MMOL/L (136-145) Potassium Level 3.8 MMOL/L (3.5-5.1) Chloride Level 104 MMOL/L (98-107) Carbon Dioxide Level 38 MMOL/L (21-32) H Blood Urea Nitrogen 17 mg/dL (7-18) Creatinine 0.6 MG/DL (0.55-1.30) Estimat Glomerular Filtration Rate > 60 mL/min (>60) Glucose Level 131 MG/DL (74-106) H Uric Acid 1.7 MG/DL (2.6-7.2) L Calcium Level 7.6 MG/DL (8.5-10.1) L Phosphorus Level 2.7 MG/DL (2.5-4.9) Magnesium Level 2.1 MG/DL (1.8-2.4) Total Bilirubin 0.5 MG/DL (0.2-1.0) Gamma Glutamyl Transpeptidase 123 U/L (5-85) H Aspartate Amino Transf (AST/SGOT) 57 U/L (15-37) H Alanine Aminotransferase (ALT/SGPT) 52 U/L (12-78) Alkaline Phosphatase 150 U/L (46-116) H C-Reactive Protein, Quantitative 13.5 mg/dL (0.00-0.90) H Pro-B-Type Natriuretic Peptide 1297 pg/mL (0-125) H Total Protein 5.5 G/DL (6.4-8.2) L Albumin 1.0 G/DL (3.4-5.0) L Globulin 4.5 g/dL Albumin/Globulin Ratio 0.2 (1.0-2.7) L Objective HEAD AND NECK: No JVD. Orally intubated with SQ emphysema LUNGS: Coarse rhonchi bilaterally. Bilateral chest tubes in. CARDIOVASCULAR: Regular S1 and S2 and tachycardic. ABDOMEN: Soft. EXTREMITIES: No pitting edema. Maxwell Carreon MD Jul 06, 2020 15:11
--- NOTE | 2020-07-06 15:29 | NUR ---
NURSE NOTES: Pt's VS remain stable, no signs of distress noted. Safety precautions maintained. Will continue to monitor.
--- NOTE | 2020-07-06 17:00 | NUR ---
NURSE NOTES: Pt's VSS, no signs of distress noted. Oral care provided, gown and bed linens changed. Safety precautions maintained. Will continue to monitor.
--- NOTE | 2020-07-06 18:45 | NUR ---
NURSE NOTES: Pt's VS remain stable at this time, afebrile temp 97.8, still on cooling blanket. Pt's tube feeding residual checked, none noted. Safety precautions maintained. Will continue to monitor.
--- NOTE | 2020-07-06 19:20 | NUR ---
NURSE HAND-OFF REPORT: Latest Vital Signs: Temperature 97.8 , Pulse 98 , B/P 94 /54 , Respiratory Rate 25 , O2 SAT 90 , Mechanical Ventilator, 100% FiO2. Vital Sign Comment: EKG Rhythm: Sinus Rhythm Rhythm change?: N MD Notified?: MD Response: Latest Carney Fall Score: 50 Fall Risk: High Risk Safety Measures: Call light Within Reach, Bed Alarm Zone 2, Side Rails Side Rails x3, Bed position Low and Locked. Fall Precautions: Yellow Socks Door Sign Patient Fall Education Report given to NORMAN Lam for continuity of care. Pt stable. .
--- NOTE | 2020-07-06 19:36 | NUR ---
NURSE NOTES: received report from coni woodward pt sedated with fent drip at 100mcg and versed drip at 5mg with -2rass orally intubated with o2 sat at 90% no acute resp distress noted tolerating tube feeding no residual reposition and suction urinary output good
[2020-07-06] MEDS: Dyna-Hex 2% Top Sol 2oz TOPIC SCH (20:07)
[2020-07-06] MEDS: fentaNYL 2500mcg/NS 250ml 250 ML IV SCH (21:10)
--- NOTE | 2020-07-06 22:00 | NUR ---
NURSE NOTES: reposition and suction
[2020-07-07] VITALS (32 sets, daily range): BP systolic 81–156; BP diastolic 52–91
[2020-07-07] MEDS: NovoLOG Insulin Flexpen SUBQ SCH ×5 (00:04→23:33)
--- NOTE | 2020-07-07 00:20 | NUR ---
NURSE NOTES: accucheck done with blood sugar of 146, covered with 2 units novolog subcut
--- NOTE | 2020-07-07 04:00 | NUR ---
NURSE NOTES: complete bed bath oral and back care done
[2020-07-07 04:45] LABS: EOSINOPHILS % (AUTO) 5.2 % (0.0-3.0); HEMATOCRIT 29.6 % (37.0-47.0); HEMOGLOBIN 9.1 G/DL (12.0-16.0); LYMPHOCYTES % (AUTO) 7.2 % (20.0-45.0); MEAN CORPUSCULAR VOLUME 98 FL (80-99); MONOCYTES % (AUTO) 3.4 % (1.0-10.0); NEUTROPHILS % (AUTO) 82.2 % (45.0-75.0); PLATELET COUNT 116 K/UL (150-450); RED BLOOD COUNT 3.01 M/UL (4.20-5.40); WHITE BLOOD COUNT 7.7 K/UL (4.8-10.8)
[2020-07-07 05:01] LABS: ANION GAP -2 mmol/L (5-15); BLOOD UREA NITROGEN 15 mg/dL (7-18); CALCIUM 7.9 MG/DL (8.5-10.1); CARBON DIOXIDE 38 MMOL/L (21-32); CHLORIDE 105 MMOL/L (98-107); CREATININE 0.4 MG/DL (0.55-1.30); POTASSIUM 4.3 MMOL/L (3.5-5.1); SODIUM 141 MMOL/L (136-145)
[2020-07-07] MEDS: Docusate 100mg/10ml Liq NG SCH ×3 (05:30→21:13)
[2020-07-07] MEDS: Versed 50mg/NS 100ml 100 ML IV PRN ×2 (05:32→21:10)
--- NOTE | 2020-07-07 06:00 | NUR ---
NURSE NOTES: bs 144 insulin coverage given
--- NOTE | 2020-07-07 06:44 | Hematology/Onc Progress Note ---
Assessment/Plan Assessment/Plan Assessment and recs # Leukocytosis with Pneumonia due to COVID-19 virus -> wbc trend 15-->11-->10->17-->18->11->21->9 --> ABX as per id ctx-->off --> imaging does show pna --> anticoag recommended --> on remdesivir # Anemia of chronic disease --> hgb 12->10-->9-->11-->10.8->10-->9.6 -> transfuse prn --> r/o hemolysis # Elevated ddimer due to covid --> duplex legs -> LOVENOX sq # Thrombocytopenia due to likely plt destruction, Covid19++ with Hypoxia -> steriods, abx per id --> plt 117-->121-->124->77-->90 --> smear is noted # Renal insufficiency -> per renal care # Sepsis due to above --> abx, fluid resuscitation # Dvt ppx lovenox sq Appreciate consultation and mehran RN Subjective Allergies: Coded Allergies: No Known Allergies (Unverified , 06/17/20) All Systems: reviewed and negative except above Subjective 06/19 sleeping, comfortable, on bipap, meds have been reviewed 06/21 on bipap, labs have been reviewed, no major events 06/22 bipap labs reviewed, meds noted, no bleeding 06/23 bipap labs noted, no bleeding, meds reviewed, mehran rn 06/24 on vent, labs reviewed, meds reviewed 06/25 on vent, with ctx as abx, labs noted, no bleeding 06/26 vent, with ogt, with helms, labs noted, no bleeding plts lower 06/28 labs are pending, on vent, helms intract, no new changes 06/29 icu, on vent, hgb 11, plt 124, meds noted, on ctx 06/30 icu, edematous, is on vent, labs reviewed, abx 07/01 icu, on vent, labs noted, no bleeding, plt 77, labs ordered 07/02 icu, nv, meds noted, no bleeding, plt 91, hgb 9 07/03 icu, nv, meds noted, right chest tube with output, hgb 10 07/05 icu, nv, meds reviewed, labs noted, b/l chest tubes in place 07/06 icu, nv, meds, labs have been ordered, chest tube draining 07/07 icu, chest tubes, on fen, versed, no major changes Objective Objective Current Medications Medications (Trade) Dose Ordered Sig/Maya Route PRN Reason Start Time Stop Time Status Last Admin Dose Admin Acetaminophen (Tylenol) 500 mg Q4H PRN ORAL Mild Pain (Pain Scale 1-3) 06/18/20 00:15 07/18/20 00:14 06/24/20 17:51 Acetaminophen (Tylenol) 500 mg Q4H PRN ORAL Temp >100.5 06/18/20 00:15 07/18/20 00:14 06/29/20 20:01 Carvedilol (Coreg) 6.25 mg EVERY 12 HOURS ORAL 06/22/20 21:00 07/22/20 20:59 07/05/20 21:00 Cefepime HCl 1 gm/ Dextrose 55 ml @ 110 mls/hr DAILY IVPB 07/04/20 09:00 07/08/20 12:00 07/06/20 08:43 Chlorhexidine Gluconate (Sissy-Hex 2%) 1 applic DAILY@2000 TOPIC 06/28/20 20:00 09/26/20 19:59 07/06/20 20:07 Dextrose (Dextrose 50%) 25 ml Q30M PRN IV Hypoglycemia 06/18/20 14:15 09/16/20 14:14 Dextrose (Dextrose 50%) 50 ml Q30M PRN IV Hypoglycemia 06/18/20 14:15 09/16/20 14:14 Docusate Sodium (Colace) 100 mg EVERY 8 HOURS NG 07/02/20 14:00 07/28/20 12:59 07/07/20 05:30 Furosemide (Lasix) 40 mg DAILY IV 06/28/20 17:45 07/28/20 16:59 07/05/20 08:48 Haloperidol Lactate (Haldol) 10 mg Q6H PRN IM Agitation 06/23/20 11:30 08/07/20 11:29 06/23/20 11:34 Insulin Aspart (NovoLOG) while NPO Q6HR SUBQ 06/18/20 18:00 09/16/20 17:59 07/07/20 05:31 Midazolam HCl 100 ml @ 0 mls/hr Q24H PRN IV To Patient Comfort 07/06/20 07:00 07/08/20 06:59 07/07/20 05:32 Pantoprazole (Protonix) 40 mg EVERY 12 HOURS IVP 06/18/20 21:00 07/18/20 20:59 07/06/20 20:32 Sodium Chloride 1,000 ml @ 50 mls/hr Q20H IV 06/26/20 08:00 07/26/20 07:59 07/07/20 04:00 Vitamin D (Vitamin D) 2,000 unit DAILY GT 06/29/20 10:30 07/29/20 10:29 07/06/20 08:43 Last 24 Hour Vital Signs Date Time Temp Pulse Resp B/P (MAP) Pulse Ox O2 Delivery O2 Flow Rate FiO2 07/07/20 06:00 22 Mechanical Ventilator 100 07/07/20 06:00 25 145/65 Mechanical Ventilator 100 07/07/20 06:00 107 20 134/69 (90) 88 07/07/20 05:32 22 Mechanical Ventilator 100 07/07/20 05:00 106 24 128/73 (91) 88 07/07/20 05:00 100 07/07/20 05:00 22 Mechanical Ventilator 100 07/07/20 05:00 22 132/59 Mechanical Ventilator 100 07/07/20 04:00 100 07/07/20 04:00 107 07/07/20 04:00 22 Mechanical Ventilator 07/07/20 04:00 23 130/88 Mechanical Ventilator 100 07/07/20 04:00 98.0 102 27 117/75 (89) 93 07/07/20 04:00 Mechanical Ventilator Mechanical Ventilator 07/07/20 03:41 101 23 100 07/07/20 03:00 101 23 93/52 (66) 91 07/07/20 03:00 22 Mechanical Ventilator 100 07/07/20 03:00 23 118/64 Mechanical Ventilator 100 07/07/20 02:00 99 22 89/59 (69) 90 07/07/20 02:00 22 Mechanical Ventilator 100 07/07/20 02:00 22 110/80 Mechanical Ventilator 100 07/07/20 01:00 100 22 94/57 (69) 89 07/07/20 01:00 25 Mechanical Ventilator 100 07/07/20 01:00 22 110/60 Mechanical Ventilator 100 07/07/20 00:00 Mechanical Ventilator Mechanical Ventilator 07/07/20 00:00 22 Mechanical Ventilator 100 07/07/20 00:00 22 97/48 Mechanical Ventilator 100 07/07/20 00:00 97.8 100 22 97/58 (71) 92 07/07/20 00:00 100 07/06/20 23:39 102 26 100 07/06/20 23:00 103 23 107/56 (73) 89 07/06/20 23:00 22 Mechanical Ventilator 100 07/06/20 23:00 22 116/64 Mechanical Ventilator 100 07/06/20 22:00 106 21 127/65 (85) 85 07/06/20 22:00 27 Mechanical Ventilator 100 07/06/20 22:00 27 127/65 Mechanical Ventilator 100 07/06/20 21:10 27 144/80 Mechanical Ventilator 100 07/06/20 21:00 99.0 103 28 144/80 (101) 86 07/06/20 21:00 20 Mechanical Ventilator 100 07/06/20 21:00 27 110/64 Mechanical Ventilator 100 07/06/20 20:33 99 100/65 07/06/20 20:06 24 Mechanical Ventilator 100 07/06/20 20:00 99 07/06/20 20:00 97 22 105/58 (74) 91 07/06/20 20:00 18 Mechanical Ventilator 100 07/06/20 20:00 27 100/60 Mechanical Ventilator 100 07/06/20 20:00 100 07/06/20 20:00 Mechanical Ventilator Mechanical Ventilator 07/06/20 19:52 98 25 100 07/06/20 19:00 98 24 108/52 (70) 90 07/06/20 19:00 21 Mechanical Ventilator 100 07/06/20 19:00 23 94/54 Mechanical Ventilator 100 07/06/20 18:00 99 24 109/60 (76) 89 07/06/20 18:00 24 Mechanical Ventilator 100 07/06/20 18:00 24 109/60 Mechanical Ventilator 100 07/06/20 17:00 98 23 111/62 (78) 90 07/06/20 17:00 22 Mechanical Ventilator 100 07/06/20 17:00 22 106/58 Mechanical Ventilator 100 07/06/20 16:01 96 07/06/20 16:00 18 Mechanical Ventilator 100 07/06/20 16:00 24 94/53 Mechanical Ventilator 100 07/06/20 16:00 Mechanical Ventilator Mechanical Ventilator 07/06/20 16:00 97.8 97 25 92/54 (67) 87 07/06/20 16:00 100 07/06/20 15:00 23 Mechanical Ventilator 90 07/06/20 15:00 24 103/62 Mechanical Ventilator 100 07/06/20 15:00 99 24 103/62 (76) 87 07/06/20 14:00 100 24 109/62 (78) 87 07/06/20 14:00 25 Mechanical Ventilator 90 07/06/20 14:00 25 102/57 Mechanical Ventilator 100 07/06/20 13:24 101 25 100 07/06/20 13:00 106 23 108/60 (76) 87 07/06/20 13:00 23 Mechanical Ventilator 100 07/06/20 13:00 23 100/53 Mechanical Ventilator 100 07/06/20 12:14 110 07/06/20 12:00 Mechanical Ventilator Mechanical Ventilator 07/06/20 12:00 100 07/06/20 12:00 26 Mechanical Ventilator 100 07/06/20 12:00 26 125/65 Mechanical Ventilator 100 07/06/20 12:00 99.6 111 28 120/69 (86) 78 07/06/20 11:45 106 27 102/54 (70) 81 07/06/20 11:30 105 23 101/59 (73) 83 07/06/20 11:00 109 21 122/68 (86) 84 07/06/20 11:00 24 Mechanical Ventilator 90 07/06/20 11:00 24 119/61 Mechanical Ventilator 100 07/06/20 10:00 22 Mechanical Ventilator 90 07/06/20 10:00 22 143/70 Mechanical Ventilator 100 07/06/20 10:00 105 26 129/68 (88) 79 07/06/20 09:45 102 26 96/53 (67) 77 07/06/20 09:30 100 24 94/51 (65) 80 07/06/20 09:00 23 Mechanical Ventilator 90 07/06/20 09:00 23 107/60 Mechanical Ventilator 100 07/06/20 09:00 101 21 108/63 (78) 81 07/06/20 08:47 23 Mechanical Ventilator 100 07/06/20 08:47 101 123/61 07/06/20 08:42 26 Mechanical Ventilator 100 07/06/20 08:03 100 07/06/20 08:00 25 Mechanical Ventilator 100 07/06/20 08:00 25 111/59 Mechanical Ventilator 100 07/06/20 08:00 Mechanical Ventilator Mechanical Ventilator 07/06/20 08:00 98.2 100 23 101/56 (71) 87 07/06/20 08:00 100 07/06/20 07:30 98 24 91/50 (64) 84 07/06/20 07:16 100 24 100 07/06/20 07:00 100 26 95/55 (68) 85 07/06/20 07:00 26 Mechanical Ventilator 100 07/06/20 07:00 26 100/57 Mechanical Ventilator 100 07/06/20 06:00 99.5 100 25 94/52 (66) 87 07/06/20 06:00 23 Mechanical Ventilator 100 07/06/20 06:00 23 94/52 Mechanical Ventilator 100 07/06/20 05:45 101 25 93/54 (67) 87 07/06/20 05:38 102 23 100 07/06/20 05:30 102 24 94/56 (69) 88 07/06/20 05:15 103 25 100/61 (74) 87 07/06/20 05:00 103 25 106/63 (77) 87 07/06/20 05:00 25 Mechanical Ventilator 100 07/06/20 05:00 25 106/63 Mechanical Ventilator 100 07/06/20 04:45 98.3 103 25 97/59 (72) 86 07/06/20 04:30 104 26 98/59 (72) 86 07/06/20 04:15 105 25 101/64 (76) 85 07/06/20 04:00 105 23 86/53 (64) 86 07/06/20 04:00 23 Mechanical Ventilator 100 07/06/20 04:00 23 86/53 Mechanical Ventilator 100 07/06/20 04:00 100 07/06/20 04:00 Mechanical Ventilator Mechanical Ventilator 07/06/20 03:57 104 07/06/20 03:45 104 24 90/50 (63) 87 07/06/20 03:30 104 23 97/57 (70) 87 07/06/20 03:29 103 22 100 07/06/20 03:15 106 24 88/55 (66) 88 07/06/20 03:00 21 Mechanical Ventilator 100 07/06/20 03:00 21 90/56 Mechanical Ventilator 100 07/06/20 03:00 99.4 106 21 90/56 (67) 89 07/06/20 02:45 106 22 98/55 (69) 88 07/06/20 02:30 107 21 116/68 (84) 68 07/06/20 02:15 96.0 111 24 93/53 (66) 88 07/06/20 02:00 114 25 87/59 (68) 88 07/06/20 02:00 25 Mechanical Ventilator 100 07/06/20 02:00 25 87/59 Mechanical Ventilator 100 07/06/20 01:48 109 22 100 07/06/20 01:45 100.4 116 23 96/56 (69) 87 07/06/20 01:30 118 23 94/57 (69) 86 07/06/20 01:15 120 24 99/60 (73) 85 07/06/20 01:00 103.1 121 23 106/68 (81) 84 07/06/20 01:00 27 Mechanical Ventilator 100 07/06/20 01:00 27 106/68 Mechanical Ventilator 100 07/06/20 00:48 100 07/06/20 00:45 123 27 115/60 (78) 80 07/06/20 00:30 125 28 118/64 (82) 77 07/06/20 00:15 125 29 111/52 (71) 75 07/06/20 00:00 Mechanical Ventilator Mechanical Ventilator 07/06/20 00:00 102.8 126 28 108/56 (73) 74 07/06/20 00:00 28 Mechanical Ventilator 100 07/06/20 00:00 28 108/56 Mechanical Ventilator 100 07/05/20 23:46 126 07/05/20 23:45 126 28 104/57 (73) 74 07/05/20 23:30 127 27 107/55 (72) 75 07/05/20 23:18 128 25 100 07/05/20 23:15 128 25 98/61 (73) 75 07/05/20 23:00 27 Mechanical Ventilator 100 07/05/20 23:00 27 107/55 Mechanical Ventilator 100 07/05/20 23:00 127 22 105/61 (76) 76 07/05/20 22:45 126 22 101/59 (73) 67 07/05/20 22:30 126 30 104/59 (74) 62 07/05/20 22:15 126 28 101/60 (74) 57 07/05/20 22:06 29 Mechanical Ventilator 100 07/05/20 22:00 22 105/61 Mechanical Ventilator 100 07/05/20 22:00 125 29 104/60 (75) 55 07/05/20 21:45 124 29 104/59 (74) 56 07/05/20 21:30 125 31 111/60 (77) 53 07/05/20 21:15 126 32 158/63 (94) 52 07/05/20 21:00 123 31 135/69 (91) 55 07/05/20 21:00 100 07/05/20 21:00 29 Mechanical Ventilator 100 07/05/20 21:00 29 104/52 Mechanical Ventilator 100 07/05/20 21:00 112 127/65 07/05/20 20:51 112 07/05/20 20:49 120 28 100 07/05/20 20:45 118 30 118/62 (80) 54 07/05/20 20:30 118 29 121/61 (81) 55 07/05/20 20:15 115 29 121/64 (83) 61 07/05/20 20:00 Mechanical Ventilator Mechanical Ventilator 07/05/20 20:00 100 07/05/20 20:00 96.0 111 27 130/64 (86) 60 07/05/20 20:00 34 Mechanical Ventilator 100 07/05/20 20:00 34 171/98 Mechanical Ventilator 100 07/05/20 19:45 118 119/68 (85) 49 07/05/20 19:30 119 33 176/78 (110) 43 07/05/20 19:15 118 32 185/90 (121) 83 07/05/20 19:00 114 27 172/72 (105) 85 07/05/20 19:00 33 Mechanical Ventilator 100 07/05/20 19:00 33 168/95 Mechanical Ventilator 100 07/05/20 18:36 33 158/73 Mechanical Ventilator 100 07/05/20 18:00 106 29 172/83 (112) 77 07/05/20 18:00 30 Mechanical Ventilator 100 07/05/20 18:00 30 158/73 Mechanical Ventilator 100 07/05/20 17:30 107 33 177/77 (110) 75 07/05/20 17:00 26 Mechanical Ventilator 100 07/05/20 17:00 26 101/54 Mechanical Ventilator 100 07/05/20 17:00 96 27 101/54 (70) 87 07/05/20 16:30 95 25 105/55 (72) 87 07/05/20 16:00 Mechanical Ventilator Mechanical Ventilator 07/05/20 16:00 99 07/05/20 16:00 26 Mechanical Ventilator 100 07/05/20 16:00 28 105/55 Mechanical Ventilator 100 07/05/20 16:00 100 07/05/20 16:00 98.4 100 27 129/65 (86) 87 07/05/20 15:30 99 28 134/66 (88) 87 07/05/20 15:09 87 27 100 07/05/20 15:00 26 Mechanical Ventilator 100 07/05/20 15:00 26 129/65 Mechanical Ventilator 100 07/05/20 15:00 102 26 134/64 (87) 85 07/05/20 14:30 103 28 126/59 (81) 86 07/05/20 14:00 101 28 102/53 (69) 86 07/05/20 14:00 26 Mechanical Ventilator 100 07/05/20 14:00 26 102/53 Mechanical Ventilator 100 07/05/20 13:30 97 26 112/56 (74) 88 07/05/20 13:00 100 26 113/59 (77) 89 07/05/20 13:00 26 Mechanical Ventilator 100 07/05/20 13:00 26 113/59 Mechanical Ventilator 100 07/05/20 12:30 98 27 115/61 (79) 88 07/05/20 12:00 99 07/05/20 12:00 98.5 101 29 101/52 (68) 88 07/05/20 12:00 Mechanical Ventilator Mechanical Ventilator 07/05/20 12:00 100 07/05/20 12:00 26 Mechanical Ventilator 100 07/05/20 12:00 29 101/52 Mechanical Ventilator 100 07/05/20 11:38 105 28 100 07/05/20 11:30 104 28 110/55 (73) 86 07/05/20 11:00 28 Mechanical Ventilator 100 07/05/20 11:00 27 104/51 Mechanical Ventilator 100 07/05/20 11:00 109 27 104/51 (68) 84 07/05/20 10:30 107 26 105/49 (67) 84 07/05/20 10:04 28 Mechanical Ventilator 100 07/05/20 10:00 104 28 117/59 (78) 81 07/05/20 10:00 29 Mechanical Ventilator 100 07/05/20 10:00 29 105/49 Mechanical Ventilator 100 07/05/20 09:30 102 29 127/65 (85) 80 07/05/20 09:00 102 28 116/60 (78) 83 07/05/20 09:00 29 Mechanical Ventilator 100 07/05/20 09:00 29 116/60 Mechanical Ventilator 100 07/05/20 08:50 103 113/59 07/05/20 08:30 105 29 104/51 (68) 84 07/05/20 08:00 100 07/05/20 08:00 105 07/05/20 08:00 26 Mechanical Ventilator 100 07/05/20 08:00 26 108/52 Mechanical Ventilator 100 07/05/20 08:00 Mechanical Ventilator Mechanical Ventilator 07/05/20 08:00 98.7 103 26 108/52 (70) 85 07/05/20 07:39 104 27 100 07/05/20 07:30 102 27 102/53 (69) 87 07/05/20 07:00 27 Mechanical Ventilator 100 07/05/20 07:00 27 120/59 Mechanical Ventilator 100 07/05/20 07:00 102 27 120/59 (79) 86 Intake and Output 07/06/20 07/07/20 19:00 07:00 Intake Total 1614.17 ml 1495 ml Output Total 424 ml 320 ml Balance 1190.17 ml 1175 ml Intake Free Water 60 ml 120 ml IV Total 894.17 ml 770 ml Tube Feeding 660 ml 605 ml Output Urine Total 330 ml 320 ml Chest Tube Drainage Total 94 ml Labs Test 07/04/20 13:25 07/05/20 20:14 07/06/20 05:45 07/06/20 08:29 Arterial Blood pH 7.378 (7.350-7.450) 7.391 (7.350-7.450) 7.395 (7.350-7.450) Arterial Blood Partial Pressure CO2 70.7 mmHg (35.0-45.0) 66.3 mmHg (35.0-45.0) 70.1 mmHg (35.0-45.0) Arterial Blood Partial Pressure O2 29.2 mmHg (75.0-100.0) 37.5 mmHg (75.0-100.0) 44.4 mmHg (75.0-100.0) Arterial Blood HCO3 40.7 mmol/L (22.0-26.0) 39.3 mmol/L (22.0-26.0) 42.0 mmol/L (22.0-26.0) Arterial Blood Oxygen Saturation 54.7 % (95-100) 67.7 % (95-100) 78.5 % (95-100) Arterial Blood Base Excess 12.9 (-2-2) 12.1 (-2-2) 14.6 (-2-2) Amrit Test Positive Positive Positive White Blood Count 8.4 K/UL (4.8-10.8) Red Blood Count 3.13 M/UL (4.20-5.40) Hemoglobin 9.6 G/DL (12.0-16.0) Hematocrit 30.6 % (37.0-47.0) Mean Corpuscular Volume 98 FL (80-99) Mean Corpuscular Hemoglobin 30.6 PG (27.0-31.0) Mean Corpuscular Hemoglobin Concent 31.3 G/DL (32.0-36.0) Red Cell Distribution Width 16.0 % (11.6-14.8) Platelet Count 105 K/UL (150-450) Mean Platelet Volume 8.9 FL (6.5-10.1) Neutrophils (%) (Auto) 82.6 % (45.0-75.0) Lymphocytes (%) (Auto) 11.3 % (20.0-45.0) Monocytes (%) (Auto) 2.1 % (1.0-10.0) Eosinophils (%) (Auto) 3.5 % (0.0-3.0) Basophils (%) (Auto) 0.5 % (0.0-2.0) Sodium Level 141 MMOL/L (136-145) Potassium Level 3.8 MMOL/L (3.5-5.1) Chloride Level 104 MMOL/L (98-107) Carbon Dioxide Level 38 MMOL/L (21-32) Blood Urea Nitrogen 17 mg/dL (7-18) Creatinine 0.6 MG/DL (0.55-1.30) Estimat Glomerular Filtration Rate > 60 mL/min (>60) Glucose Level 131 MG/DL (74-106) Uric Acid 1.7 MG/DL (2.6-7.2) Calcium Level 7.6 MG/DL (8.5-10.1) Phosphorus Level 2.7 MG/DL (2.5-4.9) Magnesium Level 2.1 MG/DL (1.8-2.4) Total Bilirubin 0.5 MG/DL (0.2-1.0) Gamma Glutamyl Transpeptidase 123 U/L (5-85) Aspartate Amino Transf (AST/SGOT) 57 U/L (15-37) Alanine Aminotransferase (ALT/SGPT) 52 U/L (12-78) Alkaline Phosphatase 150 U/L (46-116) C-Reactive Protein, Quantitative 13.5 mg/dL (0.00-0.90) Pro-B-Type Natriuretic Peptide 1297 pg/mL (0-125) Total Protein 5.5 G/DL (6.4-8.2) Albumin 1.0 G/DL (3.4-5.0) Globulin 4.5 g/dL Albumin/Globulin Ratio 0.2 (1.0-2.7) Test 07/07/20 03:30 White Blood Count 7.7 K/UL (4.8-10.8) Red Blood Count 3.01 M/UL (4.20-5.40) Hemoglobin 9.1 G/DL (12.0-16.0) Hematocrit 29.6 % (37.0-47.0) Mean Corpuscular Volume 98 FL (80-99) Mean Corpuscular Hemoglobin 30.1 PG (27.0-31.0) Mean Corpuscular Hemoglobin Concent 30.6 G/DL (32.0-36.0) Red Cell Distribution Width 16.0 % (11.6-14.8) Platelet Count 116 K/UL (150-450) Mean Platelet Volume 10.4 FL (6.5-10.1) Neutrophils (%) (Auto) 82.2 % (45.0-75.0) Lymphocytes (%) (Auto) 7.2 % (20.0-45.0) Monocytes (%) (Auto) 3.4 % (1.0-10.0) Eosinophils (%) (Auto) 5.2 % (0.0-3.0) Basophils (%) (Auto) 2.0 % (0.0-2.0) Sodium Level 141 MMOL/L (136-145) Potassium Level 4.3 MMOL/L (3.5-5.1) Chloride Level 105 MMOL/L (98-107) Carbon Dioxide Level 38 MMOL/L (21-32) Anion Gap -2 mmol/L (5-15) Blood Urea Nitrogen 15 mg/dL (7-18) Creatinine 0.4 MG/DL (0.55-1.30) Estimat Glomerular Filtration Rate > 60 mL/min (>60) Glucose Level 138 MG/DL (74-106) Calcium Level 7.9 MG/DL (8.5-10.1) Height (Feet): 5 Height (Inches): 2.00 Weight (Pounds): 138 Objective Physical Exam Vitals: reviewed, abnormal - Interpreted as low by me General: GCS 15 - Sometimes slightly confused, non-toxic, mild distress Head: normocephalic, moist mucus membranes Neck: supple Respiratory: no retraction, no accessory muscle use, respiratory distress - Minimal with tachypnea, crackles Cardiovascular: regular rate, rhythm, no edema Gastrointestinal: normal inspection, non tender, soft Genitourinary: no CVA tenderness Musculoskeletal: back normal Neurologic: alert, oriented x3, grossly normal Psychiatric: mood/affect normal - sometimes confused Skin: no rash, warm/dry Jj Swann MD Jul 07, 2020 06:44
--- NOTE | 2020-07-07 07:44 | NUR ---
NURSE HAND-OFF REPORT: Latest Vital Signs: Temperature 98.0 , Pulse 108 , B/P 142 /70 , Respiratory Rate 25 , O2 SAT 88 , Mechanical Ventilator, O2 Flow Rate . Vital Sign Comment: EKG Rhythm: Sinus Tachycardia Rhythm change?: N Notified?: Y -Dr. Sewell see nurses note MD Response: No New Orders Received Latest Carney Fall Score: 50 Fall Risk: High Risk Safety Measures: Call light Within Reach, Bed Alarm Zone 2, Side Rails Side Rails x3, Bed position Low and Locked. Fall Precautions: Yellow Socks Door Sign Patient Fall Education Report given to will woodward using sbar.
--- NOTE | 2020-07-07 07:45 | NUR ---
NURSE NOTES: Received report from Kathrine AUSTIN.
[2020-07-07] MEDS: Pantoprazole Inj IVP SCH ×2 (08:48→20:02)
[2020-07-07] MEDS: Cefepime HCl 1 GM in D5W 55 ML IVPB SCH (08:49)
[2020-07-07] MEDS: Vitamin D 1000 units Tab GT SCH (08:49)
[2020-07-07] MEDS: Carvedilol 6.25mg Tab ORAL SCH ×2 (08:49→20:02)
--- NOTE | 2020-07-07 08:51 | NUR ---
RADIOLOGY DEPT., CHEST X-RAY DONE.-P.DYE
--- NOTE | 2020-07-07 08:55 | NUR ---
NURSE NOTES: Pt. in bed, sedated -2 RASS. No s/sx of distress. ETT in placed with vent setting AC20/VT400/Fi O2 of 100%/P12. No grimacing noted. HOB elevated at all times. OGT feeding in placed running Glucerna 1.2 at 55cc/hr. No n/v noted. Tolerating well. F/C in placed patent/intact draining richelle colored urine. Bilateral chest tube in placed patent/intact. PICC line at right upper arm in placed patent/intact. Bed in low position, locked. Call light within reach. Will cont. to monitor.
--- NOTE | 2020-07-07 09:30 | NUR ---
NURSE NOTES: Seen by Dr. Carreon with [facility].
--- NOTE | 2020-07-07 09:39 | Infectious Diseases Prog Note ---
Assessment/Plan Assessment/Plan A; Fever Sepsis COVID19 pneumonia Hypoxic respiratory failure Acute kidney injury, resolving Hyperglycemia, DM type 2 Bilateral pneumothorax Leukocytosis resolved Anemia P; Finished Remdesivir & Dexamethasone course Continue Cefepime Poor prognosis, DNR status Subjective ROS Limited/Unobtainable: Yes Constitutional: Denies: fever Allergies: Coded Allergies: No Known Allergies (Unverified , 06/17/20) Objective Last 24 Hour Vital Signs Date Time Temp Pulse Resp B/P (MAP) Pulse Ox O2 Delivery O2 Flow Rate FiO2 07/07/20 09:00 104 21 132/69 (90) 89 07/07/20 08:49 105 122/67 07/07/20 08:00 98.6 105 26 122/67 (85) 89 07/07/20 08:00 104 07/07/20 07:00 108 25 142/70 (94) 88 07/07/20 07:00 23 Mechanical Ventilator 100 07/07/20 07:00 23 142/70 Mechanical Ventilator 100 07/07/20 06:00 22 Mechanical Ventilator 100 07/07/20 06:00 25 145/65 Mechanical Ventilator 100 07/07/20 06:00 107 20 134/69 (90) 88 07/07/20 05:32 22 Mechanical Ventilator 100 07/07/20 05:00 106 24 128/73 (91) 88 07/07/20 05:00 100 07/07/20 05:00 22 Mechanical Ventilator 100 07/07/20 05:00 22 132/59 Mechanical Ventilator 100 07/07/20 04:00 100 07/07/20 04:00 107 07/07/20 04:00 22 Mechanical Ventilator 07/07/20 04:00 23 130/88 Mechanical Ventilator 100 07/07/20 04:00 98.0 102 27 117/75 (89) 93 07/07/20 04:00 Mechanical Ventilator Mechanical Ventilator 07/07/20 03:41 101 23 100 07/07/20 03:00 101 23 93/52 (66) 91 07/07/20 03:00 22 Mechanical Ventilator 100 07/07/20 03:00 23 118/64 Mechanical Ventilator 100 07/07/20 02:00 99 22 89/59 (69) 90 07/07/20 02:00 22 Mechanical Ventilator 100 07/07/20 02:00 22 110/80 Mechanical Ventilator 100 07/07/20 01:00 100 22 94/57 (69) 89 07/07/20 01:00 25 Mechanical Ventilator 100 07/07/20 01:00 22 110/60 Mechanical Ventilator 100 07/07/20 00:00 Mechanical Ventilator Mechanical Ventilator 07/07/20 00:00 22 Mechanical Ventilator 100 07/07/20 00:00 22 97/48 Mechanical Ventilator 100 07/07/20 00:00 97.8 100 22 97/58 (71) 92 07/07/20 00:00 100 07/06/20 23:39 102 26 100 07/06/20 23:00 103 23 107/56 (73) 89 07/06/20 23:00 22 Mechanical Ventilator 100 07/06/20 23:00 22 116/64 Mechanical Ventilator 100 07/06/20 22:00 106 21 127/65 (85) 85 07/06/20 22:00 27 Mechanical Ventilator 100 07/06/20 22:00 27 127/65 Mechanical Ventilator 100 07/06/20 21:10 27 144/80 Mechanical Ventilator 100 07/06/20 21:00 99.0 103 28 144/80 (101) 86 07/06/20 21:00 20 Mechanical Ventilator 100 07/06/20 21:00 27 110/64 Mechanical Ventilator 100 07/06/20 20:33 99 100/65 07/06/20 20:06 24 Mechanical Ventilator 100 07/06/20 20:00 99 07/06/20 20:00 97 22 105/58 (74) 91 07/06/20 20:00 18 Mechanical Ventilator 100 07/06/20 20:00 27 100/60 Mechanical Ventilator 100 07/06/20 20:00 100 07/06/20 20:00 Mechanical Ventilator Mechanical Ventilator 07/06/20 19:52 98 25 100 07/06/20 19:00 98 24 108/52 (70) 90 07/06/20 19:00 21 Mechanical Ventilator 100 07/06/20 19:00 23 94/54 Mechanical Ventilator 100 07/06/20 18:00 99 24 109/60 (76) 89 07/06/20 18:00 24 Mechanical Ventilator 100 07/06/20 18:00 24 109/60 Mechanical Ventilator 100 07/06/20 17:00 98 23 111/62 (78) 90 07/06/20 17:00 22 Mechanical Ventilator 100 07/06/20 17:00 22 106/58 Mechanical Ventilator 100 07/06/20 16:01 96 07/06/20 16:00 18 Mechanical Ventilator 100 07/06/20 16:00 24 94/53 Mechanical Ventilator 100 07/06/20 16:00 Mechanical Ventilator Mechanical Ventilator 07/06/20 16:00 97.8 97 25 92/54 (67) 87 07/06/20 16:00 100 07/06/20 15:00 23 Mechanical Ventilator 90 07/06/20 15:00 24 103/62 Mechanical Ventilator 100 07/06/20 15:00 99 24 103/62 (76) 87 07/06/20 14:00 100 24 109/62 (78) 87 07/06/20 14:00 25 Mechanical Ventilator 90 07/06/20 14:00 25 102/57 Mechanical Ventilator 100 07/06/20 13:24 101 25 100 07/06/20 13:00 106 23 108/60 (76) 87 07/06/20 13:00 23 Mechanical Ventilator 100 07/06/20 13:00 23 100/53 Mechanical Ventilator 100 07/06/20 12:14 110 07/06/20 12:00 Mechanical Ventilator Mechanical Ventilator 07/06/20 12:00 100 07/06/20 12:00 26 Mechanical Ventilator 100 07/06/20 12:00 26 125/65 Mechanical Ventilator 100 07/06/20 12:00 99.6 111 28 120/69 (86) 78 07/06/20 11:45 106 27 102/54 (70) 81 07/06/20 11:30 105 23 101/59 (73) 83 07/06/20 11:00 109 21 122/68 (86) 84 07/06/20 11:00 24 Mechanical Ventilator 90 07/06/20 11:00 24 119/61 Mechanical Ventilator 100 07/06/20 10:00 22 Mechanical Ventilator 90 07/06/20 10:00 22 143/70 Mechanical Ventilator 100 07/06/20 10:00 105 26 129/68 (88) 79 07/06/20 09:45 102 26 96/53 (67) 77 Height (Feet): 5 Height (Inches): 2.00 Weight (Pounds): 138 HEENT: other - orally intubated Respiratory/Chest: other - on ventilator, QWP9=430%, bilateral chest tubes Cardiovascular: tachycardia Abdomen: soft, non tender, other - OG tube Extremities: other - edema Neurologic/Psychiatric: other - sedated Laboratory Tests Test 07/07/20 03:30 White Blood Count 7.7 K/UL (4.8-10.8) Red Blood Count 3.01 M/UL (4.20-5.40) L Hemoglobin 9.1 G/DL (12.0-16.0) L Hematocrit 29.6 % (37.0-47.0) L Mean Corpuscular Volume 98 FL (80-99) Mean Corpuscular Hemoglobin 30.1 PG (27.0-31.0) Mean Corpuscular Hemoglobin Concent 30.6 G/DL (32.0-36.0) L Red Cell Distribution Width 16.0 % (11.6-14.8) H Platelet Count 116 K/UL (150-450) L Mean Platelet Volume 10.4 FL (6.5-10.1) H Neutrophils (%) (Auto) 82.2 % (45.0-75.0) H Lymphocytes (%) (Auto) 7.2 % (20.0-45.0) L Monocytes (%) (Auto) 3.4 % (1.0-10.0) Eosinophils (%) (Auto) 5.2 % (0.0-3.0) H Basophils (%) (Auto) 2.0 % (0.0-2.0) Sodium Level 141 MMOL/L (136-145) Potassium Level 4.3 MMOL/L (3.5-5.1) Chloride Level 105 MMOL/L (98-107) Carbon Dioxide Level 38 MMOL/L (21-32) H Anion Gap -2 mmol/L (5-15) L Blood Urea Nitrogen 15 mg/dL (7-18) Creatinine 0.4 MG/DL (0.55-1.30) L Estimat Glomerular Filtration Rate > 60 mL/min (>60) Glucose Level 138 MG/DL (74-106) H Calcium Level 7.9 MG/DL (8.5-10.1) L Current Medications Medications (Trade) Dose Ordered Sig/Maya Route PRN Reason Start Time Stop Time Status Last Admin Dose Admin Acetaminophen (Tylenol) 500 mg Q4H PRN ORAL Mild Pain (Pain Scale 1-3) 06/18/20 00:15 07/18/20 00:14 06/24/20 17:51 Acetaminophen (Tylenol) 500 mg Q4H PRN ORAL Temp >100.5 06/18/20 00:15 07/18/20 00:14 06/29/20 20:01 Carvedilol (Coreg) 6.25 mg EVERY 12 HOURS ORAL 06/22/20 21:00 07/22/20 20:59 07/07/20 08:49 Cefepime HCl 1 gm/ Dextrose 55 ml @ 110 mls/hr DAILY IVPB 07/04/20 09:00 07/08/20 12:00 07/07/20 08:49 Chlorhexidine Gluconate (Sissy-Hex 2%) 1 applic DAILY@2000 TOPIC 06/28/20 20:00 09/26/20 19:59 07/06/20 20:07 Dextrose (Dextrose 50%) 25 ml Q30M PRN IV Hypoglycemia 06/18/20 14:15 09/16/20 14:14 Dextrose (Dextrose 50%) 50 ml Q30M PRN IV Hypoglycemia 06/18/20 14:15 09/16/20 14:14 Docusate Sodium (Colace) 100 mg EVERY 8 HOURS NG 07/02/20 14:00 07/28/20 12:59 07/07/20 05:30 Furosemide (Lasix) 40 mg DAILY IV 06/28/20 17:45 07/28/20 16:59 07/07/20 08:48 Haloperidol Lactate (Haldol) 10 mg Q6H PRN IM Agitation 06/23/20 11:30 08/07/20 11:29 06/23/20 11:34 Insulin Aspart (NovoLOG) while NPO Q6HR SUBQ 06/18/20 18:00 09/16/20 17:59 07/07/20 05:31 Midazolam HCl 100 ml @ 0 mls/hr Q24H PRN IV To Patient Comfort 07/06/20 07:00 07/08/20 06:59 07/07/20 05:32 Pantoprazole (Protonix) 40 mg EVERY 12 HOURS IVP 06/18/20 21:00 07/18/20 20:59 07/07/20 08:48 Sodium Chloride 1,000 ml @ 50 mls/hr Q20H IV 06/26/20 08:00 07/26/20 07:59 07/07/20 04:00 Vitamin D (Vitamin D) 2,000 unit DAILY GT 06/29/20 10:30 07/29/20 10:29 07/07/20 08:49 Raji Turpin MD Jul 07, 2020 09:39
--- NOTE | 2020-07-07 10:11 | Psychiatric Progress Note ---
Psychiatry Progress Note Psychiatry Progress Note Subjective the pt is the same Medications Current Medications Medications (Trade) Dose Ordered Sig/Maya Route PRN Reason Start Time Stop Time Status Last Admin Dose Admin Acetaminophen (Tylenol) 500 mg Q4H PRN ORAL Mild Pain (Pain Scale 1-3) 06/18/20 00:15 07/18/20 00:14 06/24/20 17:51 Acetaminophen (Tylenol) 500 mg Q4H PRN ORAL Temp >100.5 06/18/20 00:15 07/18/20 00:14 06/29/20 20:01 Carvedilol (Coreg) 6.25 mg EVERY 12 HOURS ORAL 06/22/20 21:00 07/22/20 20:59 07/07/20 08:49 Cefepime HCl 1 gm/ Dextrose 55 ml @ 110 mls/hr DAILY IVPB 07/04/20 09:00 07/08/20 12:00 07/07/20 08:49 Chlorhexidine Gluconate (Sissy-Hex 2%) 1 applic DAILY@2000 TOPIC 06/28/20 20:00 09/26/20 19:59 07/06/20 20:07 Dextrose (Dextrose 50%) 25 ml Q30M PRN IV Hypoglycemia 06/18/20 14:15 09/16/20 14:14 Dextrose (Dextrose 50%) 50 ml Q30M PRN IV Hypoglycemia 06/18/20 14:15 09/16/20 14:14 Docusate Sodium (Colace) 100 mg EVERY 8 HOURS NG 07/02/20 14:00 07/28/20 12:59 07/07/20 05:30 Furosemide (Lasix) 40 mg DAILY IV 06/28/20 17:45 07/28/20 16:59 07/07/20 08:48 Haloperidol Lactate (Haldol) 10 mg Q6H PRN IM Agitation 06/23/20 11:30 08/07/20 11:29 06/23/20 11:34 Insulin Aspart (NovoLOG) while NPO Q6HR SUBQ 06/18/20 18:00 09/16/20 17:59 07/07/20 05:31 Midazolam HCl 100 ml @ 0 mls/hr Q24H PRN IV To Patient Comfort 07/06/20 07:00 07/08/20 06:59 07/07/20 05:32 Pantoprazole (Protonix) 40 mg EVERY 12 HOURS IVP 06/18/20 21:00 07/18/20 20:59 07/07/20 08:48 Sodium Chloride 1,000 ml @ 50 mls/hr Q20H IV 06/26/20 08:00 07/26/20 07:59 07/07/20 04:00 Vitamin D (Vitamin D) 2,000 unit DAILY GT 06/29/20 10:30 07/29/20 10:29 07/07/20 08:49 Neurological/Psychiatric: Reports: anxiety, depressed, emotional problems Allergies: Coded Allergies: No Known Allergies (Unverified , 06/17/20) Objective Data Height (Feet): 5 Height (Inches): 2.00 Weight (Pounds): 138 General Appearance: mild distress Additional Comments: Grethel I Acute toxic encephalopathy. Grethel II Deferred. Grethel III As above, respiratory failure. Grethel IV Low. Grethel V 10. PLAN: 1. cont the restraints. 2. Haldol IM p.r.n. when needed for weaning off in addition to Midazolam that was ordered by the envelope sealer. Assessment/Plan Status: progressing, unchanged Suellen Carlson MD Jul 07, 2020 10:11
--- NOTE | 2020-07-07 10:28 | Cardiac Electrophysiology PN ---
Assessment/Plan Assessment/Plan 1. Respiratory failure due to COVID pneumonia. Intubated on 100% Fio2. PEEP 12 Echo showed Nl EF 2. Bilateral pneumothoraces. S/P bilateral chest tube placement. Right chest tube repositioned 07/04/20 3. Troponin elevation. Levels are low and flat could be demand ischemia vs Renal failure EKG shows sinus tachycardia at 110 beats per minute. 4. Hypernatremia with sodium of 155. Resolved 5. Hypertension, on Coreg 6.25 mg b.i.d. and Lasix 6. DNR DW RN Subjective Subjective Intubated in ICU on Fentanyl and Versed drip. Chest tubes have minimal drainage On 100% Fio2, PEEP 8 . Off pressors DNR Objective Last 24 Hour Vital Signs Date Time Temp Pulse Resp B/P (MAP) Pulse Ox O2 Delivery O2 Flow Rate FiO2 07/07/20 09:00 104 21 132/69 (90) 89 07/07/20 08:49 105 122/67 07/07/20 08:00 98.6 105 26 122/67 (85) 89 07/07/20 08:00 104 07/07/20 07:00 108 25 142/70 (94) 88 07/07/20 07:00 23 Mechanical Ventilator 100 07/07/20 07:00 23 142/70 Mechanical Ventilator 100 07/07/20 06:00 22 Mechanical Ventilator 100 07/07/20 06:00 25 145/65 Mechanical Ventilator 100 07/07/20 06:00 107 20 134/69 (90) 88 07/07/20 05:32 22 Mechanical Ventilator 100 07/07/20 05:00 106 24 128/73 (91) 88 07/07/20 05:00 100 07/07/20 05:00 22 Mechanical Ventilator 100 07/07/20 05:00 22 132/59 Mechanical Ventilator 100 07/07/20 04:00 100 07/07/20 04:00 107 07/07/20 04:00 22 Mechanical Ventilator 07/07/20 04:00 23 130/88 Mechanical Ventilator 100 07/07/20 04:00 98.0 102 27 117/75 (89) 93 07/07/20 04:00 Mechanical Ventilator Mechanical Ventilator 07/07/20 03:41 101 23 100 07/07/20 03:00 101 23 93/52 (66) 91 07/07/20 03:00 22 Mechanical Ventilator 100 07/07/20 03:00 23 118/64 Mechanical Ventilator 100 07/07/20 02:00 99 22 89/59 (69) 90 07/07/20 02:00 22 Mechanical Ventilator 100 07/07/20 02:00 22 110/80 Mechanical Ventilator 100 07/07/20 01:00 100 22 94/57 (69) 89 07/07/20 01:00 25 Mechanical Ventilator 100 07/07/20 01:00 22 110/60 Mechanical Ventilator 100 07/07/20 00:00 Mechanical Ventilator Mechanical Ventilator 07/07/20 00:00 22 Mechanical Ventilator 100 07/07/20 00:00 22 97/48 Mechanical Ventilator 100 07/07/20 00:00 97.8 100 22 97/58 (71) 92 07/07/20 00:00 100 07/06/20 23:39 102 26 100 07/06/20 23:00 103 23 107/56 (73) 89 07/06/20 23:00 22 Mechanical Ventilator 100 07/06/20 23:00 22 116/64 Mechanical Ventilator 100 07/06/20 22:00 106 21 127/65 (85) 85 07/06/20 22:00 27 Mechanical Ventilator 100 07/06/20 22:00 27 127/65 Mechanical Ventilator 100 07/06/20 21:10 27 144/80 Mechanical Ventilator 100 07/06/20 21:00 99.0 103 28 144/80 (101) 86 07/06/20 21:00 20 Mechanical Ventilator 100 07/06/20 21:00 27 110/64 Mechanical Ventilator 100 07/06/20 20:33 99 100/65 07/06/20 20:06 24 Mechanical Ventilator 100 07/06/20 20:00 99 07/06/20 20:00 97 22 105/58 (74) 91 07/06/20 20:00 18 Mechanical Ventilator 100 07/06/20 20:00 27 100/60 Mechanical Ventilator 100 07/06/20 20:00 100 07/06/20 20:00 Mechanical Ventilator Mechanical Ventilator 07/06/20 19:52 98 25 100 07/06/20 19:00 98 24 108/52 (70) 90 07/06/20 19:00 21 Mechanical Ventilator 100 07/06/20 19:00 23 94/54 Mechanical Ventilator 100 07/06/20 18:00 99 24 109/60 (76) 89 2/15/21 18:00 24 Mechanical Ventilator 100 07/06/20 18:00 24 109/60 Mechanical Ventilator 100 07/06/20 17:00 98 23 111/62 (78) 90 07/06/20 17:00 22 Mechanical Ventilator 100 07/06/20 17:00 22 106/58 Mechanical Ventilator 100 07/06/20 16:01 96 07/06/20 16:00 18 Mechanical Ventilator 100 07/06/20 16:00 24 94/53 Mechanical Ventilator 100 07/06/20 16:00 Mechanical Ventilator Mechanical Ventilator 07/06/20 16:00 97.8 97 25 92/54 (67) 87 07/06/20 16:00 100 07/06/20 15:00 23 Mechanical Ventilator 90 07/06/20 15:00 24 103/62 Mechanical Ventilator 100 07/06/20 15:00 99 24 103/62 (76) 87 07/06/20 14:00 100 24 109/62 (78) 87 07/06/20 14:00 25 Mechanical Ventilator 90 07/06/20 14:00 25 102/57 Mechanical Ventilator 100 07/06/20 13:24 101 25 100 07/06/20 13:00 106 23 108/60 (76) 87 07/06/20 13:00 23 Mechanical Ventilator 100 07/06/20 13:00 23 100/53 Mechanical Ventilator 100 07/06/20 12:14 110 07/06/20 12:00 Mechanical Ventilator Mechanical Ventilator 07/06/20 12:00 100 07/06/20 12:00 26 Mechanical Ventilator 100 07/06/20 12:00 26 125/65 Mechanical Ventilator 100 07/06/20 12:00 99.6 111 28 120/69 (86) 78 07/06/20 11:45 106 27 102/54 (70) 81 07/06/20 11:30 105 23 101/59 (73) 83 07/06/20 11:00 109 21 122/68 (86) 84 07/06/20 11:00 24 Mechanical Ventilator 90 07/06/20 11:00 24 119/61 Mechanical Ventilator 100 Intake and Output 07/06/20 07/07/20 19:00 07:00 Intake Total 1614.17 ml 1620 ml Output Total 424 ml 360 ml Balance 1190.17 ml 1260 ml Intake Free Water 60 ml 120 ml IV Total 894.17 ml 840 ml Tube Feeding 660 ml 660 ml Output Urine Total 330 ml 360 ml Chest Tube Drainage Total 94 ml Laboratory Tests Test 07/07/20 03:30 White Blood Count 7.7 K/UL (4.8-10.8) Red Blood Count 3.01 M/UL (4.20-5.40) L Hemoglobin 9.1 G/DL (12.0-16.0) L Hematocrit 29.6 % (37.0-47.0) L Mean Corpuscular Volume 98 FL (80-99) Mean Corpuscular Hemoglobin 30.1 PG (27.0-31.0) Mean Corpuscular Hemoglobin Concent 30.6 G/DL (32.0-36.0) L Red Cell Distribution Width 16.0 % (11.6-14.8) H Platelet Count 116 K/UL (150-450) L Mean Platelet Volume 10.4 FL (6.5-10.1) H Neutrophils (%) (Auto) 82.2 % (45.0-75.0) H Lymphocytes (%) (Auto) 7.2 % (20.0-45.0) L Monocytes (%) (Auto) 3.4 % (1.0-10.0) Eosinophils (%) (Auto) 5.2 % (0.0-3.0) H Basophils (%) (Auto) 2.0 % (0.0-2.0) Sodium Level 141 MMOL/L (136-145) Potassium Level 4.3 MMOL/L (3.5-5.1) Chloride Level 105 MMOL/L (98-107) Carbon Dioxide Level 38 MMOL/L (21-32) H Anion Gap -2 mmol/L (5-15) L Blood Urea Nitrogen 15 mg/dL (7-18) Creatinine 0.4 MG/DL (0.55-1.30) L Estimat Glomerular Filtration Rate > 60 mL/min (>60) Glucose Level 138 MG/DL (74-106) H Calcium Level 7.9 MG/DL (8.5-10.1) L Objective HEAD AND NECK: No JVD. Orally intubated LUNGS: Coarse rhonchi bilaterally. Bilateral chest tubes in. CARDIOVASCULAR: Regular S1 and S2 and no murmur ABDOMEN: Soft. EXTREMITIES: No pitting edema. Toluie,Maxwell MD Jul 07, 2020 10:28
--- NOTE | 2020-07-07 10:30 | Nephrology Progress Note ---
Assessment/Plan Problem List: (1) LEONARDO (acute kidney injury) (2) Dehydration (3) DMII (diabetes mellitus, type 2) (4) Pneumonia due to COVID-19 virus (5) Hypoxia Assessment 70-year-old female presents with COVID-19 pneumonia and hypoxia On admission has BUN of 77 and creatinine of 1.6. Renal failure most likely prerenal and dehydration with possible underlying chronic kidney disease Patient has elevated inflammatory markers Hypoalbuminemia Electrolyte abnormalities Hyperglycemia Plan July 07: FiO2 100%. Renal parameters stable. Remains intubated with bilateral chest tube. Continue per pulmonary. July 06: Labs reviewed. Renal parameters stable. ABG suggests retaining of CO2. Patient continues to be on FiO2 100%. Has bilateral chest tubes. Remains intubated on ventilator. Continue to monitor renal parameters. July 05: No CHEM panel drawn today. Status quo. Pulmonary status unchanged. We will continue to monitor renal parameters and electrolytes. Continue per consultants. July 04: Status quo. On ventilator. Full code. Bilateral chest tube. Renal parameters stable. July 03: Patient remains full code. Intubated on ventilator. Has chest tube. Labs reviewed. Renal parameters stable. Continue per consultants. July 02: Remains intubated. Has a bilateral chest tube. He is full code. Labs reviewed. Abnormal electrolyte addressed. Continue per consultants. July 01: Remains intubated. Continues to have bilateral chest tube. Full code. Labs reviewed. Renal parameters stable. Low phosphorus addressed. Discussed with NORMAN Lyon. June 30: Full code. Intubated. Bilateral chest tube. As reviewed. Abnormal electrolytes addressed. June 29: Full code. Intubated. Bilateral chest tube. Unstable pulmonary status. ABG ordered. Electrolyte imbalance addressed. Discussed with NORMAN Montalvo. June 28: Labs reviewed. Abnormal electrolytes addressed. Patient remains full code. Continue per consultants. June 27: No chemistry panel done today. Remains full code. Medication list reviewed. Continue per consultants. Will monitor electrolytes and renal panel in a.m. June 26: Status quo. Remains full code. Labs reviewed. Main IV changed to normal saline 50 cc an hour. Continue per consultants and pulmonary. June 25: Remains intubated. Has bilateral chest tube. Full code. Labs reviewed. Abnormal electrolytes addressed. Albumin bolus given. Continue to monitor renal parameters. Poor prognosis. June 24: Patient in ICU. Intubated. Has bilateral chest tube. Labs reviewed. Renal parameters stable. Low phosphorus addressed. Continue per consultants. Full code. Poor prognosis. June 23: Patient in ICU. Intubated. Due for insertion of a chest tube. Has pneumothorax. Renal parameters are stable. Serum sodium rising. Will adjust IV fluid. Continue per consultants. Patient full code. Prognosis poor. June 22: Labs reviewed. Remains on BiPAP which is not changed to high flow oxygen due to pneumothorax found on chest x-ray. Serum sodium 155. Continues on D5W. Electrolytes within normal limits. Check 2D echocardiogram. Coreg for blood pressure and heart rate. June 21: Status quo. On BiPAP. Full code. Serum sodium 153. Continue D5W. Continue to monitor electrolytes. Continue per consultants. June 20: Patient full code. On BiPAP. Labs reviewed. Serum sodium rising. Will increase D5W to 75 cc an hour. Continue to monitor electrolytes. June 19: IV changed to D5W. Monitor blood sugar. Monitor electrolytes. Medication list reviewed. Patient is being treated for COVID-19 pneumonia. Patient is full code. Previously Pulmonary support IV antibiotics Slow hydration Avoid nephrotoxic Monitor renal parameters Per orders Subjective ROS Limited/Unobtainable: Yes Objective Objective Last 24 Hour Vital Signs Date Time Temp Pulse Resp B/P (MAP) Pulse Ox O2 Delivery O2 Flow Rate FiO2 07/07/20 09:00 104 21 132/69 (90) 89 07/07/20 08:49 105 122/67 07/07/20 08:00 Mechanical Ventilator Mechanical Ventilator 07/07/20 08:00 98.6 105 26 122/67 (85) 89 07/07/20 08:00 104 07/07/20 07:00 108 25 142/70 (94) 88 07/07/20 07:00 23 Mechanical Ventilator 100 07/07/20 07:00 23 142/70 Mechanical Ventilator 100 07/07/20 06:00 22 Mechanical Ventilator 100 07/07/20 06:00 25 145/65 Mechanical Ventilator 100 07/07/20 06:00 107 20 134/69 (90) 88 07/07/20 05:32 22 Mechanical Ventilator 100 07/07/20 05:00 106 24 128/73 (91) 88 07/07/20 05:00 100 07/07/20 05:00 22 Mechanical Ventilator 100 07/07/20 05:00 22 132/59 Mechanical Ventilator 100 07/07/20 04:00 100 07/07/20 04:00 107 07/07/20 04:00 22 Mechanical Ventilator 07/07/20 04:00 23 130/88 Mechanical Ventilator 100 07/07/20 04:00 98.0 102 27 117/75 (89) 93 07/07/20 04:00 Mechanical Ventilator Mechanical Ventilator 07/07/20 03:41 101 23 100 07/07/20 03:00 101 23 93/52 (66) 91 07/07/20 03:00 22 Mechanical Ventilator 100 07/07/20 03:00 23 118/64 Mechanical Ventilator 100 07/07/20 02:00 99 22 89/59 (69) 90 07/07/20 02:00 22 Mechanical Ventilator 100 07/07/20 02:00 22 110/80 Mechanical Ventilator 100 07/07/20 01:00 100 22 94/57 (69) 89 07/07/20 01:00 25 Mechanical Ventilator 100 07/07/20 01:00 22 110/60 Mechanical Ventilator 100 07/07/20 00:00 Mechanical Ventilator Mechanical Ventilator 07/07/20 00:00 22 Mechanical Ventilator 100 07/07/20 00:00 22 97/48 Mechanical Ventilator 100 07/07/20 00:00 97.8 100 22 97/58 (71) 92 07/07/20 00:00 100 07/06/20 23:39 102 26 100 07/06/20 23:00 103 23 107/56 (73) 89 07/06/20 23:00 22 Mechanical Ventilator 100 07/06/20 23:00 22 116/64 Mechanical Ventilator 100 07/06/20 22:00 106 21 127/65 (85) 85 07/06/20 22:00 27 Mechanical Ventilator 100 07/06/20 22:00 27 127/65 Mechanical Ventilator 100 07/06/20 21:10 27 144/80 Mechanical Ventilator 100 07/06/20 21:00 99.0 103 28 144/80 (101) 86 07/06/20 21:00 20 Mechanical Ventilator 100 07/06/20 21:00 27 110/64 Mechanical Ventilator 100 07/06/20 20:33 99 100/65 07/06/20 20:06 24 Mechanical Ventilator 100 07/06/20 20:00 99 07/06/20 20:00 97 22 105/58 (74) 91 07/06/20 20:00 18 Mechanical Ventilator 100 07/06/20 20:00 27 100/60 Mechanical Ventilator 100 07/06/20 20:00 100 07/06/20 20:00 Mechanical Ventilator Mechanical Ventilator 07/06/20 19:52 98 25 100 07/06/20 19:00 98 24 108/52 (70) 90 07/06/20 19:00 21 Mechanical Ventilator 100 07/06/20 19:00 23 94/54 Mechanical Ventilator 100 07/06/20 18:00 99 24 109/60 (76) 89 07/06/20 18:00 24 Mechanical Ventilator 100 07/06/20 18:00 24 109/60 Mechanical Ventilator 100 07/06/20 17:00 98 23 111/62 (78) 90 07/06/20 17:00 22 Mechanical Ventilator 100 07/06/20 17:00 22 106/58 Mechanical Ventilator 100 07/06/20 16:01 96 07/06/20 16:00 18 Mechanical Ventilator 100 07/06/20 16:00 24 94/53 Mechanical Ventilator 100 07/06/20 16:00 Mechanical Ventilator Mechanical Ventilator 07/06/20 16:00 97.8 97 25 92/54 (67) 87 07/06/20 16:00 100 07/06/20 15:00 23 Mechanical Ventilator 90 07/06/20 15:00 24 103/62 Mechanical Ventilator 100 07/06/20 15:00 99 24 103/62 (76) 87 07/06/20 14:00 100 24 109/62 (78) 87 07/06/20 14:00 25 Mechanical Ventilator 90 07/06/20 14:00 25 102/57 Mechanical Ventilator 100 07/06/20 13:24 101 25 100 07/06/20 13:00 106 23 108/60 (76) 87 07/06/20 13:00 23 Mechanical Ventilator 100 07/06/20 13:00 23 100/53 Mechanical Ventilator 100 07/06/20 12:14 110 07/06/20 12:00 Mechanical Ventilator Mechanical Ventilator 07/06/20 12:00 100 07/06/20 12:00 26 Mechanical Ventilator 100 07/06/20 12:00 26 125/65 Mechanical Ventilator 100 07/06/20 12:00 99.6 111 28 120/69 (86) 78 07/06/20 11:45 106 27 102/54 (70) 81 2/15/21 11:30 105 23 101/59 (73) 83 07/06/20 11:00 109 21 122/68 (86) 84 07/06/20 11:00 24 Mechanical Ventilator 90 07/06/20 11:00 24 119/61 Mechanical Ventilator 100 Intake and Output 07/06/20 07/07/20 19:00 07:00 Intake Total 1614.17 ml 1620 ml Output Total 424 ml 360 ml Balance 1190.17 ml 1260 ml Intake Free Water 60 ml 120 ml IV Total 894.17 ml 840 ml Tube Feeding 660 ml 660 ml Output Urine Total 330 ml 360 ml Chest Tube Drainage Total 94 ml Current Medications Medications (Trade) Dose Ordered Sig/Maya Route PRN Reason Start Time Stop Time Status Last Admin Dose Admin Acetaminophen (Tylenol) 500 mg Q4H PRN ORAL Mild Pain (Pain Scale 1-3) 06/18/20 00:15 07/18/20 00:14 06/24/20 17:51 Acetaminophen (Tylenol) 500 mg Q4H PRN ORAL Temp >100.5 06/18/20 00:15 07/18/20 00:14 06/29/20 20:01 Carvedilol (Coreg) 6.25 mg EVERY 12 HOURS ORAL 06/22/20 21:00 07/22/20 20:59 07/07/20 08:49 Cefepime HCl 1 gm/ Dextrose 55 ml @ 110 mls/hr DAILY IVPB 07/04/20 09:00 07/08/20 12:00 07/07/20 08:49 Chlorhexidine Gluconate (Sissy-Hex 2%) 1 applic DAILY@2000 TOPIC 06/28/20 20:00 09/26/20 19:59 07/06/20 20:07 Dextrose (Dextrose 50%) 25 ml Q30M PRN IV Hypoglycemia 06/18/20 14:15 09/16/20 14:14 Dextrose (Dextrose 50%) 50 ml Q30M PRN IV Hypoglycemia 06/18/20 14:15 09/16/20 14:14 Docusate Sodium (Colace) 100 mg EVERY 8 HOURS NG 07/02/20 14:00 07/28/20 12:59 07/07/20 05:30 Furosemide (Lasix) 40 mg DAILY IV 06/28/20 17:45 07/28/20 16:59 07/07/20 08:48 Haloperidol Lactate (Haldol) 10 mg Q6H PRN IM Agitation 06/23/20 11:30 08/07/20 11:29 06/23/20 11:34 Insulin Aspart (NovoLOG) while NPO Q6HR SUBQ 06/18/20 18:00 09/16/20 17:59 07/07/20 05:31 Midazolam HCl 100 ml @ 0 mls/hr Q24H PRN IV To Patient Comfort 07/06/20 07:00 07/08/20 06:59 07/07/20 05:32 Pantoprazole (Protonix) 40 mg EVERY 12 HOURS IVP 06/18/20 21:00 07/18/20 20:59 07/07/20 08:48 Sodium Chloride 1,000 ml @ 50 mls/hr Q20H IV 06/26/20 08:00 07/26/20 07:59 07/07/20 04:00 Vitamin D (Vitamin D) 2,000 unit DAILY GT 06/29/20 10:30 07/29/20 10:29 07/07/20 08:49 Laboratory Tests 07/07/20 03:30: White Blood Count 7.7, Red Blood Count 3.01L, Hemoglobin 9.1L, Hematocrit 29.6L, Mean Corpuscular Volume 98, Mean Corpuscular Hemoglobin 30.1, Mean Corpuscular Hemoglobin Concent 30.6L, Red Cell Distribution Width 16.0H, Platelet Count 116L , Mean Platelet Volume 10.4H, Neutrophils (%) (Auto) 82.2H, Lymphocytes (%) (Auto) 7.2L, Monocytes (%) (Auto) 3.4, Eosinophils (%) (Auto) 5.2H, Basophils (%) (Auto) 2.0, Sodium Level 141, Potassium Level 4.3, Chloride Level 105, Carbon Dioxide Level 38H, Anion Gap -2L, Blood Urea Nitrogen 15, Creatinine 0.4L , Estimat Glomerular Filtration Rate > 60, Glucose Level 138H, Calcium Level 7.9L Height (Feet): 5 Height (Inches): 2.00 Weight (Pounds): 138 General Appearance: no apparent distress EENT: other - Intubated on ventilator Cardiovascular: tachycardia Respiratory/Chest: other - Bilateral chest tube Abdomen: distended Raza De Jesus MD Jul 07, 2020 10:30
--- NOTE | 2020-07-07 10:56 | NUR ---
NURSE NOTES: Seen by Dr. Dajuan Turpin with [facility].
--- NOTE | 2020-07-07 11:31 | Pulmonology Progress Note ---
Subjective ROS Limited/Unobtainable: Yes Interval Events: Remains intubated; bilateral chest tubes in place Constitutional: Denies: fever HEENT: Repors: no symptoms Respiratory: Reports: shortness of breath Cardiovascular: Reports: no symptoms Gastrointestinal/Abdominal: Reports: no symptoms Allergies: Coded Allergies: No Known Allergies (Unverified , 06/17/20) All Systems: reviewed and negative except above Objective Last 24 Hour Vital Signs Date Time Temp Pulse Resp B/P (MAP) Pulse Ox O2 Delivery O2 Flow Rate FiO2 07/07/20 10:00 105 29 150/77 (101) 86 07/07/20 10:00 29 Endotracheal Tube 100 07/07/20 10:00 29 150/77 Endotracheal Tube 100 07/07/20 09:00 104 21 132/69 (90) 89 07/07/20 09:00 21 Endotracheal Tube 100 07/07/20 09:00 21 132/69 Endotracheal Tube 100 07/07/20 08:49 105 122/67 07/07/20 08:00 Mechanical Ventilator Mechanical Ventilator 07/07/20 08:00 98.6 105 26 122/67 (85) 89 07/07/20 08:00 104 07/07/20 08:00 26 Endotracheal Tube 100 07/07/20 08:00 26 122/67 Endotracheal Tube 100 07/07/20 07:50 107 34 100 07/07/20 07:00 108 25 142/70 (94) 88 07/07/20 07:00 23 Mechanical Ventilator 100 07/07/20 07:00 23 142/70 Mechanical Ventilator 100 07/07/20 06:00 22 Mechanical Ventilator 100 07/07/20 06:00 25 145/65 Mechanical Ventilator 100 07/07/20 06:00 107 20 134/69 (90) 88 07/07/20 05:32 22 Mechanical Ventilator 100 07/07/20 05:00 106 24 128/73 (91) 88 07/07/20 05:00 100 07/07/20 05:00 22 Mechanical Ventilator 100 07/07/20 05:00 22 132/59 Mechanical Ventilator 100 07/07/20 04:00 100 07/07/20 04:00 107 07/07/20 04:00 22 Mechanical Ventilator 07/07/20 04:00 23 130/88 Mechanical Ventilator 100 07/07/20 04:00 98.0 102 27 117/75 (89) 93 2/16/21 04:00 Mechanical Ventilator Mechanical Ventilator 07/07/20 03:41 101 23 100 07/07/20 03:00 101 23 93/52 (66) 91 07/07/20 03:00 22 Mechanical Ventilator 100 07/07/20 03:00 23 118/64 Mechanical Ventilator 100 07/07/20 02:00 99 22 89/59 (69) 90 07/07/20 02:00 22 Mechanical Ventilator 100 07/07/20 02:00 22 110/80 Mechanical Ventilator 100 07/07/20 01:00 100 22 94/57 (69) 89 07/07/20 01:00 25 Mechanical Ventilator 100 07/07/20 01:00 22 110/60 Mechanical Ventilator 100 07/07/20 00:00 Mechanical Ventilator Mechanical Ventilator 07/07/20 00:00 22 Mechanical Ventilator 100 07/07/20 00:00 22 97/48 Mechanical Ventilator 100 07/07/20 00:00 97.8 100 22 97/58 (71) 92 07/07/20 00:00 100 07/06/20 23:39 102 26 100 07/06/20 23:00 103 23 107/56 (73) 89 07/06/20 23:00 22 Mechanical Ventilator 100 07/06/20 23:00 22 116/64 Mechanical Ventilator 100 07/06/20 22:00 106 21 127/65 (85) 85 07/06/20 22:00 27 Mechanical Ventilator 100 07/06/20 22:00 27 127/65 Mechanical Ventilator 100 07/06/20 21:10 27 144/80 Mechanical Ventilator 100 07/06/20 21:00 99.0 103 28 144/80 (101) 86 07/06/20 21:00 20 Mechanical Ventilator 100 07/06/20 21:00 27 110/64 Mechanical Ventilator 100 07/06/20 20:33 99 100/65 07/06/20 20:06 24 Mechanical Ventilator 100 07/06/20 20:00 99 07/06/20 20:00 97 22 105/58 (74) 91 07/06/20 20:00 18 Mechanical Ventilator 100 07/06/20 20:00 27 100/60 Mechanical Ventilator 100 07/06/20 20:00 100 07/06/20 20:00 Mechanical Ventilator Mechanical Ventilator 07/06/20 19:52 98 25 100 07/06/20 19:00 98 24 108/52 (70) 90 07/06/20 19:00 21 Mechanical Ventilator 100 07/06/20 19:00 23 94/54 Mechanical Ventilator 100 07/06/20 18:00 99 24 109/60 (76) 89 07/06/20 18:00 24 Mechanical Ventilator 100 07/06/20 18:00 24 109/60 Mechanical Ventilator 100 07/06/20 17:00 98 23 111/62 (78) 90 07/06/20 17:00 22 Mechanical Ventilator 100 07/06/20 17:00 22 106/58 Mechanical Ventilator 100 07/06/20 16:01 96 07/06/20 16:00 18 Mechanical Ventilator 100 07/06/20 16:00 24 94/53 Mechanical Ventilator 100 07/06/20 16:00 Mechanical Ventilator Mechanical Ventilator 07/06/20 16:00 97.8 97 25 92/54 (67) 87 07/06/20 16:00 100 07/06/20 15:00 23 Mechanical Ventilator 90 07/06/20 15:00 24 103/62 Mechanical Ventilator 100 07/06/20 15:00 99 24 103/62 (76) 87 07/06/20 14:00 100 24 109/62 (78) 87 07/06/20 14:00 25 Mechanical Ventilator 90 07/06/20 14:00 25 102/57 Mechanical Ventilator 100 07/06/20 13:24 101 25 100 07/06/20 13:00 106 23 108/60 (76) 87 07/06/20 13:00 23 Mechanical Ventilator 100 07/06/20 13:00 23 100/53 Mechanical Ventilator 100 07/06/20 12:14 110 07/06/20 12:00 Mechanical Ventilator Mechanical Ventilator 07/06/20 12:00 100 07/06/20 12:00 26 Mechanical Ventilator 100 07/06/20 12:00 26 125/65 Mechanical Ventilator 100 07/06/20 12:00 99.6 111 28 120/69 (86) 78 07/06/20 11:45 106 27 102/54 (70) 81 Intake and Output 07/06/20 07/07/20 19:00 07:00 Intake Total 1614.17 ml 1620 ml Output Total 424 ml 360 ml Balance 1190.17 ml 1260 ml Intake Free Water 60 ml 120 ml IV Total 894.17 ml 840 ml Tube Feeding 660 ml 660 ml Output Urine Total 330 ml 360 ml Chest Tube Drainage Total 94 ml General Appearance: no acute distress HEENT: atraumatic Respiratory: crackles/rales Cardiovascular: normal rate Abdomen: soft, non tender Laboratory Tests 07/07/20 03:30: White Blood Count 7.7, Red Blood Count 3.01L, Hemoglobin 9.1L, Hematocrit 29.6L, Mean Corpuscular Volume 98, Mean Corpuscular Hemoglobin 30.1, Mean Corpuscular Hemoglobin Concent 30.6L, Red Cell Distribution Width 16.0H, Platelet Count 116L , Mean Platelet Volume 10.4H, Neutrophils (%) (Auto) 82.2H, Lymphocytes (%) (Auto) 7.2L, Monocytes (%) (Auto) 3.4, Eosinophils (%) (Auto) 5.2H, Basophils (%) (Auto) 2.0, Sodium Level 141, Potassium Level 4.3, Chloride Level 105, Carbon Dioxide Level 38H, Anion Gap -2L, Blood Urea Nitrogen 15, Creatinine 0.4L , Estimat Glomerular Filtration Rate > 60, Glucose Level 138H, Calcium Level 7.9L Current Medications Medications (Trade) Dose Ordered Sig/Maya Route PRN Reason Start Time Stop Time Status Last Admin Dose Admin Acetaminophen (Tylenol) 500 mg Q4H PRN ORAL Mild Pain (Pain Scale 1-3) 06/18/20 00:15 07/18/20 00:14 06/24/20 17:51 Acetaminophen (Tylenol) 500 mg Q4H PRN ORAL Temp >100.5 06/18/20 00:15 07/18/20 00:14 06/29/20 20:01 Carvedilol (Coreg) 6.25 mg EVERY 12 HOURS ORAL 06/22/20 21:00 07/22/20 20:59 07/07/20 08:49 Cefepime HCl 1 gm/ Dextrose 55 ml @ 110 mls/hr DAILY IVPB 07/04/20 09:00 07/08/20 12:00 07/07/20 08:49 Chlorhexidine Gluconate (Sissy-Hex 2%) 1 applic DAILY@2000 TOPIC 06/28/20 20:00 09/26/20 19:59 07/06/20 20:07 Dextrose (Dextrose 50%) 25 ml Q30M PRN IV Hypoglycemia 1/28/21 14:15 09/16/20 14:14 Dextrose (Dextrose 50%) 50 ml Q30M PRN IV Hypoglycemia 06/18/20 14:15 09/16/20 14:14 Docusate Sodium (Colace) 100 mg EVERY 8 HOURS NG 07/02/20 14:00 07/28/20 12:59 07/07/20 05:30 Furosemide (Lasix) 40 mg DAILY IV 06/28/20 17:45 07/28/20 16:59 07/07/20 08:48 Haloperidol Lactate (Haldol) 10 mg Q6H PRN IM Agitation 06/23/20 11:30 08/07/20 11:29 06/23/20 11:34 Insulin Aspart (NovoLOG) while NPO Q6HR SUBQ 06/18/20 18:00 09/16/20 17:59 07/07/20 05:31 Midazolam HCl 100 ml @ 0 mls/hr Q24H PRN IV To Patient Comfort 07/06/20 07:00 07/08/20 06:59 07/07/20 05:32 Pantoprazole (Protonix) 40 mg EVERY 12 HOURS IVP 06/18/20 21:00 07/18/20 20:59 07/07/20 08:48 Sodium Chloride 1,000 ml @ 50 mls/hr Q20H IV 06/26/20 08:00 07/26/20 07:59 07/07/20 04:00 Vitamin D (Vitamin D) 2,000 unit DAILY GT 06/29/20 10:30 07/29/20 10:29 07/07/20 08:49 Assessment/Plan Assessment/Plan 1. COVID-19 pneumonia -Intubated, on 100% FiO2. PEEP 5-10. -SaO2 90% -On Decadron, s/p remdesivir 2. Leukocytosis -Resolved 3. Elevated D-dimer -On Lovenox 40 subcu QD for DVT prophylaxis 4. Renal insufficiency -Improved 5. Anemia of chronic disease -Hematology oncology following 6. Sepsis -Status post antibiotics, fluid resuscitation 7. Pneumothorax 06/22/20 - b/l subcutaneous emphysema, pneumomediastinum, probable small left pneumothorax & ? trace right pneumothorax. -P[place] in place - placed CT by surgery (bilateral) - Will attempt wean when FiO2 decreases - CXR shows R PTX; will advise CT surgery to adjust R CT Discussed with son Now DNAR PaO2 44 on 100% FiO2 and PEEP 12 Grave prognosis Charlie Sewell MD Jul 07, 2020 11:31
--- NOTE | 2020-07-07 13:45 | NUR ---
NURSE NOTES: Pt. no s/sx of distress. No grimacing noted. Suctioned rendered. Tolerated well.
--- NOTE | 2020-07-07 14:24 | NUR ---
CASE MANAGEMENT:REVIEW 07/07/20 SI: COVID PNEUMONIA ~ INTUBATED. PNTHX W/BILATERAL CHEST TUBES 98.6 105 26 122/67 89% ON VENT SUPPORT W/100% FIO2 PEEP~12.0 H/H-9.1/29.6 CO2+38 IS:VERSED GTT PRN IV CEFEPIME Q12 IV LASIX QD IVF@50/HR COREG NG Q12HR IV PROTONIX Q12H : ICU STATUS DCP: FROM HOME PLAN: SUPPORTIVE CARE BILATERAL CHEST TUBES TO SUCTION WEAN OXYGEN ABLE
--- NOTE | 2020-07-07 14:50 | Diagnostic Imaging Report ---
Indication: Cough Technique: One view of the chest Comparison: 07/05/2020 Findings: Right chest tube remains in place. Despite this, interim increase in size of right pneumothorax. Left chest tube remains in place and there is no left pneumothorax. The heart is upper limits normal in size. Bilateral infiltrates are unchanged Impression: Increased right pneumothorax, despite apparent adequate position of right chest tube. Dr. Frazier notified Otherwise stable findings
--- NOTE | 2020-07-07 15:00 | NUR ---
NURSE NOTES: Seen by Dr. Frazier and filled chest tube chamber and ordered cxr for tomorrow.
--- NOTE | 2020-07-07 15:12 | NUR ---
INSURANCE FAXED CLINCALS AND REVIEW TO [facility] T: [phone] F: [phone]
--- NOTE | 2020-07-07 17:19 | Surgery Progress Note ---
Surgery Progress Note Subjective Procedure Performed 1. right chest tube insertion 2. left chest tube insertion Additional Comments Noted chest x-ray finding. Discussed with radiology. At bedside evaluated chest tubes not functional. Pleur-evacs were not functioning appropriately. They were fixed. Now functioning. Will repeat chest x-ray. Saturation stable. Objective Last 24 Hour Vital Signs Date Time Temp Pulse Resp B/P (MAP) Pulse Ox O2 Delivery O2 Flow Rate FiO2 07/07/20 17:00 92 30 136/78 (97) 86 07/07/20 16:00 Mechanical Ventilator Mechanical Ventilator 07/07/20 16:00 98.9 89 29 129/81 (97) 87 07/07/20 16:00 90 07/07/20 16:00 100 07/07/20 15:30 92 24 81/54 (63) 94 07/07/20 15:15 93 25 82/56 (65) 94 07/07/20 15:15 25 Endotracheal Tube 100 07/07/20 15:00 23 Endotracheal Tube 100 07/07/20 15:00 22 95/59 Endotracheal Tube 100 07/07/20 15:00 93 22 95/59 (71) 94 07/07/20 14:45 21 Endotracheal Tube 100 07/07/20 14:45 21 92/61 Endotracheal Tube 100 07/07/20 14:45 95 21 92/61 (71) 92 07/07/20 14:30 21 100 07/07/20 14:30 21 94/65 Endotracheal Tube 100 07/07/20 14:30 95 21 94/65 (75) 92 07/07/20 14:15 29 Endotracheal Tube 100 07/07/20 14:15 29 110/66 Endotracheal Tube 100 07/07/20 14:15 96 29 110/66 (81) 90 07/07/20 14:00 94 29 116/75 (89) 90 07/07/20 14:00 29 Endotracheal Tube 100 07/07/20 14:00 29 116/75 Endotracheal Tube 100 07/07/20 13:55 99 24 100 07/07/20 13:45 25 95/52 Endotracheal Tube 100 07/07/20 13:45 98 25 95/52 (66) 94 07/07/20 13:30 26 93/57 Endotracheal Tube 100 07/07/20 13:30 98 26 93/57 (69) 94 07/07/20 13:15 99 24 98/60 (73) 93 07/07/20 13:15 24 98/60 Endotracheal Tube 100 07/07/20 13:00 31 Endotracheal Tube 100 07/07/20 13:00 31 98/64 Endotracheal Tube 100 07/07/20 13:00 99 31 98/64 (75) 92 07/07/20 12:00 Mechanical Ventilator Mechanical Ventilator 07/07/20 12:00 101 07/07/20 12:00 27 Endotracheal Tube 100 07/07/20 12:00 27 105/64 Endotracheal Tube 100 07/07/20 12:00 97.6 101 27 105/64 (78) 89 07/07/20 12:00 100 07/07/20 11:00 24 Endotracheal Tube 100 07/07/20 11:00 24 99/68 Endotracheal Tube 100 07/07/20 11:00 103 24 99/68 (78) 90 07/07/20 10:00 105 29 150/77 (101) 86 07/07/20 10:00 29 Endotracheal Tube 100 07/07/20 10:00 29 150/77 Endotracheal Tube 100 07/07/20 09:00 104 21 132/69 (90) 89 07/07/20 09:00 21 Endotracheal Tube 100 07/07/20 09:00 21 132/69 Endotracheal Tube 100 07/07/20 08:49 105 122/67 07/07/20 08:00 Mechanical Ventilator Mechanical Ventilator 07/07/20 08:00 98.6 105 26 122/67 (85) 89 07/07/20 08:00 104 07/07/20 08:00 26 Endotracheal Tube 100 07/07/20 08:00 26 122/67 Endotracheal Tube 100 07/07/20 07:50 107 34 100 07/07/20 07:00 108 25 142/70 (94) 88 07/07/20 07:00 23 Mechanical Ventilator 100 07/07/20 07:00 23 142/70 Mechanical Ventilator 100 07/07/20 06:00 22 Mechanical Ventilator 100 07/07/20 06:00 25 145/65 Mechanical Ventilator 100 07/07/20 06:00 107 20 134/69 (90) 88 07/07/20 05:32 22 Mechanical Ventilator 100 07/07/20 05:00 106 24 128/73 (91) 88 07/07/20 05:00 100 07/07/20 05:00 22 Mechanical Ventilator 100 07/07/20 05:00 22 132/59 Mechanical Ventilator 100 07/07/20 04:00 100 07/07/20 04:00 107 07/07/20 04:00 22 Mechanical Ventilator 07/07/20 04:00 23 130/88 Mechanical Ventilator 100 07/07/20 04:00 98.0 102 27 117/75 (89) 93 07/07/20 04:00 Mechanical Ventilator Mechanical Ventilator 07/07/20 03:41 101 23 100 07/07/20 03:00 101 23 93/52 (66) 91 07/07/20 03:00 22 Mechanical Ventilator 100 07/07/20 03:00 23 118/64 Mechanical Ventilator 100 07/07/20 02:00 99 22 89/59 (69) 90 07/07/20 02:00 22 Mechanical Ventilator 100 07/07/20 02:00 22 110/80 Mechanical Ventilator 100 07/07/20 01:00 100 22 94/57 (69) 89 07/07/20 01:00 25 Mechanical Ventilator 100 07/07/20 01:00 22 110/60 Mechanical Ventilator 100 07/07/20 00:00 Mechanical Ventilator Mechanical Ventilator 07/07/20 00:00 22 Mechanical Ventilator 100 07/07/20 00:00 22 97/48 Mechanical Ventilator 100 07/07/20 00:00 97.8 100 22 97/58 (71) 92 07/07/20 00:00 100 07/06/20 23:39 102 26 100 07/06/20 23:00 103 23 107/56 (73) 89 07/06/20 23:00 22 Mechanical Ventilator 100 07/06/20 23:00 22 116/64 Mechanical Ventilator 100 07/06/20 22:00 106 21 127/65 (85) 85 07/06/20 22:00 27 Mechanical Ventilator 100 07/06/20 22:00 27 127/65 Mechanical Ventilator 100 07/06/20 21:10 27 144/80 Mechanical Ventilator 100 07/06/20 21:00 99.0 103 28 144/80 (101) 86 07/06/20 21:00 20 Mechanical Ventilator 100 07/06/20 21:00 27 110/64 Mechanical Ventilator 100 07/06/20 20:33 99 100/65 07/06/20 20:06 24 Mechanical Ventilator 100 07/06/20 20:00 99 2/15/21 20:00 97 22 105/58 (74) 91 07/06/20 20:00 18 Mechanical Ventilator 100 07/06/20 20:00 27 100/60 Mechanical Ventilator 100 07/06/20 20:00 100 07/06/20 20:00 Mechanical Ventilator Mechanical Ventilator 07/06/20 19:52 98 25 100 07/06/20 19:00 98 24 108/52 (70) 90 07/06/20 19:00 21 Mechanical Ventilator 100 07/06/20 19:00 23 94/54 Mechanical Ventilator 100 07/06/20 18:00 99 24 109/60 (76) 89 07/06/20 18:00 24 Mechanical Ventilator 100 07/06/20 18:00 24 109/60 Mechanical Ventilator 100 I&O Intake and Output 07/06/20 07/07/20 19:00 07:00 Intake Total 1614.17 ml 1620 ml Output Total 424 ml 360 ml Balance 1190.17 ml 1260 ml Intake Free Water 60 ml 120 ml IV Total 894.17 ml 840 ml Tube Feeding 660 ml 660 ml Output Urine Total 330 ml 360 ml Chest Tube Drainage Total 94 ml Dressing: saturated Cardiovascular: RSR Respiratory: decreased breath sounds Abdomen: soft, non-tender, non-distended, decreased bowel sounds Extremities: edema, no tenderness, no cyanosis Laboratory Tests Test 07/07/20 03:30 White Blood Count 7.7 K/UL (4.8-10.8) Red Blood Count 3.01 M/UL (4.20-5.40) L Hemoglobin 9.1 G/DL (12.0-16.0) L Hematocrit 29.6 % (37.0-47.0) L Mean Corpuscular Volume 98 FL (80-99) Mean Corpuscular Hemoglobin 30.1 PG (27.0-31.0) Mean Corpuscular Hemoglobin Concent 30.6 G/DL (32.0-36.0) L Red Cell Distribution Width 16.0 % (11.6-14.8) H Platelet Count 116 K/UL (150-450) L Mean Platelet Volume 10.4 FL (6.5-10.1) H Neutrophils (%) (Auto) 82.2 % (45.0-75.0) H Lymphocytes (%) (Auto) 7.2 % (20.0-45.0) L Monocytes (%) (Auto) 3.4 % (1.0-10.0) Eosinophils (%) (Auto) 5.2 % (0.0-3.0) H Basophils (%) (Auto) 2.0 % (0.0-2.0) Sodium Level 141 MMOL/L (136-145) Potassium Level 4.3 MMOL/L (3.5-5.1) Chloride Level 105 MMOL/L (98-107) Carbon Dioxide Level 38 MMOL/L (21-32) H Anion Gap -2 mmol/L (5-15) L Blood Urea Nitrogen 15 mg/dL (7-18) Creatinine 0.4 MG/DL (0.55-1.30) L Estimat Glomerular Filtration Rate > 60 mL/min (>60) Glucose Level 138 MG/DL (74-106) H Calcium Level 7.9 MG/DL (8.5-10.1) L Plan Problems: (1) Renal insufficiency (2) Elevated d-dimer (3) Dehydration (4) LEONARDO (acute kidney injury) (5) DMII (diabetes mellitus, type 2) (6) Hypoxia (7) Pneumonia due to COVID-19 virus (8) PNA (pneumonia) (9) Pneumothorax Assessment & Plan: Bilateral pneumothorax status post bilateral chest tubes. Still on significant vent support. leak performed. Continue weaning vent. Continue with chest tubes. Will monitor and manage chest tubes accordingly. Thank you for let me to participate in patient's care Continue bilateral chest tubes on suction the airleak is worse her peak pressures are high prognosis overall is guarded. Imaging reviewed Bilateral air leaks noted high pressures continue chest tube suction recurrent right ptx tube fixed imaging pleuravac fixed tubes functional Unfortunately patient continues to be very ill on vent support with bilateral chest tubes in place. She continues to reaccumulate pneumothorax as this type functional tubes. Occasionally tubes or Pleur-evac needs to be changed and immediately shows improvement but then again declines. Prognosis is very guarded. We will continue to follow thank you for let me participate in patient's care Elpidio Frazier Jul 07, 2020 17:19
--- NOTE | 2020-07-07 17:50 | NUR ---
NURSE NOTES: Pt. carefully given a sponge bath. No grimacing noted.
--- NOTE | 2020-07-07 19:10 | NUR ---
NURSE HAND-OFF REPORT: Latest Vital Signs: Temperature 98.9 , Pulse 93 , B/P 144 /77 , Respiratory Rate 32 , O2 SAT 84 , Endotracheal Tube, O2 Flow Rate . Vital Sign Comment: wnl EKG Rhythm: Sinus Rhythm Rhythm change?: N Notified?: Chante Sewell see nurses note MD Response: No New Orders Received Latest Carney Fall Score: 50 Fall Risk: High Risk Safety Measures: Call light Within Reach, Bed Alarm Zone 2, Side Rails Side Rails x3, Bed position Low and Locked. Fall Precautions: Yellow Socks Door Sign Patient Fall Education Report given to Fidelia AUSTIN.
--- NOTE | 2020-07-07 19:30 | NUR ---
NURSE NOTES: Received patient from Patricia AUSTIN. Patient in bed with eyes closed. Sinus rhythm on the monitor with HR 98. Orally intubated on AC 20, VT 400 peep 12 fio2 100%. Bilateral Chest tubes connected to low intermittent suction, no leakage noted, bilateral dressings remain dry and intact. OGT running Glucerna 1.2@ 55 ml/hr, 10 ml residual noted at this time. TONY picc running Fentanyl @ 40 mcg/min, NS @ 50 ml/hr. Versed on hold at this time. Dressing remains dry and intact. Martin cath draining richelle colored urine by gravity. Bed in lowest position, side rails upx3. No signs of distress noted. Will continue to monitor.
[2020-07-07] MEDS: Dyna-Hex 2% Top Sol 2oz TOPIC SCH (20:02)
--- NOTE | 2020-07-07 20:28 | General Progress Note ---
Subjective ROS Limited/Unobtainable: Yes Allergies: Coded Allergies: No Known Allergies (Unverified , 06/17/20) Objective Last 24 Hour Vital Signs Date Time Temp Pulse Resp B/P (MAP) Pulse Ox O2 Delivery O2 Flow Rate FiO2 07/07/20 20:02 91 156/91 07/07/20 19:24 92 32 100 07/07/20 19:00 33 153/89 Mechanical Ventilator 100 07/07/20 19:00 98.1 92 29 152/88 (109) 83 07/07/20 18:00 93 32 144/77 (99) 84 07/07/20 18:00 32 144/77 Endotracheal Tube 100 07/07/20 17:00 92 30 136/78 (97) 86 07/07/20 17:00 30 136/78 Endotracheal Tube 100 07/07/20 16:00 Mechanical Ventilator Mechanical Ventilator 07/07/20 16:00 98.9 89 29 129/81 (97) 87 07/07/20 16:00 29 129/81 Endotracheal Tube 100 07/07/20 16:00 90 07/07/20 16:00 100 07/07/20 15:30 92 24 81/54 (63) 94 07/07/20 15:15 93 25 82/56 (65) 94 07/07/20 15:15 25 Endotracheal Tube 100 07/07/20 15:00 23 Endotracheal Tube 100 07/07/20 15:00 22 95/59 Endotracheal Tube 100 07/07/20 15:00 93 22 95/59 (71) 94 07/07/20 14:45 21 Endotracheal Tube 100 07/07/20 14:45 21 92/61 Endotracheal Tube 100 07/07/20 14:45 95 21 92/61 (71) 92 07/07/20 14:30 21 100 07/07/20 14:30 21 94/65 Endotracheal Tube 100 07/07/20 14:30 95 21 94/65 (75) 92 07/07/20 14:15 29 Endotracheal Tube 100 07/07/20 14:15 29 110/66 Endotracheal Tube 100 07/07/20 14:15 96 29 110/66 (81) 90 07/07/20 14:00 94 29 116/75 (89) 90 07/07/20 14:00 29 Endotracheal Tube 100 07/07/20 14:00 29 116/75 Endotracheal Tube 100 07/07/20 13:55 99 24 100 07/07/20 13:45 25 95/52 Endotracheal Tube 100 07/07/20 13:45 98 25 95/52 (66) 94 07/07/20 13:30 26 93/57 Endotracheal Tube 100 07/07/20 13:30 98 26 93/57 (69) 94 07/07/20 13:15 99 24 98/60 (73) 93 07/07/20 13:15 24 98/60 Endotracheal Tube 100 07/07/20 13:00 31 Endotracheal Tube 100 07/07/20 13:00 31 98/64 Endotracheal Tube 100 07/07/20 13:00 99 31 98/64 (75) 92 07/07/20 12:00 Mechanical Ventilator Mechanical Ventilator 07/07/20 12:00 101 07/07/20 12:00 27 Endotracheal Tube 100 07/07/20 12:00 27 105/64 Endotracheal Tube 100 07/07/20 12:00 97.6 101 27 105/64 (78) 89 07/07/20 12:00 100 07/07/20 11:00 24 Endotracheal Tube 100 07/07/20 11:00 24 99/68 Endotracheal Tube 100 07/07/20 11:00 103 24 99/68 (78) 90 07/07/20 10:00 105 29 150/77 (101) 86 07/07/20 10:00 29 Endotracheal Tube 100 07/07/20 10:00 29 150/77 Endotracheal Tube 100 07/07/20 09:00 104 21 132/69 (90) 89 07/07/20 09:00 21 Endotracheal Tube 100 07/07/20 09:00 21 132/69 Endotracheal Tube 100 07/07/20 08:49 105 122/67 07/07/20 08:00 Mechanical Ventilator Mechanical Ventilator 07/07/20 08:00 98.6 105 26 122/67 (85) 89 07/07/20 08:00 104 07/07/20 08:00 26 Endotracheal Tube 100 07/07/20 08:00 26 122/67 Endotracheal Tube 100 07/07/20 07:50 107 34 100 07/07/20 07:00 108 25 142/70 (94) 88 07/07/20 07:00 23 Mechanical Ventilator 100 07/07/20 07:00 23 142/70 Mechanical Ventilator 100 07/07/20 06:00 22 Mechanical Ventilator 100 07/07/20 06:00 25 145/65 Mechanical Ventilator 100 07/07/20 06:00 107 20 134/69 (90) 88 07/07/20 05:32 22 Mechanical Ventilator 100 07/07/20 05:00 106 24 128/73 (91) 88 07/07/20 05:00 100 07/07/20 05:00 22 Mechanical Ventilator 100 07/07/20 05:00 22 132/59 Mechanical Ventilator 100 07/07/20 04:00 100 07/07/20 04:00 107 07/07/20 04:00 22 Mechanical Ventilator 07/07/20 04:00 23 130/88 Mechanical Ventilator 100 07/07/20 04:00 98.0 102 27 117/75 (89) 93 07/07/20 04:00 Mechanical Ventilator Mechanical Ventilator 07/07/20 03:41 101 23 100 07/07/20 03:00 101 23 93/52 (66) 91 07/07/20 03:00 22 Mechanical Ventilator 100 07/07/20 03:00 23 118/64 Mechanical Ventilator 100 07/07/20 02:00 99 22 89/59 (69) 90 07/07/20 02:00 22 Mechanical Ventilator 100 07/07/20 02:00 22 110/80 Mechanical Ventilator 100 07/07/20 01:00 100 22 94/57 (69) 89 07/07/20 01:00 25 Mechanical Ventilator 100 07/07/20 01:00 22 110/60 Mechanical Ventilator 100 07/07/20 00:00 Mechanical Ventilator Mechanical Ventilator 07/07/20 00:00 22 Mechanical Ventilator 100 07/07/20 00:00 22 97/48 Mechanical Ventilator 100 07/07/20 00:00 97.8 100 22 97/58 (71) 92 07/07/20 00:00 100 07/06/20 23:39 102 26 100 07/06/20 23:00 103 23 107/56 (73) 89 07/06/20 23:00 22 Mechanical Ventilator 100 07/06/20 23:00 22 116/64 Mechanical Ventilator 100 07/06/20 22:00 106 21 127/65 (85) 85 07/06/20 22:00 27 Mechanical Ventilator 100 07/06/20 22:00 27 127/65 Mechanical Ventilator 100 2/15/21 21:10 27 144/80 Mechanical Ventilator 100 07/06/20 21:00 99.0 103 28 144/80 (101) 86 07/06/20 21:00 20 Mechanical Ventilator 100 07/06/20 21:00 27 110/64 Mechanical Ventilator 100 07/06/20 20:33 99 100/65 Intake and Output 07/06/20 07/07/20 19:00 07:00 Intake Total 1614.17 ml 1620 ml Output Total 424 ml 360 ml Balance 1190.17 ml 1260 ml Intake Free Water 60 ml 120 ml IV Total 894.17 ml 840 ml Tube Feeding 660 ml 660 ml Output Urine Total 330 ml 360 ml Chest Tube Drainage Total 94 ml Laboratory Tests 07/07/20 03:30: White Blood Count 7.7, Red Blood Count 3.01L, Hemoglobin 9.1L, Hematocrit 29.6L, Mean Corpuscular Volume 98, Mean Corpuscular Hemoglobin 30.1, Mean Corpuscular Hemoglobin Concent 30.6L, Red Cell Distribution Width 16.0H, Platelet Count 116L , Mean Platelet Volume 10.4H, Neutrophils (%) (Auto) 82.2H, Lymphocytes (%) ( Auto) 7.2L, Monocytes (%) (Auto) 3.4, Eosinophils (%) (Auto) 5.2H, Basophils (%) (Auto) 2.0, Sodium Level 141, Potassium Level 4.3, Chloride Level 105, Carbon Dioxide Level 38H, Anion Gap -2L, Blood Urea Nitrogen 15, Creatinine 0.4L, Estimat Glomerular Filtration Rate > 60, Glucose Level 138H, Calcium Level 7.9L Height (Feet): 5 Height (Inches): 2.00 Weight (Pounds): 138 Assessment/Plan Problem List: (1) Elevated d-dimer ICD Codes: R79.89 - Other specified abnormal findings of blood chemistry SNOMED: 252516786 (2) Renal insufficiency ICD Codes: N28.9 - Disorder of kidney and ureter, unspecified SNOMED: 262891609, 611534069 (3) PNA (pneumonia) ICD Codes: J18.9 - Pneumonia, unspecified organism SNOMED: 597467467 (4) Dehydration ICD Codes: E86.0 - Dehydration SNOMED: 79930055 (5) LEONARDO (acute kidney injury) ICD Codes: N17.9 - Acute kidney failure, unspecified SNOMED: 5317536, 25767731 (6) Hypoxia ICD Codes: R09.02 - Hypoxemia; J12.82 - Pneumonia due to coronavirus disease 2019 SNOMED: 305043174 (7) Pneumonia due to COVID-19 virus ICD Codes: U07.1 - COVID-19; J12.82 - Pneumonia due to coronavirus disease 2019 SNOMED: 176592811848262792 (8) DMII (diabetes mellitus, type 2) ICD Codes: E11.9 - Type 2 diabetes mellitus without complications SNOMED: 11535078 Status: progressing, unchanged Assessment/Plan: covid + trach per dr thompson intubated niddm full support dehydration poor prognosis bilat chest tube recurrent very poor prognosis Vidya Clayton MD Jul 07, 2020 20:28
[2020-07-07] MEDS: fentaNYL 2500mcg/NS 250ml 250 ML IV SCH (21:11)
--- NOTE | 2020-07-07 22:00 | NUR ---
NURSE NOTES: Patient Left chest tube noted with some leakage at the connection site. Tape removed and secured. No more leakage noted.
[2020-07-08] VITALS (50 sets, daily range): BP systolic 79–157; BP diastolic 50–82
--- NOTE | 2020-07-08 | NUR ---
NURSE NOTES: Blood sugar 153, coverage given per sliding scale. Turned and repositioned for comfort. Chest tube continue to drain Serous fluid. No leaks noted at this time.
--- NOTE | 2020-07-08 02:30 | NUR ---
NURSE NOTES: Morning care done. Left chest tube noted to come out at the side of connection. Secured with tape. Right and left Chest tube continue to drain Serous fluid. VS Stable. No signs of distress noted.
--- NOTE | 2020-07-08 03:39 | NUR ---
NURSE NOTES: Notified RT, Vent alarms Volumes patient is not getting Volumes.
[2020-07-08 04:53] LABS: ANION GAP -4 mmol/L (5-15); BLOOD UREA NITROGEN 18 mg/dL (7-18); CARBON DIOXIDE 39 MMOL/L (21-32); CHLORIDE 103 MMOL/L (98-107); CREATININE 0.4 MG/DL (0.55-1.30); POTASSIUM 3.9 MMOL/L (3.5-5.1); SODIUM 140 MMOL/L (136-145)
[2020-07-08 04:57] LABS: BASOPHILS % (AUTO) 0.8 % (0.0-2.0); EOSINOPHILS % (AUTO) 3.9 % (0.0-3.0); HEMATOCRIT 28.1 % (37.0-47.0); HEMOGLOBIN 8.8 G/DL (12.0-16.0); LYMPHOCYTES % (AUTO) 8.2 % (20.0-45.0); MEAN CORPUSCULAR VOLUME 97 FL (80-99); MONOCYTES % (AUTO) 3.4 % (1.0-10.0); NEUTROPHILS % (AUTO) 83.7 % (45.0-75.0); PLATELET COUNT 132 K/UL (150-450); RED CELL DISTRIBUTION WIDTH 16.5 % (11.6-14.8); WHITE BLOOD COUNT 7.3 K/UL (4.8-10.8)
[2020-07-08] MEDS: Docusate 100mg/10ml Liq NG SCH ×3 (05:13→21:30)
--- NOTE | 2020-07-08 05:30 | NUR ---
NURSE NOTES: Insulin given for coverage per sliding scale. Patient Chest tube continues to drain, No leaks noted.
[2020-07-08] MEDS: NovoLOG Insulin Flexpen SUBQ SCH ×3 (05:35→18:29)
--- NOTE | 2020-07-08 06:36 | NUR ---
CASE MANAGEMENT:REVIEW 07/08/20 SI: COVID PNEUMONIA ~ INTUBATED. PNTHX W/BILATERAL CHEST TUBES 98.1 97 34 120/65 87% ON VENT SUPPORT W/100% FIO2 PEEP~12.0 H/H-8.8/28.1 CO2+39 IS:VERSED GTT FENTANYL GTT IV CEFEPIME Q12 IV LASIX QD IVF@50/HR COREG NG Q12HR IV PROTONIX Q12H : ICU STATUS DCP: FROM HOME PLAN: SUPPORTIVE CARE BILATERAL CHEST TUBES TO SUCTION WEAN OXYGEN ABLE
--- NOTE | 2020-07-08 07:08 | Hematology/Onc Progress Note ---
Assessment/Plan Assessment/Plan Assessment and recs # Leukocytosis with Pneumonia due to COVID-19 virus -> wbc trend 15-->11-->10->17-->18->11->21->9 --> ABX as per id ctx-->off-->cefepime --> imaging does show pna --> anticoag recommended --> on remdesivir # Anemia of chronic disease --> hgb 12->10-->9-->11-->10.8->10-->9.6-->8.8 -> transfuse prn --> r/o hemolysis # Thrombocytopenia due to likely plt destruction, Covid19++ with Hypoxia -> steriods, abx per id --> plt 117-->121-->124->77-->90-->132 --> smear is noted # Elevated ddimer due to covid --> duplex legs -> LOVENOX sq # Renal insufficiency -> per renal care # Sepsis due to above --> abx, fluid resuscitation # Dvt ppx lovenox sq Appreciate consultation and mehran RN Subjective Allergies: Coded Allergies: No Known Allergies (Unverified , 06/17/20) All Systems: reviewed and negative except above Subjective 06/19 sleeping, comfortable, on bipap, meds have been reviewed 06/21 on bipap, labs have been reviewed, no major events 06/22 bipap labs reviewed, meds noted, no bleeding 06/23 bipap labs noted, no bleeding, meds reviewed, mehran rn 06/24 on vent, labs reviewed, meds reviewed 06/25 on vent, with ctx as abx, labs noted, no bleeding 06/26 vent, with ogt, with helms, labs noted, no bleeding plts lower 06/28 labs are pending, on vent, helms intract, no new changes 06/29 icu, on vent, hgb 11, plt 124, meds noted, on ctx 06/30 icu, edematous, is on vent, labs reviewed, abx 07/01 icu, on vent, labs noted, no bleeding, plt 77, labs ordered 07/02 icu, nv, meds noted, no bleeding, plt 91, hgb 9 07/03 icu, nv, meds noted, right chest tube with output, hgb 10 07/05 icu, nv, meds reviewed, labs noted, b/l chest tubes in place 07/06 icu, nv, meds, labs have been ordered, chest tube draining 07/07 icu, chest tubes, on fen, versed, no major changes 217 icu, v, chest xray is noted, with worsening right pneumothorax, labs noted Objective Objective Current Medications Medications (Trade) Dose Ordered Sig/Maya Route PRN Reason Start Time Stop Time Status Last Admin Dose Admin Acetaminophen (Tylenol) 500 mg Q4H PRN ORAL Mild Pain (Pain Scale 1-3) 06/18/20 00:15 07/18/20 00:14 06/24/20 17:51 Acetaminophen (Tylenol) 500 mg Q4H PRN ORAL Temp >100.5 06/18/20 00:15 07/18/20 00:14 06/29/20 20:01 Carvedilol (Coreg) 6.25 mg EVERY 12 HOURS ORAL 06/22/20 21:00 07/22/20 20:59 07/07/20 20:02 Cefepime HCl 1 gm/ Dextrose 55 ml @ 110 mls/hr DAILY IVPB 07/04/20 09:00 07/08/20 12:00 07/07/20 08:49 Chlorhexidine Gluconate (Sissy-Hex 2%) 1 applic DAILY@2000 TOPIC 06/28/20 20:00 09/26/20 19:59 07/07/20 20:02 Dextrose (Dextrose 50%) 25 ml Q30M PRN IV Hypoglycemia 06/18/20 14:15 09/16/20 14:14 Dextrose (Dextrose 50%) 50 ml Q30M PRN IV Hypoglycemia 06/18/20 14:15 09/16/20 14:14 Docusate Sodium (Colace) 100 mg EVERY 8 HOURS NG 07/02/20 14:00 07/28/20 12:59 07/08/20 05:13 Fentanyl Citrate 250 ml @ 1 mls/hr Q24H IV 07/07/20 19:15 07/09/20 19:14 07/07/20 21:11 Furosemide (Lasix) 40 mg DAILY IV 06/28/20 17:45 07/28/20 16:59 07/07/20 08:48 Haloperidol Lactate (Haldol) 10 mg Q6H PRN IM Agitation 06/23/20 11:30 08/07/20 11:29 06/23/20 11:34 Insulin Aspart (NovoLOG) while NPO Q6HR SUBQ 06/18/20 18:00 09/16/20 17:59 07/08/20 05:35 Pantoprazole (Protonix) 40 mg EVERY 12 HOURS IVP 06/18/20 21:00 07/18/20 20:59 07/07/20 20:02 Sodium Chloride 1,000 ml @ 50 mls/hr Q20H IV 06/26/20 08:00 07/26/20 07:59 07/07/20 23:26 Vitamin D (Vitamin D) 2,000 unit DAILY GT 06/29/20 10:30 07/29/20 10:29 07/07/20 08:49 Last 24 Hour Vital Signs Date Time Temp Pulse Resp B/P (MAP) Pulse Ox O2 Delivery O2 Flow Rate FiO2 07/08/20 06:25 30 Mechanical Ventilator 100 07/08/20 06:11 30 120/65 Mechanical Ventilator 100 07/08/20 06:00 97 34 127/66 (86) 87 07/08/20 05:25 24 Mechanical Ventilator 100 07/08/20 05:11 35 147/81 Mechanical Ventilator 100 07/08/20 05:00 97 34 149/81 (103) 87 07/08/20 04:25 32 Mechanical Ventilator 100 07/08/20 04:11 32 117/62 Mechanical Ventilator 100 07/08/20 04:00 98.1 93 32 116/60 (78) 93 07/08/20 04:00 100 07/08/20 04:00 87 07/08/20 04:00 Mechanical Ventilator Mechanical Ventilator Mechanical Ventilator Mechanical Ventilator Mechanical Ventilator 07/08/20 03:25 29 Mechanical Ventilator 100 07/08/20 03:11 29 97/55 Mechanical Ventilator 100 07/08/20 03:00 89 22 121/69 (86) 90 07/08/20 02:25 28 Mechanical Ventilator 100 07/08/20 02:23 85 26 100 07/08/20 02:11 28 99/66 Mechanical Ventilator 100 07/08/20 02:00 87 27 99/57 (71) 93 07/08/20 01:25 27 Mechanical Ventilator 100 07/08/20 01:11 27 101/57 Mechanical Ventilator 100 07/08/20 01:00 83 26 96/60 (72) 93 07/08/20 00:25 26 Mechanical Ventilator 100 07/08/20 00:11 26 100/58 Mechanical Ventilator 100 07/08/20 00:00 Mechanical Ventilator Mechanical Ventilator Mechanical Ventilator Mechanical Ventilator Mechanical Ventilator 07/08/20 00:00 100 07/08/20 00:00 81 07/08/20 00:00 98.3 82 33 97/58 (71) 91 07/07/20 23:25 25 Mechanical Ventilator 100 07/07/20 23:17 82 24 100 07/07/20 23:11 25 101/62 Mechanical Ventilator 100 07/07/20 23:00 82 28 100/65 (77) 92 07/07/20 22:25 27 Mechanical Ventilator 100 07/07/20 22:11 27 104/62 Mechanical Ventilator 100 07/07/20 22:00 83 29 106/62 (77) 90 07/07/20 21:25 25 Mechanical Ventilator 100 07/07/20 21:11 26 105/62 Mechanical Ventilator 100 07/07/20 21:10 27 Mechanical Ventilator 100 07/07/20 21:10 27 Mechanical Ventilator 100 07/07/20 21:00 85 27 105/62 (76) 86 07/07/20 20:02 91 156/91 07/07/20 20:00 93 07/07/20 20:00 100 07/07/20 20:00 Mechanical Ventilator Mechanical Ventilator Mechanical Ventilator Mechanical Ventilator Mechanical Ventilator 07/07/20 20:00 98.1 92 33 156/91 (112) 81 07/07/20 19:24 92 32 100 07/07/20 19:00 33 153/89 Mechanical Ventilator 100 07/07/20 19:00 98.1 92 29 152/88 (109) 83 07/07/20 18:00 93 32 144/77 (99) 84 07/07/20 18:00 32 144/77 Endotracheal Tube 100 07/07/20 17:00 92 30 136/78 (97) 86 07/07/20 17:00 30 136/78 Endotracheal Tube 100 07/07/20 16:00 Mechanical Ventilator Mechanical Ventilator 07/07/20 16:00 98.9 89 29 129/81 (97) 87 07/07/20 16:00 29 129/81 Endotracheal Tube 100 07/07/20 16:00 90 07/07/20 16:00 100 07/07/20 15:30 92 24 81/54 (63) 94 07/07/20 15:15 93 25 82/56 (65) 94 07/07/20 15:15 25 Endotracheal Tube 100 07/07/20 15:00 23 Endotracheal Tube 100 07/07/20 15:00 22 95/59 Endotracheal Tube 100 07/07/20 15:00 93 22 95/59 (71) 94 07/07/20 14:45 21 Endotracheal Tube 100 07/07/20 14:45 21 92/61 Endotracheal Tube 100 07/07/20 14:45 95 21 92/61 (71) 92 07/07/20 14:30 21 100 07/07/20 14:30 21 94/65 Endotracheal Tube 100 07/07/20 14:30 95 21 94/65 (75) 92 07/07/20 14:15 29 Endotracheal Tube 100 07/07/20 14:15 29 110/66 Endotracheal Tube 100 07/07/20 14:15 96 29 110/66 (81) 90 07/07/20 14:00 94 29 116/75 (89) 90 07/07/20 14:00 29 Endotracheal Tube 100 07/07/20 14:00 29 116/75 Endotracheal Tube 100 07/07/20 13:55 99 24 100 07/07/20 13:45 25 95/52 Endotracheal Tube 100 07/07/20 13:45 98 25 95/52 (66) 94 07/07/20 13:30 26 93/57 Endotracheal Tube 100 07/07/20 13:30 98 26 93/57 (69) 94 07/07/20 13:15 99 24 98/60 (73) 93 07/07/20 13:15 24 98/60 Endotracheal Tube 100 07/07/20 13:00 31 Endotracheal Tube 100 07/07/20 13:00 31 98/64 Endotracheal Tube 100 07/07/20 13:00 99 31 98/64 (75) 92 07/07/20 12:00 Mechanical Ventilator Mechanical Ventilator 07/07/20 12:00 101 07/07/20 12:00 27 Endotracheal Tube 100 07/07/20 12:00 27 105/64 Endotracheal Tube 100 07/07/20 12:00 97.6 101 27 105/64 (78) 89 07/07/20 12:00 100 07/07/20 11:00 24 Endotracheal Tube 100 07/07/20 11:00 24 99/68 Endotracheal Tube 100 07/07/20 11:00 103 24 99/68 (78) 90 07/07/20 10:00 105 29 150/77 (101) 86 07/07/20 10:00 29 Endotracheal Tube 100 07/07/20 10:00 29 150/77 Endotracheal Tube 100 07/07/20 09:00 104 21 132/69 (90) 89 07/07/20 09:00 21 Endotracheal Tube 100 07/07/20 09:00 21 132/69 Endotracheal Tube 100 07/07/20 08:49 105 122/67 07/07/20 08:00 Mechanical Ventilator Mechanical Ventilator 07/07/20 08:00 98.6 105 26 122/67 (85) 89 07/07/20 08:00 104 07/07/20 08:00 26 Endotracheal Tube 100 07/07/20 08:00 26 122/67 Endotracheal Tube 100 07/07/20 07:50 107 34 100 07/07/20 07:00 108 25 142/70 (94) 88 07/07/20 07:00 23 Mechanical Ventilator 100 07/07/20 07:00 23 142/70 Mechanical Ventilator 100 07/07/20 06:00 22 Mechanical Ventilator 100 07/07/20 06:00 25 145/65 Mechanical Ventilator 100 07/07/20 06:00 107 20 134/69 (90) 88 07/07/20 05:32 22 Mechanical Ventilator 100 07/07/20 05:00 106 24 128/73 (91) 88 07/07/20 05:00 100 07/07/20 05:00 22 Mechanical Ventilator 100 07/07/20 05:00 22 132/59 Mechanical Ventilator 100 07/07/20 04:00 100 07/07/20 04:00 107 07/07/20 04:00 22 Mechanical Ventilator 07/07/20 04:00 23 130/88 Mechanical Ventilator 100 07/07/20 04:00 98.0 102 27 117/75 (89) 93 07/07/20 04:00 Mechanical Ventilator Mechanical Ventilator 07/07/20 03:41 101 23 100 07/07/20 03:00 101 23 93/52 (66) 91 07/07/20 03:00 22 Mechanical Ventilator 100 07/07/20 03:00 23 118/64 Mechanical Ventilator 100 07/07/20 02:00 99 22 89/59 (69) 90 07/07/20 02:00 22 Mechanical Ventilator 100 07/07/20 02:00 22 110/80 Mechanical Ventilator 100 07/07/20 01:00 100 22 94/57 (69) 89 07/07/20 01:00 25 Mechanical Ventilator 100 07/07/20 01:00 22 110/60 Mechanical Ventilator 100 07/07/20 00:00 Mechanical Ventilator Mechanical Ventilator 07/07/20 00:00 22 Mechanical Ventilator 100 07/07/20 00:00 22 97/48 Mechanical Ventilator 100 07/07/20 00:00 97.8 100 22 97/58 (71) 92 07/07/20 00:00 100 07/06/20 23:39 102 26 100 07/06/20 23:00 103 23 107/56 (73) 89 07/06/20 23:00 22 Mechanical Ventilator 100 07/06/20 23:00 22 116/64 Mechanical Ventilator 100 07/06/20 22:00 106 21 127/65 (85) 85 07/06/20 22:00 27 Mechanical Ventilator 100 07/06/20 22:00 27 127/65 Mechanical Ventilator 100 07/06/20 21:10 27 144/80 Mechanical Ventilator 100 07/06/20 21:00 99.0 103 28 144/80 (101) 86 07/06/20 21:00 20 Mechanical Ventilator 100 07/06/20 21:00 27 110/64 Mechanical Ventilator 100 07/06/20 20:33 99 100/65 07/06/20 20:06 24 Mechanical Ventilator 100 07/06/20 20:00 99 07/06/20 20:00 97 22 105/58 (74) 91 07/06/20 20:00 18 Mechanical Ventilator 100 07/06/20 20:00 27 100/60 Mechanical Ventilator 100 07/06/20 20:00 100 07/06/20 20:00 Mechanical Ventilator Mechanical Ventilator 07/06/20 19:52 98 25 100 07/06/20 19:00 98 24 108/52 (70) 90 07/06/20 19:00 21 Mechanical Ventilator 100 07/06/20 19:00 23 94/54 Mechanical Ventilator 100 07/06/20 18:00 99 24 109/60 (76) 89 07/06/20 18:00 24 Mechanical Ventilator 100 07/06/20 18:00 24 109/60 Mechanical Ventilator 100 07/06/20 17:00 98 23 111/62 (78) 90 07/06/20 17:00 22 Mechanical Ventilator 100 07/06/20 17:00 22 106/58 Mechanical Ventilator 100 07/06/20 16:01 96 07/06/20 16:00 18 Mechanical Ventilator 100 07/06/20 16:00 24 94/53 Mechanical Ventilator 100 07/06/20 16:00 Mechanical Ventilator Mechanical Ventilator 07/06/20 16:00 97.8 97 25 92/54 (67) 87 07/06/20 16:00 100 07/06/20 15:00 23 Mechanical Ventilator 90 07/06/20 15:00 24 103/62 Mechanical Ventilator 100 07/06/20 15:00 99 24 103/62 (76) 87 07/06/20 14:00 100 24 109/62 (78) 87 07/06/20 14:00 25 Mechanical Ventilator 90 07/06/20 14:00 25 102/57 Mechanical Ventilator 100 07/06/20 13:24 101 25 100 07/06/20 13:00 106 23 108/60 (76) 87 07/06/20 13:00 23 Mechanical Ventilator 100 07/06/20 13:00 23 100/53 Mechanical Ventilator 100 07/06/20 12:14 110 07/06/20 12:00 Mechanical Ventilator Mechanical Ventilator 07/06/20 12:00 100 07/06/20 12:00 26 Mechanical Ventilator 100 07/06/20 12:00 26 125/65 Mechanical Ventilator 100 07/06/20 12:00 99.6 111 28 120/69 (86) 78 07/06/20 11:45 106 27 102/54 (70) 81 07/06/20 11:30 105 23 101/59 (73) 83 07/06/20 11:00 109 21 122/68 (86) 84 07/06/20 11:00 24 Mechanical Ventilator 90 07/06/20 11:00 24 119/61 Mechanical Ventilator 100 07/06/20 10:00 22 Mechanical Ventilator 90 07/06/20 10:00 22 143/70 Mechanical Ventilator 100 07/06/20 10:00 105 26 129/68 (88) 79 07/06/20 09:45 102 26 96/53 (67) 77 07/06/20 09:30 100 24 94/51 (65) 80 07/06/20 09:00 23 Mechanical Ventilator 90 07/06/20 09:00 23 107/60 Mechanical Ventilator 100 07/06/20 09:00 101 21 108/63 (78) 81 07/06/20 08:47 23 Mechanical Ventilator 100 07/06/20 08:47 101 123/61 07/06/20 08:42 26 Mechanical Ventilator 100 07/06/20 08:03 100 07/06/20 08:00 25 Mechanical Ventilator 100 07/06/20 08:00 25 111/59 Mechanical Ventilator 100 07/06/20 08:00 Mechanical Ventilator Mechanical Ventilator 07/06/20 08:00 98.2 100 23 101/56 (71) 87 07/06/20 08:00 100 07/06/20 07:30 98 24 91/50 (64) 84 07/06/20 07:16 100 24 100 Intake and Output 07/07/20 07/08/20 19:00 07:00 Intake Total 1635.75 ml 1544.25 ml Output Total 400 ml 380 ml Balance 1235.75 ml 1164.25 ml Intake Free Water 300 ml 200 ml IV Total 675.75 ml 679.25 ml Tube Feeding 660 ml 605 ml Other 60 ml Output Urine Total 400 ml 380 ml Labs Test 07/05/20 20:14 07/06/20 05:45 07/06/20 08:29 07/07/20 03:30 Arterial Blood pH 7.391 (7.350-7.450) 7.395 (7.350-7.450) Arterial Blood Partial Pressure CO2 66.3 mmHg (35.0-45.0) 70.1 mmHg (35.0-45.0) Arterial Blood Partial Pressure O2 37.5 mmHg (75.0-100.0) 44.4 mmHg (75.0-100.0) Arterial Blood HCO3 39.3 mmol/L (22.0-26.0) 42.0 mmol/L (22.0-26.0) Arterial Blood Oxygen Saturation 67.7 % (95-100) 78.5 % (95-100) Arterial Blood Base Excess 12.1 (-2-2) 14.6 (-2-2) Amrit Test Positive Positive White Blood Count 8.4 K/UL (4.8-10.8) 7.7 K/UL (4.8-10.8) Red Blood Count 3.13 M/UL (4.20-5.40) 3.01 M/UL (4.20-5.40) Hemoglobin 9.6 G/DL (12.0-16.0) 9.1 G/DL (12.0-16.0) Hematocrit 30.6 % (37.0-47.0) 29.6 % (37.0-47.0) Mean Corpuscular Volume 98 FL (80-99) 98 FL (80-99) Mean Corpuscular Hemoglobin 30.6 PG (27.0-31.0) 30.1 PG (27.0-31.0) Mean Corpuscular Hemoglobin Concent 31.3 G/DL (32.0-36.0) 30.6 G/DL (32.0-36.0) Red Cell Distribution Width 16.0 % (11.6-14.8) 16.0 % (11.6-14.8) Platelet Count 105 K/UL (150-450) 116 K/UL (150-450) Mean Platelet Volume 8.9 FL (6.5-10.1) 10.4 FL (6.5-10.1) Neutrophils (%) (Auto) 82.6 % (45.0-75.0) 82.2 % (45.0-75.0) Lymphocytes (%) (Auto) 11.3 % (20.0-45.0) 7.2 % (20.0-45.0) Monocytes (%) (Auto) 2.1 % (1.0-10.0) 3.4 % (1.0-10.0) Eosinophils (%) (Auto) 3.5 % (0.0-3.0) 5.2 % (0.0-3.0) Basophils (%) (Auto) 0.5 % (0.0-2.0) 2.0 % (0.0-2.0) Sodium Level 141 MMOL/L (136-145) 141 MMOL/L (136-145) Potassium Level 3.8 MMOL/L (3.5-5.1) 4.3 MMOL/L (3.5-5.1) Chloride Level 104 MMOL/L (98-107) 105 MMOL/L (98-107) Carbon Dioxide Level 38 MMOL/L (21-32) 38 MMOL/L (21-32) Blood Urea Nitrogen 17 mg/dL (7-18) 15 mg/dL (7-18) Creatinine 0.6 MG/DL (0.55-1.30) 0.4 MG/DL (0.55-1.30) Estimat Glomerular Filtration Rate > 60 mL/min (>60) > 60 mL/min (>60) Glucose Level 131 MG/DL (74-106) 138 MG/DL (74-106) Uric Acid 1.7 MG/DL (2.6-7.2) Calcium Level 7.6 MG/DL (8.5-10.1) 7.9 MG/DL (8.5-10.1) Phosphorus Level 2.7 MG/DL (2.5-4.9) Magnesium Level 2.1 MG/DL (1.8-2.4) Total Bilirubin 0.5 MG/DL (0.2-1.0) Gamma Glutamyl Transpeptidase 123 U/L (5-85) Aspartate Amino Transf (AST/SGOT) 57 U/L (15-37) Alanine Aminotransferase (ALT/SGPT) 52 U/L (12-78) Alkaline Phosphatase 150 U/L (46-116) C-Reactive Protein, Quantitative 13.5 mg/dL (0.00-0.90) Pro-B-Type Natriuretic Peptide 1297 pg/mL (0-125) Total Protein 5.5 G/DL (6.4-8.2) Albumin 1.0 G/DL (3.4-5.0) Globulin 4.5 g/dL Albumin/Globulin Ratio 0.2 (1.0-2.7) Anion Gap -2 mmol/L (5-15) Test 07/08/20 03:50 White Blood Count 7.3 K/UL (4.8-10.8) Red Blood Count 2.90 M/UL (4.20-5.40) Hemoglobin 8.8 G/DL (12.0-16.0) Hematocrit 28.1 % (37.0-47.0) Mean Corpuscular Volume 97 FL (80-99) Mean Corpuscular Hemoglobin 30.2 PG (27.0-31.0) Mean Corpuscular Hemoglobin Concent 31.2 G/DL (32.0-36.0) Red Cell Distribution Width 16.5 % (11.6-14.8) Platelet Count 132 K/UL (150-450) Mean Platelet Volume 10.7 FL (6.5-10.1) Neutrophils (%) (Auto) 83.7 % (45.0-75.0) Lymphocytes (%) (Auto) 8.2 % (20.0-45.0) Monocytes (%) (Auto) 3.4 % (1.0-10.0) Eosinophils (%) (Auto) 3.9 % (0.0-3.0) Basophils (%) (Auto) 0.8 % (0.0-2.0) Sodium Level 140 MMOL/L (136-145) Potassium Level 3.9 MMOL/L (3.5-5.1) Chloride Level 103 MMOL/L (98-107) Carbon Dioxide Level 39 MMOL/L (21-32) Anion Gap -4 mmol/L (5-15) Blood Urea Nitrogen 18 mg/dL (7-18) Creatinine 0.4 MG/DL (0.55-1.30) Estimat Glomerular Filtration Rate > 60 mL/min (>60) Glucose Level 127 MG/DL (74-106) Calcium Level 8.0 MG/DL (8.5-10.1) Height (Feet): 5 Height (Inches): 2.00 Weight (Pounds): 138 Objective Physical Exam Vitals: reviewed, abnormal - Interpreted as low by me General: GCS 15 - Sometimes slightly confused, non-toxic, mild distress Head: normocephalic, moist mucus membranes Neck: supple Respiratory: no retraction, no accessory muscle use, respiratory distress - Minimal with tachypnea, crackles Cardiovascular: regular rate, rhythm, no edema Gastrointestinal: normal inspection, non tender, soft Genitourinary: no CVA tenderness Musculoskeletal: back normal Neurologic: alert, oriented x3, grossly normal Psychiatric: mood/affect normal - sometimes confused Skin: no rash, warm/dry Jj Swann MD Jul 08, 2020 07:07
--- NOTE | 2020-07-08 07:20 | NUR ---
NURSE HAND-OFF REPORT: Latest Vital Signs: Temperature 98.1 , Pulse 97 , B/P 120 /65 , Respiratory Rate 30 , O2 SAT 87 , Mechanical Ventilator, O2 Flow Rate . Vital Sign Comment: EKG Rhythm: Sinus Rhythm Rhythm change?: N Notified?: N Response: No New Orders Received Latest Carney Fall Score: 50 Fall Risk: High Risk Safety Measures: Call light Within Reach, Bed Alarm Zone 2, Side Rails Side Rails x3, Bed position Low and Locked. Fall Precautions: Yellow Socks Door Sign Patient Fall Education Report given to Norberto AUSTIN.
--- NOTE | 2020-07-08 07:20 | NUR ---
NURSE NOTES: Received report from NORMAN Mistry. Patient is sedated. ETT 7.5/22cm at lip line with vent setting ac 20, vt 400, peep 12 and fio2 100%. O2 sat 88% on the monitor. OGT intact and running with glucerna 1.2 @ 55ml/hr. Martin intact and draining with richelle color urine. Right upper arm PICC intact and running with fentanyl 60mcg/hr, versed 5mg/hr and NS @ 50ml/hr. Left, right chest tube intact and connected to pleural vac. Gentle bubble noted in water chamber. No air leakage noted. Kept dry, clean and comfortable. Will continue plan of care.
[2020-07-08] MEDS: Vitamin D 1000 units Tab GT SCH (08:40)
[2020-07-08] MEDS: Pantoprazole Inj IVP SCH ×2 (08:41→21:30)
[2020-07-08] MEDS: Carvedilol 6.25mg Tab ORAL SCH ×2 (08:42→21:30)
[2020-07-08] MEDS: Cefepime HCl 1 GM in D5W 55 ML IVPB SCH (08:42)
[2020-07-08] MEDS: Versed 50mg/NS 100ml 100 ML IV PRN ×2 (09:03→19:24)
--- NOTE | 2020-07-08 10:24 | NUR ---
RD ASSESSMENT & RECOMMENDATIONS SEE CARE ACTIVITY FOR COMPLETE ASSESSMENT DAILY ESTIMATED NEEDS: Needs based on Critical care 62.7kg 22-28 kcals/kg 4717-0267 total kcals 1.2-2 g protein/kg 75-125 g total protein 25-30 mL/kg 8625-9197 total fluid mLs NUTRITION DIAGNOSIS: Altered nutrition related lab values r/t clinical status as evidenced by elev BG checks (POC 226 230 128-> now improved), A1C 7.1, elevated Na(153-> 146), elev BUN(34-> 23), elev Mg(3.1). CURRENT TF:Now Glucerna 1.2 goal of 55ml/hr ENTERAL NUTRITION RECOMMENDATIONS: Glucerna 1.2 goal of 55ml/hr x24 hrs to provide 1320ml, 1584 kcal, 79g pro, 1063ml free H2O - Maintain Glucerna 1.2 @goal as tolerated. - Flush per MD/ HOB over 30 degrees - Trophic feeds if on pressor support to maintain gut integrity. ADDITIONAL RECOMMENDATIONS: 1) Now Intubated-->>Rec OGT/ NGT feeds 2) Maintain D5 while NPO 3) Calibrated bed scale wts 4) Bowel regimen, last bm noted 07/01. 5) Off decadron, BG improved 6) Feed w/ hemodynamic stability- no pressors at this time
--- NOTE | 2020-07-08 10:28 | Infectious Diseases Prog Note ---
Assessment/Plan Assessment/Plan A; Fever Sepsis COVID19 pneumonia Hypoxic respiratory failure Acute kidney injury, resolving Hyperglycemia, DM type 2 Bilateral pneumothorax Leukocytosis resolved Anemia P; Finished Remdesivir & Dexamethasone course Continue Cefepime until expiration time today Poor prognosis, DNR status Subjective ROS Limited/Unobtainable: Yes Allergies: Coded Allergies: No Known Allergies (Unverified , 06/17/20) Objective Last 24 Hour Vital Signs Date Time Temp Pulse Resp B/P (MAP) Pulse Ox O2 Delivery O2 Flow Rate FiO2 07/08/20 10:00 101 34 98/55 (69) 86 07/08/20 09:30 99 30 108/56 (73) 86 07/08/20 09:03 22 Mechanical Ventilator 100 07/08/20 09:00 102 31 106/62 (77) 87 07/08/20 08:42 101 121/54 07/08/20 08:30 101 32 121/67 (85) 87 07/08/20 08:00 100.2 99 31 126/65 (85) 90 07/08/20 07:30 97 30 114/63 (80) 92 07/08/20 07:00 98 32 121/62 (81) 94 07/08/20 06:25 30 Mechanical Ventilator 100 07/08/20 06:11 30 120/65 Mechanical Ventilator 100 07/08/20 06:00 97 34 127/66 (86) 87 07/08/20 05:25 24 Mechanical Ventilator 100 07/08/20 05:11 35 147/81 Mechanical Ventilator 100 07/08/20 05:00 97 34 149/81 (103) 87 07/08/20 04:25 32 Mechanical Ventilator 100 07/08/20 04:11 32 117/62 Mechanical Ventilator 100 07/08/20 04:00 98.1 93 32 116/60 (78) 93 07/08/20 04:00 100 07/08/20 04:00 87 07/08/20 04:00 Mechanical Ventilator Mechanical Ventilator Mechanical Ventilator Mechanical Ventilator Mechanical Ventilator 07/08/20 03:25 29 Mechanical Ventilator 100 07/08/20 03:11 29 97/55 Mechanical Ventilator 100 07/08/20 03:00 89 22 121/69 (86) 90 07/08/20 02:25 28 Mechanical Ventilator 100 07/08/20 02:23 85 26 100 07/08/20 02:11 28 99/66 Mechanical Ventilator 100 07/08/20 02:00 87 27 99/57 (71) 93 07/08/20 01:25 27 Mechanical Ventilator 100 07/08/20 01:11 27 101/57 Mechanical Ventilator 100 07/08/20 01:00 83 26 96/60 (72) 93 07/08/20 00:25 26 Mechanical Ventilator 100 07/08/20 00:11 26 100/58 Mechanical Ventilator 100 07/08/20 00:00 Mechanical Ventilator Mechanical Ventilator Mechanical Ventilator Mechanical Ventilator Mechanical Ventilator 07/08/20 00:00 100 07/08/20 00:00 81 07/08/20 00:00 98.3 82 33 97/58 (71) 91 07/07/20 23:25 25 Mechanical Ventilator 100 07/07/20 23:17 82 24 100 07/07/20 23:11 25 101/62 Mechanical Ventilator 100 07/07/20 23:00 82 28 100/65 (77) 92 07/07/20 22:25 27 Mechanical Ventilator 100 07/07/20 22:11 27 104/62 Mechanical Ventilator 100 07/07/20 22:00 83 29 106/62 (77) 90 07/07/20 21:25 25 Mechanical Ventilator 100 07/07/20 21:11 26 105/62 Mechanical Ventilator 100 07/07/20 21:10 27 Mechanical Ventilator 100 07/07/20 21:10 27 Mechanical Ventilator 100 07/07/20 21:00 85 27 105/62 (76) 86 07/07/20 20:02 91 156/91 07/07/20 20:00 93 07/07/20 20:00 100 07/07/20 20:00 Mechanical Ventilator Mechanical Ventilator Mechanical Ventilator Mechanical Ventilator Mechanical Ventilator 07/07/20 20:00 98.1 92 33 156/91 (112) 81 07/07/20 19:24 92 32 100 07/07/20 19:00 33 153/89 Mechanical Ventilator 100 07/07/20 19:00 98.1 92 29 152/88 (109) 83 07/07/20 18:00 93 32 144/77 (99) 84 07/07/20 18:00 32 144/77 Endotracheal Tube 100 07/07/20 17:00 92 30 136/78 (97) 86 07/07/20 17:00 30 136/78 Endotracheal Tube 100 07/07/20 16:00 Mechanical Ventilator Mechanical Ventilator 07/07/20 16:00 98.9 89 29 129/81 (97) 87 07/07/20 16:00 29 129/81 Endotracheal Tube 100 07/07/20 16:00 90 07/07/20 16:00 100 07/07/20 15:30 92 24 81/54 (63) 94 07/07/20 15:15 93 25 82/56 (65) 94 07/07/20 15:15 25 Endotracheal Tube 100 07/07/20 15:00 23 Endotracheal Tube 100 07/07/20 15:00 22 95/59 Endotracheal Tube 100 07/07/20 15:00 93 22 95/59 (71) 94 07/07/20 14:45 21 Endotracheal Tube 100 07/07/20 14:45 21 92/61 Endotracheal Tube 100 07/07/20 14:45 95 21 92/61 (71) 92 07/07/20 14:30 21 100 07/07/20 14:30 21 94/65 Endotracheal Tube 100 07/07/20 14:30 95 21 94/65 (75) 92 07/07/20 14:15 29 Endotracheal Tube 100 07/07/20 14:15 29 110/66 Endotracheal Tube 100 07/07/20 14:15 96 29 110/66 (81) 90 07/07/20 14:00 94 29 116/75 (89) 90 07/07/20 14:00 29 Endotracheal Tube 100 07/07/20 14:00 29 116/75 Endotracheal Tube 100 07/07/20 13:55 99 24 100 07/07/20 13:45 25 95/52 Endotracheal Tube 100 07/07/20 13:45 98 25 95/52 (66) 94 07/07/20 13:30 26 93/57 Endotracheal Tube 100 07/07/20 13:30 98 26 93/57 (69) 94 07/07/20 13:15 99 24 98/60 (73) 93 07/07/20 13:15 24 98/60 Endotracheal Tube 100 07/07/20 13:00 31 Endotracheal Tube 100 07/07/20 13:00 31 98/64 Endotracheal Tube 100 07/07/20 13:00 99 31 98/64 (75) 92 07/07/20 12:00 Mechanical Ventilator Mechanical Ventilator 07/07/20 12:00 101 07/07/20 12:00 27 Endotracheal Tube 100 07/07/20 12:00 27 105/64 Endotracheal Tube 100 07/07/20 12:00 97.6 101 27 105/64 (78) 89 07/07/20 12:00 100 07/07/20 11:00 24 Endotracheal Tube 100 07/07/20 11:00 24 99/68 Endotracheal Tube 100 07/07/20 11:00 103 24 99/68 (78) 90 Height (Feet): 5 Height (Inches): 2.00 Weight (Pounds): 138 HEENT: other - orally intubated, HLE2=769%, Bilateral chest tubes Cardiovascular: tachycardia, other - PICC line Abdomen: soft, non tender Extremities: other - generalized edema Neurologic/Psychiatric: other - sedated Laboratory Tests Test 07/08/20 03:50 White Blood Count 7.3 K/UL (4.8-10.8) Red Blood Count 2.90 M/UL (4.20-5.40) L Hemoglobin 8.8 G/DL (12.0-16.0) L Hematocrit 28.1 % (37.0-47.0) L Mean Corpuscular Volume 97 FL (80-99) Mean Corpuscular Hemoglobin 30.2 PG (27.0-31.0) Mean Corpuscular Hemoglobin Concent 31.2 G/DL (32.0-36.0) L Red Cell Distribution Width 16.5 % (11.6-14.8) H Platelet Count 132 K/UL (150-450) L Mean Platelet Volume 10.7 FL (6.5-10.1) H Neutrophils (%) (Auto) 83.7 % (45.0-75.0) H Lymphocytes (%) (Auto) 8.2 % (20.0-45.0) L Monocytes (%) (Auto) 3.4 % (1.0-10.0) Eosinophils (%) (Auto) 3.9 % (0.0-3.0) H Basophils (%) (Auto) 0.8 % (0.0-2.0) Sodium Level 140 MMOL/L (136-145) Potassium Level 3.9 MMOL/L (3.5-5.1) Chloride Level 103 MMOL/L (98-107) Carbon Dioxide Level 39 MMOL/L (21-32) H Anion Gap -4 mmol/L (5-15) L Blood Urea Nitrogen 18 mg/dL (7-18) Creatinine 0.4 MG/DL (0.55-1.30) L Estimat Glomerular Filtration Rate > 60 mL/min (>60) Glucose Level 127 MG/DL (74-106) H Calcium Level 8.0 MG/DL (8.5-10.1) L Current Medications Medications (Trade) Dose Ordered Sig/Maya Route PRN Reason Start Time Stop Time Status Last Admin Dose Admin Acetaminophen (Tylenol) 500 mg Q4H PRN ORAL Mild Pain (Pain Scale 1-3) 06/18/20 00:15 07/18/20 00:14 06/24/20 17:51 Acetaminophen (Tylenol) 500 mg Q4H PRN ORAL Temp >100.5 06/18/20 00:15 07/18/20 00:14 06/29/20 20:01 Carvedilol (Coreg) 6.25 mg EVERY 12 HOURS ORAL 06/22/20 21:00 07/22/20 20:59 07/08/20 08:42 Cefepime HCl 1 gm/ Dextrose 55 ml @ 110 mls/hr DAILY IVPB 07/04/20 09:00 07/08/20 12:00 07/08/20 08:42 Chlorhexidine Gluconate (Sissy-Hex 2%) 1 applic DAILY@2000 TOPIC 06/28/20 20:00 09/26/20 19:59 07/07/20 20:02 Dextrose (Dextrose 50%) 25 ml Q30M PRN IV Hypoglycemia 06/18/20 14:15 09/16/20 14:14 Dextrose (Dextrose 50%) 50 ml Q30M PRN IV Hypoglycemia 06/18/20 14:15 09/16/20 14:14 Docusate Sodium (Colace) 100 mg EVERY 8 HOURS NG 07/02/20 14:00 07/28/20 12:59 07/08/20 05:13 Fentanyl Citrate 250 ml @ 1 mls/hr Q24H IV 07/07/20 19:15 07/09/20 19:14 07/07/20 21:11 Furosemide (Lasix) 40 mg DAILY IV 06/28/20 17:45 07/28/20 16:59 07/08/20 08:41 Haloperidol Lactate (Haldol) 10 mg Q6H PRN IM Agitation 06/23/20 11:30 08/07/20 11:29 06/23/20 11:34 Insulin Aspart (NovoLOG) while NPO Q6HR SUBQ 06/18/20 18:00 09/16/20 17:59 07/08/20 05:35 Midazolam HCl 100 ml @ 0 mls/hr Q24H PRN IV SEDATION 07/08/20 07:45 07/10/20 07:44 07/08/20 09:03 Pantoprazole (Protonix) 40 mg EVERY 12 HOURS IVP 06/18/20 21:00 07/18/20 20:59 07/08/20 08:41 Sodium Chloride 1,000 ml @ 50 mls/hr Q20H IV 06/26/20 08:00 07/26/20 07:59 07/07/20 23:26 Vitamin D (Vitamin D) 2,000 unit DAILY GT 06/29/20 10:30 07/29/20 10:29 07/08/20 08:40 Raji Turpin MD Jul 08, 2020 10:28
--- NOTE | 2020-07-08 10:32 | Pulmonology Progress Note ---
Subjective ROS Limited/Unobtainable: Yes Interval Events: Remains intubated; bilateral chest tubes in place Constitutional: Denies: fever HEENT: Repors: no symptoms Respiratory: Reports: shortness of breath Cardiovascular: Reports: no symptoms Gastrointestinal/Abdominal: Reports: no symptoms Allergies: Coded Allergies: No Known Allergies (Unverified , 06/17/20) All Systems: reviewed and negative except above Objective Last 24 Hour Vital Signs Date Time Temp Pulse Resp B/P (MAP) Pulse Ox O2 Delivery O2 Flow Rate FiO2 07/08/20 10:00 101 34 98/55 (69) 86 07/08/20 09:30 99 30 108/56 (73) 86 07/08/20 09:03 22 Mechanical Ventilator 100 07/08/20 09:00 102 31 106/62 (77) 87 07/08/20 08:42 101 121/54 07/08/20 08:30 101 32 121/67 (85) 87 07/08/20 08:00 100.2 99 31 126/65 (85) 90 07/08/20 07:30 97 30 114/63 (80) 92 07/08/20 07:00 98 32 121/62 (81) 94 07/08/20 06:25 30 Mechanical Ventilator 100 07/08/20 06:11 30 120/65 Mechanical Ventilator 100 07/08/20 06:00 97 34 127/66 (86) 87 07/08/20 05:25 24 Mechanical Ventilator 100 07/08/20 05:11 35 147/81 Mechanical Ventilator 100 07/08/20 05:00 97 34 149/81 (103) 87 07/08/20 04:25 32 Mechanical Ventilator 100 07/08/20 04:11 32 117/62 Mechanical Ventilator 100 07/08/20 04:00 98.1 93 32 116/60 (78) 93 07/08/20 04:00 100 07/08/20 04:00 87 07/08/20 04:00 Mechanical Ventilator Mechanical Ventilator Mechanical Ventilator Mechanical Ventilator Mechanical Ventilator 07/08/20 03:25 29 Mechanical Ventilator 100 07/08/20 03:11 29 97/55 Mechanical Ventilator 100 07/08/20 03:00 89 22 121/69 (86) 90 07/08/20 02:25 28 Mechanical Ventilator 100 07/08/20 02:23 85 26 100 07/08/20 02:11 28 99/66 Mechanical Ventilator 100 07/08/20 02:00 87 27 99/57 (71) 93 07/08/20 01:25 27 Mechanical Ventilator 100 07/08/20 01:11 27 101/57 Mechanical Ventilator 100 07/08/20 01:00 83 26 96/60 (72) 93 07/08/20 00:25 26 Mechanical Ventilator 100 07/08/20 00:11 26 100/58 Mechanical Ventilator 100 07/08/20 00:00 Mechanical Ventilator Mechanical Ventilator Mechanical Ventilator Mechanical Ventilator Mechanical Ventilator 07/08/20 00:00 100 07/08/20 00:00 81 07/08/20 00:00 98.3 82 33 97/58 (71) 91 07/07/20 23:25 25 Mechanical Ventilator 100 07/07/20 23:17 82 24 100 07/07/20 23:11 25 101/62 Mechanical Ventilator 100 07/07/20 23:00 82 28 100/65 (77) 92 07/07/20 22:25 27 Mechanical Ventilator 100 07/07/20 22:11 27 104/62 Mechanical Ventilator 100 07/07/20 22:00 83 29 106/62 (77) 90 07/07/20 21:25 25 Mechanical Ventilator 100 07/07/20 21:11 26 105/62 Mechanical Ventilator 100 07/07/20 21:10 27 Mechanical Ventilator 100 07/07/20 21:10 27 Mechanical Ventilator 100 07/07/20 21:00 85 27 105/62 (76) 86 07/07/20 20:02 91 156/91 07/07/20 20:00 93 07/07/20 20:00 100 07/07/20 20:00 Mechanical Ventilator Mechanical Ventilator Mechanical Ventilator Mechanical Ventilator Mechanical Ventilator 07/07/20 20:00 98.1 92 33 156/91 (112) 81 07/07/20 19:24 92 32 100 07/07/20 19:00 33 153/89 Mechanical Ventilator 100 07/07/20 19:00 98.1 92 29 152/88 (109) 83 07/07/20 18:00 93 32 144/77 (99) 84 07/07/20 18:00 32 144/77 Endotracheal Tube 100 07/07/20 17:00 92 30 136/78 (97) 86 07/07/20 17:00 30 136/78 Endotracheal Tube 100 07/07/20 16:00 Mechanical Ventilator Mechanical Ventilator 07/07/20 16:00 98.9 89 29 129/81 (97) 87 07/07/20 16:00 29 129/81 Endotracheal Tube 100 07/07/20 16:00 90 07/07/20 16:00 100 07/07/20 15:30 92 24 81/54 (63) 94 07/07/20 15:15 93 25 82/56 (65) 94 07/07/20 15:15 25 Endotracheal Tube 100 07/07/20 15:00 23 Endotracheal Tube 100 07/07/20 15:00 22 95/59 Endotracheal Tube 100 07/07/20 15:00 93 22 95/59 (71) 94 07/07/20 14:45 21 Endotracheal Tube 100 07/07/20 14:45 21 92/61 Endotracheal Tube 100 07/07/20 14:45 95 21 92/61 (71) 92 07/07/20 14:30 21 100 07/07/20 14:30 21 94/65 Endotracheal Tube 100 07/07/20 14:30 95 21 94/65 (75) 92 07/07/20 14:15 29 Endotracheal Tube 100 07/07/20 14:15 29 110/66 Endotracheal Tube 100 07/07/20 14:15 96 29 110/66 (81) 90 07/07/20 14:00 94 29 116/75 (89) 90 07/07/20 14:00 29 Endotracheal Tube 100 07/07/20 14:00 29 116/75 Endotracheal Tube 100 07/07/20 13:55 99 24 100 07/07/20 13:45 25 95/52 Endotracheal Tube 100 07/07/20 13:45 98 25 95/52 (66) 94 07/07/20 13:30 26 93/57 Endotracheal Tube 100 07/07/20 13:30 98 26 93/57 (69) 94 07/07/20 13:15 99 24 98/60 (73) 93 07/07/20 13:15 24 98/60 Endotracheal Tube 100 07/07/20 13:00 31 Endotracheal Tube 100 07/07/20 13:00 31 98/64 Endotracheal Tube 100 07/07/20 13:00 99 31 98/64 (75) 92 07/07/20 12:00 Mechanical Ventilator Mechanical Ventilator 07/07/20 12:00 101 07/07/20 12:00 27 Endotracheal Tube 100 07/07/20 12:00 27 105/64 Endotracheal Tube 100 07/07/20 12:00 97.6 101 27 105/64 (78) 89 07/07/20 12:00 100 07/07/20 11:00 24 Endotracheal Tube 100 07/07/20 11:00 24 99/68 Endotracheal Tube 100 07/07/20 11:00 103 24 99/68 (78) 90 Intake and Output 07/07/20 07/08/20 19:00 07:00 Intake Total 1635.75 ml 1544.25 ml Output Total 400 ml 380 ml Balance 1235.75 ml 1164.25 ml Intake Free Water 300 ml 200 ml IV Total 675.75 ml 679.25 ml Tube Feeding 660 ml 605 ml Other 60 ml Output Urine Total 400 ml 380 ml General Appearance: no acute distress HEENT: atraumatic Respiratory: crackles/rales Cardiovascular: normal rate Abdomen: soft, non tender Laboratory Tests 07/08/20 03:50: White Blood Count 7.3, Red Blood Count 2.90L, Hemoglobin 8.8L, Hematocrit 28.1L, Mean Corpuscular Volume 97, Mean Corpuscular Hemoglobin 30.2, Mean Corpuscular Hemoglobin Concent 31.2L, Red Cell Distribution Width 16.5H, Platelet Count 132L , Mean Platelet Volume 10.7H, Neutrophils (%) (Auto) 83.7H, Lymphocytes (%) (Auto) 8.2L, Monocytes (%) (Auto) 3.4, Eosinophils (%) (Auto) 3.9H, Basophils (%) (Auto) 0.8, Sodium Level 140, Potassium Level 3.9, Chloride Level 103, Carbon Dioxide Level 39H, Anion Gap -4L, Blood Urea Nitrogen 18, Creatinine 0.4L , Estimat Glomerular Filtration Rate > 60, Glucose Level 127H, Calcium Level 8.0L Current Medications Medications (Trade) Dose Ordered Sig/Maya Route PRN Reason Start Time Stop Time Status Last Admin Dose Admin Acetaminophen (Tylenol) 500 mg Q4H PRN ORAL Mild Pain (Pain Scale 1-3) 06/18/20 00:15 07/18/20 00:14 06/24/20 17:51 Acetaminophen (Tylenol) 500 mg Q4H PRN ORAL Temp >100.5 06/18/20 00:15 07/18/20 00:14 06/29/20 20:01 Carvedilol (Coreg) 6.25 mg EVERY 12 HOURS ORAL 06/22/20 21:00 07/22/20 20:59 07/08/20 08:42 Cefepime HCl 1 gm/ Dextrose 55 ml @ 110 mls/hr DAILY IVPB 07/04/20 09:00 07/08/20 12:00 07/08/20 08:42 Chlorhexidine Gluconate (Sissy-Hex 2%) 1 applic DAILY@2000 TOPIC 06/28/20 20:00 09/26/20 19:59 07/07/20 20:02 Dextrose (Dextrose 50%) 25 ml Q30M PRN IV Hypoglycemia 06/18/20 14:15 09/16/20 14:14 Dextrose (Dextrose 50%) 50 ml Q30M PRN IV Hypoglycemia 06/18/20 14:15 09/16/20 14:14 Docusate Sodium (Colace) 100 mg EVERY 8 HOURS NG 07/02/20 14:00 07/28/20 12:59 07/08/20 05:13 Fentanyl Citrate 250 ml @ 1 mls/hr Q24H IV 07/07/20 19:15 07/09/20 19:14 07/07/20 21:11 Furosemide (Lasix) 40 mg DAILY IV 06/28/20 17:45 07/28/20 16:59 07/08/20 08:41 Haloperidol Lactate (Haldol) 10 mg Q6H PRN IM Agitation 06/23/20 11:30 08/07/20 11:29 06/23/20 11:34 Insulin Aspart (NovoLOG) while NPO Q6HR SUBQ 06/18/20 18:00 09/16/20 17:59 07/08/20 05:35 Midazolam HCl 100 ml @ 0 mls/hr Q24H PRN IV SEDATION 07/08/20 07:45 07/10/20 07:44 07/08/20 09:03 Pantoprazole (Protonix) 40 mg EVERY 12 HOURS IVP 06/18/20 21:00 07/18/20 20:59 07/08/20 08:41 Sodium Chloride 1,000 ml @ 50 mls/hr Q20H IV 06/26/20 08:00 07/26/20 07:59 07/07/20 23:26 Vitamin D (Vitamin D) 2,000 unit DAILY GT 06/29/20 10:30 07/29/20 10:29 07/08/20 08:40 Assessment/Plan Assessment/Plan 1. COVID-19 pneumonia -Intubated, on 100% FiO2. PEEP 5-10. -SaO2 90% -On Decadron, s/p remdesivir 2. Leukocytosis -Resolved 3. Elevated D-dimer -On Lovenox 40 subcu QD for DVT prophylaxis 4. Renal insufficiency -Improved 5. Anemia of chronic disease -Hematology oncology following 6. Sepsis -Status post antibiotics, fluid resuscitation 7. Pneumothorax 06/22/20 - b/l subcutaneous emphysema, pneumomediastinum, probable small left pneumothorax & ? trace right pneumothorax. -[place] in place - placed CT by surgery (bilateral) - Will attempt wean when FiO2 decreases - CXR shows R PTX; will advise CT surgery to adjust R CT Discussed with son Now DNAR SaO2 87% on 100% FiO2 and PEEP 12 Grave prognosis Family not ready for withdrawl of care Discussed with son (jim) in great detail Charlie Sewell MD Jul 08, 2020 10:32
--- NOTE | 2020-07-08 10:58 | Cardiac Electrophysiology PN ---
Assessment/Plan Assessment/Plan 1. Respiratory failure due to COVID pneumonia. Intubated on 100% Fio2. PEEP 12 Echo showed Nl EF 2. Bilateral pneumothoraces. S/P bilateral chest tube placement. Right chest tube repositioned 07/04/20 3. Troponin elevation. Levels are low and flat could be demand ischemia vs Renal failure EKG shows sinus tachycardia at 110 beats per minute. 4. Hypernatremia with sodium of 155. Resolved 5. Hypertension on Coreg 6.25 mg b.i.d. and Lasix 6. DNR DW RN Subjective Subjective Intubated in ICU on Fentanyl and Versed drip. Chest tubes have minimal drainage On 100% Fio2, PEEP 8 . Off pressors DNR . No significant change Objective Last 24 Hour Vital Signs Date Time Temp Pulse Resp B/P (MAP) Pulse Ox O2 Delivery O2 Flow Rate FiO2 07/08/20 10:00 101 34 98/55 (69) 86 07/08/20 09:30 99 30 108/56 (73) 86 07/08/20 09:03 22 Mechanical Ventilator 100 07/08/20 09:00 102 31 106/62 (77) 87 07/08/20 08:42 101 121/54 07/08/20 08:30 101 32 121/67 (85) 87 07/08/20 08:00 Mechanical Ventilator Mechanical Ventilator Mechanical Ventilator Mechanical Ventilator Mechanical Ventilator 07/08/20 08:00 100 07/08/20 08:00 100.2 99 31 126/65 (85) 90 07/08/20 07:30 97 30 114/63 (80) 92 07/08/20 07:00 98 32 121/62 (81) 94 07/08/20 06:25 30 Mechanical Ventilator 100 07/08/20 06:11 30 120/65 Mechanical Ventilator 100 07/08/20 06:00 97 34 127/66 (86) 87 07/08/20 05:25 24 Mechanical Ventilator 100 07/08/20 05:11 35 147/81 Mechanical Ventilator 100 07/08/20 05:00 97 34 149/81 (103) 87 07/08/20 04:25 32 Mechanical Ventilator 100 07/08/20 04:11 32 117/62 Mechanical Ventilator 100 07/08/20 04:00 98.1 93 32 116/60 (78) 93 07/08/20 04:00 100 07/08/20 04:00 87 2/17/21 04:00 Mechanical Ventilator Mechanical Ventilator Mechanical Ventilator Mechanical Ventilator Mechanical Ventilator 07/08/20 03:25 29 Mechanical Ventilator 100 07/08/20 03:11 29 97/55 Mechanical Ventilator 100 07/08/20 03:00 89 22 121/69 (86) 90 07/08/20 02:25 28 Mechanical Ventilator 100 07/08/20 02:23 85 26 100 07/08/20 02:11 28 99/66 Mechanical Ventilator 100 07/08/20 02:00 87 27 99/57 (71) 93 07/08/20 01:25 27 Mechanical Ventilator 100 07/08/20 01:11 27 101/57 Mechanical Ventilator 100 07/08/20 01:00 83 26 96/60 (72) 93 07/08/20 00:25 26 Mechanical Ventilator 100 07/08/20 00:11 26 100/58 Mechanical Ventilator 100 07/08/20 00:00 Mechanical Ventilator Mechanical Ventilator Mechanical Ventilator Mechanical Ventilator Mechanical Ventilator 07/08/20 00:00 100 07/08/20 00:00 81 07/08/20 00:00 98.3 82 33 97/58 (71) 91 07/07/20 23:25 25 Mechanical Ventilator 100 07/07/20 23:17 82 24 100 07/07/20 23:11 25 101/62 Mechanical Ventilator 100 07/07/20 23:00 82 28 100/65 (77) 92 07/07/20 22:25 27 Mechanical Ventilator 100 07/07/20 22:11 27 104/62 Mechanical Ventilator 100 07/07/20 22:00 83 29 106/62 (77) 90 07/07/20 21:25 25 Mechanical Ventilator 100 07/07/20 21:11 26 105/62 Mechanical Ventilator 100 07/07/20 21:10 27 Mechanical Ventilator 100 07/07/20 21:10 27 Mechanical Ventilator 100 07/07/20 21:00 85 27 105/62 (76) 86 07/07/20 20:02 91 156/91 07/07/20 20:00 93 07/07/20 20:00 100 07/07/20 20:00 Mechanical Ventilator Mechanical Ventilator Mechanical Ventilator Mechanical Ventilator Mechanical Ventilator 07/07/20 20:00 98.1 92 33 156/91 (112) 81 07/07/20 19:24 92 32 100 07/07/20 19:00 33 153/89 Mechanical Ventilator 100 07/07/20 19:00 98.1 92 29 152/88 (109) 83 07/07/20 18:00 93 32 144/77 (99) 84 07/07/20 18:00 32 144/77 Endotracheal Tube 100 07/07/20 17:00 92 30 136/78 (97) 86 07/07/20 17:00 30 136/78 Endotracheal Tube 100 07/07/20 16:00 Mechanical Ventilator Mechanical Ventilator 07/07/20 16:00 98.9 89 29 129/81 (97) 87 07/07/20 16:00 29 129/81 Endotracheal Tube 100 07/07/20 16:00 90 07/07/20 16:00 100 07/07/20 15:30 92 24 81/54 (63) 94 07/07/20 15:15 93 25 82/56 (65) 94 07/07/20 15:15 25 Endotracheal Tube 100 07/07/20 15:00 23 Endotracheal Tube 100 07/07/20 15:00 22 95/59 Endotracheal Tube 100 07/07/20 15:00 93 22 95/59 (71) 94 07/07/20 14:45 21 Endotracheal Tube 100 07/07/20 14:45 21 92/61 Endotracheal Tube 100 07/07/20 14:45 95 21 92/61 (71) 92 07/07/20 14:30 21 100 07/07/20 14:30 21 94/65 Endotracheal Tube 100 07/07/20 14:30 95 21 94/65 (75) 92 07/07/20 14:15 29 Endotracheal Tube 100 07/07/20 14:15 29 110/66 Endotracheal Tube 100 07/07/20 14:15 96 29 110/66 (81) 90 07/07/20 14:00 94 29 116/75 (89) 90 07/07/20 14:00 29 Endotracheal Tube 100 07/07/20 14:00 29 116/75 Endotracheal Tube 100 07/07/20 13:55 99 24 100 07/07/20 13:45 25 95/52 Endotracheal Tube 100 07/07/20 13:45 98 25 95/52 (66) 94 07/07/20 13:30 26 93/57 Endotracheal Tube 100 07/07/20 13:30 98 26 93/57 (69) 94 07/07/20 13:15 99 24 98/60 (73) 93 07/07/20 13:15 24 98/60 Endotracheal Tube 100 07/07/20 13:00 31 Endotracheal Tube 100 07/07/20 13:00 31 98/64 Endotracheal Tube 100 07/07/20 13:00 99 31 98/64 (75) 92 07/07/20 12:00 Mechanical Ventilator Mechanical Ventilator 07/07/20 12:00 101 07/07/20 12:00 27 Endotracheal Tube 100 07/07/20 12:00 27 105/64 Endotracheal Tube 100 07/07/20 12:00 97.6 101 27 105/64 (78) 89 07/07/20 12:00 100 07/07/20 11:00 24 Endotracheal Tube 100 07/07/20 11:00 24 99/68 Endotracheal Tube 100 07/07/20 11:00 103 24 99/68 (78) 90 Intake and Output 07/07/20 07/08/20 19:00 07:00 Intake Total 1635.75 ml 1544.25 ml Output Total 400 ml 380 ml Balance 1235.75 ml 1164.25 ml Intake Free Water 300 ml 200 ml IV Total 675.75 ml 679.25 ml Tube Feeding 660 ml 605 ml Other 60 ml Output Urine Total 400 ml 380 ml Laboratory Tests Test 07/08/20 03:50 White Blood Count 7.3 K/UL (4.8-10.8) Red Blood Count 2.90 M/UL (4.20-5.40) L Hemoglobin 8.8 G/DL (12.0-16.0) L Hematocrit 28.1 % (37.0-47.0) L Mean Corpuscular Volume 97 FL (80-99) Mean Corpuscular Hemoglobin 30.2 PG (27.0-31.0) Mean Corpuscular Hemoglobin Concent 31.2 G/DL (32.0-36.0) L Red Cell Distribution Width 16.5 % (11.6-14.8) H Platelet Count 132 K/UL (150-450) L Mean Platelet Volume 10.7 FL (6.5-10.1) H Neutrophils (%) (Auto) 83.7 % (45.0-75.0) H Lymphocytes (%) (Auto) 8.2 % (20.0-45.0) L Monocytes (%) (Auto) 3.4 % (1.0-10.0) Eosinophils (%) (Auto) 3.9 % (0.0-3.0) H Basophils (%) (Auto) 0.8 % (0.0-2.0) Sodium Level 140 MMOL/L (136-145) Potassium Level 3.9 MMOL/L (3.5-5.1) Chloride Level 103 MMOL/L (98-107) Carbon Dioxide Level 39 MMOL/L (21-32) H Anion Gap -4 mmol/L (5-15) L Blood Urea Nitrogen 18 mg/dL (7-18) Creatinine 0.4 MG/DL (0.55-1.30) L Estimat Glomerular Filtration Rate > 60 mL/min (>60) Glucose Level 127 MG/DL (74-106) H Calcium Level 8.0 MG/DL (8.5-10.1) L Objective HEAD AND NECK: No JVD. Orally intubated LUNGS: Coarse rhonchi bilaterally. Bilateral chest tubes in. CARDIOVASCULAR: Regular S1 and S2 and no murmur ABDOMEN: Soft. EXTREMITIES: No pitting edema. Maxwell Carreon MD Jul 08, 2020 10:57
--- NOTE | 2020-07-08 12:22 | NUR ---
INSURANCE FAXED CLINCALS AND REVIEW TO [facility] T: [phone] F: [phone]
--- NOTE | 2020-07-08 12:45 | Surgery Progress Note ---
Surgery Progress Note Subjective Procedure Performed 1. right chest tube insertion 2. left chest tube insertion Additional Comments cxr noted ptx improved now the pleuravac functional overall prognosis guarded Objective Last 24 Hour Vital Signs Date Time Temp Pulse Resp B/P (MAP) Pulse Ox O2 Delivery O2 Flow Rate FiO2 07/08/20 12:00 100.9 92 39 101/52 (68) 90 07/08/20 12:00 106 07/08/20 10:00 101 34 98/55 (69) 86 07/08/20 09:30 99 30 108/56 (73) 86 07/08/20 09:03 22 Mechanical Ventilator 100 07/08/20 09:00 102 31 106/62 (77) 87 07/08/20 08:42 101 121/54 07/08/20 08:30 101 32 121/67 (85) 87 07/08/20 08:00 Mechanical Ventilator Mechanical Ventilator Mechanical Ventilator Mechanical Ventilator Mechanical Ventilator 07/08/20 08:00 100 07/08/20 08:00 98 07/08/20 08:00 100.2 99 31 126/65 (85) 90 07/08/20 07:30 97 30 114/63 (80) 92 07/08/20 07:00 98 32 121/62 (81) 94 07/08/20 06:25 30 Mechanical Ventilator 100 07/08/20 06:11 30 120/65 Mechanical Ventilator 100 07/08/20 06:00 97 34 127/66 (86) 87 07/08/20 05:25 24 Mechanical Ventilator 100 07/08/20 05:11 35 147/81 Mechanical Ventilator 100 07/08/20 05:00 97 34 149/81 (103) 87 07/08/20 04:25 32 Mechanical Ventilator 100 07/08/20 04:11 32 117/62 Mechanical Ventilator 100 07/08/20 04:00 98.1 93 32 116/60 (78) 93 07/08/20 04:00 100 07/08/20 04:00 87 07/08/20 04:00 Mechanical Ventilator Mechanical Ventilator Mechanical Ventilator Mechanical Ventilator Mechanical Ventilator 07/08/20 03:25 29 Mechanical Ventilator 100 07/08/20 03:11 29 97/55 Mechanical Ventilator 100 07/08/20 03:00 89 22 121/69 (86) 90 07/08/20 02:25 28 Mechanical Ventilator 100 07/08/20 02:23 85 26 100 07/08/20 02:11 28 99/66 Mechanical Ventilator 100 07/08/20 02:00 87 27 99/57 (71) 93 07/08/20 01:25 27 Mechanical Ventilator 100 07/08/20 01:11 27 101/57 Mechanical Ventilator 100 07/08/20 01:00 83 26 96/60 (72) 93 07/08/20 00:25 26 Mechanical Ventilator 100 07/08/20 00:11 26 100/58 Mechanical Ventilator 100 07/08/20 00:00 Mechanical Ventilator Mechanical Ventilator Mechanical Ventilator Mechanical Ventilator Mechanical Ventilator 07/08/20 00:00 100 07/08/20 00:00 81 07/08/20 00:00 98.3 82 33 97/58 (71) 91 07/07/20 23:25 25 Mechanical Ventilator 100 07/07/20 23:17 82 24 100 07/07/20 23:11 25 101/62 Mechanical Ventilator 100 07/07/20 23:00 82 28 100/65 (77) 92 07/07/20 22:25 27 Mechanical Ventilator 100 07/07/20 22:11 27 104/62 Mechanical Ventilator 100 07/07/20 22:00 83 29 106/62 (77) 90 07/07/20 21:25 25 Mechanical Ventilator 100 07/07/20 21:11 26 105/62 Mechanical Ventilator 100 07/07/20 21:10 27 Mechanical Ventilator 100 07/07/20 21:10 27 Mechanical Ventilator 100 07/07/20 21:00 85 27 105/62 (76) 86 07/07/20 20:02 91 156/91 07/07/20 20:00 93 07/07/20 20:00 100 07/07/20 20:00 Mechanical Ventilator Mechanical Ventilator Mechanical Ventilator Mechanical Ventilator Mechanical Ventilator 07/07/20 20:00 98.1 92 33 156/91 (112) 81 07/07/20 19:24 92 32 100 07/07/20 19:00 33 153/89 Mechanical Ventilator 100 07/07/20 19:00 98.1 92 29 152/88 (109) 83 07/07/20 18:00 93 32 144/77 (99) 84 07/07/20 18:00 32 144/77 Endotracheal Tube 100 07/07/20 17:00 92 30 136/78 (97) 86 07/07/20 17:00 30 136/78 Endotracheal Tube 100 07/07/20 16:00 Mechanical Ventilator Mechanical Ventilator 07/07/20 16:00 98.9 89 29 129/81 (97) 87 07/07/20 16:00 29 129/81 Endotracheal Tube 100 07/07/20 16:00 90 07/07/20 16:00 100 07/07/20 15:30 92 24 81/54 (63) 94 07/07/20 15:15 93 25 82/56 (65) 94 07/07/20 15:15 25 Endotracheal Tube 100 07/07/20 15:00 23 Endotracheal Tube 100 07/07/20 15:00 22 95/59 Endotracheal Tube 100 07/07/20 15:00 93 22 95/59 (71) 94 07/07/20 14:45 21 Endotracheal Tube 100 07/07/20 14:45 21 92/61 Endotracheal Tube 100 07/07/20 14:45 95 21 92/61 (71) 92 07/07/20 14:30 21 100 07/07/20 14:30 21 94/65 Endotracheal Tube 100 07/07/20 14:30 95 21 94/65 (75) 92 07/07/20 14:15 29 Endotracheal Tube 100 07/07/20 14:15 29 110/66 Endotracheal Tube 100 07/07/20 14:15 96 29 110/66 (81) 90 07/07/20 14:00 94 29 116/75 (89) 90 07/07/20 14:00 29 Endotracheal Tube 100 07/07/20 14:00 29 116/75 Endotracheal Tube 100 07/07/20 13:55 99 24 100 07/07/20 13:45 25 95/52 Endotracheal Tube 100 07/07/20 13:45 98 25 95/52 (66) 94 07/07/20 13:30 26 93/57 Endotracheal Tube 100 07/07/20 13:30 98 26 93/57 (69) 94 07/07/20 13:15 99 24 98/60 (73) 93 07/07/20 13:15 24 98/60 Endotracheal Tube 100 07/07/20 13:00 31 Endotracheal Tube 100 07/07/20 13:00 31 98/64 Endotracheal Tube 100 07/07/20 13:00 99 31 98/64 (75) 92 I&O Intake and Output 07/07/20 07/08/20 19:00 07:00 Intake Total 1635.75 ml 1544.25 ml Output Total 400 ml 380 ml Balance 1235.75 ml 1164.25 ml Intake Free Water 300 ml 200 ml IV Total 675.75 ml 679.25 ml Tube Feeding 660 ml 605 ml Other 60 ml Output Urine Total 400 ml 380 ml Dressing: saturated Cardiovascular: RSR Respiratory: decreased breath sounds Abdomen: soft, non-tender, present bowel sounds Extremities: no tenderness, no cyanosis Laboratory Tests Test 07/08/20 03:50 White Blood Count 7.3 K/UL (4.8-10.8) Red Blood Count 2.90 M/UL (4.20-5.40) L Hemoglobin 8.8 G/DL (12.0-16.0) L Hematocrit 28.1 % (37.0-47.0) L Mean Corpuscular Volume 97 FL (80-99) Mean Corpuscular Hemoglobin 30.2 PG (27.0-31.0) Mean Corpuscular Hemoglobin Concent 31.2 G/DL (32.0-36.0) L Red Cell Distribution Width 16.5 % (11.6-14.8) H Platelet Count 132 K/UL (150-450) L Mean Platelet Volume 10.7 FL (6.5-10.1) H Neutrophils (%) (Auto) 83.7 % (45.0-75.0) H Lymphocytes (%) (Auto) 8.2 % (20.0-45.0) L Monocytes (%) (Auto) 3.4 % (1.0-10.0) Eosinophils (%) (Auto) 3.9 % (0.0-3.0) H Basophils (%) (Auto) 0.8 % (0.0-2.0) Sodium Level 140 MMOL/L (136-145) Potassium Level 3.9 MMOL/L (3.5-5.1) Chloride Level 103 MMOL/L (98-107) Carbon Dioxide Level 39 MMOL/L (21-32) H Anion Gap -4 mmol/L (5-15) L Blood Urea Nitrogen 18 mg/dL (7-18) Creatinine 0.4 MG/DL (0.55-1.30) L Estimat Glomerular Filtration Rate > 60 mL/min (>60) Glucose Level 127 MG/DL (74-106) H Calcium Level 8.0 MG/DL (8.5-10.1) L Plan Problems: (1) Renal insufficiency (2) Elevated d-dimer (3) Dehydration (4) LEONARDO (acute kidney injury) (5) DMII (diabetes mellitus, type 2) (6) Hypoxia (7) Pneumonia due to COVID-19 virus (8) PNA (pneumonia) (9) Pneumothorax Assessment & Plan: Bilateral pneumothorax status post bilateral chest tubes. Still on significant vent support. leak performed. Continue weaning vent. Continue with chest tubes. Will monitor and manage chest tubes accordingly. Thank you for let me to participate in patient's care Continue bilateral chest tubes on suction the airleak is worse her peak pressures are high prognosis overall is guarded. Imaging reviewed Bilateral air leaks noted high pressures continue chest tube suction recurrent right ptx tube fixed imaging pleuravac fixed tubes functional Unfortunately patient continues to be very ill on vent support with bilateral chest tubes in place. She continues to reaccumulate pneumothorax as this type functional tubes. Occasionally tubes or Pleur-evac needs to be changed and immediately shows improvement but then again declines. Prognosis is very guarded. We will continue to follow thank you for let me participate in patient's care Elpidio Frazier Jul 08, 2020 12:45
--- NOTE | 2020-07-08 13:20 | NUR ---
NURSE NOTES: Seen by Dr. Clayton and assessed patient. No new order at this time.
--- NOTE | 2020-07-08 13:37 | Nephrology Progress Note ---
Assessment/Plan Problem List: (1) LEONARDO (acute kidney injury) (2) Dehydration (3) DMII (diabetes mellitus, type 2) (4) Pneumonia due to COVID-19 virus (5) Hypoxia Assessment 70-year-old female presents with COVID-19 pneumonia and hypoxia On admission has BUN of 77 and creatinine of 1.6. Renal failure most likely prerenal and dehydration with possible underlying chronic kidney disease Patient has elevated inflammatory markers Hypoalbuminemia Electrolyte abnormalities Hyperglycemia Plan July 08: DNR. Intubated on ventilator. FiO2 100%. Bilateral chest tube. Labs reviewed. Renal parameters stable. July 07: FiO2 100%. Renal parameters stable. Remains intubated with bilat eral chest tube. Continue per pulmonary. July 06: Labs reviewed. Renal parameters stable. ABG suggests retaining of CO2. Patient continues to be on FiO2 100%. Has bilateral chest tubes. Remains intubated on ventilator. Continue to monitor renal parameters. July 05: No CHEM panel drawn today. Status quo. Pulmonary status unchanged. We will continue to monitor renal parameters and electrolytes. Continue per consultants. July 04: Status quo. On ventilator. Full code. Bilateral chest tube. Renal parameters stable. July 03: Patient remains full code. Intubated on ventilator. Has chest tube. Labs reviewed. Renal parameters stable. Continue per consultants. July 02: Remains intubated. Has a bilateral chest tube. He is full code. Labs reviewed. Abnormal electrolyte addressed. Continue per consultants. July 01: Remains intubated. Continues to have bilateral chest tube. Full code. Labs reviewed. Renal parameters stable. Low phosphorus addressed. Discussed with NORMAN Lyon. June 30: Full code. Intubated. Bilateral chest tube. As reviewed. Abnormal electrolytes addressed. June 29: Full code. Intubated. Bilateral chest tube. Unstable pulmonary status. ABG ordered. Electrolyte imbalance addressed. Discussed with NORMAN Montalvo. June 28: Labs reviewed. Abnormal electrolytes addressed. Patient remains full code. Continue per consultants. June 27: No chemistry panel done today. Remains full code. Medication list reviewed. Continue per consultants. Will monitor electrolytes and renal panel in a.m. June 26: Status quo. Remains full code. Labs reviewed. Main IV changed to normal saline 50 cc an hour. Continue per consultants and pulmonary. June 25: Remains intubated. Has bilateral chest tube. Full code. Labs reviewed. Abnormal electrolytes addressed. Albumin bolus given. Continue to monitor renal parameters. Poor prognosis. June 24: Patient in ICU. Intubated. Has bilateral chest tube. Labs reviewed. Renal parameters stable. Low phosphorus addressed. Continue per consultants. Full code. Poor prognosis. June 23: Patient in ICU. Intubated. Due for insertion of a chest tube. Has pneumothorax. Renal parameters are stable. Serum sodium rising. Will adjust IV fluid. Continue per consultants. Patient full code. Prognosis poor. June 22: Labs reviewed. Remains on BiPAP which is not changed to high flow oxygen due to pneumothorax found on chest x-ray. Serum sodium 155. Continues on D5W. Electrolytes within normal limits. Check 2D echocardiogram. Coreg for blood pressure and heart rate. June 21: Status quo. On BiPAP. Full code. Serum sodium 153. Continue D5W. Continue to monitor electrolytes. Continue per consultants. June 20: Patient full code. On BiPAP. Labs reviewed. Serum sodium rising. Will increase D5W to 75 cc an hour. Continue to monitor electrolytes. June 19: IV changed to D5W. Monitor blood sugar. Monitor electrolytes. Medication list reviewed. Patient is being treated for COVID-19 pneumonia. Patient is full code. Previously Pulmonary support IV antibiotics Slow hydration Avoid nephrotoxic Monitor renal parameters Per orders Subjective ROS Limited/Unobtainable: Yes Objective Objective Last 24 Hour Vital Signs Date Time Temp Pulse Resp B/P (MAP) Pulse Ox O2 Delivery O2 Flow Rate FiO2 07/08/20 12:00 100.9 92 39 101/52 (68) 90 07/08/20 12:00 106 07/08/20 10:00 101 34 98/55 (69) 86 07/08/20 09:30 99 30 108/56 (73) 86 07/08/20 09:03 22 Mechanical Ventilator 100 07/08/20 09:00 102 31 106/62 (77) 87 07/08/20 08:42 101 121/54 07/08/20 08:30 101 32 121/67 (85) 87 07/08/20 08:00 Mechanical Ventilator Mechanical Ventilator Mechanical Ventilator Mechanical Ventilator Mechanical Ventilator 07/08/20 08:00 100 07/08/20 08:00 98 07/08/20 08:00 100.2 99 31 126/65 (85) 90 07/08/20 07:30 97 30 114/63 (80) 92 07/08/20 07:00 98 32 121/62 (81) 94 07/08/20 06:25 30 Mechanical Ventilator 100 07/08/20 06:11 30 120/65 Mechanical Ventilator 100 07/08/20 06:00 97 34 127/66 (86) 87 07/08/20 05:25 24 Mechanical Ventilator 100 07/08/20 05:11 35 147/81 Mechanical Ventilator 100 07/08/20 05:00 97 34 149/81 (103) 87 07/08/20 04:25 32 Mechanical Ventilator 100 07/08/20 04:11 32 117/62 Mechanical Ventilator 100 07/08/20 04:00 98.1 93 32 116/60 (78) 93 07/08/20 04:00 100 07/08/20 04:00 87 07/08/20 04:00 Mechanical Ventilator Mechanical Ventilator Mechanical Ventilator Mechanical Ventilator Mechanical Ventilator 07/08/20 03:25 29 Mechanical Ventilator 100 07/08/20 03:11 29 97/55 Mechanical Ventilator 100 07/08/20 03:00 89 22 121/69 (86) 90 07/08/20 02:25 28 Mechanical Ventilator 100 07/08/20 02:23 85 26 100 07/08/20 02:11 28 99/66 Mechanical Ventilator 100 07/08/20 02:00 87 27 99/57 (71) 93 07/08/20 01:25 27 Mechanical Ventilator 100 07/08/20 01:11 27 101/57 Mechanical Ventilator 100 07/08/20 01:00 83 26 96/60 (72) 93 07/08/20 00:25 26 Mechanical Ventilator 100 07/08/20 00:11 26 100/58 Mechanical Ventilator 100 07/08/20 00:00 Mechanical Ventilator Mechanical Ventilator Mechanical Ventilator Mechanical Ventilator Mechanical Ventilator 07/08/20 00:00 100 07/08/20 00:00 81 07/08/20 00:00 98.3 82 33 97/58 (71) 91 07/07/20 23:25 25 Mechanical Ventilator 100 07/07/20 23:17 82 24 100 07/07/20 23:11 25 101/62 Mechanical Ventilator 100 07/07/20 23:00 82 28 100/65 (77) 92 07/07/20 22:25 27 Mechanical Ventilator 100 07/07/20 22:11 27 104/62 Mechanical Ventilator 100 07/07/20 22:00 83 29 106/62 (77) 90 07/07/20 21:25 25 Mechanical Ventilator 100 07/07/20 21:11 26 105/62 Mechanical Ventilator 100 07/07/20 21:10 27 Mechanical Ventilator 100 07/07/20 21:10 27 Mechanical Ventilator 100 07/07/20 21:00 85 27 105/62 (76) 86 07/07/20 20:02 91 156/91 07/07/20 20:00 93 07/07/20 20:00 100 07/07/20 20:00 Mechanical Ventilator Mechanical Ventilator Mechanical Ventilator Mechanical Ventilator Mechanical Ventilator 07/07/20 20:00 98.1 92 33 156/91 (112) 81 07/07/20 19:24 92 32 100 07/07/20 19:00 33 153/89 Mechanical Ventilator 100 07/07/20 19:00 98.1 92 29 152/88 (109) 83 07/07/20 18:00 93 32 144/77 (99) 84 07/07/20 18:00 32 144/77 Endotracheal Tube 100 07/07/20 17:00 92 30 136/78 (97) 86 07/07/20 17:00 30 136/78 Endotracheal Tube 100 07/07/20 16:00 Mechanical Ventilator Mechanical Ventilator 07/07/20 16:00 98.9 89 29 129/81 (97) 87 07/07/20 16:00 29 129/81 Endotracheal Tube 100 07/07/20 16:00 90 07/07/20 16:00 100 07/07/20 15:30 92 24 81/54 (63) 94 07/07/20 15:15 93 25 82/56 (65) 94 07/07/20 15:15 25 Endotracheal Tube 100 07/07/20 15:00 23 Endotracheal Tube 100 07/07/20 15:00 22 95/59 Endotracheal Tube 100 07/07/20 15:00 93 22 95/59 (71) 94 07/07/20 14:45 21 Endotracheal Tube 100 07/07/20 14:45 21 92/61 Endotracheal Tube 100 07/07/20 14:45 95 21 92/61 (71) 92 07/07/20 14:30 21 100 07/07/20 14:30 21 94/65 Endotracheal Tube 100 07/07/20 14:30 95 21 94/65 (75) 92 07/07/20 14:15 29 Endotracheal Tube 100 07/07/20 14:15 29 110/66 Endotracheal Tube 100 07/07/20 14:15 96 29 110/66 (81) 90 07/07/20 14:00 94 29 116/75 (89) 90 07/07/20 14:00 29 Endotracheal Tube 100 07/07/20 14:00 29 116/75 Endotracheal Tube 100 07/07/20 13:55 99 24 100 07/07/20 13:45 25 95/52 Endotracheal Tube 100 07/07/20 13:45 98 25 95/52 (66) 94 Intake and Output 07/07/20 07/08/20 19:00 07:00 Intake Total 1635.75 ml 1544.25 ml Output Total 400 ml 380 ml Balance 1235.75 ml 1164.25 ml Intake Free Water 300 ml 200 ml IV Total 675.75 ml 679.25 ml Tube Feeding 660 ml 605 ml Other 60 ml Output Urine Total 400 ml 380 ml Current Medications Medications (Trade) Dose Ordered Sig/Maya Route PRN Reason Start Time Stop Time Status Last Admin Dose Admin Acetaminophen (Tylenol) 500 mg Q4H PRN ORAL Mild Pain (Pain Scale 1-3) 06/18/20 00:15 07/18/20 00:14 06/24/20 17:51 Acetaminophen (Tylenol) 500 mg Q4H PRN ORAL Temp >100.5 06/18/20 00:15 07/18/20 00:14 06/29/20 20:01 Carvedilol (Coreg) 6.25 mg EVERY 12 HOURS ORAL 06/22/20 21:00 07/22/20 20:59 07/08/20 08:42 Chlorhexidine Gluconate (Sissy-Hex 2%) 1 applic DAILY@1999 TOPIC 06/28/20 20:00 09/26/20 19:59 07/07/20 20:02 Dextrose (Dextrose 50%) 25 ml Q30M PRN IV Hypoglycemia 06/18/20 14:15 09/16/20 14:14 Dextrose (Dextrose 50%) 50 ml Q30M PRN IV Hypoglycemia 06/18/20 14:15 09/16/20 14:14 Docusate Sodium (Colace) 100 mg EVERY 8 HOURS NG 07/02/20 14:00 07/28/20 12:59 07/08/20 05:13 Fentanyl Citrate 250 ml @ 1 mls/hr Q24H IV 07/07/20 19:15 07/09/20 19:14 07/07/20 21:11 Furosemide (Lasix) 40 mg DAILY IV 06/28/20 17:45 07/28/20 16:59 07/08/20 08:41 Haloperidol Lactate (Haldol) 10 mg Q6H PRN IM Agitation 06/23/20 11:30 08/07/20 11:29 06/23/20 11:34 Insulin Aspart (NovoLOG) while NPO Q6HR SUBQ 06/18/20 18:00 09/16/20 17:59 07/08/20 12:49 Midazolam HCl 100 ml @ 0 mls/hr Q24H PRN IV SEDATION 07/08/20 07:45 07/10/20 07:44 07/08/20 09:03 Pantoprazole (Protonix) 40 mg EVERY 12 HOURS IVP 06/18/20 21:00 07/18/20 20:59 07/08/20 08:41 Sodium Chloride 1,000 ml @ 50 mls/hr Q20H IV 06/26/20 08:00 07/26/20 07:59 07/07/20 23:26 Vitamin D (Vitamin D) 2,000 unit DAILY GT 06/29/20 10:30 07/29/20 10:29 07/08/20 08:40 Laboratory Tests 07/08/20 03:50: White Blood Count 7.3, Red Blood Count 2.90L, Hemoglobin 8.8L, Hematocrit 28.1L, Mean Corpuscular Volume 97, Mean Corpuscular Hemoglobin 30.2, Mean Corpuscular Hemoglobin Concent 31.2L, Red Cell Distribution Width 16.5H, Platelet Count 132L , Mean Platelet Volume 10.7H, Neutrophils (%) (Auto) 83.7H, Lymphocytes (%) (Auto) 8.2L, Monocytes (%) (Auto) 3.4, Eosinophils (%) (Auto) 3.9H, Basophils (%) (Auto) 0.8, Sodium Level 140, Potassium Level 3.9, Chloride Level 103, Carbon Dioxide Level 39H, Anion Gap -4L, Blood Urea Nitrogen 18, Creatinine 0.4L , Estimat Glomerular Filtration Rate > 60, Glucose Level 127H, Calcium Level 8.0L Height (Feet): 5 Height (Inches): 2.00 Weight (Pounds): 138 General Appearance: no apparent distress EENT: other - Intubated on ventilator Cardiovascular: tachycardia Respiratory/Chest: decreased breath sounds, other - Bilateral chest tube Abdomen: distended Raza De Jesus MD Jul 08, 2020 13:37
--- NOTE | 2020-07-08 13:42 | General Progress Note ---
Subjective ROS Limited/Unobtainable: Yes Allergies: Coded Allergies: No Known Allergies (Unverified , 06/17/20) Objective Last 24 Hour Vital Signs Date Time Temp Pulse Resp B/P (MAP) Pulse Ox O2 Delivery O2 Flow Rate FiO2 07/08/20 12:00 100.9 92 39 101/52 (68) 90 07/08/20 12:00 106 07/08/20 10:00 101 34 98/55 (69) 86 07/08/20 09:30 99 30 108/56 (73) 86 07/08/20 09:03 22 Mechanical Ventilator 100 07/08/20 09:00 102 31 106/62 (77) 87 07/08/20 08:42 101 121/54 07/08/20 08:30 101 32 121/67 (85) 87 07/08/20 08:00 Mechanical Ventilator Mechanical Ventilator Mechanical Ventilator Mechanical Ventilator Mechanical Ventilator 07/08/20 08:00 100 07/08/20 08:00 98 07/08/20 08:00 100.2 99 31 126/65 (85) 90 07/08/20 07:30 97 30 114/63 (80) 92 07/08/20 07:00 98 32 121/62 (81) 94 07/08/20 06:25 30 Mechanical Ventilator 100 07/08/20 06:11 30 120/65 Mechanical Ventilator 100 07/08/20 06:00 97 34 127/66 (86) 87 07/08/20 05:25 24 Mechanical Ventilator 100 07/08/20 05:11 35 147/81 Mechanical Ventilator 100 07/08/20 05:00 97 34 149/81 (103) 87 07/08/20 04:25 32 Mechanical Ventilator 100 07/08/20 04:11 32 117/62 Mechanical Ventilator 100 07/08/20 04:00 98.1 93 32 116/60 (78) 93 07/08/20 04:00 100 07/08/20 04:00 87 07/08/20 04:00 Mechanical Ventilator Mechanical Ventilator Mechanical Ventilator Mechanical Ventilator Mechanical Ventilator 07/08/20 03:25 29 Mechanical Ventilator 100 07/08/20 03:11 29 97/55 Mechanical Ventilator 100 07/08/20 03:00 89 22 121/69 (86) 90 07/08/20 02:25 28 Mechanical Ventilator 100 07/08/20 02:23 85 26 100 07/08/20 02:11 28 99/66 Mechanical Ventilator 100 07/08/20 02:00 87 27 99/57 (71) 93 07/08/20 01:25 27 Mechanical Ventilator 100 07/08/20 01:11 27 101/57 Mechanical Ventilator 100 07/08/20 01:00 83 26 96/60 (72) 93 07/08/20 00:25 26 Mechanical Ventilator 100 07/08/20 00:11 26 100/58 Mechanical Ventilator 100 07/08/20 00:00 Mechanical Ventilator Mechanical Ventilator Mechanical Ventilator Mechanical Ventilator Mechanical Ventilator 07/08/20 00:00 100 07/08/20 00:00 81 07/08/20 00:00 98.3 82 33 97/58 (71) 91 07/07/20 23:25 25 Mechanical Ventilator 100 07/07/20 23:17 82 24 100 07/07/20 23:11 25 101/62 Mechanical Ventilator 100 07/07/20 23:00 82 28 100/65 (77) 92 07/07/20 22:25 27 Mechanical Ventilator 100 07/07/20 22:11 27 104/62 Mechanical Ventilator 100 07/07/20 22:00 83 29 106/62 (77) 90 07/07/20 21:25 25 Mechanical Ventilator 100 07/07/20 21:11 26 105/62 Mechanical Ventilator 100 07/07/20 21:10 27 Mechanical Ventilator 100 07/07/20 21:10 27 Mechanical Ventilator 100 07/07/20 21:00 85 27 105/62 (76) 86 07/07/20 20:02 91 156/91 07/07/20 20:00 93 07/07/20 20:00 100 07/07/20 20:00 Mechanical Ventilator Mechanical Ventilator Mechanical Ventilator Mechanical Ventilator Mechanical Ventilator 07/07/20 20:00 98.1 92 33 156/91 (112) 81 07/07/20 19:24 92 32 100 07/07/20 19:00 33 153/89 Mechanical Ventilator 100 07/07/20 19:00 98.1 92 29 152/88 (109) 83 07/07/20 18:00 93 32 144/77 (99) 84 07/07/20 18:00 32 144/77 Endotracheal Tube 100 07/07/20 17:00 92 30 136/78 (97) 86 07/07/20 17:00 30 136/78 Endotracheal Tube 100 07/07/20 16:00 Mechanical Ventilator Mechanical Ventilator 07/07/20 16:00 98.9 89 29 129/81 (97) 87 07/07/20 16:00 29 129/81 Endotracheal Tube 100 07/07/20 16:00 90 07/07/20 16:00 100 07/07/20 15:30 92 24 81/54 (63) 94 07/07/20 15:15 93 25 82/56 (65) 94 07/07/20 15:15 25 Endotracheal Tube 100 07/07/20 15:00 23 Endotracheal Tube 100 07/07/20 15:00 22 95/59 Endotracheal Tube 100 07/07/20 15:00 93 22 95/59 (71) 94 07/07/20 14:45 21 Endotracheal Tube 100 07/07/20 14:45 21 92/61 Endotracheal Tube 100 07/07/20 14:45 95 21 92/61 (71) 92 07/07/20 14:30 21 100 07/07/20 14:30 21 94/65 Endotracheal Tube 100 07/07/20 14:30 95 21 94/65 (75) 92 07/07/20 14:15 29 Endotracheal Tube 100 07/07/20 14:15 29 110/66 Endotracheal Tube 100 07/07/20 14:15 96 29 110/66 (81) 90 07/07/20 14:00 94 29 116/75 (89) 90 07/07/20 14:00 29 Endotracheal Tube 100 07/07/20 14:00 29 116/75 Endotracheal Tube 100 07/07/20 13:55 99 24 100 07/07/20 13:45 25 95/52 Endotracheal Tube 100 07/07/20 13:45 98 25 95/52 (66) 94 Intake and Output 07/07/20 07/08/20 19:00 07:00 Intake Total 1635.75 ml 1544.25 ml Output Total 400 ml 380 ml Balance 1235.75 ml 1164.25 ml Intake Free Water 300 ml 200 ml IV Total 675.75 ml 679.25 ml Tube Feeding 660 ml 605 ml Other 60 ml Output Urine Total 400 ml 380 ml Laboratory Tests 07/08/20 03:50: White Blood Count 7.3, Red Blood Count 2.90L, Hemoglobin 8.8L, Hematocrit 28.1L, Mean Corpuscular Volume 97, Mean Corpuscular Hemoglobin 30.2, Mean Corpuscular Hemoglobin Concent 31.2L, Red Cell Distribution Width 16.5H, Platelet Count 132L , Mean Platelet Volume 10.7H, Neutrophils (%) (Auto) 83.7H, Lymphocytes (%) (Auto) 8.2L, Monocytes (%) (Auto) 3.4, Eosinophils (%) (Auto) 3.9H, Basophils (%) (Auto) 0.8, Sodium Level 140, Potassium Level 3.9, Chloride Level 103, Carbon Dioxide Level 39H, Anion Gap -4L, Blood Urea Nitrogen 18, Creatinine 0.4L , Estimat Glomerular Filtration Rate > 60, Glucose Level 127H, Calcium Level 8.0L Height (Feet): 5 Height (Inches): 2.00 Weight (Pounds): 138 Assessment/Plan Problem List: (1) Elevated d-dimer ICD Codes: R79.89 - Other specified abnormal findings of blood chemistry SNOMED: 494950790 (2) Renal insufficiency ICD Codes: N28.9 - Disorder of kidney and ureter, unspecified SNOMED: 221385280, 542323930 (3) PNA (pneumonia) ICD Codes: J18.9 - Pneumonia, unspecified organism SNOMED: 488568731 (4) Dehydration ICD Codes: E86.0 - Dehydration SNOMED: 09234069 (5) LEONARDO (acute kidney injury) ICD Codes: N17.9 - Acute kidney failure, unspecified SNOMED: 6856192, 60576427 (6) Hypoxia ICD Codes: R09.02 - Hypoxemia; J12.82 - Pneumonia due to coronavirus disease 2019 SNOMED: 390055233 (7) Pneumonia due to COVID-19 virus ICD Codes: U07.1 - COVID-19; J12.82 - Pneumonia due to coronavirus disease 2019 SNOMED: 051001007061060230 (8) DMII (diabetes mellitus, type 2) ICD Codes: E11.9 - Type 2 diabetes mellitus without complications SNOMED: 37493944 Status: progressing, unchanged Assessment/Plan: covid + failure to wean not improving lethargic trach per dr thompson intubated full support dehydration poor prognosis bilat chest tube recurrent very poor prognosis malnutrition Vidya Clayton MD Jul 08, 2020 13:42
--- NOTE | 2020-07-08 14:10 | Diagnostic Imaging Report ---
Indication: Dyspnea Technique: One view of the chest Comparison: 07/07/2020 Findings: Right chest tube remains. Right pneumothorax persists, unchanged but perhaps slightly smaller left chest tube remains. No definite left pneumothorax. Bilateral infiltrates are unchanged. Other tubes and lines are stable. Impression: Perhaps slightly improved right pneumothorax. Otherwise little foreign exchange clerk one day
--- NOTE | 2020-07-08 14:55 | NUR ---
NURSE NOTES:WOUND CARE FOLLOW-UP NOTES: Pt deconditioned. Unstageable Pressure Injury noted to L earlobe(L)2.4cm x (W)0.8cm. Base of wound is 100% dry eschar. No erythema,or edema periwound. Sacral DTPI that is evolving and is now partially opened(25% ). Base of wound is moist and thea with surrounding purpuric base that is fluctuant (L)6.5cm x (W)7cm. Non-Blanchable erythema without induration periwound. R and L Ischial tuberosities are indurated, purpuric with erythematous borders. Perineum is erythematous, and edematous. Small amt milky vaginal discharge noted. Fingers both hands are purplish/red in colour. Both R and L Heels are boggy. Both feet are dusky and cool to touch. Tx.Plan: Swab L Ear with Betadine. Cover with Optifoam drsg. Change every 3 days and prn. Cleanse Sacrum with Saline. Apply TheraHoney to wound. Apply Moisture Barrier Paste periwound. Cover with Optifoam drsg. Change every 3 days and prn. Apply Cavilon Skin Barrier to both heels. Cover each Heel with Optifoam drsg. Change every 7 days and prn. Reposition at least every 2hours or as tolerated. Off-load heels with Pillow.
--- NOTE | 2020-07-08 15:30 | NUR ---
NURSE NOTES: Seen by wound care nursed and asessed patient. Treatment given.
--- NOTE | 2020-07-08 17:02 | NUR ---
NURSE NOTES: Bed bath given. Oral and trach care given.
--- NOTE | 2020-07-08 18:22 | NUR ---
NURSE NOTES: Still running fentanyl 60mcg/hr and versed 5mg/hr to meet RASS -2. Will continue plan of care.
--- NOTE | 2020-07-08 19:20 | NUR ---
NURSE HAND-OFF REPORT: Latest Vital Signs: Temperature 97.0 , Pulse 88 , B/P 102 /61 , Respiratory Rate 35 , O2 SAT 86 , Mechanical Ventilator, O2 Flow Rate . Vital Sign Comment: stable EKG Rhythm: Sinus Rhythm Rhythm change?: N Notified?: Y -Dr. Sewell see nurses note MD Response: No New Orders Received Latest Carney Fall Score: 50 Fall Risk: High Risk Safety Measures: Call light Within Reach, Bed Alarm Zone 2, Side Rails Side Rails x3, Bed position Low and Locked. Fall Precautions: Yellow Socks Door Sign Patient Fall Education Report given to NORMAN Mcgill. Endorsed plan of care.
[2020-07-08] MEDS: fentaNYL 2500mcg/NS 250ml 250 ML IV SCH (19:23)
--- NOTE | 2020-07-08 19:30 | NUR ---
NURSE NOTES: RN received report from Norberto AUSTIN. Patient vitals stable at this time. patient has Fentanyl and Versed infusing for sedation. Patient on a mechanical ventilator with a setting of AC 20 Tidal volume 400 PEEP of 12 and FIO2 100%. Patient has tube feeding Glucerna 1.2 @55ml/hr for nutrition. Patient repositioned for comfort. RN will continue to monitor.
[2020-07-08] MEDS: Dyna-Hex 2% Top Sol 2oz TOPIC SCH (19:50)
--- NOTE | 2020-07-08 21:30 | NUR ---
NURSE NOTES: Patient vitals stable at this time. Patient repositioned. Patient feeding pump alarming. patient OG found to be clogged. RN troubleshooting and eventually kayley clogged. RN flushed with 200 ml of water. RN will continue to monitor.
[2020-07-09] VITALS (56 sets, daily range): BP systolic 74–165; BP diastolic 46–87
--- NOTE | 2020-07-09 00:20 | NUR ---
NURSE NOTES: Patient resting. Patient vitals stable. patient bathed and repositioned. RN will continue to monitor.
--- NOTE | 2020-07-09 02:30 | NUR ---
NURSE NOTES: Patient vitals stable at this time. Patient sedated and resting. RN repositioned patient. RN will continue to monitor.
--- NOTE | 2020-07-09 04:30 | NUR ---
NURSE NOTES: Patient vitals stable at this time. Patient febrile with a temp of 100.1. RN will wipe down patient with a cool towel and use ice packs. Patient repositioned. RN will continue to monitor.
[2020-07-09 04:37] LABS: HEMATOCRIT 28.1 % (37.0-47.0); HEMOGLOBIN 8.8 G/DL (12.0-16.0); MEAN CORPUSCULAR VOLUME 97 FL (80-99); PLATELET COUNT 174 K/UL (150-450); RED CELL DISTRIBUTION WIDTH 16.6 % (11.6-14.8); WHITE BLOOD COUNT 8.4 K/UL (4.8-10.8)
[2020-07-09] MEDS: Docusate 100mg/10ml Liq NG SCH ×3 (05:19→22:00)
[2020-07-09 05:30] LABS: ALANINE AMINOTRANSFERASE 45 U/L (12-78); ALBUMIN/GLOBULIN RATIO 0.2 (1.0-2.7); ALKALINE PHOSPHATASE 153 U/L (46-116); ANION GAP 0 mmol/L (5-15); ASPARTATE AMINO TRANSFERASE 54 U/L (15-37); BILIRUBIN,TOTAL 0.4 MG/DL (0.2-1.0); BLOOD UREA NITROGEN 17 mg/dL (7-18); CALCIUM 7.7 MG/DL (8.5-10.1); CARBON DIOXIDE 38 MMOL/L (21-32); CHLORIDE 103 MMOL/L (98-107); CREATININE 0.4 MG/DL (0.55-1.30); SODIUM 141 MMOL/L (136-145)
[2020-07-09 05:35] LABS: PHOSPHORUS 3.1 MG/DL (2.5-4.9)
[2020-07-09] MEDS: NovoLOG Insulin Flexpen SUBQ SCH ×4 (05:51→18:33)
--- NOTE | 2020-07-09 06:45 | NUR ---
CASE MANAGEMENT:REVIEW 07/09/20 SI: COVID PNEUMONIA ~ INTUBATED. PNTHX W/BILATERAL CHEST TUBES 100.1 111 38 133/70 87% ON VENT SUPPORT W/100% FIO2 PEEP~12.0 H/H-8.8/28.1 CO2+38 CA-7.7 CRP+13.6 BNP+1350 IS:VERSED GTT FENTANYL GTT IV CEFEPIME Q12 IV LASIX QD IVF@50/HR COREG NG Q12HR IV PROTONIX Q12H : ICU STATUS DCP: FROM HOME PLAN: SUPPORTIVE CARE BILATERAL CHEST TUBES TO SUCTION WEAN OXYGEN ABLE
[2020-07-09] MEDS: Versed 50mg/NS 100ml 100 ML IV PRN ×2 (06:55→18:00)
--- NOTE | 2020-07-09 06:57 | Hematology/Onc Progress Note ---
Assessment/Plan Assessment/Plan Assessment and recs # Leukocytosis with Pneumonia due to COVID-19 virus -> wbc trend 15-->11-->10->17-->18->11->21->9 --> ABX as per id ctx-->off-->cefepime --> imaging does show pna --> anticoag recommended --> on remdesivir # Anemia of chronic disease --> hgb 12->10-->9-->11-->10.8->10-->9.6-->8.8 -> transfuse prn --> r/o hemolysis # Thrombocytopenia due to likely plt destruction, Covid19++ with Hypoxia -> steriods, abx per id --> plt 117-->121-->124->77-->90-->132 --> smear is noted # Elevated ddimer due to covid --> duplex legs -> LOVENOX sq # Renal insufficiency -> per renal care # Sepsis due to above --> abx, fluid resuscitation # Dvt ppx lovenox sq bid Appreciate consultation and dw RN Subjective Constitutional: Denies: no symptoms, chills, fever, malaise, weakness, other HEENT: Denies: no symptoms, eye pain, blurred vision, tearing, double vision, ear pain, ear discharge, nose pain, nose congestion, throat pain, throat swelling, mouth pain, mouth swelling, other Cardiovascular: Denies: no symptoms, chest pain, edema, irregular heart rate, lightheadedness, palpitations, syncope, other Respiratory: Denies: no symptoms, cough, shortness of breath, SOB with excertion, SOB at rest, sputum, wheezing, other Gastrointestinal/Abdominal: Denies: no symptoms, abdomen distended, abdominal pain, black stools, tarry stools, blood in stool, constipated, diarrhea, difficulty swallowing, nausea, poor appetite, poor fluid intake, rectal bleeding, vomiting, other Neurologic/Psychiatric: Denies: no symptoms, anxiety, depressed, emotional problems, headache, numbness, paresthesia, pre-existing deficit, seizure, tingling, tremors, weakness, other Endocrine: Denies: no symptoms, excessive sweating, flushing, intolerance to cold, intolerance to heat, increased hunger, increased thirst, increased urine, unexplained weight gain, unexplained weight loss, other Allergies: Coded Allergies: No Known Allergies (Unverified , 06/17/20) Subjective 06/19 sleeping, comfortable, on bipap, meds have been reviewed 06/21 on bipap, labs have been reviewed, no major events 06/22 bipap labs reviewed, meds noted, no bleeding 06/23 bipap labs noted, no bleeding, meds reviewed, dw rn 06/24 on vent, labs reviewed, meds reviewed 06/25 on vent, with ctx as abx, labs noted, no bleeding 06/26 vent, with ogt, with helms, labs noted, no bleeding plts lower 06/28 labs are pending, on vent, helms intract, no new changes 06/29 icu, on vent, hgb 11, plt 124, meds noted, on ctx 06/30 icu, edematous, is on vent, labs reviewed, abx 07/01 icu, on vent, labs noted, no bleeding, plt 77, labs ordered 07/02 icu, nv, meds noted, no bleeding, plt 91, hgb 9 07/03 icu, nv, meds noted, right chest tube with output, hgb 10 07/05 icu, nv, meds reviewed, labs noted, b/l chest tubes in place 07/06 icu, nv, meds, labs have been ordered, chest tube draining 07/07 icu, chest tubes, on fen, versed, no major changes 07/08 icu, v, chest xray is noted, with worsening right pneumothorax, labs noted 07/09 meds noted, vent, labs reviewed, smear noted. lovenox bid Objective Objective Current Medications Medications (Trade) Dose Ordered Sig/Maya Route PRN Reason Start Time Stop Time Status Last Admin Dose Admin Acetaminophen (Tylenol) 500 mg Q4H PRN ORAL Mild Pain (Pain Scale 1-3) 06/18/20 00:15 07/18/20 00:14 06/24/20 17:51 Acetaminophen (Tylenol) 500 mg Q4H PRN ORAL Temp >100.5 06/18/20 00:15 07/18/20 00:14 06/29/20 20:01 Carvedilol (Coreg) 6.25 mg EVERY 12 HOURS ORAL 06/22/20 21:00 07/22/20 20:59 07/08/20 21:30 Chlorhexidine Gluconate (Sissy-Hex 2%) 1 applic DAILY@2000 TOPIC 06/28/20 20:00 09/26/20 19:59 07/08/20 19:50 Dextrose (Dextrose 50%) 25 ml Q30M PRN IV Hypoglycemia 06/18/20 14:15 09/16/20 14:14 Dextrose (Dextrose 50%) 50 ml Q30M PRN IV Hypoglycemia 06/18/20 14:15 09/16/20 14:14 Docusate Sodium (Colace) 100 mg EVERY 8 HOURS NG 07/02/20 14:00 07/28/20 12:59 07/09/20 05:19 Fentanyl Citrate 250 ml @ 1 mls/hr Q24H IV 07/07/20 19:15 07/09/20 19:14 07/08/20 19:23 Furosemide (Lasix) 40 mg DAILY IV 06/28/20 17:45 07/28/20 16:59 07/08/20 08:41 Haloperidol Lactate (Haldol) 10 mg Q6H PRN IM Agitation 06/23/20 11:30 08/07/20 11:29 06/23/20 11:34 Insulin Aspart (NovoLOG) while NPO Q6HR SUBQ 06/18/20 18:00 09/16/20 17:59 07/09/20 05:51 Midazolam HCl 100 ml @ 0 mls/hr Q24H PRN IV SEDATION 07/08/20 07:45 07/10/20 07:44 07/08/20 19:24 Pantoprazole (Protonix) 40 mg EVERY 12 HOURS IVP 06/18/20 21:00 07/18/20 20:59 07/08/20 21:30 Sodium Chloride 1,000 ml @ 50 mls/hr Q20H IV 06/26/20 08:00 07/26/20 07:59 07/08/20 19:50 Vitamin D (Vitamin D) 2,000 unit DAILY GT 06/29/20 10:30 07/29/20 10:29 07/08/20 08:40 Last 24 Hour Vital Signs Date Time Temp Pulse Resp B/P (MAP) Pulse Ox O2 Delivery O2 Flow Rate FiO2 07/09/20 06:30 111 38 133/70 (91) 87 07/09/20 06:15 112 38 130/66 (87) 87 07/09/20 06:00 111 38 128/66 (86) 87 07/09/20 05:45 110 38 134/63 (86) 86 07/09/20 05:30 110 38 125/65 (85) 85 07/09/20 05:15 109 37 123/65 (84) 85 07/09/20 05:00 109 38 111/63 (79) 84 07/09/20 04:45 107 37 117/59 (78) 85 07/09/20 04:30 107 38 139/69 (92) 86 07/09/20 04:00 107 36 114/59 (77) 86 07/09/20 04:00 100 07/09/20 04:00 Mechanical Ventilator Mechanical Ventilator Mechanical Ventilator Mechanical Ventilator Mechanical Ventilator 07/09/20 04:00 77 07/09/20 03:45 107 37 115/58 (77) 86 07/09/20 03:30 104 35 92/49 (63) 87 07/09/20 03:15 104 35 133/70 (91) 83 07/09/20 03:15 104 35 133/70 (91) 83 07/09/20 03:14 104 29 100 07/09/20 03:00 103 35 110/59 (76) 82 07/09/20 02:45 103 33 103/57 (72) 82 07/09/20 02:30 101 35 101/53 (69) 83 07/09/20 02:15 102 35 112/62 (79) 83 07/09/20 02:00 101 35 101/59 (73) 82 07/09/20 01:45 101 35 103/58 (73) 82 07/09/20 01:45 101 35 103/58 (73) 82 07/09/20 01:30 99 34 106/57 (73) 82 07/09/20 01:15 101 34 104/58 (73) 81 07/09/20 01:00 99 35 117/63 (81) 80 07/09/20 00:45 98 36 116/64 (81) 80 07/09/20 00:30 99 35 105/60 (75) 78 07/09/20 00:15 97 35 117/62 (80) 79 07/09/20 00:00 Mechanical Ventilator Mechanical Ventilator Mechanical Ventilator Mechanical Ventilator Mechanical Ventilator 07/09/20 00:00 95 35 116/63 (80) 80 07/09/20 00:00 95 35 116/63 (80) 80 07/09/20 00:00 100 07/09/20 00:00 91 07/08/20 23:45 93 35 111/63 (79) 81 07/08/20 23:30 94 31 100/58 (72) 81 07/08/20 23:24 18 91/46 100 07/08/20 23:15 90 30 91/51 (64) 85 07/08/20 23:03 90 27 100 07/08/20 23:00 90 29 83/53 (63) 83 07/08/20 23:00 90 29 83/53 (63) 83 07/08/20 22:45 88 30 83/50 (61) 85 07/08/20 22:30 88 30 79/53 (62) 86 07/08/20 22:30 88 30 79/53 (62) 86 07/08/20 22:24 18 85/60 Mechanical Ventilator 100 07/08/20 22:15 89 29 96/58 (71) 86 07/08/20 22:15 89 29 96/58 (71) 86 07/08/20 22:00 87 31 96/51 (66) 84 07/08/20 22:00 87 31 96/51 (66) 84 07/08/20 21:45 88 32 94/62 (73) 84 07/08/20 21:30 87 32 84/50 (61) 84 07/08/20 21:30 83 92/66 07/08/20 21:24 20 99/53 Mechanical Ventilator 100 07/08/20 21:15 88 29 91/53 (66) 85 07/08/20 21:00 87 26 85/56 (66) 85 07/08/20 20:45 88 29 99/55 (70) 84 07/08/20 20:30 87 29 86/53 (64) 83 07/08/20 20:24 22 111/51 Mechanical Ventilator 100 07/08/20 20:15 88 29 86/54 (65) 83 07/08/20 20:00 100 07/08/20 20:00 130 07/08/20 20:00 88 28 95/59 (71) 85 07/08/20 20:00 Mechanical Ventilator Mechanical Ventilator Mechanical Ventilator Mechanical Ventilator Mechanical Ventilator 07/08/20 19:54 97.9 07/08/20 19:45 88 27 96/60 (72) 85 07/08/20 19:30 88 27 97/59 (72) 86 07/08/20 19:24 35 Mechanical Ventilator 100 07/08/20 19:23 35 102/61 Mechanical Ventilator 100 07/08/20 19:22 28 102/61 Mechanical Ventilator 100 07/08/20 19:16 88 26 100 07/08/20 19:00 86 27 100/56 (71) 86 07/08/20 19:00 28 Mechanical Ventilator 100 07/08/20 19:00 28 102/61 Mechanical Ventilator 100 07/08/20 18:30 89 23 136/76 (96) 81 07/08/20 18:00 88 26 125/75 (92) 85 07/08/20 18:00 25 Mechanical Ventilator 100 07/08/20 18:00 25 125/74 Mechanical Ventilator 100 07/08/20 17:30 94 28 152/82 (105) 74 07/08/20 17:00 27 Mechanical Ventilator 100 07/08/20 17:00 27 144/79 Mechanical Ventilator 100 07/08/20 17:00 97 23 139/78 (98) 76 07/08/20 16:30 101 24 141/75 (97) 77 07/08/20 16:00 100 07/08/20 16:00 Mechanical Ventilator Mechanical Ventilator Mechanical Ventilator Mechanical Ventilator Mechanical Ventilator 07/08/20 16:00 28 Mechanical Ventilator 100 07/08/20 16:00 28 132/74 Mechanical Ventilator 100 07/08/20 16:00 102 07/08/20 16:00 97.0 107 30 130/74 (92) 82 07/08/20 15:45 108 30 142/77 (98) 87 07/08/20 15:30 111 26 147/79 (101) 07/08/20 15:03 109 23 100 07/08/20 15:00 31 Mechanical Ventilator 100 07/08/20 15:00 31 114/62 Mechanical Ventilator 100 07/08/20 15:00 107 31 114/62 (79) 68 07/08/20 14:30 112 38 149/77 (101) 79 07/08/20 14:00 29 Mechanical Ventilator 100 07/08/20 14:00 29 132/74 Mechanical Ventilator 100 07/08/20 14:00 110 38 154/81 (105) 84 07/08/20 13:30 112 38 152/80 (104) 84 07/08/20 13:00 38 Mechanical Ventilator 100 07/08/20 13:00 38 154/79 Mechanical Ventilator 100 07/08/20 13:00 112 38 157/76 (103) 83 07/08/20 12:30 109 38 150/75 (100) 87 07/08/20 12:00 100.9 92 39 101/52 (68) 90 07/08/20 12:00 38 Mechanical Ventilator 100 07/08/20 12:00 38 148/79 Mechanical Ventilator 100 07/08/20 12:00 106 07/08/20 12:00 100 07/08/20 12:00 Mechanical Ventilator Mechanical Ventilator Mechanical Ventilator Mechanical Ventilator Mechanical Ventilator 07/08/20 11:43 106 36 100 07/08/20 11:30 105 34 94/55 (68) 86 07/08/20 11:00 104 33 99/53 (68) 86 07/08/20 11:00 35 Mechanical Ventilator 100 07/08/20 11:00 35 100/55 Mechanical Ventilator 100 07/08/20 10:00 101 34 98/55 (69) 86 07/08/20 10:00 34 Mechanical Ventilator 100 07/08/20 10:00 34 100/57 Mechanical Ventilator 100 07/08/20 09:30 99 30 108/56 (73) 86 07/08/20 09:03 22 Mechanical Ventilator 100 07/08/20 09:00 32 113/58 Mechanical Ventilator 100 07/08/20 09:00 32 Mechanical Ventilator 100 07/08/20 09:00 102 31 106/62 (77) 87 07/08/20 08:42 101 121/54 07/08/20 08:30 101 32 121/67 (85) 87 07/08/20 08:00 Mechanical Ventilator Mechanical Ventilator Mechanical Ventilator Mechanical Ventilator Mechanical Ventilator 07/08/20 08:00 100 07/08/20 08:00 98 07/08/20 08:00 32 116/63 Mechanical Ventilator 100 07/08/20 08:00 32 Mechanical Ventilator 100 07/08/20 08:00 100.2 99 31 126/65 (85) 90 07/08/20 07:46 100 34 100 07/08/20 07:30 97 30 114/63 (80) 92 07/08/20 07:00 98 32 121/62 (81) 94 07/08/20 07:00 31 119/66 Mechanical Ventilator 100 07/08/20 07:00 31 Mechanical Ventilator 100 07/08/20 06:25 30 Mechanical Ventilator 100 07/08/20 06:11 30 120/65 Mechanical Ventilator 100 07/08/20 06:00 97 34 127/66 (86) 87 07/08/20 05:25 24 Mechanical Ventilator 100 07/08/20 05:11 35 147/81 Mechanical Ventilator 100 07/08/20 05:00 97 34 149/81 (103) 87 07/08/20 04:25 32 Mechanical Ventilator 100 07/08/20 04:11 32 117/62 Mechanical Ventilator 100 07/08/20 04:00 98.1 93 32 116/60 (78) 93 07/08/20 04:00 100 07/08/20 04:00 87 07/08/20 04:00 Mechanical Ventilator Mechanical Ventilator Mechanical Ventilator Mechanical Ventilator Mechanical Ventilator 07/08/20 03:25 29 Mechanical Ventilator 100 07/08/20 03:11 29 97/55 Mechanical Ventilator 100 07/08/20 03:00 89 22 121/69 (86) 90 07/08/20 02:25 28 Mechanical Ventilator 100 07/08/20 02:23 85 26 100 07/08/20 02:11 28 99/66 Mechanical Ventilator 100 07/08/20 02:00 87 27 99/57 (71) 93 07/08/20 01:25 27 Mechanical Ventilator 100 07/08/20 01:11 27 101/57 Mechanical Ventilator 100 07/08/20 01:00 83 26 96/60 (72) 93 07/08/20 00:25 26 Mechanical Ventilator 100 07/08/20 00:11 26 100/58 Mechanical Ventilator 100 07/08/20 00:00 Mechanical Ventilator Mechanical Ventilator Mechanical Ventilator Mechanical Ventilator Mechanical Ventilator 07/08/20 00:00 100 07/08/20 00:00 81 07/08/20 00:00 98.3 82 33 97/58 (71) 91 07/07/20 23:25 25 Mechanical Ventilator 100 07/07/20 23:17 82 24 100 07/07/20 23:11 25 101/62 Mechanical Ventilator 100 07/07/20 23:00 82 28 100/65 (77) 92 07/07/20 22:25 27 Mechanical Ventilator 100 07/07/20 22:11 27 104/62 Mechanical Ventilator 100 07/07/20 22:00 83 29 106/62 (77) 90 07/07/20 21:25 25 Mechanical Ventilator 100 07/07/20 21:11 26 105/62 Mechanical Ventilator 100 07/07/20 21:10 27 Mechanical Ventilator 100 07/07/20 21:10 27 Mechanical Ventilator 100 07/07/20 21:00 85 27 105/62 (76) 86 07/07/20 20:02 91 156/91 07/07/20 20:00 93 07/07/20 20:00 100 07/07/20 20:00 Mechanical Ventilator Mechanical Ventilator Mechanical Ventilator Mechanical Ventilator Mechanical Ventilator 07/07/20 20:00 98.1 92 33 156/91 (112) 81 07/07/20 19:24 92 32 100 07/07/20 19:00 33 153/89 Mechanical Ventilator 100 07/07/20 19:00 98.1 92 29 152/88 (109) 83 07/07/20 18:00 93 32 144/77 (99) 84 07/07/20 18:00 32 144/77 Endotracheal Tube 100 07/07/20 17:00 92 30 136/78 (97) 86 07/07/20 17:00 30 136/78 Endotracheal Tube 100 07/07/20 16:00 Mechanical Ventilator Mechanical Ventilator 07/07/20 16:00 98.9 89 29 129/81 (97) 87 07/07/20 16:00 29 129/81 Endotracheal Tube 100 07/07/20 16:00 90 07/07/20 16:00 100 07/07/20 15:30 92 24 81/54 (63) 94 07/07/20 15:15 93 25 82/56 (65) 94 07/07/20 15:15 25 Endotracheal Tube 100 07/07/20 15:00 23 Endotracheal Tube 100 07/07/20 15:00 22 95/59 Endotracheal Tube 100 07/07/20 15:00 93 22 95/59 (71) 94 07/07/20 14:45 21 Endotracheal Tube 100 07/07/20 14:45 21 92/61 Endotracheal Tube 100 07/07/20 14:45 95 21 92/61 (71) 92 07/07/20 14:30 21 100 07/07/20 14:30 21 94/65 Endotracheal Tube 100 07/07/20 14:30 95 21 94/65 (75) 92 07/07/20 14:15 29 Endotracheal Tube 100 07/07/20 14:15 29 110/66 Endotracheal Tube 100 07/07/20 14:15 96 29 110/66 (81) 90 07/07/20 14:00 94 29 116/75 (89) 90 07/07/20 14:00 29 Endotracheal Tube 100 07/07/20 14:00 29 116/75 Endotracheal Tube 100 07/07/20 13:55 99 24 100 07/07/20 13:45 25 95/52 Endotracheal Tube 100 07/07/20 13:45 98 25 95/52 (66) 94 07/07/20 13:30 26 93/57 Endotracheal Tube 100 07/07/20 13:30 98 26 93/57 (69) 94 07/07/20 13:15 99 24 98/60 (73) 93 07/07/20 13:15 24 98/60 Endotracheal Tube 100 07/07/20 13:00 31 Endotracheal Tube 100 07/07/20 13:00 31 98/64 Endotracheal Tube 100 07/07/20 13:00 99 31 98/64 (75) 92 07/07/20 12:00 Mechanical Ventilator Mechanical Ventilator 07/07/20 12:00 101 07/07/20 12:00 27 Endotracheal Tube 100 07/07/20 12:00 27 105/64 Endotracheal Tube 100 07/07/20 12:00 97.6 101 27 105/64 (78) 89 07/07/20 12:00 100 07/07/20 11:00 24 Endotracheal Tube 100 07/07/20 11:00 24 99/68 Endotracheal Tube 100 07/07/20 11:00 103 24 99/68 (78) 90 07/07/20 10:00 105 29 150/77 (101) 86 07/07/20 10:00 29 Endotracheal Tube 100 07/07/20 10:00 29 150/77 Endotracheal Tube 100 07/07/20 09:00 104 21 132/69 (90) 89 07/07/20 09:00 21 Endotracheal Tube 100 07/07/20 09:00 21 132/69 Endotracheal Tube 100 07/07/20 08:49 105 122/67 07/07/20 08:00 Mechanical Ventilator Mechanical Ventilator 07/07/20 08:00 98.6 105 26 122/67 (85) 89 07/07/20 08:00 104 07/07/20 08:00 26 Endotracheal Tube 100 07/07/20 08:00 26 122/67 Endotracheal Tube 100 07/07/20 07:50 107 34 100 07/07/20 07:00 108 25 142/70 (94) 88 07/07/20 07:00 23 Mechanical Ventilator 100 07/07/20 07:00 23 142/70 Mechanical Ventilator 100 Intake and Output 07/08/20 07/09/20 19:00 07:00 Intake Total 1649.95 ml 1044.2 ml Output Total 1200 ml 400 ml Balance 449.95 ml 644.2 ml Intake Free Water 150 ml IV Total 839.95 ml 439.2 ml Tube Feeding 660 ml 605 ml Output Urine Total 1200 ml 400 ml Labs Test 07/06/20 08:29 07/07/20 03:30 07/08/20 03:50 07/09/20 03:00 Arterial Blood pH 7.395 (7.350-7.450) Arterial Blood Partial Pressure CO2 70.1 mmHg (35.0-45.0) Arterial Blood Partial Pressure O2 44.4 mmHg (75.0-100.0) Arterial Blood HCO3 42.0 mmol/L (22.0-26.0) Arterial Blood Oxygen Saturation 78.5 % (95-100) Arterial Blood Base Excess 14.6 (-2-2) Amrit Test Positive White Blood Count 7.7 K/UL (4.8-10.8) 7.3 K/UL (4.8-10.8) 8.4 K/UL (4.8-10.8) Red Blood Count 3.01 M/UL (4.20-5.40) 2.90 M/UL (4.20-5.40) 2.90 M/UL (4.20-5.40) Hemoglobin 9.1 G/DL (12.0-16.0) 8.8 G/DL (12.0-16.0) 8.8 G/DL (12.0-16.0) Hematocrit 29.6 % (37.0-47.0) 28.1 % (37.0-47.0) 28.1 % (37.0-47.0) Mean Corpuscular Volume 98 FL (80-99) 97 FL (80-99) 97 FL (80-99) Mean Corpuscular Hemoglobin 30.1 PG (27.0-31.0) 30.2 PG (27.0-31.0) 30.3 PG (27.0-31.0) Mean Corpuscular Hemoglobin Concent 30.6 G/DL (32.0-36.0) 31.2 G/DL (32.0-36.0) 31.3 G/DL (32.0-36.0) Red Cell Distribution Width 16.0 % (11.6-14.8) 16.5 % (11.6-14.8) 16.6 % (11.6-14.8) Platelet Count 116 K/UL (150-450) 132 K/UL (150-450) 174 K/UL (150-450) Mean Platelet Volume 10.4 FL (6.5-10.1) 10.7 FL (6.5-10.1) 10.0 FL (6.5-10.1) Neutrophils (%) (Auto) 82.2 % (45.0-75.0) 83.7 % (45.0-75.0) % (45.0-75.0) Lymphocytes (%) (Auto) 7.2 % (20.0-45.0) 8.2 % (20.0-45.0) % (20.0-45.0) Monocytes (%) (Auto) 3.4 % (1.0-10.0) 3.4 % (1.0-10.0) % (1.0-10.0) Eosinophils (%) (Auto) 5.2 % (0.0-3.0) 3.9 % (0.0-3.0) % (0.0-3.0) Basophils (%) (Auto) 2.0 % (0.0-2.0) 0.8 % (0.0-2.0) % (0.0-2.0) Sodium Level 141 MMOL/L (136-145) 140 MMOL/L (136-145) 141 MMOL/L (136-145) Potassium Level 4.3 MMOL/L (3.5-5.1) 3.9 MMOL/L (3.5-5.1) 4.0 MMOL/L (3.5-5.1) Chloride Level 105 MMOL/L (98-107) 103 MMOL/L (98-107) 103 MMOL/L (98-107) Carbon Dioxide Level 38 MMOL/L (21-32) 39 MMOL/L (21-32) 38 MMOL/L (21-32) Anion Gap -2 mmol/L (5-15) -4 mmol/L (5-15) 0 mmol/L (5-15) Blood Urea Nitrogen 15 mg/dL (7-18) 18 mg/dL (7-18) 17 mg/dL (7-18) Creatinine 0.4 MG/DL (0.55-1.30) 0.4 MG/DL (0.55-1.30) 0.4 MG/DL (0.55-1.30) Estimat Glomerular Filtration Rate > 60 mL/min (>60) > 60 mL/min (>60) > 60 mL/min (>60) Glucose Level 138 MG/DL (74-106) 127 MG/DL (74-106) 125 MG/DL (74-106) Calcium Level 7.9 MG/DL (8.5-10.1) 8.0 MG/DL (8.5-10.1) 7.7 MG/DL (8.5-10.1) Phosphorus Level 3.1 MG/DL (2.5-4.9) Magnesium Level 2.2 MG/DL (1.8-2.4) Total Bilirubin 0.4 MG/DL (0.2-1.0) Aspartate Amino Transf (AST/SGOT) 54 U/L (15-37) Alanine Aminotransferase (ALT/SGPT) 45 U/L (12-78) Alkaline Phosphatase 153 U/L (46-116) C-Reactive Protein, Quantitative 13.6 mg/dL (0.00-0.90) Pro-B-Type Natriuretic Peptide 1350 pg/mL (0-125) Total Protein 5.9 G/DL (6.4-8.2) Albumin 1.0 G/DL (3.4-5.0) Globulin 4.9 g/dL Albumin/Globulin Ratio 0.2 (1.0-2.7) Height (Feet): 5 Height (Inches): 2.00 Weight (Pounds): 138 Objective Physical Exam Vitals: reviewed, abnormal - Interpreted as low by me General: GCS 15 - Sometimes slightly confused, non-toxic, mild distress Head: normocephalic, moist mucus membranes Neck: supple Respiratory: no retraction, no accessory muscle use, respiratory distress - Minimal with tachypnea, crackles Cardiovascular: regular rate, rhythm, no edema Gastrointestinal: normal inspection, non tender, soft Genitourinary: no CVA tenderness Musculoskeletal: back normal Neurologic: alert, oriented x3, grossly normal Psychiatric: mood/affect normal - sometimes confused Skin: no rash, warm/dry Jj Swann MD Jul 09, 2020 06:57
--- NOTE | 2020-07-09 08:00 | NUR ---
NURSE NOTES: Pt was assessed after change of shift report from Jodie AUSTIN. Sedated while on Fentanyl drip 60mcg/hr and Versed drip 5mg/hr with RASS score -2 light sedation. Orally intubated ETT 7.0 at 22cm/lipline with vent settings AC20, VT400, Peep 12, FIO2 100% with O2Sat 88%. Bilateral chest tubes connected to pleura-vac drainage system to wall/suction. 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 NS infusing at 50ml/hour, connected to right double lumen PICC line, patent/intact dressing. Temp 98 F/rectal while maintained on cooling blanket. OGT with Glucerna 1.2 infusing at goal rate of 55ml/hour with zero residual. Martin catheter 16F, draining dark richelle urine. Skin alterations including sacral DTI/and skin tear, covered with optifoam dressing. On pressure release mattress, off/heels. HOB at 30degrees, bed locked/in lowest position, 3 side-rails up. Will continue to monitor and follow plan of care. Addendum: 07/10/20 at 2030 by WILLIAN OLIVIER RN HAND OFF REPORT ON 07/09 WAS RECEIVED FROM NAMRATA AUSTIN
--- NOTE | 2020-07-09 10:00 | NUR ---
NURSE NOTES: AM meds were administered. Oral care was done. ETT suction, with minimal secretions/output. Tolerating OGT feeding with zero residual.
[2020-07-09] MEDS: Vitamin D 1000 units Tab GT SCH (10:12)
[2020-07-09] MEDS: Pantoprazole Inj IVP SCH ×2 (10:13→22:00)
[2020-07-09] MEDS: Carvedilol 6.25mg Tab ORAL SCH ×2 (10:14→22:00)
--- NOTE | 2020-07-09 10:16 | Cardiac Electrophysiology PN ---
Assessment/Plan Assessment/Plan 1. Respiratory failure due to COVID pneumonia. Intubated on 100% Fio2. PEEP 12 Echo showed Nl EF 2. Bilateral pneumothoraces. S/P bilateral chest tube placement with minimal drainage but large air leak Right and left chest tube been repositioned 3. Troponin elevation. Levels are low and flat could be demand ischemia vs Renal failure EKG shows sinus tachycardia at 110 beats per minute. 4. Hypernatremia with sodium of 155. Resolved 5. Hypertension on Coreg 6.25 mg b.i.d. and Lasix 6. DNR DW RN and Dr Amaro Subjective Subjective Intubated in ICU on Fentanyl and Versed drip. Chest tubes have minimal drainage( R 30cc and L 40cc) On 100% Fio2, PEEP 8 . Off pressors DNR Objective Last 24 Hour Vital Signs Date Time Temp Pulse Resp B/P (MAP) Pulse Ox O2 Delivery O2 Flow Rate FiO2 07/09/20 07:25 99.6 07/09/20 07:00 109 37 125/74 (91) 88 07/09/20 06:55 22 100 07/09/20 06:45 110 37 125/65 (85) 87 07/09/20 06:30 111 38 133/70 (91) 87 07/09/20 06:15 112 38 130/66 (87) 87 07/09/20 06:00 111 38 128/66 (86) 87 07/09/20 05:45 110 38 134/63 (86) 86 07/09/20 05:30 110 38 125/65 (85) 85 07/09/20 05:15 109 37 123/65 (84) 85 07/09/20 05:00 109 38 111/63 (79) 84 07/09/20 04:45 107 37 117/59 (78) 85 07/09/20 04:30 107 38 139/69 (92) 86 07/09/20 04:00 107 36 114/59 (77) 86 07/09/20 04:00 100 07/09/20 04:00 Mechanical Ventilator Mechanical Ventilator Mechanical Ventilator Mechanical Ventilator Mechanical Ventilator 07/09/20 04:00 77 07/09/20 03:45 107 37 115/58 (77) 86 07/09/20 03:30 104 35 92/49 (63) 87 07/09/20 03:15 104 35 133/70 (91) 83 07/09/20 03:15 104 35 133/70 (91) 83 07/09/20 03:14 104 29 100 07/09/20 03:00 103 35 110/59 (76) 82 07/09/20 02:45 103 33 103/57 (72) 82 07/09/20 02:30 101 35 101/53 (69) 83 07/09/20 02:15 102 35 112/62 (79) 83 07/09/20 02:00 101 35 101/59 (73) 82 07/09/20 01:45 101 35 103/58 (73) 82 07/09/20 01:45 101 35 103/58 (73) 82 07/09/20 01:30 99 34 106/57 (73) 82 07/09/20 01:15 101 34 104/58 (73) 81 07/09/20 01:00 99 35 117/63 (81) 80 07/09/20 00:45 98 36 116/64 (81) 80 07/09/20 00:30 99 35 105/60 (75) 78 07/09/20 00:15 97 35 117/62 (80) 79 07/09/20 00:00 Mechanical Ventilator Mechanical Ventilator Mechanical Ventilator Mechanical Ventilator Mechanical Ventilator 07/09/20 00:00 95 35 116/63 (80) 80 07/09/20 00:00 95 35 116/63 (80) 80 07/09/20 00:00 100 07/09/20 00:00 91 07/08/20 23:45 93 35 111/63 (79) 81 07/08/20 23:30 94 31 100/58 (72) 81 07/08/20 23:24 18 91/46 100 07/08/20 23:15 90 30 91/51 (64) 85 07/08/20 23:03 90 27 100 07/08/20 23:00 90 29 83/53 (63) 83 07/08/20 23:00 90 29 83/53 (63) 83 07/08/20 22:45 88 30 83/50 (61) 85 07/08/20 22:30 88 30 79/53 (62) 86 07/08/20 22:30 88 30 79/53 (62) 86 07/08/20 22:24 18 85/60 Mechanical Ventilator 100 07/08/20 22:15 89 29 96/58 (71) 86 07/08/20 22:15 89 29 96/58 (71) 86 07/08/20 22:00 87 31 96/51 (66) 84 07/08/20 22:00 87 31 96/51 (66) 84 07/08/20 21:45 88 32 94/62 (73) 84 07/08/20 21:30 87 32 84/50 (61) 84 07/08/20 21:30 83 92/66 07/08/20 21:24 20 99/53 Mechanical Ventilator 100 07/08/20 21:15 88 29 91/53 (66) 85 07/08/20 21:00 87 26 85/56 (66) 85 07/08/20 20:45 88 29 99/55 (70) 84 07/08/20 20:30 87 29 86/53 (64) 83 07/08/20 20:24 22 111/51 Mechanical Ventilator 100 07/08/20 20:15 88 29 86/54 (65) 83 07/08/20 20:00 100 07/08/20 20:00 130 07/08/20 20:00 88 28 95/59 (71) 85 07/08/20 20:00 Mechanical Ventilator Mechanical Ventilator Mechanical Ventilator Mechanical Ventilator Mechanical Ventilator 07/08/20 19:54 97.9 07/08/20 19:45 88 27 96/60 (72) 85 07/08/20 19:30 88 27 97/59 (72) 86 07/08/20 19:24 35 Mechanical Ventilator 100 07/08/20 19:23 35 102/61 Mechanical Ventilator 100 07/08/20 19:22 28 102/61 Mechanical Ventilator 100 07/08/20 19:16 88 26 100 07/08/20 19:00 86 27 100/56 (71) 86 07/08/20 19:00 28 Mechanical Ventilator 100 07/08/20 19:00 28 102/61 Mechanical Ventilator 100 07/08/20 18:30 89 23 136/76 (96) 81 07/08/20 18:00 88 26 125/75 (92) 85 07/08/20 18:00 25 Mechanical Ventilator 100 07/08/20 18:00 25 125/74 Mechanical Ventilator 100 07/08/20 17:30 94 28 152/82 (105) 74 07/08/20 17:00 27 Mechanical Ventilator 100 07/08/20 17:00 27 144/79 Mechanical Ventilator 100 07/08/20 17:00 97 23 139/78 (98) 76 07/08/20 16:30 101 24 141/75 (97) 77 07/08/20 16:00 100 07/08/20 16:00 Mechanical Ventilator Mechanical Ventilator Mechanical Ventilator Mechanical Ventilator Mechanical Ventilator 07/08/20 16:00 28 Mechanical Ventilator 100 07/08/20 16:00 28 132/74 Mechanical Ventilator 100 07/08/20 16:00 102 07/08/20 16:00 97.0 107 30 130/74 (92) 82 07/08/20 15:45 108 30 142/77 (98) 87 07/08/20 15:30 111 26 147/79 (101) 07/08/20 15:03 109 23 100 07/08/20 15:00 31 Mechanical Ventilator 100 07/08/20 15:00 31 114/62 Mechanical Ventilator 100 07/08/20 15:00 107 31 114/62 (79) 68 07/08/20 14:30 112 38 149/77 (101) 79 07/08/20 14:00 29 Mechanical Ventilator 100 07/08/20 14:00 29 132/74 Mechanical Ventilator 100 07/08/20 14:00 110 38 154/81 (105) 84 07/08/20 13:30 112 38 152/80 (104) 84 07/08/20 13:00 38 Mechanical Ventilator 100 07/08/20 13:00 38 154/79 Mechanical Ventilator 100 07/08/20 13:00 112 38 157/76 (103) 83 07/08/20 12:30 109 38 150/75 (100) 87 07/08/20 12:00 100.9 92 39 101/52 (68) 90 07/08/20 12:00 38 Mechanical Ventilator 100 07/08/20 12:00 38 148/79 Mechanical Ventilator 100 07/08/20 12:00 106 07/08/20 12:00 100 07/08/20 12:00 Mechanical Ventilator Mechanical Ventilator Mechanical Ventilator Mechanical Ventilator Mechanical Ventilator 07/08/20 11:43 106 36 100 07/08/20 11:30 105 34 94/55 (68) 86 07/08/20 11:00 104 33 99/53 (68) 86 07/08/20 11:00 35 Mechanical Ventilator 100 07/08/20 11:00 35 100/55 Mechanical Ventilator 100 Intake and Output 07/08/20 07/09/20 19:00 07:00 Intake Total 1649.95 ml 1153.2 ml Output Total 1200 ml 450 ml Balance 449.95 ml 703.2 ml Intake Free Water 150 ml IV Total 839.95 ml 493.2 ml Tube Feeding 660 ml 660 ml Output Urine Total 1200 ml 450 ml Laboratory Tests Test 07/09/20 03:00 07/09/20 05:38 White Blood Count 8.4 K/UL (4.8-10.8) Red Blood Count 2.90 M/UL (4.20-5.40) L Hemoglobin 8.8 G/DL (12.0-16.0) L Hematocrit 28.1 % (37.0-47.0) L Mean Corpuscular Volume 97 FL (80-99) Mean Corpuscular Hemoglobin 30.3 PG (27.0-31.0) Mean Corpuscular Hemoglobin Concent 31.3 G/DL (32.0-36.0) L Red Cell Distribution Width 16.6 % (11.6-14.8) H Platelet Count 174 K/UL (150-450) Mean Platelet Volume 10.0 FL (6.5-10.1) Neutrophils (%) (Auto) % (45.0-75.0) Lymphocytes (%) (Auto) % (20.0-45.0) Monocytes (%) (Auto) % (1.0-10.0) Eosinophils (%) (Auto) % (0.0-3.0) Basophils (%) (Auto) % (0.0-2.0) Neutrophils % (Manual) Pending Lymphocytes % (Manual) Pending Platelet Estimate Pending Platelet Morphology Pending Sodium Level 141 MMOL/L (136-145) Potassium Level 4.0 MMOL/L (3.5-5.1) Chloride Level 103 MMOL/L (98-107) Carbon Dioxide Level 38 MMOL/L (21-32) H Anion Gap 0 mmol/L (5-15) L Blood Urea Nitrogen 17 mg/dL (7-18) Creatinine 0.4 MG/DL (0.55-1.30) L Estimat Glomerular Filtration Rate > 60 mL/min (>60) Glucose Level 125 MG/DL (74-106) H Calcium Level 7.7 MG/DL (8.5-10.1) L Phosphorus Level 3.1 MG/DL (2.5-4.9) Magnesium Level 2.2 MG/DL (1.8-2.4) Total Bilirubin 0.4 MG/DL (0.2-1.0) Aspartate Amino Transf (AST/SGOT) 54 U/L (15-37) H Alanine Aminotransferase (ALT/SGPT) 45 U/L (12-78) Alkaline Phosphatase 153 U/L (46-116) H C-Reactive Protein, Quantitative 13.6 mg/dL (0.00-0.90) H Pro-B-Type Natriuretic Peptide 1350 pg/mL (0-125) H Total Protein 5.9 G/DL (6.4-8.2) L Albumin 1.0 G/DL (3.4-5.0) L Globulin 4.9 g/dL Albumin/Globulin Ratio 0.2 (1.0-2.7) L POC Whole Blood Glucose 160 MG/DL (74-106) H Objective HEAD AND NECK: No JVD. Orally intubated LUNGS: Coarse rhonchi bilaterally. Bilateral chest tubes in. CARDIOVASCULAR: Regular S1 and S2 and no murmur ABDOMEN: Soft. EXTREMITIES: No pitting edema. Maxwell Carreon MD Jul 09, 2020 10:15
--- NOTE | 2020-07-09 10:40 | Pulmonology Progress Note ---
Subjective ROS Limited/Unobtainable: Yes Interval Events: Remains intubated; bilateral chest tubes in place Constitutional: Denies: fever HEENT: Repors: no symptoms Respiratory: Reports: shortness of breath Cardiovascular: Reports: no symptoms Gastrointestinal/Abdominal: Reports: no symptoms Allergies: Coded Allergies: No Known Allergies (Unverified , 06/17/20) All Systems: reviewed and negative except above Objective Last 24 Hour Vital Signs Date Time Temp Pulse Resp B/P (MAP) Pulse Ox O2 Delivery O2 Flow Rate FiO2 07/09/20 10:14 109 148/74 07/09/20 07:25 99.6 07/09/20 07:00 109 37 125/74 (91) 88 07/09/20 06:55 22 100 07/09/20 06:45 110 37 125/65 (85) 87 07/09/20 06:30 111 38 133/70 (91) 87 07/09/20 06:15 112 38 130/66 (87) 87 07/09/20 06:00 111 38 128/66 (86) 87 07/09/20 05:45 110 38 134/63 (86) 86 07/09/20 05:30 110 38 125/65 (85) 85 07/09/20 05:15 109 37 123/65 (84) 85 07/09/20 05:00 109 38 111/63 (79) 84 07/09/20 04:45 107 37 117/59 (78) 85 07/09/20 04:30 107 38 139/69 (92) 86 07/09/20 04:00 107 36 114/59 (77) 86 07/09/20 04:00 100 07/09/20 04:00 Mechanical Ventilator Mechanical Ventilator Mechanical Ventilator Mechanical Ventilator Mechanical Ventilator 07/09/20 04:00 77 07/09/20 03:45 107 37 115/58 (77) 86 07/09/20 03:30 104 35 92/49 (63) 87 07/09/20 03:15 104 35 133/70 (91) 83 07/09/20 03:15 104 35 133/70 (91) 83 07/09/20 03:14 104 29 100 07/09/20 03:00 103 35 110/59 (76) 82 07/09/20 02:45 103 33 103/57 (72) 82 07/09/20 02:30 101 35 101/53 (69) 83 07/09/20 02:15 102 35 112/62 (79) 83 07/09/20 02:00 101 35 101/59 (73) 82 07/09/20 01:45 101 35 103/58 (73) 82 07/09/20 01:45 101 35 103/58 (73) 82 07/09/20 01:30 99 34 106/57 (73) 82 07/09/20 01:15 101 34 104/58 (73) 81 07/09/20 01:00 99 35 117/63 (81) 80 07/09/20 00:45 98 36 116/64 (81) 80 07/09/20 00:30 99 35 105/60 (75) 78 07/09/20 00:15 97 35 117/62 (80) 79 07/09/20 00:00 Mechanical Ventilator Mechanical Ventilator Mechanical Ventilator Mechanical Ventilator Mechanical Ventilator 07/09/20 00:00 95 35 116/63 (80) 80 07/09/20 00:00 95 35 116/63 (80) 80 07/09/20 00:00 100 07/09/20 00:00 91 07/08/20 23:45 93 35 111/63 (79) 81 07/08/20 23:30 94 31 100/58 (72) 81 07/08/20 23:24 18 91/46 100 07/08/20 23:15 90 30 91/51 (64) 85 07/08/20 23:03 90 27 100 07/08/20 23:00 90 29 83/53 (63) 83 07/08/20 23:00 90 29 83/53 (63) 83 07/08/20 22:45 88 30 83/50 (61) 85 07/08/20 22:30 88 30 79/53 (62) 86 07/08/20 22:30 88 30 79/53 (62) 86 07/08/20 22:24 18 85/60 Mechanical Ventilator 100 07/08/20 22:15 89 29 96/58 (71) 86 07/08/20 22:15 89 29 96/58 (71) 86 07/08/20 22:00 87 31 96/51 (66) 84 07/08/20 22:00 87 31 96/51 (66) 84 07/08/20 21:45 88 32 94/62 (73) 84 07/08/20 21:30 87 32 84/50 (61) 84 07/08/20 21:30 83 92/66 07/08/20 21:24 20 99/53 Mechanical Ventilator 100 07/08/20 21:15 88 29 91/53 (66) 85 07/08/20 21:00 87 26 85/56 (66) 85 07/08/20 20:45 88 29 99/55 (70) 84 07/08/20 20:30 87 29 86/53 (64) 83 07/08/20 20:24 22 111/51 Mechanical Ventilator 100 07/08/20 20:15 88 29 86/54 (65) 83 07/08/20 20:00 100 07/08/20 20:00 130 07/08/20 20:00 88 28 95/59 (71) 85 07/08/20 20:00 Mechanical Ventilator Mechanical Ventilator Mechanical Ventilator Mechanical Ventilator Mechanical Ventilator 07/08/20 19:54 97.9 07/08/20 19:45 88 27 96/60 (72) 85 07/08/20 19:30 88 27 97/59 (72) 86 07/08/20 19:24 35 Mechanical Ventilator 100 07/08/20 19:23 35 102/61 Mechanical Ventilator 100 07/08/20 19:22 28 102/61 Mechanical Ventilator 100 07/08/20 19:16 88 26 100 07/08/20 19:00 86 27 100/56 (71) 86 07/08/20 19:00 28 Mechanical Ventilator 100 07/08/20 19:00 28 102/61 Mechanical Ventilator 100 07/08/20 18:30 89 23 136/76 (96) 81 07/08/20 18:00 88 26 125/75 (92) 85 07/08/20 18:00 25 Mechanical Ventilator 100 07/08/20 18:00 25 125/74 Mechanical Ventilator 100 07/08/20 17:30 94 28 152/82 (105) 74 07/08/20 17:00 27 Mechanical Ventilator 100 07/08/20 17:00 27 144/79 Mechanical Ventilator 100 07/08/20 17:00 97 23 139/78 (98) 76 07/08/20 16:30 101 24 141/75 (97) 77 07/08/20 16:00 100 07/08/20 16:00 Mechanical Ventilator Mechanical Ventilator Mechanical Ventilator Mechanical Ventilator Mechanical Ventilator 07/08/20 16:00 28 Mechanical Ventilator 100 07/08/20 16:00 28 132/74 Mechanical Ventilator 100 07/08/20 16:00 102 07/08/20 16:00 97.0 107 30 130/74 (92) 82 07/08/20 15:45 108 30 142/77 (98) 87 07/08/20 15:30 111 26 147/79 (101) 07/08/20 15:03 109 23 100 07/08/20 15:00 31 Mechanical Ventilator 100 07/08/20 15:00 31 114/62 Mechanical Ventilator 100 07/08/20 15:00 107 31 114/62 (79) 68 07/08/20 14:30 112 38 149/77 (101) 79 07/08/20 14:00 29 Mechanical Ventilator 100 07/08/20 14:00 29 132/74 Mechanical Ventilator 100 07/08/20 14:00 110 38 154/81 (105) 84 07/08/20 13:30 112 38 152/80 (104) 84 07/08/20 13:00 38 Mechanical Ventilator 100 07/08/20 13:00 38 154/79 Mechanical Ventilator 100 07/08/20 13:00 112 38 157/76 (103) 83 07/08/20 12:30 109 38 150/75 (100) 87 07/08/20 12:00 100.9 92 39 101/52 (68) 90 07/08/20 12:00 38 Mechanical Ventilator 100 07/08/20 12:00 38 148/79 Mechanical Ventilator 100 07/08/20 12:00 106 07/08/20 12:00 100 07/08/20 12:00 Mechanical Ventilator Mechanical Ventilator Mechanical Ventilator Mechanical Ventilator Mechanical Ventilator 07/08/20 11:43 106 36 100 07/08/20 11:30 105 34 94/55 (68) 86 07/08/20 11:00 104 33 99/53 (68) 86 07/08/20 11:00 35 Mechanical Ventilator 100 07/08/20 11:00 35 100/55 Mechanical Ventilator 100 Intake and Output 07/08/20 07/09/20 19:00 07:00 Intake Total 1649.95 ml 1153.2 ml Output Total 1200 ml 450 ml Balance 449.95 ml 703.2 ml Intake Free Water 150 ml IV Total 839.95 ml 493.2 ml Tube Feeding 660 ml 660 ml Output Urine Total 1200 ml 450 ml General Appearance: no acute distress HEENT: atraumatic Respiratory: crackles/rales Cardiovascular: normal rate Abdomen: soft, non tender Laboratory Tests 07/09/20 03:00: White Blood Count 8.4, Red Blood Count 2.90L, Hemoglobin 8.8L, Hematocrit 28.1L, Mean Corpuscular Volume 97, Mean Corpuscular Hemoglobin 30.3, Mean Corpuscular Hemoglobin Concent 31.3L, Red Cell Distribution Width 16.6H, Platelet Count 174, Mean Platelet Volume 10.0, Neutrophils (%) (Auto) , Lymphocytes (%) (Auto) , Monocytes (%) (Auto) , Eosinophils (%) (Auto) , Basophils (%) (Auto) , Differential Total Cells Counted 100, Neutrophils % (Manual) 87H, Lymphocytes % (Manual) 5L, Monocytes % (Manual) 6, Eosinophils % (Manual) 1, Basophils % (Manual) 1, Band Neutrophils 0, Nucleated Red Blood Cells 2, Platelet Estimate Adequate, Platelet Morphology Normal, Polychromasia 1+, Hypochromasia 2+, Anisocytosis 1+, Microcytosis Occasional, Macrocytosis 1+, Sodium Level 141, Potassium Level 4.0, Chloride Level 103, Carbon Dioxide Level 38H, Anion Gap 0L, Blood Urea Nitrogen 17, Creatinine 0.4L, Estimat Glomerular Filtration Rate > 60, Glucose Level 125H, Calcium Level 7.7L, Phosphorus Level 3.1, Magnesium Level 2.2, Total Bilirubin 0.4, Aspartate Amino Transf (AST/SGOT) 54H, Alanine Aminotransferase (ALT/SGPT) 45, Alkaline Phosphatase 153H, C-Reactive Protein, Quantitative 13.6H, Pro-B-Type Natriuretic Peptide 1350H, Total Protein 5.9L, Albumin 1.0L, Globulin 4.9, Albumin/Globulin Ratio 0.2L 07/09/20 05:38: POC Whole Blood Glucose 160H Current Medications Medications (Trade) Dose Ordered Sig/Maya Route PRN Reason Start Time Stop Time Status Last Admin Dose Admin Acetaminophen (Tylenol) 500 mg Q4H PRN ORAL Mild Pain (Pain Scale 1-3) 06/18/20 00:15 07/18/20 00:14 06/24/20 17:51 Acetaminophen (Tylenol) 500 mg Q4H PRN ORAL Temp >100.5 06/18/20 00:15 07/18/20 00:14 06/29/20 20:01 Carvedilol (Coreg) 6.25 mg EVERY 12 HOURS ORAL 06/22/20 21:00 07/22/20 20:59 07/09/20 10:14 Chlorhexidine Gluconate (Sissy-Hex 2%) 1 applic DAILY@2000 TOPIC 06/28/20 20:00 09/26/20 19:59 07/08/20 19:50 Dextrose (Dextrose 50%) 25 ml Q30M PRN IV Hypoglycemia 06/18/20 14:15 09/16/20 14:14 Dextrose (Dextrose 50%) 50 ml Q30M PRN IV Hypoglycemia 06/18/20 14:15 09/16/20 14:14 Docusate Sodium (Colace) 100 mg EVERY 8 HOURS NG 07/02/20 14:00 07/28/20 12:59 07/09/20 05:19 Fentanyl Citrate 250 ml @ 1 mls/hr Q24H IV 07/07/20 19:15 07/09/20 19:14 07/08/20 19:23 Furosemide (Lasix) 40 mg DAILY IV 06/28/20 17:45 07/28/20 16:59 07/09/20 10:13 Haloperidol Lactate (Haldol) 10 mg Q6H PRN IM Agitation 06/23/20 11:30 08/07/20 11:29 06/23/20 11:34 Insulin Aspart (NovoLOG) while NPO Q6HR SUBQ 06/18/20 18:00 09/16/20 17:59 07/09/20 05:51 Midazolam HCl 100 ml @ 0 mls/hr Q24H PRN IV SEDATION 07/08/20 07:45 07/10/20 07:44 07/09/20 06:55 Pantoprazole (Protonix) 40 mg EVERY 12 HOURS IVP 06/18/20 21:00 07/18/20 20:59 07/09/20 10:13 Sodium Chloride 1,000 ml @ 50 mls/hr Q20H IV 06/26/20 08:00 07/26/20 07:59 07/08/20 19:50 Vitamin D (Vitamin D) 2,000 unit DAILY GT 06/29/20 10:30 07/29/20 10:29 07/09/20 10:12 Assessment/Plan Assessment/Plan 1. COVID-19 pneumonia -Intubated, on 100% FiO2. PEEP 5-10. -SaO2 86% -On Decadron, s/p remdesivir 2. Leukocytosis -Resolved 3. Elevated D-dimer -On Lovenox 40 subcu QD for DVT prophylaxis 4. Renal insufficiency -Improved 5. Anemia of chronic disease -Hematology oncology following 6. Sepsis -Status post antibiotics, fluid resuscitation 7. Pneumothorax 06/22/20 - b/l subcutaneous emphysema, pneumomediastinum, probable small left pneumothorax & ? trace right pneumothorax. -[place] in place - placed CT by surgery (bilateral) - Will attempt wean when FiO2 decreases - CXR shows R PTX; will advise CT surgery to adjust R CT Discussed with son Now DNAR SaO2 87% on 100% FiO2 and PEEP 12 Grave prognosis Family not ready for withdrawl of care Discussed with son (jim) in great detail Charlie Sewell MD Jul 09, 2020 10:40
--- NOTE | 2020-07-09 11:03 | Surgery Progress Note ---
Surgery Progress Note Subjective Procedure Performed 1. right chest tube insertion 2. left chest tube insertion Additional Comments No acute events. Otherwise unchanged. Both chest tubes functional and checked. Pending x-ray. Objective Last 24 Hour Vital Signs Date Time Temp Pulse Resp B/P (MAP) Pulse Ox O2 Delivery O2 Flow Rate FiO2 07/09/20 10:14 109 148/74 07/09/20 07:25 99.6 07/09/20 07:14 109 29 100 07/09/20 07:00 109 37 125/74 (91) 88 07/09/20 06:55 22 100 07/09/20 06:45 110 37 125/65 (85) 87 07/09/20 06:30 111 38 133/70 (91) 87 07/09/20 06:15 112 38 130/66 (87) 87 07/09/20 06:00 111 38 128/66 (86) 87 07/09/20 05:45 110 38 134/63 (86) 86 07/09/20 05:30 110 38 125/65 (85) 85 07/09/20 05:15 109 37 123/65 (84) 85 07/09/20 05:00 109 38 111/63 (79) 84 07/09/20 04:45 107 37 117/59 (78) 85 07/09/20 04:30 107 38 139/69 (92) 86 07/09/20 04:00 107 36 114/59 (77) 86 07/09/20 04:00 100 07/09/20 04:00 Mechanical Ventilator Mechanical Ventilator Mechanical Ventilator Mechanical Ventilator Mechanical Ventilator 07/09/20 04:00 77 07/09/20 03:45 107 37 115/58 (77) 86 07/09/20 03:30 104 35 92/49 (63) 87 07/09/20 03:15 104 35 133/70 (91) 83 07/09/20 03:15 104 35 133/70 (91) 83 07/09/20 03:14 104 29 100 07/09/20 03:00 103 35 110/59 (76) 82 07/09/20 02:45 103 33 103/57 (72) 82 07/09/20 02:30 101 35 101/53 (69) 83 07/09/20 02:15 102 35 112/62 (79) 83 07/09/20 02:00 101 35 101/59 (73) 82 07/09/20 01:45 101 35 103/58 (73) 82 07/09/20 01:45 101 35 103/58 (73) 82 07/09/20 01:30 99 34 106/57 (73) 82 07/09/20 01:15 101 34 104/58 (73) 81 07/09/20 01:00 99 35 117/63 (81) 80 07/09/20 00:45 98 36 116/64 (81) 80 07/09/20 00:30 99 35 105/60 (75) 78 07/09/20 00:15 97 35 117/62 (80) 79 07/09/20 00:00 Mechanical Ventilator Mechanical Ventilator Mechanical Ventilator Mechanical Ventilator Mechanical Ventilator 07/09/20 00:00 95 35 116/63 (80) 80 07/09/20 00:00 95 35 116/63 (80) 80 07/09/20 00:00 100 07/09/20 00:00 91 07/08/20 23:45 93 35 111/63 (79) 81 07/08/20 23:30 94 31 100/58 (72) 81 07/08/20 23:24 18 91/46 100 07/08/20 23:15 90 30 91/51 (64) 85 07/08/20 23:03 90 27 100 07/08/20 23:00 90 29 83/53 (63) 83 07/08/20 23:00 90 29 83/53 (63) 83 07/08/20 22:45 88 30 83/50 (61) 85 07/08/20 22:30 88 30 79/53 (62) 86 07/08/20 22:30 88 30 79/53 (62) 86 07/08/20 22:24 18 85/60 Mechanical Ventilator 100 07/08/20 22:15 89 29 96/58 (71) 86 07/08/20 22:15 89 29 96/58 (71) 86 07/08/20 22:00 87 31 96/51 (66) 84 07/08/20 22:00 87 31 96/51 (66) 84 07/08/20 21:45 88 32 94/62 (73) 84 07/08/20 21:30 87 32 84/50 (61) 84 07/08/20 21:30 83 92/66 2/17/21 21:24 20 99/53 Mechanical Ventilator 100 07/08/20 21:15 88 29 91/53 (66) 85 07/08/20 21:00 87 26 85/56 (66) 85 07/08/20 20:45 88 29 99/55 (70) 84 07/08/20 20:30 87 29 86/53 (64) 83 07/08/20 20:24 22 111/51 Mechanical Ventilator 100 07/08/20 20:15 88 29 86/54 (65) 83 07/08/20 20:00 100 07/08/20 20:00 130 07/08/20 20:00 88 28 95/59 (71) 85 07/08/20 20:00 Mechanical Ventilator Mechanical Ventilator Mechanical Ventilator Mechanical Ventilator Mechanical Ventilator 07/08/20 19:54 97.9 07/08/20 19:45 88 27 96/60 (72) 85 07/08/20 19:30 88 27 97/59 (72) 86 07/08/20 19:24 35 Mechanical Ventilator 100 07/08/20 19:23 35 102/61 Mechanical Ventilator 100 07/08/20 19:22 28 102/61 Mechanical Ventilator 100 07/08/20 19:16 88 26 100 07/08/20 19:00 86 27 100/56 (71) 86 07/08/20 19:00 28 Mechanical Ventilator 100 07/08/20 19:00 28 102/61 Mechanical Ventilator 100 07/08/20 18:30 89 23 136/76 (96) 81 07/08/20 18:00 88 26 125/75 (92) 85 07/08/20 18:00 25 Mechanical Ventilator 100 07/08/20 18:00 25 125/74 Mechanical Ventilator 100 07/08/20 17:30 94 28 152/82 (105) 74 07/08/20 17:00 27 Mechanical Ventilator 100 07/08/20 17:00 27 144/79 Mechanical Ventilator 100 07/08/20 17:00 97 23 139/78 (98) 76 07/08/20 16:30 101 24 141/75 (97) 77 07/08/20 16:00 100 07/08/20 16:00 Mechanical Ventilator Mechanical Ventilator Mechanical Ventilator Mechanical Ventilator Mechanical Ventilator 07/08/20 16:00 28 Mechanical Ventilator 100 07/08/20 16:00 28 132/74 Mechanical Ventilator 100 07/08/20 16:00 102 07/08/20 16:00 97.0 107 30 130/74 (92) 82 07/08/20 15:45 108 30 142/77 (98) 87 07/08/20 15:30 111 26 147/79 (101) 07/08/20 15:03 109 23 100 07/08/20 15:00 31 Mechanical Ventilator 100 07/08/20 15:00 31 114/62 Mechanical Ventilator 100 07/08/20 15:00 107 31 114/62 (79) 68 07/08/20 14:30 112 38 149/77 (101) 79 07/08/20 14:00 29 Mechanical Ventilator 100 07/08/20 14:00 29 132/74 Mechanical Ventilator 100 07/08/20 14:00 110 38 154/81 (105) 84 07/08/20 13:30 112 38 152/80 (104) 84 07/08/20 13:00 38 Mechanical Ventilator 100 07/08/20 13:00 38 154/79 Mechanical Ventilator 100 07/08/20 13:00 112 38 157/76 (103) 83 07/08/20 12:30 109 38 150/75 (100) 87 07/08/20 12:00 100.9 92 39 101/52 (68) 90 07/08/20 12:00 38 Mechanical Ventilator 100 07/08/20 12:00 38 148/79 Mechanical Ventilator 100 07/08/20 12:00 106 07/08/20 12:00 100 07/08/20 12:00 Mechanical Ventilator Mechanical Ventilator Mechanical Ventilator Mechanical Ventilator Mechanical Ventilator 07/08/20 11:43 106 36 100 07/08/20 11:30 105 34 94/55 (68) 86 I&O Intake and Output 07/08/20 07/09/20 19:00 07:00 Intake Total 1649.95 ml 1153.2 ml Output Total 1200 ml 450 ml Balance 449.95 ml 703.2 ml Intake Free Water 150 ml IV Total 839.95 ml 493.2 ml Tube Feeding 660 ml 660 ml Output Urine Total 1200 ml 450 ml Dressing: saturated Cardiovascular: RSR Respiratory: decreased breath sounds Abdomen: soft, non-tender, present bowel sounds, non-distended, decreased bowel sounds Extremities: edema, no tenderness, no cyanosis Laboratory Tests Test 07/09/20 03:00 07/09/20 05:38 White Blood Count 8.4 K/UL (4.8-10.8) Red Blood Count 2.90 M/UL (4.20-5.40) L Hemoglobin 8.8 G/DL (12.0-16.0) L Hematocrit 28.1 % (37.0-47.0) L Mean Corpuscular Volume 97 FL (80-99) Mean Corpuscular Hemoglobin 30.3 PG (27.0-31.0) Mean Corpuscular Hemoglobin Concent 31.3 G/DL (32.0-36.0) L Red Cell Distribution Width 16.6 % (11.6-14.8) H Platelet Count 174 K/UL (150-450) Mean Platelet Volume 10.0 FL (6.5-10.1) Neutrophils (%) (Auto) % (45.0-75.0) Lymphocytes (%) (Auto) % (20.0-45.0) Monocytes (%) (Auto) % (1.0-10.0) Eosinophils (%) (Auto) % (0.0-3.0) Basophils (%) (Auto) % (0.0-2.0) Differential Total Cells Counted 100 Neutrophils % (Manual) 87 % (45-75) H Lymphocytes % (Manual) 5 % (20-45) L Monocytes % (Manual) 6 % (1-10) Eosinophils % (Manual) 1 % (0-3) Basophils % (Manual) 1 % (0-2) Band Neutrophils 0 % (0-8) Nucleated Red Blood Cells 2 /100 WBC Platelet Estimate Adequate Platelet Morphology Normal Polychromasia 1+ Hypochromasia 2+ Anisocytosis 1+ Microcytosis Occasional Macrocytosis 1+ Sodium Level 141 MMOL/L (136-145) Potassium Level 4.0 MMOL/L (3.5-5.1) Chloride Level 103 MMOL/L (98-107) Carbon Dioxide Level 38 MMOL/L (21-32) H Anion Gap 0 mmol/L (5-15) L Blood Urea Nitrogen 17 mg/dL (7-18) Creatinine 0.4 MG/DL (0.55-1.30) L Estimat Glomerular Filtration Rate > 60 mL/min (>60) Glucose Level 125 MG/DL (74-106) H Calcium Level 7.7 MG/DL (8.5-10.1) L Phosphorus Level 3.1 MG/DL (2.5-4.9) Magnesium Level 2.2 MG/DL (1.8-2.4) Total Bilirubin 0.4 MG/DL (0.2-1.0) Aspartate Amino Transf (AST/SGOT) 54 U/L (15-37) H Alanine Aminotransferase (ALT/SGPT) 45 U/L (12-78) Alkaline Phosphatase 153 U/L (46-116) H C-Reactive Protein, Quantitative 13.6 mg/dL (0.00-0.90) H Pro-B-Type Natriuretic Peptide 1350 pg/mL (0-125) H Total Protein 5.9 G/DL (6.4-8.2) L Albumin 1.0 G/DL (3.4-5.0) L Globulin 4.9 g/dL Albumin/Globulin Ratio 0.2 (1.0-2.7) L POC Whole Blood Glucose 160 MG/DL (74-106) H Plan Problems: (1) Renal insufficiency (2) Elevated d-dimer (3) Dehydration (4) LEONARDO (acute kidney injury) (5) DMII (diabetes mellitus, type 2) (6) Hypoxia (7) Pneumonia due to COVID-19 virus (8) PNA (pneumonia) (9) Pneumothorax Assessment & Plan: Bilateral pneumothorax status post bilateral chest tubes. Still on significant vent support. leak performed. Continue weaning vent. Continue with chest tubes. Will monitor and manage chest tubes accordingly. Thank you for let me to participate in patient's care Continue bilateral chest tubes on suction the airleak is worse her peak pressures are high prognosis overall is guarded. Imaging reviewed Bilateral air leaks noted high pressures continue chest tube suction recurrent right ptx tube fixed imaging pleuravac fixed tubes functional Unfortunately patient continues to be very ill on vent support with bilateral chest tubes in place. She continues to reaccumulate pneumothorax as this type functional tubes. Occasionally tubes or Pleur-evac needs to be changed and immediately shows improvement but then again declines. Prognosis is very guarded. We will continue to follow thank you for let me participate in patient's care Elpidio Frazier Jul 09, 2020 11:03
--- NOTE | 2020-07-09 11:23 | Nephrology Progress Note ---
Assessment/Plan Problem List: (1) LEONARDO (acute kidney injury) (2) Dehydration (3) DMII (diabetes mellitus, type 2) (4) Pneumonia due to COVID-19 virus (5) Hypoxia Assessment 70-year-old female presents with COVID-19 pneumonia and hypoxia On admission has BUN of 77 and creatinine of 1.6. Renal failure most likely prerenal and dehydration with possible underlying chronic kidney disease Patient has elevated inflammatory markers Hypoalbuminemia Electrolyte abnormalities Hyperglycemia Plan July 09: Status quo. FiO2 100%. Intubated on ventilator with bilateral chest tube. Labs reviewed. Renal parameters stable however overall status and clinical condition remains poor. Patient DNR. July 08: DNR. Intubated on ventilator. FiO2 100%. Bilateral chest tube. Labs reviewed. Renal parameters stable. July 07: FiO2 100%. Renal parameters stable. Remains intubated with bilateral chest tube. Continue per pulmonary. July 06: Labs reviewed. Renal parameters stable. ABG suggests retaining of CO2. Patient continues to be on FiO2 100%. Has bilateral chest tubes. Remains intubated on ventilator. Continue to monitor renal parameters. July 05: No CHEM panel drawn today. Status quo. Pulmonary status unchanged. We will continue to monitor renal parameters and electrolytes. Continue per consultants. July 04: Status quo. On ventilator. Full code. Bilateral chest tube. Renal parameters stable. July 03: Patient remains full code. Intubated on ventilator. Has chest tube. Labs reviewed. Renal parameters stable. Continue per consultants. July 02: Remains intubated. Has a bilateral chest tube. He is full code. Labs reviewed. Abnormal electrolyte addressed. Continue per consultants. July 01: Remains intubated. Continues to have bilateral chest tube. Full code. Labs reviewed. Renal parameters stable. Low phosphorus addressed. Discussed with NORMAN Lyon. June 30: Full code. Intubated. Bilateral chest tube. As reviewed. Abnormal electrolytes addressed. June 29: Full code. Intubated. Bilateral chest tube. Unstable pulmonary status. ABG ordered. Electrolyte imbalance addressed. Discussed with NORMAN Montalvo. June 28: Labs reviewed. Abnormal electrolytes addressed. Patient remains full code. Continue per consultants. June 27: No chemistry panel done today. Remains full code. Medication list reviewed. Continue per consultants. Will monitor electrolytes and renal panel in a.m. June 26: Status quo. Remains full code. Labs reviewed. Main IV changed to normal saline 50 cc an hour. Continue per consultants and pulmonary. June 25: Remains intubated. Has bilateral chest tube. Full code. Labs reviewed. Abnormal electrolytes addressed. Albumin bolus given. Continue to monitor renal parameters. Poor prognosis. June 24: Patient in ICU. Intubated. Has bilateral chest tube. Labs reviewed. Renal parameters stable. Low phosphorus addressed. Continue per consultants. Full code. Poor prognosis. June 23: Patient in ICU. Intubated. Due for insertion of a chest tube. Has pneumothorax. Renal parameters are stable. Serum sodium rising. Will adjust IV fluid. Continue per consultants. Patient full code. Prognosis poor. June 22: Labs reviewed. Remains on BiPAP which is not changed to high flow oxygen due to pneumothorax found on chest x-ray. Serum sodium 155. Continues on D5W. Electrolytes within normal limits. Check 2D echocardiogram. Coreg for blood pressure and heart rate. June 21: Status quo. On BiPAP. Full code. Serum sodium 153. Continue D5W. Continue to monitor electrolytes. Continue per consultants. June 20: Patient full code. On BiPAP. Labs reviewed. Serum sodium rising. Will increase D5W to 75 cc an hour. Continue to monitor electrolytes. June 19: IV changed to D5W. Monitor blood sugar. Monitor electrolytes. Medication list reviewed. Patient is being treated for COVID-19 pneumonia. Patient is full code. Previously Pulmonary support IV antibiotics Slow hydration Avoid nephrotoxic Monitor renal parameters Per orders Subjective ROS Limited/Unobtainable: Yes Objective Objective Last 24 Hour Vital Signs Date Time Temp Pulse Resp B/P (MAP) Pulse Ox O2 Delivery O2 Flow Rate FiO2 07/09/20 11:00 103 38 156/79 (104) 84 07/09/20 10:30 104 38 159/79 (105) 87 07/09/20 10:14 109 148/74 07/09/20 10:00 108 36 148/74 (98) 87 07/09/20 09:30 107 36 149/78 (101) 86 07/09/20 09:00 107 36 144/78 (100) 87 07/09/20 08:30 107 36 136/67 (90) 89 07/09/20 08:00 Mechanical Ventilator Mechanical Ventilator Mechanical Ventilator Mechanical Ventilator Mechanical Ventilator 07/09/20 08:00 99.0 109 37 131/75 (93) 87 07/09/20 08:00 100 07/09/20 07:25 99.6 07/09/20 07:14 109 29 100 07/09/20 07:00 109 37 125/74 (91) 88 07/09/20 06:55 22 100 07/09/20 06:45 110 37 125/65 (85) 87 07/09/20 06:30 111 38 133/70 (91) 87 07/09/20 06:15 112 38 130/66 (87) 87 07/09/20 06:00 111 38 128/66 (86) 87 07/09/20 05:45 110 38 134/63 (86) 86 07/09/20 05:30 110 38 125/65 (85) 85 07/09/20 05:15 109 37 123/65 (84) 85 07/09/20 05:00 109 38 111/63 (79) 84 07/09/20 04:45 107 37 117/59 (78) 85 07/09/20 04:30 107 38 139/69 (92) 86 07/09/20 04:00 107 36 114/59 (77) 86 07/09/20 04:00 100 07/09/20 04:00 Mechanical Ventilator Mechanical Ventilator Mechanical Ventilator Mechanical Ventilator Mechanical Ventilator 07/09/20 04:00 77 07/09/20 03:45 107 37 115/58 (77) 86 07/09/20 03:30 104 35 92/49 (63) 87 07/09/20 03:15 104 35 133/70 (91) 83 07/09/20 03:15 104 35 133/70 (91) 83 07/09/20 03:14 104 29 100 07/09/20 03:00 103 35 110/59 (76) 82 07/09/20 02:45 103 33 103/57 (72) 82 07/09/20 02:30 101 35 101/53 (69) 83 07/09/20 02:15 102 35 112/62 (79) 83 07/09/20 02:00 101 35 101/59 (73) 82 07/09/20 01:45 101 35 103/58 (73) 82 07/09/20 01:45 101 35 103/58 (73) 82 07/09/20 01:30 99 34 106/57 (73) 82 07/09/20 01:15 101 34 104/58 (73) 81 07/09/20 01:00 99 35 117/63 (81) 80 07/09/20 00:45 98 36 116/64 (81) 80 07/09/20 00:30 99 35 105/60 (75) 78 07/09/20 00:15 97 35 117/62 (80) 79 07/09/20 00:00 Mechanical Ventilator Mechanical Ventilator Mechanical Ventilator Mechanical Ventilator Mechanical Ventilator 07/09/20 00:00 95 35 116/63 (80) 80 07/09/20 00:00 95 35 116/63 (80) 80 07/09/20 00:00 100 07/09/20 00:00 91 07/08/20 23:45 93 35 111/63 (79) 81 07/08/20 23:30 94 31 100/58 (72) 81 07/08/20 23:24 18 91/46 100 07/08/20 23:15 90 30 91/51 (64) 85 07/08/20 23:03 90 27 100 07/08/20 23:00 90 29 83/53 (63) 83 07/08/20 23:00 90 29 83/53 (63) 83 07/08/20 22:45 88 30 83/50 (61) 85 07/08/20 22:30 88 30 79/53 (62) 86 07/08/20 22:30 88 30 79/53 (62) 86 07/08/20 22:24 18 85/60 Mechanical Ventilator 100 07/08/20 22:15 89 29 96/58 (71) 86 07/08/20 22:15 89 29 96/58 (71) 86 07/08/20 22:00 87 31 96/51 (66) 84 07/08/20 22:00 87 31 96/51 (66) 84 07/08/20 21:45 88 32 94/62 (73) 84 07/08/20 21:30 87 32 84/50 (61) 84 07/08/20 21:30 83 92/66 07/08/20 21:24 20 99/53 Mechanical Ventilator 100 07/08/20 21:15 88 29 91/53 (66) 85 07/08/20 21:00 87 26 85/56 (66) 85 07/08/20 20:45 88 29 99/55 (70) 84 07/08/20 20:30 87 29 86/53 (64) 83 07/08/20 20:24 22 111/51 Mechanical Ventilator 100 07/08/20 20:15 88 29 86/54 (65) 83 07/08/20 20:00 100 07/08/20 20:00 130 07/08/20 20:00 88 28 95/59 (71) 85 07/08/20 20:00 Mechanical Ventilator Mechanical Ventilator Mechanical Ventilator Mechanical Ventilator Mechanical Ventilator 07/08/20 19:54 97.9 07/08/20 19:45 88 27 96/60 (72) 85 07/08/20 19:30 88 27 97/59 (72) 86 07/08/20 19:24 35 Mechanical Ventilator 100 07/08/20 19:23 35 102/61 Mechanical Ventilator 100 07/08/20 19:22 28 102/61 Mechanical Ventilator 100 07/08/20 19:16 88 26 100 07/08/20 19:00 86 27 100/56 (71) 86 07/08/20 19:00 28 Mechanical Ventilator 100 07/08/20 19:00 28 102/61 Mechanical Ventilator 100 07/08/20 18:30 89 23 136/76 (96) 81 07/08/20 18:00 88 26 125/75 (92) 85 07/08/20 18:00 25 Mechanical Ventilator 100 07/08/20 18:00 25 125/74 Mechanical Ventilator 100 07/08/20 17:30 94 28 152/82 (105) 74 07/08/20 17:00 27 Mechanical Ventilator 100 07/08/20 17:00 27 144/79 Mechanical Ventilator 100 07/08/20 17:00 97 23 139/78 (98) 76 07/08/20 16:30 101 24 141/75 (97) 77 07/08/20 16:00 100 07/08/20 16:00 Mechanical Ventilator Mechanical Ventilator Mechanical Ventilator Mechanical Ventilator Mechanical Ventilator 07/08/20 16:00 28 Mechanical Ventilator 100 07/08/20 16:00 28 132/74 Mechanical Ventilator 100 07/08/20 16:00 102 07/08/20 16:00 97.0 107 30 130/74 (92) 82 07/08/20 15:45 108 30 142/77 (98) 87 07/08/20 15:30 111 26 147/79 (101) 07/08/20 15:03 109 23 100 07/08/20 15:00 31 Mechanical Ventilator 100 07/08/20 15:00 31 114/62 Mechanical Ventilator 100 07/08/20 15:00 107 31 114/62 (79) 68 07/08/20 14:30 112 38 149/77 (101) 79 07/08/20 14:00 29 Mechanical Ventilator 100 07/08/20 14:00 29 132/74 Mechanical Ventilator 100 07/08/20 14:00 110 38 154/81 (105) 84 07/08/20 13:30 112 38 152/80 (104) 84 07/08/20 13:00 38 Mechanical Ventilator 100 07/08/20 13:00 38 154/79 Mechanical Ventilator 100 07/08/20 13:00 112 38 157/76 (103) 83 07/08/20 12:30 109 38 150/75 (100) 87 07/08/20 12:00 100.9 92 39 101/52 (68) 90 07/08/20 12:00 38 Mechanical Ventilator 100 07/08/20 12:00 38 148/79 Mechanical Ventilator 100 07/08/20 12:00 106 07/08/20 12:00 100 07/08/20 12:00 Mechanical Ventilator Mechanical Ventilator Mechanical Ventilator Mechanical Ventilator Mechanical Ventilator 07/08/20 11:43 106 36 100 07/08/20 11:30 105 34 94/55 (68) 86 Intake and Output 07/08/20 07/09/20 19:00 07:00 Intake Total 1649.95 ml 1153.2 ml Output Total 1200 ml 450 ml Balance 449.95 ml 703.2 ml Intake Free Water 150 ml IV Total 839.95 ml 493.2 ml Tube Feeding 660 ml 660 ml Output Urine Total 1200 ml 450 ml Current Medications Medications (Trade) Dose Ordered Sig/Maya Route PRN Reason Start Time Stop Time Status Last Admin Dose Admin Acetaminophen (Tylenol) 500 mg Q4H PRN ORAL Mild Pain (Pain Scale 1-3) 06/18/20 00:15 07/18/20 00:14 06/24/20 17:51 Acetaminophen (Tylenol) 500 mg Q4H PRN ORAL Temp >100.5 06/18/20 00:15 07/18/20 00:14 06/29/20 20:01 Carvedilol (Coreg) 6.25 mg EVERY 12 HOURS ORAL 06/22/20 21:00 07/22/20 20:59 07/09/20 10:14 Chlorhexidine Gluconate (Sissy-Hex 2%) 1 applic DAILY@2000 TOPIC 06/28/20 20:00 09/26/20 19:59 07/08/20 19:50 Dextrose (Dextrose 50%) 25 ml Q30M PRN IV Hypoglycemia 06/18/20 14:15 09/16/20 14:14 Dextrose (Dextrose 50%) 50 ml Q30M PRN IV Hypoglycemia 06/18/20 14:15 09/16/20 14:14 Docusate Sodium (Colace) 100 mg EVERY 8 HOURS NG 07/02/20 14:00 07/28/20 12:59 07/09/20 05:19 Fentanyl Citrate 250 ml @ 1 mls/hr Q24H IV 07/07/20 19:15 07/09/20 19:14 07/08/20 19:23 Furosemide (Lasix) 40 mg DAILY IV 06/28/20 17:45 07/28/20 16:59 07/09/20 10:13 Haloperidol Lactate (Haldol) 10 mg Q6H PRN IM Agitation 06/23/20 11:30 08/07/20 11:29 06/23/20 11:34 Insulin Aspart (NovoLOG) while NPO Q6HR SUBQ 06/18/20 18:00 09/16/20 17:59 07/09/20 05:51 Midazolam HCl 100 ml @ 0 mls/hr Q24H PRN IV SEDATION 07/08/20 07:45 07/10/20 07:44 07/09/20 06:55 Pantoprazole (Protonix) 40 mg EVERY 12 HOURS IVP 06/18/20 21:00 07/18/20 20:59 07/09/20 10:13 Sodium Chloride 1,000 ml @ 50 mls/hr Q20H IV 06/26/20 08:00 07/26/20 07:59 07/08/20 19:50 Vitamin D (Vitamin D) 2,000 unit DAILY GT 06/29/20 10:30 07/29/20 10:29 07/09/20 10:12 Laboratory Tests 07/09/20 03:00: White Blood Count 8.4, Red Blood Count 2.90L, Hemoglobin 8.8L, Hematocrit 28.1L, Mean Corpuscular Volume 97, Mean Corpuscular Hemoglobin 30.3, Mean Corpuscular Hemoglobin Concent 31.3L, Red Cell Distribution Width 16.6H, Platelet Count 174, Mean Platelet Volume 10.0, Neutrophils (%) (Auto) , Lymphocytes (%) (Auto) , Monocytes (%) (Auto) , Eosinophils (%) (Auto) , Basophils (%) (Auto) , Differential Total Cells Counted 100, Neutrophils % (Manual) 87H, Lymphocytes % (Manual) 5L, Monocytes % (Manual) 6, Eosinophils % (Manual) 1, Basophils % (Manual) 1, Band Neutrophils 0, Nucleated Red Blood Cells 2, Platelet Estimate Adequate, Platelet Morphology Normal, Polychromasia 1+, Hypochromasia 2+, Ani socytosis 1+, Microcytosis Occasional, Macrocytosis 1+, Sodium Level 141, Potassium Level 4.0, Chloride Level 103, Carbon Dioxide Level 38H, Anion Gap 0L, Blood Urea Nitrogen 17, Creatinine 0.4L, Estimat Glomerular Filtration Rate > 60, Glucose Level 125H, Calcium Level 7.7L, Phosphorus Level 3.1, Magnesium Level 2.2, Total Bilirubin 0.4, Aspartate Amino Transf (AST/SGOT) 54H, Alanine Aminotransferase (ALT/SGPT) 45, Alkaline Phosphatase 153H, C-Reactive Protein, Quantitative 13.6H, Pro-B-Type Natriuretic Peptide 1350H, Total Protein 5.9L, Al bumin 1.0L, Globulin 4.9, Albumin/Globulin Ratio 0.2L 07/09/20 05:38: POC Whole Blood Glucose 160H Height (Feet): 5 Height (Inches): 2.00 Weight (Pounds): 138 General Appearance: no apparent distress EENT: other - Intubated on ventilator Cardiovascular: tachycardia Respiratory/Chest: decreased breath sounds, other - Bilateral chest tube Abdomen: distended Raza De Jesus MD Jul 09, 2020 11:22
--- NOTE | 2020-07-09 12:00 | NUR ---
NURSE NOTES: Maintained on Fentanyl and Versed drips continuing same rate for -2 light sedation/RASS. Pt repositioned for comfort. Afebrile while on cooling blanket. VS remain stable.
--- NOTE | 2020-07-09 12:09 | Infectious Diseases Prog Note ---
Assessment/Plan Assessment/Plan A; Fever Sepsis COVID19 pneumonia Hypoxic respiratory failure Acute kidney injury, resolving Hyperglycemia, DM type 2 Bilateral pneumothorax Leukocytosis resolved Anemia P; Finished Remdesivir & Dexamethasone course Poor prognosis, DNR status Subjective ROS Limited/Unobtainable: Yes Allergies: Coded Allergies: No Known Allergies (Unverified , 06/17/20) Objective Last 24 Hour Vital Signs Date Time Temp Pulse Resp B/P (MAP) Pulse Ox O2 Delivery O2 Flow Rate FiO2 07/09/20 11:43 103 07/09/20 11:00 38 Mechanical Ventilator 100 07/09/20 11:00 38 153/81 Mechanical Ventilator 100 07/09/20 11:00 103 38 156/79 (104) 84 07/09/20 10:30 104 38 159/79 (105) 87 07/09/20 10:14 109 148/74 07/09/20 10:00 108 36 148/74 (98) 87 07/09/20 10:00 37 Mechanical Ventilator 100 07/09/20 10:00 37 150/83 Mechanical Ventilator 100 07/09/20 09:30 107 36 149/78 (101) 86 07/09/20 09:00 107 36 144/78 (100) 87 07/09/20 09:00 36 Mechanical Ventilator 100 07/09/20 09:00 36 152/74 Mechanical Ventilator 100 07/09/20 08:30 107 36 136/67 (90) 89 07/09/20 08:00 37 Mechanical Ventilator 100 07/09/20 08:00 37 137/74 100 07/09/20 08:00 Mechanical Ventilator Mechanical Ventilator Mechanical Ventilator Mechanical Ventilator Mechanical Ventilator 07/09/20 08:00 99.0 109 37 131/75 (93) 87 07/09/20 08:00 100 07/09/20 08:00 108 07/09/20 07:25 99.6 07/09/20 07:14 109 29 100 07/09/20 07:00 109 37 125/74 (91) 88 07/09/20 06:55 22 100 07/09/20 06:45 110 37 125/65 (85) 87 07/09/20 06:30 111 38 133/70 (91) 87 07/09/20 06:15 112 38 130/66 (87) 87 07/09/20 06:00 111 38 128/66 (86) 87 07/09/20 05:45 110 38 134/63 (86) 86 07/09/20 05:30 110 38 125/65 (85) 85 07/09/20 05:15 109 37 123/65 (84) 85 07/09/20 05:00 109 38 111/63 (79) 84 07/09/20 04:45 107 37 117/59 (78) 85 07/09/20 04:30 107 38 139/69 (92) 86 07/09/20 04:00 107 36 114/59 (77) 86 07/09/20 04:00 100 07/09/20 04:00 Mechanical Ventilator Mechanical Ventilator Mechanical Ventilator Mechanical Ventilator Mechanical Ventilator 07/09/20 04:00 77 07/09/20 03:45 107 37 115/58 (77) 86 07/09/20 03:30 104 35 92/49 (63) 87 07/09/20 03:15 104 35 133/70 (91) 83 07/09/20 03:15 104 35 133/70 (91) 83 07/09/20 03:14 104 29 100 07/09/20 03:00 103 35 110/59 (76) 82 07/09/20 02:45 103 33 103/57 (72) 82 07/09/20 02:30 101 35 101/53 (69) 83 07/09/20 02:15 102 35 112/62 (79) 83 07/09/20 02:00 101 35 101/59 (73) 82 07/09/20 01:45 101 35 103/58 (73) 82 07/09/20 01:45 101 35 103/58 (73) 82 07/09/20 01:30 99 34 106/57 (73) 82 07/09/20 01:15 101 34 104/58 (73) 81 07/09/20 01:00 99 35 117/63 (81) 80 07/09/20 00:45 98 36 116/64 (81) 80 07/09/20 00:30 99 35 105/60 (75) 78 07/09/20 00:15 97 35 117/62 (80) 79 07/09/20 00:00 Mechanical Ventilator Mechanical Ventilator Mechanical Ventilator Mechanical Ventilator Mechanical Ventilator 07/09/20 00:00 95 35 116/63 (80) 80 07/09/20 00:00 95 35 116/63 (80) 80 07/09/20 00:00 100 07/09/20 00:00 91 07/08/20 23:45 93 35 111/63 (79) 81 07/08/20 23:30 94 31 100/58 (72) 81 07/08/20 23:24 18 91/46 100 07/08/20 23:15 90 30 91/51 (64) 85 07/08/20 23:03 90 27 100 07/08/20 23:00 90 29 83/53 (63) 83 07/08/20 23:00 90 29 83/53 (63) 83 07/08/20 22:45 88 30 83/50 (61) 85 07/08/20 22:30 88 30 79/53 (62) 86 07/08/20 22:30 88 30 79/53 (62) 86 07/08/20 22:24 18 85/60 Mechanical Ventilator 100 07/08/20 22:15 89 29 96/58 (71) 86 07/08/20 22:15 89 29 96/58 (71) 86 07/08/20 22:00 87 31 96/51 (66) 84 07/08/20 22:00 87 31 96/51 (66) 84 07/08/20 21:45 88 32 94/62 (73) 84 07/08/20 21:30 87 32 84/50 (61) 84 07/08/20 21:30 83 92/66 07/08/20 21:24 20 99/53 Mechanical Ventilator 100 07/08/20 21:15 88 29 91/53 (66) 85 07/08/20 21:00 87 26 85/56 (66) 85 07/08/20 20:45 88 29 99/55 (70) 84 07/08/20 20:30 87 29 86/53 (64) 83 07/08/20 20:24 22 111/51 Mechanical Ventilator 100 07/08/20 20:15 88 29 86/54 (65) 83 07/08/20 20:00 100 07/08/20 20:00 130 07/08/20 20:00 88 28 95/59 (71) 85 07/08/20 20:00 Mechanical Ventilator Mechanical Ventilator Mechanical Ventilator Mechanical Ventilator Mechanical Ventilator 07/08/20 19:54 97.9 07/08/20 19:45 88 27 96/60 (72) 85 07/08/20 19:30 88 27 97/59 (72) 86 07/08/20 19:24 35 Mechanical Ventilator 100 07/08/20 19:23 35 102/61 Mechanical Ventilator 100 07/08/20 19:22 28 102/61 Mechanical Ventilator 100 07/08/20 19:16 88 26 100 07/08/20 19:00 86 27 100/56 (71) 86 07/08/20 19:00 28 Mechanical Ventilator 100 07/08/20 19:00 28 102/61 Mechanical Ventilator 100 07/08/20 18:30 89 23 136/76 (96) 81 07/08/20 18:00 88 26 125/75 (92) 85 07/08/20 18:00 25 Mechanical Ventilator 100 07/08/20 18:00 25 125/74 Mechanical Ventilator 100 07/08/20 17:30 94 28 152/82 (105) 74 07/08/20 17:00 27 Mechanical Ventilator 100 07/08/20 17:00 27 144/79 Mechanical Ventilator 100 07/08/20 17:00 97 23 139/78 (98) 76 07/08/20 16:30 101 24 141/75 (97) 77 07/08/20 16:00 100 07/08/20 16:00 Mechanical Ventilator Mechanical Ventilator Mechanical Ventilator Mechanical Ventilator Mechanical Ventilator 07/08/20 16:00 28 Mechanical Ventilator 100 07/08/20 16:00 28 132/74 Mechanical Ventilator 100 07/08/20 16:00 102 07/08/20 16:00 97.0 107 30 130/74 (92) 82 07/08/20 15:45 108 30 142/77 (98) 87 07/08/20 15:30 111 26 147/79 (101) 07/08/20 15:03 109 23 100 07/08/20 15:00 31 Mechanical Ventilator 100 07/08/20 15:00 31 114/62 Mechanical Ventilator 100 07/08/20 15:00 107 31 114/62 (79) 68 07/08/20 14:30 112 38 149/77 (101) 79 07/08/20 14:00 29 Mechanical Ventilator 100 07/08/20 14:00 29 132/74 Mechanical Ventilator 100 07/08/20 14:00 110 38 154/81 (105) 84 07/08/20 13:30 112 38 152/80 (104) 84 07/08/20 13:00 38 Mechanical Ventilator 100 07/08/20 13:00 38 154/79 Mechanical Ventilator 100 07/08/20 13:00 112 38 157/76 (103) 83 07/08/20 12:30 109 38 150/75 (100) 87 Height (Feet): 5 Height (Inches): 2.00 Weight (Pounds): 138 HEENT: other - orally intubated Respiratory/Chest: other - on ventilator, RAH2=644%, bilateral chest tubes Cardiovascular: tachycardia, other - PICC line Abdomen: other - OG tube feeding Extremities: other - generalized edema Neurologic/Psychiatric: other - sedated Laboratory Tests Test 07/09/20 03:00 07/09/20 05:38 White Blood Count 8.4 K/UL (4.8-10.8) Red Blood Count 2.90 M/UL (4.20-5.40) L Hemoglobin 8.8 G/DL (12.0-16.0) L Hematocrit 28.1 % (37.0-47.0) L Mean Corpuscular Volume 97 FL (80-99) Mean Corpuscular Hemoglobin 30.3 PG (27.0-31.0) Mean Corpuscular Hemoglobin Concent 31.3 G/DL (32.0-36.0) L Red Cell Distribution Width 16.6 % (11.6-14.8) H Platelet Count 174 K/UL (150-450) Mean Platelet Volume 10.0 FL (6.5-10.1) Neutrophils (%) (Auto) % (45.0-75.0) Lymphocytes (%) (Auto) % (20.0-45.0) Monocytes (%) (Auto) % (1.0-10.0) Eosinophils (%) (Auto) % (0.0-3.0) Basophils (%) (Auto) % (0.0-2.0) Differential Total Cells Counted 100 Neutrophils % (Manual) 87 % (45-75) H Lymphocytes % (Manual) 5 % (20-45) L Monocytes % (Manual) 6 % (1-10) Eosinophils % (Manual) 1 % (0-3) Basophils % (Manual) 1 % (0-2) Band Neutrophils 0 % (0-8) Nucleated Red Blood Cells 2 /100 WBC Platelet Estimate Adequate Platelet Morphology Normal Polychromasia 1+ Hypochromasia 2+ Anisocytosis 1+ Microcytosis Occasional Macrocytosis 1+ Sodium Level 141 MMOL/L (136-145) Potassium Level 4.0 MMOL/L (3.5-5.1) Chloride Level 103 MMOL/L (98-107) Carbon Dioxide Level 38 MMOL/L (21-32) H Anion Gap 0 mmol/L (5-15) L Blood Urea Nitrogen 17 mg/dL (7-18) Creatinine 0.4 MG/DL (0.55-1.30) L Estimat Glomerular Filtration Rate > 60 mL/min (>60) Glucose Level 125 MG/DL (74-106) H Calcium Level 7.7 MG/DL (8.5-10.1) L Phosphorus Level 3.1 MG/DL (2.5-4.9) Magnesium Level 2.2 MG/DL (1.8-2.4) Total Bilirubin 0.4 MG/DL (0.2-1.0) Aspartate Amino Transf (AST/SGOT) 54 U/L (15-37) H Alanine Aminotransferase (ALT/SGPT) 45 U/L (12-78) Alkaline Phosphatase 153 U/L (46-116) H C-Reactive Protein, Quantitative 13.6 mg/dL (0.00-0.90) H Pro-B-Type Natriuretic Peptide 1350 pg/mL (0-125) H Total Protein 5.9 G/DL (6.4-8.2) L Albumin 1.0 G/DL (3.4-5.0) L Globulin 4.9 g/dL Albumin/Globulin Ratio 0.2 (1.0-2.7) L POC Whole Blood Glucose 160 MG/DL (74-106) H Current Medications Medications (Trade) Dose Ordered Sig/Maya Route PRN Reason Start Time Stop Time Status Last Admin Dose Admin Acetaminophen (Tylenol) 500 mg Q4H PRN ORAL Mild Pain (Pain Scale 1-3) 06/18/20 00:15 07/18/20 00:14 06/24/20 17:51 Acetaminophen (Tylenol) 500 mg Q4H PRN ORAL Temp >100.5 06/18/20 00:15 07/18/20 00:14 06/29/20 20:01 Carvedilol (Coreg) 6.25 mg EVERY 12 HOURS ORAL 06/22/20 21:00 07/22/20 20:59 07/09/20 10:14 Chlorhexidine Gluconate (Sissy-Hex 2%) 1 applic DAILY@2000 TOPIC 06/28/20 20:00 09/26/20 19:59 07/08/20 19:50 Dextrose (Dextrose 50%) 25 ml Q30M PRN IV Hypoglycemia 06/18/20 14:15 09/16/20 14:14 Dextrose (Dextrose 50%) 50 ml Q30M PRN IV Hypoglycemia 06/18/20 14:15 09/16/20 14:14 Docusate Sodium (Colace) 100 mg EVERY 8 HOURS NG 07/02/20 14:00 07/28/20 12:59 07/09/20 05:19 Fentanyl Citrate 250 ml @ 1 mls/hr Q24H IV 07/07/20 19:15 07/09/20 19:14 07/08/20 19:23 Furosemide (Lasix) 40 mg DAILY IV 06/28/20 17:45 07/28/20 16:59 07/09/20 10:13 Haloperidol Lactate (Haldol) 10 mg Q6H PRN IM Agitation 06/23/20 11:30 08/07/20 11:29 06/23/20 11:34 Insulin Aspart (NovoLOG) while NPO Q6HR SUBQ 06/18/20 18:00 09/16/20 17:59 07/09/20 05:51 Midazolam HCl 100 ml @ 0 mls/hr Q24H PRN IV SEDATION 07/08/20 07:45 07/10/20 07:44 07/09/20 06:55 Pantoprazole (Protonix) 40 mg EVERY 12 HOURS IVP 06/18/20 21:00 07/18/20 20:59 07/09/20 10:13 Sodium Chloride 1,000 ml @ 50 mls/hr Q20H IV 06/26/20 08:00 07/26/20 07:59 07/08/20 19:50 Vitamin D (Vitamin D) 2,000 unit DAILY GT 06/29/20 10:30 07/29/20 10:29 07/09/20 10:12 Raji Turpin MD Jul 09, 2020 12:09
--- NOTE | 2020-07-09 13:54 | NUR ---
insurance FAXED CLINICALS AND REVIEW TO [facility] T: [phone] F: [phone]
--- NOTE | 2020-07-09 14:00 | NUR ---
NURSE NOTES: Pt's family contacted the nurse's station and was provided with update on current status.
--- NOTE | 2020-07-09 17:15 | NUR ---
NURSE NOTES: Pt was cleaned, bed-bath given, dressing/changed, gown/bed linens were changed. Repositioned for comfort. VS stable while maintained on Fentanyl and Versed drips for -2 light sedation/ RASS score, continuing same rate.
[2020-07-09] MEDS ORDERED: NS Irrig 1000ml ONE (18:14)
[2020-07-09] MEDS ORDERED: NS 275ml ONE (18:14)
[2020-07-09] MEDS ORDERED: Tubing IV Secondary IV ONE (18:14)
--- NOTE | 2020-07-09 19:15 | NUR ---
NURSE HAND-OFF REPORT: Latest Vital Signs: Temperature 98F/rectal, Pulse 88, B/P 96/70, Respiratory Rate 22, O2 SAT 89, Mechanical Ventilator, ETT 7.0 at 22cm/lipline, vent settings AC20, VT 400, peep 12, FIo2 100%. Vital Sign Comment: Remains on Fentanyl and Versed drips for sedation. Bilateral chest tubes connected to pleura-vac drainage system/ to wall suction. EKG Rhythm: Sinus Rhythm Rhythm change?: N Latest Carney Fall Score: 50 Fall Risk: High Risk Safety Measures: Call light Within Reach, Bed Alarm Zone 2, Side Rails Side Rails x3, Bed position Low and Locked. Fall Precautions: Yellow Socks Door Sign Patient Fall Education Report given to Jodie AUSTIN. Endorsed plan of care.
--- NOTE | 2020-07-09 19:30 | NUR ---
NURSE NOTES: Received report from NORMAN Moreau. Patient code recently changed to DNR. Patient is sedated. SR is on cardia monitor. Afebrile and VSS. Orally intubated on Jun 23. ETT 7.5/22cm at lip line with vent setting AC 20, TV 400, Peep 12 and FiO2 100%. O2 sat 81% on the monitor. OGT intact and running with Glucerna 1.2 @ 55ml/hr. Martin intact and draining with richelle color urine. PICC: TONY, CDI. Fentanyl @ 60mcg/hr, Versed @ 5mg/hr and NS @50mL/hr are running, intact. Left and Right chest tube intact and connected to pleural vac. Gentle bubble noted in water chamber. No air leakage noted, CDI. Safety measures observed and no acute distress noted. Will continue to monitor.
[2020-07-09] MEDS: Dyna-Hex 2% Top Sol 2oz TOPIC SCH (20:00)
--- NOTE | 2020-07-09 20:51 | General Progress Note ---
Subjective ROS Limited/Unobtainable: Yes Allergies: Coded Allergies: No Known Allergies (Unverified , 06/17/20) Objective Last 24 Hour Vital Signs Date Time Temp Pulse Resp B/P (MAP) Pulse Ox O2 Delivery O2 Flow Rate FiO2 07/09/20 20:00 Mechanical Ventilator Mechanical Ventilator Mechanical Ventilator Mechanical Ventilator Mechanical Ventilator 07/09/20 20:00 100 07/09/20 20:00 97 34 139/75 (96) 81 07/09/20 20:00 97 07/09/20 19:30 98 31 142/72 (95) 83 07/09/20 19:00 98 34 159/76 (103) 81 07/09/20 19:00 35 Mechanical Ventilator 100 07/09/20 19:00 35 151/76 Mechanical Ventilator 100 07/09/20 19:00 100 36 100 07/09/20 18:30 97 35 165/81 (109) 82 07/09/20 18:30 98.0 07/09/20 18:00 35 Mechanical Ventilator 100.0 100 07/09/20 18:00 30 165/81 Mechanical Ventilator 100 07/09/20 18:00 95 32 125/74 (91) 89 07/09/20 17:00 32 Mechanical Ventilator 100 07/09/20 17:00 32 127/67 Mechanical Ventilator 100 07/09/20 17:00 94 30 138/72 (94) 77 07/09/20 16:00 100 07/09/20 16:00 98.0 93 27 114/64 (81) 89 07/09/20 16:00 29 Mechanical Ventilator 100 07/09/20 16:00 29 125/73 Mechanical Ventilator 100 07/09/20 16:00 Mechanical Ventilator Mechanical Ventilator Mechanical Ventilator Mechanical Ventilator Mechanical Ventilator 07/09/20 16:00 94 07/09/20 15:30 91 26 121/62 (81) 91 07/09/20 15:03 89 32 100 07/09/20 15:00 33 Mechanical Ventilator 100 07/09/20 15:00 33 127/69 Mechanical Ventilator 100 07/09/20 15:00 94 30 137/68 (91) 88 07/09/20 14:00 33 Mechanical Ventilator 100 07/09/20 14:00 33 136/78 Mechanical Ventilator 100 07/09/20 14:00 96 33 151/73 (99) 89 07/09/20 13:30 96 33 136/79 (98) 89 07/09/20 13:00 95 32 145/74 (97) 89 07/09/20 13:00 34 Mechanical Ventilator 100 07/09/20 13:00 34 165/82 Mechanical Ventilator 100 07/09/20 12:30 100 33 156/83 (107) 86 07/09/20 12:00 97.9 104 37 159/87 (111) 84 07/09/20 12:00 100 07/09/20 12:00 Mechanical Ventilator Mechanical Ventilator Mechanical Ventilator Mechanical Ventilator Mechanical Ventilator 07/09/20 12:00 36 Mechanical Ventilator 100 07/09/20 12:00 36 159/77 Mechanical Ventilator 100 07/09/20 11:43 103 07/09/20 11:14 102 38 100 07/09/20 11:00 38 Mechanical Ventilator 100 07/09/20 11:00 38 153/81 Mechanical Ventilator 100 07/09/20 11:00 103 38 156/79 (104) 84 07/09/20 10:30 104 38 159/79 (105) 87 07/09/20 10:14 109 148/74 07/09/20 10:00 108 36 148/74 (98) 87 07/09/20 10:00 37 Mechanical Ventilator 100 07/09/20 10:00 37 150/83 Mechanical Ventilator 100 07/09/20 09:30 107 36 149/78 (101) 86 07/09/20 09:00 107 36 144/78 (100) 87 07/09/20 09:00 36 Mechanical Ventilator 100 07/09/20 09:00 36 152/74 Mechanical Ventilator 100 07/09/20 08:30 107 36 136/67 (90) 89 07/09/20 08:00 37 Mechanical Ventilator 100 07/09/20 08:00 37 137/74 100 07/09/20 08:00 Mechanical Ventilator Mechanical Ventilator Mechanical Ventilator Mechanical Ventilator Mechanical Ventilator 07/09/20 08:00 99.0 109 37 131/75 (93) 87 07/09/20 08:00 100 07/09/20 08:00 108 07/09/20 07:25 99.6 07/09/20 07:14 109 29 100 07/09/20 07:00 109 37 125/74 (91) 88 07/09/20 06:55 22 100 07/09/20 06:45 110 37 125/65 (85) 87 07/09/20 06:30 111 38 133/70 (91) 87 07/09/20 06:15 112 38 130/66 (87) 87 07/09/20 06:00 111 38 128/66 (86) 87 07/09/20 05:45 110 38 134/63 (86) 86 07/09/20 05:30 110 38 125/65 (85) 85 07/09/20 05:15 109 37 123/65 (84) 85 07/09/20 05:00 109 38 111/63 (79) 84 07/09/20 04:45 107 37 117/59 (78) 85 07/09/20 04:30 107 38 139/69 (92) 86 07/09/20 04:00 107 36 114/59 (77) 86 07/09/20 04:00 100 07/09/20 04:00 Mechanical Ventilator Mechanical Ventilator Mechanical Ventilator Mechanical Ventilator Mechanical Ventilator 07/09/20 04:00 77 07/09/20 03:45 107 37 115/58 (77) 86 07/09/20 03:30 104 35 92/49 (63) 87 07/09/20 03:15 104 35 133/70 (91) 83 07/09/20 03:15 104 35 133/70 (91) 83 07/09/20 03:14 104 29 100 07/09/20 03:00 103 35 110/59 (76) 82 07/09/20 02:45 103 33 103/57 (72) 82 07/09/20 02:30 101 35 101/53 (69) 83 07/09/20 02:15 102 35 112/62 (79) 83 07/09/20 02:00 101 35 101/59 (73) 82 07/09/20 01:45 101 35 103/58 (73) 82 07/09/20 01:45 101 35 103/58 (73) 82 07/09/20 01:30 99 34 106/57 (73) 82 07/09/20 01:15 101 34 104/58 (73) 81 07/09/20 01:00 99 35 117/63 (81) 80 07/09/20 00:45 98 36 116/64 (81) 80 07/09/20 00:30 99 35 105/60 (75) 78 07/09/20 00:15 97 35 117/62 (80) 79 07/09/20 00:00 Mechanical Ventilator Mechanical Ventilator Mechanical Ventilator Mechanical Ventilator Mechanical Ventilator 07/09/20 00:00 95 35 116/63 (80) 80 07/09/20 00:00 95 35 116/63 (80) 80 07/09/20 00:00 100 07/09/20 00:00 91 07/08/20 23:45 93 35 111/63 (79) 81 07/08/20 23:30 94 31 100/58 (72) 81 07/08/20 23:24 18 91/46 100 07/08/20 23:15 90 30 91/51 (64) 85 07/08/20 23:03 90 27 100 07/08/20 23:00 90 29 83/53 (63) 83 07/08/20 23:00 90 29 83/53 (63) 83 07/08/20 22:45 88 30 83/50 (61) 85 07/08/20 22:30 88 30 79/53 (62) 86 07/08/20 22:30 88 30 79/53 (62) 86 07/08/20 22:24 18 85/60 Mechanical Ventilator 100 07/08/20 22:15 89 29 96/58 (71) 86 07/08/20 22:15 89 29 96/58 (71) 86 07/08/20 22:00 87 31 96/51 (66) 84 07/08/20 22:00 87 31 96/51 (66) 84 07/08/20 21:45 88 32 94/62 (73) 84 07/08/20 21:30 87 32 84/50 (61) 84 07/08/20 21:30 83 92/66 07/08/20 21:24 20 99/53 Mechanical Ventilator 100 07/08/20 21:15 88 29 91/53 (66) 85 07/08/20 21:00 87 26 85/56 (66) 85 Intake and Output 07/08/20 07/09/20 18:59 06:59 Intake Total 1644.65 ml 1219.2 ml Output Total 1200 ml 500 ml Balance 444.65 ml 719.2 ml Intake Free Water 150 ml IV Total 834.65 ml 559.2 ml Tube Feeding 660 ml 660 ml Output Urine Total 1200 ml 500 ml Laboratory Tests 07/09/20 03:00: White Blood Count 8.4, Red Blood Count 2.90L, Hemoglobin 8.8L, Hematocrit 28.1L, Mean Corpuscular Volume 97, Mean Corpuscular Hemoglobin 30.3, Mean Corpuscular Hemoglobin Concent 31.3L, Red Cell Distribution Width 16.6H, Platelet Count 174, Mean Platelet Volume 10.0, Neutrophils (%) (Auto) , Lymphocytes (%) (Auto) , Monocytes (%) (Auto) , Eosinophils (%) (Auto) , Basophils (%) (Auto) , Differential Total Cells Counted 100, Neutrophils % (Manual) 87H, Lymphocytes % (Manual) 5L, Monocytes % (Manual) 6, Eosinophils % (Manual) 1, Basophils % (Manual) 1, Band Neutrophils 0, Nucleated Red Blood Cells 2, Platelet Estimate Adequate, Platelet Morphology Normal, Polychromasia 1+, Hypochromasia 2+, Anisocytosis 1+, Microcytosis Occasional, Macrocytosis 1+, Sodium Level 141, Potassium Level 4.0, Chloride Level 103, Carbon Dioxide Level 38H, Anion Gap 0L, Blood Urea Nitrogen 17, Creatinine 0.4L, Estimat Glomerular Filtration Rate > 60, Glucose Level 125H, Calcium Level 7.7L, Phosphorus Level 3.1, Magnesium Level 2.2, Total Bilirubin 0.4, Aspartate Amino Transf (AST/SGOT) 54H, Alanine Aminotransferase (ALT/SGPT) 45, Alkaline Phosphatase 153H, C-Reactive Protein, Quantitative 13.6H, Pro-B-Type Natriuretic Peptide 1350H, Total Protein 5.9L, Albumin 1.0L, Globulin 4.9, Albumin/Globulin Ratio 0.2L 07/09/20 05:38: POC Whole Blood Glucose 160H Height (Feet): 5 Height (Inches): 2.00 Weight (Pounds): 138 General Appearance: lethargic Assessment/Plan Problem List: (1) Elevated d-dimer ICD Codes: R79.89 - Other specified abnormal findings of blood chemistry SNOMED: 100706926 (2) Renal insufficiency ICD Codes: N28.9 - Disorder of kidney and ureter, unspecified SNOMED: 498393348, 586375934 (3) PNA (pneumonia) ICD Codes: J18.9 - Pneumonia, unspecified organism SNOMED: 407617492 (4) Dehydration ICD Codes: E86.0 - Dehydration SNOMED: 69098150 (5) LEONARDO (acute kidney injury) ICD Codes: N17.9 - Acute kidney failure, unspecified SNOMED: 7861002, 19116150 (6) Hypoxia ICD Codes: R09.02 - Hypoxemia; J12.82 - Pneumonia due to coronavirus disease 2019 SNOMED: 242381370 (7) Pneumonia due to COVID-19 virus ICD Codes: U07.1 - COVID-19; J12.82 - Pneumonia due to coronavirus disease 2019 SNOMED: 493930952662600543 (8) DMII (diabetes mellitus, type 2) ICD Codes: E11.9 - Type 2 diabetes mellitus without complications SNOMED: 51222118 Status: progressing, unchanged Assessment/Plan: covid + check lytes unable to wean poor chance of recovery failure to wean lethargic trach per dr thompson intubated f poor prognosis bilat chest tube recurrent Vidya Clayton MD Jul 09, 2020 20:51
[2020-07-09] MEDS: fentaNYL Citrate 1,000 MCG in NS 100 ML IV PRN (22:00)
[2020-07-09] MEDS: fentaNYL 2500mcg/NS 250ml 250 ML IV SCH (22:00)
--- NOTE | 2020-07-09 23:00 | NUR ---
NURSE NOTES: Pt BP trending down. Contacted Pt's son, Car to ask if he wants MD order pressor. Left a message on his cell.
--- NOTE | 2020-07-09 23:20 | NUR ---
NURSE NOTES: Received a phone call from Car and he asked order a pressor.
--- NOTE | 2020-07-09 23:30 | NUR ---
NURSE NOTES: Pt BP trending down. Currently 78/49. Contacted Dr. Arizmendi and referred to Dr. Lemon. Will continue to monitor.
--- NOTE | 2020-07-09 23:40 | NUR ---
NURSE NOTES: Consult with solar energy systems designer. Contacted primary Dr. Burleson. Left a message on the office phone.
--- NOTE | 2020-07-09 23:55 | NUR ---
NURSE NOTES: Consult with radiation control worker. Contacted Dr. Sewell and Levophed was ordered. Will call pipe line to verify the order.
[2020-07-10] VITALS (43 sets, daily range): BP systolic 82–165; BP diastolic 46–88
--- NOTE | 2020-07-10 | NUR ---
NURSE NOTES: Due to low BP, degree of the bed was flat. Feeding held.
--- NOTE | 2020-07-10 02:00 | NUR ---
NURSE NOTES: AM care provided. CHG was given partially, PICC line area and perineal care only due to unstable condition. Continue to monitor.
--- NOTE | 2020-07-10 04:00 | NUR ---
NURSE NOTES: BP became stable. Bed position is semi flores. No residual, 30mL water flush given, and feeding re-started.
[2020-07-10] MEDS: Versed 50mg/NS 100ml 100 ML IV PRN (05:00)
[2020-07-10] MEDS: Docusate 100mg/10ml Liq NG SCH ×3 (06:00→20:15)
[2020-07-10] MEDS: NovoLOG Insulin Flexpen SUBQ SCH ×5 (06:00→23:51)
--- NOTE | 2020-07-10 06:00 | NUR ---
NURSE NOTES: Chest tube amount were - Right 30mL - Left 10mL Pt is afebrile and VSS.
--- NOTE | 2020-07-10 06:38 | NUR ---
CASE MANAGEMENT:REVIEW 07/10/20 SI: COVID PNEUMONIA ~ INTUBATED. PNTHX W/BILATERAL CHEST TUBES 96.8 40 127/74 86% ON VENT SUPPORT W/100% FIO2 PEEP~12.0 IS:LEVOPHED GTT VERSED GTT FENTANYL GTT IV LASIX QD IVF@50/HR COREG NG Q12HR IV PROTONIX Q12H : ICU STATUS DCP: FROM HOME PLAN: SUPPORTIVE CARE BILATERAL CHEST TUBES TO SUCTION WEAN OXYGEN IF ABLE
--- NOTE | 2020-07-10 07:00 | NUR ---
NURSE NOTES: Pt's BP 123/49. Titrate down to 8mcgs. Afebrile and VSS.
--- NOTE | 2020-07-10 07:10 | NUR ---
RESPIRATORY NOTE: PT received on AC/VC: 20, 400, 100%, +12. (Ventilator states PEEP of +10 but allows PEEP of +12 if needed). Alarms are on and audible. Vent circuit is secure and out of the way. Airway is secure and patent. PT saturation is currently 86% on the monitor while on the maximum allowed PEEP. Lizzeth AUSTIN is aware. Will continue to closely monitor.
--- NOTE | 2020-07-10 07:28 | NUR ---
HAND OFF: Report given to NORMAN Moreau. Endorsed POC.
--- NOTE | 2020-07-10 08:00 | NUR ---
NURSE NOTES: Pt was assessed after change of shift report from Jodie AUSTIN. Sedated while on Fentanyl drip 60mcg/hr and Versed drip 5mg/hr with RASS score -2 light sedation. Orally intubated ETT 7.0 at 22cm/lipline with vent settings AC20, VT400, Peep 12, FIO2 100% with O2Sat 88%. Bilateral chest tubes connected to pleura-vac drainage system to wall/suction. 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 NS infusing at 50ml/hour, connected to right double lumen PICC line, patent/intact dressing. Temp 98.6F/rectal while maintained on cooling blanket. OGT with Glucerna 1.2 infusing at goal rate of 55ml/hour with zero residual. Martin catheter 16F, draining dark richelle urine. Skin alterations including sacral DTI/and skin tear, covered with optifoam dressing. On pressure release mattress, off/heels. HOB at 30degrees, bed locked/in lowest position, 3 side-rails up. Will continue to monitor and follow plan of care.
--- NOTE | 2020-07-10 08:23 | NUR ---
RADIOLOGY DEPT., CHEST X-RAY DONE.-P.DYE
[2020-07-10] MEDS: Vitamin D 1000 units Tab GT SCH (08:34)
[2020-07-10] MEDS: Norepinephrine 4mg/NS Premix 250 ML IV SCH ×2 (08:35)
[2020-07-10] MEDS: Carvedilol 6.25mg Tab ORAL SCH (08:35)
--- NOTE | 2020-07-10 09:26 | Hematology/Onc Progress Note ---
Assessment/Plan Assessment/Plan Assessment and recs # Leukocytosis with Pneumonia due to COVID-19 virus -> wbc trend 15-->11-->10->17-->18->11->21->9 --> ABX as per id ctx-->off-->cefepime --> imaging does show pna --> anticoag recommended --> on remdesivir # Anemia of chronic disease --> hgb 12->10-->9-->11-->10.8->10-->9.6-->8.8 -> transfuse prn --> r/o hemolysis # Thrombocytopenia due to likely plt destruction, Covid19++ with Hypoxia -> steriods, abx per id --> plt 117-->121-->124->77-->90-->132-->174 --> smear is noted # Elevated ddimer due to covid --> duplex legs -> LOVENOX sq # Renal insufficiency -> per renal care # Sepsis due to above --> abx, fluid resuscitation # Dvt ppx lovenox sq bid Appreciate consultation and mehran RN Subjective Allergies: Coded Allergies: No Known Allergies (Unverified , 06/17/20) All Systems: reviewed and negative except above Subjective 06/19 sleeping, comfortable, on bipap, meds have been reviewed 06/21 on bipap, labs have been reviewed, no major events 06/22 bipap labs reviewed, meds noted, no bleeding 06/23 bipap labs noted, no bleeding, meds reviewed, mehran rn 06/24 on vent, labs reviewed, meds reviewed 06/25 on vent, with ctx as abx, labs noted, no bleeding 06/26 vent, with ogt, with helms, labs noted, no bleeding plts lower 06/28 labs are pending, on vent, helms intract, no new changes 06/29 icu, on vent, hgb 11, plt 124, meds noted, on ctx 06/30 icu, edematous, is on vent, labs reviewed, abx 07/01 icu, on vent, labs noted, no bleeding, plt 77, labs ordered 07/02 icu, nv, meds noted, no bleeding, plt 91, hgb 9 07/03 icu, nv, meds noted, right chest tube with output, hgb 10 07/05 icu, nv, meds reviewed, labs noted, b/l chest tubes in place 07/06 icu, nv, meds, labs have been ordered, chest tube draining 07/07 icu, chest tubes, on fen, versed, no major changes 07/08 icu, v, chest xray is noted, with worsening right pneumothorax, labs noted 07/09 meds noted, vent, labs reviewed, smear noted. lovenox bid 07/10 icu, on vent, nv, labs reviewed, chest tube functional, on anticoag Objective Objective Current Medications Medications (Trade) Dose Ordered Sig/Maya Route PRN Reason Start Time Stop Time Status Last Admin Dose Admin Acetaminophen (Tylenol) 500 mg Q4H PRN ORAL Mild Pain (Pain Scale 1-3) 06/18/20 00:15 07/18/20 00:14 06/24/20 17:51 Acetaminophen (Tylenol) 500 mg Q4H PRN ORAL Temp >100.5 06/18/20 00:15 07/18/20 00:14 06/29/20 20:01 Carvedilol (Coreg) 6.25 mg EVERY 12 HOURS ORAL 06/22/20 21:00 07/22/20 20:59 07/09/20 22:00 Chlorhexidine Gluconate (Sissy-Hex 2%) 1 applic DAILY@2000 TOPIC 06/28/20 20:00 09/26/20 19:59 07/09/20 20:00 Dextrose (Dextrose 50%) 25 ml Q30M PRN IV Hypoglycemia 06/18/20 14:15 09/16/20 14:14 Dextrose (Dextrose 50%) 50 ml Q30M PRN IV Hypoglycemia 06/18/20 14:15 09/16/20 14:14 Docusate Sodium (Colace) 100 mg EVERY 8 HOURS NG 07/02/20 14:00 07/28/20 12:59 07/09/20 05:19 Famotidine (Pepcid I.v.) 20 mg BID IVP 07/10/20 09:00 08/09/20 08:59 07/10/20 08:49 Fentanyl Citrate 1000 mcg/Sodium Chloride 120 ml @ 0 mls/hr Q24H PRN IV SEDATION 07/09/20 21:00 07/11/20 20:59 07/09/20 22:00 Furosemide (Lasix) 40 mg DAILY IV 06/28/20 17:45 07/28/20 16:59 07/09/20 10:13 Haloperidol Lactate (Haldol) 10 mg Q6H PRN IM Agitation 06/23/20 11:30 08/07/20 11:29 06/23/20 11:34 Insulin Aspart (NovoLOG) while NPO Q6HR SUBQ 06/18/20 18:00 09/16/20 17:59 07/10/20 00:00 Midazolam HCl 100 ml @ 0 mls/hr Q24H PRN IV SEDATION 07/08/20 07:45 07/10/20 14:59 07/10/20 05:00 Midazolam HCl 100 ml @ 0 mls/hr Q24H PRN IV SEDATION 07/10/20 15:00 07/12/20 14:59 Norepinephrine Bitartrate 250 ml @ 7.5 mls/hr Q24H IV 07/10/20 00:00 07/12/20 23:50 07/10/20 08:35 Sodium Chloride 1,000 ml @ 50 mls/hr Q20H IV 06/26/20 08:00 07/26/20 07:59 07/10/20 08:35 Vitamin D (Vitamin D) 2,000 unit DAILY GT 06/29/20 10:30 07/29/20 10:29 07/10/20 08:34 Last 24 Hour Vital Signs Date Time Temp Pulse Resp B/P (MAP) Pulse Ox O2 Delivery O2 Flow Rate FiO2 07/10/20 08:35 102/49 07/10/20 07:00 91 32 123/49 (73) 85 07/10/20 07:00 32 123/49 100 07/10/20 06:00 30 127/74 Mechanical Ventilator 100 07/10/20 06:00 30 Mechanical Ventilator 100 07/10/20 06:00 30 127/74 Mechanical Ventilator 100 07/10/20 06:00 98.6 85 30 127/74 (91) 86 07/10/20 05:30 83 30 134/74 (94) 88 07/10/20 05:30 96.8 07/10/20 05:00 79 28 121/74 (90) 90 07/10/20 05:00 28 121/74 Mechanical Ventilator 100 07/10/20 05:00 28 100 07/10/20 05:00 28 121/74 Mechanical Ventilator 100 07/10/20 04:30 78 30 97/54 (68) 90 07/10/20 04:00 Mechanical Ventilator Mechanical Ventilator Mechanical Ventilator Mechanical Ventilator Mechanical Ventilator 07/10/20 04:00 78 29 94/52 (66) 91 07/10/20 04:00 100 07/10/20 04:00 78 07/10/20 04:00 29 94/52 Mechanical Ventilator 100 07/10/20 04:00 29 Mechanical Ventilator 100 07/10/20 04:00 29 94/52 Mechanical Ventilator 100 07/10/20 03:30 77 29 97/58 (71) 91 07/10/20 03:10 79 32 100 07/10/20 03:00 73 24 108/59 (75) 91 07/10/20 03:00 24 108/59 Mechanical Ventilator 100 07/10/20 03:00 28 Mechanical Ventilator 100 07/10/20 03:00 24 108/59 Mechanical Ventilator 100 07/10/20 02:00 74 28 93/61 (72) 94 07/10/20 02:00 28 93/61 Mechanical Ventilator 100 07/10/20 02:00 28 Mechanical Ventilator 100 07/10/20 02:00 28 93/61 Mechanical Ventilator 100 07/10/20 01:30 78 29 86/49 (61) 94 07/10/20 01:00 77 30 82/48 (59) 91 07/10/20 01:00 30 82/48 Mechanical Ventilator 100 07/10/20 01:00 30 Mechanical Ventilator 100 07/10/20 01:00 30 82/48 Mechanical Ventilator 100 07/10/20 00:30 78 32 108/66 (80) 93 07/10/20 00:00 79 31 83/48 (60) 91 07/10/20 00:00 Mechanical Ventilator Mechanical Ventilator Mechanical Ventilator Mechanical Ventilator Mechanical Ventilator 07/10/20 00:00 74/46 07/10/20 00:00 31 83/48 Mechanical Ventilator 100 07/10/20 00:00 31 Mechanical Ventilator 100 07/10/20 00:00 31 83/48 Mechanical Ventilator 100 07/09/20 23:30 77 29 74/46 (55) 89 07/09/20 23:10 79 30 100 07/09/20 23:00 28 74/47 Mechanical Ventilator 100 07/09/20 23:00 28 Mechanical Ventilator 100 07/09/20 23:00 28 74/47 Mechanical Ventilator 100 07/09/20 23:00 80 28 74/47 (56) 89 [id number] 22:30 87 29 83/49 (60) 90 07/09/20 22:00 91 28 89/56 (67) 89 07/09/20 22:00 28 89/56 100 07/09/20 22:00 28 Mechanical Ventilator 100 07/09/20 22:00 31 120/69 Mechanical Ventilator 100 07/09/20 22:00 96 120/69 07/09/20 21:30 95 25 112/62 (79) 84 07/09/20 21:00 97 34 139/75 (96) 81 07/09/20 21:00 31 Mechanical Ventilator 100 07/09/20 21:00 31 120/69 Mechanical Ventilator 100 07/09/20 20:30 97 33 131/71 (91) 81 07/09/20 20:00 Mechanical Ventilator Mechanical Ventilator Mechanical Ventilator Mechanical Ventilator Mechanical Ventilator 07/09/20 20:00 100 07/09/20 20:00 96.8 97 34 139/75 (96) 81 21 20:00 33 Mechanical Ventilator 100 07/09/20 20:00 33 134/71 Mechanical Ventilator 100 07/09/20 20:00 97 18 19:30 98 31 142/72 (95) 83 07/09/20 19:00 98 34 159/76 (103) 81 07/09/20 19:00 35 Mechanical Ventilator 100 07/09/20 19:00 35 151/76 Mechanical Ventilator 100 07/09/20 19:00 100 36 100 21 18:30 97 35 165/81 (109) 82 [id number] 18:30 98.0 18 18:00 35 Mechanical Ventilator 100.0 100 07/09/20 18:00 30 165/81 Mechanical Ventilator 100 07/09/20 18:00 95 32 125/74 (91) 89 07/09/20 17:00 32 Mechanical Ventilator 100 07/09/20 17:00 32 127/67 Mechanical Ventilator 100 07/09/20 17:00 94 30 138/72 (94) 77 21 16:00 100 221 16:00 98.0 93 27 114/64 (81) 89 07/09/20 16:00 29 Mechanical Ventilator 100 07/09/20 16:00 29 125/73 Mechanical Ventilator 100 07/09/20 16:00 Mechanical Ventilator Mechanical Ventilator Mechanical Ventilator Mechanical Ventilator Mechanical Ventilator 07/09/20 16:00 94 07/09/20 15:30 91 26 121/62 (81) 91 07/09/20 15:03 89 32 100 07/09/20 15:00 33 Mechanical Ventilator 100 07/09/20 15:00 33 127/69 Mechanical Ventilator 100 07/09/20 15:00 94 30 137/68 (91) 88 07/09/20 14:00 33 Mechanical Ventilator 100 07/09/20 14:00 33 136/78 Mechanical Ventilator 100 07/09/20 14:00 96 33 151/73 (99) 89 07/09/20 13:30 96 33 136/79 (98) 89 07/09/20 13:00 95 32 145/74 (97) 89 07/09/20 13:00 34 Mechanical Ventilator 100 07/09/20 13:00 34 165/82 Mechanical Ventilator 100 07/09/20 12:30 100 33 156/83 (107) 86 07/09/20 12:00 97.9 104 37 159/87 (111) 84 07/09/20 12:00 100 07/09/20 12:00 Mechanical Ventilator Mechanical Ventilator Mechanical Ventilator Mechanical Ventilator Mechanical Ventilator 07/09/20 12:00 36 Mechanical Ventilator 100 07/09/20 12:00 36 159/77 Mechanical Ventilator 100 07/09/20 11:43 103 07/09/20 11:14 102 38 100 07/09/20 11:00 38 Mechanical Ventilator 100 07/09/20 11:00 38 153/81 Mechanical Ventilator 100 07/09/20 11:00 103 38 156/79 (104) 84 07/09/20 10:30 104 38 159/79 (105) 87 07/09/20 10:14 109 148/74 07/09/20 10:00 108 36 148/74 (98) 87 07/09/20 10:00 37 Mechanical Ventilator 100 07/09/20 10:00 37 150/83 Mechanical Ventilator 100 07/09/20 09:30 107 36 149/78 (101) 86 07/09/20 09:00 107 36 144/78 (100) 87 07/09/20 09:00 36 Mechanical Ventilator 100 07/09/20 09:00 36 152/74 Mechanical Ventilator 100 07/09/20 08:30 107 36 136/67 (90) 89 07/09/20 08:00 37 Mechanical Ventilator 100 07/09/20 08:00 37 137/74 100 07/09/20 08:00 Mechanical Ventilator Mechanical Ventilator Mechanical Ventilator Mechanical Ventilator Mechanical Ventilator 07/09/20 08:00 99.0 109 37 131/75 (93) 87 07/09/20 08:00 100 07/09/20 08:00 108 07/09/20 07:25 99.6 07/09/20 07:14 109 29 100 07/09/20 07:00 109 37 125/74 (91) 88 07/09/20 06:55 22 100 07/09/20 06:45 110 37 125/65 (85) 87 07/09/20 06:30 111 38 133/70 (91) 87 07/09/20 06:15 112 38 130/66 (87) 87 07/09/20 06:00 111 38 128/66 (86) 87 07/09/20 05:45 110 38 134/63 (86) 86 07/09/20 05:30 110 38 125/65 (85) 85 07/09/20 05:15 109 37 123/65 (84) 85 07/09/20 05:00 109 38 111/63 (79) 84 07/09/20 04:45 107 37 117/59 (78) 85 07/09/20 04:30 107 38 139/69 (92) 86 07/09/20 04:00 107 36 114/59 (77) 86 07/09/20 04:00 100 07/09/20 04:00 Mechanical Ventilator Mechanical Ventilator Mechanical Ventilator Mechanical Ventilator Mechanical Ventilator 07/09/20 04:00 77 07/09/20 03:45 107 37 115/58 (77) 86 07/09/20 03:30 104 35 92/49 (63) 87 07/09/20 03:15 104 35 133/70 (91) 83 07/09/20 03:15 104 35 133/70 (91) 83 07/09/20 03:14 104 29 100 07/09/20 03:00 103 35 110/59 (76) 82 07/09/20 02:45 103 33 103/57 (72) 82 07/09/20 02:30 101 35 101/53 (69) 83 07/09/20 02:15 102 35 112/62 (79) 83 07/09/20 02:00 101 35 101/59 (73) 82 07/09/20 01:45 101 35 103/58 (73) 82 07/09/20 01:45 101 35 103/58 (73) 82 07/09/20 01:30 99 34 106/57 (73) 82 07/09/20 01:15 101 34 104/58 (73) 81 07/09/20 01:00 99 35 117/63 (81) 80 07/09/20 00:45 98 36 116/64 (81) 80 07/09/20 00:30 99 35 105/60 (75) 78 07/09/20 00:15 97 35 117/62 (80) 79 07/09/20 00:00 Mechanical Ventilator Mechanical Ventilator Mechanical Ventilator Mechanical Ventilator Mechanical Ventilator 07/09/20 00:00 95 35 116/63 (80) 80 07/09/20 00:00 95 35 116/63 (80) 80 07/09/20 00:00 100 07/09/20 00:00 91 07/08/20 23:45 93 35 111/63 (79) 81 07/08/20 23:30 94 31 100/58 (72) 81 07/08/20 23:24 18 91/46 100 07/08/20 23:15 90 30 91/51 (64) 85 07/08/20 23:03 90 27 100 07/08/20 23:00 90 29 83/53 (63) 83 07/08/20 23:00 90 29 83/53 (63) 83 07/08/20 22:45 88 30 83/50 (61) 85 07/08/20 22:30 88 30 79/53 (62) 86 07/08/20 22:30 88 30 79/53 (62) 86 07/08/20 22:24 18 85/60 Mechanical Ventilator 100 07/08/20 22:15 89 29 96/58 (71) 86 07/08/20 22:15 89 29 96/58 (71) 86 07/08/20 22:00 87 31 96/51 (66) 84 07/08/20 22:00 87 31 96/51 (66) 84 07/08/20 21:45 88 32 94/62 (73) 84 07/08/20 21:30 87 32 84/50 (61) 84 07/08/20 21:30 83 92/66 07/08/20 21:24 20 99/53 Mechanical Ventilator 100 07/08/20 21:15 88 29 91/53 (66) 85 07/08/20 21:00 87 26 85/56 (66) 85 07/08/20 20:45 88 29 99/55 (70) 84 07/08/20 20:30 87 29 86/53 (64) 83 07/08/20 20:24 22 111/51 Mechanical Ventilator 100 07/08/20 20:15 88 29 86/54 (65) 83 07/08/20 20:00 100 07/08/20 20:00 130 07/08/20 20:00 88 28 95/59 (71) 85 07/08/20 20:00 Mechanical Ventilator Mechanical Ventilator Mechanical Ventilator Mechanical Ventilator Mechanical Ventilator 07/08/20 19:54 97.9 07/08/20 19:45 88 27 96/60 (72) 85 07/08/20 19:30 88 27 97/59 (72) 86 07/08/20 19:24 35 Mechanical Ventilator 100 07/08/20 19:23 35 102/61 Mechanical Ventilator 100 07/08/20 19:22 28 102/61 Mechanical Ventilator 100 07/08/20 19:16 88 26 100 07/08/20 19:00 86 27 100/56 (71) 86 07/08/20 19:00 28 Mechanical Ventilator 100 07/08/20 19:00 28 102/61 Mechanical Ventilator 100 07/08/20 18:30 89 23 136/76 (96) 81 07/08/20 18:00 88 26 125/75 (92) 85 07/08/20 18:00 25 Mechanical Ventilator 100 07/08/20 18:00 25 125/74 Mechanical Ventilator 100 07/08/20 17:30 94 28 152/82 (105) 74 07/08/20 17:00 27 Mechanical Ventilator 100 07/08/20 17:00 27 144/79 Mechanical Ventilator 100 07/08/20 17:00 97 23 139/78 (98) 76 07/08/20 16:30 101 24 141/75 (97) 77 07/08/20 16:00 100 07/08/20 16:00 Mechanical Ventilator Mechanical Ventilator Mechanical Ventilator Mechanical Ventilator Mechanical Ventilator 07/08/20 16:00 28 Mechanical Ventilator 100 07/08/20 16:00 28 132/74 Mechanical Ventilator 100 07/08/20 16:00 102 07/08/20 16:00 97.0 107 30 130/74 (92) 82 07/08/20 15:45 108 30 142/77 (98) 87 07/08/20 15:30 111 26 147/79 (101) 07/08/20 15:03 109 23 100 07/08/20 15:00 31 Mechanical Ventilator 100 07/08/20 15:00 31 114/62 Mechanical Ventilator 100 07/08/20 15:00 107 31 114/62 (79) 68 07/08/20 14:30 112 38 149/77 (101) 79 07/08/20 14:00 29 Mechanical Ventilator 100 07/08/20 14:00 29 132/74 Mechanical Ventilator 100 07/08/20 14:00 110 38 154/81 (105) 84 07/08/20 13:30 112 38 152/80 (104) 84 07/08/20 13:00 38 Mechanical Ventilator 100 07/08/20 13:00 38 154/79 Mechanical Ventilator 100 07/08/20 13:00 112 38 157/76 (103) 83 07/08/20 12:30 109 38 150/75 (100) 87 07/08/20 12:00 100.9 92 39 101/52 (68) 90 07/08/20 12:00 38 Mechanical Ventilator 100 07/08/20 12:00 38 148/79 Mechanical Ventilator 100 07/08/20 12:00 106 07/08/20 12:00 100 07/08/20 12:00 Mechanical Ventilator Mechanical Ventilator Mechanical Ventilator Mechanical Ventilator Mechanical Ventilator 07/08/20 11:43 106 36 100 07/08/20 11:30 105 34 94/55 (68) 86 07/08/20 11:00 104 33 99/53 (68) 86 07/08/20 11:00 35 Mechanical Ventilator 100 07/08/20 11:00 35 100/55 Mechanical Ventilator 100 07/08/20 10:00 101 34 98/55 (69) 86 07/08/20 10:00 34 Mechanical Ventilator 100 07/08/20 10:00 34 100/57 Mechanical Ventilator 100 07/08/20 09:30 99 30 108/56 (73) 86 Intake and Output 07/09/20 07/10/20 19:00 07:00 Intake Total 1478 ml 1562.925 ml Output Total 630 ml 480 ml Balance 848 ml 1082.925 ml Intake Free Water 180 ml 90 ml IV Total 638 ml 1032.925 ml Tube Feeding 660 ml 440 ml Output Urine Total 630 ml 480 ml Labs Test 07/07/20 23:29 07/08/20 03:50 07/09/20 03:00 07/09/20 05:38 POC Whole Blood Glucose 153 MG/DL (74-106) 160 MG/DL (74-106) White Blood Count 7.3 K/UL (4.8-10.8) 8.4 K/UL (4.8-10.8) Red Blood Count 2.90 M/UL (4.20-5.40) 2.90 M/UL (4.20-5.40) Hemoglobin 8.8 G/DL (12.0-16.0) 8.8 G/DL (12.0-16.0) Hematocrit 28.1 % (37.0-47.0) 28.1 % (37.0-47.0) Mean Corpuscular Volume 97 FL (80-99) 97 FL (80-99) Mean Corpuscular Hemoglobin 30.2 PG (27.0-31.0) 30.3 PG (27.0-31.0) Mean Corpuscular Hemoglobin Concent 31.2 G/DL (32.0-36.0) 31.3 G/DL (32.0-36.0) Red Cell Distribution Width 16.5 % (11.6-14.8) 16.6 % (11.6-14.8) Platelet Count 132 K/UL (150-450) 174 K/UL (150-450) Mean Platelet Volume 10.7 FL (6.5-10.1) 10.0 FL (6.5-10.1) Neutrophils (%) (Auto) 83.7 % (45.0-75.0) % (45.0-75.0) Lymphocytes (%) (Auto) 8.2 % (20.0-45.0) % (20.0-45.0) Monocytes (%) (Auto) 3.4 % (1.0-10.0) % (1.0-10.0) Eosinophils (%) (Auto) 3.9 % (0.0-3.0) % (0.0-3.0) Basophils (%) (Auto) 0.8 % (0.0-2.0) % (0.0-2.0) Sodium Level 140 MMOL/L (136-145) 141 MMOL/L (136-145) Potassium Level 3.9 MMOL/L (3.5-5.1) 4.0 MMOL/L (3.5-5.1) Chloride Level 103 MMOL/L (98-107) 103 MMOL/L (98-107) Carbon Dioxide Level 39 MMOL/L (21-32) 38 MMOL/L (21-32) Anion Gap -4 mmol/L (5-15) 0 mmol/L (5-15) Blood Urea Nitrogen 18 mg/dL (7-18) 17 mg/dL (7-18) Creatinine 0.4 MG/DL (0.55-1.30) 0.4 MG/DL (0.55-1.30) Estimat Glomerular Filtration Rate > 60 mL/min (>60) > 60 mL/min (>60) Glucose Level 127 MG/DL (74-106) 125 MG/DL (74-106) Calcium Level 8.0 MG/DL (8.5-10.1) 7.7 MG/DL (8.5-10.1) Differential Total Cells Counted 100 Neutrophils % (Manual) 87 % (45-75) Lymphocytes % (Manual) 5 % (20-45) Monocytes % (Manual) 6 % (1-10) Eosinophils % (Manual) 1 % (0-3) Basophils % (Manual) 1 % (0-2) Band Neutrophils 0 % (0-8) Nucleated Red Blood Cells 2 /100 WBC Platelet Estimate Adequate Platelet Morphology Normal Polychromasia 1+ Hypochromasia 2+ Anisocytosis 1+ Microcytosis Occasional Macrocytosis 1+ Phosphorus Level 3.1 MG/DL (2.5-4.9) Magnesium Level 2.2 MG/DL (1.8-2.4) Total Bilirubin 0.4 MG/DL (0.2-1.0) Aspartate Amino Transf (AST/SGOT) 54 U/L (15-37) Alanine Aminotransferase (ALT/SGPT) 45 U/L (12-78) Alkaline Phosphatase 153 U/L (46-116) C-Reactive Protein, Quantitative 13.6 mg/dL (0.00-0.90) Pro-B-Type Natriuretic Peptide 1350 pg/mL (0-125) Total Protein 5.9 G/DL (6.4-8.2) Albumin 1.0 G/DL (3.4-5.0) Globulin 4.9 g/dL Albumin/Globulin Ratio 0.2 (1.0-2.7) Height (Feet): 5 Height (Inches): 2.00 Weight (Pounds): 138 Objective Physical Exam Vitals: reviewed, abnormal - Interpreted as low by me General: GCS 15 - Sometimes slightly confused, non-toxic, mild distress Head: normocephalic, moist mucus membranes Neck: supple Respiratory: no retraction, no accessory muscle use, respiratory distress - Minimal with tachypnea, crackles Cardiovascular: regular rate, rhythm, no edema Gastrointestinal: normal inspection, non tender, soft Genitourinary: no CVA tenderness Musculoskeletal: back normal Neurologic: alert, oriented x3, grossly normal Psychiatric: mood/affect normal - sometimes confused Skin: no rash, warm/dry Jj Swann MD Jul 10, 2020 09:25
--- NOTE | 2020-07-10 10:00 | NUR ---
NURSE NOTES: setup technician is at bedside for chest xray. AM meds were administered; Lasix and Coreg were held, since pt is now on Levophed drip for hypotension, rate is now being titrated down 4mcg/min.
--- NOTE | 2020-07-10 10:26 | Pulmonology Progress Note ---
Subjective ROS Limited/Unobtainable: Yes Interval Events: Remains intubated; bilateral chest tubes in place Constitutional: Denies: fever HEENT: Repors: no symptoms Respiratory: Reports: shortness of breath Cardiovascular: Reports: no symptoms Gastrointestinal/Abdominal: Reports: no symptoms Allergies: Coded Allergies: No Known Allergies (Unverified , 06/17/20) All Systems: reviewed and negative except above Objective Last 24 Hour Vital Signs Date Time Temp Pulse Resp B/P (MAP) Pulse Ox O2 Delivery O2 Flow Rate FiO2 07/10/20 08:35 102/49 07/10/20 08:00 96 07/10/20 07:00 91 32 123/49 (73) 85 07/10/20 07:00 32 123/49 100 07/10/20 06:00 30 127/74 Mechanical Ventilator 100 07/10/20 06:00 30 Mechanical Ventilator 100 07/10/20 06:00 30 127/74 Mechanical Ventilator 100 07/10/20 06:00 98.6 85 30 127/74 (91) 86 07/10/20 05:30 83 30 134/74 (94) 88 07/10/20 05:30 96.8 07/10/20 05:00 79 28 121/74 (90) 90 07/10/20 05:00 28 121/74 Mechanical Ventilator 100 07/10/20 05:00 28 100 07/10/20 05:00 28 121/74 Mechanical Ventilator 100 07/10/20 04:30 78 30 97/54 (68) 90 07/10/20 04:00 Mechanical Ventilator Mechanical Ventilator Mechanical Ventilator Mechanical Ventilator Mechanical Ventilator 07/10/20 04:00 78 29 94/52 (66) 91 07/10/20 04:00 100 07/10/20 04:00 78 07/10/20 04:00 29 94/52 Mechanical Ventilator 100 07/10/20 04:00 29 Mechanical Ventilator 100 07/10/20 04:00 29 94/52 Mechanical Ventilator 100 07/10/20 03:30 77 29 97/58 (71) 91 07/10/20 03:10 79 32 100 07/10/20 03:00 73 24 108/59 (75) 91 07/10/20 03:00 24 108/59 Mechanical Ventilator 100 07/10/20 03:00 28 Mechanical Ventilator 100 07/10/20 03:00 24 108/59 Mechanical Ventilator 100 07/10/20 02:00 74 28 93/61 (72) 94 07/10/20 02:00 28 93/61 Mechanical Ventilator 100 07/10/20 02:00 28 Mechanical Ventilator 100 07/10/20 02:00 28 93/61 Mechanical Ventilator 100 07/10/20 01:30 78 29 86/49 (61) 94 07/10/20 01:00 77 30 82/48 (59) 91 07/10/20 01:00 30 82/48 Mechanical Ventilator 100 07/10/20 01:00 30 Mechanical Ventilator 100 07/10/20 01:00 30 82/48 Mechanical Ventilator 100 07/10/20 00:30 78 32 108/66 (80) 93 07/10/20 00:00 79 31 83/48 (60) 91 07/10/20 00:00 Mechanical Ventilator Mechanical Ventilator Mechanical Ventilator Mechanical Ventilator Mechanical Ventilator 07/10/20 00:00 74/46 07/10/20 00:00 31 83/48 Mechanical Ventilator 100 07/10/20 00:00 31 Mechanical Ventilator 100 07/10/20 00:00 31 83/48 Mechanical Ventilator 100 07/09/20 23:30 77 29 74/46 (55) 89 07/09/20 23:10 79 30 100 07/09/20 23:00 28 74/47 Mechanical Ventilator 100 07/09/20 23:00 28 Mechanical Ventilator 100 07/09/20 23:00 28 74/47 Mechanical Ventilator 100 07/09/20 23:00 80 28 74/47 (56) 89 07/09/20 22:30 87 29 83/49 (60) 90 07/09/20 22:00 91 28 89/56 (67) 89 07/09/20 22:00 28 89/56 100 07/09/20 22:00 28 Mechanical Ventilator 100 07/09/20 22:00 31 120/69 Mechanical Ventilator 100 07/09/20 22:00 96 120/69 07/09/20 21:30 95 25 112/62 (79) 84 07/09/20 21:00 97 34 139/75 (96) 81 07/09/20 21:00 31 Mechanical Ventilator 100 07/09/20 21:00 31 120/69 Mechanical Ventilator 100 07/09/20 20:30 97 33 131/71 (91) 81 07/09/20 20:00 Mechanical Ventilator Mechanical Ventilator Mechanical Ventilator Mechanical Ventilator Mechanical Ventilator 07/09/20 20:00 100 07/09/20 20:00 96.8 97 34 139/75 (96) 81 07/09/20 20:00 33 Mechanical Ventilator 100 07/09/20 20:00 33 134/71 Mechanical Ventilator 100 07/09/20 20:00 97 07/09/20 19:30 98 31 142/72 (95) 83 07/09/20 19:00 98 34 159/76 (103) 81 07/09/20 19:00 35 Mechanical Ventilator 100 07/09/20 19:00 35 151/76 Mechanical Ventilator 100 07/09/20 19:00 100 36 100 07/09/20 18:30 97 35 165/81 (109) 82 07/09/20 18:30 98.0 07/09/20 18:00 35 Mechanical Ventilator 100.0 100 07/09/20 18:00 30 165/81 Mechanical Ventilator 100 07/09/20 18:00 95 32 125/74 (91) 89 07/09/20 17:00 32 Mechanical Ventilator 100 07/09/20 17:00 32 127/67 Mechanical Ventilator 100 07/09/20 17:00 94 30 138/72 (94) 77 07/09/20 16:00 100 07/09/20 16:00 98.0 93 27 114/64 (81) 89 07/09/20 16:00 29 Mechanical Ventilator 100 07/09/20 16:00 29 125/73 Mechanical Ventilator 100 07/09/20 16:00 Mechanical Ventilator Mechanical Ventilator Mechanical Ventilator Mechanical Ventilator Mechanical Ventilator 07/09/20 16:00 94 07/09/20 15:30 91 26 121/62 (81) 91 07/09/20 15:03 89 32 100 07/09/20 15:00 33 Mechanical Ventilator 100 07/09/20 15:00 33 127/69 Mechanical Ventilator 100 07/09/20 15:00 94 30 137/68 (91) 88 07/09/20 14:00 33 Mechanical Ventilator 100 07/09/20 14:00 33 136/78 Mechanical Ventilator 100 07/09/20 14:00 96 33 151/73 (99) 89 07/09/20 13:30 96 33 136/79 (98) 89 07/09/20 13:00 95 32 145/74 (97) 89 07/09/20 13:00 34 Mechanical Ventilator 100 07/09/20 13:00 34 165/82 Mechanical Ventilator 100 07/09/20 12:30 100 33 156/83 (107) 86 07/09/20 12:00 97.9 104 37 159/87 (111) 84 07/09/20 12:00 100 07/09/20 12:00 Mechanical Ventilator Mechanical Ventilator Mechanical Ventilator Mechanical Ventilator Mechanical Ventilator 07/09/20 12:00 36 Mechanical Ventilator 100 07/09/20 12:00 36 159/77 Mechanical Ventilator 100 07/09/20 11:43 103 07/09/20 11:14 102 38 100 07/09/20 11:00 38 Mechanical Ventilator 100 07/09/20 11:00 38 153/81 Mechanical Ventilator 100 07/09/20 11:00 103 38 156/79 (104) 84 07/09/20 10:30 104 38 159/79 (105) 87 Intake and Output 07/09/20 07/10/20 19:00 07:00 Intake Total 1478 ml 1562.925 ml Output Total 630 ml 480 ml Balance 848 ml 1082.925 ml Intake Free Water 180 ml 90 ml IV Total 638 ml 1032.925 ml Tube Feeding 660 ml 440 ml Output Urine Total 630 ml 480 ml General Appearance: no acute distress HEENT: atraumatic Respiratory: crackles/rales Cardiovascular: normal rate Abdomen: soft, non tender Current Medications Medications (Trade) Dose Ordered Sig/Maya Route PRN Reason Start Time Stop Time Status Last Admin Dose Admin Acetaminophen (Tylenol) 500 mg Q4H PRN ORAL Mild Pain (Pain Scale 1-3) 06/18/20 00:15 07/18/20 00:14 06/24/20 17:51 Acetaminophen (Tylenol) 500 mg Q4H PRN ORAL Temp >100.5 06/18/20 00:15 07/18/20 00:14 06/29/20 20:01 Carvedilol (Coreg) 6.25 mg EVERY 12 HOURS ORAL 06/22/20 21:00 07/22/20 20:59 07/09/20 22:00 Chlorhexidine Gluconate (Sissy-Hex 2%) 1 applic DAILY@1999 TOPIC 06/28/20 20:00 09/26/20 19:59 07/09/20 20:00 Dextrose (Dextrose 50%) 25 ml Q30M PRN IV Hypoglycemia 06/18/20 14:15 09/16/20 14:14 Dextrose (Dextrose 50%) 50 ml Q30M PRN IV Hypoglycemia 06/18/20 14:15 09/16/20 14:14 Docusate Sodium (Colace) 100 mg EVERY 8 HOURS NG 07/02/20 14:00 07/28/20 12:59 07/09/20 05:19 Famotidine (Pepcid I.v.) 20 mg BID IVP 07/10/20 09:00 08/09/20 08:59 07/10/20 08:49 Fentanyl Citrate 1000 mcg/Sodium Chloride 120 ml @ 0 mls/hr Q24H PRN IV SEDATION 07/09/20 21:00 07/11/20 20:59 07/09/20 22:00 Furosemide (Lasix) 40 mg DAILY IV 06/28/20 17:45 07/28/20 16:59 07/09/20 10:13 Haloperidol Lactate (Haldol) 10 mg Q6H PRN IM Agitation 06/23/20 11:30 08/07/20 11:29 06/23/20 11:34 Insulin Aspart (NovoLOG) while NPO Q6HR SUBQ 06/18/20 18:00 09/16/20 17:59 07/10/20 00:00 Midazolam HCl 100 ml @ 0 mls/hr Q24H PRN IV SEDATION 07/08/20 07:45 07/10/20 14:59 07/10/20 05:00 Midazolam HCl 100 ml @ 0 mls/hr Q24H PRN IV SEDATION 07/10/20 15:00 07/12/20 14:59 Norepinephrine Bitartrate 250 ml @ 7.5 mls/hr Q24H IV 07/10/20 00:00 07/12/20 23:50 07/10/20 08:35 Sodium Chloride 1,000 ml @ 50 mls/hr Q20H IV 06/26/20 08:00 07/26/20 07:59 07/10/20 08:35 Vitamin D (Vitamin D) 2,000 unit DAILY GT 06/29/20 10:30 07/29/20 10:29 07/10/20 08:34 Assessment/Plan Assessment/Plan 1. COVID-19 pneumonia -Intubated, on 100% FiO2. PEEP 5-10. -SaO2 86% -On Decadron, s/p remdesivir 2. Leukocytosis -Resolved 3. Elevated D-dimer -On Lovenox 40 subcu QD for DVT prophylaxis 4. Renal insufficiency -Improved 5. Anemia of chronic disease -Hematology oncology following 6. Sepsis -Status post antibiotics, fluid resuscitation 7. Pneumothorax 06/22/20 - b/l subcutaneous emphysema, pneumomediastinum, probable small left pneumothorax & ? trace right pneumothorax. -Pleur-ev[place] in place - placed CT by surgery (bilateral) - Will attempt wean when FiO2 decreases - CXR shows R PTX; will advise CT surgery to adjust R CT Discussed with son Now DNAR SaO2 87% on 100% FiO2 and PEEP 12 Grave prognosis Family not ready for withdrawl of care Discussed with son (jim) in great detail Charlie Sewell MD Jul 10, 2020 10:26
--- NOTE | 2020-07-10 11:11 | Infectious Diseases Prog Note ---
Assessment/Plan Assessment/Plan A; Sepsis COVID19 pneumonia Hypoxic respiratory failure Acute kidney injury, resolving Hyperglycemia, DM type 2 Bilateral pneumothorax Leukocytosis resolved Anemia Hypotension P; Finished Remdesivir & Dexamethasone course Poor prognosis, DNR status Subjective ROS Limited/Unobtainable: Yes Cardiovascular: Reports: other - hypotensive, started on Levophed Allergies: Coded Allergies: No Known Allergies (Unverified , 06/17/20) Objective Last 24 Hour Vital Signs Date Time Temp Pulse Resp B/P (MAP) Pulse Ox O2 Delivery O2 Flow Rate FiO2 07/10/20 11:00 91 32 95/50 (65) 87 07/10/20 10:30 89 30 89/49 (62) 90 07/10/20 10:00 90 30 132/62 (85) 92 07/10/20 09:45 87 28 141/65 (90) 92 07/10/20 09:30 90 33 152/77 (102) 88 07/10/20 09:00 88 33 149/76 (100) 90 07/10/20 08:35 102/49 07/10/20 08:30 91 33 140/63 (88) 89 07/10/20 08:00 100 07/10/20 08:00 96 07/10/20 08:00 98.0 95 32 101/46 (64) 88 07/10/20 07:00 91 32 123/49 (73) 85 07/10/20 07:00 32 123/49 100 07/10/20 06:00 30 127/74 Mechanical Ventilator 100 07/10/20 06:00 30 Mechanical Ventilator 100 07/10/20 06:00 30 127/74 Mechanical Ventilator 100 07/10/20 06:00 98.6 85 30 127/74 (91) 86 07/10/20 05:30 83 30 134/74 (94) 88 07/10/20 05:30 96.8 07/10/20 05:00 79 28 121/74 (90) 90 07/10/20 05:00 28 121/74 Mechanical Ventilator 100 07/10/20 05:00 28 100 07/10/20 05:00 28 121/74 Mechanical Ventilator 100 07/10/20 04:30 78 30 97/54 (68) 90 07/10/20 04:00 Mechanical Ventilator Mechanical Ventilator Mechanical Ventilator Mechanical Ventilator Mechanical Ventilator 07/10/20 04:00 78 29 94/52 (66) 91 07/10/20 04:00 100 07/10/20 04:00 78 07/10/20 04:00 29 94/52 Mechanical Ventilator 100 07/10/20 04:00 29 Mechanical Ventilator 100 07/10/20 04:00 29 94/52 Mechanical Ventilator 100 07/10/20 03:30 77 29 97/58 (71) 91 07/10/20 03:10 79 32 100 07/10/20 03:00 73 24 108/59 (75) 91 07/10/20 03:00 24 108/59 Mechanical Ventilator 100 07/10/20 03:00 28 Mechanical Ventilator 100 07/10/20 03:00 24 108/59 Mechanical Ventilator 100 07/10/20 02:00 74 28 93/61 (72) 94 07/10/20 02:00 28 93/61 Mechanical Ventilator 100 07/10/20 02:00 28 Mechanical Ventilator 100 07/10/20 02:00 28 93/61 Mechanical Ventilator 100 07/10/20 01:30 78 29 86/49 (61) 94 07/10/20 01:00 77 30 82/48 (59) 91 07/10/20 01:00 30 82/48 Mechanical Ventilator 100 07/10/20 01:00 30 Mechanical Ventilator 100 07/10/20 01:00 30 82/48 Mechanical Ventilator 100 07/10/20 00:30 78 32 108/66 (80) 93 07/10/20 00:00 79 31 83/48 (60) 91 07/10/20 00:00 Mechanical Ventilator Mechanical Ventilator Mechanical Ventilator Mechanical Ventilator Mechanical Ventilator 07/10/20 00:00 74/46 07/10/20 00:00 31 83/48 Mechanical Ventilator 100 07/10/20 00:00 31 Mechanical Ventilator 100 07/10/20 00:00 31 83/48 Mechanical Ventilator 100 07/09/20 23:30 77 29 74/46 (55) 89 07/09/20 23:10 79 30 100 07/09/20 23:00 28 74/47 Mechanical Ventilator 100 07/09/20 23:00 28 Mechanical Ventilator 100 07/09/20 23:00 28 74/47 Mechanical Ventilator 100 07/09/20 23:00 80 28 74/47 (56) 89 07/09/20 22:30 87 29 83/49 (60) 90 07/09/20 22:00 91 28 89/56 (67) 89 07/09/20 22:00 28 89/56 100 07/09/20 22:00 28 Mechanical Ventilator 100 07/09/20 22:00 31 120/69 Mechanical Ventilator 100 1821 22:00 96 120/69 07/09/20 21:30 95 25 112/62 (79) 84 07/09/20 21:00 97 34 139/75 (96) 81 07/09/20 21:00 31 Mechanical Ventilator 100 07/09/20 21:00 31 120/69 Mechanical Ventilator 100 07/09/20 20:30 97 33 131/71 (91) 81 07/09/20 20:00 Mechanical Ventilator Mechanical Ventilator Mechanical Ventilator Mechanical Ventilator Mechanical Ventilator 07/09/20 20:00 100 07/09/20 20:00 96.8 97 34 139/75 (96) 81 07/09/20 20:00 33 Mechanical Ventilator 100 07/09/20 20:00 33 134/71 Mechanical Ventilator 100 07/09/20 20:00 97 07/09/20 19:30 98 31 142/72 (95) 83 07/09/20 19:00 98 34 159/76 (103) 81 07/09/20 19:00 35 Mechanical Ventilator 100 07/09/20 19:00 35 151/76 Mechanical Ventilator 100 07/09/20 19:00 100 36 100 07/09/20 18:30 97 35 165/81 (109) 82 07/09/20 18:30 98.0 07/09/20 18:00 35 Mechanical Ventilator 100.0 100 07/09/20 18:00 30 165/81 Mechanical Ventilator 100 07/09/20 18:00 95 32 125/74 (91) 89 07/09/20 17:00 32 Mechanical Ventilator 100 07/09/20 17:00 32 127/67 Mechanical Ventilator 100 07/09/20 17:00 94 30 138/72 (94) 77 07/09/20 16:00 100 07/09/20 16:00 98.0 93 27 114/64 (81) 89 07/09/20 16:00 29 Mechanical Ventilator 100 07/09/20 16:00 29 125/73 Mechanical Ventilator 100 07/09/20 16:00 Mechanical Ventilator Mechanical Ventilator Mechanical Ventilator Mechanical Ventilator Mechanical Ventilator 07/09/20 16:00 94 2/18/21 15:30 91 26 121/62 (81) 91 07/09/20 15:03 89 32 100 07/09/20 15:00 33 Mechanical Ventilator 100 07/09/20 15:00 33 127/69 Mechanical Ventilator 100 07/09/20 15:00 94 30 137/68 (91) 88 07/09/20 14:00 33 Mechanical Ventilator 100 07/09/20 14:00 33 136/78 Mechanical Ventilator 100 07/09/20 14:00 96 33 151/73 (99) 89 07/09/20 13:30 96 33 136/79 (98) 89 07/09/20 13:00 95 32 145/74 (97) 89 07/09/20 13:00 34 Mechanical Ventilator 100 07/09/20 13:00 34 165/82 Mechanical Ventilator 100 07/09/20 12:30 100 33 156/83 (107) 86 07/09/20 12:00 97.9 104 37 159/87 (111) 84 07/09/20 12:00 100 07/09/20 12:00 Mechanical Ventilator Mechanical Ventilator Mechanical Ventilator Mechanical Ventilator Mechanical Ventilator 07/09/20 12:00 36 Mechanical Ventilator 100 07/09/20 12:00 36 159/77 Mechanical Ventilator 100 07/09/20 11:43 103 07/09/20 11:14 102 38 100 Height (Feet): 5 Height (Inches): 2.00 Weight (Pounds): 138 HEENT: other - orally intubated Respiratory/Chest: other - on ventilator, SIX1=275%, bilateral chest tubes Cardiovascular: normal rate, other - PICC line Abdomen: soft, non tender Extremities: other - edema Skin: other - sedated Current Medications Medications (Trade) Dose Ordered Sig/Maya Route PRN Reason Start Time Stop Time Status Last Admin Dose Admin Acetaminophen (Tylenol) 500 mg Q4H PRN ORAL Mild Pain (Pain Scale 1-3) 06/18/20 00:15 07/18/20 00:14 06/24/20 17:51 Acetaminophen (Tylenol) 500 mg Q4H PRN ORAL Temp >100.5 06/18/20 00:15 07/18/20 00:14 06/29/20 20:01 Carvedilol (Coreg) 6.25 mg EVERY 12 HOURS ORAL 06/22/20 21:00 3/3/21 20:59 07/09/20 22:00 Chlorhexidine Gluconate (Sissy-Hex 2%) 1 applic DAILY@2000 TOPIC 06/28/20 20:00 09/26/20 19:59 07/09/20 20:00 Dextrose (Dextrose 50%) 25 ml Q30M PRN IV Hypoglycemia 06/18/20 14:15 09/16/20 14:14 Dextrose (Dextrose 50%) 50 ml Q30M PRN IV Hypoglycemia 06/18/20 14:15 09/16/20 14:14 Docusate Sodium (Colace) 100 mg EVERY 8 HOURS NG 07/02/20 14:00 07/28/20 12:59 07/09/20 05:19 Famotidine (Pepcid I.v.) 20 mg BID IVP 07/10/20 09:00 08/09/20 08:59 07/10/20 08:49 Fentanyl Citrate 1000 mcg/Sodium Chloride 120 ml @ 0 mls/hr Q24H PRN IV SEDATION 07/09/20 21:00 07/11/20 20:59 07/09/20 22:00 Furosemide (Lasix) 40 mg DAILY IV 06/28/20 17:45 07/28/20 16:59 07/09/20 10:13 Haloperidol Lactate (Haldol) 10 mg Q6H PRN IM Agitation 06/23/20 11:30 08/07/20 11:29 06/23/20 11:34 Insulin Aspart (NovoLOG) while NPO Q6HR SUBQ 06/18/20 18:00 09/16/20 17:59 07/10/20 00:00 Midazolam HCl 100 ml @ 0 mls/hr Q24H PRN IV SEDATION 07/08/20 07:45 07/10/20 14:59 07/10/20 05:00 Midazolam HCl 100 ml @ 0 mls/hr Q24H PRN IV SEDATION 07/10/20 15:00 07/12/20 14:59 Norepinephrine Bitartrate 250 ml @ 7.5 mls/hr Q24H IV 07/10/20 00:00 07/12/20 23:50 07/10/20 08:35 Sodium Chloride 1,000 ml @ 50 mls/hr Q20H IV 06/26/20 08:00 07/26/20 07:59 07/10/20 08:35 Vitamin D (Vitamin D) 2,000 unit DAILY GT 06/29/20 10:30 07/29/20 10:29 07/10/20 08:34 Raji Turpin MD Jul 10, 2020 11:11
--- NOTE | 2020-07-10 12:00 | NUR ---
NURSE NOTES: Accucheck blood [id number], covered with Novolog 2 units/per sliding scale. Afebrile while maintained on cooling blanket. -2 light sedation/RASS score while on Fentanyl and Versed drips. Levophed drip is now 4mcg/min to maintain SBP above 90bpm. Oral care done and pt suctioned (minimal secretions noted). RT now at bedside to lavage ETT.
--- NOTE | 2020-07-10 12:45 | Surgery Progress Note ---
Surgery Progress Note Subjective Procedure Performed 1. right chest tube insertion 2. left chest tube insertion Additional Comments ptx improved on cxr today minimal apical labs noted ill appearing on high support Objective Last 24 Hour Vital Signs Date Time Temp Pulse Resp B/P (MAP) Pulse Ox O2 Delivery O2 Flow Rate FiO2 07/10/20 11:28 94 32 100 07/10/20 11:00 32 92/48 100 07/10/20 11:00 32 Mechanical Ventilator 100 07/10/20 11:00 91 32 95/50 (65) 87 07/10/20 10:30 89 30 89/49 (62) 90 07/10/20 10:00 30 132/62 Mechanical Ventilator 100 07/10/20 10:00 30 Mechanical Ventilator 100 07/10/20 10:00 90 30 132/62 (85) 92 07/10/20 09:45 87 28 141/65 (90) 92 07/10/20 09:30 90 33 152/77 (102) 88 07/10/20 09:00 33 149/76 Mechanical Ventilator 100 07/10/20 09:00 33 Mechanical Ventilator 100 07/10/20 09:00 88 33 149/76 (100) 90 07/10/20 08:35 102/49 07/10/20 08:30 91 33 140/63 (88) 89 07/10/20 08:00 Mechanical Ventilator Mechanical Ventilator Mechanical Ventilator Mechanical Ventilator Mechanical Ventilator 07/10/20 08:00 100 07/10/20 08:00 96 07/10/20 08:00 32 101/46 Mechanical Ventilator 100 07/10/20 08:00 32 Mechanical Ventilator 100 07/10/20 08:00 98.0 95 32 101/46 (64) 88 07/10/20 07:10 86 35 100 07/10/20 07:00 91 32 123/49 (73) 85 07/10/20 07:00 32 123/49 100 07/10/20 07:00 32 Mechanical Ventilator 100 07/10/20 06:00 30 127/74 Mechanical Ventilator 100 07/10/20 06:00 30 Mechanical Ventilator 100 07/10/20 06:00 30 127/74 Mechanical Ventilator 100 07/10/20 06:00 98.6 85 30 127/74 (91) 86 07/10/20 05:30 83 30 134/74 (94) 88 07/10/20 05:30 96.8 07/10/20 05:00 79 28 121/74 (90) 90 07/10/20 05:00 28 121/74 Mechanical Ventilator 100 07/10/20 05:00 28 100 07/10/20 05:00 28 121/74 Mechanical Ventilator 100 07/10/20 04:30 78 30 97/54 (68) 90 07/10/20 04:00 Mechanical Ventilator Mechanical Ventilator Mechanical Ventilator Mechanical Ventilator Mechanical Ventilator 07/10/20 04:00 78 29 94/52 (66) 91 07/10/20 04:00 100 07/10/20 04:00 78 07/10/20 04:00 29 94/52 Mechanical Ventilator 100 07/10/20 04:00 29 Mechanical Ventilator 100 07/10/20 04:00 29 94/52 Mechanical Ventilator 100 07/10/20 03:30 77 29 97/58 (71) 91 07/10/20 03:10 79 32 100 07/10/20 03:00 73 24 108/59 (75) 91 07/10/20 03:00 24 108/59 Mechanical Ventilator 100 07/10/20 03:00 28 Mechanical Ventilator 100 07/10/20 03:00 24 108/59 Mechanical Ventilator 100 07/10/20 02:00 74 28 93/61 (72) 94 07/10/20 02:00 28 93/61 Mechanical Ventilator 100 07/10/20 02:00 28 Mechanical Ventilator 100 07/10/20 02:00 28 93/61 Mechanical Ventilator 100 07/10/20 01:30 78 29 86/49 (61) 94 07/10/20 01:00 77 30 82/48 (59) 91 07/10/20 01:00 30 82/48 Mechanical Ventilator 100 07/10/20 01:00 30 Mechanical Ventilator 100 07/10/20 01:00 30 82/48 Mechanical Ventilator 100 07/10/20 00:30 78 32 108/66 (80) 93 07/10/20 00:00 79 31 83/48 (60) 91 07/10/20 00:00 Mechanical Ventilator Mechanical Ventilator Mechanical Ventilator Mechanical Ventilator Mechanical Ventilator 07/10/20 00:00 74/46 07/10/20 00:00 31 83/48 Mechanical Ventilator 100 07/10/20 00:00 31 Mechanical Ventilator 100 07/10/20 00:00 31 83/48 Mechanical Ventilator 100 07/09/20 23:30 77 29 74/46 (55) 89 07/09/20 23:10 79 30 100 07/09/20 23:00 28 74/47 Mechanical Ventilator 100 07/09/20 23:00 28 Mechanical Ventilator 100 07/09/20 23:00 28 74/47 Mechanical Ventilator 100 07/09/20 23:00 80 28 74/47 (56) 89 07/09/20 22:30 87 29 83/49 (60) 90 07/09/20 22:00 91 28 89/56 (67) 89 1821 22:00 28 89/56 100 07/09/20 22:00 28 Mechanical Ventilator 100 07/09/20 22:00 31 120/69 Mechanical Ventilator 100 07/09/20 22:00 96 120/69 07/09/20 21:30 95 25 112/62 (79) 84 07/09/20 21:00 97 34 139/75 (96) 81 07/09/20 21:00 31 Mechanical Ventilator 100 07/09/20 21:00 31 120/69 Mechanical Ventilator 100 07/09/20 20:30 97 33 131/71 (91) 81 07/09/20 20:00 Mechanical Ventilator Mechanical Ventilator Mechanical Ventilator Mechanical Ventilator Mechanical Ventilator 07/09/20 20:00 100 07/09/20 20:00 96.8 97 34 139/75 (96) 81 07/09/20 20:00 33 Mechanical Ventilator 100 07/09/20 20:00 33 134/71 Mechanical Ventilator 100 07/09/20 20:00 97 07/09/20 19:30 98 31 142/72 (95) 83 07/09/20 19:00 98 34 159/76 (103) 81 21 19:00 35 Mechanical Ventilator 100 07/09/20 19:00 35 151/76 Mechanical Ventilator 100 07/09/20 19:00 100 36 100 07/09/20 18:30 97 35 165/81 (109) 82 07/09/20 18:30 98.0 07/09/20 18:00 35 Mechanical Ventilator 100.0 100 07/09/20 18:00 30 165/81 Mechanical Ventilator 100 21 18:00 95 32 125/74 (91) 89 07/09/20 17:00 32 Mechanical Ventilator 100 2/18/21 17:00 32 127/67 Mechanical Ventilator 100 07/09/20 17:00 94 30 138/72 (94) 77 07/09/20 16:00 100 07/09/20 16:00 98.0 93 27 114/64 (81) 89 07/09/20 16:00 29 Mechanical Ventilator 100 07/09/20 16:00 29 125/73 Mechanical Ventilator 100 07/09/20 16:00 Mechanical Ventilator Mechanical Ventilator Mechanical Ventilator Mechanical Ventilator Mechanical Ventilator 07/09/20 16:00 94 07/09/20 15:30 91 26 121/62 (81) 91 07/09/20 15:03 89 32 100 07/09/20 15:00 33 Mechanical Ventilator 100 07/09/20 15:00 33 127/69 Mechanical Ventilator 100 07/09/20 15:00 94 30 137/68 (91) 88 07/09/20 14:00 33 Mechanical Ventilator 100 07/09/20 14:00 33 136/78 Mechanical Ventilator 100 07/09/20 14:00 96 33 151/73 (99) 89 07/09/20 13:30 96 33 136/79 (98) 89 07/09/20 13:00 95 32 145/74 (97) 89 07/09/20 13:00 34 Mechanical Ventilator 100 07/09/20 13:00 34 165/82 Mechanical Ventilator 100 I&O Intake and Output 07/09/20 07/10/20 19:00 07:00 Intake Total 1478 ml 1572.925 ml Output Total 630 ml 480 ml Balance 848 ml 1092.925 ml Intake Free Water 180 ml 90 ml IV Total 638 ml 1042.925 ml Tube Feeding 660 ml 440 ml Output Urine Total 630 ml 480 ml Drains: other Cardiovascular: RSR Respiratory: decreased breath sounds Abdomen: soft, non-tender, present bowel sounds, decreased bowel sounds Extremities: no tenderness, no cyanosis Plan Problems: (1) Renal insufficiency (2) Elevated d-dimer (3) Dehydration (4) LEONARDO (acute kidney injury) (5) DMII (diabetes mellitus, type 2) (6) Hypoxia (7) Pneumonia due to COVID-19 virus (8) PNA (pneumonia) (9) Pneumothorax Assessment & Plan: Bilateral pneumothorax status post bilateral chest tubes. Still on significant vent support. leak performed. Continue weaning vent. Continue with chest tubes. Will monitor and manage chest tubes accordingly. Thank you for let me to participate in patient's care Continue bilateral chest tubes on suction the airleak is worse her peak pressures are high prognosis overall is guarded. Imaging reviewed Bilateral air leaks noted high pressures continue chest tube suction recurrent right ptx tube fixed imaging pleuravac fixed tubes functional Unfortunately patient continues to be very ill on vent support with bilateral chest tubes in place. She continues to reaccumulate pneumothorax as this type functional tubes. Occasionally tubes or Pleur-evac needs to be changed and immediately shows improvement but then again declines. Prognosis is very guarded. We will continue to follow thank you for let me participate in patient's care Elpidio Frazier Jul 10, 2020 12:45
--- NOTE | 2020-07-10 13:06 | General Progress Note ---
Subjective ROS Limited/Unobtainable: Yes Allergies: Coded Allergies: No Known Allergies (Unverified , 06/17/20) Objective Last 24 Hour Vital Signs Date Time Temp Pulse Resp B/P (MAP) Pulse Ox O2 Delivery O2 Flow Rate FiO2 07/10/20 11:28 94 32 100 07/10/20 11:00 32 92/48 100 07/10/20 11:00 32 Mechanical Ventilator 100 07/10/20 11:00 91 32 95/50 (65) 87 07/10/20 10:30 89 30 89/49 (62) 90 07/10/20 10:00 30 132/62 Mechanical Ventilator 100 07/10/20 10:00 30 Mechanical Ventilator 100 07/10/20 10:00 90 30 132/62 (85) 92 07/10/20 09:45 87 28 141/65 (90) 92 07/10/20 09:30 90 33 152/77 (102) 88 07/10/20 09:00 33 149/76 Mechanical Ventilator 100 07/10/20 09:00 33 Mechanical Ventilator 100 07/10/20 09:00 88 33 149/76 (100) 90 07/10/20 08:35 102/49 07/10/20 08:30 91 33 140/63 (88) 89 07/10/20 08:00 Mechanical Ventilator Mechanical Ventilator Mechanical Ventilator Mechanical Ventilator Mechanical Ventilator 07/10/20 08:00 100 07/10/20 08:00 96 07/10/20 08:00 32 101/46 Mechanical Ventilator 100 07/10/20 08:00 32 Mechanical Ventilator 100 07/10/20 08:00 98.0 95 32 101/46 (64) 88 07/10/20 07:10 86 35 100 07/10/20 07:00 91 32 123/49 (73) 85 07/10/20 07:00 32 123/49 100 07/10/20 07:00 32 Mechanical Ventilator 100 07/10/20 06:00 30 127/74 Mechanical Ventilator 100 07/10/20 06:00 30 Mechanical Ventilator 100 07/10/20 06:00 30 127/74 Mechanical Ventilator 100 07/10/20 06:00 98.6 85 30 127/74 (91) 86 07/10/20 05:30 83 30 134/74 (94) 88 07/10/20 05:30 96.8 07/10/20 05:00 79 28 121/74 (90) 90 07/10/20 05:00 28 121/74 Mechanical Ventilator 100 07/10/20 05:00 28 100 07/10/20 05:00 28 121/74 Mechanical Ventilator 100 07/10/20 04:30 78 30 97/54 (68) 90 07/10/20 04:00 Mechanical Ventilator Mechanical Ventilator Mechanical Ventilator Mechanical Ventilator Mechanical Ventilator 07/10/20 04:00 78 29 94/52 (66) 91 07/10/20 04:00 100 07/10/20 04:00 78 07/10/20 04:00 29 94/52 Mechanical Ventilator 100 07/10/20 04:00 29 Mechanical Ventilator 100 07/10/20 04:00 29 94/52 Mechanical Ventilator 100 07/10/20 03:30 77 29 97/58 (71) 91 07/10/20 03:10 79 32 100 07/10/20 03:00 73 24 108/59 (75) 91 07/10/20 03:00 24 108/59 Mechanical Ventilator 100 07/10/20 03:00 28 Mechanical Ventilator 100 07/10/20 03:00 24 108/59 Mechanical Ventilator 100 07/10/20 02:00 74 28 93/61 (72) 94 07/10/20 02:00 28 93/61 Mechanical Ventilator 100 07/10/20 02:00 28 Mechanical Ventilator 100 07/10/20 02:00 28 93/61 Mechanical Ventilator 100 07/10/20 01:30 78 29 86/49 (61) 94 07/10/20 01:00 77 30 82/48 (59) 91 07/10/20 01:00 30 82/48 Mechanical Ventilator 100 07/10/20 01:00 30 Mechanical Ventilator 100 07/10/20 01:00 30 82/48 Mechanical Ventilator 100 07/10/20 00:30 78 32 108/66 (80) 93 07/10/20 00:00 79 31 83/48 (60) 91 07/10/20 00:00 Mechanical Ventilator Mechanical Ventilator Mechanical Ventilator Mechanical Ventilator Mechanical Ventilator 07/10/20 00:00 74/46 07/10/20 00:00 31 83/48 Mechanical Ventilator 100 07/10/20 00:00 31 Mechanical Ventilator 100 07/10/20 00:00 31 83/48 Mechanical Ventilator 100 07/09/20 23:30 77 29 74/46 (55) 89 07/09/20 23:10 79 30 100 07/09/20 23:00 28 74/47 Mechanical Ventilator 100 07/09/20 23:00 28 Mechanical Ventilator 100 07/09/20 23:00 28 74/47 Mechanical Ventilator 100 07/09/20 23:00 80 28 74/47 (56) 89 07/09/20 22:30 87 29 83/49 (60) 90 07/09/20 22:00 91 28 89/56 (67) 89 1821 22:00 28 89/56 100 07/09/20 22:00 28 Mechanical Ventilator 100 07/09/20 22:00 31 120/69 Mechanical Ventilator 100 07/09/20 22:00 96 120/69 07/09/20 21:30 95 25 112/62 (79) 84 07/09/20 21:00 97 34 139/75 (96) 81 18 21:00 31 Mechanical Ventilator 100 07/09/20 21:00 31 120/69 Mechanical Ventilator 100 07/09/20 20:30 97 33 131/71 (91) 81 07/09/20 20:00 Mechanical Ventilator Mechanical Ventilator Mechanical Ventilator Mechanical Ventilator Mechanical Ventilator 07/09/20 20:00 100 07/09/20 20:00 96.8 97 34 139/75 (96) 81 07/09/20 20:00 33 Mechanical Ventilator 100 07/09/20 20:00 33 134/71 Mechanical Ventilator 100 07/09/20 20:00 97 18 19:30 98 31 142/72 (95) 83 07/09/20 19:00 98 34 159/76 (103) 81 07/09/20 19:00 35 Mechanical Ventilator 100 07/09/20 19:00 35 151/76 Mechanical Ventilator 100 21 19:00 100 36 100 07/09/20 18:30 97 35 165/81 (109) 82 18 18:30 98.0 07/09/20 18:00 35 Mechanical Ventilator 100.0 100 18 18:00 30 165/81 Mechanical Ventilator 100 18 18:00 95 32 125/74 (91) 89 07/09/20 17:00 32 Mechanical Ventilator 100 07/09/20 17:00 32 127/67 Mechanical Ventilator 100 07/09/20 17:00 94 30 138/72 (94) 77 07/09/20 16:00 100 07/09/20 16:00 98.0 93 27 114/64 (81) 89 07/09/20 16:00 29 Mechanical Ventilator 100 07/09/20 16:00 29 125/73 Mechanical Ventilator 100 07/09/20 16:00 Mechanical Ventilator Mechanical Ventilator Mechanical Ventilator Mechanical Ventilator Mechanical Ventilator 07/09/20 16:00 94 07/09/20 15:30 91 26 121/62 (81) 91 07/09/20 15:03 89 32 100 07/09/20 15:00 33 Mechanical Ventilator 100 07/09/20 15:00 33 127/69 Mechanical Ventilator 100 07/09/20 15:00 94 30 137/68 (91) 88 07/09/20 14:00 33 Mechanical Ventilator 100 07/09/20 14:00 33 136/78 Mechanical Ventilator 100 07/09/20 14:00 96 33 151/73 (99) 89 07/09/20 13:30 96 33 136/79 (98) 89 Intake and Output 07/09/20 07/10/20 19:00 07:00 Intake Total 1478 ml 1572.925 ml Output Total 630 ml 480 ml Balance 848 ml 1092.925 ml Intake Free Water 180 ml 90 ml IV Total 638 ml 1042.925 ml Tube Feeding 660 ml 440 ml Output Urine Total 630 ml 480 ml Height (Feet): 5 Height (Inches): 2.00 Weight (Pounds): 138 Assessment/Plan Problem List: (1) Elevated d-dimer ICD Codes: R79.89 - Other specified abnormal findings of blood chemistry SNOMED: 813181053 (2) Renal insufficiency ICD Codes: N28.9 - Disorder of kidney and ureter, unspecified SNOMED: 344338650, 028196272 (3) PNA (pneumonia) ICD Codes: J18.9 - Pneumonia, unspecified organism SNOMED: 030005020 (4) Dehydration ICD Codes: E86.0 - Dehydration SNOMED: 65915528 (5) LEONARDO (acute kidney injury) ICD Codes: N17.9 - Acute kidney failure, unspecified SNOMED: 9236114, 48617699 (6) Hypoxia ICD Codes: R09.02 - Hypoxemia; J12.82 - Pneumonia due to coronavirus disease 2019 SNOMED: 660078344 (7) Pneumonia due to COVID-19 virus ICD Codes: U07.1 - COVID-19; J12.82 - Pneumonia due to coronavirus disease 2019 SNOMED: 647222774586663093 (8) DMII (diabetes mellitus, type 2) ICD Codes: E11.9 - Type 2 diabetes mellitus without complications SNOMED: 01903043 Status: progressing, unchanged Assessment/Plan: covid + hypotensive septic shock started on pressors unable to wean poor chance of recovery failure to wean intubated very poor prognosis bilat chest tube recurrent Vidya Clayton MD Jul 10, 2020 13:06
--- NOTE | 2020-07-10 13:19 | Diagnostic Imaging Report ---
Indication: Dyspnea Technique: One view of the chest Comparison: 07/08/2020 Findings: Bilateral chest tubes, small right pneumothorax are unchanged. Bilateral infiltrates appear slightly increased. Stable satisfactory endotracheal and orogastric tube positions. Impression: Stable slightly worse bilateral pneumothoraces. Little change otherwise, over 2 days
--- NOTE | 2020-07-10 13:49 | Cardiac Electrophysiology PN ---
Assessment/Plan Assessment/Plan 1. Respiratory failure due to COVID pneumonia. Intubated on 100% Fio2. PEEP 12 Echo showed Nl EF 2. Bilateral pneumothoraces. S/P bilateral chest tube placement with minimal drainage but large air leak 3. Troponin elevation. Levels are low and flat could be demand ischemia vs Renal failure EKG shows sinus tachycardia at 110 beats per minute. 4. Hypernatremia with sodium of 155. Resolved 5. Hypotension. On Levophed now. DC Coreg and Lasix 6. DNR DW RN and Dr Amaro Subjective Subjective Intubated in ICU on Fentanyl and Versed drip. Chest tubes have minimal drainage( R 10cc and L 40cc) On 100% Fio2, PEEP 8 . Started on Levophed overnight at 10 and now at 4 Mcg DNR Objective Last 24 Hour Vital Signs Date Time Temp Pulse Resp B/P (MAP) Pulse Ox O2 Delivery O2 Flow Rate FiO2 07/10/20 11:28 94 32 100 07/10/20 11:00 32 92/48 100 07/10/20 11:00 32 Mechanical Ventilator 100 07/10/20 11:00 91 32 95/50 (65) 87 07/10/20 10:30 89 30 89/49 (62) 90 07/10/20 10:00 30 132/62 Mechanical Ventilator 100 07/10/20 10:00 30 Mechanical Ventilator 100 07/10/20 10:00 90 30 132/62 (85) 92 07/10/20 09:45 87 28 141/65 (90) 92 07/10/20 09:30 90 33 152/77 (102) 88 07/10/20 09:00 33 149/76 Mechanical Ventilator 100 07/10/20 09:00 33 Mechanical Ventilator 100 07/10/20 09:00 88 33 149/76 (100) 90 07/10/20 08:35 102/49 07/10/20 08:30 91 33 140/63 (88) 89 07/10/20 08:00 Mechanical Ventilator Mechanical Ventilator Mechanical Ventilator Mechanical Ventilator Mechanical Ventilator 07/10/20 08:00 100 07/10/20 08:00 96 07/10/20 08:00 32 101/46 Mechanical Ventilator 100 07/10/20 08:00 32 Mechanical Ventilator 100 07/10/20 08:00 98.0 95 32 101/46 (64) 88 07/10/20 07:10 86 35 100 07/10/20 07:00 91 32 123/49 (73) 85 07/10/20 07:00 32 123/49 100 07/10/20 07:00 32 Mechanical Ventilator 100 07/10/20 06:00 30 127/74 Mechanical Ventilator 100 07/10/20 06:00 30 Mechanical Ventilator 100 07/10/20 06:00 30 127/74 Mechanical Ventilator 100 07/10/20 06:00 98.6 85 30 127/74 (91) 86 07/10/20 05:30 83 30 134/74 (94) 88 07/10/20 05:30 96.8 07/10/20 05:00 79 28 121/74 (90) 90 07/10/20 05:00 28 121/74 Mechanical Ventilator 100 07/10/20 05:00 28 100 07/10/20 05:00 28 121/74 Mechanical Ventilator 100 07/10/20 04:30 78 30 97/54 (68) 90 07/10/20 04:00 Mechanical Ventilator Mechanical Ventilator Mechanical Ventilator Mechanical Ventilator Mechanical Ventilator 07/10/20 04:00 78 29 94/52 (66) 91 07/10/20 04:00 100 07/10/20 04:00 78 07/10/20 04:00 29 94/52 Mechanical Ventilator 100 07/10/20 04:00 29 Mechanical Ventilator 100 07/10/20 04:00 29 94/52 Mechanical Ventilator 100 07/10/20 03:30 77 29 97/58 (71) 91 07/10/20 03:10 79 32 100 07/10/20 03:00 73 24 108/59 (75) 91 07/10/20 03:00 24 108/59 Mechanical Ventilator 100 07/10/20 03:00 28 Mechanical Ventilator 100 07/10/20 03:00 24 108/59 Mechanical Ventilator 100 07/10/20 02:00 74 28 93/61 (72) 94 07/10/20 02:00 28 93/61 Mechanical Ventilator 100 07/10/20 02:00 28 Mechanical Ventilator 100 07/10/20 02:00 28 93/61 Mechanical Ventilator 100 07/10/20 01:30 78 29 86/49 (61) 94 07/10/20 01:00 77 30 82/48 (59) 91 07/10/20 01:00 30 82/48 Mechanical Ventilator 100 07/10/20 01:00 30 Mechanical Ventilator 100 07/10/20 01:00 30 82/48 Mechanical Ventilator 100 07/10/20 00:30 78 32 108/66 (80) 93 07/10/20 00:00 79 31 83/48 (60) 91 07/10/20 00:00 Mechanical Ventilator Mechanical Ventilator Mechanical Ventilator Mechanical Ventilator Mechanical Ventilator 07/10/20 00:00 74/46 07/10/20 00:00 31 83/48 Mechanical Ventilator 100 07/10/20 00:00 31 Mechanical Ventilator 100 07/10/20 00:00 31 83/48 Mechanical Ventilator 100 07/09/20 23:30 77 29 74/46 (55) 89 07/09/20 23:10 79 30 100 07/09/20 23:00 28 74/47 Mechanical Ventilator 100 07/09/20 23:00 28 Mechanical Ventilator 100 07/09/20 23:00 28 74/47 Mechanical Ventilator 100 07/09/20 23:00 80 28 74/47 (56) 89 07/09/20 22:30 87 29 83/49 (60) 90 07/09/20 22:00 91 28 89/56 (67) 89 07/09/20 22:00 28 89/56 100 07/09/20 22:00 28 Mechanical Ventilator 100 07/09/20 22:00 31 120/69 Mechanical Ventilator 100 07/09/20 22:00 96 120/69 07/09/20 21:30 95 25 112/62 (79) 84 07/09/20 21:00 97 34 139/75 (96) 81 07/09/20 21:00 31 Mechanical Ventilator 100 07/09/20 21:00 31 120/69 Mechanical Ventilator 100 07/09/20 20:30 97 33 131/71 (91) 81 07/09/20 20:00 Mechanical Ventilator Mechanical Ventilator Mechanical Ventilator Mechanical Ventilator Mechanical Ventilator 07/09/20 20:00 100 07/09/20 20:00 96.8 97 34 139/75 (96) 81 07/09/20 20:00 33 Mechanical Ventilator 100 07/09/20 20:00 33 134/71 Mechanical Ventilator 100 07/09/20 20:00 97 07/09/20 19:30 98 31 142/72 (95) 83 07/09/20 19:00 98 34 159/76 (103) 81 07/09/20 19:00 35 Mechanical Ventilator 100 07/09/20 19:00 35 151/76 Mechanical Ventilator 100 07/09/20 19:00 100 36 100 07/09/20 18:30 97 35 165/81 (109) 82 07/09/20 18:30 98.0 07/09/20 18:00 35 Mechanical Ventilator 100.0 100 07/09/20 18:00 30 165/81 Mechanical Ventilator 100 07/09/20 18:00 95 32 125/74 (91) 89 07/09/20 17:00 32 Mechanical Ventilator 100 07/09/20 17:00 32 127/67 Mechanical Ventilator 100 07/09/20 17:00 94 30 138/72 (94) 77 07/09/20 16:00 100 07/09/20 16:00 98.0 93 27 114/64 (81) 89 07/09/20 16:00 29 Mechanical Ventilator 100 07/09/20 16:00 29 125/73 Mechanical Ventilator 100 07/09/20 16:00 Mechanical Ventilator Mechanical Ventilator Mechanical Ventilator Mechanical Ventilator Mechanical Ventilator 07/09/20 16:00 94 07/09/20 15:30 91 26 121/62 (81) 91 07/09/20 15:03 89 32 100 07/09/20 15:00 33 Mechanical Ventilator 100 07/09/20 15:00 33 127/69 Mechanical Ventilator 100 07/09/20 15:00 94 30 137/68 (91) 88 07/09/20 14:00 33 Mechanical Ventilator 100 07/09/20 14:00 33 136/78 Mechanical Ventilator 100 07/09/20 14:00 96 33 151/73 (99) 89 Intake and Output 07/09/20 07/10/20 19:00 07:00 Intake Total 1478 ml 1572.925 ml Output Total 630 ml 480 ml Balance 848 ml 1092.925 ml Intake Free Water 180 ml 90 ml IV Total 638 ml 1042.925 ml Tube Feeding 660 ml 440 ml Output Urine Total 630 ml 480 ml Objective HEAD AND NECK: No JVD. Orally intubated LUNGS: Coarse rhonchi bilaterally. Bilateral chest tubes in. CARDIOVASCULAR: Regular S1 and S2 and no murmur ABDOMEN: Soft. EXTREMITIES: No pitting edema. Maxwell Carreon MD Jul 10, 2020 13:49
--- NOTE | 2020-07-10 14:07 | Nephrology Progress Note ---
Assessment/Plan Problem List: (1) LEONARDO (acute kidney injury) (2) Dehydration (3) DMII (diabetes mellitus, type 2) (4) Pneumonia due to COVID-19 virus (5) Hypoxia Assessment 70-year-old female presents with COVID-19 pneumonia and hypoxia On admission has BUN of 77 and creatinine of 1.6. Renal failure most likely prerenal and dehydration with possible underlying chronic kidney disease Patient has elevated inflammatory markers Hypoalbuminemia Electrolyte abnormalities Hyperglycemia Plan July 10: Status quo. FiO2 100%. Remains intubated. Will check lab tomorrow. Continue per consultants. July 09: Status quo. FiO2 100%. Intubated on ventilator with bilateral chest tube. Labs reviewed. Renal parameters stable however overall status and clinical condition remains poor. Patient DNR. July 08: DNR. Intubated on ventilator. FiO2 100%. Bilateral chest tube. Labs reviewed. Renal parameters stable. July 07: FiO2 100%. Renal parameters stable. Remains intubated with bilateral chest tube. Continue per pulmonary. July 06: Labs reviewed. Renal parameters stable. ABG suggests retaining of CO2. Patient continues to be on FiO2 100%. Has bilateral chest tubes. Remains intubated on ventilator. Continue to monitor renal parameters. July 05: No CHEM panel drawn today. Status quo. Pulmonary status unchanged. We will continue to monitor renal parameters and electrolytes. Continue per consultants. July 04: Status quo. On ventilator. Full code. Bilateral chest tube. Renal parameters stable. July 03: Patient remains full code. Intubated on ventilator. Has chest tube. Labs reviewed. Renal parameters stable. Continue per consultants. July 02: Remains intubated. Has a bilateral chest tube. He is full code. Labs reviewed. Abnormal electrolyte addressed. Continue per consultants. July 01: Remains intubated. Continues to have bilateral chest tube. Full code. Labs reviewed. Renal parameters stable. Low phosphorus addressed. Discussed with NORMAN Lyon. June 30: Full code. Intubated. Bilateral chest tube. As reviewed. Abnormal electrolytes addressed. June 29: Full code. Intubated. Bilateral chest tube. Unstable pulmonary status. ABG ordered. Electrolyte imbalance addressed. Discussed with NORMAN Montalvo. June 28: Labs reviewed. Abnormal electrolytes addressed. Patient remains full code. Continue per consultants. June 27: No chemistry panel done today. Remains full code. Medication list reviewed. Continue per consultants. Will monitor electrolytes and renal panel in a.m. June 26: Status quo. Remains full code. Labs reviewed. Main IV changed to normal saline 50 cc an hour. Continue per consultants and pulmonary. June 25: Remains intubated. Has bilateral chest tube. Full code. Labs reviewed. Abnormal electrolytes addressed. Albumin bolus given. Continue to monitor renal parameters. Poor prognosis. June 24: Patient in ICU. Intubated. Has bilateral chest tube. Labs reviewed. Renal parameters stable. Low phosphorus addressed. Continue per consultants. Full code. Poor prognosis. June 23: Patient in ICU. Intubated. Due for insertion of a chest tube. Has pneumothorax. Renal parameters are stable. Serum sodium rising. Will adjust IV fluid. Continue per consultants. Patient full code. Prognosis poor. June 22: Labs reviewed. Remains on BiPAP which is not changed to high flow oxygen due to pneumothorax found on chest x-ray. Serum sodium 155. Continues on D5W. Electrolytes within normal limits. Check 2D echocardiogram. Coreg for blood pressure and heart rate. June 21: Status quo. On BiPAP. Full code. Serum sodium 153. Continue D5W. Continue to monitor electrolytes. Continue per consultants. June 20: Patient full code. On BiPAP. Labs reviewed. Serum sodium rising. Will increase D5W to 75 cc an hour. Continue to monitor electrolytes. June 19: IV changed to D5W. Monitor blood sugar. Monitor electrolytes. Medication list reviewed. Patient is being treated for COVID-19 pneumonia. Patient is full code. Previously Pulmonary support IV antibiotics Slow hydration Avoid nephrotoxic Monitor renal parameters Per orders Subjective ROS Limited/Unobtainable: Yes Objective Objective Last 24 Hour Vital Signs Date Time Temp Pulse Resp B/P (MAP) Pulse Ox O2 Delivery O2 Flow Rate FiO2 07/10/20 11:28 94 32 100 07/10/20 11:00 32 92/48 100 07/10/20 11:00 32 Mechanical Ventilator 100 07/10/20 11:00 91 32 95/50 (65) 87 07/10/20 10:30 89 30 89/49 (62) 90 07/10/20 10:00 30 132/62 Mechanical Ventilator 100 07/10/20 10:00 30 Mechanical Ventilator 100 07/10/20 10:00 90 30 132/62 (85) 92 07/10/20 09:45 87 28 141/65 (90) 92 07/10/20 09:30 90 33 152/77 (102) 88 07/10/20 09:00 33 149/76 Mechanical Ventilator 100 07/10/20 09:00 33 Mechanical Ventilator 100 07/10/20 09:00 88 33 149/76 (100) 90 07/10/20 08:35 102/49 07/10/20 08:30 91 33 140/63 (88) 89 07/10/20 08:00 Mechanical Ventilator Mechanical Ventilator Mechanical Ventilator Mechanical Ventilator Mechanical Ventilator 07/10/20 08:00 100 07/10/20 08:00 96 07/10/20 08:00 32 101/46 Mechanical Ventilator 100 07/10/20 08:00 32 Mechanical Ventilator 100 07/10/20 08:00 98.0 95 32 101/46 (64) 88 07/10/20 07:10 86 35 100 07/10/20 07:00 91 32 123/49 (73) 85 07/10/20 07:00 32 123/49 100 07/10/20 07:00 32 Mechanical Ventilator 100 07/10/20 06:00 30 127/74 Mechanical Ventilator 100 07/10/20 06:00 30 Mechanical Ventilator 100 07/10/20 06:00 30 127/74 Mechanical Ventilator 100 07/10/20 06:00 98.6 85 30 127/74 (91) 86 07/10/20 05:30 83 30 134/74 (94) 88 07/10/20 05:30 96.8 07/10/20 05:00 79 28 121/74 (90) 90 07/10/20 05:00 28 121/74 Mechanical Ventilator 100 07/10/20 05:00 28 100 07/10/20 05:00 28 121/74 Mechanical Ventilator 100 07/10/20 04:30 78 30 97/54 (68) 90 07/10/20 04:00 Mechanical Ventilator Mechanical Ventilator Mechanical Ventilator Mechanical Ventilator Mechanical Ventilator 07/10/20 04:00 78 29 94/52 (66) 91 07/10/20 04:00 100 07/10/20 04:00 78 07/10/20 04:00 29 94/52 Mechanical Ventilator 100 07/10/20 04:00 29 Mechanical Ventilator 100 07/10/20 04:00 29 94/52 Mechanical Ventilator 100 07/10/20 03:30 77 29 97/58 (71) 91 07/10/20 03:10 79 32 100 07/10/20 03:00 73 24 108/59 (75) 91 07/10/20 03:00 24 108/59 Mechanical Ventilator 100 07/10/20 03:00 28 Mechanical Ventilator 100 07/10/20 03:00 24 108/59 Mechanical Ventilator 100 07/10/20 02:00 74 28 93/61 (72) 94 07/10/20 02:00 28 93/61 Mechanical Ventilator 100 07/10/20 02:00 28 Mechanical Ventilator 100 07/10/20 02:00 28 93/61 Mechanical Ventilator 100 07/10/20 01:30 78 29 86/49 (61) 94 07/10/20 01:00 77 30 82/48 (59) 91 07/10/20 01:00 30 82/48 Mechanical Ventilator 100 07/10/20 01:00 30 Mechanical Ventilator 100 07/10/20 01:00 30 82/48 Mechanical Ventilator 100 07/10/20 00:30 78 32 108/66 (80) 93 07/10/20 00:00 79 31 83/48 (60) 91 07/10/20 00:00 Mechanical Ventilator Mechanical Ventilator Mechanical Ventilator Mechanical Ventilator Mechanical Ventilator 07/10/20 00:00 74/46 07/10/20 00:00 31 83/48 Mechanical Ventilator 100 07/10/20 00:00 31 Mechanical Ventilator 100 07/10/20 00:00 31 83/48 Mechanical Ventilator 100 07/09/20 23:30 77 29 74/46 (55) 89 07/09/20 23:10 79 30 100 07/09/20 23:00 28 74/47 Mechanical Ventilator 100 07/09/20 23:00 28 Mechanical Ventilator 100 07/09/20 23:00 28 74/47 Mechanical Ventilator 100 07/09/20 23:00 80 28 74/47 (56) 89 07/09/20 22:30 87 29 83/49 (60) 90 07/09/20 22:00 91 28 89/56 (67) 89 07/09/20 22:00 28 89/56 100 07/09/20 22:00 28 Mechanical Ventilator 100 07/09/20 22:00 31 120/69 Mechanical Ventilator 100 07/09/20 22:00 96 120/69 07/09/20 21:30 95 25 112/62 (79) 84 07/09/20 21:00 97 34 139/75 (96) 81 07/09/20 21:00 31 Mechanical Ventilator 100 07/09/20 21:00 31 120/69 Mechanical Ventilator 100 07/09/20 20:30 97 33 131/71 (91) 81 07/09/20 20:00 Mechanical Ventilator Mechanical Ventilator Mechanical Ventilator Mechanical Ventilator Mechanical Ventilator 07/09/20 20:00 100 07/09/20 20:00 96.8 97 34 139/75 (96) 81 07/09/20 20:00 33 Mechanical Ventilator 100 07/09/20 20:00 33 134/71 Mechanical Ventilator 100 07/09/20 20:00 97 07/09/20 19:30 98 31 142/72 (95) 83 07/09/20 19:00 98 34 159/76 (103) 81 07/09/20 19:00 35 Mechanical Ventilator 100 07/09/20 19:00 35 151/76 Mechanical Ventilator 100 07/09/20 19:00 100 36 100 07/09/20 18:30 97 35 165/81 (109) 82 07/09/20 18:30 98.0 07/09/20 18:00 35 Mechanical Ventilator 100.0 100 07/09/20 18:00 30 165/81 Mechanical Ventilator 100 07/09/20 18:00 95 32 125/74 (91) 89 07/09/20 17:00 32 Mechanical Ventilator 100 07/09/20 17:00 32 127/67 Mechanical Ventilator 100 07/09/20 17:00 94 30 138/72 (94) 77 07/09/20 16:00 100 07/09/20 16:00 98.0 93 27 114/64 (81) 89 07/09/20 16:00 29 Mechanical Ventilator 100 07/09/20 16:00 29 125/73 Mechanical Ventilator 100 07/09/20 16:00 Mechanical Ventilator Mechanical Ventilator Mechanical Ventilator Mechanical Ventilator Mechanical Ventilator 07/09/20 16:00 94 07/09/20 15:30 91 26 121/62 (81) 91 07/09/20 15:03 89 32 100 07/09/20 15:00 33 Mechanical Ventilator 100 07/09/20 15:00 33 127/69 Mechanical Ventilator 100 07/09/20 15:00 94 30 137/68 (91) 88 Intake and Output 07/09/20 07/10/20 19:00 07:00 Intake Total 1478 ml 1572.925 ml Output Total 630 ml 480 ml Balance 848 ml 1092.925 ml Intake Free Water 180 ml 90 ml IV Total 638 ml 1042.925 ml Tube Feeding 660 ml 440 ml Output Urine Total 630 ml 480 ml No CHEM panel drawn today Height (Feet): 5 Height (Inches): 2.00 Weight (Pounds): 138 General Appearance: no apparent distress Cardiovascular: tachycardia Respiratory/Chest: decreased breath sounds Abdomen: distended Raza De Jesus MD Jul 10, 2020 14:07
--- NOTE | 2020-07-10 14:15 | NUR ---
NURSE NOTES: Pt seen by Dr Carreon. updated on pt's current status. No new orders received at this time. Repositioned for comfort. VS stable while on Levophed drip at 2mg/min.
[2020-07-10] MEDS: fentaNYL Citrate 1,000 MCG in NS 100 ML IV PRN ×2 (14:46→14:49)
[2020-07-10] MEDS ORDERED: Versed 50mg/NS 100ml 100 ML IV PRN (15:00)
--- NOTE | 2020-07-10 16:00 | NUR ---
NURSE NOTES: Levophed drip was placed on hold, since BP is now stable, SBP above 90.
--- NOTE | 2020-07-10 18:12 | NUR ---
INSURANCE FAXED CLINCALS AND REVIEW TO [facility] T: [phone] F: [phone]
--- NOTE | 2020-07-10 19:15 | NUR ---
NURSE HAND-OFF REPORT: Latest Vital Signs: Temperature 97.9 , Pulse 91 , B/P 86 /50 , Respiratory Rate 24 , O2 SAT 89 , Mechanical Ventilator, ETT 7.0 at 22cm/lipline, vent settings AC20, VT400, Peep 12, FIO2 100%. Vital Sign Comment: Maintained on Fentanyl drip 60mcg/hr and Versed drip 5mg/hr for RASS/-2 light sedation. EKG Rhythm: Sinus Rhythm Rhythm change?: N Latest Carney Fall Score: 50 Fall Risk: High Risk Safety Measures: Call light Within Reach, Bed Alarm Zone 2, Side Rails Side Rails x3, Bed position Low and Locked. Fall Precautions: Yellow Socks Door Sign Patient Fall Education Report given to Jodie AUSTIN. Endorsed plan of care. Addendum: 07/10/20 at 2012 by WILLIAN OLIVIER RN PT REMAINS WITH BILATERAL CHEST TUBES. TOTAL OUTPUT DURING MY SHIFT FROM RIGHT CHEST YQZM=114 ML/OUT AND LEFT CHEST TUBE=35 ML/OUT
--- NOTE | 2020-07-10 19:30 | NUR ---
NURSE NOTES: Received report from NORMAN Moreau. Sedated while on Fentanyl @60mcg/hr and Versed @5mg/hr, Levo was HELD with RASS score -2 light sedation. Orally intubated ETT 7.0 at 22cm/lipline with vent settings AC20, VT400, Peep 12, FIO2 100%. Bilateral chest tubes connected to pleura-vac drainage system to wall/suction. ST on environmental monitoring specialist. NS infusing @50mL/hr, connected to right double lumen PICC line, CDI. Temp 98.6F/rectal while maintained on cooling blanket. OGT with Glucerna 1.2 infusing goal @55mL/hr with zero residual. Martin catheter 16F, draining dark richelle urine. Skin alterations including sacral DTI/and skin tear, covered with Optifoam dressing. On P-200, pressure release mattress, off/heels. HOB at 30degrees, bed locked/in lowest position, 3 side-rails up. Will continue to monitor and follow plan of care.
--- NOTE | 2020-07-10 20:00 | NUR ---
NURSE NOTES: BP trending down. Levophed started with 2mcgs/min
[2020-07-10] MEDS: Dyna-Hex 2% Top Sol 2oz TOPIC SCH (20:15)
--- NOTE | 2020-07-10 21:00 | NUR ---
NURSE NOTES: PM meds given Turned and repositioned. Oral care provided.
[2020-07-11] VITALS (34 sets, daily range): BP systolic 93–153; BP diastolic 39–81
--- NOTE | 2020-07-11 | NUR ---
NURSE NOTES: Sedated remains on Fentanyl @60mcg/hr and Versed @5mg/hr, Levo 1mcgs/min are running with RASS score -2 light sedation. Orally intubated ETT 7.0 at 22cm/lipline with vent settings AC20, VT400, Peep 12, FIO2 100%. Bilateral chest tubes connected to pleura-vac drainage system to wall/suction. ST on monitoring manager. NS infusing @50mL/hr, connected to right double lumen PICC line, CDI. Temp 98.6F/rectal while maintained on cooling blanket. OGT with Glucerna 1.2 infusing goal @55mL/hr with zero residual. Martin catheter 16F, draining dark richelle urine. Skin alterations including sacral DTI/and skin tear, covered with Optifoam dressing. On P-200, pressure release mattress, off/heels. HOB at 30degrees, bed locked/in lowest position, 3 side-rails up. Will continue to monitor and follow plan of care.
[2020-07-11] MEDS: Versed 100mg/NS 200ml 200 ML IV PRN ×3 (02:00→23:15)
--- NOTE | 2020-07-11 02:00 | NUR ---
NURSE NOTES: AM care provided. Changed linens, gown, and sliders. Large diarrhea noted. Turned and repositioned Oral care provided.
--- NOTE | 2020-07-11 04:00 | NUR ---
NURSE NOTES: Changed linens, gown, and sliders. Large diarrhea noted. Turned and repositioned. Oral care provided.
[2020-07-11] MEDS: Docusate 100mg/10ml Liq NG SCH ×3 (05:29→23:02)
[2020-07-11] MEDS: NovoLOG Insulin Flexpen SUBQ SCH ×4 (06:00→23:09)
[2020-07-11] MEDS: fentaNYL Citrate 1,000 MCG in NS 100 ML IV PRN ×2 (07:00→19:13)
[2020-07-11 07:23] LABS: BASOPHILS % (AUTO) 0.9 % (0.0-2.0); EOSINOPHILS % (AUTO) 4.1 % (0.0-3.0); HEMATOCRIT 29.9 % (37.0-47.0); LYMPHOCYTES % (AUTO) 10.8 % (20.0-45.0); MEAN CORPUSCULAR VOLUME 99 FL (80-99); NEUTROPHILS % (AUTO) 79.3 % (45.0-75.0); PLATELET COUNT 230 K/UL (150-450); RED BLOOD COUNT 3.02 M/UL (4.20-5.40); RED CELL DISTRIBUTION WIDTH 17.2 % (11.6-14.8); WHITE BLOOD COUNT 7.2 K/UL (4.8-10.8)
--- NOTE | 2020-07-11 07:25 | NUR ---
RESPIRATORY NOTE: Received pt intubated with ETT 7.0@22cm lip line, secured by anchor fast, with the current vent settings AC [id number]%FiO2- peep 12, Pt has low saturation 86%, MD and RN aware, no respiratory distress noted. Suctioned small amt of thick thin clear white ortega secretions without incidents. Alarms are on and audible, ambu bag at bedside, vent is plugged into the red outlet, vent circuits are patent and out of the way. Will continue to monitor patient.
--- NOTE | 2020-07-11 07:30 | NUR ---
HAND OFF: Report given to [place]. Endorsed POC.
[2020-07-11 07:39] LABS: ALANINE AMINOTRANSFERASE 40 U/L (12-78); ALBUMIN/GLOBULIN RATIO 0.2 (1.0-2.7); ALKALINE PHOSPHATASE 167 U/L (46-116); ANION GAP 2 mmol/L (5-15); ASPARTATE AMINO TRANSFERASE 50 U/L (15-37); BILIRUBIN,TOTAL 0.4 MG/DL (0.2-1.0); BLOOD UREA NITROGEN 14 mg/dL (7-18); CALCIUM 7.8 MG/DL (8.5-10.1); CARBON DIOXIDE 37 MMOL/L (21-32); CHLORIDE 104 MMOL/L (98-107); CREATININE 0.4 MG/DL (0.55-1.30); PHOSPHORUS 3.1 MG/DL (2.5-4.9); SODIUM 143 MMOL/L (136-145)
[2020-07-11] MEDS: Vitamin D 1000 units Tab GT SCH (08:39)
--- NOTE | 2020-07-11 09:12 | NUR ---
RD ASSESSMENT & RECOMMENDATIONS SEE CARE ACTIVITY FOR COMPLETE ASSESSMENT DAILY ESTIMATED NEEDS: Needs based on Critical care 62.7kg 22-28 kcals/kg 4165-2192 total kcals 1.2-2 g protein/kg 75-125 g total protein 25-30 mL/kg 0191-1175 total fluid mLs NUTRITION DIAGNOSIS: Altered nutrition related lab values r/t clinical status as evidenced by elev BG checks (POC 226 230 128-> now improved), A1C 7.1, elevated Na(153-> 146), elev BUN(34-> 23), elev Mg(3.1). CURRENT TF:Glucerna 1.2 goal of 55ml/hr ENTERAL NUTRITION RECOMMENDATIONS: Glucerna 1.2 goal of 55ml/hr x24 hrs to provide 1320ml, 1584 kcal, 79g pro, 1063ml free H2O - Maintain Glucerna 1.2 @goal as tolerated. - Flush per MD/ HOB over 30 degrees - Trophic feeds w/ increased pressor support to maintain gut integrity. ADDITIONAL RECOMMENDATIONS: * Calibrated bed scale wts * Bowel regimen --> now w/ colace, +diarrhea now, colace held * Off decadron, BG improved * Feed w/ hemodynamic stability- NE @ 1mcg * Monitor lytes, replete as needed .
--- NOTE | 2020-07-11 09:21 | Diagnostic Imaging Report ---
EXAM: XR Chest, 1 View CLINICAL HISTORY: F/U TECHNIQUE: Frontal view of the chest. COMPARISON: Chest radiograph July 10, 2020. FINDINGS/IMPRESSION: Endotracheal tube terminates 2.5 cm above the melyssa. Right upper extremity PICC line. Bilateral chest tubes. Enteric feeding tube terminates in the stomach. MILDLY WORSENING RIGHT APICAL PNEUMOTHORAX, STILL MILD IN SIZE. Stable, extensive bilateral airspace consolidations with small bilateral pleural effusions. Cardiomegaly. <MYCVCSECTION> Communications: 07/11/20 09:51 Verify Receipt Verified receipt with NORMAN Choi on 07/11 09: 55 (-08:00)
--- NOTE | 2020-07-11 09:36 | NUR ---
RADIOLOGY DEPT., CHEST X-RAY DONE.-P.DYE
--- NOTE | 2020-07-11 10:27 | Surgery Progress Note ---
Surgery Progress Note Subjective Procedure Performed 1. right chest tube insertion 2. left chest tube insertion Additional Comments no acute events labs noted exam stable cxr noted mild ptx Objective Last 24 Hour Vital Signs Date Time Temp Pulse Resp B/P (MAP) Pulse Ox O2 Delivery O2 Flow Rate FiO2 07/11/20 10:00 105 30 110/66 (81) 73 07/11/20 09:30 102 29 121/64 (83) 61 07/11/20 09:00 99 28 133/64 (87) 55 07/11/20 08:30 98 24 135/75 (95) 73 07/11/20 08:00 97.5 91 22 121/70 (87) 92 07/11/20 08:00 100 07/11/20 07:35 94 21 100 07/11/20 07:30 96 19 123/67 (85) 79 07/11/20 07:00 25 150/79 Mechanical Ventilator 100 07/11/20 07:00 25 150/79 Mechanical Ventilator 100 07/11/20 07:00 87 25 150/79 (102) 80 07/11/20 06:30 90 23 105/60 (75) 94 07/11/20 06:00 93 25 104/62 (76) 93 07/11/20 06:00 25 104/62 100 07/11/20 05:30 99 21 117/62 (80) 92 07/11/20 05:00 102 33 145/72 (96) 87 07/11/20 05:00 33 145/72 Mechanical Ventilator 100 07/11/20 05:00 33 145/72 Mechanical Ventilator 100 07/11/20 04:30 102 29 125/74 (91) 80 07/11/20 04:00 100 07/11/20 04:00 113 07/11/20 04:00 113 31 121/62 (81) 89 07/11/20 04:00 31 121/62 Mechanical Ventilator 100 07/11/20 04:00 31 121/62 100 07/11/20 04:00 Mechanical Ventilator Mechanical Ventilator Mechanical Ventilator Mechanical Ventilator Mechanical Ventilator 07/11/20 03:50 114 35 100 07/11/20 03:30 112 32 132/55 (80) 86 07/11/20 03:00 110 34 125/64 (84) 86 07/11/20 03:00 34 125/64 Mechanical Ventilator 100 07/11/20 03:00 34 125/64 100 07/11/20 02:30 109 34 128/61 (83) 85 07/11/20 02:00 32 119/55 Mechanical Ventilator 100 07/11/20 02:00 32 119/55 100 07/11/20 02:00 109 32 119/55 (76) 86 07/11/20 01:30 109 34 133/59 (83) 86 07/11/20 01:00 32 Mechanical Ventilator 100 07/11/20 01:00 32 130/59 100 07/11/20 01:00 106 32 130/59 (82) 86 07/11/20 00:30 104 32 119/53 (75) 86 07/11/20 00:00 100 07/11/20 00:00 Mechanical Ventilator Mechanical Ventilator Mechanical Ventilator Mechanical Ventilator Mechanical Ventilator 07/11/20 00:00 94 07/11/20 00:00 31 Mechanical Ventilator 100 07/11/20 00:00 31 118/61 Mechanical Ventilator 100 07/11/20 00:00 100 31 118/61 (80) 86 07/10/20 23:30 97 31 113/57 (75) 89 07/10/20 23:02 95 32 100 07/10/20 23:00 95 30 111/54 (73) 89 07/10/20 23:00 30 Mechanical Ventilator 100 07/10/20 23:00 30 111/54 Mechanical Ventilator 100 07/10/20 23:00 30 111/54 100 07/10/20 22:30 95 32 93/52 (66) 91 07/10/20 22:00 32 Mechanical Ventilator 100 07/10/20 22:00 32 93/51 Mechanical Ventilator 100 07/10/20 22:00 92 32 93/51 (65) 94 07/10/20 21:00 92 30 83/54 (64) 90 07/10/20 21:00 30 Mechanical Ventilator 100 07/10/20 21:00 30 83/54 Mechanical Ventilator 100 07/10/20 20:30 94 31 103/78 (86) 83 07/10/20 20:00 94 07/10/20 20:00 100 07/10/20 20:00 32 87/49 Mechanical Ventilator 100 07/10/20 20:00 Mechanical Ventilator Mechanical Ventilator Mechanical Ventilator Mechanical Ventilator Mechanical Ventilator 07/10/20 20:00 94 32 87/49 (62) 82 07/10/20 19:30 91 24 86/50 (62) 89 07/10/20 19:29 90 22 100 07/10/20 19:00 91 23 94/54 (67) 90 07/10/20 19:00 23 Mechanical Ventilator 100 07/10/20 19:00 23 89/53 Mechanical Ventilator 100 07/10/20 18:00 26 Mechanical Ventilator 100 07/10/20 18:00 26 106/62 Mechanical Ventilator 100 07/10/20 18:00 97 25 140/88 (105) 87 07/10/20 17:30 102 23 132/86 (101) 86 07/10/20 17:00 105 27 141/80 (100) 81 07/10/20 17:00 28 Mechanical Ventilator 100 07/10/20 17:00 27 138/58 Mechanical Ventilator 100 07/10/20 16:30 112 28 138/58 (84) 78 07/10/20 16:00 117 07/10/20 16:00 Mechanical Ventilator Mechanical Ventilator Mechanical Ventilator Mechanical Ventilator Mechanical Ventilator 07/10/20 16:00 28 Mechanical Ventilator 100 07/10/20 16:00 28 143/79 Mechanical Ventilator 100 07/10/20 16:00 100 07/10/20 16:00 97.9 115 25 143/79 (100) 84 07/10/20 15:30 115 33 128/64 (85) 47 07/10/20 15:16 98.0 07/10/20 15:14 112 24 100 07/10/20 15:00 36 Mechanical Ventilator 100 07/10/20 15:00 36 159/75 Mechanical Ventilator 100 07/10/20 15:00 109 37 159/75 (103) 73 07/10/20 14:49 32 92/48 Mechanical Ventilator 100.0 100 07/10/20 14:46 32 Mechanical Ventilator 100.0 100 07/10/20 14:30 98 38 165/78 (107) 78 07/10/20 14:00 36 165/77 Mechanical Ventilator 100 07/10/20 14:00 94 36 159/76 (103) 80 07/10/20 13:30 97 35 102/59 (73) 86 07/10/20 13:00 97 35 101/50 (67) 87 07/10/20 13:00 35 97/55 Mechanical Ventilator 100 07/10/20 12:30 94 34 98/52 (67) 88 07/10/20 12:00 Mechanical Ventilator Mechanical Ventilator Mechanical Ventilator Mechanical Ventilator Mechanical Ventilator 07/10/20 12:00 91 07/10/20 12:00 33 101/59 100 07/10/20 12:00 98.0 93 32 94/48 (63) 87 07/10/20 12:00 100 07/10/20 11:28 94 32 100 07/10/20 11:00 32 92/48 100 07/10/20 11:00 32 Mechanical Ventilator 100 07/10/20 11:00 91 32 95/50 (65) 87 07/10/20 10:30 89 30 89/49 (62) 90 I&O Intake and Output 07/10/20 07/11/20 19:00 07:00 Intake Total 1729.15 ml 1410.45 ml Output Total 635 ml 480 ml Balance 1094.15 ml 930.45 ml Intake Free Water 120 ml 30 ml IV Total 949.15 ml 720.45 ml Tube Feeding 660 ml 660 ml Output Urine Total 450 ml 480 ml Chest Tube Drainage Total 185 ml Dressing: saturated Cardiovascular: RSR Respiratory: decreased breath sounds Abdomen: soft, decreased bowel sounds Extremities: edema, no cyanosis Laboratory Tests Test 07/11/20 05:50 White Blood Count 7.2 K/UL (4.8-10.8) Red Blood Count 3.02 M/UL (4.20-5.40) L Hemoglobin 9.0 G/DL (12.0-16.0) L Hematocrit 29.9 % (37.0-47.0) L Mean Corpuscular Volume 99 FL (80-99) Mean Corpuscular Hemoglobin 30.0 PG (27.0-31.0) Mean Corpuscular Hemoglobin Concent 30.3 G/DL (32.0-36.0) L Red Cell Distribution Width 17.2 % (11.6-14.8) H Platelet Count 230 K/UL (150-450) Mean Platelet Volume 9.3 FL (6.5-10.1) Neutrophils (%) (Auto) 79.3 % (45.0-75.0) H Lymphocytes (%) (Auto) 10.8 % (20.0-45.0) L Monocytes (%) (Auto) 5.0 % (1.0-10.0) Eosinophils (%) (Auto) 4.1 % (0.0-3.0) H Basophils (%) (Auto) 0.9 % (0.0-2.0) Sodium Level 143 MMOL/L (136-145) Potassium Level 4.0 MMOL/L (3.5-5.1) Chloride Level 104 MMOL/L (98-107) Carbon Dioxide Level 37 MMOL/L (21-32) H Anion Gap 2 mmol/L (5-15) L Blood Urea Nitrogen 14 mg/dL (7-18) Creatinine 0.4 MG/DL (0.55-1.30) L Estimat Glomerular Filtration Rate > 60 mL/min (>60) Glucose Level 103 MG/DL (74-106) Uric Acid 1.8 MG/DL (2.6-7.2) L Calcium Level 7.8 MG/DL (8.5-10.1) L Phosphorus Level 3.1 MG/DL (2.5-4.9) Magnesium Level 2.4 MG/DL (1.8-2.4) Total Bilirubin 0.4 MG/DL (0.2-1.0) Aspartate Amino Transf (AST/SGOT) 50 U/L (15-37) H Alanine Aminotransferase (ALT/SGPT) 40 U/L (12-78) Alkaline Phosphatase 167 U/L (46-116) H C-Reactive Protein, Quantitative 12.8 mg/dL (0.00-0.90) H Pro-B-Type Natriuretic Peptide 2265 pg/mL (0-125) H Total Protein 6.1 G/DL (6.4-8.2) L Albumin 1.0 G/DL (3.4-5.0) L Globulin 5.1 g/dL Albumin/Globulin Ratio 0.2 (1.0-2.7) L Plan Problems: (1) Renal insufficiency (2) Elevated d-dimer (3) Dehydration (4) LEONARDO (acute kidney injury) (5) DMII (diabetes mellitus, type 2) (6) Hypoxia (7) Pneumonia due to COVID-19 virus (8) PNA (pneumonia) (9) Pneumothorax Assessment & Plan: Bilateral pneumothorax status post bilateral chest tubes. Still on significant vent support. leak performed. Continue weaning vent. Continue with chest tubes. Will monitor and manage chest tubes accordingly. Thank you for let me to participate in patient's care Continue bilateral chest tubes on suction the airleak is worse her peak pressures are high prognosis overall is guarded. Imaging reviewed Bilateral air leaks noted high pressures continue chest tube suction recurrent right ptx tube fixed imaging pleuravac fixed tubes functional Unfortunately patient continues to be very ill on vent support with bilateral chest tubes in place. She continues to reaccumulate pneumothorax as this type functional tubes. Occasionally tubes or Pleur-evac needs to be changed and immediately shows improvement but then again declines. Prognosis is very guarded. We will continue to follow thank you for let me participate in patient 's care Elpidio Frazier Jul 11, 2020 10:27
--- NOTE | 2020-07-11 11:04 | NUR ---
CASE MANAGEMENT:REVIEW 07/11/20 SI: COVID PNEUMONIA ~ INTUBATED. PNTHX W/BILATERAL CHEST TUBES 97.5 108 25 151/74 81% ON VENT SUPPORT W/100% FIO2 PEEP~12.0 H/H-9.0/29.9 CO2+37 IS:LEVOPHED GTT VERSED GTT FENTANYL GTT IVF@50/HR IV PEPCID Q12H : ICU STATUS DCP: FROM HOME PLAN: SUPPORTIVE CARE BILATERAL CHEST TUBES TO SUCTION WEAN OXYGEN IF ABLE
--- NOTE | 2020-07-11 11:53 | Nephrology Progress Note ---
Assessment/Plan Problem List: (1) LEONARDO (acute kidney injury) (2) Dehydration (3) DMII (diabetes mellitus, type 2) (4) Pneumonia due to COVID-19 virus (5) Hypoxia Assessment 70-year-old female presents with COVID-19 pneumonia and hypoxia On admission has BUN of 77 and creatinine of 1.6. Renal failure most likely prerenal and dehydration with possible underlying chronic kidney disease Patient has elevated inflammatory markers Hypoalbuminemia Electrolyte abnormalities Hyperglycemia Plan July 11: Patient is doing poorly. Remains on FiO2 of 100%. Patient is DNR however intubated on ventilator with 2 chest tubes. Discussed with RN. Labs and medication list reviewed. Not much to add from renal standpoint of view. July 10: Status quo. FiO2 100%. Remains intubated. Will check lab tomorrow. Continue per consultants. July 09: Status quo. FiO2 100%. Intubated on ventilator with bilateral chest tube. Labs reviewed. Renal parameters stable however overall status and clinical condition remains poor. Patient DNR. July 08: DNR. Intubated on ventilator. FiO2 100%. Bilateral chest tube. Labs reviewed. Renal parameters stable. July 07: FiO2 100%. Renal parameters stable. Remains intubated with bilateral chest tube. Continue per pulmonary. July 06: Labs reviewed. Renal parameters stable. ABG suggests retaining of CO2. Patient continues to be on FiO2 100%. Has bilateral chest tubes. Remains intubated on ventilator. Continue to monitor renal parameters. July 05: No CHEM panel drawn today. Status quo. Pulmonary status unchang ed. We will continue to monitor renal parameters and electrolytes. Continue per consultants. July 04: Status quo. On ventilator. Full code. Bilateral chest tube. Renal parameters stable. July 03: Patient remains full code. Intubated on ventilator. Has chest tube. Labs reviewed. Renal parameters stable. Continue per consultants. July 02: Remains intubated. Has a bilateral chest tube. He is full code. Labs reviewed. Abnormal electrolyte addressed. Continue per consultants. July 01: Remains intubated. Continues to have bilateral chest tube. Full code. Labs reviewed. Renal parameters stable. Low phosphorus addressed. Discussed with NORMAN Lyon. June 30: Full code. Intubated. Bilateral chest tube. As reviewed. Abnormal electrolytes addressed. June 29: Full code. Intubated. Bilateral chest tube. Unstable pulmonary status. ABG ordered. Electrolyte imbalance addressed. Discussed with NORMAN Montalvo. June 28: Labs reviewed. Abnormal electrolytes addressed. Patient remains full code. Continue per consultants. June 27: No chemistry panel done today. Remains full code. Medication list reviewed. Continue per consultants. Will monitor electrolytes and renal panel in a.m. June 26: Status quo. Remains full code. Labs reviewed. Main IV changed to normal saline 50 cc an hour. Continue per consultants and pulmonary. June 25: Remains intubated. Has bilateral chest tube. Full code. Labs reviewed. Abnormal electrolytes addressed. Albumin bolus given. Continue to monitor renal parameters. Poor prognosis. June 24: Patient in ICU. Intubated. Has bilateral chest tube. Labs reviewe d. Renal parameters stable. Low phosphorus addressed. Continue per consultants. Full code. Poor prognosis. June 23: Patient in ICU. Intubated. Due for insertion of a chest tube. Has pneumothorax. Renal parameters are stable. Serum sodium rising. Will adjust IV fluid. Continue per consultants. Patient full code. Prognosis poor. June 22: Labs reviewed. Remains on BiPAP which is not changed to high flow oxygen due to pneumothorax found on chest x-ray. Serum sodium 155. Continues on D5W. Electrolytes within normal limits. Check 2D echocardiogram. Coreg for blood pressure and heart rate. June 21: Status quo. On BiPAP. Full code. Serum sodium 153. Continue D5W. Continue to monitor electrolytes. Continue per consultants. June 20: Patient full code. On BiPAP. Labs reviewed. Serum sodium rising. Will increase D5W to 75 cc an hour. Continue to monitor electrolytes. June 19: IV changed to D5W. Monitor blood sugar. Monitor electrolytes. Medication list reviewed. Patient is being treated for COVID-19 pneumonia. Patient is full code. Previously Pulmonary support IV antibiotics Slow hydration Avoid nephrotoxic Monitor renal parameters Per orders Subjective ROS Limited/Unobtainable: Yes Objective Objective Last 24 Hour Vital Signs Date Time Temp Pulse Resp B/P (MAP) Pulse Ox O2 Delivery O2 Flow Rate FiO2 07/11/20 11:05 106 26 100 07/11/20 11:00 102 30 125/58 (80) 81 07/11/20 10:00 29 117/65 Endotracheal Tube 100 07/11/20 10:00 29 117/65 Endotracheal Tube 100 07/11/20 10:00 105 30 110/66 (81) 73 2/20/21 09:30 102 29 121/64 (83) 61 07/11/20 09:00 99 28 133/64 (87) 55 07/11/20 09:00 29 131/66 Endotracheal Tube 100 07/11/20 09:00 29 131/66 Endotracheal Tube 100 07/11/20 08:30 98 24 135/75 (95) 73 07/11/20 08:00 25 151/74 Endotracheal Tube 100 07/11/20 08:00 25 151/74 Endotracheal Tube 100 07/11/20 08:00 97.5 91 22 121/70 (87) 92 07/11/20 08:00 108 07/11/20 08:00 100 07/11/20 07:35 94 21 100 07/11/20 07:30 96 19 123/67 (85) 79 07/11/20 07:00 25 150/79 Mechanical Ventilator 100 07/11/20 07:00 25 150/79 Mechanical Ventilator 100 07/11/20 07:00 87 25 150/79 (102) 80 07/11/20 06:30 90 23 105/60 (75) 94 07/11/20 06:00 93 25 104/62 (76) 93 07/11/20 06:00 25 104/62 100 07/11/20 05:30 99 21 117/62 (80) 92 07/11/20 05:00 102 33 145/72 (96) 87 07/11/20 05:00 33 145/72 Mechanical Ventilator 100 07/11/20 05:00 33 145/72 Mechanical Ventilator 100 07/11/20 04:30 102 29 125/74 (91) 80 07/11/20 04:00 100 07/11/20 04:00 113 07/11/20 04:00 113 31 121/62 (81) 89 07/11/20 04:00 31 121/62 Mechanical Ventilator 100 07/11/20 04:00 31 121/62 100 07/11/20 04:00 Mechanical Ventilator Mechanical Ventilator Mechanical Ventilator Mechanical Ventilator Mechanical Ventilator 07/11/20 03:50 114 35 100 07/11/20 03:30 112 32 132/55 (80) 86 07/11/20 03:00 110 34 125/64 (84) 86 07/11/20 03:00 34 125/64 Mechanical Ventilator 100 07/11/20 03:00 34 125/64 100 07/11/20 02:30 109 34 128/61 (83) 85 07/11/20 02:00 32 119/55 Mechanical Ventilator 100 07/11/20 02:00 32 119/55 100 07/11/20 02:00 109 32 119/55 (76) 86 07/11/20 01:30 109 34 133/59 (83) 86 07/11/20 01:00 32 Mechanical Ventilator 100 07/11/20 01:00 32 130/59 100 07/11/20 01:00 106 32 130/59 (82) 86 07/11/20 00:30 104 32 119/53 (75) 86 07/11/20 00:00 100 07/11/20 00:00 Mechanical Ventilator Mechanical Ventilator Mechanical Ventilator Mechanical Ventilator Mechanical Ventilator 07/11/20 00:00 94 07/11/20 00:00 31 Mechanical Ventilator 100 07/11/20 00:00 31 118/61 Mechanical Ventilator 100 07/11/20 00:00 100 31 118/61 (80) 86 07/10/20 23:30 97 31 113/57 (75) 89 07/10/20 23:02 95 32 100 07/10/20 23:00 95 30 111/54 (73) 89 07/10/20 23:00 30 Mechanical Ventilator 100 07/10/20 23:00 30 111/54 Mechanical Ventilator 100 07/10/20 23:00 30 111/54 100 07/10/20 22:30 95 32 93/52 (66) 91 07/10/20 22:00 32 Mechanical Ventilator 100 07/10/20 22:00 32 93/51 Mechanical Ventilator 100 07/10/20 22:00 92 32 93/51 (65) 94 07/10/20 21:00 92 30 83/54 (64) 90 07/10/20 21:00 30 Mechanical Ventilator 100 07/10/20 21:00 30 83/54 Mechanical Ventilator 100 07/10/20 20:30 94 31 103/78 (86) 83 07/10/20 20:00 94 07/10/20 20:00 100 07/10/20 20:00 32 87/49 Mechanical Ventilator 100 07/10/20 20:00 Mechanical Ventilator Mechanical Ventilator Mechanical Ventilator Mechanical Ventilator Mechanical Ventilator 07/10/20 20:00 94 32 87/49 (62) 82 07/10/20 19:30 91 24 86/50 (62) 89 07/10/20 19:29 90 22 100 07/10/20 19:00 91 23 94/54 (67) 90 07/10/20 19:00 23 Mechanical Ventilator 100 07/10/20 19:00 23 89/53 Mechanical Ventilator 100 07/10/20 18:00 26 Mechanical Ventilator 100 07/10/20 18:00 26 106/62 Mechanical Ventilator 100 07/10/20 18:00 97 25 140/88 (105) 87 07/10/20 17:30 102 23 132/86 (101) 86 07/10/20 17:00 105 27 141/80 (100) 81 07/10/20 17:00 28 Mechanical Ventilator 100 07/10/20 17:00 27 138/58 Mechanical Ventilator 100 07/10/20 16:30 112 28 138/58 (84) 78 07/10/20 16:00 117 07/10/20 16:00 Mechanical Ventilator Mechanical Ventilator Mechanical Ventilator Mechanical Ventilator Mechanical Ventilator 07/10/20 16:00 28 Mechanical Ventilator 100 07/10/20 16:00 28 143/79 Mechanical Ventilator 100 07/10/20 16:00 100 07/10/20 16:00 97.9 115 25 143/79 (100) 84 07/10/20 15:30 115 33 128/64 (85) 47 07/10/20 15:16 98.0 07/10/20 15:14 112 24 100 07/10/20 15:00 36 Mechanical Ventilator 100 07/10/20 15:00 36 159/75 Mechanical Ventilator 100 07/10/20 15:00 109 37 159/75 (103) 73 07/10/20 14:49 32 92/48 Mechanical Ventilator 100.0 100 07/10/20 14:46 32 Mechanical Ventilator 100.0 100 07/10/20 14:30 98 38 165/78 (107) 78 07/10/20 14:00 36 165/77 Mechanical Ventilator 100 07/10/20 14:00 94 36 159/76 (103) 80 07/10/20 13:30 97 35 102/59 (73) 86 07/10/20 13:00 97 35 101/50 (67) 87 07/10/20 13:00 35 97/55 Mechanical Ventilator 100 07/10/20 12:30 94 34 98/52 (67) 88 07/10/20 12:00 Mechanical Ventilator Mechanical Ventilator Mechanical Ventilator Mechanical Ventilator Mechanical Ventilator 07/10/20 12:00 91 07/10/20 12:00 33 101/59 100 07/10/20 12:00 98.0 93 32 94/48 (63) 87 07/10/20 12:00 100 Intake and Output 07/10/20 07/11/20 19:00 07:00 Intake Total 1729.15 ml 1410.45 ml Output Total 635 ml 480 ml Balance 1094.15 ml 930.45 ml Intake Free Water 120 ml 30 ml IV Total 949.15 ml 720.45 ml Tube Feeding 660 ml 660 ml Output Urine Total 450 ml 480 ml Chest Tube Drainage Total 185 ml Current Medications Medications (Trade) Dose Ordered Sig/Maya Route PRN Reason Start Time Stop Time Status Last Admin Dose Admin Acetaminophen (Tylenol) 500 mg Q4H PRN ORAL Mild Pain (Pain Scale 1-3) 06/18/20 00:15 07/18/20 00:14 06/24/20 17:51 Acetaminophen (Tylenol) 500 mg Q4H PRN ORAL Temp >100.5 06/18/20 00:15 07/18/20 00:14 06/29/20 20:01 Chlorhexidine Gluconate (Sissy-Hex 2%) 1 applic DAILY@2000 TOPIC 06/28/20 20:00 09/26/20 19:59 07/10/20 20:15 Dextrose (Dextrose 50%) 25 ml Q30M PRN IV Hypoglycemia 06/18/20 14:15 09/16/20 14:14 Dextrose (Dextrose 50%) 50 ml Q30M PRN IV Hypoglycemia 06/18/20 14:15 09/16/20 14:14 Docusate Sodium (Colace) 100 mg EVERY 8 HOURS NG 07/02/20 14:00 07/28/20 12:59 07/10/20 20:15 Famotidine (Pepcid I.v.) 20 mg BID IVP 07/10/20 09:00 08/09/20 08:59 07/11/20 08:39 Fentanyl Citrate 1000 mcg/Sodium Chloride 120 ml @ 0 mls/hr Q24H PRN IV SEDATION 07/09/20 21:00 07/11/20 20:59 07/11/20 07:00 Haloperidol Lactate (Haldol) 10 mg Q6H PRN IM Agitation 06/23/20 11:30 08/07/20 11:29 06/23/20 11:34 Insulin Aspart (NovoLOG) while NPO Q6HR SUBQ 06/18/20 18:00 09/16/20 17:59 07/10/20 14:24 Midazolam HCl 200 ml @ 0 mls/hr Q24H PRN IV SEDATION 07/11/20 00:00 07/18/20 00:00 07/11/20 07:00 Norepinephrine Bitartrate 250 ml @ 7.5 mls/hr Q24H IV 07/10/20 00:00 07/12/20 23:50 07/10/20 08:35 Sodium Chloride 1,000 ml @ 50 mls/hr Q20H IV 06/26/20 08:00 07/26/20 07:59 07/11/20 05:00 Vitamin D (Vitamin D) 2,000 unit DAILY GT 06/29/20 10:30 07/29/20 10:29 07/11/20 08:39 Laboratory Tests 07/11/20 05:50: White Blood Count 7.2, Red Blood Count 3.02L, Hemoglobin 9.0L, Hematocrit 29.9L, Mean Corpuscular Volume 99, Mean Corpuscular Hemoglobin 30.0, Mean Corpuscular Hemoglobin Concent 30.3L, Red Cell Distribution Width 17.2H, Platelet Count 230, Mean Platelet Volume 9.3, Neutrophils (%) (Auto) 79.3H, Lymphocytes (%) (Auto) 10.8L, Monocytes (%) (Auto) 5.0, Eosinophils (%) (Auto) 4.1H, Basophils (%) (Auto) 0.9, Sodium Level 143, Potassium Level 4.0, Chloride Level 104, Carbon Dioxide Level 37H, Anion Gap 2L, Blood Urea Nitrogen 14, Creatinine 0.4L, Estimat Glomerular Filtration Rate > 60, Glucose Level 103, Uric Acid 1.8L, Calcium Level 7.8L, Phosphorus Level 3.1, Magnesium Level 2.4, Total Bilirubin 0.4, Aspartate Amino Transf (AST/SGOT) 50H, Alanine Aminotransferase (ALT/SGPT) 40, Alkaline Phosphatase 167H, C-Reactive Protein, Quantitative 12.8H, Pro-B-Type Natriuretic Peptide 2265H, Total Protein 6.1L, Albumin 1.0L, Globulin 5.1, Albumin/Globulin Ratio 0.2L Height (Feet): 5 Height (Inches): 2.00 Weight (Pounds): 138 General Appearance: mild distress Cardiovascular: tachycardia Respiratory/Chest: decreased breath sounds, other - Bilateral chest tube Abdomen: distended Raza De Jesus MD Jul 11, 2020 11:53
--- NOTE | 2020-07-11 12:46 | Infectious Diseases Prog Note ---
Assessment/Plan Assessment/Plan A; Sepsis COVID19 pneumonia Hypoxic respiratory failure Acute kidney injury, resolving Hyperglycemia, DM type 2 Bilateral pneumothorax Leukocytosis resolved Anemia Hypotension P; Finished Remdesivir & Dexamethasone course Poor prognosis, DNR status Subjective ROS Limited/Unobtainable: Yes Allergies: Coded Allergies: No Known Allergies (Unverified , 06/17/20) Objective Last 24 Hour Vital Signs Date Time Temp Pulse Resp B/P (MAP) Pulse Ox O2 Delivery O2 Flow Rate FiO2 07/11/20 12:00 100 07/11/20 12:00 111 07/11/20 12:00 111 34 123/39 (67) 71 07/11/20 11:05 106 26 100 07/11/20 11:00 102 30 125/58 (80) 81 07/11/20 10:00 29 117/65 Endotracheal Tube 100 07/11/20 10:00 29 117/65 Endotracheal Tube 100 07/11/20 10:00 105 30 110/66 (81) 73 07/11/20 09:30 102 29 121/64 (83) 61 07/11/20 09:00 99 28 133/64 (87) 55 07/11/20 09:00 29 131/66 Endotracheal Tube 100 07/11/20 09:00 29 131/66 Endotracheal Tube 100 07/11/20 08:30 98 24 135/75 (95) 73 07/11/20 08:00 Mechanical Ventilator Mechanical Ventilator Mechanical Ventilator Mechanical Ventilator Mechanical Ventilator 07/11/20 08:00 25 151/74 Endotracheal Tube 100 07/11/20 08:00 25 151/74 Endotracheal Tube 100 07/11/20 08:00 97.5 91 22 121/70 (87) 92 07/11/20 08:00 108 07/11/20 08:00 100 07/11/20 07:35 94 21 100 07/11/20 07:30 96 19 123/67 (85) 79 07/11/20 07:00 25 150/79 Mechanical Ventilator 100 07/11/20 07:00 25 150/79 Mechanical Ventilator 100 07/11/20 07:00 87 25 150/79 (102) 80 07/11/20 06:30 90 23 105/60 (75) 94 07/11/20 06:00 93 25 104/62 (76) 93 07/11/20 06:00 25 104/62 100 07/11/20 05:30 99 21 117/62 (80) 92 07/11/20 05:00 102 33 145/72 (96) 87 07/11/20 05:00 33 145/72 Mechanical Ventilator 100 07/11/20 05:00 33 145/72 Mechanical Ventilator 100 07/11/20 04:30 102 29 125/74 (91) 80 07/11/20 04:00 100 07/11/20 04:00 113 07/11/20 04:00 113 31 121/62 (81) 89 07/11/20 04:00 31 121/62 Mechanical Ventilator 100 07/11/20 04:00 31 121/62 100 07/11/20 04:00 Mechanical Ventilator Mechanical Ventilator Mechanical Ventilator Mechanical Ventilator Mechanical Ventilator 07/11/20 03:50 114 35 100 07/11/20 03:30 112 32 132/55 (80) 86 07/11/20 03:00 110 34 125/64 (84) 86 07/11/20 03:00 34 125/64 Mechanical Ventilator 100 07/11/20 03:00 34 125/64 100 07/11/20 02:30 109 34 128/61 (83) 85 07/11/20 02:00 32 119/55 Mechanical Ventilator 100 07/11/20 02:00 32 119/55 100 07/11/20 02:00 109 32 119/55 (76) 86 07/11/20 01:30 109 34 133/59 (83) 86 07/11/20 01:00 32 Mechanical Ventilator 100 07/11/20 01:00 32 130/59 100 07/11/20 01:00 106 32 130/59 (82) 86 07/11/20 00:30 104 32 119/53 (75) 86 07/11/20 00:00 100 07/11/20 00:00 Mechanical Ventilator Mechanical Ventilator Mechanical Ventilator Mechanical Ventilator Mechanical Ventilator 07/11/20 00:00 94 07/11/20 00:00 31 Mechanical Ventilator 100 07/11/20 00:00 31 118/61 Mechanical Ventilator 100 07/11/20 00:00 100 31 118/61 (80) 86 07/10/20 23:30 97 31 113/57 (75) 89 07/10/20 23:02 95 32 100 07/10/20 23:00 95 30 111/54 (73) 89 07/10/20 23:00 30 Mechanical Ventilator 100 07/10/20 23:00 30 111/54 Mechanical Ventilator 100 07/10/20 23:00 30 111/54 100 07/10/20 22:30 95 32 93/52 (66) 91 07/10/20 22:00 32 Mechanical Ventilator 100 07/10/20 22:00 32 93/51 Mechanical Ventilator 100 07/10/20 22:00 92 32 93/51 (65) 94 07/10/20 21:00 92 30 83/54 (64) 90 07/10/20 21:00 30 Mechanical Ventilator 100 07/10/20 21:00 30 83/54 Mechanical Ventilator 100 07/10/20 20:30 94 31 103/78 (86) 83 07/10/20 20:00 94 07/10/20 20:00 100 07/10/20 20:00 32 87/49 Mechanical Ventilator 100 07/10/20 20:00 Mechanical Ventilator Mechanical Ventilator Mechanical Ventilator Mechanical Ventilator Mechanical Ventilator 07/10/20 20:00 94 32 87/49 (62) 82 07/10/20 19:30 91 24 86/50 (62) 89 07/10/20 19:29 90 22 100 07/10/20 19:00 91 23 94/54 (67) 90 07/10/20 19:00 23 Mechanical Ventilator 100 07/10/20 19:00 23 89/53 Mechanical Ventilator 100 07/10/20 18:00 26 Mechanical Ventilator 100 07/10/20 18:00 26 106/62 Mechanical Ventilator 100 07/10/20 18:00 97 25 140/88 (105) 87 07/10/20 17:30 102 23 132/86 (101) 86 07/10/20 17:00 105 27 141/80 (100) 81 07/10/20 17:00 28 Mechanical Ventilator 100 07/10/20 17:00 27 138/58 Mechanical Ventilator 100 07/10/20 16:30 112 28 138/58 (84) 78 07/10/20 16:00 117 07/10/20 16:00 Mechanical Ventilator Mechanical Ventilator Mechanical Ventilator Mechanical Ventilator Mechanical Ventilator 07/10/20 16:00 28 Mechanical Ventilator 100 07/10/20 16:00 28 143/79 Mechanical Ventilator 100 07/10/20 16:00 100 07/10/20 16:00 97.9 115 25 143/79 (100) 84 07/10/20 15:30 115 33 128/64 (85) 47 07/10/20 15:16 98.0 07/10/20 15:14 112 24 100 07/10/20 15:00 36 Mechanical Ventilator 100 07/10/20 15:00 36 159/75 Mechanical Ventilator 100 07/10/20 15:00 109 37 159/75 (103) 73 07/10/20 14:49 32 92/48 Mechanical Ventilator 100.0 100 07/10/20 14:46 32 Mechanical Ventilator 100.0 100 07/10/20 14:30 98 38 165/78 (107) 78 07/10/20 14:00 36 165/77 Mechanical Ventilator 100 07/10/20 14:00 94 36 159/76 (103) 80 07/10/20 13:30 97 35 102/59 (73) 86 07/10/20 13:00 97 35 101/50 (67) 87 07/10/20 13:00 35 97/55 Mechanical Ventilator 100 Height (Feet): 5 Height (Inches): 2.00 Weight (Pounds): 138 HEENT: other - orally intubated Respiratory/Chest: other - on ventilator, ITN7=386%, bilateral chest tubes Cardiovascular: tachycardia Abdomen: soft, non tender, other - OG tube Neurologic/Psychiatric: other - sedated Laboratory Tests Test 07/11/20 05:50 White Blood Count 7.2 K/UL (4.8-10.8) Red Blood Count 3.02 M/UL (4.20-5.40) L Hemoglobin 9.0 G/DL (12.0-16.0) L Hematocrit 29.9 % (37.0-47.0) L Mean Corpuscular Volume 99 FL (80-99) Mean Corpuscular Hemoglobin 30.0 PG (27.0-31.0) Mean Corpuscular Hemoglobin Concent 30.3 G/DL (32.0-36.0) L Red Cell Distribution Width 17.2 % (11.6-14.8) H Platelet Count 230 K/UL (150-450) Mean Platelet Volume 9.3 FL (6.5-10.1) Neutrophils (%) (Auto) 79.3 % (45.0-75.0) H Lymphocytes (%) (Auto) 10.8 % (20.0-45.0) L Monocytes (%) (Auto) 5.0 % (1.0-10.0) Eosinophils (%) (Auto) 4.1 % (0.0-3.0) H Basophils (%) (Auto) 0.9 % (0.0-2.0) Sodium Level 143 MMOL/L (136-145) Potassium Level 4.0 MMOL/L (3.5-5.1) Chloride Level 104 MMOL/L (98-107) Carbon Dioxide Level 37 MMOL/L (21-32) H Anion Gap 2 mmol/L (5-15) L Blood Urea Nitrogen 14 mg/dL (7-18) Creatinine 0.4 MG/DL (0.55-1.30) L Estimat Glomerular Filtration Rate > 60 mL/min (>60) Glucose Level 103 MG/DL (74-106) Uric Acid 1.8 MG/DL (2.6-7.2) L Calcium Level 7.8 MG/DL (8.5-10.1) L Phosphorus Level 3.1 MG/DL (2.5-4.9) Magnesium Level 2.4 MG/DL (1.8-2.4) Total Bilirubin 0.4 MG/DL (0.2-1.0) Aspartate Amino Transf (AST/SGOT) 50 U/L (15-37) H Alanine Aminotransferase (ALT/SGPT) 40 U/L (12-78) Alkaline Phosphatase 167 U/L (46-116) H C-Reactive Protein, Quantitative 12.8 mg/dL (0.00-0.90) H Pro-B-Type Natriuretic Peptide 2265 pg/mL (0-125) H Total Protein 6.1 G/DL (6.4-8.2) L Albumin 1.0 G/DL (3.4-5.0) L Globulin 5.1 g/dL Albumin/Globulin Ratio 0.2 (1.0-2.7) L Current Medications Medications (Trade) Dose Ordered Sig/Maya Route PRN Reason Start Time Stop Time Status Last Admin Dose Admin Acetaminophen (Tylenol) 500 mg Q4H PRN ORAL Mild Pain (Pain Scale 1-3) 06/18/20 00:15 07/18/20 00:14 06/24/20 17:51 Acetaminophen (Tylenol) 500 mg Q4H PRN ORAL Temp >100.5 06/18/20 00:15 07/18/20 00:14 06/29/20 20:01 Chlorhexidine Gluconate (Sissy-Hex 2%) 1 applic DAILY@2000 TOPIC 06/28/20 20:00 09/26/20 19:59 07/10/20 20:15 Dextrose (Dextrose 50%) 25 ml Q30M PRN IV Hypoglycemia 06/18/20 14:15 09/16/20 14:14 Dextrose (Dextrose 50%) 50 ml Q30M PRN IV Hypoglycemia 06/18/20 14:15 09/16/20 14:14 Docusate Sodium (Colace) 100 mg EVERY 8 HOURS NG 07/02/20 14:00 07/28/20 12:59 07/10/20 20:15 Famotidine (Pepcid I.v.) 20 mg BID IVP 07/10/20 09:00 08/09/20 08:59 07/11/20 08:39 Fentanyl Citrate 1000 mcg/Sodium Chloride 120 ml @ 0 mls/hr Q24H PRN IV SEDATION 07/09/20 21:00 07/11/20 20:59 07/11/20 07:00 Haloperidol Lactate (Haldol) 10 mg Q6H PRN IM Agitation 06/23/20 11:30 08/07/20 11:29 06/23/20 11:34 Insulin Aspart (NovoLOG) while NPO Q6HR SUBQ 06/18/20 18:00 09/16/20 17:59 07/11/20 12:04 Midazolam HCl 200 ml @ 0 mls/hr Q24H PRN IV SEDATION 07/11/20 00:00 07/18/20 00:00 07/11/20 07:00 Norepinephrine Bitartrate 250 ml @ 7.5 mls/hr Q24H IV 07/10/20 00:00 07/12/20 23:50 07/10/20 08:35 Sodium Chloride 1,000 ml @ 50 mls/hr Q20H IV 06/26/20 08:00 07/26/20 07:59 07/11/20 05:00 Vitamin D (Vitamin D) 2,000 unit DAILY GT 06/29/20 10:30 07/29/20 10:29 07/11/20 08:39 Raji Turpin MD Jul 11, 2020 12:45
--- NOTE | 2020-07-11 15:33 | NUR ---
INSURANCE FAXED CLINCALS AND REVIEW TO [facility] T: [phone] F: [phone]
--- NOTE | 2020-07-11 16:52 | Cardiac Electrophysiology PN ---
Assessment/Plan Assessment/Plan 1. Respiratory failure due to COVID pneumonia. Intubated on 100% Fio2. PEEP 12 Echo showed Nl EF 2. Bilateral pneumothoraces. S/P bilateral chest tube placement with minimal drainage but large air leak 3. Troponin elevation. Levels are low and flat could be demand ischemia vs Renal failure EKG shows sinus tachycardia at 110 beats per minute. 4. Hypernatremia with sodium of 155. Resolved 5. Hypotension. Off Levophed now. Off Coreg and Lasix 6. DNR DW RN and Dr Amaro Subjective Subjective Intubated in ICU on Fentanyl and Versed drip. Chest tubes have minimal drainage On 100% Fio2, PEEP 8 . Now off Levophed DNR Objective Last 24 Hour Vital Signs Date Time Temp Pulse Resp B/P (MAP) Pulse Ox O2 Delivery O2 Flow Rate FiO2 07/11/20 16:00 Mechanical Ventilator Mechanical Ventilator Mechanical Ventilator Mechanical Ventilator Mechanical Ventilator 07/11/20 16:00 100 07/11/20 16:00 115 07/11/20 15:00 127 35 126/70 (88) 52 07/11/20 14:38 128 37 100 07/11/20 14:00 117 35 153/81 (105) 71 07/11/20 13:00 113 29 93/62 (72) 79 07/11/20 12:00 Mechanical Ventilator Mechanical Ventilator Mechanical Ventilator Mechanical Ventilator Mechanical Ventilator 07/11/20 12:00 99.3 07/11/20 12:00 100 07/11/20 12:00 29 123/63 Endotracheal Tube 100 07/11/20 12:00 29 123/63 Endotracheal Tube 100 07/11/20 12:00 111 07/11/20 12:00 111 34 123/39 (67) 71 07/11/20 11:05 106 26 100 07/11/20 11:00 102 30 125/58 (80) 81 07/11/20 11:00 30 125/58 Endotracheal Tube 100 07/11/20 11:00 30 125/58 Endotracheal Tube 100 07/11/20 10:00 29 117/65 Endotracheal Tube 100 07/11/20 10:00 29 117/65 Endotracheal Tube 100 07/11/20 10:00 105 30 110/66 (81) 73 07/11/20 09:30 102 29 121/64 (83) 61 07/11/20 09:00 99 28 133/64 (87) 55 07/11/20 09:00 29 131/66 Endotracheal Tube 100 07/11/20 09:00 29 131/66 Endotracheal Tube 100 07/11/20 08:30 98 24 135/75 (95) 73 07/11/20 08:00 Mechanical Ventilator Mechanical Ventilator Mechanical Ventilator Mechanical Ventilator Mechanical Ventilator 07/11/20 08:00 25 151/74 Endotracheal Tube 100 07/11/20 08:00 25 151/74 Endotracheal Tube 100 07/11/20 08:00 97.5 91 22 121/70 (87) 92 07/11/20 08:00 108 07/11/20 08:00 100 07/11/20 07:35 94 21 100 07/11/20 07:30 96 19 123/67 (85) 79 07/11/20 07:00 25 150/79 Mechanical Ventilator 100 07/11/20 07:00 25 150/79 Mechanical Ventilator 100 07/11/20 07:00 87 25 150/79 (102) 80 07/11/20 06:30 90 23 105/60 (75) 94 07/11/20 06:00 93 25 104/62 (76) 93 07/11/20 06:00 25 104/62 100 07/11/20 05:30 99 21 117/62 (80) 92 07/11/20 05:00 102 33 145/72 (96) 87 07/11/20 05:00 33 145/72 Mechanical Ventilator 100 07/11/20 05:00 33 145/72 Mechanical Ventilator 100 07/11/20 04:30 102 29 125/74 (91) 80 07/11/20 04:00 100 07/11/20 04:00 113 07/11/20 04:00 113 31 121/62 (81) 89 07/11/20 04:00 31 121/62 Mechanical Ventilator 100 07/11/20 04:00 31 121/62 100 07/11/20 04:00 Mechanical Ventilator Mechanical Ventilator Mechanical Ventilator Mechanical Ventilator Mechanical Ventilator 07/11/20 03:50 114 35 100 07/11/20 03:30 112 32 132/55 (80) 86 07/11/20 03:00 110 34 125/64 (84) 86 07/11/20 03:00 34 125/64 Mechanical Ventilator 100 07/11/20 03:00 34 125/64 100 07/11/20 02:30 109 34 128/61 (83) 85 07/11/20 02:00 32 119/55 Mechanical Ventilator 100 07/11/20 02:00 32 119/55 100 07/11/20 02:00 109 32 119/55 (76) 86 07/11/20 01:30 109 34 133/59 (83) 86 07/11/20 01:00 32 Mechanical Ventilator 100 07/11/20 01:00 32 130/59 100 07/11/20 01:00 106 32 130/59 (82) 86 07/11/20 00:30 104 32 119/53 (75) 86 07/11/20 00:00 100 07/11/20 00:00 Mechanical Ventilator Mechanical Ventilator Mechanical Ventilator Mechanical Ventilator Mechanical Ventilator 07/11/20 00:00 94 07/11/20 00:00 31 Mechanical Ventilator 100 07/11/20 00:00 31 118/61 Mechanical Ventilator 100 07/11/20 00:00 100 31 118/61 (80) 86 07/10/20 23:30 97 31 113/57 (75) 89 07/10/20 23:02 95 32 100 07/10/20 23:00 95 30 111/54 (73) 89 07/10/20 23:00 30 Mechanical Ventilator 100 07/10/20 23:00 30 111/54 Mechanical Ventilator 100 07/10/20 23:00 30 111/54 100 07/10/20 22:30 95 32 93/52 (66) 91 07/10/20 22:00 32 Mechanical Ventilator 100 07/10/20 22:00 32 93/51 Mechanical Ventilator 100 07/10/20 22:00 92 32 93/51 (65) 94 07/10/20 21:00 92 30 83/54 (64) 90 07/10/20 21:00 30 Mechanical Ventilator 100 07/10/20 21:00 30 83/54 Mechanical Ventilator 100 07/10/20 20:30 94 31 103/78 (86) 83 07/10/20 20:00 94 07/10/20 20:00 100 07/10/20 20:00 32 87/49 Mechanical Ventilator 100 07/10/20 20:00 Mechanical Ventilator Mechanical Ventilator Mechanical Ventilator Mechanical Ventilator Mechanical Ventilator 07/10/20 20:00 94 32 87/49 (62) 82 07/10/20 19:30 91 24 86/50 (62) 89 07/10/20 19:29 90 22 100 07/10/20 19:00 91 23 94/54 (67) 90 07/10/20 19:00 23 Mechanical Ventilator 100 07/10/20 19:00 23 89/53 Mechanical Ventilator 100 07/10/20 18:00 26 Mechanical Ventilator 100 07/10/20 18:00 26 106/62 Mechanical Ventilator 100 07/10/20 18:00 97 25 140/88 (105) 87 07/10/20 17:30 102 23 132/86 (101) 86 07/10/20 17:00 105 27 141/80 (100) 81 07/10/20 17:00 28 Mechanical Ventilator 100 07/10/20 17:00 27 138/58 Mechanical Ventilator 100 Intake and Output 07/10/20 07/11/20 19:00 07:00 Intake Total 1729.15 ml 1410.45 ml Output Total 635 ml 480 ml Balance 1094.15 ml 930.45 ml Intake Free Water 120 ml 30 ml IV Total 949.15 ml 720.45 ml Tube Feeding 660 ml 660 ml Output Urine Total 450 ml 480 ml Chest Tube Drainage Total 185 ml Laboratory Tests Test 07/11/20 05:50 White Blood Count 7.2 K/UL (4.8-10.8) Red Blood Count 3.02 M/UL (4.20-5.40) L Hemoglobin 9.0 G/DL (12.0-16.0) L Hematocrit 29.9 % (37.0-47.0) L Mean Corpuscular Volume 99 FL (80-99) Mean Corpuscular Hemoglobin 30.0 PG (27.0-31.0) Mean Corpuscular Hemoglobin Concent 30.3 G/DL (32.0-36.0) L Red Cell Distribution Width 17.2 % (11.6-14.8) H Platelet Count 230 K/UL (150-450) Mean Platelet Volume 9.3 FL (6.5-10.1) Neutrophils (%) (Auto) 79.3 % (45.0-75.0) H Lymphocytes (%) (Auto) 10.8 % (20.0-45.0) L Monocytes (%) (Auto) 5.0 % (1.0-10.0) Eosinophils (%) (Auto) 4.1 % (0.0-3.0) H Basophils (%) (Auto) 0.9 % (0.0-2.0) Sodium Level 143 MMOL/L (136-145) Potassium Level 4.0 MMOL/L (3.5-5.1) Chloride Level 104 MMOL/L (98-107) Carbon Dioxide Level 37 MMOL/L (21-32) H Anion Gap 2 mmol/L (5-15) L Blood Urea Nitrogen 14 mg/dL (7-18) Creatinine 0.4 MG/DL (0.55-1.30) L Estimat Glomerular Filtration Rate > 60 mL/min (>60) Glucose Level 103 MG/DL (74-106) Uric Acid 1.8 MG/DL (2.6-7.2) L Calcium Level 7.8 MG/DL (8.5-10.1) L Phosphorus Level 3.1 MG/DL (2.5-4.9) Magnesium Level 2.4 MG/DL (1.8-2.4) Total Bilirubin 0.4 MG/DL (0.2-1.0) Aspartate Amino Transf (AST/SGOT) 50 U/L (15-37) H Alanine Aminotransferase (ALT/SGPT) 40 U/L (12-78) Alkaline Phosphatase 167 U/L (46-116) H C-Reactive Protein, Quantitative 12.8 mg/dL (0.00-0.90) H Pro-B-Type Natriuretic Peptide 2265 pg/mL (0-125) H Total Protein 6.1 G/DL (6.4-8.2) L Albumin 1.0 G/DL (3.4-5.0) L Globulin 5.1 g/dL Albumin/Globulin Ratio 0.2 (1.0-2.7) L Objective HEAD AND NECK: No JVD. Orally intubated LUNGS: Coarse rhonchi bilaterally. Bilateral chest tubes in. CARDIOVASCULAR: Regular S1 and S2 and no murmur ABDOMEN: Soft. EXTREMITIES: No pitting edema. Maxwell Carreon MD Jul 11, 2020 16:52
--- NOTE | 2020-07-11 18:48 | NUR ---
0730: Received report from NORMAN Schmitz. Pt remains intubated and sedated. Pt has a right and left chest tube. Pt with PICC line to R UA as well as peripheral IV to L FA. Pt with helms and OGT infusing Glucerna at 55. Pt with versed, fentanyl, and levophed infusing at this time. Pt on cooling blanket. Bed in lowest position. Will continue to monitor closely. 0900: Pt with O2 saturation in 70's. MD Sewell aware. No new orders. Will continue to monitor. 1700: Pt raised up in bed with increase in O2 saturation. Will continue to monitor.
--- NOTE | 2020-07-11 19:10 | NUR ---
NURSE NOTES: Pt report received from Elmer Colvin RN. pt condition remains unchanged. pt is sedated neuro gilbert, no acute neuro abnormalities noted. pt is on [employer] physician showing ST, 120s HR, doctor is aware. pt is oral intubated/ vented, sating 98% O2, no acute resp distress noted. pt bed is low, locked, armed, call light within reach, will follow plan of care.
[2020-07-11] MEDS: Dyna-Hex 2% Top Sol 2oz TOPIC SCH (20:36)
--- NOTE | 2020-07-11 20:56 | General Progress Note ---
Subjective ROS Limited/Unobtainable: Yes Allergies: Coded Allergies: No Known Allergies (Unverified , 06/17/20) Objective Last 24 Hour Vital Signs Date Time Temp Pulse Resp B/P (MAP) Pulse Ox O2 Delivery O2 Flow Rate FiO2 07/11/20 19:58 131 32 100 07/11/20 19:13 32 119/69 100 07/11/20 18:50 123 29 100 07/11/20 18:00 20 99/65 Endotracheal Tube 100 07/11/20 18:00 20 99/65 Endotracheal Tube 100 07/11/20 18:00 120 20 99/65 (76) 77 07/11/20 17:12 115 20 100 07/11/20 17:00 115 20 126/70 (88) 94 07/11/20 17:00 20 126/70 Endotracheal Tube 100 07/11/20 17:00 20 126/70 Endotracheal Tube 100 07/11/20 16:00 Mechanical Ventilator Mechanical Ventilator Mechanical Ventilator Mechanical Ventilator Mechanical Ventilator 07/11/20 16:00 98.2 117 23 99/63 (75) 65 07/11/20 16:00 100 07/11/20 16:00 23 99/63 Endotracheal Tube 100 07/11/20 16:00 23 99/63 Endotracheal Tube 100 07/11/20 16:00 115 07/11/20 15:00 35 126/70 Endotracheal Tube 100 07/11/20 15:00 35 126/70 Endotracheal Tube 100 07/11/20 15:00 127 35 126/70 (88) 52 07/11/20 14:38 128 37 100 07/11/20 14:00 117 35 153/81 (105) 71 07/11/20 14:00 35 153/81 Endotracheal Tube 100 07/11/20 14:00 35 153/81 Endotracheal Tube 100 07/11/20 13:00 113 29 93/62 (72) 79 07/11/20 13:00 29 93/62 Endotracheal Tube 100 07/11/20 13:00 29 93/62 Endotracheal Tube 100 07/11/20 12:00 Mechanical Ventilator Mechanical Ventilator Mechanical Ventilator Mechanical Ventilator Mechanical Ventilator 07/11/20 12:00 99.3 07/11/20 12:00 100 07/11/20 12:00 29 123/63 Endotracheal Tube 100 07/11/20 12:00 29 123/63 Endotracheal Tube 100 07/11/20 12:00 111 07/11/20 12:00 111 34 123/39 (67) 71 07/11/20 11:05 106 26 100 07/11/20 11:00 102 30 125/58 (80) 81 07/11/20 11:00 30 125/58 Endotracheal Tube 100 07/11/20 11:00 30 125/58 Endotracheal Tube 100 07/11/20 10:00 29 117/65 Endotracheal Tube 100 07/11/20 10:00 29 117/65 Endotracheal Tube 100 07/11/20 10:00 105 30 110/66 (81) 73 07/11/20 09:30 102 29 121/64 (83) 61 07/11/20 09:00 99 28 133/64 (87) 55 07/11/20 09:00 29 131/66 Endotracheal Tube 100 07/11/20 09:00 29 131/66 Endotracheal Tube 100 07/11/20 08:30 98 24 135/75 (95) 73 07/11/20 08:00 Mechanical Ventilator Mechanical Ventilator Mechanical Ventilator Mechanical Ventilator Mechanical Ventilator 07/11/20 08:00 25 151/74 Endotracheal Tube 100 07/11/20 08:00 25 151/74 Endotracheal Tube 100 07/11/20 08:00 97.5 91 22 121/70 (87) 92 07/11/20 08:00 108 07/11/20 08:00 100 07/11/20 07:35 94 21 100 07/11/20 07:30 96 19 123/67 (85) 79 07/11/20 07:00 25 150/79 Mechanical Ventilator 100 07/11/20 07:00 25 150/79 Mechanical Ventilator 100 07/11/20 07:00 87 25 150/79 (102) 80 07/11/20 06:30 90 23 105/60 (75) 94 07/11/20 06:00 93 25 104/62 (76) 93 07/11/20 06:00 25 104/62 100 07/11/20 05:30 99 21 117/62 (80) 92 07/11/20 05:00 102 33 145/72 (96) 87 07/11/20 05:00 33 145/72 Mechanical Ventilator 100 07/11/20 05:00 33 145/72 Mechanical Ventilator 100 07/11/20 04:30 102 29 125/74 (91) 80 07/11/20 04:00 100 07/11/20 04:00 113 07/11/20 04:00 113 31 121/62 (81) 89 07/11/20 04:00 31 121/62 Mechanical Ventilator 100 07/11/20 04:00 31 121/62 100 07/11/20 04:00 Mechanical Ventilator Mechanical Ventilator Mechanical Ventilator Mechanical Ventilator Mechanical Ventilator 07/11/20 03:50 114 35 100 07/11/20 03:30 112 32 132/55 (80) 86 07/11/20 03:00 110 34 125/64 (84) 86 07/11/20 03:00 34 125/64 Mechanical Ventilator 100 07/11/20 03:00 34 125/64 100 07/11/20 02:30 109 34 128/61 (83) 85 07/11/20 02:00 32 119/55 Mechanical Ventilator 100 07/11/20 02:00 32 119/55 100 07/11/20 02:00 109 32 119/55 (76) 86 07/11/20 01:30 109 34 133/59 (83) 86 07/11/20 01:00 32 Mechanical Ventilator 100 07/11/20 01:00 32 130/59 100 07/11/20 01:00 106 32 130/59 (82) 86 07/11/20 00:30 104 32 119/53 (75) 86 07/11/20 00:00 100 07/11/20 00:00 Mechanical Ventilator Mechanical Ventilator Mechanical Ventilator Mechanical Ventilator Mechanical Ventilator 07/11/20 00:00 94 07/11/20 00:00 31 Mechanical Ventilator 100 07/11/20 00:00 31 118/61 Mechanical Ventilator 100 07/11/20 00:00 100 31 118/61 (80) 86 07/10/20 23:30 97 31 113/57 (75) 89 07/10/20 23:02 95 32 100 07/10/20 23:00 95 30 111/54 (73) 89 07/10/20 23:00 30 Mechanical Ventilator 100 07/10/20 23:00 30 111/54 Mechanical Ventilator 100 07/10/20 23:00 30 111/54 100 07/10/20 22:30 95 32 93/52 (66) 91 07/10/20 22:00 32 Mechanical Ventilator 100 07/10/20 22:00 32 93/51 Mechanical Ventilator 100 07/10/20 22:00 92 32 93/51 (65) 94 07/10/20 21:00 92 30 83/54 (64) 90 07/10/20 21:00 30 Mechanical Ventilator 100 07/10/20 21:00 30 83/54 Mechanical Ventilator 100 Intake and Output 07/10/20 07/11/20 19:00 07:00 Intake Total 1729.15 ml 1410.45 ml Output Total 635 ml 480 ml Balance 1094.15 ml 930.45 ml Intake Free Water 120 ml 30 ml IV Total 949.15 ml 720.45 ml Tube Feeding 660 ml 660 ml Output Urine Total 450 ml 480 ml Chest Tube Drainage Total 185 ml Laboratory Tests 07/11/20 05:50: White Blood Count 7.2, Red Blood Count 3.02L, Hemoglobin 9.0L, Hematocrit 29.9L, Mean Corpuscular Volume 99, Mean Corpuscular Hemoglobin 30.0, Mean Corpuscular Hemoglobin Concent 30.3L, Red Cell Distribution Width 17.2H, Platelet Count 230, Mean Platelet Volume 9.3, Neutrophils (%) (Auto) 79.3H, Lymphocytes (%) (Auto) 10.8L, Monocytes (%) (Auto) 5.0, Eosinophils (%) (Auto) 4.1H, Basophils (%) (Auto) 0.9, Sodium Level 143, Potassium Level 4.0, Chloride Level 104, Carbon Dioxide Level 37H, Anion Gap 2L, Blood Urea Nitrogen 14, Creatinine 0.4L, Estimat Glomerular Filtration Rate > 60, Glucose Level 103, Uric Acid 1.8L, Calcium Level 7.8L, Phosphorus Level 3.1, Magnesium Level 2.4, Total Bilirubin 0.4, Aspartate Amino Transf (AST/SGOT) 50H, Alanine Aminotransferase (ALT/SGPT) 40, Alkaline Phosphatase 167H, C-Reactive Protein, Quantitative 12.8H, Pro-B-Type Natriuretic Peptide 2265H, Total Protein 6.1L, Albumin 1.0L, Globulin 5.1, Albumin/Globulin Ratio 0.2L Height (Feet): 5 Height (Inches): 2.00 Weight (Pounds): 138 Assessment/Plan Problem List: (1) Elevated d-dimer ICD Codes: R79.89 - Other specified abnormal findings of blood chemistry SNOMED: 963709357 (2) Renal insufficiency ICD Codes: N28.9 - Disorder of kidney and ureter, unspecified SNOMED: 784951821, 465927619 (3) PNA (pneumonia) ICD Codes: J18.9 - Pneumonia, unspecified organism SNOMED: 650130615 (4) Dehydration ICD Codes: E86.0 - Dehydration SNOMED: 24181110 (5) LEONARDO (acute kidney injury) ICD Codes: N17.9 - Acute kidney failure, unspecified SNOMED: 8321170, 84466099 (6) Hypoxia ICD Codes: R09.02 - Hypoxemia; J12.82 - Pneumonia due to coronavirus disease 2019 SNOMED: 941469526 (7) Pneumonia due to COVID-19 virus ICD Codes: U07.1 - COVID-19; J12.82 - Pneumonia due to coronavirus disease 2019 SNOMED: 069575122754412192 (8) DMII (diabetes mellitus, type 2) ICD Codes: E11.9 - Type 2 diabetes mellitus without complications SNOMED: 96644943 Status: progressing, unchanged Assessment/Plan: covid + not improving comatose septic shock started on pressors intubated very poor prognosis bilat chest tube recurrent Vidya Clayton MD Jul 11, 2020 20:56
--- NOTE | 2020-07-11 21:20 | NUR ---
NURSE NOTES: pts 9PM meds passed. vital signs stable.
[2020-07-11] MEDS: Norepinephrine 4mg/NS Premix 250 ML IV SCH (23:02)
--- NOTE | 2020-07-11 23:30 | NUR ---
NURSE NOTES: pts sedations running per doctor order/ protocol. vital signs stable.
[2020-07-12] VITALS (24 sets, daily range): BP systolic 84–135; BP diastolic 55–83
--- NOTE | 2020-07-12 01:40 | NUR ---
NURSE NOTES: pt turned cleaned and repositioned. vital signs stable.
--- NOTE | 2020-07-12 03:40 | NUR ---
NURSE NOTES: IV Drips running per doctor order/ protocol. no change in condition. pt remains sedated. vital signs stable.
[2020-07-12] MEDS: NovoLOG Insulin Flexpen SUBQ SCH ×3 (05:13→17:28)
[2020-07-12] MEDS: Docusate 100mg/10ml Liq NG SCH ×3 (05:14→21:21)
--- NOTE | 2020-07-12 05:30 | NUR ---
NURSE NOTES: AM meds passed. vital signs stable. no change in condition.
--- NOTE | 2020-07-12 06:47 | Hematology/Onc Progress Note ---
Assessment/Plan Assessment/Plan Assessment and recs # Leukocytosis with Pneumonia due to COVID-19 virus -> wbc trend 15-->11-->10->17-->18->11->21->9 --> ABX as per id ctx-->off-->cefepime --> imaging does show pna --> anticoag recommended --> on remdesivir # Anemia of chronic disease --> hgb 12->10-->9-->11-->10.8->10-->9.6-->8.8 -> transfuse prn --> r/o hemolysis # Thrombocytopenia due to likely plt destruction, Covid19++ with Hypoxia -> steriods, abx per id --> plt 117-->121-->124->77-->90-->132-->174 --> smear is noted # Elevated ddimer due to covid --> duplex legs -> LOVENOX sq # Renal insufficiency -> per renal care # Sepsis due to above --> abx, fluid resuscitation # Dvt ppx lovenox sq Appreciate consultation and mehran RN Subjective Allergies: Coded Allergies: No Known Allergies (Unverified , 06/17/20) Subjective 06/19 sleeping, comfortable, on bipap, meds have been reviewed 06/21 on bipap, labs have been reviewed, no major events 06/22 bipap labs reviewed, meds noted, no bleeding 06/23 bipap labs noted, no bleeding, meds reviewed, mehran rn 06/24 on vent, labs reviewed, meds reviewed 06/25 on vent, with ctx as abx, labs noted, no bleeding 06/26 vent, with ogt, with helms, labs noted, no bleeding plts lower 06/28 labs are pending, on vent, helms intract, no new changes 06/29 icu, on vent, hgb 11, plt 124, meds noted, on ctx 06/30 icu, edematous, is on vent, labs reviewed, abx 07/01 icu, on vent, labs noted, no bleeding, plt 77, labs ordered 07/02 icu, nv, meds noted, no bleeding, plt 91, hgb 9 07/03 icu, nv, meds noted, right chest tube with output, hgb 10 07/05 icu, nv, meds reviewed, labs noted, b/l chest tubes in place 07/06 icu, nv, meds, labs have been ordered, chest tube draining 07/07 icu, chest tubes, on fen, versed, no major changes 07/08 icu, v, chest xray is noted, with worsening right pneumothorax, labs noted 07/09 meds noted, vent, labs reviewed, smear noted. lovenox bid 07/10 icu, on vent, nv, labs reviewed, chest tube functional, on anticoag 07/11 icu, meds noted, nv, on vent, no bleeding, anticoag Objective Objective Current Medications Medications (Trade) Dose Ordered Sig/Maya Route PRN Reason Start Time Stop Time Status Last Admin Dose Admin Acetaminophen (Tylenol) 500 mg Q4H PRN ORAL Mild Pain (Pain Scale 1-3) 06/18/20 00:15 07/18/20 00:14 06/24/20 17:51 Acetaminophen (Tylenol) 500 mg Q4H PRN ORAL Temp >100.5 06/18/20 00:15 07/18/20 00:14 06/29/20 20:01 Chlorhexidine Gluconate (Sissy-Hex 2%) 1 applic DAILY@2000 TOPIC 06/28/20 20:00 09/26/20 19:59 07/11/20 20:36 Dextrose (Dextrose 50%) 25 ml Q30M PRN IV Hypoglycemia 06/18/20 14:15 09/16/20 14:14 Dextrose (Dextrose 50%) 50 ml Q30M PRN IV Hypoglycemia 06/18/20 14:15 09/16/20 14:14 Docusate Sodium (Colace) 100 mg EVERY 8 HOURS NG 07/02/20 14:00 07/28/20 12:59 07/12/20 05:14 Famotidine (Pepcid I.v.) 20 mg BID IVP 07/10/20 09:00 08/09/20 08:59 07/11/20 18:16 Haloperidol Lactate (Haldol) 10 mg Q6H PRN IM Agitation 06/23/20 11:30 08/07/20 11:29 06/23/20 11:34 Insulin Aspart (NovoLOG) while NPO Q6HR SUBQ 06/18/20 18:00 09/16/20 17:59 07/11/20 23:09 Midazolam HCl 200 ml @ 0 mls/hr Q24H PRN IV SEDATION 07/11/20 00:00 07/18/20 00:00 07/11/20 23:15 Norepinephrine Bitartrate 250 ml @ 7.5 mls/hr Q24H IV 07/10/20 00:00 07/12/20 23:50 07/10/20 08:35 Sodium Chloride 1,000 ml @ 50 mls/hr Q20H IV 06/26/20 08:00 07/26/20 07:59 07/12/20 04:22 Vitamin D (Vitamin D) 2,000 unit DAILY GT 06/29/20 10:30 07/29/20 10:29 07/11/20 08:39 Last 24 Hour Vital Signs Date Time Temp Pulse Resp B/P (MAP) Pulse Ox O2 Delivery O2 Flow Rate FiO2 07/12/20 06:00 19 113/79 Mechanical Ventilator 100 07/12/20 06:00 20 113/79 Mechanical Ventilator 100 07/12/20 06:00 107 31 135/81 (99) 80 07/12/20 05:00 111 32 91/63 (72) 87 07/12/20 05:00 19 105/73 Mechanical Ventilator 100 07/12/20 05:00 19 105/73 Mechanical Ventilator 100 07/12/20 04:00 98.7 114 33 103/67 (79) 78 07/12/20 04:00 19 125/73 Mechanical Ventilator 100 07/12/20 04:00 20 125/73 Mechanical Ventilator 100 07/12/20 04:00 Mechanical Ventilator Mechanical Ventilator Mechanical Ventilator Mechanical Ventilator Mechanical Ventilator 07/12/20 04:00 100 07/12/20 03:00 19 129/80 Mechanical Ventilator 100 07/12/20 03:00 19 129/80 Mechanical Ventilator 100 07/12/20 03:00 114 32 105/68 (80) 74 07/12/20 02:00 20 134/86 Mechanical Ventilator 100 07/12/20 02:00 20 140/78 100 07/12/20 02:00 121 25 108/68 (81) 77 07/12/20 01:43 121 37 100 07/12/20 01:00 125 31 119/72 (88) 73 07/12/20 01:00 20 122/62 Mechanical Ventilator 100 07/12/20 01:00 20 142/95 Mechanical Ventilator 100 07/12/20 00:00 100 07/12/20 00:00 19 135/83 Mechanical Ventilator 100 07/12/20 00:00 19 112/82 Mechanical Ventilator 100 07/12/20 00:00 98.3 128 26 106/64 (78) 76 07/12/20 00:00 Mechanical Ventilator Mechanical Ventilator Mechanical Ventilator Mechanical Ventilator Mechanical Ventilator 07/11/20 23:15 19 130/77 Mechanical Ventilator 100 07/11/20 23:10 19 125/85 Mechanical Ventilator 100 07/11/20 23:02 128/73 07/11/20 23:00 126 32 130/77 (94) 73 07/11/20 23:00 20 125/85 Mechanical Ventilator 100 07/11/20 23:00 20 115/82 Mechanical Ventilator 100 07/11/20 22:00 128 27 123/69 (87) 67 07/11/20 22:00 19 131/75 Mechanical Ventilator 100 07/11/20 22:00 19 135/67 Mechanical Ventilator 100 07/11/20 21:00 131 27 117/69 (85) 82 07/11/20 21:00 18 142/82 Endotracheal Tube 100 07/11/20 21:00 19 147/84 Endotracheal Tube 100 07/11/20 21:00 19 133/79 Endotracheal Tube 100 07/11/20 20:00 Mechanical Ventilator Mechanical Ventilator Mechanical Ventilator Mechanical Ventilator Mechanical Ventilator 07/11/20 20:00 98.6 129 31 100/67 (78) 73 07/11/20 20:00 20 130/85 Endotracheal Tube 100 07/11/20 20:00 18 118/75 Endotracheal Tube 100 07/11/20 20:00 100 07/11/20 19:58 131 32 100 07/11/20 19:13 32 119/69 100 07/11/20 19:00 126 31 119/69 (86) 60 07/11/20 19:00 18 132/74 Endotracheal Tube 100 07/11/20 18:50 123 29 100 07/11/20 18:00 20 99/65 Endotracheal Tube 100 07/11/20 18:00 20 99/65 Endotracheal Tube 100 07/11/20 18:00 120 20 99/65 (76) 77 07/11/20 17:12 115 20 100 07/11/20 17:00 115 20 126/70 (88) 94 07/11/20 17:00 20 126/70 Endotracheal Tube 100 07/11/20 17:00 20 126/70 Endotracheal Tube 100 07/11/20 16:00 Mechanical Ventilator Mechanical Ventilator Mechanical Ventilator Mechanical Ventilator Mechanical Ventilator 07/11/20 16:00 98.2 117 23 99/63 (75) 65 07/11/20 16:00 100 07/11/20 16:00 23 99/63 Endotracheal Tube 100 07/11/20 16:00 23 99/63 Endotracheal Tube 100 07/11/20 16:00 115 07/11/20 15:00 35 126/70 Endotracheal Tube 100 07/11/20 15:00 35 126/70 Endotracheal Tube 100 07/11/20 15:00 127 35 126/70 (88) 52 07/11/20 14:38 128 37 100 07/11/20 14:00 117 35 153/81 (105) 71 07/11/20 14:00 35 153/81 Endotracheal Tube 100 07/11/20 14:00 35 153/81 Endotracheal Tube 100 07/11/20 13:00 113 29 93/62 (72) 79 07/11/20 13:00 29 93/62 Endotracheal Tube 100 07/11/20 13:00 29 93/62 Endotracheal Tube 100 07/11/20 12:00 Mechanical Ventilator Mechanical Ventilator Mechanical Ventilator Mechanical Ventilator Mechanical Ventilator 07/11/20 12:00 99.3 07/11/20 12:00 100 07/11/20 12:00 29 123/63 Endotracheal Tube 100 07/11/20 12:00 29 123/63 Endotracheal Tube 100 07/11/20 12:00 111 07/11/20 12:00 111 34 123/39 (67) 71 07/11/20 11:05 106 26 100 07/11/20 11:00 102 30 125/58 (80) 81 07/11/20 11:00 30 125/58 Endotracheal Tube 100 07/11/20 11:00 30 125/58 Endotracheal Tube 100 07/11/20 10:00 29 117/65 Endotracheal Tube 100 07/11/20 10:00 29 117/65 Endotracheal Tube 100 07/11/20 10:00 105 30 110/66 (81) 73 07/11/20 09:30 102 29 121/64 (83) 61 07/11/20 09:00 99 28 133/64 (87) 55 07/11/20 09:00 29 131/66 Endotracheal Tube 100 07/11/20 09:00 29 131/66 Endotracheal Tube 100 07/11/20 08:30 98 24 135/75 (95) 73 07/11/20 08:00 Mechanical Ventilator Mechanical Ventilator Mechanical Ventilator Mechanical Ventilator Mechanical Ventilator 07/11/20 08:00 25 151/74 Endotracheal Tube 100 07/11/20 08:00 25 151/74 Endotracheal Tube 100 07/11/20 08:00 97.5 91 22 121/70 (87) 92 07/11/20 08:00 108 07/11/20 08:00 100 07/11/20 07:35 94 21 100 07/11/20 07:30 96 19 123/67 (85) 79 07/11/20 07:00 25 150/79 Mechanical Ventilator 100 07/11/20 07:00 25 150/79 Mechanical Ventilator 100 07/11/20 07:00 87 25 150/79 (102) 80 07/11/20 06:30 90 23 105/60 (75) 94 07/11/20 06:00 93 25 104/62 (76) 93 07/11/20 06:00 25 104/62 100 07/11/20 05:30 99 21 117/62 (80) 92 07/11/20 05:00 102 33 145/72 (96) 87 07/11/20 05:00 33 145/72 Mechanical Ventilator 100 07/11/20 05:00 33 145/72 Mechanical Ventilator 100 07/11/20 04:30 102 29 125/74 (91) 80 07/11/20 04:00 100 07/11/20 04:00 113 07/11/20 04:00 113 31 121/62 (81) 89 07/11/20 04:00 31 121/62 Mechanical Ventilator 100 07/11/20 04:00 31 121/62 100 07/11/20 04:00 Mechanical Ventilator Mechanical Ventilator Mechanical Ventilator Mechanical Ventilator Mechanical Ventilator 07/11/20 03:50 114 35 100 07/11/20 03:30 112 32 132/55 (80) 86 07/11/20 03:00 110 34 125/64 (84) 86 07/11/20 03:00 34 125/64 Mechanical Ventilator 100 07/11/20 03:00 34 125/64 100 2/20/21 02:30 109 34 128/61 (83) 85 07/11/20 02:00 32 119/55 Mechanical Ventilator 100 07/11/20 02:00 32 119/55 100 07/11/20 02:00 109 32 119/55 (76) 86 07/11/20 01:30 109 34 133/59 (83) 86 07/11/20 01:00 32 Mechanical Ventilator 100 07/11/20 01:00 32 130/59 100 07/11/20 01:00 106 32 130/59 (82) 86 07/11/20 00:30 104 32 119/53 (75) 86 07/11/20 00:00 100 07/11/20 00:00 Mechanical Ventilator Mechanical Ventilator Mechanical Ventilator Mechanical Ventilator Mechanical Ventilator 07/11/20 00:00 94 07/11/20 00:00 31 Mechanical Ventilator 100 07/11/20 00:00 31 118/61 Mechanical Ventilator 100 07/11/20 00:00 100 31 118/61 (80) 86 07/10/20 23:30 97 31 113/57 (75) 89 07/10/20 23:02 95 32 100 07/10/20 23:00 95 30 111/54 (73) 89 07/10/20 23:00 30 Mechanical Ventilator 100 07/10/20 23:00 30 111/54 Mechanical Ventilator 100 07/10/20 23:00 30 111/54 100 07/10/20 22:30 95 32 93/52 (66) 91 07/10/20 22:00 32 Mechanical Ventilator 100 07/10/20 22:00 32 93/51 Mechanical Ventilator 100 07/10/20 22:00 92 32 93/51 (65) 94 07/10/20 21:00 92 30 83/54 (64) 90 07/10/20 21:00 30 Mechanical Ventilator 100 07/10/20 21:00 30 83/54 Mechanical Ventilator 100 07/10/20 20:30 94 31 103/78 (86) 83 07/10/20 20:00 94 07/10/20 20:00 100 07/10/20 20:00 32 87/49 Mechanical Ventilator 100 07/10/20 20:00 Mechanical Ventilator Mechanical Ventilator Mechanical Ventilator Mechanical Ventilator Mechanical Ventilator 07/10/20 20:00 94 32 87/49 (62) 82 07/10/20 19:30 91 24 86/50 (62) 89 07/10/20 19:29 90 22 100 07/10/20 19:00 91 23 94/54 (67) 90 07/10/20 19:00 23 Mechanical Ventilator 100 07/10/20 19:00 23 89/53 Mechanical Ventilator 100 07/10/20 18:00 26 Mechanical Ventilator 100 07/10/20 18:00 26 106/62 Mechanical Ventilator 100 07/10/20 18:00 97 25 140/88 (105) 87 07/10/20 17:30 102 23 132/86 (101) 86 07/10/20 17:00 105 27 141/80 (100) 81 07/10/20 17:00 28 Mechanical Ventilator 100 07/10/20 17:00 27 138/58 Mechanical Ventilator 100 07/10/20 16:30 112 28 138/58 (84) 78 07/10/20 16:00 117 07/10/20 16:00 Mechanical Ventilator Mechanical Ventilator Mechanical Ventilator Mechanical Ventilator Mechanical Ventilator 07/10/20 16:00 28 Mechanical Ventilator 100 07/10/20 16:00 28 143/79 Mechanical Ventilator 100 07/10/20 16:00 100 07/10/20 16:00 97.9 115 25 143/79 (100) 84 07/10/20 15:30 115 33 128/64 (85) 47 07/10/20 15:16 98.0 07/10/20 15:14 112 24 100 07/10/20 15:00 36 Mechanical Ventilator 100 07/10/20 15:00 36 159/75 Mechanical Ventilator 100 07/10/20 15:00 109 37 159/75 (103) 73 07/10/20 14:49 32 92/48 Mechanical Ventilator 100.0 100 07/10/20 14:46 32 Mechanical Ventilator 100.0 100 07/10/20 14:30 98 38 165/78 (107) 78 07/10/20 14:00 36 165/77 Mechanical Ventilator 100 07/10/20 14:00 94 36 159/76 (103) 80 07/10/20 13:30 97 35 102/59 (73) 86 07/10/20 13:00 97 35 101/50 (67) 87 07/10/20 13:00 35 97/55 Mechanical Ventilator 100 07/10/20 12:30 94 34 98/52 (67) 88 07/10/20 12:00 Mechanical Ventilator Mechanical Ventilator Mechanical Ventilator Mechanical Ventilator Mechanical Ventilator 07/10/20 12:00 91 07/10/20 12:00 33 101/59 100 07/10/20 12:00 98.0 93 32 94/48 (63) 87 07/10/20 12:00 100 07/10/20 11:28 94 32 100 07/10/20 11:00 32 92/48 100 07/10/20 11:00 32 Mechanical Ventilator 100 07/10/20 11:00 91 32 95/50 (65) 87 07/10/20 10:30 89 30 89/49 (62) 90 07/10/20 10:00 30 132/62 Mechanical Ventilator 100 07/10/20 10:00 30 Mechanical Ventilator 100 07/10/20 10:00 90 30 132/62 (85) 92 07/10/20 09:45 87 28 141/65 (90) 92 07/10/20 09:30 90 33 152/77 (102) 88 07/10/20 09:00 33 149/76 Mechanical Ventilator 100 07/10/20 09:00 33 Mechanical Ventilator 100 07/10/20 09:00 88 33 149/76 (100) 90 07/10/20 08:35 102/49 07/10/20 08:30 91 33 140/63 (88) 89 07/10/20 08:00 Mechanical Ventilator Mechanical Ventilator Mechanical Ventilator Mechanical Ventilator Mechanical Ventilator 07/10/20 08:00 100 07/10/20 08:00 96 07/10/20 08:00 32 101/46 Mechanical Ventilator 100 07/10/20 08:00 32 Mechanical Ventilator 100 07/10/20 08:00 98.0 95 32 101/46 (64) 88 07/10/20 07:10 86 35 100 07/10/20 07:00 91 32 123/49 (73) 85 07/10/20 07:00 32 123/49 100 07/10/20 07:00 32 Mechanical Ventilator 100 Intake and Output 07/11/20 07/12/20 19:00 07:00 Intake Total 1580.95 ml 1288.64 ml Output Total 315 ml 110 ml Balance 1265.95 ml 1178.64 ml Intake Free Water 100 ml IV Total 820.95 ml 683.64 ml Tube Feeding 660 ml 605 ml Output Urine Total 220 ml 110 ml Chest Tube Drainage Total 95 ml # Bowel Movements 1 Labs Test 07/11/20 05:50 White Blood Count 7.2 K/UL (4.8-10.8) Red Blood Count 3.02 M/UL (4.20-5.40) Hemoglobin 9.0 G/DL (12.0-16.0) Hematocrit 29.9 % (37.0-47.0) Mean Corpuscular Volume 99 FL (80-99) Mean Corpuscular Hemoglobin 30.0 PG (27.0-31.0) Mean Corpuscular Hemoglobin Concent 30.3 G/DL (32.0-36.0) Red Cell Distribution Width 17.2 % (11.6-14.8) Platelet Count 230 K/UL (150-450) Mean Platelet Volume 9.3 FL (6.5-10.1) Neutrophils (%) (Auto) 79.3 % (45.0-75.0) Lymphocytes (%) (Auto) 10.8 % (20.0-45.0) Monocytes (%) (Auto) 5.0 % (1.0-10.0) Eosinophils (%) (Auto) 4.1 % (0.0-3.0) Basophils (%) (Auto) 0.9 % (0.0-2.0) Sodium Level 143 MMOL/L (136-145) Potassium Level 4.0 MMOL/L (3.5-5.1) Chloride Level 104 MMOL/L (98-107) Carbon Dioxide Level 37 MMOL/L (21-32) Anion Gap 2 mmol/L (5-15) Blood Urea Nitrogen 14 mg/dL (7-18) Creatinine 0.4 MG/DL (0.55-1.30) Estimat Glomerular Filtration Rate > 60 mL/min (>60) Glucose Level 103 MG/DL (74-106) Uric Acid 1.8 MG/DL (2.6-7.2) Calcium Level 7.8 MG/DL (8.5-10.1) Phosphorus Level 3.1 MG/DL (2.5-4.9) Magnesium Level 2.4 MG/DL (1.8-2.4) Total Bilirubin 0.4 MG/DL (0.2-1.0) Aspartate Amino Transf (AST/SGOT) 50 U/L (15-37) Alanine Aminotransferase (ALT/SGPT) 40 U/L (12-78) Alkaline Phosphatase 167 U/L (46-116) C-Reactive Protein, Quantitative 12.8 mg/dL (0.00-0.90) Pro-B-Type Natriuretic Peptide 2265 pg/mL (0-125) Total Protein 6.1 G/DL (6.4-8.2) Albumin 1.0 G/DL (3.4-5.0) Globulin 5.1 g/dL Albumin/Globulin Ratio 0.2 (1.0-2.7) Height (Feet): 5 Height (Inches): 2.00 Weight (Pounds): 138 Objective Physical Exam Vitals: reviewed, abnormal - Interpreted as low by me General: GCS 15 - Sometimes slightly confused, non-toxic, mild distress Head: normocephalic, moist mucus membranes Neck: supple Respiratory: ++bilateral chest tubes Cardiovascular: regular rate, rhythm, no edema Gastrointestinal: normal inspection, non tender, soft Genitourinary: no CVA tenderness Musculoskeletal: back normal Neurologic: alert, oriented x3, grossly normal Psychiatric: mood/affect normal - sometimes confused Skin: no rash, warm/dry Jj Swann MD Jul 12, 2020 06:47
--- NOTE | 2020-07-12 07:17 | NUR ---
NURSE HAND-OFF REPORT: Latest Vital Signs: Temperature 98.7 , Pulse 106 , B/P 135 /74 , Respiratory Rate 20 , O2 SAT 82 , Mechanical Ventilator, O2 Flow Rate . Vital Sign Comment: [monitor O2 sat] EKG Rhythm: Sinus Tachycardia Rhythm change?: N MD Notified?: Chante -Dr. Sewell see nurses note MD Response: No New Orders Received Latest Carney Fall Score: 50 Fall Risk: High Risk Safety Measures: Call light Within Reach, Bed Alarm Zone 2, Side Rails Side Rails x3, Bed position Low and Locked. Fall Precautions: Yellow Socks Door Sign Patient Fall Education Report given to [chris Colvin RN].
[2020-07-12 08:07] LABS: BASOPHILS % (AUTO) 1.2 % (0.0-2.0); EOSINOPHILS % (AUTO) 3.3 % (0.0-3.0); HEMATOCRIT 30.9 % (37.0-47.0); HEMOGLOBIN 9.3 G/DL (12.0-16.0); LYMPHOCYTES % (AUTO) 14.5 % (20.0-45.0); MEAN CORPUSCULAR VOLUME 99 FL (80-99); MONOCYTES % (AUTO) 7.3 % (1.0-10.0); NEUTROPHILS % (AUTO) 73.7 % (45.0-75.0); PLATELET COUNT 283 K/UL (150-450); RED BLOOD COUNT 3.11 M/UL (4.20-5.40); RED CELL DISTRIBUTION WIDTH 17.6 % (11.6-14.8); WHITE BLOOD COUNT 7.1 K/UL (4.8-10.8)
--- NOTE | 2020-07-12 08:19 | Pulmonology Progress Note ---
Subjective ROS Limited/Unobtainable: Yes Interval Events: Remains intubated; bilateral chest tubes in place Constitutional: Denies: fever HEENT: Repors: no symptoms Respiratory: Reports: shortness of breath Cardiovascular: Reports: no symptoms Gastrointestinal/Abdominal: Reports: no symptoms Allergies: Coded Allergies: No Known Allergies (Unverified , 06/17/20) All Systems: reviewed and negative except above Objective Last 24 Hour Vital Signs Date Time Temp Pulse Resp B/P (MAP) Pulse Ox O2 Delivery O2 Flow Rate FiO2 07/12/20 08:00 100 07/12/20 08:00 Mechanical Ventilator Mechanical Ventilator Mechanical Ventilator Mechanical Ventilator Mechanical Ventilator 07/12/20 08:00 99.0 111 34 97/55 (69) 82 07/12/20 07:24 109 32 100 07/12/20 07:00 106 31 107/67 (80) 82 07/12/20 07:00 20 135/74 Mechanical Ventilator 100 07/12/20 07:00 20 135/74 Mechanical Ventilator 100 07/12/20 06:00 19 113/79 Mechanical Ventilator 100 07/12/20 06:00 20 113/79 Mechanical Ventilator 100 07/12/20 06:00 107 31 135/81 (99) 80 07/12/20 05:00 111 32 91/63 (72) 87 07/12/20 05:00 19 105/73 Mechanical Ventilator 100 07/12/20 05:00 19 105/73 Mechanical Ventilator 100 07/12/20 04:00 98.7 114 33 103/67 (79) 78 07/12/20 04:00 114 07/12/20 04:00 19 125/73 Mechanical Ventilator 100 07/12/20 04:00 20 125/73 Mechanical Ventilator 100 07/12/20 04:00 Mechanical Ventilator Mechanical Ventilator Mechanical Ventilator Mechanical Ventilator Mechanical Ventilator 07/12/20 04:00 100 07/12/20 03:00 19 129/80 Mechanical Ventilator 100 07/12/20 03:00 19 129/80 Mechanical Ventilator 100 07/12/20 03:00 114 32 105/68 (80) 74 07/12/20 02:00 20 134/86 Mechanical Ventilator 100 07/12/20 02:00 20 140/78 100 07/12/20 02:00 121 25 108/68 (81) 77 07/12/20 01:43 121 37 100 07/12/20 01:00 125 31 119/72 (88) 73 07/12/20 01:00 20 122/62 Mechanical Ventilator 100 07/12/20 01:00 20 142/95 Mechanical Ventilator 100 07/12/20 00:00 100 07/12/20 00:00 19 135/83 Mechanical Ventilator 100 07/12/20 00:00 19 112/82 Mechanical Ventilator 100 07/12/20 00:00 98.3 128 26 106/64 (78) 76 07/12/20 00:00 127 07/12/20 00:00 Mechanical Ventilator Mechanical Ventilator Mechanical Ventilator Mechanical Ventilator Mechanical Ventilator 07/11/20 23:15 19 130/77 Mechanical Ventilator 100 07/11/20 23:10 19 125/85 Mechanical Ventilator 100 07/11/20 23:02 128/73 07/11/20 23:00 126 32 130/77 (94) 73 07/11/20 23:00 20 125/85 Mechanical Ventilator 100 07/11/20 23:00 20 115/82 Mechanical Ventilator 100 07/11/20 22:00 128 27 123/69 (87) 67 07/11/20 22:00 19 131/75 Mechanical Ventilator 100 07/11/20 22:00 19 135/67 Mechanical Ventilator 100 07/11/20 21:00 131 27 117/69 (85) 82 07/11/20 21:00 18 142/82 Endotracheal Tube 100 07/11/20 21:00 19 147/84 Endotracheal Tube 100 07/11/20 21:00 19 133/79 Endotracheal Tube 100 07/11/20 20:00 Mechanical Ventilator Mechanical Ventilator Mechanical Ventilator Mechanical Ventilator Mechanical Ventilator 07/11/20 20:00 98.6 129 31 100/67 (78) 73 07/11/20 20:00 131 07/11/20 20:00 20 130/85 Endotracheal Tube 100 07/11/20 20:00 18 118/75 Endotracheal Tube 100 07/11/20 20:00 100 07/11/20 19:58 131 32 100 07/11/20 19:13 32 119/69 100 07/11/20 19:00 126 31 119/69 (86) 60 07/11/20 19:00 18 132/74 Endotracheal Tube 100 07/11/20 18:50 123 29 100 07/11/20 18:00 20 99/65 Endotracheal Tube 100 07/11/20 18:00 20 99/65 Endotracheal Tube 100 07/11/20 18:00 120 20 99/65 (76) 77 07/11/20 17:12 115 20 100 07/11/20 17:00 115 20 126/70 (88) 94 07/11/20 17:00 20 126/70 Endotracheal Tube 100 07/11/20 17:00 20 126/70 Endotracheal Tube 100 07/11/20 16:00 Mechanical Ventilator Mechanical Ventilator Mechanical Ventilator Mechanical Ventilator Mechanical Ventilator 07/11/20 16:00 98.2 117 23 99/63 (75) 65 07/11/20 16:00 100 07/11/20 16:00 23 99/63 Endotracheal Tube 100 07/11/20 16:00 23 99/63 Endotracheal Tube 100 07/11/20 16:00 115 07/11/20 15:00 35 126/70 Endotracheal Tube 100 07/11/20 15:00 35 126/70 Endotracheal Tube 100 07/11/20 15:00 127 35 126/70 (88) 52 07/11/20 14:38 128 37 100 07/11/20 14:00 117 35 153/81 (105) 71 07/11/20 14:00 35 153/81 Endotracheal Tube 100 07/11/20 14:00 35 153/81 Endotracheal Tube 100 07/11/20 13:00 113 29 93/62 (72) 79 07/11/20 13:00 29 93/62 Endotracheal Tube 100 07/11/20 13:00 29 93/62 Endotracheal Tube 100 07/11/20 12:00 Mechanical Ventilator Mechanical Ventilator Mechanical Ventilator Mechanical Ventilator Mechanical Ventilator 07/11/20 12:00 99.3 07/11/20 12:00 100 07/11/20 12:00 29 123/63 Endotracheal Tube 100 07/11/20 12:00 29 123/63 Endotracheal Tube 100 07/11/20 12:00 111 07/11/20 12:00 111 34 123/39 (67) 71 07/11/20 11:05 106 26 100 07/11/20 11:00 102 30 125/58 (80) 81 07/11/20 11:00 30 125/58 Endotracheal Tube 100 07/11/20 11:00 30 125/58 Endotracheal Tube 100 07/11/20 10:00 29 117/65 Endotracheal Tube 100 07/11/20 10:00 29 117/65 Endotracheal Tube 100 2/20/21 10:00 105 30 110/66 (81) 73 07/11/20 09:30 102 29 121/64 (83) 61 07/11/20 09:00 99 28 133/64 (87) 55 07/11/20 09:00 29 131/66 Endotracheal Tube 100 07/11/20 09:00 29 131/66 Endotracheal Tube 100 07/11/20 08:30 98 24 135/75 (95) 73 Intake and Output 07/11/20 07/12/20 19:00 07:00 Intake Total 1580.95 ml 1412.84 ml Output Total 315 ml 120 ml Balance 1265.95 ml 1292.84 ml Intake Free Water 100 ml IV Total 820.95 ml 752.84 ml Tube Feeding 660 ml 660 ml Output Urine Total 220 ml 120 ml Chest Tube Drainage Total 95 ml # Bowel Movements 1 General Appearance: no acute distress HEENT: atraumatic Respiratory: crackles/rales Cardiovascular: normal rate Abdomen: soft, non tender Laboratory Tests 07/12/20 06:40: White Blood Count 7.1, Red Blood Count 3.11L, Hemoglobin 9.3L, Hematocrit 30.9L, Mean Corpuscular Volume 99, Mean Corpuscular Hemoglobin 29.9, Mean Corpuscular Hemoglobin Concent 30.1L, Red Cell Distribution Width 17.6H, Platelet Count 283, Mean Platelet Volume 9.3, Neutrophils (%) (Auto) 73.7, Lymphocytes (%) (Auto) 14.5L, Monocytes (%) (Auto) 7.3, Eosinophils (%) (Auto) 3.3H, Basophils (%) ( Auto) 1.2 Current Medications Medications (Trade) Dose Ordered Sig/Maya Route PRN Reason Start Time Stop Time Status Last Admin Dose Admin Acetaminophen (Tylenol) 500 mg Q4H PRN ORAL Mild Pain (Pain Scale 1-3) 06/18/20 00:15 07/18/20 00:14 06/24/20 17:51 Acetaminophen (Tylenol) 500 mg Q4H PRN ORAL Temp >100.5 06/18/20 00:15 07/18/20 00:14 06/29/20 20:01 Chlorhexidine Gluconate (Sissy-Hex 2%) 1 applic DAILY@1999 TOPIC 06/28/20 20:00 09/26/20 19:59 07/11/20 20:36 Dextrose (Dextrose 50%) 25 ml Q30M PRN IV Hypoglycemia 06/18/20 14:15 09/16/20 14:14 Dextrose (Dextrose 50%) 50 ml Q30M PRN IV Hypoglycemia 06/18/20 14:15 09/16/20 14:14 Docusate Sodium (Colace) 100 mg EVERY 8 HOURS NG 07/02/20 14:00 07/28/20 12:59 07/12/20 05:14 Enoxaparin Sodium (Lovenox) 40 mg DAILY SUBQ 07/12/20 09:00 10/10/20 08:59 Famotidine (Pepcid I.v.) 20 mg BID IVP 07/10/20 09:00 08/09/20 08:59 07/11/20 18:16 Haloperidol Lactate (Haldol) 10 mg Q6H PRN IM Agitation 06/23/20 11:30 08/07/20 11:29 06/23/20 11:34 Insulin Aspart (NovoLOG) while NPO Q6HR SUBQ 06/18/20 18:00 09/16/20 17:59 07/11/20 23:09 Midazolam HCl 200 ml @ 0 mls/hr Q24H PRN IV SEDATION 07/11/20 00:00 07/18/20 00:00 07/11/20 23:15 Norepinephrine Bitartrate 250 ml @ 7.5 mls/hr Q24H IV 07/10/20 00:00 07/12/20 23:50 07/10/20 08:35 Sodium Chloride 1,000 ml @ 50 mls/hr Q20H IV 06/26/20 08:00 07/26/20 07:59 07/12/20 04:22 Vitamin D (Vitamin D) 2,000 unit DAILY GT 06/29/20 10:30 07/29/20 10:29 07/11/20 08:39 Assessment/Plan Assessment/Plan 1. COVID-19 pneumonia -Intubated, on 100% FiO2. PEEP 5-10. -SaO2 86% -On Decadron, s/p remdesivir 2. Leukocytosis -Resolved 3. Elevated D-dimer -On Lovenox 40 subcu QD for DVT prophylaxis 4. Renal insufficiency -Improved 5. Anemia of chronic disease -Hematology oncology following 6. Sepsis -Status post antibiotics, fluid resuscitation 7. Pneumothorax 06/22/20 - b/l subcutaneous emphysema, pneumomediastinum, probable small left pneumothorax & ? trace right pneumothorax. -Pleur-ev[place] in place - placed CT by surgery (bilateral) - Will attempt wean when FiO2 decreases - CXR shows R PTX; will advise CT surgery to adjust R CT Discussed with son Now DNAR SaO2 87% on 100% FiO2 and PEEP 12 Grave prognosis Family not ready for withdrawl of care Discussed with son (jim) in great detail Charlie Sewell MD Jul 12, 2020 08:18
[2020-07-12] MEDS: Vitamin D 1000 units Tab GT SCH (08:25)
[2020-07-12] MEDS: Enoxaparin 40mg Inj SUBQ SCH (08:28)
[2020-07-12] MEDS ORDERED: fentaNYL 2500mcg/NS 250ml 250 ML IV SCH (09:00)
[2020-07-12] MEDS: fentaNYL Citrate 1,000 MCG in NS 100 ML IV PRN (10:22)
[2020-07-12 10:32] LABS: ANION GAP 2 mmol/L (5-15); BLOOD UREA NITROGEN 19 mg/dL (7-18); CALCIUM 7.7 MG/DL (8.5-10.1); CARBON DIOXIDE 36 MMOL/L (21-32); CHLORIDE 104 MMOL/L (98-107); CREATININE 0.4 MG/DL (0.55-1.30); POTASSIUM 4.7 MMOL/L (3.5-5.1); SODIUM 142 MMOL/L (136-145)
[2020-07-12 10:43] LABS: ALANINE AMINOTRANSFERASE 107 U/L (12-78); ALBUMIN 1.1 G/DL (3.4-5.0); ALBUMIN/GLOBULIN RATIO 0.2 (1.0-2.7); ALKALINE PHOSPHATASE 184 U/L (46-116); ASPARTATE AMINO TRANSFERASE 146 U/L (15-37); BILIRUBIN,TOTAL 0.5 MG/DL (0.2-1.0)
--- NOTE | 2020-07-12 13:02 | Nephrology Progress Note ---
Assessment/Plan Problem List: (1) LEONARDO (acute kidney injury) (2) Dehydration (3) DMII (diabetes mellitus, type 2) (4) Pneumonia due to COVID-19 virus (5) Hypoxia Assessment 70-year-old female presents with COVID-19 pneumonia and hypoxia On admission has BUN of 77 and creatinine of 1.6. Renal failure most likely prerenal and dehydration with possible underlying chronic kidney disease Patient has elevated inflammatory markers Hypoalbuminemia Electrolyte abnormalities Hyperglycemia Plan July 12: Status unchanged. Remains and high FiO2 of 100% with bilateral chest tube. Labs reviewed. Renal parameters stable. Continue per consultants. Prognosis remains poor. July 11: Patient is doing poorly. Remains on FiO2 of 100%. Patient is DNR however intubated on ventilator with 2 chest tubes. Discussed with RN. Labs and medication list reviewed. Not much to add from renal standpoint of view. July 10: Status quo. FiO2 100%. Remains intubated. Will check lab tomorrow. Continue per consultants. July 09: Status quo. FiO2 100%. Intubated on ventilator with bilateral chest tube. Labs reviewed. Renal parameters stable however overall status and clinical condition remains poor. Patient DNR. July 08: DNR. Intubated on ventilator. FiO2 100%. Bilateral chest tube. Labs reviewed. Renal parameters stable. July 07: FiO2 100%. Renal parameters stable. Remains intubated with bilateral chest tube. Continue per pulmonary. July 06: Labs reviewed. Renal parameters stable. ABG suggests retaining of CO2. Patient continues to be on FiO2 100%. Has bilateral chest tubes. Remains intubated on ventilator. Continue to monitor renal parameters. July 05: No CHEM panel drawn today. Status quo. Pulmonary status unchanged. We will continue to monitor renal parameters and electrolytes. Cont inue per consultants. July 04: Status quo. On ventilator. Full code. Bilateral chest tube. Renal parameters stable. July 03: Patient remains full code. Intubated on ventilator. Has chest tube. Labs reviewed. Renal parameters stable. Continue per consultants. July 02: Remains intubated. Has a bilateral chest tube. He is full code. Labs reviewed. Abnormal electrolyte addressed. Continue per consultants. July 01: Remains intubated. Continues to have bilateral chest tube. Full code. Labs reviewed. Renal parameters stable. Low phosphorus addressed. Discussed with NORMAN Lyon. February 9: Full code. Intubated. Bilateral chest tube. As reviewed. Abnormal electrolytes addressed. June 29: Full code. Intubated. Bilateral chest tube. Unstable pulmonary status. ABG ordered. Electrolyte imbalance addressed. Discussed with NORMAN Montalvo. June 28: Labs reviewed. Abnormal electrolytes addressed. Patient remains full code. Continue per consultants. June 27: No chemistry panel done today. Remains full code. Medication list reviewed. Continue per consultants. Will monitor electrolytes and renal panel in a.m. June 26: Status quo. Remains full code. Labs reviewed. Main IV changed to normal saline 50 cc an hour. Continue per consultants and pulmonary. June 25: Remains intubated. Has bilateral chest tube. Full code. Labs reviewed. Abnormal electrolytes addressed. Albumin bolus given. Continue to monitor renal parameters. Poor prognosis. June 24: Patient in ICU. Intubated. Has bilateral chest tube. Labs reviewed. Renal parameters stable. Low phosphorus addressed. Continue per con sultants. Full code. Poor prognosis. June 23: Patient in ICU. Intubated. Due for insertion of a chest tube. Has pneumothorax. Renal parameters are stable. Serum sodium rising. Will adjust IV fluid. Continue per consultants. Patient full code. Prognosis poor. June 22: Labs reviewed. Remains on BiPAP which is not changed to high flow oxygen due to pneumothorax found on chest x-ray. Serum sodium 155. Continues on D5W. Electrolytes within normal limits. Check 2D echocardiogram. Coreg for blood pressure and heart rate. June 21: Status quo. On BiPAP. Full code. Serum sodium 153. Continue D5W. Continue to monitor electrolytes. Continue per consultants. June 20: Patient full code. On BiPAP. Labs reviewed. Serum sodium rising. Will increase D5W to 75 cc an hour. Continue to monitor electrolytes. June 19: IV changed to D5W. Monitor blood sugar. Monitor electrolytes. Medication list reviewed. Patient is being treated for COVID-19 pneumonia. Patient is full code. Previously Pulmonary support IV antibiotics Slow hydration Avoid nephrotoxic Monitor renal parameters Per orders Subjective ROS Limited/Unobtainable: Yes Objective Objective Last 24 Hour Vital Signs Date Time Temp Pulse Resp B/P (MAP) Pulse Ox O2 Delivery O2 Flow Rate FiO2 07/12/20 12:00 100 07/12/20 12:00 Mechanical Ventilator Mechanical Ventilator Mechanical Ventilator Mechanical Ventilator Mechanical Ventilator 07/12/20 12:00 98.1 107 34 106/68 (81) 82 07/12/20 11:00 107 21 134/78 (96) 90 07/12/20 11:00 21 134/78 Endotracheal Tube 100 07/12/20 11:00 34 126/75 Endotracheal Tube 100 07/12/20 10:56 111 36 100 07/12/20 10:22 34 113/73 Endotracheal Tube 100 07/12/20 10:00 34 126/75 Endotracheal Tube 100 07/12/20 10:00 34 126/75 Endotracheal Tube 100 07/12/20 10:00 112 34 126/75 (92) 84 07/12/20 09:00 111 35 123/70 (87) 82 07/12/20 09:00 35 123/70 Endotracheal Tube 100 07/12/20 09:00 35 123/70 Endotracheal Tube 100 07/12/20 08:00 113 07/12/20 08:00 100 07/12/20 08:00 34 97/55 Endotracheal Tube 100 07/12/20 08:00 34 97/55 Endotracheal Tube 100 07/12/20 08:00 Mechanical Ventilator Mechanical Ventilator Mechanical Ventilator Mechanical Ventilator Mechanical Ventilator 07/12/20 08:00 99.0 111 34 97/55 (69) 82 07/12/20 07:24 109 32 100 07/12/20 07:00 106 31 107/67 (80) 82 07/12/20 07:00 20 135/74 Mechanical Ventilator 100 07/12/20 07:00 20 135/74 Mechanical Ventilator 100 07/12/20 06:00 19 113/79 Mechanical Ventilator 100 07/12/20 06:00 20 113/79 Mechanical Ventilator 100 07/12/20 06:00 107 31 135/81 (99) 80 07/12/20 05:00 111 32 91/63 (72) 87 07/12/20 05:00 19 105/73 Mechanical Ventilator 100 07/12/20 05:00 19 105/73 Mechanical Ventilator 100 07/12/20 04:00 98.7 114 33 103/67 (79) 78 07/12/20 04:00 114 07/12/20 04:00 19 125/73 Mechanical Ventilator 100 07/12/20 04:00 20 125/73 Mechanical Ventilator 100 07/12/20 04:00 Mechanical Ventilator Mechanical Ventilator Mechanical Ventilator Mechanical Ventilator Mechanical Ventilator 07/12/20 04:00 100 07/12/20 03:00 19 129/80 Mechanical Ventilator 100 07/12/20 03:00 19 129/80 Mechanical Ventilator 100 07/12/20 03:00 114 32 105/68 (80) 74 07/12/20 02:00 20 134/86 Mechanical Ventilator 100 07/12/20 02:00 20 140/78 100 07/12/20 02:00 121 25 108/68 (81) 77 07/12/20 01:43 121 37 100 07/12/20 01:00 125 31 119/72 (88) 73 07/12/20 01:00 20 122/62 Mechanical Ventilator 100 07/12/20 01:00 20 142/95 Mechanical Ventilator 100 07/12/20 00:00 100 07/12/20 00:00 19 135/83 Mechanical Ventilator 100 07/12/20 00:00 19 112/82 Mechanical Ventilator 100 07/12/20 00:00 98.3 128 26 106/64 (78) 76 07/12/20 00:00 127 07/12/20 00:00 Mechanical Ventilator Mechanical Ventilator Mechanical Ventilator Mechanical Ventilator Mechanical Ventilator 07/11/20 23:15 19 130/77 Mechanical Ventilator 100 07/11/20 23:10 19 125/85 Mechanical Ventilator 100 07/11/20 23:02 128/73 07/11/20 23:00 126 32 130/77 (94) 73 07/11/20 23:00 20 125/85 Mechanical Ventilator 100 07/11/20 23:00 20 115/82 Mechanical Ventilator 100 07/11/20 22:00 128 27 123/69 (87) 67 07/11/20 22:00 19 131/75 Mechanical Ventilator 100 07/11/20 22:00 19 135/67 Mechanical Ventilator 100 07/11/20 21:00 131 27 117/69 (85) 82 07/11/20 21:00 18 142/82 Endotracheal Tube 100 07/11/20 21:00 19 147/84 Endotracheal Tube 100 07/11/20 21:00 19 133/79 Endotracheal Tube 100 07/11/20 20:00 Mechanical Ventilator Mechanical Ventilator Mechanical Ventilator Mechanical Ventilator Mechanical Ventilator 07/11/20 20:00 98.6 129 31 100/67 (78) 73 07/11/20 20:00 131 07/11/20 20:00 20 130/85 Endotracheal Tube 100 07/11/20 20:00 18 118/75 Endotracheal Tube 100 07/11/20 20:00 100 07/11/20 19:58 131 32 100 07/11/20 19:13 32 119/69 100 07/11/20 19:00 126 31 119/69 (86) 60 07/11/20 19:00 18 132/74 Endotracheal Tube 100 07/11/20 18:50 123 29 100 07/11/20 18:00 20 99/65 Endotracheal Tube 100 07/11/20 18:00 20 99/65 Endotracheal Tube 100 07/11/20 18:00 120 20 99/65 (76) 77 07/11/20 17:12 115 20 100 07/11/20 17:00 115 20 126/70 (88) 94 07/11/20 17:00 20 126/70 Endotracheal Tube 100 07/11/20 17:00 20 126/70 Endotracheal Tube 100 07/11/20 16:00 Mechanical Ventilator Mechanical Ventilator Mechanical Ventilator Mechanical Ventilator Mechanical Ventilator 07/11/20 16:00 98.2 117 23 99/63 (75) 65 07/11/20 16:00 100 07/11/20 16:00 23 99/63 Endotracheal Tube 100 07/11/20 16:00 23 99/63 Endotracheal Tube 100 07/11/20 16:00 115 07/11/20 15:00 35 126/70 Endotracheal Tube 100 07/11/20 15:00 35 126/70 Endotracheal Tube 100 07/11/20 15:00 127 35 126/70 (88) 52 07/11/20 14:38 128 37 100 07/11/20 14:00 117 35 153/81 (105) 71 07/11/20 14:00 35 153/81 Endotracheal Tube 100 07/11/20 14:00 35 153/81 Endotracheal Tube 100 Intake and Output 07/11/20 07/12/20 19:00 07:00 Intake Total 1580.95 ml 1412.84 ml Output Total 315 ml 120 ml Balance 1265.95 ml 1292.84 ml Intake Free Water 100 ml IV Total 820.95 ml 752.84 ml Tube Feeding 660 ml 660 ml Output Urine Total 220 ml 120 ml Chest Tube Drainage Total 95 ml # Bowel Movements 1 Current Medications Medications (Trade) Dose Ordered Sig/Maya Route PRN Reason Start Time Stop Time Status Last Admin Dose Admin Acetaminophen (Tylenol) 500 mg Q4H PRN ORAL Mild Pain (Pain Scale 1-3) 06/18/20 00:15 07/18/20 00:14 06/24/20 17:51 Acetaminophen (Tylenol) 500 mg Q4H PRN ORAL Temp >100.5 06/18/20 00:15 07/18/20 00:14 06/29/20 20:01 Chlorhexidine Gluconate (Sissy-Hex 2%) 1 applic DAILY@2000 TOPIC 06/28/20 20:00 09/26/20 19:59 07/11/20 20:36 Dextrose (Dextrose 50%) 25 ml Q30M PRN IV Hypoglycemia 06/18/20 14:15 09/16/20 14:14 Dextrose (Dextrose 50%) 50 ml Q30M PRN IV Hypoglycemia 06/18/20 14:15 09/16/20 14:14 Docusate Sodium (Colace) 100 mg EVERY 8 HOURS NG 07/02/20 14:00 07/28/20 12:59 07/12/20 05:14 Enoxaparin Sodium (Lovenox) 40 mg DAILY SUBQ 07/12/20 09:00 10/10/20 08:59 07/12/20 08:28 Famotidine (Pepcid I.v.) 20 mg BID IVP 07/10/20 09:00 08/09/20 08:59 07/12/20 08:25 Fentanyl Citrate 1000 mcg/Sodium Chloride 120 ml @ 0 mls/hr Q24H PRN IV SEDATION 07/12/20 09:30 07/19/20 09:29 07/12/20 10:22 Haloperidol Lactate (Haldol) 10 mg Q6H PRN IM Agitation 06/23/20 11:30 08/07/20 11:29 06/23/20 11:34 Insulin Aspart (NovoLOG) while NPO Q6HR SUBQ 06/18/20 18:00 09/16/20 17:59 07/12/20 12:20 Midazolam HCl 200 ml @ 0 mls/hr Q24H PRN IV SEDATION 07/11/20 00:00 07/18/20 00:00 07/11/20 23:15 Norepinephrine Bitartrate 250 ml @ 7.5 mls/hr Q24H IV 07/10/20 00:00 07/12/20 23:50 07/10/20 08:35 Sodium Chloride 1,000 ml @ 50 mls/hr Q20H IV 06/26/20 08:00 07/26/20 07:59 07/12/20 04:22 Vitamin D (Vitamin D) 2,000 unit DAILY GT 06/29/20 10:30 07/29/20 10:29 07/12/20 08:25 Laboratory Tests 07/12/20 06:40: White Blood Count 7.1, Red Blood Count 3.11L, Hemoglobin 9.3L, Hematocrit 30.9L, Mean Corpuscular Volume 99, Mean Corpuscular Hemoglobin 29.9, Mean Corpuscular Hemoglobin Concent 30.1L, Red Cell Distribution Width 17.6H, Platelet Count 283, Mean Platelet Volume 9.3, Neutrophils (%) (Auto) 73.7, Lymphocytes (%) (Auto) 14.5L, Monocytes (%) (Auto) 7.3, Eosinophils (%) (Auto) 3.3H, Basophils (%) (Auto) 1.2 07/12/20 07:00: Sodium Level 142, Potassium Level 4.7, Chloride Level 104, Carbon Dioxide Level 36H, Anion Gap 2L, Blood Urea Nitrogen 19H, Creatinine 0.4L, Estimat Glomerular Filtration Rate > 60, Glucose Level 105, Calcium Level 7.7L, Total Bilirubin 0.5, Aspartate Amino Transf (AST/SGOT) 146H, Alanine Aminotransferase (ALT/SGPT) 107H, Alkaline Phosphatase 184H, Total Protein 6.3L, Albumin 1.1L, Globulin 5.2, Albumin/Globulin Ratio 0.2L Height (Feet): 5 Height (Inches): 2.00 Weight (Pounds): 138 General Appearance: no apparent distress EENT: other - Intubated on ventilator Cardiovascular: tachycardia Respiratory/Chest: decreased breath sounds, other - Bilateral chest tube Raza De Jesus MD Jul 12, 2020 13:02
--- NOTE | 2020-07-12 13:11 | Surgery Progress Note ---
Surgery Progress Note Subjective Procedure Performed 1. right chest tube insertion 2. left chest tube insertion Additional Comments ill appearing on support no n/v Objective Last 24 Hour Vital Signs Date Time Temp Pulse Resp B/P (MAP) Pulse Ox O2 Delivery O2 Flow Rate FiO2 07/12/20 12:00 100 07/12/20 12:00 Mechanical Ventilator Mechanical Ventilator Mechanical Ventilator Mechanical Ventilator Mechanical Ventilator 07/12/20 12:00 98.1 107 34 106/68 (81) 82 07/12/20 11:00 107 21 134/78 (96) 90 07/12/20 11:00 21 134/78 Endotracheal Tube 100 07/12/20 11:00 34 126/75 Endotracheal Tube 100 07/12/20 10:56 111 36 100 07/12/20 10:22 34 113/73 Endotracheal Tube 100 07/12/20 10:00 34 126/75 Endotracheal Tube 100 07/12/20 10:00 34 126/75 Endotracheal Tube 100 07/12/20 10:00 112 34 126/75 (92) 84 07/12/20 09:00 111 35 123/70 (87) 82 07/12/20 09:00 35 123/70 Endotracheal Tube 100 07/12/20 09:00 35 123/70 Endotracheal Tube 100 07/12/20 08:00 113 07/12/20 08:00 100 07/12/20 08:00 34 97/55 Endotracheal Tube 100 07/12/20 08:00 34 97/55 Endotracheal Tube 100 07/12/20 08:00 Mechanical Ventilator Mechanical Ventilator Mechanical Ventilator Mechanical Ventilator Mechanical Ventilator 07/12/20 08:00 99.0 111 34 97/55 (69) 82 07/12/20 07:24 109 32 100 07/12/20 07:00 106 31 107/67 (80) 82 07/12/20 07:00 20 135/74 Mechanical Ventilator 100 07/12/20 07:00 20 135/74 Mechanical Ventilator 100 07/12/20 06:00 19 113/79 Mechanical Ventilator 100 07/12/20 06:00 20 113/79 Mechanical Ventilator 100 07/12/20 06:00 107 31 135/81 (99) 80 07/12/20 05:00 111 32 91/63 (72) 87 07/12/20 05:00 19 105/73 Mechanical Ventilator 100 07/12/20 05:00 19 105/73 Mechanical Ventilator 100 07/12/20 04:00 98.7 114 33 103/67 (79) 78 07/12/20 04:00 114 07/12/20 04:00 19 125/73 Mechanical Ventilator 100 07/12/20 04:00 20 125/73 Mechanical Ventilator 100 07/12/20 04:00 Mechanical Ventilator Mechanical Ventilator Mechanical Ventilator Mechanical Ventilator Mechanical Ventilator 07/12/20 04:00 100 07/12/20 03:00 19 129/80 Mechanical Ventilator 100 07/12/20 03:00 19 129/80 Mechanical Ventilator 100 07/12/20 03:00 114 32 105/68 (80) 74 07/12/20 02:00 20 134/86 Mechanical Ventilator 100 07/12/20 02:00 20 140/78 100 07/12/20 02:00 121 25 108/68 (81) 77 07/12/20 01:43 121 37 100 07/12/20 01:00 125 31 119/72 (88) 73 07/12/20 01:00 20 122/62 Mechanical Ventilator 100 07/12/20 01:00 20 142/95 Mechanical Ventilator 100 07/12/20 00:00 100 07/12/20 00:00 19 135/83 Mechanical Ventilator 100 07/12/20 00:00 19 112/82 Mechanical Ventilator 100 07/12/20 00:00 98.3 128 26 106/64 (78) 76 07/12/20 00:00 127 07/12/20 00:00 Mechanical Ventilator Mechanical Ventilator Mechanical Ventilator Mechanical Ventilator Mechanical Ventilator 07/11/20 23:15 19 130/77 Mechanical Ventilator 100 07/11/20 23:10 19 125/85 Mechanical Ventilator 100 07/11/20 23:02 128/73 07/11/20 23:00 126 32 130/77 (94) 73 07/11/20 23:00 20 125/85 Mechanical Ventilator 100 07/11/20 23:00 20 115/82 Mechanical Ventilator 100 07/11/20 22:00 128 27 123/69 (87) 67 07/11/20 22:00 19 131/75 Mechanical Ventilator 100 07/11/20 22:00 19 135/67 Mechanical Ventilator 100 07/11/20 21:00 131 27 117/69 (85) 82 07/11/20 21:00 18 142/82 Endotracheal Tube 100 07/11/20 21:00 19 147/84 Endotracheal Tube 100 07/11/20 21:00 19 133/79 Endotracheal Tube 100 07/11/20 20:00 Mechanical Ventilator Mechanical Ventilator Mechanical Ventilator Mechanical Ventilator Mechanical Ventilator 07/11/20 20:00 98.6 129 31 100/67 (78) 73 07/11/20 20:00 131 07/11/20 20:00 20 130/85 Endotracheal Tube 100 07/11/20 20:00 18 118/75 Endotracheal Tube 100 07/11/20 20:00 100 07/11/20 19:58 131 32 100 07/11/20 19:13 32 119/69 100 07/11/20 19:00 126 31 119/69 (86) 60 07/11/20 19:00 18 132/74 Endotracheal Tube 100 07/11/20 18:50 123 29 100 07/11/20 18:00 20 99/65 Endotracheal Tube 100 07/11/20 18:00 20 99/65 Endotracheal Tube 100 07/11/20 18:00 120 20 99/65 (76) 77 07/11/20 17:12 115 20 100 07/11/20 17:00 115 20 126/70 (88) 94 07/11/20 17:00 20 126/70 Endotracheal Tube 100 07/11/20 17:00 20 126/70 Endotracheal Tube 100 07/11/20 16:00 Mechanical Ventilator Mechanical Ventilator Mechanical Ventilator Mechanical Ventilator Mechanical Ventilator 07/11/20 16:00 98.2 117 23 99/63 (75) 65 07/11/20 16:00 100 07/11/20 16:00 23 99/63 Endotracheal Tube 100 07/11/20 16:00 23 99/63 Endotracheal Tube 100 07/11/20 16:00 115 07/11/20 15:00 35 126/70 Endotracheal Tube 100 07/11/20 15:00 35 126/70 Endotracheal Tube 100 07/11/20 15:00 127 35 126/70 (88) 52 07/11/20 14:38 128 37 100 07/11/20 14:00 117 35 153/81 (105) 71 07/11/20 14:00 35 153/81 Endotracheal Tube 100 07/11/20 14:00 35 153/81 Endotracheal Tube 100 I&O Intake and Output 07/11/20 07/12/20 19:00 07:00 Intake Total 1580.95 ml 1412.84 ml Output Total 315 ml 120 ml Balance 1265.95 ml 1292.84 ml Intake Free Water 100 ml IV Total 820.95 ml 752.84 ml Tube Feeding 660 ml 660 ml Output Urine Total 220 ml 120 ml Chest Tube Drainage Total 95 ml # Bowel Movements 1 Dressing: saturated Drains: other Cardiovascular: RSR Respiratory: decreased breath sounds Abdomen: non-tender, present bowel sounds, non-distended, decreased bowel sounds Extremities: no tenderness, no cyanosis Laboratory Tests Test 07/12/20 06:40 07/12/20 07:00 White Blood Count 7.1 K/UL (4.8-10.8) Red Blood Count 3.11 M/UL (4.20-5.40) L Hemoglobin 9.3 G/DL (12.0-16.0) L Hematocrit 30.9 % (37.0-47.0) L Mean Corpuscular Volume 99 FL (80-99) Mean Corpuscular Hemoglobin 29.9 PG (27.0-31.0) Mean Corpuscular Hemoglobin Concent 30.1 G/DL (32.0-36.0) L Red Cell Distribution Width 17.6 % (11.6-14.8) H Platelet Count 283 K/UL (150-450) Mean Platelet Volume 9.3 FL (6.5-10.1) Neutrophils (%) (Auto) 73.7 % (45.0-75.0) Lymphocytes (%) (Auto) 14.5 % (20.0-45.0) L Monocytes (%) (Auto) 7.3 % (1.0-10.0) Eosinophils (%) (Auto) 3.3 % (0.0-3.0) H Basophils (%) (Auto) 1.2 % (0.0-2.0) Sodium Level 142 MMOL/L (136-145) Potassium Level 4.7 MMOL/L (3.5-5.1) Chloride Level 104 MMOL/L (98-107) Carbon Dioxide Level 36 MMOL/L (21-32) H Anion Gap 2 mmol/L (5-15) L Blood Urea Nitrogen 19 mg/dL (7-18) H Creatinine 0.4 MG/DL (0.55-1.30) L Estimat Glomerular Filtration Rate > 60 mL/min (>60) Glucose Level 105 MG/DL (74-106) Calcium Level 7.7 MG/DL (8.5-10.1) L Total Bilirubin 0.5 MG/DL (0.2-1.0) Aspartate Amino Transf (AST/SGOT) 146 U/L (15-37) H Alanine Aminotransferase (ALT/SGPT) 107 U/L (12-78) H Alkaline Phosphatase 184 U/L (46-116) H Total Protein 6.3 G/DL (6.4-8.2) L Albumin 1.1 G/DL (3.4-5.0) L Globulin 5.2 g/dL Albumin/Globulin Ratio 0.2 (1.0-2.7) L Plan Problems: (1) Renal insufficiency (2) Elevated d-dimer (3) Dehydration (4) LEONARDO (acute kidney injury) (5) DMII (diabetes mellitus, type 2) (6) Hypoxia (7) Pneumonia due to COVID-19 virus (8) PNA (pneumonia) (9) Pneumothorax Assessment & Plan: Bilateral pneumothorax status post bilateral chest tubes. Still on significant vent support. leak performed. Continue weaning vent. Continue with chest tubes. Will monitor and manage chest tubes accordingly. Thank you for let me to participate in patient's care Continue bilateral chest tubes on suction the airleak is worse her peak pressures are high prognosis overall is guarded. Imaging reviewed Bilateral air leaks noted high pressures continue chest tube suction recurrent right ptx tube fixed imaging pleuravac fixed tubes functional Unfortunately patient continues to be very ill on vent support with bilateral chest tubes in place. She continues to reaccumulate pneumothorax as this type functional tubes. Occasionally tubes or Pleur-evac needs to be changed and immediately shows improvement but then again declines. Prognosis is very guarded. We will continue to follow thank you for let me participate in patient's care Elpidio Frazier Jul 12, 2020 13:11
[2020-07-12] MEDS: Versed 100mg/NS 200ml 200 ML IV PRN (17:28)
--- NOTE | 2020-07-12 19:16 | NUR ---
Pt was more awake today. Pt tolerated ventilator on spontaneous for 7 hours. Pt to be trailed again tomorrow for possible extubation. Report given to belem pablo. Addendum: 07/12/20 at 1922 by Chikis Schulte RN Pt remains in grave condition. Pt O2 between 80-90's. Pt remains on versed and fentanyl. Pt with TF infusing at 55. Report given to Geronimo. Addendum: 07/12/20 at 1923 by Chikis Schulte RN First part of note written incorrectly. Please disregard.
--- NOTE | 2020-07-12 19:20 | NUR ---
NURSE NOTES: Pt report received from Elmer Colvin RN. pt condition remains unchanged. pt is sedated neuro gilbert, no acute neuro abnormalities noted. 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 pt is oral intubated/ vented, sating 98% O2, no acute resp distress noted. pt bed is low, locked, armed, call light within reach, bed rails up times 3. will follow plan of care.
[2020-07-12] MEDS: Dyna-Hex 2% Top Sol 2oz TOPIC SCH (21:21)
--- NOTE | 2020-07-12 21:30 | NUR ---
NURSE NOTES: pts 9PM meds passed. no change in condition.
--- NOTE | 2020-07-12 21:34 | General Progress Note ---
Subjective ROS Limited/Unobtainable: Yes Allergies: Coded Allergies: No Known Allergies (Unverified , 06/17/20) Objective Last 24 Hour Vital Signs Date Time Temp Pulse Resp B/P (MAP) Pulse Ox O2 Delivery O2 Flow Rate FiO2 07/12/20 20:34 111 28 100 07/12/20 19:30 110 32 100 07/12/20 19:00 113 31 99/60 (73) 88 07/12/20 19:00 31 99/60 Endotracheal Tube 100 07/12/20 19:00 31 99/60 Endotracheal Tube 100 07/12/20 18:00 31 107/72 Endotracheal Tube 100 07/12/20 18:00 31 107/72 Endotracheal Tube 100 07/12/20 18:00 106 31 107/72 (84) 91 07/12/20 17:28 29 112/73 Endotracheal Tube 100 07/12/20 17:00 30 120/82 Endotracheal Tube 100 07/12/20 17:00 30 120/82 Endotracheal Tube 100 07/12/20 17:00 106 30 120/82 (95) 90 07/12/20 16:00 32 123/83 Endotracheal Tube 100 07/12/20 16:00 32 123/83 Endotracheal Tube 100 07/12/20 16:00 Mechanical Ventilator Mechanical Ventilator Mechanical Ventilator Mechanical Ventilator Mechanical Ventilator 07/12/20 16:00 100 07/12/20 16:00 99.0 105 32 123/83 (96) 90 07/12/20 16:00 105 07/12/20 15:09 109 33 100 07/12/20 15:00 111 34 122/75 (91) 87 07/12/20 15:00 34 122/75 Endotracheal Tube 100 07/12/20 15:00 34 122/75 Endotracheal Tube 100 07/12/20 14:00 36 84/60 100 07/12/20 14:00 36 84/60 Endotracheal Tube 100 07/12/20 14:00 112 36 84/60 (68) 84 07/12/20 13:00 107 34 98/60 (73) 82 07/12/20 13:00 35 98/60 100 07/12/20 13:00 34 98/60 Endotracheal Tube 100 07/12/20 12:00 100 07/12/20 12:00 Mechanical Ventilator Mechanical Ventilator Mechanical Ventilator Mechanical Ventilator Mechanical Ventilator 07/12/20 12:00 34 97/55 Endotracheal Tube 100 07/12/20 12:00 34 106/68 Endotracheal Tube 100 07/12/20 12:00 98.1 107 34 106/68 (81) 82 07/12/20 12:00 107 07/12/20 11:00 107 21 134/78 (96) 90 07/12/20 11:00 21 134/78 Endotracheal Tube 100 07/12/20 11:00 34 126/75 Endotracheal Tube 100 07/12/20 10:56 111 36 100 07/12/20 10:22 34 113/73 Endotracheal Tube 100 07/12/20 10:00 34 126/75 Endotracheal Tube 100 07/12/20 10:00 34 126/75 Endotracheal Tube 100 07/12/20 10:00 112 34 126/75 (92) 84 07/12/20 09:00 111 35 123/70 (87) 82 07/12/20 09:00 35 123/70 Endotracheal Tube 100 07/12/20 09:00 35 123/70 Endotracheal Tube 100 07/12/20 08:00 113 07/12/20 08:00 100 07/12/20 08:00 34 97/55 Endotracheal Tube 100 07/12/20 08:00 34 97/55 Endotracheal Tube 100 07/12/20 08:00 Mechanical Ventilator Mechanical Ventilator Mechanical Ventilator Mechanical Ventilator Mechanical Ventilator 07/12/20 08:00 99.0 111 34 97/55 (69) 82 07/12/20 07:24 109 32 100 07/12/20 07:00 106 31 107/67 (80) 82 07/12/20 07:00 20 135/74 Mechanical Ventilator 100 07/12/20 07:00 20 135/74 Mechanical Ventilator 100 07/12/20 06:00 19 113/79 Mechanical Ventilator 100 07/12/20 06:00 20 113/79 Mechanical Ventilator 100 07/12/20 06:00 107 31 135/81 (99) 80 07/12/20 05:00 111 32 91/63 (72) 87 07/12/20 05:00 19 105/73 Mechanical Ventilator 100 07/12/20 05:00 19 105/73 Mechanical Ventilator 100 07/12/20 04:00 98.7 114 33 103/67 (79) 78 07/12/20 04:00 114 07/12/20 04:00 19 125/73 Mechanical Ventilator 100 07/12/20 04:00 20 125/73 Mechanical Ventilator 100 07/12/20 04:00 Mechanical Ventilator Mechanical Ventilator Mechanical Ventilator Mechanical Ventilator Mechanical Ventilator 07/12/20 04:00 100 07/12/20 03:00 19 129/80 Mechanical Ventilator 100 07/12/20 03:00 19 129/80 Mechanical Ventilator 100 07/12/20 03:00 114 32 105/68 (80) 74 07/12/20 02:00 20 134/86 Mechanical Ventilator 100 07/12/20 02:00 20 140/78 100 07/12/20 02:00 121 25 108/68 (81) 77 07/12/20 01:43 121 37 100 07/12/20 01:00 125 31 119/72 (88) 73 07/12/20 01:00 20 122/62 Mechanical Ventilator 100 07/12/20 01:00 20 142/95 Mechanical Ventilator 100 07/12/20 00:00 100 07/12/20 00:00 19 135/83 Mechanical Ventilator 100 07/12/20 00:00 19 112/82 Mechanical Ventilator 100 07/12/20 00:00 98.3 128 26 106/64 (78) 76 07/12/20 00:00 127 07/12/20 00:00 Mechanical Ventilator Mechanical Ventilator Mechanical Ventilator Mechanical Ventilator Mechanical Ventilator 07/11/20 23:15 19 130/77 Mechanical Ventilator 100 07/11/20 23:10 19 125/85 Mechanical Ventilator 100 07/11/20 23:02 128/73 07/11/20 23:00 126 32 130/77 (94) 73 07/11/20 23:00 20 125/85 Mechanical Ventilator 100 07/11/20 23:00 20 115/82 Mechanical Ventilator 100 07/11/20 22:00 128 27 123/69 (87) 67 07/11/20 22:00 19 131/75 Mechanical Ventilator 100 07/11/20 22:00 19 135/67 Mechanical Ventilator 100 Intake and Output 07/11/20 07/12/20 19:00 07:00 Intake Total 1580.95 ml 1412.84 ml Output Total 315 ml 120 ml Balance 1265.95 ml 1292.84 ml Intake Free Water 100 ml IV Total 820.95 ml 752.84 ml Tube Feeding 660 ml 660 ml Output Urine Total 220 ml 120 ml Chest Tube Drainage Total 95 ml # Bowel Movements 1 Laboratory Tests 07/12/20 06:40: White Blood Count 7.1, Red Blood Count 3.11L, Hemoglobin 9.3L, Hematocrit 30.9L, Mean Corpuscular Volume 99, Mean Corpuscular Hemoglobin 29.9, Mean Corpuscular Hemoglobin Concent 30.1L, Red Cell Distribution Width 17.6H, Platelet Count 283, Mean Platelet Volume 9.3, Neutrophils (%) (Auto) 73.7, Lymphocytes (%) (Auto) 14.5L, Monocytes (%) (Auto) 7.3, Eosinophils (%) (Auto) 3.3H, Basophils (%) (Auto) 1.2 07/12/20 07:00: Sodium Level 142, Potassium Level 4.7, Chloride Level 104, Carbon Dioxide Level 36H, Anion Gap 2L, Blood Urea Nitrogen 19H, Creatinine 0.4L, Estimat Glomerular Filtration Rate > 60, Glucose Level 105, Calcium Level 7.7L, Total Bilirubin 0.5, Aspartate Amino Transf (AST/SGOT) 146H, Alanine Aminotransferase (ALT/SGPT) 107H, Alkaline Phosphatase 184H, Total Protein 6.3L, Albumin 1.1L, Globulin 5.2, Albumin/Globulin Ratio 0.2L Height (Feet): 5 Height (Inches): 2.00 Weight (Pounds): 138 Assessment/Plan Problem List: (1) Elevated d-dimer ICD Codes: R79.89 - Other specified abnormal findings of blood chemistry SNOMED: 684205777 (2) Renal insufficiency ICD Codes: N28.9 - Disorder of kidney and ureter, unspecified SNOMED: 702814684, 246906459 (3) PNA (pneumonia) ICD Codes: J18.9 - Pneumonia, unspecified organism SNOMED: 881244496 (4) Dehydration ICD Codes: E86.0 - Dehydration SNOMED: 70223976 (5) LEONARDO (acute kidney injury) ICD Codes: N17.9 - Acute kidney failure, unspecified SNOMED: 6294317, 00595981 (6) Hypoxia ICD Codes: R09.02 - Hypoxemia; J12.82 - Pneumonia due to coronavirus disease 2019 SNOMED: 546634669 (7) Pneumonia due to COVID-19 virus ICD Codes: U07.1 - COVID-19; J12.82 - Pneumonia due to coronavirus disease 2019 SNOMED: 851243791703208745 (8) DMII (diabetes mellitus, type 2) ICD Codes: E11.9 - Type 2 diabetes mellitus without complications SNOMED: 54320726 Status: progressing, unchanged Assessment/Plan: covid + no improving lethargic on full supprt septic shoc intubated very poor prognosis bilat chest tube recurrent Vidya Clayton MD Jul 12, 2020 21:34
--- NOTE | 2020-07-12 23:20 | NUR ---
NURSE NOTES: pt turned, and repositioned. vital signs stable.
[2020-07-13] VITALS (53 sets, daily range): BP systolic 77–137; BP diastolic 49–86
--- NOTE | 2020-07-13 01:25 | NUR ---
NURSE NOTES: IV drips running as per doctor order/ protocol. pt remains sedated. no change in condition.
--- NOTE | 2020-07-13 03:33 | NUR ---
NURSE NOTES: pt cleaned with home care chaplain. pt repositioned.
[2020-07-13] MEDS: fentaNYL Citrate 1,000 MCG in NS 100 ML IV PRN ×2 (04:36→23:25)
--- NOTE | 2020-07-13 05:20 | NUR ---
NURSE NOTES: pt remains sedated. pts tube feeding replaced. no change in condition.
[2020-07-13] MEDS: Docusate 100mg/10ml Liq NG SCH ×3 (05:26→20:42)
[2020-07-13] MEDS: NovoLOG Insulin Flexpen SUBQ SCH ×5 (05:30→23:46)
[2020-07-13 06:30] LABS: BASOPHILS % (AUTO) 0.9 % (0.0-2.0); EOSINOPHILS % (AUTO) 1.7 % (0.0-3.0); HEMATOCRIT 31.3 % (37.0-47.0); HEMOGLOBIN 9.5 G/DL (12.0-16.0); LYMPHOCYTES % (AUTO) 13.4 % (20.0-45.0); MEAN CORPUSCULAR VOLUME 100 FL (80-99); MONOCYTES % (AUTO) 4.1 % (1.0-10.0); NEUTROPHILS % (AUTO) 79.9 % (45.0-75.0); PLATELET COUNT 330 K/UL (150-450); RED BLOOD COUNT 3.14 M/UL (4.20-5.40); RED CELL DISTRIBUTION WIDTH 18.3 % (11.6-14.8); WHITE BLOOD COUNT 7.6 K/UL (4.8-10.8)
--- NOTE | 2020-07-13 06:40 | Hematology/Onc Progress Note ---
Assessment/Plan Assessment/Plan Assessment and recs # Leukocytosis with Pneumonia due to COVID-19 virus -> wbc trend 15-->11-->10->17-->18->11->21->9 --> ABX as per id ctx-->off-->cefepime --> imaging does show pna --> anticoag recommended --> on remdesivir # Anemia of chronic disease --> hgb 12->10-->9-->11-->10.8->10-->9.6-->8.8 -> transfuse prn --> r/o hemolysis # Thrombocytopenia due to likely plt destruction, Covid19++ with Hypoxia -> steriods, abx per id --> plt 117-->121-->124->77-->90-->132-->174 --> smear is noted # Elevated ddimer due to covid --> duplex legs -> LOVENOX sq # Renal insufficiency -> per renal care # Sepsis due to above --> abx, fluid resuscitation # Dvt ppx lovenox sq Appreciate consultation and mehran RN Subjective Allergies: Coded Allergies: No Known Allergies (Unverified , 06/17/20) All Systems: reviewed and negative except above Subjective 06/19 sleeping, comfortable, on bipap, meds have been reviewed 06/21 on bipap, labs have been reviewed, no major events 06/22 bipap labs reviewed, meds noted, no bleeding 06/23 bipap labs noted, no bleeding, meds reviewed, mehran rn 06/24 on vent, labs reviewed, meds reviewed 06/25 on vent, with ctx as abx, labs noted, no bleeding 06/26 vent, with ogt, with helms, labs noted, no bleeding plts lower 06/28 labs are pending, on vent, helms intract, no new changes 06/29 icu, on vent, hgb 11, plt 124, meds noted, on ctx 06/30 icu, edematous, is on vent, labs reviewed, abx 07/01 icu, on vent, labs noted, no bleeding, plt 77, labs ordered 07/02 icu, nv, meds noted, no bleeding, plt 91, hgb 9 07/03 icu, nv, meds noted, right chest tube with output, hgb 10 07/05 icu, nv, meds reviewed, labs noted, b/l chest tubes in place 07/06 icu, nv, meds, labs have been ordered, chest tube draining 07/07 icu, chest tubes, on fen, versed, no major changes 07/08 icu, v, chest xray is noted, with worsening right pneumothorax, labs noted 07/09 meds noted, vent, labs reviewed, smear noted. lovenox bid 07/10 icu, on vent, nv, labs reviewed, chest tube functional, on anticoag 07/11 icu, meds noted, nv, on vent, no bleeding, anticoag 07/12 icu, onv ent, nv, no major changes, no bleeding seen, dw rn Objective Objective Current Medications Medications (Trade) Dose Ordered Sig/Maya Route PRN Reason Start Time Stop Time Status Last Admin Dose Admin Acetaminophen (Tylenol) 500 mg Q4H PRN ORAL Mild Pain (Pain Scale 1-3) 06/18/20 00:15 07/18/20 00:14 06/24/20 17:51 Acetaminophen (Tylenol) 500 mg Q4H PRN ORAL Temp >100.5 06/18/20 00:15 07/18/20 00:14 06/29/20 20:01 Chlorhexidine Gluconate (Sissy-Hex 2%) 1 applic DAILY@2000 TOPIC 06/28/20 20:00 09/26/20 19:59 07/12/20 21:21 Dextrose (Dextrose 50%) 25 ml Q30M PRN IV Hypoglycemia 06/18/20 14:15 09/16/20 14:14 Dextrose (Dextrose 50%) 50 ml Q30M PRN IV Hypoglycemia 06/18/20 14:15 09/16/20 14:14 Docusate Sodium (Colace) 100 mg EVERY 8 HOURS NG 07/02/20 14:00 07/28/20 12:59 07/13/20 05:26 Enoxaparin Sodium (Lovenox) 40 mg DAILY SUBQ 07/12/20 09:00 10/10/20 08:59 07/12/20 08:28 Famotidine (Pepcid I.v.) 20 mg BID IVP 07/10/20 09:00 08/09/20 08:59 07/12/20 17:27 Fentanyl Citrate 1000 mcg/Sodium Chloride 120 ml @ 0 mls/hr Q24H PRN IV SEDATION 07/12/20 09:30 07/19/20 09:29 07/13/20 04:36 Haloperidol Lactate (Haldol) 10 mg Q6H PRN IM Agitation 06/23/20 11:30 08/07/20 11:29 06/23/20 11:34 Insulin Aspart (NovoLOG) while NPO Q6HR SUBQ 06/18/20 18:00 09/16/20 17:59 07/12/20 17:28 Midazolam HCl 200 ml @ 0 mls/hr Q24H PRN IV SEDATION 07/11/20 00:00 07/18/20 00:00 07/12/20 17:28 Sodium Chloride 1,000 ml @ 50 mls/hr Q20H IV 06/26/20 08:00 07/26/20 07:59 07/12/20 23:59 Vitamin D (Vitamin D) 2,000 unit DAILY GT 06/29/20 10:30 07/29/20 10:29 07/12/20 08:25 Last 24 Hour Vital Signs Date Time Temp Pulse Resp B/P (MAP) Pulse Ox O2 Delivery O2 Flow Rate FiO2 07/13/20 06:00 97 32 135/86 (102) 64 07/13/20 05:04 101 35 100 07/13/20 05:00 20 108/75 Mechanical Ventilator 100 07/13/20 05:00 19 108/75 Mechanical Ventilator 100 07/13/20 05:00 101 35 132/85 (101) 65 07/13/20 04:36 20 130/80 Mechanical Ventilator 100 07/13/20 04:36 20 130/80 Mechanical Ventilator 100 07/13/20 04:00 Mechanical Ventilator Mechanical Ventilator Mechanical Ventilator Mechanical Ventilator Mechanical Ventilator 07/13/20 04:00 98.1 106 34 134/82 (99) 67 07/13/20 04:00 20 118/77 Mechanical Ventilator 100 07/13/20 04:00 20 126/71 Mechanical Ventilator 100 07/13/20 04:00 100 07/13/20 03:30 110 29 112/73 (86) 78 07/13/20 03:09 109 30 100 07/13/20 03:00 108 24 135/82 (99) 79 07/13/20 03:00 20 115/84 Mechanical Ventilator 100 07/13/20 03:00 20 115/84 Mechanical Ventilator 100 07/13/20 02:00 20 125/73 Mechanical Ventilator 100 07/13/20 02:00 20 125/73 Mechanical Ventilator 100 07/13/20 02:00 115 37 125/80 (95) 68 07/13/20 01:30 115 37 100 07/13/20 01:00 113 34 108/68 (81) 81 07/13/20 01:00 20 130/80 Mechanical Ventilator 100 07/13/20 01:00 20 130/80 Mechanical Ventilator 100 07/13/20 00:00 18 103/67 Mechanical Ventilator 100 07/13/20 00:00 20 103/67 Mechanical Ventilator 100 07/13/20 00:00 Mechanical Ventilator Mechanical Ventilator Mechanical Ventilator Mechanical Ventilator Mechanical Ventilator 07/13/20 00:00 100 07/13/20 00:00 98.2 111 35 120/73 (89) 82 07/12/20 23:09 112 34 100 07/12/20 23:00 20 100/75 Endotracheal Tube 100 07/12/20 23:00 18 100/75 Mechanical Ventilator 100 07/12/20 23:00 110 35 98/64 (75) 86 07/12/20 22:00 106 31 99/68 (78) 87 07/12/20 22:00 20 110/60 Mechanical Ventilator 100 07/12/20 22:00 20 110/60 100 07/12/20 21:00 20 100/65 Mechanical Ventilator 100 07/12/20 21:00 20 100/65 Mechanical Ventilator 100 07/12/20 21:00 106 32 111/73 (86) 90 07/12/20 20:34 111 28 100 07/12/20 20:00 Mechanical Ventilator Mechanical Ventilator Mechanical Ventilator Mechanical Ventilator Mechanical Ventilator 07/12/20 20:00 98.6 116 30 103/63 (76) 90 07/12/20 20:00 100 07/12/20 20:00 20 105/73 Mechanical Ventilator 100 07/12/20 20:00 20 105/73 Mechanical Ventilator 100 07/12/20 19:30 110 32 100 07/12/20 19:00 113 31 99/60 (73) 88 07/12/20 19:00 31 99/60 Endotracheal Tube 100 07/12/20 19:00 31 99/60 Endotracheal Tube 100 07/12/20 18:00 31 107/72 Endotracheal Tube 100 07/12/20 18:00 31 107/72 Endotracheal Tube 100 07/12/20 18:00 106 31 107/72 (84) 91 07/12/20 17:28 29 112/73 Endotracheal Tube 100 07/12/20 17:00 30 120/82 Endotracheal Tube 100 07/12/20 17:00 30 120/82 Endotracheal Tube 100 07/12/20 17:00 106 30 120/82 (95) 90 07/12/20 16:00 32 123/83 Endotracheal Tube 100 07/12/20 16:00 32 123/83 Endotracheal Tube 100 07/12/20 16:00 Mechanical Ventilator Mechanical Ventilator Mechanical Ventilator Mechanical Ventilator Mechanical Ventilator 07/12/20 16:00 100 07/12/20 16:00 99.0 105 32 123/83 (96) 90 07/12/20 16:00 105 07/12/20 15:09 109 33 100 07/12/20 15:00 111 34 122/75 (91) 87 07/12/20 15:00 34 122/75 Endotracheal Tube 100 07/12/20 15:00 34 122/75 Endotracheal Tube 100 07/12/20 14:00 36 84/60 100 07/12/20 14:00 36 84/60 Endotracheal Tube 100 07/12/20 14:00 112 36 84/60 (68) 84 07/12/20 13:00 107 34 98/60 (73) 82 07/12/20 13:00 35 98/60 100 07/12/20 13:00 34 98/60 Endotracheal Tube 100 07/12/20 12:00 100 07/12/20 12:00 Mechanical Ventilator Mechanical Ventilator Mechanical Ventilator Mechanical Ventilator Mechanical Ventilator 07/12/20 12:00 34 97/55 Endotracheal Tube 100 07/12/20 12:00 34 106/68 Endotracheal Tube 100 07/12/20 12:00 98.1 107 34 106/68 (81) 82 07/12/20 12:00 107 07/12/20 11:00 107 21 134/78 (96) 90 07/12/20 11:00 21 134/78 Endotracheal Tube 100 07/12/20 11:00 34 126/75 Endotracheal Tube 100 07/12/20 10:56 111 36 100 07/12/20 10:22 34 113/73 Endotracheal Tube 100 07/12/20 10:00 34 126/75 Endotracheal Tube 100 07/12/20 10:00 34 126/75 Endotracheal Tube 100 07/12/20 10:00 112 34 126/75 (92) 84 07/12/20 09:00 111 35 123/70 (87) 82 07/12/20 09:00 35 123/70 Endotracheal Tube 100 07/12/20 09:00 35 123/70 Endotracheal Tube 100 07/12/20 08:00 113 07/12/20 08:00 100 07/12/20 08:00 34 97/55 Endotracheal Tube 100 07/12/20 08:00 34 97/55 Endotracheal Tube 100 07/12/20 08:00 Mechanical Ventilator Mechanical Ventilator Mechanical Ventilator Mechanical Ventilator Mechanical Ventilator 07/12/20 08:00 99.0 111 34 97/55 (69) 82 07/12/20 07:24 109 32 100 07/12/20 07:00 106 31 107/67 (80) 82 07/12/20 07:00 20 135/74 Mechanical Ventilator 100 07/12/20 07:00 20 135/74 Mechanical Ventilator 100 07/12/20 06:00 19 113/79 Mechanical Ventilator 100 07/12/20 06:00 20 113/79 Mechanical Ventilator 100 07/12/20 06:00 107 31 135/81 (99) 80 07/12/20 05:00 111 32 91/63 (72) 87 07/12/20 05:00 19 105/73 Mechanical Ventilator 100 07/12/20 05:00 19 105/73 Mechanical Ventilator 100 07/12/20 04:00 98.7 114 33 103/67 (79) 78 07/12/20 04:00 114 07/12/20 04:00 19 125/73 Mechanical Ventilator 100 07/12/20 04:00 20 125/73 Mechanical Ventilator 100 07/12/20 04:00 Mechanical Ventilator Mechanical Ventilator Mechanical Ventilator Mechanical Ventilator Mechanical Ventilator 07/12/20 04:00 100 07/12/20 03:00 19 129/80 Mechanical Ventilator 100 07/12/20 03:00 19 129/80 Mechanical Ventilator 100 07/12/20 03:00 114 32 105/68 (80) 74 07/12/20 02:00 20 134/86 Mechanical Ventilator 100 07/12/20 02:00 20 140/78 100 07/12/20 02:00 121 25 108/68 (81) 77 07/12/20 01:43 121 37 100 07/12/20 01:00 125 31 119/72 (88) 73 07/12/20 01:00 20 122/62 Mechanical Ventilator 100 07/12/20 01:00 20 142/95 Mechanical Ventilator 100 07/12/20 00:00 100 07/12/20 00:00 19 135/83 Mechanical Ventilator 100 07/12/20 00:00 19 112/82 Mechanical Ventilator 100 07/12/20 00:00 98.3 128 26 106/64 (78) 76 07/12/20 00:00 127 07/12/20 00:00 Mechanical Ventilator Mechanical Ventilator Mechanical Ventilator Mechanical Ventilator Mechanical Ventilator 07/11/20 23:15 19 130/77 Mechanical Ventilator 100 07/11/20 23:10 19 125/85 Mechanical Ventilator 100 07/11/20 23:02 128/73 07/11/20 23:00 126 32 130/77 (94) 73 07/11/20 23:00 20 125/85 Mechanical Ventilator 100 07/11/20 23:00 20 115/82 Mechanical Ventilator 100 07/11/20 22:00 128 27 123/69 (87) 67 07/11/20 22:00 19 131/75 Mechanical Ventilator 100 07/11/20 22:00 19 135/67 Mechanical Ventilator 100 07/11/20 21:00 131 27 117/69 (85) 82 07/11/20 21:00 18 142/82 Endotracheal Tube 100 07/11/20 21:00 19 147/84 Endotracheal Tube 100 07/11/20 21:00 19 133/79 Endotracheal Tube 100 07/11/20 20:00 Mechanical Ventilator Mechanical Ventilator Mechanical Ventilator Mechanical Ventilator Mechanical Ventilator 07/11/20 20:00 98.6 129 31 100/67 (78) 73 07/11/20 20:00 131 07/11/20 20:00 20 130/85 Endotracheal Tube 100 07/11/20 20:00 18 118/75 Endotracheal Tube 100 07/11/20 20:00 100 07/11/20 19:58 131 32 100 07/11/20 19:13 32 119/69 100 07/11/20 19:00 126 31 119/69 (86) 60 07/11/20 19:00 18 132/74 Endotracheal Tube 100 07/11/20 18:50 123 29 100 07/11/20 18:00 20 99/65 Endotracheal Tube 100 07/11/20 18:00 20 99/65 Endotracheal Tube 100 07/11/20 18:00 120 20 99/65 (76) 77 07/11/20 17:12 115 20 100 07/11/20 17:00 115 20 126/70 (88) 94 07/11/20 17:00 20 126/70 Endotracheal Tube 100 07/11/20 17:00 20 126/70 Endotracheal Tube 100 07/11/20 16:00 Mechanical Ventilator Mechanical Ventilator Mechanical Ventilator Mechanical Ventilator Mechanical Ventilator 07/11/20 16:00 98.2 117 23 99/63 (75) 65 07/11/20 16:00 100 07/11/20 16:00 23 99/63 Endotracheal Tube 100 07/11/20 16:00 23 99/63 Endotracheal Tube 100 07/11/20 16:00 115 07/11/20 15:00 35 126/70 Endotracheal Tube 100 07/11/20 15:00 35 126/70 Endotracheal Tube 100 07/11/20 15:00 127 35 126/70 (88) 52 07/11/20 14:38 128 37 100 07/11/20 14:00 117 35 153/81 (105) 71 07/11/20 14:00 35 153/81 Endotracheal Tube 100 07/11/20 14:00 35 153/81 Endotracheal Tube 100 07/11/20 13:00 113 29 93/62 (72) 79 07/11/20 13:00 29 93/62 Endotracheal Tube 100 07/11/20 13:00 29 93/62 Endotracheal Tube 100 07/11/20 12:00 Mechanical Ventilator Mechanical Ventilator Mechanical Ventilator Mechanical Ventilator Mechanical Ventilator 07/11/20 12:00 99.3 07/11/20 12:00 100 07/11/20 12:00 29 123/63 Endotracheal Tube 100 07/11/20 12:00 29 123/63 Endotracheal Tube 100 07/11/20 12:00 111 07/11/20 12:00 111 34 123/39 (67) 71 07/11/20 11:05 106 26 100 07/11/20 11:00 102 30 125/58 (80) 81 07/11/20 11:00 30 125/58 Endotracheal Tube 100 07/11/20 11:00 30 125/58 Endotracheal Tube 100 07/11/20 10:00 29 117/65 Endotracheal Tube 100 07/11/20 10:00 29 117/65 Endotracheal Tube 100 07/11/20 10:00 105 30 110/66 (81) 73 07/11/20 09:30 102 29 121/64 (83) 61 07/11/20 09:00 99 28 133/64 (87) 55 07/11/20 09:00 29 131/66 Endotracheal Tube 100 07/11/20 09:00 29 131/66 Endotracheal Tube 100 07/11/20 08:30 98 24 135/75 (95) 73 07/11/20 08:00 Mechanical Ventilator Mechanical Ventilator Mechanical Ventilator Mechanical Ventilator Mechanical Ventilator 07/11/20 08:00 25 151/74 Endotracheal Tube 100 07/11/20 08:00 25 151/74 Endotracheal Tube 100 07/11/20 08:00 97.5 91 22 121/70 (87) 92 07/11/20 08:00 108 07/11/20 08:00 100 07/11/20 07:35 94 21 100 07/11/20 07:30 96 19 123/67 (85) 79 07/11/20 07:00 25 150/79 Mechanical Ventilator 100 07/11/20 07:00 25 150/79 Mechanical Ventilator 100 07/11/20 07:00 87 25 150/79 (102) 80 Intake and Output 07/12/20 07/13/20 19:00 07:00 Intake Total 1586.2 ml 1311.88 ml Output Total 195 ml 165 ml Balance 1391.2 ml 1146.88 ml Intake Free Water 100 ml IV Total 826.2 ml 706.88 ml Tube Feeding 660 ml 605 ml Output Urine Total 135 ml 165 ml Chest Tube Drainage Total 60 ml Labs Test 07/11/20 05:50 07/12/20 06:40 07/12/20 07:00 07/13/20 05:38 White Blood Count 7.2 K/UL (4.8-10.8) 7.1 K/UL (4.8-10.8) Red Blood Count 3.02 M/UL (4.20-5.40) 3.11 M/UL (4.20-5.40) Hemoglobin 9.0 G/DL (12.0-16.0) 9.3 G/DL (12.0-16.0) Hematocrit 29.9 % (37.0-47.0) 30.9 % (37.0-47.0) Mean Corpuscular Volume 99 FL (80-99) 99 FL (80-99) Mean Corpuscular Hemoglobin 30.0 PG (27.0-31.0) 29.9 PG (27.0-31.0) Mean Corpuscular Hemoglobin Concent 30.3 G/DL (32.0-36.0) 30.1 G/DL (32.0-36.0) Red Cell Distribution Width 17.2 % (11.6-14.8) 17.6 % (11.6-14.8) Platelet Count 230 K/UL (150-450) 283 K/UL (150-450) Mean Platelet Volume 9.3 FL (6.5-10.1) 9.3 FL (6.5-10.1) Neutrophils (%) (Auto) 79.3 % (45.0-75.0) 73.7 % (45.0-75.0) Lymphocytes (%) (Auto) 10.8 % (20.0-45.0) 14.5 % (20.0-45.0) Monocytes (%) (Auto) 5.0 % (1.0-10.0) 7.3 % (1.0-10.0) Eosinophils (%) (Auto) 4.1 % (0.0-3.0) 3.3 % (0.0-3.0) Basophils (%) (Auto) 0.9 % (0.0-2.0) 1.2 % (0.0-2.0) Sodium Level 143 MMOL/L (136-145) 142 MMOL/L (136-145) Potassium Level 4.0 MMOL/L (3.5-5.1) 4.7 MMOL/L (3.5-5.1) Chloride Level 104 MMOL/L (98-107) 104 MMOL/L (98-107) Carbon Dioxide Level 37 MMOL/L (21-32) 36 MMOL/L (21-32) Anion Gap 2 mmol/L (5-15) 2 mmol/L (5-15) Blood Urea Nitrogen 14 mg/dL (7-18) 19 mg/dL (7-18) Creatinine 0.4 MG/DL (0.55-1.30) 0.4 MG/DL (0.55-1.30) Estimat Glomerular Filtration Rate > 60 mL/min (>60) > 60 mL/min (>60) Glucose Level 103 MG/DL (74-106) 105 MG/DL (74-106) Uric Acid 1.8 MG/DL (2.6-7.2) Calcium Level 7.8 MG/DL (8.5-10.1) 7.7 MG/DL (8.5-10.1) Phosphorus Level 3.1 MG/DL (2.5-4.9) Magnesium Level 2.4 MG/DL (1.8-2.4) Total Bilirubin 0.4 MG/DL (0.2-1.0) 0.5 MG/DL (0.2-1.0) Aspartate Amino Transf (AST/SGOT) 50 U/L (15-37) 146 U/L (15-37) Alanine Aminotransferase (ALT/SGPT) 40 U/L (12-78) 107 U/L (12-78) Alkaline Phosphatase 167 U/L (46-116) 184 U/L (46-116) C-Reactive Protein, Quantitative 12.8 mg/dL (0.00-0.90) Pro-B-Type Natriuretic Peptide 2265 pg/mL (0-125) Total Protein 6.1 G/DL (6.4-8.2) 6.3 G/DL (6.4-8.2) Albumin 1.0 G/DL (3.4-5.0) 1.1 G/DL (3.4-5.0) Globulin 5.1 g/dL 5.2 g/dL Albumin/Globulin Ratio 0.2 (1.0-2.7) 0.2 (1.0-2.7) Height (Feet): 5 Height (Inches): 2.00 Weight (Pounds): 138 Objective Physical Exam Vitals: reviewed, abnormal - Interpreted as low by me General: GCS 15 - Sometimes slightly confused, non-toxic, mild distress Head: normocephalic, moist mucus membranes Neck: supple Respiratory: ++bilateral chest tubes Cardiovascular: regular rate, rhythm, no edema Gastrointestinal: normal inspection, non tender, soft Genitourinary: no CVA tenderness Musculoskeletal: back normal Neurologic: alert, oriented x3, grossly normal Psychiatric: mood/affect normal - sometimes confused Skin: no rash, warm/dry Jj Swann MD Jul 13, 2020 06:40
--- NOTE | 2020-07-13 07:37 | NUR ---
NURSE HAND-OFF REPORT: Latest Vital Signs: Temperature 98.1 , Pulse 94 , B/P 123 /82 , Respiratory Rate 20 , O2 SAT 64 , Mechanical Ventilator, O2 Flow Rate . Vital Sign Comment: [monitor O2 sat] EKG Rhythm: Sinus Rhythm Rhythm change?: N MD Notified?: Chante -Dr. Sewell see nurses note MD Response: No New Orders Received Latest Carney Fall Score: 50 Fall Risk: High Risk Safety Measures: Call light Within Reach, Bed Alarm Zone 2, Side Rails Side Rails x3, Bed position Low and Locked. Fall Precautions: Yellow Socks Door Sign Patient Fall Education Report given to [Natty Rossi RN].
--- NOTE | 2020-07-13 07:50 | NUR ---
NURSE NOTES: Report received from Geronimo France RN.Pt non responsive,sedated,orally intubated at 7.5,lip line 20cm,connected to [facility] Vent AC20,TV 400,Fio2 100%,Peep 12,noted no resp distress,no signs of discomfort noted SR on the monitor,OGT feeding Glucerna 1.2 at 55 ml/hr,in placed per auscultation,no residual noted,Martin cath draining richelle urine,skin warm and dry with IV PICC line to TONY intact with Fentanyl drip at 60 mcg /hr and Versed 6mg /hr,,SR up x 2 HOB elevated ,bed lock in lowest position,will continue with plans of care.
--- NOTE | 2020-07-13 08:39 | Nephrology Progress Note ---
Assessment/Plan Problem List: (1) LEONARDO (acute kidney injury) (2) Dehydration (3) DMII (diabetes mellitus, type 2) (4) Pneumonia due to COVID-19 virus (5) Hypoxia Assessment 70-year-old female presents with COVID-19 pneumonia and hypoxia On admission has BUN of 77 and creatinine of 1.6. Renal failure most likely prerenal and dehydration with possible underlying chronic kidney disease Patient has elevated inflammatory markers Hypoalbuminemia Electrolyte abnormalities Hyperglycemia Plan July 13: Clinical status unchanged and remains very unstable. FiO2 is remains 100% intubated on ventilator with bilateral chest tube. No labs drawn today July 12: Status unchanged. Remains and high FiO2 of 100% with bilateral chest tube. Labs reviewed. Renal parameters stable. Continue per consultants. Prognosis remains poor. July 11: Patient is doing poorly. Remains on FiO2 of 100%. Patient is DNR however intubated on ventilator with 2 chest tubes. Discussed with RN. Labs and medication list reviewed. Not much to add from renal standpoint of view. July 10: Status quo. FiO2 100%. Remains intubated. Will check lab tomorrow. Continue per consultants. July 09: Status quo. FiO2 100%. Intubated on ventilator with bilateral chest tube. Labs reviewed. Renal parameters stable however overall status and clinical condition remains poor. Patient DNR. July 08: DNR. Intubated on ventilator. FiO2 100%. Bilateral chest tube. Labs reviewed. Renal parameters stable. July 07: FiO2 100%. Renal parameters stable. Remains intubated with bilateral chest tube. Continue per pulmonary. July 06: Labs reviewed. Renal parameters stable. ABG suggests retaining of CO2. Patient continues to be on FiO2 100%. Has bilateral chest tubes. Remains intubated on ventilator. Continue to monitor renal parameters. July 05: No CHEM panel drawn today. Status quo. Pulmonary status unchanged. We will continue to monitor renal parameters and electrolytes. Continue per consultants. July 04: Status quo. On ventilator. Full code. Bilateral chest tube. Renal parameters stable. July 03: Patient remains full code. Intubated on ventilator. Has chest tube. Labs reviewed. Renal parameters stable. Continue per consultants. July 02: Remains intubated. Has a bilateral chest tube. He is full code. Labs reviewed. Abnormal electrolyte addressed. Continue per consultants. July 01: Remains intubated. Continues to have bilateral chest tube. Full code. Labs reviewed. Renal parameters stable. Low phosphorus addressed. Discussed with NORMAN Lyon. June 30: Full code. Intubated. Bilateral chest tube. As reviewed. Abnormal electrolytes addressed. June 29: Full code. Intubated. Bilateral chest tube. Unstable pulmonary status. ABG ordered. Electrolyte imbalance addressed. Discussed with NORMAN Montalvo. June 28: Labs reviewed. Abnormal electrolytes addressed. Patient remains full code. Continue per consultants. June 27: No chemistry panel done today. Remains full code. Medication list reviewed. Continue per consultants. Will monitor electrolytes and renal panel in a.m. June 26: Status quo. Remains full code. Labs reviewed. Main IV changed to normal saline 50 cc an hour. Continue per consultants and pulmonary. June 25: Remains intubated. Has bilateral chest tube. Full code. Labs reviewed. Abnormal electrolytes addressed. Albumin bolus given. Continue to monitor renal parameters. Poor prognosis. June 24: Patient in ICU. Intubated. Has bilateral chest tube. Labs reviewed. Renal parameters stable. Low phosphorus addressed. Continue per consultants. Full code. Poor prognosis. June 23: Patient in ICU. Intubated. Due for insertion of a chest tube. Has pneumothorax. Renal parameters are stable. Serum sodium rising. Will adjust IV fluid. Continue per consultants. Patient full code. Prognosis poor. June 22: Labs reviewed. Remains on BiPAP which is not changed to high flow oxygen due to pneumothorax found on chest x-ray. Serum sodium 155. Continues on D5W. Electrolytes within normal limits. Check 2D echocardiogram. Coreg for blood pressure and heart rate. June 21: Status quo. On BiPAP. Full code. Serum sodium 153. Continue D5W. Continue to monitor electrolytes. Continue per consultants. June 20: Patient full code. On BiPAP. Labs reviewed. Serum sodium rising. Will increase D5W to 75 cc an hour. Continue to monitor electrolytes. June 19: IV changed to D5W. Monitor blood sugar. Monitor electrolytes. Medication list reviewed. Patient is being treated for COVID-19 pneumonia. Patient is full code. Previously Pulmonary support IV antibiotics Slow hydration Avoid nephrotoxic Monitor renal parameters Per orders Subjective ROS Limited/Unobtainable: Yes Objective Objective Last 24 Hour Vital Signs Date Time Temp Pulse Resp B/P (MAP) Pulse Ox O2 Delivery O2 Flow Rate FiO2 07/13/20 08:08 94 33 125/72 (89) 64 07/13/20 08:00 33 125/72 Mechanical Ventilator 64 07/13/20 08:00 33 125/72 Mechanical Ventilator 64 07/13/20 08:00 100 07/13/20 08:00 94 07/13/20 07:00 94 34 137/75 (95) 64 07/13/20 07:00 20 123/82 Mechanical Ventilator 100 07/13/20 07:00 19 123/82 100 07/13/20 06:00 20 116/79 Mechanical Ventilator 100 07/13/20 06:00 20 116/79 Mechanical Ventilator 100 07/13/20 06:00 97 32 135/86 (102) 64 07/13/20 05:04 101 35 100 07/13/20 05:00 20 108/75 Mechanical Ventilator 100 07/13/20 05:00 19 108/75 Mechanical Ventilator 100 07/13/20 05:00 101 35 132/85 (101) 65 07/13/20 04:36 20 130/80 Mechanical Ventilator 100 07/13/20 04:36 20 130/80 Mechanical Ventilator 100 07/13/20 04:00 Mechanical Ventilator Mechanical Ventilator Mechanical Ventilator Mechanical Ventilator Mechanical Ventilator 07/13/20 04:00 85 07/13/20 04:00 98.1 106 34 134/82 (99) 67 07/13/20 04:00 20 118/77 Mechanical Ventilator 100 07/13/20 04:00 20 126/71 Mechanical Ventilator 100 07/13/20 04:00 100 07/13/20 03:30 110 29 112/73 (86) 78 07/13/20 03:09 109 30 100 07/13/20 03:00 108 24 135/82 (99) 79 07/13/20 03:00 20 115/84 Mechanical Ventilator 100 07/13/20 03:00 20 115/84 Mechanical Ventilator 100 07/13/20 02:00 20 125/73 Mechanical Ventilator 100 07/13/20 02:00 20 125/73 Mechanical Ventilator 100 07/13/20 02:00 115 37 125/80 (95) 68 07/13/20 01:30 115 37 100 07/13/20 01:00 113 34 108/68 (81) 81 07/13/20 01:00 20 130/80 Mechanical Ventilator 100 07/13/20 01:00 20 130/80 Mechanical Ventilator 100 07/13/20 00:00 88 07/13/20 00:00 18 103/67 Mechanical Ventilator 100 07/13/20 00:00 20 103/67 Mechanical Ventilator 100 07/13/20 00:00 Mechanical Ventilator Mechanical Ventilator Mechanical Ventilator Mechanical Ventilator Mechanical Ventilator 07/13/20 00:00 100 07/13/20 00:00 98.2 111 35 120/73 (89) 82 07/12/20 23:09 112 34 100 07/12/20 23:00 20 100/75 Endotracheal Tube 100 07/12/20 23:00 18 100/75 Mechanical Ventilator 100 07/12/20 23:00 110 35 98/64 (75) 86 07/12/20 22:00 106 31 99/68 (78) 87 07/12/20 22:00 20 110/60 Mechanical Ventilator 100 07/12/20 22:00 20 110/60 100 07/12/20 21:00 20 100/65 Mechanical Ventilator 100 07/12/20 21:00 20 100/65 Mechanical Ventilator 100 07/12/20 21:00 106 32 111/73 (86) 90 07/12/20 20:34 111 28 100 07/12/20 20:00 Mechanical Ventilator Mechanical Ventilator Mechanical Ventilator Mechanical Ventilator Mechanical Ventilator 07/12/20 20:00 98.6 116 30 103/63 (76) 90 07/12/20 20:00 100 07/12/20 20:00 20 105/73 Mechanical Ventilator 100 07/12/20 20:00 20 105/73 Mechanical Ventilator 100 07/12/20 20:00 79 07/12/20 19:30 110 32 100 07/12/20 19:00 113 31 99/60 (73) 88 07/12/20 19:00 31 99/60 Endotracheal Tube 100 07/12/20 19:00 31 99/60 Endotracheal Tube 100 07/12/20 18:00 31 107/72 Endotracheal Tube 100 07/12/20 18:00 31 107/72 Endotracheal Tube 100 07/12/20 18:00 106 31 107/72 (84) 91 07/12/20 17:28 29 112/73 Endotracheal Tube 100 07/12/20 17:00 30 120/82 Endotracheal Tube 100 07/12/20 17:00 30 120/82 Endotracheal Tube 100 07/12/20 17:00 106 30 120/82 (95) 90 07/12/20 16:00 32 123/83 Endotracheal Tube 100 07/12/20 16:00 32 123/83 Endotracheal Tube 100 07/12/20 16:00 Mechanical Ventilator Mechanical Ventilator Mechanical Ventilator Mechanical Ventilator Mechanical Ventilator 07/12/20 16:00 100 07/12/20 16:00 99.0 105 32 123/83 (96) 90 07/12/20 16:00 105 07/12/20 15:09 109 33 100 07/12/20 15:00 111 34 122/75 (91) 87 07/12/20 15:00 34 122/75 Endotracheal Tube 100 07/12/20 15:00 34 122/75 Endotracheal Tube 100 07/12/20 14:00 36 84/60 100 07/12/20 14:00 36 84/60 Endotracheal Tube 100 07/12/20 14:00 112 36 84/60 (68) 84 07/12/20 13:00 107 34 98/60 (73) 82 07/12/20 13:00 35 98/60 100 07/12/20 13:00 34 98/60 Endotracheal Tube 100 07/12/20 12:00 100 07/12/20 12:00 Mechanical Ventilator Mechanical Ventilator Mechanical Ventilator Mechanical Ventilator Mechanical Ventilator 07/12/20 12:00 34 97/55 Endotracheal Tube 100 07/12/20 12:00 34 106/68 Endotracheal Tube 100 07/12/20 12:00 98.1 107 34 106/68 (81) 82 07/12/20 12:00 107 07/12/20 11:00 107 21 134/78 (96) 90 07/12/20 11:00 21 134/78 Endotracheal Tube 100 07/12/20 11:00 34 126/75 Endotracheal Tube 100 07/12/20 10:56 111 36 100 07/12/20 10:22 34 113/73 Endotracheal Tube 100 07/12/20 10:00 34 126/75 Endotracheal Tube 100 07/12/20 10:00 34 126/75 Endotracheal Tube 100 07/12/20 10:00 112 34 126/75 (92) 84 07/12/20 09:00 111 35 123/70 (87) 82 07/12/20 09:00 35 123/70 Endotracheal Tube 100 07/12/20 09:00 35 123/70 Endotracheal Tube 100 Intake and Output 07/12/20 07/13/20 19:00 07:00 Intake Total 1586.2 ml 1436.08 ml Output Total 195 ml 180 ml Balance 1391.2 ml 1256.08 ml Intake Free Water 100 ml IV Total 826.2 ml 776.08 ml Tube Feeding 660 ml 660 ml Output Urine Total 135 ml 180 ml Chest Tube Drainage Total 60 ml Current Medications Medications (Trade) Dose Ordered Sig/Maya Route PRN Reason Start Time Stop Time Status Last Admin Dose Admin Acetaminophen (Tylenol) 500 mg Q4H PRN ORAL Mild Pain (Pain Scale 1-3) 06/18/20 00:15 07/18/20 00:14 06/24/20 17:51 Acetaminophen (Tylenol) 500 mg Q4H PRN ORAL Temp >100.5 06/18/20 00:15 07/18/20 00:14 06/29/20 20:01 Chlorhexidine Gluconate (Sissy-Hex 2%) 1 applic DAILY@2000 TOPIC 06/28/20 20:00 09/26/20 19:59 07/12/20 21:21 Dextrose (Dextrose 50%) 25 ml Q30M PRN IV Hypoglycemia 06/18/20 14:15 09/16/20 14:14 Dextrose (Dextrose 50%) 50 ml Q30M PRN IV Hypoglycemia 06/18/20 14:15 09/16/20 14:14 Docusate Sodium (Colace) 100 mg EVERY 8 HOURS NG 07/02/20 14:00 07/28/20 12:59 07/13/20 05:26 Enoxaparin Sodium (Lovenox) 40 mg DAILY SUBQ 07/12/20 09:00 10/10/20 08:59 07/12/20 08:28 Famotidine (Pepcid I.v.) 20 mg BID IVP 07/10/20 09:00 08/09/20 08:59 07/12/20 17:27 Fentanyl Citrate 1000 mcg/Sodium Chloride 120 ml @ 0 mls/hr Q24H PRN IV SEDATION 07/12/20 09:30 07/19/20 09:29 07/13/20 04:36 Haloperidol Lactate (Haldol) 10 mg Q6H PRN IM Agitation 06/23/20 11:30 08/07/20 11:29 06/23/20 11:34 Insulin Aspart (NovoLOG) while NPO Q6HR SUBQ 06/18/20 18:00 09/16/20 17:59 07/12/20 17:28 Midazolam HCl 200 ml @ 0 mls/hr Q24H PRN IV SEDATION 07/11/20 00:00 07/18/20 00:00 07/12/20 17:28 Sodium Chloride 1,000 ml @ 50 mls/hr Q20H IV 06/26/20 08:00 07/26/20 07:59 07/12/20 23:59 Vitamin D (Vitamin D) 2,000 unit DAILY GT 06/29/20 10:30 07/29/20 10:29 07/12/20 08:25 Laboratory Tests 07/13/20 05:38: White Blood Count 7.6, Red Blood Count 3.14L, Hemoglobin 9.5L, Hematocrit 31.3L, Mean Corpuscular Volume 100H, Mean Corpuscular Hemoglobin 30.2, Mean Corpuscular Hemoglobin Concent 30.3L, Red Cell Distribution Width 18.3H, Platelet Count 330, Mean Platelet Volume 8.8, Neutrophils (%) (Auto) 79.9H, Lymphocytes (%) (Auto) 13.4L, Monocytes (%) (Auto) 4.1, Eosinophils (%) (Auto) 1.7, Basophils (%) (Auto) 0.9 Height (Feet): 5 Height (Inches): 2.00 Weight (Pounds): 138 General Appearance: mild distress EENT: other - Intubated on ventilator Cardiovascular: tachycardia Respiratory/Chest: decreased breath sounds, other - Bilateral chest tube Abdomen: distended Raza De Jesus MD Jul 13, 2020 08:39
[2020-07-13] MEDS: Enoxaparin 40mg Inj SUBQ SCH (09:08)
[2020-07-13] MEDS: Vitamin D 1000 units Tab GT SCH (09:08)
--- NOTE | 2020-07-13 09:30 | NUR ---
NURSE NOTES: Dr Frazier at bedside,informed re no out put from Chest tubes during the night,ordered to get Cxray.
--- NOTE | 2020-07-13 09:30 | NUR ---
NURSE NOTES: Dr Frazier at bedside,informed re low out put on both chest tubes,ordered for C XRAY today.
--- NOTE | 2020-07-13 10:00 | NUR ---
NURSE NOTES: Dr Sewell at bedside ,updated re pt's status,discussed with pt's son re plans of care.
--- NOTE | 2020-07-13 10:06 | NUR ---
NURSE NOTES: Dr. Butts here - seen patient - made aware that patient is only saturating 58-70% on current ventilator setting. Dr. Sewell would like to speak to the family- attempted to call sons( Car and Ethan) voice mail full. Message left to daughter (Suyapa) to call the unit.
--- NOTE | 2020-07-13 10:16 | Pulmonology Progress Note ---
Subjective ROS Limited/Unobtainable: Yes Interval Events: Remains intubated; bilateral chest tubes in place Constitutional: Denies: fever HEENT: Repors: no symptoms Respiratory: Reports: shortness of breath Cardiovascular: Reports: no symptoms Gastrointestinal/Abdominal: Reports: no symptoms Allergies: Coded Allergies: No Known Allergies (Unverified , 06/17/20) All Systems: reviewed and negative except above Objective Last 24 Hour Vital Signs Date Time Temp Pulse Resp B/P (MAP) Pulse Ox O2 Delivery O2 Flow Rate FiO2 07/13/20 10:04 88 32 123/70 (87) 70 07/13/20 09:00 89 24 123/74 (90) 80 07/13/20 08:30 98.4 07/13/20 08:08 94 33 125/72 (89) 64 07/13/20 08:00 33 125/72 Mechanical Ventilator 64 07/13/20 08:00 33 125/72 Mechanical Ventilator 64 07/13/20 08:00 100 07/13/20 08:00 94 07/13/20 07:11 96 35 100 07/13/20 07:00 94 34 137/75 (95) 64 07/13/20 07:00 20 123/82 Mechanical Ventilator 100 07/13/20 07:00 19 123/82 100 07/13/20 06:00 20 116/79 Mechanical Ventilator 100 07/13/20 06:00 20 116/79 Mechanical Ventilator 100 07/13/20 06:00 97 32 135/86 (102) 64 07/13/20 05:04 101 35 100 07/13/20 05:00 20 108/75 Mechanical Ventilator 100 07/13/20 05:00 19 108/75 Mechanical Ventilator 100 07/13/20 05:00 101 35 132/85 (101) 65 07/13/20 04:36 20 130/80 Mechanical Ventilator 100 07/13/20 04:36 20 130/80 Mechanical Ventilator 100 07/13/20 04:00 Mechanical Ventilator Mechanical Ventilator Mechanical Ventilator Mechanical Ventilator Mechanical Ventilator 07/13/20 04:00 85 07/13/20 04:00 98.1 106 34 134/82 (99) 67 07/13/20 04:00 20 118/77 Mechanical Ventilator 100 07/13/20 04:00 20 126/71 Mechanical Ventilator 100 07/13/20 04:00 100 07/13/20 03:30 110 29 112/73 (86) 78 07/13/20 03:09 109 30 100 07/13/20 03:00 108 24 135/82 (99) 79 07/13/20 03:00 20 115/84 Mechanical Ventilator 100 07/13/20 03:00 20 115/84 Mechanical Ventilator 100 07/13/20 02:00 20 125/73 Mechanical Ventilator 100 07/13/20 02:00 20 125/73 Mechanical Ventilator 100 07/13/20 02:00 115 37 125/80 (95) 68 07/13/20 01:30 115 37 100 07/13/20 01:00 113 34 108/68 (81) 81 07/13/20 01:00 20 130/80 Mechanical Ventilator 100 07/13/20 01:00 20 130/80 Mechanical Ventilator 100 07/13/20 00:00 88 07/13/20 00:00 18 103/67 Mechanical Ventilator 100 07/13/20 00:00 20 103/67 Mechanical Ventilator 100 07/13/20 00:00 Mechanical Ventilator Mechanical Ventilator Mechanical Ventilator Mechanical Ventilator Mechanical Ventilator 07/13/20 00:00 100 07/13/20 00:00 98.2 111 35 120/73 (89) 82 07/12/20 23:09 112 34 100 07/12/20 23:00 20 100/75 Endotracheal Tube 100 07/12/20 23:00 18 100/75 Mechanical Ventilator 100 07/12/20 23:00 110 35 98/64 (75) 86 07/12/20 22:00 106 31 99/68 (78) 87 07/12/20 22:00 20 110/60 Mechanical Ventilator 100 07/12/20 22:00 20 110/60 100 07/12/20 21:00 20 100/65 Mechanical Ventilator 100 07/12/20 21:00 20 100/65 Mechanical Ventilator 100 07/12/20 21:00 106 32 111/73 (86) 90 07/12/20 20:34 111 28 100 07/12/20 20:00 Mechanical Ventilator Mechanical Ventilator Mechanical Ventilator Mechanical Ventilator Mechanical Ventilator 07/12/20 20:00 98.6 116 30 103/63 (76) 90 07/12/20 20:00 100 07/12/20 20:00 20 105/73 Mechanical Ventilator 100 07/12/20 20:00 20 105/73 Mechanical Ventilator 100 07/12/20 20:00 79 07/12/20 19:30 110 32 100 07/12/20 19:00 113 31 99/60 (73) 88 07/12/20 19:00 31 99/60 Endotracheal Tube 100 07/12/20 19:00 31 99/60 Endotracheal Tube 100 07/12/20 18:00 31 107/72 Endotracheal Tube 100 07/12/20 18:00 31 107/72 Endotracheal Tube 100 07/12/20 18:00 106 31 107/72 (84) 91 07/12/20 17:28 29 112/73 Endotracheal Tube 100 07/12/20 17:00 30 120/82 Endotracheal Tube 100 07/12/20 17:00 30 120/82 Endotracheal Tube 100 07/12/20 17:00 106 30 120/82 (95) 90 07/12/20 16:00 32 123/83 Endotracheal Tube 100 07/12/20 16:00 32 123/83 Endotracheal Tube 100 07/12/20 16:00 Mechanical Ventilator Mechanical Ventilator Mechanical Ventilator Mechanical Ventilator Mechanical Ventilator 07/12/20 16:00 100 07/12/20 16:00 99.0 105 32 123/83 (96) 90 07/12/20 16:00 105 07/12/20 15:09 109 33 100 07/12/20 15:00 111 34 122/75 (91) 87 07/12/20 15:00 34 122/75 Endotracheal Tube 100 07/12/20 15:00 34 122/75 Endotracheal Tube 100 07/12/20 14:00 36 84/60 100 07/12/20 14:00 36 84/60 Endotracheal Tube 100 07/12/20 14:00 112 36 84/60 (68) 84 07/12/20 13:00 107 34 98/60 (73) 82 07/12/20 13:00 35 98/60 100 07/12/20 13:00 34 98/60 Endotracheal Tube 100 07/12/20 12:00 100 07/12/20 12:00 Mechanical Ventilator Mechanical Ventilator Mechanical Ventilator Mechanical Ventilator Mechanical Ventilator 07/12/20 12:00 34 97/55 Endotracheal Tube 100 07/12/20 12:00 34 106/68 Endotracheal Tube 100 07/12/20 12:00 98.1 107 34 106/68 (81) 82 07/12/20 12:00 107 07/12/20 11:00 107 21 134/78 (96) 90 07/12/20 11:00 21 134/78 Endotracheal Tube 100 07/12/20 11:00 34 126/75 Endotracheal Tube 100 07/12/20 10:56 111 36 100 07/12/20 10:22 34 113/73 Endotracheal Tube 100 Intake and Output 07/12/20 07/13/20 19:00 07:00 Intake Total 1586.2 ml 1436.08 ml Output Total 195 ml 180 ml Balance 1391.2 ml 1256.08 ml Intake Free Water 100 ml IV Total 826.2 ml 776.08 ml Tube Feeding 660 ml 660 ml Output Urine Total 135 ml 180 ml Chest Tube Drainage Total 60 ml General Appearance: no acute distress HEENT: atraumatic Respiratory: crackles/rales Cardiovascular: normal rate Abdomen: soft, non tender Laboratory Tests 07/13/20 05:38: White Blood Count 7.6, Red Blood Count 3.14L, Hemoglobin 9.5L, Hematocrit 31.3L, Mean Corpuscular Volume 100H, Mean Corpuscular Hemoglobin 30.2, Mean Corpuscular Hemoglobin Concent 30.3L, Red Cell Distribution Width 18.3H, Platelet Count 330, Mean Platelet Volume 8.8, Neutrophils (%) (Auto) 79.9H, Lymphocytes (%) (Auto) 13.4L, Monocytes (%) (Auto) 4.1, Eosinophils (%) (Auto) 1.7, Basophils (%) (Auto) 0.9 Current Medications Medications (Trade) Dose Ordered Sig/Maya Route PRN Reason Start Time Stop Time Status Last Admin Dose Admin Acetaminophen (Tylenol) 500 mg Q4H PRN ORAL Mild Pain (Pain Scale 1-3) 06/18/20 00:15 07/18/20 00:14 06/24/20 17:51 Acetaminophen (Tylenol) 500 mg Q4H PRN ORAL Temp >100.5 06/18/20 00:15 07/18/20 00:14 06/29/20 20:01 Chlorhexidine Gluconate (Sissy-Hex 2%) 1 applic DAILY@2000 TOPIC 06/28/20 20:00 09/26/20 19:59 07/12/20 21:21 Dextrose (Dextrose 50%) 25 ml Q30M PRN IV Hypoglycemia 06/18/20 14:15 4/28/21 14:14 Dextrose (Dextrose 50%) 50 ml Q30M PRN IV Hypoglycemia 06/18/20 14:15 09/16/20 14:14 Docusate Sodium (Colace) 100 mg EVERY 8 HOURS NG 07/02/20 14:00 07/28/20 12:59 07/13/20 05:26 Enoxaparin Sodium (Lovenox) 40 mg DAILY SUBQ 07/12/20 09:00 10/10/20 08:59 07/13/20 09:08 Famotidine (Pepcid I.v.) 20 mg BID IVP 07/10/20 09:00 08/09/20 08:59 07/13/20 09:08 Fentanyl Citrate 1000 mcg/Sodium Chloride 120 ml @ 0 mls/hr Q24H PRN IV SEDATION 07/12/20 09:30 07/19/20 09:29 07/13/20 04:36 Haloperidol Lactate (Haldol) 10 mg Q6H PRN IM Agitation 06/23/20 11:30 08/07/20 11:29 06/23/20 11:34 Insulin Aspart (NovoLOG) while NPO Q6HR SUBQ 06/18/20 18:00 09/16/20 17:59 07/12/20 17:28 Midazolam HCl 200 ml @ 0 mls/hr Q24H PRN IV SEDATION 07/11/20 00:00 07/18/20 00:00 07/12/20 17:28 Sodium Chloride 1,000 ml @ 50 mls/hr Q20H IV 06/26/20 08:00 07/26/20 07:59 07/12/20 23:59 Vitamin D (Vitamin D) 2,000 unit DAILY GT 06/29/20 10:30 07/29/20 10:29 07/13/20 09:08 Assessment/Plan Assessment/Plan 1. COVID-19 pneumonia -Intubated, on 100% FiO2. PEEP 5-10. -SaO2 73% -On Decadron, s/p remdesivir 2. Leukocytosis -Resolved 3. Elevated D-dimer -On Lovenox 40 subcu QD for DVT prophylaxis 4. Renal insufficiency -Improved 5. Anemia of chronic disease -Hematology oncology following 6. Sepsis -Status post antibiotics, fluid resuscitation 7. Pneumothorax 06/22/20 - b/l subcutaneous emphysema, pneumomediastinum, probable small left pneumothorax & ? trace right pneumothorax. -P[place] in place - placed CT by surgery (bilateral) - Will attempt wean when FiO2 decreases - CXR shows R PTX; will advise CT surgery to adjust R CT Discussed with son Now DNAR SaO2 87% on 100% FiO2 and PEEP 12 Grave prognosis Family not ready for withdrawl of care Discussed with son (jim) in great detail previously Discussed with son Kim) today 07/13/20; introduced terminal extubation; highly doubt chances or meaningful recovery Charlie Sewell MD Jul 13, 2020 10:16
[2020-07-13] MEDS: Versed 100mg/NS 200ml 200 ML IV PRN (10:18)
--- NOTE | 2020-07-13 10:45 | NUR ---
NURSE NOTES: Dr Clayton at bedside,updated re pt's status,plans of consulting [employer],but its the family who makes decision for the pt.
--- NOTE | 2020-07-13 10:46 | Infectious Diseases Prog Note ---
Assessment/Plan Assessment/Plan A; Sepsis COVID19 pneumonia Hypoxic & hypercapnic respiratory failure Acute kidney injury, resolving Hyperglycemia, DM type 2 Bilateral pneumothorax Leukocytosis resolved Anemia Hypotension P; Finished Remdesivir & Dexamethasone course Poor prognosis, DNR status Subjective ROS Limited/Unobtainable: Yes Allergies: Coded Allergies: No Known Allergies (Unverified , 06/17/20) Objective Last 24 Hour Vital Signs Date Time Temp Pulse Resp B/P (MAP) Pulse Ox O2 Delivery O2 Flow Rate FiO2 07/13/20 10:18 32 117/72 Mechanical Ventilator 100 07/13/20 10:04 88 32 123/70 (87) 70 07/13/20 10:00 32 123/79 Mechanical Ventilator 100 07/13/20 09:00 24 123/74 Mechanical Ventilator 100 07/13/20 09:00 24 123/74 Mechanical Ventilator 100 07/13/20 09:00 89 24 123/74 (90) 80 07/13/20 08:30 98.4 07/13/20 08:08 94 33 125/72 (89) 64 07/13/20 08:00 33 125/72 Mechanical Ventilator 64 07/13/20 08:00 33 125/72 Mechanical Ventilator 64 07/13/20 08:00 Mechanical Ventilator Mechanical Ventilator Mechanical Ventilator Mechanical Ventilator Mechanical Ventilator 07/13/20 08:00 100 07/13/20 08:00 94 07/13/20 07:11 96 35 100 07/13/20 07:00 94 34 137/75 (95) 64 07/13/20 07:00 20 123/82 Mechanical Ventilator 100 07/13/20 07:00 19 123/82 100 07/13/20 06:00 20 116/79 Mechanical Ventilator 100 07/13/20 06:00 20 116/79 Mechanical Ventilator 100 07/13/20 06:00 97 32 135/86 (102) 64 07/13/20 05:04 101 35 100 07/13/20 05:00 20 108/75 Mechanical Ventilator 100 07/13/20 05:00 19 108/75 Mechanical Ventilator 100 07/13/20 05:00 101 35 132/85 (101) 65 07/13/20 04:36 20 130/80 Mechanical Ventilator 100 07/13/20 04:36 20 130/80 Mechanical Ventilator 100 07/13/20 04:00 Mechanical Ventilator Mechanical Ventilator Mechanical Ventilator Mechanical Ventilator Mechanical Ventilator 07/13/20 04:00 85 07/13/20 04:00 98.1 106 34 134/82 (99) 67 07/13/20 04:00 20 118/77 Mechanical Ventilator 100 07/13/20 04:00 20 126/71 Mechanical Ventilator 100 07/13/20 04:00 100 07/13/20 03:30 110 29 112/73 (86) 78 07/13/20 03:09 109 30 100 07/13/20 03:00 108 24 135/82 (99) 79 07/13/20 03:00 20 115/84 Mechanical Ventilator 100 07/13/20 03:00 20 115/84 Mechanical Ventilator 100 07/13/20 02:00 20 125/73 Mechanical Ventilator 100 07/13/20 02:00 20 125/73 Mechanical Ventilator 100 07/13/20 02:00 115 37 125/80 (95) 68 07/13/20 01:30 115 37 100 07/13/20 01:00 113 34 108/68 (81) 81 07/13/20 01:00 20 130/80 Mechanical Ventilator 100 07/13/20 01:00 20 130/80 Mechanical Ventilator 100 07/13/20 00:00 88 07/13/20 00:00 18 103/67 Mechanical Ventilator 100 07/13/20 00:00 20 103/67 Mechanical Ventilator 100 07/13/20 00:00 Mechanical Ventilator Mechanical Ventilator Mechanical Ventilator Mechanical Ventilator Mechanical Ventilator 07/13/20 00:00 100 07/13/20 00:00 98.2 111 35 120/73 (89) 82 07/12/20 23:09 112 34 100 07/12/20 23:00 20 100/75 Endotracheal Tube 100 07/12/20 23:00 18 100/75 Mechanical Ventilator 100 07/12/20 23:00 110 35 98/64 (75) 86 07/12/20 22:00 106 31 99/68 (78) 87 07/12/20 22:00 20 110/60 Mechanical Ventilator 100 07/12/20 22:00 20 110/60 100 07/12/20 21:00 20 100/65 Mechanical Ventilator 100 07/12/20 21:00 20 100/65 Mechanical Ventilator 100 07/12/20 21:00 106 32 111/73 (86) 90 07/12/20 20:34 111 28 100 07/12/20 20:00 Mechanical Ventilator Mechanical Ventilator Mechanical Ventilator Mechanical Ventilator Mechanical Ventilator 07/12/20 20:00 98.6 116 30 103/63 (76) 90 07/12/20 20:00 100 07/12/20 20:00 20 105/73 Mechanical Ventilator 100 07/12/20 20:00 20 105/73 Mechanical Ventilator 100 07/12/20 20:00 79 07/12/20 19:30 110 32 100 07/12/20 19:00 113 31 99/60 (73) 88 07/12/20 19:00 31 99/60 Endotracheal Tube 100 07/12/20 19:00 31 99/60 Endotracheal Tube 100 07/12/20 18:00 31 107/72 Endotracheal Tube 100 07/12/20 18:00 31 107/72 Endotracheal Tube 100 07/12/20 18:00 106 31 107/72 (84) 91 07/12/20 17:28 29 112/73 Endotracheal Tube 100 07/12/20 17:00 30 120/82 Endotracheal Tube 100 07/12/20 17:00 30 120/82 Endotracheal Tube 100 07/12/20 17:00 106 30 120/82 (95) 90 07/12/20 16:00 32 123/83 Endotracheal Tube 100 07/12/20 16:00 32 123/83 Endotracheal Tube 100 07/12/20 16:00 Mechanical Ventilator Mechanical Ventilator Mechanical Ventilator Mechanical Ventilator Mechanical Ventilator 07/12/20 16:00 100 07/12/20 16:00 99.0 105 32 123/83 (96) 90 07/12/20 16:00 105 07/12/20 15:09 109 33 100 07/12/20 15:00 111 34 122/75 (91) 87 07/12/20 15:00 34 122/75 Endotracheal Tube 100 07/12/20 15:00 34 122/75 Endotracheal Tube 100 07/12/20 14:00 36 84/60 100 07/12/20 14:00 36 84/60 Endotracheal Tube 100 07/12/20 14:00 112 36 84/60 (68) 84 07/12/20 13:00 107 34 98/60 (73) 82 07/12/20 13:00 35 98/60 100 07/12/20 13:00 34 98/60 Endotracheal Tube 100 07/12/20 12:00 100 07/12/20 12:00 Mechanical Ventilator Mechanical Ventilator Mechanical Ventilator Mechanical Ventilator Mechanical Ventilator 07/12/20 12:00 34 97/55 Endotracheal Tube 100 07/12/20 12:00 34 106/68 Endotracheal Tube 100 07/12/20 12:00 98.1 107 34 106/68 (81) 82 07/12/20 12:00 107 07/12/20 11:00 107 21 134/78 (96) 90 07/12/20 11:00 21 134/78 Endotracheal Tube 100 07/12/20 11:00 34 126/75 Endotracheal Tube 100 07/12/20 10:56 111 36 100 Height (Feet): 5 Height (Inches): 2.00 Weight (Pounds): 138 HEENT: other - orally intubated Respiratory/Chest: other - on ventilator, EGX2=180%, bilateral chest tubes Cardiovascular: normal rate, other - PICC line Abdomen: other - tube feeding Neurologic/Psychiatric: other - sedated Laboratory Tests Test 07/13/20 05:38 White Blood Count 7.6 K/UL (4.8-10.8) Red Blood Count 3.14 M/UL (4.20-5.40) L Hemoglobin 9.5 G/DL (12.0-16.0) L Hematocrit 31.3 % (37.0-47.0) L Mean Corpuscular Volume 100 FL (80-99) H Mean Corpuscular Hemoglobin 30.2 PG (27.0-31.0) Mean Corpuscular Hemoglobin Concent 30.3 G/DL (32.0-36.0) L Red Cell Distribution Width 18.3 % (11.6-14.8) H Platelet Count 330 K/UL (150-450) Mean Platelet Volume 8.8 FL (6.5-10.1) Neutrophils (%) (Auto) 79.9 % (45.0-75.0) H Lymphocytes (%) (Auto) 13.4 % (20.0-45.0) L Monocytes (%) (Auto) 4.1 % (1.0-10.0) Eosinophils (%) (Auto) 1.7 % (0.0-3.0) Basophils (%) (Auto) 0.9 % (0.0-2.0) Current Medications Medications (Trade) Dose Ordered Sig/Maya Route PRN Reason Start Time Stop Time Status Last Admin Dose Admin Acetaminophen (Tylenol) 500 mg Q4H PRN ORAL Mild Pain (Pain Scale 1-3) 06/18/20 00:15 07/18/20 00:14 06/24/20 17:51 Acetaminophen (Tylenol) 500 mg Q4H PRN ORAL Temp >100.5 06/18/20 00:15 07/18/20 00:14 06/29/20 20:01 Chlorhexidine Gluconate (Sissy-Hex 2%) 1 applic DAILY@2000 TOPIC 06/28/20 20:00 09/26/20 19:59 07/12/20 21:21 Dextrose (Dextrose 50%) 25 ml Q30M PRN IV Hypoglycemia 06/18/20 14:15 09/16/20 14:14 Dextrose (Dextrose 50%) 50 ml Q30M PRN IV Hypoglycemia 06/18/20 14:15 09/16/20 14:14 Docusate Sodium (Colace) 100 mg EVERY 8 HOURS NG 07/02/20 14:00 07/28/20 12:59 07/13/20 05:26 Enoxaparin Sodium (Lovenox) 40 mg DAILY SUBQ 07/12/20 09:00 10/10/20 08:59 07/13/20 09:08 Famotidine (Pepcid I.v.) 20 mg BID IVP 07/10/20 09:00 08/09/20 08:59 07/13/20 09:08 Fentanyl Citrate 1000 mcg/Sodium Chloride 120 ml @ 0 mls/hr Q24H PRN IV SEDATION 07/12/20 09:30 07/19/20 09:29 07/13/20 04:36 Haloperidol Lactate (Haldol) 10 mg Q6H PRN IM Agitation 06/23/20 11:30 08/07/20 11:29 06/23/20 11:34 Insulin Aspart (NovoLOG) while NPO Q6HR SUBQ 06/18/20 18:00 09/16/20 17:59 07/12/20 17:28 Midazolam HCl 200 ml @ 0 mls/hr Q24H PRN IV SEDATION 07/11/20 00:00 07/18/20 00:00 07/13/20 10:18 Sodium Chloride 1,000 ml @ 50 mls/hr Q20H IV 06/26/20 08:00 07/26/20 07:59 07/12/20 23:59 Vitamin D (Vitamin D) 2,000 unit DAILY GT 06/29/20 10:30 07/29/20 10:29 07/13/20 09:08 Raji Turpin MD Jul 13, 2020 10:46
--- NOTE | 2020-07-13 11:20 | NUR ---
NURSE NOTES: Pt's family members ,the 2 sons Car and Ethan came to clarify issues about their mothers health status.discussed with the RN and the charge nurse Clementina perkins of the pt at this time.
--- NOTE | 2020-07-13 11:27 | Surgery Progress Note ---
Surgery Progress Note Subjective Procedure Performed 1. right chest tube insertion 2. left chest tube insertion Additional Comments Patient continues to decline. Discussed with critical care pulmonology who have discussed with the family potential considerations for terminal extubation. Patient has not made any improvement vent settings worsening lungs worsening chest tubes functional recurrent pneumothoraxes Objective Last 24 Hour Vital Signs Date Time Temp Pulse Resp B/P (MAP) Pulse Ox O2 Delivery O2 Flow Rate FiO2 07/13/20 10:18 32 117/72 Mechanical Ventilator 100 07/13/20 10:04 88 32 123/70 (87) 70 07/13/20 10:00 32 123/79 Mechanical Ventilator 100 07/13/20 09:00 24 123/74 Mechanical Ventilator 100 07/13/20 09:00 24 123/74 Mechanical Ventilator 100 07/13/20 09:00 89 24 123/74 (90) 80 07/13/20 08:30 98.4 07/13/20 08:08 94 33 125/72 (89) 64 07/13/20 08:00 33 125/72 Mechanical Ventilator 64 07/13/20 08:00 33 125/72 Mechanical Ventilator 64 07/13/20 08:00 Mechanical Ventilator Mechanical Ventilator Mechanical Ventilator Mechanical Ventilator Mechanical Ventilator 07/13/20 08:00 100 07/13/20 08:00 94 07/13/20 07:11 96 35 100 07/13/20 07:00 94 34 137/75 (95) 64 07/13/20 07:00 20 123/82 Mechanical Ventilator 100 07/13/20 07:00 19 123/82 100 07/13/20 06:00 20 116/79 Mechanical Ventilator 100 07/13/20 06:00 20 116/79 Mechanical Ventilator 100 07/13/20 06:00 97 32 135/86 (102) 64 07/13/20 05:04 101 35 100 07/13/20 05:00 20 108/75 Mechanical Ventilator 100 07/13/20 05:00 19 108/75 Mechanical Ventilator 100 07/13/20 05:00 101 35 132/85 (101) 65 07/13/20 04:36 20 130/80 Mechanical Ventilator 100 07/13/20 04:36 20 130/80 Mechanical Ventilator 100 07/13/20 04:00 Mechanical Ventilator Mechanical Ventilator Mechanical Ventilator Mechanical Ventilator Mechanical Ventilator 07/13/20 04:00 85 07/13/20 04:00 98.1 106 34 134/82 (99) 67 07/13/20 04:00 20 118/77 Mechanical Ventilator 100 07/13/20 04:00 20 126/71 Mechanical Ventilator 100 07/13/20 04:00 100 07/13/20 03:30 110 29 112/73 (86) 78 07/13/20 03:09 109 30 100 07/13/20 03:00 108 24 135/82 (99) 79 07/13/20 03:00 20 115/84 Mechanical Ventilator 100 07/13/20 03:00 20 115/84 Mechanical Ventilator 100 07/13/20 02:00 20 125/73 Mechanical Ventilator 100 07/13/20 02:00 20 125/73 Mechanical Ventilator 100 07/13/20 02:00 115 37 125/80 (95) 68 07/13/20 01:30 115 37 100 07/13/20 01:00 113 34 108/68 (81) 81 07/13/20 01:00 20 130/80 Mechanical Ventilator 100 07/13/20 01:00 20 130/80 Mechanical Ventilator 100 07/13/20 00:00 88 07/13/20 00:00 18 103/67 Mechanical Ventilator 100 07/13/20 00:00 20 103/67 Mechanical Ventilator 100 07/13/20 00:00 Mechanical Ventilator Mechanical Ventilator Mechanical Ventilator Mechanical Ventilator Mechanical Ventilator 07/13/20 00:00 100 07/13/20 00:00 98.2 111 35 120/73 (89) 82 07/12/20 23:09 112 34 100 07/12/20 23:00 20 100/75 Endotracheal Tube 100 07/12/20 23:00 18 100/75 Mechanical Ventilator 100 07/12/20 23:00 110 35 98/64 (75) 86 07/12/20 22:00 106 31 99/68 (78) 87 07/12/20 22:00 20 110/60 Mechanical Ventilator 100 07/12/20 22:00 20 110/60 100 07/12/20 21:00 20 100/65 Mechanical Ventilator 100 07/12/20 21:00 20 100/65 Mechanical Ventilator 100 07/12/20 21:00 106 32 111/73 (86) 90 07/12/20 20:34 111 28 100 07/12/20 20:00 Mechanical Ventilator Mechanical Ventilator Mechanical Ventilator Mechanical Ventilator Mechanical Ventilator 07/12/20 20:00 98.6 116 30 103/63 (76) 90 07/12/20 20:00 100 07/12/20 20:00 20 105/73 Mechanical Ventilator 100 07/12/20 20:00 20 105/73 Mechanical Ventilator 100 07/12/20 20:00 79 07/12/20 19:30 110 32 100 07/12/20 19:00 113 31 99/60 (73) 88 07/12/20 19:00 31 99/60 Endotracheal Tube 100 07/12/20 19:00 31 99/60 Endotracheal Tube 100 07/12/20 18:00 31 107/72 Endotracheal Tube 100 07/12/20 18:00 31 107/72 Endotracheal Tube 100 07/12/20 18:00 106 31 107/72 (84) 91 07/12/20 17:28 29 112/73 Endotracheal Tube 100 07/12/20 17:00 30 120/82 Endotracheal Tube 100 07/12/20 17:00 30 120/82 Endotracheal Tube 100 07/12/20 17:00 106 30 120/82 (95) 90 07/12/20 16:00 32 123/83 Endotracheal Tube 100 07/12/20 16:00 32 123/83 Endotracheal Tube 100 07/12/20 16:00 Mechanical Ventilator Mechanical Ventilator Mechanical Ventilator Mechanical Ventilator Mechanical Ventilator 07/12/20 16:00 100 07/12/20 16:00 99.0 105 32 123/83 (96) 90 07/12/20 16:00 105 07/12/20 15:09 109 33 100 07/12/20 15:00 111 34 122/75 (91) 87 07/12/20 15:00 34 122/75 Endotracheal Tube 100 07/12/20 15:00 34 122/75 Endotracheal Tube 100 07/12/20 14:00 36 84/60 100 07/12/20 14:00 36 84/60 Endotracheal Tube 100 07/12/20 14:00 112 36 84/60 (68) 84 07/12/20 13:00 107 34 98/60 (73) 82 07/12/20 13:00 35 98/60 100 07/12/20 13:00 34 98/60 Endotracheal Tube 100 07/12/20 12:00 100 07/12/20 12:00 Mechanical Ventilator Mechanical Ventilator Mechanical Ventilator Mechanical Ventilator Mechanical Ventilator 07/12/20 12:00 34 97/55 Endotracheal Tube 100 07/12/20 12:00 34 106/68 Endotracheal Tube 100 07/12/20 12:00 98.1 107 34 106/68 (81) 82 07/12/20 12:00 107 I&O Intake and Output 07/12/20 07/13/20 19:00 07:00 Intake Total 1586.2 ml 1436.08 ml Output Total 195 ml 180 ml Balance 1391.2 ml 1256.08 ml Intake Free Water 100 ml IV Total 826.2 ml 776.08 ml Tube Feeding 660 ml 660 ml Output Urine Total 135 ml 180 ml Chest Tube Drainage Total 60 ml Dressing: saturated Cardiovascular: RSR Respiratory: decreased breath sounds Abdomen: soft, non-tender, present bowel sounds Extremities: edema, no cyanosis Laboratory Tests Test 07/13/20 05:38 White Blood Count 7.6 K/UL (4.8-10.8) Red Blood Count 3.14 M/UL (4.20-5.40) L Hemoglobin 9.5 G/DL (12.0-16.0) L Hematocrit 31.3 % (37.0-47.0) L Mean Corpuscular Volume 100 FL (80-99) H Mean Corpuscular Hemoglobin 30.2 PG (27.0-31.0) Mean Corpuscular Hemoglobin Concent 30.3 G/DL (32.0-36.0) L Red Cell Distribution Width 18.3 % (11.6-14.8) H Platelet Count 330 K/UL (150-450) Mean Platelet Volume 8.8 FL (6.5-10.1) Neutrophils (%) (Auto) 79.9 % (45.0-75.0) H Lymphocytes (%) (Auto) 13.4 % (20.0-45.0) L Monocytes (%) (Auto) 4.1 % (1.0-10.0) Eosinophils (%) (Auto) 1.7 % (0.0-3.0) Basophils (%) (Auto) 0.9 % (0.0-2.0) Plan Problems: (1) Renal insufficiency (2) Elevated d-dimer (3) Dehydration (4) LEONARDO (acute kidney injury) (5) DMII (diabetes mellitus, type 2) (6) Hypoxia (7) Pneumonia due to COVID-19 virus (8) PNA (pneumonia) (9) Pneumothorax Assessment & Plan: Bilateral pneumothorax status post bilateral chest tubes. Still on significant vent support. leak performed. Continue weaning vent. Continue with chest tubes. Will monitor and manage chest tubes accordingly. Thank you for let me to participate in patient's care Continue bilateral chest tubes on suction the airleak is worse her peak pressures are high prognosis overall is guarded. Imaging reviewed Bilateral air leaks noted high pressures continue chest tube suction recurrent right ptx tube fixed imaging pleuravac fixed tubes functional Unfortunately patient continues to be very ill on vent support with bilateral chest tubes in place. She continues to reaccumulate pneumothorax as this type functional tubes. Occasionally tubes or Pleur-evac needs to be changed and immediately shows improvement but then again declines. Prognosis is very guarded. We will continue to follow thank you for let me participate in patient's care Elpidio Frazier Jul 13, 2020 11:27
--- NOTE | 2020-07-13 13:00 | NUR ---
NURSE NOTES: Pt stable noted no resp distress,oral care done,oral/ETT secretions suctioned PRN.
--- NOTE | 2020-07-13 13:41 | Diagnostic Imaging Report ---
Indication: Shortness of breath, pneumothorax Technique: XRAY Chest 1v Comparison: 06/23/2020 Findings: Extensive bilateral infiltrates are again seen. Endotracheal tube, enteric tube, right arm PICC line and bilateral chest tubes remain in place, positioning not significantly changed compared to the prior exam. Small residual right pneumothorax, slightly decreased compared to prior exam. Heart size and osseous structures are grossly stable. IMPRESSION: Persistent small right pneumothorax despite indwelling chest tube. Size of the pneumothorax is slightly decreased compared to the prior exam. Extensive bilateral infiltrates, not significantly changed.
[2020-07-13] MEDS ORDERED: NS 275ml ONE (14:03)
[2020-07-13] MEDS ORDERED: Sterile Water Irrig 1000ml IRRIG ONE (14:03)
--- NOTE | 2020-07-13 14:09 | Cardiac Electrophysiology PN ---
Assessment/Plan Assessment/Plan 1. Respiratory failure due to COVID pneumonia. Intubated on 100% Fio2. PEEP 12 Echo showed Nl EF 2. Bilateral pneumothoraces. S/P bilateral chest tube placement with minimal drainage but large air leak CXR today was performed. 3. Troponin elevation. Levels are low and flat could be demand ischemia vs Renal failure EKG shows sinus tachycardia at 110 beats per minute. 4. Hypernatremia with sodium of 155. Resolved 5. Hypotension. Off Levophed now. Off Coreg and Lasix 6. DNR DW RN and Dr Amaro Subjective Subjective Intubated in ICU on Fentanyl and Versed drip. Chest tubes have no drainage On 100% Fio2, PEEP 10.Off Levophed DNR Objective Last 24 Hour Vital Signs Date Time Temp Pulse Resp B/P (MAP) Pulse Ox O2 Delivery O2 Flow Rate FiO2 07/13/20 13:00 77 33 126/81 (96) 90 07/13/20 12:00 95.9 78 32 129/71 (90) 74 07/13/20 12:00 79 07/13/20 12:00 Mechanical Ventilator Mechanical Ventilator Mechanical Ventilator Mechanical Ventilator Mechanical Ventilator 07/13/20 12:00 100 07/13/20 11:03 76 24 100 07/13/20 11:00 35 120/84 Mechanical Ventilator 100 07/13/20 11:00 35 120/80 Mechanical Ventilator 35 07/13/20 11:00 84 35 120/80 (93) 66 07/13/20 10:18 32 117/72 Mechanical Ventilator 100 07/13/20 10:04 88 32 123/70 (87) 70 07/13/20 10:00 32 123/79 Mechanical Ventilator 100 07/13/20 09:00 24 123/74 Mechanical Ventilator 100 07/13/20 09:00 24 123/74 Mechanical Ventilator 100 07/13/20 09:00 89 24 123/74 (90) 80 07/13/20 08:30 98.4 07/13/20 08:08 94 33 125/72 (89) 64 07/13/20 08:00 33 125/72 Mechanical Ventilator 64 07/13/20 08:00 33 125/72 Mechanical Ventilator 64 07/13/20 08:00 Mechanical Ventilator Mechanical Ventilator Mechanical Ventilator Mechanical Ventilator Mechanical Ventilator 07/13/20 08:00 100 07/13/20 08:00 94 07/13/20 07:11 96 35 100 07/13/20 07:00 94 34 137/75 (95) 64 07/13/20 07:00 20 123/82 Mechanical Ventilator 100 07/13/20 07:00 19 123/82 100 07/13/20 06:00 20 116/79 Mechanical Ventilator 100 07/13/20 06:00 20 116/79 Mechanical Ventilator 100 07/13/20 06:00 97 32 135/86 (102) 64 07/13/20 05:04 101 35 100 07/13/20 05:00 20 108/75 Mechanical Ventilator 100 07/13/20 05:00 19 108/75 Mechanical Ventilator 100 07/13/20 05:00 101 35 132/85 (101) 65 07/13/20 04:36 20 130/80 Mechanical Ventilator 100 07/13/20 04:36 20 130/80 Mechanical Ventilator 100 07/13/20 04:00 Mechanical Ventilator Mechanical Ventilator Mechanical Ventilator Mechanical Ventilator Mechanical Ventilator 07/13/20 04:00 85 07/13/20 04:00 98.1 106 34 134/82 (99) 67 07/13/20 04:00 20 118/77 Mechanical Ventilator 100 07/13/20 04:00 20 126/71 Mechanical Ventilator 100 07/13/20 04:00 100 07/13/20 03:30 110 29 112/73 (86) 78 07/13/20 03:09 109 30 100 07/13/20 03:00 108 24 135/82 (99) 79 07/13/20 03:00 20 115/84 Mechanical Ventilator 100 07/13/20 03:00 20 115/84 Mechanical Ventilator 100 07/13/20 02:00 20 125/73 Mechanical Ventilator 100 07/13/20 02:00 20 125/73 Mechanical Ventilator 100 07/13/20 02:00 115 37 125/80 (95) 68 07/13/20 01:30 115 37 100 07/13/20 01:00 113 34 108/68 (81) 81 07/13/20 01:00 20 130/80 Mechanical Ventilator 100 07/13/20 01:00 20 130/80 Mechanical Ventilator 100 07/13/20 00:00 88 07/13/20 00:00 18 103/67 Mechanical Ventilator 100 07/13/20 00:00 20 103/67 Mechanical Ventilator 100 07/13/20 00:00 Mechanical Ventilator Mechanical Ventilator Mechanical Ventilator Mechanical Ventilator Mechanical Ventilator 07/13/20 00:00 100 07/13/20 00:00 98.2 111 35 120/73 (89) 82 07/12/20 23:09 112 34 100 07/12/20 23:00 20 100/75 Endotracheal Tube 100 07/12/20 23:00 18 100/75 Mechanical Ventilator 100 07/12/20 23:00 110 35 98/64 (75) 86 07/12/20 22:00 106 31 99/68 (78) 87 07/12/20 22:00 20 110/60 Mechanical Ventilator 100 07/12/20 22:00 20 110/60 100 07/12/20 21:00 20 100/65 Mechanical Ventilator 100 07/12/20 21:00 20 100/65 Mechanical Ventilator 100 07/12/20 21:00 106 32 111/73 (86) 90 07/12/20 20:34 111 28 100 07/12/20 20:00 Mechanical Ventilator Mechanical Ventilator Mechanical Ventilator Mechanical Ventilator Mechanical Ventilator 07/12/20 20:00 98.6 116 30 103/63 (76) 90 07/12/20 20:00 100 07/12/20 20:00 20 105/73 Mechanical Ventilator 100 07/12/20 20:00 20 105/73 Mechanical Ventilator 100 07/12/20 20:00 79 07/12/20 19:30 110 32 100 07/12/20 19:00 113 31 99/60 (73) 88 07/12/20 19:00 31 99/60 Endotracheal Tube 100 07/12/20 19:00 31 99/60 Endotracheal Tube 100 07/12/20 18:00 31 107/72 Endotracheal Tube 100 07/12/20 18:00 31 107/72 Endotracheal Tube 100 07/12/20 18:00 106 31 107/72 (84) 91 07/12/20 17:28 29 112/73 Endotracheal Tube 100 07/12/20 17:00 30 120/82 Endotracheal Tube 100 07/12/20 17:00 30 120/82 Endotracheal Tube 100 07/12/20 17:00 106 30 120/82 (95) 90 07/12/20 16:00 32 123/83 Endotracheal Tube 100 07/12/20 16:00 32 123/83 Endotracheal Tube 100 07/12/20 16:00 Mechanical Ventilator Mechanical Ventilator Mechanical Ventilator Mechanical Ventilator Mechanical Ventilator 07/12/20 16:00 100 07/12/20 16:00 99.0 105 32 123/83 (96) 90 07/12/20 16:00 105 07/12/20 15:09 109 33 100 07/12/20 15:00 111 34 122/75 (91) 87 07/12/20 15:00 34 122/75 Endotracheal Tube 100 07/12/20 15:00 34 122/75 Endotracheal Tube 100 Intake and Output 07/12/20 07/13/20 19:00 07:00 Intake Total 1586.2 ml 1436.08 ml Output Total 195 ml 180 ml Balance 1391.2 ml 1256.08 ml Intake Free Water 100 ml IV Total 826.2 ml 776.08 ml Tube Feeding 660 ml 660 ml Output Urine Total 135 ml 180 ml Chest Tube Drainage Total 60 ml Laboratory Tests Test 07/13/20 05:38 White Blood Count 7.6 K/UL (4.8-10.8) Red Blood Count 3.14 M/UL (4.20-5.40) L Hemoglobin 9.5 G/DL (12.0-16.0) L Hematocrit 31.3 % (37.0-47.0) L Mean Corpuscular Volume 100 FL (80-99) H Mean Corpuscular Hemoglobin 30.2 PG (27.0-31.0) Mean Corpuscular Hemoglobin Concent 30.3 G/DL (32.0-36.0) L Red Cell Distribution Width 18.3 % (11.6-14.8) H Platelet Count 330 K/UL (150-450) Mean Platelet Volume 8.8 FL (6.5-10.1) Neutrophils (%) (Auto) 79.9 % (45.0-75.0) H Lymphocytes (%) (Auto) 13.4 % (20.0-45.0) L Monocytes (%) (Auto) 4.1 % (1.0-10.0) Eosinophils (%) (Auto) 1.7 % (0.0-3.0) Basophils (%) (Auto) 0.9 % (0.0-2.0) Objective HEAD AND NECK: No JVD. Orally intubated LUNGS: Coarse rhonchi bilaterally. Bilateral chest tubes in. CARDIOVASCULAR: Regular S1 and S2 and no murmur ABDOMEN: Soft. EXTREMITIES: No pitting edema. Maxwell Carreon MD Jul 13, 2020 14:09
--- NOTE | 2020-07-13 14:27 | NUR ---
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 95.9 HR 79 RR 35 B/P 129/71 AC 20 TV 400 FIO2 100% PEEP 12 CXR-Persistent small right pneumothorax despite indwelling chest tube. Size of the pneumothorax is slightly decreased compared to the prior exam. IS: FENTANYL GTT VERSED GTT IVF NS @ 50ML/HR ICU STATUS
--- NOTE | 2020-07-13 15:58 | NUR ---
[facility]: [phone] F: [phone]
--- NOTE | 2020-07-13 17:00 | NUR ---
NURSE NOTES: Bed bath given ,pt with small amount of brown formed stools,kept dry and clean pulled up repositioned .
--- NOTE | 2020-07-13 19:30 | NUR ---
Received report from NORMAN Dee and assumed care of patient.
--- NOTE | 2020-07-13 19:30 | NUR ---
NURSE HAND-OFF REPORT: Latest Vital Signs: Temperature 95.9 , Pulse 62 , B/P 101 /62 , Respiratory Rate 20 , O2 SAT 91 , Mechanical Ventilator, O2 Flow Rate . Vital Sign Comment: stable EKG Rhythm: Sinus Rhythm Rhythm change?: N MD Notified?:N MD Response: No New Orders Received Latest Carney Fall Score: 50 Fall Risk: High Risk Safety Measures: Call light Within Reach, Bed Alarm Zone 2, Side Rails Side Rails x3, Bed position Low and Locked. Fall Precautions: Yellow Socks Door Sign Patient Fall Education Report given to Coral Roach RN..
--- NOTE | 2020-07-13 20:30 | NUR ---
: Assessment completed on patient. Patient noted to have a large amount of chest tube drainage on the left side of the bed. Patient felt very cold to touch. This RN took axillary temperature and it revealed 88.9F. When temperature read this low, took temperature orally which revealed 89.0F. Turned on heating/cooling blanket to see what rectal temperature was as the machine was shut off. Temperature read 88.9F. Turned patient, assured rectal thermometer in place, which it was, verifying temperature was in fact 88.9F. Patient also has ectopy on monitor. PVC's/PAC's and short pause noted. senior sales engineer, Fidelia and another ICU nurse in room with this RN to change linen and take down chest tube dressing to assess the site. Large blood clots noted in top of chest tube that were unable to be milked down the tube to allow drainage. The small connector inside the chest tube was preventing the drainage. senior sales engineer and this RN attempted to remove this connection piece to allow drainage but were unsuccessful using hemostats. One clot was able to pass allowing for small amounts of drainage to pass through. Chest tube area re-dressed. Warming blanket placed on patient also during this time period and will watch the patients temperature very closely as to not warm too fast. Dr. Collazo called and told about chest tubes and temperature of patient. Chest tubes ok, CXR in AM, he will try to remove clots tomorrow upon assessment of patient if needed. Dr. Clayton called for patient temperature. Dr. Clayton called back at 2207 and requested that AMY BOOTHE be called for temperature of patient and that Dr. Leigh called for arrythmias. Addendum: 07/14/20 at 0120 by ROX LUQUE RN TF was placed on hold due to extreme temperatures and absent bowel sounds.
[2020-07-13] MEDS: Dyna-Hex 2% Top Sol 2oz TOPIC SCH (20:42)
--- NOTE | 2020-07-13 21:32 | General Progress Note ---
Subjective ROS Limited/Unobtainable: Yes Allergies: Coded Allergies: No Known Allergies (Unverified , 06/17/20) Objective Last 24 Hour Vital Signs Date Time Temp Pulse Resp B/P (MAP) Pulse Ox O2 Delivery O2 Flow Rate FiO2 07/13/20 19:15 62 20 101/62 (75) 91 07/13/20 19:05 66 31 100 07/13/20 19:00 18 90/50 Mechanical Ventilator 100 07/13/20 19:00 18 90/58 Mechanical Ventilator 100 07/13/20 18:15 67 22 103/59 (74) 88 07/13/20 18:00 21 104/63 Mechanical Ventilator 100 07/13/20 18:00 21 104/63 Mechanical Ventilator 100.0 07/13/20 17:00 32 137/80 Mechanical Ventilator 100 07/13/20 17:00 21 137/80 Mechanical Ventilator 100 07/13/20 17:00 67 32 137/80 (99) 88 07/13/20 16:00 61 21 121/76 (91) 91 07/13/20 16:00 Mechanical Ventilator Mechanical Ventilator Mechanical Ventilator Mechanical Ventilator Mechanical Ventilator 07/13/20 16:00 65 07/13/20 16:00 100 07/13/20 16:00 21 121/76 Mechanical Ventilator 100 07/13/20 16:00 21 121/76 Mechanical Ventilator 100 07/13/20 15:09 90 29 100 07/13/20 15:00 32 101/68 Mechanical Ventilator 100 07/13/20 15:00 32 101/68 Mechanical Ventilator 100 07/13/20 15:00 67 27 93/68 (76) 88 07/13/20 14:08 70 27 100/67 (78) 84 07/13/20 14:00 27 100/67 Mechanical Ventilator 100 07/13/20 14:00 27 100/67 Mechanical Ventilator 100 07/13/20 13:00 77 33 126/81 (96) 90 07/13/20 13:00 27 126/81 Mechanical Ventilator 84 07/13/20 13:00 33 126/81 Mechanical Ventilator 100 07/13/20 12:00 95.9 78 32 129/71 (90) 74 07/13/20 12:00 79 07/13/20 12:00 33 129/71 Mechanical Ventilator 100 07/13/20 12:00 32 129/71 Mechanical Ventilator 100 07/13/20 12:00 Mechanical Ventilator Mechanical Ventilator Mechanical Ventilator Mechanical Ventilator Mechanical Ventilator 07/13/20 12:00 100 07/13/20 11:03 76 24 100 07/13/20 11:00 35 120/84 Mechanical Ventilator 100 07/13/20 11:00 35 120/80 Mechanical Ventilator 35 07/13/20 11:00 84 35 120/80 (93) 66 07/13/20 10:18 32 117/72 Mechanical Ventilator 100 07/13/20 10:04 88 32 123/70 (87) 70 07/13/20 10:00 32 123/79 Mechanical Ventilator 100 07/13/20 09:00 24 123/74 Mechanical Ventilator 100 07/13/20 09:00 24 123/74 Mechanical Ventilator 100 07/13/20 09:00 89 24 123/74 (90) 80 07/13/20 08:30 98.4 07/13/20 08:08 94 33 125/72 (89) 64 07/13/20 08:00 33 125/72 Mechanical Ventilator 64 07/13/20 08:00 33 125/72 Mechanical Ventilator 64 07/13/20 08:00 Mechanical Ventilator Mechanical Ventilator Mechanical Ventilator Mechanical Ventilator Mechanical Ventilator 07/13/20 08:00 100 07/13/20 08:00 94 07/13/20 07:11 96 35 100 07/13/20 07:00 94 34 137/75 (95) 64 07/13/20 07:00 20 123/82 Mechanical Ventilator 100 07/13/20 07:00 19 123/82 100 07/13/20 06:00 20 116/79 Mechanical Ventilator 100 07/13/20 06:00 20 116/79 Mechanical Ventilator 100 07/13/20 06:00 97 32 135/86 (102) 64 07/13/20 05:04 101 35 100 07/13/20 05:00 20 108/75 Mechanical Ventilator 100 07/13/20 05:00 19 108/75 Mechanical Ventilator 100 07/13/20 05:00 101 35 132/85 (101) 65 07/13/20 04:36 20 130/80 Mechanical Ventilator 100 07/13/20 04:36 20 130/80 Mechanical Ventilator 100 07/13/20 04:00 Mechanical Ventilator Mechanical Ventilator Mechanical Ventilator Mechanical Ventilator Mechanical Ventilator 07/13/20 04:00 85 07/13/20 04:00 98.1 106 34 134/82 (99) 67 07/13/20 04:00 20 118/77 Mechanical Ventilator 100 07/13/20 04:00 20 126/71 Mechanical Ventilator 100 07/13/20 04:00 100 07/13/20 03:30 110 29 112/73 (86) 78 07/13/20 03:09 109 30 100 07/13/20 03:00 108 24 135/82 (99) 79 07/13/20 03:00 20 115/84 Mechanical Ventilator 100 07/13/20 03:00 20 115/84 Mechanical Ventilator 100 07/13/20 02:00 20 125/73 Mechanical Ventilator 100 07/13/20 02:00 20 125/73 Mechanical Ventilator 100 07/13/20 02:00 115 37 125/80 (95) 68 07/13/20 01:30 115 37 100 07/13/20 01:00 113 34 108/68 (81) 81 07/13/20 01:00 20 130/80 Mechanical Ventilator 100 07/13/20 01:00 20 130/80 Mechanical Ventilator 100 07/13/20 00:00 88 07/13/20 00:00 18 103/67 Mechanical Ventilator 100 07/13/20 00:00 20 103/67 Mechanical Ventilator 100 07/13/20 00:00 Mechanical Ventilator Mechanical Ventilator Mechanical Ventilator Mechanical Ventilator Mechanical Ventilator 07/13/20 00:00 100 07/13/20 00:00 98.2 111 35 120/73 (89) 82 07/12/20 23:09 112 34 100 07/12/20 23:00 20 100/75 Endotracheal Tube 100 07/12/20 23:00 18 100/75 Mechanical Ventilator 100 07/12/20 23:00 110 35 98/64 (75) 86 07/12/20 22:00 106 31 99/68 (78) 87 07/12/20 22:00 20 110/60 Mechanical Ventilator 100 07/12/20 22:00 20 110/60 100 Intake and Output 07/12/20 07/13/20 19:00 07:00 Intake Total 1586.2 ml 1436.08 ml Output Total 195 ml 180 ml Balance 1391.2 ml 1256.08 ml Intake Free Water 100 ml IV Total 826.2 ml 776.08 ml Tube Feeding 660 ml 660 ml Output Urine Total 135 ml 180 ml Chest Tube Drainage Total 60 ml Laboratory Tests 07/13/20 05:38: White Blood Count 7.6, Red Blood Count 3.14L, Hemoglobin 9.5L, Hematocrit 31.3L, Mean Corpuscular Volume 100H, Mean Corpuscular Hemoglobin 30.2, Mean Corpuscular Hemoglobin Concent 30.3L, Red Cell Distribution Width 18.3H, Platelet Count 330, Mean Platelet Volume 8.8, Neutrophils (%) (Auto) 79.9H, Lymphocytes (%) (Auto) 13.4L, Monocytes (%) (Auto) 4.1, Eosinophils (%) (Auto) 1.7, Basophils (%) (Auto) 0.9 Height (Feet): 5 Height (Inches): 2.00 Weight (Pounds): 138 General Appearance: lethargic Assessment/Plan Problem List: (1) Elevated d-dimer ICD Codes: R79.89 - Other specified abnormal findings of blood chemistry SNOMED: 782859900 (2) Renal insufficiency ICD Codes: N28.9 - Disorder of kidney and ureter, unspecified SNOMED: 449874053, 104230741 (3) PNA (pneumonia) ICD Codes: J18.9 - Pneumonia, unspecified organism SNOMED: 618532880 (4) Dehydration ICD Codes: E86.0 - Dehydration SNOMED: 66937502 (5) LEONARDO (acute kidney injury) ICD Codes: N17.9 - Acute kidney failure, unspecified SNOMED: 2942482, 06412303 (6) Hypoxia ICD Codes: R09.02 - Hypoxemia; J12.82 - Pneumonia due to coronavirus disease 2019 SNOMED: 720853901 (7) Pneumonia due to COVID-19 virus ICD Codes: U07.1 - COVID-19; J12.82 - Pneumonia due to coronavirus disease 2019 SNOMED: 992435981632805334 (8) DMII (diabetes mellitus, type 2) ICD Codes: E11.9 - Type 2 diabetes mellitus without complications SNOMED: 38576563 Status: progressing, unchanged Assessment/Plan: covid + malnutrition azotemia dm not improving comatose septic shoc intubated very poor prognosis bilat chest tube recurrent Vidya Clayton MD Jul 13, 2020 21:32
--- NOTE | 2020-07-13 22:07 | NUR ---
NURSE NOTES: MD Clayton Called at this time. He is aware of temp 89. Orders are to call MD Roman and inform him of temp and MD Carreon about changed of cardiac rhythm.
--- NOTE | 2020-07-13 22:12 | NUR ---
Spoke with Dr. Turpin, ID, regarding temperature and milky looking urine. UA reflex culture ordered/sent. Ceftriaxone 1gm Once daily ordered verbally by Dr. Turpin to this RN. Order placed to begin tonight. Notified of low temperature of 88.9 and after warming blanket currently at 89.2. Per MD warm slowly, speak with Velma about arrhythmias/bradycardia. Will continue to monitor the patient.
[2020-07-13 22:50] LABS: APPEARANCE,URINE TURBID; BILIRUBIN, URINE NEGATIVE (NEGATIVE); COLOR,URINE ORANGE; GLUCOSE, URINE (UA) NEGATIVE (NEGATIVE); KETONES,URINE 1+ (NEGATIVE); NITRITE,URINE POSITIVE (NEGATIVE); PROTEIN,URINE 2+ (NEGATIVE); UROBILINOGEN,URINE 8 MG/DL (0.0-1.0)
[2020-07-13 22:51] LABS: LEUKOCYTE ESTERASE ,URINE 1+ (NEGATIVE)
--- NOTE | 2020-07-13 22:53 | NUR ---
NURSE NOTES: Spoke with MD Carreon at this time. Informed him patient was received during change of shift with temp 88 F. She is on warming measures with moments of bradycardia and is now hypotensive 77/49. Informed him about 12 lead done. Orders is to restart Levophed at this time. Orders read back and confirmed by .
[2020-07-13] MEDS ORDERED: Norepinephrine 4mg/NS Premix 250 ML ONE (22:56)
[2020-07-13] MEDS ORDERED: Norepinephrine 4mg/NS Premix 250 ML IV SCH (23:00)
[2020-07-13] MEDS ORDERED: cefTRIAXone 1 GM in D5W 55 ML IVPB SCH (23:00)
--- NOTE | 2020-07-13 23:47 | NUR ---
Oral care provided to patient. Levophed at 2mcg/min for hypotension. Temperature currently at 90.5F rectally. Will continue to monitor and normalize temperature slowly. Chest tubes patent, L CT has clots, but MD aware (see prior note). Does have slight drainage to know it is patent.
[2020-07-14] VITALS (90 sets, daily range): BP systolic 67–139; BP diastolic 49–93
--- NOTE | 2020-07-14 01:20 | NUR ---
Pt continues to increase her temperature slowly. Currently sitting at 92.2F rectally. Warming blanket remains in place. Very low urine output will monitor but likely a result of low temperatures. TF remains on hold until temperature can be normalized and bowel sounds are auscultated. Pt on 4mcg/min of Levophed to maintain adequate systolic BP >90 and MAP >65. Will continue to monitor patient closely.
--- NOTE | 2020-07-14 02:12 | NUR ---
Pt temperature now 93.1 rectally. Remains on Levophed at 4mcg/min. Low urine output. Will continue to monitor patient.
[2020-07-14] MEDS: Versed 100mg/NS 200ml 200 ML IV PRN (04:02)
--- NOTE | 2020-07-14 04:15 | NUR ---
Pt temperature is beginning to normalize. Currently 95.8 and rising. Patient dusky/blue tinge around mouth. O2 sats low into the 70's. Ct's patent and draining. Very low U.O. Levophed turned down to 3mcg/min. Will continue to monitor.
[2020-07-14 04:22] LABS: BASOPHILS % (AUTO) 1.2 % (0.0-2.0); EOSINOPHILS % (AUTO) 1.6 % (0.0-3.0); HEMATOCRIT 29.7 % (37.0-47.0); HEMOGLOBIN 8.9 G/DL (12.0-16.0); LYMPHOCYTES % (AUTO) 11.4 % (20.0-45.0); MEAN CORPUSCULAR VOLUME 100 FL (80-99); MONOCYTES % (AUTO) 6.9 % (1.0-10.0); NEUTROPHILS % (AUTO) 78.9 % (45.0-75.0); PLATELET COUNT 305 K/UL (150-450); RED BLOOD COUNT 2.97 M/UL (4.20-5.40); RED CELL DISTRIBUTION WIDTH 18.3 % (11.6-14.8); WHITE BLOOD COUNT 6.3 K/UL (4.8-10.8)
--- NOTE | 2020-07-14 04:51 | NUR ---
Temperature now 96.4. Maintaining temperature within normal limits. Low U.O. Remains dusky around lips. Pt tachypneic and breathing appears more agonal than prior. Patient is on max vent settings with an FiO2 of 100%. Current O2 saturation 81%. B CT's patent. L continues to leak despite re-dressing and reinforcement. Continued reinforcement of dressing. Dr. Frazier to see patient in AM to determine best course of action with L CT. Remains on levophed for blood pressure support. Will continue to monitor the patient.
[2020-07-14 04:56] LABS: ALANINE AMINOTRANSFERASE 87 U/L (12-78); ALBUMIN/GLOBULIN RATIO 0.2 (1.0-2.7); ALKALINE PHOSPHATASE 168 U/L (46-116); ANION GAP 1 mmol/L (5-15); ASPARTATE AMINO TRANSFERASE 82 U/L (15-37); BILIRUBIN,TOTAL 0.4 MG/DL (0.2-1.0); BLOOD UREA NITROGEN 17 mg/dL (7-18); CALCIUM 7.9 MG/DL (8.5-10.1); CARBON DIOXIDE 34 MMOL/L (21-32); CHLORIDE 106 MMOL/L (98-107); CREATININE 0.4 MG/DL (0.55-1.30); PHOSPHORUS 3.2 MG/DL (2.5-4.9); POTASSIUM 4.7 MMOL/L (3.5-5.1); SODIUM 141 MMOL/L (136-145)
--- NOTE | 2020-07-14 05:59 | NUR ---
Pt has reached normal core temperature. Rectally reading 97.7F. Warming blanket turned down to maintain normal temperature. Will pass along to next shift to monitor closely. Pt O2 sat remains low and patient appears to be declining. O2 sat is in the 60's this am. Remains on levophed at 2mcg/min. Will continue to monitor the patient.
[2020-07-14] MEDS: Docusate 100mg/10ml Liq NG SCH ×2 (06:00→15:14)
[2020-07-14] MEDS: NovoLOG Insulin Flexpen SUBQ SCH ×2 (06:00→12:41)
--- NOTE | 2020-07-14 06:48 | NUR ---
Attempted to call tatiana Yoon, but there was no answer and the mailbox was full. Wanted to update on current condition and events overnight.
--- NOTE | 2020-07-14 06:52 | Hematology/Onc Progress Note ---
Assessment/Plan Assessment/Plan Assessment and recs # Leukocytosis with Pneumonia due to COVID-19 virus -> wbc trend 15-->11-->10->17-->18->11->21->9 --> ABX as per id ctx-->off-->cefepime-->ctx --> imaging does show pna --> anticoag recommended --> on remdesivir # Anemia of chronic disease --> hgb 12->10-->9-->11-->10.8->10-->9.6-->8.8 -> transfuse prn --> r/o hemolysis # Thrombocytopenia due to likely plt destruction, Covid19++ with Hypoxia -> steriods, abx per id --> plt 117-->121-->124->77-->90-->132-->174 --> smear is noted # Elevated ddimer due to covid --> duplex legs -> LOVENOX sq # Renal insufficiency -> per renal care # Sepsis due to above --> abx, fluid resuscitation # Dvt ppx lovenox sq Appreciate consultation and dw RN Subjective Constitutional: Denies: no symptoms, chills, fever, malaise, weakness, other Gastrointestinal/Abdominal: Denies: no symptoms, abdomen distended, abdominal pain, black stools, tarry stools, blood in stool, constipated, diarrhea, difficulty swallowing, nausea, poor appetite, poor fluid intake, rectal bleedi ng, vomiting, other Genitourinary: Denies: no symptoms, burning, discharge, frequency, flank pain, hematuria, incontinence, pain, urgency, other Neurologic/Psychiatric: Denies: no symptoms, anxiety, depressed, emotional problems, headache, numbness, paresthesia, pre-existing deficit, seizure, tingling, tremors, weakness, other Endocrine: Denies: no symptoms, excessive sweating, flushing, intolerance to cold, intolerance to heat, increased hunger, increased thirst, increased urine, unexplained weight gain, unexplained weight loss, other Allergies: Coded Allergies: No Known Allergies (Unverified , 06/17/20) Subjective 06/19 sleeping, comfortable, on bipap, meds have been reviewed 06/21 on bipap, labs have been reviewed, no major events 06/22 bipap labs reviewed, meds noted, no bleeding 06/23 bipap labs noted, no bleeding, meds reviewed, mehran rn 06/24 on vent, labs reviewed, meds reviewed 06/25 on vent, with ctx as abx, labs noted, no bleeding 06/26 vent, with ogt, with helms, labs noted, no bleeding plts lower 06/28 labs are pending, on vent, helms intract, no new changes 06/29 icu, on vent, hgb 11, plt 124, meds noted, on ctx 06/30 icu, edematous, is on vent, labs reviewed, abx 07/01 icu, on vent, labs noted, no bleeding, plt 77, labs ordered 07/02 icu, nv, meds noted, no bleeding, plt 91, hgb 9 07/03 icu, nv, meds noted, right chest tube with output, hgb 10 07/05 icu, nv, meds reviewed, labs noted, b/l chest tubes in place 07/06 icu, nv, meds, labs have been ordered, chest tube draining 07/07 icu, chest tubes, on fen, versed, no major changes 07/08 icu, v, chest xray is noted, with worsening right pneumothorax, labs noted 07/09 meds noted, vent, labs reviewed, smear noted. lovenox bid 07/10 icu, on vent, nv, labs reviewed, chest tube functional, on anticoag 07/11 icu, meds noted, nv, on vent, no bleeding, anticoag 07/12 icu, onv ent, nv, no major changes, no bleeding seen, mehran rn 07/13 meds reviewed, labs noted, no changes 07/14 icu, nv, on vent, no bleeding, on anticoag, ctx Objective Objective Current Medications Medications (Trade) Dose Ordered Sig/Myaa Route PRN Reason Start Time Stop Time Status Last Admin Dose Admin Acetaminophen (Tylenol) 500 mg Q4H PRN ORAL Mild Pain (Pain Scale 1-3) 06/18/20 00:15 07/18/20 00:14 06/24/20 17:51 Acetaminophen (Tylenol) 500 mg Q4H PRN ORAL Temp >100.5 06/18/20 00:15 07/18/20 00:14 06/29/20 20:01 Ceftriaxone Sodium 1 gm/ Dextrose 55 ml @ 110 mls/hr Q24H IVPB 07/13/20 23:00 07/20/20 22:59 07/13/20 22:45 Chlorhexidine Gluconate (Sissy-Hex 2%) 1 applic DAILY@2000 TOPIC 06/28/20 20:00 09/26/20 19:59 07/13/20 20:42 Dextrose (Dextrose 50%) 25 ml Q30M PRN IV Hypoglycemia 06/18/20 14:15 09/16/20 14:14 Dextrose (Dextrose 50%) 50 ml Q30M PRN IV Hypoglycemia 06/18/20 14:15 09/16/20 14:14 Docusate Sodium (Colace) 100 mg EVERY 8 HOURS NG 07/02/20 14:00 07/28/20 12:59 07/13/20 20:42 Enoxaparin Sodium (Lovenox) 40 mg DAILY SUBQ 07/12/20 09:00 10/10/20 08:59 07/13/20 09:08 Famotidine (Pepcid I.v.) 20 mg BID IVP 07/10/20 09:00 08/09/20 08:59 07/13/20 17:42 Fentanyl Citrate 1000 mcg/Sodium Chloride 120 ml @ 0 mls/hr Q24H PRN IV SEDATION 07/12/20 09:30 07/19/20 09:29 07/13/20 23:25 Haloperidol Lactate (Haldol) 10 mg Q6H PRN IM Agitation 06/23/20 11:30 08/07/20 11:29 06/23/20 11:34 Insulin Aspart (NovoLOG) while NPO Q6HR SUBQ 06/18/20 18:00 09/16/20 17:59 07/13/20 23:46 Midazolam HCl 200 ml @ 0 mls/hr Q24H PRN IV SEDATION 07/11/20 00:00 07/18/20 00:00 07/14/20 04:02 Norepinephrine Bitartrate 250 ml @ 0 mls/hr Q24H IV 07/13/20 23:00 07/16/20 22:54 07/13/20 23:03 Sodium Chloride 1,000 ml @ 50 mls/hr Q20H IV 06/26/20 08:00 07/26/20 07:59 07/13/20 19:44 Vitamin D (Vitamin D) 2,000 unit DAILY GT 06/29/20 10:30 07/29/20 10:29 07/13/20 09:08 Last 24 Hour Vital Signs Date Time Temp Pulse Resp B/P (MAP) Pulse Ox O2 Delivery O2 Flow Rate FiO2 07/14/20 06:45 98.7 116 35 123/63 (83) 68 07/14/20 06:40 115 35 120/64 (82) 68 07/14/20 06:35 114 34 132/68 (89) 67 07/14/20 06:30 113 34 124/65 (84) 67 07/14/20 06:25 112 35 128/63 (84) 67 07/14/20 06:20 110 35 127/62 (83) 70 07/14/20 06:15 108 35 125/64 (84) 72 07/14/20 06:10 106 34 115/69 (84) 72 07/14/20 06:05 105 34 128/64 (85) 71 07/14/20 06:00 28 123/64 Mechanical Ventilator 100 07/14/20 06:00 28 123/64 Mechanical Ventilator 100 07/14/20 06:00 97.7 106 33 126/60 (82) 66 07/14/20 05:55 104 34 129/76 (93) 65 07/14/20 05:50 102 35 125/75 (92) 66 07/14/20 05:45 101 34 139/83 (101) 78 07/14/20 05:40 98 33 108/54 (72) 79 07/14/20 05:35 97 33 104/53 (70) 80 07/14/20 05:30 97 34 105/53 (70) 80 07/14/20 05:25 96 34 110/60 (77) 80 07/14/20 05:20 95 34 100/68 (79) 82 07/14/20 05:15 95 33 102/49 (66) 82 07/14/20 05:10 94 34 96/57 (70) 83 07/14/20 05:05 94 33 98/55 (69) 82 07/14/20 05:00 96.8 93 31 102/64 (77) 83 07/14/20 05:00 28 96/55 Mechanical Ventilator 100 07/14/20 05:00 28 96/65 Mechanical Ventilator 100 07/14/20 04:55 93 33 100/54 (69) 82 07/14/20 04:50 93 32 108/58 (75) 80 07/14/20 04:45 93 32 103/58 (73) 75 07/14/20 04:40 93 32 121/65 (83) 71 07/14/20 04:35 91 32 114/61 (78) 73 07/14/20 04:30 87 31 128/78 (95) 82 07/14/20 04:25 87 32 92/61 (71) 86 07/14/20 04:20 87 32 101/64 (76) 88 07/14/20 04:15 95.8 87 30 95/58 (70) 88 07/14/20 04:10 86 29 96/58 (71) 89 07/14/20 04:05 85 26 96/57 (70) 90 07/14/20 04:02 25 98/55 Mechanical Ventilator 100 07/14/20 04:00 85 25 98/55 (69) 89 07/14/20 04:00 Mechanical Ventilator Mechanical Ventilator Mechanical Ventilator Mechanical Ventilator Mechanical Ventilator 07/14/20 04:00 100 07/14/20 04:00 77 07/14/20 04:00 28 101/54 Mechanical Ventilator 100 07/14/20 04:00 28 101/54 Mechanical Ventilator 100 07/14/20 03:55 85 21 112/57 (75) 88 07/14/20 03:50 84 26 109/60 (76) 84 07/14/20 03:45 87 27 119/63 (81) 77 07/14/20 03:40 83 27 112/93 (99) 82 07/14/20 03:40 88 32 100 07/14/20 03:35 81 30 112/71 (85) 82 07/14/20 03:30 95.1 79 32 111/66 (81) 90 07/14/20 03:25 81 23 99/57 (71) 90 07/14/20 03:20 81 22 97/61 (73) 90 07/14/20 03:15 80 27 100/57 (71) 91 07/14/20 03:10 80 30 101/59 (73) 91 07/14/20 03:05 79 28 100/61 (74) 91 07/14/20 03:00 28 98/64 Mechanical Ventilator 100 07/14/20 03:00 28 98/64 Mechanical Ventilator 100 07/14/20 03:00 94.3 79 22 99/60 (73) 91 07/14/20 02:55 78 24 102/59 (73) 91 07/14/20 02:50 78 26 100/59 (73) 92 07/14/20 02:45 77 26 99/58 (72) 92 07/14/20 02:40 77 27 97/62 (74) 92 07/14/20 02:35 76 28 100/58 (72) 92 07/14/20 02:30 93.6 76 25 96/57 (70) 92 07/14/20 02:25 75 25 99/56 (70) 92 07/14/20 02:20 75 25 102/60 (74) 90 07/14/20 02:15 74 27 107/65 (79) 88 07/14/20 02:10 72 28 125/67 (86) 88 07/14/20 02:05 93.2 72 26 121/78 (92) 93 07/14/20 02:00 72 29 99/58 (72) 93 07/14/20 02:00 27 121/78 Mechanical Ventilator 100 07/14/20 02:00 27 121/78 Mechanical Ventilator 100 07/14/20 01:55 72 29 99/59 (72) 93 07/14/20 01:50 72 29 101/57 (72) 93 07/14/20 01:45 92.7 72 29 100/62 (75) 92 07/14/20 01:40 72 25 99/61 (74) 92 07/14/20 01:35 72 29 99/55 (70) 92 07/14/20 01:30 71 27 87/57 (67) 92 07/14/20 01:15 92.2 69 27 96/59 (71) 93 07/14/20 01:10 68 27 95/58 (70) 92 07/14/20 01:05 68 26 93/63 (73) 92 07/14/20 01:00 92.1 68 26 105/61 (76) 92 07/14/20 01:00 28 93/63 Mechanical Ventilator 100 07/14/20 01:00 28 93/63 Mechanical Ventilator 100 07/14/20 00:55 69 26 98/60 (73) 92 07/14/20 00:50 69 26 86/53 (64) 91 07/14/20 00:45 68 25 87/55 (66) 91 07/14/20 00:40 69 25 87/53 (64) 91 07/14/20 00:35 69 26 90/58 (69) 91 07/14/20 00:30 91.6 69 27 87/59 (68) 91 07/14/20 00:25 70 26 90/52 (65) 91 07/14/20 00:20 68 26 90/56 (67) 91 07/14/20 00:15 91.0 67 23 93/52 (66) 91 07/14/20 00:10 66 23 90/55 (67) 91 07/14/20 00:05 66 22 87/57 (67) 92 07/14/20 00:00 68 07/14/20 00:00 100 07/14/20 00:00 Mechanical Ventilator Mechanical Ventilator Mechanical Ventilator Mechanical Ventilator Mechanical Ventilator 07/14/20 00:00 28 87/57 Mechanical Ventilator 100 07/14/20 00:00 22 87/57 Mechanical Ventilator 100 07/14/20 00:00 90.8 26 90/59 (69) 92 07/13/20 23:55 90.6 65 21 89/56 (67) 92 07/13/20 23:50 64 20 87/53 (64) 92 07/13/20 23:45 64 20 90/57 (68) 91 07/13/20 23:40 61 20 105/56 (72) 90 07/13/20 23:35 62 20 106/61 (76) 88 07/13/20 23:30 90.0 62 21 101/62 (75) 90 07/13/20 23:26 63 31 100 07/13/20 23:25 29 90/56 Mechanical Ventilator 100 07/13/20 23:25 62 25 91/59 (70) 90 07/13/20 23:20 63 25 90/56 (67) 90 07/13/20 23:15 89.7 62 25 93/56 (68) 90 07/13/20 23:10 63 24 95/58 (70) 90 07/13/20 23:05 60 21 107/66 (80) 89 07/13/20 23:03 77/49 07/13/20 23:00 89.5 64 25 81/49 (60) 89 07/13/20 23:00 22 107/66 Mechanical Ventilator 100 07/13/20 22:45 62 11 77/49 (58) 91 07/13/20 22:30 89.3 63 21 83/49 (60) 92 07/13/20 22:21 64 22 84/51 (62) 92 07/13/20 22:15 63 21 82/50 (61) 92 07/13/20 22:03 63 20 85/51 (62) 93 07/13/20 22:01 63 20 85/50 (62) 93 07/13/20 22:00 22 85/50 Mechanical Ventilator 100 07/13/20 22:00 22 85/50 Mechanical Ventilator 100 07/13/20 22:00 89.2 62 20 81/50 (60) 93 07/13/20 21:45 61 10 87/56 (66) 93 07/13/20 21:30 89.3 57 21 93/71 (78) 63 07/13/20 21:15 62 20 89/56 (67) 92 07/13/20 21:00 22 89/56 Mechanical Ventilator 100 07/13/20 21:00 20 89/56 Mechanical Ventilator 100 07/13/20 21:00 89.2 63 17 98/61 (73) 89 07/13/20 20:45 63 23 90/55 (67) 91 07/13/20 20:35 60 21 92/56 (68) 89 07/13/20 20:30 89.2 62 20 85/56 (66) 92 07/13/20 20:15 62 22 88/58 (68) 91 07/13/20 20:09 64 24 91/61 (71) 93 07/13/20 20:00 62 22 85/57 (66) 93 07/13/20 20:00 22 91/61 Mechanical Ventilator 100 07/13/20 20:00 22 91/61 Mechanical Ventilator 100 07/13/20 20:00 Mechanical Ventilator Mechanical Ventilator Mechanical Ventilator Mechanical Ventilator Mechanical Ventilator 07/13/20 20:00 100 07/13/20 20:00 63 07/13/20 19:47 89.1 64 22 80/57 (65) 95 07/13/20 19:45 63 20 82/60 (67) 94 07/13/20 19:30 63 20 90/58 (69) 95 07/13/20 19:15 62 20 101/62 (75) 91 07/13/20 19:05 66 31 100 07/13/20 19:00 18 90/50 Mechanical Ventilator 100 07/13/20 19:00 18 90/58 Mechanical Ventilator 100 07/13/20 18:15 67 22 103/59 (74) 88 07/13/20 18:00 21 104/63 Mechanical Ventilator 100 07/13/20 18:00 21 104/63 Mechanical Ventilator 100.0 07/13/20 17:00 32 137/80 Mechanical Ventilator 100 07/13/20 17:00 21 137/80 Mechanical Ventilator 100 07/13/20 17:00 67 32 137/80 (99) 88 07/13/20 16:00 61 21 121/76 (91) 91 07/13/20 16:00 Mechanical Ventilator Mechanical Ventilator Mechanical Ventilator Mechanical Ventilator Mechanical Ventilator 07/13/20 16:00 65 07/13/20 16:00 100 07/13/20 16:00 21 121/76 Mechanical Ventilator 100 07/13/20 16:00 21 121/76 Mechanical Ventilator 100 07/13/20 15:09 90 29 100 07/13/20 15:00 32 101/68 Mechanical Ventilator 100 07/13/20 15:00 32 101/68 Mechanical Ventilator 100 07/13/20 15:00 67 27 93/68 (76) 88 07/13/20 14:08 70 27 100/67 (78) 84 07/13/20 14:00 27 100/67 Mechanical Ventilator 100 07/13/20 14:00 27 100/67 Mechanical Ventilator 100 07/13/20 13:00 77 33 126/81 (96) 90 07/13/20 13:00 27 126/81 Mechanical Ventilator 84 07/13/20 13:00 33 126/81 Mechanical Ventilator 100 07/13/20 12:00 95.9 78 32 129/71 (90) 74 07/13/20 12:00 79 07/13/20 12:00 33 129/71 Mechanical Ventilator 100 07/13/20 12:00 32 129/71 Mechanical Ventilator 100 07/13/20 12:00 Mechanical Ventilator Mechanical Ventilator Mechanical Ventilator Mechanical Ventilator Mechanical Ventilator 07/13/20 12:00 100 07/13/20 11:03 76 24 100 07/13/20 11:00 35 120/84 Mechanical Ventilator 100 07/13/20 11:00 35 120/80 Mechanical Ventilator 35 07/13/20 11:00 84 35 120/80 (93) 66 07/13/20 10:18 32 117/72 Mechanical Ventilator 100 07/13/20 10:04 88 32 123/70 (87) 70 07/13/20 10:00 32 123/79 Mechanical Ventilator 100 07/13/20 09:00 24 123/74 Mechanical Ventilator 100 07/13/20 09:00 24 123/74 Mechanical Ventilator 100 07/13/20 09:00 89 24 123/74 (90) 80 07/13/20 08:30 98.4 07/13/20 08:08 94 33 125/72 (89) 64 07/13/20 08:00 33 125/72 Mechanical Ventilator 64 07/13/20 08:00 33 125/72 Mechanical Ventilator 64 07/13/20 08:00 Mechanical Ventilator Mechanical Ventilator Mechanical Ventilator Mechanical Ventilator Mechanical Ventilator 07/13/20 08:00 100 07/13/20 08:00 94 07/13/20 07:11 96 35 100 07/13/20 07:00 94 34 137/75 (95) 64 07/13/20 07:00 20 123/82 Mechanical Ventilator 100 07/13/20 07:00 19 123/82 100 07/13/20 06:00 20 116/79 Mechanical Ventilator 100 07/13/20 06:00 20 116/79 Mechanical Ventilator 100 07/13/20 06:00 97 32 135/86 (102) 64 07/13/20 05:04 101 35 100 07/13/20 05:00 20 108/75 Mechanical Ventilator 100 07/13/20 05:00 19 108/75 Mechanical Ventilator 100 07/13/20 05:00 101 35 132/85 (101) 65 07/13/20 04:36 20 130/80 Mechanical Ventilator 100 07/13/20 04:36 20 130/80 Mechanical Ventilator 100 07/13/20 04:00 Mechanical Ventilator Mechanical Ventilator Mechanical Ventilator Mechanical Ventilator Mechanical Ventilator 07/13/20 04:00 85 07/13/20 04:00 98.1 106 34 134/82 (99) 67 07/13/20 04:00 20 118/77 Mechanical Ventilator 100 07/13/20 04:00 20 126/71 Mechanical Ventilator 100 07/13/20 04:00 100 07/13/20 03:30 110 29 112/73 (86) 78 07/13/20 03:09 109 30 100 07/13/20 03:00 108 24 135/82 (99) 79 07/13/20 03:00 20 115/84 Mechanical Ventilator 100 07/13/20 03:00 20 115/84 Mechanical Ventilator 100 07/13/20 02:00 20 125/73 Mechanical Ventilator 100 07/13/20 02:00 20 125/73 Mechanical Ventilator 100 07/13/20 02:00 115 37 125/80 (95) 68 07/13/20 01:30 115 37 100 07/13/20 01:00 113 34 108/68 (81) 81 07/13/20 01:00 20 130/80 Mechanical Ventilator 100 07/13/20 01:00 20 130/80 Mechanical Ventilator 100 07/13/20 00:00 88 07/13/20 00:00 18 103/67 Mechanical Ventilator 100 07/13/20 00:00 20 103/67 Mechanical Ventilator 100 07/13/20 00:00 Mechanical Ventilator Mechanical Ventilator Mechanical Ventilator Mechanical Ventilator Mechanical Ventilator 07/13/20 00:00 100 07/13/20 00:00 98.2 111 35 120/73 (89) 82 07/12/20 23:09 112 34 100 07/12/20 23:00 20 100/75 Endotracheal Tube 100 07/12/20 23:00 18 100/75 Mechanical Ventilator 100 07/12/20 23:00 110 35 98/64 (75) 86 07/12/20 22:00 106 31 99/68 (78) 87 07/12/20 22:00 20 110/60 Mechanical Ventilator 100 07/12/20 22:00 20 110/60 100 07/12/20 21:00 20 100/65 Mechanical Ventilator 100 07/12/20 21:00 20 100/65 Mechanical Ventilator 100 07/12/20 21:00 106 32 111/73 (86) 90 07/12/20 20:34 111 28 100 07/12/20 20:00 Mechanical Ventilator Mechanical Ventilator Mechanical Ventilator Mechanical Ventilator Mechanical Ventilator 07/12/20 20:00 98.6 116 30 103/63 (76) 90 07/12/20 20:00 100 07/12/20 20:00 20 105/73 Mechanical Ventilator 100 07/12/20 20:00 20 105/73 Mechanical Ventilator 100 07/12/20 20:00 79 07/12/20 19:30 110 32 100 07/12/20 19:00 113 31 99/60 (73) 88 07/12/20 19:00 31 99/60 Endotracheal Tube 100 07/12/20 19:00 31 99/60 Endotracheal Tube 100 07/12/20 18:00 31 107/72 Endotracheal Tube 100 07/12/20 18:00 31 107/72 Endotracheal Tube 100 07/12/20 18:00 106 31 107/72 (84) 91 07/12/20 17:28 29 112/73 Endotracheal Tube 100 07/12/20 17:00 30 120/82 Endotracheal Tube 100 07/12/20 17:00 30 120/82 Endotracheal Tube 100 07/12/20 17:00 106 30 120/82 (95) 90 07/12/20 16:00 32 123/83 Endotracheal Tube 100 07/12/20 16:00 32 123/83 Endotracheal Tube 100 07/12/20 16:00 Mechanical Ventilator Mechanical Ventilator Mechanical Ventilator Mechanical Ventilator Mechanical Ventilator 07/12/20 16:00 100 07/12/20 16:00 99.0 105 32 123/83 (96) 90 07/12/20 16:00 105 07/12/20 15:09 109 33 100 07/12/20 15:00 111 34 122/75 (91) 87 07/12/20 15:00 34 122/75 Endotracheal Tube 100 07/12/20 15:00 34 122/75 Endotracheal Tube 100 07/12/20 14:00 36 84/60 100 07/12/20 14:00 36 84/60 Endotracheal Tube 100 07/12/20 14:00 112 36 84/60 (68) 84 07/12/20 13:00 107 34 98/60 (73) 82 07/12/20 13:00 35 98/60 100 07/12/20 13:00 34 98/60 Endotracheal Tube 100 07/12/20 12:00 100 07/12/20 12:00 Mechanical Ventilator Mechanical Ventilator Mechanical Ventilator Mechanical Ventilator Mechanical Ventilator 07/12/20 12:00 34 97/55 Endotracheal Tube 100 07/12/20 12:00 34 106/68 Endotracheal Tube 100 07/12/20 12:00 98.1 107 34 106/68 (81) 82 07/12/20 12:00 107 07/12/20 11:00 107 21 134/78 (96) 90 07/12/20 11:00 21 134/78 Endotracheal Tube 100 07/12/20 11:00 34 126/75 Endotracheal Tube 100 07/12/20 10:56 111 36 100 07/12/20 10:22 34 113/73 Endotracheal Tube 100 07/12/20 10:00 34 126/75 Endotracheal Tube 100 07/12/20 10:00 34 126/75 Endotracheal Tube 100 07/12/20 10:00 112 34 126/75 (92) 84 07/12/20 09:00 111 35 123/70 (87) 82 07/12/20 09:00 35 123/70 Endotracheal Tube 100 07/12/20 09:00 35 123/70 Endotracheal Tube 100 07/12/20 08:00 113 07/12/20 08:00 100 07/12/20 08:00 34 97/55 Endotracheal Tube 100 07/12/20 08:00 34 97/55 Endotracheal Tube 100 07/12/20 08:00 Mechanical Ventilator Mechanical Ventilator Mechanical Ventilator Mechanical Ventilator Mechanical Ventilator 07/12/20 08:00 99.0 111 34 97/55 (69) 82 07/12/20 07:24 109 32 100 07/12/20 07:00 106 31 107/67 (80) 82 07/12/20 07:00 20 135/74 Mechanical Ventilator 100 07/12/20 07:00 20 135/74 Mechanical Ventilator 100 Intake and Output 07/13/20 07/14/20 19:00 07:00 Intake Total 1688.4 ml 1002.75 ml Output Total 1150 ml 300 ml Balance 538.4 ml 702.75 ml Intake Free Water 200 ml 100 ml IV Total 768.4 ml 847.75 ml Tube Feeding 660 ml 55 ml Other 60 ml Output Urine Total 1075 ml 170 ml Chest Tube Drainage Total 75 ml 130 ml # Bowel Movements 2 Labs Test 07/12/20 06:40 07/12/20 07:00 07/13/20 05:38 07/13/20 22:00 White Blood Count 7.1 K/UL (4.8-10.8) 7.6 K/UL (4.8-10.8) Red Blood Count 3.11 M/UL (4.20-5.40) 3.14 M/UL (4.20-5.40) Hemoglobin 9.3 G/DL (12.0-16.0) 9.5 G/DL (12.0-16.0) Hematocrit 30.9 % (37.0-47.0) 31.3 % (37.0-47.0) Mean Corpuscular Volume 99 FL (80-99) 100 FL (80-99) Mean Corpuscular Hemoglobin 29.9 PG (27.0-31.0) 30.2 PG (27.0-31.0) Mean Corpuscular Hemoglobin Concent 30.1 G/DL (32.0-36.0) 30.3 G/DL (32.0-36.0) Red Cell Distribution Width 17.6 % (11.6-14.8) 18.3 % (11.6-14.8) Platelet Count 283 K/UL (150-450) 330 K/UL (150-450) Mean Platelet Volume 9.3 FL (6.5-10.1) 8.8 FL (6.5-10.1) Neutrophils (%) (Auto) 73.7 % (45.0-75.0) 79.9 % (45.0-75.0) Lymphocytes (%) (Auto) 14.5 % (20.0-45.0) 13.4 % (20.0-45.0) Monocytes (%) (Auto) 7.3 % (1.0-10.0) 4.1 % (1.0-10.0) Eosinophils (%) (Auto) 3.3 % (0.0-3.0) 1.7 % (0.0-3.0) Basophils (%) (Auto) 1.2 % (0.0-2.0) 0.9 % (0.0-2.0) Sodium Level 142 MMOL/L (136-145) Potassium Level 4.7 MMOL/L (3.5-5.1) Chloride Level 104 MMOL/L (98-107) Carbon Dioxide Level 36 MMOL/L (21-32) Anion Gap 2 mmol/L (5-15) Blood Urea Nitrogen 19 mg/dL (7-18) Creatinine 0.4 MG/DL (0.55-1.30) Estimat Glomerular Filtration Rate > 60 mL/min (>60) Glucose Level 105 MG/DL (74-106) Calcium Level 7.7 MG/DL (8.5-10.1) Total Bilirubin 0.5 MG/DL (0.2-1.0) Aspartate Amino Transf (AST/SGOT) 146 U/L (15-37) Alanine Aminotransferase (ALT/SGPT) 107 U/L (12-78) Alkaline Phosphatase 184 U/L (46-116) Total Protein 6.3 G/DL (6.4-8.2) Albumin 1.1 G/DL (3.4-5.0) Globulin 5.2 g/dL Albumin/Globulin Ratio 0.2 (1.0-2.7) Urine Color Wake Urine Appearance Turbid Urine pH 5.0 (4.5-8.0) Urine Specific Barnhart 1.025 (1.005-1.035) Urine Protein 2+ (NEGATIVE) Urine Glucose (UA) Negative (NEGATIVE) Urine Ketones 1+ (NEGATIVE) Urine Blood 1+ (NEGATIVE) Urine Nitrite Positive (NEGATIVE) Urine Bilirubin Negative (NEGATIVE) Urine Urobilinogen 8 MG/DL (0.0-1.0) Urine Leukocyte Esterase 1+ (NEGATIVE) Urine RBC 2-4 /HPF (0 - 2) Urine WBC 10-15 /HPF (0 - 2) Urine Squamous Epithelial Cells Occasional /LPF Urine Amorphous Sediment Moderate /LPF (NONE) Urine Bacteria Many /HPF (NONE) Test 07/14/20 03:20 White Blood Count 6.3 K/UL (4.8-10.8) Red Blood Count 2.97 M/UL (4.20-5.40) Hemoglobin 8.9 G/DL (12.0-16.0) Hematocrit 29.7 % (37.0-47.0) Mean Corpuscular Volume 100 FL (80-99) Mean Corpuscular Hemoglobin 30.0 PG (27.0-31.0) Mean Corpuscular Hemoglobin Concent 29.9 G/DL (32.0-36.0) Red Cell Distribution Width 18.3 % (11.6-14.8) Platelet Count 305 K/UL (150-450) Mean Platelet Volume 9.1 FL (6.5-10.1) Neutrophils (%) (Auto) 78.9 % (45.0-75.0) Lymphocytes (%) (Auto) 11.4 % (20.0-45.0) Monocytes (%) (Auto) 6.9 % (1.0-10.0) Eosinophils (%) (Auto) 1.6 % (0.0-3.0) Basophils (%) (Auto) 1.2 % (0.0-2.0) Sodium Level 141 MMOL/L (136-145) Potassium Level 4.7 MMOL/L (3.5-5.1) Chloride Level 106 MMOL/L (98-107) Carbon Dioxide Level 34 MMOL/L (21-32) Anion Gap 1 mmol/L (5-15) Blood Urea Nitrogen 17 mg/dL (7-18) Creatinine 0.4 MG/DL (0.55-1.30) Estimat Glomerular Filtration Rate > 60 mL/min (>60) Glucose Level 134 MG/DL (74-106) Calcium Level 7.9 MG/DL (8.5-10.1) Phosphorus Level 3.2 MG/DL (2.5-4.9) Magnesium Level 2.2 MG/DL (1.8-2.4) Total Bilirubin 0.4 MG/DL (0.2-1.0) Aspartate Amino Transf (AST/SGOT) 82 U/L (15-37) Alanine Aminotransferase (ALT/SGPT) 87 U/L (12-78) Alkaline Phosphatase 168 U/L (46-116) C-Reactive Protein, Quantitative 10.4 mg/dL (0.00-0.90) Pro-B-Type Natriuretic Peptide 1989 pg/mL (0-125) Total Protein 5.9 G/DL (6.4-8.2) Albumin 1.0 G/DL (3.4-5.0) Globulin 4.9 g/dL Albumin/Globulin Ratio 0.2 (1.0-2.7) Height (Feet): 5 Height (Inches): 2.00 Weight (Pounds): 138 Objective Physical Exam Vitals: reviewed, abnormal - Interpreted as low by me General: GCS 15 - Sometimes slightly confused, non-toxic, mild distress Head: normocephalic, moist mucus membranes Neck: supple Respiratory: ++bilateral chest tubes Cardiovascular: regular rate, rhythm, no edema Gastrointestinal: normal inspection, non tender, soft Genitourinary: no CVA tenderness Musculoskeletal: back normal Neurologic: alert, oriented x3, grossly normal Psychiatric: mood/affect normal - sometimes confused Skin: no rash, warm/dry Jj Swann MD Jul 14, 2020 06:52
--- NOTE | 2020-07-14 06:57 | NUR ---
Attempted to call son, Car, again for an update on events overnight. No answer and unable to leave a voicemail.
--- NOTE | 2020-07-14 07:27 | NUR ---
Son, Car, called back during report and I updated him on overnight events. Report given to Leila who assumed care of patient. Patients current temperature is 99.4 rectally. Turned heating blanket on standby so it only monitors and does not heat. Notified oncoming nurse to watch temperature closely and to not cool the patient via the cooling blanket without prior approval due to fluctuation and significant cold temperature overnight.
--- NOTE | 2020-07-14 07:30 | NUR ---
NURSE NOTES: Report received from Coral Roach RN.Pt comatose ,non responsive to any deep stimuli,Orally intubated ETT 7.0,lip line 22,AC20 TV400 Fio2 100% Peep12,vent settings not tolerated,O2 sat 60%,Glucerna 1.2 at 55 ml/hr off at this time,will need to restart when pt is more stable, with RT and LT chest tube ,Martin cathdraining dark urine with sediments,urine is very scanty in amount,Pt with fever T100.0,skin hot to touch,TONY PICC line intact,with Fentanyl drip at 60 mcg/hr,Versed drip 6 mg /hr,and IVF NS at 50 ml/hr,SR up x2 HOB elevated ,bed lock in lowest position ,will continue to monitor pt.
--- NOTE | 2020-07-14 08:41 | NUR ---
RADIOLOGY DEPT., CHEST X-RAY DONE.-P.DYE
[2020-07-14] MEDS: Vitamin D 1000 units Tab GT SCH (08:44)
[2020-07-14] MEDS: Enoxaparin 40mg Inj SUBQ SCH (08:44)
--- NOTE | 2020-07-14 09:03 | NUR ---
RD ASSESSMENT & RECOMMENDATIONS SEE CARE ACTIVITY FOR COMPLETE ASSESSMENT DAILY ESTIMATED NEEDS: Needs based on Critical care 62.7kg 22-28 kcals/kg 6326-3222 total kcals 1.2-2 g protein/kg 75-125 g total protein 25-30 mL/kg 2299-1413 total fluid mLs NUTRITION DIAGNOSIS: Altered nutrition related lab values r/t clinical status as evidenced by elev BG checks (POC 226 230 128-> now improved), A1C 7.1, elevated Na(153-> 146), elev BUN(34-> 23), elev Mg(3.1). CURRENT DIET: NPO CURRENT TF:Glucerna 1.2 goal of 55ml/hr ENTERAL NUTRITION RECOMMENDATIONS: Glucerna 1.2 goal of 55ml/hr x24 hrs to provide 1320ml, 1584 kcal, 79g pro, 1063ml free H2O - Maintain Glucerna 1.2 @goal as tolerated. - Flush per MD/ HOB over 30 degrees - Trophic feeds w/ increased pressor support to maintain gut integrity. ADDITIONAL RECOMMENDATIONS: * Calibrated bed scale wts * Bowel regimen - bm noted * Off decadron, BG improved * Feed w/ hemodynamic stability- NE @ 1mcg * Monitor lytes, replete as needed .
[2020-07-14] MEDS: Acetaminophen 500mg (ES) tab ORAL PRN ×2 (09:20→15:14)
--- NOTE | 2020-07-14 09:44 | Nephrology Progress Note ---
Assessment/Plan Problem List: (1) LEONARDO (acute kidney injury) (2) Dehydration (3) DMII (diabetes mellitus, type 2) (4) Pneumonia due to COVID-19 virus (5) Hypoxia Assessment 70-year-old female presents with COVID-19 pneumonia and hypoxia On admission has BUN of 77 and creatinine of 1.6. Renal failure most likely prerenal and dehydration with possible underlying chronic kidney disease Patient has elevated inflammatory markers Hypoalbuminemia Electrolyte abnormalities Hyperglycemia Plan July 14: Status quo. Doing poorly. FiO2 100%. DNR. Intubated on ventilator with bilateral chest tube. Continue per consultants. Not much to add from renal standpoint of view. July 13: Clinical status unchanged and remains very unstable. FiO2 is remains 100% intubated on ventilator with bilateral chest tube. No labs drawn today July 12: Status unchanged. Remains and high FiO2 of 100% with bilateral chest tube. Labs reviewed. Renal parameters stable. Continue per consultants. Prognosis remains poor. July 11: Patient is doing poorly. Remains on FiO2 of 100%. Patient is DNR however intubated on ventilator with 2 chest tubes. Discussed with RN. Labs and medication list reviewed. Not much to add from renal standpoint of view. July 10: Status quo. FiO2 100%. Remains intubated. Will check lab nickie orrow. Continue per consultants. July 09: Status quo. FiO2 100%. Intubated on ventilator with bilateral chest tube. Labs reviewed. Renal parameters stable however overall status and clinical condition remains poor. Patient DNR. July 08: DNR. Intubated on ventilator. FiO2 100%. Bilateral chest tube. Labs reviewed. Renal parameters stable. July 07: FiO2 100%. Renal parameters stable. Remains intubated with bilateral chest tube. Continue per pulmonary. July 06: Labs reviewed. Renal parameters stable. ABG suggests retaining of CO2. Patient continues to be on FiO2 100%. Has bilateral chest tubes. Remains intubated on ventilator. Continue to monitor renal parameters. July 05: No CHEM panel drawn today. Status quo. Pulmonary status unchanged. We will continue to monitor renal parameters and electrolytes. Continue per consultants. July 04: Status quo. On ventilator. Full code. Bilateral chest tube. Renal parameters stable. July 03: Patient remains full code. Intubated on ventilator. Has chest tube. Labs reviewed. Renal parameters stable. Continue per consultants. July 02: Remains intubated. Has a bilateral chest tube. He is full code. Labs reviewed. Abnormal electrolyte addressed. Continue per consultants. July 01: Remains intubated. Continues to have bilateral chest tube. Full code. Labs reviewed. Renal parameters stable. Low phosphorus addressed. Discussed with NORMAN Lyon. June 30: Full code. Intubated. Bilateral chest tube. As reviewed. Abnormal electrolytes addressed. June 29: Full code. Intubated. Bilateral chest tube. Unstable pulmonary status. ABG ordered. Electrolyte imbalance addressed. Discussed with NORMAN Montalvo. June 28: Labs reviewed. Abnormal electrolytes addressed. Patient remains full code. Continue per consultants. June 27: No chemistry panel done today. Remains full code. Medication list reviewed. Continue per consultants. Will monitor electrolytes and renal panel in a.m. June 26: Status quo. Remains full code. Labs reviewed. Main IV changed to normal saline 50 cc an hour. Continue per consultants and pulmonary. June 25: Remains intubated. Has bilateral chest tube. Full code. Labs reviewed. Abnormal electrolytes addressed. Albumin bolus given. Continue to monitor renal parameters. Poor prognosis. June 24: Patient in ICU. Intubated. Has bilateral chest tube. Labs reviewed. Renal parameters stable. Low phosphorus addressed. Continue per consultants. Full code. Poor prognosis. June 23: Patient in ICU. Intubated. Due for insertion of a chest tube. Has pneumothorax. Renal parameters are stable. Serum sodium rising. Will adjust IV fluid. Continue per consultants. Patient full code. Prognosis poor. June 22: Labs reviewed. Remains on BiPAP which is not changed to high flow oxygen due to pneumothorax found on chest x-ray. Serum sodium 155. Continues on D5W. Electrolytes within normal limits. Check 2D echocardiogram. Coreg for blood pressure and heart rate. June 21: Status quo. On BiPAP. Full code. Serum sodium 153. Continue D5W. Continue to monitor electrolytes. Continue per consultants. June 20: Patient full code. On BiPAP. Labs reviewed. Serum sodium rising. Will increase D5W to 75 cc an hour. Continue to monitor electrolytes. June 19: IV changed to D5W. Monitor blood sugar. Monitor electrolytes. Medication list reviewed. Patient is being treated for COVID-19 pneumonia. Patient is full code. Previously Pulmonary support IV antibiotics Slow hydration Avoid nephrotoxic Monitor renal parameters Per orders Subjective ROS Limited/Unobtainable: Yes Objective Objective Last 24 Hour Vital Signs Date Time Temp Pulse Resp B/P (MAP) Pulse Ox O2 Delivery O2 Flow Rate FiO2 07/14/20 08:00 Mechanical Ventilator Mechanical Ventilator Mechanical Ventilator Mechanical Ventilator Mechanical Ventilator 07/14/20 08:00 36 134/64 Mechanical Ventilator 100 07/14/20 08:00 36 134/64 Mechanical Ventilator 100 07/14/20 08:00 122 07/14/20 08:00 99.0 127 36 134/64 (87) 59 07/14/20 08:00 100 07/14/20 07:36 127 35 100 07/14/20 06:45 98.7 116 35 123/63 (83) 68 07/14/20 06:40 115 35 120/64 (82) 68 07/14/20 06:35 114 34 132/68 (89) 67 07/14/20 06:30 113 34 124/65 (84) 67 07/14/20 06:25 112 35 128/63 (84) 67 07/14/20 06:20 110 35 127/62 (83) 70 07/14/20 06:15 108 35 125/64 (84) 72 07/14/20 06:10 106 34 115/69 (84) 72 07/14/20 06:05 105 34 128/64 (85) 71 07/14/20 06:00 28 123/64 Mechanical Ventilator 100 07/14/20 06:00 28 123/64 Mechanical Ventilator 100 07/14/20 06:00 97.7 106 33 126/60 (82) 66 07/14/20 05:55 104 34 129/76 (93) 65 07/14/20 05:50 102 35 125/75 (92) 66 07/14/20 05:45 101 34 139/83 (101) 78 07/14/20 05:40 98 33 108/54 (72) 79 07/14/20 05:35 97 33 104/53 (70) 80 07/14/20 05:30 97 34 105/53 (70) 80 07/14/20 05:25 96 34 110/60 (77) 80 07/14/20 05:20 95 34 100/68 (79) 82 07/14/20 05:15 95 33 102/49 (66) 82 07/14/20 05:10 94 34 96/57 (70) 83 2/23/21 05:05 94 33 98/55 (69) 82 07/14/20 05:00 96.8 93 31 102/64 (77) 83 07/14/20 05:00 28 96/55 Mechanical Ventilator 100 07/14/20 05:00 28 96/65 Mechanical Ventilator 100 07/14/20 04:55 93 33 100/54 (69) 82 07/14/20 04:50 93 32 108/58 (75) 80 07/14/20 04:45 93 32 103/58 (73) 75 07/14/20 04:40 93 32 121/65 (83) 71 07/14/20 04:35 91 32 114/61 (78) 73 07/14/20 04:30 87 31 128/78 (95) 82 07/14/20 04:25 87 32 92/61 (71) 86 07/14/20 04:20 87 32 101/64 (76) 88 07/14/20 04:15 95.8 87 30 95/58 (70) 88 07/14/20 04:10 86 29 96/58 (71) 89 07/14/20 04:05 85 26 96/57 (70) 90 07/14/20 04:02 25 98/55 Mechanical Ventilator 100 07/14/20 04:00 85 25 98/55 (69) 89 07/14/20 04:00 Mechanical Ventilator Mechanical Ventilator Mechanical Ventilator Mechanical Ventilator Mechanical Ventilator 07/14/20 04:00 100 07/14/20 04:00 77 07/14/20 04:00 28 101/54 Mechanical Ventilator 100 07/14/20 04:00 28 101/54 Mechanical Ventilator 100 07/14/20 03:55 85 21 112/57 (75) 88 07/14/20 03:50 84 26 109/60 (76) 84 07/14/20 03:45 87 27 119/63 (81) 77 07/14/20 03:40 83 27 112/93 (99) 82 07/14/20 03:40 88 32 100 07/14/20 03:35 81 30 112/71 (85) 82 07/14/20 03:30 95.1 79 32 111/66 (81) 90 07/14/20 03:25 81 23 99/57 (71) 90 07/14/20 03:20 81 22 97/61 (73) 90 07/14/20 03:15 80 27 100/57 (71) 91 07/14/20 03:10 80 30 101/59 (73) 91 07/14/20 03:05 79 28 100/61 (74) 91 07/14/20 03:00 28 98/64 Mechanical Ventilator 100 07/14/20 03:00 28 98/64 Mechanical Ventilator 100 07/14/20 03:00 94.3 79 22 99/60 (73) 91 07/14/20 02:55 78 24 102/59 (73) 91 07/14/20 02:50 78 26 100/59 (73) 92 07/14/20 02:45 77 26 99/58 (72) 92 07/14/20 02:40 77 27 97/62 (74) 92 07/14/20 02:35 76 28 100/58 (72) 92 07/14/20 02:30 93.6 76 25 96/57 (70) 92 07/14/20 02:25 75 25 99/56 (70) 92 07/14/20 02:20 75 25 102/60 (74) 90 07/14/20 02:15 74 27 107/65 (79) 88 07/14/20 02:10 72 28 125/67 (86) 88 07/14/20 02:05 93.2 72 26 121/78 (92) 93 07/14/20 02:00 72 29 99/58 (72) 93 07/14/20 02:00 27 121/78 Mechanical Ventilator 100 07/14/20 02:00 27 121/78 Mechanical Ventilator 100 07/14/20 01:55 72 29 99/59 (72) 93 07/14/20 01:50 72 29 101/57 (72) 93 07/14/20 01:45 92.7 72 29 100/62 (75) 92 07/14/20 01:40 72 25 99/61 (74) 92 07/14/20 01:35 72 29 99/55 (70) 92 07/14/20 01:30 71 27 87/57 (67) 92 07/14/20 01:15 92.2 69 27 96/59 (71) 93 07/14/20 01:10 68 27 95/58 (70) 92 07/14/20 01:05 68 26 93/63 (73) 92 07/14/20 01:00 92.1 68 26 105/61 (76) 92 07/14/20 01:00 28 93/63 Mechanical Ventilator 100 07/14/20 01:00 28 93/63 Mechanical Ventilator 100 07/14/20 00:55 69 26 98/60 (73) 92 07/14/20 00:50 69 26 86/53 (64) 91 07/14/20 00:45 68 25 87/55 (66) 91 07/14/20 00:40 69 25 87/53 (64) 91 07/14/20 00:35 69 26 90/58 (69) 91 07/14/20 00:30 91.6 69 27 87/59 (68) 91 07/14/20 00:25 70 26 90/52 (65) 91 07/14/20 00:20 68 26 90/56 (67) 91 07/14/20 00:15 91.0 67 23 93/52 (66) 91 07/14/20 00:10 66 23 90/55 (67) 91 07/14/20 00:05 66 22 87/57 (67) 92 07/14/20 00:00 68 07/14/20 00:00 100 07/14/20 00:00 Mechanical Ventilator Mechanical Ventilator Mechanical Ventilator Mechanical Ventilator Mechanical Ventilator 07/14/20 00:00 28 87/57 Mechanical Ventilator 100 07/14/20 00:00 22 87/57 Mechanical Ventilator 100 07/14/20 00:00 90.8 26 90/59 (69) 92 07/13/20 23:55 90.6 65 21 89/56 (67) 92 07/13/20 23:50 64 20 87/53 (64) 92 07/13/20 23:45 64 20 90/57 (68) 91 07/13/20 23:40 61 20 105/56 (72) 90 07/13/20 23:35 62 20 106/61 (76) 88 07/13/20 23:30 90.0 62 21 101/62 (75) 90 07/13/20 23:26 63 31 100 07/13/20 23:25 29 90/56 Mechanical Ventilator 100 07/13/20 23:25 62 25 91/59 (70) 90 07/13/20 23:20 63 25 90/56 (67) 90 07/13/20 23:15 89.7 62 25 93/56 (68) 90 07/13/20 23:10 63 24 95/58 (70) 90 07/13/20 23:05 60 21 107/66 (80) 89 07/13/20 23:03 77/49 07/13/20 23:00 89.5 64 25 81/49 (60) 89 07/13/20 23:00 22 107/66 Mechanical Ventilator 100 07/13/20 22:45 62 11 77/49 (58) 91 07/13/20 22:30 89.3 63 21 83/49 (60) 92 07/13/20 22:21 64 22 84/51 (62) 92 07/13/20 22:15 63 21 82/50 (61) 92 07/13/20 22:03 63 20 85/51 (62) 93 07/13/20 22:01 63 20 85/50 (62) 93 07/13/20 22:00 22 85/50 Mechanical Ventilator 100 07/13/20 22:00 22 85/50 Mechanical Ventilator 100 07/13/20 22:00 89.2 62 20 81/50 (60) 93 07/13/20 21:45 61 10 87/56 (66) 93 07/13/20 21:30 89.3 57 21 93/71 (78) 63 07/13/20 21:15 62 20 89/56 (67) 92 07/13/20 21:00 22 89/56 Mechanical Ventilator 100 07/13/20 21:00 20 89/56 Mechanical Ventilator 100 07/13/20 21:00 89.2 63 17 98/61 (73) 89 07/13/20 20:45 63 23 90/55 (67) 91 07/13/20 20:35 60 21 92/56 (68) 89 07/13/20 20:30 89.2 62 20 85/56 (66) 92 07/13/20 20:15 62 22 88/58 (68) 91 07/13/20 20:09 64 24 91/61 (71) 93 07/13/20 20:00 62 22 85/57 (66) 93 07/13/20 20:00 22 91/61 Mechanical Ventilator 100 07/13/20 20:00 22 91/61 Mechanical Ventilator 100 07/13/20 20:00 Mechanical Ventilator Mechanical Ventilator Mechanical Ventilator Mechanical Ventilator Mechanical Ventilator 07/13/20 20:00 100 07/13/20 20:00 63 07/13/20 19:47 89.1 64 22 80/57 (65) 95 07/13/20 19:45 63 20 82/60 (67) 94 07/13/20 19:30 63 20 90/58 (69) 95 07/13/20 19:15 62 20 101/62 (75) 91 07/13/20 19:05 66 31 100 07/13/20 19:00 18 90/50 Mechanical Ventilator 100 07/13/20 19:00 18 90/58 Mechanical Ventilator 100 07/13/20 18:15 67 22 103/59 (74) 88 07/13/20 18:00 21 104/63 Mechanical Ventilator 100 07/13/20 18:00 21 104/63 Mechanical Ventilator 100.0 07/13/20 17:00 32 137/80 Mechanical Ventilator 100 07/13/20 17:00 21 137/80 Mechanical Ventilator 100 07/13/20 17:00 67 32 137/80 (99) 88 07/13/20 16:00 61 21 121/76 (91) 91 07/13/20 16:00 Mechanical Ventilator Mechanical Ventilator Mechanical Ventilator Mechanical Ventilator Mechanical Ventilator 07/13/20 16:00 65 07/13/20 16:00 100 07/13/20 16:00 21 121/76 Mechanical Ventilator 100 07/13/20 16:00 21 121/76 Mechanical Ventilator 100 07/13/20 15:09 90 29 100 07/13/20 15:00 32 101/68 Mechanical Ventilator 100 07/13/20 15:00 32 101/68 Mechanical Ventilator 100 07/13/20 15:00 67 27 93/68 (76) 88 07/13/20 14:08 70 27 100/67 (78) 84 07/13/20 14:00 27 100/67 Mechanical Ventilator 100 07/13/20 14:00 27 100/67 Mechanical Ventilator 100 07/13/20 13:00 77 33 126/81 (96) 90 07/13/20 13:00 27 126/81 Mechanical Ventilator 84 07/13/20 13:00 33 126/81 Mechanical Ventilator 100 07/13/20 12:00 95.9 78 32 129/71 (90) 74 07/13/20 12:00 79 07/13/20 12:00 33 129/71 Mechanical Ventilator 100 07/13/20 12:00 32 129/71 Mechanical Ventilator 100 07/13/20 12:00 Mechanical Ventilator Mechanical Ventilator Mechanical Ventilator Mechanical Ventilator Mechanical Ventilator 07/13/20 12:00 100 07/13/20 11:03 76 24 100 07/13/20 11:00 35 120/84 Mechanical Ventilator 100 07/13/20 11:00 35 120/80 Mechanical Ventilator 35 07/13/20 11:00 84 35 120/80 (93) 66 07/13/20 10:18 32 117/72 Mechanical Ventilator 100 07/13/20 10:04 88 32 123/70 (87) 70 07/13/20 10:00 32 123/79 Mechanical Ventilator 100 Intake and Output 07/13/20 07/14/20 19:00 07:00 Intake Total 1688.4 ml 1002.75 ml Output Total 1150 ml 310 ml Balance 538.4 ml 692.75 ml Intake Free Water 200 ml 100 ml IV Total 768.4 ml 847.75 ml Tube Feeding 660 ml 55 ml Other 60 ml Output Urine Total 1075 ml 180 ml Chest Tube Drainage Total 75 ml 130 ml # Bowel Movements 2 Current Medications Medications (Trade) Dose Ordered Sig/Maya Route PRN Reason Start Time Stop Time Status Last Admin Dose Admin Acetaminophen (Tylenol) 500 mg Q4H PRN ORAL Mild Pain (Pain Scale 1-3) 06/18/20 00:15 07/18/20 00:14 07/14/20 09:20 Acetaminophen (Tylenol) 500 mg Q4H PRN ORAL Temp >100.5 06/18/20 00:15 07/18/20 00:14 06/29/20 20:01 Ceftriaxone Sodium 1 gm/ Dextrose 55 ml @ 110 mls/hr Q24H IVPB 07/13/20 23:00 07/20/20 22:59 07/13/20 22:45 Chlorhexidine Gluconate (Sissy-Hex 2%) 1 applic DAILY@2000 TOPIC 06/28/20 20:00 09/26/20 19:59 07/13/20 20:42 Dextrose (Dextrose 50%) 25 ml Q30M PRN IV Hypoglycemia 06/18/20 14:15 09/16/20 14:14 Dextrose (Dextrose 50%) 50 ml Q30M PRN IV Hypoglycemia 06/18/20 14:15 09/16/20 14:14 Docusate Sodium (Colace) 100 mg EVERY 8 HOURS NG 07/02/20 14:00 07/28/20 12:59 07/13/20 20:42 Enoxaparin Sodium (Lovenox) 40 mg DAILY SUBQ 07/12/20 09:00 10/10/20 08:59 07/14/20 08:44 Famotidine (Pepcid I.v.) 20 mg BID IVP 07/10/20 09:00 08/09/20 08:59 07/14/20 08:44 Fentanyl Citrate 1000 mcg/Sodium Chloride 120 ml @ 0 mls/hr Q24H PRN IV SEDATION 07/12/20 09:30 07/19/20 09:29 07/13/20 23:25 Haloperidol Lactate (Haldol) 10 mg Q6H PRN IM Agitation 06/23/20 11:30 08/07/20 11:29 06/23/20 11:34 Insulin Aspart (NovoLOG) while NPO Q6HR SUBQ 06/18/20 18:00 09/16/20 17:59 07/13/20 23:46 Midazolam HCl 200 ml @ 0 mls/hr Q24H PRN IV SEDATION 07/11/20 00:00 07/18/20 00:00 07/14/20 04:02 Norepinephrine Bitartrate 250 ml @ 0 mls/hr Q24H IV 07/13/20 23:00 07/16/20 22:54 07/13/20 23:03 Sodium Chloride 1,000 ml @ 50 mls/hr Q20H IV 06/26/20 08:00 07/26/20 07:59 07/13/20 19:44 Vitamin D (Vitamin D) 2,000 unit DAILY GT 06/29/20 10:30 07/29/20 10:29 07/14/20 08:44 Laboratory Tests 07/13/20 22:00: Urine Color [place], Urine Appearance Turbid, Urine pH 5.0, Urine Specific [place] 1.025, Urine Protein 2+H, Urine Glucose (UA) Negative, Urine Ketones 1+H , Urine Blood 1+H, Urine Nitrite PositiveH, Urine Bilirubin Negative, Urine Urobilinogen 8H, Urine Leukocyte Esterase 1+H, Urine RBC 2-4H, Urine WBC 10-15H, Urine Squamous Epithelial Cells Occasional, Urine Amorphous Sediment ModerateH, Urine Bacteria ManyH 07/14/20 03:20: White Blood Count 6.3, Red Blood Count 2.97L, Hemoglobin 8.9L, Hematocrit 29.7L, Mean Corpuscular Volume 100H, Mean Corpuscular Hemoglobin 30.0, Mean Corpuscular Hemoglobin Concent 29.9L, Red Cell Distribution Width 18.3H, Platelet Count 305, Mean Platelet Volume 9.1, Neutrophils (%) (Auto) 78.9H, Lymphocytes (%) (Auto) 11.4L, Monocytes (%) (Auto) 6.9, Eosinophils (%) (Auto) 1.6, Basophils (%) (Auto) 1.2, Sodium Level 141, Potassium Level 4.7, Chloride Level 106, Carbon Dioxide Level 34H, Anion Gap 1L, Blood Urea Nitrogen 17, Creatinine 0.4L, Estimat Glomerular Filtration Rate > 60, Glucose Level 134H, Calcium Level 7.9L, Phosphorus Level 3.2, Magnesium Level 2.2, Total Bilirubin 0.4, Aspartate Amino Transf (AST/SGOT) 82H, Alanine Aminotransferase (ALT/SGPT) 87H, Alkaline Ph osphatase 168H, C-Reactive Protein, Quantitative 10.4H, Pro-B-Type Natriuretic Peptide 1989H, Total Protein 5.9L, Albumin 1.0L, Globulin 4.9, Albumin/Globulin Ratio 0.2L Height (Feet): 5 Height (Inches): 2.00 Weight (Pounds): 138 General Appearance: mild distress EENT: other - Intubated on ventilator Cardiovascular: tachycardia Respiratory/Chest: decreased breath sounds, other - Bilateral chest tube Raza De Jesus MD Jul 14, 2020 09:44
--- NOTE | 2020-07-14 10:00 | NUR ---
NURSE NOTES: Dr Frazier at bedside ,fix the LT chest tube,change drsg,pt with high resp rate,47/min,tachycardeic,HR 135/min.PT very unstable.
--- NOTE | 2020-07-14 11:00 | NUR ---
NURSE NOTES: Pt unstable,agitated, RR high,HR high S-Tach on the monitor,will increase Fentanyl drip to keep RASS-2.
--- NOTE | 2020-07-14 11:20 | Infectious Diseases Prog Note ---
Assessment/Plan Assessment/Plan A; Sepsis COVID19 pneumonia Hypoxic & hypercapnic respiratory failure Acute kidney injury, resolving Hyperglycemia, DM type 2 Bilateral pneumothorax Leukocytosis resolved Anemia Hypotension Pyuria, UTI P; Continue Rocephin Will f/u UC Finished Remdesivir & Dexamethasone course Poor prognosis, DNR status Subjective ROS Limited/Unobtainable: Yes Constitutional: Reports: fever, other - Fg=989.6 Cardiovascular: Reports: other - off of Levophed Allergies: Coded Allergies: No Known Allergies (Unverified , 06/17/20) Objective Last 24 Hour Vital Signs Date Time Temp Pulse Resp B/P (MAP) Pulse Ox O2 Delivery O2 Flow Rate FiO2 07/14/20 10:00 136 38 103/58 (73) 60 07/14/20 09:50 100.1 07/14/20 09:00 100.6 135 35 131/68 (89) 52 07/14/20 08:00 Mechanical Ventilator Mechanical Ventilator Mechanical Ventilator Mechanical Ventilator Mechanical Ventilator 07/14/20 08:00 36 134/64 Mechanical Ventilator 100 07/14/20 08:00 36 134/64 Mechanical Ventilator 100 07/14/20 08:00 122 07/14/20 08:00 99.0 127 36 134/64 (87) 59 07/14/20 08:00 100 07/14/20 07:36 127 35 100 07/14/20 06:45 98.7 116 35 123/63 (83) 68 07/14/20 06:40 115 35 120/64 (82) 68 07/14/20 06:35 114 34 132/68 (89) 67 07/14/20 06:30 113 34 124/65 (84) 67 07/14/20 06:25 112 35 128/63 (84) 67 07/14/20 06:20 110 35 127/62 (83) 70 07/14/20 06:15 108 35 125/64 (84) 72 07/14/20 06:10 106 34 115/69 (84) 72 07/14/20 06:05 105 34 128/64 (85) 71 07/14/20 06:00 28 123/64 Mechanical Ventilator 100 07/14/20 06:00 28 123/64 Mechanical Ventilator 100 07/14/20 06:00 97.7 106 33 126/60 (82) 66 2/23/21 05:55 104 34 129/76 (93) 65 07/14/20 05:50 102 35 125/75 (92) 66 07/14/20 05:45 101 34 139/83 (101) 78 07/14/20 05:40 98 33 108/54 (72) 79 07/14/20 05:35 97 33 104/53 (70) 80 07/14/20 05:30 97 34 105/53 (70) 80 07/14/20 05:25 96 34 110/60 (77) 80 07/14/20 05:20 95 34 100/68 (79) 82 07/14/20 05:15 95 33 102/49 (66) 82 07/14/20 05:10 94 34 96/57 (70) 83 07/14/20 05:05 94 33 98/55 (69) 82 07/14/20 05:00 96.8 93 31 102/64 (77) 83 07/14/20 05:00 28 96/55 Mechanical Ventilator 100 07/14/20 05:00 28 96/65 Mechanical Ventilator 100 07/14/20 04:55 93 33 100/54 (69) 82 07/14/20 04:50 93 32 108/58 (75) 80 07/14/20 04:45 93 32 103/58 (73) 75 07/14/20 04:40 93 32 121/65 (83) 71 07/14/20 04:35 91 32 114/61 (78) 73 07/14/20 04:30 87 31 128/78 (95) 82 07/14/20 04:25 87 32 92/61 (71) 86 07/14/20 04:20 87 32 101/64 (76) 88 07/14/20 04:15 95.8 87 30 95/58 (70) 88 07/14/20 04:10 86 29 96/58 (71) 89 07/14/20 04:05 85 26 96/57 (70) 90 07/14/20 04:02 25 98/55 Mechanical Ventilator 100 07/14/20 04:00 85 25 98/55 (69) 89 07/14/20 04:00 Mechanical Ventilator Mechanical Ventilator Mechanical Ventilator Mechanical Ventilator Mechanical Ventilator 07/14/20 04:00 100 07/14/20 04:00 77 07/14/20 04:00 28 101/54 Mechanical Ventilator 100 07/14/20 04:00 28 101/54 Mechanical Ventilator 100 07/14/20 03:55 85 21 112/57 (75) 88 07/14/20 03:50 84 26 109/60 (76) 84 07/14/20 03:45 87 27 119/63 (81) 77 07/14/20 03:40 83 27 112/93 (99) 82 07/14/20 03:40 88 32 100 07/14/20 03:35 81 30 112/71 (85) 82 07/14/20 03:30 95.1 79 32 111/66 (81) 90 07/14/20 03:25 81 23 99/57 (71) 90 07/14/20 03:20 81 22 97/61 (73) 90 07/14/20 03:15 80 27 100/57 (71) 91 07/14/20 03:10 80 30 101/59 (73) 91 07/14/20 03:05 79 28 100/61 (74) 91 07/14/20 03:00 28 98/64 Mechanical Ventilator 100 07/14/20 03:00 28 98/64 Mechanical Ventilator 100 07/14/20 03:00 94.3 79 22 99/60 (73) 91 07/14/20 02:55 78 24 102/59 (73) 91 07/14/20 02:50 78 26 100/59 (73) 92 07/14/20 02:45 77 26 99/58 (72) 92 07/14/20 02:40 77 27 97/62 (74) 92 07/14/20 02:35 76 28 100/58 (72) 92 07/14/20 02:30 93.6 76 25 96/57 (70) 92 07/14/20 02:25 75 25 99/56 (70) 92 07/14/20 02:20 75 25 102/60 (74) 90 07/14/20 02:15 74 27 107/65 (79) 88 07/14/20 02:10 72 28 125/67 (86) 88 07/14/20 02:05 93.2 72 26 121/78 (92) 93 07/14/20 02:00 72 29 99/58 (72) 93 07/14/20 02:00 27 121/78 Mechanical Ventilator 100 07/14/20 02:00 27 121/78 Mechanical Ventilator 100 07/14/20 01:55 72 29 99/59 (72) 93 07/14/20 01:50 72 29 101/57 (72) 93 07/14/20 01:45 92.7 72 29 100/62 (75) 92 07/14/20 01:40 72 25 99/61 (74) 92 07/14/20 01:35 72 29 99/55 (70) 92 07/14/20 01:30 71 27 87/57 (67) 92 07/14/20 01:15 92.2 69 27 96/59 (71) 93 07/14/20 01:10 68 27 95/58 (70) 92 07/14/20 01:05 68 26 93/63 (73) 92 07/14/20 01:00 92.1 68 26 105/61 (76) 92 07/14/20 01:00 28 93/63 Mechanical Ventilator 100 07/14/20 01:00 28 93/63 Mechanical Ventilator 100 07/14/20 00:55 69 26 98/60 (73) 92 07/14/20 00:50 69 26 86/53 (64) 91 07/14/20 00:45 68 25 87/55 (66) 91 07/14/20 00:40 69 25 87/53 (64) 91 07/14/20 00:35 69 26 90/58 (69) 91 07/14/20 00:30 91.6 69 27 87/59 (68) 91 07/14/20 00:25 70 26 90/52 (65) 91 07/14/20 00:20 68 26 90/56 (67) 91 07/14/20 00:15 91.0 67 23 93/52 (66) 91 07/14/20 00:10 66 23 90/55 (67) 91 07/14/20 00:05 66 22 87/57 (67) 92 07/14/20 00:00 68 07/14/20 00:00 100 07/14/20 00:00 Mechanical Ventilator Mechanical Ventilator Mechanical Ventilator Mechanical Ventilator Mechanical Ventilator 07/14/20 00:00 28 87/57 Mechanical Ventilator 100 07/14/20 00:00 22 87/57 Mechanical Ventilator 100 07/14/20 00:00 90.8 26 90/59 (69) 92 07/13/20 23:55 90.6 65 21 89/56 (67) 92 07/13/20 23:50 64 20 87/53 (64) 92 07/13/20 23:45 64 20 90/57 (68) 91 07/13/20 23:40 61 20 105/56 (72) 90 07/13/20 23:35 62 20 106/61 (76) 88 07/13/20 23:30 90.0 62 21 101/62 (75) 90 07/13/20 23:26 63 31 100 07/13/20 23:25 29 90/56 Mechanical Ventilator 100 07/13/20 23:25 62 25 91/59 (70) 90 07/13/20 23:20 63 25 90/56 (67) 90 07/13/20 23:15 89.7 62 25 93/56 (68) 90 07/13/20 23:10 63 24 95/58 (70) 90 07/13/20 23:05 60 21 107/66 (80) 89 07/13/20 23:03 77/49 07/13/20 23:00 89.5 64 25 81/49 (60) 89 07/13/20 23:00 22 107/66 Mechanical Ventilator 100 07/13/20 22:45 62 11 77/49 (58) 91 07/13/20 22:30 89.3 63 21 83/49 (60) 92 07/13/20 22:21 64 22 84/51 (62) 92 07/13/20 22:15 63 21 82/50 (61) 92 07/13/20 22:03 63 20 85/51 (62) 93 07/13/20 22:01 63 20 85/50 (62) 93 07/13/20 22:00 22 85/50 Mechanical Ventilator 100 07/13/20 22:00 22 85/50 Mechanical Ventilator 100 07/13/20 22:00 89.2 62 20 81/50 (60) 93 07/13/20 21:45 61 10 87/56 (66) 93 07/13/20 21:30 89.3 57 21 93/71 (78) 63 07/13/20 21:15 62 20 89/56 (67) 92 07/13/20 21:00 22 89/56 Mechanical Ventilator 100 07/13/20 21:00 20 89/56 Mechanical Ventilator 100 07/13/20 21:00 89.2 63 17 98/61 (73) 89 07/13/20 20:45 63 23 90/55 (67) 91 07/13/20 20:35 60 21 92/56 (68) 89 07/13/20 20:30 89.2 62 20 85/56 (66) 92 07/13/20 20:15 62 22 88/58 (68) 91 07/13/20 20:09 64 24 91/61 (71) 93 07/13/20 20:00 62 22 85/57 (66) 93 07/13/20 20:00 22 91/61 Mechanical Ventilator 100 07/13/20 20:00 22 91/61 Mechanical Ventilator 100 07/13/20 20:00 Mechanical Ventilator Mechanical Ventilator Mechanical Ventilator Mechanical Ventilator Mechanical Ventilator 07/13/20 20:00 100 07/13/20 20:00 63 07/13/20 19:47 89.1 64 22 80/57 (65) 95 07/13/20 19:45 63 20 82/60 (67) 94 07/13/20 19:30 63 20 90/58 (69) 95 07/13/20 19:15 62 20 101/62 (75) 91 07/13/20 19:05 66 31 100 07/13/20 19:00 18 90/50 Mechanical Ventilator 100 07/13/20 19:00 18 90/58 Mechanical Ventilator 100 07/13/20 18:15 67 22 103/59 (74) 88 07/13/20 18:00 21 104/63 Mechanical Ventilator 100 07/13/20 18:00 21 104/63 Mechanical Ventilator 100.0 07/13/20 17:00 32 137/80 Mechanical Ventilator 100 07/13/20 17:00 21 137/80 Mechanical Ventilator 100 07/13/20 17:00 67 32 137/80 (99) 88 07/13/20 16:00 61 21 121/76 (91) 91 07/13/20 16:00 Mechanical Ventilator Mechanical Ventilator Mechanical Ventilator Mechanical Ventilator Mechanical Ventilator 07/13/20 16:00 65 07/13/20 16:00 100 07/13/20 16:00 21 121/76 Mechanical Ventilator 100 07/13/20 16:00 21 121/76 Mechanical Ventilator 100 07/13/20 15:09 90 29 100 07/13/20 15:00 32 101/68 Mechanical Ventilator 100 07/13/20 15:00 32 101/68 Mechanical Ventilator 100 07/13/20 15:00 67 27 93/68 (76) 88 07/13/20 14:08 70 27 100/67 (78) 84 07/13/20 14:00 27 100/67 Mechanical Ventilator 100 07/13/20 14:00 27 100/67 Mechanical Ventilator 100 07/13/20 13:00 77 33 126/81 (96) 90 07/13/20 13:00 27 126/81 Mechanical Ventilator 84 07/13/20 13:00 33 126/81 Mechanical Ventilator 100 07/13/20 12:00 95.9 78 32 129/71 (90) 74 07/13/20 12:00 79 07/13/20 12:00 33 129/71 Mechanical Ventilator 100 07/13/20 12:00 32 129/71 Mechanical Ventilator 100 07/13/20 12:00 Mechanical Ventilator Mechanical Ventilator Mechanical Ventilator Mechanical Ventilator Mechanical Ventilator 07/13/20 12:00 100 Height (Feet): 5 Height (Inches): 2.00 Weight (Pounds): 138 HEENT: other - orally intubated Respiratory/Chest: other - on ventilator, [id number]%, bilateral chest tubes Cardiovascular: tachycardia Abdomen: soft, non tender, other - Tube feeding Genitourinary: other - Martin catheter, cloudy urine Neurologic/Psychiatric: other - sedated Laboratory Tests Test 07/13/20 22:00 07/14/20 03:20 Urine Color [place] Urine Appearance Turbid Urine pH 5.0 (4.5-8.0) Urine Specific [place] 1.025 (1.005-1.035) Urine Protein 2+ (NEGATIVE) H Urine Glucose (UA) Negative (NEGATIVE) Urine Ketones 1+ (NEGATIVE) H Urine Blood 1+ (NEGATIVE) H Urine Nitrite Positive (NEGATIVE) H Urine Bilirubin Negative (NEGATIVE) Urine Urobilinogen 8 MG/DL (0.0-1.0) H Urine Leukocyte Esterase 1+ (NEGATIVE) H Urine RBC 2-4 /HPF (0 - 2) H Urine WBC 10-15 /HPF (0 - 2) H Urine Squamous Epithelial Cells Occasional /LPF Urine Amorphous Sediment Moderate /LPF (NONE) H Urine Bacteria Many /HPF (NONE) H White Blood Count 6.3 K/UL (4.8-10.8) Red Blood Count 2.97 M/UL (4.20-5.40) L Hemoglobin 8.9 G/DL (12.0-16.0) L Hematocrit 29.7 % (37.0-47.0) L Mean Corpuscular Volume 100 FL (80-99) H Mean Corpuscular Hemoglobin 30.0 PG (27.0-31.0) Mean Corpuscular Hemoglobin Concent 29.9 G/DL (32.0-36.0) L Red Cell Distribution Width 18.3 % (11.6-14.8) H Platelet Count 305 K/UL (150-450) Mean Platelet Volume 9.1 FL (6.5-10.1) Neutrophils (%) (Auto) 78.9 % (45.0-75.0) H Lymphocytes (%) (Auto) 11.4 % (20.0-45.0) L Monocytes (%) (Auto) 6.9 % (1.0-10.0) Eosinophils (%) (Auto) 1.6 % (0.0-3.0) Basophils (%) (Auto) 1.2 % (0.0-2.0) Sodium Level 141 MMOL/L (136-145) Potassium Level 4.7 MMOL/L (3.5-5.1) Chloride Level 106 MMOL/L (98-107) Carbon Dioxide Level 34 MMOL/L (21-32) H Anion Gap 1 mmol/L (5-15) L Blood Urea Nitrogen 17 mg/dL (7-18) Creatinine 0.4 MG/DL (0.55-1.30) L Estimat Glomerular Filtration Rate > 60 mL/min (>60) Glucose Level 134 MG/DL (74-106) H Calcium Level 7.9 MG/DL (8.5-10.1) L Phosphorus Level 3.2 MG/DL (2.5-4.9) Magnesium Level 2.2 MG/DL (1.8-2.4) Total Bilirubin 0.4 MG/DL (0.2-1.0) Aspartate Amino Transf (AST/SGOT) 82 U/L (15-37) H Alanine Aminotransferase (ALT/SGPT) 87 U/L (12-78) H Alkaline Phosphatase 168 U/L (46-116) H C-Reactive Protein, Quantitative 10.4 mg/dL (0.00-0.90) H Pro-B-Type Natriuretic Peptide 1989 pg/mL (0-125) H Total Protein 5.9 G/DL (6.4-8.2) L Albumin 1.0 G/DL (3.4-5.0) L Globulin 4.9 g/dL Albumin/Globulin Ratio 0.2 (1.0-2.7) L Current Medications Medications (Trade) Dose Ordered Sig/Maya Route PRN Reason Start Time Stop Time Status Last Admin Dose Admin Acetaminophen (Tylenol) 500 mg Q4H PRN ORAL Mild Pain (Pain Scale 1-3) 06/18/20 00:15 07/18/20 00:14 07/14/20 09:20 Acetaminophen (Tylenol) 500 mg Q4H PRN ORAL Temp >100.5 06/18/20 00:15 07/18/20 00:14 06/29/20 20:01 Ceftriaxone Sodium 1 gm/ Dextrose 55 ml @ 110 mls/hr Q24H IVPB 07/13/20 23:00 07/20/20 22:59 07/13/20 22:45 Chlorhexidine Gluconate (Sissy-Hex 2%) 1 applic DAILY@2000 TOPIC 06/28/20 20:00 09/26/20 19:59 07/13/20 20:42 Dextrose (Dextrose 50%) 25 ml Q30M PRN IV Hypoglycemia 06/18/20 14:15 09/16/20 14:14 Dextrose (Dextrose 50%) 50 ml Q30M PRN IV Hypoglycemia 06/18/20 14:15 09/16/20 14:14 Docusate Sodium (Colace) 100 mg EVERY 8 HOURS NG 07/02/20 14:00 07/28/20 12:59 07/13/20 20:42 Enoxaparin Sodium (Lovenox) 40 mg DAILY SUBQ 07/12/20 09:00 10/10/20 08:59 07/14/20 08:44 Famotidine (Pepcid I.v.) 20 mg BID IVP 07/10/20 09:00 08/09/20 08:59 07/14/20 08:44 Fentanyl Citrate 1000 mcg/Sodium Chloride 120 ml @ 0 mls/hr Q24H PRN IV SEDATION 07/12/20 09:30 07/19/20 09:29 07/13/20 23:25 Haloperidol Lactate (Haldol) 10 mg Q6H PRN IM Agitation 06/23/20 11:30 08/07/20 11:29 06/23/20 11:34 Insulin Aspart (NovoLOG) while NPO Q6HR SUBQ 06/18/20 18:00 09/16/20 17:59 07/13/20 23:46 Midazolam HCl 200 ml @ 0 mls/hr Q24H PRN IV SEDATION 07/11/20 00:00 07/18/20 00:00 07/14/20 04:02 Norepinephrine Bitartrate 250 ml @ 0 mls/hr Q24H IV 07/13/20 23:00 07/16/20 22:54 07/13/20 23:03 Sodium Chloride 1,000 ml @ 50 mls/hr Q20H IV 06/26/20 08:00 07/26/20 07:59 07/13/20 19:44 Vitamin D (Vitamin D) 2,000 unit DAILY GT 06/29/20 10:30 07/29/20 10:29 07/14/20 08:44 Raji Turpin MD Jul 14, 2020 11:20
--- NOTE | 2020-07-14 12:00 | NUR ---
NURSE NOTES: Pt with Fever T101,unstable,continue to be tachycardeic,tachypneic,TYlenol 500 mg /OGT given.will increase dose rate of Fentanyl to maintain RASS -2.
--- NOTE | 2020-07-14 12:38 | Cardiac Electrophysiology PN ---
Assessment/Plan Assessment/Plan 1. Respiratory failure due to COVID pneumonia. Intubated on 100% Fio2. PEEP 12 Echo showed Nl EF 2. Bilateral pneumothoraces. S/P bilateral chest tube placement with minimal drainage but large air leak 3. Troponin elevation. Levels are low and flat could be demand ischemia vs Renal failure EKG shows sinus tachycardia at 110 beats per minute. 4. Hypernatremia with sodium of 155. Resolved 5. Hypotension. Off Levophed now. Off Coreg and Lasix 6. DNR DW RN Subjective Subjective Intubated in ICU on Fentanyl and Versed drip. Chest tubes have no drainage On 100% Fio2, PEEP 12.Off Levophed DNR. No events Objective Last 24 Hour Vital Signs Date Time Temp Pulse Resp B/P (MAP) Pulse Ox O2 Delivery O2 Flow Rate FiO2 07/14/20 12:15 31 107/67 Mechanical Ventilator 100 07/14/20 12:00 32 107/67 Mechanical Ventilator 100 07/14/20 12:00 31 107/67 Mechanical Ventilator 100 07/14/20 11:45 41 93/65 Mechanical Ventilator 100 07/14/20 11:30 41 100/66 100 07/14/20 11:00 132 41 92/61 (71) 71 07/14/20 11:00 38 92/61 Mechanical Ventilator 100 07/14/20 11:00 38 92/61 Mechanical Ventilator 100 07/14/20 10:00 38 103/58 Mechanical Ventilator 100 07/14/20 10:00 38 103/58 Mechanical Ventilator 100 07/14/20 10:00 136 38 103/58 (73) 60 07/14/20 09:50 100.1 07/14/20 09:00 36 131/68 Mechanical Ventilator 100 07/14/20 09:00 36 131/68 Mechanical Ventilator 100 07/14/20 09:00 100.6 135 35 131/68 (89) 52 07/14/20 08:00 Mechanical Ventilator Mechanical Ventilator Mechanical Ventilator Mechanical Ventilator Mechanical Ventilator 07/14/20 08:00 36 134/64 Mechanical Ventilator 100 07/14/20 08:00 36 134/64 Mechanical Ventilator 100 07/14/20 08:00 122 07/14/20 08:00 99.0 127 36 134/64 (87) 59 07/14/20 08:00 100 07/14/20 07:36 127 35 100 07/14/20 06:45 98.7 116 35 123/63 (83) 68 07/14/20 06:40 115 35 120/64 (82) 68 07/14/20 06:35 114 34 132/68 (89) 67 07/14/20 06:30 113 34 124/65 (84) 67 07/14/20 06:25 112 35 128/63 (84) 67 07/14/20 06:20 110 35 127/62 (83) 70 07/14/20 06:15 108 35 125/64 (84) 72 07/14/20 06:10 106 34 115/69 (84) 72 07/14/20 06:05 105 34 128/64 (85) 71 07/14/20 06:00 28 123/64 Mechanical Ventilator 100 07/14/20 06:00 28 123/64 Mechanical Ventilator 100 07/14/20 06:00 97.7 106 33 126/60 (82) 66 07/14/20 05:55 104 34 129/76 (93) 65 07/14/20 05:50 102 35 125/75 (92) 66 07/14/20 05:45 101 34 139/83 (101) 78 07/14/20 05:40 98 33 108/54 (72) 79 07/14/20 05:35 97 33 104/53 (70) 80 07/14/20 05:30 97 34 105/53 (70) 80 07/14/20 05:25 96 34 110/60 (77) 80 07/14/20 05:20 95 34 100/68 (79) 82 07/14/20 05:15 95 33 102/49 (66) 82 07/14/20 05:10 94 34 96/57 (70) 83 07/14/20 05:05 94 33 98/55 (69) 82 07/14/20 05:00 96.8 93 31 102/64 (77) 83 07/14/20 05:00 28 96/55 Mechanical Ventilator 100 07/14/20 05:00 28 96/65 Mechanical Ventilator 100 07/14/20 04:55 93 33 100/54 (69) 82 07/14/20 04:50 93 32 108/58 (75) 80 07/14/20 04:45 93 32 103/58 (73) 75 07/14/20 04:40 93 32 121/65 (83) 71 07/14/20 04:35 91 32 114/61 (78) 73 07/14/20 04:30 87 31 128/78 (95) 82 07/14/20 04:25 87 32 92/61 (71) 86 07/14/20 04:20 87 32 101/64 (76) 88 07/14/20 04:15 95.8 87 30 95/58 (70) 88 07/14/20 04:10 86 29 96/58 (71) 89 07/14/20 04:05 85 26 96/57 (70) 90 07/14/20 04:02 25 98/55 Mechanical Ventilator 100 07/14/20 04:00 85 25 98/55 (69) 89 07/14/20 04:00 Mechanical Ventilator Mechanical Ventilator Mechanical Ventilator Mechanical Ventilator Mechanical Ventilator 07/14/20 04:00 100 07/14/20 04:00 77 07/14/20 04:00 28 101/54 Mechanical Ventilator 100 07/14/20 04:00 28 101/54 Mechanical Ventilator 100 07/14/20 03:55 85 21 112/57 (75) 88 07/14/20 03:50 84 26 109/60 (76) 84 07/14/20 03:45 87 27 119/63 (81) 77 07/14/20 03:40 83 27 112/93 (99) 82 07/14/20 03:40 88 32 100 07/14/20 03:35 81 30 112/71 (85) 82 07/14/20 03:30 95.1 79 32 111/66 (81) 90 07/14/20 03:25 81 23 99/57 (71) 90 07/14/20 03:20 81 22 97/61 (73) 90 07/14/20 03:15 80 27 100/57 (71) 91 07/14/20 03:10 80 30 101/59 (73) 91 07/14/20 03:05 79 28 100/61 (74) 91 07/14/20 03:00 28 98/64 Mechanical Ventilator 100 07/14/20 03:00 28 98/64 Mechanical Ventilator 100 07/14/20 03:00 94.3 79 22 99/60 (73) 91 07/14/20 02:55 78 24 102/59 (73) 91 07/14/20 02:50 78 26 100/59 (73) 92 07/14/20 02:45 77 26 99/58 (72) 92 07/14/20 02:40 77 27 97/62 (74) 92 07/14/20 02:35 76 28 100/58 (72) 92 07/14/20 02:30 93.6 76 25 96/57 (70) 92 07/14/20 02:25 75 25 99/56 (70) 92 07/14/20 02:20 75 25 102/60 (74) 90 07/14/20 02:15 74 27 107/65 (79) 88 07/14/20 02:10 72 28 125/67 (86) 88 07/14/20 02:05 93.2 72 26 121/78 (92) 93 07/14/20 02:00 72 29 99/58 (72) 93 07/14/20 02:00 27 121/78 Mechanical Ventilator 100 07/14/20 02:00 27 121/78 Mechanical Ventilator 100 07/14/20 01:55 72 29 99/59 (72) 93 07/14/20 01:50 72 29 101/57 (72) 93 07/14/20 01:45 92.7 72 29 100/62 (75) 92 07/14/20 01:40 72 25 99/61 (74) 92 07/14/20 01:35 72 29 99/55 (70) 92 07/14/20 01:30 71 27 87/57 (67) 92 07/14/20 01:15 92.2 69 27 96/59 (71) 93 07/14/20 01:10 68 27 95/58 (70) 92 07/14/20 01:05 68 26 93/63 (73) 92 07/14/20 01:00 92.1 68 26 105/61 (76) 92 07/14/20 01:00 28 93/63 Mechanical Ventilator 100 07/14/20 01:00 28 93/63 Mechanical Ventilator 100 07/14/20 00:55 69 26 98/60 (73) 92 07/14/20 00:50 69 26 86/53 (64) 91 07/14/20 00:45 68 25 87/55 (66) 91 07/14/20 00:40 69 25 87/53 (64) 91 07/14/20 00:35 69 26 90/58 (69) 91 07/14/20 00:30 91.6 69 27 87/59 (68) 91 07/14/20 00:25 70 26 90/52 (65) 91 07/14/20 00:20 68 26 90/56 (67) 91 07/14/20 00:15 91.0 67 23 93/52 (66) 91 07/14/20 00:10 66 23 90/55 (67) 91 07/14/20 00:05 66 22 87/57 (67) 92 07/14/20 00:00 68 07/14/20 00:00 100 07/14/20 00:00 Mechanical Ventilator Mechanical Ventilator Mechanical Ventilator Mechanical Ventilator Mechanical Ventilator 07/14/20 00:00 28 87/57 Mechanical Ventilator 100 07/14/20 00:00 22 87/57 Mechanical Ventilator 100 07/14/20 00:00 90.8 26 90/59 (69) 92 07/13/20 23:55 90.6 65 21 89/56 (67) 92 07/13/20 23:50 64 20 87/53 (64) 92 07/13/20 23:45 64 20 90/57 (68) 91 07/13/20 23:40 61 20 105/56 (72) 90 07/13/20 23:35 62 20 106/61 (76) 88 07/13/20 23:30 90.0 62 21 101/62 (75) 90 07/13/20 23:26 63 31 100 07/13/20 23:25 29 90/56 Mechanical Ventilator 100 07/13/20 23:25 62 25 91/59 (70) 90 07/13/20 23:20 63 25 90/56 (67) 90 07/13/20 23:15 89.7 62 25 93/56 (68) 90 07/13/20 23:10 63 24 95/58 (70) 90 07/13/20 23:05 60 21 107/66 (80) 89 07/13/20 23:03 77/49 07/13/20 23:00 89.5 64 25 81/49 (60) 89 07/13/20 23:00 22 107/66 Mechanical Ventilator 100 07/13/20 22:45 62 11 77/49 (58) 91 07/13/20 22:30 89.3 63 21 83/49 (60) 92 07/13/20 22:21 64 22 84/51 (62) 92 07/13/20 22:15 63 21 82/50 (61) 92 07/13/20 22:03 63 20 85/51 (62) 93 07/13/20 22:01 63 20 85/50 (62) 93 07/13/20 22:00 22 85/50 Mechanical Ventilator 100 07/13/20 22:00 22 85/50 Mechanical Ventilator 100 07/13/20 22:00 89.2 62 20 81/50 (60) 93 07/13/20 21:45 61 10 87/56 (66) 93 07/13/20 21:30 89.3 57 21 93/71 (78) 63 07/13/20 21:15 62 20 89/56 (67) 92 07/13/20 21:00 22 89/56 Mechanical Ventilator 100 07/13/20 21:00 20 89/56 Mechanical Ventilator 100 07/13/20 21:00 89.2 63 17 98/61 (73) 89 07/13/20 20:45 63 23 90/55 (67) 91 07/13/20 20:35 60 21 92/56 (68) 89 07/13/20 20:30 89.2 62 20 85/56 (66) 92 07/13/20 20:15 62 22 88/58 (68) 91 07/13/20 20:09 64 24 91/61 (71) 93 07/13/20 20:00 62 22 85/57 (66) 93 07/13/20 20:00 22 91/61 Mechanical Ventilator 100 07/13/20 20:00 22 91/61 Mechanical Ventilator 100 07/13/20 20:00 Mechanical Ventilator Mechanical Ventilator Mechanical Ventilator Mechanical Ventilator Mechanical Ventilator 07/13/20 20:00 100 07/13/20 20:00 63 07/13/20 19:47 89.1 64 22 80/57 (65) 95 07/13/20 19:45 63 20 82/60 (67) 94 07/13/20 19:30 63 20 90/58 (69) 95 07/13/20 19:15 62 20 101/62 (75) 91 07/13/20 19:05 66 31 100 07/13/20 19:00 18 90/50 Mechanical Ventilator 100 07/13/20 19:00 18 90/58 Mechanical Ventilator 100 07/13/20 18:15 67 22 103/59 (74) 88 07/13/20 18:00 21 104/63 Mechanical Ventilator 100 07/13/20 18:00 21 104/63 Mechanical Ventilator 100.0 07/13/20 17:00 32 137/80 Mechanical Ventilator 100 07/13/20 17:00 21 137/80 Mechanical Ventilator 100 07/13/20 17:00 67 32 137/80 (99) 88 07/13/20 16:00 61 21 121/76 (91) 91 07/13/20 16:00 Mechanical Ventilator Mechanical Ventilator Mechanical Ventilator Mechanical Ventilator Mechanical Ventilator 07/13/20 16:00 65 07/13/20 16:00 100 07/13/20 16:00 21 121/76 Mechanical Ventilator 100 07/13/20 16:00 21 121/76 Mechanical Ventilator 100 07/13/20 15:09 90 29 100 07/13/20 15:00 32 101/68 Mechanical Ventilator 100 07/13/20 15:00 32 101/68 Mechanical Ventilator 100 07/13/20 15:00 67 27 93/68 (76) 88 07/13/20 14:08 70 27 100/67 (78) 84 07/13/20 14:00 27 100/67 Mechanical Ventilator 100 07/13/20 14:00 27 100/67 Mechanical Ventilator 100 07/13/20 13:00 77 33 126/81 (96) 90 07/13/20 13:00 27 126/81 Mechanical Ventilator 84 07/13/20 13:00 33 126/81 Mechanical Ventilator 100 Intake and Output 07/13/20 07/14/20 19:00 07:00 Intake Total 1688.4 ml 1002.75 ml Output Total 1150 ml 310 ml Balance 538.4 ml 692.75 ml Intake Free Water 200 ml 100 ml IV Total 768.4 ml 847.75 ml Tube Feeding 660 ml 55 ml Other 60 ml Output Urine Total 1075 ml 180 ml Chest Tube Drainage Total 75 ml 130 ml # Bowel Movements 2 Laboratory Tests Test 07/13/20 22:00 07/14/20 03:20 Urine Color Ellis Urine Appearance Turbid Urine pH 5.0 (4.5-8.0) Urine Specific [place] 1.025 (1.005-1.035) Urine Protein 2+ (NEGATIVE) H Urine Glucose (UA) Negative (NEGATIVE) Urine Ketones 1+ (NEGATIVE) H Urine Blood 1+ (NEGATIVE) H Urine Nitrite Positive (NEGATIVE) H Urine Bilirubin Negative (NEGATIVE) Urine Urobilinogen 8 MG/DL (0.0-1.0) H Urine Leukocyte Esterase 1+ (NEGATIVE) H Urine RBC 2-4 /HPF (0 - 2) H Urine WBC 10-15 /HPF (0 - 2) H Urine Squamous Epithelial Cells Occasional /LPF Urine Amorphous Sediment Moderate /LPF (NONE) H Urine Bacteria Many /HPF (NONE) H White Blood Count 6.3 K/UL (4.8-10.8) Red Blood Count 2.97 M/UL (4.20-5.40) L Hemoglobin 8.9 G/DL (12.0-16.0) L Hematocrit 29.7 % (37.0-47.0) L Mean Corpuscular Volume 100 FL (80-99) H Mean Corpuscular Hemoglobin 30.0 PG (27.0-31.0) Mean Corpuscular Hemoglobin Concent 29.9 G/DL (32.0-36.0) L Red Cell Distribution Width 18.3 % (11.6-14.8) H Platelet Count 305 K/UL (150-450) Mean Platelet Volume 9.1 FL (6.5-10.1) Neutrophils (%) (Auto) 78.9 % (45.0-75.0) H Lymphocytes (%) (Auto) 11.4 % (20.0-45.0) L Monocytes (%) (Auto) 6.9 % (1.0-10.0) Eosinophils (%) (Auto) 1.6 % (0.0-3.0) Basophils (%) (Auto) 1.2 % (0.0-2.0) Sodium Level 141 MMOL/L (136-145) Potassium Level 4.7 MMOL/L (3.5-5.1) Chloride Level 106 MMOL/L (98-107) Carbon Dioxide Level 34 MMOL/L (21-32) H Anion Gap 1 mmol/L (5-15) L Blood Urea Nitrogen 17 mg/dL (7-18) Creatinine 0.4 MG/DL (0.55-1.30) L Estimat Glomerular Filtration Rate > 60 mL/min (>60) Glucose Level 134 MG/DL (74-106) H Calcium Level 7.9 MG/DL (8.5-10.1) L Phosphorus Level 3.2 MG/DL (2.5-4.9) Magnesium Level 2.2 MG/DL (1.8-2.4) Total Bilirubin 0.4 MG/DL (0.2-1.0) Aspartate Amino Transf (AST/SGOT) 82 U/L (15-37) H Alanine Aminotransferase (ALT/SGPT) 87 U/L (12-78) H Alkaline Phosphatase 168 U/L (46-116) H C-Reactive Protein, Quantitative 10.4 mg/dL (0.00-0.90) H Pro-B-Type Natriuretic Peptide 1989 pg/mL (0-125) H Total Protein 5.9 G/DL (6.4-8.2) L Albumin 1.0 G/DL (3.4-5.0) L Globulin 4.9 g/dL Albumin/Globulin Ratio 0.2 (1.0-2.7) L Objective HEAD AND NECK: No JVD. Orally intubated LUNGS: Coarse rhonchi bilaterally. Bilateral chest tubes in. CARDIOVASCULAR: Regular S1 and S2 and no murmur ABDOMEN: Soft. EXTREMITIES: No pitting edema. aMxwell Carreon MD Jul 14, 2020 12:38
[2020-07-14] MEDS: fentaNYL Citrate 1,000 MCG in NS 100 ML IV PRN (12:40)
--- NOTE | 2020-07-14 13:23 | Pulmonology Progress Note ---
Subjective ROS Limited/Unobtainable: Yes Interval Events: Remains intubated; bilateral chest tubes in place Constitutional: Reports: fever, other - Jg=870.6 HEENT: Repors: no symptoms Respiratory: Reports: shortness of breath Cardiovascular: Reports: no symptoms Gastrointestinal/Abdominal: Reports: no symptoms Allergies: Coded Allergies: No Known Allergies (Unverified , 06/17/20) All Systems: reviewed and negative except above Objective Last 24 Hour Vital Signs Date Time Temp Pulse Resp B/P (MAP) Pulse Ox O2 Delivery O2 Flow Rate FiO2 07/14/20 12:45 32 78/50 Mechanical Ventilator 100 07/14/20 12:40 33 78/53 Mechanical Ventilator 100 07/14/20 12:30 33 78/53 Mechanical Ventilator 100 07/14/20 12:15 31 107/67 Mechanical Ventilator 100 07/14/20 12:00 32 107/67 Mechanical Ventilator 100 07/14/20 12:00 31 107/67 Mechanical Ventilator 100 07/14/20 11:45 41 93/65 Mechanical Ventilator 100 07/14/20 11:30 41 100/66 100 07/14/20 11:00 132 41 92/61 (71) 71 07/14/20 11:00 38 92/61 Mechanical Ventilator 100 07/14/20 11:00 38 92/61 Mechanical Ventilator 100 07/14/20 10:00 38 103/58 Mechanical Ventilator 100 07/14/20 10:00 38 103/58 Mechanical Ventilator 100 07/14/20 10:00 136 38 103/58 (73) 60 07/14/20 09:50 100.1 07/14/20 09:00 36 131/68 Mechanical Ventilator 100 07/14/20 09:00 36 131/68 Mechanical Ventilator 100 07/14/20 09:00 100.6 135 35 131/68 (89) 52 07/14/20 08:00 Mechanical Ventilator Mechanical Ventilator Mechanical Ventilator Mechanical Ventilator Mechanical Ventilator 07/14/20 08:00 36 134/64 Mechanical Ventilator 100 07/14/20 08:00 36 134/64 Mechanical Ventilator 100 07/14/20 08:00 122 07/14/20 08:00 99.0 127 36 134/64 (87) 59 07/14/20 08:00 100 07/14/20 07:36 127 35 100 07/14/20 06:45 98.7 116 35 123/63 (83) 68 07/14/20 06:40 115 35 120/64 (82) 68 07/14/20 06:35 114 34 132/68 (89) 67 07/14/20 06:30 113 34 124/65 (84) 67 07/14/20 06:25 112 35 128/63 (84) 67 07/14/20 06:20 110 35 127/62 (83) 70 07/14/20 06:15 108 35 125/64 (84) 72 07/14/20 06:10 106 34 115/69 (84) 72 07/14/20 06:05 105 34 128/64 (85) 71 07/14/20 06:00 28 123/64 Mechanical Ventilator 100 07/14/20 06:00 28 123/64 Mechanical Ventilator 100 07/14/20 06:00 97.7 106 33 126/60 (82) 66 07/14/20 05:55 104 34 129/76 (93) 65 07/14/20 05:50 102 35 125/75 (92) 66 07/14/20 05:45 101 34 139/83 (101) 78 07/14/20 05:40 98 33 108/54 (72) 79 07/14/20 05:35 97 33 104/53 (70) 80 07/14/20 05:30 97 34 105/53 (70) 80 07/14/20 05:25 96 34 110/60 (77) 80 07/14/20 05:20 95 34 100/68 (79) 82 07/14/20 05:15 95 33 102/49 (66) 82 07/14/20 05:10 94 34 96/57 (70) 83 07/14/20 05:05 94 33 98/55 (69) 82 07/14/20 05:00 96.8 93 31 102/64 (77) 83 07/14/20 05:00 28 96/55 Mechanical Ventilator 100 07/14/20 05:00 28 96/65 Mechanical Ventilator 100 07/14/20 04:55 93 33 100/54 (69) 82 07/14/20 04:50 93 32 108/58 (75) 80 07/14/20 04:45 93 32 103/58 (73) 75 07/14/20 04:40 93 32 121/65 (83) 71 07/14/20 04:35 91 32 114/61 (78) 73 07/14/20 04:30 87 31 128/78 (95) 82 07/14/20 04:25 87 32 92/61 (71) 86 07/14/20 04:20 87 32 101/64 (76) 88 07/14/20 04:15 95.8 87 30 95/58 (70) 88 07/14/20 04:10 86 29 96/58 (71) 89 07/14/20 04:05 85 26 96/57 (70) 90 07/14/20 04:02 25 98/55 Mechanical Ventilator 100 07/14/20 04:00 85 25 98/55 (69) 89 07/14/20 04:00 Mechanical Ventilator Mechanical Ventilator Mechanical Ventilator Mechanical Ventilator Mechanical Ventilator 07/14/20 04:00 100 07/14/20 04:00 77 07/14/20 04:00 28 101/54 Mechanical Ventilator 100 07/14/20 04:00 28 101/54 Mechanical Ventilator 100 07/14/20 03:55 85 21 112/57 (75) 88 07/14/20 03:50 84 26 109/60 (76) 84 07/14/20 03:45 87 27 119/63 (81) 77 07/14/20 03:40 83 27 112/93 (99) 82 07/14/20 03:40 88 32 100 07/14/20 03:35 81 30 112/71 (85) 82 07/14/20 03:30 95.1 79 32 111/66 (81) 90 07/14/20 03:25 81 23 99/57 (71) 90 07/14/20 03:20 81 22 97/61 (73) 90 07/14/20 03:15 80 27 100/57 (71) 91 07/14/20 03:10 80 30 101/59 (73) 91 07/14/20 03:05 79 28 100/61 (74) 91 07/14/20 03:00 28 98/64 Mechanical Ventilator 100 07/14/20 03:00 28 98/64 Mechanical Ventilator 100 07/14/20 03:00 94.3 79 22 99/60 (73) 91 07/14/20 02:55 78 24 102/59 (73) 91 07/14/20 02:50 78 26 100/59 (73) 92 07/14/20 02:45 77 26 99/58 (72) 92 07/14/20 02:40 77 27 97/62 (74) 92 07/14/20 02:35 76 28 100/58 (72) 92 07/14/20 02:30 93.6 76 25 96/57 (70) 92 07/14/20 02:25 75 25 99/56 (70) 92 07/14/20 02:20 75 25 102/60 (74) 90 07/14/20 02:15 74 27 107/65 (79) 88 07/14/20 02:10 72 28 125/67 (86) 88 07/14/20 02:05 93.2 72 26 121/78 (92) 93 07/14/20 02:00 72 29 99/58 (72) 93 07/14/20 02:00 27 121/78 Mechanical Ventilator 100 07/14/20 02:00 27 121/78 Mechanical Ventilator 100 07/14/20 01:55 72 29 99/59 (72) 93 07/14/20 01:50 72 29 101/57 (72) 93 07/14/20 01:45 92.7 72 29 100/62 (75) 92 07/14/20 01:40 72 25 99/61 (74) 92 07/14/20 01:35 72 29 99/55 (70) 92 07/14/20 01:30 71 27 87/57 (67) 92 07/14/20 01:15 92.2 69 27 96/59 (71) 93 07/14/20 01:10 68 27 95/58 (70) 92 07/14/20 01:05 68 26 93/63 (73) 92 07/14/20 01:00 92.1 68 26 105/61 (76) 92 07/14/20 01:00 28 93/63 Mechanical Ventilator 100 07/14/20 01:00 28 93/63 Mechanical Ventilator 100 07/14/20 00:55 69 26 98/60 (73) 92 07/14/20 00:50 69 26 86/53 (64) 91 07/14/20 00:45 68 25 87/55 (66) 91 07/14/20 00:40 69 25 87/53 (64) 91 07/14/20 00:35 69 26 90/58 (69) 91 07/14/20 00:30 91.6 69 27 87/59 (68) 91 07/14/20 00:25 70 26 90/52 (65) 91 07/14/20 00:20 68 26 90/56 (67) 91 07/14/20 00:15 91.0 67 23 93/52 (66) 91 07/14/20 00:10 66 23 90/55 (67) 91 07/14/20 00:05 66 22 87/57 (67) 92 07/14/20 00:00 68 07/14/20 00:00 100 07/14/20 00:00 Mechanical Ventilator Mechanical Ventilator Mechanical Ventilator Mechanical Ventilator Mechanical Ventilator 07/14/20 00:00 28 87/57 Mechanical Ventilator 100 07/14/20 00:00 22 87/57 Mechanical Ventilator 100 07/14/20 00:00 90.8 26 90/59 (69) 92 07/13/20 23:55 90.6 65 21 89/56 (67) 92 07/13/20 23:50 64 20 87/53 (64) 92 07/13/20 23:45 64 20 90/57 (68) 91 07/13/20 23:40 61 20 105/56 (72) 90 07/13/20 23:35 62 20 106/61 (76) 88 07/13/20 23:30 90.0 62 21 101/62 (75) 90 07/13/20 23:26 63 31 100 07/13/20 23:25 29 90/56 Mechanical Ventilator 100 07/13/20 23:25 62 25 91/59 (70) 90 07/13/20 23:20 63 25 90/56 (67) 90 07/13/20 23:15 89.7 62 25 93/56 (68) 90 07/13/20 23:10 63 24 95/58 (70) 90 07/13/20 23:05 60 21 107/66 (80) 89 07/13/20 23:03 77/49 07/13/20 23:00 89.5 64 25 81/49 (60) 89 07/13/20 23:00 22 107/66 Mechanical Ventilator 100 07/13/20 22:45 62 11 77/49 (58) 91 07/13/20 22:30 89.3 63 21 83/49 (60) 92 07/13/20 22:21 64 22 84/51 (62) 92 07/13/20 22:15 63 21 82/50 (61) 92 07/13/20 22:03 63 20 85/51 (62) 93 07/13/20 22:01 63 20 85/50 (62) 93 07/13/20 22:00 22 85/50 Mechanical Ventilator 100 07/13/20 22:00 22 85/50 Mechanical Ventilator 100 07/13/20 22:00 89.2 62 20 81/50 (60) 93 07/13/20 21:45 61 10 87/56 (66) 93 07/13/20 21:30 89.3 57 21 93/71 (78) 63 07/13/20 21:15 62 20 89/56 (67) 92 07/13/20 21:00 22 89/56 Mechanical Ventilator 100 07/13/20 21:00 20 89/56 Mechanical Ventilator 100 07/13/20 21:00 89.2 63 17 98/61 (73) 89 07/13/20 20:45 63 23 90/55 (67) 91 07/13/20 20:35 60 21 92/56 (68) 89 07/13/20 20:30 89.2 62 20 85/56 (66) 92 07/13/20 20:15 62 22 88/58 (68) 91 07/13/20 20:09 64 24 91/61 (71) 93 07/13/20 20:00 62 22 85/57 (66) 93 07/13/20 20:00 22 91/61 Mechanical Ventilator 100 07/13/20 20:00 22 91/61 Mechanical Ventilator 100 07/13/20 20:00 Mechanical Ventilator Mechanical Ventilator Mechanical Ventilator Mechanical Ventilator Mechanical Ventilator 07/13/20 20:00 100 07/13/20 20:00 63 07/13/20 19:47 89.1 64 22 80/57 (65) 95 07/13/20 19:45 63 20 82/60 (67) 94 07/13/20 19:30 63 20 90/58 (69) 95 07/13/20 19:15 62 20 101/62 (75) 91 07/13/20 19:05 66 31 100 07/13/20 19:00 18 90/50 Mechanical Ventilator 100 07/13/20 19:00 18 90/58 Mechanical Ventilator 100 07/13/20 18:15 67 22 103/59 (74) 88 07/13/20 18:00 21 104/63 Mechanical Ventilator 100 07/13/20 18:00 21 104/63 Mechanical Ventilator 100.0 07/13/20 17:00 32 137/80 Mechanical Ventilator 100 07/13/20 17:00 21 137/80 Mechanical Ventilator 100 07/13/20 17:00 67 32 137/80 (99) 88 07/13/20 16:00 61 21 121/76 (91) 91 07/13/20 16:00 Mechanical Ventilator Mechanical Ventilator Mechanical Ventilator Mechanical Ventilator Mechanical Ventilator 07/13/20 16:00 65 07/13/20 16:00 100 07/13/20 16:00 21 121/76 Mechanical Ventilator 100 07/13/20 16:00 21 121/76 Mechanical Ventilator 100 07/13/20 15:09 90 29 100 07/13/20 15:00 32 101/68 Mechanical Ventilator 100 07/13/20 15:00 32 101/68 Mechanical Ventilator 100 07/13/20 15:00 67 27 93/68 (76) 88 07/13/20 14:08 70 27 100/67 (78) 84 07/13/20 14:00 27 100/67 Mechanical Ventilator 100 07/13/20 14:00 27 100/67 Mechanical Ventilator 100 Intake and Output 07/13/20 07/14/20 19:00 07:00 Intake Total 1688.4 ml 1002.75 ml Output Total 1150 ml 310 ml Balance 538.4 ml 692.75 ml Intake Free Water 200 ml 100 ml IV Total 768.4 ml 847.75 ml Tube Feeding 660 ml 55 ml Other 60 ml Output Urine Total 1075 ml 180 ml Chest Tube Drainage Total 75 ml 130 ml # Bowel Movements 2 General Appearance: no acute distress HEENT: atraumatic Respiratory: crackles/rales Cardiovascular: normal rate Abdomen: soft, non tender Laboratory Tests 07/13/20 22:00: Urine Color Webb, Urine Appearance Turbid, Urine pH 5.0, Urine Specific [place] 1.025, Urine Protein 2+H, Urine Glucose (UA) Negative, Urine Ketones 1+H , Urine Blood 1+H, Urine Nitrite PositiveH, Urine Bilirubin Negative, Urine Urobilinogen 8H, Urine Leukocyte Esterase 1+H, Urine RBC 2-4H, Urine WBC 10-15H, Urine Squamous Epithelial Cells Occasional, Urine Amorphous Sediment ModerateH, Urine Bacteria ManyH 07/14/20 03:20: White Blood Count 6.3, Red Blood Count 2.97L, Hemoglobin 8.9L, Hematocrit 29.7L, Mean Corpuscular Volume 100H, Mean Corpuscular Hemoglobin 30.0, Mean Corpuscular Hemoglobin Concent 29.9L, Red Cell Distribution Width 18.3H, Platelet Count 305, Mean Platelet Volume 9.1, Neutrophils (%) (Auto) 78.9H, Lymphocytes (%) (Auto) 11.4L, Monocytes (%) (Auto) 6.9, Eosinophils (%) (Auto) 1.6, Basophils (%) (Auto) 1.2, Sodium Level 141, Potassium Level 4.7, Chloride Level 106, Carbon Dioxide Level 34H, Anion Gap 1L, Blood Urea Nitrogen 17, Creatinine 0.4L, Estimat Glomerular Filtration Rate > 60, Glucose Level 134H, Calcium Level 7.9L, Phosphorus Level 3.2, Magnesium Level 2.2, Total Bilirubin 0.4, Aspartate Amino Transf (AST/SGOT) 82H, Alanine Aminotransferase (ALT/SGPT) 87H, Alkaline Phosphatase 168H, C-Reactive Protein, Quantitative 10.4H, Pro-B-Type Natriuretic Peptide 1989H, Total Protein 5.9L, Albumin 1.0L, Globulin 4.9, Albumin/Globulin Ratio 0.2L Current Medications Medications (Trade) Dose Ordered Sig/Maya Route PRN Reason Start Time Stop Time Status Last Admin Dose Admin Acetaminophen (Tylenol) 500 mg Q4H PRN ORAL Mild Pain (Pain Scale 1-3) 06/18/20 00:15 07/18/20 00:14 07/14/20 09:20 Acetaminophen (Tylenol) 500 mg Q4H PRN ORAL Temp >100.5 06/18/20 00:15 07/18/20 00:14 06/29/20 20:01 Ceftriaxone Sodium 1 gm/ Dextrose 55 ml @ 110 mls/hr Q24H IVPB 07/13/20 23:00 07/20/20 22:59 07/13/20 22:45 Chlorhexidine Gluconate (Sissy-Hex 2%) 1 applic DAILY@2000 TOPIC 06/28/20 20:00 09/26/20 19:59 07/13/20 20:42 Dextrose (Dextrose 50%) 25 ml Q30M PRN IV Hypoglycemia 06/18/20 14:15 09/16/20 14:14 Dextrose (Dextrose 50%) 50 ml Q30M PRN IV Hypoglycemia 06/18/20 14:15 09/16/20 14:14 Docusate Sodium (Colace) 100 mg EVERY 8 HOURS NG 07/02/20 14:00 07/28/20 12:59 07/13/20 20:42 Enoxaparin Sodium (Lovenox) 40 mg DAILY SUBQ 07/12/20 09:00 10/10/20 08:59 07/14/20 08:44 Famotidine (Pepcid I.v.) 20 mg BID IVP 07/10/20 09:00 08/09/20 08:59 07/14/20 08:44 Fentanyl Citrate 250 ml @ 0 mls/hr Q24H PRN IV SEDATION 07/14/20 18:00 07/16/20 17:59 Fentanyl Citrate 1000 mcg/Sodium Chloride 120 ml @ 0 mls/hr Q24H PRN IV SEDATION 07/12/20 09:30 07/14/20 20:00 07/14/20 12:40 Haloperidol Lactate (Haldol) 10 mg Q6H PRN IM Agitation 06/23/20 11:30 08/07/20 11:29 06/23/20 11:34 Insulin Aspart (NovoLOG) while NPO Q6HR SUBQ 06/18/20 18:00 09/16/20 17:59 07/14/20 12:41 Midazolam HCl 200 ml @ 0 mls/hr Q24H PRN IV SEDATION 07/11/20 00:00 07/18/20 00:00 07/14/20 04:02 Norepinephrine Bitartrate 250 ml @ 0 mls/hr Q24H IV 07/13/20 23:00 07/16/20 22:54 07/13/20 23:03 Sodium Chloride 1,000 ml @ 50 mls/hr Q20H IV 06/26/20 08:00 07/26/20 07:59 07/13/20 19:44 Vitamin D (Vitamin D) 2,000 unit DAILY GT 06/29/20 10:30 3/10/21 10:29 07/14/20 08:44 Assessment/Plan Assessment/Plan 1. COVID-19 pneumonia -Intubated, on 100% FiO2. PEEP 5-10. -SaO2 73% -On Decadron, s/p remdesivir 2. Leukocytosis -Resolved 3. Elevated D-dimer -On Lovenox 40 subcu QD for DVT prophylaxis 4. Renal insufficiency -Improved 5. Anemia of chronic disease -Hematology oncology following 6. Sepsis -Status post antibiotics, fluid resuscitation 7. Pneumothorax 06/22/20 - b/l subcutaneous emphysema, pneumomediastinum, probable small left pneumothorax & ? trace right pneumothorax. -Ple[place]-ev[place] in place - placed CT by surgery (bilateral) - Will attempt wean when FiO2 decreases - CXR shows R PTX; will advise CT surgery to adjust R CT Discussed with son Now DNAR SaO2 87% on 100% FiO2 and PEEP 12 Grave prognosis Family not ready for withdrawl of care Discussed with son blaine) in great detail previously Discussed with son Kim) 07/13/20; introduced terminal extubation; highly doubt chances or meaningful recovery Charlie Sewell MD Jul 14, 2020 13:23
--- NOTE | 2020-07-14 14:16 | Diagnostic Imaging Report ---
Procedure: XRAY Chest 1v Reason for study: Reason For Exam: DYSPNEA Comparison films: 07/13/2020. FINDINGS: Radiograph is underexposed. Endotracheal tube, NG tube and bilateral chest tubes remain in place as well as right PICC line. Small right apical pneumothorax unchanged. Bilateral infiltrates also not significantly changed given difference in technique. Cardiac and mediastinal silhouette are within normal limits. CP angles are sharp. The bony thorax appear unremarkable. IMPRESSION: No change bilateral infiltrates. Right apical pneumothorax also unchanged.
--- NOTE | 2020-07-14 14:34 | NUR ---
INSUR[facility]: [phone] F: [phone]
--- NOTE | 2020-07-14 15:05 | NUR ---
NURSE NOTES: Pt given a bath to lower fever,turned and repositioned,,noted looking ashen color,personnel monitor on asystole.
--- NOTE | 2020-07-14 15:15 | NUR ---
NURSE NOTES: called Dr Clayton office,spoke with metal punch press operator,informed to give message to Dr Clayton re pt's Cynthia Tamayo expiration.
[2020-07-14] MEDS ORDERED: Tubing IV Secondary IV ONE (16:23)
[2020-07-14] MEDS ORDERED: Sterile Water Irrig 1000ml IRRIG ONE (16:23)
--- NOTE | 2020-07-14 16:24 | NUR ---
NURSE NOTES: Pt pronounced by ER MD Dahiana Colvin.pt's family member Car called but not available,called brother Ethan and informed re pts expiration.said will notify other members of family and will come to view the body.called [facility].
--- NOTE | 2020-07-14 16:50 | Emergency Room Report ---
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 Patient History Now: No Nursing Documentation-PMH Past Medical History: No History, Except For Hx Cardiac Problems: Yes Hx Hypertension: Yes Hx Cancer: No Hx Gastrointestinal Problems: No Hx Neurological Problems: No Physical Exam Vital Signs Date Time Temp Pulse Resp B/P (MAP) Pulse Ox O2 Delivery O2 Flow Rate FiO2 07/10/20 07:00 32 Mechanical Ventilator 100 07/10/20 07:00 123/49 07/10/20 07:00 91 85 07/10/20 08:00 98.0 07/10/20 14:46 100.0 Medical Decision Making Diagnostic Impression: Primary Impression: Pneumonia due to COVID-19 virus Additional Impressions: Elevated d-dimer Renal insufficiency Hypoxia ER Course I was called to the ICU to pronounce patient who was admitted with COVID-19 pneumonia. Patient previously intubated. Patient is DNR in chart. Patient had fixed dilated pupils. Patient was pulseless and had no spontaneous respirations. Patient was pronounced at 1624. Last Vital Signs Date Time Temp Pulse Resp B/P (MAP) Pulse Ox O2 Delivery O2 Flow Rate FiO2 07/14/20 14:00 34 76/53 Mechanical Ventilator 100 07/14/20 13:45 129 73 07/14/20 12:00 101.0 07/13/20 18:00 100.0 Disposition: Condition: Referrals: SOHAN RODRIGUEZ,REFERRING (PCP) Additional Instructions: Please note that this report is being documented using DRAGON technology. This can lead to erroneous entry secondary to incorrect interpretation by the dictating instrument. Tamy Junior M.D. Jul 14, 2020 16:50
[2020-07-14] MEDS ORDERED: fentaNYL 2500mcg/NS 250ml 250 ML IV PRN (18:00)
--- NOTE | 2020-07-14 19:30 | Surgery Progress Note ---
Surgery Progress Note Subjective Procedure Performed 1. right chest tube insertion 2. left chest tube insertion Additional Comments Patient seen and examined bedside earlier today her chest tubes were checked repositioned new Pleur-evac. Filled. Chest x-ray reviewed labs noted. Patient is continuing to deteriorate. As of the time and notes note patient has since . Objective Last 24 Hour Vital Signs Date Time Temp Pulse Resp B/P (MAP) Pulse Ox O2 Delivery O2 Flow Rate FiO2 07/14/20 15:44 100.5 07/14/20 15:00 37 70/53 Mechanical Ventilator 100 07/14/20 15:00 37 70/53 Mechanical Ventilator 100 07/14/20 15:00 125 37 70/53 (59) 79 07/14/20 14:55 126 37 100 07/14/20 14:45 37 72/55 Mechanical Ventilator 100 07/14/20 14:30 36 71/51 Mechanical Ventilator 36 07/14/20 14:15 35 74/53 Mechanical Ventilator 100 07/14/20 14:00 129 36 77/54 (62) 77 07/14/20 14:00 34 76/53 Mechanical Ventilator 100 07/14/20 14:00 34 76/53 Mechanical Ventilator 100 07/14/20 13:45 129 35 80/53 (62) 73 07/14/20 13:30 125 33 70/52 (58) 73 07/14/20 13:00 118 32 67/49 (55) 76 07/14/20 13:00 118 32 67/49 (55) 76 07/14/20 12:45 32 78/50 Mechanical Ventilator 100 07/14/20 12:40 33 78/53 Mechanical Ventilator 100 07/14/20 12:30 33 78/53 Mechanical Ventilator 100 07/14/20 12:15 31 107/67 Mechanical Ventilator 100 07/14/20 12:00 101.0 123 40 116/71 (86) 60 07/14/20 12:00 138 07/14/20 12:00 100 07/14/20 12:00 32 107/67 Mechanical Ventilator 100 07/14/20 12:00 31 107/67 Mechanical Ventilator 100 07/14/20 12:00 Mechanical Ventilator Mechanical Ventilator Mechanical Ventilator Mechanical Ventilator Mechanical Ventilator 07/14/20 11:48 136 39 100 07/14/20 11:45 41 93/65 Mechanical Ventilator 100 07/14/20 11:30 41 100/66 100 07/14/20 11:00 132 41 92/61 (71) 71 07/14/20 11:00 38 92/61 Mechanical Ventilator 100 07/14/20 11:00 38 92/61 Mechanical Ventilator 100 07/14/20 10:00 38 103/58 Mechanical Ventilator 100 07/14/20 10:00 38 103/58 Mechanical Ventilator 100 07/14/20 10:00 136 38 103/58 (73) 60 07/14/20 09:50 100.1 07/14/20 09:00 36 131/68 Mechanical Ventilator 100 07/14/20 09:00 36 131/68 Mechanical Ventilator 100 07/14/20 09:00 100.6 135 35 131/68 (89) 52 07/14/20 08:00 Mechanical Ventilator Mechanical Ventilator Mechanical Ventilator Mechanical Ventilator Mechanical Ventilator 07/14/20 08:00 36 134/64 Mechanical Ventilator 100 07/14/20 08:00 36 134/64 Mechanical Ventilator 100 07/14/20 08:00 122 07/14/20 08:00 99.0 127 36 134/64 (87) 59 07/14/20 08:00 100 07/14/20 07:36 127 35 100 07/14/20 06:45 98.7 116 35 123/63 (83) 68 07/14/20 06:40 115 35 120/64 (82) 68 07/14/20 06:35 114 34 132/68 (89) 67 07/14/20 06:30 113 34 124/65 (84) 67 07/14/20 06:25 112 35 128/63 (84) 67 07/14/20 06:20 110 35 127/62 (83) 70 07/14/20 06:15 108 35 125/64 (84) 72 07/14/20 06:10 106 34 115/69 (84) 72 07/14/20 06:05 105 34 128/64 (85) 71 07/14/20 06:00 28 123/64 Mechanical Ventilator 100 07/14/20 06:00 28 123/64 Mechanical Ventilator 100 07/14/20 06:00 97.7 106 33 126/60 (82) 66 07/14/20 05:55 104 34 129/76 (93) 65 07/14/20 05:50 102 35 125/75 (92) 66 07/14/20 05:45 101 34 139/83 (101) 78 07/14/20 05:40 98 33 108/54 (72) 79 07/14/20 05:35 97 33 104/53 (70) 80 07/14/20 05:30 97 34 105/53 (70) 80 07/14/20 05:25 96 34 110/60 (77) 80 07/14/20 05:20 95 34 100/68 (79) 82 07/14/20 05:15 95 33 102/49 (66) 82 07/14/20 05:10 94 34 96/57 (70) 83 07/14/20 05:05 94 33 98/55 (69) 82 07/14/20 05:00 96.8 93 31 102/64 (77) 83 07/14/20 05:00 28 96/55 Mechanical Ventilator 100 07/14/20 05:00 28 96/65 Mechanical Ventilator 100 07/14/20 04:55 93 33 100/54 (69) 82 07/14/20 04:50 93 32 108/58 (75) 80 07/14/20 04:45 93 32 103/58 (73) 75 07/14/20 04:40 93 32 121/65 (83) 71 07/14/20 04:35 91 32 114/61 (78) 73 07/14/20 04:30 87 31 128/78 (95) 82 07/14/20 04:25 87 32 92/61 (71) 86 07/14/20 04:20 87 32 101/64 (76) 88 07/14/20 04:15 95.8 87 30 95/58 (70) 88 07/14/20 04:10 86 29 96/58 (71) 89 07/14/20 04:05 85 26 96/57 (70) 90 07/14/20 04:02 25 98/55 Mechanical Ventilator 100 07/14/20 04:00 85 25 98/55 (69) 89 07/14/20 04:00 Mechanical Ventilator Mechanical Ventilator Mechanical Ventilator Mechanical Ventilator Mechanical Ventilator 07/14/20 04:00 100 07/14/20 04:00 77 07/14/20 04:00 28 101/54 Mechanical Ventilator 100 07/14/20 04:00 28 101/54 Mechanical Ventilator 100 07/14/20 03:55 85 21 112/57 (75) 88 07/14/20 03:50 84 26 109/60 (76) 84 07/14/20 03:45 87 27 119/63 (81) 77 07/14/20 03:40 83 27 112/93 (99) 82 07/14/20 03:40 88 32 100 07/14/20 03:35 81 30 112/71 (85) 82 07/14/20 03:30 95.1 79 32 111/66 (81) 90 07/14/20 03:25 81 23 99/57 (71) 90 07/14/20 03:20 81 22 97/61 (73) 90 07/14/20 03:15 80 27 100/57 (71) 91 07/14/20 03:10 80 30 101/59 (73) 91 07/14/20 03:05 79 28 100/61 (74) 91 07/14/20 03:00 28 98/64 Mechanical Ventilator 100 07/14/20 03:00 28 98/64 Mechanical Ventilator 100 07/14/20 03:00 94.3 79 22 99/60 (73) 91 07/14/20 02:55 78 24 102/59 (73) 91 07/14/20 02:50 78 26 100/59 (73) 92 07/14/20 02:45 77 26 99/58 (72) 92 07/14/20 02:40 77 27 97/62 (74) 92 07/14/20 02:35 76 28 100/58 (72) 92 07/14/20 02:30 93.6 76 25 96/57 (70) 92 07/14/20 02:25 75 25 99/56 (70) 92 07/14/20 02:20 75 25 102/60 (74) 90 07/14/20 02:15 74 27 107/65 (79) 88 07/14/20 02:10 72 28 125/67 (86) 88 07/14/20 02:05 93.2 72 26 121/78 (92) 93 07/14/20 02:00 72 29 99/58 (72) 93 07/14/20 02:00 27 121/78 Mechanical Ventilator 100 07/14/20 02:00 27 121/78 Mechanical Ventilator 100 07/14/20 01:55 72 29 99/59 (72) 93 07/14/20 01:50 72 29 101/57 (72) 93 07/14/20 01:45 92.7 72 29 100/62 (75) 92 07/14/20 01:40 72 25 99/61 (74) 92 07/14/20 01:35 72 29 99/55 (70) 92 07/14/20 01:30 71 27 87/57 (67) 92 07/14/20 01:15 92.2 69 27 96/59 (71) 93 07/14/20 01:10 68 27 95/58 (70) 92 07/14/20 01:05 68 26 93/63 (73) 92 07/14/20 01:00 92.1 68 26 105/61 (76) 92 07/14/20 01:00 28 93/63 Mechanical Ventilator 100 07/14/20 01:00 28 93/63 Mechanical Ventilator 100 07/14/20 00:55 69 26 98/60 (73) 92 07/14/20 00:50 69 26 86/53 (64) 91 07/14/20 00:45 68 25 87/55 (66) 91 07/14/20 00:40 69 25 87/53 (64) 91 07/14/20 00:35 69 26 90/58 (69) 91 07/14/20 00:30 91.6 69 27 87/59 (68) 91 07/14/20 00:25 70 26 90/52 (65) 91 07/14/20 00:20 68 26 90/56 (67) 91 07/14/20 00:15 91.0 67 23 93/52 (66) 91 07/14/20 00:10 66 23 90/55 (67) 91 07/14/20 00:05 66 22 87/57 (67) 92 07/14/20 00:00 68 07/14/20 00:00 100 07/14/20 00:00 Mechanical Ventilator Mechanical Ventilator Mechanical Ventilator Mechanical Ventilator Mechanical Ventilator 07/14/20 00:00 28 87/57 Mechanical Ventilator 100 07/14/20 00:00 22 87/57 Mechanical Ventilator 100 07/14/20 00:00 90.8 26 90/59 (69) 92 07/13/20 23:55 90.6 65 21 89/56 (67) 92 07/13/20 23:50 64 20 87/53 (64) 92 07/13/20 23:45 64 20 90/57 (68) 91 07/13/20 23:40 61 20 105/56 (72) 90 07/13/20 23:35 62 20 106/61 (76) 88 07/13/20 23:30 90.0 62 21 101/62 (75) 90 07/13/20 23:26 63 31 100 07/13/20 23:25 29 90/56 Mechanical Ventilator 100 07/13/20 23:25 62 25 91/59 (70) 90 07/13/20 23:20 63 25 90/56 (67) 90 07/13/20 23:15 89.7 62 25 93/56 (68) 90 07/13/20 23:10 63 24 95/58 (70) 90 07/13/20 23:05 60 21 107/66 (80) 89 07/13/20 23:03 77/49 07/13/20 23:00 89.5 64 25 81/49 (60) 89 07/13/20 23:00 22 107/66 Mechanical Ventilator 100 07/13/20 22:45 62 11 77/49 (58) 91 07/13/20 22:30 89.3 63 21 83/49 (60) 92 07/13/20 22:21 64 22 84/51 (62) 92 07/13/20 22:15 63 21 82/50 (61) 92 07/13/20 22:03 63 20 85/51 (62) 93 07/13/20 22:01 63 20 85/50 (62) 93 07/13/20 22:00 22 85/50 Mechanical Ventilator 100 07/13/20 22:00 22 85/50 Mechanical Ventilator 100 07/13/20 22:00 89.2 62 20 81/50 (60) 93 07/13/20 21:45 61 10 87/56 (66) 93 07/13/20 21:30 89.3 57 21 93/71 (78) 63 07/13/20 21:15 62 20 89/56 (67) 92 07/13/20 21:00 22 89/56 Mechanical Ventilator 100 07/13/20 21:00 20 89/56 Mechanical Ventilator 100 07/13/20 21:00 89.2 63 17 98/61 (73) 89 07/13/20 20:45 63 23 90/55 (67) 91 07/13/20 20:35 60 21 92/56 (68) 89 07/13/20 20:30 89.2 62 20 85/56 (66) 92 07/13/20 20:15 62 22 88/58 (68) 91 07/13/20 20:09 64 24 91/61 (71) 93 07/13/20 20:00 62 22 85/57 (66) 93 07/13/20 20:00 22 91/61 Mechanical Ventilator 100 07/13/20 20:00 22 91/61 Mechanical Ventilator 100 07/13/20 20:00 Mechanical Ventilator Mechanical Ventilator Mechanical Ventilator Mechanical Ventilator Mechanical Ventilator 07/13/20 20:00 100 07/13/20 20:00 63 07/13/20 19:47 89.1 64 22 80/57 (65) 95 07/13/20 19:45 63 20 82/60 (67) 94 07/13/20 19:30 63 20 90/58 (69) 95 I&O Intake and Output 07/13/20 07/14/20 19:00 07:00 Intake Total 1688.4 ml 1002.75 ml Output Total 1150 ml 310 ml Balance 538.4 ml 692.75 ml Intake Free Water 200 ml 100 ml IV Total 768.4 ml 847.75 ml Tube Feeding 660 ml 55 ml Other 60 ml Output Urine Total 1075 ml 180 ml Chest Tube Drainage Total 75 ml 130 ml # Bowel Movements 2 Dressing: saturated Cardiovascular: RSR Respiratory: decreased breath sounds Abdomen: soft, decreased bowel sounds Extremities: edema, no cyanosis Laboratory Tests Test 07/13/20 22:00 07/14/20 03:[address] [place] Urine Appearance Turbid Urine pH 5.0 (4.5-8.0) Urine Specific [place] 1.025 (1.005-1.035) Urine Protein 2+ (NEGATIVE) H Urine Glucose (UA) Negative (NEGATIVE) Urine Ketones 1+ (NEGATIVE) H Urine Blood 1+ (NEGATIVE) H Urine Nitrite Positive (NEGATIVE) H Urine Bilirubin Negative (NEGATIVE) Urine Urobilinogen 8 MG/DL (0.0-1.0) H Urine Leukocyte Esterase 1+ (NEGATIVE) H Urine RBC 2-4 /HPF (0 - 2) H Urine WBC 10-15 /HPF (0 - 2) H Urine Squamous Epithelial Cells Occasional /LPF Urine Amorphous Sediment Moderate /LPF (NONE) H Urine Bacteria Many /HPF (NONE) H White Blood Count 6.3 K/UL (4.8-10.8) Red Blood Count 2.97 M/UL (4.20-5.40) L Hemoglobin 8.9 G/DL (12.0-16.0) L Hematocrit 29.7 % (37.0-47.0) L Mean Corpuscular Volume 100 FL (80-99) H Mean Corpuscular Hemoglobin 30.0 PG (27.0-31.0) Mean Corpuscular Hemoglobin Concent 29.9 G/DL (32.0-36.0) L Red Cell Distribution Width 18.3 % (11.6-14.8) H Platelet Count 305 K/UL (150-450) Mean Platelet Volume 9.1 FL (6.5-10.1) Neutrophils (%) (Auto) 78.9 % (45.0-75.0) H Lymphocytes (%) (Auto) 11.4 % (20.0-45.0) L Monocytes (%) (Auto) 6.9 % (1.0-10.0) Eosinophils (%) (Auto) 1.6 % (0.0-3.0) Basophils (%) (Auto) 1.2 % (0.0-2.0) Sodium Level 141 MMOL/L (136-145) Potassium Level 4.7 MMOL/L (3.5-5.1) Chloride Level 106 MMOL/L (98-107) Carbon Dioxide Level 34 MMOL/L (21-32) H Anion Gap 1 mmol/L (5-15) L Blood Urea Nitrogen 17 mg/dL (7-18) Creatinine 0.4 MG/DL (0.55-1.30) L Estimat Glomerular Filtration Rate > 60 mL/min (>60) Glucose Level 134 MG/DL (74-106) H Calcium Level 7.9 MG/DL (8.5-10.1) L Phosphorus Level 3.2 MG/DL (2.5-4.9) Magnesium Level 2.2 MG/DL (1.8-2.4) Total Bilirubin 0.4 MG/DL (0.2-1.0) Aspartate Amino Transf (AST/SGOT) 82 U/L (15-37) H Alanine Aminotransferase (ALT/SGPT) 87 U/L (12-78) H Alkaline Phosphatase 168 U/L (46-116) H C-Reactive Protein, Quantitative 10.4 mg/dL (0.00-0.90) H Pro-B-Type Natriuretic Peptide 1989 pg/mL (0-125) H Total Protein 5.9 G/DL (6.4-8.2) L Albumin 1.0 G/DL (3.4-5.0) L Globulin 4.9 g/dL Albumin/Globulin Ratio 0.2 (1.0-2.7) L Plan Problems: (1) Renal insufficiency (2) Elevated d-dimer (3) Dehydration (4) LEONARDO (acute kidney injury) (5) DMII (diabetes mellitus, type 2) (6) Hypoxia (7) Pneumonia due to COVID-19 virus (8) PNA (pneumonia) (9) Pneumothorax Assessment & Plan: Bilateral pneumothorax status post bilateral chest tubes. Still on significant vent support. leak performed. Continue weaning vent. Continue with chest tubes. Will monitor and manage chest tubes accordingly. Thank you for let me to participate in patient's care Continue bilateral chest tubes on suction the airleak is worse her peak pressures are high prognosis overall is guarded. Imaging reviewed Bilateral air leaks noted high pressures continue chest tube suction recurrent right ptx tube fixed imaging pleuravac fixed tubes functional Unfortunately patient continues to be very ill on vent support with bilateral chest tubes in place. She continues to reaccumulate pneumothorax as this type functional tubes. Occasionally tubes or Pleur-evac needs to be changed and immediately shows improvement but then again declines. Prognosis is very guarded. We will continue to follow thank you for let me participate in patient's care All potential possibilities for chest tubes were managed. Pleur-evacs were changed as necessary. Imaging has been monitored. Her pneumothorax is despite functional tubes remained minimal with large air leaks noted consistently. Unfortunately since patient has declined and continues to decline and as of this evening has . Elpidio Frazier Jul 14, 2020 19:30
--- NOTE | 2020-07-15 15:39 | Discharge Summary ---
Discharge Summary Discharge Summary _ Date of admission: 06/17/2020 Date of expiration: 07/14/2020 History of Present Illness and Brief Hospital Course Ms. Roni Myers was a 70-year-old female with past medical history of hypertension, who presented to the ED for evaluation of myalgia, and shortness of breath x6 days. She was hypoxic on arrival. She was immediately placed on nonrebreather mask. Chest x-ray was notable for extensive bilateral alveolar densities, infiltrates and/or edema. Her venous duplex of legs was unremarkable for DVT. Patient received broad-spectrum antibiotics, steroids, and Lovenox in ER and was admitted to the hospital for further management. Patient tested positive for COVID-19. Given chest x-ray findings consistent with pneumonia, patient received antibiotics for pneumonia coverage. Patient continue to receive steroid and remdesivir. Given worsening hypoxia, the supplemental oxygen was switched to BiPAP. Patient was found to have bilateral subcutaneous emphysema, and pneumomediastinum, concerning for pneumothorax. BiPAP was discontinued and she was switched back to nonrebreather and high flow oxygen. Patient received Pleur-evac. However, given worsening of hypoxemia, patient was intubated and was transferred to ICU. Patient's prognosis remained grave. Patient's condition was discussed with her son. Patient's CODE STATUS was changed to DNR. Patient was found to be in asystole on the traffic monitor specialist on 07/14/2020. Unfortunately, patient was pronounced on 07/14/2020 at 1624. Cause of : Cardiopulmonary arrest Consultants: Cardiology Dr. Carreon Psychiatry Dr. Carlson Infectious disease Dr. Turpin Pulmonology Dr. Sewell Nephrology Dr. Dill Hematology oncology Dr. Taylor Final diagnoses Hypoxic and hypercapnic respiratory failure, s/p intubation Bilateral pneumothoraces Troponin elevation Hypernatremia Hypotension Leukocytosis COVID-19 pneumonia Anemia of chronic disease Thrombocytopenia Elevated D-dimer Sepsis Acute kidney injury Diabetes mellitus with hyperglycemia Pyuria, UTI Hypoalbuminemia Electrolyte imbalance Dehydration I have been assigned to dictate discharge summary for this account. Dave Smith Jul 15, 2020 15:39
--- NOTE | 2020-07-16 17:59 | NUR ---
INSURANCE FAXED CLINICALS TO [facility] T: [phone] F: [phone]
--- NOTE | 2020-07-17 14:14 | Cardiology Report ---
APPROVED REPORT EKG Measurement Heart [id number] <Conclusion> Normal sinus rhythm T wave abnormality, consider anterior ischemia Prolonged QT Abnormal ECG
== END 2020-07-14 16:24 | disposition expired | DRG 720 ==
LOC: EDBD 17:35 → EMR 17:48 → ICU 20:15 → EDBEDREQ 21:25 → 2W 06-18 06:22 → ICU 06-23 08:30
PROC: XW033E5 Introduction of Remdesivir Anti-infective into Peripheral Vein, Percutaneous Approach, New Technology Group 5 (ICD-10-PCS; 2020-06-18)
PROC: 5A1955Z Respiratory Ventilation, Greater than 96 Consecutive Hours (ICD-10-PCS; principal; 2020-06-23)
PROC: 0BH17EZ Insertion of Endotracheal Airway into Trachea, Via Natural or Artificial Opening (ICD-10-PCS; principal; 2020-06-23)
PROC: 0W9B30Z Drainage of Left Pleural Cavity with Drainage Device, Percutaneous Approach (ICD-10-PCS; 2020-06-23)
PROC: 0W9930Z Drainage of Right Pleural Cavity with Drainage Device, Percutaneous Approach (ICD-10-PCS; 2020-06-23)
PROC: 02HV33Z Insertion of Infusion Device into Superior Vena Cava, Percutaneous Approach (ICD-10-PCS; 2020-06-29)
PROC: B518ZZA Fluoroscopy of Superior Vena Cava, Guidance (ICD-10-PCS; 2020-06-29)
DX: A41.89 Other specified sepsis (principal); U07.1 COVID-19; J12.82 Pneumonia due to coronavirus disease 2019; J96.01 Acute respiratory failure with hypoxia; J96.02 Acute respiratory failure with hypercapnia; I12.9 Hypertensive chronic kidney disease with stage 1 through stage 4 chronic kidney disease, or unspecified chronic kidney disease; E11.22 Type 2 diabetes mellitus with diabetic chronic kidney disease; E11.65 Type 2 diabetes mellitus with hyperglycemia; N18.9 Chronic kidney disease, unspecified; N17.9 Acute kidney failure, unspecified; J93.9 Pneumothorax, unspecified; Z66 Do not resuscitate; E87.0 Hyperosmolality and hypernatremia; E86.0 Dehydration; I95.9 Hypotension, unspecified; D64.9 Anemia, unspecified; D69.6 Thrombocytopenia, unspecified; N39.0 Urinary tract infection, site not specified; E87.6 Hypokalemia; K21.9 Gastro-esophageal reflux disease without esophagitis; G92 Toxic encephalopathy; Z78.1 Physical restraint status; E87.70 Fluid overload, unspecified; J98.2 Interstitial emphysema
CPT/HCPCS: 36415; 36569; 71045; 74018; 76700; 76937; 80048; 80053; 80061; 80076; 81003; 82248; 82306; 82550; 82607; 82728; 82746; 82803; 82962; 82977; 83036; 83540; 83550; 83605; 83615; 83690; 83735; 83880; 84100; 84300; 84443; 84484; 84550; 85007; 85025; 85379; 85610; 85730; 86140; 86703; 86705; 86709; 86803; 86850; 86900; 86901; 87040; 87070; 87086; 87205; 87340; 93005; 93306; 93970; 94002; 94003; 94660; 96361; 96365; 96367; 96375; 99291; J1815; J3490; J7030